=== PATIENT | female | born 1945 | race Caucasian/White ===

== ENCOUNTER 2023-04-01 05:35 | Emergency (ER) | payer MEDICARE, OTHER, SELFPAY ==
[2023-04-01 05:40] VITALS: BP 183/82; PULSE 94; RESP 18; TEMP 36.6; O2SAT 98; BMI 24.5
[2023-04-01 06:25] LABS: Appearance Urine Clear; Color Urine Yellow; Glucose Urine UA Negative (Negative); Leukocyte Esterase Urine Small (1+) (Negative); Nitrite Urine Negative (Negative); PH 6.5 (5.0-9.0); UMIC TRIGGER UACC YES; Urine Blood Negative (Negative); Urine Ketones Negative (Negative); Urine Protein Negative (Neg-Trace)
--- NOTE | 2023-04-01 06:28 | PC.NURSE ---
pt from home reporting ongoing anxiety for months. pt reports being seen at [facility] multiple times and being sent home with anxiety medications. pt reports anxiety medications have provided her with no relief. pt reports having sleepless nights, being awake for hours and wandering around. pt requesting to speak with our care team for further evaluation. pt denies si/hi. urine obtained and sent to lab.
[2023-04-01 06:32] LABS: Amphetamine Screen Urine Not Detected (Not Detect); Barbiturates, Urine POSITIVE (Not Detect); Benzodiazepines Screen Urine Not Detected (Not Detect); Cannabinoid Screen Urine POSITIVE (Not Detect); Cocaine Screen Urine Not Detected (Not Detect); Fentanyl, urine Not Detected (Not Detect); Opiate Screen Urine Not Detected (Not Detect); Phencyclidine Screen Urine Not Detected (Not Detect)
--- NOTE | 2023-04-01 06:32 | ED_ITS ---
HPI - Anxiety General Chief Complaint: Anxiety Stated Complaint: Anxiety attack Time Seen by Provider: 04/01/23 06:23 Source: patient and family Mode of arrival: ambulatory Limitations: no limitations History of Present Illness HPI narrative: Patient comes to the emergency room accompanied by her son. Patient states that she has had anxiety all her life. However, over last 2 months, her anxiety has gradually been getting worse. Patient states that yesterday she was seen at [facility], seems that she was set up with a therapist? However, this morning, patient states that she woke up very anxious, pacing, patient woke up and started walking around and screaming. Patient's son brought her to the emergency room. At this time, patient is more calm, states that she is usually very independent, does not like to depend on her son, would like to feel less anxious in function normally. Patient denies depression or suicidal/homicidal ideation Related Data Allergies Allergy/AdvReac Type Severity Reaction Status Date / Time ampicillin Allergy Rash Verified 04/01/23 05:45 morphine Allergy Rash Verified 04/01/23 05:45 Penicillins Allergy Rash Verified 04/01/23 05:45 Review of Systems 2 Review of Systems: Constitutional : No Weight loss, No Fever, No Chills, No Night Sweats, No Fatigue, No Malaise ENT/Mouth : No Hearing loss, No Ear Pain, No Nasal Congestion, No Sinus Pain, No Hoarseness, No sore throat, No Rhinorrhea, No Swallowing Difficulty Eyes: No Eye Pain, No Swelling, No Redness, No Foreign Body, No Discharge, No Vision Changes Cardiovascular : No Chest Pain, No SOB, No Dyspnea on Exertion, No Orthopnea, No Edema, No Palpitations Respiratory : No Cough, No Sputum, No Wheezing, No Smoke Exposure, No Dyspnea Gastrointestinal : No Nausea, No Vomiting, No Diarrhea, No Constipation, No abdominal Pain, No Hematochezia, No Melena Genitourinary : no irregular bleeding, No Dysuria, No Urinary Frequency, No Hematuria, No Urinary Incontinence, No Urgency, No Flank Pain, No Urinary Flow Changes, No Hesitancy Musculoskeletal : No joint pain, No Myalgias, No Joint Swelling Skin : No Skin Lesions, No rash Neuro : No Weakness, No Numbness, No Paresthesias, No Loss of Consciousness, No Dizziness, No Headache Psych : Complaining of anxiety, No Depression, No SI/HI/AH/VH, No Social Issues, Heme/Lymph: No Bruising, No Bleeding,No Lymphadenopathy Endocrine : No Polyuria, No Polydipsia, No Temperature Intolerance [facility] Past Medical History Medical History (Updated 04/01/23 @ 06:36 by Daniela Bojorquez MD) Migraines Diabetes Hypertension Anxiety Social History Social History Smoked in Last 30 Days: No Use of substances other than those prescribed or required for medical reasons: No Physical Exam 2 Vital Signs: Vital Signs: Last Vital Signs Temp 97.8 F 04/01/23 05:40 Pulse 94 04/01/23 05:40 Resp 18 04/01/23 05:40 BP 183/82 H 04/01/23 05:40 Pulse Ox 98 04/01/23 05:40 O2 Del Method Room Air 04/01/23 05:40 BMI result Body Mass Index 24.5 Const: Other: Appearance: Alert. Oriented X3. No acute distress. Eyes: Pupils equal, round and reactive to light. ENT: Pharynx normal. Neck: Normal inspection. Neck supple. No lymph nodes noted. No crepitus CVS: Normal heart rate and rhythm. Pulses normal. Normal S1 and S2 Respiratory: No respiratory distress. Breath sounds normal. No Wheezing. No rales Abdomen: Soft and nontender. No rigidity. No distention. Skin: Skin warm and dry. Normal skin color. Normal skin turgor. Extremities: No lower extremity edema. No Lacerations. No Rash Neuro: Oriented X 3. No motor deficit. No sensory deficit. Moving all extremities. No slurred speech. CN 2 through 12 grossly intact Psych: calm, cooperative, a bit anxious Course Course Course Narrative: -all of patient's labs pending -care team consult pending -patient was giving 1 dose of p.o. Ativan to help with anxiety while she waits for her results and the care team -sign-out given to Dr. Leavitt Medications Administered Discontinued Medications Generic Name Dose Route Start Last Admin Trade Name Freq PRN Reason Stop Dose Admin Lorazepam 1 mg 04/01/23 06:31 04/01/23 06:42 Lorazepam 1 Mg Tablet PO 04/01/23 06:32 1 mg ONCE ONE Administration Medical Decision Making Medical Decision Making [facility] Narrative: -my interpretation of labs: Normal white blood cell count. Mildly anemic. Patient is symptomatic. Chemistry within normal limits. Urinalysis positive for a small amount of leukocyte esterase, patient has no UTI symptoms. Unlikely to be causing chronic anxiety for months in this patient. -care team consult pending -sign-out given to Dr. Leavitt Lab Data 04/01/23 06:32 04/01/23 06:32 Labs: Lab Results 04/01/23 04/01/23 04/01/23 Range/Units 06:16 06:17 06:32 WBC 6.9 (4.8-10.8) X10*3/uL RBC 4.19 L (4.20-5.50) X10*6/uL Hgb 11.5 L (12.0-16.0) g/dl Hct 35.1 L (37.0-47.0) % MCV 83.8 (80.0-98.0) fL MCH 27.4 (27.0-33.0) pg MCHC 32.8 (31.0-35.0) g/dl RDW 14.5 (11.0-16.0) % Plt Count 232 (160-400) X10*3/uL MPV 9.2 L (9.4-12.3) fL Immature Gran % (Auto) 0.3 (0.0-0.4) % Neut % (Auto) 75.4 H (45-73) % Lymph % (Auto) 13.4 L (20-40) % [place] % (Auto) 9.9 (2-11) % Eos % (Auto) 0.6 (0-4) % Baso % (Auto) 0.4 (0-2) % Lymph # (Auto) 0.9 L (1.2-4.9) X10*3/uL [place] # (Auto) 0.7 (0.1-1.2) X10*3/uL Eos # (Auto) 0.0 (0.0-0.4) X10*3/uL Baso # (Auto) 0.0 (0.0-0.2) X10*3/uL Abs Immat Gran (auto) 0.02 (0.00-0.03) X10*3/uL Absolute Neuts (auto) 5.2 (2.0-8.3) x10*3/uL Absolute Nucleated RBC 0.000 (0.0-0.012) X10*3/uL Nucleated RBC % (auto) 0.0 (0.0-0.2) /100WBC Sodium 140 (135-145) mmol/L Potassium 4.3 (3.3-5.1) mmol/L Chloride 104 (96-108) mmol/L Carbon Dioxide 24 (22-29) mmol/L Anion Gap 16 (12-20) BUN 19 H (9-16) mg/dL Creatinine 1.12 (0.5-1.4) mg/dL Estim Creat Clear Calc 29.8 Estimated GFR 47 Random Glucose 141 H (60-115) mg/dL Calcium 9.6 (8.4-10.2) mg/dL Total Bilirubin 0.5 (0.0-1.0) mg/dL AST 15 (5-31) U/L ALT 16 (0-31) U/L Alkaline Phosphatase 69 (39-117) U/L Total Protein 7.4 (6.5-8.0) g/dL Albumin 4.5 (3.5-5.0) g/dL Urine Color Yellow Urine Appearance Clear Urine pH 6.5 (5.0-9.0) Ur Specific [place] 1.010 (1.005-1.025) Urine Protein Negative (Neg-Trace) mg/dL Urine Glucose (UA) Negative (Negative) mg/dL Urine Ketones Negative (Negative) mg/dL Urine Blood Negative (Negative) Urine Nitrite Negative (Negative) Ur Leukocyte Esterase Small (1+) H (Negative) Urine RBC 0-2 (0-2) /HPF Urine WBC 0-5 (0-5) /HPF Ur Squamous Epith Cells 3-5 (0-2) /HPF Urine Bacteria None Seen (None Seen) Hyaline Casts 0-2 (0-2) /LPF Urine Opiates Screen Not Detected (Not Detect) Urine Fentanyl Screen Not Detected (Not Detect) Ur Barbiturates Screen POSITIVE H (Not Detect) Ur Phencyclidine Scrn Not Detected (Not Detect) Ur Amphetamines Screen Not Detected (Not Detect) U Benzodiazepines Scrn Not Detected (Not Detect) Urine Cocaine Screen Not Detected (Not Detect) U Marijuana (THC) Screen POSITIVE H (Not Detect) Ethyl Alcohol < 10 mg/dL Discharge Plan Discharge Clinical Impression: Anxiety Patient Disposition: Still a Patient
[2023-04-01 06:37] LABS: Bacteria Urine None Seen (None Seen); Hyaline Casts Urine 0-2 /LPF (0-2); RBC Urine 0-2 /HPF (0-2); UACC Culture Trigger YES; WBC Urine 0-5 /HPF (0-5)
[2023-04-01 06:38] LABS: Basophils Percent Auto 0.4 % (0-2); Eosinophils Percent Auto 0.6 % (0-4); Hematocrit 35.1 % (37.0-47.0); Hemoglobin 11.5 g/dl (12.0-16.0); Imm Gran Abs Auto 0.02 X10*3/uL (0.00-0.03); Imm Gran Pct Auto 0.3 % (0.0-0.4); Lymphocytes Absolute Auto 0.9 X10*3/uL (1.2-4.9); Lymphocytes Percent Auto 13.4 % (20-40); MANUAL DIFF FLAG NO; Mean Corpuscular HGB Conc 32.8 g/dl (31.0-35.0); Mean Corpuscular Hemoglobin 27.4 pg (27.0-33.0); Mean Corpuscular Volume 83.8 fL (80.0-98.0); Mean Platelet Volume 9.2 fL (9.4-12.3); Monocytes Absolute Auto 0.7 X10*3/uL (0.1-1.2); Monocytes Percent Auto 9.9 % (2-11); Neutrophils Absolute Auto 5.2 x10*3/uL (2.0-8.3); Neutrophils Percent Auto 75.4 % (45-73); Platelet Count 232 X10*3/uL (160-400); Red Blood Count 4.19 X10*6/uL (4.20-5.50); Red Cell Distribution Width 14.5 % (11.0-16.0); White Blood Count 6.9 X10*3/uL (4.8-10.8)
[2023-04-01] MEDS: LORazepam 1 MG TABLET PO ×2 (06:42→15:11)
--- NOTE | 2023-04-01 06:45 | PC.NURSE ---
pt medicated per mar at this time.
[2023-04-01 06:54] LABS: Alanine Aminotransferase 16 U/L (0-31); Albumin Level 4.5 g/dL (3.5-5.0); Alkaline Phosphatase 69 U/L (39-117); Anion Gap 16 (12-20); Aspartate Amino Transferase 15 U/L (5-31); Bilirubin Total 0.5 mg/dL (0.0-1.0); Blood Urea Nitrogen 19 mg/dL (9-16); Calcium 9.6 mg/dL (8.4-10.2); Carbon Dioxide 24 mmol/L (22-29); Chloride 104 mmol/L (96-108); Creatinine Clr Calc Pharmacy 29.8; Estimated Glomerular Filt Rate 47; Ethanol < 10 mg/dL; Glucose Random 141 mg/dL (60-115); Potassium 4.3 mmol/L (3.3-5.1); Sodium 140 mmol/L (135-145); Total Protein 7.4 g/dL (6.5-8.0)
--- OUTSIDE RECORDS SUMMARY | 2023-04-01 07:21 | XMS_ITS | Continuity of Care Document ---
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 Role Phone Jose Kang MD Primary Care Physician Encounter [facility] Date(s): 02/20/23 - 02/20/[address] [address]- Discharge Disposition: A-D/C Home Attending Physician: Gerri Araiza MD Admitting Physician: Gerri Araiza MD Referring Physician: Not on Staff, Referring MD Allergies, Adverse Reactions, Alerts Substance Reaction Severity Status ampicillin rash Active morphine GI UPSET Active penicillins RASH Active Immunizations Given and Recorded Vaccine Date Status Refusal Reason tetanus/diphtheria/pertussis, acel(Tdap) 04/25/15 Given tetanus/diphtheria/pertussis, acel(Tdap) 07/17/07 Given influenza virus vaccine, inactivated 1 01/13/12 Gi efrain influenza virus vaccine, inactivated 02/25/11 Give n influenza virus vaccine, inactivated 2 03/23/10 Gi efrain Zostavax (oldterm) 3 05/24/10 Given Pneumococcal Poly (PPV23) (oldterm) 4 01/30/09 Giv en Influenza Virus Vaccine (oldterm) 01/25/08 Given Rabies Vaccine (oldterm) 08/07/07 Given Rabies Vaccine (oldterm) 07/24/07 Given Rabies Vaccine (oldterm) 5 07/20/07 Given Rabies Vaccine (oldterm) 07/17/07 Given Rabies Immune Globulin, Human 07/17/07 Given Diphth-Tetanus Toxoids Adsorbed(oldterm) 12/09/05 Given Pneumococcal Vaccine (oldterm) 12/09/02 Given 1Admin Note: Work 2Admin Note: Work 3Admin Note: Already had shingles 08 4Admin Note: vis sheet 08-07-08 given 5Result Comment: Lot# [id number] Exp. 2010 Medications albuterol CFC free 90 mcg/inh inhalation aerosol 2, puffs, Inhalation, Every 4 hours, PRN, use with spacer chamber, # 25 Gm, Refills 0, Tot. Refills0, Maintenance, 04/29/17 22:04:27, Aerosol, Print Requisition, Compound Start Date: 04/29/17 Stop Date: 05/06/17 Status: Ordered aspirin 81 mg oral enteric coated capsule 81, mg, 1, capsule, By Mouth, Daily, 0, 0, 12/09/05 11:19:06, Print [place] Number, [id number], Constant Indicator Start Date: 12/09/05 Status: Ordered atorvastatin 20 mg oral tablet 1 tablet = 20 mg, By Mouth, Daily, 0 Refills, Maintenance, 11/14/21 19:43:00 EDT, Partial fill uponpatient request if the prescription is for a schedule II opioid drug. Start Date: 11/14/21 Status: Ordered Breo Ellipta 100 mcg-25 mcg/inh inhalation powder INHALE 1 PUFF BY MOUTH ONCE DAILY Start Date: 11/15/21 Status: Ordered calcium and vitamin D combination 600 mg-125 u oral tablet 1, tablet, By Mouth, 2 times a day, 0, 0, 12/09/05 11:19:11, Print [place] Number, [id number], Constant Indicator Start Date: 12/09/05 Status: Ordered Freestyle Lite Monitor See Instructions, # 1 each, Refills 0, Tot. Refills 0, Maintenance, use as directed for Type 1 Diabetes Mellitus ID # [id number] Group # [id number] IN# [id number], 12/18/12 14:06:15, Compound Start Date: 12/18/12 Stop Date: 01/17/13 Status: Ordered Freestyle Lite Test Strips See Instructions, # 300 each, Refills 3, Tot. Refills 3, Maintenance, use to test blood sugars three times a day for DM, 11/29/12 11:25:39, Compound Start Date: 11/29/12 Stop Date: 03/29/13 Status: Ordered gabapentin 100 mg oral capsule 100 mg, 1, capsule, By Mouth, Daily at bedtime, Refills 0, Maintenance, 11/14/21 19:45:00 EDT, Partial fill upon patient request if the prescription is for a schedule II opioid drug. Start Date: 11/14/21 Status: Ordered glipizide 5 mg oral tablet, extended release 2 tablet = 10 mg, By Mouth, Daily, # 180 tablet, 3 Refills, Maintenance, 04/04/14 15:44:00 EST, ER Tablet, [facility] 1967 Start Date: 04/04/14 Stop Date: 03/30/15 Status: Ordered Prilosec 20 mg oral enteric coated capsule 1 capsule = 20 mg, By Mouth, Daily, # 90 capsule, 3 Refills, Maintenance, EC Capsule Start Date: 05/11/12 Stop Date: 05/06/13 Status: Ordered sertraline 100 mg oral tablet 1 tablet = 100 mg, By Mouth, Daily, # 90 tablet, 3 Refills, Maintenance, 1 tablet By Mouth Daily,x90 days Start Date: 03/06/13 Stop Date: 03/01/14 Status: Ordered Trulicity Pen 0.75 mg/0.5 mL subcutaneous solution INJECT 0.75 MG SUBCUTANEOUSLY ONCE A WEEK Start Date: 11/15/21 Status: Ordered Problem List Condition Confirmation Course Effective Dates Status Health Status Informant Anxiety and depression Confirmed Active Gastritis Confirmed Active Hypercholesterolemia Confirmed Active Hypertension Confirmed 08/03/12 Active NIDDM Confirmed Active Osteopenia Confirmed Active Results Radiology Reports * Exam Date Time Procedure Performing Provider Status 02/20/23 6:[address] Abd/Pelvis W/ IV + Oral Contrast Lesli Medrano; Elayne (Verified) Notes: (CT Abd/Pelvis W/ IV + Oral Contrast) Reason For Exam: Bowel obstruction suspected;Other: RESULT: CT Abd/Pelvis W/ IV + Oral Contrast CT Abd/Pelvis W/ IV + Oral Contrast Hx of Present Illness: Upper abd pain and bloating; Reason: Other:; Bowel obstruction suspected; Clinical Question(s): Obstruction; Order Comment: TECHNIQUE: Spiral CT through the abdomen and pelvis with IV contrast formatted in 3 planes. 75 cc of Omnipaque 300 was administered intravenously. This study was performed with oral contrast. Weight-based protocol using automatic tube modulation was used to optimize exposure parameters. CTDIvol Body: 12.90 mGy, DLP Body: 618 mGy*cm. COMPARISON: 11/14/2021. FINDINGS: Fuse Maker View Findings, Lines and Tubes: None. Visualized Chest: Unchanged linear scarring in the left lower lobe. Minimal atelectasis in right lower lobe. No pleural effusion. The heart is normal in size. Unchanged trace pericardial effusion measuring 5 mm in thickness adjacent to the left ventricle. Diaphragm: Normal. Liver: Normal. Gallbladder: No CT evidence of gallbladder pathology. Bile ducts: No biliary ductal dilation. Spleen: Normal. Pancreas: Normal. Adrenal glands: Normal. Kidneys and ureters: No hydronephrosis, stones, or suspicious masses. A subcentimeter hypodensity in the right kidney interpolar region is too small to characterize by CT. Bladder: Underdistended but appears deformed. Reproductive organs: Retroverted uterus contains coarse calcifications, likely a degenerated fibroid. Stomach, small bowel, and large bowel: Normal. Appendix: Not seen, but no evidence of appendicitis. Peritoneum and retroperitoneum: No ascites or pneumoperitoneum. No omental or mesenteric lesions. Lymph nodes: No enlarged lymph nodes. Blood vessels: Mild vascular calcifications but no aneurysm. 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 No poststenotic dilatation. No evidence of venous thrombosis. Abdominal and pelvic wall: Unremarkable. Bones: No acute abnormality. Multilevel mild to moderate degenerative disc disease, most significant in the lower thoracic spine and at L5-S1. IMPRESSION: Apparent bladder wall thickening could be due to under distention or cystitis. Otherwise, no acute abnormality in the abdomen or pelvis. Unchanged trace pericardial effusion. WSN: [id number] Ordering Physician: Edwige Skinner Dictated By: Clinton Upton MD Dictated Date/Time: 02/20/23 6:30 pm Reviewed By: Clinton Upton MD Signed By: Clinton Upton MD Signed Date/Time: 02/20/23 6:30 pm Transcribed By: KATERYNA Transcribed Date/Time: 02/20/23 6:24 pm Vital Signs Most recent to oldest [Reference Range]: 1 2 3 Height 145 cm (02/20/23 9:11 PM) 145 cm (02/20/23 6:55 PM) 145 cm (02/20/23 10:40 AM) Oxygen Saturation [94-100 %] 96 % (02/20/23 9:11 PM) 97 % (02/20/23 6:55 PM) 97 % (02/20/23 12:45 PM) Pulse Rate [55-90 bpm] 91 bpm *H* (02/20/23 9:11 PM) 81 bpm (02/20/23 6:55 PM) 90 bpm (02/20/23 12:45 PM) Blood Pressure [90-138/55-84 mm Hg] 153/86mm Hg *H* (02/20/23 9:11 PM) 167/87mm Hg *H* (02/20/23 6:55 PM) 169/79mm Hg *H* (02/20/23 12:45 PM) Respiratory Rate [16-30 br/min] 16 br/min (02/20/23 9:11 PM) 18 br/min (02/20/23 6:55 PM) 18 br/min (02/20/23 12:45 PM) Temperature [96.8-100.4 DegF] 98.8 DegF (02/20/23 9:11 PM) 98.5 DegF (02/20/23 6:55 PM) 98.8 DegF (02/20/23 12:45 PM) Mode of Delivery (Oxygen) Room air (02/20/23 9:11 PM) Room air (02/20/23 6:55 PM) Room air (02/20/23 12:45 PM) Blood pressure sites Arm, left (02/20/23 9:11 PM) Arm, right (02/20/23 6:55 PM) Arm, left (02/20/23 12:45 PM) Temperature Route Oral (02/20/23 9:11 PM) Oral (02/20/23 6:55 PM) Oral (02/20/23 12:45 PM) Dry Weight 54.5 kg (02/20/23 9:11 PM) 54.5 kg (02/20/23 6:55 PM) 54.5 kg (02/20/23 10:40 AM) Social History Social History Type Response Smoking Status Former smoker entered on: 09/23/14 Sex Note * Edwige Correa: PERFORM Event Display: Patient Education Leaflets Authored Date: [id number] Diabetic Gastroparesis ?? [id number] Diabetic Gastroparesis Gastroparesis,??or??delayed gastric emptying,??is when food moves through the stomach more slowly than normal. In someone with diabetes, it???s caused by damage to the vagus nerve because of chronic high blood sugar. (Other chronic diseases may also cause gastroparesis.) The vagus nerve helps control how food moves through the digestive system. When this nerve is damaged, the movement of food is slowed down or stopped. Food that stays in the stomach for too long can cause problems. Food can ferment in the stomach, causing bacteria to grow. Undigested food can also harden into masses called bezoars. These can cause nausea and vomiting. In some cases, they may block food from passing from the stomach to the small intestine. Gastroparesis can make it hard to manage blood sugar levels. That's because it is hard to predict when a meal will actually leave the stomach to be digested. It can also cause problems with vitamins and minerals being absorbed into the body as well as maintaining a healthy weight. Symptoms of diabetic gastroparesis are: ??? Nausea ??? Vomiting ??? Feeling full after eating a small amount of food ??? Stomach??pain or cramps ??? Heartburn ??? Stomach??bloating ??? Weight loss ??? Loss of appetite ??? High or low bloodsugar levels There are several different tests and studies that can??help diagnose gastroparesis. For many people, gastroparesis is a lifelong health problem. Managing it will likely include changes in how you eat. You may be prescribed medicine to help with blood sugar levels,??help your symptoms like nausea and vomiting, or act on muscles in the digestive system. Certain medicines??that are otherwise very effective for diabetes can make gastroparesis worse and shouldn't be taken.??In severecases, surgery to put in??a feeding tube may be needed. Or a special device may be implanted to encourage the stomach muscles to contract. Home care These changes may help ease??your symptoms: ??? Take prescribed medicines exactly as directed. ??? Eat a liquid or soft diet if advised. ??? Eat frequent small meals instead of less frequent large meals. ??? Stay away from??foods that are high in fat??(such as whole milk, cheese, and fried foods)??or fiber??(such as beans, and many fruits and vegetables). These can slow digestion. ??? Always control your blood sugar levels as well as possible as directed by your healthcare provider. ?? Follow-up care Follow up with your healthcare provider as advised. Regular visits may be needed to manage gastroparesis. ?? When to get medical advice Call your healthcare provider right away if any of these occur: ??? Severe pain in your belly (abdomen) ??? Inability to keep down food or liquids ??? Weight loss ??? Other symptoms as directed by your healthcare provider ?? Last Reviewed Date: 2021 ?? [id number] [employer]. All rights reserved. This information is not intended as a substitute for professional medical care. Always follow your healthcare professional's instructions. ?? Patient Care team information Care Team Personnel Name: Jose Kang MD Position: [facility] Outreach Member Role: PCP Address: Address: [address] [place] [id number]- Name: Kaley Martinez Position: [facility] Outreach Member Role: Lifetime Consulting Physician Name: Liberty Marrero RN Position: [facility] RN Member Role: Primary Care Nurse Name: Masood Dougherty Position: [facility] ED TA [facility] Member Role: Patient Care Provider Name: Gerri Araiza MD Position: [facility] ED Medicine MD Member Role: Admitting Physician Address: Address: [address] [place] [id number]- Name: Libia Tabor RN Position: [facility] ED RN W/OE and Tasks Member Role: Patient Care Provider Name: Edwige Correa Position: [facility] Associate Professional Member Role: ED Physician Jig Builder Address: Address: [address] [place] [id number]- Name: Jevon CISNEROS , Maxime Billy Position: [facility] Physician - Infectious Disease Med Service: Infectious Disease Address: Address: [address] [place] [id number]- Name: Gerri Carter Position: [facility] ED TA [facility] Member Role: Patient Care Provider Care Team Related Persons Name: SHIVA MIRAMONTES Name: TYLER WEST Address: home [address] [place] [id number]
--- OUTSIDE RECORDS SUMMARY | 2023-04-01 07:21 | XMS_ITS | Continuity of Care Document ---
Author Name Unknown Organization [facility] ter Address [address] [place] [address]- Care Team Providers Care Loan Servicing Officer Name Role Phone Jose Kang MD Primary Care Physician Encounter [facility] Date(s): 12/10/20 - 12/10/[address] [address]- Encounter Diagnosis Back pain(Final) - 12/10/20 Discharge Disposition: A-D/C Home Attending Physician: Angela Gong MD Admitting Physician: Angela Gong MD Referring Physician: Not on Staff, Referring [...] Note: Work 3Admin Note: Already had shingles 4Admin Note: vis sheet 4-16-09 given 5Result Comment: Lot# [id number] Exp. 2010 Medications albuterol CFC free 90 [...] 0, 0, 12/09/05 11:19:06, Print [place] Number, [id number], Constant Indicator Start Date: 12/09/05 Status: Ordered calcium and vitamin D combination 600 mg-125 u oral tablet 1, tablet, By Mouth, 2 times a day, 0, 0, 12/09/05 11:19:11, Print [place] Number, [id number], Constant Indicator Start Date: 12/09/05 Status: Ordered Colace sodium 100 mg oral capsule 100 mg, 1, capsule, By Mouth, 2 times a day, Refills 0, Maintenance, 10/07/15 14:57:33 Start Date: 10/07/15 Status: Ordered ferrous sulfate 325 mg oral tablet 1 tablet = 325 mg, By Mouth, 3 times a day, 0 Refills, Maintenance, 10/07/15 14:55:48 Start Date: 10/07/15 Status: Ordered Flonase 50 mcg/inh nasal spray 1 sprays, Nares, Both, 2 times a day, # 3 each, 3 Refills, Maintenance, [place] Start Date: 08/03/12 Stop Date: 12/01/12 Status: Ordered Freestyle Lite Monitor See Instructions, # 1 each, Refills 0, Tot. Refills 0, Maintenance, use as directed for Type 1 Diabetes Mellitus ID # [id number] Group # [id number] IN# [id number], 12/18/12 14:06:15, Compound Start Date: 12/18/12 Stop Date: 01/17/13 Status: Ordered Freestyle Lite Test Strips See Instructions, # 300 each, Refills 3, Tot. Refills 3, Maintenance, use to test blood sugars three times a day for DM, 11/29/12 11:25:39, Compound Start Date: 11/29/12 Stop Date: 03/29/13 Status: Ordered glipizide 5 mg oral tablet, extended release 1 tablet = 5 mg, By Mouth, Daily, # 90 tablet, 3 Refills, Maintenance, 04/04/14 15:44:00, ER Tablet, 1 tablet By Mouth Daily,x90 days Start Date: 04/04/14 Stop Date: 03/30/15 Status: Ordered lisinopril 30 mg oral tablet 1 tablet = 30 mg, By Mouth, Daily, # 90 tablet, 2 Refills, Maintenance, 03/18/14 16:40:14, Tablet, 1 tablet By Mouth Daily,x90 days Start Date: 03/18/14 Stop Date: 12/13/14 Status: Ordered metformin 1000 mg oral tablet 1 tablet = 1,000 mg, By Mouth, 2 times a day, # 180 tablet, 3 Refills, Maintenance, 06/02/14 10:58:34, 1 tablet By Mouth 2 times a day,x90 days Start Date: 06/02/14 Stop Date: 05/28/15 Status: Ordered Pravachol 20 mg oral tablet 1 tablet, By Mouth, Daily, # 30 tablet, 11 Refills, Maintenance, 01/15/15 14:41:19, 1 tablet By Mouth Daily Start Date: 01/15/15 Stop Date: 01/10/16 Status: Ordered Prilosec 20 mg oral enteric [...] Date: 03/06/13 Stop Date: 03/01/14 Status: Ordered Vitamin B12 500 mcg/mL injectable solution 0 Refills, Maintenance, 10/07/15 14:56:01 Start Date: 10/07/15 Status: Ordered Problem List Condition Effective Dates Status Health Status Inform ant Anxiety and depression(Confirmed) Active Gastritis(Confirmed) Active Hypercholesterolemia(Confirmed) Active Hypertension(Confirmed) 08/03/12 Active NIDDM(Confirmed) Active Osteopenia(Confirmed) Active Vital Signs Most recent to oldest [Reference Range]: 1 2 3 Oxygen Saturation [94-100 %] 99 % (12/10/20 3:34 PM) 99 % (12/10/20 12:59 PM) 97 % (12/10/20 10:04 AM) Pulse Rate [55-90 bpm] 67 bpm (12/10/20 3:34 PM) 76 bpm (12/10/20 12:59 PM) 86 bpm (12/10/20 10:04 AM) Blood Pressure [90-138/55-84 mm Hg] 133/72mm Hg (12/10/20 3:34 PM) 117/72mm Hg (12/10/20 12:59 PM) 124/79mm Hg (12/10/20 10:04 AM) Respiratory Rate [16-30 br/min] 17 br/min (12/10/20 3:34 PM) 17 br/min (12/10/20 12:59 PM) 18 br/min (12/10/20 10:04 AM) Temperature [96.8-100.4 DegF] 97.7 DegF (12/10/20 3:34 PM) 98.1 DegF (12/10/20 12:59 PM) 98.7 DegF (12/10/20 10:04 AM) Mode of Delivery (Oxygen) Room air (12/10/20 3:34 PM) Room air (12/10/20 12:59 PM) Room air (12/10/20 10:04 AM) Blood pressure sites Arm, right (12/10/20 3:34 PM) Arm, left (12/10/20 10:04 AM) Temperature Route Oral (12/10/20 3:34 PM) Oral (12/10/20 12:59 PM) Oral (12/10/20 10:04 AM) Social History Social History Type Response Smoking Status Former smoker entered on: 09/23/14 Sex
--- OUTSIDE RECORDS SUMMARY | 2023-04-01 07:21 | XMS_ITS | Continuity of Care Document ---
Author Name Unknown Organization [facility] ter Address [address] [place] [id number]- Care Team Providers Care Certified Nurses Aide Name Role Phone Jose Kang MD Primary Care Physician ( [phone] Encounter [facility] Date(s): 11/14/21 - 11/15/[address] [address]- Encounter Diagnosis Acute kidney injury(Final) - 11/14/21 Hyperkalemia(Final) - 11/14/21 Discharge Disposition: A-D/C Home Attending Physician: Giselle Goss MD Admitting Physician: Carlota Alonso MD Referring Physician: Not on Staff, Referring MD Allergies, Adverse Reactions, Alerts Substance Reaction Severity Status ampicillin rash Active penicillins RASH Active morphine GI UPSET Active Immunizations Given and Recorded Vaccine Date [...] had shingles 08 4Admin Note: vis sheet 4-16-09 given 5Result Comment: Lot# [id number] Exp. 2010 Medications albuterol CFC free 90 [...] 0, 0, 12/09/05 11:19:06, Print [place] Number, [id number], Constant Indicator Start Date: 12/09/05 Status: Ordered [...] 0, 0, 12/09/05 11:19:11, Print [place] Number, [id number], Constant Indicator Start Date: 12/09/05 Status: Ordered Freestyle Lite Monitor See Instructions, # 1 each, Refills 0, Tot. Refills 0, Maintenance, use as directed for Type 1 Diabetes Mellitus ID # [id number] Group # [id number] IN# [id number], 12/18/12 14:06:15, Compound Start Date: 12/18/12 Stop [...] Refills, Maintenance, 04/04/14 15:44:00 EST, ER Tablet, [facility] 1965 Start Date: 04/04/14 Stop Date: [...] Date: 11/15/21 Status: Ordered Problem List Condition Effective Dates Status Health Status Inform ant Anxiety and depression(Confirmed) Active Gastritis(Confirmed) Active Hypercholesterolemia(Confirmed) Active Hypertension(Confirmed) 08/03/12 Active NIDDM(Confirmed) Active Osteopenia(Confirmed) Active Vital Signs Most recent to oldest [Reference Range]: 1 2 3 Oxygen Saturation [94-100 %] 100 % (11/15/21 3:00 PM) 97 % (11/15/21 11:00 AM) 98 % (11/15/21 8:00 AM) Pulse Rate [55-90 bpm] 59 bpm (11/15/21 3:00 PM) 78 bpm (11/15/21 11:00 AM) 67 bpm (11/15/21 8:00 AM) Blood Pressure [90-138/55-84 mm Hg] 106/68mm Hg (11/15/21 3:00 PM) 110/74mm Hg (11/15/21 11:00 AM) 113/67mm Hg (11/15/21 8:00 AM) Respiratory Rate [16-30 br/min] 18 br/min (11/15/21 3:00 PM) 18 br/min (11/15/21 11:00 AM) 18 br/min (11/15/21 9:00 AM) Temperature [96.8-100.4 DegF] 97.8 DegF (11/15/21 3:00 PM) 98 DegF (11/15/21 11:00 AM) 97.6 DegF (11/15/21 8:00 AM) Liters per Minute 0 L/min (11/13/21 2:52 PM) Mode of Delivery (Oxygen) Room air (11/15/21 3:00 PM) Room air (11/15/21 11:00 AM) Room air (11/15/21 8:00 AM) Blood pressure sites Arm, right (11/15/21 3:00 PM) Arm, right (11/15/21 11:00 AM) Arm, right (11/15/21 8:00 AM) Temperature Route Oral (11/15/21 3:00 PM) Oral (11/15/21 11:00 AM) Oral (11/15/21 8:00 AM) Social History Social History Type Response Smoking Status Former smoker entered on: 09/23/14 Sex
--- OUTSIDE RECORDS SUMMARY | 2023-04-01 07:22 | XMS_ITS | Continuity of Care Document ---
Author Name Unknown Organization [facility] ter Address [address] [place] [id number]- Care Team Providers Care Casing Machine Operator Name Role Phone Jose Kang MD Primary Care Physician Encounter [facility] Date(s): 10/06/21 - 10/06/[address] [address] Discharge Disposition: A-D/C Home Attending Physician: Funmi Villalobos MD Admitting Physician: Funmi Villalobos MD Referring Physician: Tobias Mari MD Allergies, Adverse Reactions, Alerts Substance Reaction [...] vis sheet 4-16-09 given 5Result Comment: Lot# [id number] Exp. 2010 Medications albuterol CFC free 90 [...] 0, 0, 12/09/05 11:19:06, Print [place] Number, [id number], Constant Indicator Start Date: 12/09/05 Status: Ordered calcium and vitamin D combination 600 mg-125 u oral tablet 1, tablet, By Mouth, 2 times a day, 0, 0, 12/09/05 11:19:11, Print [place] Number, [id number], Constant Indicator Start Date: 12/09/05 Status: Ordered [...] day, # 3 each, 3 Refills, Maintenance, [place] Start Date: 08/03/12 Stop Date: 12/01/12 Status: Ordered Freestyle Lite Monitor See Instructions, # 1 each, Refills 0, Tot. Refills 0, Maintenance, use as directed for Type 1 Diabetes Mellitus ID # [id number] Group # [id number] IN# [id number], 12/18/12 14:06:15, Compound Start Date: 12/18/12 Stop [...] Hypertension(Confirmed) 08/03/12 Active NIDDM(Confirmed) Active Osteopenia(Confirmed) Active Social History Social History Type Response Smoking Status Former smoker entered on: 09/23/14 Sex
[2023-04-01 07:37] VITALS: BP 132/67; PULSE 80; RESP 16; TEMP 36.9; O2SAT 95
--- NOTE | 2023-04-01 07:42 | PC.NURSE ---
assumed care of pt at 0700. pt a&o x4, pleasant, calm, and cooperative. pt resting quietly on stretcher, sts her anxiety has decreased since arriving here and taking ativan. pt sts I don't want to swallow my tongue anymore . pt offers no complaints dank. rr even/unlabored. call joseph within pt reach. plan of care ongoing. awaiting care team consult.
[2023-04-01 14:27] VITALS: BP 154/94; PULSE 88; RESP 18; O2SAT 95
[2023-04-01 15:23] VITALS: BP 164/88; PULSE 90; RESP 16; TEMP 37; O2SAT 98
--- NOTE | 2023-04-01 15:27 | MHC.EDTECH ---
this pct assumed care of pt at 1500 ,vitals taken and blood sugar check ,Patient belongings list done .
--- NOTE | 2023-04-01 15:30 | PC.NURSE ---
pt c/o anxiousness, asking for something to help calm down. pt medicated with ativan per jun. pt resting quietly. pt told t/w she is a diabetic. poc taken 103. pt asking for something to eat but sts she cannot have solids because she has difficulty tolerating. asking for something soft/thick. diabetic diet placed.
--- NOTE | 2023-04-01 16:01 | PC.NURSE ---
pt med rec completed. pt currently sleeping on stretcher, in no apparent distress. rr even/unlabored. call joseph within pt reach.
[2023-04-01 17:05] LABS: Glucose, Whole Blood 103 mg/dL (60-115)
[2023-04-01 17:51] LABS: Glucose, Whole Blood 72 mg/dL (60-115)
--- NOTE | 2023-04-01 17:53 | PC.NURSE ---
poc noted to be trending lower. called kitchen to request expedited tray with ensure for pt since she cannot tolerate solids dank. in meantime pt provided with pudding. pt within eye of t/w. pt speaking in full complete sentences, color normal, appears well. wctm. plan of care ongoing.
--- NOTE | 2023-04-01 18:04 | MHC.CARE ---
Patient accepted to [facility] ([phone]) at [address] [place] for admission at 7:00 pm tonight, must have medications in original bottles.
[2023-04-01 19:37] VITALS: BP 136/74; PULSE 76; RESP 16; TEMP 36.1; O2SAT 97
--- NOTE | 2023-04-01 19:50 | MHC.EDTECH ---
Patient ate 50 % of meal drink 240 ml fluids ,vitals taken before Pt discharge .
== END 2023-04-01 19:53 | disposition other institution (70) ==
PROVIDERS: Emergency Provider Emergency Medicine; PCP Internal Medicine
DX: F41.9 Anxiety disorder, unspecified (principal); R82.90 Unspecified abnormal findings in urine; D64.9 Anemia, unspecified; I10 Essential (primary) hypertension; E11.9 Type 2 diabetes mellitus without complications; F12.90 Cannabis use, unspecified, uncomplicated; Z79.899 Other long term (current) drug therapy
CPT/HCPCS: 36415; 80053; 80307; 81001; 82947; 85025; 87086; 99284; S9485

== ENCOUNTER 2024-10-08 11:11 | Outpatient (REF) | payer OTHER, SELFPAY ==
--- OUTSIDE RECORDS SUMMARY | 2024-10-08 12:54 | XMS_ITS | Clinical Summary ---
Author Organization [facility] Address [address] [place] [address] Care Team Providers Care Landscaping Specialist Name Role Phone Unavailable Primary Care Provider Unavailabl e Source Comments PLEASE NOTE, if this patient is a minor, it may be UNLAWFUL to discuss sensitive information that is contained in these records (such as FAMILY PLANNING, MENTAL HEALTH or SUBSTANCE ABUSE) with the minor patient's parent or other person without the patient's specific authorization.[facility] Medications No known medications Active Problems No known active problems Encounters Date Type Department Care Team Description 09/03/2024 3:40 PM EDT Office Visit [address] [phone] Milan Lu DDS Abfraction (Primary Dx) 08/02/2024 10:00 AM EDT Office Visit [address] [phone] Marcin Carcamo Bruxism (teeth grinding) (Primary Dx); Abfraction; 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 from Last 3 Months Social History Tobacco Use Types Packs/Day Years Used Date Smoking Tobacco: Former Cigarettes Passive Smoke Exposure: Never Smokeless Tobacco: Never Tobacco Cessation:Counseling Given: Not Answered Social Connections Answer Date Recorded Connectedness 0 01/11/2024 Financial Resource Strain Answer Date R ecorded Financial Resource Strain 0 2022 Stress Answer Date Recorded Stress 0 12/09/2022 Physical Activity Answer Date Recorded Physical Activity 0 12/09/2022 Food Insecurity Answer Date Recorded Food 0 01/18/2024 Transportation Needs Answer Date Record ed Transportation 0 12/09/2022 Housing Stability Answer Date Recorded Housing 0 12/09/2022 Safety and Environment Answer Date Alexei rded Safety 0 12/09/2022 Utilities Answer Date Recorded Utilities 0 12/09/2022 Employment Answer Date Recorded Stress 0 01/11/2024 Comments Unknown Sex and Gender Information Value Date Recorded Sex Assigned at Not on file Legal Sex Female 11:30 AM PDT Gender Identity Not on file Sexual Orientation Not on file Last Filed Vital Signs Vital Sign Reading Time Taken Comments Blood Pressure 153/87 09/03/2024 3:47 PM EDT Pulse 91 09/03/2024 3:47 PM EDT Temperature - - Respiratory Rate - - Oxygen Saturation - - Inhaled Oxygen Concentration - - Weight - - Height - - Body Mass Index - - Plan of Treatment Upcoming Encounters Date Type Department Care Team (Late st Contact Info) Description 02/04/2025 10:20 AM EDT Office Visit [facility] [address] [place] [phone] Yash Garcias, [facility] [address] [place] [address] Health Maintenance Due Date Last Done Comments Hepatitis C Screening 1945 Medicare Annual Wellness Visit 12/24/1965 Imm-Zoster, Recombinant (2 of 3) 07/19/2010 05/24/19 11 Bone Density Screening 12/24/2012 Falls Prevention 12/24/2012 Dental BW 12/12/2023 12/09/2022 [id number] ( season) 2023 021 Alcohol and Drug Screen 04/24/2024 Depression Annual Screen 04/24/2024 Imm-Influenza (Season Ended) 12/23/202408/2022, 01/05/2022, 01/21/2021, Additional history exists Tobacco Screening 08/02/2025 08/02/2024 Dental Examination 08/04/2025 08/02/2024, 12/09/2022 Dental Perio Charting 08/04/2025 08/02/2024 Dental Prophy 08/04/2025 08/02/2024, 12/09/2022 Hypertension Screening (#1) 09/03/2025 Imm-DTaP/Tdap/Td (4 - Td or Tdap) 10/20/2027 10/19/2017, 04/25/2015, 07/17/2007 Dental FMX/Pano 12/12/2027 12/09/2022 Imm-Pneumococcal 65+ Completed 01/17/2019, 03/12/2015, 01/30/2009, Additional history exists Procedures Procedure Name Priority Date/Time Associated Diagnosis Comments 7 F(V) RESIN-BASED COMPOSITE ONE SURFACE ANTERIOR Routine 09/03/2024 3:40 PM EDT Abfraction 6 F(V) RESIN-BASED COMPOSITE ONE SURFACE ANTERIOR Routine 09/03/2024 3:40 PM EDT Abfraction 5 B(V) RESIN-BASED COMPOSITE - ONE SURFACE POSTERIOR Routine 09/03/2024 3:40 PM EDT Abfraction 9 F(V) RESIN-BASED COMPOSITE ONE SURFACE ANTERIOR Routine 09/03/2024 3:40 PM EDT Abfraction 8 F(V) RESIN-BASED COMPOSITE ONE SURFACE ANTERIOR Routine 09/03/2024 3:40 PM EDT Abfraction PERIODIC ORAL EVALUATION ESTABLISHED PATIENT Routine 08/02/2024 10:00 AM EDT Bruxism (teeth grinding) 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 DENTAL CASE MANAGEMENT - MOTIVATIONAL INTV Routine 08/02/2024 10:00 AM EDT Bruxism (teeth grinding) 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 PROPHYLAXIS - ADULT Routine 08/02/2024 1 0:00 AM EDT Bruxism (teeth grinding) 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 COMP PERIODONTAL EVALUATION - NEW/EST PATIENT Routine 08/02/2024 10:00 AM EDT Bruxism (teeth grinding) 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 CARIES RISK ASSESSMENT & DOC FINDING HIGH RISK Routine 08/02/2024 10:00 AM EDT Bruxism (teeth grinding) 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 NUTRITIONAL COUNSELING CONTROL OF DENTAL DISEASE Routine 08/02/2024 10:00 AM EDT Bruxism (teeth grinding) 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 ORAL HYGIENE INSTRUCTIONS Routine 08/02/2024 10:00 AM EDT Bruxism (teeth grinding) 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 - [facility]
== END 2024-10-08 11:12 | disposition home or self-care (01) ==
LOC: HO.LAB 11:11
PROVIDERS: PCP Internal Medicine; Visit Provider Psychiatry & Neurology Neurology
DX: Z13.89 Encounter for screening for other disorder (principal)

== ENCOUNTER 2024-10-10 10:01 | Outpatient (REF) | payer OTHER, SELFPAY ==
[2024-10-10 10:48] LABS: Estimated Average Glucose 163 mg/dL; Hemoglobin A1c % 7.3 % (<6.0)
--- OUTSIDE RECORDS SUMMARY | 2024-10-10 11:16 | XMS_ITS | Continuity of Care Document ---
Author Name Elpidio Medina Address [address] [place] [id number] Organization Unknown Address [address] [place] [address] Medications No known medications Problems No known problems
[2024-10-10 11:58] LABS: Iron 60 mcg/dL (30-160); Percent Iron Saturation 25 % (15-50); Total Iron Binding Capacity 238 mcg/dL (228-428); Unsaturated Iron Binding 178 ug/dL
== END 2024-10-10 10:02 | disposition home or self-care (01) ==
LOC: HO.LAB 10:01
PROVIDERS: PCP Internal Medicine; Visit Provider Psychiatry & Neurology Neurology
DX: G62.9 Polyneuropathy, unspecified (principal); Z13.1 Encounter for screening for diabetes mellitus
CPT/HCPCS: 36415; 83036; 83540

== ENCOUNTER 2024-10-20 18:39 | Inpatient (IN) | payer OTHER, SELFPAY ==
--- NOTE | ~2024-10-20 | CT_ITS ---
CLINICAL HISTORY: fall with injury --- Additional Notes or Special Instructions: and neck CT of the head without contrast. No comparison. Findings: There are [id number] nonspecific white matter changes. No acute hemorrhage or definite acute infarct is seen. There is no hydrocephalus or mass effect. Impression: No acute hemorrhage. This document has been electronically signed by: Richard Cespedes MD on 11/04/2024 17:42:15
--- NOTE | ~2024-10-20 | XR_ITS ---
EXAMINATION: XR ABDOMEN 1 VIEW (KUB) HISTORY: constipation COMPARISON: There are no prior studies available for comparison. FINDINGS: A single supine view of the abdomen is submitted. The bowel gas pattern is unremarkable, without evidence of mechanical obstruction. There is a large amount of stool throughout the colon. Calcifications in the left hemipelvis likely represent uterine fibroids. There are no abnormal soft tissue masses. There is degenerative disc disease of the spine. XR/XR KUB IMPRESSION: Large amount of stool throughout the colon. Electronically signed by: Sam Saini MD 11/06/2024 09:34 AM EDT
--- NOTE | ~2024-10-20 | XR_ITS ---
EXAMINATION: XR HIP 1 VIEW LEFT WITH PELVIS HISTORY: Fall with pain COMPARISON: There are no prior studies available for comparison. FINDINGS: Two AP views of the pelvis and two views of the left hip are submitted. Osseous mineralization is normal. There is no fracture or dislocation. The joint space is maintained. Calcifications in the left hemipelvis are likely related to a uterine fibroid. XR/XR hip LT w PEL1V IMPRESSION: Unremarkable examination of the left hip. Electronically signed by: Sam Saini MD 11/05/2024 11:13 AM EDT
--- NOTE | ~2024-10-20 | CT_ITS ---
CLINICAL HISTORY: Fall, head injury CT of the cervical spine without contrast. No comparison. Findings: No acute fractures are seen. There are prominent degenerative changes. There is minimal anterior subluxation of C7 on T1. There is prominent multilevel spinal and foraminal stenosis. There are changes of emphysema. Impression: No acute fractures. This document has been electronically signed by: Richard Cespedes MD on 11/04/2024 18:06:34
--- NOTE | ~2024-10-20 | XR_ITS ---
CLINICAL HISTORY: congestion, cough, dec O2 sat Exam: PA and lateral views of the chest. Comparison: CT of the abdomen November 02, 2024. Findings: Lungs are well inflated. Cardiac silhouette is within normal limits. Hazy areas of focal increased density are seen within the right perihilar region, likely within the right middle lobe. No infiltrates within the left lung. Question tiny bilateral pleural effusions versus pleural thickening. Impression: Hazy right middle lobe density most characteristic of focal pneumonitis. This document has been electronically signed by: Cosme Lara MD on 12/14/2024 10:15:25
--- NOTE | ~2024-10-20 | CT_ITS ---
EXAMINATION: CT HEAD WITHOUT IV CONTRAST HISTORY: post fall SANDOVAL/? intracranial bleed. TECHNIQUE: Unenhanced helical CT of the head was performed per standard departmental protocol. Coronal and sagittal reformats of the head were also evaluated. One or more of the following techniques was used for dose reduction: Automated exposure control, adjustment of the mA and/or kV according to patient size, use of iterative reconstruction technique. DLP: 635 mGy-cm COMPARISON: Comparison is made with the prior examination dated 11/04/2024. FINDINGS: BRAIN: There is mild prominence of the ventricular system and cortical sulci, consistent with atrophy. Periventricular and subcortical white matter hypodensities are noted which are nonspecific, but often seen in the setting of small vessel ischemic disease. There is no mass effect or midline shift. No intra- or extra-axial fluid collections are identified. SINUSES: The visualized paranasal sinuses are clear. The mastoid air cells and middle ear cavities are well pneumatized. ORBITS: The visualized orbits are unremarkable. BONES/SOFT TISSUES: There is left frontal soft tissue swelling.. The calvarium is intact. No suspicious lytic or sclerotic lesions. CT/CT head/brain wo IV con IMPRESSION: Left frontal soft tissue swelling. No acute intracranial abnormality. Electronically signed by: Sam Saini MD 11/08/2024 03:18 PM EDT
--- NOTE | ~2024-10-20 | CT_ITS ---
CLINICAL HISTORY: abdominal pain, N V CT ABDOMEN AND PELVIS WITHOUT CONTRAST COMPARISON: None provided. FINDINGS: Lack of IV contrast lowers the sensitivity of the exam. No evidence of a small-bowel obstruction. No free air. Jztcyvec-tj-gorqd amount of stool is noted within the colon. No pericolonic inflammation. Post appendectomy changes are present. Moderate amount of stool is noted in the rectum. Images of the lung bases demonstrate mild bibasilar atelectasis. Small pericardial effusion is noted. Distal esophagus is underdistended which limits assessment. Stomach is mildly distended with enteric contents and some gas. No focal liver lesion. Gallbladder is underdistended. No visible stone. There is mild prominence of the pancreatic duct without focal lesion. No CT evidence of acute pancreatitis. Duodenal diverticulum is noted. Spleen is unremarkable. Mild thickening of the adrenal glands is noted. Mild nonspecific perinephric stranding is noted bilaterally. No renal calculi for hydronephrosis. No calculi in the ureters and urinary bladder. Calcified phleboliths are noted in the pelvis. Urinary bladder is underdistended which limits assessment. Retroverted uterus is noted. Calcifications within the uterus measure approximately 1.1 cm in aggregate on sagittal image 54 and suggest a small fibroid or fibroids. Calcific plaque is noted in the abdominal aorta, without evidence of an aneurysm. No lymphadenopathy. No evidence of a bowel containing hernia. Bone windows demonstrate degenerative changes in the hips and visualized spine. IMPRESSION: 1. No evidence of a bowel obstruction or free air. No pericolonic inflammation. 2. Kniweduy-wb-tzygx amount of stool in the colon. Moderate amount of stool in the rectum. 3. Mild bibasilar atelectasis. Small pericardial effusion. 4. There is a small uterine fibroid or fibroids. 5. Additional findings are detailed above. This document has been electronically signed by: Baudilio Birch M.D. on 11/02/2024 22:23:50
[2024-10-20 19:12] VITALS: BP 146/60; PULSE 102; O2SAT 96
[2024-10-20 19:21] VITALS: BP 103/39; PULSE 93; RESP 20; TEMP 36.9; O2SAT 96; BMI 21.9
[2024-10-20 20:09] LABS: Appearance Urine Clear; Glucose Urine UA Negative (Negative); PH 7.0 (5.0-9.0); Specific Gravity - Urine 1.010 (1.005-1.025); UMIC TRIGGER UACC YES
[2024-10-20 20:14] LABS: UACC Culture Trigger YES
[2024-10-20 20:20] LABS: Cannabinoid Screen Urine Not Detected (Not Detect)
[2024-10-20 21:50] LABS: Hematocrit 31.3 % (37.0-47.0); Hemoglobin 10.8 g/dl (12.0-16.0); Imm Gran Abs Auto 0.02 X10*3/uL (0.00-0.03); Imm Gran Pct Auto 0.3 % (0.0-0.4); Lymphocytes Absolute Auto 2.3 X10*3/uL (1.2-4.9); MANUAL DIFF FLAG NO; Mean Corpuscular HGB Conc 34.5 g/dl (31.0-35.0); Mean Corpuscular Hemoglobin 29.6 pg (27.0-33.0); Mean Corpuscular Volume 85.8 fL (80.0-98.0); NRBC Abs Auto 0.000 X10*3/uL (0.0-0.012); NRBC Pct Auto 0.0 /100WBC (0.0-0.2); Platelet Count 213 X10*3/uL (160-400); Red Blood Count 3.65 X10*6/uL (4.20-5.50); White Blood Count 7.6 X10*3/uL (4.8-10.8)
[2024-10-20 22:03] LABS: Anion Gap 13 (12-20); Blood Urea Nitrogen 33 mg/dL (9-16); Calcium 9.3 mg/dL (8.4-10.2); Carbon Dioxide 23 mmol/L (22-29); Chloride 108 mmol/L (96-108); Creatinine Clr Calc Pharmacy 26.9; Estimated Glomerular Filt Rate 46; Potassium 4.2 mmol/L (3.3-5.1); Sodium 140 mmol/L (135-145)
--- NOTE | 2024-10-20 23:27 | ED.PSYCH ---
HPI - Psych General Chief Complaint: Psychiatric Symptoms Stated Complaint: DEPRESSIVE THOUGHT HX2YRS PLAN TO OVERDOSE Time Seen by Provider: 10/20/24 20:52 Source: patient and EMS Mode of arrival: EMS Limitations: no limitations History of Present Illness ED Provider: Dr. Daniela Bojorquez HPI Narrative: patient comes to the emergency room via ambulance from home. According to EMS, patient lives at home alone, her son was at home with her and patient made SI statements. Therefore, the patient called 911. On arrival to the emergency room, patient states that she was angry today, denies SI or HI. Patient states that she wants to go home to take care of her dog Related Data Home Medications ?Medication ?Instructions ?Recorded ?Confirmed atorvastatin 20 mg tablet 20 mg PO DAILY 04/01/23 10/21/24 ondansetron HCl 4 mg tablet 4 mg PO Q8H PRN nausea 04/01/23 10/21/24 pantoprazole 40 mg tablet,delayed 40 mg PO BID@0630,1630 04/01/23 10/21/24 release sitagliptin phosphate 100 mg 100 mg PO DAILY 04/01/23 10/21/24 tablet (Januvia) albuterol sulfate 90 mcg/actuation 2 puff inhalation Q4-6H PRN 10/21/24 10/21/24 aerosol inhaler Shortness Of Breath Or Wheezing amlodipine 2.5 mg tablet 2.5 mg PO DAILY 10/21/24 10/21/24 duloxetine 20 mg capsule,delayed 40 mg PO DAILY 10/21/24 10/21/24 release fluticasone furoate 100 1 ea inhalation DAILY 10/21/24 10/21/24 mcg-vilanterol 25 mcg/dose inhalation powder (Breo Ellipta) gabapentin 100 mg capsule 100 mg PO TID 10/21/24 10/21/24 gabapentin 600 mg tablet 600 mg PO BEDTIME 10/21/24 10/21/24 glipizide 2.5 mg tablet, extended 2.5 mg PO DAILY 10/21/24 10/21/24 release 24 hr lamotrigine 100 mg tablet 100 mg PO DAILY 10/21/24 10/21/24 lisinopril 20 mg tablet 20 mg PO DAILY 10/21/24 10/21/24 lorazepam 0.5 mg tablet 0.25 mg PO BID 10/21/24 10/21/24 mirtazapine 45 mg tablet 45 mg PO BEDTIME 10/21/24 10/21/24 olanzapine 2.5 mg tablet 2.5 mg PO BEDTIME 10/21/24 10/21/24 pramipexole 0.25 mg tablet 0.25 mg PO BID 10/21/24 10/21/24 propranolol 20 mg tablet 20 mg PO DAILY 10/21/24 10/21/24 Allergies Allergy/AdvReac Type Severity Reaction Status Date / Time ampicillin Allergy Rash Verified 10/20/24 19:28 morphine Allergy Rash Verified 10/20/24 19:28 Penicillins Allergy Rash Verified 10/20/24 19:28 Review of Systems Review of Systems: Constitutional : No Weight loss, No Fever, No Chills, No Night Sweats, No Fatigue, No Malaise ENT/Mouth : No Hearing loss, No Ear Pain, No Nasal Congestion, No Sinus Pain, No Hoarseness, No sore throat, No Rhinorrhea, No Swallowing Difficulty Eyes: No Eye Pain, No Swelling, No Redness, No Foreign Body, No Discharge, No Vision Changes Cardiovascular : No Chest Pain, No SOB, No Dyspnea on Exertion, No Orthopnea, No Edema, No Palpitations Respiratory : No Cough, No Sputum, No Wheezing, No Smoke Exposure, No Dyspnea Gastrointestinal : No Nausea, No Vomiting, No Diarrhea, No Constipation, No abdominal Pain, No Hematochezia, No Melena Genitourinary : no irregular bleeding, No Dysuria, No Urinary Frequency, No Hematuria, No Urinary Incontinence, No Urgency, No Flank Pain, No Urinary Flow Changes, No Hesitancy Musculoskeletal : No joint pain, No Myalgias, No Joint Swelling Skin : No Skin Lesions, No rash Neuro : No Weakness, No Numbness, No Paresthesias, No Loss of Consciousness, No Dizziness, No Headache Psych : No Anxiety/Panic, No Depression, No SI/HI/AH/VH, patient admits that earlier today she made SI statements because she was angry but did not mean it Heme/Lymph: No Bruising, No Bleeding,No Lymphadenopathy Endocrine : No Polyuria, No Polydipsia, No Temperature Intolerance PMFSH Past Medical History Medical History Migraines Diabetes Hypertension Anxiety Social History Social History Advance Directives: No Advance Directives Information Provided: No Physical Exam Vital Signs: Vital Signs: Last Vital Signs Temp 98 F 10/21/24 16:26 Pulse 99 10/21/24 16:26 Resp 20 10/21/24 16:26 BP 148/71 H 10/21/24 16:48 Pulse Ox 99 10/21/24 16:26 O2 Del Method Room Air 10/21/24 16:26 BMI result Body Mass Index 21.9 Const: Other: Appearance: Alert. Oriented X3. No acute distress. Eyes: Pupils equal, round and reactive to light. ENT: Pharynx normal. Neck: Normal inspection. Neck supple. No lymph nodes noted. No crepitus CVS: Normal heart rate and rhythm. Pulses normal. Normal S1 and S2 Respiratory: No respiratory distress. Breath sounds normal. No Wheezing. No rales Abdomen: Soft and nontender. No rigidity. No distention. Skin: Skin warm and dry. Normal skin color. Normal skin turgor. Extremities: No lower extremity edema. No Lacerations. No Rash Neuro: Oriented X 3. No motor deficit. No sensory deficit. Moving all extremities. No slurred speech. CN 2 through 12 grossly intact Psych: calm, cooperative, a bit anxious, keeps stating that she was driven home Course Course Course Narrative: My interpretation of labs: No significant abnormality in patient's hematology and chemistry, urinalysis is negative for UTI, patient has no symptoms of UTI. patient admits that she made SI statements but states that she did not mean them. Patient states it was secondary to being angry. Patient states that she is very dependent, makes her own decisions, admits that she has history of depression but she is not suicidal. Patient is very upset that her daughter wants her to be admitted to the hospital. patient would like to have a 2nd opinion from the care team or Psychiatry Reevaluation(s) Reevaluation #1: Time: 09:53 Date: 10/21/24 Provider: Ayanna Molina, DO Patient in physician observation for psychiatric evaluation.? No acute events reported overnight. No current complaints. VS stable.? Patient is in bed search status. Will continue to monitor. Reevaluation #2: Time: 16:57 Date: 10/21/24 Provider: Ayanna Molina DO Physician observation ended at 457pm. Patient to be admitted as inpatient to psychiatry. Medications Administered Generic Name Dose Route Start Last Admin Trade Name Freq PRN Reason Stop Dose Admin Acetaminophen 650 mg 10/21/24 16:31 10/21/24 16:47 Acetaminophen 325 Mg Tablet PO 650 mg Q6H PRN Administration Headache/Pain, Scale 1-10 Atorvastatin Calcium 20 mg 10/21/24 15:45 10/21/24 16:47 Atorvastatin Calcium 20 Mg Tablet PO 20 mg DAILY RICHARD Administration Lisinopril 20 mg 10/21/24 15:45 10/21/24 16:48 Lisinopril 20 Mg Tablet PO 20 mg DAILY RICHARD Administration Protocol Ondansetron HCl 4 mg 10/21/24 15:37 10/21/24 16:48 Ondansetron Odt 4 Mg Tab.Rapdis TRANSLINGU 4 mg Q8H PRN Administration Nausea Discontinued Medications Generic Name Dose Route Start Last Admin Trade Name Freq PRN Reason Stop Dose Admin Acetaminophen 650 mg 10/21/24 01:24 10/21/24 01:29 Acetaminophen 325 Mg Tablet PO 10/21/24 01:25 650 mg ONCE ONE Administration Amlodipine Besylate 5 mg 10/21/24 01:08 10/21/24 01:22 Amlodipine Besylate 5 Mg Tablet PO 10/21/24 01:09 5 mg ONCE ONE Administration Protocol Calcium Carbonate 750 mg 10/21/24 02:22 10/21/24 02:26 Calcium Carbonate 750 Mg Tab.Chew PO 10/21/24 02:23 750 mg ONCE ONE Administration Gabapentin 300 mg 10/21/24 03:44 10/21/24 03:49 Gabapentin 300 Mg Capsule PO 10/21/24 03:45 300 mg ONCE ONE Administration Hydroxyzine HCl 50 mg 10/20/24 23:34 10/21/24 00:20 Hydroxyzine Hcl 50 Mg Tablet PO 10/20/24 23:35 50 mg ONCE ONE Administration Lisinopril 20 mg 10/21/24 01:19 10/21/24 01:22 Lisinopril 20 Mg Tablet PO 10/21/24 01:20 20 mg ONCE ONE Administration Protocol Lorazepam 0.5 mg 10/21/24 03:45 10/21/24 03:49 Lorazepam 0.5 Mg Tablet PO 10/21/24 03:46 0.5 mg ONCE ONE Administration Medical Decision Making Medical Decision Making MDM Narrative: the care team evaluated the patient. Recommendation for now is inpatient bed search. However, patient is completely alert and oriented x3, coherent. Patient states that she does not agree with the care team evaluation. Patient states that she is not suicidal or homicidal. Patient lives by herself and makes her own medical decisions. Patient is requesting that she gets evaluated again in the morning and wants to be discharged. Patient states that she admits that she made SI comments but that is because she was very angry. Admits that this was the wrong thing to say. However, patient is adamant that she is not SI or HI. Patient states that she does not want her daughter making any decisions regarding a psychiatric hospitalization. I discussed with the patient that we will request a 2nd opinion in the morning. Patient agrees to stay until the morning to be re-evaluated. a 2nd care team evaluation has been placed. Differential Diagnosis Differential Diagnoses: The differential diagnosis associated with the presentation includes ( Anxiety, depression, suicidal ideation) Admission/Observation Consideration of admission/observation: Escalation of care including admission/observation considered ( patient is on a Section 12, care team waiting to talk to the patient's to ensure patient can be discharged safely home) Lab Data MDM Lab Attestation statement: I reviewed the patient's lab results. 10/20/24 21:45 10/20/24 21:45 Labs: Lab Results 10/20/24 10/20/24 Range/Units 19:59 21:45 WBC 7.6 (4.8-10.8) X10*3/uL RBC 3.65 L (4.20-5.50) X10*6/uL Hgb 10.8 L (12.0-16.0) g/dl Hct 31.3 L (37.0-47.0) % MCV 85.8 (80.0-98.0) fL MCH 29.6 (27.0-33.0) pg MCHC 34.5 (31.0-35.0) g/dl RDW 13.6 (11.0-16.0) % Plt Count 213 (160-400) X10*3/uL MPV 8.7 L (9.4-12.3) fL Immature Gran % (Auto) 0.3 (0.0-0.4) % Neut % (Auto) 58.4 (45-73) % Lymph % (Auto) 29.8 (20-40) % [place] % (Auto) 9.9 (2-11) % Eos % (Auto) 1.1 (0-4) % Baso % (Auto) 0.5 (0-2) % Lymph # (Auto) 2.3 (1.2-4.9) X10*3/uL [place] # (Auto) 0.8 (0.1-1.2) X10*3/uL Eos # (Auto) 0.1 (0.0-0.4) X10*3/uL Baso # (Auto) 0.0 (0.0-0.2) X10*3/uL Abs Immat Gran (auto) 0.02 (0.00-0.03) X10*3/uL Absolute Neuts (auto) 4.4 (2.0-8.3) x10*3/uL Absolute Nucleated RBC 0.000 (0.0-0.012) X10*3/uL Nucleated RBC % (auto) 0.0 (0.0-0.2) /100WBC Sodium 140 (135-145) mmol/L Potassium 4.2 (3.3-5.1) mmol/L Chloride 108 (96-108) mmol/L Carbon Dioxide 23 (22-29) mmol/L Anion Gap 13 (12-20) BUN 33 H (9-16) mg/dL Creatinine 1.15 (0.5-1.4) mg/dL Estim Creat Clear Calc 26.9 Estimated GFR 46 Random Glucose 96 (60-115) mg/dL Calcium 9.3 (8.4-10.2) mg/dL Urine Color Yellow Urine Appearance Clear Urine pH 7.0 (5.0-9.0) Ur Specific [place] 1.010 (1.005-1.025) Urine Protein Negative (Neg-Trace) mg/dL Urine Glucose (UA) Negative (Negative) mg/dL Urine Ketones Negative (Negative) mg/dL Urine Blood Negative (Negative) Urine Nitrite Negative (Negative) Ur Leukocyte Esterase Large (3+) H (Negative) Urine RBC 0-2 (0-2) /HPF Urine WBC 21-50 H (0-5) /HPF Ur Squamous Epith Cells 0-2 (0-2) /HPF Urine Bacteria Trace (None Seen) Hyaline Casts 0-2 (0-2) /LPF Urine Opiates Screen POSITIVE H (Not Detect) Ur Buprenorphine Scrn Not Detected (Not Detect) ng/mL Ur Oxycodone Screen Not Detected (Not Detect) ng/mL Urine Methadone Screen Not Detected (Not Detect) ng/mL Urine Fentanyl Screen Not Detected (Not Detect) Ur Barbiturates Screen Not Detected (Not Detect) Ur Phencyclidine Scrn Not Detected (Not Detect) Ur Amphetamines Screen Not Detected (Not Detect) U Benzodiazepines Scrn Not Detected (Not Detect) Urine Cocaine Screen Not Detected (Not Detect) U Marijuana (THC) Screen Not Detected (Not Detect) Discharge Plan Discharge Clinical Impression: Anxiety Patient Disposition: Admitted As Inpatient Interventions: [place]-Suicide Risk Severity Scale Last Done: 10/21/24 08:09
--- NOTE | 2024-10-21 | ECG_ITS ---
Test Reason : CHECK QTC Blood Pressure : */* mmHG Vent. Rate : 92 BPM Atrial Rate : 92 BPM P-R Int : 112 ms QRS Dur : 62 ms QT Int : 358 ms P-R-T Axes : 46 23 29 degrees QTcB Int : 442 ms Normal sinus rhythm Normal ECG No previous ECGs available Referred By: Ayanna Molina Electronically Signed By: RICARDO WOODWARD MD
[2024-10-21 01:03] VITALS: BP 180/81; PULSE 81; RESP 20; TEMP 36.8; O2SAT 99
--- NOTE | 2024-10-21 01:09 | PC.NURSE ---
verbal order from MD Bojorquez for pt's blood pressure medications, lisinopril and amlodipine
--- NOTE | 2024-10-21 08:11 | PC.NURSE ---
Resumed care of patient at 0700, she is currently pacing in the ED, asking multiple questions needing her phone, needing the hospital phone, asking when she gets to leave. Pt continues to deny SI/HI. Pt encouraged by staff to stay in bed and to not be walking all around the unit at this time. Sitter remains in place, awaiting re-eval of careteam at this time
--- NOTE | 2024-10-21 10:54 | PC.NURSE ---
EKG order placed for bed placement
[2024-10-21 16:26] VITALS: BP 148/71; PULSE 99; RESP 20; TEMP 36.6; O2SAT 99
--- NOTE | 2024-10-21 16:33 | PHA.MEDREC ---
Pharmacy Consult ? Medication Reconciliation RN has completed the medication reconciliation, [facility] reviewed. Contacted [facility] .
[2024-10-21 16:48] VITALS: BP 148/71
--- NOTE | 2024-10-21 17:37 | PC.NURSE ---
Pt has been pacing the ED all day, interrupting staff and approaching staff every 2-5 minutes making multiple requests, pt has been asked multiple times to stay by her bed, and that staff will be with her as soon as we can. Pt encouraged to stop approaching providers at the nursing station. Pt redirected multiple times. This RN has spent an extensive amount of time today to get pt medications figured out as staff had been given 4 different medication lists that were not the same, this RN was able to call the pharmacy to try and go over medications as she had no idea what she takes. This RN and pharmacy discussed medications as all the medications in our system were not the correct dosing or admin amounts. At this time the medications are ordered, pt is awaiting admit to S1. Warm pack and emotional support provided at this time. Pt has been given multiple options of food and drinks, she has declined most of her meal trays as she does not like the food. Pt given other options at those times.
--- NOTE | 2024-10-21 19:10 | PC.NURSE ---
report given at this time to Rn taking pt over on S1.
[2024-10-21 20:00] VITALS: BP 120/81; BP 160/87; PULSE 78; PULSE 85; RESP 16; RESP 18; TEMP 20.7; TEMP 36.3; O2SAT 96; O2SAT 99
[2024-10-22 02:53] VITALS: BMI 22.8
--- NOTE | 2024-10-22 04:01 | PC.ADMIT ---
10/21/24 arrived on unit at 2130. 78 year old female was admitted from the ED for SI with a plan to OD on medications. Her son called 911 and she was taken to [facility] ED. She was oriented to unit. Admission paper work incomplete signature d/t PT said she is to tiered and forgot her eyeglasses. She is pleasant, easily distracted, Has a history of depression and anxiety HTN type 2 diabetes is on Januvia. She denies SI, HI said she didn't mean it and would never hurt herself. She misses her dog She is a&o x4 flat affect said she just wants to go to bed I can finish this in the morning Pt was taken to her room and slept 7 hours
[2024-10-22 07:50] LABS: Hemoglobin A1C 174.3381 umol/L; Total Hemoglobin (HGBA1C) 3190.2422 umol/L
[2024-10-22 07:59] LABS: Alanine Aminotransferase 25 U/L (0-31); Albumin Level 4.9 g/dL (3.5-5.0); Alkaline Phosphatase 67 U/L (39-117); Anion Gap 16 (12-20); Aspartate Amino Transferase 21 U/L (5-31); Blood Urea Nitrogen 22 mg/dL (9-16); Calcium 9.6 mg/dL (8.4-10.2); Carbon Dioxide 23 mmol/L (22-29); Chloride 108 mmol/L (96-108); Cholesterol 148 mg/dL (<200); Creatinine Clr Calc Pharmacy 30.7; Estimated Glomerular Filt Rate 49; HDL Cholesterol 60 mg/dL (>40); Potassium 4.6 mmol/L (3.3-5.1); Sodium 142 mmol/L (135-145); Total Protein 7.4 g/dL (6.5-8.0); Triglycerides 102 mg/dL (<150)
[2024-10-22 08:00] VITALS: BP 144/76; PULSE 96; RESP 19; TEMP 36.5; O2SAT 96
[2024-10-22 08:13] LABS: Free T4 (Free Thyroxine) 1.15 ng/dL (0.71-1.85); Thyroid Stimulating Hormone 2.14 uIU/mL (0.32-4.0)
[2024-10-22 08:25] VITALS: BP 144/76
[2024-10-22] MEDS: Fluticasone/Vilanterol 100/25 BLST.W.DEV 1 PUFF INHALE (08:32)
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
[2024-10-22 16:50] VITALS: BP 157/83; PULSE 77
[2024-10-22 20:00] VITALS: BP 132/72; PULSE 74; RESP 17; TEMP 36.6; O2SAT 97
[2024-10-22 20:30] VITALS: BP 132/72; PULSE 74
[2024-10-23 08:26] VITALS: BP 135/63; PULSE 84; RESP 20; TEMP 36.2; O2SAT 96
[2024-10-23] MEDS: Fluticasone/Vilanterol 100/25 BLST.W.DEV 1 PUFF INHALE (08:27)
[2024-10-23] MEDS: Magnesium Hydrox/Alum Hydrox 30 ML ORAL.SUSP PO (11:04)
--- NOTE | 2024-10-23 14:00 | HO.PM.IMCN ---
History of Present Illness Data of Consult Service Date: 10/23/24 Primary Care Provider: Unknown Physician HPI Reason for consult: Abdominal pain 78-year-old female with a history of hypertension, hyperlipidemia, type 2 diabetes, history of gastritis and gastroparesis. Patient is admitted to the geripsych unit with anxiety and suicidal ideation with plans to overdose on medications. Patient is being seen for abdominal pain. Patient reports that her pain has been ongoing for several months. She is followed by Dr. Cohng [facility]. She has a history of hep C which has been successfully treated with Harvoni. Patient has had a gastric emptying study which was positive for gastroparesis, she had a colonoscopy in 12/2022 that showed polyps and diverticulosis with recommendations to repeat in 3 years. She had an abdominal CAT scan in January 2023 which did not show anything acute, she had endoscopy done in July 2024 with biopsies that were negative for H pylori, no intestinal metaplasia, esophageal biopsy was normal. The GE junction biopsy showed chronic inflammation and reactive changes. She has had endoscopies done with Botox injections both 09/2023 and 03/2024. Recent endoscopy 09/2024 with no H pylori gastritis identified, and changes suggestive of PPI affect. No other abnormalities. She denies any burning with urination, denies any denies any nausea or vomiting. Reports that she is eating, however her appetite is poor with this noted to be at her baseline in the GI notes. She has tried both Remeron and Megace for weight gain, however her weight was stable since February per GI notes. She is noted to be mildly anemic, with iron on her outpatient med list H&H noted on 10/20/2024 at 10.8/31.3. No leukocytosis. UA done on 10/20 with large leukocyte esterase, and WBCs, no nitrites and no bacteria, we will repeat this. Patient has had no recent imaging. Patient reports that nothing helps the pain, she tells me that she was just recently given Ativan to see if that will help her pain. Patient reports that she takes Maalox outpatient, but she reports that does not help her pain either. She denies any vaginal symptoms, denies any burning with urination. Denies any constipation or diarrhea. Denies any nausea or vomiting, no sick contacts. Her vitals are stable no tachycardia, no fever. Review of Systems Review of Systems: Denies any shortness of breath, chest pain, dizziness, lightheadedness, + abdominal pain. No nausea vomiting or diarrhea, denies loss of appetite PMFSH Medical History Migraines Diabetes Hypertension Anxiety Social History Household Members: None Housing: House Do you presently have visiting nurse or other home services: Yes Patient Tobacco Use Status: Never used Tobacco Currently Displaying Signs/Symptoms of Drug Intoxication Withdrawal: No Have you been hit, kicked, punched, or otherwise hurt by someone within the past year? If so, by whom?: No Do you feel safe in your current relationship?: No Current Relationship Is there a partner from a previous relationship who is making you feel unsafe now?: No Are you made to feel afraid or neglected: No Spiritual Healthcare Practices: meditation and breathing Advance Directives: No Advance Directives Information Provided: No Do you have thoughts of harming others: None Do you have a plan to hurt others: No Plan Recently lost weight without trying: No Eating poorly because of decreased appetite: No Nutrition Risks: No Nutritional Risk Patient : No : No Poor oral hygiene: No service: No Sexual orientation: Straight/Heterosexual Meds Allergies Allergy/AdvReac Type Severity Reaction Status Date / Time ampicillin Allergy Rash Verified 10/20/24 19:28 morphine Allergy Rash Verified 10/20/24 19:28 Penicillins Allergy Rash Verified 10/20/24 19:28 Active Medications: Current Medications Acetaminophen (Acetaminophen 325 Mg Tablet) 650 mg PO Q6H PRN PRN Reason: Headache/Pain, Scale 1-10 Last Admin: 10/21/24 16:47 Dose: 650 mg Al Hydroxide/Mg Hydroxide (Magnesium Hydrox/Alum Hydrox 30 Ml Oral.Susp) 30 ml PO Q6H PRN PRN Reason: Heartburn/Nausea Last Admin: 10/23/24 11:04 Dose: 30 ml Albuterol Sulfate (Albuterol Sulfate 90 Mcg 8 Gm Inhaler) 2 puff INHALE Q4H PRN PRN Reason: Shortness Of Breath Or Wheezin Amlodipine Besylate (Amlodipine Besylate 2.5 Mg Tablet) 2.5 mg PO DAILY RICHARD; Protocol Last Admin: 10/23/24 08:32 Dose: 2.5 mg Atorvastatin Calcium (Atorvastatin Calcium 20 Mg Tablet) 20 mg PO DAILY [facility] Last Admin: 10/23/24 08:29 Dose: 20 mg Duloxetine HCl (Duloxetine Hcl 20 Mg Capsule.Dr) 40 mg PO DAILY [facility] Last Admin: 10/23/24 08:30 Dose: 40 mg Fluticasone/Vilanterol (Fluticasone/Vilanterol 100/25 Blst.W.Dev) 1 puff INHALE RDAILY [facility] Last Admin: 10/23/24 08:27 Dose: 1 puff Gabapentin (Gabapentin 100 Mg Capsule) 200 mg PO TID [facility] Last Admin: 10/23/24 08:31 Dose: 200 mg Glipizide (Glipizide Xl 2.5 Mg Tab.Er.24) 2.5 mg PO DAILY [facility] Last Admin: 10/23/24 08:33 Dose: 2.5 mg Lisinopril (Lisinopril 20 Mg Tablet) 20 mg PO DAILY [facility]; Protocol Last Admin: 10/23/24 08:29 Dose: 20 mg Lorazepam (Lorazepam 0.5 Mg Tablet) 0.5 mg PO TID [facility] Magnesium Hydroxide (Milk Of Magnesia 30 Ml Oral.Susp) 30 ml PO DAILY PRN PRN Reason: Constipation Mirtazapine (Mirtazapine 30 Mg Tablet) 30 mg PO BEDTIME [facility] Last Admin: 10/22/24 20:30 Dose: 30 mg Omeprazole (Omeprazole 20 Mg Capsule.Dr) 20 mg PO BID@0630,1630 [facility] Last Admin: 10/23/24 05:56 Dose: 20 mg Ondansetron HCl (Ondansetron Odt 4 Mg Tab.Rapdis) 4 mg TRANSLINGU Q8H PRN PRN Reason: Nausea Last Admin: 10/23/24 10:02 Dose: 4 mg Pramipexole Dihydrochloride (Pramipexole Di-Hcl 0.25 Mg Tablet) 0.25 mg PO BID [facility] Last Admin: 10/23/24 08:29 Dose: 0.25 mg Propranolol HCl (Propranolol Hcl 10 Mg Tablet) 10 mg PO TID [facility]; Protocol Last Admin: 10/23/24 08:31 Dose: 10 mg Simethicone (Simethicone 80 Mg Tab.Chew) 80 mg PO QIDWMHS [facility] Last Admin: 10/23/24 11:44 Dose: 80 mg Sitagliptin Phosphate (Sitagliptin Phosphate 25 Mg Tablet) 25 mg PO DAILY [facility] Last Admin: 10/23/24 08:31 Dose: 25 mg Trazodone HCl (Trazodone Hcl 50 Mg Tablet) 50 mg PO BEDTIME MRX1 PRN PRN Reason: Insomnia Last Admin: 10/22/24 21:53 Dose: 50 mg Home Medications ?Medication ?Instructions ?Recorded ?Confirmed ?Last Taken ?Type atorvastatin 20 mg tablet 20 mg PO DAILY 04/01/23 10/21/24 03/31/23 21:00 History ondansetron HCl 4 mg tablet 4 mg PO Q8H PRN nausea 04/01/23 10/21/24 03/31/23 21:00 History pantoprazole 40 mg tablet,delayed 40 mg PO BID@0630,1630 04/01/23 10/21/24 03/31/23 21:00 History release sitagliptin phosphate 100 mg 100 mg PO DAILY 04/01/23 10/21/24 03/31/23 21:00 History tablet (Januvia) albuterol sulfate 90 mcg/actuation 2 puff inhalation Q4-6H PRN 10/21/24 10/21/24 Unknown History aerosol inhaler Shortness Of Breath Or Wheezing amlodipine 2.5 mg tablet 2.5 mg PO DAILY 10/21/24 10/21/24 Unknown History duloxetine 20 mg capsule,delayed 40 mg PO DAILY 10/21/24 10/21/24 Unknown History release fluticasone furoate 100 1 ea inhalation DAILY 10/21/24 10/21/24 Unknown History mcg-vilanterol 25 mcg/dose inhalation powder (Breo Ellipta) gabapentin 100 mg capsule 100 mg PO TID 10/21/24 10/21/24 Unknown History gabapentin 600 mg tablet 600 mg PO BEDTIME 10/21/24 10/21/24 Unknown History glipizide 2.5 mg tablet, extended 2.5 mg PO DAILY 10/21/24 10/21/24 Unknown History release 24 hr lamotrigine 100 mg tablet 100 mg PO DAILY 10/21/24 10/21/24 Unknown History lisinopril 20 mg tablet 20 mg PO DAILY 10/21/24 10/21/24 Unknown History lorazepam 0.5 mg tablet 0.25 mg PO BID 10/21/24 10/21/24 Unknown History mirtazapine 45 mg tablet 45 mg PO BEDTIME 10/21/24 10/21/24 Unknown History olanzapine 2.5 mg tablet 2.5 mg PO BEDTIME 10/21/24 10/21/24 Unknown History pramipexole 0.25 mg tablet 0.25 mg PO BID 10/21/24 10/21/24 Unknown History propranolol 20 mg tablet 20 mg PO DAILY 10/21/24 10/21/24 Unknown History Physical Exam Vital Signs and Narrative: Vital Signs: Last Vital Signs Temp 97.2 F 10/23/24 08:26 Pulse 84 10/23/24 08:26 Resp 20 10/23/24 08:26 BP 135/63 10/23/24 08:26 Pulse Ox 96 10/23/24 08:26 O2 Del Method Room Air 10/23/24 08:26 BMI result Body Mass Index 22.8 CONST: Alert and oriented, in NAD. Well nourished. Ambulating ad woody on unit in no apparent distress HEENT: Normocephalic, atraumatic, MMM, Eyes clear, Neck supple RESP: Lungs clear, RRR even and regular HEART:,RRR, S1, S2. No edema GI:Abdomen Soft NT, ND. + BS times four. No guarding, no rebound tenderness, no hepatosplenomegaly. :Deferred SKIN: Warm dry and intact, no visible lesions or rashes NEURO:CN II-XII Intact bilaterally, Sensation intact. Speech clear PSYCH: Normal affect Results Labs 10/20/24 21:45 10/22/24 07:23 Assessment and Plan (1) Gastroparesis: Status: Acute Plan Anxiety with suicidal ideation Plan per Psychiatry Chronic abdominal plain/gastroparesis, chronic mild gastritis, history of diverticulosis Patient is at [facility], she has had Botox injections in the past last in March 2024 Patient had a recent upper endoscopy negative for H pylori or any abnormalities We will check a follow up UA due to positive leukocyte esterase, we will check a CBC and a BMP. If any abnormalities are noted will consider imaging Continues on duloxetine, may help with chronic pain. Continues with omeprazole twice daily Avoid constipation. Avoid opiates and anticholinergics Restless leg syndrome Patient continues on gabapentin and Mirapex twice daily Hypertension/hyperlipidemia Continue atorvastatin, lisinopril, and amlodipine Follow up blood pressures. Adjust as needed Type 2 diabetes Continue with glipizide and Januvia Recent A1c 7.2, acceptable range for her age. We will add sliding scale insulin to improve glucose control, to help with symptoms of gastroparesis Thank you for allowing me to participate in the care of this patient. Will follow as needed. Please reconsult of any acute concerns or issues arise
[2024-10-23 15:14] VITALS: BP 138/69; PULSE 73; RESP 20; O2SAT 96
[2024-10-23 15:39] LABS: Hematocrit 34.7 % (37.0-47.0); Hemoglobin 11.8 g/dl (12.0-16.0); Imm Gran Abs Auto 0.02 X10*3/uL (0.00-0.03); Imm Gran Pct Auto 0.3 % (0.0-0.4); Lymphocytes Absolute Auto 1.5 X10*3/uL (1.2-4.9); MANUAL DIFF FLAG SCAN; Mean Corpuscular HGB Conc 34.0 g/dl (31.0-35.0); Mean Corpuscular Hemoglobin 29.3 pg (27.0-33.0); Mean Corpuscular Volume 86.1 fL (80.0-98.0); NRBC Abs Auto 0.000 X10*3/uL (0.0-0.012); NRBC Pct Auto 0.0 /100WBC (0.0-0.2); PLT CLUMP 1; Red Blood Count 4.03 X10*6/uL (4.20-5.50); SCAN SMEAR FLAG 1
[2024-10-23 15:40] LABS: Anion Gap 14 (12-20); Blood Urea Nitrogen 26 mg/dL (9-16); Calcium 9.3 mg/dL (8.4-10.2); Carbon Dioxide 24 mmol/L (22-29); Chloride 104 mmol/L (96-108); Creatinine Clr Calc Pharmacy 32.8; Estimated Glomerular Filt Rate 53; Potassium 4.5 mmol/L (3.3-5.1); Sodium 137 mmol/L (135-145)
[2024-10-23 15:40] LABS: White Blood Count 6.4 X10*3/uL (4.8-10.8)
[2024-10-23 15:51] LABS: Platelet Count 221 X10*3/uL (160-400)
[2024-10-23 16:35] LABS: Glucose, Whole Blood 132 mg/dL (60-115)
--- NOTE | 2024-10-23 16:35 | HO.PSYCHPN ---
Subjective Subjective Date of Service: 10/23/24 Reason For Visit: SI with plan to OD on medications, increased anxie Subjective Notes: Conditional Voluntary Healthcare Proxy: No Guardianship: No Medical Problems Affecting Mental Status: Yes (severe stomach pain ) Interim History: Medical record and nursing notes reviewed; case discussed during rounds with team, and met with patient for supportive therapy/psychoeducation, as well as medication management. Meet with patient in exam room, reported that she was not able to sleep well due to be traumatized by 1 of the peers who coming to her room during the night. Appetite is getting better. Reports she tried to eat to survive. Reports pain on stomach 10/31 feeling burning but denies N/V. Seen by hospitalist. Started on part of care which sliding-scale. No ADLs issues. Restless legs is moderate to severe, observed shifting legs, not able to sit still. However reports is better at nighttime. Reports restless legs is new to her since July. However her daughter who I called and spoke to around [phone] this afternoon states that it is is not true as she has been have it for years . Daughter reports that she has been given medication by different providers, which could be good for her mom. Her kidneys function slightly improved compared to yesterday. Thyroid level is within normal limit. Has a lot of medication change in yesterday from attending provider. Ativan appear to be on hold by mistake. Started the Ativan 0.5 t.i.d. this afternoon. Her daughter also reports she was on Zoloft in the past Ativan and Lamictal. Not sure how long she has been on or still taking it. It has been held on admission. At this current time I do not think is a good time to restart on Lamictal until she gets used to auto changes. Denies any safety concerns. Denies SI/SIB/HI/AVH. Reports moderate anxiety and depression . She made suicidal statement prior to come here due to get frustrated due to restless leg and pain but do not mean to Wanna kill herself. Daughter reported that she goes to [employer] Monday to Monday and go back home by to 15:00, she also have caregiver comes to the house 2-3 hours in the afternoon after she goes back from the [facility]. Update daughter with the labs work with kidneys abnormal function some medication changes. We will revisit it is worth a to restart her on Lamictal. She was taking 100 mg at home. Medication Compliance: Yes Side effects from medications: No Attending Groups: Yes Review of Systems Acute medical concerns: No No acute medical concerns. However reports moderate pain on the stomach. History of having Botox on her stomach per daughter reports. Medical Review of Systems: unchanged Review of Systems Review of Systems Denies any shortness of breath, chest pain, dizziness, lightheadedness, + abdominal pain. No nausea vomiting or diarrhea, denies loss of appetite Yes all other systems are reviewed and are negative Mental Status Exam Mental Status Exam Narrative: Patient is alert and oriented x4. behavior is pleasant and cooperative, friendly with mild to moderate anxiety and depression, patient is not in distress; dressed in hospital attire with adequate hygiene; mood is described as anxous and traumatized and affect congruent; eye contact appropriate; Speech is normal rate, volume and prosody and not pressured; no psychomotor agitation/retardation present; thought process is organized and goal directed but focus on stomach pain; Thought content is WNL, pertinent to relevant topics and without any delusional content, paranoid ideation or grandiosity; denies any SI/SIB/HI. Denies AH and there is no evidence of perceptual disturbance. Patient's insight and judgment fair. Diagnostics Vital Signs (24Hr): Vital Signs - 24 hr 10/22/24 16:50 10/22/24 20:00 10/22/24 20:30 Temperature 97.8 F Pulse Rate 77 74 74 Respiratory Rate 17 Blood Pressure 157/83 H 132/72 132/72 Pulse Oximetry 97 Oxygen Delivery Method Room Air 10/23/24 08:26 10/23/24 15:14 Temperature 97.2 F Pulse Rate 84 73 Respiratory Rate 20 20 Blood Pressure 135/63 138/69 Pulse Oximetry 96 96 Oxygen Delivery Method Room Air Room Air BMI result Body Mass Index 22.8 Labs 10/23/24 15:20 10/23/24 15:19 Labs: Laboratory Results - last 48 hr 10/22/24 10/23/24 10/23/24 07:23 15:19 15:20 WBC 6.4 RBC 4.03 L Hgb 11.8 L Hct 34.7 L MCV 86.1 MCH 29.3 MCHC 34.0 RDW 13.6 Plt Count 221 MPV 9.8 Immature Gran % (Auto) 0.3 Neut % (Auto) 64.6 Lymph % (Auto) 23.0 [place] % (Auto) 10.4 Eos % (Auto) 1.2 Baso % (Auto) 0.5 Lymph # (Auto) 1.5 [place] # (Auto) 0.7 Eos # (Auto) 0.1 Baso # (Auto) 0.0 Abs Immat Gran (auto) 0.02 Absolute Neuts (auto) 4.2 Absolute Nucleated RBC 0.000 Nucleated RBC % (auto) 0.0 Smear Tech's Comments VERIFIED Sodium 142 137 Potassium 4.6 4.5 Chloride 108 104 Carbon Dioxide 23 24 Anion Gap 16 14 BUN 22 H 26 H Creatinine 1.09 1.02 Estim Creat Clear Calc 30.7 32.8 Estimated GFR 49 53 Random Glucose 204 H 158 H Estimat Average Glucose 160 Hemoglobin A1c % 7.2 H Calcium 9.6 9.3 Total Bilirubin 0.5 AST 21 ALT 25 Alkaline Phosphatase 67 Total Protein 7.4 Albumin 4.9 Triglycerides 102 Cholesterol 148 LDL Cholesterol, Calc 68 HDL Cholesterol 60 TSH 2.14 Free T4 1.15 Medications Medications Current Medications Acetaminophen (Acetaminophen 325 Mg Tablet) 650 mg PO Q6H PRN PRN Reason: Headache/Pain, Scale 1-10 Last Admin: 10/21/24 16:47 Dose: 650 mg Al Hydroxide/Mg Hydroxide (Magnesium Hydrox/Alum Hydrox 30 Ml Oral.Susp) 30 ml PO Q6H PRN PRN Reason: Heartburn/Nausea Last Admin: 10/23/24 11:04 Dose: 30 ml Albuterol Sulfate (Albuterol Sulfate 90 Mcg 8 Gm Inhaler) 2 puff INHALE Q4H PRN PRN Reason: Shortness Of Breath Or Wheezin Amlodipine Besylate (Amlodipine Besylate 2.5 Mg Tablet) 2.5 mg PO DAILY [facility]; Protocol Last Admin: 10/23/24 08:32 Dose: 2.5 mg Atorvastatin Calcium (Atorvastatin Calcium 20 Mg Tablet) 20 mg PO DAILY [facility] Last Admin: 10/23/24 08:29 Dose: 20 mg Duloxetine HCl (Duloxetine Hcl 20 Mg Capsule.Dr) 40 mg PO DAILY [facility] Last Admin: 10/23/24 08:30 Dose: 40 mg Fluticasone/Vilanterol (Fluticasone/Vilanterol 100/25 Blst.W.Dev) 1 puff INHALE RDAILY [facility] Last Admin: 10/23/24 08:27 Dose: 1 puff Gabapentin (Gabapentin 100 Mg Capsule) 200 mg PO TID [facility] Last Admin: 10/23/24 15:16 Dose: 200 mg Glipizide (Glipizide Xl 2.5 Mg Tab.Er.24) 2.5 mg PO DAILY [facility] Last Admin: 10/23/24 08:33 Dose: 2.5 mg Insulin Human Lispro (Insulin Lispro 100 Unit/Ml 3 Ml Vial) 0 unit SUBCUT TIDAC [facility]; Protocol Last Admin: 10/23/24 16:33 Dose: Not Given Lisinopril (Lisinopril 20 Mg Tablet) 20 mg PO DAILY [facility]; Protocol Last Admin: 10/23/24 08:29 Dose: 20 mg Lorazepam (Lorazepam 0.5 Mg Tablet) 0.5 mg PO TID [facility] Magnesium Hydroxide (Milk Of Magnesia 30 Ml Oral.Susp) 30 ml PO DAILY PRN PRN Reason: Constipation Mirtazapine (Mirtazapine 30 Mg Tablet) 30 mg PO BEDTIME [facility] Last Admin: 10/22/24 20:30 Dose: 30 mg Omeprazole (Omeprazole 20 Mg Capsule.Dr) 20 mg PO BID@0630,1630 [facility] Last Admin: 10/23/24 16:23 Dose: 20 mg Ondansetron HCl (Ondansetron Odt 4 Mg Tab.Rapdis) 4 mg TRANSLINGU Q8H PRN PRN Reason: Nausea Last Admin: 10/23/24 10:02 Dose: 4 mg Pramipexole Dihydrochloride (Pramipexole Di-Hcl 0.25 Mg Tablet) 0.25 mg PO BID [facility] Last Admin: 10/23/24 08:29 Dose: 0.25 mg Propranolol HCl (Propranolol Hcl 10 Mg Tablet) 10 mg PO TID [facility]; Protocol Last Admin: 10/23/24 15:16 Dose: 10 mg Simethicone (Simethicone 80 Mg Tab.Chew) 80 mg PO QIDWMHS [facility] Last Admin: 10/23/24 11:44 Dose: 80 mg Sitagliptin Phosphate (Sitagliptin Phosphate 25 Mg Tablet) 25 mg PO DAILY [facility] Last Admin: 10/23/24 08:31 Dose: 25 mg Trazodone HCl (Trazodone Hcl 50 Mg Tablet) 50 mg PO BEDTIME MRX1 PRN PRN Reason: Insomnia Last Admin: 10/22/24 21:53 Dose: 50 mg Allergies Allergies Allergy/AdvReac Type Severity Reaction Status Date / Time ampicillin Allergy Rash Verified 10/20/24 19:28 morphine Allergy Rash Verified 10/20/24 19:28 Penicillins Allergy Rash Verified 10/20/24 19:28 Assessment & Plan Assessment & Plan (1) Gastroparesis: Status: Acute Code(s): K31.84 - Gastroparesis (2) Anxiety: Status: Acute Code(s): F41.9 - Anxiety disorder, unspecified (3) MDD (major depressive disorder), recurrent episode, moderate: Status: Acute Code(s): F33.1 - Major depressive disorder, recurrent, moderate Plan Anxiety,and depression with suicidal ideation 10/23/24: Continue with Cymbalta for pain and depression. Continue with Remeron-reports taking to help her with appetite and sleep. Continue with Ativan resume- continue with other medication that admitting provider on ready change yesterday, gabapentin in divided dose with some abnormal labs for kidney functions. BUN is improved. Estimate creatinine clearance is improving, GFR also improved, A1c 7.2. TSH is 2.14, and free T4 1.15 within normal limit. Continue with Mirapex 0.25 couple of times a day for restless leg. Per daughter history of Lamictal-which now is on held. History of Zoloft for a long time, history of Ativan. Multiple medication providers. History of Botox on her stomach for gastroparesis. Patient seen by Hospitalist on 10/23/24 with plan: Chronic abdominal painn/gastroparesis, chronic mild gastritis, history of diverticulosis Patient is at [facility], she has had Botox injections in the past last in March 2024 Patient had a recent upper endoscopy negative for H pylori or any abnormalities We will check a follow up UA due to positive leukocyte esterase, we will check a CBC and a BMP. If any abnormalities are noted will consider imaging Continues on duloxetine, may help with chronic pain. Continues with omeprazole twice daily Avoid constipation. Avoid opiates and anticholinergics Restless leg syndrome Patient continues on gabapentin and Mirapex twice daily Hypertension/hyperlipidemia Continue atorvastatin, lisinopril, and amlodipine Follow up blood pressures. Adjust as needed Type 2 diabetes Continue with glipizide and Januvia Recent A1c 7.2, acceptable range for her age. We will add sliding scale insulin to improve glucose control, to help with symptoms of gastroparesis Plan: Change from 5 to 15 minute checks for safety. She is on CV. Collateral done with the daughter on October 23. Treatment team will work on collateral and aftercare services. Patient attended to [facility] program Monday to Monday, and has caregiver 2-3 hours after 1500 to self with meals and other stuff. Daughter is very supportive. Name is Merna: [phone]. Patient is independent able to manage her own medications. Per medical provider, order UA, CBC, and CMP. Continue to monitor for kidney functions. Started point of care 4 times a day with sliding scale. Patient educated on: diagnosis, medication risk/benefits and therapeutic strategies Informed Consent: understands Reason for continued inpatient stay Substantial Risk for: harm to self (Making suicidal statements with plan to overdose on own meds prior to be admitted) and med/psych decompensation Time Spent With Patient Time: Total time managing care of this patient today ____ minutes.
[2024-10-23 20:00] VITALS: BP 145/69; PULSE 69; RESP 18; TEMP 36.2; O2SAT 98
[2024-10-24 06:57] LABS: Glucose, Whole Blood 204 mg/dL (60-115)
[2024-10-24 07:00] VITALS: BMI 23.4
[2024-10-24 08:32] VITALS: BP 111/54; PULSE 81; RESP 16; TEMP 37.7; O2SAT 95
[2024-10-24] MEDS: Fluticasone/Vilanterol 100/25 BLST.W.DEV 1 PUFF INHALE (08:35)
[2024-10-24] MEDS: Milk of Magnesia 30 ML ORAL.SUSP PO (08:36)
[2024-10-24 11:16] LABS: Glucose, Whole Blood 95 mg/dL (60-115)
[2024-10-24 12:41] LABS: Iron 65 mcg/dL (30-160); Percent Iron Saturation 30 % (15-50); Total Iron Binding Capacity 216 mcg/dL (228-428); Unsaturated Iron Binding 151 ug/dL
[2024-10-24 16:10] LABS: Glucose, Whole Blood 142 mg/dL (60-115)
[2024-10-24 16:26] VITALS: BP 143/73
--- NOTE | 2024-10-24 19:02 | HO.PSYCHPN ---
Subjective Subjective Date of Service: 10/24/24 Reason For Visit: SI with plan to OD on medications, increased anxie Subjective Notes: Conditional Voluntary Interim History: Pt slept through the night. She reports less involuntary movement of legs and less sense of restlessness. MOCA and ACL completed today. MOCA 02/20. ACL 4.4 Pt denies SI/HI. She reports feeling less depressed. She is on different medications for involuntary movements, will try d/c pramipexole. Review of Systems Review of Systems No SOB, no chest pain. no changes in vision. no constipation nor diarrhea. Yes all other systems are reviewed and are negative Mental Status Exam Mental Status Exam Narrative: Appearance: wearing hospital gown, fair hygiene, movement of lower extremities noted. Behavior: cooperative Psychomotor: constant movement of lower extremities Speech: clear, normal rate/rhythm/volume, spontaneous TP: linear TC: distressed by constant leg movement and sense of restlessness. Mood: depressed Affect: congruent SI: denies HI: none VH/AH: none Delusions: none Memory/cog: alert, oriented x 3. MOCA on 10/24/202402/20, ACL 4.4 Diagnostics Vital Signs (24Hr): Vital Signs - 24 hr 10/23/24 20:00 10/24/24 08:32 10/24/24 16:26 Temperature 97.1 F 99.9 F Pulse Rate 69 81 Respiratory Rate 18 16 Blood Pressure 145/69 H 111/54 L 143/73 H Pulse Oximetry 98 95 Oxygen Delivery Method Room Air Room Air BMI result Body Mass Index 23.4 Labs 10/23/24 15:20 10/23/24 15:19 Labs: Laboratory Results - last 48 hr 10/23/24 10/23/24 10/23/24 15:19 15:20 16:31 WBC 6.4 RBC 4.03 L Hgb 11.8 L Hct 34.7 L MCV 86.1 MCH 29.3 MCHC 34.0 RDW 13.6 Plt Count 221 MPV 9.8 Immature Gran % (Auto) 0.3 Neut % (Auto) 64.6 Lymph % (Auto) 23.0 [place] % (Auto) 10.4 Eos % (Auto) 1.2 Baso % (Auto) 0.5 Lymph # (Auto) 1.5 [place] # (Auto) 0.7 Eos # (Auto) 0.1 Baso # (Auto) 0.0 Abs Immat Gran (auto) 0.02 Absolute Neuts (auto) 4.2 Absolute Nucleated RBC 0.000 Nucleated RBC % (auto) 0.0 Smear Tech's Comments VERIFIED Sodium 137 Potassium 4.5 Chloride 104 Carbon Dioxide 24 Anion Gap 14 BUN 26 H Creatinine 1.02 Estim Creat Clear Calc 32.8 Estimated GFR 53 POC Glucose 132 H Random Glucose 158 H Calcium 9.3 Iron TIBC % Saturation Unsat Iron Binding 10/24/24 10/24/24 10/24/24 06:51 11:08 12:19 WBC RBC Hgb Hct MCV MCH MCHC RDW Plt Count MPV Immature Gran % (Auto) Neut % (Auto) Lymph % (Auto) [place] % (Auto) Eos % (Auto) Baso % (Auto) Lymph # (Auto) [place] # (Auto) Eos # (Auto) Baso # (Auto) Abs Immat Gran (auto) Absolute Neuts (auto) Absolute Nucleated RBC Nucleated RBC % (auto) Smear Tech's Comments Sodium Potassium Chloride Carbon Dioxide Anion Gap BUN Creatinine Estim Creat Clear Calc Estimated GFR POC Glucose 204 H 95 Random Glucose Calcium Iron 65 TIBC 216 L % Saturation 30 Unsat Iron Binding 151 10/24/24 16:06 WBC RBC Hgb Hct MCV MCH MCHC RDW Plt Count MPV Immature Gran % (Auto) Neut % (Auto) Lymph % (Auto) [place] % (Auto) Eos % (Auto) Baso % (Auto) Lymph # (Auto) [place] # (Auto) Eos # (Auto) Baso # (Auto) Abs Immat Gran (auto) Absolute Neuts (auto) Absolute Nucleated RBC Nucleated RBC % (auto) Smear Tech's Comments Sodium Potassium Chloride Carbon Dioxide Anion Gap BUN Creatinine Estim Creat Clear Calc Estimated GFR POC Glucose 142 H Random Glucose Calcium Iron TIBC % Saturation Unsat Iron Binding Medications Medications Current Medications Acetaminophen (Acetaminophen 325 Mg Tablet) 650 mg PO Q6H PRN PRN Reason: Headache/Pain, Scale 1-10 Last Admin: 10/21/24 16:47 Dose: 650 mg Al Hydroxide/Mg Hydroxide (Magnesium Hydrox/Alum Hydrox 30 Ml Oral.Susp) 30 ml PO Q6H PRN PRN Reason: Heartburn/Nausea Last Admin: 10/23/24 11:04 Dose: 30 ml Albuterol Sulfate (Albuterol Sulfate 90 Mcg 8 Gm Inhaler) 2 puff INHALE Q4H PRN PRN Reason: Shortness Of Breath Or Wheezin Amlodipine Besylate (Amlodipine Besylate 2.5 Mg Tablet) 2.5 mg PO DAILY [facility]; Protocol Last Admin: 10/24/24 08:39 Dose: 2.5 mg Atorvastatin Calcium (Atorvastatin Calcium 20 Mg Tablet) 20 mg PO DAILY [facility] Last Admin: 10/24/24 08:38 Dose: 20 mg Duloxetine HCl (Duloxetine Hcl 20 Mg Capsule.) 40 mg PO DAILY [facility] Last Admin: 10/24/24 08:37 Dose: 40 mg Fluticasone/Vilanterol (Fluticasone/Vilanterol 100/25 Blst.W.Dev) 1 puff INHALE RDAILY [facility] Last Admin: 10/24/24 08:35 Dose: 1 puff Gabapentin (Gabapentin 100 Mg Capsule) 200 mg PO TID [facility] Last Admin: 10/24/24 16:25 Dose: 200 mg Glipizide (Glipizide Xl 2.5 Mg Tab.Er.24) 2.5 mg PO DAILY [facility] Last Admin: 10/24/24 08:38 Dose: 2.5 mg Insulin Human Lispro (Insulin Lispro 100 Unit/Ml 3 Ml Vial) 0 unit SUBCUT TIDAC [facility]; Protocol Last Admin: 10/24/24 17:09 Dose: Not Given Lisinopril (Lisinopril 20 Mg Tablet) 20 mg PO DAILY [facility]; Protocol Last Admin: 10/24/24 08:39 Dose: 20 mg Lorazepam (Lorazepam 0.5 Mg Tablet) 0.5 mg PO TID [facility] Last Admin: 10/24/24 16:25 Dose: 0.5 mg Magnesium Hydroxide (Milk Of Magnesia 30 Ml Oral.Susp) 30 ml PO DAILY PRN PRN Reason: Constipation Last Admin: 10/24/24 08:36 Dose: 30 ml Mirtazapine (Mirtazapine 30 Mg Tablet) 30 mg PO BEDTIME [facility] Last Admin: 10/23/24 20:34 Dose: 30 mg Omeprazole (Omeprazole 20 Mg Capsule.Dr) 20 mg PO BID@0630,1630 [facility] Last Admin: 10/24/24 17:11 Dose: 20 mg Ondansetron HCl (Ondansetron Odt 4 Mg Tab.Rapdis) 4 mg TRANSLINGU Q8H PRN PRN Reason: Nausea Last Admin: 10/23/24 10:02 Dose: 4 mg Pramipexole Dihydrochloride (Pramipexole Di-Hcl 0.25 Mg Tablet) 0.25 mg PO BID [facility] Last Admin: 10/24/24 08:38 Dose: 0.25 mg Propranolol HCl (Propranolol Hcl 10 Mg Tablet) 10 mg PO TID [facility]; Protocol Last Admin: 10/24/24 16:26 Dose: 10 mg Simethicone (Simethicone 80 Mg Tab.Chew) 80 mg PO QIDWMHS [facility] Last Admin: 10/24/24 17:11 Dose: 80 mg Sitagliptin Phosphate (Sitagliptin Phosphate 25 Mg Tablet) 25 mg PO DAILY [facility] Last Admin: 10/24/24 08:38 Dose: 25 mg Trazodone HCl (Trazodone Hcl 50 Mg Tablet) 50 mg PO BEDTIME MRX1 PRN PRN Reason: Insomnia Last Admin: 10/23/24 20:35 Dose: 50 mg Allergies Allergies Allergy/AdvReac Type Severity Reaction Status Date / Time ampicillin Allergy Rash Verified 10/20/24 19:28 morphine Allergy Rash Verified 10/20/24 19:28 Penicillins Allergy Rash Verified 10/20/24 19:28 Assessment & Plan Assessment & Plan (1) MDD (major depressive disorder), recurrent episode, moderate: Status: Acute Code(s): F33.1 - Major depressive disorder, recurrent, moderate (2) RLS (restless legs syndrome): Status: Acute Code(s): G25.81 - Restless legs syndrome Plan Mrs. Barreto is a 78 year-old woman with hx of MDD who was assessed by N at request of her son who called 911 after pt had reported suicidal ideation with plan to OD. In the ED, pt adamantly denied suicidal ideation but reports feeling increasingly more depressed due to involuntary, ongoing movement of lower extremities. She attributes her depressed mood and increase anxious mood to RLS. She has also been treated as tardive akathisia, note that she was previously prescribed abilify. It is noted that she may have iron deficiency due to normocytic anemia which can exacerbate RLS. It is unclear which medications for hyperkinetic movements of the legs are actually helpful and furthermore it is not easily to differentiate whether it is tardive akathisia or RLS. She has been on psychotropic medications that are known to cause akathisia such as abilify. She reports subjective sense of restlessness. Involuntary movement seems to be throughout the day. We will have to do trial of medications that target akathisia such as propanolol and ativan versus medications such as pramipexol for RLS (note that in RLS there is an initial relief with dopamine agonist but can make it worse over time). In addition, will try iron deficiency as it is an underlying cause and exacerbating factor in RLS. PLAN / d/c pramipexol. olanzapine had also been discontinued. continue ativan, propanolol, cymbalta and remeron. MOCA 02/20, ACL 4.4 showing moderate cognitive impairment. IRON studies do not show iron deficiency but do show impairments in transferrin. normal protein level and no liver disease. may be related to omeprazole. Reason for continued inpatient stay Substantial Risk for: inability to function Time Spent With Patient Time: Total time managing care of this patient today ____ minutes.
[2024-10-24 20:00] VITALS: BP 132/60; PULSE 77; RESP 17; TEMP 36.3; O2SAT 96
[2024-10-24 20:14] VITALS: BP 132/60; PULSE 77
[2024-10-25 06:10] LABS: Glucose, Whole Blood 190 mg/dL (60-115)
[2024-10-25 08:00] VITALS: BP 135/78; PULSE 90; RESP 18; TEMP 36.8; O2SAT 100
--- NOTE | 2024-10-25 08:14 | HO.PSYCHPN ---
Subjective Subjective Date of Service: 10/25/24 Reason For Visit: SI with plan to OD on medications, increased anxie Interim History: met with patient. Discussed with nursing. Overall reported feeling tired. But then also stated she wanted to sleep more ie incongruent statements. Did deny feeling depressed or suicidal today. Has been pleasant with staff. Did notice BP concerns. Will adjust propranolol and Ativan frequency Medication Compliance: Yes Side effects from medications: No Attending Groups: No Review of Systems Acute medical concerns: No Mental Status Exam Mental Status Exam Narrative: Appearance: wearing hospital gown, fair hygiene, movement of lower extremities noted. Behavior: cooperative Psychomotor: constant movement of lower extremities Speech: clear, normal rate/rhythm/volume, spontaneous TP: linear TC: distressed by constant leg movement and sense of restlessness. Mood: tired Affect: congruent SI: denies HI: none VH/AH: none Delusions: none Memory/cog: alert, oriented x 1. MOCA on 10/24/202402/20, ACL 4.4 Diagnostics Vital Signs (24Hr): Vital Signs - 24 hr 10/24/24 08:32 10/24/24 16:26 10/24/24 20:00 Temperature 99.9 F 97.4 F Pulse Rate 81 77 Respiratory Rate 16 17 Blood Pressure 111/54 L 143/73 H 132/60 Pulse Oximetry 95 96 Oxygen Delivery Method Room Air Room Air 10/24/24 20:14 Temperature Pulse Rate 77 Respiratory Rate Blood Pressure 132/60 Pulse Oximetry Oxygen Delivery Method BMI result Body Mass Index 23.4 Labs 10/23/24 15:20 10/23/24 15:19 Labs: Laboratory Results - last 48 hr 10/23/24 10/23/24 10/23/24 15:19 15:20 16:31 WBC 6.4 RBC 4.03 L Hgb 11.8 L Hct 34.7 L MCV 86.1 MCH 29.3 MCHC 34.0 RDW 13.6 Plt Count 221 MPV 9.8 Immature Gran % (Auto) 0.3 Neut % (Auto) 64.6 Lymph % (Auto) 23.0 Parmer % (Auto) 10.4 Eos % (Auto) 1.2 Baso % (Auto) 0.5 Lymph # (Auto) 1.5 Parmer # (Auto) 0.7 Eos # (Auto) 0.1 Baso # (Auto) 0.0 Abs Immat Gran (auto) 0.02 Absolute Neuts (auto) 4.2 Absolute Nucleated RBC 0.000 Nucleated RBC % (auto) 0.0 Smear Tech's Comments VERIFIED Sodium 137 Potassium 4.5 Chloride 104 Carbon Dioxide 24 Anion Gap 14 BUN 26 H Creatinine 1.02 Estim Creat Clear Calc 32.8 Estimated GFR 53 POC Glucose 132 H Random Glucose 158 H Calcium 9.3 Iron TIBC % Saturation Unsat Iron Binding 10/24/24 10/24/24 10/24/24 06:51 11:08 12:19 WBC RBC Hgb Hct MCV MCH MCHC RDW Plt Count MPV Immature Gran % (Auto) Neut % (Auto) Lymph % (Auto) Parmer % (Auto) Eos % (Auto) Baso % (Auto) Lymph # (Auto) Parmer # (Auto) Eos # (Auto) Baso # (Auto) Abs Immat Gran (auto) Absolute Neuts (auto) Absolute Nucleated RBC Nucleated RBC % (auto) Smear Tech's Comments Sodium Potassium Chloride Carbon Dioxide Anion Gap BUN Creatinine Estim Creat Clear Calc Estimated GFR POC Glucose 204 H 95 Random Glucose Calcium Iron 65 TIBC 216 L % Saturation 30 Unsat Iron Binding 151 10/24/24 10/25/24 16:06 05:55 WBC RBC Hgb Hct MCV MCH MCHC RDW Plt Count MPV Immature Gran % (Auto) Neut % (Auto) Lymph % (Auto) Parmer % (Auto) Eos % (Auto) Baso % (Auto) Lymph # (Auto) Parmer # (Auto) Eos # (Auto) Baso # (Auto) Abs Immat Gran (auto) Absolute Neuts (auto) Absolute Nucleated RBC Nucleated RBC % (auto) Smear Tech's Comments Sodium Potassium Chloride Carbon Dioxide Anion Gap BUN Creatinine Estim Creat Clear Calc Estimated GFR POC Glucose 142 H 190 H Random Glucose Calcium Iron TIBC % Saturation Unsat Iron Binding Medications Medications Current Medications Acetaminophen (Acetaminophen 325 Mg Tablet) 650 mg PO Q6H PRN PRN Reason: Headache/Pain, Scale 1-10 Last Admin: 10/21/24 16:47 Dose: 650 mg Al Hydroxide/Mg Hydroxide (Magnesium Hydrox/Alum Hydrox 30 Ml Oral.Susp) 30 ml PO Q6H PRN PRN Reason: Heartburn/Nausea Last Admin: 10/23/24 11:04 Dose: 30 ml Albuterol Sulfate (Albuterol Sulfate 90 Mcg 8 Gm Inhaler) 2 puff INHALE Q4H PRN PRN Reason: Shortness Of Breath Or Wheezin Amlodipine Besylate (Amlodipine Besylate 2.5 Mg Tablet) 2.5 mg PO DAILY [facility], [facility]; Protocol Last Admin: 10/24/24 08:39 Dose: 2.5 mg Atorvastatin Calcium (Atorvastatin Calcium 20 Mg Tablet) 20 mg PO DAILY [facility] Last Admin: 10/24/24 08:38 Dose: 20 mg Duloxetine HCl (Duloxetine Hcl 20 Mg Capsule.) 40 mg PO DAILY [facility] Last Admin: 10/24/24 08:37 Dose: 40 mg Fluticasone/Vilanterol (Fluticasone/Vilanterol 100/25 Blst.W.Dev) 1 puff INHALE RDAILY [facility] Last Admin: 10/24/24 08:35 Dose: 1 puff Gabapentin (Gabapentin 100 Mg Capsule) 200 mg PO TID [facility] Last Admin: 10/24/24 20:14 Dose: 200 mg Glipizide (Glipizide Xl 2.5 Mg Tab.Er.24) 2.5 mg PO DAILY [facility] Last Admin: 10/24/24 08:38 Dose: 2.5 mg Insulin Human Lispro (Insulin Lispro 100 Unit/Ml 3 Ml Vial) 0 unit SUBCUT TIDAC [facility], [facility]1983; Protocol Last Admin: 10/25/24 07:39 Dose: 2 unit Lisinopril (Lisinopril 20 Mg Tablet) 20 mg PO DAILY [facility]; Protocol Last Admin: 10/24/24 08:39 Dose: 20 mg Lorazepam (Lorazepam 0.5 Mg Tablet) 0.5 mg PO TID [facility] Last Admin: 10/24/24 20:15 Dose: 0.5 mg Magnesium Hydroxide (Milk Of Magnesia 30 Ml Oral.Susp) 30 ml PO DAILY PRN PRN Reason: Constipation Last Admin: 10/24/24 08:36 Dose: 30 ml Mirtazapine (Mirtazapine 30 Mg Tablet) 30 mg PO BEDTIME [facility] Last Admin: 10/24/24 20:15 Dose: 30 mg Omeprazole (Omeprazole 20 Mg Capsule.) 20 mg PO BID@0630,1630 [facility] Last Admin: 10/25/24 05:53 Dose: 20 mg Ondansetron HCl (Ondansetron Odt 4 Mg Tab.Rapdis) 4 mg TRANSLINGU Q8H PRN PRN Reason: Nausea Last Admin: 10/23/24 10:02 Dose: 4 mg Pramipexole Dihydrochloride (Pramipexole Di-Hcl 0.25 Mg Tablet) 0.25 mg PO BID [facility] Last Admin: 10/24/24 20:15 Dose: 0.25 mg Propranolol HCl (Propranolol Hcl 10 Mg Tablet) 10 mg PO TID [facility]; Protocol Last Admin: 10/24/24 20:14 Dose: 10 mg Simethicone (Simethicone 80 Mg Tab.Chew) 80 mg PO QIDWMHS [facility] Last Admin: 10/24/24 20:15 Dose: 80 mg Sitagliptin Phosphate (Sitagliptin Phosphate 25 Mg Tablet) 25 mg PO DAILY [facility] Last Admin: 10/24/24 08:38 Dose: 25 mg Trazodone HCl (Trazodone Hcl 50 Mg Tablet) 50 mg PO BEDTIME MRX1 PRN PRN Reason: Insomnia Last Admin: 10/24/24 20:15 Dose: 50 mg Allergies Allergies Allergy/AdvReac Type Severity Reaction Status Date / Time ampicillin Allergy Rash Verified 10/20/24 19:28 morphine Allergy Rash Verified 10/20/24 19:28 Penicillins Allergy Rash Verified 10/20/24 19:28 Assessment & Plan Assessment & Plan (1) Gastroparesis: Status: Acute Code(s): K31.84 - Gastroparesis (2) Anxiety: Status: Acute Code(s): F41.9 - Anxiety disorder, unspecified (3) MDD (major depressive disorder), recurrent episode, moderate: Status: Acute Code(s): F33.1 - Major depressive disorder, recurrent, moderate Plan Anxiety,and depression with suicidal ideation 10/23/24: Continue with Cymbalta for pain and depression. Continue with Remeron-reports taking to help her with appetite and sleep. Continue with Ativan resume- continue with other medication that admitting provider on ready change yesterday, gabapentin in divided dose with some abnormal labs for kidney functions. BUN is improved. Estimate creatinine clearance is improving, GFR also improved, A1c 7.2. TSH is 2.14, and free T4 1.15 within normal limit. Continue with Mirapex 0.25 couple of times a day for restless leg. Per daughter history of Lamictal-which now is on held. History of Zoloft for a long time, history of Ativan. Multiple medication providers. History of Botox on her stomach for gastroparesis. Patient seen by Hospitalist on 10/23/24 with plan: Chronic abdominal painn/gastroparesis, chronic mild gastritis, history of diverticulosis Patient is at [facility], she has had Botox injections in the past last in March 2024 Patient had a recent upper endoscopy negative for H pylori or any abnormalities We will check a follow up UA due to positive leukocyte esterase, we will check a CBC and a BMP. If any abnormalities are noted will consider imaging Continues on duloxetine, may help with chronic pain. Continues with omeprazole twice daily Avoid constipation. Avoid opiates and anticholinergics Restless leg syndrome Patient continues on gabapentin and Mirapex twice daily Hypertension/hyperlipidemia Continue atorvastatin, lisinopril, and amlodipine Follow up blood pressures. Adjust as needed Type 2 diabetes Continue with glipizide and Januvia Recent A1c 7.2, acceptable range for her age. We will add sliding scale insulin to improve glucose control, to help with symptoms of gastroparesis Plan: Change from 5 to 15 minute checks for safety. She is on CV. Collateral done with the daughter on October 23. Treatment team will work on collateral and aftercare services. [facility], and has caregiver 2-3 hours after 1500 to self with meals and other stuff. Daughter is very supportive. Name is Merna: [phone]. Patient is independent able to manage her own medications. Per medical provider, order UA, CBC, and CMP. Continue to monitor for kidney functions. Started point of care 4 times a day with sliding scale. 10/25/2024: Change Ativan and propranolol to twice daily with hold parameters in place for sedation and blood pressure respectively Reason for continued inpatient stay Substantial Risk for: inability to function and rapid decompensation Time Spent With Patient Time: Total time managing care of this patient today ____ minutes.
[2024-10-25] MEDS: Fluticasone/Vilanterol 100/25 BLST.W.DEV 1 PUFF INHALE (08:39)
[2024-10-25 08:41] VITALS: BP 135/78
[2024-10-25 08:42] VITALS: BP 135/78; PULSE 90
[2024-10-25 11:24] LABS: Glucose, Whole Blood 177 mg/dL (60-115)
[2024-10-25 16:24] VITALS: BP 95/50; PULSE 91
--- NOTE | 2024-10-25 16:26 | PC.NURSE ---
3PM Propranolol held d/t decreased BP 95/50, p 91 on the left arm and 101/56, p92 on the right arm, also 3 PM Ativan held d/t sedation (dr Supa Turner aware).
[2024-10-25 16:37] LABS: Glucose, Whole Blood 170 mg/dL (60-115)
[2024-10-25 20:00] VITALS: BP 91/55; PULSE 97; RESP 16; TEMP 36.6; O2SAT 95
[2024-10-25 21:42] VITALS: BP 95/55; PULSE 97
[2024-10-26 07:09] LABS: Glucose, Whole Blood 185 mg/dL (60-115)
--- NOTE | 2024-10-26 07:26 | HO.PSYCHPN ---
Subjective Subjective Date of Service: 10/26/24 Reason For Visit: SI with plan to OD on medications, increased anxie Interim History: met with patient. Discussed with nursing. Overall reported feeling tired- lowered Ativan yesterday to twice daily round 3 times per day. Mood nor gabapentin from 200 mg 3 times per day to 100 mg 3 times per day. That being said has been in the milieu. Eating breakfast. Ambulating well. Otherwise not feeling depressed or suicidal today. Has been pleasant with staff. Medication Compliance: Yes Side effects from medications: Yes ( maybe sedation) Attending Groups: Yes Review of Systems Acute medical concerns: No Mental Status Exam Mental Status Exam Narrative: Appearance: wearing hospital gown, fair hygiene, movement of lower extremities noted. Behavior: cooperative Psychomotor: constant movement of lower extremities Speech: clear, normal rate/rhythm/volume, spontaneous TP: linear TC: distressed by constant leg movement and sense of restlessness. Mood: tired Affect: congruent SI: denies HI: none VH/AH: none Delusions: none Memory/cog: alert, oriented x 1. MOCA on 10/24/202402/20, ACL 4.4 Diagnostics Vital Signs (24Hr): Vital Signs - 24 hr 10/25/24 08:00 10/25/24 08:41 10/25/24 08:42 Temperature 98.2 F Pulse Rate 90 90 Respiratory Rate 18 Blood Pressure 135/78 135/78 135/78 Pulse Oximetry 100 Oxygen Delivery Method Room Air 10/25/24 08:42 10/25/24 16:24 10/25/24 20:00 Temperature 97.8 F Pulse Rate 91 97 Respiratory Rate 16 Blood Pressure 135/78 95/50 L 91/55 L Pulse Oximetry 95 Oxygen Delivery Method Room Air 10/25/24 21:42 Temperature Pulse Rate 97 Respiratory Rate Blood Pressure 95/55 L Pulse Oximetry Oxygen Delivery Method BMI result Body Mass Index 23.4 Labs 10/23/24 15:20 10/23/24 15:19 Labs: Laboratory Results - last 48 hr 10/24/24 10/24/24 10/24/24 11:08 12:19 16:06 POC Glucose 95 142 H Iron 65 TIBC 216 L % Saturation 30 Unsat Iron Binding 151 10/25/24 10/25/24 10/25/24 05:55 11:15 16:33 POC Glucose 190 H 177 H 170 H Iron TIBC % Saturation Unsat Iron Binding 10/26/24 07:05 POC Glucose 185 H Iron TIBC % Saturation Unsat Iron Binding Medications Medications Current Medications Acetaminophen (Acetaminophen 325 Mg Tablet) 650 mg PO Q6H PRN PRN Reason: Headache/Pain, Scale 1-10 Last Admin: 10/25/24 11:20 Dose: 650 mg Al Hydroxide/Mg Hydroxide (Magnesium Hydrox/Alum Hydrox 30 Ml Oral.Susp) 30 ml PO Q6H PRN PRN Reason: Heartburn/Nausea Last Admin: 10/23/24 11:04 Dose: 30 ml Albuterol Sulfate (Albuterol Sulfate 90 Mcg 8 Gm Inhaler) 2 puff INHALE Q4H PRN PRN Reason: Shortness Of Breath Or Wheezin Amlodipine Besylate (Amlodipine Besylate 2.5 Mg Tablet) 2.5 mg PO DAILY [facility]; Protocol Last Admin: 10/25/24 08:42 Dose: 2.5 mg Atorvastatin Calcium (Atorvastatin Calcium 20 Mg Tablet) 20 mg PO DAILY [facility] Last Admin: 10/25/24 08:42 Dose: 20 mg Duloxetine HCl (Duloxetine Hcl 20 Mg Capsule.Dr) 40 mg PO DAILY [facility] Last Admin: 10/25/24 08:41 Dose: 40 mg Fluticasone/Vilanterol (Fluticasone/Vilanterol 100/25 Blst.W.Dev) 1 puff INHALE RDAILY [facility] Last Admin: 10/25/24 08:39 Dose: 1 puff Gabapentin (Gabapentin 100 Mg Capsule) 200 mg PO TID [facility] Last Admin: 10/25/24 21:09 Dose: 200 mg Glipizide (Glipizide Xl 2.5 Mg Tab.Er.24) 2.5 mg PO DAILY [facility] Last Admin: 10/25/24 08:40 Dose: 2.5 mg Insulin Human Lispro (Insulin Lispro 100 Unit/Ml 3 Ml Vial) 0 unit SUBCUT TIDAC [facility]; Protocol Last Admin: 10/25/24 16:42 Dose: 2 unit Lisinopril (Lisinopril 20 Mg Tablet) 20 mg PO DAILY [facility]; Protocol Last Admin: 10/25/24 08:41 Dose: 20 mg Lorazepam (Lorazepam 0.5 Mg Tablet) 0.5 mg PO BID [facility] Last Admin: 10/25/24 21:09 Dose: 0.5 mg Magnesium Hydroxide (Milk Of Magnesia 30 Ml Oral.Susp) 30 ml PO DAILY PRN PRN Reason: Constipation Last Admin: 10/24/24 08:36 Dose: 30 ml Mirtazapine (Mirtazapine 30 Mg Tablet) 30 mg PO BEDTIME [facility] Last Admin: 10/25/24 21:10 Dose: 30 mg Omeprazole (Omeprazole 20 Mg Capsule.Dr) 20 mg PO BID@0630,1630 [facility] Last Admin: 10/26/24 06:07 Dose: 20 mg Ondansetron HCl (Ondansetron Odt 4 Mg Tab.Rapdis) 4 mg TRANSLINGU Q8H PRN PRN Reason: Nausea Last Admin: 10/23/24 10:02 Dose: 4 mg Propranolol HCl (Propranolol Hcl 10 Mg Tablet) 10 mg PO BID [facility]; Protocol Last Admin: 10/25/24 21:42 Dose: 10 mg Simethicone (Simethicone 80 Mg Tab.Chew) 80 mg PO QIDWMHS [facility] Last Admin: 10/25/24 21:09 Dose: 80 mg Sitagliptin Phosphate (Sitagliptin Phosphate 25 Mg Tablet) 25 mg PO DAILY [facility] Last Admin: 10/25/24 08:42 Dose: 25 mg Trazodone HCl (Trazodone Hcl 50 Mg Tablet) 50 mg PO BEDTIME MRX1 PRN PRN Reason: Insomnia Last Admin: 10/24/24 20:15 Dose: 50 mg Allergies Allergies Allergy/AdvReac Type Severity Reaction Status Date / Time ampicillin Allergy Rash Verified 10/20/24 19:28 morphine Allergy Rash Verified 10/20/24 19:28 Penicillins Allergy Rash Verified 10/20/24 19:28 Assessment & Plan Assessment & Plan (1) Gastroparesis: Status: Acute Code(s): K31.84 - Gastroparesis (2) Anxiety: Status: Acute Code(s): F41.9 - Anxiety disorder, unspecified (3) MDD (major depressive disorder), recurrent episode, moderate: Status: Acute Code(s): F33.1 - Major depressive disorder, recurrent, moderate Plan Anxiety,and depression with suicidal ideation 10/23/24: Continue with Cymbalta for pain and depression. Continue with Remeron-reports taking to help her with appetite and sleep. Continue with Ativan resume- continue with other medication that admitting provider on ready change yesterday, gabapentin in divided dose with some abnormal labs for kidney functions. BUN is improved. Estimate creatinine clearance is improving, GFR also improved, A1c 7.2. TSH is 2.14, and free T4 1.15 within normal limit. Continue with Mirapex 0.25 couple of times a day for restless leg. Per daughter history of Lamictal-which now is on held. History of Zoloft for a long time, history of Ativan. Multiple medication providers. History of Botox on her stomach for gastroparesis. Patient seen by Hospitalist on 10/23/24 with plan: Chronic abdominal painn/gastroparesis, chronic mild gastritis, history of diverticulosis Patient is at [facility], she has had Botox injections in the past last in March 2024 Patient had a recent upper endoscopy negative for H pylori or any abnormalities We will check a follow up UA due to positive leukocyte esterase, we will check a CBC and a BMP. If any abnormalities are noted will consider imaging Continues on duloxetine, may help with chronic pain. Continues with omeprazole twice daily Avoid constipation. Avoid opiates and anticholinergics Restless leg syndrome Patient continues on gabapentin and Mirapex twice daily Hypertension/hyperlipidemia Continue atorvastatin, lisinopril, and amlodipine Follow up blood pressures. Adjust as needed Type 2 diabetes Continue with glipizide and Januvia Recent A1c 7.2, acceptable range for her age. We will add sliding scale insulin to improve glucose control, to help with symptoms of gastroparesis Plan: Change from 5 to 15 minute checks for safety. She is on CV. Collateral done with the daughter on October 23. Treatment team will work on collateral and aftercare services. [facility], and has caregiver 2-3 hours after 1500 to self with meals and other stuff. Daughter is very supportive. Name is Merna: [phone]. Patient is independent able to manage her own medications. Per medical provider, order UA, CBC, and CMP. Continue to monitor for kidney functions. Started point of care 4 times a day with sliding scale. 10/25/2024: Change Ativan and propranolol to twice daily with hold parameters in place for sedation and blood pressure respectively 7 size 25: Lower gabapentin from 200 mg 3 times per day to 100 mg 3 times per day Reason for continued inpatient stay Substantial Risk for: rapid decompensation Time Spent With Patient Time: Total time managing care of this patient today ____ minutes.
[2024-10-26 07:50] VITALS: BP 129/67; PULSE 80; RESP 18; TEMP 36.1; O2SAT 97
[2024-10-26] MEDS: Fluticasone/Vilanterol 100/25 BLST.W.DEV 1 PUFF INHALE (08:29)
[2024-10-26 08:30] VITALS: BP 129/67; PULSE 80
[2024-10-26 08:31] VITALS: BP 129/67
[2024-10-26 11:01] LABS: Glucose, Whole Blood 189 mg/dL (60-115)
--- NOTE | 2024-10-26 11:13 | PC.NURSE ---
Bailee reported fatigue x two days and Dr. Turner notified.
[2024-10-26 16:23] LABS: Glucose, Whole Blood 170 mg/dL (60-115)
[2024-10-26 20:00] VITALS: PULSE 88; RESP 18; TEMP 36.4; O2SAT 97
[2024-10-26 20:13] VITALS: BP 121/67; PULSE 88
[2024-10-27 06:53] LABS: Glucose, Whole Blood 215 mg/dL (60-115)
[2024-10-27 08:00] VITALS: BP 111/79; PULSE 86; RESP 16; TEMP 36.4; O2SAT 94
[2024-10-27] MEDS: Fluticasone/Vilanterol 100/25 BLST.W.DEV 1 PUFF INHALE (08:36)
--- NOTE | 2024-10-27 11:00 | P.PNPSI_ITS ---
Subjective Subjective Date of Service: 10/27/24 Reason For Visit: SI with plan to OD on medications, increased anxie Interim History: met with patient. Discussed with nursing. Overall reported feeling less tired today- lowered Ativan and gabapentin. In milieu, attending groups. Abdo discomfort today- not constipated, some cramping and nausea (has gastroparesis). Ate breakfast. Ambulating well. Otherwise not feeling depressed or suicidal today. Has been pleasant with staff. Medication Compliance: Yes Side effects from medications: No Attending Groups: Yes Review of Systems Review of Systems abdo discomfort/cramping and nausea- reports similar to gastroparesis symptoms in past Mental Status Exam Mental Status Exam Narrative: Appearance: wearing hospital gown, fair hygiene, movement of lower extremities noted. Behavior: cooperative Psychomotor: constant movement of lower extremities Speech: clear, normal rate/rhythm/volume, spontaneous TP: linear TC: distressed by nausea Mood: ok Affect: congruent SI: denies HI: none VH/AH: none Delusions: none Memory/cog: alert, oriented x 1. MOCA on 10/24/202402/20, ACL 4.4 Diagnostics Vital Signs (24Hr): Vital Signs - 24 hr 10/26/24 20:00 10/26/24 20:13 10/27/24 08:00 Temperature 97.5 F 97.5 F Pulse Rate 88 88 86 Respiratory Rate 18 16 Blood Pressure 121/67 111/79 Pulse Oximetry 97 94 Oxygen Delivery Method Room Air Room Air BMI result Body Mass Index 23.4 Labs 10/23/24 15:20 10/23/24 15:19 Labs: Laboratory Results - last 48 hr 10/25/24 10/25/24 10/26/24 11:15 16:33 07:05 POC Glucose 177 H 170 H 185 H 10/26/24 10/26/24 10/27/24 10:57 16:19 06:45 POC Glucose 189 H 170 H 215 H Medications Medications Current Medications Acetaminophen (Acetaminophen 325 Mg Tablet) 650 mg PO Q6H PRN PRN Reason: Headache/Pain, Scale 1-10 Last Admin: 10/26/24 18:34 Dose: 650 mg Al Hydroxide/Mg Hydroxide (Magnesium Hydrox/Alum Hydrox 30 Ml Oral.Susp) 30 ml PO Q6H PRN PRN Reason: Heartburn/Nausea Last Admin: 10/23/24 11:04 Dose: 30 ml Albuterol Sulfate (Albuterol Sulfate 90 Mcg 8 Gm Inhaler) 2 puff INHALE Q4H PRN PRN Reason: Shortness Of Breath Or Wheezin Amlodipine Besylate (Amlodipine Besylate 2.5 Mg Tablet) 2.5 mg PO DAILY [facility]; Protocol Last Admin: 10/27/24 08:40 Dose: 2.5 mg Atorvastatin Calcium (Atorvastatin Calcium 20 Mg Tablet) 20 mg PO DAILY [facility] Last Admin: 10/27/24 08:38 Dose: 20 mg Duloxetine HCl (Duloxetine Hcl 20 Mg Capsule.) 40 mg PO DAILY [facility] Last Admin: 10/27/24 08:43 Dose: 40 mg Fluticasone/Vilanterol (Fluticasone/Vilanterol 100/25 Blst.W.Dev) 1 puff INHALE RDAILY [facility] Last Admin: 10/27/24 08:36 Dose: 1 puff Gabapentin (Gabapentin 100 Mg Capsule) 100 mg PO TID [facility] Last Admin: 10/27/24 08:40 Dose: 100 mg Glipizide (Glipizide Xl 2.5 Mg Tab.Er.24) 2.5 mg PO DAILY [facility] Last Admin: 10/27/24 08:37 Dose: 2.5 mg Insulin Human Lispro (Insulin Lispro 100 Unit/Ml 3 Ml Vial) 0 unit SUBCUT TIDAC [facility]; Protocol Last Admin: 10/27/24 07:44 Dose: 4 unit Lisinopril (Lisinopril 20 Mg Tablet) 20 mg PO DAILY [facility]; Protocol Last Admin: 10/27/24 08:38 Dose: 20 mg Lorazepam (Lorazepam 0.5 Mg Tablet) 0.5 mg PO BID [facility] Last Admin: 10/27/24 08:37 Dose: 0.5 mg Magnesium Hydroxide (Milk Of Magnesia 30 Ml Oral.Susp) 30 ml PO DAILY PRN PRN Reason: Constipation Last Admin: 10/24/24 08:36 Dose: 30 ml Mirtazapine (Mirtazapine 30 Mg Tablet) 30 mg PO BEDTIME [facility] Last Admin: 10/26/24 20:14 Dose: 30 mg Omeprazole (Omeprazole 20 Mg Capsule.) 20 mg PO BID@0630,1630 [facility] Last Admin: 10/27/24 06:46 Dose: 20 mg Ondansetron HCl (Ondansetron Odt 4 Mg Tab.Rapdis) 4 mg TRANSLINGU Q8H PRN PRN Reason: Nausea Last Admin: 10/27/24 08:39 Dose: 4 mg Propranolol HCl (Propranolol Hcl 10 Mg Tablet) 10 mg PO BID [facility]; Protocol Last Admin: 10/27/24 08:39 Dose: 10 mg Simethicone (Simethicone 80 Mg Tab.Chew) 80 mg PO QIDWMHS [facility] Last Admin: 10/27/24 08:37 Dose: 80 mg Sitagliptin Phosphate (Sitagliptin Phosphate 25 Mg Tablet) 25 mg PO DAILY [facility] Last Admin: 10/27/24 08:38 Dose: 25 mg Trazodone HCl (Trazodone Hcl 50 Mg Tablet) 50 mg PO BEDTIME MRX1 PRN PRN Reason: Insomnia Last Admin: 10/24/24 20:15 Dose: 50 mg Allergies Allergies Allergy/AdvReac Type Severity Reaction Status Date / Time ampicillin Allergy Rash Verified 10/20/24 19:28 morphine Allergy Rash Verified 10/20/24 19:28 Penicillins Allergy Rash Verified 10/20/24 19:28 Assessment & Plan Assessment & Plan (1) Gastroparesis: Status: Acute Code(s): K31.84 - Gastroparesis (2) Anxiety: Status: Acute Code(s): F41.9 - Anxiety disorder, unspecified (3) MDD (major depressive disorder), recurrent episode, moderate: Status: Acute Code(s): F33.1 - Major depressive disorder, recurrent, moderate Plan Anxiety,and depression with suicidal ideation 10/23/24: Continue with Cymbalta for pain and depression. Continue with Remeron-reports taking to help her with appetite and sleep. Continue with Ativan resume- continue with other medication that admitting provider on ready change yesterday, gabapentin in divided dose with some abnormal labs for kidney functions. BUN is improved. Estimate creatinine clearance is improving, GFR also improved, A1c 7.2. TSH is 2.14, and free T4 1.15 within normal limit. Continue with Mirapex 0.25 couple of times a day for restless leg. Per daughter history of Lamictal-which now is on held. History of Zoloft for a long time, history of Ativan. Multiple medication providers. History of Botox on her stomach for gastroparesis. Patient seen by Hospitalist on 10/23/24 with plan: Chronic abdominal painn/gastroparesis, chronic mild gastritis, history of diverticulosis Patient is at [facility], she has had Botox injections in the past last in March 2024 Patient had a recent upper endoscopy negative for H pylori or any abnormalities We will check a follow up UA due to positive leukocyte esterase, we will check a CBC and a BMP. If any abnormalities are noted will consider imaging Continues on duloxetine, may help with chronic pain. Continues with omeprazole twice daily Avoid constipation. Avoid opiates and anticholinergics Restless leg syndrome Patient continues on gabapentin and Mirapex twice daily Hypertension/hyperlipidemia Continue atorvastatin, lisinopril, and amlodipine Follow up blood pressures. Adjust as needed Type 2 diabetes Continue with glipizide and Januvia Recent A1c 7.2, acceptable range for her age. We will add sliding scale insulin to improve glucose control, to help with symptoms of gastroparesis Plan: Change from 5 to 15 minute checks for safety. She is on CV. Collateral done with the daughter on October 23. Treatment team will work on collateral and aftercare services. [facility], and has caregiver 2-3 hours after 1500 to self with meals and other stuff. Daughter is very supportive. Name is Merna: [phone]. Patient is independent able to manage her own medications. Per medical provider, order UA, CBC, and CMP. Continue to monitor for kidney functions. Started point of care 4 times a day with sliding scale. 10/25/2024: Change Ativan and propranolol to twice daily with hold parameters in place for sedation and blood pressure respectively 10/26: Lower gabapentin from 200 mg 3 times per day to 100 mg 3 times per day 7: bentyl and reglan for abdo discomfort and nausea. Reason for continued inpatient stay Substantial Risk for: inability to function and rapid decompensation Time Spent With Patient Time: Total time managing care of this patient today ____ minutes.
[2024-10-27] MEDS: Magnesium Hydrox/Alum Hydrox 30 ML ORAL.SUSP PO (11:21)
[2024-10-27 11:29] LABS: Glucose, Whole Blood 117 mg/dL (60-115)
[2024-10-27 16:28] LABS: Glucose, Whole Blood 156 mg/dL (60-115)
[2024-10-27 20:00] VITALS: BP 121/66; PULSE 80; RESP 16; TEMP 36.3; O2SAT 95
[2024-10-27 20:15] VITALS: BP 121/66; PULSE 80
[2024-10-28 06:53] LABS: Glucose, Whole Blood 195 mg/dL (60-115)
[2024-10-28 08:00] VITALS: BP 132/71; PULSE 86; RESP 14; TEMP 36.1; O2SAT 95
--- NOTE | 2024-10-28 08:50 | HO.PSYCHPN ---
Subjective Subjective Date of Service: 10/28/24 Reason For Visit: SI with plan to OD on medications, increased anxie Subjective Notes: Conditional Voluntary Interim History: Pt slept through the night. He presents again as more anxious, dysphoric, poor frustration tolerance. No SI/HI. No overt psychosis. seemed increase involuntary leg movements. She reports feeling depressed. She is worried about family meeting and whether she will go somewhere or not. Medication Compliance: Yes Review of Systems Review of Systems abdo discomfort/cramping and nausea- reports similar to gastroparesis symptoms in past Yes all other systems are reviewed and are negative Mental Status Exam Mental Status Exam Narrative: Appearance: wearing hospital gown, fair hygiene, movement of lower extremities noted. Behavior: cooperative Psychomotor: constant movement of lower extremities Speech: clear, normal rate/rhythm/volume, spontaneous TP: linear TC: distressed by nausea Mood: ok Affect: congruent SI: denies HI: none VH/AH: none Delusions: none Memory/cog: alert, oriented x 1. MOCA on 10/24/202402/20, ACL 4.4 Diagnostics Vital Signs (24Hr): Vital Signs - 24 hr 10/27/24 20:00 10/27/24 20:15 10/28/24 08:00 Temperature 97.3 F 97 F Pulse Rate 80 80 86 Respiratory Rate 16 14 Blood Pressure 121/66 121/66 132/71 Pulse Oximetry 95 95 Oxygen Delivery Method Room Air Room Air BMI result Body Mass Index 23.4 Labs 10/29/24 15:42 10/29/24 15:42 Labs: Laboratory Results - last 48 hr 10/26/24 10/26/24 10/27/24 10:57 16:19 06:45 POC Glucose 189 H 170 H 215 H 10/27/24 10/27/24 10/28/24 11:24 16:14 06:32 POC Glucose 117 H 156 H 195 H Medications Medications Current Medications Acetaminophen (Acetaminophen 325 Mg Tablet) 650 mg PO Q6H PRN PRN Reason: Headache/Pain, Scale 1-10 Last Admin: 10/26/24 18:34 Dose: 650 mg Al Hydroxide/Mg Hydroxide (Magnesium Hydrox/Alum Hydrox 30 Ml Oral.Susp) 30 ml PO Q6H PRN PRN Reason: Heartburn/Nausea Last Admin: 10/27/24 11:21 Dose: 30 ml Albuterol Sulfate (Albuterol Sulfate 90 Mcg 8 Gm Inhaler) 2 puff INHALE Q4H PRN PRN Reason: Shortness Of Breath Or Wheezin Amlodipine Besylate (Amlodipine Besylate 2.5 Mg Tablet) 2.5 mg PO DAILY [facility]; Protocol Last Admin: 10/28/24 08:16 Dose: 2.5 mg Atorvastatin Calcium (Atorvastatin Calcium 20 Mg Tablet) 20 mg PO DAILY [facility] Last Admin: 10/28/24 08:15 Dose: 20 mg Dicyclomine HCl (Dicyclomine Hcl 10 Mg Capsule) 10 mg PO Q4H PRN PRN Reason: abdominal cramping Last Admin: 10/27/24 16:12 Dose: 10 mg Duloxetine HCl (Duloxetine Hcl 20 Mg Capsule.Dr) 40 mg PO DAILY [facility] Last Admin: 10/28/24 08:14 Dose: 40 mg Fluticasone/Vilanterol (Fluticasone/Vilanterol 100/25 Blst.W.Dev) 1 puff INHALE RDAILY [facility] Last Admin: 10/27/24 08:36 Dose: 1 puff Gabapentin (Gabapentin 100 Mg Capsule) 100 mg PO TID [facility] Last Admin: 10/28/24 08:15 Dose: 100 mg Glipizide (Glipizide Xl 2.5 Mg Tab.Er.24) 2.5 mg PO DAILY [facility] Last Admin: 10/28/24 08:14 Dose: 2.5 mg Insulin Human Lispro (Insulin Lispro 100 Unit/Ml 3 Ml Vial) 0 unit SUBCUT TIDAC [facility]; Protocol Last Admin: 10/28/24 08:12 Dose: 1 unit Lisinopril (Lisinopril 20 Mg Tablet) 20 mg PO DAILY [facility]; Protocol Last Admin: 10/28/24 08:18 Dose: 20 mg Lorazepam (Lorazepam 0.5 Mg Tablet) 0.5 mg PO BID [facility] Last Admin: 10/28/24 08:16 Dose: 0.5 mg Magnesium Hydroxide (Milk Of Magnesia 30 Ml Oral.Susp) 30 ml PO DAILY PRN PRN Reason: Constipation Last Admin: 10/24/24 08:36 Dose: 30 ml Metoclopramide HCl (Metoclopramide Hcl 10 Mg Tablet) 10 mg PO Q6H PRN PRN Reason: Nausea Mirtazapine (Mirtazapine 30 Mg Tablet) 30 mg PO BEDTIME [facility] Last Admin: 10/27/24 20:16 Dose: 30 mg Omeprazole (Omeprazole 20 Mg Capsule.) 20 mg PO BID@0630,1630 [facility] Last Admin: 10/28/24 05:51 Dose: 20 mg Propranolol HCl (Propranolol Hcl 10 Mg Tablet) 10 mg PO BID [facility]; Protocol Last Admin: 10/28/24 08:16 Dose: 10 mg Simethicone (Simethicone 80 Mg Tab.Chew) 80 mg PO QIDWMHS [facility] Last Admin: 10/28/24 08:15 Dose: 80 mg Sitagliptin Phosphate (Sitagliptin Phosphate 25 Mg Tablet) 25 mg PO DAILY [facility] Last Admin: 10/28/24 08:15 Dose: 25 mg Trazodone HCl (Trazodone Hcl 50 Mg Tablet) 50 mg PO BEDTIME MRX1 PRN PRN Reason: Insomnia Last Admin: 10/27/24 20:16 Dose: 50 mg Allergies Allergies Allergy/AdvReac Type Severity Reaction Status Date / Time ampicillin Allergy Rash Verified 10/20/24 19:28 morphine Allergy Rash Verified 10/20/24 19:28 Penicillins Allergy Rash Verified 10/20/24 19:28 Assessment & Plan Assessment & Plan (1) Gastroparesis: Status: Acute Code(s): K31.84 - Gastroparesis (2) MDD (major depressive disorder), recurrent episode, moderate: Status: Acute Code(s): F33.1 - Major depressive disorder, recurrent, moderate Plan Chronic abdominal painn/gastroparesis, chronic mild gastritis, history of diverticulosis Patient is at [facility], she has had Botox injections in the past last in March 2024 Patient had a recent upper endoscopy negative for H pylori or any abnormalities We will check a follow up UA due to positive leukocyte esterase, we will check a CBC and a BMP. If any abnormalities are noted will consider imaging Continues on duloxetine, may help with chronic pain. Continues with omeprazole twice daily Avoid constipation. Avoid opiates and anticholinergics Restless leg syndrome Patient continues on gabapentin and Mirapex twice daily Hypertension/hyperlipidemia Continue atorvastatin, lisinopril, and amlodipine Follow up blood pressures. Adjust as needed Type 2 diabetes Continue with glipizide and Januvia Recent A1c 7.2, acceptable range for her age. We will add sliding scale insulin to improve glucose control, to help with symptoms of gastroparesis Plan: Change from 5 to 15 minute checks for safety. She is on CV. Collateral done with the daughter on October 23. Treatment team will work on collateral and aftercare services. [facility], and has caregiver 2-3 hours after 1500 to self with meals and other stuff. Daughter is very supportive. Name is Merna: [phone]. Patient is independent able to manage her own medications. Per medical provider, order UA, CBC, and CMP. Continue to monitor for kidney functions. Started point of care 4 times a day with sliding scale. 10/25/2024: Change Ativan and propranolol to twice daily with hold parameters in place for sedation and blood pressure respectively 10/26: Lower gabapentin from 200 mg 3 times per day to 100 mg 3 times per day 10/27: bentyl and reglan for abdo discomfort and nausea. 10/28 DC reglan due to exacerbation of RLS versus AKAthisia. increase cymbalta to 60mg po daily. noted ativan and gabapentin lowered due to sedation, monitor exacerbation of RLS/ Akathisia. Reason for continued inpatient stay Substantial Risk for: inability to function Time Spent With Patient Time: Total time managing care of this patient today ____ minutes.
[2024-10-28 10:54] LABS: Glucose, Whole Blood 288 mg/dL (60-115)
[2024-10-28] MEDS: Fluticasone/Vilanterol 100/25 BLST.W.DEV 1 PUFF INHALE (11:03)
[2024-10-28] MEDS: Magnesium Hydrox/Alum Hydrox 30 ML ORAL.SUSP PO (11:32)
[2024-10-28 16:01] LABS: Glucose, Whole Blood 132 mg/dL (60-115)
[2024-10-28 20:00] VITALS: BP 98/54; PULSE 83; RESP 16; TEMP 36.4; O2SAT 96
[2024-10-28 20:32] LABS: Glucose, Whole Blood 210 mg/dL (60-115)
[2024-10-29 07:16] LABS: Glucose, Whole Blood 188 mg/dL (60-115)
[2024-10-29 07:39] VITALS: BP 115/76; PULSE 94; RESP 18; TEMP 36.1; O2SAT 95
[2024-10-29] MEDS: Fluticasone/Vilanterol 100/25 BLST.W.DEV 1 PUFF INHALE (08:17)
[2024-10-29 11:21] LABS: Glucose, Whole Blood 265 mg/dL (60-115)
[2024-10-29] MEDS: Magnesium Hydrox/Alum Hydrox 30 ML ORAL.SUSP PO (14:05)
[2024-10-29 15:46] LABS: MANUAL DIFF FLAG NO
[2024-10-29 15:48] LABS: Hematocrit 29.9 % (37.0-47.0); Hemoglobin 10.4 g/dl (12.0-16.0); Imm Gran Abs Auto 0.05 X10*3/uL (0.00-0.03); Imm Gran Pct Auto 0.5 % (0.0-0.4); Lymphocytes Absolute Auto 1.6 X10*3/uL (1.2-4.9); Mean Corpuscular HGB Conc 34.8 g/dl (31.0-35.0); Mean Corpuscular Hemoglobin 29.8 pg (27.0-33.0); Mean Corpuscular Volume 85.7 fL (80.0-98.0); NRBC Abs Auto 0.000 X10*3/uL (0.0-0.012); NRBC Pct Auto 0.0 /100WBC (0.0-0.2); Platelet Count 271 X10*3/uL (160-400); Red Blood Count 3.49 X10*6/uL (4.20-5.50); White Blood Count 11.0 X10*3/uL (4.8-10.8)
[2024-10-29 16:01] LABS: Alanine Aminotransferase 21 U/L (0-31); Albumin Level 4.1 g/dL (3.5-5.0); Alkaline Phosphatase 67 U/L (39-117); Anion Gap 12 (12-20); Aspartate Amino Transferase 15 U/L (5-31); Blood Urea Nitrogen 39 mg/dL (9-16); Calcium 8.9 mg/dL (8.4-10.2); Carbon Dioxide 24 mmol/L (22-29); Chloride 102 mmol/L (96-108); Creatinine Clr Calc Pharmacy 27.3; Estimated Glomerular Filt Rate 42; Potassium 4.7 mmol/L (3.3-5.1); Sodium 133 mmol/L (135-145); Total Protein 6.4 g/dL (6.5-8.0)
[2024-10-29 16:28] LABS: Glucose, Whole Blood 156 mg/dL (60-115)
--- NOTE | 2024-10-29 16:38 | HO.PSYCHPN ---
Subjective Subjective Date of Service: 10/29/24 Reason For Visit: SI with plan to OD on medications, increased anxie Subjective Notes: Conditional Voluntary Interim History: Pt slept through the night. She presents as dysphoric, more anxious and somatically preoccupied. She reports not feeling well, feeling weak. No SI/HI. We had family meeting, son reports she is not able to return back home as he can't care for her any longer. Review of Systems Review of Systems abdo discomfort/cramping and nausea- reports similar to gastroparesis symptoms in past Yes all other systems are reviewed and are negative Mental Status Exam Mental Status Exam Narrative: Appearance: wearing hospital gown, fair hygiene, movement of lower extremities noted. Behavior: cooperative Psychomotor: constant movement of lower extremities Speech: clear, normal rate/rhythm/volume, spontaneous TP: linear TC: distressed by nausea Mood: ok Affect: congruent SI: denies HI: none VH/AH: none Delusions: none Memory/cog: alert, oriented x 1. MOCA on 10/24/202402/20, ACL 4.4 Diagnostics Vital Signs (24Hr): Vital Signs - 24 hr 10/28/24 20:00 10/28/24 20:00 10/29/24 07:39 Temperature 97.6 F 97 F Pulse Rate 83 83 94 Respiratory Rate 16 18 Blood Pressure 98/54 L 98/54 L 115/76 Pulse Oximetry 96 95 Oxygen Delivery Method Room Air Room Air BMI result Body Mass Index 23.4 Labs 10/29/24 15:42 10/29/24 15:42 Labs: Laboratory Results - last 48 hr 10/28/24 10/28/24 10/28/24 06:32 10:50 15:54 WBC RBC Hgb Hct MCV MCH MCHC RDW Plt Count MPV Immature Gran % (Auto) Neut % (Auto) Lymph % (Auto) [place] % (Auto) Eos % (Auto) Baso % (Auto) Lymph # (Auto) [place] # (Auto) Eos # (Auto) Baso # (Auto) Abs Immat Gran (auto) Absolute Neuts (auto) Absolute Nucleated RBC Nucleated RBC % (auto) Sodium Potassium Chloride Carbon Dioxide Anion Gap BUN Creatinine Estim Creat Clear Calc Estimated GFR POC Glucose 195 H 288 H 132 H Random Glucose Calcium Total Bilirubin AST ALT Alkaline Phosphatase Total Protein Albumin 10/28/24 10/29/2425 20:28 06:47 11:16 WBC RBC Hgb Hct MCV MCH MCHC RDW Plt Count MPV Immature Gran % (Auto) Neut % (Auto) Lymph % (Auto) [place] % (Auto) Eos % (Auto) Baso % (Auto) Lymph # (Auto) [place] # (Auto) Eos # (Auto) Baso # (Auto) Abs Immat Gran (auto) Absolute Neuts (auto) Absolute Nucleated RBC Nucleated RBC % (auto) Sodium Potassium Chloride Carbon Dioxide Anion Gap BUN Creatinine Estim Creat Clear Calc Estimated GFR POC Glucose 210 H 188 H 265 H Random Glucose Calcium Total Bilirubin AST ALT Alkaline Phosphatase Total Protein Albumin 10/29/24 10/29/24 15:42 16:24 WBC 11.0 H RBC 3.49 L Hgb 10.4 L Hct 29.9 L MCV 85.7 MCH 29.8 MCHC 34.8 RDW 13.7 Plt Count 271 MPV 8.8 L Immature Gran % (Auto) 0.5 H Neut % (Auto) 71.9 Lymph % (Auto) 14.5 L [place] % (Auto) 11.9 H Eos % (Auto) 0.7 Baso % (Auto) 0.5 Lymph # (Auto) 1.6 [place] # (Auto) 1.3 H Eos # (Auto) 0.1 Baso # (Auto) 0.1 Abs Immat Gran (auto) 0.05 H Absolute Neuts (auto) 7.9 Absolute Nucleated RBC 0.000 Nucleated RBC % (auto) 0.0 Sodium 133 L Potassium 4.7 Chloride 102 Carbon Dioxide 24 Anion Gap 12 BUN 39 H Creatinine 1.24 Estim Creat Clear Calc 27.3 Estimated GFR 42 POC Glucose 156 H Random Glucose 180 H Calcium 8.9 Total Bilirubin 0.4 AST 15 ALT 21 Alkaline Phosphatase 67 Total Protein 6.4 L Albumin 4.1 Medications Medications Current Medications Acetaminophen (Acetaminophen 325 Mg Tablet) 650 mg PO Q6H PRN PRN Reason: Headache/Pain, Scale 1-10 Last Admin: 10/26/24 18:34 Dose: 650 mg Al Hydroxide/Mg Hydroxide (Magnesium Hydrox/Alum Hydrox 30 Ml Oral.Susp) 30 ml PO Q6H PRN PRN Reason: Heartburn/Nausea Last Admin: 10/29/24 14:05 Dose: 30 ml Albuterol Sulfate (Albuterol Sulfate 90 Mcg 8 Gm Inhaler) 2 puff INHALE Q4H PRN PRN Reason: Shortness Of Breath Or Wheezin Amlodipine Besylate (Amlodipine Besylate 2.5 Mg Tablet) 2.5 mg PO DAILY [facility]; Protocol Last Admin: 10/29/24 08:10 Dose: 2.5 mg Atorvastatin Calcium (Atorvastatin Calcium 20 Mg Tablet) 20 mg PO DAILY [facility] Last Admin: 10/29/24 08:12 Dose: 20 mg Clonazepam (Clonazepam 0.5 Mg Tablet) 0.5 mg PO BID [facility] Dicyclomine HCl (Dicyclomine Hcl 10 Mg Capsule) 10 mg PO Q4H PRN PRN Reason: abdominal cramping Last Admin: 10/29/24 12:54 Dose: 10 mg Duloxetine HCl (Duloxetine Hcl 60 Mg Capsule.Dr) 60 mg PO DAILY [facility] Fluticasone/Vilanterol (Fluticasone/Vilanterol 100/25 Blst.W.Dev) 1 puff INHALE RDAILY [facility] Last Admin: 10/29/24 08:17 Dose: 1 puff Gabapentin (Gabapentin 100 Mg Capsule) 100 mg PO TID [facility] Last Admin: 10/29/24 14:05 Dose: 100 mg Glipizide (Glipizide Xl 2.5 Mg Tab.Er.24) 2.5 mg PO DAILY [facility] Last Admin: 10/29/24 08:10 Dose: 2.5 mg Insulin Human Lispro (Insulin Lispro 100 Unit/Ml 3 Ml Vial) 0 unit SUBCUT TIDAC [facility]; Protocol Last Admin: 10/29/24 11:28 Dose: 6 unit Lamotrigine (Lamotrigine 25 Mg Tablet) 50 mg PO BEDTIME [facility] Lisinopril (Lisinopril 20 Mg Tablet) 20 mg PO DAILY [facility]; Protocol Last Admin: 10/29/24 08:12 Dose: 20 mg Lorazepam (Lorazepam 0.5 Mg Tablet) 0.5 mg PO BID [facility] Stop: 10/29/24 23:59 Last Admin: 10/29/24 08:11 Dose: 0.5 mg Magnesium Hydroxide (Milk Of Magnesia 30 Ml Oral.Susp) 30 ml PO DAILY PRN PRN Reason: Constipation Last Admin: 10/24/24 08:36 Dose: 30 ml Metoclopramide HCl (Metoclopramide Hcl 10 Mg Tablet) 10 mg PO Q6H PRN PRN Reason: Nausea Last Admin: 10/29/24 14:43 Dose: 10 mg Mirtazapine (Mirtazapine 30 Mg Tablet) 30 mg PO BEDTIME [facility] Last Admin: 10/28/24 20:01 Dose: 30 mg Omeprazole (Omeprazole 20 Mg Capsule.Dr) 20 mg PO BID@0630,1630 [facility] Last Admin: 10/29/24 06:08 Dose: 20 mg Propranolol HCl (Propranolol Hcl 10 Mg Tablet) 10 mg PO BID [facility]; Protocol Last Admin: 10/29/24 08:10 Dose: 10 mg Simethicone (Simethicone 80 Mg Tab.Chew) 80 mg PO QIDWMHS [facility] Last Admin: 10/29/24 15:15 Dose: Not Given Sitagliptin Phosphate (Sitagliptin Phosphate 25 Mg Tablet) 25 mg PO DAILY [facility] Last Admin: 10/29/24 08:12 Dose: 25 mg Trazodone HCl (Trazodone Hcl 50 Mg Tablet) 50 mg PO BEDTIME MRX1 PRN PRN Reason: Insomnia Last Admin: 10/28/24 20:01 Dose: 50 mg Allergies Allergies Allergy/AdvReac Type Severity Reaction Status Date / Time ampicillin Allergy Rash Verified 10/20/24 19:28 morphine Allergy Rash Verified 10/20/24 19:28 Penicillins Allergy Rash Verified 10/20/24 19:28 Assessment & Plan Assessment & Plan (1) Gastroparesis: Status: Acute Code(s): K31.84 - Gastroparesis (2) Anxiety: Status: Acute Code(s): F41.9 - Anxiety disorder, unspecified (3) MDD (major depressive disorder), recurrent episode, moderate: Status: Acute Code(s): F33.1 - Major depressive disorder, recurrent, moderate (4) RLS (restless legs syndrome): Status: Acute Code(s): G25.81 - Restless legs syndrome Plan 10/25/2024: Change Ativan and propranolol to twice daily with hold parameters in place for sedation and blood pressure respectively 10/26: Lower gabapentin from 200 mg 3 times per day to 100 mg 3 times per day 10/27: bentyl and reglan for abdo discomfort and nausea. 10/28 d/c reglan as it may exacerbate Akathisia/RLS. increase cymbalta to 60mg po daily. continue remeron. 7/8 switch ativan to clonazepam, continue gabapentin at current dose, increase in restlessness and anxiety. restart lamictal 50mg po qhs- although therapeutic benefit of medication is unclear. avoid polypharmacy as pt may tend to ask for several interventions. Reason for continued inpatient stay Substantial Risk for: inability to function Time Spent With Patient Time: Total time managing care of this patient today ____ minutes.
[2024-10-29 20:20] VITALS: BP 111/58; PULSE 90; RESP 14; TEMP 36.6; O2SAT 99
[2024-10-30 06:50] LABS: Glucose, Whole Blood 195 mg/dL (60-115)
[2024-10-30 08:00] VITALS: BP 126/71; PULSE 96; RESP 16; TEMP 36.8; O2SAT 97
[2024-10-30] MEDS: Fluticasone/Vilanterol 100/25 BLST.W.DEV 1 PUFF INHALE (08:47)
[2024-10-30 11:17] LABS: Glucose, Whole Blood 194 mg/dL (60-115)
[2024-10-30 16:13] LABS: Glucose, Whole Blood 143 mg/dL (60-115)
--- NOTE | 2024-10-30 16:20 | HO.PSYCHPN ---
Subjective Subjective Date of Service: 10/30/24 Reason For Visit: SI with plan to OD on medications, increased anxie Subjective Notes: Conditional Voluntary Interim History: Pt slept through the night. She presents as dysphoric, more anxious and somatically preoccupied. She reports not feeling well, feeling weak. No SI/HI. We had family meeting, son reports she is not able to return back home as he can't care for her any longer. Review of Systems Review of Systems abdo discomfort/cramping and nausea- reports similar to gastroparesis symptoms in past Yes all other systems are reviewed and are negative Mental Status Exam Mental Status Exam Narrative: Appearance: wearing hospital gown, fair hygiene, movement of lower extremities noted. Behavior: cooperative Psychomotor: constant movement of lower extremities Speech: clear, normal rate/rhythm/volume, spontaneous TP: linear TC: distressed by nausea Mood: ok Affect: congruent SI: denies HI: none VH/AH: none Delusions: none Memory/cog: alert, oriented x 1. MOCA on 10/24/202402/20, ACL 4.4 Diagnostics Vital Signs (24Hr): Vital Signs - 24 hr 10/29/24 20:20 10/30/24 08:00 Temperature 97.9 F 98.2 F Pulse Rate 90 96 Respiratory Rate 14 16 Blood Pressure 111/58 L 126/71 Pulse Oximetry 99 97 Oxygen Delivery Method Room Air Room Air BMI result Body Mass Index 23.4 Labs 10/30/24 17:25 10/30/24 17:25 Labs: Laboratory Results - last 48 hr 10/28/24 10/29/24 10/29/24 20:28 06:47 11:16 WBC RBC Hgb Hct MCV MCH MCHC RDW Plt Count MPV Immature Gran % (Auto) Neut % (Auto) Lymph % (Auto) [place] % (Auto) Eos % (Auto) Baso % (Auto) Lymph # (Auto) [place] # (Auto) Eos # (Auto) Baso # (Auto) Abs Immat Gran (auto) Absolute Neuts (auto) Absolute Nucleated RBC Nucleated RBC % (auto) Sodium Potassium Chloride Carbon Dioxide Anion Gap BUN Creatinine Estim Creat Clear Calc Estimated GFR POC Glucose 210 H 188 H 265 H Random Glucose Calcium Total Bilirubin AST ALT Alkaline Phosphatase Total Protein Albumin 10/29/24 10/29/24 10/30/24 15:42 16:24 06:46 WBC 11.0 H RBC 3.49 L Hgb 10.4 L Hct 29.9 L MCV 85.7 MCH 29.8 MCHC 34.8 RDW 13.7 Plt Count 271 MPV 8.8 L Immature Gran % (Auto) 0.5 H Neut % (Auto) 71.9 Lymph % (Auto) 14.5 L [place] % (Auto) 11.9 H Eos % (Auto) 0.7 Baso % (Auto) 0.5 Lymph # (Auto) 1.6 [place] # (Auto) 1.3 H Eos # (Auto) 0.1 Baso # (Auto) 0.1 Abs Immat Gran (auto) 0.05 H Absolute Neuts (auto) 7.9 Absolute Nucleated RBC 0.000 Nucleated RBC % (auto) 0.0 Sodium 133 L Potassium 4.7 Chloride 102 Carbon Dioxide 24 Anion Gap 12 BUN 39 H Creatinine 1.24 Estim Creat Clear Calc 27.3 Estimated GFR 42 POC Glucose 156 H 195 H Random Glucose 180 H Calcium 8.9 Total Bilirubin 0.4 AST 15 ALT 21 Alkaline Phosphatase 67 Total Protein 6.4 L Albumin 4.1 10/30/24 10/30/24 11:13 16:09 WBC RBC Hgb Hct MCV MCH MCHC RDW Plt Count MPV Immature Gran % (Auto) Neut % (Auto) Lymph % (Auto) [place] % (Auto) Eos % (Auto) Baso % (Auto) Lymph # (Auto) [place] # (Auto) Eos # (Auto) Baso # (Auto) Abs Immat Gran (auto) Absolute Neuts (auto) Absolute Nucleated RBC Nucleated RBC % (auto) Sodium Potassium Chloride Carbon Dioxide Anion Gap BUN Creatinine Estim Creat Clear Calc Estimated GFR POC Glucose 194 H 143 H Random Glucose Calcium Total Bilirubin AST ALT Alkaline Phosphatase Total Protein Albumin Medications Medications Current Medications Acetaminophen (Acetaminophen 325 Mg Tablet) 650 mg PO Q6H PRN PRN Reason: Headache/Pain, Scale 1-10 Last Admin: 10/26/24 18:34 Dose: 650 mg Al Hydroxide/Mg Hydroxide (Magnesium Hydrox/Alum Hydrox 30 Ml Oral.Susp) 30 ml PO Q6H PRN PRN Reason: Heartburn/Nausea Last Admin: 10/29/24 14:05 Dose: 30 ml Albuterol Sulfate (Albuterol Sulfate 90 Mcg 8 Gm Inhaler) 2 puff INHALE Q4H PRN PRN Reason: Shortness Of Breath Or Wheezin Amlodipine Besylate (Amlodipine Besylate 2.5 Mg Tablet) 2.5 mg PO DAILY [facility]; Protocol Last Admin: 10/30/24 08:01 Dose: 2.5 mg Atorvastatin Calcium (Atorvastatin Calcium 20 Mg Tablet) 20 mg PO DAILY [facility] Last Admin: 10/30/24 08:02 Dose: 20 mg Clonazepam (Clonazepam 0.5 Mg Tablet) 0.5 mg PO BID [facility] Last Admin: 10/30/24 08:01 Dose: 0.5 mg Dicyclomine HCl (Dicyclomine Hcl 10 Mg Capsule) 10 mg PO Q4H PRN PRN Reason: abdominal cramping Last Admin: 10/29/24 12:54 Dose: 10 mg Duloxetine HCl (Duloxetine Hcl 60 Mg Capsule.Dr) 60 mg PO DAILY [facility] Last Admin: 10/30/24 08:02 Dose: 60 mg Fluticasone/Vilanterol (Fluticasone/Vilanterol 100/25 Blst.W.Dev) 1 puff INHALE RDAILY [facility] Last Admin: 10/30/24 08:47 Dose: 1 puff Gabapentin (Gabapentin 100 Mg Capsule) 100 mg PO TID [facility] Last Admin: 10/30/24 15:33 Dose: 100 mg Glipizide (Glipizide Xl 2.5 Mg Tab.Er.24) 2.5 mg PO DAILY [facility] Last Admin: 10/30/24 08:00 Dose: 2.5 mg Insulin Human Lispro (Insulin Lispro 100 Unit/Ml 3 Ml Vial) 0 unit SUBCUT TIDAC [facility]; Protocol Last Admin: 10/30/24 16:14 Dose: Not Given Lamotrigine (Lamotrigine 25 Mg Tablet) 50 mg PO BEDTIME [facility] Last Admin: 10/29/24 20:28 Dose: 50 mg Lisinopril (Lisinopril 20 Mg Tablet) 20 mg PO DAILY [facility]; Protocol Last Admin: 10/30/24 08:02 Dose: 20 mg Magnesium Hydroxide (Milk Of Magnesia 30 Ml Oral.Susp) 30 ml PO DAILY PRN PRN Reason: Constipation Last Admin: 10/24/24 08:36 Dose: 30 ml Mirtazapine (Mirtazapine 30 Mg Tablet) 30 mg PO BEDTIME [facility] Last Admin: 10/29/24 20:28 Dose: 30 mg Omeprazole (Omeprazole 20 Mg Capsule.Dr) 20 mg PO BID@0630,1630 [facility] Last Admin: 10/30/24 06:18 Dose: 20 mg Propranolol HCl (Propranolol Hcl 10 Mg Tablet) 10 mg PO BID [facility]; Protocol Last Admin: 10/30/24 09:23 Dose: 10 mg Simethicone (Simethicone 80 Mg Tab.Chew) 80 mg PO QIDWMHS [facility] Last Admin: 10/30/24 12:02 Dose: 80 mg Sitagliptin Phosphate (Sitagliptin Phosphate 25 Mg Tablet) 25 mg PO DAILY [facility] Last Admin: 10/30/24 08:01 Dose: 25 mg Trazodone HCl (Trazodone Hcl 50 Mg Tablet) 50 mg PO BEDTIME MRX1 PRN PRN Reason: Insomnia Last Admin: 10/29/24 20:28 Dose: 50 mg Allergies Allergies Allergy/AdvReac Type Severity Reaction Status Date / Time ampicillin Allergy Rash Verified 10/20/24 19:28 morphine Allergy Rash Verified 10/20/24 19:28 Penicillins Allergy Rash Verified 10/20/24 19:28 Assessment & Plan Assessment & Plan (1) MDD (major depressive disorder), recurrent episode, moderate: Status: Acute Code(s): F33.1 - Major depressive disorder, recurrent, moderate (2) Gastroparesis: Status: Acute Code(s): K31.84 - Gastroparesis (3) Anxiety: Status: Acute Code(s): F41.9 - Anxiety disorder, unspecified (4) RLS (restless legs syndrome): Status: Acute Code(s): G25.81 - Restless legs syndrome Plan 10/25/2024: Change Ativan and propranolol to twice daily with hold parameters in place for sedation and blood pressure respectively 10/26: Lower gabapentin from 200 mg 3 times per day to 100 mg 3 times per day 10/27: bentyl and reglan for abdo discomfort and nausea. 10/28 d/c reglan as it may exacerbate Akathisia/RLS. increase cymbalta to 60mg po daily. continue remeron. 10/29 switch ativan to clonazepam, continue gabapentin at current dose, increase in restlessness and anxiety. restart lamictal 50mg po qhs- although therapeutic benefit of medication is unclear. avoid polypharmacy as pt may tend to ask for several interventions. 10/30 continue tx. Reason for continued inpatient stay Substantial Risk for: inability to function Time Spent With Patient Time: Total time managing care of this patient today ____ minutes.
[2024-10-30 17:29] LABS: MANUAL DIFF FLAG NO
[2024-10-30 17:33] LABS: Hematocrit 31.4 % (37.0-47.0); Hemoglobin 10.7 g/dl (12.0-16.0); Imm Gran Abs Auto 0.06 X10*3/uL (0.00-0.03); Imm Gran Pct Auto 0.5 % (0.0-0.4); Lymphocytes Absolute Auto 1.5 X10*3/uL (1.2-4.9); Mean Corpuscular HGB Conc 34.1 g/dl (31.0-35.0); Mean Corpuscular Hemoglobin 29.5 pg (27.0-33.0); Mean Corpuscular Volume 86.5 fL (80.0-98.0); NRBC Abs Auto 0.000 X10*3/uL (0.0-0.012); NRBC Pct Auto 0.0 /100WBC (0.0-0.2); Platelet Count 288 X10*3/uL (160-400); Red Blood Count 3.63 X10*6/uL (4.20-5.50); White Blood Count 11.2 X10*3/uL (4.8-10.8)
[2024-10-30 17:55] LABS: Alanine Aminotransferase 23 U/L (0-31); Albumin Level 4.3 g/dL (3.5-5.0); Alkaline Phosphatase 64 U/L (39-117); Anion Gap 14 (12-20); Aspartate Amino Transferase 15 U/L (5-31); Blood Urea Nitrogen 34 mg/dL (9-16); Calcium 9.2 mg/dL (8.4-10.2); Carbon Dioxide 26 mmol/L (22-29); Chloride 101 mmol/L (96-108); Creatinine Clr Calc Pharmacy 28.9; Estimated Glomerular Filt Rate 45; Potassium 5.1 mmol/L (3.3-5.1); Sodium 136 mmol/L (135-145); Total Protein 6.8 g/dL (6.5-8.0)
[2024-10-30 19:59] LABS: Glucose, Whole Blood 244 mg/dL (60-115)
[2024-10-30 20:00] VITALS: BP 106/55; PULSE 80; RESP 16; TEMP 36.8; O2SAT 98
[2024-10-30 21:11] VITALS: BP 106/55; PULSE 85
[2024-10-31 06:38] LABS: Glucose, Whole Blood 173 mg/dL (60-115)
[2024-10-31 08:00] VITALS: BP 119/68; PULSE 86; RESP 14; TEMP 37; O2SAT 96
[2024-10-31 11:14] VITALS: BMI 22.9
[2024-10-31 11:30] LABS: Glucose, Whole Blood 178 mg/dL (60-115)
[2024-10-31 16:37] LABS: Glucose, Whole Blood 169 mg/dL (60-115)
[2024-10-31 20:00] VITALS: BP 114/67; PULSE 83; RESP 16; TEMP 36.4; O2SAT 98
[2024-10-31 20:44] VITALS: BP 114/67; PULSE 83
--- NOTE | 2024-10-31 20:58 | P.PNPSI_ITS ---
Subjective Subjective Date of Service: 10/31/24 Reason For Visit: SI with plan to OD on medications, increased anxie Subjective Notes: Conditional Voluntary Interim History: Pt slept through the night. She continues to present as dysphoric, more anxious and somatically preoccupied. She reports feeling depressed. She reports not feeling well, feeling weak. No SI/HI. We had family meeting, son reports she is not able to return back home as he can't care for her any longer. Review of Systems Review of Systems abdo discomfort/cramping and nausea- reports similar to gastroparesis symptoms in past Yes all other systems are reviewed and are negative Mental Status Exam Mental Status Exam Narrative: Appearance: wearing hospital gown, fair hygiene, movement of lower extremities noted. Behavior: cooperative Psychomotor: constant movement of lower extremities Speech: clear, normal rate/rhythm/volume, spontaneous TP: linear TC: distressed by nausea Mood: ok Affect: congruent SI: denies HI: none VH/AH: none Delusions: none Memory/cog: alert, oriented x 1. MOCA on 10/24/202402/20, ACL 4.4 Diagnostics Vital Signs (24Hr): Vital Signs - 24 hr 10/30/24 21:11 10/31/24 08:00 10/31/24 20:44 Temperature 98.6 F Pulse Rate 85 86 83 Respiratory Rate 14 Blood Pressure 106/55 L 119/68 114/67 Pulse Oximetry 96 BMI result Body Mass Index 22.9 Labs 10/30/24 17:25 10/30/24 17:25 Labs: Laboratory Results - last 48 hr 10/30/24 10/30/24 10/30/24 06:46 11:13 16:09 WBC RBC Hgb Hct MCV MCH MCHC RDW Plt Count MPV Immature Gran % (Auto) Neut % (Auto) Lymph % (Auto) [place] % (Auto) Eos % (Auto) Baso % (Auto) Lymph # (Auto) [place] # (Auto) Eos # (Auto) Baso # (Auto) Abs Immat Gran (auto) Absolute Neuts (auto) Absolute Nucleated RBC Nucleated RBC % (auto) Sodium Potassium Chloride Carbon Dioxide Anion Gap BUN Creatinine Estim Creat Clear Calc Estimated GFR POC Glucose 195 H 194 H 143 H Random Glucose Calcium Total Bilirubin AST ALT Alkaline Phosphatase Total Protein Albumin 10/30/24 10/30/24 10/31/24 17:25 19:55 06:33 WBC 11.2 H RBC 3.63 L Hgb 10.7 L Hct 31.4 L MCV 86.5 MCH 29.5 MCHC 34.1 RDW 13.5 Plt Count 288 MPV 8.9 L Immature Gran % (Auto) 0.5 H Neut % (Auto) 74.7 H Lymph % (Auto) 13.2 L [place] % (Auto) 10.5 Eos % (Auto) 0.7 Baso % (Auto) 0.4 Lymph # (Auto) 1.5 [place] # (Auto) 1.2 Eos # (Auto) 0.1 Baso # (Auto) 0.0 Abs Immat Gran (auto) 0.06 H Absolute Neuts (auto) 8.4 H Absolute Nucleated RBC 0.000 Nucleated RBC % (auto) 0.0 Sodium 136 Potassium 5.1 Chloride 101 Carbon Dioxide 26 Anion Gap 14 BUN 34 H Creatinine 1.17 Estim Creat Clear Calc 28.9 Estimated GFR 45 POC Glucose 244 H 173 H Random Glucose 225 H Calcium 9.2 Total Bilirubin 0.5 AST 15 ALT 23 Alkaline Phosphatase 64 Total Protein 6.8 Albumin 4.3 10/31/24 10/31/24 11:26 16:31 WBC RBC Hgb Hct MCV MCH MCHC RDW Plt Count MPV Immature Gran % (Auto) Neut % (Auto) Lymph % (Auto) [place] % (Auto) Eos % (Auto) Baso % (Auto) Lymph # (Auto) [place] # (Auto) Eos # (Auto) Baso # (Auto) Abs Immat Gran (auto) Absolute Neuts (auto) Absolute Nucleated RBC Nucleated RBC % (auto) Sodium Potassium Chloride Carbon Dioxide Anion Gap BUN Creatinine Estim Creat Clear Calc Estimated GFR POC Glucose 178 H 169 H Random Glucose Calcium Total Bilirubin AST ALT Alkaline Phosphatase Total Protein Albumin Medications Medications Current Medications Acetaminophen (Acetaminophen 325 Mg Tablet) 650 mg PO Q6H PRN PRN Reason: Headache/Pain, Scale 1-10 Last Admin: 10/26/24 18:34 Dose: 650 mg Al Hydroxide/Mg Hydroxide (Magnesium Hydrox/Alum Hydrox 30 Ml Oral.Susp) 30 ml PO Q6H PRN PRN Reason: Heartburn/Nausea Last Admin: 10/29/24 14:05 Dose: 30 ml Albuterol Sulfate (Albuterol Sulfate 90 Mcg 8 Gm Inhaler) 2 puff INHALE Q4H PRN PRN Reason: Shortness Of Breath Or Wheezin Amlodipine Besylate (Amlodipine Besylate 2.5 Mg Tablet) 2.5 mg PO DAILY [facility]; Protocol Last Admin: 10/31/24 08:44 Dose: 2.5 mg Atorvastatin Calcium (Atorvastatin Calcium 20 Mg Tablet) 20 mg PO DAILY [facility] Last Admin: 10/31/24 08:44 Dose: 20 mg Clonazepam (Clonazepam 0.5 Mg Tablet) 0.5 mg PO BID [facility] Last Admin: 10/31/24 20:44 Dose: 0.5 mg Dicyclomine HCl (Dicyclomine Hcl 10 Mg Capsule) 10 mg PO Q4H PRN PRN Reason: abdominal cramping Last Admin: 10/31/24 15:46 Dose: 10 mg Duloxetine HCl (Duloxetine Hcl 60 Mg Capsule.Dr) 60 mg PO DAILY [facility] Last Admin: 10/31/24 08:44 Dose: 60 mg Fluticasone/Vilanterol (Fluticasone/Vilanterol 100/25 Blst.W.Dev) 1 puff INHALE RDAILY [facility] Last Admin: 10/31/24 09:52 Dose: Not Given Gabapentin (Gabapentin 100 Mg Capsule) 100 mg PO TID [facility] Last Admin: 10/31/24 20:44 Dose: 100 mg Glipizide (Glipizide Xl 2.5 Mg Tab.Er.24) 2.5 mg PO DAILY [facility] Last Admin: 10/31/24 08:43 Dose: 2.5 mg Insulin Human Lispro (Insulin Lispro 100 Unit/Ml 3 Ml Vial) 0 unit SUBCUT TIDAC [facility]; Protocol Last Admin: 10/31/24 16:54 Dose: Not Given Lamotrigine (Lamotrigine 25 Mg Tablet) 50 mg PO BEDTIME [facility] Last Admin: 10/31/24 20:43 Dose: 50 mg Lisinopril (Lisinopril 20 Mg Tablet) 20 mg PO DAILY [facility]; Protocol On Hold: 10/30/24 16:25 Comment: renal function Last Admin: 10/30/24 08:02 Dose: 20 mg Magnesium Hydroxide (Milk Of Magnesia 30 Ml Oral.Susp) 30 ml PO DAILY PRN PRN Reason: Constipation Last Admin: 10/24/24 08:36 Dose: 30 ml Mirtazapine (Mirtazapine 30 Mg Tablet) 30 mg PO BEDTIME [facility] Last Admin: 10/31/24 20:44 Dose: 30 mg Omeprazole (Omeprazole 20 Mg Capsule.Dr) 20 mg PO BID@0630,1630 [facility] Last Admin: 10/31/24 15:46 Dose: 20 mg Ondansetron HCl (Ondansetron Odt 4 Mg Tab.Rapdis) 4 mg TRANSLINGU Q4H PRN PRN Reason: Nausea and Vomiting Last Admin: 10/31/24 15:22 Dose: 4 mg Propranolol HCl (Propranolol Hcl 10 Mg Tablet) 10 mg PO BID [facility]; Protocol Last Admin: 10/31/24 20:44 Dose: 10 mg Simethicone (Simethicone 80 Mg Tab.Chew) 80 mg PO QIDWMHS [facility] Last Admin: 10/31/24 20:44 Dose: 80 mg Sitagliptin Phosphate (Sitagliptin Phosphate 25 Mg Tablet) 25 mg PO DAILY [facility] Last Admin: 10/31/24 08:43 Dose: 25 mg Trazodone HCl (Trazodone Hcl 50 Mg Tablet) 50 mg PO BEDTIME MRX1 PRN PRN Reason: Insomnia Last Admin: 10/29/24 20:28 Dose: 50 mg Allergies Allergies Allergy/AdvReac Type Severity Reaction Status Date / Time ampicillin Allergy Rash Verified 10/20/24 19:28 morphine Allergy Rash Verified 10/20/24 19:28 Penicillins Allergy Rash Verified 10/20/24 19:28 Assessment & Plan Assessment & Plan (1) MDD (major depressive disorder), recurrent episode, moderate: Status: Acute Code(s): F33.1 - Major depressive disorder, recurrent, moderate (2) Gastroparesis: Status: Acute Code(s): K31.84 - Gastroparesis (3) Anxiety: Status: Acute Code(s): F41.9 - Anxiety disorder, unspecified (4) RLS (restless legs syndrome): Status: Acute Code(s): G25.81 - Restless legs syndrome Plan 10/25/2024: Change Ativan and propranolol to twice daily with hold parameters in place for sedation and blood pressure respectively 10/26: Lower gabapentin from 200 mg 3 times per day to 100 mg 3 times per day 10/27: bentyl and reglan for abdo discomfort and nausea. 10/28 d/c reglan as it may exacerbate Akathisia/RLS. increase cymbalta to 60mg po daily. continue remeron. 10/29 switch ativan to clonazepam, continue gabapentin at current dose, increase in restlessness and anxiety. restart lamictal 50mg po qhs- although therapeutic benefit of medication is unclear. avoid polypharmacy as pt may tend to ask for several interventions. 10/30 continue tx. 10/31 continue tx. Reason for continued inpatient stay Substantial Risk for: inability to function Time Spent With Patient Time: Total time managing care of this patient today ____ minutes.
[2024-11-01 06:55] LABS: Glucose, Whole Blood 199 mg/dL (60-115)
[2024-11-01 09:56] VITALS: BP 138/92; PULSE 97; RESP 16; TEMP 36.2; O2SAT 97
[2024-11-01] MEDS: Fluticasone/Vilanterol 100/25 BLST.W.DEV 1 PUFF INHALE (09:58)
--- NOTE | 2024-11-01 10:16 | PC.NURSE ---
This mortgage loan underwriter reported BP to medical provider. She requested a recheck. School Janitor to recheck BP.
[2024-11-01 11:15] LABS: Glucose, Whole Blood 257 mg/dL (60-115)
[2024-11-01 16:28] LABS: Glucose, Whole Blood 124 mg/dL (60-115)
--- NOTE | 2024-11-01 17:03 | P.PNPSI_ITS ---
Subjective Subjective Date of Service: 11/01/24 Reason For Visit: SI with plan to OD on medications, increased anxie Subjective Notes: Conditional Voluntary and 3 Day Interim History: Pt slept through the night. She reports she feels anxious, low frustration tolerance. She reports she wants something for anxiety but also something to wake her up. explained medications for anxiety have some degree of sedation. She reports she wants a medication that keep her up. She presents as dysphoric, may benefit from different mood stabilizer other than lamictal. hesitant to start antipsychotic making sure it does not exacerbate rls or akathisia. Review of Systems Review of Systems abdo discomfort/cramping and nausea- reports similar to gastroparesis symptoms in past Yes all other systems are reviewed and are negative Mental Status Exam Mental Status Exam Narrative: Appearance: wearing hospital gown, fair hygiene, movement of lower extremities noted. Behavior: cooperative Psychomotor: constant movement of lower extremities Speech: clear, normal rate/rhythm/volume, spontaneous TP: linear TC: distressed by nausea Mood: ok Affect: congruent SI: denies HI: none VH/AH: none Delusions: none Memory/cog: alert, oriented x 1. MOCA on 10/24/202402/20, ACL 4.4 Diagnostics Vital Signs (24Hr): Vital Signs - 24 hr 10/31/24 20:00 10/31/24 20:44 11/01/24 09:56 Temperature 97.5 F 97.2 F Pulse Rate 83 83 97 Respiratory Rate 16 16 Blood Pressure 114/67 114/67 138/92 H Pulse Oximetry 98 97 Oxygen Delivery Method Room Air Room Air BMI result Body Mass Index 22.9 Labs 10/30/24 17:25 10/30/24 17:25 Labs: Laboratory Results - last 48 hr 10/30/24 10/30/24 10/31/24 17:25 19:55 06:33 WBC 11.2 H RBC 3.63 L Hgb 10.7 L Hct 31.4 L MCV 86.5 MCH 29.5 MCHC 34.1 RDW 13.5 Plt Count 288 MPV 8.9 L Immature Gran % (Auto) 0.5 H Neut % (Auto) 74.7 H Lymph % (Auto) 13.2 L [place] % (Auto) 10.5 Eos % (Auto) 0.7 Baso % (Auto) 0.4 Lymph # (Auto) 1.5 [place] # (Auto) 1.2 Eos # (Auto) 0.1 Baso # (Auto) 0.0 Abs Immat Gran (auto) 0.06 H Absolute Neuts (auto) 8.4 H Absolute Nucleated RBC 0.000 Nucleated RBC % (auto) 0.0 Sodium 136 Potassium 5.1 Chloride 101 Carbon Dioxide 26 Anion Gap 14 BUN 34 H Creatinine 1.17 Estim Creat Clear Calc 28.9 Estimated GFR 45 POC Glucose 244 H 173 H Random Glucose 225 H Calcium 9.2 Total Bilirubin 0.5 AST 15 ALT 23 Alkaline Phosphatase 64 Total Protein 6.8 Albumin 4.3 10/31/24 10/31/24 11/01/24 11:26 16:31 06:33 WBC RBC Hgb Hct MCV MCH MCHC RDW Plt Count MPV Immature Gran % (Auto) Neut % (Auto) Lymph % (Auto) [place] % (Auto) Eos % (Auto) Baso % (Auto) Lymph # (Auto) [place] # (Auto) Eos # (Auto) Baso # (Auto) Abs Immat Gran (auto) Absolute Neuts (auto) Absolute Nucleated RBC Nucleated RBC % (auto) Sodium Potassium Chloride Carbon Dioxide Anion Gap BUN Creatinine Estim Creat Clear Calc Estimated GFR POC Glucose 178 H 169 H 199 H Random Glucose Calcium Total Bilirubin AST ALT Alkaline Phosphatase Total Protein Albumin 11/01/24 11/01/24 11:05 16:24 WBC RBC Hgb Hct MCV MCH MCHC RDW Plt Count MPV Immature Gran % (Auto) Neut % (Auto) Lymph % (Auto) [place] % (Auto) Eos % (Auto) Baso % (Auto) Lymph # (Auto) [place] # (Auto) Eos # (Auto) Baso # (Auto) Abs Immat Gran (auto) Absolute Neuts (auto) Absolute Nucleated RBC Nucleated RBC % (auto) Sodium Potassium Chloride Carbon Dioxide Anion Gap BUN Creatinine Estim Creat Clear Calc Estimated GFR POC Glucose 257 H 124 H Random Glucose Calcium Total Bilirubin AST ALT Alkaline Phosphatase Total Protein Albumin Medications Medications Current Medications Acetaminophen (Acetaminophen 325 Mg Tablet) 650 mg PO Q6H PRN PRN Reason: Headache/Pain, Scale 1-10 Last Admin: 10/26/24 18:34 Dose: 650 mg Al Hydroxide/Mg Hydroxide (Magnesium Hydrox/Alum Hydrox 30 Ml Oral.Susp) 30 ml PO Q6H PRN PRN Reason: Heartburn/Nausea Last Admin: 10/29/24 14:05 Dose: 30 ml Albuterol Sulfate (Albuterol Sulfate 90 Mcg 8 Gm Inhaler) 2 puff INHALE Q4H PRN PRN Reason: Shortness Of Breath Or Wheezin Amlodipine Besylate (Amlodipine Besylate 2.5 Mg Tablet) 2.5 mg PO DAILY [facility]; Protocol Last Admin: 11/01/24 09:58 Dose: 2.5 mg Atorvastatin Calcium (Atorvastatin Calcium 20 Mg Tablet) 20 mg PO DAILY [facility] Last Admin: 11/01/24 09:58 Dose: 20 mg Clonazepam (Clonazepam 0.5 Mg Tablet) 0.5 mg PO BID [facility] Last Admin: 11/01/24 09:59 Dose: 0.5 mg Dicyclomine HCl (Dicyclomine Hcl 10 Mg Capsule) 10 mg PO Q4H PRN PRN Reason: abdominal cramping Last Admin: 11/01/24 16:29 Dose: 10 mg Duloxetine HCl (Duloxetine Hcl 60 Mg Capsule.Dr) 60 mg PO DAILY [facility] Last Admin: 11/01/24 09:58 Dose: 60 mg Fluticasone/Vilanterol (Fluticasone/Vilanterol 100/25 Blst.W.Dev) 1 puff INHALE RDAILY [facility] Last Admin: 11/01/24 09:58 Dose: 1 puff Gabapentin (Gabapentin 100 Mg Capsule) 100 mg PO TID [facility] Last Admin: 11/01/24 15:50 Dose: 100 mg Glipizide (Glipizide Xl 2.5 Mg Tab.Er.24) 2.5 mg PO DAILY [facility] Last Admin: 11/01/24 09:58 Dose: 2.5 mg Insulin Human Lispro (Insulin Lispro 100 Unit/Ml 3 Ml Vial) 0 unit SUBCUT TIDAC [facility]; Protocol Last Admin: 11/01/24 11:41 Dose: 6 unit Lamotrigine (Lamotrigine 25 Mg Tablet) 50 mg PO BEDTIME [facility] Last Admin: 10/31/24 20:43 Dose: 50 mg Lisinopril (Lisinopril 20 Mg Tablet) 20 mg PO DAILY [facility]; Protocol On Hold: 10/30/24 16:25 Comment: renal function Last Admin: 10/30/24 08:02 Dose: 20 mg Magnesium Hydroxide (Milk Of Magnesia 30 Ml Oral.Susp) 30 ml PO DAILY PRN PRN Reason: Constipation Last Admin: 10/24/24 08:36 Dose: 30 ml Mirtazapine (Mirtazapine 30 Mg Tablet) 30 mg PO BEDTIME [facility] Last Admin: 10/31/24 20:44 Dose: 30 mg Omeprazole (Omeprazole 20 Mg Capsule.Dr) 20 mg PO BID@0630,1630 [facility] Last Admin: 11/01/24 16:29 Dose: 20 mg Ondansetron HCl (Ondansetron Odt 4 Mg Tab.Rapdis) 4 mg TRANSLINGU Q4H PRN PRN Reason: Nausea and Vomiting Last Admin: 10/31/24 15:22 Dose: 4 mg Propranolol HCl (Propranolol Hcl 10 Mg Tablet) 10 mg PO BID [facility]; Protocol Last Admin: 11/01/24 09:59 Dose: 10 mg Simethicone (Simethicone 80 Mg Tab.Chew) 80 mg PO QIDWMHS [facility] Last Admin: 11/01/24 16:29 Dose: 80 mg Sitagliptin Phosphate (Sitagliptin Phosphate 25 Mg Tablet) 25 mg PO DAILY [facility] Last Admin: 11/01/24 09:58 Dose: 25 mg Trazodone HCl (Trazodone Hcl 50 Mg Tablet) 50 mg PO BEDTIME MRX1 PRN PRN Reason: Insomnia Last Admin: 10/29/24 20:28 Dose: 50 mg Allergies Allergies Allergy/AdvReac Type Severity Reaction Status Date / Time ampicillin Allergy Rash Verified 10/20/24 19:28 morphine Allergy Rash Verified 10/20/24 19:28 Penicillins Allergy Rash Verified 10/20/24 19:28 Assessment & Plan Assessment & Plan (1) MDD (major depressive disorder), recurrent episode, moderate: Status: Acute Code(s): F33.1 - Major depressive disorder, recurrent, moderate (2) Gastroparesis: Status: Acute Code(s): K31.84 - Gastroparesis (3) Anxiety: Status: Acute Code(s): F41.9 - Anxiety disorder, unspecified (4) RLS (restless legs syndrome): Status: Acute Code(s): G25.81 - Restless legs syndrome Plan 10/25/2024: Change Ativan and propranolol to twice daily with hold parameters in place for sedation and blood pressure respectively 10/26: Lower gabapentin from 200 mg 3 times per day to 100 mg 3 times per day 10/27: bentyl and reglan for abdo discomfort and nausea. 10/28 d/c reglan as it may exacerbate Akathisia/RLS. increase cymbalta to 60mg po daily. continue remeron. 10/29 switch ativan to clonazepam, continue gabapentin at current dose, increase in restlessness and anxiety. restart lamictal 50mg po qhs- although therapeutic benefit of medication is unclear. avoid polypharmacy as pt may tend to ask for several interventions. 10/30 continue tx. 10/31 continue tx. 11/01 pt continues to present as dysphoric, low frustration tolerance. signed 3 day. d/c lamictal, will try carbamazepine for mood stabilization. CAUTION with antipsychotic as may exacerbate rls/ akathisia. Reason for continued inpatient stay Substantial Risk for: inability to function Time Spent With Patient Time: Total time managing care of this patient today ____ minutes.
--- NOTE | 2024-11-01 17:22 | MHC.CLN ---
NUTRITION VISITED WITH PATIENT ON UNIT TO DISCUSS GASTROPARESIS. PATIENT REPORTS GASTROPARESIS AND PAIN. SUGGESTED ADDING YOGURT WITH MEALS OR SNACKS FOR GUT HEALTH. EXPLAINED THAT YOGURT IS OK FOR LACTOSE INTOLERANCE. HAS TRIED ENSURE SUPPLEMENT BUT DID NOT TOLERATE. RD TO MONITOR WEEKLY.
[2024-11-01] MEDS: Magnesium Hydrox/Alum Hydrox 30 ML ORAL.SUSP PO (18:57)
[2024-11-01 19:49] LABS: Glucose, Whole Blood 209 mg/dL (60-115)
[2024-11-01 20:00] VITALS: BP 140/72; PULSE 88; RESP 18; TEMP 36.9; O2SAT 98
[2024-11-02 06:45] LABS: Glucose, Whole Blood 185 mg/dL (60-115)
[2024-11-02 08:00] VITALS: BP 124/71; PULSE 95; RESP 16; TEMP 36.8
[2024-11-02] MEDS: Fluticasone/Vilanterol 100/25 BLST.W.DEV 1 PUFF INHALE (08:42)
[2024-11-02] MEDS: Milk of Magnesia 30 ML ORAL.SUSP PO (10:42)
[2024-11-02 11:31] LABS: Glucose, Whole Blood 445 mg/dL (60-115)
[2024-11-02 11:31] LABS: Glucose, Whole Blood 469 mg/dL (60-115)
[2024-11-02 13:23] LABS: Glucose, Whole Blood 379 mg/dL (60-115)
[2024-11-02 16:38] LABS: Glucose, Whole Blood 206 mg/dL (60-115)
--- NOTE | 2024-11-02 17:10 | P.PNPSI_ITS ---
Subjective Subjective Date of Service: 11/02/24 Reason For Visit: SI with plan to OD on medications, increased anxie Subjective Notes: Conditional Voluntary Interim History: Medical record and nursing notes reviewed; case discussed during rounds with team/nursing staff, and met with patient for supportive therapy/psychoeducation, as well as medication management. Patient is in bed resting, reported that she could not sleep well due to stomach pain. Requests and hyperverbal on stomach painx, good like to see the hospitalist. Pain 10/31. She was medication compliant. Blood sugar elevated more than usual today. Reports to nursing that she has not having bowel movement for 4 days. Given PRNs with pending effects. Denied depression Medication Compliance: Yes Side effects from medications: No Attending Groups: Intermittent Review of Systems Acute medical concerns: Yes Severe stomach pain. Consult sent to hospitalist. Medical Review of Systems: unchanged Review of Systems Review of Systems abdo discomfort/cramping and nausea- reports similar to gastroparesis symptoms in past. Got worse today. Yes all other systems are reviewed and are negative Mental Status Exam Mental Status Exam Narrative: Appearance: wearing hospital gown, fair hygiene, movement of lower extremities noted. Behavior: cooperative Psychomotor: constant movement of lower extremities Speech: clear, normal rate/rhythm/volume, spontaneous TP: linear TC: distressed by nausea Mood: not depressed , but anxious Affect: congruent SI: denies HI: none VH/AH: none Delusions: none Memory/cog: alert, oriented x 1. MOCA on 10/24/2024 10/30, ACL 4.4 Diagnostics Vital Signs (24Hr): Vital Signs - 24 hr 11/01/24 20:00 11/02/24 08:00 Temperature 98.4 F 98.2 F Pulse Rate 88 95 Respiratory Rate 18 16 Blood Pressure 140/72 H 124/71 Pulse Oximetry 98 Oxygen Delivery Method Room Air BMI result Body Mass Index 22.9 Labs 11/02/24 20:14 11/02/24 20:14 Labs: Laboratory Results - last 48 hr 11/01/24 11/01/24 11/01/24 06:33 11:05 16:24 POC Glucose 199 H 257 H 124 H 11/01/24 11/02/24 11/02/24 19:41 06:34 11:26 POC Glucose 209 H 185 H 445 H* 11/02/24 11/02/2425 11:28 13:18 16:31 POC Glucose 469 H* 379 H* 206 H Medications Medications Current Medications Acetaminophen (Acetaminophen 325 Mg Tablet) 650 mg PO Q6H PRN PRN Reason: Headache/Pain, Scale 1-10 Last Admin: 10/26/24 18:34 Dose: 650 mg Al Hydroxide/Mg Hydroxide (Magnesium Hydrox/Alum Hydrox 30 Ml Oral.Susp) 30 ml PO Q6H PRN PRN Reason: Heartburn/Nausea Last Admin: 11/01/24 18:57 Dose: 30 ml Albuterol Sulfate (Albuterol Sulfate 90 Mcg 8 Gm Inhaler) 2 puff INHALE Q4H PRN PRN Reason: Shortness Of Breath Or Wheezin Amlodipine Besylate (Amlodipine Besylate 2.5 Mg Tablet) 2.5 mg PO DAILY [facility]; Protocol Last Admin: 11/02/24 08:43 Dose: 2.5 mg Atorvastatin Calcium (Atorvastatin Calcium 20 Mg Tablet) 20 mg PO DAILY [facility] Last Admin: 11/02/24 08:42 Dose: 20 mg Carbamazepine (Carbamazepine 200 Mg Tablet) 200 mg PO BID [facility] Last Admin: 11/02/24 08:43 Dose: 200 mg Clonazepam (Clonazepam 0.5 Mg Tablet) 0.5 mg PO BID [facility] Last Admin: 11/02/24 08:42 Dose: 0.5 mg Dicyclomine HCl (Dicyclomine Hcl 10 Mg Capsule) 10 mg PO Q4H PRN PRN Reason: abdominal cramping Last Admin: 11/01/24 16:29 Dose: 10 mg Docusate Sodium (Docusate Sodium 100 Mg Capsule) 100 mg PO BID [facility] Duloxetine HCl (Duloxetine Hcl 60 Mg Capsule.Dr) 60 mg PO DAILY [facility] Last Admin: 11/02/24 08:43 Dose: 60 mg Fluticasone/Vilanterol (Fluticasone/Vilanterol 100/25 Blst.W.Dev) 1 puff INHALE RDAILY [facility] Last Admin: 11/02/24 08:42 Dose: 1 puff Gabapentin (Gabapentin 100 Mg Capsule) 100 mg PO TID [facility] Last Admin: 11/02/24 15:18 Dose: 100 mg Glipizide (Glipizide Xl 2.5 Mg Tab.Er.24) 2.5 mg PO DAILY [facility] Last Admin: 11/02/24 08:42 Dose: 2.5 mg Insulin Human Lispro (Insulin Lispro 100 Unit/Ml 3 Ml Vial) 0 unit SUBCUT TIDAC [facility]; Protocol Last Admin: 11/02/24 11:42 Dose: 10 unit Lisinopril (Lisinopril 20 Mg Tablet) 20 mg PO DAILY [facility]; Protocol On Hold: 10/30/24 16:25 Comment: renal function Last Admin: 10/30/24 08:02 Dose: 20 mg Magnesium Hydroxide (Milk Of Magnesia 30 Ml Oral.Susp) 30 ml PO DAILY PRN PRN Reason: Constipation Last Admin: 11/02/24 10:42 Dose: 30 ml Mirtazapine (Mirtazapine 30 Mg Tablet) 30 mg PO BEDTIME [facility] Last Admin: 11/01/24 20:12 Dose: 30 mg Omeprazole (Omeprazole 20 Mg Capsule.Dr) 20 mg PO BID@0630,1630 [facility] Last Admin: 11/02/24 06:34 Dose: 20 mg Ondansetron HCl (Ondansetron Odt 4 Mg Tab.Rapdis) 4 mg TRANSLINGU Q4H PRN PRN Reason: Nausea and Vomiting Last Admin: 11/02/24 09:15 Dose: 4 mg Simethicone (Simethicone 80 Mg Tab.Chew) 80 mg PO QIDWMHS [facility] Last Admin: 11/02/24 13:22 Dose: Not Given Sitagliptin Phosphate (Sitagliptin Phosphate 25 Mg Tablet) 25 mg PO DAILY [facility] Last Admin: 11/02/24 08:42 Dose: 25 mg Trazodone HCl (Trazodone Hcl 50 Mg Tablet) 50 mg PO BEDTIME MRX1 PRN PRN Reason: Insomnia Last Admin: 11/01/24 20:12 Dose: 50 mg Allergies Allergies Allergy/AdvReac Type Severity Reaction Status Date / Time ampicillin Allergy Rash Verified 10/20/24 19:28 morphine Allergy Rash Verified 10/20/24 19:28 Penicillins Allergy Rash Verified 10/20/24 19:28 Assessment & Plan Assessment & Plan (1) MDD (major depressive disorder), recurrent episode, moderate: Status: Acute Code(s): F33.1 - Major depressive disorder, recurrent, moderate (2) Gastroparesis: Status: Acute Code(s): K31.84 - Gastroparesis (3) Anxiety: Status: Acute Code(s): F41.9 - Anxiety disorder, unspecified (4) RLS (restless legs syndrome): Status: Acute Code(s): G25.81 - Restless legs syndrome Plan 10/25/2024: Change Ativan and propranolol to twice daily with hold parameters in place for sedation and blood pressure respectively 10/26: Lower gabapentin from 200 mg 3 times per day to 100 mg 3 times per day 10/27: bentyl and reglan for abdo discomfort and nausea. 10/28 d/c reglan as it may exacerbate Akathisia/RLS. increase cymbalta to 60mg po daily. continue remeron. 10/29 switch ativan to clonazepam, continue gabapentin at current dose, increase in restlessness and anxiety. restart lamictal 50mg po qhs- although therapeutic benefit of medication is unclear. avoid polypharmacy as pt may tend to ask for several interventions. 10/30 continue tx. 10/31 continue tx. 11/01 pt continues to present as dysphoric, low frustration tolerance. signed 3 day. d/c lamictal, will try carbamazepine for mood stabilization. CAUTION with antipsychotic as may exacerbate rls/ akathisia. 11/01/24: Not sleeping well lats night d/t stomach pain. Hospitalist consult sent. Hyperfocus on stomach pain. No bowel movement for 4 days No SI/SIB/HI/AVH. Compliant with meds. No side effects. Patient educated on: medication risk/benefits Informed Consent: understands Reason for continued inpatient stay Substantial Risk for: med/psych decompensation Time Spent With Patient Time: Total time managing care of this patient today ____ minutes.
--- NOTE | 2024-11-02 19:43 | PM.EVENT ---
Event Note Date of Service: 11/02/24 Time Spent With Patient Time: Total time managing care of this patient today ____ minutes.
[2024-11-02 19:50] LABS: Glucose, Whole Blood 153 mg/dL (60-115)
[2024-11-02 20:00] VITALS: BP 127/72; PULSE 100; RESP 16; TEMP 35.9; O2SAT 96
[2024-11-02 20:19] LABS: Hematocrit 29.1 % (37.0-47.0); Hemoglobin 10.4 g/dl (12.0-16.0); Imm Gran Abs Auto 0.03 X10*3/uL (0.00-0.03); Imm Gran Pct Auto 0.4 % (0.0-0.4); Lymphocytes Absolute Auto 1.9 X10*3/uL (1.2-4.9); MANUAL DIFF FLAG NO; Mean Corpuscular HGB Conc 35.7 g/dl (31.0-35.0); Mean Corpuscular Hemoglobin 30.2 pg (27.0-33.0); Mean Corpuscular Volume 84.6 fL (80.0-98.0); NRBC Abs Auto 0.000 X10*3/uL (0.0-0.012); NRBC Pct Auto 0.0 /100WBC (0.0-0.2); Platelet Count 286 X10*3/uL (160-400); Red Blood Count 3.44 X10*6/uL (4.20-5.50); White Blood Count 6.8 X10*3/uL (4.8-10.8)
[2024-11-02 20:21] LABS: Venous Blood Gas Refer to POC result
[2024-11-02 20:22] LABS: VBG HCO3 26 mmol/L (22-26); VBG O2 % Saturation 76.0 %
[2024-11-02 20:37] LABS: Alanine Aminotransferase 25 U/L (0-31); Albumin Level 4.4 g/dL (3.5-5.0); Alkaline Phosphatase 79 U/L (39-117); Anion Gap 12 (12-20); Aspartate Amino Transferase 16 U/L (5-31); Blood Urea Nitrogen 33 mg/dL (9-16); Calcium 9.3 mg/dL (8.4-10.2); Carbon Dioxide 26 mmol/L (22-29); Chloride 100 mmol/L (96-108); Lipase 37 U/L (8-78); Magnesium 2.2 mg/dL (1.6-2.6); Potassium 4.7 mmol/L (3.3-5.1); Sodium 133 mmol/L (135-145); Total Protein 7.1 g/dL (6.5-8.0)
[2024-11-02 20:41] LABS: Appearance Urine Clear; Glucose Urine UA Negative (Negative); PH 6.5 (5.0-9.0); Specific Gravity - Urine 1.015 (1.005-1.025); UMIC TRIGGER UA YES
[2024-11-02 20:48] LABS: Creatinine Clr Calc Pharmacy 18.0; Estimated Glomerular Filt Rate 26
[2024-11-02 21:41] LABS: Glucose, Whole Blood 123 mg/dL (60-115)
--- NOTE | 2024-11-02 22:42 | P.EN_ITS ---
Event Note Date of Service: 11/02/24 Event Note: Psychiatry ordered hospitalist consultation for continued stomach pain. Patient is seen on evenings was found in the day room eating a sandwich. Patient was reporting abdominal pain especially in the upper mid gastric region. Patient states she has not had a bowel movement in 4 days. Abdomen upon palpation was soft, nontender with no guarding. Patient denied any nausea, vomiting or diarrhea. Patient states she has been trying to eat to keep up her energy. Upon review of patient's medications patient has been on Bentyl p.r.n. for cramping. Patient also denies any dysuria or burning with urination. Patient currently denies any chest pain, shortness of breath at rest or with exertion. Vital signs stable, temp 98.2 degrees, heart rate 95, respiratory rate 16, blood pressure 124/71. Patient is sent for CT scan of the abdomen without contrast due to renal function. Labs also completed and reassuring for no leukocytosis in the normal lactic acid. LFTs also stable and no evidence of renal failure. UA questionable for UTI. CT completed and there was no evidence of bowel obstruction or free air. And there was also no evidence of colitis or diverticulitis. Stool burden was present and was considered moderate to large throughout the colon and in the rectum. In addition patient noted to have mild bibasilar atelectasis with a small pericardial effusion. EKG done prior notes normal sinus rhythm with no diffuse ST changes. Patient also has evidence for small uterine fibroid or fibroids. Plan for this patient is to increase patient's bowel regimen to include a Dulcolax suppository tonight x1. In addition patient will continue senna and MiraLax and Metamucil have been added to patient's regimen until patient's starts moving her bowels regularly. It is recommended that the Bentyl be placed on hold as this may be contributing to patient's constipation. Patient encouraged to hydrate properly. A/P Constipation/ Moderate stool burden colon and rectum Hold bentyl for at least 24 hours Encourage hydration Dulcolax suppository x1 tonight Continue senna at HS MiraLax daily Metamucil daily Keep track of bowel movements, if patient goes longer than 3 days, administer another Dulcolax suppository which is now ordered p.r.n. CT negative for any acute findings including bowel obstruction, diverticulitis, colitis and lactic acid is within normal limits with no leukocytosis Patient will need to follow up with GI specialist in [place] upon discharge. This should be included in patient's discharge summary. Possible UTI UA noted for large leukocyte esterase and 11-20 WBCs. Negative for bacteria and nitrites. Negative for bacteria Culture requested Holding off on antibiotics until culture is resulted. No leukocytosis noted. Patient currently asymptomatic. Follow urine culture Small Pericardial Effusion via CT scan Patient will require outpatient echocardiogram which can be arranged through her PCP This should be documented on patient's discharge summary Bibasilar atelectasis Encourage patient to use incentive spirometer that is now ordered No evidence of hypoxia and no indication for chest x-ray at this time Fibroids Patient will need follow-up news content specialist specialist which can be arranged through her PCP This should be documented on patient's discharge summary There is no current indication to consult GI inpatient at this time. Patient does not require inpatient admission at this time as well. Hospitalist group will be signing off at this time. Please feel free to reconsult for any further medical concerns. Patient's care needs and plan of care reviewed with Dr. Godinez, attending for the hospitalist group. Time Spent With Patient Time: Total time managing care of this patient today ____ minutes.
[2024-11-03 06:51] LABS: Glucose, Whole Blood 164 mg/dL (60-115)
[2024-11-03 08:00] VITALS: BP 122/58; PULSE 89; RESP 14; TEMP 36.9; O2SAT 98
[2024-11-03] MEDS: Fluticasone/Vilanterol 100/25 BLST.W.DEV 1 PUFF INHALE (08:50)
[2024-11-03] MEDS: Psyllium seed 3.7 GM PACKET PO (10:28)
[2024-11-03 11:29] LABS: Glucose, Whole Blood 238 mg/dL (60-115)
--- NOTE | 2024-11-03 13:48 | HO.PSYCHPN ---
Subjective Subjective Date of Service: 11/03/24 Reason For Visit: SI with plan to OD on medications, increased anxie Subjective Notes: Conditional Voluntary Guardianship: No Medical Problems Affecting Mental Status: No Interim History: Medical record and nursing notes reviewed; case discussed during rounds with team/nursing staff, and met with patient for supportive therapy/psychoeducation, as well as medication management. Self reports that she could not sleep well last night. Feeling better today for her stomach. She seen by the hospitalist yesterday. He is aware of medication recommended for constipation, and breathing treatment. Blood sugar is in better control and medication compliant. No other safety concerns, resting in bed, Medication Compliance: Yes Side effects from medications: No Attending Groups: Intermittent Review of Systems Acute medical concerns: No Medical Review of Systems: unchanged Review of Systems Review of Systems abdo discomfort/cramping and nausea- reports similar to gastroparesis symptoms in past. Got worse today. Yes all other systems are reviewed and are negative Mental Status Exam Mental Status Exam Narrative: Appearance: wearing hospital gown, fair hygiene, movement of lower extremities noted. Behavior: cooperative Psychomotor: constant movement of lower extremities Speech: clear, normal rate/rhythm/volume, spontaneous TP: linear TC: distressed by nausea Mood: i am better ,anxious Affect: congruent SI: denies HI: none VH/AH: none Delusions: none Memory/cog: alert, oriented x 1. MOCA on 10/24/202402/20, ACL 4.4 Diagnostics Vital Signs (24Hr): Vital Signs - 24 hr 11/02/24 20:00 11/03/24 08:00 Temperature 96.6 F L 98.4 F Pulse Rate 100 89 Respiratory Rate 16 14 Blood Pressure 127/72 122/58 L Pulse Oximetry 96 98 Oxygen Delivery Method Room Air Room Air BMI result Body Mass Index 22.9 Labs 11/02/24 20:14 11/02/24 20:14 Labs: Laboratory Results - last 48 hr 11/01/24 11/01/24 11/02/24 16:24 19:41 06:34 WBC RBC Hgb Hct MCV MCH MCHC RDW Plt Count MPV Immature Gran % (Auto) Neut % (Auto) Lymph % (Auto) Crowley % (Auto) Eos % (Auto) Baso % (Auto) Lymph # (Auto) Crowley # (Auto) Eos # (Auto) Baso # (Auto) Abs Immat Gran (auto) Absolute Neuts (auto) Absolute Nucleated RBC Nucleated RBC % (auto) VBG pH VBG pCO2 VBG pO2 VBG HCO3 VBG O2 Saturation VBG Base Excess Sodium Potassium Chloride Carbon Dioxide Anion Gap BUN Creatinine Estim Creat Clear Calc Estimated GFR POC Glucose 124 H 209 H 185 H Random Glucose Lactic Acid Calcium Magnesium Total Bilirubin AST ALT Alkaline Phosphatase Total Protein Albumin Lipase Urine Color Urine Appearance Urine pH Ur Specific [place] Urine Protein Urine Glucose (UA) Urine Ketones Urine Blood Urine Nitrite Ur Leukocyte Esterase Urine RBC Urine WBC Ur Squamous Epith Cells Urine Bacteria Hyaline Casts 11/02/24 11/02/24 11/02/24 11:26 11:28 13:18 WBC RBC Hgb Hct MCV MCH MCHC RDW Plt Count MPV Immature Gran % (Auto) Neut % (Auto) Lymph % (Auto) Crowley % (Auto) Eos % (Auto) Baso % (Auto) Lymph # (Auto) Crowley # (Auto) Eos # (Auto) Baso # (Auto) Abs Immat Gran (auto) Absolute Neuts (auto) Absolute Nucleated RBC Nucleated RBC % (auto) VBG pH VBG pCO2 VBG pO2 VBG HCO3 VBG O2 Saturation VBG Base Excess Sodium Potassium Chloride Carbon Dioxide Anion Gap BUN Creatinine Estim Creat Clear Calc Estimated GFR POC Glucose 445 H* 469 H* 379 H* Random Glucose Lactic Acid Calcium Magnesium Total Bilirubin AST ALT Alkaline Phosphatase Total Protein Albumin Lipase Urine Color Urine Appearance Urine pH Ur Specific [place] Urine Protein Urine Glucose (UA) Urine Ketones Urine Blood Urine Nitrite Ur Leukocyte Esterase Urine RBC Urine WBC Ur Squamous Epith Cells Urine Bacteria Hyaline Casts 11/02/24 11/02/24 11/02/24 16:31 19:46 20:13 WBC RBC Hgb Hct MCV MCH MCHC RDW Plt Count MPV Immature Gran % (Auto) Neut % (Auto) Lymph % (Auto) Crowley % (Auto) Eos % (Auto) Baso % (Auto) Lymph # (Auto) Crowley # (Auto) Eos # (Auto) Baso # (Auto) Abs Immat Gran (auto) Absolute Neuts (auto) Absolute Nucleated RBC Nucleated RBC % (auto) VBG pH VBG pCO2 VBG pO2 VBG HCO3 VBG O2 Saturation VBG Base Excess Sodium Potassium Chloride Carbon Dioxide Anion Gap BUN Creatinine Estim Creat Clear Calc Estimated GFR POC Glucose 206 H 153 H Random Glucose Lactic Acid 1.2 Calcium Magnesium Total Bilirubin AST ALT Alkaline Phosphatase Total Protein Albumin Lipase Urine Color Urine Appearance Urine pH Ur Specific [place] Urine Protein Urine Glucose (UA) Urine Ketones Urine Blood Urine Nitrite Ur Leukocyte Esterase Urine RBC Urine WBC Ur Squamous Epith Cells Urine Bacteria Hyaline Casts 11/02/24 11/02/24 11/02/24 20:14 20:18 20:20 WBC 6.8 RBC 3.44 L Hgb 10.4 L Hct 29.1 L MCV 84.6 MCH 30.2 MCHC 35.7 H RDW 13.2 Plt Count 286 MPV 8.6 L Immature Gran % (Auto) 0.4 Neut % (Auto) 59.4 Lymph % (Auto) 27.6 Crowley % (Auto) 11.3 H Eos % (Auto) 1.0 Baso % (Auto) 0.3 Lymph # (Auto) 1.9 Crowley # (Auto) 0.8 Eos # (Auto) 0.1 Baso # (Auto) 0.0 Abs Immat Gran (auto) 0.03 Absolute Neuts (auto) 4.1 Absolute Nucleated RBC 0.000 Nucleated RBC % (auto) 0.0 VBG pH 7.44 H VBG pCO2 37 VBG pO2 48 VBG HCO3 26 VBG O2 Saturation 76.0 VBG Base Excess 2.3 Sodium 133 L Potassium 4.7 Chloride 100 Carbon Dioxide 26 Anion Gap 12 BUN 33 H Creatinine 1.86 H Estim Creat Clear Calc 18.0 Estimated GFR 26 POC Glucose Random Glucose 135 H Lactic Acid Calcium 9.3 Magnesium 2.2 Total Bilirubin 0.4 AST 16 ALT 25 Alkaline Phosphatase 79 Total Protein 7.1 Albumin 4.4 Lipase 37 Urine Color Yellow Urine Appearance Clear Urine pH 6.5 Ur Specific [place] 1.015 Urine Protein Negative Urine Glucose (UA) Negative Urine Ketones Negative Urine Blood Negative Urine Nitrite Negative Ur Leukocyte Esterase Large (3+) H Urine RBC 0-2 Urine WBC 11-20 H Ur Squamous Epith Cells 0-2 Urine Bacteria None Seen Hyaline Casts 0-2 11/02/24 11/03/24 11/03/24 21:38 06:38 11:23 WBC RBC Hgb Hct MCV MCH MCHC RDW Plt Count MPV Immature Gran % (Auto) Neut % (Auto) Lymph % (Auto) Crowley % (Auto) Eos % (Auto) Baso % (Auto) Lymph # (Auto) [place]ley # (Auto) Eos # (Auto) Baso # (Auto) Abs Immat Gran (auto) Absolute Neuts (auto) Absolute Nucleated RBC Nucleated RBC % (auto) VBG pH VBG pCO2 VBG pO2 VBG HCO3 VBG O2 Saturation VBG Base Excess Sodium Potassium Chloride Carbon Dioxide Anion Gap BUN Creatinine Estim Creat Clear Calc Estimated GFR POC Glucose 123 H 164 H 238 H Random Glucose Lactic Acid Calcium Magnesium Total Bilirubin AST ALT Alkaline Phosphatase Total Protein Albumin Lipase Urine Color Urine Appearance Urine pH Ur Specific [place] Urine Protein Urine Glucose (UA) Urine Ketones Urine Blood Urine Nitrite Ur Leukocyte Esterase Urine RBC Urine WBC Ur Squamous Epith Cells Urine Bacteria Hyaline Casts Medications Medications Current Medications Acetaminophen (Acetaminophen 325 Mg Tablet) 650 mg PO Q6H PRN PRN Reason: Headache/Pain, Scale 1-10 Last Admin: 10/26/24 18:34 Dose: 650 mg Al Hydroxide/Mg Hydroxide (Magnesium Hydrox/Alum Hydrox 30 Ml Oral.Susp) 30 ml PO Q6H PRN PRN Reason: Heartburn/Nausea Last Admin: 11/01/24 18:57 Dose: 30 ml Albuterol Sulfate (Albuterol Sulfate 90 Mcg 8 Gm Inhaler) 2 puff INHALE Q4H PRN PRN Reason: Shortness Of Breath Or Wheezin Amlodipine Besylate (Amlodipine Besylate 2.5 Mg Tablet) 2.5 mg PO DAILY [facility]; Protocol Last Admin: 11/03/24 08:50 Dose: 2.5 mg Atorvastatin Calcium (Atorvastatin Calcium 20 Mg Tablet) 20 mg PO DAILY [facility] Last Admin: 11/03/24 08:50 Dose: 20 mg Bisacodyl (Bisacodyl 10 Mg Supp.Rect) 10 mg SD BEDTIME PRN PRN Reason: Constipation Carbamazepine (Carbamazepine 200 Mg Tablet) 200 mg PO BID [facility] Last Admin: 11/03/24 08:50 Dose: 200 mg Clonazepam (Clonazepam 0.5 Mg Tablet) 0.5 mg PO BID [facility] Last Admin: 11/03/24 08:50 Dose: 0.5 mg Dicyclomine HCl (Dicyclomine Hcl 10 Mg Capsule) 10 mg PO Q4H PRN On Hold: 11/02/24 22:41 PRN Reason: abdominal cramping Last Admin: 11/02/24 21:17 Dose: 10 mg Docusate Sodium (Docusate Sodium 100 Mg Capsule) 100 mg PO BID [facility] Last Admin: 11/03/24 08:50 Dose: 100 mg Duloxetine HCl (Duloxetine Hcl 60 Mg Capsule.) 60 mg PO DAILY [facility] Last Admin: 11/03/24 08:50 Dose: 60 mg Fluticasone/Vilanterol (Fluticasone/Vilanterol 100/ Blst.W.Dev) 1 puff INHALE RDAILY [facility] Last Admin: 11/03/24 08:50 Dose: 1 puff Gabapentin (Gabapentin 100 Mg Capsule) 100 mg PO TID [facility] Last Admin: 11/03/24 08:50 Dose: 100 mg Glipizide (Glipizide Xl 2.5 Mg Tab.Er.24) 2.5 mg PO DAILY [facility] Last Admin: 11/03/24 08:50 Dose: 2.5 mg Insulin Human Lispro (Insulin Lispro 100 Unit/Ml 3 Ml Vial) 0 unit SUBCUT TIDAC [facility]; Protocol Last Admin: 11/03/24 11:32 Dose: 4 unit Lisinopril (Lisinopril 20 Mg Tablet) 20 mg PO DAILY [facility]; Protocol On Hold: 10/30/24 16:25 Comment: renal function Last Admin: 10/30/24 08:02 Dose: 20 mg Magnesium Hydroxide (Milk Of Magnesia 30 Ml Oral.Susp) 30 ml PO DAILY PRN PRN Reason: Constipation Last Admin: 11/02/24 10:42 Dose: 30 ml Mirtazapine (Mirtazapine 30 Mg Tablet) 30 mg PO BEDTIME [facility] Last Admin: 11/02/24 21:17 Dose: 30 mg Omeprazole (Omeprazole 20 Mg Capsule.) 20 mg PO BID@0630,1630 [facility] Last Admin: 11/03/24 06:34 Dose: 20 mg Ondansetron HCl (Ondansetron Odt 4 Mg Tab.Rapdis) 4 mg TRANSLINGU Q4H PRN PRN Reason: Nausea and Vomiting Last Admin: 11/02/24 21:18 Dose: 4 mg Polyethylene Glycol (Polyethylene Glycol 3350 17 Gm Powd.Pack) 17 gm PO DAILY [facility] Last Admin: 11/03/24 08:50 Dose: 17 gm Psyllium Hydrophilic Mucilloid (Psyllium Seed 3.7 Gm Packet) 3.7 gm PO DAILY [facility] Last Admin: 11/03/24 10:28 Dose: 3.7 gm Senna (Sennosides 8.6 Mg Tablet) 17.2 mg PO BEDTIME [facility] Last Admin: 11/02/24 23:00 Dose: 17.2 mg Simethicone (Simethicone 80 Mg Tab.Chew) 80 mg PO QIDWMHS [facility] Last Admin: 11/03/24 11:33 Dose: 80 mg Sitagliptin Phosphate (Sitagliptin Phosphate 25 Mg Tablet) 25 mg PO DAILY [facility] Last Admin: 11/03/24 08:50 Dose: 25 mg Trazodone HCl (Trazodone Hcl 50 Mg Tablet) 50 mg PO BEDTIME MRX1 PRN PRN Reason: Insomnia Last Admin: 11/02/24 21:17 Dose: 50 mg Allergies Allergies Allergy/AdvReac Type Severity Reaction Status Date / Time ampicillin Allergy Rash Verified 10/20/24 19:28 morphine Allergy Rash Verified 10/20/24 19:28 Penicillins Allergy Rash Verified 10/20/24 19:28 Assessment & Plan Assessment & Plan (1) MDD (major depressive disorder), recurrent episode, moderate: Status: Acute Code(s): F33.1 - Major depressive disorder, recurrent, moderate (2) Gastroparesis: Status: Acute Code(s): K31.84 - Gastroparesis (3) Anxiety: Status: Acute Code(s): F41.9 - Anxiety disorder, unspecified (4) RLS (restless legs syndrome): Status: Acute Code(s): G25.81 - Restless legs syndrome Plan 10/25/2024: Change Ativan and propranolol to twice daily with hold parameters in place for sedation and blood pressure respectively 10/26: Lower gabapentin from 200 mg 3 times per day to 100 mg 3 times per day 10/27: bentyl and reglan for abdo discomfort and nausea. 10/28 d/c reglan as it may exacerbate Akathisia/RLS. increase cymbalta to 60mg po daily. continue remeron. 10/29 switch ativan to clonazepam, continue gabapentin at current dose, increase in restlessness and anxiety. restart lamictal 50mg po qhs- although therapeutic benefit of medication is unclear. avoid polypharmacy as pt may tend to ask for several interventions. 10/30 continue tx. 10/31 continue tx. 11/01 pt continues to present as dysphoric, low frustration tolerance. signed 3 day. d/c lamictal, will try carbamazepine for mood stabilization. CAUTION with antipsychotic as may exacerbate rls/ akathisia. 11/02/24: Not sleeping well lats night d/t stomach pain. Hospitalist consult sent. Hyperfocus on stomach pain. No bowel movement for 4 days No SI/SIB/HI/AVH. Compliant with meds. No side effects. 11/03/24: Poor sleep, feeling better on stomach, seen by hospitalist and have abdominal scan yesterday, started treatment with laxative and breathing treatment. Less anxious, medication compliant. Patient to report if she has loose stool. Reports have small stools/BM today,. See hospitalist note for more details Patient educated on: medication risk/benefits and therapeutic strategies Informed Consent: understands and further education needed Reason for continued inpatient stay Substantial Risk for: med/psych decompensation Time Spent With Patient Time: Total time managing care of this patient today ____ minutes.
[2024-11-03 16:10] LABS: Glucose, Whole Blood 185 mg/dL (60-115)
[2024-11-03 20:00] VITALS: BP 148/68; PULSE 99; RESP 18; TEMP 36.3; O2SAT 99
[2024-11-03] MEDS: Milk of Magnesia 30 ML ORAL.SUSP PO (22:37)
[2024-11-04 06:52] LABS: Glucose, Whole Blood 148 mg/dL (60-115)
[2024-11-04 08:00] VITALS: BP 125/64; PULSE 85; RESP 16; TEMP 36.8; O2SAT 93
[2024-11-04] MEDS: Psyllium seed 3.7 GM PACKET PO (09:24)
[2024-11-04] MEDS: Fluticasone/Vilanterol 100/25 BLST.W.DEV 1 PUFF INHALE (09:24)
[2024-11-04 09:25] VITALS: BP 130/69
[2024-11-04 10:35] LABS: Alanine Aminotransferase 25 U/L (0-31); Albumin Level 4.2 g/dL (3.5-5.0); Alkaline Phosphatase 67 U/L (39-117); Anion Gap 16 (12-20); Aspartate Amino Transferase 25 U/L (5-31); Blood Urea Nitrogen 35 mg/dL (9-16); Calcium 9.1 mg/dL (8.4-10.2); Carbon Dioxide 22 mmol/L (22-29); Chloride 102 mmol/L (96-108); Creatinine Clr Calc Pharmacy 29.2; Estimated Glomerular Filt Rate 46; Potassium 5.5 mmol/L (3.3-5.1); Sodium 134 mmol/L (135-145); Total Protein 6.9 g/dL (6.5-8.0)
--- NOTE | 2024-11-04 10:45 | HO.PSYCHPN ---
Subjective Subjective Date of Service: 11/04/24 Reason For Visit: SI with plan to OD on medications, increased anxie Subjective Notes: Conditional Voluntary Interim History: Pt slept through the night. She reported feeling light headed, VS stable, ortho changes negative. She reports feeling less anxious but worried about where to go next. She would like to stay with son but he is unable to care for her. She denies SI/HI. Over the weekend, pt was seen by hospitalist due to abdominal pain, pt had constipation. Noted in labs increase in BUN 33, Cr 1.86. ordered repeat CMP on 11/04--> BUN 35, Cr down to 1.15. Pt appears less dysphoric. Diagnostics Vital Signs (24Hr): Vital Signs - 24 hr 11/03/24 20:00 11/04/24 08:00 11/04/24 09:25 Temperature 97.3 F 98.2 F Pulse Rate 99 85 Respiratory Rate 18 16 Blood Pressure 148/68 H 125/64 130/69 Pulse Oximetry 99 93 Oxygen Delivery Method Room Air Room Air BMI result Body Mass Index 22.9 Labs 11/02/24 20:14 11/04/24 09:52 Labs: Laboratory Results - last 48 hr 11/02/24 11/02/24 11/02/24 11:26 11:28 13:18 WBC RBC Hgb Hct MCV MCH MCHC RDW Plt Count MPV Immature Gran % (Auto) Neut % (Auto) Lymph % (Auto) [place] % (Auto) Eos % (Auto) Baso % (Auto) Lymph # (Auto) [place] # (Auto) Eos # (Auto) Baso # (Auto) Abs Immat Gran (auto) Absolute Neuts (auto) Absolute Nucleated RBC Nucleated RBC % (auto) VBG pH VBG pCO2 VBG pO2 VBG HCO3 VBG O2 Saturation VBG Base Excess Sodium Potassium Chloride Carbon Dioxide Anion Gap BUN Creatinine Estim Creat Clear Calc Estimated GFR POC Glucose 445 H* 469 H* 379 H* Random Glucose Lactic Acid Calcium Magnesium Total Bilirubin AST ALT Alkaline Phosphatase Total Protein Albumin Lipase Urine Color Urine Appearance Urine pH Ur Specific [place] Urine Protein Urine Glucose (UA) Urine Ketones Urine Blood Urine Nitrite Ur Leukocyte Esterase Urine RBC Urine WBC Ur Squamous Epith Cells Urine Bacteria Hyaline Casts 11/02/24 11/02/24 11/02/24 16:31 19:46 20:13 WBC RBC Hgb Hct MCV MCH MCHC RDW Plt Count MPV Immature Gran % (Auto) Neut % (Auto) Lymph % (Auto) [place] % (Auto) Eos % (Auto) Baso % (Auto) Lymph # (Auto) [place] # (Auto) Eos # (Auto) Baso # (Auto) Abs Immat Gran (auto) Absolute Neuts (auto) Absolute Nucleated RBC Nucleated RBC % (auto) VBG pH VBG pCO2 VBG pO2 VBG HCO3 VBG O2 Saturation VBG Base Excess Sodium Potassium Chloride Carbon Dioxide Anion Gap BUN Creatinine Estim Creat Clear Calc Estimated GFR POC Glucose 206 H 153 H Random Glucose Lactic Acid 1.2 Calcium Magnesium Total Bilirubin AST ALT Alkaline Phosphatase Total Protein Albumin Lipase Urine Color Urine Appearance Urine pH Ur Specific [place] Urine Protein Urine Glucose (UA) Urine Ketones Urine Blood Urine Nitrite Ur Leukocyte Esterase Urine RBC Urine WBC Ur Squamous Epith Cells Urine Bacteria Hyaline Casts 11/02/24 11/02/24 11/02/24 20:14 20:18 20:20 WBC 6.8 RBC 3.44 L Hgb 10.4 L Hct 29.1 L MCV 84.6 MCH 30.2 MCHC 35.7 H RDW 13.2 Plt Count 286 MPV 8.6 L Immature Gran % (Auto) 0.4 Neut % (Auto) 59.4 Lymph % (Auto) 27.6 [place] % (Auto) 11.3 H Eos % (Auto) 1.0 Baso % (Auto) 0.3 Lymph # (Auto) 1.9 [place] # (Auto) 0.8 Eos # (Auto) 0.1 Baso # (Auto) 0.0 Abs Immat Gran (auto) 0.03 Absolute Neuts (auto) 4.1 Absolute Nucleated RBC 0.000 Nucleated RBC % (auto) 0.0 VBG pH 7.44 H VBG pCO2 37 VBG pO2 48 VBG HCO3 26 VBG O2 Saturation 76.0 VBG Base Excess 2.3 Sodium 133 L Potassium 4.7 Chloride 100 Carbon Dioxide 26 Anion Gap 12 BUN 33 H Creatinine 1.86 H Estim Creat Clear Calc 18.0 Estimated GFR 26 POC Glucose Random Glucose 135 H Lactic Acid Calcium 9.3 Magnesium 2.2 Total Bilirubin 0.4 AST 16 ALT 25 Alkaline Phosphatase 79 Total Protein 7.1 Albumin 4.4 Lipase 37 Urine Color Yellow Urine Appearance Clear Urine pH 6.5 Ur Specific [place] 1.015 Urine Protein Negative Urine Glucose (UA) Negative Urine Ketones Negative Urine Blood Negative Urine Nitrite Negative Ur Leukocyte Esterase Large (3+) H Urine RBC 0-2 Urine WBC 11-20 H Ur Squamous Epith Cells 0-2 Urine Bacteria None Seen Hyaline Casts 0-2 11/02/24 11/03/24 11/03/24 21:38 06:38 11:23 WBC RBC Hgb Hct MCV MCH MCHC RDW Plt Count MPV Immature Gran % (Auto) Neut % (Auto) Lymph % (Auto) [place] % (Auto) Eos % (Auto) Baso % (Auto) Lymph # (Auto) [place] # (Auto) Eos # (Auto) Baso # (Auto) Abs Immat Gran (auto) Absolute Neuts (auto) Absolute Nucleated RBC Nucleated RBC % (auto) VBG pH VBG pCO2 VBG pO2 VBG HCO3 VBG O2 Saturation VBG Base Excess Sodium Potassium Chloride Carbon Dioxide Anion Gap BUN Creatinine Estim Creat Clear Calc Estimated GFR POC Glucose 123 H 164 H 238 H Random Glucose Lactic Acid Calcium Magnesium Total Bilirubin AST ALT Alkaline Phosphatase Total Protein Albumin Lipase Urine Color Urine Appearance Urine pH Ur Specific [place] Urine Protein Urine Glucose (UA) Urine Ketones Urine Blood Urine Nitrite Ur Leukocyte Esterase Urine RBC Urine WBC Ur Squamous Epith Cells Urine Bacteria Hyaline Casts 11/03/24 11/04/24 11/04/24 16:03 06:47 09:52 WBC RBC Hgb Hct MCV MCH MCHC RDW Plt Count MPV Immature Gran % (Auto) Neut % (Auto) Lymph % (Auto) [place] % (Auto) Eos % (Auto) Baso % (Auto) Lymph # (Auto) [place] # (Auto) Eos # (Auto) Baso # (Auto) Abs Immat Gran (auto) Absolute Neuts (auto) Absolute Nucleated RBC Nucleated RBC % (auto) VBG pH VBG pCO2 VBG pO2 VBG HCO3 VBG O2 Saturation VBG Base Excess Sodium 134 L Potassium 5.5 H Chloride 102 Carbon Dioxide 22 Anion Gap 16 BUN 35 H Creatinine 1.15 Estim Creat Clear Calc 29.2 Estimated GFR 46 POC Glucose 185 H 148 H Random Glucose 232 H Lactic Acid Calcium 9.1 Magnesium Total Bilirubin 0.3 AST 25 ALT 25 Alkaline Phosphatase 67 Total Protein 6.9 Albumin 4.2 Lipase Urine Color Urine Appearance Urine pH Ur Specific [place] Urine Protein Urine Glucose (UA) Urine Ketones Urine Blood Urine Nitrite Ur Leukocyte Esterase Urine RBC Urine WBC Ur Squamous Epith Cells Urine Bacteria Hyaline Casts Medications Medications Current Medications Acetaminophen (Acetaminophen 325 Mg Tablet) 650 mg PO Q6H PRN PRN Reason: Headache/Pain, Scale 1-10 Last Admin: 11/04/24 06:40 Dose: 650 mg Al Hydroxide/Mg Hydroxide (Magnesium Hydrox/Alum Hydrox 30 Ml Oral.Susp) 30 ml PO Q6H PRN PRN Reason: Heartburn/Nausea Last Admin: 11/01/24 18:57 Dose: 30 ml Albuterol Sulfate (Albuterol Sulfate 90 Mcg 8 Gm Inhaler) 2 puff INHALE Q4H PRN PRN Reason: Shortness Of Breath Or Wheezin Amlodipine Besylate (Amlodipine Besylate 2.5 Mg Tablet) 2.5 mg PO DAILY [facility]; Protocol Last Admin: 11/04/24 09:25 Dose: 2.5 mg Atorvastatin Calcium (Atorvastatin Calcium 20 Mg Tablet) 20 mg PO DAILY [facility] Last Admin: 11/04/24 09:24 Dose: 20 mg Bisacodyl (Bisacodyl 10 Mg Supp.Rect) 10 mg NV BEDTIME PRN PRN Reason: Constipation Last Admin: 11/03/24 18:05 Dose: 10 mg Carbamazepine (Carbamazepine 200 Mg Tablet) 200 mg PO BID [facility] Last Admin: 11/04/24 09:25 Dose: 200 mg Clonazepam (Clonazepam 0.5 Mg Tablet) 0.5 mg PO BID [facility] Last Admin: 11/04/24 09:24 Dose: 0.5 mg Dicyclomine HCl (Dicyclomine Hcl 10 Mg Capsule) 10 mg PO Q4H PRN On Hold: 11/02/24 22:41 PRN Reason: abdominal cramping Last Admin: 11/02/24 21:17 Dose: 10 mg Docusate Sodium (Docusate Sodium 100 Mg Capsule) 100 mg PO BID [facility] Last Admin: 11/04/24 09:25 Dose: 100 mg Duloxetine HCl (Duloxetine Hcl 60 Mg Capsule.Dr) 60 mg PO DAILY [facility] Last Admin: 11/04/24 09:24 Dose: 60 mg Fluticasone/Vilanterol (Fluticasone/Vilanterol 100/25 Blst.W.Dev) 1 puff INHALE RDAILY [facility] Last Admin: 11/04/24 09:24 Dose: 1 puff Gabapentin (Gabapentin 100 Mg Capsule) 100 mg PO TID [facility] Last Admin: 11/04/24 09:24 Dose: 100 mg Glipizide (Glipizide Xl 2.5 Mg Tab.Er.24) 2.5 mg PO DAILY [facility] Last Admin: 11/04/24 09:25 Dose: 2.5 mg Insulin Human Lispro (Insulin Lispro 100 Unit/Ml 3 Ml Vial) 0 unit SUBCUT TIDAC [facility]; Protocol Last Admin: 11/04/24 09:23 Dose: Not Given Lisinopril (Lisinopril 20 Mg Tablet) 20 mg PO DAILY [facility]; Protocol On Hold: 10/30/24 16:25 Comment: renal function Last Admin: 10/30/24 08:02 Dose: 20 mg Magnesium Hydroxide (Milk Of Magnesia 30 Ml Oral.Susp) 30 ml PO DAILY PRN PRN Reason: Constipation Last Admin: 11/03/24 22:37 Dose: 30 ml Mirtazapine (Mirtazapine 30 Mg Tablet) 30 mg PO BEDTIME [facility] Last Admin: 11/03/24 19:55 Dose: 30 mg Omeprazole (Omeprazole 20 Mg Capsule.Dr) 20 mg PO BID@0630,1630 [facility] Last Admin: 11/04/24 06:37 Dose: 20 mg Ondansetron HCl (Ondansetron Odt 4 Mg Tab.Rapdis) 4 mg TRANSLINGU Q4H PRN PRN Reason: Nausea and Vomiting Last Admin: 11/02/24 21:18 Dose: 4 mg Polyethylene Glycol (Polyethylene Glycol 3350 17 Gm Powd.Pack) 17 gm PO DAILY [facility] Last Admin: 11/04/24 09:24 Dose: 17 gm Psyllium Hydrophilic Mucilloid (Psyllium Seed 3.7 Gm Packet) 3.7 gm PO DAILY [facility] Last Admin: 11/04/24 09:24 Dose: 3.7 gm Senna (Sennosides 8.6 Mg Tablet) 17.2 mg PO BEDTIME [facility] Last Admin: 11/03/24 19:56 Dose: 17.2 mg Simethicone (Simethicone 80 Mg Tab.Chew) 80 mg PO QIDWMHS [facility] Last Admin: 11/04/24 09:24 Dose: 80 mg Sitagliptin Phosphate (Sitagliptin Phosphate 25 Mg Tablet) 25 mg PO DAILY [facility] Last Admin: 11/04/24 09:24 Dose: 25 mg Trazodone HCl (Trazodone Hcl 50 Mg Tablet) 50 mg PO BEDTIME MRX1 PRN PRN Reason: Insomnia Last Admin: 11/03/24 20:46 Dose: 50 mg Allergies Allergies Allergy/AdvReac Type Severity Reaction Status Date / Time ampicillin Allergy Rash Verified 10/20/24 19:28 morphine Allergy Rash Verified 10/20/24 19:28 Penicillins Allergy Rash Verified 10/20/24 19:28 Assessment & Plan Assessment & Plan (1) MDD (major depressive disorder), recurrent episode, moderate: Status: Acute Code(s): F33.1 - Major depressive disorder, recurrent, moderate (2) Gastroparesis: Status: Acute Code(s): K31.84 - Gastroparesis (3) Anxiety: Status: Acute Code(s): F41.9 - Anxiety disorder, unspecified (4) RLS (restless legs syndrome): Status: Acute Code(s): G25.81 - Restless legs syndrome Plan 10/25/2024: Change Ativan and propranolol to twice daily with hold parameters in place for sedation and blood pressure respectively 10/26: Lower gabapentin from 200 mg 3 times per day to 100 mg 3 times per day 10/27: bentyl and reglan for abdo discomfort and nausea. 10/28 d/c reglan as it may exacerbate Akathisia/RLS. increase cymbalta to 60mg po daily. continue remeron. 10/29 switch ativan to clonazepam, continue gabapentin at current dose, increase in restlessness and anxiety. restart lamictal 50mg po qhs- although therapeutic benefit of medication is unclear. avoid polypharmacy as pt may tend to ask for several interventions. 10/30 continue tx. 10/31 continue tx. 11/01 pt continues to present as dysphoric, low frustration tolerance. signed 3 day. d/c lamictal, will try carbamazepine for mood stabilization. CAUTION with antipsychotic as may exacerbate rls/ akathisia. 11/02/24: Not sleeping well lats night d/t stomach pain. Hospitalist consult sent. Hyperfocus on stomach pain. No bowel movement for 4 days No SI/SIB/HI/AVH. Compliant with meds. No side effects. 11/03/24: Poor sleep, feeling better on stomach, seen by hospitalist and have abdominal scan yesterday, started treatment with laxative and breathing treatment. Less anxious, medication compliant. Patient to report if she has loose stool. Reports have small stools/BM today,. See hospitalist note for more details 11/04 continue tx. Per hospitalist over the weekend recommend following: OP referrals to cardiology for echo (r/o pericardial effusion), referral to [facility] for fribroid, GI follow up at [facility]. Appears less dysphoric. continue current medication. Reason for continued inpatient stay Substantial Risk for: inability to function Time Spent With Patient Time: Total time managing care of this patient today ____ minutes.
[2024-11-04 11:24] LABS: Glucose, Whole Blood 178 mg/dL (60-115)
[2024-11-04 12:30] VITALS: BP 131/62; PULSE 88
[2024-11-04 12:33] VITALS: BP 156/72; PULSE 93
--- NOTE | 2024-11-04 13:14 | PC.NURSE ---
Pt c/o being dizzy . Orthostatics taken and BP increased upon rising. See VS for additional information.
[2024-11-04 16:33] LABS: Glucose, Whole Blood 139 mg/dL (60-115)
[2024-11-04] MEDS: Milk of Magnesia 30 ML ORAL.SUSP PO (16:49)
[2024-11-04 16:56] LABS: Glucose, Whole Blood 192 mg/dL (60-115)
--- NOTE | 2024-11-04 17:05 | PM.EVENT ---
Event Note Date of Service: 11/04/24 Event Note: At approximately 04:45 rapid response called to [facility] secondary to fall. Upon arrival patient was found in the dining room sitting on the floor, she had some blood on her face and a tech holding pressure with gauze to her left forehead. Patient was noted to have a gash. Apparently patient did fall and hit her head. During the interview patient was alert, awake, asking for help. She was able to stand and get on the stretcher. No loss of consciousness was noted. Patient apparently has been walking around with a blanket and had a mechanical fall on the blanket. Alert and oriented Lungs normal expansion Left forehead gash Ambulating to a stretcher Plan Head and neck CT due to fall with injury ED provider to place stitches or glue Avoid patient ambulating with blankets Follow up with patient in the a.m. Time Spent With Patient Time: Total time managing care of this patient today ____ minutes.
--- NOTE | 2024-11-04 17:08 | W.ED.CONS.HO ---
Consult Details Consult Details: Patient is a 78 year old assigned female at with a history of MDD, DM, anxiety, and RLS currently admitted to [facility] presenting to the emergency department today with a forehead laceration after a fall. Patient states that she fell and lacerated her forehead. Consulted for head laceration. Recommend CT of the head and c-spine of which the hospitalist team will follow up on results. Laceration repaired with dermabond, without incident, per procedure note. Patient should not get the effected area wet for at least 7 days to preserve the skin adhesive. Wound well approximated. Picture of wound below. Procedures Laceration Laceration 1: Site: face Size (cm): 1 Description: irregular Depth: simple, single layer Pre-repair: deep structures intact Skin layer closed with: other (dermabond) Size (cm): other (dermabond) Technique: other (dermabond)
--- NOTE | 2024-11-04 18:16 | P.EN_ITS ---
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
--- NOTE | 2024-11-04 19:00 | PC.NURSE ---
Addendum entered by Marianne Camacho RN 11/05/24 10:33: After rapid response was called, the first staff on the unit were Dr. Isaiah Odell and Sharon Dawkins NP. This proposal manager writer was greeted by Dr. Odell, by him saying: Why weren't you watching her? as he looked proposal manager writer up and down. After patient was on the stretcher, before she was taken off the floor in order to go to CT scan, this proposal manager writer asked Sharon Dawkins if it would be in the patient's best interest to transfer the patient to a medical unit for the night, in order to be able to be assessed more closely neurologically, through the night. At that point Sharon Dawkins stated: let's wait and see the results of the CT scan . This proposal manager writer stated ok . Pt was then brought back onto the unit by Geri Kathleen, clinical mixing supervisor after CT was completed. This proposal manager writer stated concern to Geri about pt not being transferred to medical unit, for closer observation over night. Geri then said out loud I think there is space up there right now, and I see what you are saying. This wrter then took the stretcher & patient, and placed her in front of the nurses station for closer observation. While this proposal manager writer was doing this and assessing the patient, Geri went into the back room and called Dr. Odell and Sharon Dawkins NP. She spoke to them for some amount of time, and then this proposal manager writer was called back to speak on the phone as well. When this proposal manager writer got on the phone, they were all on speaker phone on the other end. However, Sharon was the main person speaking. She started off by saying that she didn't understand why this proposal manager writer was continuing to ask about this issue when it had already been discussed . She had an extremely condescending and demeaning tone throughout the conversation. She stated that this proposal manager writer is asking nonsensical questions and the conversation was unnecessary . This proposal manager writer had stated concern about an acute issue not showing up right away on the initial CT scan and there being a problem in the middle of the night. After Sharon continued with her condescending and demeaning tone this proposal manager writer eventually asked her why she was speaking in that tone. I don't understand what is even going on here. I am advocating for my patient and shouldn't be spoken to in this manner. If you feel that I need some education about this instance, I am happy to listen the conversation then ended very shortly after that was said. This proposal manager writer also spoke to patient's son, He. She reported the fall and the CT results to him and answered any questions he had. Original Note: Pt had finished eating dinner and moved over to another chair. She was sitting and waiting for this proposal manager writer to finish her medication administration. Pt had blanket over her shoulders and stood up, the blanket dropped down. Pt stepped on the blanket and fell. She hit her head on the floor and the wound (which is on the left front forehead area), started bleeding. Pt sat herself up quickly, rapid response was called, and staff arrived quickly. Pt currently off unit receiving CT. CT's both negative, no acute findings.
[2024-11-04 19:03] VITALS: BP 150/94; PULSE 104; RESP 18; TEMP 36.8; O2SAT 97
[2024-11-04 19:53] VITALS: BP 114/78; PULSE 89; RESP 16; TEMP 36.6; O2SAT 99
[2024-11-04 21:30] LABS: Glucose, Whole Blood 199 mg/dL (60-115)
[2024-11-05 06:35] LABS: Glucose, Whole Blood 155 mg/dL (60-115)
[2024-11-05 08:00] VITALS: BP 157/65; PULSE 85; RESP 18; TEMP 36.6; O2SAT 99
[2024-11-05] MEDS: Fluticasone/Vilanterol 100/25 BLST.W.DEV 1 PUFF INHALE (08:33)
[2024-11-05] MEDS: Psyllium seed 3.7 GM PACKET PO (08:33)
--- NOTE | 2024-11-05 10:31 | HO.PM.IMPN ---
Subjective Subjective Date of Service: 11/05/24 Interval History: 78-year-old female with a history of hypertension, hyperlipidemia, type 2 diabetes, history of gastritis and gastroparesis. Patient is admitted to the geripsych unit with anxiety and suicidal ideation with plans to overdose on medications. At approximately 04:45 11/04/2024 a rapid response called to [facility] secondary to fall. Patient was found in the dining room sitting on the floor, she sustained a mechanical fall during which she sustained a 1 cm laceration to her head. She was evaluated in ED and Dermabond was applied to laceration. On exam the area is clean and dry, no bleeding noted. 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 On exam she is awake and alert, ambulating at baseline. Patient does report some pain in her left hip. Examined area no bruising noted. X-ray of left hip and pelvis negative for any fracture or dislocation. Her cranial nerves are intact, denies any dizziness, lightheadedness, double vision or any other concerning symptoms. Her blood pressure is stable. Review of Systems Denies any shortness of breath, chest pain, dizziness, lightheadedness, abdominal pain or discomfort, nausea vomiting or diarrhea Physical Exam Vital Signs: Vital Signs: Last Vital Signs Temp 97.9 F 11/05/24 08:00 Pulse 85 11/05/24 08:00 Resp 18 11/05/24 08:00 BP 157/65 H 11/05/24 08:00 Pulse Ox 99 11/05/24 08:00 O2 Del Method Room Air 11/05/24 08:00 BMI result Body Mass Index 22.9 CONST: Alert and oriented, in NAD. Well nourished HEENT: Normocephalic, atraumatic, MMM, Eyes clear, Neck supple RESP: Lungs clear, RRR even and regular HEART:,RRR, S1, S2. No murmur, no edema GI:Abdomen Soft NT, ND. + BS times four :Deferred SKIN: Warm dry and intact, no visible lesions or rashes. 1 cm well-approximated laceration to forehead with no active bleeding. NEURO:CN II-XII Intact bilaterally, Sensation intact. Speech clear PSYCH: Normal affect Objective Data Active Medications Acetaminophen (Acetaminophen 325 Mg Tablet) 650 mg PO Q6H PRN PRN Reason: Headache/Pain, Scale 1-10 Last Admin: 11/04/24 17:57 Dose: 650 mg Documented By: COLUMBA Al Hydroxide/Mg Hydroxide (Magnesium Hydrox/Alum Hydrox 30 Ml Oral.Susp) 30 ml PO Q6H PRN PRN Reason: Heartburn/Nausea Last Admin: 11/01/24 18:57 Dose: 30 ml Documented By: RUTH Albuterol Sulfate (Albuterol Sulfate 90 Mcg 8 Gm Inhaler) 2 puff INHALE Q4H PRN PRN Reason: Shortness Of Breath Or Wheezin Amlodipine Besylate (Amlodipine Besylate 2.5 Mg Tablet) 2.5 mg PO DAILY [facility], [facility]; Protocol Last Admin: 11/05/24 08:33 Dose: 2.5 mg Documented By: BEBETO Atorvastatin Calcium (Atorvastatin Calcium 20 Mg Tablet) 20 mg PO DAILY [facility], [facility] Last Admin: 11/05/24 08:33 Dose: 20 mg Documented By: BEBETO Bisacodyl (Bisacodyl 10 Mg Supp.Rect) 10 mg [place] BEDTIME PRN PRN Reason: Constipation Last Admin: 11/04/24 20:37 Dose: 10 mg Documented By: BRAULIO Carbamazepine (Carbamazepine 200 Mg Tablet) 200 mg PO BID [facility], [facility]1983 Last Admin: 11/05/24 08:33 Dose: 200 mg Documented By: BEBETO Clonazepam (Clonazepam 0.5 Mg Tablet) 0.5 mg PO BID [facility], [facility] Last Admin: 11/05/24 08:33 Dose: 0.5 mg Documented By: BEBETO Dicyclomine HCl (Dicyclomine Hcl 10 Mg Capsule) 10 mg PO Q4H PRN On Hold: 11/02/24 22:41 PRN Reason: abdominal cramping Last Admin: 11/02/24 21:17 Dose: 10 mg Documented By: EVERSOHeather Docusate Sodium (Docusate Sodium 100 Mg Capsule) 100 mg PO BID [facility] Last Admin: 11/05/24 08:34 Dose: 100 mg Documented By: BEBETO Duloxetine HCl (Duloxetine Hcl 60 Mg Capsule.Dr) 60 mg PO DAILY [facility] Last Admin: 11/05/24 08:33 Dose: 60 mg Documented By: BEBETO Fluticasone/Vilanterol (Fluticasone/Vilanterol 100/25 Blst.W.Dev) 1 puff INHALE RDAILY [facility] Last Admin: 11/05/24 08:33 Dose: 1 puff Documented By: BEBETO Gabapentin (Gabapentin 100 Mg Capsule) 100 mg PO TID [facility] Last Admin: 11/05/24 08:33 Dose: 100 mg Documented By: BEBETO Glipizide (Glipizide Xl 2.5 Mg Tab.Er.24) 2.5 mg PO DAILY [facility] Last Admin: 11/05/24 08:33 Dose: 2.5 mg Documented By: BEBETO Insulin Human Lispro (Insulin Lispro 100 Unit/Ml 3 Ml Vial) 0 unit SUBCUT TIDAC [facility], [facility]; Protocol Last Admin: 11/05/24 07:41 Dose: 2 unit Documented By: BEBETO Magnesium Hydroxide (Milk Of Magnesia 30 Ml Oral.Susp) 30 ml PO DAILY PRN PRN Reason: Constipation Last Admin: 11/04/24 16:49 Dose: 30 ml Documented By: RUTH Mirtazapine (Mirtazapine 30 Mg Tablet) 30 mg PO BEDTIME [facility] Last Admin: 11/04/24 19:55 Dose: 30 mg Documented By: BRAULIO Omeprazole (Omeprazole 20 Mg Capsule.Dr) 20 mg PO BID@0630,1630 [facility] Last Admin: 11/05/24 05:47 Dose: 20 mg Documented By: BRAULIO Ondansetron HCl (Ondansetron Odt 4 Mg Tab.Rapdis) 4 mg TRANSLINGU Q4H PRN PRN Reason: Nausea and Vomiting Last Admin: 11/04/24 11:33 Dose: 4 mg Documented By: RUTH Polyethylene Glycol (Polyethylene Glycol 3350 17 Gm Powd.Pack) 17 gm PO DAILY [facility] Last Admin: 11/05/24 08:33 Dose: 17 gm Documented By: BEBETO Psyllium Hydrophilic Mucilloid (Psyllium Seed 3.7 Gm Packet) 3.7 gm PO DAILY [facility] Last Admin: 11/05/24 08:33 Dose: 3.7 gm Documented By: BEBETO Senna (Sennosides 8.6 Mg Tablet) 17.2 mg PO BEDTIME [facility] Last Admin: 11/04/24 19:55 Dose: 17.2 mg Documented By: BRAULIO Simethicone (Simethicone 80 Mg Tab.Chew) 80 mg PO QIDWMHS [facility] Last Admin: 11/05/24 08:33 Dose: 80 mg Documented By: BEBETO Sitagliptin Phosphate (Sitagliptin Phosphate 25 Mg Tablet) 25 mg PO DAILY [facility] Last Admin: 11/05/24 08:33 Dose: 25 mg Documented By: BEBETO Trazodone HCl (Trazodone Hcl 50 Mg Tablet) 50 mg PO BEDTIME MRX1 PRN PRN Reason: Insomnia Last Admin: 11/03/24 20:46 Dose: 50 mg Documented By: AUMAG Labs 11/02/24 20:14 11/04/24 09:52 Labs: Laboratory Results - last 24 hr 11/04/24 11/04/24 11/04/24 09:52 11:20 16:30 Anion Gap 16 Estim Creat Clear Calc 29.2 Estimated GFR 46 POC Glucose 178 H 139 H Random Glucose 232 H Calcium 9.1 Total Bilirubin 0.3 AST 25 ALT 25 Alkaline Phosphatase 67 Total Protein 6.9 Albumin 4.2 11/04/24 11/04/24 11/05/24 16:53 21:12 06:28 Anion Gap Estim Creat Clear Calc Estimated GFR POC Glucose 192 H 199 H 155 H Random Glucose Calcium Total Bilirubin AST ALT Alkaline Phosphatase Total Protein Albumin Microbiology Microbiology Results: Microbiology 11/02/24 20:20 Urine Culture - Final Urine clean catch - Clean Catch Midstream Assessment and Plan (1) Forehead laceration: Status: Acute Plan Fall with head laceration Wound repaired in the ED with Dermabond CT head and neck negative for any fracture Left hip and pelvis negative for any fracture or dislocation. Tylenol as needed for pain Continue to monitor and assist neuros, update provider with any changes. Anxiety with suicidal ideation Plan per Psychiatry Chronic abdominal plain/gastroparesis, chronic mild gastritis, history of diverticulosis Patient is at [facility], she has had Botox injections in the past last in March 2024 Patient had a recent upper endoscopy negative for H pylori or any abnormalities Continues on duloxetine, may help with chronic pain. Continues with omeprazole twice daily Avoid constipation. Avoid opiates and anticholinergics Restless leg syndrome Patient continues on gabapentin and Mirapex twice daily Hypertension/hyperlipidemia Continue atorvastatin, lisinopril, and amlodipine Blood pressure stable Type 2 diabetes Continue with glipizide and Januvia Recent A1c 7.2, acceptable range for her age. We will add sliding scale insulin to improve glucose control, to help with symptoms of gastroparesis Thank you for allowing me to participate in the care of this patient. Will follow as needed. Please reconsult of any acute concerns or issues arise Quality Stroke Does the patient have a stroke diagnosis?: No VTE Prior VTE?: No VTE Risk Level:: Medical - low VTE Device Contraindication: Treatment Not Indicated VTE Drug Contraindication: Treatment Not Indicated
[2024-11-05 11:18] LABS: Glucose, Whole Blood 145 mg/dL (60-115)
--- NOTE | 2024-11-05 16:05 | HO.PSYCHPN ---
Subjective Subjective Date of Service: 11/05/24 Reason For Visit: SI with plan to OD on medications, increased anxie Subjective Notes: Conditional Voluntary Interim History: Pt felt last evening, was holding blanket and got entangled with it and felt. She hit her head, had head CT. She was on neuro checks. No change in mentation, no LOC. She reports feeling unsteady on her feet as well. No ortho BP. clonazepam has been discontinued. continue to monitor gait. She presents as less dysphoric but is also somatically preoccupied. She denied nausea, vomiting. Review of Systems Review of Systems Denies any shortness of breath, chest pain, dizziness, lightheadedness, +abdominal discomfort and cramps. , + nausea, no vomiting or diarrhea Yes all other systems are reviewed and are negative Mental Status Exam Mental Status Exam Narrative: Appearance: wearing hospital gown, fair hygiene, movement of lower extremities noted. Behavior: cooperative Psychomotor: constant movement of lower extremities Speech: clear, normal rate/rhythm/volume, spontaneous TP: linear TC: distressed by nausea Mood: i am better ,anxious Affect: congruent SI: denies HI: none VH/AH: none Delusions: none Memory/cog: alert, oriented x 1. MOCA on 10/24/2024 10, ACL 4.4 Diagnostics Vital Signs (24Hr): Vital Signs - 24 hr 11/04/24 19:03 11/04/24 19:53 11/05/24 08:00 Temperature 98.2 F 97.9 F 97.9 F Pulse Rate 104 H 89 85 Respiratory Rate 18 16 18 Blood Pressure 150/94 H 114/78 157/65 H Pulse Oximetry 97 99 99 Oxygen Delivery Method Room Air Room Air BMI result Body Mass Index 22.9 Labs 11/02/24 20:14 11/04/24 09:52 Labs: Laboratory Results - last 48 hr 11/03/24 11/04/24 11/04/24 16:03 06:47 09:52 Sodium 134 L Potassium 5.5 H Chloride 102 Carbon Dioxide 22 Anion Gap 16 BUN 35 H Creatinine 1.15 Estim Creat Clear Calc 29.2 Estimated GFR 46 POC Glucose 185 H 148 H Random Glucose 232 H Calcium 9.1 Total Bilirubin 0.3 AST 25 ALT 25 Alkaline Phosphatase 67 Total Protein 6.9 Albumin 4.2 11/04/24 11/04/2425 11:20 16:30 16:53 Sodium Potassium Chloride Carbon Dioxide Anion Gap BUN Creatinine Estim Creat Clear Calc Estimated GFR POC Glucose 178 H 139 H 192 H Random Glucose Calcium Total Bilirubin AST ALT Alkaline Phosphatase Total Protein Albumin 11/04/24 11/05/24 11/05/24 21:12 06:28 11:14 Sodium Potassium Chloride Carbon Dioxide Anion Gap BUN Creatinine Estim Creat Clear Calc Estimated GFR POC Glucose 199 H 155 H 145 H Random Glucose Calcium Total Bilirubin AST ALT Alkaline Phosphatase Total Protein Albumin Imaging Radiology Impressions: ITS Impressions Hip/Pelvis X-Ray 11/05/24 11:00 IMPRESSION: Unremarkable examination of the left hip. Electronically signed by: Sam Saini MD 11/05/2024 11:13 AM EDT RP Medications Medications Current Medications Acetaminophen (Acetaminophen 325 Mg Tablet) 650 mg PO Q6H PRN PRN Reason: Headache/Pain, Scale 1-10 Last Admin: 11/04/24 17:57 Dose: 650 mg Al Hydroxide/Mg Hydroxide (Magnesium Hydrox/Alum Hydrox 30 Ml Oral.Susp) 30 ml PO Q6H PRN PRN Reason: Heartburn/Nausea Last Admin: 11/01/24 18:57 Dose: 30 ml Albuterol Sulfate (Albuterol Sulfate 90 Mcg 8 Gm Inhaler) 2 puff INHALE Q4H PRN PRN Reason: Shortness Of Breath Or Wheezin Amlodipine Besylate (Amlodipine Besylate 2.5 Mg Tablet) 2.5 mg PO DAILY [facility]; Protocol Last Admin: 11/05/24 08:33 Dose: 2.5 mg Atorvastatin Calcium (Atorvastatin Calcium 20 Mg Tablet) 20 mg PO DAILY [facility] Last Admin: 11/05/24 08:33 Dose: 20 mg Bisacodyl (Bisacodyl 10 Mg Supp.Rect) 10 mg [place] BEDTIME PRN PRN Reason: Constipation Last Admin: 11/04/24 20:37 Dose: 10 mg Carbamazepine (Carbamazepine 200 Mg Tablet) 200 mg PO BID [facility] Last Admin: 11/05/24 08:33 Dose: 200 mg Dicyclomine HCl (Dicyclomine Hcl 10 Mg Capsule) 10 mg PO Q4H PRN On Hold: 11/02/24 22:41 PRN Reason: abdominal cramping Last Admin: 11/02/24 21:17 Dose: 10 mg Docusate Sodium (Docusate Sodium 100 Mg Capsule) 100 mg PO BID [facility] Last Admin: 11/05/24 08:34 Dose: 100 mg Duloxetine HCl (Duloxetine Hcl 60 Mg Capsule.Dr) 60 mg PO DAILY [facility] Last Admin: 11/05/24 08:33 Dose: 60 mg Fluticasone/Vilanterol (Fluticasone/Vilanterol 100/25 Blst.W.Dev) 1 puff INHALE RDAILY [facility] Last Admin: 11/05/24 08:33 Dose: 1 puff Gabapentin (Gabapentin 100 Mg Capsule) 100 mg PO TID [facility] Last Admin: 11/05/24 14:21 Dose: 100 mg Glipizide (Glipizide Xl 2.5 Mg Tab.Er.24) 2.5 mg PO DAILY [facility] Last Admin: 11/05/24 08:33 Dose: 2.5 mg Insulin Human Lispro (Insulin Lispro 100 Unit/Ml 3 Ml Vial) 0 unit SUBCUT TIDAC [facility]; Protocol Last Admin: 11/05/24 11:17 Dose: Not Given Magnesium Hydroxide (Milk Of Magnesia 30 Ml Oral.Susp) 30 ml PO DAILY PRN PRN Reason: Constipation Last Admin: 11/04/24 16:49 Dose: 30 ml Mirtazapine (Mirtazapine 30 Mg Tablet) 30 mg PO BEDTIME [facility] Last Admin: 11/04/24 19:55 Dose: 30 mg Omeprazole (Omeprazole 20 Mg Capsule.Dr) 20 mg PO BID@0630,1630 [facility] Last Admin: 11/05/24 16:00 Dose: 20 mg Ondansetron HCl (Ondansetron Odt 4 Mg Tab.Rapdis) 4 mg TRANSLINGU Q4H PRN PRN Reason: Nausea and Vomiting Last Admin: 11/05/24 11:27 Dose: 4 mg Polyethylene Glycol (Polyethylene Glycol 3350 17 Gm Powd.Pack) 17 gm PO DAILY [facility] Last Admin: 11/05/24 08:33 Dose: 17 gm Psyllium Hydrophilic Mucilloid (Psyllium Seed 3.7 Gm Packet) 3.7 gm PO DAILY [facility] Last Admin: 11/05/24 08:33 Dose: 3.7 gm Senna (Sennosides 8.6 Mg Tablet) 17.2 mg PO BEDTIME [facility] Last Admin: 11/04/24 19:55 Dose: 17.2 mg Simethicone (Simethicone 80 Mg Tab.Chew) 80 mg PO QIDWMHS [facility] Last Admin: 11/05/24 11:27 Dose: 80 mg Sitagliptin Phosphate (Sitagliptin Phosphate 25 Mg Tablet) 25 mg PO DAILY [facility] Last Admin: 11/05/24 08:33 Dose: 25 mg Trazodone HCl (Trazodone Hcl 50 Mg Tablet) 50 mg PO BEDTIME MRX1 PRN PRN Reason: Insomnia Last Admin: 11/03/24 20:46 Dose: 50 mg Allergies Allergies Allergy/AdvReac Type Severity Reaction Status Date / Time ampicillin Allergy Rash Verified 10/20/24 19:28 morphine Allergy Rash Verified 10/20/24 19:28 Penicillins Allergy Rash Verified 10/20/24 19:28 Assessment & Plan Assessment & Plan (1) MDD (major depressive disorder), recurrent episode, moderate: Status: Acute Code(s): F33.1 - Major depressive disorder, recurrent, moderate (2) Gastroparesis: Status: Acute Code(s): K31.84 - Gastroparesis (3) Anxiety: Status: Acute Code(s): F41.9 - Anxiety disorder, unspecified (4) RLS (restless legs syndrome): Status: Acute Code(s): G25.81 - Restless legs syndrome Plan 10/25/2024: Change Ativan and propranolol to twice daily with hold parameters in place for sedation and blood pressure respectively 10/26: Lower gabapentin from 200 mg 3 times per day to 100 mg 3 times per day 10/27: bentyl and reglan for abdo discomfort and nausea. 10/28 d/c reglan as it may exacerbate Akathisia/RLS. increase cymbalta to 60mg po daily. continue remeron. 10/29 switch ativan to clonazepam, continue gabapentin at current dose, increase in restlessness and anxiety. restart lamictal 50mg po qhs- although therapeutic benefit of medication is unclear. avoid polypharmacy as pt may tend to ask for several interventions. 10/30 continue tx. 10/31 continue tx. 11/01 pt continues to present as dysphoric, low frustration tolerance. signed 3 day. d/c lamictal, will try carbamazepine for mood stabilization. CAUTION with antipsychotic as may exacerbate rls/ akathisia. 11/02/24: Not sleeping well lats night d/t stomach pain. Hospitalist consult sent. Hyperfocus on stomach pain. No bowel movement for 4 days No SI/SIB/HI/AVH. Compliant with meds. No side effects. 11/03/24: Poor sleep, feeling better on stomach, seen by hospitalist and have abdominal scan yesterday, started treatment with laxative and breathing treatment. Less anxious, medication compliant. Patient to report if she has loose stool. Reports have small stools/BM today,. See hospitalist note for more details 11/04 continue tx. Per hospitalist over the weekend recommend following: OP referrals to cardiology for echo (r/o pericardial effusion), referral to [facility] for fibroid, GI follow up at [facility]. Appears less dysphoric. continue current medication. 11/05 continue tx. clonazepam dc/ed. Reason for continued inpatient stay Substantial Risk for: inability to function Time Spent With Patient Time: Total time managing care of this patient today ____ minutes.
[2024-11-05 16:14] LABS: Glucose, Whole Blood 145 mg/dL (60-115)
[2024-11-05 20:47] VITALS: BP 177/84; PULSE 85; RESP 16; TEMP 36; O2SAT 94
[2024-11-05 20:57] LABS: Glucose, Whole Blood 205 mg/dL (60-115)
[2024-11-06 06:34] LABS: Glucose, Whole Blood 186 mg/dL (60-115)
[2024-11-06 08:00] VITALS: BP 165/70; PULSE 90; RESP 16; TEMP 36.3; O2SAT 94
[2024-11-06] MEDS: Fluticasone/Vilanterol 100/25 BLST.W.DEV 1 PUFF INHALE (10:22)
--- NOTE | 2024-11-06 10:43 | HO.PM.IMCN ---
History of Present Illness Data of Consult Service Date: 11/06/24 Primary Care Provider: Unknown Physician HPI Reason for consult: Severe constipation 78-year-old female with a history of hypertension, hyperlipidemia, type 2 diabetes, history of gastritis and gastroparesis. Patient is admitted to the geripsych unit with anxiety and suicidal ideation with plans to overdose on medications. Patient is being seen for constpation and follow up fall. Reports nausea, no vomiting. Reports that she did not eat much this morning. Patient had CT scan that demonstrated large amount of stool in Colon on Monday. She received some bowel medications with no results per nursing. She has received Miralax and Colace this morning, suppository over the weekend with no results. Patients Bentyl is on hold. KUB this morning demonstrates a large amount of stool throughout the colon. Review of Systems Review of Systems: Denies any shortness of breath, chest pain, dizziness, lightheadedness, +abdominal discomfort and cramps. , + nausea, no vomiting or diarrhea PMF Medical History (Updated 11/06/24 @ 11:22 by Martina Muse DNP) Migraines Diabetes Hypertension Anxiety Social History Household Members: None Housing: House Do you presently have visiting nurse or other home services: Yes Patient Tobacco Use Status: Never used Tobacco Currently Displaying Signs/Symptoms of Drug Intoxication Withdrawal: No Have you been hit, kicked, punched, or otherwise hurt by someone within the past year? If so, by whom?: No Do you feel safe in your current relationship?: No Current Relationship Is there a partner from a previous relationship who is making you feel unsafe now?: No Are you made to feel afraid or neglected: No Spiritual Healthcare Practices: meditation and breathing Advance Directives: No Advance Directives Information Provided: No Do you have thoughts of harming others: None Do you have a plan to hurt others: No Plan Recently lost weight without trying: No Eating poorly because of decreased appetite: No Nutrition Risks: No Nutritional Risk Patient : No : No Poor oral hygiene: No service: No Sexual orientation: Straight/Heterosexual Meds Allergies Allergy/AdvReac Type Severity Reaction Status Date / Time ampicillin Allergy Rash Verified 10/20/24 19:28 morphine Allergy Rash Verified 10/20/24 19:28 Penicillins Allergy Rash Verified 10/20/24 19:28 Active Medications: Current Medications Acetaminophen (Acetaminophen 325 Mg Tablet) 650 mg PO Q6H PRN PRN Reason: Headache/Pain, Scale 1-10 Last Admin: 11/06/24 10:20 Dose: 650 mg Al Hydroxide/Mg Hydroxide (Magnesium Hydrox/Alum Hydrox 30 Ml Oral.Susp) 30 ml PO Q6H PRN PRN Reason: Heartburn/Nausea Last Admin: 11/01/24 18:57 Dose: 30 ml Albuterol Sulfate (Albuterol Sulfate 90 Mcg 8 Gm Inhaler) 2 puff INHALE Q4H PRN PRN Reason: Shortness Of Breath Or Wheezin Amlodipine Besylate (Amlodipine Besylate 2.5 Mg Tablet) 2.5 mg PO DAILY [facility]; Protocol Last Admin: 11/06/24 10:21 Dose: 2.5 mg Atorvastatin Calcium (Atorvastatin Calcium 20 Mg Tablet) 20 mg PO DAILY [facility] Last Admin: 11/06/24 10:20 Dose: 20 mg Bisacodyl (Bisacodyl 10 Mg Supp.Rect) 10 mg IA BEDTIME PRN PRN Reason: Constipation Last Admin: 11/04/24 20:37 Dose: 10 mg Carbamazepine (Carbamazepine 200 Mg Tablet) 200 mg PO BID [facility] Last Admin: 11/06/24 10:21 Dose: 200 mg Dicyclomine HCl (Dicyclomine Hcl 10 Mg Capsule) 10 mg PO Q4H PRN On Hold: 11/02/24 22:41 PRN Reason: abdominal cramping Last Admin: 11/02/24 21:17 Dose: 10 mg Docusate Sodium (Docusate Sodium 100 Mg Capsule) 100 mg PO BID [facility] Last Admin: 11/06/24 10:21 Dose: 100 mg Duloxetine HCl (Duloxetine Hcl 60 Mg Capsule.Dr) 60 mg PO DAILY [facility] Last Admin: 11/06/24 10:21 Dose: 60 mg Fluticasone/Vilanterol (Fluticasone/Vilanterol 100/25 Blst.W.Dev) 1 puff INHALE RDAILY [facility] Last Admin: 11/06/24 10:22 Dose: 1 puff Gabapentin (Gabapentin 100 Mg Capsule) 100 mg PO TID [facility] Last Admin: 11/06/24 10:21 Dose: 100 mg Glipizide (Glipizide Xl 2.5 Mg Tab.Er.24) 2.5 mg PO DAILY [facility] Last Admin: 11/06/24 10:21 Dose: 2.5 mg Insulin Human Lispro (Insulin Lispro 100 Unit/Ml 3 Ml Vial) 0 unit SUBCUT TIDAC [facility]; Protocol Last Admin: 11/06/24 07:59 Dose: 2 unit Lactulose (Lactulose 20 Gm/30 Ml Solution) 30 gm PO ONCE ONE Stop: 11/06/24 15:01 Magnesium Hydroxide (Milk Of Magnesia 30 Ml Oral.Susp) 30 ml PO DAILY PRN PRN Reason: Constipation Last Admin: 11/04/24 16:49 Dose: 30 ml Mirtazapine (Mirtazapine 30 Mg Tablet) 30 mg PO BEDTIME [facility] Last Admin: 11/05/24 19:40 Dose: 30 mg Omeprazole (Omeprazole 20 Mg Capsule.Dr) 20 mg PO BID@0630,1630 [facility] Last Admin: 11/06/24 05:50 Dose: 20 mg Ondansetron HCl (Ondansetron Odt 4 Mg Tab.Rapdis) 4 mg TRANSLINGU Q4H PRN PRN Reason: Nausea and Vomiting Last Admin: 11/06/24 07:59 Dose: 4 mg Polyethylene Glycol (Polyethylene Glycol 3350 17 Gm Powd.Pack) 17 gm PO DAILY [facility] Last Admin: 11/06/24 10:36 Dose: 17 gm Psyllium Hydrophilic Mucilloid (Psyllium Seed 3.7 Gm Packet) 3.7 gm PO DAILY [facility] Last Admin: 11/06/24 10:36 Dose: Not Given Senna (Sennosides 8.6 Mg Tablet) 17.2 mg PO BEDTIME [facility] Last Admin: 11/05/24 19:39 Dose: 17.2 mg Simethicone (Simethicone 80 Mg Tab.Chew) 80 mg PO QIDWMHS [facility] Last Admin: 11/06/24 09:09 Dose: 80 mg Sitagliptin Phosphate (Sitagliptin Phosphate 25 Mg Tablet) 25 mg PO DAILY [facility] Last Admin: 11/06/24 10:36 Dose: 25 mg Trazodone HCl (Trazodone Hcl 50 Mg Tablet) 50 mg PO BEDTIME MRX1 PRN PRN Reason: Insomnia Last Admin: 11/03/24 20:46 Dose: 50 mg Home Medications ?Medication ?Instructions ?Recorded ?Confirmed ?Last Taken ?Type atorvastatin 20 mg tablet 20 mg PO DAILY 04/01/23 10/21/24 03/31/23 21:00 History ondansetron HCl 4 mg tablet 4 mg PO Q8H PRN nausea 04/01/23 10/21/24 03/31/23 21:00 History pantoprazole 40 mg tablet,delayed 40 mg PO BID@0630,1630 04/01/23 10/21/24 03/31/23 21:00 History release sitagliptin phosphate 100 mg 100 mg PO DAILY 04/01/23 10/21/24 03/31/23 21:00 History tablet (Januvia) albuterol sulfate 90 mcg/actuation 2 puff inhalation Q4-6H PRN 10/21/24 10/21/24 Unknown History aerosol inhaler Shortness Of Breath Or Wheezing amlodipine 2.5 mg tablet 2.5 mg PO DAILY 10/21/24 10/21/24 Unknown History duloxetine 20 mg capsule,delayed 40 mg PO DAILY 10/21/24 10/21/24 Unknown History release fluticasone furoate 100 1 ea inhalation DAILY 10/21/24 10/21/24 Unknown History mcg-vilanterol 25 mcg/dose inhalation powder (Breo Ellipta) gabapentin 100 mg capsule 100 mg PO TID 10/21/24 10/21/24 Unknown History gabapentin 600 mg tablet 600 mg PO BEDTIME 10/21/24 10/21/24 Unknown History glipizide 2.5 mg tablet, extended 2.5 mg PO DAILY 10/21/24 10/21/24 Unknown History release 24 hr lamotrigine 100 mg tablet 100 mg PO DAILY 10/21/24 10/21/24 Unknown History lisinopril 20 mg tablet 20 mg PO DAILY 10/21/24 10/21/24 Unknown History lorazepam 0.5 mg tablet 0.25 mg PO BID 10/21/24 10/21/24 Unknown History mirtazapine 45 mg tablet 45 mg PO BEDTIME 10/21/24 10/21/24 Unknown History olanzapine 2.5 mg tablet 2.5 mg PO BEDTIME 10/21/24 10/21/24 Unknown History pramipexole 0.25 mg tablet 0.25 mg PO BID 10/21/24 10/21/24 Unknown History propranolol 20 mg tablet 20 mg PO DAILY 10/21/24 10/21/24 Unknown History Physical Exam Vital Signs and Narrative: Vital Signs: Last Vital Signs Temp 96.8 F 11/05/24 20:47 Pulse 85 11/05/24 20:47 Resp 16 11/05/24 20:47 BP 177/84 H 11/05/24 20:47 Pulse Ox 94 11/05/24 20:47 O2 Del Method Room Air 11/05/24 20:47 BMI result Body Mass Index 22.9 CONST: Alert and oriented, in NAD. Well nourished. Ambulating ad woody on unit in no apparent distress HEENT: Normocephalic, atraumatic, MMM, Eyes clear, Neck supple RESP: Lungs clear, RRR even and regular HEART:,RRR, S1, S2. No edema GI:Abdomen Soft NT, ND. + BS times four. No guarding, no rebound tenderness :Deferred SKIN: Warm dry and intact, Intact closed laceration without active bleeding, no evidence of infection. Left eye lid bruised. NEURO:CN II-XII Intact bilaterally, Sensation intact. Speech clear PSYCH: Normal affect Results Labs 11/02/24 20:14 11/04/24 09:52 Labs: Laboratory Results - last 24 hr 11/05/24 11/05/24 11/05/24 11:14 16:10 20:54 POC Glucose 145 H 145 H 205 H 11/06/24 06:29 POC Glucose 186 H Imaging Radiologist's Impressions: Impressions Hip/Pelvis X-Ray 11/05/24 11:00 IMPRESSION: Unremarkable examination of the left hip. Electronically signed by: Sam Saini MD 11/05/2024 11:13 AM EDT RP KUB X-Ray 11/06/24 09:20 IMPRESSION: Large amount of stool throughout the colon. Electronically signed by: Sam Saini MD 11/06/2024 09:34 AM EDT RP Assessment and Plan (1) Gastroparesis: Status: Acute (2) Constipation: Qualifiers: Constipation type: slow transit constipation Qualified Code(s): K59.01 - Slow transit constipation Status: Acute Plan Fall with head laceration Wound repaired in the ED with Dermabond CT head and neck negative for any fracture Left hip and pelvis negative for any fracture or dislocation. Tylenol as needed for pain Anxiety with suicidal ideation Plan per Psychiatry Chronic abdominal plain/gastroparesis, chronic mild gastritis, history of diverticulosis/Constipation Patient is at [facility], she has had Botox injections in the past last in March 2024 Patient had a recent upper endoscopy negative for H pylori or any abnormalities Continues on duloxetine, may help with chronic pain. Continues with omeprazole twice daily We will increase MiraLax to b.i.d, DC Metamucil. Provide 2 doses of lactulose today. If no relief please give dulcolax at bedtime Patient had a KUB which demonstrated large amount of stool. Avoid opiates and anticholinergics Restless leg syndrome Patient continues on gabapentin and Mirapex twice daily Hypertension/hyperlipidemia Continue atorvastatin, lisinopril, and amlodipine Blood pressure stable Type 2 diabetes Continue with glipizide and Januvia Recent A1c 7.2, acceptable range for her age. We will add sliding scale insulin to improve glucose control, to help with symptoms of gastroparesis Thank you for allowing me to participate in the care of this patient. Will follow as needed. Please reconsult of any acute concerns or issues arise
[2024-11-06 11:32] LABS: Glucose, Whole Blood 166 mg/dL (60-115)
--- NOTE | 2024-11-06 16:21 | P.PNPSI_ITS ---
Subjective Subjective Date of Service: 11/06/24 Reason For Visit: SI with plan to OD on medications, increased anxie Subjective Notes: Conditional Voluntary Interim History: Pt reports constipation- had lactulose with good effects. She reports feeling tired. She is sleeping through the night. She denies headache. No SI/HI. SBP 177- monitor HTN. She is on amlodipine. She is sleeping through the night. Review of Systems Review of Systems Denies any shortness of breath, chest pain, dizziness, lightheadedness, +abdominal discomfort and cramps. , + nausea, no vomiting or diarrhea Yes all other systems are reviewed and are negative Mental Status Exam Mental Status Exam Narrative: Appearance: wearing hospital gown, fair hygiene, movement of lower extremities noted. Behavior: cooperative Psychomotor: constant movement of lower extremities Speech: clear, normal rate/rhythm/volume, spontaneous TP: linear TC: distressed by nausea Mood: i am better ,anxious Affect: congruent SI: denies HI: none VH/AH: none Delusions: none Memory/cog: alert, oriented x 1. MOCA on 10/24/202402/20, ACL 4.4 Diagnostics Vital Signs (24Hr): Vital Signs - 24 hr 11/05/24 20:47 11/06/24 08:00 Temperature 96.8 F 97.3 F Pulse Rate 85 90 Respiratory Rate 16 16 Blood Pressure 177/84 H 165/70 H Pulse Oximetry 94 94 Oxygen Delivery Method Room Air Room Air BMI result Body Mass Index 22.9 Labs 11/02/24 20:14 11/04/24 09:52 Labs: Laboratory Results - last 48 hr 11/04/24 11/04/24 11/04/24 16:30 16:53 21:12 POC Glucose 139 H 192 H 199 H 11/05/24 11/05/24 11/05/24 06:28 11:14 16:10 POC Glucose 155 H 145 H 145 H 11/05/24 11/06/24 11/06/24 20:54 06:29 11:28 POC Glucose 205 H 186 H 166 H Imaging Radiology Impressions: ITS Impressions Hip/Pelvis X-Ray 11/05/24 11:00 IMPRESSION: Unremarkable examination of the left hip. Electronically signed by: Sam Saini MD 11/05/2024 11:13 AM EDT KUB X-Ray 11/06/24 09:20 IMPRESSION: Large amount of stool throughout the colon. Electronically signed by: Sam Saini MD 11/06/2024 09:34 AM EDT RP Medications Medications Current Medications Acetaminophen (Acetaminophen 325 Mg Tablet) 650 mg PO Q6H PRN PRN Reason: Headache/Pain, Scale 1-10 Last Admin: 11/06/24 10:20 Dose: 650 mg Al Hydroxide/Mg Hydroxide (Magnesium Hydrox/Alum Hydrox 30 Ml Oral.Susp) 30 ml PO Q6H PRN PRN Reason: Heartburn/Nausea Last Admin: 11/01/24 18:57 Dose: 30 ml Albuterol Sulfate (Albuterol Sulfate 90 Mcg 8 Gm Inhaler) 2 puff INHALE Q4H PRN PRN Reason: Shortness Of Breath Or Wheezin Amlodipine Besylate (Amlodipine Besylate 2.5 Mg Tablet) 2.5 mg PO DAILY [facility]; Protocol Last Admin: 11/06/24 10:21 Dose: 2.5 mg Atorvastatin Calcium (Atorvastatin Calcium 20 Mg Tablet) 20 mg PO DAILY [facility] Last Admin: 11/06/24 10:20 Dose: 20 mg Bisacodyl (Bisacodyl 10 Mg Supp.Rect) 10 mg MO BEDTIME PRN PRN Reason: Constipation Last Admin: 11/04/24 20:37 Dose: 10 mg Bisacodyl (Bisacodyl 10 Mg Supp.Rect) 10 mg MO BEDTIME PRN PRN Reason: Constipation Carbamazepine (Carbamazepine 200 Mg Tablet) 200 mg PO BID [facility] Last Admin: 11/06/24 10:21 Dose: 200 mg Dicyclomine HCl (Dicyclomine Hcl 10 Mg Capsule) 10 mg PO Q4H PRN On Hold: 11/02/24 22:41 PRN Reason: abdominal cramping Last Admin: 11/02/24 21:17 Dose: 10 mg Docusate Sodium (Docusate Sodium 100 Mg Capsule) 100 mg PO BID [facility] Last Admin: 11/06/24 10:21 Dose: 100 mg Duloxetine HCl (Duloxetine Hcl 60 Mg Capsule.Dr) 60 mg PO DAILY [facility] Last Admin: 11/06/24 10:21 Dose: 60 mg Fluticasone/Vilanterol (Fluticasone/Vilanterol 100/25 Blst.W.Dev) 1 puff INHALE RDAILY [facility] Last Admin: 11/06/24 10:22 Dose: 1 puff Gabapentin (Gabapentin 100 Mg Capsule) 100 mg PO TID [facility] Last Admin: 11/06/24 15:30 Dose: 100 mg Glipizide (Glipizide Xl 2.5 Mg Tab.Er.24) 2.5 mg PO DAILY [facility] Last Admin: 11/06/24 10:21 Dose: 2.5 mg Insulin Human Lispro (Insulin Lispro 100 Unit/Ml 3 Ml Vial) 0 unit SUBCUT TIDAC [facility]; Protocol Last Admin: 11/06/24 11:48 Dose: 2 unit Magnesium Hydroxide (Milk Of Magnesia 30 Ml Oral.Susp) 30 ml PO DAILY PRN PRN Reason: Constipation Last Admin: 11/04/24 16:49 Dose: 30 ml Mirtazapine (Mirtazapine 30 Mg Tablet) 30 mg PO BEDTIME [facility] Last Admin: 11/05/24 19:40 Dose: 30 mg Omeprazole (Omeprazole 20 Mg Capsule.Dr) 20 mg PO BID@0630,1630 [facility] Last Admin: 11/06/24 05:50 Dose: 20 mg Ondansetron HCl (Ondansetron Odt 4 Mg Tab.Rapdis) 4 mg TRANSLINGU Q4H PRN PRN Reason: Nausea and Vomiting Last Admin: 11/06/24 07:59 Dose: 4 mg Polyethylene Glycol (Polyethylene Glycol 3350 17 Gm Powd.Pack) 17 gm PO BID [facility] Senna (Sennosides 8.6 Mg Tablet) 17.2 mg PO BEDTIME [facility] Last Admin: 11/05/24 19:39 Dose: 17.2 mg Simethicone (Simethicone 80 Mg Tab.Chew) 80 mg PO QIDWMHS [facility] Last Admin: 11/06/24 13:06 Dose: 80 mg Sitagliptin Phosphate (Sitagliptin Phosphate 25 Mg Tablet) 25 mg PO DAILY [facility] Last Admin: 11/06/24 10:36 Dose: 25 mg Trazodone HCl (Trazodone Hcl 50 Mg Tablet) 50 mg PO BEDTIME MRX1 PRN PRN Reason: Insomnia Last Admin: 11/03/24 20:46 Dose: 50 mg Allergies Allergies Allergy/AdvReac Type Severity Reaction Status Date / Time ampicillin Allergy Rash Verified 10/20/24 19:28 morphine Allergy Rash Verified 10/20/24 19:28 Penicillins Allergy Rash Verified 10/20/24 19:28 Assessment & Plan Assessment & Plan (1) MDD (major depressive disorder), recurrent episode, moderate: Status: Acute Code(s): F33.1 - Major depressive disorder, recurrent, moderate (2) Gastroparesis: Status: Acute Code(s): K31.84 - Gastroparesis (3) Anxiety: Status: Acute Code(s): F41.9 - Anxiety disorder, unspecified (4) RLS (restless legs syndrome): Status: Acute Code(s): G25.81 - Restless legs syndrome Plan 10/25/2024: Change Ativan and propranolol to twice daily with hold parameters in place for sedation and blood pressure respectively 10/26: Lower gabapentin from 200 mg 3 times per day to 100 mg 3 times per day 10/27: bentyl and reglan for abdo discomfort and nausea. 10/28 d/c reglan as it may exacerbate Akathisia/RLS. increase cymbalta to 60mg po daily. continue remeron. 10/29 switch ativan to clonazepam, continue gabapentin at current dose, increase in restlessness and anxiety. restart lamictal 50mg po qhs- although therapeutic benefit of medication is unclear. avoid polypharmacy as pt may tend to ask for several interventions. 10/30 continue tx. 10/31 continue tx. 11/01 pt continues to present as dysphoric, low frustration tolerance. signed 3 day. d/c lamictal, will try carbamazepine for mood stabilization. CAUTION with antipsychotic as may exacerbate rls/ akathisia. 11/02/24: Not sleeping well lats night d/t stomach pain. Hospitalist consult sent. Hyperfocus on stomach pain. No bowel movement for 4 days No SI/SIB/HI/AVH. Compliant with meds. No side effects. 11/03/24: Poor sleep, feeling better on stomach, seen by hospitalist and have abdominal scan yesterday, started treatment with laxative and breathing treatment. Less anxious, medication compliant. Patient to report if she has loose stool. Reports have small stools/BM today,. See hospitalist note for more details 11/04 continue tx. Per hospitalist over the weekend recommend following: OP referrals to cardiology for echo (r/o pericardial effusion), referral to [facility] for fibroid, GI follow up at [facility]. Appears less dysphoric. continue current medication. 11/05 continue tx. clonazepam dc/ed. 11/06 continue tx. constipation resolved. SBP higher today- will continue to monitor. No headache, swelling left eye, bruised on left eye. Reason for continued inpatient stay Substantial Risk for: inability to function Time Spent With Patient Time: Total time managing care of this patient today ____ minutes.
[2024-11-06 16:22] LABS: Glucose, Whole Blood 168 mg/dL (60-115)
[2024-11-06 20:00] VITALS: BP 184/86; PULSE 94; RESP 16; TEMP 35.6; O2SAT 99
[2024-11-06 21:27] LABS: Glucose, Whole Blood 82 mg/dL (60-115)
--- NOTE | 2024-11-07 00:05 | PC.NURSE ---
POC at 2119 was 82, 120 ml of cranberry offered/accepted and cup of yogurt she ate, bowel meds held due increased BM, currently in bed/resting quietly, 1:1 for safety check, will continue to monitor
[2024-11-07 06:16] VITALS: BMI 23.0
[2024-11-07 06:25] LABS: Glucose, Whole Blood 125 mg/dL (60-115)
[2024-11-07 08:00] VITALS: PULSE 87; RESP 16; TEMP 36.8; O2SAT 98
[2024-11-07] MEDS: Fluticasone/Vilanterol 100/25 BLST.W.DEV 1 PUFF INHALE (08:47)
[2024-11-07 10:48] LABS: Glucose, Whole Blood 159 mg/dL (60-115)
--- NOTE | 2024-11-07 12:34 | PC.NURSE ---
This morning she was complaining of her abd bothering her she was medicated with Tylenol and Bentyl after she was complaining that her head felt like it was blotted. After eating lunch she stated she is feeling much better. The bruising on her face is slowly improving, The swelling has decreased.
--- NOTE | 2024-11-07 15:25 | P.PNPSI_ITS ---
Subjective Subjective Date of Service: 11/07/24 Reason For Visit: SI with plan to OD on medications, increased anxie Subjective Notes: Conditional Voluntary Interim History: Pt reports several BM, no constipation anymore. However, pt reports cramping and abdominal pain which has been on going. Face bruised, she denied headaches or changes in vision. She reports feeling anxious, in setting of not being able to return to her son's house. BP has been higher than usual, will monitor for now. Review of Systems Review of Systems Denies any shortness of breath, chest pain, dizziness, lightheadedness, +abdominal discomfort and cramps. , + nausea, no vomiting or diarrhea Yes all other systems are reviewed and are negative Mental Status Exam Mental Status Exam Narrative: Appearance: wearing hospital gown, fair hygiene, movement of lower extremities noted. Behavior: cooperative Psychomotor: constant movement of lower extremities Speech: clear, normal rate/rhythm/volume, spontaneous TP: linear TC: distressed by nausea Mood: i am better ,anxious Affect: congruent SI: denies HI: none VH/AH: none Delusions: none Memory/cog: alert, oriented x 1. MOCA on 10/24/202402/20, ACL 4.4 Diagnostics Vital Signs (24Hr): Vital Signs - 24 hr 11/06/24 20:00 11/07/24 08:00 Temperature 96.1 F L 98.2 F Pulse Rate 94 87 Respiratory Rate 16 16 Blood Pressure 184/86 H Pulse Oximetry 99 98 Oxygen Delivery Method Room Air BMI result Body Mass Index 23.0 Labs 11/02/24 20:14 11/04/24 09:52 Labs: Laboratory Results - last 48 hr 11/05/24 11/05/24 11/06/24 16:10 20:54 06:29 POC Glucose 145 H 205 H 186 H 11/06/24 11/06/24 11/06/24 11:28 16:19 21:20 POC Glucose 166 H 168 H 82 11/07/24 11/07/24 06:20 10:45 POC Glucose 125 H 159 H Imaging Radiology Impressions: ITS Impressions Hip/Pelvis X-Ray 11/05/24 11:00 IMPRESSION: Unremarkable examination of the left hip. Electronically signed by: Sam Saini MD 11/05/2024 11:13 AM EDT KUB X-Ray 11/06/24 09:20 IMPRESSION: Large amount of stool throughout the colon. Electronically signed by: Sam Saini MD 11/06/2024 09:34 AM EDT RP Medications Medications Current Medications Acetaminophen (Acetaminophen 325 Mg Tablet) 650 mg PO Q6H PRN PRN Reason: Headache/Pain, Scale 1-10 Last Admin: 11/07/24 09:09 Dose: 650 mg Al Hydroxide/Mg Hydroxide (Magnesium Hydrox/Alum Hydrox 30 Ml Oral.Susp) 30 ml PO Q6H PRN PRN Reason: Heartburn/Nausea Last Admin: 11/01/24 18:57 Dose: 30 ml Albuterol Sulfate (Albuterol Sulfate 90 Mcg 8 Gm Inhaler) 2 puff INHALE Q4H PRN PRN Reason: Shortness Of Breath Or Wheezin Amlodipine Besylate (Amlodipine Besylate 2.5 Mg Tablet) 2.5 mg PO DAILY [facility]; Protocol Last Admin: 11/07/24 08:47 Dose: 2.5 mg Atorvastatin Calcium (Atorvastatin Calcium 20 Mg Tablet) 20 mg PO DAILY [facility] Last Admin: 11/07/24 08:48 Dose: 20 mg Bisacodyl (Bisacodyl 10 Mg Supp.Rect) 10 mg ID BEDTIME PRN PRN Reason: Constipation Last Admin: 11/04/24 20:37 Dose: 10 mg Carbamazepine (Carbamazepine 200 Mg Tablet) 200 mg PO BID [facility] Last Admin: 11/07/24 08:48 Dose: 200 mg Dicyclomine HCl (Dicyclomine Hcl 10 Mg Capsule) 10 mg PO Q4H PRN PRN Reason: abdominal cramping Last Admin: 11/07/24 09:08 Dose: 10 mg Docusate Sodium (Docusate Sodium 100 Mg Capsule) 100 mg PO BID [facility] Last Admin: 11/07/24 10:59 Dose: Not Given Duloxetine HCl (Duloxetine Hcl 60 Mg Capsule.Dr) 60 mg PO DAILY [facility] Last Admin: 11/07/24 08:48 Dose: 60 mg Fluticasone/Vilanterol (Fluticasone/Vilanterol 100/25 Blst.W.Dev) 1 puff INHALE RDAILY [facility] Last Admin: 11/07/24 08:47 Dose: 1 puff Gabapentin (Gabapentin 100 Mg Capsule) 100 mg PO TID [facility] Last Admin: 11/07/24 15:20 Dose: 100 mg Glipizide (Glipizide Xl 2.5 Mg Tab.Er.24) 2.5 mg PO DAILY [facility] Last Admin: 11/07/24 08:47 Dose: 2.5 mg Insulin Human Lispro (Insulin Lispro 100 Unit/Ml 3 Ml Vial) 0 unit SUBCUT TIDAC [facility]; Protocol Last Admin: 11/07/24 12:10 Dose: 2 unit Magnesium Hydroxide (Milk Of Magnesia 30 Ml Oral.Susp) 30 ml PO DAILY PRN PRN Reason: Constipation Last Admin: 11/04/24 16:49 Dose: 30 ml Mirtazapine (Mirtazapine 30 Mg Tablet) 30 mg PO BEDTIME [facility] Last Admin: 11/06/24 19:30 Dose: 30 mg Omeprazole (Omeprazole 20 Mg Capsule.Dr) 20 mg PO BID@0630,1630 [facility] Last Admin: 11/07/24 05:38 Dose: 20 mg Ondansetron HCl (Ondansetron Odt 4 Mg Tab.Rapdis) 4 mg TRANSLINGU Q4H PRN PRN Reason: Nausea and Vomiting Last Admin: 11/06/24 07:59 Dose: 4 mg Polyethylene Glycol (Polyethylene Glycol 3350 17 Gm Powd.Pack) 17 gm PO BID [facility] Last Admin: 11/07/24 10:59 Dose: Not Given Senna (Sennosides 8.6 Mg Tablet) 17.2 mg PO BEDTIME [facility] On Hold: 11/06/24 16:27 Last Admin: 11/05/24 19:39 Dose: 17.2 mg Simethicone (Simethicone 80 Mg Tab.Chew) 80 mg PO QIDWMHS [facility] Last Admin: 11/07/24 12:10 Dose: 80 mg Sitagliptin Phosphate (Sitagliptin Phosphate 25 Mg Tablet) 25 mg PO DAILY [facility] Last Admin: 11/07/24 08:47 Dose: 25 mg Trazodone HCl (Trazodone Hcl 50 Mg Tablet) 50 mg PO BEDTIME MRX1 PRN PRN Reason: Insomnia Last Admin: 11/03/24 20:46 Dose: 50 mg Allergies Allergies Allergy/AdvReac Type Severity Reaction Status Date / Time ampicillin Allergy Rash Verified 10/20/24 19:28 morphine Allergy Rash Verified 10/20/24 19:28 Penicillins Allergy Rash Verified 10/20/24 19:28 Assessment & Plan Assessment & Plan (1) MDD (major depressive disorder), recurrent episode, moderate: Status: Acute Code(s): F33.1 - Major depressive disorder, recurrent, moderate (2) Gastroparesis: Status: Acute Code(s): K31.84 - Gastroparesis (3) Anxiety: Status: Acute Code(s): F41.9 - Anxiety disorder, unspecified (4) RLS (restless legs syndrome): Status: Acute Code(s): G25.81 - Restless legs syndrome Plan 10/25/2024: Change Ativan and propranolol to twice daily with hold parameters in place for sedation and blood pressure respectively 10/26: Lower gabapentin from 200 mg 3 times per day to 100 mg 3 times per day 10/27: bentyl and reglan for abdo discomfort and nausea. 10/28 d/c reglan as it may exacerbate Akathisia/RLS. increase cymbalta to 60mg po daily. continue remeron. 10/29 switch ativan to clonazepam, continue gabapentin at current dose, increase in restlessness and anxiety. restart lamictal 50mg po qhs- although therapeutic benefit of medication is unclear. avoid polypharmacy as pt may tend to ask for several interventions. 10/30 continue tx. 10/31 continue tx. 11/01 pt continues to present as dysphoric, low frustration tolerance. signed 3 day. d/c lamictal, will try carbamazepine for mood stabilization. CAUTION with antipsychotic as may exacerbate rls/ akathisia. 11/02/24: Not sleeping well lats night d/t stomach pain. Hospitalist consult sent. Hyperfocus on stomach pain. No bowel movement for 4 days No SI/SIB/HI/AVH. Compliant with meds. No side effects. 11/03/24: Poor sleep, feeling better on stomach, seen by hospitalist and have abdominal scan yesterday, started treatment with laxative and breathing treatment. Less anxious, medication compliant. Patient to report if she has loose stool. Reports have small stools/BM today,. See hospitalist note for more details 11/04 continue tx. Per hospitalist over the weekend recommend following: OP referrals to cardiology for echo (r/o pericardial effusion), referral to [facility] [employer] for fibroid, GI follow up at [facility]. Appears less dysphoric. continue current medication. 11/05 continue tx. clonazepam dc/ed. 11/06 continue tx. constipation resolved. SBP higher today- will continue to monitor. No headache, swelling left eye, bruised on left eye. 11/07 continue tx. no headache, no changes in vision or mentation. Reason for continued inpatient stay Substantial Risk for: inability to function Time Spent With Patient Time: Total time managing care of this patient today ____ minutes.
[2024-11-07 16:24] LABS: Glucose, Whole Blood 115 mg/dL (60-115)
--- NOTE | 2024-11-07 16:49 | PC.NURSE ---
At dinner standing eating and moaning, told to stop eating if it made her uncomfortable but she said If I don't eat I will get skinny .
[2024-11-07 20:00] VITALS: BP 161/92; PULSE 93; RESP 16; TEMP 36.6; O2SAT 99
[2024-11-07 20:27] LABS: Glucose, Whole Blood 142 mg/dL (60-115)
[2024-11-08 06:33] LABS: Glucose, Whole Blood 147 mg/dL (60-115)
[2024-11-08] MEDS: Fluticasone/Vilanterol 100/25 BLST.W.DEV 1 PUFF INHALE (08:20)
[2024-11-08 08:23] VITALS: BP 158/106; PULSE 94; RESP 16; TEMP 36.8; O2SAT 98
[2024-11-08] MEDS: Magnesium Hydrox/Alum Hydrox 30 ML ORAL.SUSP PO (10:26)
--- NOTE | 2024-11-08 10:49 | P.CONHOSP_ITS ---
History of Present Illness Data of Consult Service Date: 11/08/24 Primary Care Provider: Unknown Physician HPI Reason for consult: Elevated BP, increased anxiety 78-year-old female with a history of hypertension, hyperlipidemia, type 2 diabetes, history of gastritis and gastroparesis. Patient is admitted to the geripsych unit with anxiety and suicidal ideation with plans to overdose on medications. At approximately 04:45 11/04/2024 a rapid response called to [facility] secondary to fall. Patient was found in the dining room sitting on the floor, she sustained a mechanical fall during which she sustained a 1 cm laceration to her head. She was evaluated in ED and Dermabond was applied to laceration. On exam the area is clean and dry, no bleeding noted. 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 Today she is awake and alert, moderately anxious, visiting with her family playing cards, ambulating at baseline. Patient reports that her head feels like its full of air and increased headache. She has some swelling to her eyes, no visual changes. Occasional dizziness reported by nursing. Her blood pressure has been elevated. She was bladder scanned for 140cc post void. Patient is anxious, no PRNs due to risk for falling. Review of Systems 2 Review of Systems: Denies any shortness of breath, chest pain, no nausea vomiting or diarrhea reported. Occasional dizziness. Reports chronic abdominal pain. [facility] Medical History (Updated 11/08/24 @ 14:31 by Martina Muse DNP) Migraines Diabetes Hypertension Anxiety Social History Household Members: None Housing: House Do you presently have visiting nurse or other home services: Yes Patient Tobacco Use Status: Never used Tobacco Currently Displaying Signs/Symptoms of Drug Intoxication Withdrawal: No Have you been hit, kicked, punched, or otherwise hurt by someone within the past year? If so, by whom?: No Do you feel safe in your current relationship?: No Current Relationship Is there a partner from a previous relationship who is making you feel unsafe now?: No Are you made to feel afraid or neglected: No Spiritual Healthcare Practices: meditation and breathing Advance Directives: No Advance Directives Information Provided: No Do you have thoughts of harming others: None Do you have a plan to hurt others: No Plan Recently lost weight without trying: No Eating poorly because of decreased appetite: No Nutrition Risks: No Nutritional Risk Patient : No : No Poor oral hygiene: No service: No Sexual orientation: Straight/Heterosexual Meds Allergies Allergy/AdvReac Type Severity Reaction Status Date / Time ampicillin Allergy Rash Verified 10/20/24 19:28 morphine Allergy Rash Verified 10/20/24 19:28 Penicillins Allergy Rash Verified 10/20/24 19:28 Active Medications: Current Medications Acetaminophen (Acetaminophen 325 Mg Tablet) 650 mg PO Q6H PRN PRN Reason: Headache/Pain, Scale 1-10 Last Admin: 11/07/24 15:15 Dose: 650 mg Al Hydroxide/Mg Hydroxide (Magnesium Hydrox/Alum Hydrox 30 Ml Oral.Susp) 30 ml PO Q6H PRN PRN Reason: Heartburn/Nausea Last Admin: 11/08/24 10:26 Dose: 30 ml Albuterol Sulfate (Albuterol Sulfate 90 Mcg 8 Gm Inhaler) 2 puff INHALE Q4H PRN PRN Reason: Shortness Of Breath Or Wheezin Amlodipine Besylate (Amlodipine Besylate 2.5 Mg Tablet) 2.5 mg PO DAILY [facility]; Protocol Last Admin: 11/08/24 08:21 Dose: 2.5 mg Atorvastatin Calcium (Atorvastatin Calcium 20 Mg Tablet) 20 mg PO DAILY [facility] Last Admin: 11/08/24 08:21 Dose: 20 mg Bisacodyl (Bisacodyl 10 Mg Supp.Rect) 10 mg [place] BEDTIME PRN PRN Reason: Constipation Last Admin: 11/04/24 20:37 Dose: 10 mg Carbamazepine (Carbamazepine 200 Mg Tablet) 200 mg PO BID [facility] Last Admin: 11/08/24 08:21 Dose: 200 mg Dicyclomine HCl (Dicyclomine Hcl 10 Mg Capsule) 10 mg PO Q4H PRN PRN Reason: abdominal cramping Last Admin: 11/07/24 09:08 Dose: 10 mg Docusate Sodium (Docusate Sodium 100 Mg Capsule) 100 mg PO BID [facility] Last Admin: 11/08/24 07:31 Dose: Not Given Duloxetine HCl (Duloxetine Hcl 60 Mg Capsule.Dr) 60 mg PO DAILY [facility] Last Admin: 11/08/24 08:21 Dose: 60 mg Fluticasone/Vilanterol (Fluticasone/Vilanterol 100/25 Blst.W.Dev) 1 puff INHALE RDAILY [facility] Last Admin: 11/08/24 08:20 Dose: 1 puff Gabapentin (Gabapentin 100 Mg Capsule) 100 mg PO TID [facility] Last Admin: 11/08/24 08:21 Dose: 100 mg Glipizide (Glipizide Xl 2.5 Mg Tab.Er.24) 2.5 mg PO DAILY [facility] Last Admin: 11/08/24 08:21 Dose: 2.5 mg Insulin Human Lispro (Insulin Lispro 100 Unit/Ml 3 Ml Vial) 0 unit SUBCUT TIDAC [facility]; Protocol Last Admin: 11/08/24 07:30 Dose: Not Given Magnesium Hydroxide (Milk Of Magnesia 30 Ml Oral.Susp) 30 ml PO DAILY PRN PRN Reason: Constipation Last Admin: 11/04/24 16:49 Dose: 30 ml Mirtazapine (Mirtazapine 30 Mg Tablet) 30 mg PO BEDTIME [facility] Last Admin: 11/07/24 19:51 Dose: 30 mg Omeprazole (Omeprazole 20 Mg Capsule.Dr) 20 mg PO BID@0630,1630 [facility] Last Admin: 11/08/24 05:49 Dose: 20 mg Ondansetron HCl (Ondansetron Odt 4 Mg Tab.Rapdis) 4 mg TRANSLINGU Q4H PRN PRN Reason: Nausea and Vomiting Last Admin: 11/08/24 08:05 Dose: 4 mg Polyethylene Glycol (Polyethylene Glycol 3350 17 Gm Powd.Pack) 17 gm PO BID [facility] Last Admin: 11/08/24 07:31 Dose: Not Given Senna (Sennosides 8.6 Mg Tablet) 17.2 mg PO BEDTIME [facility] On Hold: 11/06/24 16:27 Last Admin: 11/05/24 19:39 Dose: 17.2 mg Simethicone (Simethicone 80 Mg Tab.Chew) 80 mg PO QIDWMHS [facility] Last Admin: 11/08/24 08:21 Dose: 80 mg Sitagliptin Phosphate (Sitagliptin Phosphate 25 Mg Tablet) 25 mg PO DAILY [facility] Last Admin: 11/08/24 08:21 Dose: 25 mg Trazodone HCl (Trazodone Hcl 50 Mg Tablet) 50 mg PO BEDTIME MRX1 PRN PRN Reason: Insomnia Last Admin: 11/07/24 21:05 Dose: 50 mg Home Medications ?Medication ?Instructions ?Recorded ?Confirmed ?Last Taken ?Type atorvastatin 20 mg tablet 20 mg PO DAILY 04/01/2309/2403/31/23 21:00 History ondansetron HCl 4 mg tablet 4 mg PO Q8H PRN nausea 01/1410/21/24 03/31/23 21:00 History pantoprazole 40 mg tablet,delayed 40 mg PO BID@0630,16 30 04/01/23 10/21/24 03/31/23 21:00 History release sitagliptin phosphate 100 mg 100 mg PO DAILY 04/01/23 10/21/24 03/31/23 21:00 History tablet (Januvia) albuterol sulfate 90 mcg/actuation 2 puff inhalation Q 4-6H PRN 10/21/24 10/21/24 Unknown History aerosol inhaler Shortness Of Breath Or Wheez ing amlodipine 2.5 mg tablet 2.5 mg PO DAILY 10/21/24 Unknown History duloxetine 20 mg capsule,delayed 40 mg PO DAILY 10/21/24 Unknown History release fluticasone furoate 100 1 ea inhalation DAILY 10/21/24 Unknown History mcg-vilanterol 25 mcg/dose inhalation powder (Breo Ellipta) gabapentin 100 mg capsule 100 mg PO TID 10/21/2410/21 Unknown History gabapentin 600 mg tablet 600 mg PO BEDTIME 10/21/24 0 10/21/24 Unknown History glipizide 2.5 mg tablet, extended 2.5 mg PO DAILY 09/2410/21/24 Unknown History release 24 hr lamotrigine 100 mg tablet 100 mg PO DAILY 10/21/24 Unknown History lisinopril 20 mg tablet 20 mg PO DAILY 10/21/2409/24 Unknown History lorazepam 0.5 mg tablet 0.25 mg PO BID 10/21/2409/24 Unknown History mirtazapine 45 mg tablet 45 mg PO BEDTIME 10/21/24 Unknown History olanzapine 2.5 mg tablet 2.5 mg PO BEDTIME 10/21/24 0 10/21/24 Unknown History pramipexole 0.25 mg tablet 0.25 mg PO BID 10/21/24 Unknown History propranolol 20 mg tablet 20 mg PO DAILY 10/21/2409/24 Unknown History Physical Exam 2 Vital Signs and Narrative: Vital Signs: Last Vital Signs Temp 98.2 F 11/08/24 08:23 Pulse 94 11/08/24 08:23 Resp 16 11/08/24 08:23 BP 158/106 H 11/08/24 08:23 Pulse Ox 98 11/08/24 08:23 O2 Del Method Room Air 11/08/24 08:23 BMI result Body Mass Index 23.0 CONST: Alert and oriented, in NAD. Anxious HEENT: Normocephalic, atraumatic, MMM, Eyes clear RESP: Lungs clear, RRR even and regular HEART:,RRR, S1, S2. No murmur, no edema GI:Abdomen Soft NT, ND. + BS times four :Deferred SKIN: Warm dry and intact, bruising to left eyelid, + swelling to bilateral eyes. Fading bruising NEURO:CN II-XII Intact bilaterally, Sensation intact. Speech clear. PERRLA PSYCH: Anxious affect. Results Labs 11/02/24 20:14 11/04/24 09:52 Labs: Laboratory Results - last 24 hr 11/07/24 11/07/24 11/07/24 10:45 16:17 20:21 POC Glucose 159 H 115 142 H 11/08/24 06:25 POC Glucose 147 H Assessment and Plan (1) Fall: Qualifiers: Encounter type: subsequent encounter Qualified Code(s): W19.XXXD - Unspecified fall, subsequent encounter Status: Acute Plan Fall with head laceration/Agitation Wound repaired in the ED with Dermabond CT head and neck negative for any fracture 11/04/2024 Patient with increased agitation, elevated BP from baseline and facial swelling Repeat Head CT 11/09/2023 demonstrated Left frontal soft tissue swelling. No acute intracranial abnormality. Tylenol as needed for pain Anxiety with suicidal ideation Plan per Psychiatry No PRN anxiety medications ordered due to risk for falling. Chronic abdominal plain/gastroparesis, chronic mild gastritis, history of diverticulosis/Constipation Patient is at [facility], she has had Botox injections in the past last in March 2024 Patient had a recent upper endoscopy negative for H pylori or any abnormalities Continues on duloxetine, may help with chronic pain. Continues with omeprazole twice daily Avoid opiates and anticholinergics Restless leg syndrome Patient continues on gabapentin and Mirapex twice daily Hypertension/hyperlipidemia Continue atorvastatin, restart lisinopril 2.5 mgs in am, and amlodipine 2.5 mgs at hs. Blood pressure stable Thank you for allowing me to participate in the care of this patient. Will follow as needed. Please reconsult of any acute concerns or issues arise
[2024-11-08 11:09] LABS: Glucose, Whole Blood 245 mg/dL (60-115)
--- NOTE | 2024-11-08 12:49 | PC.NURSE ---
post void bladder scan 140cc
[2024-11-08 13:05] VITALS: BP 153/80; PULSE 104
--- NOTE | 2024-11-08 14:18 | HO.PSYCHPN ---
Subjective Subjective Date of Service: 11/08/24 Reason For Visit: SI with plan to OD on medications, increased anxie Subjective Notes: Conditional Voluntary Healthcare Proxy: Yes Interim History: Pt reports headache, feeling as if head is full of fluids. hospitalist consulted, stat head CT ordered. post fall day #4. Pt also reports abdominal cramps, which has been ongoing concern. She reports feeling anxious and depressed mostly in context of not going back to son's house. she is waiting to see her daughter who came from [place]. Review of Systems Review of Systems Denies any shortness of breath, chest pain, no nausea vomiting or diarrhea reported. Occasional dizziness. Reports chronic abdominal pain. Yes all other systems are reviewed and are negative Mental Status Exam Mental Status Exam Narrative: Appearance: wearing hospital gown, fair hygiene, movement of lower extremities noted. Behavior: cooperative Psychomotor: constant movement of lower extremities Speech: clear, normal rate/rhythm/volume, spontaneous TP: linear TC: distressed by nausea Mood: i am better ,anxious Affect: congruent SI: denies HI: none VH/AH: none Delusions: none Memory/cog: alert, oriented x 1. MOCA on 10/24/202402/20, ACL 4.4 Diagnostics Vital Signs (24Hr): Vital Signs - 24 hr 11/07/24 20:00 11/08/24 08:23 11/08/24 13:05 Temperature 97.9 F 98.2 F Pulse Rate 93 94 104 H Respiratory Rate 16 16 Blood Pressure 161/92 H 158/106 H 153/80 H Pulse Oximetry 99 98 Oxygen Delivery Method Room Air Room Air BMI result Body Mass Index 23.0 Labs 11/02/24 20:14 11/04/24 09:52 Labs: Laboratory Results - last 48 hr 11/06/24 11/06/24 11/07/24 16:19 21:20 06:20 POC Glucose 168 H 82 125 H 11/07/24 11/07/24 11/07/24 10:45 16:17 20:21 POC Glucose 159 H 115 142 H 11/08/24 11/08/24 06:25 11:07 POC Glucose 147 H 245 H Imaging Radiology Impressions: ITS Impressions Hip/Pelvis X-Ray 11/05/24 11:00 IMPRESSION: Unremarkable examination of the left hip. Electronically signed by: Sam Saini MD 11/05/2024 11:13 AM EDT RP KUB X-Ray 11/06/24 09:20 IMPRESSION: Large amount of stool throughout the colon. Electronically signed by: Sam Saini MD 11/06/2024 09:34 AM EDT RP Medications Medications Current Medications Acetaminophen (Acetaminophen 325 Mg Tablet) 650 mg PO Q6H PRN PRN Reason: Headache/Pain, Scale 1-10 Last Admin: 11/07/24 15:15 Dose: 650 mg Al Hydroxide/Mg Hydroxide (Magnesium Hydrox/Alum Hydrox 30 Ml Oral.Susp) 30 ml PO Q6H PRN PRN Reason: Heartburn/Nausea Last Admin: 11/08/24 10:26 Dose: 30 ml Albuterol Sulfate (Albuterol Sulfate 90 Mcg 8 Gm Inhaler) 2 puff INHALE Q4H PRN PRN Reason: Shortness Of Breath Or Wheezin Amlodipine Besylate (Amlodipine Besylate 2.5 Mg Tablet) 2.5 mg PO DAILY [facility]; Protocol Last Admin: 11/08/24 08:21 Dose: 2.5 mg Atorvastatin Calcium (Atorvastatin Calcium 20 Mg Tablet) 20 mg PO DAILY [facility] Last Admin: 11/08/24 08:21 Dose: 20 mg Bisacodyl (Bisacodyl 10 Mg Supp.Rect) [address] BEDTIME PRN PRN Reason: Constipation Last Admin: 11/04/24 20:37 Dose: 10 mg Carbamazepine (Carbamazepine 200 Mg Tablet) 200 mg PO BID [facility] Last Admin: 11/08/24 08:21 Dose: 200 mg Dicyclomine HCl (Dicyclomine Hcl 10 Mg Capsule) 10 mg PO Q4H PRN PRN Reason: abdominal cramping Last Admin: 11/07/24 09:08 Dose: 10 mg Docusate Sodium (Docusate Sodium 100 Mg Capsule) 100 mg PO BID [facility] Last Admin: 11/08/24 07:31 Dose: Not Given Duloxetine HCl (Duloxetine Hcl 60 Mg Capsule.Dr) 60 mg PO DAILY [facility] Last Admin: 11/08/24 08:21 Dose: 60 mg Fluticasone/Vilanterol (Fluticasone/Vilanterol 100/25 Blst.W.Dev) 1 puff INHALE RDAILY [facility] Last Admin: 11/08/24 08:20 Dose: 1 puff Gabapentin (Gabapentin 100 Mg Capsule) 100 mg PO TID [facility] Last Admin: 11/08/24 08:21 Dose: 100 mg Glipizide (Glipizide Xl 2.5 Mg Tab.Er.24) 2.5 mg PO DAILY [facility] Last Admin: 11/08/24 08:21 Dose: 2.5 mg Insulin Human Lispro (Insulin Lispro 100 Unit/Ml 3 Ml Vial) 0 unit SUBCUT TIDAC [facility]; Protocol Last Admin: 11/08/24 11:10 Dose: 4 unit Magnesium Hydroxide (Milk Of Magnesia 30 Ml Oral.Susp) 30 ml PO DAILY PRN PRN Reason: Constipation Last Admin: 11/04/24 16:49 Dose: 30 ml Mirtazapine (Mirtazapine 30 Mg Tablet) 30 mg PO BEDTIME [facility] Last Admin: 11/07/24 19:51 Dose: 30 mg Omeprazole (Omeprazole 20 Mg Capsule.Dr) 20 mg PO BID@0630,1630 [facility] Last Admin: 11/08/24 05:49 Dose: 20 mg Ondansetron HCl (Ondansetron Odt 4 Mg Tab.Rapdis) 4 mg TRANSLINGU Q4H PRN PRN Reason: Nausea and Vomiting Last Admin: 11/08/24 08:05 Dose: 4 mg Polyethylene Glycol (Polyethylene Glycol 3350 17 Gm Powd.Pack) 17 gm PO BID [facility] Last Admin: 11/08/24 07:31 Dose: Not Given Senna (Sennosides 8.6 Mg Tablet) 17.2 mg PO BEDTIME [facility] On Hold: 11/06/24 16:27 Last Admin: 11/05/24 19:39 Dose: 17.2 mg Simethicone (Simethicone 80 Mg Tab.Chew) 80 mg PO QIDWMHS [facility] Last Admin: 11/08/24 11:10 Dose: 80 mg Sitagliptin Phosphate (Sitagliptin Phosphate 25 Mg Tablet) 25 mg PO DAILY [facility] Last Admin: 11/08/24 08:21 Dose: 25 mg Trazodone HCl (Trazodone Hcl 50 Mg Tablet) 50 mg PO BEDTIME MRX1 PRN PRN Reason: Insomnia Last Admin: 11/07/24 21:05 Dose: 50 mg Allergies Allergies Allergy/AdvReac Type Severity Reaction Status Date / Time ampicillin Allergy Rash Verified 10/20/24 19:28 morphine Allergy Rash Verified 10/20/24 19:28 Penicillins Allergy Rash Verified 10/20/24 19:28 Assessment & Plan Assessment & Plan (1) MDD (major depressive disorder), recurrent episode, moderate: Status: Acute Code(s): F33.1 - Major depressive disorder, recurrent, moderate (2) Gastroparesis: Status: Acute Code(s): K31.84 - Gastroparesis (3) Anxiety: Status: Acute Code(s): F41.9 - Anxiety disorder, unspecified (4) RLS (restless legs syndrome): Status: Acute Code(s): G25.81 - Restless legs syndrome Plan 10/25/2024: Change Ativan and propranolol to twice daily with hold parameters in place for sedation and blood pressure respectively 10/26: Lower gabapentin from 200 mg 3 times per day to 100 mg 3 times per day 10/27: bentyl and reglan for abdo discomfort and nausea. 10/28 d/c reglan as it may exacerbate Akathisia/RLS. increase cymbalta to 60mg po daily. continue remeron. 10/29 switch ativan to clonazepam, continue gabapentin at current dose, increase in restlessness and anxiety. restart lamictal 50mg po qhs- although therapeutic benefit of medication is unclear. avoid polypharmacy as pt may tend to ask for several interventions. 10/30 continue tx. 10/31 continue tx. 11/01 pt continues to present as dysphoric, low frustration tolerance. signed 3 day. d/c lamictal, will try carbamazepine for mood stabilization. CAUTION with antipsychotic as may exacerbate rls/ akathisia. 11/02/24: Not sleeping well lats night d/t stomach pain. Hospitalist consult sent. Hyperfocus on stomach pain. No bowel movement for 4 days No SI/SIB/HI/AVH. Compliant with meds. No side effects. 11/03/24: Poor sleep, feeling better on stomach, seen by hospitalist and have abdominal scan yesterday, started treatment with laxative and breathing treatment. Less anxious, medication compliant. Patient to report if she has loose stool. Reports have small stools/BM today,. See hospitalist note for more details 11/04 continue tx. Per hospitalist over the weekend recommend following: OP referrals to cardiology for echo (r/o pericardial effusion), referral to [facility] for fibroid, GI follow up at [facility]. Appears less dysphoric. continue current medication. 11/05 continue tx. clonazepam dc/ed. 11/06 continue tx. constipation resolved. SBP higher today- will continue to monitor. No headache, swelling left eye, bruised on left eye. 11/07 continue tx. no headache, no changes in vision or mentation. 11/08 continue tx. ordered hospitalist consult, stat HEAD CT due to headache r/o intracraneal bleed. Reason for continued inpatient stay Substantial Risk for: inability to function Time Spent With Patient Time: Total time managing care of this patient today ____ minutes.
[2024-11-08 16:57] LABS: Glucose, Whole Blood 115 mg/dL (60-115)
[2024-11-08 20:00] VITALS: BP 159/78; PULSE 90; RESP 16; TEMP 36.6; O2SAT 97
[2024-11-08 21:27] LABS: Glucose, Whole Blood 255 mg/dL (60-115)
[2024-11-09 03:07] VITALS: BP 159/78; PULSE 90; RESP 16; TEMP 36.6; O2SAT 97
[2024-11-09 06:48] LABS: Glucose, Whole Blood 137 mg/dL (60-115)
[2024-11-09 07:51] VITALS: BP 159/76; PULSE 104; RESP 20; TEMP 36.2; O2SAT 99
[2024-11-09 08:19] VITALS: BP 159/76
[2024-11-09] MEDS: Fluticasone/Vilanterol 100/25 BLST.W.DEV 1 PUFF INHALE (08:25)
[2024-11-09 11:06] LABS: Glucose, Whole Blood 302 mg/dL (60-115)
[2024-11-09 13:27] VITALS: BP 159/76
--- NOTE | 2024-11-09 14:20 | PC.NURSE ---
C/o stomach cramping, offered Bentyl and Bailee stated That makes me feel like a zombie. She declined to take Bentyl.
[2024-11-09 16:20] LABS: Glucose, Whole Blood 77 mg/dL (60-115)
--- NOTE | 2024-11-09 18:28 | P.PNPSI_ITS ---
Subjective Subjective Date of Service: 11/09/24 Reason For Visit: SI with plan to OD on medications, increased anxie Interim History: Patient seen in the Day area. She was cooperative, anxious stance. Fixated on a range of somatic symptoms, primary the idea of fluid in her head. [employer] did review the results of the head CT with her which she did seem to be aware of. It was negative for any acute intracranial process. Per discussion with staff, patient struggles with somatic preoccupation, to the point where she can become disruptive in group/social settings. Because of the risk of falls, will not trial any as needed medications over the weekend, will defer to the primary team. Medication Compliance: Yes Side effects from medications: No Attending Groups: Intermittent Review of Systems Acute medical concerns: Yes subjective concerns - somatic preoccupation Medical Review of Systems: unchanged Mental Status Exam Mental Status Exam Narrative: Appearance:casual attire, bruises on face Behavior: frantic stance Orientation: alert, generally oriented to person, place, time Memory: grossly intact to recent/remote events Attention: able to attend to the encounter discussion Psychomotor Function: no agitation or slowing; no abnormal gestures or movements Speech: normal rate, tone, volume Mood: anxious Affect: anxious Thought Process: perseverative Thought Content: fixation on somatic symptoms; denies SI/HI Hallucinations: denies AVH delusions: somatic preoccupation is non-reality based Insight: impairment Judgment: impairment Impulsivity: none noted Diagnostics Vital Signs (24Hr): Vital Signs - 24 hr 11/08/24 20:00 11/09/24 03:07 11/09/24 07:51 Temperature 97.8 F 97.8 F 97.1 F Pulse Rate 90 90 104 H Respiratory Rate 16 16 20 Blood Pressure 159/78 H 159/78 H 159/76 H Pulse Oximetry 97 97 99 Oxygen Delivery Method Room Air Room Air Room Air 11/09/24 08:19 11/09/24 08:19 11/09/24 13:27 Temperature Pulse Rate Respiratory Rate Blood Pressure 159/76 H 159/76 H 159/76 H Pulse Oximetry Oxygen Delivery Method BMI result Body Mass Index 23.0 Labs 11/02/24 20:14 11/04/24 09:52 Labs: Laboratory Results - last 48 hr 11/07/24 11/08/24 11/08/24 20:21 06:25 11:07 POC Glucose 142 H 147 H 245 H 11/08/24 11/08/24 11/09/24 16:51 21:23 06:39 POC Glucose 115 255 H 137 H 11/09/24 11/09/24 11:02 16:04 POC Glucose 302 H 77 Imaging Radiology Impressions: ITS Impressions Hip/Pelvis X-Ray 11/05/24 11:00 IMPRESSION: Unremarkable examination of the left hip. Electronically signed by: Sam Saini MD 11/05/2024 11:13 AM EDT RP KUB X-Ray 11/06/24 09:20 IMPRESSION: Large amount of stool throughout the colon. Electronically signed by: Sam Saini MD 11/06/2024 09:34 AM EDT RP Head CT 11/08/24 14:58 IMPRESSION: Left frontal soft tissue swelling. No acute intracranial abnormality. Electronically signed by: Sam Saini MD 11/08/2024 03:18 PM EDT RP Medications Medications Current Medications Acetaminophen (Acetaminophen 325 Mg Tablet) 650 mg PO Q6H PRN PRN Reason: Headache/Pain, Scale 1-10 Last Admin: 11/08/24 15:09 Dose: 650 mg Al Hydroxide/Mg Hydroxide (Magnesium Hydrox/Alum Hydrox 30 Ml Oral.Susp) 30 ml PO Q6H PRN PRN Reason: Heartburn/Nausea Last Admin: 11/08/24 10:26 Dose: 30 ml Albuterol Sulfate (Albuterol Sulfate 90 Mcg 8 Gm Inhaler) 2 puff INHALE Q4H PRN PRN Reason: Shortness Of Breath Or Wheezin Amlodipine Besylate (Amlodipine Besylate 2.5 Mg Tablet) 2.5 mg PO DAILY [facility]; Protocol Last Admin: 11/09/24 08:19 Dose: 2.5 mg Atorvastatin Calcium (Atorvastatin Calcium 20 Mg Tablet) 20 mg PO DAILY [facility] Last Admin: 11/09/24 08:19 Dose: 20 mg Bisacodyl (Bisacodyl 10 Mg Supp.Rect) 10 mg AL BEDTIME PRN PRN Reason: Constipation Last Admin: 11/04/24 20:37 Dose: 10 mg Carbamazepine (Carbamazepine 200 Mg Tablet) 200 mg PO BID [facility] Last Admin: 11/09/24 08:19 Dose: 200 mg Dicyclomine HCl (Dicyclomine Hcl 10 Mg Capsule) 10 mg PO Q4H PRN PRN Reason: abdominal cramping Last Admin: 11/07/24 09:08 Dose: 10 mg Docusate Sodium (Docusate Sodium 100 Mg Capsule) 100 mg PO BID [facility] Last Admin: 11/09/24 08:20 Dose: Not Given Duloxetine HCl (Duloxetine Hcl 60 Mg Capsule.Dr) 60 mg PO DAILY [facility] Last Admin: 11/09/24 08:19 Dose: 60 mg Fluticasone/Vilanterol (Fluticasone/Vilanterol 100/25 Blst.W.Dev) 1 puff INHALE RDAILY [facility] Last Admin: 11/09/24 08:25 Dose: 1 puff Gabapentin (Gabapentin 100 Mg Capsule) 100 mg PO TID [facility] Last Admin: 11/09/24 13:56 Dose: 100 mg Glipizide (Glipizide Xl 2.5 Mg Tab.Er.24) 2.5 mg PO DAILY [facility] Last Admin: 11/09/24 08:19 Dose: 2.5 mg Insulin Human Lispro (Insulin Lispro 100 Unit/Ml 3 Ml Vial) 0 unit SUBCUT TIDAC [facility]; Protocol Last Admin: 11/09/24 16:10 Dose: Not Given Lisinopril (Lisinopril 2.5 Mg Tablet) 2.5 mg PO DAILY [facility]; Protocol Last Admin: 11/09/24 08:19 Dose: 2.5 mg Magnesium Hydroxide (Milk Of Magnesia 30 Ml Oral.Susp) 30 ml PO DAILY PRN PRN Reason: Constipation Last Admin: 11/04/24 16:49 Dose: 30 ml Mirtazapine (Mirtazapine 30 Mg Tablet) 30 mg PO BEDTIME [facility] Last Admin: 11/08/24 20:51 Dose: 30 mg Omeprazole (Omeprazole 20 Mg Capsule.Dr) 20 mg PO BID@0630,1630 [facility] Last Admin: 11/09/24 16:03 Dose: 20 mg Ondansetron HCl (Ondansetron Odt 4 Mg Tab.Rapdis) 4 mg TRANSLINGU Q4H PRN PRN Reason: Nausea and Vomiting Last Admin: 11/08/24 08:05 Dose: 4 mg Polyethylene Glycol (Polyethylene Glycol 3350 17 Gm Powd.Pack) 17 gm PO BID [facility] Last Admin: 11/09/24 08:20 Dose: Not Given Senna (Sennosides 8.6 Mg Tablet) 17.2 mg PO BEDTIME [facility] On Hold: 11/06/24 16:27 Last Admin: 11/05/24 19:39 Dose: 17.2 mg Simethicone (Simethicone 80 Mg Tab.Chew) 80 mg PO QIDWMHS [facility] Last Admin: 11/09/24 16:03 Dose: 80 mg Sitagliptin Phosphate (Sitagliptin Phosphate 25 Mg Tablet) 25 mg PO DAILY [facility] Last Admin: 11/09/24 08:19 Dose: 25 mg Trazodone HCl (Trazodone Hcl 50 Mg Tablet) 50 mg PO BEDTIME MRX1 PRN PRN Reason: Insomnia Last Admin: 11/08/24 23:51 Dose: 50 mg Allergies Allergies Allergy/AdvReac Type Severity Reaction Status Date / Time ampicillin Allergy Rash Verified 10/20/24 19:28 morphine Allergy Rash Verified 10/20/24 19:28 Penicillins Allergy Rash Verified 10/20/24 19:28 Assessment & Plan Assessment & Plan (1) Fall: Qualifiers: Encounter type: subsequent encounter Qualified Code(s): W19.XXXD - Unspecified fall, subsequent encounter Status: Acute Code(s): W19.XXXA - Unspecified fall, initial encounter (2) Anxiety: Status: Acute Code(s): F41.9 - Anxiety disorder, unspecified (3) Gastroparesis: Status: Acute Code(s): K31.84 - Gastroparesis (4) MDD (major depressive disorder), recurrent episode, moderate: Status: Acute Code(s): F33.1 - Major depressive disorder, recurrent, moderate (5) RLS (restless legs syndrome): Status: Acute Code(s): G25.81 - Restless legs syndrome Plan Fall with head laceration/Agitation Wound repaired in the ED with Dermabond CT head and neck negative for any fracture 11/04/2024 Patient with increased agitation, elevated BP from baseline and facial swelling Repeat Head CT 11/09/2023 demonstrated Left frontal soft tissue swelling. No acute intracranial abnormality. Tylenol as needed for pain Anxiety with suicidal ideation No PRN anxiety medications ordered due to risk for falling. Chronic abdominal plain/gastroparesis, chronic mild gastritis, history of diverticulosis/Constipation Patient is at [facility], she has had Botox injections in the past last in March 2024 Patient had a recent upper endoscopy negative for H pylori or any abnormalities Continues on duloxetine, may help with chronic pain. Continues with omeprazole twice daily Avoid opiates and anticholinergics Restless leg syndrome Patient continues on gabapentin and Mirapex twice daily Hypertension/hyperlipidemia Continue atorvastatin, restart lisinopril 2.5 mgs in am, and amlodipine 2.5 mgs at hs. Blood pressure stable 11/09: no change - defer initiation of any PRN medications to the primary team due to falls risk Patient educated on: diagnosis Informed Consent: understands Reason for continued inpatient stay Substantial Risk for: inability to function Time Spent With Patient Time: Total time managing care of this patient today ____ minutes.
[2024-11-09 20:00] VITALS: BP 134/70; PULSE 86; RESP 18; TEMP 36.5; O2SAT 98
[2024-11-09 20:36] LABS: Glucose, Whole Blood 242 mg/dL (60-115)
[2024-11-10 06:56] LABS: Glucose, Whole Blood 187 mg/dL (60-115)
[2024-11-10 08:16] VITALS: BP 136/74; PULSE 101; RESP 20; TEMP 36.8; O2SAT 96
[2024-11-10] MEDS: Fluticasone/Vilanterol 100/25 BLST.W.DEV 1 PUFF INHALE (08:21)
[2024-11-10 11:35] LABS: Glucose, Whole Blood 230 mg/dL (60-115)
[2024-11-10] MEDS: Magnesium Hydrox/Alum Hydrox 30 ML ORAL.SUSP PO (13:41)
[2024-11-10 16:29] LABS: Glucose, Whole Blood 105 mg/dL (60-115)
--- NOTE | 2024-11-10 16:38 | HO.PSYCHPN ---
Subjective Subjective Date of Service: 11/10/24 Reason For Visit: SI with plan to OD on medications, increased anxie Interim History: Patient seen in the hallway. She continues to present with high anxiety, somatic preoccupation. Nursing staff reported that she seemed to drive some benefit from trazodone last night. She also got simethicone and Zofran. When group underwriter saw her, she stated that it was difficult to stop the pacing, and that she had the sensation of being unable to sit still. She reported abdominal pain/cramping, but refused Bentyl. ? Given the recent fall and high concern about side effects/adverse reactions to any sedating medications, will defer next steps to primary team. Medication Compliance: Yes Side effects from medications: No Attending Groups: No Review of Systems Acute medical concerns: No Medical Review of Systems: unchanged Mental Status Exam Mental Status Exam Narrative: Appearance:casual attire, bruises on face Behavior: frantic stance Orientation: alert, generally oriented to person, place, time Memory: grossly intact to recent/remote events Attention: able to attend to the encounter discussion Psychomotor Function: pacing Speech: normal rate, tone, volume Mood: anxious Affect: anxious Thought Process: perseverative Thought Content: fixation on somatic symptoms; denies SI/HI Hallucinations: denies AVH delusions: somatic preoccupation Insight: impairment Judgment: impairment Impulsivity: none noted Diagnostics Vital Signs (24Hr): Vital Signs - 24 hr 11/09/24 20:00 11/10/24 08:16 Temperature 97.7 F 98.2 F Pulse Rate 86 101 H Respiratory Rate 18 20 Blood Pressure 134/70 136/74 Pulse Oximetry 98 96 Oxygen Delivery Method Room Air Room Air BMI result Body Mass Index 23.0 Labs 11/02/24 20:14 11/04/24 09:52 Labs: Laboratory Results - last 48 hr 11/08/24 11/08/24 11/09/24 16:51 21:23 06:39 POC Glucose 115 255 H 137 H 11/09/24 11/09/24 11/09/24 11:02 16:04 20:29 POC Glucose 302 H 77 242 H 11/10/24 11/10/24 11/10/24 06:37 11:29 16:24 POC Glucose 187 H 230 H 105 Imaging Radiology Impressions: ITS Impressions Hip/Pelvis X-Ray 11/05/24 11:00 IMPRESSION: Unremarkable examination of the left hip. Electronically signed by: Sam Saini MD 11/05/2024 11:13 AM EDT RP KUB X-Ray 11/06/24 09:20 IMPRESSION: Large amount of stool throughout the colon. Electronically signed by: Sam Saini MD 11/06/2024 09:34 AM EDT RP Head CT 11/08/24 14:58 IMPRESSION: Left frontal soft tissue swelling. No acute intracranial abnormality. Electronically signed by: Sam Saini MD 11/08/2024 03:18 PM EDT RP Medications Medications Current Medications Acetaminophen (Acetaminophen 325 Mg Tablet) 650 mg PO Q6H PRN PRN Reason: Headache/Pain, Scale 1-10 Last Admin: 11/10/24 14:54 Dose: 650 mg Al Hydroxide/Mg Hydroxide (Magnesium Hydrox/Alum Hydrox 30 Ml Oral.Susp) 30 ml PO Q6H PRN PRN Reason: Heartburn/Nausea Last Admin: 11/10/24 13:41 Dose: 30 ml Albuterol Sulfate (Albuterol Sulfate 90 Mcg 8 Gm Inhaler) 2 puff INHALE Q4H PRN PRN Reason: Shortness Of Breath Or Wheezin Amlodipine Besylate (Amlodipine Besylate 2.5 Mg Tablet) 2.5 mg PO DAILY [facility]; Protocol Last Admin: 11/10/24 08:18 Dose: 2.5 mg Atorvastatin Calcium (Atorvastatin Calcium 20 Mg Tablet) 20 mg PO DAILY [facility] Last Admin: 11/10/24 08:02 Dose: 20 mg Bisacodyl (Bisacodyl 10 Mg Supp.Rect) 10 mg [place] BEDTIME PRN PRN Reason: Constipation Last Admin: 11/04/24 20:37 Dose: 10 mg Carbamazepine (Carbamazepine 200 Mg Tablet) 200 mg PO BID [facility] Last Admin: 11/10/24 08:01 Dose: 200 mg Dicyclomine HCl (Dicyclomine Hcl 10 Mg Capsule) 10 mg PO Q4H PRN PRN Reason: abdominal cramping Last Admin: 11/10/24 14:58 Dose: 10 mg Docusate Sodium (Docusate Sodium 100 Mg Capsule) 100 mg PO BID [facility] Last Admin: 11/10/24 08:02 Dose: Not Given Duloxetine HCl (Duloxetine Hcl 60 Mg Capsule.Dr) 60 mg PO DAILY [facility] Last Admin: 11/10/24 08:02 Dose: 60 mg Fluticasone/Vilanterol (Fluticasone/Vilanterol 100/25 Blst.W.Dev) 1 puff INHALE RDAILY [facility] Last Admin: 11/10/24 08:21 Dose: 1 puff Gabapentin (Gabapentin 100 Mg Capsule) 100 mg PO TID [facility] Last Admin: 11/10/24 14:48 Dose: 100 mg Glipizide (Glipizide Xl 2.5 Mg Tab.Er.24) 2.5 mg PO DAILY [facility] Last Admin: 11/10/24 08:03 Dose: 2.5 mg Insulin Human Lispro (Insulin Lispro 100 Unit/Ml 3 Ml Vial) 0 unit SUBCUT TIDAC [facility]; Protocol Last Admin: 11/10/24 16:35 Dose: Not Given Lisinopril (Lisinopril 2.5 Mg Tablet) 2.5 mg PO DAILY [facility]; Protocol Last Admin: 11/10/24 08:18 Dose: 2.5 mg Magnesium Hydroxide (Milk Of Magnesia 30 Ml Oral.Susp) 30 ml PO DAILY PRN PRN Reason: Constipation Last Admin: 11/04/24 16:49 Dose: 30 ml Mirtazapine (Mirtazapine 30 Mg Tablet) 30 mg PO BEDTIME [facility] Last Admin: 11/09/24 20:05 Dose: 30 mg Omeprazole (Omeprazole 20 Mg Capsule.Dr) 20 mg PO BID@0630,1630 [facility] Last Admin: 11/10/24 16:35 Dose: 20 mg Ondansetron HCl (Ondansetron Odt 4 Mg Tab.Rapdis) 4 mg TRANSLINGU Q4H PRN PRN Reason: Nausea and Vomiting Last Admin: 11/10/24 08:18 Dose: 4 mg Polyethylene Glycol (Polyethylene Glycol 3350 17 Gm Powd.Pack) 17 gm PO BID [facility] Last Admin: 11/10/24 08:03 Dose: Not Given Senna (Sennosides 8.6 Mg Tablet) 17.2 mg PO BEDTIME [facility] On Hold: 11/06/24 16:27 Last Admin: 11/05/24 19:39 Dose: 17.2 mg Simethicone (Simethicone 80 Mg Tab.Chew) 80 mg PO QIDWMHS [facility] Last Admin: 11/10/24 11:27 Dose: 80 mg Sitagliptin Phosphate (Sitagliptin Phosphate 25 Mg Tablet) 25 mg PO DAILY [facility] Last Admin: 11/10/24 08:03 Dose: 25 mg Trazodone HCl (Trazodone Hcl 50 Mg Tablet) 50 mg PO BEDTIME MRX1 PRN PRN Reason: Insomnia Last Admin: 11/09/24 20:13 Dose: 50 mg Allergies Allergies Allergy/AdvReac Type Severity Reaction Status Date / Time ampicillin Allergy Rash Verified 10/20/24 19:28 morphine Allergy Rash Verified 10/20/24 19:28 Penicillins Allergy Rash Verified 10/20/24 19:28 Assessment & Plan Assessment & Plan (1) Fall: Qualifiers: Encounter type: subsequent encounter Qualified Code(s): W19.XXXD - Unspecified fall, subsequent encounter Status: Acute Code(s): W19.XXXA - Unspecified fall, initial encounter (2) Anxiety: Status: Acute Code(s): F41.9 - Anxiety disorder, unspecified (3) Gastroparesis: Status: Acute Code(s): K31.84 - Gastroparesis (4) MDD (major depressive disorder), recurrent episode, moderate: Status: Acute Code(s): F33.1 - Major depressive disorder, recurrent, moderate (5) RLS (restless legs syndrome): Status: Acute Code(s): G25.81 - Restless legs syndrome Plan Fall with head laceration/Agitation Wound repaired in the ED with Dermabond CT head and neck negative for any fracture 11/04/2024 Patient with increased agitation, elevated BP from baseline and facial swelling Repeat Head CT 11/09/2023 demonstrated Left frontal soft tissue swelling. No acute intracranial abnormality. Tylenol as needed for pain Anxiety with suicidal ideation No PRN anxiety medications ordered due to risk for falling. Chronic abdominal plain/gastroparesis, chronic mild gastritis, history of diverticulosis/Constipation Patient is at [facility], she has had Botox injections in the past last in March 2024 Patient had a recent upper endoscopy negative for H pylori or any abnormalities Continues on duloxetine, may help with chronic pain. Continues with omeprazole twice daily Avoid opiates and anticholinergics Restless leg syndrome Patient continues on gabapentin and Mirapex twice daily Hypertension/hyperlipidemia Continue atorvastatin, restart lisinopril 2.5 mgs in am, and amlodipine 2.5 mgs at hs. Blood pressure stable 11/09: no change - defer initiation of any PRN medications to the primary team due to falls risk 11/10: pacing continues, patient refusing Bentyl Patient educated on: diagnosis and medication risk/benefits Informed Consent: understands Reason for continued inpatient stay Substantial Risk for: inability to function and rapid decompensation Time Spent With Patient Time: Total time managing care of this patient today __15__ minutes.
--- NOTE | 2024-11-10 17:49 | PC.NURSE ---
Pt reported she was unable to eat mac and cheese at supper due to lactose allergy. No lactose allergy noted in chart. Daughter in to visit at 1730 and states mother has been saying she is allergic to lactose. Pt reports she has adverse reactions to lactose which include flatulence and bloating, daughter confirms lactose issue is more of an adverse reaction than an allergy. 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 Dr Regalado informed that record would be updated to reflect this new information. Pt has been c/o bloating/abd discomfort while hospitalized.
[2024-11-10 20:00] VITALS: BP 150/63; PULSE 91; RESP 18; TEMP 36.3; O2SAT 96
[2024-11-10 20:09] LABS: Glucose, Whole Blood 126 mg/dL (60-115)
[2024-11-11 06:41] LABS: Glucose, Whole Blood 159 mg/dL (60-115)
[2024-11-11 08:00] VITALS: BP 137/70; PULSE 93; RESP 16; TEMP 36.8; O2SAT 100
--- NOTE | 2024-11-11 08:47 | P.PNPSI_ITS ---
Subjective Subjective Date of Service: 11/11/24 Reason For Visit: SI with plan to OD on medications, increased anxie Subjective Notes: Conditional Voluntary Interim History: Pt slept through the night. She reports very anxious due to RLS. will try pramipexole which is less sedating and may have boosting effect on depression. Will also add B6. She has on and off abdominal cramping, prescribed bentyl for this. No constipation. She is visible on the unit. No SI/HI. Review of Systems Review of Systems Denies any shortness of breath, chest pain, no nausea vomiting or diarrhea reported. Occasional dizziness. Reports chronic abdominal pain. Yes all other systems are reviewed and are negative Mental Status Exam Mental Status Exam Narrative: Appearance:casual attire, bruises on face Behavior: frantic stance Orientation: alert, generally oriented to person, place, time Memory: grossly intact to recent/remote events Attention: able to attend to the encounter discussion Psychomotor Function: pacing Speech: normal rate, tone, volume Mood: anxious Affect: anxious Thought Process: perseverative Thought Content: fixation on somatic symptoms; denies SI/HI Hallucinations: denies AVH delusions: somatic preoccupation Insight: impairment Judgment: impairment Impulsivity: none noted Diagnostics Vital Signs (24Hr): Vital Signs - 24 hr 11/10/24 20:00 Temperature 97.3 F Pulse Rate 91 Respiratory Rate 18 Blood Pressure 150/63 H Pulse Oximetry 96 Oxygen Delivery Method Room Air BMI result Body Mass Index 23.0 Labs 11/02/24 20:14 11/04/24 09:52 Labs: Laboratory Results - last 48 hr 11/09/24 11/09/24 11/09/24 11:02 16:04 20:29 POC Glucose 302 H 77 242 H 11/10/24 11/10/24 11/10/24 06:37 11:29 16:24 POC Glucose 187 H 230 H 105 11/10/24 11/11/24 20:05 06:32 POC Glucose 126 H 159 H Imaging Radiology Impressions: ITS Impressions Hip/Pelvis X-Ray 11/05/24 11:00 IMPRESSION: Unremarkable examination of the left hip. Electronically signed by: Sam Saini MD 11/05/2024 11:13 AM EDT KUB X-Ray 11/06/24 09:20 IMPRESSION: Large amount of stool throughout the colon. Electronically signed by: Sam Saini MD 11/06/2024 09:34 AM EDT RP Head CT 11/08/24 14:58 IMPRESSION: Left frontal soft tissue swelling. No acute intracranial abnormality. Electronically signed by: Sam Saini MD 11/08/2024 03:18 PM EDT RP Medications Medications Current Medications Acetaminophen (Acetaminophen 325 Mg Tablet) 650 mg PO Q6H PRN PRN Reason: Headache/Pain, Scale 1-10 Last Admin: 11/10/24 22:34 Dose: 650 mg Al Hydroxide/Mg Hydroxide (Magnesium Hydrox/Alum Hydrox 30 Ml Oral.Susp) 30 ml PO Q6H PRN PRN Reason: Heartburn/Nausea Last Admin: 11/10/24 13:41 Dose: 30 ml Albuterol Sulfate (Albuterol Sulfate 90 Mcg 8 Gm Inhaler) 2 puff INHALE Q4H PRN PRN Reason: Shortness Of Breath Or Wheezin Amlodipine Besylate (Amlodipine Besylate 2.5 Mg Tablet) 2.5 mg PO DAILY [facility]; Protocol Last Admin: 11/10/24 08:18 Dose: 2.5 mg Atorvastatin Calcium (Atorvastatin Calcium 20 Mg Tablet) 20 mg PO DAILY [facility] Last Admin: 11/10/24 08:02 Dose: 20 mg Bisacodyl (Bisacodyl 10 Mg Supp.Rect) 10 mg [place] BEDTIME PRN PRN Reason: Constipation Last Admin: 11/04/24 20:37 Dose: 10 mg Carbamazepine (Carbamazepine 200 Mg Tablet) 200 mg PO BID [facility] Last Admin: 11/10/24 20:19 Dose: 200 mg Dicyclomine HCl (Dicyclomine Hcl 10 Mg Capsule) 10 mg PO Q4H PRN PRN Reason: abdominal cramping Last Admin: 11/10/24 14:58 Dose: 10 mg Docusate Sodium (Docusate Sodium 100 Mg Capsule) 100 mg PO BID [facility] Last Admin: 11/10/24 20:20 Dose: 100 mg Duloxetine HCl (Duloxetine Hcl 60 Mg Capsule.Dr) 60 mg PO DAILY [facility] Last Admin: 11/10/24 08:02 Dose: 60 mg Fluticasone/Vilanterol (Fluticasone/Vilanterol 100/25 Blst.W.Dev) 1 puff INHALE RDAILY [facility] Last Admin: 11/10/24 08:21 Dose: 1 puff Gabapentin (Gabapentin 100 Mg Capsule) 100 mg PO TID [facility] Last Admin: 11/10/24 20:21 Dose: 100 mg Glipizide (Glipizide Xl 2.5 Mg Tab.Er.24) 2.5 mg PO DAILY [facility] Last Admin: 11/10/24 08:03 Dose: 2.5 mg Insulin Human Lispro (Insulin Lispro 100 Unit/Ml 3 Ml Vial) 0 unit SUBCUT TIDAC [facility]; Protocol Last Admin: 11/10/24 16:35 Dose: Not Given Lisinopril (Lisinopril 2.5 Mg Tablet) 2.5 mg PO DAILY [facility]; Protocol Last Admin: 11/10/24 08:18 Dose: 2.5 mg Magnesium Hydroxide (Milk Of Magnesia 30 Ml Oral.Susp) 30 ml PO DAILY PRN PRN Reason: Constipation Last Admin: 11/04/24 16:49 Dose: 30 ml Mirtazapine (Mirtazapine 30 Mg Tablet) 30 mg PO BEDTIME [facility] Last Admin: 11/10/24 20:21 Dose: 30 mg Omeprazole (Omeprazole 20 Mg Capsule.Dr) 20 mg PO BID@0630,1630 [facility] Last Admin: 11/11/24 05:32 Dose: 20 mg Ondansetron HCl (Ondansetron Odt 4 Mg Tab.Rapdis) 4 mg TRANSLINGU Q4H PRN PRN Reason: Nausea and Vomiting Last Admin: 11/10/24 08:18 Dose: 4 mg Polyethylene Glycol (Polyethylene Glycol 3350 17 Gm Powd.Pack) 17 gm PO BID [facility] Last Admin: 11/10/24 20:24 Dose: Not Given Senna (Sennosides 8.6 Mg Tablet) 17.2 mg PO BEDTIME [facility] On Hold: 11/06/24 16:27 Last Admin: 11/05/24 19:39 Dose: 17.2 mg Simethicone (Simethicone 80 Mg Tab.Chew) 80 mg PO QIDWMHS [facility] Last Admin: 11/10/24 20:18 Dose: 80 mg Sitagliptin Phosphate (Sitagliptin Phosphate 25 Mg Tablet) 25 mg PO DAILY [facility] Last Admin: 11/10/24 08:03 Dose: 25 mg Trazodone HCl (Trazodone Hcl 50 Mg Tablet) 50 mg PO BEDTIME MRX1 PRN PRN Reason: Insomnia Last Admin: 11/10/24 22:34 Dose: 50 mg Allergies Allergies Allergy/AdvReac Type Severity Reaction Status Date / Time ampicillin Allergy Rash Verified 10/20/24 19:28 morphine Allergy Rash Verified 10/20/24 19:28 Penicillins Allergy Rash Verified 10/20/24 19:28 pork derived (porcine) Allergy Vomiting Verified 11/10/24 17:49 lactose AdvReac Flatulence Verified 11/10/24 17:49 Assessment & Plan Assessment & Plan (1) MDD (major depressive disorder), recurrent episode, moderate: Status: Acute Code(s): F33.1 - Major depressive disorder, recurrent, moderate (2) Anxiety: Status: Acute Code(s): F41.9 - Anxiety disorder, unspecified (3) RLS (restless legs syndrome): Status: Acute Code(s): G25.81 - Restless legs syndrome Plan Fall with head laceration/Agitation Wound repaired in the ED with Dermabond CT head and neck negative for any fracture 11/04/2024 Patient with increased agitation, elevated BP from baseline and facial swelling Repeat Head CT 11/09/2023 demonstrated Left frontal soft tissue swelling. No acute intracranial abnormality. Tylenol as needed for pain Anxiety with suicidal ideation No PRN anxiety medications ordered due to risk for falling. Chronic abdominal plain/gastroparesis, chronic mild gastritis, history of diverticulosis/Constipation Patient is at [facility], she has had Botox injections in the past last in March 2024 Patient had a recent upper endoscopy negative for H pylori or any abnormalities Continues on duloxetine, may help with chronic pain. Continues with omeprazole twice daily Avoid opiates and anticholinergics Restless leg syndrome Patient continues on gabapentin and Mirapex twice daily Hypertension/hyperlipidemia Continue atorvastatin, restart lisinopril 2.5 mgs in am, and amlodipine 2.5 mgs at hs. Blood pressure stable 11/09: no change - defer initiation of any PRN medications to the primary team due to falls risk 11/10: pacing continues, patient refusing Bentyl 11/11 start pramipexole for RLS as it may also boost antidepressant effect. will also add b6 for rls. continue all other medications. Reason for continued inpatient stay Substantial Risk for: inability to function Time Spent With Patient Time: Total time managing care of this patient today ____ minutes.
[2024-11-11 11:24] LABS: Glucose, Whole Blood 140 mg/dL (60-115)
[2024-11-11] MEDS: Fluticasone/Vilanterol 100/25 BLST.W.DEV 1 PUFF INHALE (12:04)
[2024-11-11 16:22] LABS: Glucose, Whole Blood 130 mg/dL (60-115)
[2024-11-11 20:00] VITALS: BP 120/58; PULSE 88; RESP 18; TEMP 37; O2SAT 98
[2024-11-11 20:31] LABS: Glucose, Whole Blood 194 mg/dL (60-115)
[2024-11-12 06:41] LABS: Glucose, Whole Blood 171 mg/dL (60-115)
[2024-11-12 08:00] VITALS: BP 149/61; PULSE 86; RESP 16; O2SAT 97
[2024-11-12] MEDS: Fluticasone/Vilanterol 100/25 BLST.W.DEV 1 PUFF INHALE (08:06)
[2024-11-12 11:25] LABS: Glucose, Whole Blood 121 mg/dL (60-115)
[2024-11-12 16:24] LABS: Glucose, Whole Blood 170 mg/dL (60-115)
--- NOTE | 2024-11-12 18:13 | HO.PSYCHPN ---
Subjective Subjective Date of Service: 11/12/24 Reason For Visit: SI with plan to OD on medications, increased anxie Subjective Notes: Conditional Voluntary Interim History: Pt slept through the night. She appears less restless, but when asked does have number of complaints. She was resting without any acute physical discomfort prior to this chief underwriter greeting her but upon asking pt reports abdominal pain. This has been ongoing prior to coming to the hospital. Currently hospitalist recommending bentyl. Mental Status Exam Mental Status Exam Narrative: Appearance:casual attire, bruises on face Behavior: frantic stance Orientation: alert, generally oriented to person, place, time Memory: grossly intact to recent/remote events Attention: able to attend to the encounter discussion Psychomotor Function: pacing Speech: normal rate, tone, volume Mood: anxious Affect: anxious Thought Process: perseverative Thought Content: fixation on somatic symptoms; denies SI/HI Hallucinations: denies AVH delusions: somatic preoccupation Insight: impairment Judgment: impairment Impulsivity: none noted Diagnostics Vital Signs (24Hr): Vital Signs - 24 hr 11/11/24 20:00 11/12/24 08:00 Temperature 98.6 F Pulse Rate 88 86 Respiratory Rate 18 16 Blood Pressure 120/58 L 149/61 H Pulse Oximetry 98 97 Oxygen Delivery Method Room Air Room Air BMI result Body Mass Index 23.0 Labs 11/02/24 20:14 11/13/24 11:27 Labs: Laboratory Results - last 48 hr 11/10/24 11/11/24 11/11/24 20:05 06:32 11:17 POC Glucose 126 H 159 H 140 H 11/11/24 11/11/24 11/12/24 16:17 20:14 06:32 POC Glucose 130 H 194 H 171 H 11/12/24 11/12/24 11:19 16:20 POC Glucose 121 H 170 H Imaging Radiology Impressions: ITS Impressions Hip/Pelvis X-Ray 11/05/24 11:00 IMPRESSION: Unremarkable examination of the left hip. Electronically signed by: Sam Saini MD 11/05/2024 11:13 AM EDT RP KUB X-Ray 11/06/24 09:20 IMPRESSION: Large amount of stool throughout the colon. Electronically signed by: Sam Saini MD 11/06/2024 09:34 AM EDT RP Head CT 11/08/24 14:58 IMPRESSION: Left frontal soft tissue swelling. No acute intracranial abnormality. Electronically signed by: Sam Saini MD 11/08/2024 03:18 PM EDT RP Medications Medications Current Medications Acetaminophen (Acetaminophen 325 Mg Tablet) 650 mg PO Q6H PRN PRN Reason: Headache/Pain, Scale 1-10 Last Admin: 11/12/24 10:05 Dose: 650 mg Al Hydroxide/Mg Hydroxide (Magnesium Hydrox/Alum Hydrox 30 Ml Oral.Susp) 30 ml PO Q6H PRN PRN Reason: Heartburn/Nausea Last Admin: 11/10/24 13:41 Dose: 30 ml Albuterol Sulfate (Albuterol Sulfate 90 Mcg 8 Gm Inhaler) 2 puff INHALE Q4H PRN PRN Reason: Shortness Of Breath Or Wheezin Amlodipine Besylate (Amlodipine Besylate 2.5 Mg Tablet) 2.5 mg PO DAILY [facility]; Protocol Last Admin: 11/12/24 08:05 Dose: 2.5 mg Atorvastatin Calcium (Atorvastatin Calcium 20 Mg Tablet) 20 mg PO DAILY [facility] Last Admin: 11/12/24 08:04 Dose: 20 mg Bisacodyl (Bisacodyl 10 Mg Supp.Rect) 10 mg OR BEDTIME PRN PRN Reason: Constipation Last Admin: 11/04/24 20:37 Dose: 10 mg Carbamazepine (Carbamazepine 200 Mg Tablet) 200 mg PO BID [facility] Last Admin: 11/12/24 08:16 Dose: 200 mg Dicyclomine HCl (Dicyclomine Hcl 10 Mg Capsule) 10 mg PO Q4H PRN PRN Reason: abdominal cramping Last Admin: 11/12/24 16:36 Dose: 10 mg Docusate Sodium (Docusate Sodium 100 Mg Capsule) 100 mg PO BID [facility] Last Admin: 11/12/24 08:05 Dose: 100 mg Duloxetine HCl (Duloxetine Hcl 60 Mg Capsule.Dr) 60 mg PO DAILY [facility] Last Admin: 11/12/24 08:04 Dose: 60 mg Fluticasone/Vilanterol (Fluticasone/Vilanterol 100/25 Blst.W.Dev) 1 puff INHALE RDAILY [facility] Last Admin: 11/12/24 08:06 Dose: 1 puff Gabapentin (Gabapentin 100 Mg Capsule) 100 mg PO TID [facility] Last Admin: 11/12/24 15:07 Dose: 100 mg Glipizide (Glipizide Xl 2.5 Mg Tab.Er.24) 2.5 mg PO DAILY [facility] Last Admin: 11/12/24 08:05 Dose: 2.5 mg Insulin Human Lispro (Insulin Lispro 100 Unit/Ml 3 Ml Vial) 0 unit SUBCUT TIDAC [facility]; Protocol Last Admin: 11/12/24 16:35 Dose: 2 unit Lisinopril (Lisinopril 2.5 Mg Tablet) 2.5 mg PO DAILY [facility]; Protocol Last Admin: 11/12/24 08:04 Dose: 2.5 mg Magnesium Hydroxide (Milk Of Magnesia 30 Ml Oral.Susp) 30 ml PO DAILY PRN PRN Reason: Constipation Last Admin: 11/04/24 16:49 Dose: 30 ml Mirtazapine (Mirtazapine 30 Mg Tablet) 30 mg PO BEDTIME [facility] Last Admin: 11/11/24 20:16 Dose: 30 mg Omeprazole (Omeprazole 20 Mg Capsule.Dr) 20 mg PO BID@0630,1630 [facility] Last Admin: 11/12/24 16:36 Dose: 20 mg Ondansetron HCl (Ondansetron Odt 4 Mg Tab.Rapdis) 4 mg TRANSLINGU Q4H PRN PRN Reason: Nausea and Vomiting Last Admin: 11/11/24 14:36 Dose: 4 mg Polyethylene Glycol (Polyethylene Glycol 3350 17 Gm Powd.Pack) 17 gm PO BID [facility] Last Admin: 11/12/24 08:06 Dose: 17 gm Pramipexole Dihydrochloride (Pramipexole Di-Hcl 0.125 Mg Tablet) 0.125 mg PO DAILY [facility] Last Admin: 11/12/24 08:04 Dose: 0.125 mg Pyridoxine HCl (Pyridoxine Hcl (Vitamin B6) 50 Mg Tablet) 50 mg PO DAILY [facility] Last Admin: 11/12/24 08:04 Dose: 50 mg Senna (Sennosides 8.6 Mg Tablet) 17.2 mg PO BEDTIME [facility] On Hold: 11/06/24 16:27 Last Admin: 11/05/24 19:39 Dose: 17.2 mg Simethicone (Simethicone 80 Mg Tab.Chew) 80 mg PO QIDWMHS [facility] Last Admin: 11/12/24 12:35 Dose: 80 mg Sitagliptin Phosphate (Sitagliptin Phosphate 25 Mg Tablet) 25 mg PO DAILY [facility] Last Admin: 11/12/24 08:04 Dose: 25 mg Trazodone HCl (Trazodone Hcl 50 Mg Tablet) 50 mg PO BEDTIME MRX1 PRN PRN Reason: Insomnia Last Admin: 11/11/24 20:16 Dose: 50 mg Allergies Allergies Allergy/AdvReac Type Severity Reaction Status Date / Time ampicillin Allergy Rash Verified 10/20/24 19:28 morphine Allergy Rash Verified 10/20/24 19:28 Penicillins Allergy Rash Verified 10/20/24 19:28 pork derived (porcine) Allergy Vomiting Verified 11/10/24 17:49 lactose AdvReac Flatulence Verified 11/10/24 17:49 Assessment & Plan Assessment & Plan (1) MDD (major depressive disorder), recurrent episode, moderate: Status: Acute Code(s): F33.1 - Major depressive disorder, recurrent, moderate (2) Anxiety: Status: Acute Code(s): F41.9 - Anxiety disorder, unspecified (3) RLS (restless legs syndrome): Status: Acute Code(s): G25.81 - Restless legs syndrome Plan Fall with head laceration/Agitation Wound repaired in the ED with Dermabond CT head and neck negative for any fracture 11/04/2024 Patient with increased agitation, elevated BP from baseline and facial swelling Repeat Head CT 11/09/2023 demonstrated Left frontal soft tissue swelling. No acute intracranial abnormality. Tylenol as needed for pain Anxiety with suicidal ideation No PRN anxiety medications ordered due to risk for falling. Chronic abdominal plain/gastroparesis, chronic mild gastritis, history of diverticulosis/Constipation Patient is at [facility], she has had Botox injections in the past last in March 2024 Patient had a recent upper endoscopy negative for H pylori or any abnormalities Continues on duloxetine, may help with chronic pain. Continues with omeprazole twice daily Avoid opiates and anticholinergics Restless leg syndrome Patient continues on gabapentin and Mirapex twice daily Hypertension/hyperlipidemia Continue atorvastatin, restart lisinopril 2.5 mgs in am, and amlodipine 2.5 mgs at hs. Blood pressure stable 11/09: no change - defer initiation of any PRN medications to the primary team due to falls risk 11/10: pacing continues, patient refusing Bentyl 11/11 start pramipexole for RLS as it may also boost antidepressant effect. will also add b6 for rls. continue all other medications. 11/12 continue tx. Reason for continued inpatient stay Substantial Risk for: inability to function Time Spent With Patient Time: Total time managing care of this patient today ____ minutes.
[2024-11-12 20:00] VITALS: BP 137/68; PULSE 70; RESP 17; TEMP 36.1; O2SAT 96
[2024-11-13 06:47] LABS: Glucose, Whole Blood 173 mg/dL (60-115)
[2024-11-13 07:55] VITALS: BP 158/83; PULSE 98; RESP 18; TEMP 36.6; O2SAT 94
[2024-11-13] MEDS: Fluticasone/Vilanterol 100/25 BLST.W.DEV 1 PUFF INHALE (08:45)
[2024-11-13 09:51] LABS: Carbamazepine Tegretol 9.1 mcg/mL (5.0-12.0)
[2024-11-13 11:24] LABS: Glucose, Whole Blood 181 mg/dL (60-115)
[2024-11-13 12:01] LABS: Alanine Aminotransferase 21 U/L (0-31); Albumin Level 4.6 g/dL (3.5-5.0); Alkaline Phosphatase 68 U/L (39-117); Anion Gap 13 (12-20); Aspartate Amino Transferase 16 U/L (5-31); Blood Urea Nitrogen 21 mg/dL (9-16); Calcium 9.4 mg/dL (8.4-10.2); Carbon Dioxide 24 mmol/L (22-29); Chloride 95 mmol/L (96-108); Creatinine Clr Calc Pharmacy 39.5; Estimated Glomerular Filt Rate > 60; Potassium 4.8 mmol/L (3.3-5.1); Sodium 127 mmol/L (135-145); Total Protein 7.2 g/dL (6.5-8.0)
--- NOTE | 2024-11-13 14:39 | P.PNPSI_ITS ---
Subjective Subjective Date of Service: 11/13/24 Reason For Visit: SI with plan to OD on medications, increased anxie Subjective Notes: Conditional Voluntary Interim History: Pt slept through the night. Pt reports today actually felt better than any other days. She denies SI/HI. No psychosis or delusions. less RLS with pramipexole and b6. CMP completed, showed hyponatremia 128 (even after correction of elevated BS of 190), urine osmo>100, urine sodium >41. Medication Compliance: Yes Review of Systems Review of Systems Denies any shortness of breath, chest pain, no nausea vomiting or diarrhea reported. Occasional dizziness. Reports chronic abdominal pain. Yes all other systems are reviewed and are negative Mental Status Exam Mental Status Exam Narrative: Appearance:casual attire, bruises on face Behavior: frantic stance Orientation: alert, generally oriented to person, place, time Memory: grossly intact to recent/remote events Attention: able to attend to the encounter discussion Psychomotor Function: pacing Speech: normal rate, tone, volume Mood: anxious Affect: anxious Thought Process: perseverative Thought Content: fixation on somatic symptoms; denies SI/HI Hallucinations: denies AVH delusions: somatic preoccupation Insight: impairment Judgment: impairment Impulsivity: none noted Diagnostics Vital Signs (24Hr): Vital Signs - 24 hr 11/12/24 20:00 11/13/24 07:55 Temperature 97.0 F 97.9 F Pulse Rate 70 98 Respiratory Rate 17 18 Blood Pressure 137/68 158/83 H Pulse Oximetry 96 94 Oxygen Delivery Method Room Air Room Air BMI result Body Mass Index 23.0 Labs 11/02/24 20:14 11/14/24 07:19 Labs: Laboratory Results - last 48 hr 11/11/24 11/11/24 11/12/24 16:17 20:14 06:32 Hold Purple Top Sodium Potassium Chloride Carbon Dioxide Anion Gap BUN Creatinine Estim Creat Clear Calc Estimated GFR POC Glucose 130 H 194 H 171 H Random Glucose Calcium Total Bilirubin AST ALT Alkaline Phosphatase Total Protein Albumin Carbamazepine 11/12/24 11/12/24 11/13/24 11:19 16:20 06:41 Hold Purple Top Sodium Potassium Chloride Carbon Dioxide Anion Gap BUN Creatinine Estim Creat Clear Calc Estimated GFR POC Glucose 121 H 170 H 173 H Random Glucose Calcium Total Bilirubin AST ALT Alkaline Phosphatase Total Protein Albumin Carbamazepine 11/13/24 11/13/24 11/13/24 09:09 11:20 11:27 Hold Purple Top Sodium 127 L Potassium 4.8 Chloride 95 L Carbon Dioxide 24 Anion Gap 13 BUN 21 H Creatinine 0.85 Estim Creat Clear Calc 39.5 Estimated GFR > 60 POC Glucose 181 H Random Glucose 191 H Calcium 9.4 Total Bilirubin 0.5 AST 16 ALT 21 Alkaline Phosphatase 68 Total Protein 7.2 Albumin 4.6 Carbamazepine 9.1 11/13/24 11:30 Hold Purple Top SEE NOTE Sodium Potassium Chloride Carbon Dioxide Anion Gap BUN Creatinine Estim Creat Clear Calc Estimated GFR POC Glucose Random Glucose Calcium Total Bilirubin AST ALT Alkaline Phosphatase Total Protein Albumin Carbamazepine Imaging Radiology Impressions: ITS Impressions Hip/Pelvis X-Ray 11/05/24 11:00 IMPRESSION: Unremarkable examination of the left hip. Electronically signed by: Sam Saini MD 11/05/2024 11:13 AM EDT RP KUB X-Ray 11/06/24 09:20 IMPRESSION: Large amount of stool throughout the colon. Electronically signed by: Sam Saini MD 11/06/2024 09:34 AM EDT RP Head CT 11/08/24 14:58 IMPRESSION: Left frontal soft tissue swelling. No acute intracranial abnormality. Electronically signed by: Sam Saini MD 11/08/2024 03:18 PM EDT RP Medications Medications Current Medications Acetaminophen (Acetaminophen 325 Mg Tablet) 650 mg PO Q6H PRN PRN Reason: Headache/Pain, Scale 1-10 Last Admin: 11/12/24 10:05 Dose: 650 mg Al Hydroxide/Mg Hydroxide (Magnesium Hydrox/Alum Hydrox 30 Ml Oral.Susp) 30 ml PO Q6H PRN PRN Reason: Heartburn/Nausea Last Admin: 11/10/24 13:41 Dose: 30 ml Albuterol Sulfate (Albuterol Sulfate 90 Mcg 8 Gm Inhaler) 2 puff INHALE Q4H PRN PRN Reason: Shortness Of Breath Or Wheezin Amlodipine Besylate (Amlodipine Besylate 2.5 Mg Tablet) 2.5 mg PO DAILY [facility]; Protocol Last Admin: 11/13/24 08:36 Dose: 2.5 mg Atorvastatin Calcium (Atorvastatin Calcium 20 Mg Tablet) 20 mg PO DAILY [facility] Last Admin: 11/13/24 08:36 Dose: 20 mg Bisacodyl (Bisacodyl 10 Mg Supp.Rect) 10 mg HI BEDTIME PRN PRN Reason: Constipation Last Admin: 11/04/24 20:37 Dose: 10 mg Carbamazepine (Carbamazepine 200 Mg Tablet) 200 mg PO BID [facility] Last Admin: 11/13/24 08:37 Dose: 200 mg Dicyclomine HCl (Dicyclomine Hcl 10 Mg Capsule) 10 mg PO Q4H PRN PRN Reason: abdominal cramping Last Admin: 11/12/24 16:36 Dose: 10 mg Docusate Sodium (Docusate Sodium 100 Mg Capsule) 100 mg PO BID [facility] Last Admin: 11/13/24 08:37 Dose: 100 mg Duloxetine HCl (Duloxetine Hcl 60 Mg Capsule.Dr) 60 mg PO DAILY [facility] Last Admin: 11/13/24 08:37 Dose: 60 mg Fluticasone/Vilanterol (Fluticasone/Vilanterol 100/25 Blst.W.Dev) 1 puff INHALE RDAILY [facility] Last Admin: 11/13/24 08:45 Dose: 1 puff Gabapentin (Gabapentin 100 Mg Capsule) 100 mg PO TID [facility] Last Admin: 11/13/24 08:37 Dose: 100 mg Glipizide (Glipizide Xl 2.5 Mg Tab.Er.24) 2.5 mg PO DAILY [facility] Last Admin: 11/13/24 08:36 Dose: 2.5 mg Insulin Human Lispro (Insulin Lispro 100 Unit/Ml 3 Ml Vial) 0 unit SUBCUT TIDAC [facility]; Protocol Last Admin: 11/13/24 11:27 Dose: 2 unit Lisinopril (Lisinopril 2.5 Mg Tablet) 2.5 mg PO DAILY [facility]; Protocol Last Admin: 11/13/24 08:36 Dose: 2.5 mg Magnesium Hydroxide (Milk Of Magnesia 30 Ml Oral.Susp) 30 ml PO DAILY PRN PRN Reason: Constipation Last Admin: 11/04/24 16:49 Dose: 30 ml Mirtazapine (Mirtazapine 30 Mg Tablet) 30 mg PO BEDTIME [facility] Last Admin: 11/12/24 20:49 Dose: 30 mg Omeprazole (Omeprazole 20 Mg Capsule.Dr) 20 mg PO BID@0630,1630 [facility] Last Admin: 11/13/24 06:33 Dose: 20 mg Ondansetron HCl (Ondansetron Odt 4 Mg Tab.Rapdis) 4 mg TRANSLINGU Q4H PRN PRN Reason: Nausea and Vomiting Last Admin: 11/11/24 14:36 Dose: 4 mg Polyethylene Glycol (Polyethylene Glycol 3350 17 Gm Powd.Pack) 17 gm PO BID [facility] Last Admin: 11/13/24 08:44 Dose: 17 gm Pramipexole Dihydrochloride (Pramipexole Di-Hcl 0.125 Mg Tablet) 0.125 mg PO DAILY [facility] Last Admin: 11/13/24 08:36 Dose: 0.125 mg Pyridoxine HCl (Pyridoxine Hcl (Vitamin B6) 50 Mg Tablet) 50 mg PO DAILY [facility] Last Admin: 11/13/24 08:37 Dose: 50 mg Senna (Sennosides 8.6 Mg Tablet) 17.2 mg PO BEDTIME [facility] On Hold: 11/06/24 16:27 Last Admin: 11/05/24 19:39 Dose: 17.2 mg Simethicone (Simethicone 80 Mg Tab.Chew) 80 mg PO QIDWMHS [facility] Last Admin: 11/13/24 11:27 Dose: 80 mg Sitagliptin Phosphate (Sitagliptin Phosphate 25 Mg Tablet) 25 mg PO DAILY [facility] Last Admin: 11/13/24 08:36 Dose: 25 mg Trazodone HCl (Trazodone Hcl 50 Mg Tablet) 50 mg PO BEDTIME MRX1 PRN PRN Reason: Insomnia Last Admin: 11/12/24 21:04 Dose: 50 mg Allergies Allergies Allergy/AdvReac Type Severity Reaction Status Date / Time ampicillin Allergy Rash Verified 10/20/24 19:28 morphine Allergy Rash Verified 10/20/24 19:28 Penicillins Allergy Rash Verified 10/20/24 19:28 pork derived (porcine) Allergy Vomiting Verified 11/10/24 17:49 lactose AdvReac Flatulence Verified 11/10/24 17:49 Assessment & Plan Assessment & Plan (1) MDD (major depressive disorder), recurrent episode, moderate: Status: Acute Code(s): F33.1 - Major depressive disorder, recurrent, moderate (2) Anxiety: Status: Acute Code(s): F41.9 - Anxiety disorder, unspecified (3) RLS (restless legs syndrome): Status: Acute Code(s): G25.81 - Restless legs syndrome Plan Fall with head laceration/Agitation Wound repaired in the ED with Dermabond CT head and neck negative for any fracture 11/04/2024 Patient with increased agitation, elevated BP from baseline and facial swelling Repeat Head CT 11/09/2023 demonstrated Left frontal soft tissue swelling. No acute intracranial abnormality. Tylenol as needed for pain Anxiety with suicidal ideation No PRN anxiety medications ordered due to risk for falling. Chronic abdominal plain/gastroparesis, chronic mild gastritis, history of diverticulosis/Constipation Patient is at [facility], she has had Botox injections in the past last in March 2024 Patient had a recent upper endoscopy negative for H pylori or any abnormalities Continues on duloxetine, may help with chronic pain. Continues with omeprazole twice daily Avoid opiates and anticholinergics Restless leg syndrome Patient continues on gabapentin and Mirapex twice daily Hypertension/hyperlipidemia Continue atorvastatin, restart lisinopril 2.5 mgs in am, and amlodipine 2.5 mgs at hs. Blood pressure stable 11/09: no change - defer initiation of any PRN medications to the primary team due to falls risk 11/10: pacing continues, patient refusing Bentyl 11/11 start pramipexole for RLS as it may also boost antidepressant effect. will also add b6 for rls. continue all other medications. 11/12 continue tx. 11/13 CMP showed hyponatremia, hypotonic hyponatremia, urine osmo >100, urine sodium 41. will d/c carbamazepine which was recently started. fluid restriction for now. nephrology consult ordered. Reason for continued inpatient stay Substantial Risk for: inability to function Time Spent With Patient Time: Total time managing care of this patient today ____ minutes.
[2024-11-13 15:56] LABS: Osmolality, Serum 271 mosm/kg (281-305)
[2024-11-13 16:16] LABS: Glucose, Whole Blood 177 mg/dL (60-115)
[2024-11-13] MEDS: Magnesium Hydrox/Alum Hydrox 30 ML ORAL.SUSP PO (16:28)
[2024-11-13 20:00] VITALS: BP 141/73; PULSE 91; RESP 16; TEMP 36.4; O2SAT 92
[2024-11-13] MEDS: Sodium Chloride Tab 1 GM TABLET PO (20:31)
[2024-11-13 20:47] LABS: Glucose, Whole Blood 179 mg/dL (60-115)
[2024-11-14 06:35] LABS: Glucose, Whole Blood 170 mg/dL (60-115)
[2024-11-14 08:00] VITALS: BP 151/67; PULSE 88; RESP 14; TEMP 35.7; O2SAT 96
[2024-11-14] MEDS: Sodium Chloride Tab 1 GM TABLET PO ×2 (08:07→19:49)
[2024-11-14] MEDS: Fluticasone/Vilanterol 100/25 BLST.W.DEV 1 PUFF INHALE (08:08)
[2024-11-14 08:17] LABS: Anion Gap 13 (12-20); Blood Urea Nitrogen 26 mg/dL (9-16); Calcium 9.5 mg/dL (8.4-10.2); Carbon Dioxide 27 mmol/L (22-29); Chloride 97 mmol/L (96-108); Creatinine Clr Calc Pharmacy 36.1; Estimated Glomerular Filt Rate 59; Potassium 5.0 mmol/L (3.3-5.1); Sodium 132 mmol/L (135-145)
[2024-11-14 08:22] VITALS: BMI 23.1
--- NOTE | 2024-11-14 10:15 | PM.CNNEP ---
History of Present Illness Reason for Consult Consult date: 11/14/24 Chief Complaint Chief complaint: SI with plan to OD on medications, increased anxie History of Present Illness Narrative: 78 y/o female admitted to [facility] for anxiety and suicidal ideation since 10/20. Nephrology consulted for new-onset hyponatremia. serum sodium: 11/02 is 133 11/04 is 134 11/13 is 127 11/14 is 132 patietn is taking duloxetine, mirtazapine, trazodone and pramipexole. patient was also started on salt tablets yesterday evening, 1gm BID patient states she feels ok today. NO new complaints/concerns. Denies drinking excessive fluids- states yesterday was told to reduce her fluid intake and did so. No nausea, pain. no shortness of breath. no s/s of infection. Urine osm 451, urine sodium 41 Review of Systems Review of Systems Yes all other systems are reviewed and are negative PMF Past Medical History Medical History (Updated 11/14/24 @ 11:37 by Gerri Dave, DNP, [employer]) Migraines Diabetes Hypertension Anxiety Social History Social History Household Members: None Housing: House Do you presently have visiting nurse or other home services: Yes Patient Tobacco Use Status: Never used Tobacco Currently Displaying Signs/Symptoms of Drug Intoxication Withdrawal: No Have you been hit, kicked, punched, or otherwise hurt by someone within the past year? If so, by whom?: No Do you feel safe in your current relationship?: No Current Relationship Is there a partner from a previous relationship who is making you feel unsafe now?: No Are you made to feel afraid or neglected: No Spiritual Healthcare Practices: meditation and breathing Advance Directives: No Advance Directives Information Provided: No Do you have thoughts of harming others: None Do you have a plan to hurt others: No Plan Recently lost weight without trying: No Eating poorly because of decreased appetite: No Nutrition Risks: No Nutritional Risk Patient : No : No Poor oral hygiene: No service: No Sexual orientation: Straight/Heterosexual Meds Allergies Allergy/AdvReac Type Severity Reaction Status Date / Time ampicillin Allergy Rash Verified 10/20/24 19:28 morphine Allergy Rash Verified 10/20/24 19:28 Penicillins Allergy Rash Verified 10/20/24 19:28 pork derived (porcine) Allergy Vomiting Verified 11/10/24 17:49 lactose AdvReac Flatulence Verified 11/10/24 17:49 Active Medications: Current Medications Acetaminophen (Acetaminophen 325 Mg Tablet) 650 mg PO Q6H PRN PRN Reason: Headache/Pain, Scale 1-10 Last Admin: 11/12/24 10:05 Dose: 650 mg Al Hydroxide/Mg Hydroxide (Magnesium Hydrox/Alum Hydrox 30 Ml Oral.Susp) 30 ml PO Q6H PRN PRN Reason: Heartburn/Nausea Last Admin: 11/13/24 16:28 Dose: 30 ml Albuterol Sulfate (Albuterol Sulfate 90 Mcg 8 Gm Inhaler) 2 puff INHALE Q4H PRN PRN Reason: Shortness Of Breath Or Wheezin Amlodipine Besylate (Amlodipine Besylate 2.5 Mg Tablet) 2.5 mg PO DAILY [facility]; Protocol Last Admin: 11/14/24 08:08 Dose: 2.5 mg Atorvastatin Calcium (Atorvastatin Calcium 20 Mg Tablet) 20 mg PO DAILY [facility] Last Admin: 11/14/24 08:08 Dose: 20 mg Bisacodyl (Bisacodyl 10 Mg Supp.Rect) 10 mg RI BEDTIME PRN PRN Reason: Constipation Last Admin: 11/04/24 20:37 Dose: 10 mg Dicyclomine HCl (Dicyclomine Hcl 10 Mg Capsule) 10 mg PO Q4H PRN PRN Reason: abdominal cramping Last Admin: 11/12/24 16:36 Dose: 10 mg Docusate Sodium (Docusate Sodium 100 Mg Capsule) 100 mg PO BID [facility] Last Admin: 11/14/24 08:08 Dose: 100 mg Duloxetine HCl (Duloxetine Hcl 60 Mg Capsule.Dr) 60 mg PO DAILY [facility] Last Admin: 11/14/24 08:07 Dose: 60 mg Fluticasone/Vilanterol (Fluticasone/Vilanterol 100/25 Blst.W.Dev) 1 puff INHALE RDAILY [facility] Last Admin: 11/14/24 08:08 Dose: 1 puff Gabapentin (Gabapentin 100 Mg Capsule) 100 mg PO TID [facility] Last Admin: 11/14/24 08:08 Dose: 100 mg Glipizide (Glipizide Xl 2.5 Mg Tab.Er.24) 2.5 mg PO DAILY [facility] Last Admin: 11/14/24 08:08 Dose: 2.5 mg Insulin Human Lispro (Insulin Lispro 100 Unit/Ml 3 Ml Vial) 0 unit SUBCUT TIDAC [facility]; Protocol Last Admin: 11/14/24 07:33 Dose: 2 unit Lisinopril (Lisinopril 2.5 Mg Tablet) 2.5 mg PO DAILY [facility]; Protocol Last Admin: 11/14/24 08:07 Dose: 2.5 mg Magnesium Hydroxide (Milk Of Magnesia 30 Ml Oral.Susp) 30 ml PO DAILY PRN PRN Reason: Constipation Last Admin: 11/04/24 16:49 Dose: 30 ml Mirtazapine (Mirtazapine 30 Mg Tablet) 30 mg PO BEDTIME [facility] Last Admin: 11/13/24 20:31 Dose: 30 mg Omeprazole (Omeprazole 20 Mg Capsule.Dr) 20 mg PO BID@0630,1630 [facility] Last Admin: 11/14/24 06:23 Dose: 20 mg Ondansetron HCl (Ondansetron Odt 4 Mg Tab.Rapdis) 4 mg TRANSLINGU Q4H PRN PRN Reason: Nausea and Vomiting Last Admin: 11/14/24 08:43 Dose: 4 mg Polyethylene Glycol (Polyethylene Glycol 3350 17 Gm Powd.Pack) 17 gm PO BID [facility] Last Admin: 11/14/24 08:13 Dose: 17 gm Pramipexole Dihydrochloride (Pramipexole Di-Hcl 0.125 Mg Tablet) 0.125 mg PO DAILY [facility] Last Admin: 11/14/24 08:08 Dose: 0.125 mg Pyridoxine HCl (Pyridoxine Hcl (Vitamin B6) 50 Mg Tablet) 50 mg PO DAILY [facility] Last Admin: 11/14/24 08:07 Dose: 50 mg Senna (Sennosides 8.6 Mg Tablet) 17.2 mg PO BEDTIME [facility] On Hold: 11/06/24 16:27 Last Admin: 11/05/24 19:39 Dose: 17.2 mg Simethicone (Simethicone 80 Mg Tab.Chew) 80 mg PO QIDWMHS [facility] Last Admin: 11/14/24 08:07 Dose: 80 mg Sitagliptin Phosphate (Sitagliptin Phosphate 25 Mg Tablet) 25 mg PO DAILY [facility] Last Admin: 11/14/24 08:07 Dose: 25 mg Sodium Chloride (Sodium Chloride Tab 1 Gm Tablet) 1 gm PO BID [facility] Last Admin: 11/14/24 08:07 Dose: 1 gm Trazodone HCl (Trazodone Hcl 50 Mg Tablet) 50 mg PO BEDTIME MRX1 PRN PRN Reason: Insomnia Last Admin: 11/12/24 21:04 Dose: 50 mg Home Medications ?Medication ?Instructions ?Recorded ?Confirmed ?Last Taken ?Type atorvastatin 20 mg tablet 20 mg PO DAILY 04/01/23 10/21/24 03/31/23 21:00 History ondansetron HCl 4 mg tablet 4 mg PO Q8H PRN nausea 04/01/23 10/21/24 03/31/23 21:00 History pantoprazole 40 mg tablet,delayed 40 mg PO BID@0630,1630 04/01/23 10/21/24 03/31/23 21:00 History release sitagliptin phosphate 100 mg 100 mg PO DAILY 04/01/23 10/21/24 03/31/23 21:00 History tablet (Januvia) albuterol sulfate 90 mcg/actuation 2 puff inhalation Q4-6H PRN 10/21/24 10/21/24 Unknown History aerosol inhaler Shortness Of Breath Or Wheezing amlodipine 2.5 mg tablet 2.5 mg PO DAILY 10/21/24 10/21/24 Unknown History duloxetine 20 mg capsule,delayed 40 mg PO DAILY 10/21/24 10/21/24 Unknown History release fluticasone furoate 100 1 ea inhalation DAILY 10/21/24 10/21/24 Unknown History mcg-vilanterol 25 mcg/dose inhalation powder (Breo Ellipta) gabapentin 100 mg capsule 100 mg PO TID 10/21/24 10/21/24 Unknown History gabapentin 600 mg tablet 600 mg PO BEDTIME 10/21/24 10/21/24 Unknown History glipizide 2.5 mg tablet, extended 2.5 mg PO DAILY 10/21/24 10/21/24 Unknown History release 24 hr lamotrigine 100 mg tablet 100 mg PO DAILY 10/21/24 10/21/24 Unknown History lisinopril 20 mg tablet 20 mg PO DAILY 10/21/24 10/21/24 Unknown History lorazepam 0.5 mg tablet 0.25 mg PO BID 10/21/24 10/21/24 Unknown History mirtazapine 45 mg tablet 45 mg PO BEDTIME 10/21/24 10/21/24 Unknown History olanzapine 2.5 mg tablet 2.5 mg PO BEDTIME 10/21/24 10/21/24 Unknown History pramipexole 0.25 mg tablet 0.25 mg PO BID 10/21/24 10/21/24 Unknown History propranolol 20 mg tablet 20 mg PO DAILY 10/21/24 10/21/24 Unknown History Physical Exam Vital Signs: Last Vital Signs Temp 96.3 F L 11/14/24 08:00 Pulse 88 11/14/24 08:00 Resp 14 11/14/24 08:00 BP 151/67 H 11/14/24 08:00 Pulse Ox 96 11/14/24 08:00 O2 Del Method Room Air 11/14/24 08:00 BMI result Body Mass Index 23.1 Const General: no acute distress, alert and awake Resp Effort & Inspection: normal respiratory effort and able to speak in complete sentences Auscultation: clear to auscultation bilaterally Cardio Rate: regular rate Rhythm: regular rhythm Heart sounds: S1 normal heart sound present and S2 normal heart sound present GI Palpation (GI): Soft to palpation and nontender General: Yes no CVA tenderness Back/Spine/Pelvis Back: no CVA tenderness Skin Rashes: no rashes Extrem General: No edema Results Lab Results 11/02/24 20:14 11/14/24 07:19 Lab results: Chemistry 11/13/24 11/14/24 11:27 07:19 Sodium 127 L 132 L Potassium 4.8 5.0 Carbon Dioxide 24 27 BUN 21 H 26 H Creatinine 0.85 0.93 Calcium 9.4 9.5 Urine Studies 11/13/24 17:02 Urine Osmolality 485 Assessment and Plan (1) Hyponatremia: Status: Acute Plan Hyponatremia likely secodnary to SIADH from psychiatric medication and/or depression. recommend fluid restriction 1.5L/24 hours may discontinue salt tablets given improvement in serum sodium and presence of hypertension Discussed with Dr Rohan Cisneros Date of Service Date of Service: 11/14/24
[2024-11-14 11:38] LABS: Glucose, Whole Blood 132 mg/dL (60-115)
[2024-11-14 16:39] LABS: Glucose, Whole Blood 199 mg/dL (60-115)
--- NOTE | 2024-11-14 19:10 | HO.PSYCHPN ---
Subjective Subjective Date of Service: 11/14/24 Reason For Visit: SI with plan to OD on medications, increased anxie Subjective Notes: Conditional Voluntary Interim History: Pt slept through the night. Pt reports she feels depressed again today. She reports she is not sure why yesterday she felt better but today again not better. She denies SI/HI. CMP completed, showed hyponatremia 128 (even after correction of elevated BS of 190), urine osmo>100, urine sodium >41. Review of Systems Review of Systems Denies any shortness of breath, chest pain, no nausea vomiting or diarrhea reported. Occasional dizziness. Reports chronic abdominal pain. Yes all other systems are reviewed and are negative Mental Status Exam Mental Status Exam Narrative: Appearance:casual attire, bruises on face Behavior: frantic stance Orientation: alert, generally oriented to person, place, time Memory: grossly intact to recent/remote events Attention: able to attend to the encounter discussion Psychomotor Function: pacing Speech: normal rate, tone, volume Mood: anxious Affect: anxious Thought Process: perseverative Thought Content: fixation on somatic symptoms; denies SI/HI Hallucinations: denies AVH delusions: somatic preoccupation Insight: impairment Judgment: impairment Impulsivity: none noted Diagnostics Vital Signs (24Hr): Vital Signs - 24 hr 11/13/24 20:00 11/14/24 08:00 Temperature 97.5 F 96.3 F L Pulse Rate 91 88 Respiratory Rate 16 14 Blood Pressure 141/73 H 151/67 H Pulse Oximetry 92 96 Oxygen Delivery Method Room Air Room Air BMI result Body Mass Index 23.1 Labs 11/02/24 20:14 11/14/24 07:19 Labs: Laboratory Results - last 48 hr 11/13/24 11/13/24 11/13/24 06:41 09:09 11:20 Hold Purple Top Sodium Potassium Chloride Carbon Dioxide Anion Gap BUN Creatinine Estim Creat Clear Calc Estimated GFR POC Glucose 173 H 181 H Random Glucose Osmolality Calcium Total Bilirubin AST ALT Alkaline Phosphatase Total Protein Albumin Urine Osmolality Ur Random Sodium Carbamazepine 9.1 11/13/24 11/13/24 11/13/24 11:27 11:30 15:40 Hold Purple Top SEE NOTE Sodium 127 L Potassium 4.8 Chloride 95 L Carbon Dioxide 24 Anion Gap 13 BUN 21 H Creatinine 0.85 Estim Creat Clear Calc 39.5 Estimated GFR > 60 POC Glucose Random Glucose 191 H Osmolality 271 L Calcium 9.4 Total Bilirubin 0.5 AST 16 ALT 21 Alkaline Phosphatase 68 Total Protein 7.2 Albumin 4.6 Urine Osmolality Ur Random Sodium Carbamazepine 11/13/24 11/13/24 11/13/24 16:06 17:02 20:40 Hold Purple Top Sodium Potassium Chloride Carbon Dioxide Anion Gap BUN Creatinine Estim Creat Clear Calc Estimated GFR POC Glucose 177 H 179 H Random Glucose Osmolality Calcium Total Bilirubin AST ALT Alkaline Phosphatase Total Protein Albumin Urine Osmolality 485 Ur Random Sodium 41.0 Carbamazepine 11/14/24 11/14/24 11/14/24 06:25 07:19 11:34 Hold Purple Top Sodium 132 L Potassium 5.0 Chloride 97 Carbon Dioxide 27 Anion Gap 13 BUN 26 H Creatinine 0.93 Estim Creat Clear Calc 36.1 Estimated GFR 59 POC Glucose 170 H 132 H Random Glucose 193 H Osmolality Calcium 9.5 Total Bilirubin AST ALT Alkaline Phosphatase Total Protein Albumin Urine Osmolality Ur Random Sodium Carbamazepine 11/14/24 15:59 Hold Purple Top Sodium Potassium Chloride Carbon Dioxide Anion Gap BUN Creatinine Estim Creat Clear Calc Estimated GFR POC Glucose 199 H Random Glucose Osmolality Calcium Total Bilirubin AST ALT Alkaline Phosphatase Total Protein Albumin Urine Osmolality Ur Random Sodium Carbamazepine Imaging Radiology Impressions: ITS Impressions Hip/Pelvis X-Ray 11/05/24 11:00 IMPRESSION: Unremarkable examination of the left hip. Electronically signed by: Sam Saini MD 11/05/2024 11:13 AM EDT RP KUB X-Ray 11/06/24 09:20 IMPRESSION: Large amount of stool throughout the colon. Electronically signed by: Sam Saini MD 11/06/2024 09:34 AM EDT RP Head CT 11/08/24 14:58 IMPRESSION: Left frontal soft tissue swelling. No acute intracranial abnormality. Electronically signed by: Sam Saini MD 11/08/2024 03:18 PM EDT RP Medications Medications Current Medications Acetaminophen (Acetaminophen 325 Mg Tablet) 650 mg PO Q6H PRN PRN Reason: Headache/Pain, Scale 1-10 Last Admin: 11/12/24 10:05 Dose: 650 mg Al Hydroxide/Mg Hydroxide (Magnesium Hydrox/Alum Hydrox 30 Ml Oral.Susp) 30 ml PO Q6H PRN PRN Reason: Heartburn/Nausea Last Admin: 11/13/24 16:28 Dose: 30 ml Albuterol Sulfate (Albuterol Sulfate 90 Mcg 8 Gm Inhaler) 2 puff INHALE Q4H PRN PRN Reason: Shortness Of Breath Or Wheezin Amlodipine Besylate (Amlodipine Besylate 2.5 Mg Tablet) 2.5 mg PO DAILY [facility]; Protocol Last Admin: 11/14/24 08:08 Dose: 2.5 mg Atorvastatin Calcium (Atorvastatin Calcium 20 Mg Tablet) 20 mg PO DAILY [facility] Last Admin: 11/14/24 08:08 Dose: 20 mg Bisacodyl (Bisacodyl 10 Mg Supp.Rect) 10 mg UT BEDTIME PRN PRN Reason: Constipation Last Admin: 11/04/24 20:37 Dose: 10 mg Dicyclomine HCl (Dicyclomine Hcl 10 Mg Capsule) 10 mg PO Q4H PRN PRN Reason: abdominal cramping Last Admin: 11/14/24 16:41 Dose: 10 mg Docusate Sodium (Docusate Sodium 100 Mg Capsule) 100 mg PO BID [facility] Last Admin: 11/14/24 08:08 Dose: 100 mg Duloxetine HCl (Duloxetine Hcl 60 Mg Capsule.Dr) 60 mg PO DAILY [facility] Last Admin: 11/14/24 08:07 Dose: 60 mg Fluticasone/Vilanterol (Fluticasone/Vilanterol 100/25 Blst.W.Dev) 1 puff INHALE RDAILY [facility] Last Admin: 11/14/24 08:08 Dose: 1 puff Gabapentin (Gabapentin 100 Mg Capsule) 100 mg PO TID [facility] Last Admin: 11/14/24 15:55 Dose: 100 mg Glipizide (Glipizide Xl 2.5 Mg Tab.Er.24) 2.5 mg PO DAILY [facility] Last Admin: 11/14/24 08:08 Dose: 2.5 mg Insulin Human Lispro (Insulin Lispro 100 Unit/Ml 3 Ml Vial) 0 unit SUBCUT TIDAC [facility]; Protocol Last Admin: 11/14/24 16:41 Dose: 1 unit Lisinopril (Lisinopril 2.5 Mg Tablet) 2.5 mg PO DAILY [facility]; Protocol Last Admin: 11/14/24 08:07 Dose: 2.5 mg Magnesium Hydroxide (Milk Of Magnesia 30 Ml Oral.Susp) 30 ml PO DAILY PRN PRN Reason: Constipation Last Admin: 11/04/24 16:49 Dose: 30 ml Mirtazapine (Mirtazapine 30 Mg Tablet) 30 mg PO BEDTIME [facility] Last Admin: 11/13/24 20:31 Dose: 30 mg Omeprazole (Omeprazole 20 Mg Capsule.Dr) 20 mg PO BID@0630,1630 [facility] Last Admin: 11/14/24 16:41 Dose: 20 mg Ondansetron HCl (Ondansetron Odt 4 Mg Tab.Rapdis) 4 mg TRANSLINGU Q4H PRN PRN Reason: Nausea and Vomiting Last Admin: 11/14/24 08:43 Dose: 4 mg Polyethylene Glycol (Polyethylene Glycol 3350 17 Gm Powd.Pack) 17 gm PO BID [facility] Last Admin: 11/14/24 08:13 Dose: 17 gm Pramipexole Dihydrochloride (Pramipexole Di-Hcl 0.125 Mg Tablet) 0.125 mg PO DAILY [facility] Last Admin: 11/14/24 08:08 Dose: 0.125 mg Pyridoxine HCl (Pyridoxine Hcl (Vitamin B6) 50 Mg Tablet) 50 mg PO DAILY [facility] Last Admin: 11/14/24 08:07 Dose: 50 mg Senna (Sennosides 8.6 Mg Tablet) 17.2 mg PO BEDTIME [facility] On Hold: 11/06/24 16:27 Last Admin: 11/05/24 19:39 Dose: 17.2 mg Simethicone (Simethicone 80 Mg Tab.Chew) 80 mg PO QIDWMHS [facility] Last Admin: 11/14/24 16:41 Dose: 80 mg Sitagliptin Phosphate (Sitagliptin Phosphate 25 Mg Tablet) 25 mg PO DAILY [facility] Last Admin: 11/14/24 08:07 Dose: 25 mg Sodium Chloride (Sodium Chloride Tab 1 Gm Tablet) 1 gm PO BID [facility] Last Admin: 11/14/24 08:07 Dose: 1 gm Trazodone HCl (Trazodone Hcl 50 Mg Tablet) 50 mg PO BEDTIME MRX1 PRN PRN Reason: Insomnia Last Admin: 11/12/24 21:04 Dose: 50 mg Allergies Allergies Allergy/AdvReac Type Severity Reaction Status Date / Time ampicillin Allergy Rash Verified 10/20/24 19:28 morphine Allergy Rash Verified 10/20/24 19:28 Penicillins Allergy Rash Verified 06/29/25 19:28 pork derived (porcine) Allergy Vomiting Verified 11/10/24 17:49 lactose AdvReac Flatulence Verified 11/10/24 17:49 Assessment & Plan Assessment & Plan (1) MDD (major depressive disorder), recurrent episode, moderate: Status: Acute Code(s): F33.1 - Major depressive disorder, recurrent, moderate (2) 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 Barreto is a 78 year-old woman with hx of MDD who was assessed by N at request of her son who called 911 after pt had reported suicidal ideation with plan to OD. In the ED, pt adamantly denied suicidal ideation but reports feeling increasingly more depressed due to involuntary, ongoing movement of lower extremities. She attributes her depressed mood and increase anxious mood to RLS. She has also been treated as tardive akathisia, note that she was previously prescribed abilify. It is noted that she may have iron deficiency due to normocytic anemia which can exacerbate RLS. It is unclear which medications for hyperkinetic movements of the legs are actually helpful and furthermore it is not easily to differentiate whether it is tardive akathisia or RLS. She has been on psychotropic medications that are known to cause akathisia such as abilify. She reports subjective sense of restlessness. Involuntary movement seems to be throughout the day. We will have to do trial of medications that target akathisia such as propanolol and ativan versus medications such as pramipexol for RLS (note that in RLS there is an initial relief with dopamine agonist but can make it worse over time). In addition, will try iron deficiency as it is an underlying cause and exacerbating factor in RLS. PLAN 11/14 continue tx. will monitor before making substantial changes every day. Reason for continued inpatient stay Substantial Risk for: inability to function Time Spent With Patient Time: Total time managing care of this patient today ____ minutes.
[2024-11-14 19:47] VITALS: BP 137/71; PULSE 91; RESP 16; TEMP 36.1; O2SAT 98
[2024-11-14 20:42] LABS: Glucose, Whole Blood 98 mg/dL (60-115)
[2024-11-15 06:32] LABS: Glucose, Whole Blood 199 mg/dL (60-115)
[2024-11-15 07:55] VITALS: BP 139/75; PULSE 89; RESP 18; TEMP 2.5; TEMP 36.5; O2SAT 98
[2024-11-15] MEDS: Sodium Chloride Tab 1 GM TABLET PO ×2 (07:58→20:50)
[2024-11-15] MEDS: Fluticasone/Vilanterol 100/25 BLST.W.DEV 1 PUFF INHALE (08:03)
[2024-11-15] MEDS: Magnesium Hydrox/Alum Hydrox 30 ML ORAL.SUSP PO (09:34)
[2024-11-15 11:49] LABS: Glucose, Whole Blood 155 mg/dL (60-115)
--- NOTE | 2024-11-15 15:48 | P.PNPSI_ITS ---
Subjective Subjective Date of Service: 11/15/24 Reason For Visit: SI with plan to OD on medications, increased anxie Subjective Notes: Conditional Voluntary Interim History: Pt reports she was feeling high, anxious and depressed. She reports she is not feeling well again but unable to articulate. She reports having difficult sleeping last night. repeat Na improved 132, seen by neuprology- recommended fluids restriction and dc of salt tablets. Review of Systems Review of Systems Denies any shortness of breath, chest pain, no nausea vomiting or diarrhea reported. Occasional dizziness. Reports chronic abdominal pain. Yes all other systems are reviewed and are negative Mental Status Exam Mental Status Exam Narrative: Appearance:casual attire, bruises on face Behavior: frantic stance Orientation: alert, generally oriented to person, place, time Memory: grossly intact to recent/remote events Attention: able to attend to the encounter discussion Psychomotor Function: pacing Speech: normal rate, tone, volume Mood: anxious Affect: anxious Thought Process: perseverative Thought Content: fixation on somatic symptoms; denies SI/HI Hallucinations: denies AVH delusions: somatic preoccupation Insight: impairment Judgment: impairment Impulsivity: none noted Diagnostics Vital Signs (24Hr): Vital Signs - 24 hr 11/14/24 19:47 11/15/24 07:55 Temperature 97.0 F 36.5 F L Pulse Rate 91 89 Respiratory Rate 16 18 Blood Pressure 137/71 139/75 Pulse Oximetry 98 98 Oxygen Delivery Method Room Air Room Air BMI result Body Mass Index 23.1 Labs 11/02/24 20:14 11/14/24 07:19 Labs: Laboratory Results - last 48 hr 11/13/24 11/13/24 11/13/24 15:40 16:06 17:02 Sodium Potassium Chloride Carbon Dioxide Anion Gap BUN Creatinine Estim Creat Clear Calc Estimated GFR POC Glucose 177 H Random Glucose Osmolality 271 L Calcium Urine Osmolality 485 Ur Random Sodium 41.0 11/13/24 11/14/24 11/14/24 20:40 06:25 07:19 Sodium 132 L Potassium 5.0 Chloride 97 Carbon Dioxide 27 Anion Gap 13 BUN 26 H Creatinine 0.93 Estim Creat Clear Calc 36.1 Estimated GFR 59 POC Glucose 179 H 170 H Random Glucose 193 H Osmolality Calcium 9.5 Urine Osmolality Ur Random Sodium 11/14/24 11/14/24 11/14/24 11:34 15:59 20:36 Sodium Potassium Chloride Carbon Dioxide Anion Gap BUN Creatinine Estim Creat Clear Calc Estimated GFR POC Glucose 132 H 199 H 98 Random Glucose Osmolality Calcium Urine Osmolality Ur Random Sodium 11/15/24 11/15/24 06:24 11:35 Sodium Potassium Chloride Carbon Dioxide Anion Gap BUN Creatinine Estim Creat Clear Calc Estimated GFR POC Glucose 199 H 155 H Random Glucose Osmolality Calcium Urine Osmolality Ur Random Sodium Imaging Radiology Impressions: ITS Impressions Hip/Pelvis X-Ray 11/05/24 11:00 IMPRESSION: Unremarkable examination of the left hip. Electronically signed by: Sam Saini MD 11/05/2024 11:13 AM EDT RP KUB X-Ray 11/06/24 09:20 IMPRESSION: Large amount of stool throughout the colon. Electronically signed by: Sam Saini MD 11/06/2024 09:34 AM EDT RP Head CT 11/08/24 14:58 IMPRESSION: Left frontal soft tissue swelling. No acute intracranial abnormality. Electronically signed by: Sam Saini MD 11/08/2024 03:18 PM EDT RP Medications Medications Current Medications Acetaminophen (Acetaminophen 325 Mg Tablet) 650 mg PO Q6H PRN PRN Reason: Headache/Pain, Scale 1-10 Last Admin: 11/12/24 10:05 Dose: 650 mg Al Hydroxide/Mg Hydroxide (Magnesium Hydrox/Alum Hydrox 30 Ml Oral.Susp) 30 ml PO Q6H PRN PRN Reason: Heartburn/Nausea Last Admin: 11/15/24 09:34 Dose: 30 ml Albuterol Sulfate (Albuterol Sulfate 90 Mcg 8 Gm Inhaler) 2 puff INHALE Q4H PRN PRN Reason: Shortness Of Breath Or Wheezin Amlodipine Besylate (Amlodipine Besylate 2.5 Mg Tablet) 2.5 mg PO DAILY [facility]; Protocol Last Admin: 11/15/24 07:58 Dose: 2.5 mg Atorvastatin Calcium (Atorvastatin Calcium 20 Mg Tablet) 20 mg PO DAILY [facility] Last Admin: 11/15/24 07:58 Dose: 20 mg Bisacodyl (Bisacodyl 10 Mg Supp.Rect) 10 mg SC BEDTIME PRN PRN Reason: Constipation Last Admin: 11/04/24 20:37 Dose: 10 mg Dicyclomine HCl (Dicyclomine Hcl 10 Mg Capsule) 10 mg PO Q4H PRN PRN Reason: abdominal cramping Last Admin: 11/14/24 16:41 Dose: 10 mg Docusate Sodium (Docusate Sodium 100 Mg Capsule) 100 mg PO BID [facility] Last Admin: 11/15/24 07:58 Dose: 100 mg Duloxetine HCl (Duloxetine Hcl 60 Mg Capsule.Dr) 60 mg PO DAILY [facility] Last Admin: 11/15/24 07:58 Dose: 60 mg Fluticasone/Vilanterol (Fluticasone/Vilanterol 100/25 Blst.W.Dev) 1 puff INHALE RDAILY [facility] Last Admin: 11/15/24 08:03 Dose: 1 puff Gabapentin (Gabapentin 100 Mg Capsule) 100 mg PO TID [facility] Last Admin: 11/15/24 07:58 Dose: 100 mg Glipizide (Glipizide Xl 2.5 Mg Tab.Er.24) 2.5 mg PO DAILY [facility] Last Admin: 11/15/24 07:58 Dose: 2.5 mg Insulin Human Lispro (Insulin Lispro 100 Unit/Ml 3 Ml Vial) 0 unit SUBCUT TIDAC [facility]; Protocol Last Admin: 11/15/24 11:53 Dose: 1 unit Lisinopril (Lisinopril 2.5 Mg Tablet) 2.5 mg PO DAILY [facility]; Protocol Last Admin: 11/15/24 07:57 Dose: 2.5 mg Magnesium Hydroxide (Milk Of Magnesia 30 Ml Oral.Susp) 30 ml PO DAILY PRN PRN Reason: Constipation Last Admin: 11/04/24 16:49 Dose: 30 ml Mirtazapine (Mirtazapine 30 Mg Tablet) 30 mg PO BEDTIME [facility] Last Admin: 11/14/24 19:49 Dose: 30 mg Omeprazole (Omeprazole 20 Mg Capsule.Dr) 20 mg PO BID@0630,1630 [facility] Last Admin: 11/15/24 06:21 Dose: 20 mg Ondansetron HCl (Ondansetron Odt 4 Mg Tab.Rapdis) 4 mg TRANSLINGU Q4H PRN PRN Reason: Nausea and Vomiting Last Admin: 11/15/24 07:58 Dose: 4 mg Polyethylene Glycol (Polyethylene Glycol 3350 17 Gm Powd.Pack) 17 gm PO BID [facility] Last Admin: 11/15/24 12:00 Dose: Not Given Pramipexole Dihydrochloride (Pramipexole Di-Hcl 0.125 Mg Tablet) 0.125 mg PO DAILY [facility] Last Admin: 11/15/24 07:58 Dose: 0.125 mg Pyridoxine HCl (Pyridoxine Hcl (Vitamin B6) 50 Mg Tablet) 50 mg PO DAILY [facility] Last Admin: 11/15/24 07:58 Dose: 50 mg Senna (Sennosides 8.6 Mg Tablet) 17.2 mg PO BEDTIME [facility] On Hold: 11/06/24 16:27 Last Admin: 11/05/24 19:39 Dose: 17.2 mg Simethicone (Simethicone 80 Mg Tab.Chew) 80 mg PO QIDWMHS [facility] Last Admin: 11/15/24 11:55 Dose: 80 mg Sitagliptin Phosphate (Sitagliptin Phosphate 25 Mg Tablet) 25 mg PO DAILY [facility] Last Admin: 11/15/24 07:58 Dose: 25 mg Sodium Chloride (Sodium Chloride Tab 1 Gm Tablet) 1 gm PO BID [facility] Last Admin: 11/15/24 07:58 Dose: 1 gm Trazodone HCl (Trazodone Hcl 50 Mg Tablet) 50 mg PO BEDTIME MRX1 PRN PRN Reason: Insomnia Last Admin: 11/14/24 21:57 Dose: 50 mg Allergies Allergies Allergy/AdvReac Type Severity Reaction Status Date / Time ampicillin Allergy Rash Verified 10/20/24 19:28 morphine Allergy Rash Verified 10/20/24 19:28 Penicillins Allergy Rash Verified 10/20/24 19:28 pork derived (porcine) Allergy Vomiting Verified 11/10/24 17:49 lactose AdvReac Flatulence Verified 11/10/24 17:49 Assessment & Plan Assessment & Plan (1) MDD (major depressive disorder), recurrent episode, moderate: Status: Acute Code(s): F33.1 - Major depressive disorder, recurrent, moderate (2) 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 Barreto is a 78 year-old woman with hx of MDD who was assessed by N at request of her son who called 911 after pt had reported suicidal ideation with plan to OD. In the ED, pt adamantly denied suicidal ideation but reports feeling increasingly more depressed due to involuntary, ongoing movement of lower extremities. She attributes her depressed mood and increase anxious mood to RLS. She has also been treated as tardive akathisia, note that she was previously prescribed abilify. It is noted that she may have iron deficiency due to normocytic anemia which can exacerbate RLS. It is unclear which medications for hyperkinetic movements of the legs are actually helpful and furthermore it is not easily to differentiate whether it is tardive akathisia or RLS. She has been on psychotropic medications that are known to cause akathisia such as abilify. She reports subjective sense of restlessness. Involuntary movement seems to be throughout the day. We will have to do trial of medications that target akathisia such as propanolol and ativan versus medications such as pramipexol for RLS (note that in RLS there is an initial relief with dopamine agonist but can make it worse over time). In addition, will try iron deficiency as it is an underlying cause and exacerbating factor in RLS. PLAN 11/14 continue tx. will monitor before making substantial changes every day. 11/15 continue tx. pt somatically preoccupied. Reason for continued inpatient stay Substantial Risk for: inability to function Time Spent With Patient Time: Total time managing care of this patient today ____ minutes.
[2024-11-15 16:28] LABS: Glucose, Whole Blood 143 mg/dL (60-115)
[2024-11-15 20:00] VITALS: BP 116/64; PULSE 79; RESP 18; TEMP 36.1; O2SAT 98
[2024-11-15 20:57] LABS: Glucose, Whole Blood 138 mg/dL (60-115)
[2024-11-16 06:41] LABS: Glucose, Whole Blood 192 mg/dL (60-115)
[2024-11-16 08:00] VITALS: BP 121/67; PULSE 81; RESP 16; TEMP 36.8; O2SAT 99
[2024-11-16] MEDS: Sodium Chloride Tab 1 GM TABLET PO ×2 (08:09→20:16)
[2024-11-16 11:29] LABS: Glucose, Whole Blood 152 mg/dL (60-115)
[2024-11-16] MEDS: Fluticasone/Vilanterol 100/25 BLST.W.DEV 1 PUFF INHALE (11:49)
[2024-11-16 14:31] LABS: Anion Gap 15 (12-20); Blood Urea Nitrogen 21 mg/dL (9-16); Calcium 9.6 mg/dL (8.4-10.2); Carbon Dioxide 25 mmol/L (22-29); Chloride 99 mmol/L (96-108); Creatinine Clr Calc Pharmacy 38.7; Estimated Glomerular Filt Rate > 60; Potassium 4.7 mmol/L (3.3-5.1); Sodium 134 mmol/L (135-145)
[2024-11-16 14:40] LABS: Glucose, Whole Blood 69 mg/dL (60-115)
[2024-11-16 16:26] LABS: Glucose, Whole Blood 126 mg/dL (60-115)
--- NOTE | 2024-11-16 16:39 | P.PNPSI_ITS ---
Subjective Subjective Date of Service: 11/16/24 Reason For Visit: SI with plan to OD on medications, increased anxie Interim History: Patient reports feeling OK but says I feel like my head is in the clouds. I have tension in my head. Julia's Na is 134 today. Overall improved. Sleep is good. Visible on the unit. No behavioral outbursts. Adherent to medications and salt restriction. No SI. Review of Systems Review of Systems Denies any shortness of breath, chest pain, no nausea vomiting or diarrhea reported. Occasional dizziness. Reports chronic abdominal pain. Yes all other systems are reviewed and are negative Mental Status Exam Mental Status Exam Narrative: Appearance:casual attire, bruises on face Behavior: frantic stance Orientation: alert, generally oriented to person, place, time Memory: grossly intact to recent/remote events Attention: able to attend to the encounter discussion Psychomotor Function: pacing Speech: normal rate, tone, volume Mood: anxious Affect: anxious Thought Process: perseverative Thought Content: fixation on somatic symptoms; denies SI/HI Hallucinations: denies AVH delusions: somatic preoccupation Insight: impairment Judgment: impairment Impulsivity: none noted Diagnostics Vital Signs (24Hr): Vital Signs - 24 hr 11/15/24 20:00 11/16/24 08:00 Temperature 97 F 98.2 F Pulse Rate 79 81 Respiratory Rate 18 16 Blood Pressure 116/64 121/67 Pulse Oximetry 98 99 Oxygen Delivery Method Room Air Room Air BMI result Body Mass Index 23.1 Labs 11/02/24 20:14 11/16/24 13:55 Labs: Laboratory Results - last 48 hr 11/14/24 11/14/24 11/15/24 15:59 20:36 06:24 Sodium Potassium Chloride Carbon Dioxide Anion Gap BUN Creatinine Estim Creat Clear Calc Estimated GFR POC Glucose 199 H 98 199 H Random Glucose Calcium 11/15/24 11/15/24 11/15/24 11:35 16:20 20:49 Sodium Potassium Chloride Carbon Dioxide Anion Gap BUN Creatinine Estim Creat Clear Calc Estimated GFR POC Glucose 155 H 143 H 138 H Random Glucose Calcium 11/16/24 11/16/24 11/16/24 06:35 11:24 13:55 Sodium 134 L Potassium 4.7 Chloride 99 Carbon Dioxide 25 Anion Gap 15 BUN 21 H Creatinine 0.87 Estim Creat Clear Calc 38.7 Estimated GFR > 60 POC Glucose 192 H 152 H Random Glucose 58 L* Calcium 9.6 11/16/24 11/16/24 14:34 16:22 Sodium Potassium Chloride Carbon Dioxide Anion Gap BUN Creatinine Estim Creat Clear Calc Estimated GFR POC Glucose 69 126 H Random Glucose Calcium Imaging Radiology Impressions: ITS Impressions Hip/Pelvis X-Ray 11/05/24 11:00 IMPRESSION: Unremarkable examination of the left hip. Electronically signed by: Sam Saini MD 11/05/2024 11:13 AM EDT RP KUB X-Ray 11/06/24 09:20 IMPRESSION: Large amount of stool throughout the colon. Electronically signed by: Sam Saini MD 11/06/2024 09:34 AM EDT RP Head CT 11/08/24 14:58 IMPRESSION: Left frontal soft tissue swelling. No acute intracranial abnormality. Electronically signed by: Sam Saini MD 11/08/2024 03:18 PM EDT RP Medications Medications Current Medications Acetaminophen (Acetaminophen 325 Mg Tablet) 650 mg PO Q6H PRN PRN Reason: Headache/Pain, Scale 1-10 Last Admin: 11/15/24 16:13 Dose: 650 mg Al Hydroxide/Mg Hydroxide (Magnesium Hydrox/Alum Hydrox 30 Ml Oral.Susp) 30 ml PO Q6H PRN PRN Reason: Heartburn/Nausea Last Admin: 11/15/24 09:34 Dose: 30 ml Albuterol Sulfate (Albuterol Sulfate 90 Mcg 8 Gm Inhaler) 2 puff INHALE Q4H PRN PRN Reason: Shortness Of Breath Or Wheezin Amlodipine Besylate (Amlodipine Besylate 2.5 Mg Tablet) 2.5 mg PO DAILY [facility]; Protocol Last Admin: 11/16/24 08:08 Dose: 2.5 mg Atorvastatin Calcium (Atorvastatin Calcium 20 Mg Tablet) 20 mg PO DAILY [facility] Last Admin: 11/16/24 08:09 Dose: 20 mg Bisacodyl (Bisacodyl 10 Mg Supp.Rect) 10 mg [place] BEDTIME PRN PRN Reason: Constipation Last Admin: 11/04/24 20:37 Dose: 10 mg Dicyclomine HCl (Dicyclomine Hcl 10 Mg Capsule) 10 mg PO Q4H PRN PRN Reason: abdominal cramping Last Admin: 11/15/24 20:50 Dose: 10 mg Docusate Sodium (Docusate Sodium 100 Mg Capsule) 100 mg PO BID [facility] Last Admin: 11/16/24 08:10 Dose: 100 mg Duloxetine HCl (Duloxetine Hcl 60 Mg Capsule.Dr) 60 mg PO DAILY [facility] Last Admin: 11/16/24 08:09 Dose: 60 mg Fluticasone/Vilanterol (Fluticasone/Vilanterol 100/25 Blst.W.Dev) 1 puff INHALE RDAILY [facility] Last Admin: 11/16/24 11:49 Dose: 1 puff Gabapentin (Gabapentin 100 Mg Capsule) 100 mg PO TID [facility] Last Admin: 11/16/24 15:54 Dose: 100 mg Glipizide (Glipizide Xl 2.5 Mg Tab.Er.24) 2.5 mg PO DAILY [facility] Last Admin: 11/16/24 08:09 Dose: 2.5 mg Insulin Human Lispro (Insulin Lispro 100 Unit/Ml 3 Ml Vial) 0 unit SUBCUT TIDAC [facility]; Protocol Last Admin: 11/16/24 11:49 Dose: 2 unit Lisinopril (Lisinopril 2.5 Mg Tablet) 2.5 mg PO DAILY [facility]; Protocol Last Admin: 11/16/24 08:09 Dose: 2.5 mg Magnesium Hydroxide (Milk Of Magnesia 30 Ml Oral.Susp) 30 ml PO DAILY PRN PRN Reason: Constipation Last Admin: 11/04/24 16:49 Dose: 30 ml Mirtazapine (Mirtazapine 30 Mg Tablet) 30 mg PO BEDTIME [facility] Last Admin: 11/15/24 20:50 Dose: 30 mg Omeprazole (Omeprazole 20 Mg Capsule.Dr) 20 mg PO BID@0630,1630 [facility] Last Admin: 11/16/24 15:54 Dose: 20 mg Ondansetron HCl (Ondansetron Odt 4 Mg Tab.Rapdis) 4 mg TRANSLINGU Q4H PRN PRN Reason: Nausea and Vomiting Last Admin: 11/15/24 07:58 Dose: 4 mg Polyethylene Glycol (Polyethylene Glycol 3350 17 Gm Powd.Pack) 17 gm PO BID [facility] Last Admin: 11/16/24 08:09 Dose: 17 gm Pramipexole Dihydrochloride (Pramipexole Di-Hcl 0.125 Mg Tablet) 0.125 mg PO DAILY [facility] Last Admin: 11/16/24 08:09 Dose: 0.125 mg Pyridoxine HCl (Pyridoxine Hcl (Vitamin B6) 50 Mg Tablet) 50 mg PO DAILY [facility] Last Admin: 11/16/24 08:09 Dose: 50 mg Senna (Sennosides 8.6 Mg Tablet) 17.2 mg PO BEDTIME [facility] On Hold: 11/06/24 16:27 Last Admin: 11/05/24 19:39 Dose: 17.2 mg Simethicone (Simethicone 80 Mg Tab.Chew) 80 mg PO QIDWMHS [facility] Last Admin: 11/16/24 11:49 Dose: 80 mg Sitagliptin Phosphate (Sitagliptin Phosphate 25 Mg Tablet) 25 mg PO DAILY [facility] Last Admin: 11/16/24 08:09 Dose: 25 mg Sodium Chloride (Sodium Chloride Tab 1 Gm Tablet) 1 gm PO BID [facility] Last Admin: 11/16/24 08:09 Dose: 1 gm Trazodone HCl (Trazodone Hcl 50 Mg Tablet) 50 mg PO BEDTIME MRX1 PRN PRN Reason: Insomnia Last Admin: 11/15/24 20:50 Dose: 50 mg Allergies Allergies Allergy/AdvReac Type Severity Reaction Status Date / Time ampicillin Allergy Rash Verified 10/20/24 19:28 morphine Allergy Rash Verified 10/20/24 19:28 Penicillins Allergy Rash Verified 10/20/24 19:28 pork derived (porcine) Allergy Vomiting Verified 11/10/24 17:49 lactose AdvReac Flatulence Verified 11/10/24 17:49 Assessment & Plan Assessment & Plan (1) MDD (major depressive disorder), recurrent episode, moderate: Status: Acute Code(s): F33.1 - Major depressive disorder, recurrent, moderate (2) 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 Barreto is a 78 year-old woman with hx of MDD who was assessed by N at request of her son who called 911 after pt had reported suicidal ideation with plan to OD. In the ED, pt adamantly denied suicidal ideation but reports feeling increasingly more depressed due to involuntary, ongoing movement of lower extremities. She attributes her depressed mood and increase anxious mood to RLS. She has also been treated as tardive akathisia, note that she was previously prescribed abilify. It is noted that she may have iron deficiency due to normocytic anemia which can exacerbate RLS. It is unclear which medications for hyperkinetic movements of the legs are actually helpful and furthermore it is not easily to differentiate whether it is tardive akathisia or RLS. She has been on psychotropic medications that are known to cause akathisia such as abilify. She reports subjective sense of restlessness. Involuntary movement seems to be throughout the day. We will have to do trial of medications that target akathisia such as propanolol and ativan versus medications such as pramipexol for RLS (note that in RLS there is an initial relief with dopamine agonist but can make it worse over time). In addition, will try iron deficiency as it is an underlying cause and exacerbating factor in RLS. PLAN 11/14 continue tx. will monitor before making substantial changes every day. 11/15 continue tx. pt somatically preoccupied. 11/16: Continue current management and treatment plan. Reason for continued inpatient stay Substantial Risk for: inability to function, rapid decompensation and med/psych decompensation Time Spent With Patient Time: Total time managing care of this patient today ____ minutes.
[2024-11-16 19:57] VITALS: BP 125/66; PULSE 79; RESP 16; TEMP 36.1; O2SAT 99
[2024-11-16 20:11] LABS: Glucose, Whole Blood 141 mg/dL (60-115)
[2024-11-17 06:39] LABS: Glucose, Whole Blood 177 mg/dL (60-115)
[2024-11-17 08:00] VITALS: BP 141/79; PULSE 95; RESP 18; TEMP 2.5; TEMP 36.5; O2SAT 98
[2024-11-17 08:21] VITALS: BP 142/79
[2024-11-17] MEDS: Sodium Chloride Tab 1 GM TABLET PO ×2 (08:21→20:31)
[2024-11-17 08:22] VITALS: BP 142/79
[2024-11-17] MEDS: Fluticasone/Vilanterol 100/25 BLST.W.DEV 1 PUFF INHALE (08:24)
[2024-11-17] MEDS: Magnesium Hydrox/Alum Hydrox 30 ML ORAL.SUSP PO (09:41)
[2024-11-17 11:20] LABS: Glucose, Whole Blood 184 mg/dL (60-115)
--- NOTE | 2024-11-17 16:09 | P.PNPSI_ITS ---
Subjective Subjective Date of Service: 11/17/24 Reason For Visit: SI with plan to OD on medications, increased anxie Interim History: Patient reports feeling better. She says that Tylenol that this instructional writer advised yesterday helped. Feels her anxiety is better. Feels improved. Denies SI. Sleep is good. Visible on the unit. No behavioral outbursts. Adherent to medications and salt restriction. No SI. Review of Systems Review of Systems Denies any shortness of breath, chest pain, no nausea vomiting or diarrhea reported. Occasional dizziness. Reports chronic abdominal pain. Yes all other systems are reviewed and are negative Mental Status Exam Mental Status Exam Narrative: Appearance:casual attire, bruises on face Behavior: frantic stance Orientation: alert, generally oriented to person, place, time Memory: grossly intact to recent/remote events Attention: able to attend to the encounter discussion Psychomotor Function: pacing Speech: normal rate, tone, volume Mood: anxious Affect: anxious Thought Process: perseverative Thought Content: fixation on somatic symptoms; denies SI/HI Hallucinations: denies AVH delusions: somatic preoccupation Insight: impairment Judgment: impairment Impulsivity: none noted Diagnostics Vital Signs (24Hr): Vital Signs - 24 hr 11/16/24 19:57 11/17/24 08:00 11/17/24 08:21 Temperature 97 F 36.5 F L Pulse Rate 79 95 Respiratory Rate 16 18 Blood Pressure 125/66 141/79 H 142/79 H Pulse Oximetry 99 98 Oxygen Delivery Method Room Air Room Air 11/17/24 08:22 Temperature Pulse Rate Respiratory Rate Blood Pressure 142/79 H Pulse Oximetry Oxygen Delivery Method BMI result Body Mass Index 23.1 Labs 11/02/24 20:14 11/16/24 13:55 Labs: Laboratory Results - last 48 hr 11/15/24 11/15/24 11/16/24 16:20 20:49 06:35 Sodium Potassium Chloride Carbon Dioxide Anion Gap BUN Creatinine Estim Creat Clear Calc Estimated GFR POC Glucose 143 H 138 H 192 H Random Glucose Calcium 11/16/24 11/16/24 11/16/24 11:24 13:55 14:34 Sodium 134 L Potassium 4.7 Chloride 99 Carbon Dioxide 25 Anion Gap 15 BUN 21 H Creatinine 0.87 Estim Creat Clear Calc 38.7 Estimated GFR > 60 POC Glucose 152 H 69 Random Glucose 58 L* Calcium 9.6 11/16/24 11/16/24 11/17/24 16:22 20:02 06:32 Sodium Potassium Chloride Carbon Dioxide Anion Gap BUN Creatinine Estim Creat Clear Calc Estimated GFR POC Glucose 126 H 141 H 177 H Random Glucose Calcium 11/17/24 11:12 Sodium Potassium Chloride Carbon Dioxide Anion Gap BUN Creatinine Estim Creat Clear Calc Estimated GFR POC Glucose 184 H Random Glucose Calcium Imaging Radiology Impressions: ITS Impressions Hip/Pelvis X-Ray 11/05/24 11:00 IMPRESSION: Unremarkable examination of the left hip. Electronically signed by: Sam Saini MD 11/05/2024 11:13 AM EDT RP KUB X-Ray 11/06/24 09:20 IMPRESSION: Large amount of stool throughout the colon. Electronically signed by: Sam Saini MD 11/06/2024 09:34 AM EDT RP Head CT 11/08/24 14:58 IMPRESSION: Left frontal soft tissue swelling. No acute intracranial abnormality. Electronically signed by: Sam Saini MD 11/08/2024 03:18 PM EDT RP Medications Medications Current Medications Acetaminophen (Acetaminophen 325 Mg Tablet) 650 mg PO Q6H PRN PRN Reason: Headache/Pain, Scale 1-10 Last Admin: 11/17/24 15:22 Dose: 650 mg Al Hydroxide/Mg Hydroxide (Magnesium Hydrox/Alum Hydrox 30 Ml Oral.Susp) 30 ml PO Q6H PRN PRN Reason: Heartburn/Nausea Last Admin: 11/17/24 09:41 Dose: 30 ml Albuterol Sulfate (Albuterol Sulfate 90 Mcg 8 Gm Inhaler) 2 puff INHALE Q4H PRN PRN Reason: Shortness Of Breath Or Wheezin Amlodipine Besylate (Amlodipine Besylate 2.5 Mg Tablet) 2.5 mg PO DAILY [facility]; Protocol Last Admin: 11/17/24 08:21 Dose: 2.5 mg Atorvastatin Calcium (Atorvastatin Calcium 20 Mg Tablet) 20 mg PO DAILY [facility] Last Admin: 11/17/24 08:22 Dose: 20 mg Bisacodyl (Bisacodyl 10 Mg Supp.Rect) 10 mg NE BEDTIME PRN PRN Reason: Constipation Last Admin: 11/04/24 20:37 Dose: 10 mg Dicyclomine HCl (Dicyclomine Hcl 10 Mg Capsule) 10 mg PO Q4H PRN PRN Reason: abdominal cramping Last Admin: 11/16/24 20:16 Dose: 10 mg Docusate Sodium (Docusate Sodium 100 Mg Capsule) 100 mg PO BID [facility] Last Admin: 11/17/24 08:21 Dose: 100 mg Duloxetine HCl (Duloxetine Hcl 60 Mg Capsule.Dr) 60 mg PO DAILY [facility] Last Admin: 11/17/24 08:21 Dose: 60 mg Fluticasone/Vilanterol (Fluticasone/Vilanterol 100/25 Blst.W.Dev) 1 puff INHALE RDAILY [facility] Last Admin: 11/17/24 08:24 Dose: 1 puff Gabapentin (Gabapentin 100 Mg Capsule) 100 mg PO TID [facility] Last Admin: 11/17/24 15:23 Dose: 100 mg Glipizide (Glipizide Xl 2.5 Mg Tab.Er.24) 2.5 mg PO DAILY [facility] Last Admin: 11/17/24 08:22 Dose: 2.5 mg Insulin Human Lispro (Insulin Lispro 100 Unit/Ml 3 Ml Vial) 0 unit SUBCUT TIDAC [facility]; Protocol Last Admin: 11/17/24 11:48 Dose: 2 unit Lisinopril (Lisinopril 2.5 Mg Tablet) 2.5 mg PO DAILY [facility]; Protocol Last Admin: 11/17/24 08:22 Dose: 2.5 mg Magnesium Hydroxide (Milk Of Magnesia 30 Ml Oral.Susp) 30 ml PO DAILY PRN PRN Reason: Constipation Last Admin: 11/04/24 16:49 Dose: 30 ml Mirtazapine (Mirtazapine 30 Mg Tablet) 30 mg PO BEDTIME [facility] Last Admin: 11/16/24 20:16 Dose: 30 mg Omeprazole (Omeprazole 20 Mg Capsule.Dr) 20 mg PO BID@0630,1630 [facility] Last Admin: 11/17/24 05:55 Dose: 20 mg Ondansetron HCl (Ondansetron Odt 4 Mg Tab.Rapdis) 4 mg TRANSLINGU Q4H PRN PRN Reason: Nausea and Vomiting Last Admin: 11/17/24 08:22 Dose: 4 mg Polyethylene Glycol (Polyethylene Glycol 3350 17 Gm Powd.Pack) 17 gm PO BID [facility] Last Admin: 11/17/24 08:25 Dose: 17 gm Pramipexole Dihydrochloride (Pramipexole Di-Hcl 0.125 Mg Tablet) 0.125 mg PO DAILY [facility] Last Admin: 11/17/24 08:21 Dose: 0.125 mg Pyridoxine HCl (Pyridoxine Hcl (Vitamin B6) 50 Mg Tablet) 50 mg PO DAILY [facility] Last Admin: 11/17/24 08:22 Dose: 50 mg Senna (Sennosides 8.6 Mg Tablet) 17.2 mg PO BEDTIME [facility] On Hold: 11/06/24 16:27 Last Admin: 11/05/24 19:39 Dose: 17.2 mg Simethicone (Simethicone 80 Mg Tab.Chew) 80 mg PO QIDWMHS [facility] Last Admin: 11/17/24 11:53 Dose: 80 mg Sitagliptin Phosphate (Sitagliptin Phosphate 25 Mg Tablet) 25 mg PO DAILY [facility] Last Admin: 11/17/24 08:21 Dose: 25 mg Sodium Chloride (Sodium Chloride Tab 1 Gm Tablet) 1 gm PO BID [facility] Last Admin: 11/17/24 08:21 Dose: 1 gm Trazodone HCl (Trazodone Hcl 50 Mg Tablet) 50 mg PO BEDTIME MRX1 PRN PRN Reason: Insomnia Last Admin: 11/16/24 20:16 Dose: 50 mg Allergies Allergies Allergy/AdvReac Type Severity Reaction Status Date / Time ampicillin Allergy Rash Verified 10/20/24 19:28 morphine Allergy Rash Verified 10/20/24 19:28 Penicillins Allergy Rash Verified 10/20/24 19:28 pork derived (porcine) Allergy Vomiting Verified 11/10/24 17:49 lactose AdvReac Flatulence Verified 11/10/24 17:49 Assessment & Plan Assessment & Plan (1) MDD (major depressive disorder), recurrent episode, moderate: Status: Acute Code(s): F33.1 - Major depressive disorder, recurrent, moderate (2) 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 Barreto is a 78 year-old woman with hx of MDD who was assessed by N at request of her son who called 911 after pt had reported suicidal ideation with plan to OD. In the ED, pt adamantly denied suicidal ideation but reports feeling increasingly more depressed due to involuntary, ongoing movement of lower extremities. She attributes her depressed mood and increase anxious mood to RLS. She has also been treated as tardive akathisia, note that she was previously prescribed abilify. It is noted that she may have iron deficiency due to normocytic anemia which can exacerbate RLS. It is unclear which medications for hyperkinetic movements of the legs are actually helpful and furthermore it is not easily to differentiate whether it is tardive akathisia or RLS. She has been on psychotropic medications that are known to cause akathisia such as abilify. She reports subjective sense of restlessness. Involuntary movement seems to be throughout the day. We will have to do trial of medications that target akathisia such as propanolol and ativan versus medications such as pramipexol for RLS (note that in RLS there is an initial relief with dopamine agonist but can make it worse over time). In addition, will try iron deficiency as it is an underlying cause and exacerbating factor in RLS. PLAN 11/14 continue tx. will monitor before making substantial changes every day. 11/15 continue tx. pt somatically preoccupied. 11/16: Continue current management and treatment plan. 11/17: continue current management and treatment plan. Reason for continued inpatient stay Substantial Risk for: inability to function and rapid decompensation Time Spent With Patient Time: Total time managing care of this patient today ____ minutes.
[2024-11-17 16:25] LABS: Glucose, Whole Blood 149 mg/dL (60-115)
[2024-11-17 16:25] LABS: Glucose, Whole Blood 119 mg/dL (60-115)
[2024-11-17 20:00] VITALS: BP 137/66; PULSE 97; RESP 18; TEMP 36.4; O2SAT 95
[2024-11-18 06:52] LABS: Glucose, Whole Blood 192 mg/dL (60-115)
[2024-11-18] MEDS: Fluticasone/Vilanterol 100/25 BLST.W.DEV 1 PUFF INHALE (07:59)
[2024-11-18 08:00] VITALS: BP 148/73; PULSE 97; RESP 18; TEMP 36.6; O2SAT 97
[2024-11-18] MEDS: Sodium Chloride Tab 1 GM TABLET PO (08:00)
[2024-11-18 08:01] VITALS: BP 148/73
--- NOTE | 2024-11-18 08:33 | P.PNPSI_ITS ---
Subjective Subjective Date of Service: 11/18/24 Reason For Visit: SI with plan to OD on medications, increased anxie Subjective Notes: Conditional Voluntary Interim History: Pt slept through the night but reports she peer going to her room at night and this causes a lot of anxiety. She reports feeling restless, due to RLS. She also reports feeling depressed and saddened about being here on the unit. She denies SI/HI. We discussed starting buspar 10mg po TID. may increase pramipexole but concern of not worsening anxious mood. Review of Systems Review of Systems Denies any shortness of breath, chest pain, no nausea vomiting or diarrhea reported. Occasional dizziness. Reports chronic abdominal pain. Yes all other systems are reviewed and are negative Mental Status Exam Mental Status Exam Narrative: Appearance:casual attire, bruises on face Behavior: frantic stance Orientation: alert, generally oriented to person, place, time Memory: grossly intact to recent/remote events Attention: able to attend to the encounter discussion Psychomotor Function: pacing Speech: normal rate, tone, volume Mood: anxious Affect: anxious Thought Process: perseverative Thought Content: fixation on somatic symptoms; denies SI/HI Hallucinations: denies AVH delusions: somatic preoccupation Insight: impairment Judgment: impairment Impulsivity: none noted Diagnostics Vital Signs (24Hr): Vital Signs - 24 hr 11/17/24 20:00 11/18/24 08:00 11/18/24 08:01 Temperature 97.5 F Pulse Rate 97 Respiratory Rate 18 Blood Pressure 137/66 148/73 H 148/73 H Pulse Oximetry 95 Oxygen Delivery Method Room Air BMI result Body Mass Index 23.1 Labs 11/02/24 20:14 11/18/24 13:33 Labs: Laboratory Results - last 48 hr 11/16/24 11/16/24 11/16/24 11:24 13:55 14:34 Sodium 134 L Potassium 4.7 Chloride 99 Carbon Dioxide 25 Anion Gap 15 BUN 21 H Creatinine 0.87 Estim Creat Clear Calc 38.7 Estimated GFR > 60 POC Glucose 152 H 69 Random Glucose 58 L* Calcium 9.6 11/16/24 11/16/24 11/17/24 16:22 20:02 06:32 Sodium Potassium Chloride Carbon Dioxide Anion Gap BUN Creatinine Estim Creat Clear Calc Estimated GFR POC Glucose 126 H 141 H 177 H Random Glucose Calcium 07/11/17/24 11/17/24 11:12 14:40 16:18 Sodium Potassium Chloride Carbon Dioxide Anion Gap BUN Creatinine Estim Creat Clear Calc Estimated GFR POC Glucose 184 H 149 H 119 H Random Glucose Calcium 11/18/24 06:08 Sodium Potassium Chloride Carbon Dioxide Anion Gap BUN Creatinine Estim Creat Clear Calc Estimated GFR POC Glucose 192 H Random Glucose Calcium Imaging Radiology Impressions: ITS Impressions Hip/Pelvis X-Ray 11/05/24 11:00 IMPRESSION: Unremarkable examination of the left hip. Electronically signed by: Sam Saini MD 11/05/2024 11:13 AM EDT RP KUB X-Ray 11/06/24 09:20 IMPRESSION: Large amount of stool throughout the colon. Electronically signed by: Sam Saini MD 11/06/2024 09:34 AM EDT RP Head CT 11/08/24 14:58 IMPRESSION: Left frontal soft tissue swelling. No acute intracranial abnormality. Electronically signed by: Sam Saini MD 11/08/2024 03:18 PM EDT RP Medications Medications Current Medications Acetaminophen (Acetaminophen 325 Mg Tablet) 650 mg PO Q6H PRN PRN Reason: Headache/Pain, Scale 1-10 Last Admin: 11/17/24 15:22 Dose: 650 mg Al Hydroxide/Mg Hydroxide (Magnesium Hydrox/Alum Hydrox 30 Ml Oral.Susp) 30 ml PO Q6H PRN PRN Reason: Heartburn/Nausea Last Admin: 11/17/24 09:41 Dose: 30 ml Albuterol Sulfate (Albuterol Sulfate 90 Mcg 8 Gm Inhaler) 2 puff INHALE Q4H PRN PRN Reason: Shortness Of Breath Or Wheezin Amlodipine Besylate (Amlodipine Besylate 2.5 Mg Tablet) 2.5 mg PO DAILY [facility]; Protocol Last Admin: 11/18/24 08:01 Dose: 2.5 mg Atorvastatin Calcium (Atorvastatin Calcium 20 Mg Tablet) 20 mg PO DAILY [facility] Last Admin: 11/18/24 08:01 Dose: 20 mg Bisacodyl (Bisacodyl 10 Mg Supp.Rect) 10 mg LA BEDTIME PRN PRN Reason: Constipation Last Admin: 11/04/24 20:37 Dose: 10 mg Dicyclomine HCl (Dicyclomine Hcl 10 Mg Capsule) 10 mg PO Q4H PRN PRN Reason: abdominal cramping Last Admin: 11/17/24 16:36 Dose: 10 mg Docusate Sodium (Docusate Sodium 100 Mg Capsule) 100 mg PO BID [facility] Last Admin: 11/18/24 08:01 Dose: 100 mg Duloxetine HCl (Duloxetine Hcl 60 Mg Capsule.Dr) 60 mg PO DAILY [facility] Last Admin: 11/18/24 08:01 Dose: 60 mg Fluticasone/Vilanterol (Fluticasone/Vilanterol 100/25 Blst.W.Dev) 1 puff INHALE RDAILY [facility] Last Admin: 11/18/24 07:59 Dose: 1 puff Gabapentin (Gabapentin 100 Mg Capsule) 100 mg PO TID [facility] Last Admin: 11/18/24 08:01 Dose: 100 mg Glipizide (Glipizide Xl 2.5 Mg Tab.Er.24) 2.5 mg PO DAILY [facility] Last Admin: 11/18/24 08:01 Dose: 2.5 mg Insulin Human Lispro (Insulin Lispro 100 Unit/Ml 3 Ml Vial) 0 unit SUBCUT TIDAC [facility]; Protocol Last Admin: 11/18/24 08:03 Dose: 2 unit Lisinopril (Lisinopril 2.5 Mg Tablet) 2.5 mg PO DAILY [facility]; Protocol Last Admin: 11/18/24 08:00 Dose: 2.5 mg Magnesium Hydroxide (Milk Of Magnesia 30 Ml Oral.Susp) 30 ml PO DAILY PRN PRN Reason: Constipation Last Admin: 11/04/24 16:49 Dose: 30 ml Mirtazapine (Mirtazapine 30 Mg Tablet) 30 mg PO BEDTIME [facility] Last Admin: 11/17/24 20:30 Dose: 30 mg Omeprazole (Omeprazole 20 Mg Capsule.Dr) 20 mg PO BID@0630,1630 [facility] Last Admin: 11/18/24 06:12 Dose: 20 mg Ondansetron HCl (Ondansetron Odt 4 Mg Tab.Rapdis) 4 mg TRANSLINGU Q4H PRN PRN Reason: Nausea and Vomiting Last Admin: 11/18/24 08:13 Dose: 4 mg Polyethylene Glycol (Polyethylene Glycol 3350 17 Gm Powd.Pack) 17 gm PO BID [facility] Last Admin: 11/18/24 08:02 Dose: Not Given Pramipexole Dihydrochloride (Pramipexole Di-Hcl 0.125 Mg Tablet) 0.125 mg PO DAILY [facility] Last Admin: 11/18/24 08:00 Dose: 0.125 mg Pyridoxine HCl (Pyridoxine Hcl (Vitamin B6) 50 Mg Tablet) 50 mg PO DAILY [facility] Last Admin: 11/18/24 08:01 Dose: 50 mg Senna (Sennosides 8.6 Mg Tablet) 17.2 mg PO BEDTIME [facility] On Hold: 11/06/24 16:27 Last Admin: 11/05/24 19:39 Dose: 17.2 mg Simethicone (Simethicone 80 Mg Tab.Chew) 80 mg PO QIDWMHS [facility] Last Admin: 11/18/24 08:01 Dose: 80 mg Sitagliptin Phosphate (Sitagliptin Phosphate 25 Mg Tablet) 25 mg PO DAILY [facility] Last Admin: 11/18/24 08:00 Dose: 25 mg Sodium Chloride (Sodium Chloride Tab 1 Gm Tablet) 1 gm PO BID [facility] Last Admin: 11/18/24 08:00 Dose: 1 gm Trazodone HCl (Trazodone Hcl 50 Mg Tablet) 50 mg PO BEDTIME MRX1 PRN PRN Reason: Insomnia Last Admin: 11/17/24 20:31 Dose: 50 mg Allergies Allergies Allergy/AdvReac Type Severity Reaction Status Date / Time ampicillin Allergy Rash Verified 10/20/24 19:28 morphine Allergy Rash Verified 10/20/24 19:28 Penicillins Allergy Rash Verified 10/20/24 19:28 pork derived (porcine) Allergy Vomiting Verified 11/10/24 17:49 lactose AdvReac Flatulence Verified 11/10/24 17:49 Assessment & Plan Assessment & Plan (1) MDD (major depressive disorder), recurrent episode, moderate: Status: Acute Code(s): F33.1 - Major depressive disorder, recurrent, moderate (2) 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 Barreto is a 78 year-old woman with hx of MDD who was assessed by N at request of her son who called 911 after pt had reported suicidal ideation with plan to OD. In the ED, pt adamantly denied suicidal ideation but reports feeling increasingly more depressed due to involuntary, ongoing movement of lower extremities. She attributes her depressed mood and increase anxious mood to RLS. She has also been treated as tardive akathisia, note that she was previously prescribed abilify. It is noted that she may have iron deficiency due to normocytic anemia which can exacerbate RLS. It is unclear which medications for hyperkinetic movements of the legs are actually helpful and furthermore it is not easily to differentiate whether it is tardive akathisia or RLS. She has been on psychotropic medications that are known to cause akathisia such as abilify. She reports subjective sense of restlessness. Involuntary movement seems to be throughout the day. We will have to do trial of medications that target akathisia such as propanolol and ativan versus medications such as pramipexol for RLS (note that in RLS there is an initial relief with dopamine agonist but can make it worse over time). In addition, will try iron deficiency as it is an underlying cause and exacerbating factor in RLS. PLAN 11/14 continue tx. will monitor before making substantial changes every day. 11/15 continue tx. pt somatically preoccupied. 11/16: Continue current management and treatment plan. 11/17: continue current management and treatment plan. 11/18 start buspar 10mg po TID for SHEILA. continue all other meds. Reason for continued inpatient stay Substantial Risk for: inability to function Time Spent With Patient Time: Total time managing care of this patient today ____ minutes.
[2024-11-18] MEDS: Magnesium Hydrox/Alum Hydrox 30 ML ORAL.SUSP PO (10:28)
[2024-11-18 11:20] LABS: Glucose, Whole Blood 127 mg/dL (60-115)
[2024-11-18 13:58] LABS: Alanine Aminotransferase 26 U/L (0-31); Albumin Level 4.4 g/dL (3.5-5.0); Alkaline Phosphatase 67 U/L (39-117); Anion Gap 12 (12-20); Aspartate Amino Transferase 18 U/L (5-31); Blood Urea Nitrogen 27 mg/dL (9-16); Calcium 9.1 mg/dL (8.4-10.2); Carbon Dioxide 25 mmol/L (22-29); Chloride 105 mmol/L (96-108); Creatinine Clr Calc Pharmacy 32.6; Estimated Glomerular Filt Rate 52; Potassium 4.9 mmol/L (3.3-5.1); Sodium 137 mmol/L (135-145); Total Protein 7.1 g/dL (6.5-8.0)
[2024-11-18 16:25] LABS: Glucose, Whole Blood 110 mg/dL (60-115)
[2024-11-18 19:44] VITALS: BP 133/74; PULSE 84; RESP 16; TEMP 36.4; O2SAT 99
[2024-11-18 21:23] LABS: Glucose, Whole Blood 154 mg/dL (60-115)
[2024-11-19 06:43] LABS: Glucose, Whole Blood 178 mg/dL (60-115)
[2024-11-19 08:21] VITALS: BP 131/73; PULSE 88; RESP 18; TEMP 36.8; O2SAT 98
[2024-11-19] MEDS: Fluticasone/Vilanterol 100/25 BLST.W.DEV 1 PUFF INHALE (08:33)
[2024-11-19 11:27] LABS: Glucose, Whole Blood 157 mg/dL (60-115)
[2024-11-19 16:04] LABS: Glucose, Whole Blood 110 mg/dL (60-115)
--- NOTE | 2024-11-19 16:56 | P.PNPSI_ITS ---
Subjective Subjective Date of Service: 11/19/24 Reason For Visit: SI with plan to OD on medications, increased anxie Interim History: Pt slept through the night. She presents slightly calmer. She reports feeling anxious and depressed about where she is going next. She denies SI/HI. Feels we have not done many medication changes, however, reminded her that we have tried several medications- one at a time to avoid polypharmacy. She does have tendecy of low frustration tolerance and need for relief immediately. Review of Systems Review of Systems Denies any shortness of breath, chest pain, no nausea vomiting or diarrhea reported. Occasional dizziness. Reports chronic abdominal pain. Yes all other systems are reviewed and are negative Mental Status Exam Mental Status Exam Narrative: Appearance:casual attire, bruises on face Behavior: frantic stance Orientation: alert, generally oriented to person, place, time Memory: grossly intact to recent/remote events Attention: able to attend to the encounter discussion Psychomotor Function: pacing Speech: normal rate, tone, volume Mood: anxious Affect: anxious Thought Process: perseverative Thought Content: fixation on somatic symptoms; denies SI/HI Hallucinations: denies AVH delusions: somatic preoccupation Insight: impairment Judgment: impairment Impulsivity: none noted Diagnostics Vital Signs (24Hr): Vital Signs - 24 hr 11/18/24 19:44 11/19/24 08:21 Temperature 97.5 F 98.2 F Pulse Rate 84 88 Respiratory Rate 16 18 Blood Pressure 133/74 131/73 Pulse Oximetry 99 98 Oxygen Delivery Method Room Air Room Air BMI result Body Mass Index 23.1 Labs 11/02/24 20:14 11/20/24 11:02 Labs: Laboratory Results - last 48 hr 11/18/24 11/18/24 11/18/24 06:08 11:15 13:33 Sodium 137 Potassium 4.9 Chloride 105 Carbon Dioxide 25 Anion Gap 12 BUN 27 H Creatinine 1.03 Estim Creat Clear Calc 32.6 Estimated GFR 52 POC Glucose 192 H 127 H Random Glucose 81 Calcium 9.1 Total Bilirubin 0.3 AST 18 ALT 26 Alkaline Phosphatase 67 Total Protein 7.1 Albumin 4.4 11/18/24 11/18/24 11/19/24 16:18 21:19 06:30 Sodium Potassium Chloride Carbon Dioxide Anion Gap BUN Creatinine Estim Creat Clear Calc Estimated GFR POC Glucose 110 154 H 178 H Random Glucose Calcium Total Bilirubin AST ALT Alkaline Phosphatase Total Protein Albumin 11/19/24 11/19/24 11:23 15:59 Sodium Potassium Chloride Carbon Dioxide Anion Gap BUN Creatinine Estim Creat Clear Calc Estimated GFR POC Glucose 157 H 110 Random Glucose Calcium Total Bilirubin AST ALT Alkaline Phosphatase Total Protein Albumin Imaging Radiology Impressions: ITS Impressions Hip/Pelvis X-Ray 11/05/24 11:00 IMPRESSION: Unremarkable examination of the left hip. Electronically signed by: Sam Saini MD 11/05/2024 11:13 AM EDT RP KUB X-Ray 11/06/24 09:20 IMPRESSION: Large amount of stool throughout the colon. Electronically signed by: Sam Saini MD 11/06/2024 09:34 AM EDT RP Head CT 11/08/24 14:58 IMPRESSION: Left frontal soft tissue swelling. No acute intracranial abnormality. Electronically signed by: Sam Saini MD 11/08/2024 03:18 PM EDT RP Medications Medications Current Medications Acetaminophen (Acetaminophen 325 Mg Tablet) 650 mg PO Q6H PRN PRN Reason: Headache/Pain, Scale 1-10 Last Admin: 11/19/24 04:55 Dose: 650 mg Al Hydroxide/Mg Hydroxide (Magnesium Hydrox/Alum Hydrox 30 Ml Oral.Susp) 30 ml PO Q6H PRN PRN Reason: Heartburn/Nausea Last Admin: 11/18/24 10:28 Dose: 30 ml Albuterol Sulfate (Albuterol Sulfate 90 Mcg 8 Gm Inhaler) 2 puff INHALE Q4H PRN PRN Reason: Shortness Of Breath Or Wheezin Amlodipine Besylate (Amlodipine Besylate 2.5 Mg Tablet) 2.5 mg PO DAILY [facility]; Protocol Last Admin: 11/19/24 08:26 Dose: 2.5 mg Atorvastatin Calcium (Atorvastatin Calcium 20 Mg Tablet) 20 mg PO DAILY [facility] Last Admin: 11/19/24 08:25 Dose: 20 mg Bisacodyl (Bisacodyl 10 Mg Supp.Rect) 10 mg MD BEDTIME PRN PRN Reason: Constipation Last Admin: 11/04/24 20:37 Dose: 10 mg Buspirone HCl (Buspirone Hcl 10 Mg Tablet) 20 mg PO TID [facility] Last Admin: 11/19/24 14:42 Dose: 20 mg Dicyclomine HCl (Dicyclomine Hcl 10 Mg Capsule) 10 mg PO Q4H PRN PRN Reason: abdominal cramping Last Admin: 11/18/24 21:17 Dose: 10 mg Docusate Sodium (Docusate Sodium 100 Mg Capsule) 100 mg PO BID [facility] Last Admin: 11/19/24 08:25 Dose: 100 mg Duloxetine HCl (Duloxetine Hcl 60 Mg Capsule.Dr) 60 mg PO DAILY [facility] Last Admin: 11/19/24 08:25 Dose: 60 mg Fluticasone/Vilanterol (Fluticasone/Vilanterol 100/25 Blst.W.Dev) 1 puff INHALE RDAILY [facility] Last Admin: 11/19/24 08:33 Dose: 1 puff Gabapentin (Gabapentin 100 Mg Capsule) 100 mg PO TID [facility] Last Admin: 11/19/24 14:42 Dose: 100 mg Glipizide (Glipizide Xl 2.5 Mg Tab.Er.24) 2.5 mg PO DAILY [facility] Last Admin: 11/19/24 08:26 Dose: 2.5 mg Insulin Human Lispro (Insulin Lispro 100 Unit/Ml 3 Ml Vial) 0 unit SUBCUT TIDAC [facility]; Protocol Last Admin: 11/19/24 11:37 Dose: 2 unit Lisinopril (Lisinopril 2.5 Mg Tablet) 2.5 mg PO DAILY [facility]; Protocol Last Admin: 11/19/24 08:26 Dose: 2.5 mg Magnesium Hydroxide (Milk Of Magnesia 30 Ml Oral.Susp) 30 ml PO DAILY PRN PRN Reason: Constipation Last Admin: 11/04/24 16:49 Dose: 30 ml Mirtazapine (Mirtazapine 30 Mg Tablet) 30 mg PO BEDTIME [facility] Last Admin: 11/18/24 19:47 Dose: 30 mg Omeprazole (Omeprazole 20 Mg Capsule.Dr) 20 mg PO BID@0630,1630 [facility] Last Admin: 11/19/24 05:34 Dose: 20 mg Ondansetron HCl (Ondansetron Odt 4 Mg Tab.Rapdis) 4 mg TRANSLINGU Q4H PRN PRN Reason: Nausea and Vomiting Last Admin: 11/18/24 08:13 Dose: 4 mg Polyethylene Glycol (Polyethylene Glycol 3350 17 Gm Powd.Pack) 17 gm PO BID [facility] Last Admin: 11/19/24 08:26 Dose: Not Given Pramipexole Dihydrochloride (Pramipexole Di-Hcl 0.125 Mg Tablet) 0.125 mg PO DAILY [facility] Last Admin: 11/19/24 08:26 Dose: 0.125 mg Pyridoxine HCl (Pyridoxine Hcl (Vitamin B6) 50 Mg Tablet) 50 mg PO DAILY [facility] Last Admin: 11/19/24 08:25 Dose: 50 mg Senna (Sennosides 8.6 Mg Tablet) 17.2 mg PO BEDTIME [facility] On Hold: 11/06/24 16:27 Last Admin: 11/05/24 19:39 Dose: 17.2 mg Simethicone (Simethicone 80 Mg Tab.Chew) 80 mg PO QIDWMHS [facility] Last Admin: 11/19/24 11:38 Dose: 80 mg Sitagliptin Phosphate (Sitagliptin Phosphate 25 Mg Tablet) 25 mg PO DAILY [facility] Last Admin: 11/19/24 08:25 Dose: 25 mg Trazodone HCl (Trazodone Hcl 50 Mg Tablet) 50 mg PO BEDTIME MRX1 PRN PRN Reason: Insomnia Last Admin: 11/17/24 20:31 Dose: 50 mg Allergies Allergies Allergy/AdvReac Type Severity Reaction Status Date / Time ampicillin Allergy Rash Verified 10/20/24 19:28 morphine Allergy Rash Verified 10/20/24 19:28 Penicillins Allergy Rash Verified 10/20/24 19:28 pork derived (porcine) Allergy Vomiting Verified 11/10/24 17:49 lactose AdvReac Flatulence Verified 11/10/24 17:49 Assessment & Plan Assessment & Plan (1) MDD (major depressive disorder), recurrent episode, moderate: Status: Acute Code(s): F33.1 - Major depressive disorder, recurrent, moderate (2) 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 Barreto is a 78 year-old woman with hx of MDD who was assessed by N at request of her son who called 911 after pt had reported suicidal ideation with plan to OD. In the ED, pt adamantly denied suicidal ideation but reports feeling increasingly more depressed due to involuntary, ongoing movement of lower extremities. She attributes her depressed mood and increase anxious mood to RLS. She has also been treated as tardive akathisia, note that she was previously prescribed abilify. It is noted that she may have iron deficiency due to normocytic anemia which can exacerbate RLS. It is unclear which medications for hyperkinetic movements of the legs are actually helpful and furthermore it is not easily to differentiate whether it is tardive akathisia or RLS. She has been on psychotropic medications that are known to cause akathisia such as abilify. She reports subjective sense of restlessness. Involuntary movement seems to be throughout the day. We will have to do trial of medications that target akathisia such as propanolol and ativan versus medications such as pramipexol for RLS (note that in RLS there is an initial relief with dopamine agonist but can make it worse over time). In addition, will try iron deficiency as it is an underlying cause and exacerbating factor in RLS. PLAN 11/14 continue tx. will monitor before making substantial changes every day. 11/15 continue tx. pt somatically preoccupied. 11/16: Continue current management and treatment plan. 11/17: continue current management and treatment plan. 11/18 start buspar 10mg po TID for SHEILA. continue all other meds. 11/19 continue tx. may increase buspar to 20mg po TID. Reason for continued inpatient stay Substantial Risk for: inability to function Time Spent With Patient Time: Total time managing care of this patient today ____ minutes.
[2024-11-19 19:54] LABS: Glucose, Whole Blood 205 mg/dL (60-115)
[2024-11-19 20:00] VITALS: BP 148/69; PULSE 97; RESP 18; TEMP 36.7; O2SAT 98
[2024-11-20 06:41] LABS: Glucose, Whole Blood 165 mg/dL (60-115)
[2024-11-20 08:00] VITALS: BP 124/72; PULSE 89; RESP 16; TEMP 36.3; O2SAT 98
[2024-11-20] MEDS: Fluticasone/Vilanterol 100/25 BLST.W.DEV 1 PUFF INHALE (08:08)
[2024-11-20 11:23] LABS: Anion Gap 13 (12-20); Blood Urea Nitrogen 23 mg/dL (9-16); Calcium 9.5 mg/dL (8.4-10.2); Carbon Dioxide 27 mmol/L (22-29); Chloride 102 mmol/L (96-108); Creatinine Clr Calc Pharmacy 34.0; Estimated Glomerular Filt Rate 55; Potassium 4.7 mmol/L (3.3-5.1); Sodium 137 mmol/L (135-145)
[2024-11-20 11:40] LABS: Glucose, Whole Blood 106 mg/dL (60-115)
[2024-11-20 12:58] LABS: Hemoglobin A1C 152.2085 umol/L; Total Hemoglobin (HGBA1C) 2878.5822 umol/L
[2024-11-20 16:27] LABS: Glucose, Whole Blood 202 mg/dL (60-115)
--- NOTE | 2024-11-20 19:16 | HO.PSYCHPN ---
Subjective Subjective Date of Service: 11/20/24 Reason For Visit: SI with plan to OD on medications, increased anxie Subjective Notes: Conditional Voluntary Interim History: Pt slept through the night. She continues to present slightly calmer. She reports feeling anxious and depressed about where she is going next. She denies SI/HI. She reports some improvement in mood today. She has been visible on the unit, attended assigned groups. Medication Compliance: Yes Review of Systems Review of Systems Denies any shortness of breath, chest pain, no nausea vomiting or diarrhea reported. Occasional dizziness. Reports chronic abdominal pain. Yes all other systems are reviewed and are negative Mental Status Exam Mental Status Exam Narrative: Appearance:casual attire, bruises on face, good hygiene, in NAD Behavior: calmer Orientation: alert, generally oriented to person, place, time Memory: grossly intact to recent/remote events Attention: able to attend to the encounter discussion Psychomotor Function: pacing Speech: normal rate, tone, volume Mood: better Affect: congruent. Thought Process: perseverative Thought Content: fixation on somatic symptoms; denies SI/HI Hallucinations: denies AVH delusions: somatic preoccupation Insight: impairment Judgment: impairment Impulsivity: none noted Diagnostics Vital Signs (24Hr): Vital Signs - 24 hr 11/19/24 20:00 11/20/24 08:00 Temperature 98.1 F 97.3 F Pulse Rate 97 89 Respiratory Rate 18 16 Blood Pressure 148/69 H 124/72 Pulse Oximetry 98 98 Oxygen Delivery Method Room Air Room Air BMI result Body Mass Index 23.1 Labs 11/02/24 20:14 11/20/24 11:02 Labs: Laboratory Results - last 48 hr 11/18/24 11/19/24 11/19/24 21:19 06:30 11:23 Sodium Potassium Chloride Carbon Dioxide Anion Gap BUN Creatinine Estim Creat Clear Calc Estimated GFR POC Glucose 154 H 178 H 157 H Random Glucose Estimat Average Glucose Hemoglobin A1c % Calcium 11/19/24 11/19/24 11/20/24 15:59 19:50 06:36 Sodium Potassium Chloride Carbon Dioxide Anion Gap BUN Creatinine Estim Creat Clear Calc Estimated GFR POC Glucose 110 205 H 165 H Random Glucose Estimat Average Glucose Hemoglobin A1c % Calcium 11/20/24 11/20/24 11/20/24 11:02 11:33 16:23 Sodium 137 Potassium 4.7 Chloride 102 Carbon Dioxide 27 Anion Gap 13 BUN 23 H Creatinine 0.99 Estim Creat Clear Calc 34.0 Estimated GFR 55 POC Glucose 106 202 H Random Glucose 129 H Estimat Average Glucose 154 Hemoglobin A1c % 7.0 H Calcium 9.5 Imaging Radiology Impressions: ITS Impressions Hip/Pelvis X-Ray 11/05/24 11:00 IMPRESSION: Unremarkable examination of the left hip. Electronically signed by: Sam Saini MD 11/05/2024 11:13 AM EDT RP KUB X-Ray 11/06/24 09:20 IMPRESSION: Large amount of stool throughout the colon. Electronically signed by: Sam Saini MD 11/06/2024 09:34 AM EDT RP Head CT 11/08/24 14:58 IMPRESSION: Left frontal soft tissue swelling. No acute intracranial abnormality. Electronically signed by: Sam Saiin MD 11/08/2024 03:18 PM EDT RP Medications Medications Current Medications Acetaminophen (Acetaminophen 325 Mg Tablet) 650 mg PO Q6H PRN PRN Reason: Headache/Pain, Scale 1-10 Last Admin: 11/19/24 04:55 Dose: 650 mg Al Hydroxide/Mg Hydroxide (Magnesium Hydrox/Alum Hydrox 30 Ml Oral.Susp) 30 ml PO Q6H PRN PRN Reason: Heartburn/Nausea Last Admin: 11/18/24 10:28 Dose: 30 ml Albuterol Sulfate (Albuterol Sulfate 90 Mcg 8 Gm Inhaler) 2 puff INHALE Q4H PRN PRN Reason: Shortness Of Breath Or Wheezin Amlodipine Besylate (Amlodipine Besylate 2.5 Mg Tablet) 2.5 mg PO DAILY [facility]; Protocol Last Admin: 11/20/24 08:09 Dose: 2.5 mg Atorvastatin Calcium (Atorvastatin Calcium 20 Mg Tablet) 20 mg PO DAILY [facility] Last Admin: 11/20/24 08:09 Dose: 20 mg Bisacodyl (Bisacodyl 10 Mg Supp.Rect) 10 mg MD BEDTIME PRN PRN Reason: Constipation Last Admin: 11/04/24 20:37 Dose: 10 mg Buspirone HCl (Buspirone Hcl 10 Mg Tablet) 20 mg PO TID [facility] Last Admin: 11/20/24 15:50 Dose: 20 mg Dicyclomine HCl (Dicyclomine Hcl 10 Mg Capsule) 10 mg PO Q4H PRN PRN Reason: abdominal cramping Last Admin: 11/18/24 21:17 Dose: 10 mg Docusate Sodium (Docusate Sodium 100 Mg Capsule) 100 mg PO BID [facility] Last Admin: 11/20/24 08:09 Dose: 100 mg Duloxetine HCl (Duloxetine Hcl 60 Mg Capsule.) 60 mg PO DAILY [facility] Last Admin: 11/20/24 08:09 Dose: 60 mg Fluticasone/Vilanterol (Fluticasone/Vilanterol 100/25 Blst.W.Dev) 1 puff INHALE RDAILY [facility] Last Admin: 11/20/24 08:08 Dose: 1 puff Gabapentin (Gabapentin 100 Mg Capsule) 100 mg PO TID [facility] Last Admin: 11/20/24 15:50 Dose: 100 mg Glipizide (Glipizide Xl 2.5 Mg Tab.Er.24) 2.5 mg PO DAILY [facility] Last Admin: 11/20/24 08:09 Dose: 2.5 mg Lisinopril (Lisinopril 2.5 Mg Tablet) 2.5 mg PO DAILY [facility]; Protocol Last Admin: 11/20/24 08:08 Dose: 2.5 mg Magnesium Hydroxide (Milk Of Magnesia 30 Ml Oral.Susp) 30 ml PO DAILY PRN PRN Reason: Constipation Last Admin: 11/04/24 16:49 Dose: 30 ml Mirtazapine (Mirtazapine 30 Mg Tablet) 30 mg PO BEDTIME [facility] Last Admin: 11/19/24 20:27 Dose: 30 mg Omeprazole (Omeprazole 20 Mg Capsule.) 20 mg PO BID@0630,1630 [facility] Last Admin: 11/20/24 15:50 Dose: 20 mg Ondansetron HCl (Ondansetron Odt 4 Mg Tab.Rapdis) 4 mg TRANSLINGU Q4H PRN PRN Reason: Nausea and Vomiting Last Admin: 11/20/24 06:35 Dose: 4 mg Polyethylene Glycol (Polyethylene Glycol 3350 17 Gm Powd.Pack) 17 gm PO BID [facility] Last Admin: 11/20/24 12:36 Dose: 17 gm Pramipexole Dihydrochloride (Pramipexole Di-Hcl 0.125 Mg Tablet) 0.125 mg PO DAILY [facility] Last Admin: 11/20/24 08:09 Dose: 0.125 mg Pyridoxine HCl (Pyridoxine Hcl (Vitamin B6) 50 Mg Tablet) 50 mg PO DAILY [facility] Last Admin: 11/20/24 08:10 Dose: 50 mg Ropinirole HCl (Ropinirole Hcl 2 Mg Tablet) 2 mg PO DAILY@1700 [facility] Last Admin: 11/20/24 16:49 Dose: 2 mg Senna (Sennosides 8.6 Mg Tablet) 17.2 mg PO BEDTIME [facility] On Hold: 11/06/24 16:27 Last Admin: 11/05/24 19:39 Dose: 17.2 mg Simethicone (Simethicone 80 Mg Tab.Chew) 80 mg PO QIDWMHS [facility] Last Admin: 11/20/24 16:49 Dose: 80 mg Sitagliptin Phosphate (Sitagliptin Phosphate 25 Mg Tablet) 25 mg PO DAILY [facility] Last Admin: 11/20/24 08:10 Dose: 25 mg Trazodone HCl (Trazodone Hcl 50 Mg Tablet) 50 mg PO BEDTIME MRX1 PRN PRN Reason: Insomnia Last Admin: 11/19/24 20:27 Dose: 50 mg Allergies Allergies Allergy/AdvReac Type Severity Reaction Status Date / Time ampicillin Allergy Rash Verified 10/20/24 19:28 morphine Allergy Rash Verified 10/20/24 19:28 Penicillins Allergy Rash Verified 10/20/24 19:28 pork derived (porcine) Allergy Vomiting Verified 11/10/24 17:49 Assessment & Plan Assessment & Plan (1) MDD (major depressive disorder), recurrent episode, moderate: Status: Acute Code(s): F33.1 - Major depressive disorder, recurrent, moderate (2) 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 Barreto is a 78 year-old woman with hx of MDD who was assessed by N at request of her son who called 911 after pt had reported suicidal ideation with plan to OD. In the ED, pt adamantly denied suicidal ideation but reports feeling increasingly more depressed due to involuntary, ongoing movement of lower extremities. She attributes her depressed mood and increase anxious mood to RLS. She has also been treated as tardive akathisia, note that she was previously prescribed abilify. It is noted that she may have iron deficiency due to normocytic anemia which can exacerbate RLS. It is unclear which medications for hyperkinetic movements of the legs are actually helpful and furthermore it is not easily to differentiate whether it is tardive akathisia or RLS. She has been on psychotropic medications that are known to cause akathisia such as abilify. She reports subjective sense of restlessness. Involuntary movement seems to be throughout the day. We will have to do trial of medications that target akathisia such as propanolol and ativan versus medications such as pramipexol for RLS (note that in RLS there is an initial relief with dopamine agonist but can make it worse over time). In addition, will try iron deficiency as it is an underlying cause and exacerbating factor in RLS. PLAN 11/14 continue tx. will monitor before making substantial changes every day. 11/15 continue tx. pt somatically preoccupied. 11/16: Continue current management and treatment plan. 11/17: continue current management and treatment plan. 11/18 start buspar 10mg po TID for SHEILA. continue all other meds. 11/19 increase buspar 20mg po TID 11/20 appears calmer, less somatically preccupied. continue current medications. Reason for continued inpatient stay Substantial Risk for: inability to function Time Spent With Patient Time: Total time managing care of this patient today ____ minutes.
[2024-11-20 20:00] VITALS: BP 119/62; PULSE 88; RESP 16; TEMP 36.6; O2SAT 99
[2024-11-20 20:50] LABS: Glucose, Whole Blood 162 mg/dL (60-115)
[2024-11-21 06:37] LABS: Glucose, Whole Blood 189 mg/dL (60-115)
[2024-11-21 08:19] VITALS: BP 145/80; PULSE 87; RESP 16; TEMP 36.8; O2SAT 98
[2024-11-21] MEDS: Fluticasone/Vilanterol 100/25 BLST.W.DEV 1 PUFF INHALE (08:20)
[2024-11-21 08:46] VITALS: BMI 22.9
[2024-11-21 11:28] LABS: Glucose, Whole Blood 196 mg/dL (60-115)
--- NOTE | 2024-11-21 12:01 | HO.PSYCHPN ---
Subjective Subjective Date of Service: 11/21/24 Reason For Visit: SI with plan to OD on medications, increased anxie Subjective Notes: Conditional Voluntary Interim History: Pt reports she actually had very restful sleep last night. She was started on ropinirole, higher dose some hours prior to bedtime. She has still some rest leg movement but seems less today. She also presents as much less dysphoric and calmer. She reports some dizziness, not light headed, does report feeling at times maybe room spinning but not always. No unsteady gait. She is tolerating medications. She is also appears less somatically preoccupied. She has been able to participate in groups. She has been visible on the unit and social with select peers. Mental Status Exam Mental Status Exam Narrative: Appearance:casual attire, bruises on face, good hygiene, in NAD Behavior: calmer Orientation: alert, generally oriented to person, place, time Memory: grossly intact to recent/remote events Attention: able to attend to the encounter discussion Psychomotor Function: pacing Speech: normal rate, tone, volume Mood: better Affect: congruent, less dysphoric. Thought Process: perseverative Thought Content: less fixation on somatic concerns, denies SI/HI Hallucinations: denies AVH delusions: somatic preoccupation Insight: impairment Judgment: impairment Impulsivity: low frustration tolerance. Diagnostics Vital Signs (24Hr): Vital Signs - 24 hr 11/20/24 20:00 11/21/24 08:19 Temperature 97.8 F 98.2 F Pulse Rate 88 87 Respiratory Rate 16 16 Blood Pressure 119/62 145/80 H Pulse Oximetry 99 98 Oxygen Delivery Method Room Air Room Air BMI result Body Mass Index 22.9 Labs 11/02/24 20:14 11/20/24 11:02 Labs: Laboratory Results - last 48 hr 11/19/24 11/19/24 11/20/24 15:59 19:50 06:36 Sodium Potassium Chloride Carbon Dioxide Anion Gap BUN Creatinine Estim Creat Clear Calc Estimated GFR POC Glucose 110 205 H 165 H Random Glucose Estimat Average Glucose Hemoglobin A1c % Calcium 11/20/24 11/20/24 11/20/24 11:02 11:33 16:23 Sodium 137 Potassium 4.7 Chloride 102 Carbon Dioxide 27 Anion Gap 13 BUN 23 H Creatinine 0.99 Estim Creat Clear Calc 34.0 Estimated GFR 55 POC Glucose 106 202 H Random Glucose 129 H Estimat Average Glucose 154 Hemoglobin A1c % 7.0 H Calcium 9.5 11/20/24 11/21/24 11/21/24 20:46 06:31 11:24 Sodium Potassium Chloride Carbon Dioxide Anion Gap BUN Creatinine Estim Creat Clear Calc Estimated GFR POC Glucose 162 H 189 H 196 H Random Glucose Estimat Average Glucose Hemoglobin A1c % Calcium Imaging Radiology Impressions: ITS Impressions Hip/Pelvis X-Ray 11/05/24 11:00 IMPRESSION: Unremarkable examination of the left hip. Electronically signed by: Sam Saini MD 11/05/2024 11:13 AM EDT RP KUB X-Ray 11/06/24 09:20 IMPRESSION: Large amount of stool throughout the colon. Electronically signed by: Sam Saini MD 11/06/2024 09:34 AM EDT RP Head CT 11/08/24 14:58 IMPRESSION: Left frontal soft tissue swelling. No acute intracranial abnormality. Electronically signed by: Sam Saini MD 11/08/2024 03:18 PM EDT RP Medications Medications Current Medications Acetaminophen (Acetaminophen 325 Mg Tablet) 650 mg PO Q6H PRN PRN Reason: Headache/Pain, Scale 1-10 Last Admin: 11/20/24 20:14 Dose: 650 mg Al Hydroxide/Mg Hydroxide (Magnesium Hydrox/Alum Hydrox 30 Ml Oral.Susp) 30 ml PO Q6H PRN PRN Reason: Heartburn/Nausea Last Admin: 11/18/24 10:28 Dose: 30 ml Albuterol Sulfate (Albuterol Sulfate 90 Mcg 8 Gm Inhaler) 2 puff INHALE Q4H PRN PRN Reason: Shortness Of Breath Or Wheezin Amlodipine Besylate (Amlodipine Besylate 2.5 Mg Tablet) 2.5 mg PO DAILY [facility]; Protocol Last Admin: 11/21/24 08:22 Dose: 2.5 mg Atorvastatin Calcium (Atorvastatin Calcium 20 Mg Tablet) 20 mg PO DAILY [facility] Last Admin: 11/21/24 08:22 Dose: 20 mg Bisacodyl (Bisacodyl 10 Mg Supp.Rect) 10 mg AK BEDTIME PRN PRN Reason: Constipation Last Admin: 11/04/24 20:37 Dose: 10 mg Buspirone HCl (Buspirone Hcl 10 Mg Tablet) 20 mg PO TID [facility] Last Admin: 11/21/24 08:22 Dose: 20 mg Dicyclomine HCl (Dicyclomine Hcl 10 Mg Capsule) 10 mg PO Q4H PRN PRN Reason: abdominal cramping Last Admin: 11/18/24 21:17 Dose: 10 mg Docusate Sodium (Docusate Sodium 100 Mg Capsule) 100 mg PO BID [facility] Last Admin: 11/21/24 08:22 Dose: 100 mg Duloxetine HCl (Duloxetine Hcl 60 Mg Capsule.Dr) 60 mg PO DAILY [facility] Last Admin: 11/21/24 08:22 Dose: 60 mg Fluticasone/Vilanterol (Fluticasone/Vilanterol 100/25 Blst.W.Dev) 1 puff INHALE RDAILY [facility] Last Admin: 11/21/24 08:20 Dose: 1 puff Gabapentin (Gabapentin 100 Mg Capsule) 100 mg PO TID [facility] Last Admin: 11/21/24 08:23 Dose: 100 mg Glipizide (Glipizide Xl 2.5 Mg Tab.Er.24) 2.5 mg PO DAILY [facility] Last Admin: 11/21/24 08:22 Dose: 2.5 mg Lisinopril (Lisinopril 2.5 Mg Tablet) 2.5 mg PO DAILY [facility]; Protocol Last Admin: 11/21/24 08:23 Dose: 2.5 mg Magnesium Hydroxide (Milk Of Magnesia 30 Ml Oral.Susp) 30 ml PO DAILY PRN PRN Reason: Constipation Last Admin: 11/04/24 16:49 Dose: 30 ml Mirtazapine (Mirtazapine 30 Mg Tablet) 30 mg PO BEDTIME [facility] Last Admin: 11/20/24 20:14 Dose: 30 mg Omeprazole (Omeprazole 20 Mg Capsule.Dr) 20 mg PO BID@0630,1630 [facility] Last Admin: 11/21/24 06:10 Dose: 20 mg Ondansetron HCl (Ondansetron Odt 4 Mg Tab.Rapdis) 4 mg TRANSLINGU Q4H PRN PRN Reason: Nausea and Vomiting Last Admin: 11/20/24 06:35 Dose: 4 mg Polyethylene Glycol (Polyethylene Glycol 3350 17 Gm Powd.Pack) 17 gm PO BID [facility] Last Admin: 11/21/24 08:21 Dose: 17 gm Pramipexole Dihydrochloride (Pramipexole Di-Hcl 0.125 Mg Tablet) 0.125 mg PO DAILY [facility] Last Admin: 11/21/24 08:22 Dose: 0.125 mg Pyridoxine HCl (Pyridoxine Hcl (Vitamin B6) 50 Mg Tablet) 50 mg PO DAILY [facility] Last Admin: 11/21/24 08:22 Dose: 50 mg Ropinirole HCl (Ropinirole Hcl 2 Mg Tablet) 2 mg PO DAILY@1700 [facility] Last Admin: 11/20/24 16:49 Dose: 2 mg Senna (Sennosides 8.6 Mg Tablet) 17.2 mg PO BEDTIME [facility] On Hold: 11/06/24 16:27 Last Admin: 11/05/24 19:39 Dose: 17.2 mg Simethicone (Simethicone 80 Mg Tab.Chew) 80 mg PO QIDWMHS [facility] Last Admin: 11/21/24 11:42 Dose: 80 mg Sitagliptin Phosphate (Sitagliptin Phosphate 25 Mg Tablet) 25 mg PO DAILY [facility] Last Admin: 11/21/24 08:22 Dose: 25 mg Trazodone HCl (Trazodone Hcl 50 Mg Tablet) 50 mg PO BEDTIME MRX1 PRN PRN Reason: Insomnia Last Admin: 11/20/24 20:14 Dose: 50 mg Allergies Allergies Allergy/AdvReac Type Severity Reaction Status Date / Time ampicillin Allergy Rash Verified 10/20/24 19:28 morphine Allergy Rash Verified 10/20/24 19:28 Penicillins Allergy Rash Verified 10/20/24 19:28 pork derived (porcine) Allergy Vomiting Verified 11/10/24 17:49 Assessment & Plan Assessment & Plan (1) MDD (major depressive disorder), recurrent episode, moderate: Status: Acute Code(s): F33.1 - Major depressive disorder, recurrent, moderate (2) 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 Barreto is a 78 year-old woman with hx of MDD who was assessed by N at request of her son who called 911 after pt had reported suicidal ideation with plan to OD. In the ED, pt adamantly denied suicidal ideation but reports feeling increasingly more depressed due to involuntary, ongoing movement of lower extremities. She attributes her depressed mood and increase anxious mood to RLS. She has also been treated as tardive akathisia, note that she was previously prescribed abilify. It is noted that she may have iron deficiency due to normocytic anemia which can exacerbate RLS. It is unclear which medications for hyperkinetic movements of the legs are actually helpful and furthermore it is not easily to differentiate whether it is tardive akathisia or RLS. She has been on psychotropic medications that are known to cause akathisia such as abilify. She reports subjective sense of restlessness. Involuntary movement seems to be throughout the day. We will have to do trial of medications that target akathisia such as propanolol and ativan versus medications such as pramipexol for RLS (note that in RLS there is an initial relief with dopamine agonist but can make it worse over time). In addition, will try iron deficiency as it is an underlying cause and exacerbating factor in RLS. PLAN 11/14 continue tx. will monitor before making substantial changes every day. 11/15 continue tx. pt somatically preoccupied. 11/16: Continue current management and treatment plan. 11/17: continue current management and treatment plan. 11/18 start buspar 10mg po TID for SHEILA. continue all other meds. 11/19 increase buspar 20mg po TID 11/20 appears calmer, less somatically preccupied. continue current medications. 11/21 sodium stable. continues to present as less dysphoric, calmer. reports of dizziness (VS not hotn nor orthostatic), ?vertigo, will try low dose of meclizine otherwise will consult hospitalist for further management. Reason for continued inpatient stay Substantial Risk for: inability to function Time Spent With Patient Time: Total time managing care of this patient today ____ minutes.
[2024-11-21] MEDS: Magnesium Hydrox/Alum Hydrox 30 ML ORAL.SUSP PO (13:30)
[2024-11-21 16:32] LABS: Glucose, Whole Blood 110 mg/dL (60-115)
[2024-11-21 20:00] VITALS: BP 142/65; PULSE 90; RESP 16; TEMP 36.2; O2SAT 99
[2024-11-21 21:20] LABS: Glucose, Whole Blood 138 mg/dL (60-115)
[2024-11-22 07:00] LABS: Glucose, Whole Blood 195 mg/dL (60-115)
[2024-11-22 08:00] VITALS: BP 130/79; PULSE 89; RESP 16; TEMP 36.3; O2SAT 98
[2024-11-22] MEDS: Fluticasone/Vilanterol 100/25 BLST.W.DEV 1 PUFF INHALE (08:37)
[2024-11-22] MEDS: Magnesium Hydrox/Alum Hydrox 30 ML ORAL.SUSP PO (10:57)
[2024-11-22 11:22] LABS: Glucose, Whole Blood 224 mg/dL (60-115)
[2024-11-22 16:33] LABS: Glucose, Whole Blood 129 mg/dL (60-115)
--- NOTE | 2024-11-22 18:05 | P.PNPSI_ITS ---
Subjective Subjective Date of Service: 11/22/24 Reason For Visit: SI with plan to OD on medications, increased anxie Subjective Notes: Conditional Voluntary Interim History: Pt reports sleeping better. She presents as less dysphoric and less anxious. She continues to report feeling dizziness, no ortho VS. was given one time dose of meclizine for vertigo but she reports not effective. will consult hospitalist. Medication Compliance: Yes Review of Systems Review of Systems Denies any shortness of breath, chest pain, no nausea vomiting or diarrhea reported. Occasional dizziness. Reports chronic abdominal pain. Yes all other systems are reviewed and are negative Mental Status Exam Mental Status Exam Narrative: Appearance:casual attire, bruises on face, good hygiene, in NAD Behavior: calmer Orientation: alert, generally oriented to person, place, time Memory: grossly intact to recent/remote events Attention: able to attend to the encounter discussion Psychomotor Function: pacing Speech: normal rate, tone, volume Mood: better Affect: congruent, less dysphoric. Thought Process: perseverative Thought Content: less fixation on somatic concerns, denies SI/HI Hallucinations: denies AVH delusions: somatic preoccupation Insight: impairment Judgment: impairment Impulsivity: low frustration tolerance. Diagnostics Vital Signs (24Hr): Vital Signs - 24 hr 11/21/24 20:00 11/22/24 08:00 Temperature 97.2 F 97.3 F Pulse Rate 90 89 Respiratory Rate 16 16 Blood Pressure 142/65 H 130/79 Pulse Oximetry 99 98 Oxygen Delivery Method Room Air Room Air BMI result Body Mass Index 22.9 Labs 11/02/24 20:14 11/20/24 11:02 Labs: Laboratory Results - last 48 hr 11/20/24 11/21/24 11/21/24 20:46 06:31 11:24 POC Glucose 162 H 189 H 196 H 11/21/24 11/21/24 11/22/24 16:25 21:16 06:56 POC Glucose 110 138 H 195 H 11/22/24 11/22/24 11:14 16:28 POC Glucose 224 H 129 H Imaging Radiology Impressions: ITS Impressions Hip/Pelvis X-Ray 11/05/24 11:00 IMPRESSION: Unremarkable examination of the left hip. Electronically signed by: Sam Saini MD 11/05/2024 11:13 AM EDT KUB X-Ray 11/06/24 09:20 IMPRESSION: Large amount of stool throughout the colon. Electronically signed by: Sam Saini MD 11/06/2024 09:34 AM EDT RP Head CT 11/08/24 14:58 IMPRESSION: Left frontal soft tissue swelling. No acute intracranial abnormality. Electronically signed by: Sam Saini MD 11/08/2024 03:18 PM EDT RP Medications Medications Current Medications Acetaminophen (Acetaminophen 325 Mg Tablet) 650 mg PO Q6H PRN PRN Reason: Headache/Pain, Scale 1-10 Last Admin: 11/22/24 11:54 Dose: 650 mg Al Hydroxide/Mg Hydroxide (Magnesium Hydrox/Alum Hydrox 30 Ml Oral.Susp) 30 ml PO Q6H PRN PRN Reason: Heartburn/Nausea Last Admin: 11/22/24 10:57 Dose: 30 ml Albuterol Sulfate (Albuterol Sulfate 90 Mcg 8 Gm Inhaler) 2 puff INHALE Q4H PRN PRN Reason: Shortness Of Breath Or Wheezin Amlodipine Besylate (Amlodipine Besylate 2.5 Mg Tablet) 2.5 mg PO DAILY [facility]; Protocol Last Admin: 11/22/24 08:38 Dose: 2.5 mg Atorvastatin Calcium (Atorvastatin Calcium 20 Mg Tablet) 20 mg PO DAILY [facility] Last Admin: 11/22/24 08:38 Dose: 20 mg Bisacodyl (Bisacodyl 10 Mg Supp.Rect) 10 mg IN BEDTIME PRN PRN Reason: Constipation Last Admin: 11/04/24 20:37 Dose: 10 mg Buspirone HCl (Buspirone Hcl 10 Mg Tablet) 20 mg PO TID [facility] Last Admin: 11/22/24 15:10 Dose: 20 mg Dicyclomine HCl (Dicyclomine Hcl 10 Mg Capsule) 10 mg PO Q4H PRN PRN Reason: abdominal cramping Last Admin: 11/18/24 21:17 Dose: 10 mg Docusate Sodium (Docusate Sodium 100 Mg Capsule) 100 mg PO BID [facility] Last Admin: 11/22/24 08:38 Dose: 100 mg Duloxetine HCl (Duloxetine Hcl 60 Mg Capsule.Dr) 60 mg PO DAILY [facility] Last Admin: 11/22/24 08:38 Dose: 60 mg Fluticasone/Vilanterol (Fluticasone/Vilanterol 100/25 Blst.W.Dev) 1 puff INHALE RDAILY [facility] Last Admin: 11/22/24 08:37 Dose: 1 puff Gabapentin (Gabapentin 100 Mg Capsule) 100 mg PO TID [facility] Last Admin: 11/22/24 15:10 Dose: 100 mg Glipizide (Glipizide Xl 2.5 Mg Tab.Er.24) 2.5 mg PO DAILY [facility] Last Admin: 11/22/24 08:39 Dose: 2.5 mg Lisinopril (Lisinopril 2.5 Mg Tablet) 2.5 mg PO DAILY [facility]; Protocol Last Admin: 11/22/24 08:38 Dose: 2.5 mg Magnesium Hydroxide (Milk Of Magnesia 30 Ml Oral.Susp) 30 ml PO DAILY PRN PRN Reason: Constipation Last Admin: 11/04/24 16:49 Dose: 30 ml Mirtazapine (Mirtazapine 30 Mg Tablet) 30 mg PO BEDTIME [facility] Last Admin: 11/21/24 20:17 Dose: 30 mg Omeprazole (Omeprazole 20 Mg Capsule.Dr) 20 mg PO BID@0630,1630 [facility] Last Admin: 11/22/24 15:10 Dose: 20 mg Ondansetron HCl (Ondansetron Odt 4 Mg Tab.Rapdis) 4 mg TRANSLINGU Q4H PRN PRN Reason: Nausea and Vomiting Last Admin: 11/20/24 06:35 Dose: 4 mg Polyethylene Glycol (Polyethylene Glycol 3350 17 Gm Powd.Pack) 17 gm PO BID [facility] Last Admin: 11/22/24 08:41 Dose: Not Given Pramipexole Dihydrochloride (Pramipexole Di-Hcl 0.125 Mg Tablet) 0.125 mg PO DAILY [facility] Last Admin: 11/22/24 08:38 Dose: 0.125 mg Pyridoxine HCl (Pyridoxine Hcl (Vitamin B6) 50 Mg Tablet) 50 mg PO DAILY [facility] Last Admin: 11/22/24 08:38 Dose: 50 mg Ropinirole HCl (Ropinirole Hcl 2 Mg Tablet) 4 mg PO DAILY@1700 [facility] Last Admin: 11/22/24 17:48 Dose: 4 mg Senna (Sennosides 8.6 Mg Tablet) 17.2 mg PO BEDTIME [facility] On Hold: 11/06/24 16:27 Last Admin: 11/05/24 19:39 Dose: 17.2 mg Simethicone (Simethicone 80 Mg Tab.Chew) 80 mg PO QIDWMHS [facility] Last Admin: 11/22/24 17:48 Dose: 80 mg Sitagliptin Phosphate (Sitagliptin Phosphate 25 Mg Tablet) 25 mg PO DAILY [facility] Last Admin: 11/22/24 08:38 Dose: 25 mg Trazodone HCl (Trazodone Hcl 50 Mg Tablet) 50 mg PO BEDTIME MRX1 PRN PRN Reason: Insomnia Last Admin: 11/20/24 20:14 Dose: 50 mg Allergies Allergies Allergy/AdvReac Type Severity Reaction Status Date / Time ampicillin Allergy Rash Verified 10/20/24 19:28 morphine Allergy Rash Verified 10/20/24 19:28 Penicillins Allergy Rash Verified 10/20/24 19:28 pork derived (porcine) Allergy Vomiting Verified 11/10/24 17:49 Assessment & Plan Assessment & Plan (1) MDD (major depressive disorder), recurrent episode, moderate: Status: Acute Code(s): F33.1 - Major depressive disorder, recurrent, moderate (2) 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 Barreto is a 78 year-old woman with hx of MDD who was assessed by N at request of her son who called 911 after pt had reported suicidal ideation with plan to OD. In the ED, pt adamantly denied suicidal ideation but reports feeling increasingly more depressed due to involuntary, ongoing movement of lower extremities. She attributes her depressed mood and increase anxious mood to RLS. She has also been treated as tardive akathisia, note that she was previously prescribed abilify. It is noted that she may have iron deficiency due to normocytic anemia which can exacerbate RLS. It is unclear which medications for hyperkinetic movements of the legs are actually helpful and furthermore it is not easily to differentiate whether it is tardive akathisia or RLS. She has been on psychotropic medications that are known to cause akathisia such as abilify. She reports subjective sense of restlessness. Involuntary movement seems to be throughout the day. We will have to do trial of medications that target akathisia such as propanolol and ativan versus medications such as pramipexol for RLS (note that in RLS there is an initial relief with dopamine agonist but can make it worse over time). In addition, will try iron deficiency as it is an underlying cause and exacerbating factor in RLS. PLAN 11/14 continue tx. will monitor before making substantial changes every day. 11/15 continue tx. pt somatically preoccupied. 11/16: Continue current management and treatment plan. 11/17: continue current management and treatment plan. 11/18 start buspar 10mg po TID for SHEILA. continue all other meds. 11/19 increase buspar 20mg po TID 11/20 appears calmer, less somatically preccupied. continue current medications. 11/21 sodium stable. continues to present as less dysphoric, calmer. reports of dizziness (VS not hotn nor orthostatic), ?vertigo, will try low dose of meclizine otherwise will consult hospitalist for further management. 11/22 continue tx. order consult for dizziness, not orthostatic, unclear if vertigo. Reason for continued inpatient stay Substantial Risk for: inability to function Time Spent With Patient Time: Total time managing care of this patient today ____ minutes.
[2024-11-22 20:00] VITALS: BP 134/80; PULSE 80; RESP 18; TEMP 36.2; O2SAT 98
[2024-11-22 21:12] LABS: Glucose, Whole Blood 94 mg/dL (60-115)
[2024-11-23 06:22] LABS: Glucose, Whole Blood 191 mg/dL (60-115)
[2024-11-23] MEDS: Fluticasone/Vilanterol 100/25 BLST.W.DEV 1 PUFF INHALE (08:00)
[2024-11-23 08:04] VITALS: BP 133/85; PULSE 94; RESP 17; TEMP 36.3; O2SAT 100
--- NOTE | 2024-11-23 08:42 | P.PNPSI_ITS ---
Subjective Subjective Date of Service: 11/23/24 Reason For Visit: SI with plan to OD on medications, increased anxie Subjective Notes: Conditional Voluntary Medical Problems Affecting Mental Status: Yes (neurocog disorder,) Interim History: 78 yo stays perseveration around gi/despite change to no lactose diet- co slight abd pain, and less appetite- I make myself eat Nursing reports pt no longer needs bs qid or insulin qid but poc still being checked, and annoys patient- most abd issues they feel resolved with dairy free diet Patient identifies cycle of anxious then forgetful then more anxious -over and over Medication Compliance: Yes Side effects from medications: No Attending Groups: Intermittent Review of Systems Acute medical concerns: No no longer co vertigo today , now abd focus- Review of Systems: no change other than as stated above- Mental Status Exam Mental Status Exam Patient Appearance: Appropriate Patient Orientation: Person, Place and Situation Level of Consciousness: Awake Patient Behavior: Anxious Mood Description: Apprehensive Affect Description: Constricted Patient Cognition Impaired: Yes Ability to Follow Directions: Fair Speech Pattern: Clear Delusions: Not Present Thought Process: Intact and Distracted Thought Content: positive for [place] and positive for Perseveration (somatic) Depressive Symptoms: Increased Anxiety and Unexplained Stomach Pain Judgement: Fair Diagnostics Vital Signs (24Hr): Vital Signs - 24 hr 11/22/24 20:00 11/23/24 08:04 Temperature 97.2 F 97.3 F Pulse Rate 80 94 Respiratory Rate 18 17 Blood Pressure 134/80 133/85 Pulse Oximetry 98 100 Oxygen Delivery Method Room Air Room Air BMI result Body Mass Index 22.9 Labs 11/02/24 20:14 11/20/24 11:02 Labs: Laboratory Results - last 48 hr 11/21/24 11/21/24 11/21/24 11:24 16:25 21:16 POC Glucose 196 H 110 138 H 11/22/24 11/22/24 11/22/24 06:56 11:14 16:28 POC Glucose 195 H 224 H 129 H 11/22/24 11/23/24 21:06 06:14 POC Glucose 94 191 H Imaging Radiology Impressions: ITS Impressions Hip/Pelvis X-Ray 11/05/24 11:00 IMPRESSION: Unremarkable examination of the left hip. Electronically signed by: Sam Saini MD 11/05/2024 11:13 AM EDT RP KUB X-Ray 11/06/24 09:20 IMPRESSION: Large amount of stool throughout the colon. Electronically signed by: Sam Saini MD 11/06/2024 09:34 AM EDT RP Head CT 11/08/24 14:58 IMPRESSION: Left frontal soft tissue swelling. No acute intracranial abnormality. Electronically signed by: Sam Saini MD 11/08/2024 03:18 PM EDT RP Medications Medications Current Medications Acetaminophen (Acetaminophen 325 Mg Tablet) 650 mg PO Q6H PRN PRN Reason: Headache/Pain, Scale 1-10 Last Admin: 11/22/24 20:58 Dose: 650 mg Al Hydroxide/Mg Hydroxide (Magnesium Hydrox/Alum Hydrox 30 Ml Oral.Susp) 30 ml PO Q6H PRN PRN Reason: Heartburn/Nausea Last Admin: 11/22/24 10:57 Dose: 30 ml Albuterol Sulfate (Albuterol Sulfate 90 Mcg 8 Gm Inhaler) 2 puff INHALE Q4H PRN PRN Reason: Shortness Of Breath Or Wheezin Amlodipine Besylate (Amlodipine Besylate 2.5 Mg Tablet) 2.5 mg PO DAILY [facility]; Protocol Last Admin: 11/23/24 08:05 Dose: 2.5 mg Atorvastatin Calcium (Atorvastatin Calcium 20 Mg Tablet) 20 mg PO DAILY [facility] Last Admin: 11/23/24 08:02 Dose: 20 mg Bisacodyl (Bisacodyl 10 Mg Supp.Rect) 10 mg [place] BEDTIME PRN PRN Reason: Constipation Last Admin: 11/04/24 20:37 Dose: 10 mg Buspirone HCl (Buspirone Hcl 10 Mg Tablet) 20 mg PO TID [facility] Last Admin: 11/23/24 08:01 Dose: 20 mg Dicyclomine HCl (Dicyclomine Hcl 10 Mg Capsule) 10 mg PO Q4H PRN PRN Reason: abdominal cramping Last Admin: 11/18/24 21:17 Dose: 10 mg Docusate Sodium (Docusate Sodium 100 Mg Capsule) 100 mg PO BID [facility] Last Admin: 11/23/24 08:01 Dose: 100 mg Duloxetine HCl (Duloxetine Hcl 60 Mg Capsule.Dr) 60 mg PO DAILY [facility] Last Admin: 11/23/24 08:00 Dose: 60 mg Fluticasone/Vilanterol (Fluticasone/Vilanterol 100/25 Blst.W.Dev) 1 puff INHALE RDAILY [facility] Last Admin: 11/23/24 08:00 Dose: 1 puff Gabapentin (Gabapentin 100 Mg Capsule) 100 mg PO TID [facility] Last Admin: 11/23/24 08:02 Dose: 100 mg Glipizide (Glipizide Xl 2.5 Mg Tab.Er.24) 2.5 mg PO DAILY [facility] Last Admin: 11/23/24 08:02 Dose: 2.5 mg Lisinopril (Lisinopril 2.5 Mg Tablet) 2.5 mg PO DAILY [facility]; Protocol Last Admin: 11/23/24 08:05 Dose: 2.5 mg Magnesium Hydroxide (Milk Of Magnesia 30 Ml Oral.Susp) 30 ml PO DAILY PRN PRN Reason: Constipation Last Admin: 11/04/24 16:49 Dose: 30 ml Mirtazapine (Mirtazapine 30 Mg Tablet) 30 mg PO BEDTIME [facility] Last Admin: 11/22/24 20:59 Dose: 30 mg Omeprazole (Omeprazole 20 Mg Capsule.Dr) 20 mg PO BID@0630,1630 [facility] Last Admin: 11/23/24 06:12 Dose: 20 mg Ondansetron HCl (Ondansetron Odt 4 Mg Tab.Rapdis) 4 mg TRANSLINGU Q4H PRN PRN Reason: Nausea and Vomiting Last Admin: 11/20/24 06:35 Dose: 4 mg Polyethylene Glycol (Polyethylene Glycol 3350 17 Gm Powd.Pack) 17 gm PO BID [facility] Last Admin: 11/23/24 08:07 Dose: Not Given Pramipexole Dihydrochloride (Pramipexole Di-Hcl 0.125 Mg Tablet) 0.125 mg PO DAILY [facility] Last Admin: 11/23/24 08:02 Dose: 0.125 mg Pyridoxine HCl (Pyridoxine Hcl (Vitamin B6) 50 Mg Tablet) 50 mg PO DAILY [facility] Last Admin: 11/23/24 08:03 Dose: 50 mg Ropinirole HCl (Ropinirole Hcl 2 Mg Tablet) 4 mg PO DAILY@1700 [facility] Last Admin: 11/22/24 17:48 Dose: 4 mg Senna (Sennosides 8.6 Mg Tablet) 17.2 mg PO BEDTIME [facility] On Hold: 11/06/24 16:27 Last Admin: 11/05/24 19:39 Dose: 17.2 mg Simethicone (Simethicone 80 Mg Tab.Chew) 80 mg PO QIDWMHS [facility] Last Admin: 11/23/24 08:06 Dose: 80 mg Sitagliptin Phosphate (Sitagliptin Phosphate 25 Mg Tablet) 25 mg PO DAILY [facility] Last Admin: 11/23/24 08:01 Dose: 25 mg Trazodone HCl (Trazodone Hcl 50 Mg Tablet) 50 mg PO BEDTIME MRX1 PRN PRN Reason: Insomnia Last Admin: 11/22/24 20:59 Dose: 50 mg Allergies Allergies Allergy/AdvReac Type Severity Reaction Status Date / Time ampicillin Allergy Rash Verified 10/20/24 19:28 morphine Allergy Rash Verified 10/20/24 19:28 Penicillins Allergy Rash Verified 10/20/24 19:28 pork derived (porcine) Allergy Vomiting Verified 11/10/24 17:49 Assessment & Plan Assessment & Plan (1) MDD (major depressive disorder), recurrent episode, moderate: Status: Acute Code(s): F33.1 - Major depressive disorder, recurrent, moderate (2) 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 Barreto is a 78 year-old woman with hx of MDD who was assessed by N at request of her son who called 911 after pt had reported suicidal ideation with plan to OD. In the ED, pt adamantly denied suicidal ideation but reports feeling increasingly more depressed due to involuntary, ongoing movement of lower extremities. She attributes her depressed mood and increase anxious mood to RLS. She has also been treated as tardive akathisia, note that she was previously prescribed abilify. It is noted that she may have iron deficiency due to normocytic anemia which can exacerbate RLS. It is unclear which medications for hyperkinetic movements of the legs are actually helpful and furthermore it is not easily to differentiate whether it is tardive akathisia or RLS. She has been on psychotropic medications that are known to cause akathisia such as abilify. She reports subjective sense of restlessness. Involuntary movement seems to be throughout the day. We will have to do trial of medications that target akathisia such as propanolol and ativan versus medications such as pramipexol for RLS (note that in RLS there is an initial relief with dopamine agonist but can make it worse over time). In addition, will try iron deficiency as it is an underlying cause and exacerbating factor in RLS. PLAN 11/14 continue tx. will monitor before making substantial changes every day. 11/15 continue tx. pt somatically preoccupied. 11/16: Continue current management and treatment plan. 11/17: continue current management and treatment plan. 11/18 start buspar 10mg po TID for SHEILA. continue all other meds. 11/19 increase buspar 20mg po TID 11/20 appears calmer, less somatically preccupied. continue current medications. 11/21 sodium stable. continues to present as less dysphoric, calmer. reports of dizziness (VS not hotn nor orthostatic), ?vertigo, will try low dose of meclizine otherwise will consult hospitalist for further management. 8.2- pt more focused on gi issues- and anxiety/forgetfulness- continue to monitor somatic complaints- dc qid poc Patient educated on: diagnosis and medical condition Informed Consent: understands Reason for continued inpatient stay Substantial Risk for: inability to function and med/psych decompensation Time Spent With Patient Time: Total time managing care of this patient today ____ minutes.
[2024-11-23 11:28] LABS: Glucose, Whole Blood 188 mg/dL (60-115)
--- NOTE | 2024-11-23 19:18 | PM.EVENT ---
Event Note Date of Service: 11/23/24 Event Note: Pt is a 78-year-old female admitted to [facility] with hospitalist consult for dizziness with question of vertigo. Pt seen and examined on the unit where she is sitting in the common area. 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 Pt states she gets ?drowsy? and fogginess? in thinking soon after taking a new medication she was prescribed a few days ago. Pt denies lightheadedness or dizziness. No vertigo or room spinning symptoms. States her symptoms are more of a ?fog? that makes it difficult to think, especially when she is nervous. Pt denies any presyncopal symptoms or feeling like she is going to pass out. Symptoms are not positional. Overall, did appears that there may be something of a language barrier with this consultation. Pt does not appear to be experiencing presyncope, lightheadedness, dizziness, or vertigo-like symptoms. Appears iatrogenic and likely secondary to BuSpar which pt recently started taking. Would suggest holding medication for now and seeing if symptoms of fogginess and thinking resolved. Time Spent With Patient Time: Total time managing care of this patient today ____ minutes.
[2024-11-23 20:00] VITALS: BP 143/66; PULSE 79; RESP 16; TEMP 36.4; O2SAT 98
[2024-11-23] MEDS: Magnesium Hydrox/Alum Hydrox 30 ML ORAL.SUSP PO (20:22)
[2024-11-24 06:30] LABS: Glucose, Whole Blood 184 mg/dL (60-115)
[2024-11-24 08:00] VITALS: BP 169/87; PULSE 89; RESP 17; TEMP 36.4; O2SAT 98
[2024-11-24 08:36] VITALS: BP 169/87
[2024-11-24 08:37] VITALS: BP 169/87
[2024-11-24] MEDS: Fluticasone/Vilanterol 100/25 BLST.W.DEV 1 PUFF INHALE (08:38)
[2024-11-24] MEDS: Magnesium Hydrox/Alum Hydrox 30 ML ORAL.SUSP PO (13:47)
[2024-11-24] MEDS: clonazePAM ODT 0.125 MG TAB.RAPDIS 0.25 MG PO (16:59)
[2024-11-24 19:59] VITALS: BP 137/63; PULSE 89; RESP 18; TEMP 36.6; O2SAT 98
[2024-11-25 06:51] LABS: Glucose, Whole Blood 167 mg/dL (60-115)
[2024-11-25 08:53] VITALS: BP 123/62; PULSE 101; RESP 16; TEMP 36.9; O2SAT 97
[2024-11-25] MEDS: Fluticasone/Vilanterol 100/25 BLST.W.DEV 1 PUFF INHALE (08:56)
--- NOTE | 2024-11-25 08:57 | P.PNPSI_ITS ---
Subjective Subjective Date of Service: 11/25/24 Reason For Visit: SI with plan to OD on medications, increased anxie Subjective Notes: Conditional Voluntary Interim History: Pt reports she is afraid of peer who can become combative, pt reassure peer has one to one. Pt again has multiple somatic complaints, but tried to remind her that last week she had a better week than previous week and drastic changes will only lead to again her feeling very dysphoric. She reports feeling foggy, which is new report. She denies dizziness which is what she was reporting the most last week. Review of Systems Review of Systems Denies any shortness of breath, chest pain, no nausea vomiting or diarrhea reported. Occasional dizziness. Reports chronic abdominal pain. Yes all other systems are reviewed and are negative Mental Status Exam Mental Status Exam Narrative: Appearance:casual attire, bruises on face, good hygiene, in NAD Behavior: calmer Orientation: alert, generally oriented to person, place, time Memory: grossly intact to recent/remote events Attention: able to attend to the encounter discussion Psychomotor Function: pacing Speech: normal rate, tone, volume Mood: better Affect: congruent, less dysphoric. Thought Process: perseverative Thought Content: less fixation on somatic concerns, denies SI/HI Hallucinations: denies AVH delusions: somatic preoccupation Insight: impairment Judgment: impairment Impulsivity: low frustration tolerance. Diagnostics Vital Signs (24Hr): Vital Signs - 24 hr 11/24/24 19:59 11/25/24 08:53 Temperature 97.8 F 98.5 F Pulse Rate 89 101 H Respiratory Rate 18 16 Blood Pressure 137/63 123/62 Pulse Oximetry 98 97 Oxygen Delivery Method Room Air BMI result Body Mass Index 22.9 Labs 11/02/24 20:14 11/20/24 11:02 Labs: Laboratory Results - last 48 hr 11/23/24 11/24/24 11/25/24 11:22 06:16 06:42 POC Glucose 188 H 184 H 167 H Imaging Radiology Impressions: ITS Impressions Hip/Pelvis X-Ray 11/05/24 11:00 IMPRESSION: Unremarkable examination of the left hip. Electronically signed by: Sam Saini MD 11/05/2024 11:13 AM EDT RP KUB X-Ray 11/06/24 09:20 IMPRESSION: Large amount of stool throughout the colon. Electronically signed by: Sam Saini MD 11/06/2024 09:34 AM EDT RP Head CT 11/08/24 14:58 IMPRESSION: Left frontal soft tissue swelling. No acute intracranial abnormality. Electronically signed by: Sam Saini MD 11/08/2024 03:18 PM EDT RP Medications Medications Current Medications Acetaminophen (Acetaminophen 325 Mg Tablet) 650 mg PO Q6H PRN PRN Reason: Headache/Pain, Scale 1-10 Last Admin: 11/24/24 20:10 Dose: 650 mg Al Hydroxide/Mg Hydroxide (Magnesium Hydrox/Alum Hydrox 30 Ml Oral.Susp) 30 ml PO Q6H PRN PRN Reason: Heartburn/Nausea Last Admin: 11/24/24 13:47 Dose: 30 ml Albuterol Sulfate (Albuterol Sulfate 90 Mcg 8 Gm Inhaler) 2 puff INHALE Q4H PRN PRN Reason: Shortness Of Breath Or Wheezin Amlodipine Besylate (Amlodipine Besylate 2.5 Mg Tablet) 2.5 mg PO DAILY [facility]; Protocol Last Admin: 11/24/24 08:36 Dose: 2.5 mg Atorvastatin Calcium (Atorvastatin Calcium 20 Mg Tablet) 20 mg PO DAILY [facility] Last Admin: 11/24/24 08:37 Dose: 20 mg Bisacodyl (Bisacodyl 10 Mg Supp.Rect) [address] BEDTIME PRN PRN Reason: Constipation Last Admin: 11/04/24 20:37 Dose: 10 mg Buspirone HCl (Buspirone Hcl 10 Mg Tablet) 10 mg PO TID [facility] Last Admin: 11/24/24 20:11 Dose: 10 mg Clonazepam (Clonazepam Odt 0.125 Mg Tab.Rapdis) 0.25 mg PO BID PRN PRN Reason: anxiety/restlessness Last Admin: 11/24/24 16:59 Dose: 0.25 mg Dicyclomine HCl (Dicyclomine Hcl 10 Mg Capsule) 10 mg PO Q4H PRN PRN Reason: abdominal cramping Last Admin: 11/23/24 14:52 Dose: 10 mg Docusate Sodium (Docusate Sodium 100 Mg Capsule) 100 mg PO BID [facility] Last Admin: 11/24/24 20:10 Dose: Not Given Duloxetine HCl (Duloxetine Hcl 60 Mg Capsule.) 60 mg PO DAILY [facility] Last Admin: 11/24/24 08:38 Dose: 60 mg Fluticasone/Vilanterol (Fluticasone/Vilanterol 100/25 Blst.W.Dev) 1 puff INHALE RDAILY [facility] Last Admin: 11/24/24 08:38 Dose: 1 puff Gabapentin (Gabapentin 100 Mg Capsule) 100 mg PO TID [facility] Last Admin: 11/24/24 20:11 Dose: 100 mg Glipizide (Glipizide Xl 2.5 Mg Tab.Er.24) 2.5 mg PO DAILY [facility] Last Admin: 11/24/24 08:37 Dose: 2.5 mg Hydroxyzine HCl (Hydroxyzine Hcl 10 Mg Tablet) 10 mg PO Q6H PRN PRN Reason: anxiety/restlessness Last Admin: 11/24/24 15:56 Dose: 10 mg Lisinopril (Lisinopril 2.5 Mg Tablet) 2.5 mg PO DAILY [facility]; Protocol Last Admin: 11/24/24 08:37 Dose: 2.5 mg Magnesium Hydroxide (Milk Of Magnesia 30 Ml Oral.Susp) 30 ml PO DAILY PRN PRN Reason: Constipation Last Admin: 11/04/24 16:49 Dose: 30 ml Mirtazapine (Mirtazapine 30 Mg Tablet) 30 mg PO BEDTIME [facility] Last Admin: 11/24/24 20:11 Dose: 30 mg Omeprazole (Omeprazole 20 Mg Capsule.) 20 mg PO BID@0630,1630 [facility] Last Admin: 11/25/24 06:40 Dose: 20 mg Ondansetron HCl (Ondansetron Odt 4 Mg Tab.Rapdis) 4 mg TRANSLINGU Q4H PRN PRN Reason: Nausea and Vomiting Last Admin: 11/24/24 20:10 Dose: 4 mg Polyethylene Glycol (Polyethylene Glycol 3350 17 Gm Powd.Pack) 17 gm PO BID [facility] Last Admin: 11/24/24 20:10 Dose: Not Given Pramipexole Dihydrochloride (Pramipexole Di-Hcl 0.125 Mg Tablet) 0.125 mg PO DAILY [facility] Last Admin: 11/24/24 08:36 Dose: 0.125 mg Pyridoxine HCl (Pyridoxine Hcl (Vitamin B6) 50 Mg Tablet) 50 mg PO DAILY [facility] Last Admin: 11/24/24 08:37 Dose: 50 mg Ropinirole HCl (Ropinirole Hcl 2 Mg Tablet) 4 mg PO DAILY@1700 [facility] Last Admin: 11/24/24 17:57 Dose: 4 mg Senna (Sennosides 8.6 Mg Tablet) 17.2 mg PO BEDTIME [facility] On Hold: 11/06/24 16:27 Last Admin: 11/05/24 19:39 Dose: 17.2 mg Simethicone (Simethicone 80 Mg Tab.Chew) 80 mg PO QIDWMHS [facility] Last Admin: 11/24/24 20:11 Dose: 80 mg Sitagliptin Phosphate (Sitagliptin Phosphate 25 Mg Tablet) 25 mg PO DAILY [facility] Last Admin: 11/24/24 08:36 Dose: 25 mg Trazodone HCl (Trazodone Hcl 50 Mg Tablet) 50 mg PO BEDTIME MRX1 PRN PRN Reason: Insomnia Last Admin: 11/22/24 20:59 Dose: 50 mg Allergies Allergies Allergy/AdvReac Type Severity Reaction Status Date / Time ampicillin Allergy Rash Verified 10/20/24 19:28 morphine Allergy Rash Verified 10/20/24 19:28 Penicillins Allergy Rash Verified 10/20/24 19:28 pork derived (porcine) Allergy Vomiting Verified 11/10/24 17:49 Assessment & Plan Assessment & Plan (1) MDD (major depressive disorder), recurrent episode, moderate: Status: Acute Code(s): F33.1 - Major depressive disorder, recurrent, moderate (2) 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 Barreto is a 78 year-old woman with hx of MDD who was assessed by N at request of her son who called 911 after pt had reported suicidal ideation with plan to OD. In the ED, pt adamantly denied suicidal ideation but reports feeling increasingly more depressed due to involuntary, ongoing movement of lower extremities. She attributes her depressed mood and increase anxious mood to RLS. She has also been treated as tardive akathisia, note that she was previously prescribed abilify. It is noted that she may have iron deficiency due to normocytic anemia which can exacerbate RLS. It is unclear which medications for hyperkinetic movements of the legs are actually helpful and furthermore it is not easily to differentiate whether it is tardive akathisia or RLS. She has been on psychotropic medications that are known to cause akathisia such as abilify. She reports subjective sense of restlessness. Involuntary movement seems to be throughout the day. We will have to do trial of medications that target akathisia such as propanolol and ativan versus medications such as pramipexol for RLS (note that in RLS there is an initial relief with dopamine agonist but can make it worse over time). In addition, will try iron deficiency as it is an underlying cause and exacerbating factor in RLS. PLAN 11/14 continue tx. will monitor before making substantial changes every day. 11/15 continue tx. pt somatically preoccupied. 11/16: Continue current management and treatment plan. 11/17: continue current management and treatment plan. 11/18 start buspar 10mg po TID for SHEILA. continue all other meds. 11/19 increase buspar 20mg po TID 11/20 appears calmer, less somatically preccupied. continue current medications. 11/21 sodium stable. continues to present as less dysphoric, calmer. reports of dizziness (VS not hotn nor orthostatic), ?vertigo, will try low dose of meclizine otherwise will consult hospitalist for further management. 8.2- pt more focused on gi issues- and anxiety/forgetfulness- continue to monitor somatic complaints- dc qid poc 11/25 will lowered ropinirole as it may increasing anxiety, noted that buspar was lowered, do not think this medication was causing fogginess as pt appeared much calmer since we added buspar. She was started on low dose clonazepam. Reason for continued inpatient stay Substantial Risk for: inability to function Time Spent With Patient Time: Total time managing care of this patient today ____ minutes.
[2024-11-25] MEDS: Magnesium Hydrox/Alum Hydrox 30 ML ORAL.SUSP PO (14:04)
[2024-11-25] MEDS: clonazePAM ODT 0.125 MG TAB.RAPDIS 0.25 MG PO ×2 (16:03→21:03)
[2024-11-25 20:00] VITALS: BP 108/55; PULSE 58; RESP 18; TEMP 36.7; O2SAT 100
[2024-11-26 06:29] LABS: Glucose, Whole Blood 166 mg/dL (60-115)
[2024-11-26 08:00] VITALS: BP 120/72; PULSE 91; RESP 16; TEMP 36.4; O2SAT 97
[2024-11-26] MEDS: Fluticasone/Vilanterol 100/25 BLST.W.DEV 1 PUFF INHALE (08:24)
--- NOTE | 2024-11-26 17:07 | P.PNPSI_ITS ---
Subjective Subjective Date of Service: 11/26/24 Reason For Visit: SI with plan to OD on medications, increased anxie Subjective Notes: Conditional Voluntary Interim History: Pt slept through the night. Pt continues to complaint about number of things, including anxiety, also fogginess. These complaints more evident when meeting with her as otherwise patient does appear calmer when on the unit. No SI/HI. No VH/AH. Had a one time dose of xanax but later reported feeling overly sedated, but was not looking sedated. Medication Compliance: Yes Review of Systems Review of Systems Denies any shortness of breath, chest pain, no nausea vomiting or diarrhea reported. Occasional dizziness. Reports chronic abdominal pain. Yes all other systems are reviewed and are negative Mental Status Exam Mental Status Exam Narrative: Appearance:casual attire, bruises on face, good hygiene, in NAD Behavior: calmer Orientation: alert, generally oriented to person, place, time Memory: grossly intact to recent/remote events Attention: able to attend to the encounter discussion Psychomotor Function: pacing Speech: normal rate, tone, volume Mood: better Affect: congruent, less dysphoric. Thought Process: perseverative Thought Content: less fixation on somatic concerns, denies SI/HI Hallucinations: denies AVH delusions: somatic preoccupation Insight: impairment Judgment: impairment Impulsivity: low frustration tolerance. Diagnostics Vital Signs (24Hr): Vital Signs - 24 hr 11/25/24 20:00 11/26/24 08:00 Temperature 98.1 F 97.6 F Pulse Rate 58 91 Respiratory Rate 18 16 Blood Pressure 108/55 L 120/72 Pulse Oximetry 100 97 Oxygen Delivery Method Room Air BMI result Body Mass Index 22.9 Labs 11/02/24 20:14 11/20/24 11:02 Labs: Laboratory Results - last 48 hr 11/25/24 11/26/24 06:42 06:23 POC Glucose 167 H 166 H Imaging Radiology Impressions: ITS Impressions Hip/Pelvis X-Ray 11/05/24 11:00 IMPRESSION: Unremarkable examination of the left hip. Electronically signed by: Sam Saini MD 11/05/2024 11:13 AM EDT KUB X-Ray 11/06/24 09:20 IMPRESSION: Large amount of stool throughout the colon. Electronically signed by: Sam Saini MD 11/06/2024 09:34 AM EDT RP Head CT 11/08/24 14:58 IMPRESSION: Left frontal soft tissue swelling. No acute intracranial abnormality. Electronically signed by: Sam Saini MD 11/08/2024 03:18 PM EDT RP Medications Medications Current Medications Acetaminophen (Acetaminophen 325 Mg Tablet) 650 mg PO Q6H PRN PRN Reason: Headache/Pain, Scale 1-10 Last Admin: 11/25/24 20:33 Dose: 650 mg Al Hydroxide/Mg Hydroxide (Magnesium Hydrox/Alum Hydrox 30 Ml Oral.Susp) 30 ml PO Q6H PRN PRN Reason: Heartburn/Nausea Last Admin: 11/25/24 14:04 Dose: 30 ml Albuterol Sulfate (Albuterol Sulfate 90 Mcg 8 Gm Inhaler) 2 puff INHALE Q4H PRN PRN Reason: Shortness Of Breath Or Wheezin Amlodipine Besylate (Amlodipine Besylate 2.5 Mg Tablet) 2.5 mg PO DAILY [facility]; Protocol Last Admin: 11/26/24 08:22 Dose: 2.5 mg Atorvastatin Calcium (Atorvastatin Calcium 20 Mg Tablet) 20 mg PO DAILY [facility] Last Admin: 11/26/24 08:22 Dose: 20 mg Bisacodyl (Bisacodyl 10 Mg Supp.Rect) 10 mg [place] BEDTIME PRN PRN Reason: Constipation Last Admin: 11/04/24 20:37 Dose: 10 mg Buspirone HCl (Buspirone Hcl 10 Mg Tablet) 10 mg PO TID [facility] Last Admin: 11/26/24 15:16 Dose: 10 mg Clonazepam (Clonazepam Odt 0.125 Mg Tab.Rapdis) 0.25 mg PO BID PRN PRN Reason: anxiety/restlessness Last Admin: 11/25/24 21:03 Dose: 0.25 mg Dicyclomine HCl (Dicyclomine Hcl 10 Mg Capsule) 10 mg PO Q4H PRN PRN Reason: abdominal cramping Last Admin: 11/23/24 14:52 Dose: 10 mg Docusate Sodium (Docusate Sodium 100 Mg Capsule) 100 mg PO BID [facility] Last Admin: 11/26/24 08:23 Dose: 100 mg Duloxetine HCl (Duloxetine Hcl 60 Mg Capsule.Dr) 60 mg PO DAILY [facility] Last Admin: 11/26/24 08:23 Dose: 60 mg Fluticasone/Vilanterol (Fluticasone/Vilanterol 100/25 Blst.W.Dev) 1 puff INHALE RDAILY [facility] Last Admin: 11/26/24 08:24 Dose: 1 puff Gabapentin (Gabapentin 100 Mg Capsule) 100 mg PO TID [facility] Last Admin: 11/26/24 15:15 Dose: 100 mg Glipizide (Glipizide Xl 2.5 Mg Tab.Er.24) 2.5 mg PO DAILY [facility] Last Admin: 11/26/24 08:23 Dose: 2.5 mg Hydroxyzine HCl (Hydroxyzine Hcl 10 Mg Tablet) 10 mg PO Q6H PRN PRN Reason: anxiety/restlessness Last Admin: 11/25/24 20:33 Dose: 10 mg Lisinopril (Lisinopril 2.5 Mg Tablet) 2.5 mg PO DAILY [facility]; Protocol Last Admin: 11/26/24 08:23 Dose: 2.5 mg Magnesium Hydroxide (Milk Of Magnesia 30 Ml Oral.Susp) 30 ml PO DAILY PRN PRN Reason: Constipation Last Admin: 11/04/24 16:49 Dose: 30 ml Mirtazapine (Mirtazapine 30 Mg Tablet) 30 mg PO BEDTIME [facility] Last Admin: 11/25/24 20:34 Dose: 30 mg Omeprazole (Omeprazole 20 Mg Capsule.Dr) 20 mg PO BID@0630,1630 [facility] Last Admin: 11/26/24 15:16 Dose: 20 mg Ondansetron HCl (Ondansetron Odt 4 Mg Tab.Rapdis) 4 mg TRANSLINGU Q4H PRN PRN Reason: Nausea and Vomiting Last Admin: 11/24/24 20:10 Dose: 4 mg Polyethylene Glycol (Polyethylene Glycol 3350 17 Gm Powd.Pack) 17 gm PO BID [facility] Last Admin: 11/26/24 08:23 Dose: 17 gm Pramipexole Dihydrochloride (Pramipexole Di-Hcl 0.125 Mg Tablet) 0.125 mg PO DAILY [facility] Last Admin: 11/26/24 08:23 Dose: 0.125 mg Pyridoxine HCl (Pyridoxine Hcl (Vitamin B6) 50 Mg Tablet) 50 mg PO DAILY [facility] Last Admin: 11/26/24 08:23 Dose: 50 mg Ropinirole HCl (Ropinirole Hcl 2 Mg Tablet) 2 mg PO DAILY@1700 [facility] Senna (Sennosides 8.6 Mg Tablet) 17.2 mg PO BEDTIME [facility] On Hold: 11/06/24 16:27 Last Admin: 11/05/24 19:39 Dose: 17.2 mg Simethicone (Simethicone 80 Mg Tab.Chew) 80 mg PO QIDWMHS [facility] Last Admin: 11/26/24 12:04 Dose: 80 mg Sitagliptin Phosphate (Sitagliptin Phosphate 25 Mg Tablet) 25 mg PO DAILY [facility] Last Admin: 11/26/24 08:22 Dose: 25 mg Trazodone HCl (Trazodone Hcl 50 Mg Tablet) 50 mg PO BEDTIME MRX1 PRN PRN Reason: Insomnia Last Admin: 11/25/24 20:33 Dose: 50 mg Allergies Allergies Allergy/AdvReac Type Severity Reaction Status Date / Time ampicillin Allergy Rash Verified 10/20/24 19:28 morphine Allergy Rash Verified 10/20/24 19:28 Penicillins Allergy Rash Verified 10/20/24 19:28 pork derived (porcine) Allergy Vomiting Verified 11/10/24 17:49 Assessment & Plan Assessment & Plan (1) MDD (major depressive disorder), recurrent episode, moderate: Status: Acute Code(s): F33.1 - Major depressive disorder, recurrent, moderate (2) 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 Barreto is a 78 year-old woman with hx of MDD who was assessed by N at request of her son who called 911 after pt had reported suicidal ideation with plan to OD. In the ED, pt adamantly denied suicidal ideation but reports feeling increasingly more depressed due to involuntary, ongoing movement of lower extremities. She attributes her depressed mood and increase anxious mood to RLS. She has also been treated as tardive akathisia, note that she was previously prescribed abilify. It is noted that she may have iron deficiency due to normocytic anemia which can exacerbate RLS. It is unclear which medications for hyperkinetic movements of the legs are actually helpful and furthermore it is not easily to differentiate whether it is tardive akathisia or RLS. She has been on psychotropic medications that are known to cause akathisia such as abilify. She reports subjective sense of restlessness. Involuntary movement seems to be throughout the day. We will have to do trial of medications that target akathisia such as propanolol and ativan versus medications such as pramipexol for RLS (note that in RLS there is an initial relief with dopamine agonist but can make it worse over time). In addition, will try iron deficiency as it is an underlying cause and exacerbating factor in RLS. PLAN 11/14 continue tx. will monitor before making substantial changes every day. 11/15 continue tx. pt somatically preoccupied. 11/16: Continue current management and treatment plan. 11/17: continue current management and treatment plan. 11/18 start buspar 10mg po TID for SHEILA. continue all other meds. 11/19 increase buspar 20mg po TID 11/20 appears calmer, less somatically preccupied. continue current medications. 11/21 sodium stable. continues to present as less dysphoric, calmer. reports of dizziness (VS not hotn nor orthostatic), ?vertigo, will try low dose of meclizine otherwise will consult hospitalist for further management. 8.2- pt more focused on gi issues- and anxiety/forgetfulness- continue to monitor somatic complaints- dc qid poc 11/25 will lowered ropinirole as it may increasing anxiety, noted that buspar was lowered, do not think this medication was causing fogginess as pt appeared much calmer since we added buspar. She was started on low dose clonazepam. 11/26 continue tx. received one time dose xanax, but reported feeling overly sedated. Reason for continued inpatient stay Substantial Risk for: inability to function Time Spent With Patient Time: Total time managing care of this patient today ____ minutes.
[2024-11-26 20:00] VITALS: BP 123/57; PULSE 86; RESP 18; TEMP 36.4; O2SAT 99
[2024-11-26] MEDS: clonazePAM ODT 0.125 MG TAB.RAPDIS 0.25 MG PO (20:55)
[2024-11-27 06:35] LABS: Glucose, Whole Blood 167 mg/dL (60-115)
[2024-11-27 08:26] VITALS: BP 130/67; PULSE 99; RESP 16; TEMP 36.2; O2SAT 99
[2024-11-27] MEDS: clonazePAM ODT 0.125 MG TAB.RAPDIS 0.25 MG PO (16:18)
[2024-11-27 20:00] VITALS: BP 125/57; PULSE 89; RESP 17; TEMP 36.6; O2SAT 99
--- NOTE | 2024-11-27 21:31 | P.PNPSI_ITS ---
Subjective Subjective Date of Service: 11/27/24 Reason For Visit: SI with plan to OD on medications, increased anxie Subjective Notes: Conditional Voluntary Interim History: Pt slept through the night. Pt today complaints about blurry vision which she reports has been there for years. We had talked about some weeks ago that she has to follow up with ophthalmology. Visible and much calmer when not asked how she is doing. Review of Systems Review of Systems Denies any shortness of breath, chest pain, no nausea vomiting or diarrhea reported. Occasional dizziness. Reports chronic abdominal pain. Yes all other systems are reviewed and are negative Mental Status Exam Mental Status Exam Narrative: Appearance:casual attire, bruises on face, good hygiene, in NAD Behavior: calmer Orientation: alert, generally oriented to person, place, time Memory: grossly intact to recent/remote events Attention: able to attend to the encounter discussion Psychomotor Function: pacing Speech: normal rate, tone, volume Mood: better Affect: congruent, less dysphoric. Thought Process: perseverative Thought Content: less fixation on somatic concerns, denies SI/HI Hallucinations: denies AVH delusions: somatic preoccupation Insight: impairment Judgment: impairment Impulsivity: low frustration tolerance. Diagnostics Vital Signs (24Hr): Vital Signs - 24 hr 11/27/24 08:26 Temperature 97.2 F Pulse Rate 99 Respiratory Rate 16 Blood Pressure 130/67 Pulse Oximetry 99 Oxygen Delivery Method Room Air BMI result Body Mass Index 22.9 Labs 11/02/24 20:14 11/20/24 11:02 Labs: Laboratory Results - last 48 hr 11/26/24 11/27/24 06:23 06:32 POC Glucose 166 H 167 H Imaging Radiology Impressions: ITS Impressions Hip/Pelvis X-Ray 11/05/24 11:00 IMPRESSION: Unremarkable examination of the left hip. Electronically signed by: Sam Saini MD 11/05/2024 11:13 AM EDT RP KUB X-Ray 11/06/24 09:20 IMPRESSION: Large amount of stool throughout the colon. Electronically signed by: Sam Saini MD 11/06/2024 09:34 AM EDT RP Head CT 11/08/24 14:58 IMPRESSION: Left frontal soft tissue swelling. No acute intracranial abnormality. Electronically signed by: Sam Saini MD 11/08/2024 03:18 PM EDT RP Medications Medications Current Medications Acetaminophen (Acetaminophen 325 Mg Tablet) 650 mg PO Q6H PRN PRN Reason: Headache/Pain, Scale 1-10 Last Admin: 11/25/24 20:33 Dose: 650 mg Al Hydroxide/Mg Hydroxide (Magnesium Hydrox/Alum Hydrox 30 Ml Oral.Susp) 30 ml PO Q6H PRN PRN Reason: Heartburn/Nausea Last Admin: 11/25/24 14:04 Dose: 30 ml Albuterol Sulfate (Albuterol Sulfate 90 Mcg 8 Gm Inhaler) 2 puff INHALE Q4H PRN PRN Reason: Shortness Of Breath Or Wheezin Amlodipine Besylate (Amlodipine Besylate 2.5 Mg Tablet) 2.5 mg PO DAILY [facility]; Protocol Last Admin: 11/27/24 08:38 Dose: 2.5 mg Atorvastatin Calcium (Atorvastatin Calcium 20 Mg Tablet) 20 mg PO DAILY [facility] Last Admin: 11/27/24 08:38 Dose: 20 mg Bisacodyl (Bisacodyl 10 Mg Supp.Rect) 10 mg [place] BEDTIME PRN PRN Reason: Constipation Last Admin: 11/04/24 20:37 Dose: 10 mg Buspirone HCl (Buspirone Hcl 10 Mg Tablet) 10 mg PO TID [facility] Last Admin: 11/27/24 21:19 Dose: 10 mg Clonazepam (Clonazepam Odt 0.125 Mg Tab.Rapdis) 0.25 mg PO BID PRN PRN Reason: anxiety/restlessness Last Admin: 11/27/24 16:18 Dose: 0.25 mg Dicyclomine HCl (Dicyclomine Hcl 10 Mg Capsule) 10 mg PO Q4H PRN PRN Reason: abdominal cramping Last Admin: 11/23/24 14:52 Dose: 10 mg Docusate Sodium (Docusate Sodium 100 Mg Capsule) 100 mg PO BID [facility] Last Admin: 11/27/24 21:19 Dose: 100 mg Duloxetine HCl (Duloxetine Hcl 60 Mg Capsule.Dr) 60 mg PO DAILY [facility] Last Admin: 11/27/24 08:37 Dose: 60 mg Fluticasone/Vilanterol (Fluticasone/Vilanterol 100/25 Blst.W.Dev) 1 puff INHALE RDAILY [facility] Last Admin: 11/27/24 08:41 Dose: Not Given Gabapentin (Gabapentin 100 Mg Capsule) 100 mg PO TID [facility] Last Admin: 11/27/24 21:19 Dose: 100 mg Glipizide (Glipizide Xl 2.5 Mg Tab.Er.24) 2.5 mg PO DAILY [facility] Last Admin: 11/27/24 08:39 Dose: 2.5 mg Hydroxyzine HCl (Hydroxyzine Hcl 10 Mg Tablet) 10 mg PO Q6H PRN PRN Reason: anxiety/restlessness Last Admin: 11/27/24 16:50 Dose: 10 mg Lisinopril (Lisinopril 2.5 Mg Tablet) 2.5 mg PO DAILY [facility]; Protocol Last Admin: 11/27/24 08:37 Dose: 2.5 mg Magnesium Hydroxide (Milk Of Magnesia 30 Ml Oral.Susp) 30 ml PO DAILY PRN PRN Reason: Constipation Last Admin: 11/04/24 16:49 Dose: 30 ml Mirtazapine (Mirtazapine 30 Mg Tablet) 30 mg PO BEDTIME [facility] Last Admin: 11/27/24 21:19 Dose: 30 mg Omeprazole (Omeprazole 20 Mg Capsule.Dr) 20 mg PO BID@0630,1630 [facility] Last Admin: 11/27/24 16:20 Dose: 20 mg Ondansetron HCl (Ondansetron Odt 4 Mg Tab.Rapdis) 4 mg TRANSLINGU Q4H PRN PRN Reason: Nausea and Vomiting Last Admin: 11/24/24 20:10 Dose: 4 mg Polyethylene Glycol (Polyethylene Glycol 3350 17 Gm Powd.Pack) 17 gm PO BID [facility] Last Admin: 11/27/24 21:21 Dose: Not Given Pramipexole Dihydrochloride (Pramipexole Di-Hcl 0.125 Mg Tablet) 0.125 mg PO DAILY [facility] Last Admin: 11/27/24 08:37 Dose: 0.125 mg Pyridoxine HCl (Pyridoxine Hcl (Vitamin B6) 50 Mg Tablet) 50 mg PO DAILY [facility] Last Admin: 11/27/24 08:39 Dose: 50 mg Ropinirole HCl (Ropinirole Hcl 2 Mg Tablet) 2 mg PO DAILY@1700 [facility] Last Admin: 11/27/24 16:21 Dose: 2 mg Senna (Sennosides 8.6 Mg Tablet) 17.2 mg PO BEDTIME [facility] On Hold: 11/06/24 16:27 Last Admin: 11/05/24 19:39 Dose: 17.2 mg Simethicone (Simethicone 80 Mg Tab.Chew) 80 mg PO QIDWMHS [facility] Last Admin: 11/27/24 21:19 Dose: 80 mg Sitagliptin Phosphate (Sitagliptin Phosphate 25 Mg Tablet) 25 mg PO DAILY [facility] Last Admin: 11/27/24 08:39 Dose: 25 mg Trazodone HCl (Trazodone Hcl 50 Mg Tablet) 50 mg PO BEDTIME MRX1 PRN PRN Reason: Insomnia Last Admin: 11/26/24 20:55 Dose: 50 mg Allergies Allergies Allergy/AdvReac Type Severity Reaction Status Date / Time ampicillin Allergy Rash Verified 10/20/24 19:28 morphine Allergy Rash Verified 10/20/24 19:28 Penicillins Allergy Rash Verified 10/20/24 19:28 pork derived (porcine) Allergy Vomiting Verified 11/10/24 17:49 Assessment & Plan Assessment & Plan (1) MDD (major depressive disorder), recurrent episode, moderate: Status: Acute Code(s): F33.1 - Major depressive disorder, recurrent, moderate (2) 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 Barreto is a 78 year-old woman with hx of MDD who was assessed by N at request of her son who called 911 after pt had reported suicidal ideation with plan to OD. In the ED, pt adamantly denied suicidal ideation but reports feeling increasingly more depressed due to involuntary, ongoing movement of lower extremities. She attributes her depressed mood and increase anxious mood to RLS. She has also been treated as tardive akathisia, note that she was previously prescribed abilify. It is noted that she may have iron deficiency due to normocytic anemia which can exacerbate RLS. It is unclear which medications for hyperkinetic movements of the legs are actually helpful and furthermore it is not easily to differentiate whether it is tardive akathisia or RLS. She has been on psychotropic medications that are known to cause akathisia such as abilify. She reports subjective sense of restlessness. Involuntary movement seems to be throughout the day. We will have to do trial of medications that target akathisia such as propanolol and ativan versus medications such as pramipexol for RLS (note that in RLS there is an initial relief with dopamine agonist but can make it worse over time). In addition, will try iron deficiency as it is an underlying cause and exacerbating factor in RLS. PLAN 11/14 continue tx. will monitor before making substantial changes every day. 11/15 continue tx. pt somatically preoccupied. 11/16: Continue current management and treatment plan. 11/17: continue current management and treatment plan. 11/18 start buspar 10mg po TID for SHEILA. continue all other meds. 11/19 increase buspar 20mg po TID 11/20 appears calmer, less somatically preccupied. continue current medications. 11/21 sodium stable. continues to present as less dysphoric, calmer. reports of dizziness (VS not hotn nor orthostatic), ?vertigo, will try low dose of meclizine otherwise will consult hospitalist for further management. 8.2- pt more focused on gi issues- and anxiety/forgetfulness- continue to monitor somatic complaints- dc qid poc 11/25 will lowered ropinirole as it may increasing anxiety, noted that buspar was lowered, do not think this medication was causing fogginess as pt appeared much calmer since we added buspar. She was started on low dose clonazepam. 11/27 continue tx. Reason for continued inpatient stay Substantial Risk for: inability to function Time Spent With Patient Time: Total time managing care of this patient today ____ minutes.
[2024-11-28 06:18] LABS: Glucose, Whole Blood 159 mg/dL (60-115)
[2024-11-28 08:00] VITALS: BP 138/74; PULSE 70; TEMP 36.8; O2SAT 100
[2024-11-28 08:25] VITALS: BP 138/74
[2024-11-28] MEDS: Fluticasone/Vilanterol 100/25 BLST.W.DEV 1 PUFF INHALE (08:28)
[2024-11-28 15:26] VITALS: BMI 23.0
[2024-11-28] MEDS: Magnesium Hydrox/Alum Hydrox 30 ML ORAL.SUSP PO (15:56)
[2024-11-28] MEDS: clonazePAM ODT 0.125 MG TAB.RAPDIS 0.25 MG PO (19:53)
[2024-11-28 20:00] VITALS: BP 137/73; PULSE 98; RESP 17; TEMP 36.3; O2SAT 99
--- NOTE | 2024-11-28 20:53 | HO.PSYCHPN ---
Subjective Subjective Date of Service: 11/28/24 Reason For Visit: SI with plan to OD on medications, increased anxie Subjective Notes: Conditional Voluntary Interim History: Pt reports she does not feel well, reports feeling very sleepy and sedated but appears wide awake. Asks for medication changes but presentation is inconsistent with her complaints at times. She denied SI/HI. Meet with staff from [facility], awaiting placement. Medication Compliance: Yes Review of Systems Review of Systems Denies any shortness of breath, chest pain, no nausea vomiting or diarrhea reported. Occasional dizziness. Reports chronic abdominal pain. Yes all other systems are reviewed and are negative Mental Status Exam Mental Status Exam Narrative: Appearance:casual attire, bruises on face, good hygiene, in NAD Behavior: calmer Orientation: alert, generally oriented to person, place, time Memory: grossly intact to recent/remote events Attention: able to attend to the encounter discussion Psychomotor Function: pacing Speech: normal rate, tone, volume Mood: better Affect: congruent, less dysphoric. Thought Process: perseverative Thought Content: less fixation on somatic concerns, denies SI/HI Hallucinations: denies AVH delusions: somatic preoccupation Insight: impairment Judgment: impairment Impulsivity: low frustration tolerance. Diagnostics Vital Signs (24Hr): Vital Signs - 24 hr 11/28/24 08:00 11/28/24 08:25 Temperature 98.3 F Pulse Rate 70 Blood Pressure 138/74 138/74 Pulse Oximetry 100 Oxygen Delivery Method Room Air BMI result Body Mass Index 23.0 Labs 11/02/24 20:14 11/20/24 11:02 Labs: Laboratory Results - last 48 hr 11/27/24 11/28/24 06:32 06:13 POC Glucose 167 H 159 H Imaging Radiology Impressions: ITS Impressions Hip/Pelvis X-Ray 11/05/24 11:00 IMPRESSION: Unremarkable examination of the left hip. Electronically signed by: Sam Saini MD 11/05/2024 11:13 AM EDT RP KUB X-Ray 11/06/24 09:20 IMPRESSION: Large amount of stool throughout the colon. Electronically signed by: Sam Saini MD 11/06/2024 09:34 AM EDT RP Head CT 11/08/24 14:58 IMPRESSION: Left frontal soft tissue swelling. No acute intracranial abnormality. Electronically signed by: Sam Saini MD 11/08/2024 03:18 PM EDT RP Medications Medications Current Medications Acetaminophen (Acetaminophen 325 Mg Tablet) 650 mg PO Q6H PRN PRN Reason: Headache/Pain, Scale 1-10 Last Admin: 11/25/24 20:33 Dose: 650 mg Al Hydroxide/Mg Hydroxide (Magnesium Hydrox/Alum Hydrox 30 Ml Oral.Susp) 30 ml PO Q6H PRN PRN Reason: Heartburn/Nausea Last Admin: 11/28/24 15:56 Dose: 30 ml Albuterol Sulfate (Albuterol Sulfate 90 Mcg 8 Gm Inhaler) 2 puff INHALE Q4H PRN PRN Reason: Shortness Of Breath Or Wheezin Amlodipine Besylate (Amlodipine Besylate 2.5 Mg Tablet) 2.5 mg PO DAILY [facility]; Protocol Last Admin: 11/28/24 08:25 Dose: 2.5 mg Atorvastatin Calcium (Atorvastatin Calcium 20 Mg Tablet) 20 mg PO DAILY [facility] Last Admin: 11/28/24 08:25 Dose: 20 mg Bisacodyl (Bisacodyl 10 Mg Supp.Rect) 10 mg [place] BEDTIME PRN PRN Reason: Constipation Last Admin: 11/04/24 20:37 Dose: 10 mg Buspirone HCl (Buspirone Hcl 10 Mg Tablet) 10 mg PO TID [facility] Last Admin: 11/28/24 15:23 Dose: 10 mg Clonazepam (Clonazepam Odt 0.125 Mg Tab.Rapdis) 0.25 mg PO BID PRN PRN Reason: anxiety/restlessness Last Admin: 11/28/24 19:53 Dose: 0.25 mg Dicyclomine HCl (Dicyclomine Hcl 10 Mg Capsule) 10 mg PO Q4H PRN PRN Reason: abdominal cramping Last Admin: 11/23/24 14:52 Dose: 10 mg Docusate Sodium (Docusate Sodium 100 Mg Capsule) 100 mg PO BID [facility] Last Admin: 11/28/24 08:24 Dose: 100 mg Duloxetine HCl (Duloxetine Hcl 60 Mg Capsule.Dr) 60 mg PO DAILY [facility] Last Admin: 11/28/24 08:22 Dose: 60 mg Fluticasone/Vilanterol (Fluticasone/Vilanterol 100/25 Blst.W.Dev) 1 puff INHALE RDAILY [facility] Last Admin: 11/28/24 08:28 Dose: 1 puff Gabapentin (Gabapentin 100 Mg Capsule) 100 mg PO TID [facility] Last Admin: 11/28/24 15:23 Dose: 100 mg Glipizide (Glipizide Xl 2.5 Mg Tab.Er.24) 2.5 mg PO DAILY [facility] Last Admin: 11/28/24 08:23 Dose: 2.5 mg Hydroxyzine HCl (Hydroxyzine Hcl 10 Mg Tablet) 10 mg PO Q6H PRN PRN Reason: anxiety/restlessness Last Admin: 11/28/24 15:23 Dose: 10 mg Lisinopril (Lisinopril 2.5 Mg Tablet) 2.5 mg PO DAILY [facility]; Protocol Last Admin: 11/28/24 08:26 Dose: 2.5 mg Magnesium Hydroxide (Milk Of Magnesia 30 Ml Oral.Susp) 30 ml PO DAILY PRN PRN Reason: Constipation Last Admin: 11/04/24 16:49 Dose: 30 ml Mirtazapine (Mirtazapine 30 Mg Tablet) 30 mg PO BEDTIME [facility] Last Admin: 11/27/24 21:19 Dose: 30 mg Omeprazole (Omeprazole 20 Mg Capsule.Dr) 20 mg PO BID@0630,1630 [facility] Last Admin: 11/28/24 16:08 Dose: 20 mg Ondansetron HCl (Ondansetron Odt 4 Mg Tab.Rapdis) 4 mg TRANSLINGU Q4H PRN PRN Reason: Nausea and Vomiting Last Admin: 11/24/24 20:10 Dose: 4 mg Polyethylene Glycol (Polyethylene Glycol 3350 17 Gm Powd.Pack) 17 gm PO BID [facility] Last Admin: 11/28/24 08:28 Dose: 17 gm Pramipexole Dihydrochloride (Pramipexole Di-Hcl 0.125 Mg Tablet) 0.125 mg PO DAILY [facility] Last Admin: 11/28/24 08:24 Dose: 0.125 mg Pyridoxine HCl (Pyridoxine Hcl (Vitamin B6) 50 Mg Tablet) 50 mg PO DAILY [facility] Last Admin: 11/28/24 08:23 Dose: 50 mg Ropinirole HCl (Ropinirole Hcl 2 Mg Tablet) 2 mg PO DAILY@1700 [facility] Last Admin: 11/28/24 17:42 Dose: 2 mg Senna (Sennosides 8.6 Mg Tablet) 17.2 mg PO BEDTIME [facility] On Hold: 11/06/24 16:27 Last Admin: 11/05/24 19:39 Dose: 17.2 mg Simethicone (Simethicone 80 Mg Tab.Chew) 80 mg PO QIDWMHS [facility] Last Admin: 11/28/24 17:42 Dose: 80 mg Sitagliptin Phosphate (Sitagliptin Phosphate 25 Mg Tablet) 25 mg PO DAILY [facility] Last Admin: 11/28/24 08:23 Dose: 25 mg Trazodone HCl (Trazodone Hcl 50 Mg Tablet) 50 mg PO BEDTIME MRX1 PRN PRN Reason: Insomnia Last Admin: 11/26/24 20:55 Dose: 50 mg Allergies Allergies Allergy/AdvReac Type Severity Reaction Status Date / Time ampicillin Allergy Rash Verified 10/20/24 19:28 morphine Allergy Rash Verified 10/20/24 19:28 Penicillins Allergy Rash Verified 10/20/24 19:28 pork derived (porcine) Allergy Vomiting Verified 11/10/24 17:49 Assessment & Plan Assessment & Plan (1) MDD (major depressive disorder), recurrent episode, moderate: Status: Acute Code(s): F33.1 - Major depressive disorder, recurrent, moderate (2) 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 Barreto is a 78 year-old woman with hx of MDD who was assessed by N at request of her son who called 911 after pt had reported suicidal ideation with plan to OD. In the ED, pt adamantly denied suicidal ideation but reports feeling increasingly more depressed due to involuntary, ongoing movement of lower extremities. She attributes her depressed mood and increase anxious mood to RLS. She has also been treated as tardive akathisia, note that she was previously prescribed abilify. It is noted that she may have iron deficiency due to normocytic anemia which can exacerbate RLS. It is unclear which medications for hyperkinetic movements of the legs are actually helpful and furthermore it is not easily to differentiate whether it is tardive akathisia or RLS. She has been on psychotropic medications that are known to cause akathisia such as abilify. She reports subjective sense of restlessness. Involuntary movement seems to be throughout the day. We will have to do trial of medications that target akathisia such as propanolol and ativan versus medications such as pramipexol for RLS (note that in RLS there is an initial relief with dopamine agonist but can make it worse over time). In addition, will try iron deficiency as it is an underlying cause and exacerbating factor in RLS. PLAN 11/14 continue tx. will monitor before making substantial changes every day. 11/15 continue tx. pt somatically preoccupied. 11/16: Continue current management and treatment plan. 11/17: continue current management and treatment plan. 11/18 start buspar 10mg po TID for SHEILA. continue all other meds. 11/19 increase buspar 20mg po TID 11/20 appears calmer, less somatically preccupied. continue current medications. 11/21 sodium stable. continues to present as less dysphoric, calmer. reports of dizziness (VS not hotn nor orthostatic), ?vertigo, will try low dose of meclizine otherwise will consult hospitalist for further management. 8.2- pt more focused on gi issues- and anxiety/forgetfulness- continue to monitor somatic complaints- dc qid poc 11/25 will lowered ropinirole as it may increasing anxiety, noted that buspar was lowered, do not think this medication was causing fogginess as pt appeared much calmer since we added buspar. She was started on low dose clonazepam. 11/26 continue tx. received one time dose xanax, but reported feeling overly sedated (although did not appear sedated) 11/27 somatically preoccupied, no change in medications. Reason for continued inpatient stay Substantial Risk for: inability to function Time Spent With Patient Time: Total time managing care of this patient today ____ minutes.
[2024-11-29 06:28] LABS: Glucose, Whole Blood 156 mg/dL (60-115)
[2024-11-29 09:25] VITALS: BP 168/80; PULSE 97; RESP 14; TEMP 36.8; O2SAT 96
[2024-11-29] MEDS: Fluticasone/Vilanterol 100/25 BLST.W.DEV 1 PUFF INHALE (09:31)
--- NOTE | 2024-11-29 16:29 | HO.PSYCHPN ---
Subjective Subjective Date of Service: 11/29/24 Reason For Visit: SI with plan to OD on medications, increased anxie Subjective Notes: Conditional Voluntary Interim History: Pt slept through the night. She reports she wants a medication to awake her up. However, she presents as very awake and somewhat dysphoric and restless. She is much calmer when not asked how she is doing and observe in the milieu as much calmer. She is attending groups. No SI/HI. Review of Systems Review of Systems Denies any shortness of breath, chest pain, no nausea vomiting or diarrhea reported. Occasional dizziness. Reports chronic abdominal pain. Yes all other systems are reviewed and are negative Mental Status Exam Mental Status Exam Narrative: Appearance:casual attire, bruises on face, good hygiene, in NAD Behavior: calmer Orientation: alert, generally oriented to person, place, time Memory: grossly intact to recent/remote events Attention: able to attend to the encounter discussion Psychomotor Function: pacing Speech: normal rate, tone, volume Mood: better Affect: congruent, less dysphoric. Thought Process: perseverative Thought Content: less fixation on somatic concerns, denies SI/HI Hallucinations: denies AVH delusions: somatic preoccupation Insight: impairment Judgment: impairment Impulsivity: low frustration tolerance. Diagnostics Vital Signs (24Hr): Vital Signs - 24 hr 11/28/24 20:00 11/29/24 09:25 Temperature 97.3 F 98.3 F Pulse Rate 98 97 Respiratory Rate 17 14 Blood Pressure 137/73 168/80 H Pulse Oximetry 99 96 Oxygen Delivery Method Room Air Room Air BMI result Body Mass Index 23.0 Labs 11/02/24 20:14 11/20/24 11:02 Labs: Laboratory Results - last 48 hr 11/28/24 11/29/24 06:13 06:16 POC Glucose 159 H 156 H Imaging Radiology Impressions: ITS Impressions Hip/Pelvis X-Ray 11/05/24 11:00 IMPRESSION: Unremarkable examination of the left hip. Electronically signed by: Sam Saini MD 11/05/2024 11:13 AM EDT RP KUB X-Ray 11/06/24 09:20 IMPRESSION: Large amount of stool throughout the colon. Electronically signed by: Sam Saini MD 11/06/2024 09:34 AM EDT RP Head CT 11/08/24 14:58 IMPRESSION: Left frontal soft tissue swelling. No acute intracranial abnormality. Electronically signed by: Sam Saini MD 11/08/2024 03:18 PM EDT RP Medications Medications Current Medications Acetaminophen (Acetaminophen 325 Mg Tablet) 650 mg PO Q6H PRN PRN Reason: Headache/Pain, Scale 1-10 Last Admin: 11/25/24 20:33 Dose: 650 mg Al Hydroxide/Mg Hydroxide (Magnesium Hydrox/Alum Hydrox 30 Ml Oral.Susp) 30 ml PO Q6H PRN PRN Reason: Heartburn/Nausea Last Admin: 11/28/24 15:56 Dose: 30 ml Albuterol Sulfate (Albuterol Sulfate 90 Mcg 8 Gm Inhaler) 2 puff INHALE Q4H PRN PRN Reason: Shortness Of Breath Or Wheezin Amlodipine Besylate (Amlodipine Besylate 2.5 Mg Tablet) 2.5 mg PO DAILY [facility]; Protocol Last Admin: 11/29/24 09:28 Dose: 2.5 mg Atorvastatin Calcium (Atorvastatin Calcium 20 Mg Tablet) 20 mg PO DAILY [facility] Last Admin: 11/29/24 09:28 Dose: 20 mg Bisacodyl (Bisacodyl 10 Mg Supp.Rect) 10 mg [place] BEDTIME PRN PRN Reason: Constipation Last Admin: 11/04/24 20:37 Dose: 10 mg Buspirone HCl (Buspirone Hcl 10 Mg Tablet) 10 mg PO TID [facility] Last Admin: 11/29/24 14:31 Dose: 10 mg Clonazepam (Clonazepam Odt 0.125 Mg Tab.Rapdis) 0.25 mg PO BID PRN PRN Reason: anxiety/restlessness Last Admin: 11/28/24 19:53 Dose: 0.25 mg Dicyclomine HCl (Dicyclomine Hcl 10 Mg Capsule) 10 mg PO Q4H PRN PRN Reason: abdominal cramping Last Admin: 11/29/24 15:01 Dose: 10 mg Docusate Sodium (Docusate Sodium 100 Mg Capsule) 100 mg PO BID [facility] Last Admin: 11/29/24 09:26 Dose: 100 mg Duloxetine HCl (Duloxetine Hcl 60 Mg Capsule.Dr) 60 mg PO DAILY [facility] Last Admin: 11/29/24 09:27 Dose: 60 mg Fluticasone/Vilanterol (Fluticasone/Vilanterol 100/25 Blst.W.Dev) 1 puff INHALE RDAILY [facility] Last Admin: 11/29/24 09:31 Dose: 1 puff Gabapentin (Gabapentin 100 Mg Capsule) 100 mg PO TID [facility] Last Admin: 11/29/24 14:31 Dose: 100 mg Glipizide (Glipizide Xl 2.5 Mg Tab.Er.24) 2.5 mg PO DAILY [facility] Last Admin: 11/29/24 09:27 Dose: 2.5 mg Hydroxyzine HCl (Hydroxyzine Hcl 10 Mg Tablet) 10 mg PO Q6H PRN PRN Reason: anxiety/restlessness Last Admin: 11/28/24 15:23 Dose: 10 mg Lisinopril (Lisinopril 2.5 Mg Tablet) 2.5 mg PO DAILY [facility]; Protocol Last Admin: 11/29/24 09:27 Dose: 2.5 mg Magnesium Hydroxide (Milk Of Magnesia 30 Ml Oral.Susp) 30 ml PO DAILY PRN PRN Reason: Constipation Last Admin: 11/04/24 16:49 Dose: 30 ml Mirtazapine (Mirtazapine 30 Mg Tablet) 30 mg PO BEDTIME [facility] Last Admin: 11/28/24 21:55 Dose: 30 mg Omeprazole (Omeprazole 20 Mg Capsule.Dr) 20 mg PO BID@0630,1630 [facility] Last Admin: 11/29/24 06:17 Dose: 20 mg Ondansetron HCl (Ondansetron Odt 4 Mg Tab.Rapdis) 4 mg TRANSLINGU Q4H PRN PRN Reason: Nausea and Vomiting Last Admin: 11/29/24 09:15 Dose: 4 mg Polyethylene Glycol (Polyethylene Glycol 3350 17 Gm Powd.Pack) 17 gm PO BID [facility] Last Admin: 11/28/24 21:45 Dose: Not Given Pramipexole Dihydrochloride (Pramipexole Di-Hcl 0.125 Mg Tablet) 0.125 mg PO DAILY [facility] Last Admin: 11/29/24 09:30 Dose: 0.125 mg Pyridoxine HCl (Pyridoxine Hcl (Vitamin B6) 50 Mg Tablet) 50 mg PO DAILY [facility] Last Admin: 11/29/24 09:28 Dose: 50 mg Ropinirole HCl (Ropinirole Hcl 2 Mg Tablet) 2 mg PO DAILY@1700 [facility] Last Admin: 11/28/24 17:42 Dose: 2 mg Senna (Sennosides 8.6 Mg Tablet) 17.2 mg PO BEDTIME [facility] On Hold: 11/06/24 16:27 Last Admin: 11/05/24 19:39 Dose: 17.2 mg Simethicone (Simethicone 80 Mg Tab.Chew) 80 mg PO QIDWMHS [facility] Last Admin: 11/29/24 12:23 Dose: 80 mg Sitagliptin Phosphate (Sitagliptin Phosphate 25 Mg Tablet) 25 mg PO DAILY [facility] Last Admin: 11/29/24 09:27 Dose: 25 mg Trazodone HCl (Trazodone Hcl 50 Mg Tablet) 50 mg PO BEDTIME MRX1 PRN PRN Reason: Insomnia Last Admin: 11/28/24 21:56 Dose: 50 mg Allergies Allergies Allergy/AdvReac Type Severity Reaction Status Date / Time ampicillin Allergy Rash Verified 10/20/24 19:28 morphine Allergy Rash Verified 10/20/24 19:28 Penicillins Allergy Rash Verified 10/20/24 19:28 pork derived (porcine) Allergy Vomiting Verified 11/10/24 17:49 Assessment & Plan Assessment & Plan (1) MDD (major depressive disorder), recurrent episode, moderate: Status: Acute Code(s): F33.1 - Major depressive disorder, recurrent, moderate (2) 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 Barreto is a 78 year-old woman with hx of MDD who was assessed by N at request of her son who called 911 after pt had reported suicidal ideation with plan to OD. In the ED, pt adamantly denied suicidal ideation but reports feeling increasingly more depressed due to involuntary, ongoing movement of lower extremities. She attributes her depressed mood and increase anxious mood to RLS. She has also been treated as tardive akathisia, note that she was previously prescribed abilify. It is noted that she may have iron deficiency due to normocytic anemia which can exacerbate RLS. It is unclear which medications for hyperkinetic movements of the legs are actually helpful and furthermore it is not easily to differentiate whether it is tardive akathisia or RLS. She has been on psychotropic medications that are known to cause akathisia such as abilify. She reports subjective sense of restlessness. Involuntary movement seems to be throughout the day. We will have to do trial of medications that target akathisia such as propanolol and ativan versus medications such as pramipexol for RLS (note that in RLS there is an initial relief with dopamine agonist but can make it worse over time). In addition, will try iron deficiency as it is an underlying cause and exacerbating factor in RLS. PLAN 11/14 continue tx. will monitor before making substantial changes every day. 11/15 continue tx. pt somatically preoccupied. 11/16: Continue current management and treatment plan. 11/17: continue current management and treatment plan. 11/18 start buspar 10mg po TID for SHEILA. continue all other meds. 11/19 increase buspar 20mg po TID 11/20 appears calmer, less somatically preccupied. continue current medications. 11/21 sodium stable. continues to present as less dysphoric, calmer. reports of dizziness (VS not hotn nor orthostatic), ?vertigo, will try low dose of meclizine otherwise will consult hospitalist for further management. 8.2- pt more focused on gi issues- and anxiety/forgetfulness- continue to monitor somatic complaints- dc qid poc 11/25 will lowered ropinirole as it may increasing anxiety, noted that buspar was lowered, do not think this medication was causing fogginess as pt appeared much calmer since we added buspar. She was started on low dose clonazepam. 11/26 continue tx. received one time dose xanax, but reported feeling overly sedated (although did not appear sedated) 11/27 somatically preoccupied, no change in medications. 11/29 continue tx. Reason for continued inpatient stay Substantial Risk for: inability to function Time Spent With Patient Time: Total time managing care of this patient today ____ minutes.
[2024-11-29 20:00] VITALS: BP 131/66; PULSE 81; RESP 18; TEMP 36.2; O2SAT 100
[2024-11-29] MEDS: clonazePAM ODT 0.125 MG TAB.RAPDIS 0.25 MG PO (20:32)
[2024-11-30 06:24] LABS: Glucose, Whole Blood 136 mg/dL (60-115)
[2024-11-30 08:45] VITALS: BP 135/67; PULSE 95; RESP 16; TEMP 36.4; O2SAT 95
[2024-11-30] MEDS: Fluticasone/Vilanterol 100/25 BLST.W.DEV 1 PUFF INHALE (08:51)
--- NOTE | 2024-11-30 12:07 | P.PNPSI_ITS ---
Subjective Subjective Date of Service: 11/30/24 Reason For Visit: SI with plan to OD on medications, increased anxie Subjective Notes: Conditional Voluntary Interim History: Patient was seen and discussed in rounds today. Records and plans were reviewed. She has been calm but perseverative about another specific patient. Medication compliant. Anxious at times. Eating and sleeping adequately. No behavioral issues. No changes were made today Review of Systems Review of Systems Yes all other systems are reviewed and are negative Mental Status Exam Mental Status Exam Narrative: . She is alert, pleasant and cooperative. Speech is normal. Moderate eye contact. Affect is appropriate and contained. No acute signs of psychosis. Cognitively impaired. Judgment is impaired Diagnostics Vital Signs (24Hr): Vital Signs - 24 hr 11/29/24 20:00 11/30/24 08:45 Temperature 97.1 F 97.5 F Pulse Rate 81 95 Respiratory Rate 18 16 Blood Pressure 131/66 135/67 Pulse Oximetry 100 95 Oxygen Delivery Method Room Air Room Air BMI result Body Mass Index 23.0 Labs 11/02/24 20:14 11/20/24 11:02 Labs: Laboratory Results - last 48 hr 11/29/24 11/30/24 06:16 06:16 POC Glucose 156 H 136 H Imaging Radiology Impressions: ITS Impressions Hip/Pelvis X-Ray 11/05/24 11:00 IMPRESSION: Unremarkable examination of the left hip. Electronically signed by: Sam Saini MD 11/05/2024 11:13 AM EDT RP KUB X-Ray 11/06/24 09:20 IMPRESSION: Large amount of stool throughout the colon. Electronically signed by: Sam Saini MD 11/06/2024 09:34 AM EDT RP Head CT 11/08/24 14:58 IMPRESSION: Left frontal soft tissue swelling. No acute intracranial abnormality. Electronically signed by: Sam Saini MD 11/08/2024 03:18 PM EDT RP Medications Medications Current Medications Acetaminophen (Acetaminophen 325 Mg Tablet) 650 mg PO Q6H PRN PRN Reason: Headache/Pain, Scale 1-10 Last Admin: 11/29/24 20:32 Dose: 650 mg Al Hydroxide/Mg Hydroxide (Magnesium Hydrox/Alum Hydrox 30 Ml Oral.Susp) 30 ml PO Q6H PRN PRN Reason: Heartburn/Nausea Last Admin: 11/28/24 15:56 Dose: 30 ml Albuterol Sulfate (Albuterol Sulfate 90 Mcg 8 Gm Inhaler) 2 puff INHALE Q4H PRN PRN Reason: Shortness Of Breath Or Wheezin Amlodipine Besylate (Amlodipine Besylate 2.5 Mg Tablet) 2.5 mg PO DAILY [facility]; Protocol Last Admin: 11/30/24 08:49 Dose: 2.5 mg Atorvastatin Calcium (Atorvastatin Calcium 20 Mg Tablet) 20 mg PO DAILY [facility] Last Admin: 11/30/24 08:51 Dose: 20 mg Bisacodyl (Bisacodyl 10 Mg Supp.Rect) 10 mg DC BEDTIME PRN PRN Reason: Constipation Last Admin: 11/04/24 20:37 Dose: 10 mg Buspirone HCl (Buspirone Hcl 10 Mg Tablet) 10 mg PO TID [facility] Last Admin: 11/30/24 08:48 Dose: 10 mg Clonazepam (Clonazepam Odt 0.125 Mg Tab.Rapdis) 0.25 mg PO BID PRN PRN Reason: anxiety/restlessness Last Admin: 11/29/24 20:32 Dose: 0.25 mg Dicyclomine HCl (Dicyclomine Hcl 10 Mg Capsule) 10 mg PO Q4H PRN PRN Reason: abdominal cramping Last Admin: 11/29/24 15:01 Dose: 10 mg Docusate Sodium (Docusate Sodium 100 Mg Capsule) 100 mg PO BID [facility] Last Admin: 11/30/24 08:50 Dose: 100 mg Duloxetine HCl (Duloxetine Hcl 60 Mg Capsule.Dr) 60 mg PO DAILY [facility] Last Admin: 11/30/24 08:49 Dose: 60 mg Fluticasone/Vilanterol (Fluticasone/Vilanterol 100/25 Blst.W.Dev) 1 puff INHALE RDAILY [facility] Last Admin: 11/30/24 08:51 Dose: 1 puff Gabapentin (Gabapentin 100 Mg Capsule) 100 mg PO TID [facility] Last Admin: 11/30/24 08:50 Dose: 100 mg Glipizide (Glipizide Xl 2.5 Mg Tab.Er.24) 2.5 mg PO DAILY [facility] Last Admin: 11/30/24 08:50 Dose: 2.5 mg Hydroxyzine HCl (Hydroxyzine Hcl 10 Mg Tablet) 10 mg PO Q6H PRN PRN Reason: anxiety/restlessness Last Admin: 11/29/24 20:31 Dose: 10 mg Lisinopril (Lisinopril 2.5 Mg Tablet) 2.5 mg PO DAILY [facility]; Protocol Last Admin: 11/30/24 08:48 Dose: 2.5 mg Magnesium Hydroxide (Milk Of Magnesia 30 Ml Oral.Susp) 30 ml PO DAILY PRN PRN Reason: Constipation Last Admin: 11/04/24 16:49 Dose: 30 ml Mirtazapine (Mirtazapine 30 Mg Tablet) 30 mg PO BEDTIME [facility] Last Admin: 11/29/24 20:31 Dose: 30 mg Omeprazole (Omeprazole 20 Mg Capsule.Dr) 20 mg PO BID@0630,1630 [facility] Last Admin: 11/30/24 06:13 Dose: 20 mg Ondansetron HCl (Ondansetron Odt 4 Mg Tab.Rapdis) 4 mg TRANSLINGU Q4H PRN PRN Reason: Nausea and Vomiting Last Admin: 11/29/24 09:15 Dose: 4 mg Polyethylene Glycol (Polyethylene Glycol 3350 17 Gm Powd.Pack) 17 gm PO BID [facility] Last Admin: 11/30/24 08:52 Dose: Not Given Pramipexole Dihydrochloride (Pramipexole Di-Hcl 0.125 Mg Tablet) 0.125 mg PO DAILY [facility] Last Admin: 11/30/24 08:49 Dose: 0.125 mg Pyridoxine HCl (Pyridoxine Hcl (Vitamin B6) 50 Mg Tablet) 50 mg PO DAILY [facility] Last Admin: 11/30/24 08:51 Dose: 50 mg Ropinirole HCl (Ropinirole Hcl 2 Mg Tablet) 2 mg PO DAILY@1700 [facility] Last Admin: 11/29/24 16:42 Dose: 2 mg Senna (Sennosides 8.6 Mg Tablet) 17.2 mg PO BEDTIME [facility] On Hold: 11/06/24 16:27 Last Admin: 11/05/24 19:39 Dose: 17.2 mg Simethicone (Simethicone 80 Mg Tab.Chew) 80 mg PO QIDWMHS [facility] Last Admin: 11/30/24 08:49 Dose: 80 mg Sitagliptin Phosphate (Sitagliptin Phosphate 25 Mg Tablet) 25 mg PO DAILY [facility] Last Admin: 11/30/24 08:51 Dose: 25 mg Trazodone HCl (Trazodone Hcl 50 Mg Tablet) 50 mg PO BEDTIME MRX1 PRN PRN Reason: Insomnia Last Admin: 11/29/24 20:31 Dose: 50 mg Allergies Allergies Allergy/AdvReac Type Severity Reaction Status Date / Time ampicillin Allergy Rash Verified 10/20/24 19:28 morphine Allergy Rash Verified 10/20/24 19:28 Penicillins Allergy Rash Verified 10/20/24 19:28 pork derived (porcine) Allergy Vomiting Verified 11/10/24 17:49 Assessment & Plan Assessment & Plan (1) MDD (major depressive disorder), recurrent episode, moderate: Status: Acute Code(s): F33.1 - Major depressive disorder, recurrent, moderate (2) 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 Barreto is a 78 year-old woman with hx of MDD who was assessed by N at request of her son who called 911 after pt had reported suicidal ideation with plan to OD. In the ED, pt adamantly denied suicidal ideation but reports feeling increasingly more depressed due to involuntary, ongoing movement of lower extremities. She attributes her depressed mood and increase anxious mood to RLS. She has also been treated as tardive akathisia, note that she was previously prescribed abilify. It is noted that she may have iron deficiency due to normocytic anemia which can exacerbate RLS. It is unclear which medications for hyperkinetic movements of the legs are actually helpful and furthermore it is not easily to differentiate whether it is tardive akathisia or RLS. She has been on psychotropic medications that are known to cause akathisia such as abilify. She reports subjective sense of restlessness. Involuntary movement seems to be throughout the day. We will have to do trial of medications that target akathisia such as propanolol and ativan versus medications such as pramipexol for RLS (note that in RLS there is an initial relief with dopamine agonist but can make it worse over time). In addition, will try iron deficiency as it is an underlying cause and exacerbating factor in RLS. PLAN 7/24 continue tx. will monitor before making substantial changes every day. 11/15 continue tx. pt somatically preoccupied. 11/16: Continue current management and treatment plan. 11/17: continue current management and treatment plan. 11/18 start buspar 10mg po TID for SHEILA. continue all other meds. 11/19 increase buspar 20mg po TID 11/20 appears calmer, less somatically preccupied. continue current medications. 11/21 sodium stable. continues to present as less dysphoric, calmer. reports of dizziness (VS not hotn nor orthostatic), ?vertigo, will try low dose of meclizine otherwise will consult hospitalist for further management. 8.2- pt more focused on gi issues- and anxiety/forgetfulness- continue to monitor somatic complaints- dc qid poc 11/25 will lowered ropinirole as it may increasing anxiety, noted that buspar was lowered, do not think this medication was causing fogginess as pt appeared much calmer since we added buspar. She was started on low dose clonazepam. 11/26 continue tx. received one time dose xanax, but reported feeling overly sedated (although did not appear sedated) 11/27 somatically p8/9: Continue current regimen and plansreoccupied, no change in medications. 11/29 continue tx. 11/30: Continue current regimen and plans Reason for continued inpatient stay Substantial Risk for: inability to function Time Spent With Patient Time: Total time managing care of this patient today ____ minutes.
[2024-11-30] MEDS: clonazePAM ODT 0.125 MG TAB.RAPDIS 0.25 MG PO (16:36)
[2024-11-30 20:00] VITALS: BP 136/69; PULSE 88; RESP 18; TEMP 36.3; O2SAT 99
[2024-12-01 07:24] LABS: Glucose, Whole Blood 129 mg/dL (60-115)
[2024-12-01 08:00] VITALS: BP 127/62; PULSE 92; RESP 16; TEMP 36.1; O2SAT 98
[2024-12-01] MEDS: Fluticasone/Vilanterol 100/25 BLST.W.DEV 1 PUFF INHALE (08:58)
--- NOTE | 2024-12-01 10:52 | HO.PSYCHPN ---
Subjective Subjective Date of Service: 12/01/24 Reason For Visit: SI with plan to OD on medications, increased anxie Subjective Notes: Conditional Voluntary Interim History: Patient was seen and discussed in rounds today. Records and plans were reviewed. She continues to be very anxious and somatically preoccupied. Not happy about disposition options. No pain. Medication compliant. No side effects. Complained about her limitations with food choices given her upper GI complaints. No dangerous behaviors. No changes were made today Review of Systems Review of Systems Yes all other systems are reviewed and are negative Mental Status Exam Mental Status Exam Narrative: She is alert, pleasant and cooperative. Speech is normal. Moderate eye contact. Affect is appropriate and contained. Moderate anxiety present. No acute signs of psychosis. Cognitively impaired. Judgment is impaired Diagnostics Vital Signs (24Hr): Vital Signs - 24 hr 11/30/24 20:00 12/01/24 08:00 Temperature 97.3 F 97.0 F Pulse Rate 88 92 Respiratory Rate 18 16 Blood Pressure 136/69 127/62 Pulse Oximetry 99 98 Oxygen Delivery Method Room Air Room Air BMI result Body Mass Index 23.0 Labs 11/02/24 20:14 11/20/24 11:02 Labs: Laboratory Results - last 48 hr 11/30/24 12/01/24 06:16 06:37 POC Glucose 136 H 129 H Imaging Radiology Impressions: ITS Impressions Hip/Pelvis X-Ray 11/05/24 11:00 IMPRESSION: Unremarkable examination of the left hip. Electronically signed by: Sam Saini MD 11/05/2024 11:13 AM EDT RP KUB X-Ray 11/06/24 09:20 IMPRESSION: Large amount of stool throughout the colon. Electronically signed by: Sam Saini MD 11/06/2024 09:34 AM EDT RP Head CT 11/08/24 14:58 IMPRESSION: Left frontal soft tissue swelling. No acute intracranial abnormality. Electronically signed by: Sam Saini MD 11/08/2024 03:18 PM EDT RP Medications Medications Current Medications Acetaminophen (Acetaminophen 325 Mg Tablet) 650 mg PO Q6H PRN PRN Reason: Headache/Pain, Scale 1-10 Last Admin: 11/30/24 21:33 Dose: 650 mg Al Hydroxide/Mg Hydroxide (Magnesium Hydrox/Alum Hydrox 30 Ml Oral.Susp) 30 ml PO Q6H PRN PRN Reason: Heartburn/Nausea Last Admin: 11/28/24 15:56 Dose: 30 ml Albuterol Sulfate (Albuterol Sulfate 90 Mcg 8 Gm Inhaler) 2 puff INHALE Q4H PRN PRN Reason: Shortness Of Breath Or Wheezin Amlodipine Besylate (Amlodipine Besylate 2.5 Mg Tablet) 2.5 mg PO DAILY [facility]; Protocol Last Admin: 12/01/24 08:57 Dose: 2.5 mg Atorvastatin Calcium (Atorvastatin Calcium 20 Mg Tablet) 20 mg PO DAILY [facility] Last Admin: 12/01/24 08:57 Dose: 20 mg Bisacodyl (Bisacodyl 10 Mg Supp.Rect) 10 mg ME BEDTIME PRN PRN Reason: Constipation Last Admin: 11/04/24 20:37 Dose: 10 mg Buspirone HCl (Buspirone Hcl 10 Mg Tablet) 10 mg PO TID [facility] Last Admin: 12/01/24 08:55 Dose: 10 mg Calcium Carbonate (Calcium Carbonate 750 Mg Tab.Chew) 750 mg PO Q4H PRN PRN Reason: Heartburn Last Admin: 11/30/24 21:34 Dose: 750 mg Clonazepam (Clonazepam Odt 0.125 Mg Tab.Rapdis) 0.25 mg PO BID PRN PRN Reason: anxiety/restlessness Last Admin: 11/30/24 16:36 Dose: 0.25 mg Dicyclomine HCl (Dicyclomine Hcl 10 Mg Capsule) 10 mg PO Q4H PRN PRN Reason: abdominal cramping Last Admin: 11/30/24 21:33 Dose: 10 mg Docusate Sodium (Docusate Sodium 100 Mg Capsule) 100 mg PO BID [facility] Last Admin: 12/01/24 08:57 Dose: 100 mg Duloxetine HCl (Duloxetine Hcl 60 Mg Capsule.Dr) 60 mg PO DAILY [facility] Last Admin: 12/01/24 08:55 Dose: 60 mg Fluticasone/Vilanterol (Fluticasone/Vilanterol 100/25 Blst.W.Dev) 1 puff INHALE RDAILY [facility] Last Admin: 12/01/24 08:58 Dose: 1 puff Gabapentin (Gabapentin 100 Mg Capsule) 100 mg PO TID [facility] Last Admin: 12/01/24 08:56 Dose: 100 mg Glipizide (Glipizide Xl 2.5 Mg Tab.Er.24) 2.5 mg PO DAILY [facility] Last Admin: 12/01/24 08:56 Dose: 2.5 mg Hydroxyzine HCl (Hydroxyzine Hcl 10 Mg Tablet) 10 mg PO Q6H PRN PRN Reason: anxiety/restlessness Last Admin: 11/30/24 21:34 Dose: 10 mg Lisinopril (Lisinopril 2.5 Mg Tablet) 2.5 mg PO DAILY [facility]; Protocol Last Admin: 12/01/24 08:56 Dose: 2.5 mg Magnesium Hydroxide (Milk Of Magnesia 30 Ml Oral.Susp) 30 ml PO DAILY PRN PRN Reason: Constipation Last Admin: 11/04/24 16:49 Dose: 30 ml Mirtazapine (Mirtazapine 30 Mg Tablet) 30 mg PO BEDTIME [facility] Last Admin: 11/30/24 21:33 Dose: 30 mg Omeprazole (Omeprazole 20 Mg Capsule.Dr) 20 mg PO BID@0630,1630 [facility] Last Admin: 12/01/24 06:35 Dose: 20 mg Ondansetron HCl (Ondansetron Odt 4 Mg Tab.Rapdis) 4 mg TRANSLINGU Q4H PRN PRN Reason: Nausea and Vomiting Last Admin: 12/01/24 07:38 Dose: 4 mg Polyethylene Glycol (Polyethylene Glycol 3350 17 Gm Powd.Pack) 17 gm PO BID [facility] Last Admin: 12/01/24 08:58 Dose: Not Given Pramipexole Dihydrochloride (Pramipexole Di-Hcl 0.125 Mg Tablet) 0.125 mg PO DAILY [facility] Last Admin: 12/01/24 08:57 Dose: 0.125 mg Pyridoxine HCl (Pyridoxine Hcl (Vitamin B6) 50 Mg Tablet) 50 mg PO DAILY [facility] Last Admin: 12/01/24 08:56 Dose: 50 mg Ropinirole HCl (Ropinirole Hcl 2 Mg Tablet) 2 mg PO DAILY@1700 [facility] Last Admin: 11/30/24 16:30 Dose: 2 mg Senna (Sennosides 8.6 Mg Tablet) 17.2 mg PO BEDTIME [facility] On Hold: 11/06/24 16:27 Last Admin: 11/05/24 19:39 Dose: 17.2 mg Simethicone (Simethicone 80 Mg Tab.Chew) 80 mg PO QIDWMHS [facility] Last Admin: 12/01/24 08:56 Dose: 80 mg Sitagliptin Phosphate (Sitagliptin Phosphate 25 Mg Tablet) 25 mg PO DAILY [facility] Last Admin: 12/01/24 08:58 Dose: 25 mg Trazodone HCl (Trazodone Hcl 50 Mg Tablet) 50 mg PO BEDTIME MRX1 PRN PRN Reason: Insomnia Last Admin: 11/30/24 21:34 Dose: 50 mg Allergies Allergies Allergy/AdvReac Type Severity Reaction Status Date / Time ampicillin Allergy Rash Verified 10/20/24 19:28 morphine Allergy Rash Verified 10/20/24 19:28 Penicillins Allergy Rash Verified 10/20/24 19:28 pork derived (porcine) Allergy Vomiting Verified 11/10/24 17:49 Assessment & Plan Assessment & Plan (1) MDD (major depressive disorder), recurrent episode, moderate: Status: Acute Code(s): F33.1 - Major depressive disorder, recurrent, moderate (2) 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 Barreto is a 78 year-old woman with hx of MDD who was assessed by N at request of her son who called 911 after pt had reported suicidal ideation with plan to OD. In the ED, pt adamantly denied suicidal ideation but reports feeling increasingly more depressed due to involuntary, ongoing movement of lower extremities. She attributes her depressed mood and increase anxious mood to RLS. She has also been treated as tardive akathisia, note that she was previously prescribed abilify. It is noted that she may have iron deficiency due to normocytic anemia which can exacerbate RLS. It is unclear which medications for hyperkinetic movements of the legs are actually helpful and furthermore it is not easily to differentiate whether it is tardive akathisia or RLS. She has been on psychotropic medications that are known to cause akathisia such as abilify. She reports subjective sense of restlessness. Involuntary movement seems to be throughout the day. We will have to do trial of medications that target akathisia such as propanolol and ativan versus medications such as pramipexol for RLS (note that in RLS there is an initial relief with dopamine agonist but can make it worse over time). In addition, will try iron deficiency as it is an underlying cause and exacerbating factor in RLS. PLAN 11/14 continue tx. will monitor before making substantial changes every day. 11/15 continue tx. pt somatically preoccupied. 11/16: Continue current management and treatment plan. 11/17: continue current management and treatment plan. 11/18 start buspar 10mg po TID for SHEILA. continue all other meds. 11/19 increase buspar 20mg po TID 11/20 appears calmer, less somatically preccupied. continue current medications. 11/21 sodium stable. continues to present as less dysphoric, calmer. reports of dizziness (VS not hotn nor orthostatic), ?vertigo, will try low dose of meclizine otherwise will consult hospitalist for further management. 8.2- pt more focused on gi issues- and anxiety/forgetfulness- continue to monitor somatic complaints- dc qid poc 11/25 will lowered ropinirole as it may increasing anxiety, noted that buspar was lowered, do not think this medication was causing fogginess as pt appeared much calmer since we added buspar. She was started on low dose clonazepam. 11/26 continue tx. received one time dose xanax, but reported feeling overly sedated (although did not appear sedated) 11/27 somatically p8/9: Continue current regimen and plansreoccupied, no change in medications. 11/29 continue tx. 11/30: Continue current regimen and plans 12/01: Continue current plans and regimen Reason for continued inpatient stay Substantial Risk for: inability to function and med/psych decompensation Time Spent With Patient Time: Total time managing care of this patient today ____ minutes.
[2024-12-01] MEDS: Magnesium Hydrox/Alum Hydrox 30 ML ORAL.SUSP PO (13:21)
[2024-12-01] MEDS: clonazePAM ODT 0.125 MG TAB.RAPDIS 0.25 MG PO (16:41)
[2024-12-01 19:35] VITALS: BP 141/67; PULSE 85; RESP 16; TEMP 36.2; O2SAT 100
[2024-12-02 06:33] LABS: Glucose, Whole Blood 163 mg/dL (60-115)
[2024-12-02 08:26] VITALS: BP 136/63; PULSE 88; RESP 16; TEMP 36.3; O2SAT 100
[2024-12-02] MEDS: Fluticasone/Vilanterol 100/25 BLST.W.DEV 1 PUFF INHALE (08:29)
--- NOTE | 2024-12-02 08:51 | HO.PSYCHPN ---
Subjective Subjective Date of Service: 12/02/24 Reason For Visit: SI with plan to OD on medications, increased anxie Subjective Notes: Conditional Voluntary Interim History: Pt sleeping through the night. She reports she had a fairly good weekend. She reports she noticed that when anxious she has blurry vision. She asks this check writer salesperson to give her medication for anxiety... which it was explained to her she is already on medication for anxiety and depression. We discussed increasing buspar, which actually seemed to have help when first started. She denied SI/HI. Medication Compliance: Yes Diagnostics Vital Signs (24Hr): Vital Signs - 24 hr 12/01/24 19:35 12/02/24 08:26 Temperature 97.2 F 97.3 F Pulse Rate 85 88 Respiratory Rate 16 16 Blood Pressure 141/67 H 136/63 Pulse Oximetry 100 100 Oxygen Delivery Method Room Air Room Air BMI result Body Mass Index 23.0 Labs 11/02/24 20:14 11/20/24 11:02 Labs: Laboratory Results - last 48 hr 12/01/24 12/02/24 06:37 06:24 POC Glucose 129 H 163 H Imaging Radiology Impressions: ITS Impressions Hip/Pelvis X-Ray 11/05/24 11:00 IMPRESSION: Unremarkable examination of the left hip. Electronically signed by: Sam Saini MD 11/05/2024 11:13 AM EDT RP KUB X-Ray 11/06/24 09:20 IMPRESSION: Large amount of stool throughout the colon. Electronically signed by: Sam Saini MD 11/06/2024 09:34 AM EDT RP Head CT 11/08/24 14:58 IMPRESSION: Left frontal soft tissue swelling. No acute intracranial abnormality. Electronically signed by: Sma Saini MD 11/08/2024 03:18 PM EDT RP Medications Medications Current Medications Acetaminophen (Acetaminophen 325 Mg Tablet) 650 mg PO Q6H PRN PRN Reason: Headache/Pain, Scale 1-10 Last Admin: 12/01/24 14:45 Dose: 650 mg Al Hydroxide/Mg Hydroxide (Magnesium Hydrox/Alum Hydrox 30 Ml Oral.Susp) 30 ml PO Q6H PRN PRN Reason: Heartburn/Nausea Last Admin: 12/01/24 13:21 Dose: 30 ml Albuterol Sulfate (Albuterol Sulfate 90 Mcg 8 Gm Inhaler) 2 puff INHALE Q4H PRN PRN Reason: Shortness Of Breath Or Wheezin Amlodipine Besylate (Amlodipine Besylate 2.5 Mg Tablet) 2.5 mg PO DAILY [facility]; Protocol Last Admin: 12/02/24 08:31 Dose: 2.5 mg Atorvastatin Calcium (Atorvastatin Calcium 20 Mg Tablet) 20 mg PO DAILY [facility] Last Admin: 12/02/24 08:30 Dose: 20 mg Bisacodyl (Bisacodyl 10 Mg Supp.Rect) 10 mg ID BEDTIME PRN PRN Reason: Constipation Last Admin: 11/04/24 20:37 Dose: 10 mg Buspirone HCl (Buspirone Hcl 10 Mg Tablet) 10 mg PO TID [facility] Last Admin: 12/02/24 08:30 Dose: 10 mg Calcium Carbonate (Calcium Carbonate 750 Mg Tab.Chew) 750 mg PO Q4H PRN PRN Reason: Heartburn Last Admin: 11/30/24 21:34 Dose: 750 mg Clonazepam (Clonazepam Odt 0.125 Mg Tab.Rapdis) 0.25 mg PO BID PRN PRN Reason: anxiety/restlessness Last Admin: 12/01/24 16:41 Dose: 0.25 mg Dicyclomine HCl (Dicyclomine Hcl 10 Mg Capsule) 10 mg PO Q4H PRN PRN Reason: abdominal cramping Last Admin: 12/01/24 20:11 Dose: 10 mg Docusate Sodium (Docusate Sodium 100 Mg Capsule) 100 mg PO BID [facility] Last Admin: 12/02/24 08:30 Dose: 100 mg Duloxetine HCl (Duloxetine Hcl 60 Mg Capsule.Dr) 60 mg PO DAILY [facility] Last Admin: 12/02/24 08:31 Dose: 60 mg Fluticasone/Vilanterol (Fluticasone/Vilanterol 100/25 Blst.W.Dev) 1 puff INHALE RDAILY [facility] Last Admin: 12/02/24 08:29 Dose: 1 puff Gabapentin (Gabapentin 100 Mg Capsule) 100 mg PO TID [facility] Last Admin: 12/02/24 08:31 Dose: 100 mg Glipizide (Glipizide Xl 2.5 Mg Tab.Er.24) 2.5 mg PO DAILY [facility] Last Admin: 12/02/24 08:30 Dose: 2.5 mg Hydroxyzine HCl (Hydroxyzine Hcl 10 Mg Tablet) 10 mg PO Q6H PRN PRN Reason: anxiety/restlessness Last Admin: 12/01/24 10:52 Dose: 10 mg Lisinopril (Lisinopril 2.5 Mg Tablet) 2.5 mg PO DAILY [facility]; Protocol Last Admin: 12/02/24 08:32 Dose: 2.5 mg Magnesium Hydroxide (Milk Of Magnesia 30 Ml Oral.Susp) 30 ml PO DAILY PRN PRN Reason: Constipation Last Admin: 11/04/24 16:49 Dose: 30 ml Mirtazapine (Mirtazapine 30 Mg Tablet) 30 mg PO BEDTIME [facility] Last Admin: 12/01/24 20:00 Dose: 30 mg Omeprazole (Omeprazole 20 Mg Capsule.Dr) 20 mg PO BID@0630,1630 [facility] Last Admin: 12/02/24 06:21 Dose: 20 mg Ondansetron HCl (Ondansetron Odt 4 Mg Tab.Rapdis) 4 mg TRANSLINGU Q4H PRN PRN Reason: Nausea and Vomiting Last Admin: 12/01/24 07:38 Dose: 4 mg Polyethylene Glycol (Polyethylene Glycol 3350 17 Gm Powd.Pack) 17 gm PO BID [facility] Last Admin: 12/02/24 08:33 Dose: Not Given Pramipexole Dihydrochloride (Pramipexole Di-Hcl 0.125 Mg Tablet) 0.125 mg PO DAILY [facility] Last Admin: 12/02/24 08:31 Dose: 0.125 mg Pyridoxine HCl (Pyridoxine Hcl (Vitamin B6) 50 Mg Tablet) 50 mg PO DAILY [facility] Last Admin: 12/02/24 08:31 Dose: 50 mg Ropinirole HCl (Ropinirole Hcl 2 Mg Tablet) 2 mg PO DAILY@1700 [facility] Last Admin: 12/01/24 16:25 Dose: 2 mg Senna (Sennosides 8.6 Mg Tablet) 17.2 mg PO BEDTIME [facility] On Hold: 11/06/24 16:27 Last Admin: 11/05/24 19:39 Dose: 17.2 mg Simethicone (Simethicone 80 Mg Tab.Chew) 80 mg PO QIDWMHS [facility] Last Admin: 12/02/24 08:33 Dose: 80 mg Sitagliptin Phosphate (Sitagliptin Phosphate 25 Mg Tablet) 25 mg PO DAILY [facility] Last Admin: 12/02/24 08:32 Dose: 25 mg Trazodone HCl (Trazodone Hcl 50 Mg Tablet) 50 mg PO BEDTIME MRX1 PRN PRN Reason: Insomnia Last Admin: 11/30/24 21:34 Dose: 50 mg Allergies Allergies Allergy/AdvReac Type Severity Reaction Status Date / Time ampicillin Allergy Rash Verified 10/20/24 19:28 morphine Allergy Rash Verified 10/20/24 19:28 Penicillins Allergy Rash Verified 10/20/24 19:28 pork derived (porcine) Allergy Vomiting Verified 11/10/24 17:49 Assessment & Plan Assessment & Plan (1) MDD (major depressive disorder), recurrent episode, moderate: Status: Acute Code(s): F33.1 - Major depressive disorder, recurrent, moderate (2) 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 Barreto is a 78 year-old woman with hx of MDD who was assessed by N at request of her son who called 911 after pt had reported suicidal ideation with plan to OD. In the ED, pt adamantly denied suicidal ideation but reports feeling increasingly more depressed due to involuntary, ongoing movement of lower extremities. She attributes her depressed mood and increase anxious mood to RLS. She has also been treated as tardive akathisia, note that she was previously prescribed abilify. It is noted that she may have iron deficiency due to normocytic anemia which can exacerbate RLS. It is unclear which medications for hyperkinetic movements of the legs are actually helpful and furthermore it is not easily to differentiate whether it is tardive akathisia or RLS. She has been on psychotropic medications that are known to cause akathisia such as abilify. She reports subjective sense of restlessness. Involuntary movement seems to be throughout the day. We will have to do trial of medications that target akathisia such as propanolol and ativan versus medications such as pramipexol for RLS (note that in RLS there is an initial relief with dopamine agonist but can make it worse over time). In addition, will try iron deficiency as it is an underlying cause and exacerbating factor in RLS. PLAN 11/14 continue tx. will monitor before making substantial changes every day. 11/15 continue tx. pt somatically preoccupied. 11/16: Continue current management and treatment plan. 11/17: continue current management and treatment plan. 11/18 start buspar 10mg po TID for SHEILA. continue all other meds. 11/19 increase buspar 20mg po TID 11/20 appears calmer, less somatically preccupied. continue current medications. 11/21 sodium stable. continues to present as less dysphoric, calmer. reports of dizziness (VS not hotn nor orthostatic), ?vertigo, will try low dose of meclizine otherwise will consult hospitalist for further management. 8.2- pt more focused on gi issues- and anxiety/forgetfulness- continue to monitor somatic complaints- dc qid poc 11/25 will lowered ropinirole as it may increasing anxiety, noted that buspar was lowered, do not think this medication was causing fogginess as pt appeared much calmer since we added buspar. She was started on low dose clonazepam. 11/26 continue tx. received one time dose xanax, but reported feeling overly sedated (although did not appear sedated) 11/27 somatically p8/9: Continue current regimen and plansreoccupied, no change in medications. 11/29 continue tx. 11/30: Continue current regimen and plans 12/01: Continue current plans and regimen 12/02 increase buspar 20mg po TID. Reason for continued inpatient stay Substantial Risk for: inability to function Time Spent With Patient Time: Total time managing care of this patient today ____ minutes.
[2024-12-02] MEDS: clonazePAM ODT 0.125 MG TAB.RAPDIS 0.25 MG PO (12:40)
[2024-12-02 19:59] VITALS: BP 109/66; PULSE 93; RESP 16; TEMP 36.1; O2SAT 99
[2024-12-03 06:28] LABS: Glucose, Whole Blood 182 mg/dL (60-115)
[2024-12-03 08:00] VITALS: BP 127/73; PULSE 90; RESP 14; TEMP 2.5; TEMP 36.5; O2SAT 100
[2024-12-03] MEDS: Fluticasone/Vilanterol 100/25 BLST.W.DEV 1 PUFF INHALE (12:03)
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
[2024-12-03 16:35] LABS: Glucose, Whole Blood 120 mg/dL (60-115)
[2024-12-03] MEDS: clonazePAM ODT 0.125 MG TAB.RAPDIS 0.25 MG PO (16:41)
[2024-12-03 19:54] VITALS: BP 128/59; PULSE 93; RESP 16; TEMP 36.1; O2SAT 98
[2024-12-04 05:57] LABS: Glucose, Whole Blood 161 mg/dL (60-115)
[2024-12-04 08:15] VITALS: BP 143/70; PULSE 95; RESP 16; TEMP 36.1; O2SAT 96
[2024-12-04] MEDS: buPROPion HCl XL 150 MG TAB.ER.24H PO (08:50)
[2024-12-04] MEDS: Fluticasone/Vilanterol 100/25 BLST.W.DEV 1 PUFF INHALE (08:52)
--- NOTE | 2024-12-04 11:40 | HO.PSYCHPN ---
Subjective Subjective Date of Service: 12/04/24 Reason For Visit: SI with plan to OD on medications, increased anxie Interim History: slept well, no issues. no complaints re wellbutrin this morning, aware it may take a few days to kick in. per staff, increased depression. feels meds aren't working. feeling like she needs to sleep all the time. slept well overnight. planning to return to [facility] once improved. Mental Status Exam Mental Status Exam Narrative: She is alert, pleasant and cooperative. Speech is normal. Moderate eye contact. Affect is appropriate and contained. Moderate anxiety present. No acute signs of psychosis. Cognitively impaired. Judgment is impaired Diagnostics Vital Signs (24Hr): Vital Signs - 24 hr 12/03/24 19:54 12/04/24 08:15 Temperature 97.0 F 97 F Pulse Rate 93 95 Respiratory Rate 16 16 Blood Pressure 128/59 L 143/70 H Pulse Oximetry 98 96 Oxygen Delivery Method Room Air Room Air BMI result Body Mass Index 23.0 Labs 11/02/24 20:14 11/20/24 11:02 Labs: Laboratory Results - last 48 hr 12/03/24 12/03/24 12/04/24 06:17 16:25 05:52 POC Glucose 182 H 120 H 161 H Imaging Radiology Impressions: ITS Impressions Hip/Pelvis X-Ray 11/05/24 11:00 IMPRESSION: Unremarkable examination of the left hip. Electronically signed by: Sam Saini MD 11/05/2024 11:13 AM EDT KUB X-Ray 11/06/24 09:20 IMPRESSION: Large amount of stool throughout the colon. Electronically signed by: Sam Saini MD 11/06/2024 09:34 AM EDT RP Head CT 11/08/24 14:58 IMPRESSION: Left frontal soft tissue swelling. No acute intracranial abnormality. Electronically signed by: Sam Saini MD 11/08/2024 03:18 PM EDT Medications Medications Current Medications Acetaminophen (Acetaminophen 325 Mg Tablet) 650 mg PO Q6H PRN PRN Reason: Headache/Pain, Scale 1-10 Last Admin: 12/01/24 14:45 Dose: 650 mg Al Hydroxide/Mg Hydroxide (Magnesium Hydrox/Alum Hydrox 30 Ml Oral.Susp) 30 ml PO Q6H PRN PRN Reason: Heartburn/Nausea Last Admin: 12/01/24 13:21 Dose: 30 ml Albuterol Sulfate (Albuterol Sulfate 90 Mcg 8 Gm Inhaler) 2 puff INHALE Q4H PRN PRN Reason: Shortness Of Breath Or Wheezin Amlodipine Besylate (Amlodipine Besylate 2.5 Mg Tablet) 2.5 mg PO DAILY [facility]; Protocol Last Admin: 12/04/24 08:50 Dose: 2.5 mg Atorvastatin Calcium (Atorvastatin Calcium 20 Mg Tablet) 20 mg PO DAILY [facility] Last Admin: 12/04/24 08:51 Dose: 20 mg Bisacodyl (Bisacodyl 10 Mg Supp.Rect) 10 mg TX BEDTIME PRN PRN Reason: Constipation Last Admin: 11/04/24 20:37 Dose: 10 mg Bupropion HCl (Bupropion Hcl Xl 150 Mg Tab.Er.24h) 150 mg PO DAILY [facility] Last Admin: 12/04/24 08:50 Dose: 150 mg Buspirone HCl (Buspirone Hcl 10 Mg Tablet) 20 mg PO TID [facility] Last Admin: 12/04/24 08:44 Dose: 20 mg Calcium Carbonate (Calcium Carbonate 750 Mg Tab.Chew) 750 mg PO Q4H PRN PRN Reason: Heartburn Last Admin: 11/30/24 21:34 Dose: 750 mg Clonazepam (Clonazepam Odt 0.125 Mg Tab.Rapdis) 0.25 mg PO BID PRN PRN Reason: anxiety/restlessness Last Admin: 12/03/24 16:41 Dose: 0.25 mg Clonazepam (Clonazepam 0.5 Mg Tablet) 0.25 mg PO BEDTIME [facility] Last Admin: 12/03/24 20:27 Dose: 0.25 mg Dicyclomine HCl (Dicyclomine Hcl 10 Mg Capsule) 10 mg PO Q4H PRN PRN Reason: abdominal cramping Last Admin: 12/01/24 20:11 Dose: 10 mg Docusate Sodium (Docusate Sodium 100 Mg Capsule) 100 mg PO BID [facility] Last Admin: 12/04/24 08:50 Dose: 100 mg Duloxetine HCl (Duloxetine Hcl 60 Mg Capsule.Dr) 60 mg PO DAILY [facility] Last Admin: 12/04/24 08:43 Dose: 60 mg Fluticasone/Vilanterol (Fluticasone/Vilanterol 100/25 Blst.W.Dev) 1 puff INHALE RDAILY [facility] Last Admin: 12/04/24 08:52 Dose: 1 puff Gabapentin (Gabapentin 100 Mg Capsule) 100 mg PO TID [facility] Last Admin: 12/04/24 08:51 Dose: 100 mg Glipizide (Glipizide Xl 2.5 Mg Tab.Er.24) 2.5 mg PO DAILY [facility] Last Admin: 12/04/24 08:51 Dose: 2.5 mg Lisinopril (Lisinopril 2.5 Mg Tablet) 2.5 mg PO DAILY [facility]; Protocol Last Admin: 12/04/24 08:49 Dose: 2.5 mg Magnesium Hydroxide (Milk Of Magnesia 30 Ml Oral.Susp) 30 ml PO DAILY PRN PRN Reason: Constipation Last Admin: 11/04/24 16:49 Dose: 30 ml Mirtazapine (Mirtazapine 30 Mg Tablet) 30 mg PO BEDTIME [facility] Last Admin: 12/03/24 20:28 Dose: 30 mg Omeprazole (Omeprazole 20 Mg Capsule.Dr) 20 mg PO BID@0630,1630 [facility] Last Admin: 12/04/24 05:34 Dose: 20 mg Ondansetron HCl (Ondansetron Odt 4 Mg Tab.Rapdis) 4 mg TRANSLINGU Q4H PRN PRN Reason: Nausea and Vomiting Last Admin: 12/02/24 09:29 Dose: 4 mg Polyethylene Glycol (Polyethylene Glycol 3350 17 Gm Powd.Pack) 17 gm PO BID [facility] Last Admin: 12/04/24 08:52 Dose: Not Given Pramipexole Dihydrochloride (Pramipexole Di-Hcl 0.125 Mg Tablet) 0.125 mg PO DAILY [facility] Last Admin: 12/04/24 08:49 Dose: 0.125 mg Pyridoxine HCl (Pyridoxine Hcl (Vitamin B6) 50 Mg Tablet) 50 mg PO DAILY [facility] Last Admin: 12/04/24 08:51 Dose: 50 mg Ropinirole HCl (Ropinirole Hcl 2 Mg Tablet) 2 mg PO DAILY@1700 [facility] Last Admin: 12/03/24 16:41 Dose: 2 mg Senna (Sennosides 8.6 Mg Tablet) 17.2 mg PO BEDTIME [facility] On Hold: 11/06/24 16:27 Last Admin: 11/05/24 19:39 Dose: 17.2 mg Simethicone (Simethicone 80 Mg Tab.Chew) 80 mg PO QIDWMHS [facility] Last Admin: 12/04/24 08:49 Dose: 80 mg Sitagliptin Phosphate (Sitagliptin Phosphate 25 Mg Tablet) 25 mg PO DAILY [facility] Last Admin: 12/04/24 08:51 Dose: 25 mg Trazodone HCl (Trazodone Hcl 50 Mg Tablet) 50 mg PO BEDTIME MRX1 PRN PRN Reason: Insomnia Last Admin: 11/30/24 21:34 Dose: 50 mg Allergies Allergies Allergy/AdvReac Type Severity Reaction Status Date / Time ampicillin Allergy Rash Verified 10/20/24 19:28 morphine Allergy Rash Verified 10/20/24 19:28 Penicillins Allergy Rash Verified 10/20/24 19:28 pork derived (porcine) Allergy Vomiting Verified 11/10/24 17:49 Assessment & Plan Assessment & Plan (1) MDD (major depressive disorder), recurrent episode, moderate: Status: Acute Code(s): F33.1 - Major depressive disorder, recurrent, moderate (2) 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 Barreto is a 78 year-old woman with hx of MDD who was assessed by N at request of her son who called 911 after pt had reported suicidal ideation with plan to OD. In the ED, pt adamantly denied suicidal ideation but reports feeling increasingly more depressed due to involuntary, ongoing movement of lower extremities. She attributes her depressed mood and increase anxious mood to RLS. She has also been treated as tardive akathisia, note that she was previously prescribed abilify. It is noted that she may have iron deficiency due to normocytic anemia which can exacerbate RLS. It is unclear which medications for hyperkinetic movements of the legs are actually helpful and furthermore it is not easily to differentiate whether it is tardive akathisia or RLS. She has been on psychotropic medications that are known to cause akathisia such as abilify. She reports subjective sense of restlessness. Involuntary movement seems to be throughout the day. We will have to do trial of medications that target akathisia such as propanolol and ativan versus medications such as pramipexol for RLS (note that in RLS there is an initial relief with dopamine agonist but can make it worse over time). In addition, will try iron deficiency as it is an underlying cause and exacerbating factor in RLS. PLAN 11/14 continue tx. will monitor before making substantial changes every day. 11/15 continue tx. pt somatically preoccupied. 11/16: Continue current management and treatment plan. 11/17: continue current management and treatment plan. 11/18 start buspar 10mg po TID for SHEILA. continue all other meds. 11/19 increase buspar 20mg po TID 11/20 appears calmer, less somatically preoccupied. continue current medications. 11/21 sodium stable. continues to present as less dysphoric, calmer. reports of dizziness (VS not hotn nor orthostatic), ?vertigo, will try low dose of meclizine otherwise will consult hospitalist for further management. 8.2- pt more focused on gi issues- and anxiety/forgetfulness- continue to monitor somatic complaints- dc qid poc 11/25 will lowered ropinirole as it may increasing anxiety, noted that buspar was lowered, do not think this medication was causing fogginess as pt appeared much calmer since we added buspar. She was started on low dose clonazepam. 11/26 continue tx. received one time dose xanax, but reported feeling overly sedated (although did not appear sedated) 11/27 somatically p8/9: Continue current regimen and plansreoccupied, no change in medications. 11/29 continue tx. 11/30: Continue current regimen and plans 12/01: Continue current plans and regimen 12/02 increase buspar 20mg po TID. 12/03: reports depression not improving, c/o feeling low energy and motivation, saying she needs a turkey picker. start wellbutrin XL 150 daily tomorrow for depression. also c/o anxiety-provoking and nocturnally loud peer. schedule klonopin 0.25 QHS for insomnia. otherwise continue current mgmt. awaiting placement. 12/04: slept well last night, started wellbutrin this morning without incident. continue current mgmt. will be discharging to [facility]. Reason for continued inpatient stay Substantial Risk for: inability to function Time Spent With Patient Time: Total time managing care of this patient today __25__ minutes.
[2024-12-04] MEDS: Magnesium Hydrox/Alum Hydrox 30 ML ORAL.SUSP PO (14:04)
[2024-12-04] MEDS: clonazePAM ODT 0.125 MG TAB.RAPDIS 0.25 MG PO (15:25)
[2024-12-04 20:00] VITALS: BP 129/72; PULSE 91; RESP 18; TEMP 36.6; O2SAT 97
[2024-12-05 06:04] LABS: Glucose, Whole Blood 185 mg/dL (60-115)
[2024-12-05 07:00] VITALS: BMI 22.9
[2024-12-05 08:24] VITALS: BP 142/63; PULSE 92; RESP 18; TEMP 37; O2SAT 97
[2024-12-05] MEDS: Fluticasone/Vilanterol 100/25 BLST.W.DEV 1 PUFF INHALE (08:28)
[2024-12-05] MEDS: buPROPion HCl XL 150 MG TAB.ER.24H PO (08:28)
--- NOTE | 2024-12-05 12:07 | P.PNPSI_ITS ---
Subjective Subjective Date of Service: 12/05/24 Reason For Visit: SI with plan to OD on medications, increased anxie Interim History: napping in the morning, no complaints. later approaches c/o severe anxiety and sweating around 3-330 in the afternoon. discussed with nurse, plan made for pt to request klonopin PRN around 2-230. per staff, anxious. somatic. slept 8 hours. placement next week. Mental Status Exam Mental Status Exam Narrative: She is alert, pleasant and cooperative. Speech is normal. Moderate eye contact. Affect is appropriate and contained. Moderate anxiety present. No acute signs of psychosis. Cognitively impaired. Judgment is impaired Diagnostics Vital Signs (24Hr): Vital Signs - 24 hr 12/04/24 20:00 12/05/24 08:24 Temperature 97.8 F 98.6 F Pulse Rate 91 92 Respiratory Rate 18 18 Blood Pressure 129/72 142/63 H Pulse Oximetry 97 97 Oxygen Delivery Method Room Air Room Air BMI result Body Mass Index 23.0 Labs 11/02/24 20:14 11/20/24 11:02 Labs: Laboratory Results - last 48 hr 12/03/24 12/04/24 12/05/24 16:25 05:52 06:00 POC Glucose 120 H 161 H 185 H Imaging Radiology Impressions: ITS Impressions Hip/Pelvis X-Ray 11/05/24 11:00 IMPRESSION: Unremarkable examination of the left hip. Electronically signed by: Sam Saini MD 11/05/2024 11:13 AM EDT RP KUB X-Ray 11/06/24 09:20 IMPRESSION: Large amount of stool throughout the colon. Electronically signed by: Sam Saini MD 11/06/2024 09:34 AM EDT RP Head CT 11/08/24 14:58 IMPRESSION: Left frontal soft tissue swelling. No acute intracranial abnormality. Electronically signed by: Sam Saini MD 11/08/2024 03:18 PM EDT RP Medications Medications Current Medications Acetaminophen (Acetaminophen 325 Mg Tablet) 650 mg PO Q6H PRN PRN Reason: Headache/Pain, Scale 1-10 Last Admin: 12/01/24 14:45 Dose: 650 mg Al Hydroxide/Mg Hydroxide (Magnesium Hydrox/Alum Hydrox 30 Ml Oral.Susp) 30 ml PO Q6H PRN PRN Reason: Heartburn/Nausea Last Admin: 12/04/24 14:04 Dose: 30 ml Albuterol Sulfate (Albuterol Sulfate 90 Mcg 8 Gm Inhaler) 2 puff INHALE Q4H PRN PRN Reason: Shortness Of Breath Or Wheezin Amlodipine Besylate (Amlodipine Besylate 2.5 Mg Tablet) 2.5 mg PO DAILY [facility]; Protocol Last Admin: 12/05/24 08:29 Dose: 2.5 mg Atorvastatin Calcium (Atorvastatin Calcium 20 Mg Tablet) 20 mg PO DAILY [facility] Last Admin: 12/05/24 08:28 Dose: 20 mg Bisacodyl (Bisacodyl 10 Mg Supp.Rect) 10 mg OR BEDTIME PRN PRN Reason: Constipation Last Admin: 11/04/24 20:37 Dose: 10 mg Bupropion HCl (Bupropion Hcl Xl 150 Mg Tab.Er.24h) 150 mg PO DAILY [facility] Last Admin: 12/05/24 08:28 Dose: 150 mg Buspirone HCl (Buspirone Hcl 10 Mg Tablet) 20 mg PO TID [facility] Last Admin: 12/05/24 08:29 Dose: 20 mg Calcium Carbonate (Calcium Carbonate 750 Mg Tab.Chew) 750 mg PO Q4H PRN PRN Reason: Heartburn Last Admin: 11/30/24 21:34 Dose: 750 mg Clonazepam (Clonazepam Odt 0.125 Mg Tab.Rapdis) 0.25 mg PO BID PRN PRN Reason: anxiety/restlessness Last Admin: 12/04/24 15:25 Dose: 0.25 mg Clonazepam (Clonazepam 0.5 Mg Tablet) 0.25 mg PO BEDTIME [facility] Last Admin: 12/04/24 20:38 Dose: 0.25 mg Dicyclomine HCl (Dicyclomine Hcl 10 Mg Capsule) 10 mg PO Q4H PRN PRN Reason: abdominal cramping Last Admin: 12/01/24 20:11 Dose: 10 mg Docusate Sodium (Docusate Sodium 100 Mg Capsule) 100 mg PO BID [facility] Last Admin: 12/05/24 08:28 Dose: 100 mg Duloxetine HCl (Duloxetine Hcl 60 Mg Capsule.Dr) 60 mg PO DAILY [facility] Last Admin: 12/05/24 08:29 Dose: 60 mg Fluticasone/Vilanterol (Fluticasone/Vilanterol 100/25 Blst.W.Dev) 1 puff INHALE RDAILY [facility] Last Admin: 12/05/24 08:28 Dose: 1 puff Gabapentin (Gabapentin 100 Mg Capsule) 100 mg PO TID [facility] Last Admin: 12/05/24 08:29 Dose: 100 mg Glipizide (Glipizide Xl 2.5 Mg Tab.Er.24) 2.5 mg PO DAILY [facility] Last Admin: 12/05/24 08:29 Dose: 2.5 mg Lisinopril (Lisinopril 2.5 Mg Tablet) 2.5 mg PO DAILY [facility]; Protocol Last Admin: 12/05/24 08:29 Dose: 2.5 mg Magnesium Hydroxide (Milk Of Magnesia 30 Ml Oral.Susp) 30 ml PO DAILY PRN PRN Reason: Constipation Last Admin: 11/04/24 16:49 Dose: 30 ml Mirtazapine (Mirtazapine 30 Mg Tablet) 30 mg PO BEDTIME [facility] Last Admin: 12/04/24 20:38 Dose: 30 mg Omeprazole (Omeprazole 20 Mg Capsule.Dr) 20 mg PO BID@0630,1630 [facility] Last Admin: 12/05/24 05:39 Dose: 20 mg Ondansetron HCl (Ondansetron Odt 4 Mg Tab.Rapdis) 4 mg TRANSLINGU Q4H PRN PRN Reason: Nausea and Vomiting Last Admin: 12/02/24 09:29 Dose: 4 mg Polyethylene Glycol (Polyethylene Glycol 3350 17 Gm Powd.Pack) 17 gm PO BID [facility] Last Admin: 12/05/24 08:26 Dose: 17 gm Pramipexole Dihydrochloride (Pramipexole Di-Hcl 0.125 Mg Tablet) 0.125 mg PO DAILY [facility] Last Admin: 12/05/24 08:28 Dose: 0.125 mg Pyridoxine HCl (Pyridoxine Hcl (Vitamin B6) 50 Mg Tablet) 50 mg PO DAILY [facility] Last Admin: 12/05/24 08:28 Dose: 50 mg Ropinirole HCl (Ropinirole Hcl 2 Mg Tablet) 2 mg PO DAILY@1700 [facility] Last Admin: 12/04/24 16:18 Dose: 2 mg Senna (Sennosides 8.6 Mg Tablet) 17.2 mg PO BEDTIME [facility] On Hold: 11/06/24 16:27 Last Admin: 11/05/24 19:39 Dose: 17.2 mg Simethicone (Simethicone 80 Mg Tab.Chew) 80 mg PO QIDWMHS [facility] Last Admin: 12/05/24 08:28 Dose: 80 mg Sitagliptin Phosphate (Sitagliptin Phosphate 25 Mg Tablet) 25 mg PO DAILY [facility] Last Admin: 12/05/24 08:31 Dose: 25 mg Trazodone HCl (Trazodone Hcl 50 Mg Tablet) 50 mg PO BEDTIME MRX1 PRN PRN Reason: Insomnia Last Admin: 12/04/24 20:37 Dose: 50 mg Allergies Allergies Allergy/AdvReac Type Severity Reaction Status Date / Time ampicillin Allergy Rash Verified 10/20/24 19:28 morphine Allergy Rash Verified 10/20/24 19:28 Penicillins Allergy Rash Verified 10/20/24 19:28 pork derived (porcine) Allergy Vomiting Verified 11/10/24 17:49 Assessment & Plan Assessment & Plan (1) MDD (major depressive disorder), recurrent episode, moderate: Status: Acute Code(s): F33.1 - Major depressive disorder, recurrent, moderate (2) 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 Barreto is a 78 year-old woman with hx of MDD who was assessed by N at request of her son who called 911 after pt had reported suicidal ideation with plan to OD. In the ED, pt adamantly denied suicidal ideation but reports feeling increasingly more depressed due to involuntary, ongoing movement of lower extremities. She attributes her depressed mood and increase anxious mood to RLS. She has also been treated as tardive akathisia, note that she was previously prescribed abilify. It is noted that she may have iron deficiency due to normocytic anemia which can exacerbate RLS. It is unclear which medications for hyperkinetic movements of the legs are actually helpful and furthermore it is not easily to differentiate whether it is tardive akathisia or RLS. She has been on psychotropic medications that are known to cause akathisia such as abilify. She reports subjective sense of restlessness. Involuntary movement seems to be throughout the day. We will have to do trial of medications that target akathisia such as propanolol and ativan versus medications such as pramipexol for RLS (note that in RLS there is an initial relief with dopamine agonist but can make it worse over time). In addition, will try iron deficiency as it is an underlying cause and exacerbating factor in RLS. PLAN 11/14 continue tx. will monitor before making substantial changes every day. 11/15 continue tx. pt somatically preoccupied. 11/16: Continue current management and treatment plan. 11/17: continue current management and treatment plan. 11/18 start buspar 10mg po TID for SHEILA. continue all other meds. 11/19 increase buspar 20mg po TID 11/20 appears calmer, less somatically preoccupied. continue current medications. 11/21 sodium stable. continues to present as less dysphoric, calmer. reports of dizziness (VS not hotn nor orthostatic), ?vertigo, will try low dose of meclizine otherwise will consult hospitalist for further management. 8.2- pt more focused on gi issues- and anxiety/forgetfulness- continue to monitor somatic complaints- dc qid poc 11/25 will lowered ropinirole as it may increasing anxiety, noted that buspar was lowered, do not think this medication was causing fogginess as pt appeared much calmer since we added buspar. She was started on low dose clonazepam. 11/26 continue tx. received one time dose xanax, but reported feeling overly sedated (although did not appear sedated) 11/27 somatically p8/9: Continue current regimen and plansreoccupied, no change in medications. 11/29 continue tx. 11/30: Continue current regimen and plans 12/01: Continue current plans and regimen 12/02 increase buspar 20mg po TID. 12/03: reports depression not improving, c/o feeling low energy and motivation, saying she needs a burr picker. start wellbutrin XL 150 daily tomorrow for depression. also c/o anxiety-provoking and nocturnally loud peer. schedule klonopin 0.25 QHS for insomnia. otherwise continue current mgmt. awaiting placement. 12/04: slept well last night, started wellbutrin this morning without incident. continue current mgmt. will be discharging to [facility]. 12/05: slept well. c/o anxiety at 3-330 in the afternoon. pt to ask for klonopin PRN at 2-230. trend anxiety, T/C DC of wellbutrin if anxiety seems reliably increased since starting it. dispo next week likely. Reason for continued inpatient stay Substantial Risk for: inability to function Time Spent With Patient Time: Total time managing care of this patient today __25__ minutes.
[2024-12-05] MEDS: clonazePAM ODT 0.125 MG TAB.RAPDIS 0.25 MG PO (14:27)
[2024-12-05 20:00] VITALS: BP 105/60; PULSE 97; RESP 18; TEMP 36.3; O2SAT 98
[2024-12-06 06:01] LABS: Glucose, Whole Blood 206 mg/dL (60-115)
[2024-12-06 08:00] VITALS: BP 121/67; PULSE 88; RESP 14; TEMP 35.9; O2SAT 97
[2024-12-06] MEDS: buPROPion HCl XL 150 MG TAB.ER.24H PO (08:43)
[2024-12-06] MEDS: Fluticasone/Vilanterol 100/25 BLST.W.DEV 1 PUFF INHALE (08:45)
--- NOTE | 2024-12-06 11:39 | P.PNPSI_ITS ---
Subjective Subjective Date of Service: 12/06/24 Reason For Visit: SI with plan to OD on medications, increased anxie Interim History: tense, calm, cooperative. c/o her head feeling strange this morning, suggests it may be due to anxiety. some difficulty sleeping last night, reassured if related to wellbutrin will pass. no other complaints or requests. per staff, eating well. dep 01/31. c/o severe anxiety afternoons. got PRN klonopin yesterday with good effect. asking to schedule klonopin in afternoons. Mental Status Exam Mental Status Exam Narrative: She is alert, pleasant and cooperative. Speech is normal. Moderate eye contact. Affect is appropriate and contained. Moderate anxiety present. No acute signs of psychosis. Cognitively impaired. Judgment is impaired Diagnostics Vital Signs (24Hr): Vital Signs - 24 hr 12/05/24 20:00 12/06/24 08:00 Temperature 97.3 F 96.7 F L Pulse Rate 97 88 Respiratory Rate 18 14 Blood Pressure 105/60 121/67 Pulse Oximetry 98 97 Oxygen Delivery Method Room Air Room Air BMI result Body Mass Index 22.9 Labs 11/02/24 20:14 11/20/24 11:02 Labs: Laboratory Results - last 48 hr 12/05/24 12/06/24 06:00 05:54 POC Glucose 185 H 206 H Imaging Radiology Impressions: ITS Impressions Hip/Pelvis X-Ray 11/05/24 11:00 IMPRESSION: Unremarkable examination of the left hip. Electronically signed by: Sam Saini MD 11/05/2024 11:13 AM EDT RP KUB X-Ray 11/06/24 09:20 IMPRESSION: Large amount of stool throughout the colon. Electronically signed by: Sam Saini MD 11/06/2024 09:34 AM EDT RP Head CT 11/08/24 14:58 IMPRESSION: Left frontal soft tissue swelling. No acute intracranial abnormality. Electronically signed by: Sam Saini MD 11/08/2024 03:18 PM EDT RP Medications Medications Current Medications Acetaminophen (Acetaminophen 325 Mg Tablet) 650 mg PO Q6H PRN PRN Reason: Headache/Pain, Scale 1-10 Last Admin: 12/01/24 14:45 Dose: 650 mg Al Hydroxide/Mg Hydroxide (Magnesium Hydrox/Alum Hydrox 30 Ml Oral.Susp) 30 ml PO Q6H PRN PRN Reason: Heartburn/Nausea Last Admin: 12/04/24 14:04 Dose: 30 ml Albuterol Sulfate (Albuterol Sulfate 90 Mcg 8 Gm Inhaler) 2 puff INHALE Q4H PRN PRN Reason: Shortness Of Breath Or Wheezin Amlodipine Besylate (Amlodipine Besylate 2.5 Mg Tablet) 2.5 mg PO DAILY [facility]; Protocol Last Admin: 12/06/24 08:43 Dose: 2.5 mg Atorvastatin Calcium (Atorvastatin Calcium 20 Mg Tablet) 20 mg PO DAILY [facility] Last Admin: 12/06/24 09:24 Dose: 20 mg Bisacodyl (Bisacodyl 10 Mg Supp.Rect) 10 mg [place] BEDTIME PRN PRN Reason: Constipation Last Admin: 11/04/24 20:37 Dose: 10 mg Bupropion HCl (Bupropion Hcl Xl 150 Mg Tab.Er.24h) 150 mg PO DAILY [facility] Last Admin: 12/06/24 08:43 Dose: 150 mg Buspirone HCl (Buspirone Hcl 10 Mg Tablet) 20 mg PO TID [facility] Last Admin: 12/06/24 08:42 Dose: 20 mg Calcium Carbonate (Calcium Carbonate 750 Mg Tab.Chew) 750 mg PO Q4H PRN PRN Reason: Heartburn Last Admin: 11/30/24 21:34 Dose: 750 mg Clonazepam (Clonazepam 0.5 Mg Tablet) 0.25 mg PO BEDTIME [facility] Last Admin: 12/05/24 20:08 Dose: 0.25 mg Clonazepam (Clonazepam Odt 0.125 Mg Tab.Rapdis) 0.25 mg PO DAILY@1430 [facility] Dicyclomine HCl (Dicyclomine Hcl 10 Mg Capsule) 10 mg PO Q4H PRN PRN Reason: abdominal cramping Last Admin: 12/01/24 20:11 Dose: 10 mg Docusate Sodium (Docusate Sodium 100 Mg Capsule) 100 mg PO BID [facility] Last Admin: 12/06/24 08:41 Dose: 100 mg Duloxetine HCl (Duloxetine Hcl 60 Mg Capsule.Dr) 60 mg PO DAILY [facility] Last Admin: 12/06/24 08:42 Dose: 60 mg Fluticasone/Vilanterol (Fluticasone/Vilanterol 100/25 Blst.W.Dev) 1 puff INHALE RDAILY [facility] Last Admin: 12/06/24 08:45 Dose: 1 puff Gabapentin (Gabapentin 100 Mg Capsule) 100 mg PO TID [facility] Last Admin: 12/06/24 08:43 Dose: 100 mg Glipizide (Glipizide Xl 2.5 Mg Tab.Er.24) 2.5 mg PO DAILY [facility] Last Admin: 12/06/24 08:42 Dose: 2.5 mg Lisinopril (Lisinopril 2.5 Mg Tablet) 2.5 mg PO DAILY [facility]; Protocol Last Admin: 12/06/24 08:43 Dose: 2.5 mg Magnesium Hydroxide (Milk Of Magnesia 30 Ml Oral.Susp) 30 ml PO DAILY PRN PRN Reason: Constipation Last Admin: 11/04/24 16:49 Dose: 30 ml Mirtazapine (Mirtazapine 30 Mg Tablet) 30 mg PO BEDTIME [facility] Last Admin: 12/05/24 20:08 Dose: 30 mg Omeprazole (Omeprazole 20 Mg Capsule.Dr) 20 mg PO BID@0630,1630 [facility] Last Admin: 12/06/24 05:38 Dose: 20 mg Ondansetron HCl (Ondansetron Odt 4 Mg Tab.Rapdis) 4 mg TRANSLINGU Q4H PRN PRN Reason: Nausea and Vomiting Last Admin: 12/02/24 09:29 Dose: 4 mg Polyethylene Glycol (Polyethylene Glycol 3350 17 Gm Powd.Pack) 17 gm PO BID [facility] Last Admin: 12/06/24 08:42 Dose: 17 gm Pramipexole Dihydrochloride (Pramipexole Di-Hcl 0.125 Mg Tablet) 0.125 mg PO DAILY [facility] Last Admin: 12/06/24 08:42 Dose: 0.125 mg Pyridoxine HCl (Pyridoxine Hcl (Vitamin B6) 50 Mg Tablet) 50 mg PO DAILY [facility] Last Admin: 12/06/24 08:42 Dose: 50 mg Ropinirole HCl (Ropinirole Hcl 2 Mg Tablet) 2 mg PO DAILY@1700 [facility] Last Admin: 12/05/24 17:12 Dose: 2 mg Senna (Sennosides 8.6 Mg Tablet) 17.2 mg PO BEDTIME [facility] On Hold: 11/06/24 16:27 Last Admin: 11/05/24 19:39 Dose: 17.2 mg Simethicone (Simethicone 80 Mg Tab.Chew) 80 mg PO QIDWMHS [facility] Last Admin: 12/06/24 08:42 Dose: 80 mg Sitagliptin Phosphate (Sitagliptin Phosphate 25 Mg Tablet) 25 mg PO DAILY [facility] Last Admin: 12/06/24 08:43 Dose: 25 mg Trazodone HCl (Trazodone Hcl 50 Mg Tablet) 50 mg PO BEDTIME MRX1 PRN PRN Reason: Insomnia Last Admin: 12/04/24 20:37 Dose: 50 mg Allergies Allergies Allergy/AdvReac Type Severity Reaction Status Date / Time ampicillin Allergy Rash Verified 10/20/24 19:28 morphine Allergy Rash Verified 10/20/24 19:28 Penicillins Allergy Rash Verified 10/20/24 19:28 pork derived (porcine) Allergy Vomiting Verified 11/10/24 17:49 Assessment & Plan Assessment & Plan (1) MDD (major depressive disorder), recurrent episode, moderate: Status: Acute Code(s): F33.1 - Major depressive disorder, recurrent, moderate (2) 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 Barreto is a 78 year-old woman with hx of MDD who was assessed by N at request of her son who called 911 after pt had reported suicidal ideation with plan to OD. In the ED, pt adamantly denied suicidal ideation but reports feeling increasingly more depressed due to involuntary, ongoing movement of lower extremities. She attributes her depressed mood and increase anxious mood to RLS. She has also been treated as tardive akathisia, note that she was previously prescribed abilify. It is noted that she may have iron deficiency due to normocytic anemia which can exacerbate RLS. It is unclear which medications for hyperkinetic movements of the legs are actually helpful and furthermore it is not easily to differentiate whether it is tardive akathisia or RLS. She has been on psychotropic medications that are known to cause akathisia such as abilify. She reports subjective sense of restlessness. Involuntary movement seems to be throughout the day. We will have to do trial of medications that target akathisia such as propanolol and ativan versus medications such as pramipexol for RLS (note that in RLS there is an initial relief with dopamine agonist but can make it worse over time). In addition, will try iron deficiency as it is an underlying cause and exacerbating factor in RLS. PLAN 11/14 continue tx. will monitor before making substantial changes every day. 11/15 continue tx. pt somatically preoccupied. 11/16: Continue current management and treatment plan. 11/17: continue current management and treatment plan. 11/18 start buspar 10mg po TID for SHEILA. continue all other meds. 11/19 increase buspar 20mg po TID 11/20 appears calmer, less somatically preoccupied. continue current medications. 11/21 sodium stable. continues to present as less dysphoric, calmer. reports of dizziness (VS not hotn nor orthostatic), ?vertigo, will try low dose of meclizine otherwise will consult hospitalist for further management. 8.2- pt more focused on gi issues- and anxiety/forgetfulness- continue to monitor somatic complaints- dc qid poc 11/25 will lowered ropinirole as it may increasing anxiety, noted that buspar was lowered, do not think this medication was causing fogginess as pt appeared much calmer since we added buspar. She was started on low dose clonazepam. 11/26 continue tx. received one time dose xanax, but reported feeling overly sedated (although did not appear sedated) 11/27 somatically p8/9: Continue current regimen and plansreoccupied, no change in medications. 11/29 continue tx. 11/30: Continue current regimen and plans 12/01: Continue current plans and regimen 12/02 increase buspar 20mg po TID. 12/03: reports depression not improving, c/o feeling low energy and motivation, saying she needs a package pick up. start wellbutrin XL 150 daily tomorrow for depression. also c/o anxiety-provoking and nocturnally loud peer. schedule klonopin 0.25 QHS for insomnia. otherwise continue current mgmt. awaiting placement. 12/04: slept well last night, started wellbutrin this morning without incident. continue current mgmt. will be discharging to [facility]. 12/05: slept well. c/o anxiety at 3-330 in the afternoon. pt to ask for klonopin PRN at 2-230. trend anxiety, T/C DC of wellbutrin if anxiety seems reliably increased since starting it. dispo next week likely. 12/06: anxious. schedule klonopin 0.25 mg Qdaily at 1430 per pt request. otherwise continue current mgmt. Reason for continued inpatient stay Substantial Risk for: inability to function Time Spent With Patient Time: Total time managing care of this patient today ____ minutes.
[2024-12-06] MEDS: clonazePAM ODT 0.125 MG TAB.RAPDIS 0.25 MG PO (14:34)
[2024-12-06 20:00] VITALS: BP 127/68; PULSE 82; RESP 16; TEMP 36.2; O2SAT 98
[2024-12-07 06:34] LABS: Glucose, Whole Blood 194 mg/dL (60-115)
[2024-12-07 08:12] VITALS: BP 132/66; PULSE 89; RESP 16; TEMP 36.3; O2SAT 97
[2024-12-07] MEDS: buPROPion HCl XL 150 MG TAB.ER.24H PO (08:16)
[2024-12-07] MEDS: Fluticasone/Vilanterol 100/25 BLST.W.DEV 1 PUFF INHALE (08:23)
--- NOTE | 2024-12-07 09:59 | HO.PSYCHPN ---
Subjective Subjective Date of Service: 12/07/24 Reason For Visit: SI with plan to OD on medications, increased anxie Interim History: c/o insomnia, dizziness. discussed wellbutrin activation, need to give it a few more days. also c/o no change in mood or neurovegetative Sx of depression. same plan as for insomnia. per staff, no issues. Mental Status Exam Mental Status Exam Narrative: She is alert, pleasant and cooperative. Speech is normal. Moderate eye contact. Affect is appropriate and contained. Moderate anxiety and depression present. No acute signs of psychosis. Cognitively impaired. Judgment is impaired Diagnostics Vital Signs (24Hr): Vital Signs - 24 hr 12/06/24 20:00 12/07/24 08:12 Temperature 97.1 F 97.3 F Pulse Rate 82 89 Respiratory Rate 16 16 Blood Pressure 127/68 132/66 Pulse Oximetry 98 97 Oxygen Delivery Method Room Air Room Air BMI result Body Mass Index 22.9 Labs 11/02/24 20:14 11/20/24 11:02 Labs: Laboratory Results - last 48 hr 12/06/24 12/07/24 05:54 06:19 POC Glucose 206 H 194 H Imaging Radiology Impressions: ITS Impressions Hip/Pelvis X-Ray 11/05/24 11:00 IMPRESSION: Unremarkable examination of the left hip. Electronically signed by: Sam Saini MD 11/05/2024 11:13 AM EDT RP KUB X-Ray 11/06/24 09:20 IMPRESSION: Large amount of stool throughout the colon. Electronically signed by: Sam Saini MD 11/06/2024 09:34 AM EDT RP Head CT 11/08/24 14:58 IMPRESSION: Left frontal soft tissue swelling. No acute intracranial abnormality. Electronically signed by: Sam Saini MD 11/08/2024 03:18 PM EDT RP Medications Medications Current Medications Acetaminophen (Acetaminophen 325 Mg Tablet) 650 mg PO Q6H PRN PRN Reason: Headache/Pain, Scale 1-10 Last Admin: 12/01/24 14:45 Dose: 650 mg Al Hydroxide/Mg Hydroxide (Magnesium Hydrox/Alum Hydrox 30 Ml Oral.Susp) 30 ml PO Q6H PRN PRN Reason: Heartburn/Nausea Last Admin: 12/04/24 14:04 Dose: 30 ml Albuterol Sulfate (Albuterol Sulfate 90 Mcg 8 Gm Inhaler) 2 puff INHALE Q4H PRN PRN Reason: Shortness Of Breath Or Wheezin Amlodipine Besylate (Amlodipine Besylate 2.5 Mg Tablet) 2.5 mg PO DAILY [facility]; Protocol Last Admin: 12/07/24 08:17 Dose: 2.5 mg Atorvastatin Calcium (Atorvastatin Calcium 20 Mg Tablet) 20 mg PO DAILY [facility] Last Admin: 12/07/24 08:19 Dose: 20 mg Bisacodyl (Bisacodyl 10 Mg Supp.Rect) 10 mg [place] BEDTIME PRN PRN Reason: Constipation Last Admin: 11/04/24 20:37 Dose: 10 mg Bupropion HCl (Bupropion Hcl Xl 150 Mg Tab.Er.24h) 150 mg PO DAILY [facility] Last Admin: 12/07/24 08:16 Dose: 150 mg Buspirone HCl (Buspirone Hcl 10 Mg Tablet) 20 mg PO TID [facility] Last Admin: 12/07/24 08:15 Dose: 20 mg Calcium Carbonate (Calcium Carbonate 750 Mg Tab.Chew) 750 mg PO Q4H PRN PRN Reason: Heartburn Last Admin: 11/30/24 21:34 Dose: 750 mg Clonazepam (Clonazepam 0.5 Mg Tablet) 0.25 mg PO BEDTIME [facility] Last Admin: 12/06/24 20:02 Dose: 0.25 mg Clonazepam (Clonazepam Odt 0.125 Mg Tab.Rapdis) 0.25 mg PO DAILY@1430 [facility] Last Admin: 12/06/24 14:34 Dose: 0.25 mg Dicyclomine HCl (Dicyclomine Hcl 10 Mg Capsule) 10 mg PO Q4H PRN PRN Reason: abdominal cramping Last Admin: 12/01/24 20:11 Dose: 10 mg Docusate Sodium (Docusate Sodium 100 Mg Capsule) 100 mg PO BID [facility] Last Admin: 12/07/24 08:17 Dose: 100 mg Duloxetine HCl (Duloxetine Hcl 60 Mg Capsule.Dr) 60 mg PO DAILY [facility] Last Admin: 12/07/24 08:20 Dose: 60 mg Fluticasone/Vilanterol (Fluticasone/Vilanterol 100/25 Blst.W.Dev) 1 puff INHALE RDAILY [facility] Last Admin: 12/07/24 08:23 Dose: 1 puff Gabapentin (Gabapentin 100 Mg Capsule) 100 mg PO TID [facility] Last Admin: 12/07/24 08:16 Dose: 100 mg Glipizide (Glipizide Xl 2.5 Mg Tab.Er.24) 2.5 mg PO DAILY [facility] Last Admin: 12/07/24 08:17 Dose: 2.5 mg Lisinopril (Lisinopril 2.5 Mg Tablet) 2.5 mg PO DAILY [facility]; Protocol Last Admin: 12/07/24 08:16 Dose: 2.5 mg Magnesium Hydroxide (Milk Of Magnesia 30 Ml Oral.Susp) 30 ml PO DAILY PRN PRN Reason: Constipation Last Admin: 11/04/24 16:49 Dose: 30 ml Mirtazapine (Mirtazapine 30 Mg Tablet) 30 mg PO BEDTIME [facility] Last Admin: 12/06/24 23:27 Dose: 30 mg Omeprazole (Omeprazole 20 Mg Capsule.Dr) 20 mg PO BID@0630,1630 [facility] Last Admin: 12/07/24 06:14 Dose: 20 mg Ondansetron HCl (Ondansetron Odt 4 Mg Tab.Rapdis) 4 mg TRANSLINGU Q4H PRN PRN Reason: Nausea and Vomiting Last Admin: 12/02/24 09:29 Dose: 4 mg Polyethylene Glycol (Polyethylene Glycol 3350 17 Gm Powd.Pack) 17 gm PO BID [facility] Last Admin: 12/07/24 08:22 Dose: Not Given Pramipexole Dihydrochloride (Pramipexole Di-Hcl 0.125 Mg Tablet) 0.125 mg PO DAILY [facility] Last Admin: 12/07/24 08:16 Dose: 0.125 mg Pyridoxine HCl (Pyridoxine Hcl (Vitamin B6) 50 Mg Tablet) 50 mg PO DAILY [facility] Last Admin: 12/07/24 08:17 Dose: 50 mg Ropinirole HCl (Ropinirole Hcl 2 Mg Tablet) 2 mg PO DAILY@1700 [facility] Last Admin: 12/06/24 17:20 Dose: 2 mg Senna (Sennosides 8.6 Mg Tablet) 17.2 mg PO BEDTIME [facility] On Hold: 11/06/24 16:27 Last Admin: 11/05/24 19:39 Dose: 17.2 mg Simethicone (Simethicone 80 Mg Tab.Chew) 80 mg PO QIDWMHS [facility] Last Admin: 12/07/24 08:16 Dose: 80 mg Sitagliptin Phosphate (Sitagliptin Phosphate 25 Mg Tablet) 25 mg PO DAILY [facility] Last Admin: 12/07/24 08:18 Dose: 25 mg Trazodone HCl (Trazodone Hcl 50 Mg Tablet) 50 mg PO BEDTIME MRX1 PRN PRN Reason: Insomnia Last Admin: 12/04/24 20:37 Dose: 50 mg Allergies Allergies Allergy/AdvReac Type Severity Reaction Status Date / Time ampicillin Allergy Rash Verified 10/20/24 19:28 morphine Allergy Rash Verified 10/20/24 19:28 Penicillins Allergy Rash Verified 10/20/24 19:28 pork derived (porcine) Allergy Vomiting Verified 11/10/24 17:49 Assessment & Plan Assessment & Plan (1) MDD (major depressive disorder), recurrent episode, moderate: Status: Acute Code(s): F33.1 - Major depressive disorder, recurrent, moderate (2) 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 Barreto is a 78 year-old woman with hx of MDD who was assessed by N at request of her son who called 911 after pt had reported suicidal ideation with plan to OD. In the ED, pt adamantly denied suicidal ideation but reports feeling increasingly more depressed due to involuntary, ongoing movement of lower extremities. She attributes her depressed mood and increase anxious mood to RLS. She has also been treated as tardive akathisia, note that she was previously prescribed abilify. It is noted that she may have iron deficiency due to normocytic anemia which can exacerbate RLS. It is unclear which medications for hyperkinetic movements of the legs are actually helpful and furthermore it is not easily to differentiate whether it is tardive akathisia or RLS. She has been on psychotropic medications that are known to cause akathisia such as abilify. She reports subjective sense of restlessness. Involuntary movement seems to be throughout the day. We will have to do trial of medications that target akathisia such as propanolol and ativan versus medications such as pramipexol for RLS (note that in RLS there is an initial relief with dopamine agonist but can make it worse over time). In addition, will try iron deficiency as it is an underlying cause and exacerbating factor in RLS. PLAN 11/14 continue tx. will monitor before making substantial changes every day. 11/15 continue tx. pt somatically preoccupied. 11/16: Continue current management and treatment plan. 11/17: continue current management and treatment plan. 11/18 start buspar 10mg po TID for SHEILA. continue all other meds. 11/19 increase buspar 20mg po TID 11/20 appears calmer, less somatically preoccupied. continue current medications. 11/21 sodium stable. continues to present as less dysphoric, calmer. reports of dizziness (VS not hotn nor orthostatic), ?vertigo, will try low dose of meclizine otherwise will consult hospitalist for further management. 8.2- pt more focused on gi issues- and anxiety/forgetfulness- continue to monitor somatic complaints- dc qid poc 11/25 will lowered ropinirole as it may increasing anxiety, noted that buspar was lowered, do not think this medication was causing fogginess as pt appeared much calmer since we added buspar. She was started on low dose clonazepam. 11/26 continue tx. received one time dose xanax, but reported feeling overly sedated (although did not appear sedated) 11/27 somatically p8/9: Continue current regimen and plansreoccupied, no change in medications. 11/29 continue tx. 11/30: Continue current regimen and plans 12/01: Continue current plans and regimen 12/02 increase buspar 20mg po TID. 12/03: reports depression not improving, c/o feeling low energy and motivation, saying she needs a turkey picker. start wellbutrin XL 150 daily tomorrow for depression. also c/o anxiety-provoking and nocturnally loud peer. schedule klonopin 0.25 QHS for insomnia. otherwise continue current mgmt. awaiting placement. 12/04: slept well last night, started wellbutrin this morning without incident. continue current mgmt. will be discharging to [facility]. 12/05: slept well. c/o anxiety at 3-330 in the afternoon. pt to ask for klonopin PRN at 2-230. trend anxiety, T/C DC of wellbutrin if anxiety seems reliably increased since starting it. dispo next week likely. 12/06: anxious. schedule klonopin 0.25 mg Qdaily at 1430 per pt request. otherwise continue current mgmt. 12/07: anxious and depressed. c/o insomnia. will give wellbutrin a few more days to see if insomnia subsides and mood improves. per staf, stable and uneventful presentation. Reason for continued inpatient stay Substantial Risk for: inability to function Time Spent With Patient Time: Total time managing care of this patient today ____ minutes.
[2024-12-07] MEDS: clonazePAM ODT 0.125 MG TAB.RAPDIS 0.25 MG PO (14:42)
[2024-12-07] MEDS: Magnesium Hydrox/Alum Hydrox 30 ML ORAL.SUSP PO (15:51)
[2024-12-07 20:00] VITALS: BP 131/74; RESP 16; TEMP 36.5; O2SAT 98
[2024-12-08 06:55] LABS: Glucose, Whole Blood 163 mg/dL (60-115)
[2024-12-08 08:34] VITALS: BP 133/63; PULSE 87; RESP 14; TEMP 36.3; O2SAT 98
[2024-12-08] MEDS: Fluticasone/Vilanterol 100/25 BLST.W.DEV 1 PUFF INHALE (08:36)
[2024-12-08] MEDS: buPROPion HCl XL 150 MG TAB.ER.24H PO (08:36)
--- NOTE | 2024-12-08 13:27 | P.PNPSI_ITS ---
Subjective Subjective Date of Service: 12/08/24 Reason For Visit: SI with plan to OD on medications, increased anxie Interim History: in bed, calm, cooperative. c/o depression. agreeable to increase wellbutrin to 300 mg starting tomorrow. per staff, anxious, bored. somatically preoccupied. Mental Status Exam Mental Status Exam Narrative: She is alert, pleasant and cooperative. Speech is normal. Moderate eye contact. Affect is appropriate and contained. Moderate anxiety and depression present. No acute signs of psychosis. Cognitively impaired. Judgment is impaired Diagnostics Vital Signs (24Hr): Vital Signs - 24 hr 12/07/24 20:00 12/08/24 08:34 Temperature 97.7 F 97.3 F Pulse Rate 87 Respiratory Rate 16 14 Blood Pressure 131/74 133/63 Pulse Oximetry 98 98 Oxygen Delivery Method Room Air Room Air BMI result Body Mass Index 22.9 Labs 11/02/24 20:14 11/20/24 11:02 Labs: Laboratory Results - last 48 hr 12/07/24 12/08/24 06:19 06:31 POC Glucose 194 H 163 H Imaging Radiology Impressions: ITS Impressions Hip/Pelvis X-Ray 11/05/24 11:00 IMPRESSION: Unremarkable examination of the left hip. Electronically signed by: Sam Saini MD 11/05/2024 11:13 AM EDT RP KUB X-Ray 11/06/24 09:20 IMPRESSION: Large amount of stool throughout the colon. Electronically signed by: Sam Saini MD 11/06/2024 09:34 AM EDT RP Head CT 11/08/24 14:58 IMPRESSION: Left frontal soft tissue swelling. No acute intracranial abnormality. Electronically signed by: Sam Saini MD 11/08/2024 03:18 PM EDT RP Medications Medications Current Medications Acetaminophen (Acetaminophen 325 Mg Tablet) 650 mg PO Q6H PRN PRN Reason: Headache/Pain, Scale 1-10 Last Admin: 12/08/24 06:50 Dose: 650 mg Al Hydroxide/Mg Hydroxide (Magnesium Hydrox/Alum Hydrox 30 Ml Oral.Susp) 30 ml PO Q6H PRN PRN Reason: Heartburn/Nausea Last Admin: 12/07/24 15:51 Dose: 30 ml Albuterol Sulfate (Albuterol Sulfate 90 Mcg 8 Gm Inhaler) 2 puff INHALE Q4H PRN PRN Reason: Shortness Of Breath Or Wheezin Amlodipine Besylate (Amlodipine Besylate 2.5 Mg Tablet) 2.5 mg PO DAILY [facility]; Protocol Last Admin: 12/08/24 08:37 Dose: 2.5 mg Atorvastatin Calcium (Atorvastatin Calcium 20 Mg Tablet) 20 mg PO DAILY [facility] Last Admin: 12/08/24 08:38 Dose: 20 mg Bisacodyl (Bisacodyl 10 Mg Supp.Rect) 10 mg IA BEDTIME PRN PRN Reason: Constipation Last Admin: 11/04/24 20:37 Dose: 10 mg Bupropion HCl (Bupropion Hcl Xl 300 Mg Tab.Er.24h) 300 mg PO DAILY [facility] Buspirone HCl (Buspirone Hcl 10 Mg Tablet) 20 mg PO TID [facility] Last Admin: 12/08/24 08:38 Dose: 20 mg Calcium Carbonate (Calcium Carbonate 750 Mg Tab.Chew) 750 mg PO Q4H PRN PRN Reason: Heartburn Last Admin: 11/30/24 21:34 Dose: 750 mg Clonazepam (Clonazepam 0.5 Mg Tablet) 0.25 mg PO BEDTIME [facility] Last Admin: 12/07/24 19:59 Dose: 0.25 mg Clonazepam (Clonazepam Odt 0.125 Mg Tab.Rapdis) 0.25 mg PO DAILY@1430 [facility] Last Admin: 12/07/24 14:42 Dose: 0.25 mg Dicyclomine HCl (Dicyclomine Hcl 10 Mg Capsule) 10 mg PO Q4H PRN PRN Reason: abdominal cramping Last Admin: 12/01/24 20:11 Dose: 10 mg Docusate Sodium (Docusate Sodium 100 Mg Capsule) 100 mg PO BID [facility] Last Admin: 12/08/24 08:37 Dose: 100 mg Duloxetine HCl (Duloxetine Hcl 60 Mg Capsule.Dr) 60 mg PO DAILY [facility] Last Admin: 12/08/24 08:38 Dose: 60 mg Fluticasone/Vilanterol (Fluticasone/Vilanterol 100/25 Blst.W.Dev) 1 puff INHALE RDAILY [facility] Last Admin: 12/08/24 08:36 Dose: 1 puff Gabapentin (Gabapentin 100 Mg Capsule) 100 mg PO TID [facility] Last Admin: 12/08/24 08:38 Dose: 100 mg Glipizide (Glipizide Xl 2.5 Mg Tab.Er.24) 2.5 mg PO DAILY [facility] Last Admin: 12/08/24 08:37 Dose: 2.5 mg Lisinopril (Lisinopril 2.5 Mg Tablet) 2.5 mg PO DAILY [facility]; Protocol Last Admin: 12/08/24 08:37 Dose: 2.5 mg Magnesium Hydroxide (Milk Of Magnesia 30 Ml Oral.Susp) 30 ml PO DAILY PRN PRN Reason: Constipation Last Admin: 11/04/24 16:49 Dose: 30 ml Mirtazapine (Mirtazapine 30 Mg Tablet) 30 mg PO BEDTIME [facility] Last Admin: 12/07/24 19:58 Dose: 30 mg Omeprazole (Omeprazole 20 Mg Capsule.Dr) 20 mg PO BID@0630,1630 [facility] Last Admin: 12/08/24 06:33 Dose: 20 mg Ondansetron HCl (Ondansetron Odt 4 Mg Tab.Rapdis) 4 mg TRANSLINGU Q4H PRN PRN Reason: Nausea and Vomiting Last Admin: 12/08/24 08:19 Dose: 4 mg Polyethylene Glycol (Polyethylene Glycol 3350 17 Gm Powd.Pack) 17 gm PO BID [facility] Last Admin: 12/08/24 11:21 Dose: Not Given Pramipexole Dihydrochloride (Pramipexole Di-Hcl 0.125 Mg Tablet) 0.125 mg PO DAILY [facility] Last Admin: 12/08/24 08:37 Dose: 0.125 mg Pyridoxine HCl (Pyridoxine Hcl (Vitamin B6) 50 Mg Tablet) 50 mg PO DAILY [facility] Last Admin: 12/08/24 08:38 Dose: 50 mg Ropinirole HCl (Ropinirole Hcl 2 Mg Tablet) 2 mg PO DAILY@1700 [facility] Last Admin: 12/07/24 16:23 Dose: 2 mg Senna (Sennosides 8.6 Mg Tablet) 17.2 mg PO BEDTIME [facility] On Hold: 11/06/24 16:27 Last Admin: 11/05/24 19:39 Dose: 17.2 mg Simethicone (Simethicone 80 Mg Tab.Chew) 80 mg PO QIDWMHS [facility] Last Admin: 12/08/24 12:01 Dose: 80 mg Sitagliptin Phosphate (Sitagliptin Phosphate 25 Mg Tablet) 25 mg PO DAILY [facility] Last Admin: 12/08/24 08:38 Dose: 25 mg Trazodone HCl (Trazodone Hcl 50 Mg Tablet) 50 mg PO BEDTIME MRX1 PRN PRN Reason: Insomnia Last Admin: 12/04/24 20:37 Dose: 50 mg Allergies Allergies Allergy/AdvReac Type Severity Reaction Status Date / Time ampicillin Allergy Rash Verified 10/20/24 19:28 morphine Allergy Rash Verified 10/20/24 19:28 Penicillins Allergy Rash Verified 10/20/24 19:28 pork derived (porcine) Allergy Vomiting Verified 11/10/24 17:49 Assessment & Plan Assessment & Plan (1) MDD (major depressive disorder), recurrent episode, moderate: Status: Acute Code(s): F33.1 - Major depressive disorder, recurrent, moderate (2) 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 Barreto is a 78 year-old woman with hx of MDD who was assessed by N at request of her son who called 911 after pt had reported suicidal ideation with plan to OD. In the ED, pt adamantly denied suicidal ideation but reports feeling increasingly more depressed due to involuntary, ongoing movement of lower extremities. She attributes her depressed mood and increase anxious mood to RLS. She has also been treated as tardive akathisia, note that she was previously prescribed abilify. It is noted that she may have iron deficiency due to normocytic anemia which can exacerbate RLS. It is unclear which medications for hyperkinetic movements of the legs are actually helpful and furthermore it is not easily to differentiate whether it is tardive akathisia or RLS. She has been on psychotropic medications that are known to cause akathisia such as abilify. She reports subjective sense of restlessness. Involuntary movement seems to be throughout the day. We will have to do trial of medications that target akathisia such as propanolol and ativan versus medications such as pramipexol for RLS (note that in RLS there is an initial relief with dopamine agonist but can make it worse over time). In addition, will try iron deficiency as it is an underlying cause and exacerbating factor in RLS. PLAN 11/14 continue tx. will monitor before making substantial changes every day. 11/15 continue tx. pt somatically preoccupied. 11/16: Continue current management and treatment plan. 11/17: continue current management and treatment plan. 11/18 start buspar 10mg po TID for SHEILA. continue all other meds. 11/19 increase buspar 20mg po TID 11/20 appears calmer, less somatically preoccupied. continue current medications. 11/21 sodium stable. continues to present as less dysphoric, calmer. reports of dizziness (VS not hotn nor orthostatic), ?vertigo, will try low dose of meclizine otherwise will consult hospitalist for further management. 8.2- pt more focused on gi issues- and anxiety/forgetfulness- continue to monitor somatic complaints- dc qid poc 11/25 will lowered ropinirole as it may increasing anxiety, noted that buspar was lowered, do not think this medication was causing fogginess as pt appeared much calmer since we added buspar. She was started on low dose clonazepam. 11/26 continue tx. received one time dose xanax, but reported feeling overly sedated (although did not appear sedated) 11/27 somatically p8/: Continue current regimen and plansreoccupied, no change in medications. 11/29 continue tx. 11/30: Continue current regimen and plans 12/01: Continue current plans and regimen 12/02 increase buspar 20mg po TID. 12/03: reports depression not improving, c/o feeling low energy and motivation, saying she needs a brick picker. start wellbutrin XL 150 daily tomorrow for depression. also c/o anxiety-provoking and nocturnally loud peer. schedule klonopin 0.25 QHS for insomnia. otherwise continue current mgmt. awaiting placement. 12/04: slept well last night, started wellbutrin this morning without incident. continue current mgmt. will be discharging to [facility]. 12/05: slept well. c/o anxiety at 3-330 in the afternoon. pt to ask for klonopin PRN at 2-230. trend anxiety, T/C DC of wellbutrin if anxiety seems reliably increased since starting it. dispo next week likely. 12/06: anxious. schedule klonopin 0.25 mg Qdaily at 1430 per pt request. otherwise continue current mgmt. 12/07: anxious and depressed. c/o insomnia. will give wellbutrin a few more days to see if insomnia subsides and mood improves. per staf, stable and uneventful presentation. 12/08: depressed. agreeable to increase wellbutrin to 300 mg as of tomorrow. otherwise continue current mgmt. sleeping well. Reason for continued inpatient stay Substantial Risk for: inability to function Time Spent With Patient Time: Total time managing care of this patient today ____ minutes.
[2024-12-08] MEDS: clonazePAM ODT 0.125 MG TAB.RAPDIS 0.25 MG PO (14:48)
[2024-12-08 20:00] VITALS: BP 130/74; PULSE 92; RESP 18; TEMP 36.4; O2SAT 98
[2024-12-09 06:34] LABS: Glucose, Whole Blood 165 mg/dL (60-115)
[2024-12-09 08:00] VITALS: BP 101/70; PULSE 95; RESP 18; TEMP 36.8; O2SAT 97
[2024-12-09] MEDS: Fluticasone/Vilanterol 100/25 BLST.W.DEV 1 PUFF INHALE (09:03)
[2024-12-09] MEDS: buPROPion HCl XL 300 MG TAB.ER.24H PO (09:08)
--- NOTE | 2024-12-09 11:04 | HO.PSYCHPN ---
Subjective Subjective Date of Service: 12/09/24 Reason For Visit: SI with plan to OD on medications, increased anxie Interim History: c/o URI Sx, asking for something for cough and phlegm. c/o poor appetite. per staff, zofran PRN for nausea. eves flat and fatigued. somatically pre-occupied. slept 8 hours. Mental Status Exam Mental Status Exam Narrative: She is alert, pleasant and cooperative. Speech is normal. Moderate eye contact. Affect is appropriate and contained. Moderate anxiety and depression present. No acute signs of psychosis. Cognitively impaired. Judgment is impaired Diagnostics Vital Signs (24Hr): Vital Signs - 24 hr 12/08/24 20:00 12/09/24 08:00 Temperature 97.5 F 98.3 F Pulse Rate 92 95 Respiratory Rate 18 18 Blood Pressure 130/74 101/70 Pulse Oximetry 98 97 Oxygen Delivery Method Room Air Room Air BMI result Body Mass Index 22.9 Labs 11/02/24 20:14 11/20/24 11:02 Labs: Laboratory Results - last 48 hr 12/08/24 12/09/24 06:31 06:26 POC Glucose 163 H 165 H Imaging Radiology Impressions: ITS Impressions Hip/Pelvis X-Ray 11/05/24 11:00 IMPRESSION: Unremarkable examination of the left hip. Electronically signed by: Sam Saini MD 11/05/2024 11:13 AM EDT RP KUB X-Ray 11/06/24 09:20 IMPRESSION: Large amount of stool throughout the colon. Electronically signed by: Sam Saini MD 11/06/2024 09:34 AM EDT RP Head CT 11/08/24 14:58 IMPRESSION: Left frontal soft tissue swelling. No acute intracranial abnormality. Electronically signed by: Sam Saini MD 11/08/2024 03:18 PM EDT RP Medications Medications Current Medications Acetaminophen (Acetaminophen 325 Mg Tablet) 650 mg PO Q6H PRN PRN Reason: Headache/Pain, Scale 1-10 Last Admin: 12/08/24 20:02 Dose: 650 mg Al Hydroxide/Mg Hydroxide (Magnesium Hydrox/Alum Hydrox 30 Ml Oral.Susp) 30 ml PO Q6H PRN PRN Reason: Heartburn/Nausea Last Admin: 12/07/24 15:51 Dose: 30 ml Albuterol Sulfate (Albuterol Sulfate 90 Mcg 8 Gm Inhaler) 2 puff INHALE Q4H PRN PRN Reason: Shortness Of Breath Or Wheezin Amlodipine Besylate (Amlodipine Besylate 2.5 Mg Tablet) 2.5 mg PO DAILY [facility]; Protocol Last Admin: 12/09/24 09:09 Dose: 2.5 mg Atorvastatin Calcium (Atorvastatin Calcium 20 Mg Tablet) 20 mg PO DAILY [facility] Last Admin: 12/09/24 09:03 Dose: 20 mg Bisacodyl (Bisacodyl 10 Mg Supp.Rect) 10 mg SD BEDTIME PRN PRN Reason: Constipation Last Admin: 11/04/24 20:37 Dose: 10 mg Bupropion HCl (Bupropion Hcl Xl 300 Mg Tab.Er.24h) 300 mg PO DAILY [facility] Last Admin: 12/09/24 09:08 Dose: 300 mg Buspirone HCl (Buspirone Hcl 10 Mg Tablet) 20 mg PO TID [facility] Last Admin: 12/09/24 09:08 Dose: 20 mg Calcium Carbonate (Calcium Carbonate 750 Mg Tab.Chew) 750 mg PO Q4H PRN PRN Reason: Heartburn Last Admin: 11/30/24 21:34 Dose: 750 mg Clonazepam (Clonazepam 0.5 Mg Tablet) 0.25 mg PO BEDTIME [facility] Last Admin: 12/08/24 20:01 Dose: 0.25 mg Clonazepam (Clonazepam Odt 0.125 Mg Tab.Rapdis) 0.25 mg PO DAILY@1430 [facility] Last Admin: 12/08/24 14:48 Dose: 0.25 mg Clonazepam (Clonazepam 0.5 Mg Tablet) 0.25 mg PO DAILY PRN PRN Reason: breakthrough anxiety Last Admin: 12/08/24 17:58 Dose: 0.25 mg Dicyclomine HCl (Dicyclomine Hcl 10 Mg Capsule) 10 mg PO Q4H PRN PRN Reason: abdominal cramping Last Admin: 12/01/24 20:11 Dose: 10 mg Docusate Sodium (Docusate Sodium 100 Mg Capsule) 100 mg PO BID [facility] Last Admin: 12/09/24 09:03 Dose: 100 mg Duloxetine HCl (Duloxetine Hcl 60 Mg Capsule.Dr) 60 mg PO DAILY [facility] Last Admin: 12/09/24 09:18 Dose: 60 mg Fluticasone/Vilanterol (Fluticasone/Vilanterol 100/25 Blst.W.Dev) 1 puff INHALE RDAILY [facility] Last Admin: 12/09/24 09:03 Dose: 1 puff Gabapentin (Gabapentin 100 Mg Capsule) 100 mg PO TID [facility] Last Admin: 12/09/24 09:03 Dose: 100 mg Glipizide (Glipizide Xl 2.5 Mg Tab.Er.24) 2.5 mg PO DAILY [facility] Last Admin: 12/09/24 09:03 Dose: 2.5 mg Guaifenesin (Guaifenesin La 600 Mg Tab.Er.12h) 1,200 mg PO BID PRN PRN Reason: Cough Lisinopril (Lisinopril 2.5 Mg Tablet) 2.5 mg PO DAILY [facility]; Protocol Last Admin: 12/09/24 09:03 Dose: 2.5 mg Magnesium Hydroxide (Milk Of Magnesia 30 Ml Oral.Susp) 30 ml PO DAILY PRN PRN Reason: Constipation Last Admin: 11/04/24 16:49 Dose: 30 ml Mirtazapine (Mirtazapine 30 Mg Tablet) 30 mg PO BEDTIME [facility] Last Admin: 12/08/24 20:01 Dose: 30 mg Omeprazole (Omeprazole 20 Mg Capsule.Dr) 20 mg PO BID@0630,1630 [facility] Last Admin: 12/09/24 06:09 Dose: 20 mg Ondansetron HCl (Ondansetron Odt 4 Mg Tab.Rapdis) 4 mg TRANSLINGU Q4H PRN PRN Reason: Nausea and Vomiting Last Admin: 12/08/24 17:01 Dose: 4 mg Polyethylene Glycol (Polyethylene Glycol 3350 17 Gm Powd.Pack) 17 gm PO BID [facility] Last Admin: 12/09/24 09:02 Dose: 17 gm Pramipexole Dihydrochloride (Pramipexole Di-Hcl 0.125 Mg Tablet) 0.125 mg PO DAILY [facility] Last Admin: 12/09/24 09:03 Dose: 0.125 mg Pyridoxine HCl (Pyridoxine Hcl (Vitamin B6) 50 Mg Tablet) 50 mg PO DAILY [facility] Last Admin: 12/09/24 09:03 Dose: 50 mg Ropinirole HCl (Ropinirole Hcl 2 Mg Tablet) 2 mg PO DAILY@1700 [facility] Last Admin: 12/08/24 16:34 Dose: 2 mg Senna (Sennosides 8.6 Mg Tablet) 17.2 mg PO BEDTIME [facility] On Hold: 11/06/24 16:27 Last Admin: 11/05/24 19:39 Dose: 17.2 mg Simethicone (Simethicone 80 Mg Tab.Chew) 80 mg PO QIDWMHS [facility] Last Admin: 12/09/24 10:39 Dose: 80 mg Sitagliptin Phosphate (Sitagliptin Phosphate 25 Mg Tablet) 25 mg PO DAILY [facility] Last Admin: 12/09/24 09:03 Dose: 25 mg Trazodone HCl (Trazodone Hcl 50 Mg Tablet) 50 mg PO BEDTIME MRX1 PRN PRN Reason: Insomnia Last Admin: 12/04/24 20:37 Dose: 50 mg Allergies Allergies Allergy/AdvReac Type Severity Reaction Status Date / Time ampicillin Allergy Rash Verified 10/20/24 19:28 morphine Allergy Rash Verified 10/20/24 19:28 Penicillins Allergy Rash Verified 10/20/24 19:28 pork derived (porcine) Allergy Vomiting Verified 11/10/24 17:49 Assessment & Plan Assessment & Plan (1) MDD (major depressive disorder), recurrent episode, moderate: Status: Acute Code(s): F33.1 - Major depressive disorder, recurrent, moderate (2) 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 Barreto is a 78 year-old woman with hx of MDD who was assessed by N at request of her son who called 911 after pt had reported suicidal ideation with plan to OD. In the ED, pt adamantly denied suicidal ideation but reports feeling increasingly more depressed due to involuntary, ongoing movement of lower extremities. She attributes her depressed mood and increase anxious mood to RLS. She has also been treated as tardive akathisia, note that she was previously prescribed abilify. It is noted that she may have iron deficiency due to normocytic anemia which can exacerbate RLS. It is unclear which medications for hyperkinetic movements of the legs are actually helpful and furthermore it is not easily to differentiate whether it is tardive akathisia or RLS. She has been on psychotropic medications that are known to cause akathisia such as abilify. She reports subjective sense of restlessness. Involuntary movement seems to be throughout the day. We will have to do trial of medications that target akathisia such as propanolol and ativan versus medications such as pramipexol for RLS (note that in RLS there is an initial relief with dopamine agonist but can make it worse over time). In addition, will try iron deficiency as it is an underlying cause and exacerbating factor in RLS. PLAN 11/14 continue tx. will monitor before making substantial changes every day. 11/15 continue tx. pt somatically preoccupied. 11/16: Continue current management and treatment plan. 11/17: continue current management and treatment plan. 11/18 start buspar 10mg po TID for SHEILA. continue all other meds. 11/19 increase buspar 20mg po TID 11/20 appears calmer, less somatically preoccupied. continue current medications. 11/21 sodium stable. continues to present as less dysphoric, calmer. reports of dizziness (VS not hotn nor orthostatic), ?vertigo, will try low dose of meclizine otherwise will consult hospitalist for further management. 8.2- pt more focused on gi issues- and anxiety/forgetfulness- continue to monitor somatic complaints- dc qid poc 11/25 will lowered ropinirole as it may increasing anxiety, noted that buspar was lowered, do not think this medication was causing fogginess as pt appeared much calmer since we added buspar. She was started on low dose clonazepam. 11/26 continue tx. received one time dose xanax, but reported feeling overly sedated (although did not appear sedated) 11/27 somatically p8/: Continue current regimen and plansreoccupied, no change in medications. 11/29 continue tx. 11/30: Continue current regimen and plans 12/01: Continue current plans and regimen 12/02 increase buspar 20mg po TID. 12/03: reports depression not improving, c/o feeling low energy and motivation, saying she needs a orange picker. start wellbutrin XL 150 daily tomorrow for depression. also c/o anxiety-provoking and nocturnally loud peer. schedule klonopin 0.25 QHS for insomnia. otherwise continue current mgmt. awaiting placement. 12/04: slept well last night, started wellbutrin this morning without incident. continue current mgmt. will be discharging to [facility]. 12/05: slept well. c/o anxiety at 3-330 in the afternoon. pt to ask for klonopin PRN at 2-230. trend anxiety, T/C DC of wellbutrin if anxiety seems reliably increased since starting it. dispo next week likely. 12/06: anxious. schedule klonopin 0.25 mg Qdaily at 1430 per pt request. otherwise continue current mgmt. 12/07: anxious and depressed. c/o insomnia. will give wellbutrin a few more days to see if insomnia subsides and mood improves. per staf, stable and uneventful presentation. 12/08: depressed. agreeable to increase wellbutrin to 300 mg as of tomorrow. otherwise continue current mgmt. sleeping well. 12/09: started wellbutrin 300 today. c/o URI Sx, start guaifenesin. otherwise continue current mgmt. Reason for continued inpatient stay Substantial Risk for: inability to function Time Spent With Patient Time: Total time managing care of this patient today ____ minutes.
[2024-12-09] MEDS: clonazePAM ODT 0.125 MG TAB.RAPDIS 0.25 MG PO (14:34)
[2024-12-09 20:00] VITALS: BP 118/71; PULSE 87; RESP 18; TEMP 36.3; O2SAT 98
[2024-12-09] MEDS: guaiFENesin LA 600 MG TAB.ER.12H 1200 MG PO (20:38)
[2024-12-10 06:31] LABS: Glucose, Whole Blood 167 mg/dL (60-115)
[2024-12-10 08:00] VITALS: BP 114/64; PULSE 91; RESP 16; O2SAT 99
[2024-12-10] MEDS: guaiFENesin LA 600 MG TAB.ER.12H 1200 MG PO ×2 (08:56→21:28)
[2024-12-10] MEDS: buPROPion HCl XL 300 MG TAB.ER.24H PO (08:57)
[2024-12-10] MEDS: Fluticasone/Vilanterol 100/25 BLST.W.DEV 1 PUFF INHALE (08:58)
--- NOTE | 2024-12-10 10:50 | HO.PSYCHPN ---
Subjective Subjective Date of Service: 12/10/24 Reason For Visit: SI with plan to OD on medications, increased anxie Interim History: c/o coughing, sleeping poorly, not happy. per staff, coughing all NOC. taking mucinex. eating well. visible, anxious. eves calm, cooperative. slept 8 hours. D/C early next week. Mental Status Exam Mental Status Exam Narrative: She is alert, pleasant and cooperative. Speech is normal. Moderate eye contact. Affect is appropriate and contained. Moderate anxiety and depression present. No acute signs of psychosis. Cognitively impaired. Judgment is impaired Diagnostics Vital Signs (24Hr): Vital Signs - 24 hr 12/09/24 20:00 Temperature 97.3 F Pulse Rate 87 Respiratory Rate 18 Blood Pressure 118/71 Pulse Oximetry 98 Oxygen Delivery Method Room Air BMI result Body Mass Index 22.9 Labs 11/02/24 20:14 11/20/24 11:02 Labs: Laboratory Results - last 48 hr 12/09/24 12/10/24 06:26 06:09 POC Glucose 165 H 167 H Imaging Radiology Impressions: ITS Impressions Hip/Pelvis X-Ray 11/05/24 11:00 IMPRESSION: Unremarkable examination of the left hip. Electronically signed by: Sam Saini MD 11/05/2024 11:13 AM EDT RP KUB X-Ray 11/06/24 09:20 IMPRESSION: Large amount of stool throughout the colon. Electronically signed by: Sam Saini MD 11/06/2024 09:34 AM EDT RP Head CT 11/08/24 14:58 IMPRESSION: Left frontal soft tissue swelling. No acute intracranial abnormality. Electronically signed by: Sam Saini MD 11/08/2024 03:18 PM EDT RP Medications Medications Current Medications Acetaminophen (Acetaminophen 325 Mg Tablet) 650 mg PO Q6H PRN PRN Reason: Headache/Pain, Scale 1-10 Last Admin: 12/09/24 20:36 Dose: 650 mg Al Hydroxide/Mg Hydroxide (Magnesium Hydrox/Alum Hydrox 30 Ml Oral.Susp) 30 ml PO Q6H PRN PRN Reason: Heartburn/Nausea Last Admin: 12/07/24 15:51 Dose: 30 ml Albuterol Sulfate (Albuterol Sulfate 90 Mcg 8 Gm Inhaler) 2 puff INHALE Q4H PRN PRN Reason: Shortness Of Breath Or Wheezin Amlodipine Besylate (Amlodipine Besylate 2.5 Mg Tablet) 2.5 mg PO DAILY [facility]; Protocol Last Admin: 12/10/24 08:57 Dose: 2.5 mg Atorvastatin Calcium (Atorvastatin Calcium 20 Mg Tablet) 20 mg PO DAILY [facility] Last Admin: 12/10/24 08:57 Dose: 20 mg Bisacodyl (Bisacodyl 10 Mg Supp.Rect) 10 mg RI BEDTIME PRN PRN Reason: Constipation Last Admin: 11/04/24 20:37 Dose: 10 mg Bupropion HCl (Bupropion Hcl Xl 300 Mg Tab.Er.24h) 300 mg PO DAILY [facility] Last Admin: 12/10/24 08:57 Dose: 300 mg Buspirone HCl (Buspirone Hcl 10 Mg Tablet) 20 mg PO TID [facility] Last Admin: 12/10/24 08:57 Dose: 20 mg Calcium Carbonate (Calcium Carbonate 750 Mg Tab.Chew) 750 mg PO Q4H PRN PRN Reason: Heartburn Last Admin: 11/30/24 21:34 Dose: 750 mg Clonazepam (Clonazepam 0.5 Mg Tablet) 0.25 mg PO BEDTIME [facility] Last Admin: 12/09/24 20:37 Dose: 0.25 mg Clonazepam (Clonazepam Odt 0.125 Mg Tab.Rapdis) 0.25 mg PO DAILY@1430 [facility] Last Admin: 12/09/24 14:34 Dose: 0.25 mg Clonazepam (Clonazepam 0.5 Mg Tablet) 0.25 mg PO DAILY PRN PRN Reason: breakthrough anxiety Last Admin: 12/08/24 17:58 Dose: 0.25 mg Dicyclomine HCl (Dicyclomine Hcl 10 Mg Capsule) 10 mg PO Q4H PRN PRN Reason: abdominal cramping Last Admin: 12/01/24 20:11 Dose: 10 mg Docusate Sodium (Docusate Sodium 100 Mg Capsule) 100 mg PO BID [facility] Last Admin: 12/10/24 08:57 Dose: 100 mg Duloxetine HCl (Duloxetine Hcl 60 Mg Capsule.Dr) 60 mg PO DAILY [facility] Last Admin: 12/10/24 08:57 Dose: 60 mg Fluticasone/Vilanterol (Fluticasone/Vilanterol 100/25 Blst.W.Dev) 1 puff INHALE RDAILY [facility] Last Admin: 12/10/24 08:58 Dose: 1 puff Gabapentin (Gabapentin 100 Mg Capsule) 100 mg PO TID [facility] Last Admin: 12/10/24 08:57 Dose: 100 mg Glipizide (Glipizide Xl 2.5 Mg Tab.Er.24) 2.5 mg PO DAILY [facility] Last Admin: 12/10/24 08:56 Dose: 2.5 mg Guaifenesin (Guaifenesin La 600 Mg Tab.Er.12h) 1,200 mg PO BID PRN PRN Reason: Cough Last Admin: 12/10/24 08:56 Dose: 1,200 mg Lisinopril (Lisinopril 2.5 Mg Tablet) 2.5 mg PO DAILY [facility]; Protocol Last Admin: 12/10/24 08:57 Dose: 2.5 mg Magnesium Hydroxide (Milk Of Magnesia 30 Ml Oral.Susp) 30 ml PO DAILY PRN PRN Reason: Constipation Last Admin: 11/04/24 16:49 Dose: 30 ml Mirtazapine (Mirtazapine 30 Mg Tablet) 30 mg PO BEDTIME [facility] Last Admin: 12/09/24 20:36 Dose: 30 mg Omeprazole (Omeprazole 20 Mg Capsule.Dr) 20 mg PO BID@0630,1630 [facility] Last Admin: 12/10/24 05:35 Dose: 20 mg Ondansetron HCl (Ondansetron Odt 4 Mg Tab.Rapdis) 4 mg TRANSLINGU Q4H PRN PRN Reason: Nausea and Vomiting Last Admin: 12/08/24 17:01 Dose: 4 mg Polyethylene Glycol (Polyethylene Glycol 3350 17 Gm Powd.Pack) 17 gm PO BID [facility] Last Admin: 12/10/24 09:11 Dose: Not Given Pramipexole Dihydrochloride (Pramipexole Di-Hcl 0.125 Mg Tablet) 0.125 mg PO DAILY [facility] Last Admin: 12/10/24 08:57 Dose: 0.125 mg Pyridoxine HCl (Pyridoxine Hcl (Vitamin B6) 50 Mg Tablet) 50 mg PO DAILY [facility] Last Admin: 12/10/24 08:56 Dose: 50 mg Ropinirole HCl (Ropinirole Hcl 2 Mg Tablet) 2 mg PO DAILY@1700 [facility] Last Admin: 12/09/24 16:51 Dose: 2 mg Senna (Sennosides 8.6 Mg Tablet) 17.2 mg PO BEDTIME [facility] On Hold: 11/06/24 16:27 Last Admin: 11/05/24 19:39 Dose: 17.2 mg Simethicone (Simethicone 80 Mg Tab.Chew) 80 mg PO QIDWMHS [facility] Last Admin: 12/10/24 08:58 Dose: 80 mg Sitagliptin Phosphate (Sitagliptin Phosphate 25 Mg Tablet) 25 mg PO DAILY [facility] Last Admin: 12/10/24 08:56 Dose: 25 mg Trazodone HCl (Trazodone Hcl 50 Mg Tablet) 50 mg PO BEDTIME MRX1 PRN PRN Reason: Insomnia Last Admin: 12/09/24 20:37 Dose: 50 mg Allergies Allergies Allergy/AdvReac Type Severity Reaction Status Date / Time ampicillin Allergy Rash Verified 10/20/24 19:28 morphine Allergy Rash Verified 10/20/24 19:28 Penicillins Allergy Rash Verified 10/20/24 19:28 pork derived (porcine) Allergy Vomiting Verified 11/10/24 17:49 Assessment & Plan Assessment & Plan (1) MDD (major depressive disorder), recurrent episode, moderate: Status: Acute Code(s): F33.1 - Major depressive disorder, recurrent, moderate (2) 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 Barreto is a 78 year-old woman with hx of MDD who was assessed by N at request of her son who called 911 after pt had reported suicidal ideation with plan to OD. In the ED, pt adamantly denied suicidal ideation but reports feeling increasingly more depressed due to involuntary, ongoing movement of lower extremities. She attributes her depressed mood and increase anxious mood to RLS. She has also been treated as tardive akathisia, note that she was previously prescribed abilify. It is noted that she may have iron deficiency due to normocytic anemia which can exacerbate RLS. It is unclear which medications for hyperkinetic movements of the legs are actually helpful and furthermore it is not easily to differentiate whether it is tardive akathisia or RLS. She has been on psychotropic medications that are known to cause akathisia such as abilify. She reports subjective sense of restlessness. Involuntary movement seems to be throughout the day. We will have to do trial of medications that target akathisia such as propanolol and ativan versus medications such as pramipexol for RLS (note that in RLS there is an initial relief with dopamine agonist but can make it worse over time). In addition, will try iron deficiency as it is an underlying cause and exacerbating factor in RLS. PLAN 11/14 continue tx. will monitor before making substantial changes every day. 11/15 continue tx. pt somatically preoccupied. 11/16: Continue current management and treatment plan. 11/17: continue current management and treatment plan. 11/18 start buspar 10mg po TID for SHEILA. continue all other meds. 11/19 increase buspar 20mg po TID 11/20 appears calmer, less somatically preoccupied. continue current medications. 11/21 sodium stable. continues to present as less dysphoric, calmer. reports of dizziness (VS not hotn nor orthostatic), ?vertigo, will try low dose of meclizine otherwise will consult hospitalist for further management. 8.2- pt more focused on gi issues- and anxiety/forgetfulness- continue to monitor somatic complaints- dc qid poc 11/25 will lowered ropinirole as it may increasing anxiety, noted that buspar was lowered, do not think this medication was causing fogginess as pt appeared much calmer since we added buspar. She was started on low dose clonazepam. 11/26 continue tx. received one time dose xanax, but reported feeling overly sedated (although did not appear sedated) 11/27 somatically p8/9: Continue current regimen and plansreoccupied, no change in medications. 11/29 continue tx. 11/30: Continue current regimen and plans 12/01: Continue current plans and regimen 12/02 increase buspar 20mg po TID. 12/03: reports depression not improving, c/o feeling low energy and motivation, saying she needs a spanish moss picker. start wellbutrin XL 150 daily tomorrow for depression. also c/o anxiety-provoking and nocturnally loud peer. schedule klonopin 0.25 QHS for insomnia. otherwise continue current mgmt. awaiting placement. 12/04: slept well last night, started wellbutrin this morning without incident. continue current mgmt. will be discharging to [facility]. 12/05: slept well. c/o anxiety at 3-330 in the afternoon. pt to ask for klonopin PRN at 2-230. trend anxiety, T/C DC of wellbutrin if anxiety seems reliably increased since starting it. dispo next week likely. 12/06: anxious. schedule klonopin 0.25 mg Qdaily at 1430 per pt request. otherwise continue current mgmt. 12/07: anxious and depressed. c/o insomnia. will give wellbutrin a few more days to see if insomnia subsides and mood improves. per staf, stable and uneventful presentation. 12/08: depressed. agreeable to increase wellbutrin to 300 mg as of tomorrow. otherwise continue current mgmt. sleeping well. 12/09: started wellbutrin 300 today. c/o URI Sx, start guaifenesin. otherwise continue current mgmt. 12/10: coughin much eves/NOC per staff. pt c/o not happy, cough, and poor sleep. continue mucinex and mental health Tx plan otherwise. Reason for continued inpatient stay Substantial Risk for: inability to function Time Spent With Patient Time: Total time managing care of this patient today ____ minutes.
[2024-12-10] MEDS: clonazePAM ODT 0.125 MG TAB.RAPDIS 0.25 MG PO (14:48)
[2024-12-10 20:00] VITALS: BP 118/68; PULSE 86; RESP 18; TEMP 36.5; O2SAT 98
[2024-12-11 06:23] LABS: Glucose, Whole Blood 159 mg/dL (60-115)
[2024-12-11 08:00] VITALS: BP 134/73; PULSE 92; RESP 18; TEMP 36.6; O2SAT 98
[2024-12-11] MEDS: Fluticasone/Vilanterol 100/25 BLST.W.DEV 1 PUFF INHALE (08:13)
[2024-12-11] MEDS: buPROPion HCl XL 300 MG TAB.ER.24H PO (08:14)
--- NOTE | 2024-12-11 14:11 | HO.PSYCHPN ---
Subjective Subjective Date of Service: 12/11/24 Reason For Visit: SI with plan to OD on medications, increased anxie Subjective Notes: Conditional Voluntary Medical Problems Affecting Mental Status: No Interim History: Medical record and nursing notes reviewed; case discussed during rounds with team/nursing staff, and met with patient for supportive therapy/psychoeducation, as well as medication management. Patient appeared to slept for 8 hours, was medication compliant but refused the MiraLax. Denies side effects. She is observed watching TV in common area. Reported that she feel anxious and depressed. She is worry about when she is leaving as she is going to stay by herself. I am depressed . Self reports that she did not sleep well last night as roommate waking her up at night telling her that she saw dogs. She reports normal stomach pain. She would hope to see the GI doctor after discharge. She reported that she will be discharged on 12/17 but not sure the name of the facility or where it is located. Denies safety concerns, denies hallucinations. Medication Compliance: Yes (Refused MiraLax) Side effects from medications: No Attending Groups: Intermittent Review of Systems Acute medical concerns: No Medical Review of Systems: unchanged Review of Systems Review of Systems C/o stomach pain which is chronic issues. Yes all other systems are reviewed and are negative Mental Status Exam Mental Status Exam Narrative: She is alert, pleasant and cooperative. Speech is normal. Moderate eye contact. Affect is appropriate and contained. Mood is anxious and depressed - mild. No distress. Speech is WNL. No acute signs of psychosis. Cognitively impaired. Judgment is poor. Insight is pair. Diagnostics Vital Signs (24Hr): Vital Signs - 24 hr 12/10/24 20:00 12/11/24 08:00 Temperature 97.7 F 97.9 F Pulse Rate 86 92 Respiratory Rate 18 18 Blood Pressure 118/68 134/73 Pulse Oximetry 98 98 Oxygen Delivery Method Room Air Room Air BMI result Body Mass Index 22.9 Labs 11/02/24 20:14 11/20/24 11:02 Labs: Laboratory Results - last 48 hr 12/10/24 12/11/24 06:09 06:15 POC Glucose 167 H 159 H Imaging Radiology Impressions: ITS Impressions Hip/Pelvis X-Ray 11/05/24 11:00 IMPRESSION: Unremarkable examination of the left hip. Electronically signed by: Sam Saini MD 11/05/2024 11:13 AM EDT RP KUB X-Ray 11/06/24 09:20 IMPRESSION: Large amount of stool throughout the colon. Electronically signed by: Sam Saini MD 11/06/2024 09:34 AM EDT RP Head CT 11/08/24 14:58 IMPRESSION: Left frontal soft tissue swelling. No acute intracranial abnormality. Electronically signed by: Sam Saini MD 11/08/2024 03:18 PM EDT RP Medications Medications Current Medications Acetaminophen (Acetaminophen 325 Mg Tablet) 650 mg PO Q6H PRN PRN Reason: Headache/Pain, Scale 1-10 Last Admin: 12/10/24 21:28 Dose: 650 mg Al Hydroxide/Mg Hydroxide (Magnesium Hydrox/Alum Hydrox 30 Ml Oral.Susp) 30 ml PO Q6H PRN PRN Reason: Heartburn/Nausea Last Admin: 12/07/24 15:51 Dose: 30 ml Albuterol Sulfate (Albuterol Sulfate 90 Mcg 8 Gm Inhaler) 2 puff INHALE Q4H PRN PRN Reason: Shortness Of Breath Or Wheezin Amlodipine Besylate (Amlodipine Besylate 2.5 Mg Tablet) 2.5 mg PO DAILY [facility]; Protocol Last Admin: 12/11/24 08:14 Dose: 2.5 mg Atorvastatin Calcium (Atorvastatin Calcium 20 Mg Tablet) 20 mg PO DAILY [facility] Last Admin: 12/11/24 08:15 Dose: 20 mg Bisacodyl (Bisacodyl 10 Mg Supp.Rect) 10 mg MI BEDTIME PRN PRN Reason: Constipation Last Admin: 11/04/24 20:37 Dose: 10 mg Bupropion HCl (Bupropion Hcl Xl 300 Mg Tab.Er.24h) 300 mg PO DAILY [facility] Last Admin: 12/11/24 08:14 Dose: 300 mg Buspirone HCl (Buspirone Hcl 10 Mg Tablet) 20 mg PO TID [facility] Last Admin: 12/11/24 08:15 Dose: 20 mg Calcium Carbonate (Calcium Carbonate 750 Mg Tab.Chew) 750 mg PO Q4H PRN PRN Reason: Heartburn Last Admin: 11/30/24 21:34 Dose: 750 mg Clonazepam (Clonazepam 0.5 Mg Tablet) 0.25 mg PO BEDTIME [facility] Last Admin: 12/10/24 20:09 Dose: 0.25 mg Clonazepam (Clonazepam Odt 0.125 Mg Tab.Rapdis) 0.25 mg PO DAILY@1430 [facility] Last Admin: 12/10/24 14:48 Dose: 0.25 mg Clonazepam (Clonazepam 0.5 Mg Tablet) 0.25 mg PO DAILY PRN PRN Reason: breakthrough anxiety Last Admin: 12/08/24 17:58 Dose: 0.25 mg Dicyclomine HCl (Dicyclomine Hcl 10 Mg Capsule) 10 mg PO Q4H PRN PRN Reason: abdominal cramping Last Admin: 12/01/24 20:11 Dose: 10 mg Docusate Sodium (Docusate Sodium 100 Mg Capsule) 100 mg PO BID [facility] Last Admin: 12/11/24 08:15 Dose: 100 mg Duloxetine HCl (Duloxetine Hcl 60 Mg Capsule.Dr) 60 mg PO DAILY [facility] Last Admin: 12/11/24 08:14 Dose: 60 mg Fluticasone/Vilanterol (Fluticasone/Vilanterol 100/25 Blst.W.Dev) 1 puff INHALE RDAILY [facility] Last Admin: 12/11/24 08:13 Dose: 1 puff Gabapentin (Gabapentin 100 Mg Capsule) 100 mg PO TID [facility] Last Admin: 12/11/24 08:14 Dose: 100 mg Glipizide (Glipizide Xl 2.5 Mg Tab.Er.24) 2.5 mg PO DAILY [facility] Last Admin: 12/11/24 08:14 Dose: 2.5 mg Guaifenesin (Guaifenesin La 600 Mg Tab.Er.12h) 1,200 mg PO BID PRN PRN Reason: Cough Last Admin: 12/10/24 21:28 Dose: 1,200 mg Lisinopril (Lisinopril 2.5 Mg Tablet) 2.5 mg PO DAILY [facility]; Protocol Last Admin: 12/11/24 08:13 Dose: 2.5 mg Magnesium Hydroxide (Milk Of Magnesia 30 Ml Oral.Susp) 30 ml PO DAILY PRN PRN Reason: Constipation Last Admin: 11/04/24 16:49 Dose: 30 ml Mirtazapine (Mirtazapine 30 Mg Tablet) 30 mg PO BEDTIME [facility] Last Admin: 12/10/24 20:09 Dose: 30 mg Omeprazole (Omeprazole 20 Mg Capsule.Dr) 20 mg PO BID@0630,1630 [facility] Last Admin: 12/11/24 06:11 Dose: 20 mg Ondansetron HCl (Ondansetron Odt 4 Mg Tab.Rapdis) 4 mg TRANSLINGU Q4H PRN PRN Reason: Nausea and Vomiting Last Admin: 12/08/24 17:01 Dose: 4 mg Polyethylene Glycol (Polyethylene Glycol 3350 17 Gm Powd.Pack) 17 gm PO BID [facility] Last Admin: 12/11/24 08:20 Dose: Not Given Pramipexole Dihydrochloride (Pramipexole Di-Hcl 0.125 Mg Tablet) 0.125 mg PO DAILY [facility] Last Admin: 12/11/24 08:14 Dose: 0.125 mg Pyridoxine HCl (Pyridoxine Hcl (Vitamin B6) 50 Mg Tablet) 50 mg PO DAILY [facility] Last Admin: 12/11/24 08:14 Dose: 50 mg Ropinirole HCl (Ropinirole Hcl 2 Mg Tablet) 2 mg PO DAILY@1700 [facility] Last Admin: 12/10/24 16:56 Dose: 2 mg Senna (Sennosides 8.6 Mg Tablet) 17.2 mg PO BEDTIME [facility] On Hold: 11/06/24 16:27 Last Admin: 11/05/24 19:39 Dose: 17.2 mg Simethicone (Simethicone 80 Mg Tab.Chew) 80 mg PO QIDWMHS [facility] Last Admin: 12/11/24 11:50 Dose: 80 mg Sitagliptin Phosphate (Sitagliptin Phosphate 25 Mg Tablet) 25 mg PO DAILY [facility] Last Admin: 12/11/24 08:14 Dose: 25 mg Trazodone HCl (Trazodone Hcl 50 Mg Tablet) 50 mg PO BEDTIME MRX1 PRN PRN Reason: Insomnia Last Admin: 12/09/24 20:37 Dose: 50 mg Allergies Allergies Allergy/AdvReac Type Severity Reaction Status Date / Time ampicillin Allergy Rash Verified 10/20/24 19:28 morphine Allergy Rash Verified 10/20/24 19:28 Penicillins Allergy Rash Verified 10/20/24 19:28 pork derived (porcine) Allergy Vomiting Verified 11/10/24 17:49 Assessment & Plan Assessment & Plan (1) MDD (major depressive disorder), recurrent episode, moderate: Status: Acute Code(s): F33.1 - Major depressive disorder, recurrent, moderate (2) 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 Barreto is a 78 year-old woman with hx of MDD who was assessed by N at request of her son who called 911 after pt had reported suicidal ideation with plan to OD. In the ED, pt adamantly denied suicidal ideation but reports feeling increasingly more depressed due to involuntary, ongoing movement of lower extremities. She attributes her depressed mood and increase anxious mood to RLS. She has also been treated as tardive akathisia, note that she was previously prescribed abilify. It is noted that she may have iron deficiency due to normocytic anemia which can exacerbate RLS. It is unclear which medications for hyperkinetic movements of the legs are actually helpful and furthermore it is not easily to differentiate whether it is tardive akathisia or RLS. She has been on psychotropic medications that are known to cause akathisia such as abilify. She reports subjective sense of restlessness. Involuntary movement seems to be throughout the day. We will have to do trial of medications that target akathisia such as propanolol and ativan versus medications such as pramipexol for RLS (note that in RLS there is an initial relief with dopamine agonist but can make it worse over time). In addition, will try iron deficiency as it is an underlying cause and exacerbating factor in RLS. PLAN 11/14 continue tx. will monitor before making substantial changes every day. 11/15 continue tx. pt somatically preoccupied. 11/16: Continue current management and treatment plan. 11/17: continue current management and treatment plan. 11/18 start buspar 10mg po TID for SHEILA. continue all other meds. 11/19 increase buspar 20mg po TID 11/20 appears calmer, less somatically preoccupied. continue current medications. 11/21 sodium stable. continues to present as less dysphoric, calmer. reports of dizziness (VS not hotn nor orthostatic), ?vertigo, will try low dose of meclizine otherwise will consult hospitalist for further management. 8.2- pt more focused on gi issues- and anxiety/forgetfulness- continue to monitor somatic complaints- dc qid poc 11/25 will lowered ropinirole as it may increasing anxiety, noted that buspar was lowered, do not think this medication was causing fogginess as pt appeared much calmer since we added buspar. She was started on low dose clonazepam. 11/26 continue tx. received one time dose xanax, but reported feeling overly sedated (although did not appear sedated) 11/27 somatically p8/9: Continue current regimen and plansreoccupied, no change in medications. 11/29 continue tx. 11/30: Continue current regimen and plans 12/01: Continue current plans and regimen 12/02 increase buspar 20mg po TID. 12/03: reports depression not improving, c/o feeling low energy and motivation, saying she needs a product picker. start wellbutrin XL 150 daily tomorrow for depression. also c/o anxiety-provoking and nocturnally loud peer. schedule klonopin 0.25 QHS for insomnia. otherwise continue current mgmt. awaiting placement. 12/04: slept well last night, started wellbutrin this morning without incident. continue current mgmt. will be discharging to [facility]. 12/05: slept well. c/o anxiety at 3-330 in the afternoon. pt to ask for klonopin PRN at 2-230. trend anxiety, T/C DC of wellbutrin if anxiety seems reliably increased since starting it. dispo next week likely. 12/06: anxious. schedule klonopin 0.25 mg Qdaily at 1430 per pt request. otherwise continue current mgmt. 12/07: anxious and depressed. c/o insomnia. will give wellbutrin a few more days to see if insomnia subsides and mood improves. per staf, stable and uneventful presentation. 12/08: depressed. agreeable to increase wellbutrin to 300 mg as of tomorrow. otherwise continue current mgmt. sleeping well. 12/09: started wellbutrin 300 today. c/o URI Sx, start guaifenesin. otherwise continue current mgmt. 12/10: coughin much eves/NOC per staff. pt c/o not happy, cough, and poor sleep. continue mucinex and mental health Tx plan otherwise. 12/11/24: Patient appeared to slept for 8 hours, was medication compliant but refused the MiraLax. Denies side effects. She is observed watching TV in common area. Reported that she feel anxious and depressed. She is worry about when she is leaving as she is going to stay by herself. I am depressed . Self reports that she did not sleep well last night as roommate waking her up at night telling her that she saw dogs. She reports normal stomach pain. She would hope to see the GI doctor after discharge. She reported that she will be discharged on 12/17 but not sure the name of the facility or where it is located. Denies safety concerns, denies hallucinations. No coughing observed this morning. Patient educated on: diagnosis, medication risk/benefits and therapeutic strategies Informed Consent: further education needed Reason for continued inpatient stay Substantial Risk for: med/psych decompensation Time Spent With Patient Time: Total time managing care of this patient today ____ minutes.
[2024-12-11] MEDS: clonazePAM ODT 0.125 MG TAB.RAPDIS 0.25 MG PO (14:21)
[2024-12-11 20:00] VITALS: BP 139/60; PULSE 89; RESP 16; TEMP 36.4; O2SAT 98
--- NOTE | 2024-12-12 | ECG_ITS ---
Test Reason : ect clearence Blood Pressure : */* mmHG Vent. Rate : 99 BPM Atrial Rate : 99 BPM P-R Int : 116 ms QRS Dur : 66 ms QT Int : 314 ms P-R-T Axes : 59 33 56 degrees QTcB Int : 402 ms Normal sinus rhythm Normal ECG When compared with ECG of 21-Oct-2024 11:27, No significant change was found Referred By: Jared Porter Electronically Signed By: RICARDO WOODWARD MD
[2024-12-12 06:29] LABS: Glucose, Whole Blood 148 mg/dL (60-115)
[2024-12-12 07:54] LABS: TS Negative Control Passed; TS Panel A 1; TS Panel B 0; TS Positive Control Passed; TSpotTB Negative (Negative)
[2024-12-12 08:00] VITALS: BP 124/66; PULSE 93; RESP 18; TEMP 36.5; O2SAT 97
[2024-12-12] MEDS: Fluticasone/Vilanterol 100/25 BLST.W.DEV 1 PUFF INHALE (08:24)
[2024-12-12 08:25] VITALS: BP 124/66
[2024-12-12 08:26] VITALS: BP 124/66
[2024-12-12] MEDS: buPROPion HCl XL 300 MG TAB.ER.24H PO (08:26)
[2024-12-12 08:38] VITALS: BMI 22.9
--- NOTE | 2024-12-12 12:15 | P.PNPSI_ITS ---
Subjective Subjective Date of Service: 12/12/24 Reason For Visit: SI with plan to OD on medications, increased anxie Interim History: pt continues to appear intense, c/o severe depression, states she does not want to live like this. down, depressed, empty inside. ECT broached, pt educated re general anesthesia, Sz stimulus. pt asking to start KACEY. per staff, remains somatically focused. c/o GI Sx. eating well, taking meds. slept 8 hours. Mental Status Exam Mental Status Exam Narrative: She is alert, pleasant and cooperative. Speech is normal. Moderate eye contact. Affect is appropriate and contained. Moderate anxiety and depression present. mood down, depressed, empty inside. No acute signs of psychosis. Cognitively impaired. Judgment is impaired Diagnostics Vital Signs (24Hr): Vital Signs - 24 hr 12/11/24 20:00 12/12/24 08:00 12/12/24 08:25 Temperature 97.5 F 97.7 F Pulse Rate 89 93 Respiratory Rate 16 18 Blood Pressure 139/60 124/66 124/66 Pulse Oximetry 98 97 Oxygen Delivery Method Room Air Room Air 12/12/24 08:26 Temperature Pulse Rate Respiratory Rate Blood Pressure 124/66 Pulse Oximetry Oxygen Delivery Method BMI result Body Mass Index 22.9 Labs 11/02/24 20:14 11/20/24 11:02 Labs: Laboratory Results - last 48 hr 12/09/24 12/11/24 12/12/24 12:31 06:15 06:24 POC Glucose 159 H 148 H TB Test (T-Spot) Com Negative TB Test Nil Control Passed TB Test Panel A 1 TB Test Panel B 0 TB Test Positive Cntrl Passed Imaging Radiology Impressions: ITS Impressions Hip/Pelvis X-Ray 11/05/24 11:00 IMPRESSION: Unremarkable examination of the left hip. Electronically signed by: Sam Saini MD 11/05/2024 11:13 AM EDT RP KUB X-Ray 11/06/24 09:20 IMPRESSION: Large amount of stool throughout the colon. Electronically signed by: Sam Saini MD 11/06/2024 09:34 AM EDT RP Head CT 11/08/24 14:58 IMPRESSION: Left frontal soft tissue swelling. No acute intracranial abnormality. Electronically signed by: Sam Saini MD 11/08/2024 03:18 PM EDT RP Medications Medications Current Medications Acetaminophen (Acetaminophen 325 Mg Tablet) 650 mg PO Q6H PRN PRN Reason: Headache/Pain, Scale 1-10 Last Admin: 12/10/24 21:28 Dose: 650 mg Al Hydroxide/Mg Hydroxide (Magnesium Hydrox/Alum Hydrox 30 Ml Oral.Susp) 30 ml PO Q6H PRN PRN Reason: Heartburn/Nausea Last Admin: 12/07/24 15:51 Dose: 30 ml Albuterol Sulfate (Albuterol Sulfate 90 Mcg 8 Gm Inhaler) 2 puff INHALE Q4H PRN PRN Reason: Shortness Of Breath Or Wheezin Amlodipine Besylate (Amlodipine Besylate 2.5 Mg Tablet) 2.5 mg PO DAILY [facility]; Protocol Last Admin: 12/12/24 08:25 Dose: 2.5 mg Atorvastatin Calcium (Atorvastatin Calcium 20 Mg Tablet) 20 mg PO DAILY [facility] Last Admin: 12/12/24 08:26 Dose: 20 mg Bisacodyl (Bisacodyl 10 Mg Supp.Rect) 10 mg PA BEDTIME PRN PRN Reason: Constipation Last Admin: 11/04/24 20:37 Dose: 10 mg Bupropion HCl (Bupropion Hcl Xl 300 Mg Tab.Er.24h) 300 mg PO DAILY [facility] Last Admin: 12/12/24 08:26 Dose: 300 mg Buspirone HCl (Buspirone Hcl 10 Mg Tablet) 20 mg PO TID [facility] Last Admin: 12/12/24 08:24 Dose: 20 mg Calcium Carbonate (Calcium Carbonate 750 Mg Tab.Chew) 750 mg PO Q4H PRN PRN Reason: Heartburn Last Admin: 11/30/24 21:34 Dose: 750 mg Clonazepam (Clonazepam 0.5 Mg Tablet) 0.25 mg PO BEDTIME [facility] Last Admin: 12/11/24 20:55 Dose: 0.25 mg Clonazepam (Clonazepam Odt 0.125 Mg Tab.Rapdis) 0.25 mg PO DAILY@1430 [facility] Last Admin: 12/11/24 14:21 Dose: 0.25 mg Clonazepam (Clonazepam 0.5 Mg Tablet) 0.25 mg PO DAILY PRN PRN Reason: breakthrough anxiety Last Admin: 12/08/24 17:58 Dose: 0.25 mg Dicyclomine HCl (Dicyclomine Hcl 10 Mg Capsule) 10 mg PO Q4H PRN PRN Reason: abdominal cramping Last Admin: 12/11/24 15:45 Dose: 10 mg Docusate Sodium (Docusate Sodium 100 Mg Capsule) 100 mg PO BID [facility] Last Admin: 12/12/24 08:25 Dose: 100 mg Duloxetine HCl (Duloxetine Hcl 60 Mg Capsule.Dr) 60 mg PO DAILY [facility] Last Admin: 12/12/24 08:25 Dose: 60 mg Fluticasone/Vilanterol (Fluticasone/Vilanterol 100/25 Blst.W.Dev) 1 puff INHALE RDAILY [facility] Last Admin: 12/12/24 08:24 Dose: 1 puff Gabapentin (Gabapentin 100 Mg Capsule) 100 mg PO TID [facility] Last Admin: 12/12/24 08:25 Dose: 100 mg Glipizide (Glipizide Xl 2.5 Mg Tab.Er.24) 2.5 mg PO DAILY [facility] Last Admin: 12/12/24 08:26 Dose: 2.5 mg Guaifenesin (Guaifenesin La 600 Mg Tab.Er.12h) 1,200 mg PO BID PRN PRN Reason: Cough Last Admin: 12/10/24 21:28 Dose: 1,200 mg Lisinopril (Lisinopril 2.5 Mg Tablet) 2.5 mg PO DAILY [facility]; Protocol Last Admin: 12/12/24 08:26 Dose: 2.5 mg Magnesium Hydroxide (Milk Of Magnesia 30 Ml Oral.Susp) 30 ml PO DAILY PRN PRN Reason: Constipation Last Admin: 11/04/24 16:49 Dose: 30 ml Mirtazapine (Mirtazapine 30 Mg Tablet) 30 mg PO BEDTIME [facility] Last Admin: 12/11/24 20:56 Dose: 30 mg Omeprazole (Omeprazole 20 Mg Capsule.Dr) 20 mg PO BID@0630,1630 [facility] Last Admin: 12/12/24 06:21 Dose: 20 mg Ondansetron HCl (Ondansetron Odt 4 Mg Tab.Rapdis) 4 mg TRANSLINGU Q4H PRN PRN Reason: Nausea and Vomiting Last Admin: 12/08/24 17:01 Dose: 4 mg Polyethylene Glycol (Polyethylene Glycol 3350 17 Gm Powd.Pack) 17 gm PO BID [facility] Last Admin: 12/12/24 08:29 Dose: Not Given Pramipexole Dihydrochloride (Pramipexole Di-Hcl 0.125 Mg Tablet) 0.125 mg PO DAILY [facility] Last Admin: 12/12/24 08:25 Dose: 0.125 mg Pyridoxine HCl (Pyridoxine Hcl (Vitamin B6) 50 Mg Tablet) 50 mg PO DAILY [facility] Last Admin: 12/12/24 08:26 Dose: 50 mg Ropinirole HCl (Ropinirole Hcl 2 Mg Tablet) 2 mg PO DAILY@1700 [facility] Last Admin: 12/11/24 16:31 Dose: 2 mg Senna (Sennosides 8.6 Mg Tablet) 17.2 mg PO BEDTIME [facility] On Hold: 11/06/24 16:27 Last Admin: 11/05/24 19:39 Dose: 17.2 mg Simethicone (Simethicone 80 Mg Tab.Chew) 80 mg PO QIDWMHS [facility] Last Admin: 12/12/24 08:25 Dose: 80 mg Sitagliptin Phosphate (Sitagliptin Phosphate 25 Mg Tablet) 25 mg PO DAILY [facility] Last Admin: 12/12/24 08:26 Dose: 25 mg Trazodone HCl (Trazodone Hcl 50 Mg Tablet) 50 mg PO BEDTIME MRX1 PRN PRN Reason: Insomnia Last Admin: 12/11/24 20:56 Dose: 50 mg Allergies Allergies Allergy/AdvReac Type Severity Reaction Status Date / Time ampicillin Allergy Rash Verified 10/20/24 19:28 morphine Allergy Rash Verified 10/20/24 19:28 Penicillins Allergy Rash Verified 10/20/24 19:28 pork derived (porcine) Allergy Vomiting Verified 11/10/24 17:49 Assessment & Plan Assessment & Plan (1) MDD (major depressive disorder), recurrent episode, moderate: Status: Acute Code(s): F33.1 - Major depressive disorder, recurrent, moderate (2) 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 Barreto is a 78 year-old woman with hx of MDD who was assessed by N at request of her son who called 911 after pt had reported suicidal ideation with plan to OD. In the ED, pt adamantly denied suicidal ideation but reports feeling increasingly more depressed due to involuntary, ongoing movement of lower extremities. She attributes her depressed mood and increase anxious mood to RLS. She has also been treated as tardive akathisia, note that she was previously prescribed abilify. It is noted that she may have iron deficiency due to normocytic anemia which can exacerbate RLS. It is unclear which medications for hyperkinetic movements of the legs are actually helpful and furthermore it is not easily to differentiate whether it is tardive akathisia or RLS. She has been on psychotropic medications that are known to cause akathisia such as abilify. She reports subjective sense of restlessness. Involuntary movement seems to be throughout the day. We will have to do trial of medications that target akathisia such as propanolol and ativan versus medications such as pramipexol for RLS (note that in RLS there is an initial relief with dopamine agonist but can make it worse over time). In addition, will try iron deficiency as it is an underlying cause and exacerbating factor in RLS. PLAN 11/14 continue tx. will monitor before making substantial changes every day. 11/15 continue tx. pt somatically preoccupied. 11/16: Continue current management and treatment plan. 11/17: continue current management and treatment plan. 11/18 start buspar 10mg po TID for SHEILA. continue all other meds. 11/19 increase buspar 20mg po TID 11/20 appears calmer, less somatically preoccupied. continue current medications. 11/21 sodium stable. continues to present as less dysphoric, calmer. reports of dizziness (VS not hotn nor orthostatic), ?vertigo, will try low dose of meclizine otherwise will consult hospitalist for further management. 8.2- pt more focused on gi issues- and anxiety/forgetfulness- continue to monitor somatic complaints- dc qid poc 11/25 will lowered ropinirole as it may increasing anxiety, noted that buspar was lowered, do not think this medication was causing fogginess as pt appeared much calmer since we added buspar. She was started on low dose clonazepam. 11/26 continue tx. received one time dose xanax, but reported feeling overly sedated (although did not appear sedated) 11/27 somatically p8: Continue current regimen and plansreoccupied, no change in medications. 11/29 continue tx. 11/30: Continue current regimen and plans 12/01: Continue current plans and regimen 12/02 increase buspar 20mg po TID. 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 start wellbutrin XL 150 daily tomorrow for depression. also c/o anxiety-provoking and nocturnally loud peer. schedule klonopin 0.25 QHS for insomnia. otherwise continue current mgmt. awaiting placement. 12/04: slept well last night, started wellbutrin this morning without incident. continue current mgmt. will be discharging to [facility]. 12/05: slept well. c/o anxiety at 3-330 in the afternoon. pt to ask for klonopin PRN at 2-230. trend anxiety, T/C DC of wellbutrin if anxiety seems reliably increased since starting it. dispo next week likely. 12/06: anxious. schedule klonopin 0.25 mg Qdaily at 1430 per pt request. otherwise continue current mgmt. 12/07: anxious and depressed. c/o insomnia. will give wellbutrin a few more days to see if insomnia subsides and mood improves. per staf, stable and uneventful presentation. 12/08: depressed. agreeable to increase wellbutrin to 300 mg as of tomorrow. otherwise continue current mgmt. sleeping well. 12/09: started wellbutrin 300 today. c/o URI Sx, start guaifenesin. otherwise continue current mgmt. 12/10: coughin much eves/NOC per staff. pt c/o not happy, cough, and poor sleep. continue mucinex and mental health Tx plan otherwise. 12/11/24: Patient appeared to slept for 8 hours, was medication compliant but refused the MiraLax. Denies side effects. She is observed watching TV in common area. Reported that she feel anxious and depressed. She is worry about when she is leaving as she is going to stay by herself. I am depressed . Self reports that she did not sleep well last night as roommate waking her up at night telling her that she saw dogs. She reports normal stomach pain. She would hope to see the GI doctor after discharge. She reported that she will be discharged on 12/17 but not sure the name of the facility or where it is located. Denies safety concerns, denies hallucinations. No coughing observed this morning. 12/12: c/o unremitting depression, saying she does not want to live like this. interested in ECT, educated re the procedure. obtain risk strat and EKG, discuss in rounds tomorrow morning. otherwise continue current mgmt. Reason for continued inpatient stay Substantial Risk for: inability to function Time Spent With Patient Time: Total time managing care of this patient today __25__ minutes.
[2024-12-12] MEDS: clonazePAM ODT 0.125 MG TAB.RAPDIS 0.25 MG PO (14:35)
[2024-12-12] MEDS: Magnesium Hydrox/Alum Hydrox 30 ML ORAL.SUSP PO (15:20)
[2024-12-12] MEDS: guaiFENesin LA 600 MG TAB.ER.12H 1200 MG PO (18:30)
[2024-12-12 20:00] VITALS: BP 122/62; PULSE 91; RESP 16; TEMP 36.4; O2SAT 98
[2024-12-13 06:22] LABS: Glucose, Whole Blood 151 mg/dL (60-115)
[2024-12-13 07:59] VITALS: BP 169/80; PULSE 109; RESP 18; TEMP 36.9; O2SAT 92
[2024-12-13] MEDS: Fluticasone/Vilanterol 100/25 BLST.W.DEV 1 PUFF INHALE (08:00)
[2024-12-13] MEDS: buPROPion HCl XL 300 MG TAB.ER.24H PO (08:02)
--- NOTE | 2024-12-13 11:39 | P.EN_ITS ---
Event Note Date of Service: 12/13/24 Event Note: This is a 78 year old female with history of HLD, HTN, T2DM, gastroparesis patient is seen and examined for ECT risk evaluation. patient is awake, alert and eating lunch. She states that she continues to have depressive symptoms and medication does not appear to be helping. She is eager to try ECT and hopeful that it will be effective. She denies a history of underlying lung disease. She has history of appendectomy with no history of adverse events with ane sthesia, denies seizure history or history of heart disease. She denies any chest pain and has adequate functional capacity with the ability to walk up and down the hallways without shortness of breath or chest pain. EKG reviewed and normal sinus rhythm with no ischemic changes. Brain CT from 11/08 reviewed showing no space-occupying lesion. Blood pressure has been well controlled on low-dose Norvasc and lisinopril, although this morning there is one elevated blood pressure reading. Would recommend following blood pressure over the weekend and if remains elevated consistently in the 150s/160s, can consider increasing dose of lisinoril to 5mg daily. Check BMP, if normal there is no obvious contraindication to ECT and no further work up is required prior to planned procedure. Time Spent With Patient Time: Total time managing care of this patient today ____ minutes.
[2024-12-13 13:02] LABS: Anion Gap 16 (12-20); Blood Urea Nitrogen 32 mg/dL (9-16); Calcium 9.3 mg/dL (8.4-10.2); Carbon Dioxide 20 mmol/L (22-29); Chloride 103 mmol/L (96-108); Creatinine Clr Calc Pharmacy 24.1; Estimated Glomerular Filt Rate 37; Potassium 4.4 mmol/L (3.3-5.1); Sodium 135 mmol/L (135-145)
--- NOTE | 2024-12-13 13:49 | P.PNPSI_ITS ---
Subjective Subjective Date of Service: 12/13/24 Reason For Visit: SI with plan to OD on medications, increased anxie Interim History: anxious, tense, c/o depression. also c/o URI Sx. intent on ECT trial. per staff, c/o chills, shivering. afebrile. eating well. dep 10, anx 8. denies SI/HI. Mental Status Exam Mental Status Exam Narrative: She is alert, pleasant and cooperative. Speech is normal. Moderate eye contact. Affect is appropriate and contained. anxiety and depression present. No acute signs of psychosis. Cognitively impaired. Judgment is impaired Diagnostics Vital Signs (24Hr): Vital Signs - 24 hr 12/12/24 20:00 12/13/24 07:59 Temperature 97.6 F 98.4 F Pulse Rate 91 109 H Respiratory Rate 16 18 Blood Pressure 122/62 169/80 H Pulse Oximetry 98 92 Oxygen Delivery Method Room Air Room Air BMI result Body Mass Index 22.9 Labs 11/02/24 20:14 12/13/24 12:13 Labs: Laboratory Results - last 48 hr 12/09/24 12/12/24 12/13/24 12:31 06:24 06:14 Sodium Potassium Chloride Carbon Dioxide Anion Gap BUN Creatinine Estim Creat Clear Calc Estimated GFR POC Glucose 148 H 151 H Random Glucose Calcium TB Test (T-Spot) Com Negative TB Test Nil Control Passed TB Test Panel A 1 TB Test Panel B 0 TB Test Positive Cntrl Passed 12/13/24 12:13 Sodium 135 Potassium 4.4 Chloride 103 Carbon Dioxide 20 L Anion Gap 16 BUN 32 H Creatinine 1.39 Estim Creat Clear Calc 24.1 Estimated GFR 37 POC Glucose Random Glucose 351 H* Calcium 9.3 TB Test (T-Spot) Com TB Test Nil Control TB Test Panel A TB Test Panel B TB Test Positive Cntrl Imaging Radiology Impressions: ITS Impressions Hip/Pelvis X-Ray 11/05/24 11:00 IMPRESSION: Unremarkable examination of the left hip. Electronically signed by: Sam Saini MD 11/05/2024 11:13 AM EDT RP KUB X-Ray 11/06/24 09:20 IMPRESSION: Large amount of stool throughout the colon. Electronically signed by: Sam Saini MD 11/06/2024 09:34 AM EDT RP Head CT 11/08/24 14:58 IMPRESSION: Left frontal soft tissue swelling. No acute intracranial abnormality. Electronically signed by: Sam Saini MD 11/08/2024 03:18 PM EDT RP Medications Medications Current Medications Acetaminophen (Acetaminophen 325 Mg Tablet) 650 mg PO Q6H PRN PRN Reason: Headache/Pain, Scale 1-10 Last Admin: 12/13/24 09:23 Dose: 650 mg Al Hydroxide/Mg Hydroxide (Magnesium Hydrox/Alum Hydrox 30 Ml Oral.Susp) 30 ml PO Q6H PRN PRN Reason: Heartburn/Nausea Last Admin: 12/12/24 15:20 Dose: 30 ml Albuterol Sulfate (Albuterol Sulfate 90 Mcg 8 Gm Inhaler) 2 puff INHALE Q4H PRN PRN Reason: Shortness Of Breath Or Wheezin Amlodipine Besylate (Amlodipine Besylate 2.5 Mg Tablet) 2.5 mg PO DAILY [facility]; Protocol Last Admin: 12/13/24 08:02 Dose: 2.5 mg Atorvastatin Calcium (Atorvastatin Calcium 20 Mg Tablet) 20 mg PO DAILY [facility] Last Admin: 12/13/24 08:02 Dose: 20 mg Bisacodyl (Bisacodyl 10 Mg Supp.Rect) 10 mg [place] BEDTIME PRN PRN Reason: Constipation Last Admin: 11/04/24 20:37 Dose: 10 mg Bupropion HCl (Bupropion Hcl Xl 300 Mg Tab.Er.24h) 300 mg PO DAILY [facility] Last Admin: 12/13/24 08:02 Dose: 300 mg Buspirone HCl (Buspirone Hcl 10 Mg Tablet) 20 mg PO TID [facility] Last Admin: 12/13/24 08:02 Dose: 20 mg Calcium Carbonate (Calcium Carbonate 750 Mg Tab.Chew) 750 mg PO Q4H PRN PRN Reason: Heartburn Last Admin: 11/30/24 21:34 Dose: 750 mg Clonazepam (Clonazepam 0.5 Mg Tablet) 0.25 mg PO BEDTIME [facility] Last Admin: 12/12/24 20:23 Dose: 0.25 mg Clonazepam (Clonazepam Odt 0.125 Mg Tab.Rapdis) 0.25 mg PO DAILY@1430 [facility] Last Admin: 12/12/24 14:35 Dose: 0.25 mg Clonazepam (Clonazepam 0.5 Mg Tablet) 0.25 mg PO DAILY PRN PRN Reason: breakthrough anxiety Last Admin: 12/13/24 09:49 Dose: 0.25 mg Dicyclomine HCl (Dicyclomine Hcl 10 Mg Capsule) 10 mg PO Q4H PRN PRN Reason: abdominal cramping Last Admin: 12/13/24 09:13 Dose: 10 mg Docusate Sodium (Docusate Sodium 100 Mg Capsule) 100 mg PO BID [facility] Last Admin: 12/13/24 08:01 Dose: 100 mg Duloxetine HCl (Duloxetine Hcl 60 Mg Capsule.Dr) 60 mg PO DAILY [facility] Last Admin: 12/13/24 08:03 Dose: 60 mg Fluticasone/Vilanterol (Fluticasone/Vilanterol 100/25 Blst.W.Dev) 1 puff INHALE RDAILY [facility] Last Admin: 12/13/24 08:00 Dose: 1 puff Gabapentin (Gabapentin 100 Mg Capsule) 100 mg PO TID [facility] Last Admin: 12/13/24 08:01 Dose: 100 mg Glipizide (Glipizide Xl 2.5 Mg Tab.Er.24) 2.5 mg PO DAILY [facility] Last Admin: 12/13/24 08:01 Dose: 2.5 mg Guaifenesin (Guaifenesin La 600 Mg Tab.Er.12h) 1,200 mg PO BID PRN PRN Reason: Cough Last Admin: 12/12/24 18:30 Dose: 1,200 mg Lisinopril (Lisinopril 2.5 Mg Tablet) 2.5 mg PO DAILY [facility]; Protocol Last Admin: 12/13/24 08:03 Dose: 2.5 mg Magnesium Hydroxide (Milk Of Magnesia 30 Ml Oral.Susp) 30 ml PO DAILY PRN PRN Reason: Constipation Last Admin: 11/04/24 16:49 Dose: 30 ml Mirtazapine (Mirtazapine 30 Mg Tablet) 30 mg PO BEDTIME [facility] Last Admin: 12/12/24 20:22 Dose: 30 mg Omeprazole (Omeprazole 20 Mg Capsule.Dr) 20 mg PO BID@0630,1630 [facility] Last Admin: 12/13/24 06:11 Dose: 20 mg Ondansetron HCl (Ondansetron Odt 4 Mg Tab.Rapdis) 4 mg TRANSLINGU Q4H PRN PRN Reason: Nausea and Vomiting Last Admin: 12/13/24 07:53 Dose: 4 mg Polyethylene Glycol (Polyethylene Glycol 3350 17 Gm Powd.Pack) 17 gm PO BID [facility] Last Admin: 12/13/24 08:00 Dose: Not Given Pramipexole Dihydrochloride (Pramipexole Di-Hcl 0.125 Mg Tablet) 0.125 mg PO DAILY [facility] Last Admin: 12/13/24 08:00 Dose: 0.125 mg Pyridoxine HCl (Pyridoxine Hcl (Vitamin B6) 50 Mg Tablet) 50 mg PO DAILY [facility] Last Admin: 12/13/24 08:03 Dose: 50 mg Ropinirole HCl (Ropinirole Hcl 2 Mg Tablet) 2 mg PO DAILY@1700 [facility] Last Admin: 12/12/24 17:41 Dose: 2 mg Senna (Sennosides 8.6 Mg Tablet) 17.2 mg PO BEDTIME [facility] On Hold: 11/06/24 16:27 Last Admin: 11/05/24 19:39 Dose: 17.2 mg Simethicone (Simethicone 80 Mg Tab.Chew) 80 mg PO QIDWMHS [facility] Last Admin: 12/13/24 11:39 Dose: 80 mg Sitagliptin Phosphate (Sitagliptin Phosphate 25 Mg Tablet) 25 mg PO DAILY [facility] Last Admin: 12/13/24 08:03 Dose: 25 mg Trazodone HCl (Trazodone Hcl 50 Mg Tablet) 50 mg PO BEDTIME MRX1 PRN PRN Reason: Insomnia Last Admin: 12/11/24 20:56 Dose: 50 mg Allergies Allergies Allergy/AdvReac Type Severity Reaction Status Date / Time ampicillin Allergy Rash Verified 10/20/24 19:28 morphine Allergy Rash Verified 10/20/24 19:28 Penicillins Allergy Rash Verified 10/20/24 19:28 pork derived (porcine) Allergy Vomiting Verified 11/10/24 17:49 Assessment & Plan Assessment & Plan (1) MDD (major depressive disorder), recurrent episode, moderate: Status: Acute Code(s): F33.1 - Major depressive disorder, recurrent, moderate (2) 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 Barreto is a 78 year-old woman with hx of MDD who was assessed by N at request of her son who called 911 after pt had reported suicidal ideation with plan to OD. In the ED, pt adamantly denied suicidal ideation but reports feeling increasingly more depressed due to involuntary, ongoing movement of lower extremities. She attributes her depressed mood and increase anxious mood to RLS. She has also been treated as tardive akathisia, note that she was previously prescribed abilify. It is noted that she may have iron deficiency due to normocytic anemia which can exacerbate RLS. It is unclear which medications for hyperkinetic movements of the legs are actually helpful and furthermore it is not easily to differentiate whether it is tardive akathisia or RLS. She has been on psychotropic medications that are known to cause akathisia such as abilify. She reports subjective sense of restlessness. Involuntary movement seems to be throughout the day. We will have to do trial of medications that target akathisia such as propanolol and ativan versus medications such as pramipexol for RLS (note that in RLS there is an initial relief with dopamine agonist but can make it worse over time). In addition, will try iron deficiency as it is an underlying cause and exacerbating factor in RLS. PLAN 11/14 continue tx. will monitor before making substantial changes every day. 11/15 continue tx. pt somatically preoccupied. 11/16: Continue current management and treatment plan. 11/17: continue current management and treatment plan. 11/18 start buspar 10mg po TID for SHEILA. continue all other meds. 11/19 increase buspar 20mg po TID 11/20 appears calmer, less somatically preoccupied. continue current medications. 11/21 sodium stable. continues to present as less dysphoric, calmer. reports of dizziness (VS not hotn nor orthostatic), ?vertigo, will try low dose of meclizine otherwise will consult hospitalist for further management. 8.2- pt more focused on gi issues- and anxiety/forgetfulness- continue to monitor somatic complaints- dc qid poc 11/25 will lowered ropinirole as it may increasing anxiety, noted that buspar was lowered, do not think this medication was causing fogginess as pt appeared much calmer since we added buspar. She was started on low dose clonazepam. 11/26 continue tx. received one time dose xanax, but reported feeling overly sedated (although did not appear sedated) 11/27 somatically p8: Continue current regimen and plansreoccupied, no change in medications. 11/29 continue tx. 11/30: Continue current regimen and plans 12/01: Continue current plans and regimen 12/02 increase buspar 20mg po TID. 12/03: reports depression not improving, c/o feeling low energy and motivation, saying she needs a pickup driver. start wellbutrin XL 150 daily tomorrow for depression. also c/o anxiety-provoking and nocturnally loud peer. schedule klonopin 0.25 QHS for insomnia. otherwise continue current mgmt. awaiting placement. 12/04: slept well last night, started wellbutrin this morning without incident. continue current mgmt. will be discharging to [facility]. 12/05: slept well. c/o anxiety at 3-330 in the afternoon. pt to ask for klonopin PRN at 2-230. trend anxiety, T/C DC of wellbutrin if anxiety seems reliably increased since starting it. dispo next week likely. 12/06: anxious. schedule klonopin 0.25 mg Qdaily at 1430 per pt request. otherwise continue current mgmt. 12/07: anxious and depressed. c/o insomnia. will give wellbutrin a few more days to see if insomnia subsides and mood improves. per staf, stable and uneventful presentation. 12/08: depressed. agreeable to increase wellbutrin to 300 mg as of tomorrow. otherwise continue current mgmt. sleeping well. 12/09: started wellbutrin 300 today. c/o URI Sx, start guaifenesin. otherwise continue current mgmt. 12/10: coughin much eves/NOC per staff. pt c/o not happy, cough, and poor sleep. continue mucinex and mental health Tx plan otherwise. 12/11/24: Patient appeared to slept for 8 hours, was medication compliant but refused the MiraLax. Denies side effects. She is observed watching TV in common area. Reported that she feel anxious and depressed. She is worry about when she is leaving as she is going to stay by herself. I am depressed . Self reports that she did not sleep well last night as roommate waking her up at night telling her that she saw dogs. She reports normal stomach pain. She would hope to see the GI doctor after discharge. She reported that she will be discharged on 12/17 but not sure the name of the facility or where it is located. Denies safety concerns, denies hallucinations. No coughing observed this morning. 12/12: c/o unremitting depression, saying she does not want to live like this. interested in ECT, educated re the procedure. obtain risk strat and EKG, discuss in rounds tomorrow morning. otherwise continue current mgmt. 12/13: continues to push for ECT. seen by hospitalist, no relative contraindications to the procedure. case d/w patient's daughter chantelle as well, who avers that pt has been in this state for a long time, it's only getting worse, and medications have not been helpful. johanna supports this trial on the wishes of her mother and MD's recommendation. ECT ordered, will get pt on the schedule as soon as possible. Reason for continued inpatient stay Substantial Risk for: inability to function Time Spent With Patient Time: Total time managing care of this patient today __35__ minutes.
[2024-12-13] MEDS: clonazePAM ODT 0.125 MG TAB.RAPDIS 0.25 MG PO ×2 (13:56→20:09)
[2024-12-13 20:00] VITALS: BP 109/62; PULSE 88; RESP 16; TEMP 36.3; O2SAT 93
[2024-12-13] MEDS: guaiFENesin LA 600 MG TAB.ER.12H 1200 MG PO (20:08)
[2024-12-14 06:27] LABS: Glucose, Whole Blood 150 mg/dL (60-115)
[2024-12-14 08:00] VITALS: BP 117/63; PULSE 91; RESP 18; TEMP 36.4; O2SAT 93
[2024-12-14 08:03] VITALS: BP 117/63
[2024-12-14] MEDS: Albuterol Sulfate 90 MCG 8 GM INHALER 2 PUFF INHALE (08:03)
[2024-12-14] MEDS: Fluticasone/Vilanterol 100/25 BLST.W.DEV 1 PUFF INHALE (08:03)
[2024-12-14] MEDS: buPROPion HCl XL 300 MG TAB.ER.24H PO (08:04)
[2024-12-14] MEDS: guaiFENesin LA 600 MG TAB.ER.12H 1200 MG PO (09:27)
--- NOTE | 2024-12-14 10:34 | HO.PSYCHPN ---
Subjective Subjective Date of Service: 12/14/24 Reason For Visit: SI with plan to OD on medications, increased anxie Interim History: Met with pt. Reviewed with the team. Productive cough ongoing, O2 saturations decreased to 93-94% Team report Left base diminished, R rhonchi, CXR, COVID, RSV ordered. Seen by hospitalist-Antibiotic course initiated. Appearing to be pneumonia like illness. Team requests to change POC to hs ECT scheduled for next week Medication Compliance: Yes Side effects from medications: No Attending Groups: Intermittent Review of Systems as noted Review of Systems Review of Systems pneumonia like illness-cough, lowered oxygen saturations Mental Status Exam Mental Status Exam Patient Appearance: Appropriate Patient Orientation: Person, Place and Situation Level of Consciousness: Alert Patient Behavior: Talkative Mood Description: Anxious Affect Description: Anxious Patient Cognition Impaired: Yes Ability to Follow Directions: Fair Speech Pattern: Spontaneous Speech Memory Description: Remote Impaired Hallucinations: None Delusions: Not Present Thought Process: Distracted Thought Content: positive for Circumstantial Depressive Symptoms: Increased Fatigue and Loss of Energy Judgement: Poor Diagnostics Vital Signs (24Hr): Vital Signs - 24 hr 12/13/24 20:00 12/14/24 08:00 12/14/24 08:03 Temperature 97.4 F 97.5 F Pulse Rate 88 91 Respiratory Rate 16 18 Blood Pressure 109/62 117/63 117/63 Pulse Oximetry 93 93 Oxygen Delivery Method Room Air Room Air BMI result Body Mass Index 22.9 Labs 11/02/24 20:14 12/13/24 12:13 Labs: Laboratory Results - last 48 hr 12/13/24 12/13/24 12/14/24 06:14 12:13 06:21 Sodium 135 Potassium 4.4 Chloride 103 Carbon Dioxide 20 L Anion Gap 16 BUN 32 H Creatinine 1.39 Estim Creat Clear Calc 24.1 Estimated GFR 37 POC Glucose 151 H 150 H Random Glucose 351 H* Calcium 9.3 Imaging Radiology Impressions: ITS Impressions Hip/Pelvis X-Ray 11/05/24 11:00 IMPRESSION: Unremarkable examination of the left hip. Electronically signed by: Sam Saini MD 11/05/2024 11:13 AM EDT RP KUB X-Ray 11/06/24 09:20 IMPRESSION: Large amount of stool throughout the colon. Electronically signed by: Sam Saini MD 11/06/2024 09:34 AM EDT RP Head CT 11/08/24 14:58 IMPRESSION: Left frontal soft tissue swelling. No acute intracranial abnormality. Electronically signed by: Sam Saini MD 11/08/2024 03:18 PM EDT RP Medications Medications Current Medications Acetaminophen (Acetaminophen 325 Mg Tablet) 650 mg PO Q6H PRN PRN Reason: Headache/Pain, Scale 1-10 Last Admin: 12/13/24 20:08 Dose: 650 mg Al Hydroxide/Mg Hydroxide (Magnesium Hydrox/Alum Hydrox 30 Ml Oral.Susp) 30 ml PO Q6H PRN PRN Reason: Heartburn/Nausea Last Admin: 12/12/24 15:20 Dose: 30 ml Albuterol Sulfate (Albuterol Sulfate 90 Mcg 8 Gm Inhaler) 2 puff INHALE Q4H PRN PRN Reason: Shortness Of Breath Or Wheezin Last Admin: 12/14/24 08:03 Dose: 2 puff Amlodipine Besylate (Amlodipine Besylate 2.5 Mg Tablet) 2.5 mg PO DAILY [facility]; Protocol Last Admin: 12/14/24 08:04 Dose: 2.5 mg Atorvastatin Calcium (Atorvastatin Calcium 20 Mg Tablet) 20 mg PO DAILY [facility] Last Admin: 12/14/24 08:04 Dose: 20 mg Bisacodyl (Bisacodyl 10 Mg Supp.Rect) 10 mg [place] BEDTIME PRN PRN Reason: Constipation Last Admin: 11/04/24 20:37 Dose: 10 mg Bupropion HCl (Bupropion Hcl Xl 300 Mg Tab.Er.24h) 300 mg PO DAILY [facility] Last Admin: 12/14/24 08:04 Dose: 300 mg Buspirone HCl (Buspirone Hcl 10 Mg Tablet) 20 mg PO TID [facility] Last Admin: 12/14/24 08:04 Dose: 20 mg Calcium Carbonate (Calcium Carbonate 750 Mg Tab.Chew) 750 mg PO Q4H PRN PRN Reason: Heartburn Last Admin: 11/30/24 21:34 Dose: 750 mg Clonazepam (Clonazepam Odt 0.125 Mg Tab.Rapdis) 0.25 mg PO DAILY@1430 [facility] Last Admin: 12/13/24 13:56 Dose: 0.25 mg Clonazepam (Clonazepam Odt 0.125 Mg Tab.Rapdis) 0.25 mg PO BEDTIME [facility] Last Admin: 12/13/24 20:09 Dose: 0.25 mg Clonazepam (Clonazepam Odt 0.125 Mg Tab.Rapdis) 0.25 mg PO DAILY PRN PRN Reason: severe anxiety Dicyclomine HCl (Dicyclomine Hcl 10 Mg Capsule) 10 mg PO Q4H PRN PRN Reason: abdominal cramping Last Admin: 12/13/24 09:13 Dose: 10 mg Docusate Sodium (Docusate Sodium 100 Mg Capsule) 100 mg PO BID [facility] Last Admin: 12/14/24 08:04 Dose: 100 mg Duloxetine HCl (Duloxetine Hcl 60 Mg Capsule.Dr) 60 mg PO DAILY [facility] Last Admin: 12/14/24 08:03 Dose: 60 mg Fluticasone/Vilanterol (Fluticasone/Vilanterol 100/25 Blst.W.Dev) 1 puff INHALE RDAILY [facility] Last Admin: 12/14/24 08:03 Dose: 1 puff Gabapentin (Gabapentin 100 Mg Capsule) 100 mg PO TID [facility] Last Admin: 12/14/24 08:03 Dose: 100 mg Glipizide (Glipizide Xl 2.5 Mg Tab.Er.24) 2.5 mg PO DAILY [facility] Last Admin: 12/14/24 08:04 Dose: 2.5 mg Guaifenesin (Guaifenesin La 600 Mg Tab.Er.12h) 1,200 mg PO BID PRN PRN Reason: Cough Last Admin: 12/14/24 09:27 Dose: 1,200 mg Lisinopril (Lisinopril 2.5 Mg Tablet) 2.5 mg PO DAILY [facility]; Protocol Last Admin: 12/14/24 08:03 Dose: 2.5 mg Magnesium Hydroxide (Milk Of Magnesia 30 Ml Oral.Susp) 30 ml PO DAILY PRN PRN Reason: Constipation Last Admin: 11/04/24 16:49 Dose: 30 ml Mirtazapine (Mirtazapine 30 Mg Tablet) 30 mg PO BEDTIME [facility] Last Admin: 12/13/24 20:08 Dose: 30 mg Omeprazole (Omeprazole 20 Mg Capsule.Dr) 20 mg PO BID@0630,1630 [facility] Last Admin: 12/14/24 06:19 Dose: 20 mg Ondansetron HCl (Ondansetron Odt 4 Mg Tab.Rapdis) 4 mg TRANSLINGU Q4H PRN PRN Reason: Nausea and Vomiting Last Admin: 12/13/24 07:53 Dose: 4 mg Polyethylene Glycol (Polyethylene Glycol 3350 17 Gm Powd.Pack) 17 gm PO BID [facility] Last Admin: 12/14/24 08:03 Dose: 17 gm Pramipexole Dihydrochloride (Pramipexole Di-Hcl 0.125 Mg Tablet) 0.125 mg PO DAILY [facility] Last Admin: 12/14/24 08:05 Dose: 0.125 mg Pyridoxine HCl (Pyridoxine Hcl (Vitamin B6) 50 Mg Tablet) 50 mg PO DAILY [facility] Last Admin: 12/14/24 08:05 Dose: 50 mg Ropinirole HCl (Ropinirole Hcl 2 Mg Tablet) 2 mg PO DAILY@1700 [facility] Last Admin: 12/13/24 16:26 Dose: 2 mg Senna (Sennosides 8.6 Mg Tablet) 17.2 mg PO BEDTIME [facility] On Hold: 11/06/24 16:27 Last Admin: 11/05/24 19:39 Dose: 17.2 mg Simethicone (Simethicone 80 Mg Tab.Chew) 80 mg PO QIDWMHS [facility] Last Admin: 12/14/24 08:03 Dose: 80 mg Sitagliptin Phosphate (Sitagliptin Phosphate 25 Mg Tablet) 25 mg PO DAILY [facility] Last Admin: 12/14/24 08:04 Dose: 25 mg Trazodone HCl (Trazodone Hcl 50 Mg Tablet) 50 mg PO BEDTIME MRX1 PRN PRN Reason: Insomnia Last Admin: 12/11/24 20:56 Dose: 50 mg Allergies Allergies Allergy/AdvReac Type Severity Reaction Status Date / Time ampicillin Allergy Rash Verified 10/20/24 19:28 morphine Allergy Rash Verified 10/20/24 19:28 Penicillins Allergy Rash Verified 10/20/24 19:28 pork derived (porcine) Allergy Vomiting Verified 11/10/24 17:49 Assessment & Plan Assessment & Plan (1) MDD (major depressive disorder), recurrent episode, moderate: Status: Acute Code(s): F33.1 - Major depressive disorder, recurrent, moderate (2) 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 Barreto is a 78 year-old woman with hx of MDD who was assessed by N at request of her son who called 911 after pt had reported suicidal ideation with plan to OD. In the ED, pt adamantly denied suicidal ideation but reports feeling increasingly more depressed due to involuntary, ongoing movement of lower extremities. She attributes her depressed mood and increase anxious mood to RLS. She has also been treated as tardive akathisia, note that she was previously prescribed abilify. It is noted that she may have iron deficiency due to normocytic anemia which can exacerbate RLS. It is unclear which medications for hyperkinetic movements of the legs are actually helpful and furthermore it is not easily to differentiate whether it is tardive akathisia or RLS. She has been on psychotropic medications that are known to cause akathisia such as abilify. She reports subjective sense of restlessness. Involuntary movement seems to be throughout the day. We will have to do trial of medications that target akathisia such as propanolol and ativan versus medications such as pramipexol for RLS (note that in RLS there is an initial relief with dopamine agonist but can make it worse over time). In addition, will try iron deficiency as it is an underlying cause and exacerbating factor in RLS. PLAN 11/14 continue tx. will monitor before making substantial changes every day. 11/15 continue tx. pt somatically preoccupied. 11/16: Continue current management and treatment plan. 11/17: continue current management and treatment plan. 11/18 start buspar 10mg po TID for SHEILA. continue all other meds. 11/19 increase buspar 20mg po TID 11/20 appears calmer, less somatically preoccupied. continue current medications. 11/21 sodium stable. continues to present as less dysphoric, calmer. reports of dizziness (VS not hotn nor orthostatic), ?vertigo, will try low dose of meclizine otherwise will consult hospitalist for further management. 8.2- pt more focused on gi issues- and anxiety/forgetfulness- continue to monitor somatic complaints- dc qid poc 11/25 will lowered ropinirole as it may increasing anxiety, noted that buspar was lowered, do not think this medication was causing fogginess as pt appeared much calmer since we added buspar. She was started on low dose clonazepam. 11/26 continue tx. received one time dose xanax, but reported feeling overly sedated (although did not appear sedated) 11/27 somatically p8: Continue current regimen and plansreoccupied, no change in medications. 11/29 continue tx. 11/30: Continue current regimen and plans 12/01: Continue current plans and regimen 12/02 increase buspar 20mg po TID. 12/03: reports depression not improving, c/o feeling low energy and motivation, saying she needs a pickle processor. start wellbutrin XL 150 daily tomorrow for depression. also c/o anxiety-provoking and nocturnally loud peer. schedule klonopin 0.25 QHS for insomnia. otherwise continue current mgmt. awaiting placement. 12/04: slept well last night, started wellbutrin this morning without incident. continue current mgmt. will be discharging to [facility]. 12/05: slept well. c/o anxiety at 3-330 in the afternoon. pt to ask for klonopin PRN at 2-230. trend anxiety, T/C DC of wellbutrin if anxiety seems reliably increased since starting it. dispo next week likely. 12/06: anxious. schedule klonopin 0.25 mg Qdaily at 1430 per pt request. otherwise continue current mgmt. 12/07: anxious and depressed. c/o insomnia. will give wellbutrin a few more days to see if insomnia subsides and mood improves. per staf, stable and uneventful presentation. 12/08: depressed. agreeable to increase wellbutrin to 300 mg as of tomorrow. otherwise continue current mgmt. sleeping well. 12/09: started wellbutrin 300 today. c/o URI Sx, start guaifenesin. otherwise continue current mgmt. 12/10: coughin much eves/NOC per staff. pt c/o not happy, cough, and poor sleep. continue mucinex and mental health Tx plan otherwise. 12/11/24: Patient appeared to slept for 8 hours, was medication compliant but refused the MiraLax. Denies side effects. She is observed watching TV in common area. Reported that she feel anxious and depressed. She is worry about when she is leaving as she is going to stay by herself. I am depressed . Self reports that she did not sleep well last night as roommate waking her up at night telling her that she saw dogs. She reports normal stomach pain. She would hope to see the GI doctor after discharge. She reported that she will be discharged on 12/17 but not sure the name of the facility or where it is located. Denies safety concerns, denies hallucinations. No coughing observed this morning. 12/12: c/o unremitting depression, saying she does not want to live like this. interested in ECT, educated re the procedure. obtain risk strat and EKG, discuss in rounds tomorrow morning. otherwise continue current mgmt. 12/13: continues to push for ECT. seen by hospitalist, no relative contraindications to the procedure. case d/w patient's daughter chantelle as well, who avers that pt has been in this state for a long time, it's only getting worse, and medications have not been helpful. johanna supports this trial on the wishes of her mother and MD's recommendation. ECT ordered, will get pt on the schedule as soon as possible. 12/14: Cough-productive, O2 sats are lower , CXR positive. Seen by hospitalist. Antibiotics initiated, R/O pneumonia Reason for continued inpatient stay Substantial Risk for: med/psych decompensation Time Spent With Patient Time: Total time managing care of this patient today ____ minutes.
--- NOTE | 2024-12-14 13:38 | PM.EVENT ---
Event Note Date of Service: 12/14/24 Event Note: seen and examined this morning after CXR obtained shows focal area of pneumonitis. Says cough is better today (yesterday she told me she was not coughing) and she feels good. No sob, no HENRIQUEZ. No fever or chills. She denies coughing, choking or difficulty swallowing when eating. Afebrile, no hypoxia. But she did have episode of tachycardia yesterday and per staff she is coughing frequently more then she is letting on. As patient is symptomatic, will treat with a course of doxycycline for possible pneumonia Time Spent With Patient Time: Total time managing care of this patient today ____ minutes.
[2024-12-14] MEDS: clonazePAM ODT 0.125 MG TAB.RAPDIS 0.25 MG PO ×2 (14:33→20:46)
--- NOTE | 2024-12-14 18:05 | PC.NURSE ---
Pt spo2 this morning 93% on room air, denies SOB, no increased WOB noted. PRN inhaler given with good effect in addition to PRN mucinex. Pt had CXR and was eval'd by hospitalist, doxycycline started and first dose administered.
--- NOTE | 2024-12-14 18:14 | PC.NURSE ---
Pt had one episode of vomiting immediately after dinner, zofran adminstered with good effect. Pt with diarrhea at this time, incontinent. States this has never happened before . Pt cleaned up with staff and assisted to change.
[2024-12-14 20:00] VITALS: BP 126/60; PULSE 101; RESP 18; TEMP 36.7; O2SAT 93
[2024-12-15 06:27] LABS: Glucose, Whole Blood 158 mg/dL (60-115)
[2024-12-15 08:00] VITALS: BP 136/66; PULSE 96; RESP 16; TEMP 36.3; O2SAT 94
[2024-12-15] MEDS: buPROPion HCl XL 300 MG TAB.ER.24H PO (08:19)
[2024-12-15] MEDS: Fluticasone/Vilanterol 100/25 BLST.W.DEV 1 PUFF INHALE (08:19)
--- NOTE | 2024-12-15 13:22 | HO.PSYCHPN ---
Subjective Subjective Date of Service: 12/15/24 Reason For Visit: SI with plan to OD on medications, increased anxie Interim History: Pt seen discussed with team. Poor tolerance of doxycycline with vomiting last evening and reported diarrhea today. Consulted with Abeba Chiu of Hospitalist team who will change to agent to Ceftin Medication Compliance: Yes Side effects from medications: Yes Attending Groups: Intermittent Review of Systems as noted Review of Systems Review of Systems GI SE of antibiotic Mental Status Exam Mental Status Exam Patient Appearance: Fatigued Patient Orientation: Person and Situation Level of Consciousness: Alert Patient Behavior: Talkative and Fatigued Mood Description: Constricted and Depressed Affect Description: Constricted Patient Cognition Impaired: Yes Ability to Follow Directions: Fair Speech Pattern: Spontaneous Speech Memory Description: Remote Impaired Hallucinations: None Delusions: Not Present Thought Process: Rumination Thought Content: positive for Circumstantial Judgement: Fair Diagnostics Vital Signs (24Hr): Vital Signs - 24 hr 12/14/24 20:00 12/15/24 08:00 Temperature 98.1 F 97.3 F Pulse Rate 101 H 96 Respiratory Rate 18 16 Blood Pressure 126/60 136/66 Pulse Oximetry 93 94 Oxygen Delivery Method Room Air Room Air BMI result Body Mass Index 22.9 Labs 11/02/24 20:14 12/13/24 12:13 Labs: Laboratory Results - last 48 hr 12/14/24 12/15/24 06:21 06:11 POC Glucose 150 H 158 H Imaging Radiology Impressions: ITS Impressions Hip/Pelvis X-Ray 11/05/24 11:00 IMPRESSION: Unremarkable examination of the left hip. Electronically signed by: Sam Saini MD 11/05/2024 11:13 AM EDT RP KUB X-Ray 11/06/24 09:20 IMPRESSION: Large amount of stool throughout the colon. Electronically signed by: Sam Saini MD 11/06/2024 09:34 AM EDT RP Head CT 11/08/24 14:58 IMPRESSION: Left frontal soft tissue swelling. No acute intracranial abnormality. Electronically signed by: Sam Saini MD 11/08/2024 03:18 PM EDT RP Medications Medications Current Medications Acetaminophen (Acetaminophen 325 Mg Tablet) 650 mg PO Q6H PRN PRN Reason: Headache/Pain, Scale 1-10 Last Admin: 08/22/25 20:08 Dose: 650 mg Al Hydroxide/Mg Hydroxide (Magnesium Hydrox/Alum Hydrox 30 Ml Oral.Susp) 30 ml PO Q6H PRN PRN Reason: Heartburn/Nausea Last Admin: 12/12/24 15:20 Dose: 30 ml Albuterol Sulfate (Albuterol Sulfate 90 Mcg 8 Gm Inhaler) 2 puff INHALE Q4H PRN PRN Reason: Shortness Of Breath Or Wheezin Last Admin: 12/14/24 08:03 Dose: 2 puff Amlodipine Besylate (Amlodipine Besylate 2.5 Mg Tablet) 2.5 mg PO DAILY [facility]; Protocol Last Admin: 12/15/24 08:19 Dose: 2.5 mg Atorvastatin Calcium (Atorvastatin Calcium 20 Mg Tablet) 20 mg PO DAILY [facility] Last Admin: 12/15/24 08:20 Dose: 20 mg Bisacodyl (Bisacodyl 10 Mg Supp.Rect) 10 mg FL BEDTIME PRN PRN Reason: Constipation Last Admin: 11/04/24 20:37 Dose: 10 mg Bupropion HCl (Bupropion Hcl Xl 300 Mg Tab.Er.24h) 300 mg PO DAILY [facility] Last Admin: 12/15/24 08:19 Dose: 300 mg Buspirone HCl (Buspirone Hcl 10 Mg Tablet) 20 mg PO TID [facility] Last Admin: 12/15/24 08:20 Dose: 20 mg Calcium Carbonate (Calcium Carbonate 750 Mg Tab.Chew) 750 mg PO Q4H PRN PRN Reason: Heartburn Last Admin: 11/30/24 21:34 Dose: 750 mg Clonazepam (Clonazepam Odt 0.125 Mg Tab.Rapdis) 0.25 mg PO DAILY@1430 [facility] Last Admin: 12/14/24 14:33 Dose: 0.25 mg Clonazepam (Clonazepam Odt 0.125 Mg Tab.Rapdis) 0.25 mg PO BEDTIME [facility] Last Admin: 12/14/24 20:46 Dose: 0.25 mg Clonazepam (Clonazepam Odt 0.125 Mg Tab.Rapdis) 0.25 mg PO DAILY PRN PRN Reason: severe anxiety Dicyclomine HCl (Dicyclomine Hcl 10 Mg Capsule) 10 mg PO Q4H PRN PRN Reason: abdominal cramping Last Admin: 12/13/24 09:13 Dose: 10 mg Docusate Sodium (Docusate Sodium 100 Mg Capsule) 100 mg PO BID [facility] Last Admin: 12/15/24 08:21 Dose: Not Given Doxycycline Monohydrate (Doxycycline Monohydrate 100 Mg Capsule) 100 mg PO BID [facility] Stop: 12/19/24 13:49 Last Admin: 12/15/24 08:20 Dose: 100 mg Duloxetine HCl (Duloxetine Hcl 60 Mg Capsule.Dr) 60 mg PO DAILY [facility] Last Admin: 12/15/24 08:19 Dose: 60 mg Fluticasone/Vilanterol (Fluticasone/Vilanterol 100/25 Blst.W.Dev) 1 puff INHALE RDAILY [facility] Last Admin: 12/15/24 08:19 Dose: 1 puff Gabapentin (Gabapentin 100 Mg Capsule) 100 mg PO TID [facility] Last Admin: 12/15/24 08:20 Dose: 100 mg Glipizide (Glipizide Xl 2.5 Mg Tab.Er.24) 2.5 mg PO DAILY [facility] Last Admin: 12/15/24 08:20 Dose: 2.5 mg Guaifenesin (Guaifenesin La 600 Mg Tab.Er.12h) 1,200 mg PO BID PRN PRN Reason: Cough Last Admin: 12/14/24 09:27 Dose: 1,200 mg Lisinopril (Lisinopril 2.5 Mg Tablet) 2.5 mg PO DAILY [facility]; Protocol Last Admin: 12/15/24 08:19 Dose: 2.5 mg Magnesium Hydroxide (Milk Of Magnesia 30 Ml Oral.Susp) 30 ml PO DAILY PRN PRN Reason: Constipation Last Admin: 11/04/24 16:49 Dose: 30 ml Mirtazapine (Mirtazapine 30 Mg Tablet) 30 mg PO BEDTIME [facility] Last Admin: 12/14/24 20:47 Dose: 30 mg Omeprazole (Omeprazole 20 Mg Capsule.Dr) 20 mg PO BID@0630,1630 [facility] Last Admin: 12/15/24 06:08 Dose: 20 mg Ondansetron HCl (Ondansetron Odt 4 Mg Tab.Rapdis) 4 mg TRANSLINGU Q4H PRN PRN Reason: Nausea and Vomiting Last Admin: 12/14/24 17:17 Dose: 4 mg Polyethylene Glycol (Polyethylene Glycol 3350 17 Gm Powd.Pack) 17 gm PO BID [facility] Last Admin: 12/15/24 08:21 Dose: Not Given Pramipexole Dihydrochloride (Pramipexole Di-Hcl 0.125 Mg Tablet) 0.125 mg PO DAILY [facility] Last Admin: 12/15/24 08:20 Dose: 0.125 mg Pyridoxine HCl (Pyridoxine Hcl (Vitamin B6) 50 Mg Tablet) 50 mg PO DAILY [facility] Last Admin: 12/15/24 08:20 Dose: 50 mg Ropinirole HCl (Ropinirole Hcl 2 Mg Tablet) 2 mg PO DAILY@1700 [facility] Last Admin: 12/14/24 16:21 Dose: 2 mg Senna (Sennosides 8.6 Mg Tablet) 17.2 mg PO BEDTIME [facility] On Hold: 11/06/24 16:27 Last Admin: 11/05/24 19:39 Dose: 17.2 mg Simethicone (Simethicone 80 Mg Tab.Chew) 80 mg PO QIDWMHS [facility] Last Admin: 12/15/24 12:10 Dose: 80 mg Sitagliptin Phosphate (Sitagliptin Phosphate 25 Mg Tablet) 25 mg PO DAILY [facility] Last Admin: 12/15/24 08:20 Dose: 25 mg Trazodone HCl (Trazodone Hcl 50 Mg Tablet) 50 mg PO BEDTIME MRX1 PRN PRN Reason: Insomnia Last Admin: 12/11/24 20:56 Dose: 50 mg Allergies Allergies Allergy/AdvReac Type Severity Reaction Status Date / Time ampicillin Allergy Rash Verified 10/20/24 19:28 morphine Allergy Rash Verified 10/20/24 19:28 Penicillins Allergy Rash Verified 10/20/24 19:28 pork derived (porcine) Allergy Vomiting Verified 11/10/24 17:49 Assessment & Plan Assessment & Plan (1) MDD (major depressive disorder), recurrent episode, moderate: Status: Acute Code(s): F33.1 - Major depressive disorder, recurrent, moderate (2) 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 Barreto is a 78 year-old woman with hx of MDD who was assessed by N at request of her son who called 911 after pt had reported suicidal ideation with plan to OD. In the ED, pt adamantly denied suicidal ideation but reports feeling increasingly more depressed due to involuntary, ongoing movement of lower extremities. She attributes her depressed mood and increase anxious mood to RLS. She has also been treated as tardive akathisia, note that she was previously prescribed abilify. It is noted that she may have iron deficiency due to normocytic anemia which can exacerbate RLS. It is unclear which medications for hyperkinetic movements of the legs are actually helpful and furthermore it is not easily to differentiate whether it is tardive akathisia or RLS. She has been on psychotropic medications that are known to cause akathisia such as abilify. She reports subjective sense of restlessness. Involuntary movement seems to be throughout the day. We will have to do trial of medications that target akathisia such as propanolol and ativan versus medications such as pramipexol for RLS (note that in RLS there is an initial relief with dopamine agonist but can make it worse over time). In addition, will try iron deficiency as it is an underlying cause and exacerbating factor in RLS. PLAN 11/14 continue tx. will monitor before making substantial changes every day. 11/15 continue tx. pt somatically preoccupied. 11/16: Continue current management and treatment plan. 11/17: continue current management and treatment plan. 11/18 start buspar 10mg po TID for SHEILA. continue all other meds. 11/19 increase buspar 20mg po TID 11/20 appears calmer, less somatically preoccupied. continue current medications. 11/21 sodium stable. continues to present as less dysphoric, calmer. reports of dizziness (VS not hotn nor orthostatic), ?vertigo, will try low dose of meclizine otherwise will consult hospitalist for further management. 8.2- pt more focused on gi issues- and anxiety/forgetfulness- continue to monitor somatic complaints- dc qid poc 11/25 will lowered ropinirole as it may increasing anxiety, noted that buspar was lowered, do not think this medication was causing fogginess as pt appeared much calmer since we added buspar. She was started on low dose clonazepam. 11/26 continue tx. received one time dose xanax, but reported feeling overly sedated (although did not appear sedated) 11/27 somatically p8/: Continue current regimen and plansreoccupied, no change in medications. 11/29 continue tx. 11/30: Continue current regimen and plans 12/01: Continue current plans and regimen 12/02 increase buspar 20mg po TID. 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 start wellbutrin XL 150 daily tomorrow for depression. also c/o anxiety-provoking and nocturnally loud peer. schedule klonopin 0.25 QHS for insomnia. otherwise continue current mgmt. awaiting placement. 12/04: slept well last night, started wellbutrin this morning without incident. continue current mgmt. will be discharging to [facility]. 12/05: slept well. c/o anxiety at 3-330 in the afternoon. pt to ask for klonopin PRN at 2-230. trend anxiety, T/C DC of wellbutrin if anxiety seems reliably increased since starting it. dispo next week likely. 12/06: anxious. schedule klonopin 0.25 mg Qdaily at 1430 per pt request. otherwise continue current mgmt. 12/07: anxious and depressed. c/o insomnia. will give wellbutrin a few more days to see if insomnia subsides and mood improves. per staf, stable and uneventful presentation. 12/08: depressed. agreeable to increase wellbutrin to 300 mg as of tomorrow. otherwise continue current mgmt. sleeping well. 12/09: started wellbutrin 300 today. c/o URI Sx, start guaifenesin. otherwise continue current mgmt. 12/10: coughin much eves/NOC per staff. pt c/o not happy, cough, and poor sleep. continue mucinex and mental health Tx plan otherwise. 12/11/24: Patient appeared to slept for 8 hours, was medication compliant but refused the MiraLax. Denies side effects. She is observed watching TV in common area. Reported that she feel anxious and depressed. She is worry about when she is leaving as she is going to stay by herself. I am depressed . Self reports that she did not sleep well last night as roommate waking her up at night telling her that she saw dogs. She reports normal stomach pain. She would hope to see the GI doctor after discharge. She reported that she will be discharged on 12/17 but not sure the name of the facility or where it is located. Denies safety concerns, denies hallucinations. No coughing observed this morning. 12/12: c/o unremitting depression, saying she does not want to live like this. interested in ECT, educated re the procedure. obtain risk strat and EKG, discuss in rounds tomorrow morning. otherwise continue current mgmt. 12/13: continues to push for ECT. seen by hospitalist, no relative contraindications to the procedure. case d/w patient's daughter chantelle as well, who avers that pt has been in this state for a long time, it's only getting worse, and medications have not been helpful. johanna supports this trial on the wishes of her mother and MD's recommendation. ECT ordered, will get pt on the schedule as soon as possible. 12/14: Cough-productive, O2 sats are lower , CXR positive. Seen by hospitalist. Antibiotics initiated, R/O pneumonia 12/15: Pt unable to tolerate doxycycline. Hospitalist will change to Ceftin Reason for continued inpatient stay Substantial Risk for: med/psych decompensation Time Spent With Patient Time: Total time managing care of this patient today ____ minutes.
[2024-12-15] MEDS: clonazePAM ODT 0.125 MG TAB.RAPDIS 0.25 MG PO ×2 (15:05→21:12)
[2024-12-15 20:00] VITALS: BP 123/69; PULSE 93; RESP 16; TEMP 36.4; O2SAT 95
[2024-12-15] MEDS: guaiFENesin LA 600 MG TAB.ER.12H 1200 MG PO (21:10)
[2024-12-15 21:38] LABS: Glucose, Whole Blood 106 mg/dL (60-115)
[2024-12-16 06:36] VITALS: BP 124/61; PULSE 99; RESP 16; TEMP 36.5; O2SAT 93
[2024-12-16 06:43] VITALS: PULSE 93; RESP 18; TEMP 36.3; O2SAT 91
[2024-12-16 06:49] LABS: Glucose, Whole Blood 194 mg/dL (60-115)
[2024-12-16] MEDS: Albuterol Sulfate (0.083%) 2.5 MG/3 ML VIAL.NEB INHALE (07:11)
[2024-12-16 07:15] VITALS: PULSE 90; RESP 16; O2SAT 95
[2024-12-16 08:45] VITALS: BP 155/70; PULSE 74; RESP 16; TEMP 36.4; O2SAT 96
[2024-12-16] MEDS: buPROPion HCl XL 300 MG TAB.ER.24H PO (09:14)
[2024-12-16] MEDS: Fluticasone/Vilanterol 100/25 BLST.W.DEV 1 PUFF INHALE (09:15)
--- NOTE | 2024-12-16 10:21 | P.PNPSI_ITS ---
Subjective Subjective Date of Service: 12/16/24 Reason For Visit: SI with plan to OD on medications, increased anxie Interim History: appears brighter this morning, allows her mood is slightly improved. no ECT today due to having had januvia this morning, also pulmonary Sx requiring updraft Tx. per staff, eating. visible. +dep a lot. sent to ECT this morning. Mental Status Exam Mental Status Exam Narrative: She is alert, pleasant and cooperative. Speech is normal. Moderate eye contact. Affect is appropriate and contained. anxiety and depression present. No acute signs of psychosis. Cognitively impaired. Judgment is impaired Diagnostics Vital Signs (24Hr): Vital Signs - 24 hr 12/15/24 20:00 12/16/24 06:36 12/16/24 06:43 Temperature 97.5 F 97.7 F 97.3 F Pulse Rate 93 99 93 Respiratory Rate 16 16 18 Blood Pressure 123/69 124/61 Pulse Oximetry 95 93 91 L Oxygen Delivery Method Room Air Room Air Room Air 12/16/24 07:15 12/16/24 08:45 Temperature 97.6 F Pulse Rate 90 74 Respiratory Rate 16 16 Blood Pressure 155/70 H Pulse Oximetry 96 Oxygen Delivery Method Room Air BMI result Body Mass Index 22.9 Labs 11/02/24 20:14 12/13/24 12:13 Labs: Laboratory Results - last 48 hr 12/15/24 12/15/24 12/16/24 06:11 21:16 06:45 POC Glucose 158 H 106 194 H Imaging Radiology Impressions: ITS Impressions Hip/Pelvis X-Ray 11/05/24 11:00 IMPRESSION: Unremarkable examination of the left hip. Electronically signed by: Sam Saini MD 11/05/2024 11:13 AM EDT RP KUB X-Ray 11/06/24 09:20 IMPRESSION: Large amount of stool throughout the colon. Electronically signed by: Sam Saini MD 11/06/2024 09:34 AM EDT RP Head CT 11/08/24 14:58 IMPRESSION: Left frontal soft tissue swelling. No acute intracranial abnormality. Electronically signed by: Sam Saini MD 11/08/2024 03:18 PM EDT RP Medications Medications Current Medications Acetaminophen (Acetaminophen 325 Mg Tablet) 650 mg PO Q6H PRN PRN Reason: Headache/Pain, Scale 1-10 Last Admin: 12/13/24 20:08 Dose: 650 mg Al Hydroxide/Mg Hydroxide (Magnesium Hydrox/Alum Hydrox 30 Ml Oral.Susp) 30 ml PO Q6H PRN PRN Reason: Heartburn/Nausea Last Admin: 12/12/24 15:20 Dose: 30 ml Albuterol Sulfate (Albuterol Sulfate (0.083%) 2.5 Mg/3 Ml Vial.Neb) 2.5 mg INHALE ONCE PRN PRN Reason: Shortness of Breath/Wheezing Last Admin: 12/16/24 07:11 Dose: 2.5 mg Albuterol Sulfate (Albuterol Sulfate 90 Mcg 8 Gm Inhaler) 4 puff INHALE Q4H PRN PRN Reason: Shortness Of Breath Or Wheezin Amlodipine Besylate (Amlodipine Besylate 2.5 Mg Tablet) 2.5 mg PO DAILY [facility]; Protocol Last Admin: 12/16/24 09:15 Dose: 2.5 mg Atorvastatin Calcium (Atorvastatin Calcium 20 Mg Tablet) 20 mg PO DAILY [facility] Last Admin: 12/16/24 09:15 Dose: 20 mg Bisacodyl (Bisacodyl 10 Mg Supp.Rect) 10 mg WA BEDTIME PRN PRN Reason: Constipation Last Admin: 11/04/24 20:37 Dose: 10 mg Bupropion HCl (Bupropion Hcl Xl 300 Mg Tab.Er.24h) 300 mg PO DAILY [facility] Last Admin: 12/16/24 09:14 Dose: 300 mg Buspirone HCl (Buspirone Hcl 10 Mg Tablet) 20 mg PO TID [facility] Last Admin: 12/16/24 09:12 Dose: 20 mg Calcium Carbonate (Calcium Carbonate 750 Mg Tab.Chew) 750 mg PO Q4H PRN PRN Reason: Heartburn Last Admin: 11/30/24 21:34 Dose: 750 mg Cefuroxime Axetil (Cefuroxime Axetil 500 Mg Tablet) 500 mg PO DAILY [facility] Last Admin: 12/16/24 09:15 Dose: 500 mg Clonazepam (Clonazepam Odt 0.125 Mg Tab.Rapdis) 0.25 mg PO DAILY@1430 [facility] Last Admin: 12/15/24 15:05 Dose: 0.25 mg Clonazepam (Clonazepam Odt 0.125 Mg Tab.Rapdis) 0.25 mg PO BEDTIME [facility] Last Admin: 12/15/24 21:12 Dose: 0.25 mg Clonazepam (Clonazepam Odt 0.125 Mg Tab.Rapdis) 0.25 mg PO DAILY PRN PRN Reason: severe anxiety Dicyclomine HCl (Dicyclomine Hcl 10 Mg Capsule) 10 mg PO Q4H PRN PRN Reason: abdominal cramping Last Admin: 12/13/24 09:13 Dose: 10 mg Docusate Sodium (Docusate Sodium 100 Mg Capsule) 100 mg PO BID [facility] Last Admin: 12/16/24 09:11 Dose: 100 mg Duloxetine HCl (Duloxetine Hcl 60 Mg Capsule.Dr) 60 mg PO DAILY [facility] Last Admin: 12/16/24 09:12 Dose: 60 mg Fluticasone/Vilanterol (Fluticasone/Vilanterol 100/25 Blst.W.Dev) 1 puff INHALE RDAILY [facility] Last Admin: 12/16/24 09:15 Dose: 1 puff Gabapentin (Gabapentin 100 Mg Capsule) 100 mg PO TID [facility] Last Admin: 12/16/24 09:13 Dose: 100 mg Glipizide (Glipizide Xl 2.5 Mg Tab.Er.24) 2.5 mg PO DAILY [facility] Last Admin: 12/16/24 09:12 Dose: 2.5 mg Guaifenesin (Guaifenesin La 600 Mg Tab.Er.12h) 1,200 mg PO BID PRN PRN Reason: Cough Last Admin: 12/15/24 21:10 Dose: 1,200 mg Lisinopril (Lisinopril 2.5 Mg Tablet) 2.5 mg PO DAILY [facility]; Protocol Last Admin: 12/16/24 09:13 Dose: 2.5 mg Magnesium Hydroxide (Milk Of Magnesia 30 Ml Oral.Susp) 30 ml PO DAILY PRN PRN Reason: Constipation Last Admin: 11/04/24 16:49 Dose: 30 ml Mirtazapine (Mirtazapine 30 Mg Tablet) 30 mg PO BEDTIME [facility] Last Admin: 12/15/24 21:12 Dose: 30 mg Omeprazole (Omeprazole 20 Mg Capsule.Dr) 20 mg PO BID@0630,1630 [facility] Last Admin: 12/16/24 06:20 Dose: Not Given Ondansetron HCl (Ondansetron Odt 4 Mg Tab.Rapdis) 4 mg TRANSLINGU Q4H PRN PRN Reason: Nausea and Vomiting Last Admin: 12/14/24 17:17 Dose: 4 mg Polyethylene Glycol (Polyethylene Glycol 3350 17 Gm Powd.Pack) 17 gm PO BID [facility] Last Admin: 12/16/24 09:18 Dose: Not Given Pramipexole Dihydrochloride (Pramipexole Di-Hcl 0.125 Mg Tablet) 0.125 mg PO DAILY [facility] Last Admin: 12/16/24 09:13 Dose: 0.125 mg Pyridoxine HCl (Pyridoxine Hcl (Vitamin B6) 50 Mg Tablet) 50 mg PO DAILY [facility] Last Admin: 12/16/24 09:14 Dose: 50 mg Ropinirole HCl (Ropinirole Hcl 2 Mg Tablet) 2 mg PO DAILY@1700 [facility] Last Admin: 12/15/24 16:41 Dose: 2 mg Senna (Sennosides 8.6 Mg Tablet) 17.2 mg PO BEDTIME [facility] On Hold: 11/06/24 16:27 Last Admin: 11/05/24 19:39 Dose: 17.2 mg Simethicone (Simethicone 80 Mg Tab.Chew) 80 mg PO QIDWMHS [facility] Last Admin: 12/16/24 09:14 Dose: 80 mg Sitagliptin Phosphate (Sitagliptin Phosphate 25 Mg Tablet) 25 mg PO DAILY [facility] On Hold: 12/16/24 08:20 Last Admin: 12/15/24 08:20 Dose: 25 mg Trazodone HCl (Trazodone Hcl 50 Mg Tablet) 50 mg PO BEDTIME MRX1 PRN PRN Reason: Insomnia Last Admin: 12/11/24 20:56 Dose: 50 mg Allergies Allergies Allergy/AdvReac Type Severity Reaction Status Date / Time ampicillin Allergy Rash Verified 10/20/24 19:28 morphine Allergy Rash Verified 10/20/24 19:28 Penicillins Allergy Rash Verified 10/20/24 19:28 pork derived (porcine) Allergy Vomiting Verified 11/10/24 17:49 Assessment & Plan Assessment & Plan (1) MDD (major depressive disorder), recurrent episode, moderate: Status: Acute Code(s): F33.1 - Major depressive disorder, recurrent, moderate (2) 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 Barreto is a 78 year-old woman with hx of MDD who was assessed by N at request of her son who called 911 after pt had reported suicidal ideation with plan to OD. In the ED, pt adamantly denied suicidal ideation but reports feeling increasingly more depressed due to involuntary, ongoing movement of lower extremities. She attributes her depressed mood and increase anxious mood to RLS. She has also been treated as tardive akathisia, note that she was previously prescribed abilify. It is noted that she may have iron deficiency due to normocytic anemia which can exacerbate RLS. It is unclear which medications for hyperkinetic movements of the legs are actually helpful and furthermore it is not easily to differentiate whether it is tardive akathisia or RLS. She has been on psychotropic medications that are known to cause akathisia such as abilify. She reports subjective sense of restlessness. Involuntary movement seems to be throughout the day. We will have to do trial of medications that target akathisia such as propanolol and ativan versus medications such as pramipexol for RLS (note that in RLS there is an initial relief with dopamine agonist but can make it worse over time). In addition, will try iron deficiency as it is an underlying cause and exacerbating factor in RLS. PLAN 11/14 continue tx. will monitor before making substantial changes every day. 11/15 continue tx. pt somatically preoccupied. 11/16: Continue current management and treatment plan. 11/17: continue current management and treatment plan. 11/18 start buspar 10mg po TID for SHEILA. continue all other meds. 11/19 increase buspar 20mg po TID 11/20 appears calmer, less somatically preoccupied. continue current medications. 11/21 sodium stable. continues to present as less dysphoric, calmer. reports of dizziness (VS not hotn nor orthostatic), ?vertigo, will try low dose of meclizine otherwise will consult hospitalist for further management. 8.2- pt more focused on gi issues- and anxiety/forgetfulness- continue to monitor somatic complaints- dc qid poc 11/25 will lowered ropinirole as it may increasing anxiety, noted that buspar was lowered, do not think this medication was causing fogginess as pt appeared much calmer since we added buspar. She was started on low dose clonazepam. 11/26 continue tx. received one time dose xanax, but reported feeling overly sedated (although did not appear sedated) 11/27 somatically p8/: Continue current regimen and plansreoccupied, no change in medications. 11/29 continue tx. 11/30: Continue current regimen and plans 12/01: Continue current plans and regimen 12/02 increase buspar 20mg po TID. 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 start wellbutrin XL 150 daily tomorrow for depression. also c/o anxiety-provoking and nocturnally loud peer. schedule klonopin 0.25 QHS for insomnia. otherwise continue current mgmt. awaiting placement. 12/04: slept well last night, started wellbutrin this morning without incident. continue current mgmt. will be discharging to [facility]. 12/05: slept well. c/o anxiety at 3-330 in the afternoon. pt to ask for klonopin PRN at 2-230. trend anxiety, T/C DC of wellbutrin if anxiety seems reliably increased since starting it. dispo next week likely. 12/06: anxious. schedule klonopin 0.25 mg Qdaily at 1430 per pt request. otherwise continue current mgmt. 12/07: anxious and depressed. c/o insomnia. will give wellbutrin a few more days to see if insomnia subsides and mood improves. per staf, stable and uneventful presentation. 12/08: depressed. agreeable to increase wellbutrin to 300 mg as of tomorrow. otherwise continue current mgmt. sleeping well. 12/09: started wellbutrin 300 today. c/o URI Sx, start guaifenesin. otherwise continue current mgmt. 12/10: coughin much eves/NOC per staff. pt c/o not happy, cough, and poor sleep. continue mucinex and mental health Tx plan otherwise. 12/11/24: Patient appeared to slept for 8 hours, was medication compliant but refused the MiraLax. Denies side effects. She is observed watching TV in common area. Reported that she feel anxious and depressed. She is worry about when she is leaving as she is going to stay by herself. I am depressed . Self reports that she did not sleep well last night as roommate waking her up at night telling her that she saw dogs. She reports normal stomach pain. She would hope to see the GI doctor after discharge. She reported that she will be discharged on 12/17 but not sure the name of the facility or where it is located. Denies safety concerns, denies hallucinations. No coughing observed this morning. 12/12: c/o unremitting depression, saying she does not want to live like this. interested in ECT, educated re the procedure. obtain risk strat and EKG, discuss in rounds tomorrow morning. otherwise continue current mgmt. 12/13: continues to push for ECT. seen by hospitalist, no relative contraindications to the procedure. case d/w patient's daughter chantelle as well, who avers that pt has been in this state for a long time, it's only getting worse, and medications have not been helpful. johanna supports this trial on the wishes of her mother and MD's recommendation. ECT ordered, will get pt on the schedule as soon as possible. 12/14: Cough-productive, O2 sats are lower , CXR positive. Seen by hospitalist. Antibiotics initiated, R/O pneumonia 12/15: Pt unable to tolerate doxycycline. Hospitalist will change to Ceftin. 12/16: ECT held today due to januvia and respiratory virus. mood slightly improved. plan for weds ECT. Reason for continued inpatient stay Substantial Risk for: harm to self, inability to function and rapid decompensation Time Spent With Patient Time: Total time managing care of this patient today _25___ minutes.
[2024-12-16 11:20] VITALS: BP 130/67; PULSE 98; RESP 16; TEMP 36.8; O2SAT 97
[2024-12-16 12:52] LABS: IDNOW Serial# 08D9AD1C; Influenza B2 Negative (Negative)
[2024-12-16] MEDS: clonazePAM ODT 0.125 MG TAB.RAPDIS 0.25 MG PO ×2 (13:30→19:55)
[2024-12-16] MEDS: guaiFENesin LA 600 MG TAB.ER.12H 1200 MG PO (14:35)
--- NOTE | 2024-12-16 16:16 | PC.NURSE ---
Covid Now swab collected and sent to lab today. Patient tolerated the procedure well.
[2024-12-16 16:21] LABS: COVID-19 Test Negative (Negative); IDNOW Serial# 55D5AD1C
[2024-12-16 20:00] VITALS: BP 136/66; PULSE 95; RESP 18; TEMP 36.2; O2SAT 96
[2024-12-16 21:11] LABS: Glucose, Whole Blood 213 mg/dL (60-115)
[2024-12-17] MEDS: Magnesium Hydrox/Alum Hydrox 30 ML ORAL.SUSP PO (06:56)
[2024-12-17 07:55] VITALS: BP 122/77; PULSE 97; RESP 18; TEMP 36.6; O2SAT 97
[2024-12-17] MEDS: Fluticasone/Vilanterol 100/25 BLST.W.DEV 1 PUFF INHALE (08:41)
[2024-12-17] MEDS: buPROPion HCl XL 300 MG TAB.ER.24H PO (08:41)
--- NOTE | 2024-12-17 11:00 | P.PNPSI_ITS ---
Subjective Subjective Date of Service: 12/17/24 Reason For Visit: SI with plan to OD on medications, increased anxie Interim History: c/o worsened nausea, h/o gastroparesis. reports zofran and mylanta have not helped. open to other options. looking forward to ECT tomorrow. per staff, depression a little. COVID and flu NEG. eves no issues, no n/v. slept 8 hours. Mental Status Exam Mental Status Exam Narrative: She is alert, pleasant and cooperative. Speech is normal. Moderate eye contact. Affect is appropriate and contained. anxiety and depression present. No acute signs of psychosis. Cognitively impaired. Judgment is impaired Diagnostics Vital Signs (24Hr): Vital Signs - 24 hr 12/16/24 11:20 12/16/24 20:00 12/17/24 07:55 Temperature 98.2 F 97.2 F 97.9 F Pulse Rate 98 95 97 Respiratory Rate 16 18 18 Blood Pressure 130/67 136/66 122/77 Pulse Oximetry 97 96 97 Oxygen Delivery Method Room Air Room Air Room Air BMI result Body Mass Index 22.9 Labs 11/02/24 20:14 12/13/24 12:13 Labs: Laboratory Results - last 48 hr 12/15/24 12/16/24 12/16/24 21:16 06:45 12:26 POC Glucose 106 194 H COVID-19 ([facility]) COVID-19 Clin Com Influenza Type A (AMANDA) Negative Influenza Type B ([facility]ANDA) Negative Influenza A & B Note See Note 12/16/24 12/16/24 15:35 20:01 POC Glucose 213 H COVID-19 ([facility]) Negative COVID-19 Clin Com See Note Influenza Type A ([facility]ANDA) Influenza Type B ([facility]ANDA) Influenza A & B Note Imaging Radiology Impressions: ITS Impressions Hip/Pelvis X-Ray 11/05/24 11:00 IMPRESSION: Unremarkable examination of the left hip. Electronically signed by: Sam Saini MD 11/05/2024 11:13 AM EDT RP KUB X-Ray 11/06/24 09:20 IMPRESSION: Large amount of stool throughout the colon. Electronically signed by: Sam Saini MD 11/06/2024 09:34 AM EDT RP Head CT 11/08/24 14:58 IMPRESSION: Left frontal soft tissue swelling. No acute intracranial abnormality. Electronically signed by: Sam Saini MD 11/08/2024 03:18 PM EDT RP Medications Medications Current Medications Acetaminophen (Acetaminophen 325 Mg Tablet) 650 mg PO Q6H PRN PRN Reason: Headache/Pain, Scale 1-10 Last Admin: 12/13/24 20:08 Dose: 650 mg Al Hydroxide/Mg Hydroxide (Magnesium Hydrox/Alum Hydrox 30 Ml Oral.Susp) 30 ml PO Q6H PRN PRN Reason: Heartburn/Nausea Last Admin: 12/17/24 06:56 Dose: 30 ml Albuterol Sulfate (Albuterol Sulfate (0.083%) 2.5 Mg/3 Ml Vial.Neb) 2.5 mg INHALE ONCE PRN PRN Reason: Shortness of Breath/Wheezing Last Admin: 12/16/24 07:11 Dose: 2.5 mg Albuterol Sulfate (Albuterol Sulfate 90 Mcg 8 Gm Inhaler) 4 puff INHALE Q4H PRN PRN Reason: Shortness Of Breath Or Wheezin Amlodipine Besylate (Amlodipine Besylate 2.5 Mg Tablet) 2.5 mg PO DAILY [facility]; Protocol Last Admin: 12/17/24 08:41 Dose: 2.5 mg Atorvastatin Calcium (Atorvastatin Calcium 20 Mg Tablet) 20 mg PO DAILY [facility] Last Admin: 12/17/24 08:40 Dose: 20 mg Bisacodyl (Bisacodyl 10 Mg Supp.Rect) 10 mg [place] BEDTIME PRN PRN Reason: Constipation Last Admin: 11/04/24 20:37 Dose: 10 mg Bupropion HCl (Bupropion Hcl Xl 300 Mg Tab.Er.24h) 300 mg PO DAILY [facility] Last Admin: 12/17/24 08:41 Dose: 300 mg Buspirone HCl (Buspirone Hcl 10 Mg Tablet) 20 mg PO TID [facility] Last Admin: 12/17/24 08:41 Dose: 20 mg Calcium Carbonate (Calcium Carbonate 750 Mg Tab.Chew) 750 mg PO Q4H PRN PRN Reason: Heartburn Last Admin: 11/30/24 21:34 Dose: 750 mg Cefuroxime Axetil (Cefuroxime Axetil 500 Mg Tablet) 500 mg PO DAILY [facility] Last Admin: 12/17/24 08:40 Dose: 500 mg Clonazepam (Clonazepam Odt 0.125 Mg Tab.Rapdis) 0.25 mg PO DAILY@1430 [facility] Last Admin: 12/16/24 13:30 Dose: 0.25 mg Clonazepam (Clonazepam Odt 0.125 Mg Tab.Rapdis) 0.25 mg PO BEDTIME [facility] Last Admin: 12/16/24 19:55 Dose: 0.25 mg Clonazepam (Clonazepam Odt 0.125 Mg Tab.Rapdis) 0.25 mg PO DAILY PRN PRN Reason: severe anxiety Dicyclomine HCl (Dicyclomine Hcl 10 Mg Capsule) 10 mg PO Q4H PRN PRN Reason: abdominal cramping Last Admin: 12/16/24 18:27 Dose: 10 mg Docusate Sodium (Docusate Sodium 100 Mg Capsule) 100 mg PO BID [facility] Last Admin: 12/17/24 08:41 Dose: 100 mg Duloxetine HCl (Duloxetine Hcl 60 Mg Capsule.Dr) 60 mg PO DAILY [facility] Last Admin: 12/17/24 08:41 Dose: 60 mg Fluticasone/Vilanterol (Fluticasone/Vilanterol 100/25 Blst.W.Dev) 1 puff INHALE RDAILY [facility] Last Admin: 12/17/24 08:41 Dose: 1 puff Gabapentin (Gabapentin 100 Mg Capsule) 100 mg PO TID [facility] Last Admin: 12/17/24 08:41 Dose: 100 mg Glipizide (Glipizide Xl 2.5 Mg Tab.Er.24) 2.5 mg PO DAILY [facility] Last Admin: 12/17/24 08:40 Dose: 2.5 mg Guaifenesin (Guaifenesin La 600 Mg Tab.Er.12h) 1,200 mg PO BID PRN PRN Reason: Cough Last Admin: 12/16/24 14:35 Dose: 1,200 mg Lisinopril (Lisinopril 2.5 Mg Tablet) 2.5 mg PO DAILY [facility]; Protocol Last Admin: 12/17/24 08:40 Dose: 2.5 mg Magnesium Hydroxide (Milk Of Magnesia 30 Ml Oral.Susp) 30 ml PO DAILY PRN PRN Reason: Constipation Last Admin: 11/04/24 16:49 Dose: 30 ml Mirtazapine (Mirtazapine 30 Mg Tablet) 30 mg PO BEDTIME [facility] Last Admin: 12/16/24 19:56 Dose: 30 mg Omeprazole (Omeprazole 20 Mg Capsule.Dr) 20 mg PO BID@0630,1630 [facility] Last Admin: 12/17/24 06:18 Dose: 20 mg Ondansetron HCl (Ondansetron Odt 4 Mg Tab.Rapdis) 4 mg TRANSLINGU Q4H PRN PRN Reason: Nausea and Vomiting Last Admin: 12/17/24 06:18 Dose: 4 mg Polyethylene Glycol (Polyethylene Glycol 3350 17 Gm Powd.Pack) 17 gm PO BID [facility] Last Admin: 12/17/24 08:42 Dose: Not Given Pramipexole Dihydrochloride (Pramipexole Di-Hcl 0.125 Mg Tablet) 0.125 mg PO DAILY [facility] Last Admin: 12/17/24 08:40 Dose: 0.125 mg Pyridoxine HCl (Pyridoxine Hcl (Vitamin B6) 50 Mg Tablet) 50 mg PO DAILY [facility] Last Admin: 12/17/24 08:40 Dose: 50 mg Ropinirole HCl (Ropinirole Hcl 2 Mg Tablet) 2 mg PO DAILY@1700 [facility] Last Admin: 12/16/24 16:38 Dose: 2 mg Senna (Sennosides 8.6 Mg Tablet) 17.2 mg PO BEDTIME [facility] On Hold: 11/06/24 16:27 Last Admin: 11/05/24 19:39 Dose: 17.2 mg Simethicone (Simethicone 80 Mg Tab.Chew) 80 mg PO QIDWMHS [facility] Last Admin: 12/17/24 08:40 Dose: 80 mg Sitagliptin Phosphate (Sitagliptin Phosphate 25 Mg Tablet) 25 mg PO DAILY [facility] On Hold: 12/16/24 08:20 Last Admin: 12/15/24 08:20 Dose: 25 mg Trazodone HCl (Trazodone Hcl 50 Mg Tablet) 50 mg PO BEDTIME MRX1 PRN PRN Reason: Insomnia Last Admin: 12/11/24 20:56 Dose: 50 mg Allergies Allergies Allergy/AdvReac Type Severity Reaction Status Date / Time ampicillin Allergy Rash Verified 10/20/24 19:28 morphine Allergy Rash Verified 10/20/24 19:28 Penicillins Allergy Rash Verified 10/20/24 19:28 pork derived (porcine) Allergy Vomiting Verified 11/10/24 17:49 Assessment & Plan Assessment & Plan (1) MDD (major depressive disorder), recurrent episode, moderate: Status: Acute Code(s): F33.1 - Major depressive disorder, recurrent, moderate (2) 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 Barreto is a 78 year-old woman with hx of MDD who was assessed by N at request of her son who called 911 after pt had reported suicidal ideation with plan to OD. In the ED, pt adamantly denied suicidal ideation but reports feeling increasingly more depressed due to involuntary, ongoing movement of lower extremities. She attributes her depressed mood and increase anxious mood to RLS. She has also been treated as tardive akathisia, note that she was previously prescribed abilify. It is noted that she may have iron deficiency due to normocytic anemia which can exacerbate RLS. It is unclear which medications for hyperkinetic movements of the legs are actually helpful and furthermore it is not easily to differentiate whether it is tardive akathisia or RLS. She has been on psychotropic medications that are known to cause akathisia such as abilify. She reports subjective sense of restlessness. Involuntary movement seems to be throughout the day. We will have to do trial of medications that target akathisia such as propanolol and ativan versus medications such as pramipexol for RLS (note that in RLS there is an initial relief with dopamine agonist but can make it worse over time). In addition, will try iron deficiency as it is an underlying cause and exacerbating factor in RLS. PLAN 11/14 continue tx. will monitor before making substantial changes every day. 11/15 continue tx. pt somatically preoccupied. 11/16: Continue current management and treatment plan. 11/17: continue current management and treatment plan. 11/18 start buspar 10mg po TID for SHEILA. continue all other meds. 11/19 increase buspar 20mg po TID 11/20 appears calmer, less somatically preoccupied. continue current medications. 11/21 sodium stable. continues to present as less dysphoric, calmer. reports of dizziness (VS not hotn nor orthostatic), ?vertigo, will try low dose of meclizine otherwise will consult hospitalist for further management. 8.2- pt more focused on gi issues- and anxiety/forgetfulness- continue to monitor somatic complaints- dc qid poc 11/25 will lowered ropinirole as it may increasing anxiety, noted that buspar was lowered, do not think this medication was causing fogginess as pt appeared much calmer since we added buspar. She was started on low dose clonazepam. 11/26 continue tx. received one time dose xanax, but reported feeling overly sedated (although did not appear sedated) 11/27 somatically p8: Continue current regimen and plansreoccupied, no change in medications. 11/29 continue tx. 11/30: Continue current regimen and plans 12/01: Continue current plans and regimen 12/02 increase buspar 20mg po TID. 12/03: reports depression not improving, c/o feeling low energy and motivation, saying she needs a sisal picker. start wellbutrin XL 150 daily tomorrow for depression. also c/o anxiety-provoking and nocturnally loud peer. schedule klonopin 0.25 QHS for insomnia. otherwise continue current mgmt. awaiting placement. 12/04: slept well last night, started wellbutrin this morning without incident. continue current mgmt. will be discharging to [facility]. 12/05: slept well. c/o anxiety at 3-330 in the afternoon. pt to ask for klonopin PRN at 2-230. trend anxiety, T/C DC of wellbutrin if anxiety seems reliably increased since starting it. dispo next week likely. 12/06: anxious. schedule klonopin 0.25 mg Qdaily at 1430 per pt request. otherwise continue current mgmt. 12/07: anxious and depressed. c/o insomnia. will give wellbutrin a few more days to see if insomnia subsides and mood improves. per staf, stable and uneventful presentation. 12/08: depressed. agreeable to increase wellbutrin to 300 mg as of tomorrow. otherwise continue current mgmt. sleeping well. 12/09: started wellbutrin 300 today. c/o URI Sx, start guaifenesin. otherwise continue current mgmt. 12/10: coughin much eves/NOC per staff. pt c/o not happy, cough, and poor sleep. continue mucinex and mental health Tx plan otherwise. 12/11/24: Patient appeared to slept for 8 hours, was medication compliant but refused the MiraLax. Denies side effects. She is observed watching TV in common area. Reported that she feel anxious and depressed. She is worry about when she is leaving as she is going to stay by herself. I am depressed . Self reports that she did not sleep well last night as roommate waking her up at night telling her that she saw dogs. She reports normal stomach pain. She would hope to see the GI doctor after discharge. She reported that she will be discharged on 12/17 but not sure the name of the facility or where it is located. Denies safety concerns, denies hallucinations. No coughing observed this morning. 12/12: c/o unremitting depression, saying she does not want to live like this. interested in ECT, educated re the procedure. obtain risk strat and EKG, discuss in rounds tomorrow morning. otherwise continue current mgmt. 12/13: continues to push for ECT. seen by hospitalist, no relative contraindications to the procedure. case d/w patient's daughter chantelle as well, who avers that pt has been in this state for a long time, it's only getting worse, and medications have not been helpful. johanna supports this trial on the wishes of her mother and MD's recommendation. ECT ordered, will get pt on the schedule as soon as possible. 12/14: Cough-productive, O2 sats are lower , CXR positive. Seen by hospitalist. Antibiotics initiated, R/O pneumonia 12/15: Pt unable to tolerate doxycycline. Hospitalist will change to Ceftin. 12/16: ECT held today due to januvia and respiratory virus. mood slightly improved. plan for weds ECT. 12/17: COVID and flu NEG. c/o nausea, exacerbation of chronic condition, h/o gastroparesis. holding januvia. start reglan for gastroparesis. continue current mgmt otherwise. NPO past MN for ECT tomorrow. Reason for continued inpatient stay Substantial Risk for: inability to function and rapid decompensation Time Spent With Patient Time: Total time managing care of this patient today __25__ minutes.
[2024-12-17] MEDS: Metoclopramide HCl Oral Soln 10 MG/10 ML SOLUTION 5 MG PO ×3 (12:11→20:29)
[2024-12-17] MEDS: clonazePAM ODT 0.125 MG TAB.RAPDIS 0.25 MG PO (13:55)
[2024-12-17 19:29] LABS: Glucose, Whole Blood 265 mg/dL (60-115)
[2024-12-17 20:00] VITALS: BP 147/65; PULSE 92; RESP 16; TEMP 36.6; O2SAT 95
[2024-12-18] MEDS: Metoclopramide HCl Oral Soln 10 MG/10 ML SOLUTION 5 MG PO ×4 (08:42→20:02)
[2024-12-18] MEDS: Fluticasone/Vilanterol 100/25 BLST.W.DEV 1 PUFF INHALE (08:43)
[2024-12-18 09:21] VITALS: BP 135/78; PULSE 109; RESP 18; TEMP 35.7; O2SAT 94
[2024-12-18] MEDS: buPROPion HCl XL 300 MG TAB.ER.24H PO (09:24)
--- NOTE | 2024-12-18 10:41 | HO.PSYCHPN ---
Subjective Subjective Date of Service: 12/18/24 Reason For Visit: SI with plan to OD on medications, increased anxie Interim History: no ECT today due to no updated medical clearance. pt hoping for ECT monday. no other complaints or requests. per staff, awaiting med clearance for ECT. Mental Status Exam Mental Status Exam Narrative: She is alert, pleasant and cooperative. Speech is normal. Moderate eye contact. Affect is appropriate and contained. anxiety and depression present. No acute signs of psychosis. Cognitively impaired. Judgment is impaired Diagnostics Vital Signs (24Hr): Vital Signs - 24 hr 12/17/24 20:00 12/18/24 09:21 Temperature 97.8 F 96.3 F L Pulse Rate 92 109 H Respiratory Rate 16 18 Blood Pressure 147/65 H 135/78 Pulse Oximetry 95 94 Oxygen Delivery Method Room Air BMI result Body Mass Index 22.9 Labs 11/02/24 20:14 12/13/24 12:13 Labs: Laboratory Results - last 48 hr 12/16/24 12/16/24 12/16/24 12:26 15:35 20:01 POC Glucose 213 H COVID-19 ([facility]) Negative COVID-19 Clin Com See Note Influenza Type A (AMANDA) Negative Influenza Type B (AMANDA) Negative Influenza A & B Note See Note 12/17/24 19:13 POC Glucose 265 H COVID-19 ([facility]) COVID-19 Clin Com Influenza Type A (AMANDA) Influenza Type B (AMANDA) Influenza A & B Note Imaging Radiology Impressions: ITS Impressions Hip/Pelvis X-Ray 11/05/24 11:00 IMPRESSION: Unremarkable examination of the left hip. Electronically signed by: Sam Saini MD 11/05/2024 11:13 AM EDT RP KUB X-Ray 11/06/24 09:20 IMPRESSION: Large amount of stool throughout the colon. Electronically signed by: Sam Saini MD 11/06/2024 09:34 AM EDT RP Head CT 11/08/24 14:58 IMPRESSION: Left frontal soft tissue swelling. No acute intracranial abnormality. Electronically signed by: Sam Saini MD 11/08/2024 03:18 PM EDT RP Medications Medications Current Medications Acetaminophen (Acetaminophen 325 Mg Tablet) 650 mg PO Q6H PRN PRN Reason: Headache/Pain, Scale 1-10 Last Admin: 12/13/24 20:08 Dose: 650 mg Al Hydroxide/Mg Hydroxide (Magnesium Hydrox/Alum Hydrox 30 Ml Oral.Susp) 30 ml PO Q6H PRN PRN Reason: Heartburn/Nausea Last Admin: 12/17/24 06:56 Dose: 30 ml Albuterol Sulfate (Albuterol Sulfate (0.083%) 2.5 Mg/3 Ml Vial.Neb) 2.5 mg INHALE ONCE PRN PRN Reason: Shortness of Breath/Wheezing Last Admin: 12/16/24 07:11 Dose: 2.5 mg Albuterol Sulfate (Albuterol Sulfate 90 Mcg 8 Gm Inhaler) 4 puff INHALE Q4H PRN PRN Reason: Shortness Of Breath Or Wheezin Amlodipine Besylate (Amlodipine Besylate 2.5 Mg Tablet) 2.5 mg PO DAILY [facility]; Protocol Last Admin: 12/18/24 09:24 Dose: 2.5 mg Atorvastatin Calcium (Atorvastatin Calcium 20 Mg Tablet) 20 mg PO DAILY [facility] Last Admin: 12/18/24 09:23 Dose: 20 mg Bisacodyl (Bisacodyl 10 Mg Supp.Rect) 10 mg CO BEDTIME PRN PRN Reason: Constipation Last Admin: 11/04/24 20:37 Dose: 10 mg Bupropion HCl (Bupropion Hcl Xl 300 Mg Tab.Er.24h) 300 mg PO DAILY [facility] Last Admin: 12/18/24 09:24 Dose: 300 mg Buspirone HCl (Buspirone Hcl 10 Mg Tablet) 20 mg PO TID [facility] Last Admin: 12/18/24 09:23 Dose: 20 mg Calcium Carbonate (Calcium Carbonate 750 Mg Tab.Chew) 750 mg PO Q4H PRN PRN Reason: Heartburn Last Admin: 11/30/24 21:34 Dose: 750 mg Cefuroxime Axetil (Cefuroxime Axetil 500 Mg Tablet) 500 mg PO DAILY [facility] Last Admin: 12/18/24 09:24 Dose: 500 mg Clonazepam (Clonazepam Odt 0.125 Mg Tab.Rapdis) 0.25 mg PO DAILY@1430 [facility] Last Admin: 12/17/24 13:55 Dose: 0.25 mg Clonazepam (Clonazepam Odt 0.125 Mg Tab.Rapdis) 0.25 mg PO BEDTIME [facility] Last Admin: 12/17/24 20:32 Dose: Not Given Clonazepam (Clonazepam Odt 0.125 Mg Tab.Rapdis) 0.25 mg PO DAILY PRN PRN Reason: severe anxiety Dicyclomine HCl (Dicyclomine Hcl 10 Mg Capsule) 10 mg PO Q4H PRN PRN Reason: abdominal cramping Last Admin: 12/17/24 13:55 Dose: 10 mg Docusate Sodium (Docusate Sodium 100 Mg Capsule) 100 mg PO BID [facility] Last Admin: 12/18/24 09:24 Dose: 100 mg Duloxetine HCl (Duloxetine Hcl 60 Mg Capsule.) 60 mg PO DAILY [facility] Last Admin: 12/18/24 09:24 Dose: 60 mg Fluticasone/Vilanterol (Fluticasone/Vilanterol 100/25 Blst.W.Dev) 1 puff INHALE RDAILY [facility] Last Admin: 12/18/24 08:43 Dose: 1 puff Gabapentin (Gabapentin 100 Mg Capsule) 100 mg PO TID [facility] Last Admin: 12/18/24 09:24 Dose: 100 mg Glipizide (Glipizide Xl 2.5 Mg Tab.Er.24) 2.5 mg PO DAILY [facility] Last Admin: 12/18/24 09:23 Dose: 2.5 mg Guaifenesin (Guaifenesin La 600 Mg Tab.Er.12h) 1,200 mg PO BID PRN PRN Reason: Cough Last Admin: 12/16/24 14:35 Dose: 1,200 mg Lisinopril (Lisinopril 2.5 Mg Tablet) 2.5 mg PO DAILY [facility]; Protocol Last Admin: 12/18/24 09:30 Dose: 2.5 mg Magnesium Hydroxide (Milk Of Magnesia 30 Ml Oral.Susp) 30 ml PO DAILY PRN PRN Reason: Constipation Last Admin: 11/04/24 16:49 Dose: 30 ml Metoclopramide HCl (Metoclopramide Hcl Oral Soln 10 Mg/10 Ml Solution) 5 mg PO QIDACHS [facility] Last Admin: 12/18/24 08:42 Dose: 5 mg Mirtazapine (Mirtazapine 30 Mg Tablet) 30 mg PO BEDTIME [facility] Last Admin: 12/17/24 20:30 Dose: 30 mg Omeprazole (Omeprazole 20 Mg Capsule.Dr) 20 mg PO BID@0630,1630 [facility] Last Admin: 12/18/24 06:23 Dose: Not Given Ondansetron HCl (Ondansetron Odt 4 Mg Tab.Rapdis) 4 mg TRANSLINGU Q4H PRN PRN Reason: Nausea and Vomiting Last Admin: 12/17/24 11:23 Dose: 4 mg Polyethylene Glycol (Polyethylene Glycol 3350 17 Gm Powd.Pack) 17 gm PO BID [facility] Last Admin: 12/18/24 09:26 Dose: 17 gm Pramipexole Dihydrochloride (Pramipexole Di-Hcl 0.125 Mg Tablet) 0.125 mg PO DAILY [facility] Last Admin: 12/18/24 09:24 Dose: 0.125 mg Pyridoxine HCl (Pyridoxine Hcl (Vitamin B6) 50 Mg Tablet) 50 mg PO DAILY [facility] Last Admin: 12/18/24 09:24 Dose: 50 mg Ropinirole HCl (Ropinirole Hcl 2 Mg Tablet) 2 mg PO DAILY@1700 [facility] Last Admin: 12/17/24 16:43 Dose: 2 mg Senna (Sennosides 8.6 Mg Tablet) 17.2 mg PO BEDTIME [facility] On Hold: 11/06/24 16:27 Last Admin: 11/05/24 19:39 Dose: 17.2 mg Simethicone (Simethicone 80 Mg Tab.Chew) 80 mg PO QIDWMHS [facility] Last Admin: 12/18/24 09:24 Dose: 80 mg Sitagliptin Phosphate (Sitagliptin Phosphate 25 Mg Tablet) 25 mg PO DAILY [facility] On Hold: 12/16/24 08:20 Last Admin: 12/15/24 08:20 Dose: 25 mg Trazodone HCl (Trazodone Hcl 50 Mg Tablet) 50 mg PO BEDTIME MRX1 PRN PRN Reason: Insomnia Last Admin: 12/11/24 20:56 Dose: 50 mg Allergies Allergies Allergy/AdvReac Type Severity Reaction Status Date / Time ampicillin Allergy Rash Verified 10/20/24 19:28 morphine Allergy Rash Verified 10/20/24 19:28 Penicillins Allergy Rash Verified 10/20/24 19:28 pork derived (porcine) Allergy Vomiting Verified 11/10/24 17:49 Assessment & Plan Assessment & Plan (1) MDD (major depressive disorder), recurrent episode, moderate: Status: Acute Code(s): F33.1 - Major depressive disorder, recurrent, moderate (2) 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 Barreto is a 78 year-old woman with hx of MDD who was assessed by N at request of her son who called 911 after pt had reported suicidal ideation with plan to OD. In the ED, pt adamantly denied suicidal ideation but reports feeling increasingly more depressed due to involuntary, ongoing movement of lower extremities. She attributes her depressed mood and increase anxious mood to RLS. She has also been treated as tardive akathisia, note that she was previously prescribed abilify. It is noted that she may have iron deficiency due to normocytic anemia which can exacerbate RLS. It is unclear which medications for hyperkinetic movements of the legs are actually helpful and furthermore it is not easily to differentiate whether it is tardive akathisia or RLS. She has been on psychotropic medications that are known to cause akathisia such as abilify. She reports subjective sense of restlessness. Involuntary movement seems to be throughout the day. We will have to do trial of medications that target akathisia such as propanolol and ativan versus medications such as pramipexol for RLS (note that in RLS there is an initial relief with dopamine agonist but can make it worse over time). In addition, will try iron deficiency as it is an underlying cause and exacerbating factor in RLS. PLAN 11/14 continue tx. will monitor before making substantial changes every day. 11/15 continue tx. pt somatically preoccupied. 11/16: Continue current management and treatment plan. 11/17: continue current management and treatment plan. 11/18 start buspar 10mg po TID for SHEILA. continue all other meds. 11/19 increase buspar 20mg po TID 11/20 appears calmer, less somatically preoccupied. continue current medications. 11/21 sodium stable. continues to present as less dysphoric, calmer. reports of dizziness (VS not hotn nor orthostatic), ?vertigo, will try low dose of meclizine otherwise will consult hospitalist for further management. 8.2- pt more focused on gi issues- and anxiety/forgetfulness- continue to monitor somatic complaints- dc qid poc 11/25 will lowered ropinirole as it may increasing anxiety, noted that buspar was lowered, do not think this medication was causing fogginess as pt appeared much calmer since we added buspar. She was started on low dose clonazepam. 11/26 continue tx. received one time dose xanax, but reported feeling overly sedated (although did not appear sedated) 11/27 somatically p8/: Continue current regimen and plansreoccupied, no change in medications. 11/29 continue tx. 11/30: Continue current regimen and plans 12/01: Continue current plans and regimen 12/02 increase buspar 20mg po TID. 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 start wellbutrin XL 150 daily tomorrow for depression. also c/o anxiety-provoking and nocturnally loud peer. schedule klonopin 0.25 QHS for insomnia. otherwise continue current mgmt. awaiting placement. 12/04: slept well last night, started wellbutrin this morning without incident. continue current mgmt. will be discharging to [facility]. 12/05: slept well. c/o anxiety at 3-330 in the afternoon. pt to ask for klonopin PRN at 2-230. trend anxiety, T/C DC of wellbutrin if anxiety seems reliably increased since starting it. dispo next week likely. 12/06: anxious. schedule klonopin 0.25 mg Qdaily at 1430 per pt request. otherwise continue current mgmt. 12/07: anxious and depressed. c/o insomnia. will give wellbutrin a few more days to see if insomnia subsides and mood improves. per staf, stable and uneventful presentation. 12/08: depressed. agreeable to increase wellbutrin to 300 mg as of tomorrow. otherwise continue current mgmt. sleeping well. 12/09: started wellbutrin 300 today. c/o URI Sx, start guaifenesin. otherwise continue current mgmt. 12/10: coughin much eves/NOC per staff. pt c/o not happy, cough, and poor sleep. continue mucinex and mental health Tx plan otherwise. 12/11/24: Patient appeared to slept for 8 hours, was medication compliant but refused the MiraLax. Denies side effects. She is observed watching TV in common area. Reported that she feel anxious and depressed. She is worry about when she is leaving as she is going to stay by herself. I am depressed . Self reports that she did not sleep well last night as roommate waking her up at night telling her that she saw dogs. She reports normal stomach pain. She would hope to see the GI doctor after discharge. She reported that she will be discharged on 12/17 but not sure the name of the facility or where it is located. Denies safety concerns, denies hallucinations. No coughing observed this morning. 12/12: c/o unremitting depression, saying she does not want to live like this. interested in ECT, educated re the procedure. obtain risk strat and EKG, discuss in rounds tomorrow morning. otherwise continue current mgmt. 12/13: continues to push for ECT. seen by hospitalist, no relative contraindications to the procedure. case d/w patient's daughter chantelle as well, who avers that pt has been in this state for a long time, it's only getting worse, and medications have not been helpful. johanna supports this trial on the wishes of her mother and MD's recommendation. ECT ordered, will get pt on the schedule as soon as possible. 12/14: Cough-productive, O2 sats are lower , CXR positive. Seen by hospitalist. Antibiotics initiated, R/O pneumonia 12/15: Pt unable to tolerate doxycycline. Hospitalist will change to Ceftin. 12/16: ECT held today due to januvia and respiratory virus. mood slightly improved. plan for ECT. 12/17: COVID and flu NEG. c/o nausea, exacerbation of chronic condition, h/o gastroparesis. holding januvia. start reglan for gastroparesis. continue current mgmt otherwise. NPO past MN for ECT tomorrow. 12/18: awaiting med clearance for ECT. planning for ECT monday. otherwise continue current mgmt. glucose noted to be elevated since holding januvia the past several days. Reason for continued inpatient stay Substantial Risk for: inability to function Time Spent With Patient Time: Total time managing care of this patient today __25__ minutes.
--- NOTE | 2024-12-18 12:33 | PM.EVENT ---
Event Note Date of Service: 12/18/24 Event Note: Follow up for ECT clearance for pt with recent URI symptoms. CXR on 12/14 showing focal area of pneumonitis. Pt was placed on a course of cefuroxime 500 mg b.i.d. x7 days to empirically cover for possible pneumonia. Pt seen and evaluated today where she is still experiencing a mild cough, but no significant SOB or HENRIQUEZ. Denies any fever or chills. Pt has remained afebrile and has not been hypoxic. Patient is hemodynamically and clinically stable, and CXR's findings of pneumonitis are not a contraindication to proceed with ECT. Time Spent With Patient Time: Total time managing care of this patient today ____ minutes.
[2024-12-18] MEDS: clonazePAM ODT 0.125 MG TAB.RAPDIS 0.25 MG PO ×2 (14:08→20:04)
[2024-12-18 20:00] VITALS: BP 125/64; PULSE 92; RESP 16; TEMP 36.2; O2SAT 97
[2024-12-19] MEDS: Fluticasone/Vilanterol 100/25 BLST.W.DEV 1 PUFF INHALE (09:24)
[2024-12-19 09:25] VITALS: BP 131/63; PULSE 101; RESP 18; TEMP 36.2; O2SAT 96
[2024-12-19] MEDS: Metoclopramide HCl Oral Soln 10 MG/10 ML SOLUTION 5 MG PO ×4 (09:29→20:46)
[2024-12-19] MEDS: buPROPion HCl XL 300 MG TAB.ER.24H PO (09:30)
[2024-12-19 10:27] LABS: Glucose, Whole Blood 408 mg/dL (60-115)
[2024-12-19] MEDS: clonazePAM ODT 0.125 MG TAB.RAPDIS 0.25 MG PO ×3 (10:46→20:45)
--- NOTE | 2024-12-19 10:55 | P.PNPSI_ITS ---
Subjective Subjective Date of Service: 12/19/24 Reason For Visit: SI with plan to OD on medications, increased anxie Subjective Notes: Conditional Voluntary Interim History: Pt slept through the night. She reports feeling anxious but overall reports doing well. She had number of concerns throughout the day, some related to peer who pt finds triggering and others related to GI symptoms. using reglan for gastroparesis- monitor exacerbation of RLS/Akathisia. Review of Systems Review of Systems GI SE of antibiotic Yes all other systems are reviewed and are negative Mental Status Exam Mental Status Exam Narrative: She is alert, pleasant and cooperative. Speech is normal. Moderate eye contact. Affect is appropriate and contained. anxiety and depression present. No acute signs of psychosis. Cognitively impaired. Judgment is impaired Diagnostics Vital Signs (24Hr): Vital Signs - 24 hr 12/18/24 20:00 12/19/24 09:25 Temperature 97.1 F 97.2 F Pulse Rate 92 101 H Respiratory Rate 16 18 Blood Pressure 125/64 131/63 Pulse Oximetry 97 96 Oxygen Delivery Method Room Air BMI result Body Mass Index 22.9 Labs 11/02/24 20:14 12/20/24 08:43 Labs: Laboratory Results - last 48 hr 12/17/24 12/19/24 19:13 10:21 POC Glucose 265 H 408 H* Imaging Radiology Impressions: ITS Impressions Hip/Pelvis X-Ray 11/05/24 11:00 IMPRESSION: Unremarkable examination of the left hip. Electronically signed by: Sam Saini MD 11/05/2024 11:13 AM EDT RP KUB X-Ray 11/06/24 09:20 IMPRESSION: Large amount of stool throughout the colon. Electronically signed by: Sam Saini MD 11/06/2024 09:34 AM EDT RP Head CT 11/08/24 14:58 IMPRESSION: Left frontal soft tissue swelling. No acute intracranial abnormality. Electronically signed by: Sam Saini MD 11/08/2024 03:18 PM EDT RP Medications Medications Current Medications Acetaminophen (Acetaminophen 325 Mg Tablet) 650 mg PO Q6H PRN PRN Reason: Headache/Pain, Scale 1-10 Last Admin: 12/13/24 20:08 Dose: 650 mg Al Hydroxide/Mg Hydroxide (Magnesium Hydrox/Alum Hydrox 30 Ml Oral.Susp) 30 ml PO Q6H PRN PRN Reason: Heartburn/Nausea Last Admin: 12/17/24 06:56 Dose: 30 ml Albuterol Sulfate (Albuterol Sulfate (0.083%) 2.5 Mg/3 Ml Vial.Neb) 2.5 mg INHALE ONCE PRN PRN Reason: Shortness of Breath/Wheezing Last Admin: 12/16/24 07:11 Dose: 2.5 mg Albuterol Sulfate (Albuterol Sulfate 90 Mcg 8 Gm Inhaler) 4 puff INHALE Q4H PRN PRN Reason: Shortness Of Breath Or Wheezin Amlodipine Besylate (Amlodipine Besylate 2.5 Mg Tablet) 2.5 mg PO DAILY RICHARD; Protocol Last Admin: 12/19/24 09:30 Dose: 2.5 mg Atorvastatin Calcium (Atorvastatin Calcium 20 Mg Tablet) 20 mg PO DAILY RICHARD Last Admin: 12/19/24 09:30 Dose: 20 mg Bisacodyl (Bisacodyl 10 Mg Supp.Rect) 10 mg CO BEDTIME PRN PRN Reason: Constipation Last Admin: 11/04/24 20:37 Dose: 10 mg Bupropion HCl (Bupropion Hcl Xl 300 Mg Tab.Er.24h) 300 mg PO DAILY RICHARD Last Admin: 12/19/24 09:30 Dose: 300 mg Buspirone HCl (Buspirone Hcl 10 Mg Tablet) 20 mg PO TID RICHARD Last Admin: 12/19/24 09:29 Dose: 20 mg Calcium Carbonate (Calcium Carbonate 750 Mg Tab.Chew) 750 mg PO Q4H PRN PRN Reason: Heartburn Last Admin: 11/30/24 21:34 Dose: 750 mg Cefuroxime Axetil (Cefuroxime Axetil 500 Mg Tablet) 500 mg PO DAILY RICHARD Stop: 12/23/24 08:59 Last Admin: 12/19/24 09:30 Dose: 500 mg Clonazepam (Clonazepam Odt 0.125 Mg Tab.Rapdis) 0.25 mg PO BEDTIME RICHARD Last Admin: 12/18/24 20:04 Dose: 0.25 mg Clonazepam (Clonazepam Odt 0.125 Mg Tab.Rapdis) 0.25 mg PO DAILY PRN PRN Reason: severe anxiety Last Admin: 12/19/24 10:46 Dose: 0.25 mg Clonazepam (Clonazepam Odt 0.125 Mg Tab.Rapdis) 0.25 mg PO DAILY PRN PRN Reason: anxiety/restlessness Dicyclomine HCl (Dicyclomine Hcl 10 Mg Capsule) 10 mg PO Q4H PRN PRN Reason: abdominal cramping Last Admin: 12/17/24 13:55 Dose: 10 mg Docusate Sodium (Docusate Sodium 100 Mg Capsule) 100 mg PO BID [facility] Last Admin: 12/19/24 09:30 Dose: 100 mg Duloxetine HCl (Duloxetine Hcl 60 Mg Capsule.Dr) 60 mg PO DAILY [facility] Last Admin: 12/19/24 09:30 Dose: 60 mg Fluticasone/Vilanterol (Fluticasone/Vilanterol 100/25 Blst.W.Dev) 1 puff INHALE RDAILY [facility] Last Admin: 12/19/24 09:24 Dose: 1 puff Gabapentin (Gabapentin 100 Mg Capsule) 100 mg PO TID [facility] Last Admin: 12/19/24 09:30 Dose: 100 mg Glipizide (Glipizide Xl 2.5 Mg Tab.Er.24) 2.5 mg PO DAILY [facility] Last Admin: 12/19/24 09:29 Dose: 2.5 mg Guaifenesin (Guaifenesin La 600 Mg Tab.Er.12h) 1,200 mg PO BID PRN PRN Reason: Cough Last Admin: 12/16/24 14:35 Dose: 1,200 mg Insulin Human Lispro (Insulin Lispro 100 Unit/Ml 3 Ml Vial) 5 unit SUBCUT QIDACHS [facility]; Protocol Last Admin: 12/19/24 10:40 Dose: 5 unit Lisinopril (Lisinopril 2.5 Mg Tablet) 2.5 mg PO DAILY [facility]; Protocol Last Admin: 12/19/24 09:30 Dose: 2.5 mg Magnesium Hydroxide (Milk Of Magnesia 30 Ml Oral.Susp) 30 ml PO DAILY PRN PRN Reason: Constipation Last Admin: 11/04/24 16:49 Dose: 30 ml Metoclopramide HCl (Metoclopramide Hcl Oral Soln 10 Mg/10 Ml Solution) 5 mg PO QIDACHS [facility] Last Admin: 12/19/24 10:40 Dose: 5 mg Mirtazapine (Mirtazapine 30 Mg Tablet) 30 mg PO BEDTIME [facility] Last Admin: 12/18/24 20:04 Dose: 30 mg Omeprazole (Omeprazole 20 Mg Capsule.Dr) 20 mg PO BID@0630,1630 [facility] Last Admin: 12/19/24 05:41 Dose: 20 mg Ondansetron HCl (Ondansetron Odt 4 Mg Tab.Rapdis) 4 mg TRANSLINGU Q4H PRN PRN Reason: Nausea and Vomiting Last Admin: 12/17/24 11:23 Dose: 4 mg Polyethylene Glycol (Polyethylene Glycol 3350 17 Gm Powd.Pack) 17 gm PO BID [facility] Last Admin: 12/19/24 09:31 Dose: Not Given Pramipexole Dihydrochloride (Pramipexole Di-Hcl 0.125 Mg Tablet) 0.125 mg PO DAILY [facility] Last Admin: 12/19/24 09:30 Dose: 0.125 mg Pyridoxine HCl (Pyridoxine Hcl (Vitamin B6) 50 Mg Tablet) 50 mg PO DAILY [facility] Last Admin: 12/19/24 09:38 Dose: 50 mg Ropinirole HCl (Ropinirole Hcl 2 Mg Tablet) 2 mg PO DAILY@1700 [facility] Last Admin: 12/18/24 17:06 Dose: 2 mg Senna (Sennosides 8.6 Mg Tablet) 17.2 mg PO BEDTIME [facility] On Hold: 11/06/24 16:27 Last Admin: 11/05/24 19:39 Dose: 17.2 mg Simethicone (Simethicone 80 Mg Tab.Chew) 80 mg PO QIDWMHS [facility] Last Admin: 12/19/24 10:41 Dose: 80 mg Sitagliptin Phosphate (Sitagliptin Phosphate 25 Mg Tablet) 25 mg PO DAILY [facility] On Hold: 12/16/24 08:20 Last Admin: 12/15/24 08:20 Dose: 25 mg Trazodone HCl (Trazodone Hcl 50 Mg Tablet) 50 mg PO BEDTIME MRX1 PRN PRN Reason: Insomnia Last Admin: 12/11/24 20:56 Dose: 50 mg Allergies Allergies Allergy/AdvReac Type Severity Reaction Status Date / Time ampicillin Allergy Rash Verified 10/20/24 19:28 morphine Allergy Rash Verified 10/20/24 19:28 Penicillins Allergy Rash Verified 10/20/24 19:28 pork derived (porcine) Allergy Vomiting Verified 11/10/24 17:49 Assessment & Plan Assessment & Plan (1) MDD (major depressive disorder), recurrent episode, moderate: Status: Acute Code(s): F33.1 - Major depressive disorder, recurrent, moderate (2) 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 Barreto is a 78 year-old woman with hx of MDD who was assessed by N at request of her son who called 911 after pt had reported suicidal ideation with plan to OD. In the ED, pt adamantly denied suicidal ideation but reports feeling increasingly more depressed due to involuntary, ongoing movement of lower extremities. She attributes her depressed mood and increase anxious mood to RLS. She has also been treated as tardive akathisia, note that she was previously prescribed abilify. It is noted that she may have iron deficiency due to normocytic anemia which can exacerbate RLS. It is unclear which medications for hyperkinetic movements of the legs are actually helpful and furthermore it is not easily to differentiate whether it is tardive akathisia or RLS. She has been on psychotropic medications that are known to cause akathisia such as abilify. She reports subjective sense of restlessness. Involuntary movement seems to be throughout the day. We will have to do trial of medications that target akathisia such as propanolol and ativan versus medications such as pramipexol for RLS (note that in RLS there is an initial relief with dopamine agonist but can make it worse over time). In addition, will try iron deficiency as it is an underlying cause and exacerbating factor in RLS. PLAN 11/14 continue tx. will monitor before making substantial changes every day. 11/15 continue tx. pt somatically preoccupied. 11/16: Continue current management and treatment plan. 11/17: continue current management and treatment plan. 11/18 start buspar 10mg po TID for SHEILA. continue all other meds. 11/19 increase buspar 20mg po TID 11/20 appears calmer, less somatically preoccupied. continue current medications. 11/21 sodium stable. continues to present as less dysphoric, calmer. reports of dizziness (VS not hotn nor orthostatic), ?vertigo, will try low dose of meclizine otherwise will consult hospitalist for further management. 8.2- pt more focused on gi issues- and anxiety/forgetfulness- continue to monitor somatic complaints- dc qid poc 11/25 will lowered ropinirole as it may increasing anxiety, noted that buspar was lowered, do not think this medication was causing fogginess as pt appeared much calmer since we added buspar. She was started on low dose clonazepam. 11/26 continue tx. received one time dose xanax, but reported feeling overly sedated (although did not appear sedated) 11/27 somatically p8: Continue current regimen and plansreoccupied, no change in medications. 11/29 continue tx. 11/30: Continue current regimen and plans 12/01: Continue current plans and regimen 12/02 increase buspar 20mg po TID. 12/03: reports depression not improving, c/o feeling low energy and motivation, saying she needs a excelsior picker. start wellbutrin XL 150 daily tomorrow for depression. also c/o anxiety-provoking and nocturnally loud peer. schedule klonopin 0.25 QHS for insomnia. otherwise continue current mgmt. awaiting placement. 12/04: slept well last night, started wellbutrin this morning without incident. continue current mgmt. will be discharging to [facility]. 12/05: slept well. c/o anxiety at 3-330 in the afternoon. pt to ask for klonopin PRN at 2-230. trend anxiety, T/C DC of wellbutrin if anxiety seems reliably increased since starting it. dispo next week likely. 12/06: anxious. schedule klonopin 0.25 mg Qdaily at 1430 per pt request. otherwise continue current mgmt. 12/07: anxious and depressed. c/o insomnia. will give wellbutrin a few more days to see if insomnia subsides and mood improves. per staf, stable and uneventful presentation. 12/08: depressed. agreeable to increase wellbutrin to 300 mg as of tomorrow. otherwise continue current mgmt. sleeping well. 12/09: started wellbutrin 300 today. c/o URI Sx, start guaifenesin. otherwise continue current mgmt. 12/10: coughin much eves/NOC per staff. pt c/o not happy, cough, and poor sleep. continue mucinex and mental health Tx plan otherwise. 12/11/24: Patient appeared to slept for 8 hours, was medication compliant but refused the MiraLax. Denies side effects. She is observed watching TV in common area. Reported that she feel anxious and depressed. She is worry about when she is leaving as she is going to stay by herself. I am depressed . Self reports that she did not sleep well last night as roommate waking her up at night telling her that she saw dogs. She reports normal stomach pain. She would hope to see the GI doctor after discharge. She reported that she will be discharged on 12/17 but not sure the name of the facility or where it is located. Denies safety concerns, denies hallucinations. No coughing observed this morning. 12/12: c/o unremitting depression, saying she does not want to live like this. interested in ECT, educated re the procedure. obtain risk strat and EKG, discuss in rounds tomorrow morning. otherwise continue current mgmt. 12/13: continues to push for ECT. seen by hospitalist, no relative contraindications to the procedure. case d/w patient's daughter chantelle as well, who avers that pt has been in this state for a long time, it's only getting worse, and medications have not been helpful. johanna supports this trial on the wishes of her mother and MD's recommendation. ECT ordered, will get pt on the schedule as soon as possible. 12/14: Cough-productive, O2 sats are lower , CXR positive. Seen by hospitalist. Antibiotics initiated, R/O pneumonia 12/15: Pt unable to tolerate doxycycline. Hospitalist will change to Ceftin. 12/16: ECT held today due to januvia and respiratory virus. mood slightly improved. plan for weds ECT. 12/17: COVID and flu NEG. c/o nausea, exacerbation of chronic condition, h/o gastroparesis. holding januvia. start reglan for gastroparesis. continue current mgmt otherwise. NPO past MN for ECT tomorrow. 12/18: awaiting med clearance for ECT. planning for ECT monday. otherwise continue current mgmt. glucose noted to be elevated since holding januvia the past several days. 12/19 continue current medications. pt hopefull will have ECT tomorrow. NPO from midnight. Reason for continued inpatient stay Substantial Risk for: inability to function Time Spent With Patient Time: Total time managing care of this patient today ____ minutes.
[2024-12-19 11:02] VITALS: BMI 22.5
[2024-12-19 16:07] LABS: Glucose, Whole Blood 115 mg/dL (60-115)
[2024-12-19 20:00] VITALS: BP 151/79; PULSE 102; RESP 16; TEMP 36.1; O2SAT 94
[2024-12-19 21:01] LABS: Glucose, Whole Blood 101 mg/dL (60-115)
[2024-12-20] VITALS (11 sets, daily range): BP systolic 100–172; BP diastolic 58–81; PULSE 79–95; RESP 16–26; TEMP 36.1–36.8; O2SAT 95–100
--- NOTE | 2024-12-20 08:05 | MHC.SHP ---
Pre-Procedural Eval Section A - 24 Hr Update-Section A only Date of Service: 12/20/24 Changes since office visit: Yes Cold of Flu in the past 2 weeks, Yes New Medical Problems, Yes Changes in Medication and Yes Patient answered all questions The patient has been examined within 24 hours of the surgical procedure. The History & Physical has been completed within 30 days and I have reviewed it.: Yes Section B - Complete if H&P > 30 days Chief Complaint: SI with plan to OD on medications, increased anxie Allergies: Allergies Allergy/AdvReac Type Severity Reaction Status Date / Time ampicillin Allergy Rash Verified 10/20/24 19:28 morphine Allergy Rash Verified 10/20/24 19:28 Penicillins Allergy Rash Verified 10/20/24 19:28 pork derived (porcine) Allergy Vomiting Verified 11/10/24 17:49 Plan I have reviewed the history and physical and performed a pertinent physical examination on my patient. No changes have occurred unless specified. Time Spent With Patient Time: Total time managing care of this patient today ____ minutes.
--- NOTE | 2024-12-20 08:06 | HO.ECTPROC ---
ECT Procedure Note Diagnosis/Treatment Date of Service: 12/20/24 Diagnosis: Major Depressive Disorder Current Treatment Number: 1 Treatment: Series Interval Clinical Notes: Patient able to give informed consent to ECT procedure would by Dr. Porter who had entered ECT. Patient medically stable status post treatment for pneumonitis. Patient was treated with unilateral ECT 0.25 pulse with did not have a seizure was restimulated at 0.5 pulse with has seizure 13 seconds. Had been given etomidate 14 succinylcholine 80 with lower etomidate to 10 mg Time: Total time managing care of this patient today ____ minutes. ECT Settings Device: THYMATRON DGx Electrode Placement: Right Unilateral Program/Pulse Width: 0.50 Energy Percent: 100 Seizure Duration By EEG (in seconds): 13 Medications Administration General Anesthetic: Etomidate (14) Muscle Relaxant: Succinylcholine (100) Airway Management Airway Management: Bag Mask Ventilation Treatment Recommendations Electrode Placement: Right Unilateral Program/Pulse Width: 0.50 Energy Percent: 100 Notes: See above section was stimulated x2 hold clonazepam 0.25 mg night prior to ECT Pt Tolerated Procedure w/o Issue: Yes
--- NOTE | 2024-12-20 08:48 | P.CONAN_ITS ---
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 (Acute) Hyponatremia (Acute) Fall (Acute) Constipation (Acute) Forehead laceration (Acute) Diabetes (Acute) RLS (restless legs syndrome) (Acute) MDD (major depressive disorder), recurrent episode, moderate (Acute) Gastroparesis (Acute) Anxiety (Acute) Past Medical History Medical History Tension headache Peripheral neuropathy Akathisia Cerebral microvascular disease RLS (restless legs syndrome) Migraines Diabetes Hypertension Anxiety Functional capacity: independent ambulation Patient : No Family History Family history of problems with anesthesia: No Surgical History History of Problems with Anesthesia: No Social History Social History Household Members: None Housing: House Do you presently have visiting nurse or other home services: Yes Patient Tobacco Use Status: Never used Tobacco Currently Displaying Signs/Symptoms of Drug Intoxication Withdrawal: No Have you been hit, kicked, punched, or otherwise hurt by someone within the past year? If so, by whom?: No Do you feel safe in your current relationship?: No Current Relationship Is there a partner from a previous relationship who is making you feel unsafe now?: No Are you made to feel afraid or neglected: No Spiritual Healthcare Practices: meditation and breathing Advance Directives: No Advance Directives Information Provided: No Do you have thoughts of harming others: None Do you have a plan to hurt others: No Plan Recently lost weight without trying: No Eating poorly because of decreased appetite: No Nutrition Risks: No Nutritional Risk Patient : No : No Poor oral hygiene: No service: No Sexual orientation: Straight/Heterosexual Meds Allergies Allergy/AdvReac Type Severity Reaction Status Date / Time ampicillin Allergy Rash Verified 10/20/24 19:28 morphine Allergy Rash Verified 10/20/24 19:28 Penicillins Allergy Rash Verified 10/20/24 19:28 pork derived (porcine) Allergy Vomiting Verified 11/10/24 17:49 Active Medications: Current Medications Acetaminophen (Acetaminophen 325 Mg Tablet) 650 mg PO Q6H PRN PRN Reason: Headache/Pain, Scale 1-10 Last Admin: 12/13/24 20:08 Dose: 650 mg Al Hydroxide/Mg Hydroxide (Magnesium Hydrox/Alum Hydrox 30 Ml Oral.Susp) 30 ml PO Q6H PRN PRN Reason: Heartburn/Nausea Last Admin: 12/17/24 06:56 Dose: 30 ml Albuterol Sulfate (Albuterol Sulfate (0.083%) 2.5 Mg/3 Ml Vial.Neb) 2.5 mg INHALE ONCE PRN PRN Reason: Shortness of Breath/Wheezing Last Admin: 12/16/24 07:11 Dose: 2.5 mg Albuterol Sulfate (Albuterol Sulfate 90 Mcg 8 Gm Inhaler) 4 puff INHALE Q4H PRN PRN Reason: Shortness Of Breath Or Wheezin Amlodipine Besylate (Amlodipine Besylate 2.5 Mg Tablet) 2.5 mg PO DAILY [facility]; Protocol Last Admin: 12/19/24 09:30 Dose: 2.5 mg Atorvastatin Calcium (Atorvastatin Calcium 20 Mg Tablet) 20 mg PO DAILY [facility] Last Admin: 12/19/24 09:30 Dose: 20 mg Bisacodyl (Bisacodyl 10 Mg Supp.Rect) 10 mg SC BEDTIME PRN PRN Reason: Constipation Last Admin: 11/04/24 20:37 Dose: 10 mg Bupropion HCl (Bupropion Hcl Xl 300 Mg Tab.Er.24h) 300 mg PO DAILY [facility] Last Admin: 12/19/24 09:30 Dose: 300 mg Buspirone HCl (Buspirone Hcl 10 Mg Tablet) 20 mg PO TID [facility] Last Admin: 12/19/24 20:44 Dose: 20 mg Calcium Carbonate (Calcium Carbonate 750 Mg Tab.Chew) 750 mg PO Q4H PRN PRN Reason: Heartburn Last Admin: 11/30/24 21:34 Dose: 750 mg Cefuroxime Axetil (Cefuroxime Axetil 500 Mg Tablet) 500 mg PO DAILY [facility] Stop: 12/23/24 08:59 Last Admin: 12/19/24 09:30 Dose: 500 mg Clonazepam (Clonazepam Odt 0.125 Mg Tab.Rapdis) 0.25 mg PO BEDTIME RICHARD Last Admin: 12/19/24 20:45 Dose: 0.25 mg Clonazepam (Clonazepam Odt 0.125 Mg Tab.Rapdis) 0.25 mg PO DAILY PRN PRN Reason: severe anxiety Last Admin: 12/19/24 10:46 Dose: 0.25 mg Dicyclomine HCl (Dicyclomine Hcl 10 Mg Capsule) 10 mg PO Q4H PRN PRN Reason: abdominal cramping Last Admin: 12/17/24 13:55 Dose: 10 mg Docusate Sodium (Docusate Sodium 100 Mg Capsule) 100 mg PO BID [facility] Last Admin: 12/19/24 20:43 Dose: 100 mg Duloxetine HCl (Duloxetine Hcl 60 Mg Capsule.Dr) 60 mg PO DAILY [facility] Last Admin: 12/19/24 09:30 Dose: 60 mg Fluticasone/Vilanterol (Fluticasone/Vilanterol 100/25 Blst.W.Dev) 1 puff INHALE RDAILY [facility] Last Admin: 12/19/24 09:24 Dose: 1 puff Gabapentin (Gabapentin 100 Mg Capsule) 100 mg PO TID [facility] Last Admin: 12/19/24 20:44 Dose: 100 mg Glipizide (Glipizide Xl 2.5 Mg Tab.Er.24) 2.5 mg PO DAILY [facility] Last Admin: 12/19/24 09:29 Dose: 2.5 mg Guaifenesin (Guaifenesin La 600 Mg Tab.Er.12h) 1,200 mg PO BID PRN PRN Reason: Cough Last Admin: 12/16/24 14:35 Dose: 1,200 mg Insulin Human Lispro (Insulin Lispro 100 Unit/Ml 3 Ml Vial) 5 unit SUBCUT QIDACHS [facility]; Protocol Last Admin: 12/19/24 21:05 Dose: Not Given Lisinopril (Lisinopril 2.5 Mg Tablet) 2.5 mg PO DAILY [facility]; Protocol Last Admin: 12/19/24 09:30 Dose: 2.5 mg Magnesium Hydroxide (Milk Of Magnesia 30 Ml Oral.Susp) 30 ml PO DAILY PRN PRN Reason: Constipation Last Admin: 11/04/24 16:49 Dose: 30 ml Metoclopramide HCl (Metoclopramide Hcl Oral Soln 10 Mg/10 Ml Solution) 5 mg PO QIDACHS [facility] Last Admin: 12/20/24 05:50 Dose: Not Given Mirtazapine (Mirtazapine 30 Mg Tablet) 30 mg PO BEDTIME [facility] Last Admin: 12/19/24 20:44 Dose: 30 mg Omeprazole (Omeprazole 20 Mg Capsule.Dr) 20 mg PO BID@0630,1630 [facility] Last Admin: 12/20/24 05:50 Dose: Not Given Ondansetron HCl (Ondansetron Odt 4 Mg Tab.Rapdis) 4 mg TRANSLINGU Q4H PRN PRN Reason: Nausea and Vomiting Last Admin: 12/17/24 11:23 Dose: 4 mg Polyethylene Glycol (Polyethylene Glycol 3350 17 Gm Powd.Pack) 17 gm PO BID [facility] Last Admin: 12/19/24 20:48 Dose: Not Given Pramipexole Dihydrochloride (Pramipexole Di-Hcl 0.125 Mg Tablet) 0.125 mg PO DAILY [facility] Last Admin: 12/19/24 09:30 Dose: 0.125 mg Pyridoxine HCl (Pyridoxine Hcl (Vitamin B6) 50 Mg Tablet) 50 mg PO DAILY [facility] Last Admin: 12/19/24 09:38 Dose: 50 mg Ropinirole HCl (Ropinirole Hcl 2 Mg Tablet) 2 mg PO DAILY@1700 [facility] Last Admin: 12/19/24 16:12 Dose: 2 mg Senna (Sennosides 8.6 Mg Tablet) 17.2 mg PO BEDTIME [facility] On Hold: 11/06/24 16:27 Last Admin: 11/05/24 19:39 Dose: 17.2 mg Simethicone (Simethicone 80 Mg Tab.Chew) 80 mg PO QIDWMHS [facility] Last Admin: 12/19/24 20:48 Dose: 80 mg Sitagliptin Phosphate (Sitagliptin Phosphate 25 Mg Tablet) 25 mg PO DAILY [facility] On Hold: 12/16/24 08:20 Last Admin: 12/15/24 08:20 Dose: 25 mg Trazodone HCl (Trazodone Hcl 50 Mg Tablet) 50 mg PO BEDTIME MRX1 PRN PRN Reason: Insomnia Last Admin: 12/19/24 20:53 Dose: 50 mg Home Medications ?Medication ?Instructions ?Recorded ?Confirmed ?Last Taken ?Type atorvastatin 20 mg tablet 20 mg PO DAILY 04/01/23 0603/31/23 21:00 History ondansetron HCl 4 mg tablet 4 mg PO Q8H PRN nausea 01/1410/21/24 03/31/23 21:00 History pantoprazole 40 mg tablet,delayed 40 mg PO BID@0630,16 30 04/01/23 10/21/24 03/31/23 21:00 History release sitagliptin phosphate 100 mg 100 mg PO DAILY 04/01/23 10/21/24 03/31/23 21:00 History tablet (Januvia) albuterol sulfate 90 mcg/actuation 2 puff inhalation Q 4-6H PRN 10/21/24 10/21/24 Unknown History aerosol inhaler Shortness Of Breath Or Wheez ing amlodipine 2.5 mg tablet 2.5 mg PO DAILY 10/21/24 Unknown History duloxetine 20 mg capsule,delayed 40 mg PO DAILY 10/21/24 Unknown History release fluticasone furoate 100 1 ea inhalation DAILY 10/21/24 Unknown History mcg-vilanterol 25 mcg/dose inhalation powder (Breo Ellipta) gabapentin 100 mg capsule 100 mg PO TID 10/21/2410/21 Unknown History gabapentin 600 mg tablet 600 mg PO BEDTIME 10/21/24 0 10/21/24 Unknown History glipizide 2.5 mg tablet, extended 2.5 mg PO DAILY 09/2410/21/24 Unknown Hist ory release 24 hr lamotrigine 100 mg tablet 100 mg PO DAILY 10/21/24 Unknown History lisinopril 20 mg tablet 20 mg PO DAILY 10/21/2409/24 Unknown History lorazepam 0.5 mg tablet 0.25 mg PO BID 10/21/2409/24 Unknown History mirtazapine 45 mg tablet 45 mg PO BEDTIME 10/21/24 Unknown History olanzapine 2.5 mg tablet 2.5 mg PO BEDTIME 10/21/24 0 10/21/24 Unknown History pramipexole 0.25 mg tablet 0.25 mg PO BID 10/21/24 Unknown History propranolol 20 mg tablet 20 mg PO DAILY 10/21/2409/24 Unknown History Exam Height,Weight and Vital Signs: Height 4 ft 10 in Weight 48.807 kg Last Vital Signs Temp 98.2 F 12/20/24 08:26 Pulse 85 12/20/24 08:41 Resp 22 H 12/20/24 08:41 BP 114/70 12/20/24 08:41 Pulse Ox 99 12/20/24 08:41 O2 Del Method Room Air 12/20/24 08:41 O2 Flow Rate 3 12/20/24 08:36 Pertinent Lab Results Pertinent Lab Results: Laboratory Tests 10/20/24 10/20/24 10/22/24 19:59 21:45 07:23 WBC 7.6 RBC 3.65 L Hgb 10.8 L Hct 31.3 L MCV 85.8 MCH 29.6 MCHC 34.5 RDW 13.6 Plt Count 213 MPV 8.7 L Immature Gran % (Auto) 0.3 Neut % (Auto) 58.4 Lymph % (Auto) 29.8 [place] % (Auto) 9.9 Eos % (Auto) 1.1 Baso % (Auto) 0.5 Lymph # (Auto) 2.3 [place] # (Auto) 0.8 Eos # (Auto) 0.1 Baso # (Auto) 0.0 Abs Immat Gran (auto) 0.02 Absolute Neuts (auto) 4.4 Absolute Nucleated RBC 0.000 Nucleated RBC % (auto) 0.0 Smear Tech's Comments Hold Purple Top VBG pH VBG pCO2 VBG pO2 VBG HCO3 VBG O2 Saturation VBG Base Excess Sodium 140 142 Potassium 4.2 4.6 Chloride 108 108 Carbon Dioxide 23 23 Anion Gap 13 16 BUN 33 H 22 H Creatinine 1.15 1.09 Estim Creat Clear Calc 26.9 30.7 Estimated GFR 46 49 POC Glucose Random Glucose 96 204 H Estimat Average Glucose 160 Hemoglobin A1c % 7.2 H Osmolality Lactic Acid Calcium 9.3 9.6 Magnesium Iron TIBC % Saturation Unsat Iron Binding Total Bilirubin 0.5 AST 21 ALT 25 Alkaline Phosphatase 67 Total Protein 7.4 Albumin 4.9 Triglycerides 102 Cholesterol 148 LDL Cholesterol, Calc 68 HDL Cholesterol 60 Lipase TSH 2.14 Free T4 1.15 Urine Color Yellow Urine Appearance Clear Urine pH 7.0 Ur Specific [place] 1.010 Urine Protein Negative Urine Glucose (UA) Negative Urine Ketones Negative Urine Blood Negative Urine Nitrite Negative Ur Leukocyte Esterase Large (3+) H Urine RBC 0-2 Urine WBC 21-50 H Ur Squamous Epith Cells 0-2 Urine Bacteria Trace Hyaline Casts 0-2 Urine Osmolality Ur Random Sodium Urine Opiates Screen POSITIVE H Ur Buprenorphine Scrn Not Detected Ur Oxycodone Screen Not Detected Urine Methadone Screen Not Detected Urine Fentanyl Screen Not Detected Ur Barbiturates Screen Not Detected Carbamazepine Ur Phencyclidine Scrn Not Detected Ur Amphetamines Screen Not Detected U Benzodiazepines Scrn Not Detected Urine Cocaine Screen Not Detected U Marijuana (THC) Screen Not Detected COVID-19 ([facility]) COVID-19 Clin Com Influenza Type A (AMANDA) Influenza Type B (AMANDA) Influenza A & B Note TB Test (T-Spot) Com TB Test Nil Control TB Test Panel A TB Test Panel B TB Test Positive Cntrl 10/23/24 10/23/24 10/23/24 15:19 15:20 16:31 WBC 6.4 RBC 4.03 L Hgb 11.8 L Hct 34.7 L MCV 86.1 MCH 29.3 MCHC 34.0 RDW 13.6 Plt Count 221 MPV 9.8 Immature Gran % (Auto) 0.3 Neut % (Auto) 64.6 Lymph % (Auto) 23.0 [place] % (Auto) 10.4 Eos % (Auto) 1.2 Baso % (Auto) 0.5 Lymph # (Auto) 1.5 [place] # (Auto) 0.7 Eos # (Auto) 0.1 Baso # (Auto) 0.0 Abs Immat Gran (auto) 0.02 Absolute Neuts (auto) 4.2 Absolute Nucleated RBC 0.000 Nucleated RBC % (auto) 0.0 Smear Tech's Comments VERIFIED Hold Purple Top VBG pH VBG pCO2 VBG pO2 VBG HCO3 VBG O2 Saturation VBG Base Excess Sodium 137 Potassium 4.5 Chloride 104 Carbon Dioxide 24 Anion Gap 14 BUN 26 H Creatinine 1.02 Estim Creat Clear Calc 32.8 Estimated GFR 53 POC Glucose 132 H Random Glucose 158 H Estimat Average Glucose Hemoglobin A1c % Osmolality Lactic Acid Calcium 9.3 Magnesium Iron TIBC % Saturation Unsat Iron Binding Total Bilirubin AST ALT Alkaline Phosphatase Total Protein Albumin Triglycerides Cholesterol LDL Cholesterol, Calc HDL Cholesterol Lipase TSH Free T4 Urine Color Urine Appearance Urine pH Ur Specific [place] Urine Protein Urine Glucose (UA) Urine Ketones Urine Blood Urine Nitrite Ur Leukocyte Esterase Urine RBC Urine WBC Ur Squamous Epith Cells Urine Bacteria Hyaline Casts Urine Osmolality Ur Random Sodium Urine Opiates Screen Ur Buprenorphine Scrn Ur Oxycodone Screen Urine Methadone Screen Urine Fentanyl Screen Ur Barbiturates Screen Carbamazepine Ur Phencyclidine Scrn Ur Amphetamines Screen U Benzodiazepines Scrn Urine Cocaine Screen U Marijuana (THC) Screen COVID-19 ([facility]) COVID-19 Clin Com Influenza Type A (AMANDA) Influenza Type B (AMANDA) Influenza A & B Note TB Test (T-Spot) Com TB Test Nil Control TB Test Panel A TB Test Panel B TB Test Positive [facility] 10/24/24 10/24/24 10/24/24 06:51 11:08 12:19 WBC RBC Hgb Hct MCV MCH MCHC RDW Plt Count MPV Immature Gran % (Auto) Neut % (Auto) Lymph % (Auto) [place] % (Auto) Eos % (Auto) Baso % (Auto) Lymph # (Auto) [place] # (Auto) Eos # (Auto) Baso # (Auto) Abs Immat Gran (auto) Absolute Neuts (auto) Absolute Nucleated RBC Nucleated RBC % (auto) Smear Tech's Comments Hold Purple Top VBG pH VBG pCO2 VBG pO2 VBG HCO3 VBG O2 Saturation VBG Base Excess Sodium Potassium Chloride Carbon Dioxide Anion Gap BUN Creatinine Estim Creat Clear Calc Estimated GFR POC Glucose 204 H 95 Random Glucose Estimat Average Glucose Hemoglobin A1c % Osmolality Lactic Acid Calcium Magnesium Iron 65 TIBC 216 L % Saturation 30 Unsat Iron Binding 151 Total Bilirubin AST ALT Alkaline Phosphatase Total Protein Albumin Triglycerides Cholesterol LDL Cholesterol, Calc HDL Cholesterol Lipase TSH Free T4 Urine Color Urine Appearance Urine pH Ur Specific [place] Urine Protein Urine Glucose (UA) Urine Ketones Urine Blood Urine Nitrite Ur Leukocyte Esterase Urine RBC Urine WBC Ur Squamous Epith Cells Urine Bacteria Hyaline Casts Urine Osmolality Ur Random Sodium Urine Opiates Screen Ur Buprenorphine Scrn Ur Oxycodone Screen Urine Methadone Screen Urine Fentanyl Screen Ur Barbiturates Screen Carbamazepine Ur Phencyclidine Scrn Ur Amphetamines Screen U Benzodiazepines Scrn Urine Cocaine Screen U Marijuana (THC) Screen COVID-19 ([facility]) COVID-19 Clin Com Influenza Type A (AMANDA) Influenza Type B (AMANDA) Influenza A & B Note TB Test (T-Spot) Com TB Test Nil Control TB Test Panel A TB Test Panel B TB Test Positive [facility] 10/24/24 10/25/24 10/25/24 16:06 05:55 11:15 WBC RBC Hgb Hct MCV MCH MCHC RDW Plt Count MPV Immature Gran % (Auto) Neut % (Auto) Lymph % (Auto) [place] % (Auto) Eos % (Auto) Baso % (Auto) Lymph # (Auto) [place] # (Auto) Eos # (Auto) Baso # (Auto) Abs Immat Gran (auto) Absolute Neuts (auto) Absolute Nucleated RBC Nucleated RBC % (auto) Smear Tech's Comments Hold Purple Top VBG pH VBG pCO2 VBG pO2 VBG HCO3 VBG O2 Saturation VBG Base Excess Sodium Potassium Chloride Carbon Dioxide Anion Gap BUN Creatinine Estim Creat Clear Calc Estimated GFR POC Glucose 142 H 190 H 177 H Random Glucose Estimat Average Glucose Hemoglobin A1c % Osmolality Lactic Acid Calcium Magnesium Iron TIBC % Saturation Unsat Iron Binding Total Bilirubin AST ALT Alkaline Phosphatase Total Protein Albumin Triglycerides Cholesterol LDL Cholesterol, Calc HDL Cholesterol Lipase TSH Free T4 Urine Color Urine Appearance Urine pH Ur Specific [place] Urine Protein Urine Glucose (UA) Urine Ketones Urine Blood Urine Nitrite Ur Leukocyte Esterase Urine RBC Urine WBC Ur Squamous Epith Cells Urine Bacteria Hyaline Casts Urine Osmolality Ur Random Sodium Urine Opiates Screen Ur Buprenorphine Scrn Ur Oxycodone Screen Urine Methadone Screen Urine Fentanyl Screen Ur Barbiturates Screen Carbamazepine Ur Phencyclidine Scrn Ur Amphetamines Screen U Benzodiazepines Scrn Urine Cocaine Screen U Marijuana (THC) Screen COVID-19 ([facility]) COVID-19 Clin Com Influenza Type A (AMANDA) Influenza Type B (AMANDA) Influenza A & B Note TB Test (T-Spot) Com TB Test Nil Control TB Test Panel A TB Test Panel B TB Test Positive Cntrl 10/25/24 10/26/24 10/26/24 16:33 07:05 10:57 WBC RBC Hgb Hct MCV MCH MCHC RDW Plt Count MPV Immature Gran % (Auto) Neut % (Auto) Lymph % (Auto) [place] % (Auto) Eos % (Auto) Baso % (Auto) Lymph # (Auto) [place] # (Auto) Eos # (Auto) Baso # (Auto) Abs Immat Gran (auto) Absolute Neuts (auto) Absolute Nucleated RBC Nucleated RBC % (auto) Smear Tech's Comments Hold Purple Top VBG pH VBG pCO2 VBG pO2 VBG HCO3 VBG O2 Saturation VBG Base Excess Sodium Potassium Chloride Carbon Dioxide Anion Gap BUN Creatinine Estim Creat Clear Calc Estimated GFR POC Glucose 170 H 185 H 189 H Random Glucose Estimat Average Glucose Hemoglobin A1c % Osmolality Lactic Acid Calcium Magnesium Iron TIBC % Saturation Unsat Iron Binding Total Bilirubin AST ALT Alkaline Phosphatase Total Protein Albumin Triglycerides Cholesterol LDL Cholesterol, Calc HDL Cholesterol Lipase TSH Free T4 Urine Color Urine Appearance Urine pH Ur Specific [place] Urine Protein Urine Glucose (UA) Urine Ketones Urine Blood Urine Nitrite Ur Leukocyte Esterase Urine RBC Urine WBC Ur Squamous Epith Cells Urine Bacteria Hyaline Casts Urine Osmolality Ur Random Sodium Urine Opiates Screen Ur Buprenorphine Scrn Ur Oxycodone Screen Urine Methadone Screen Urine Fentanyl Screen Ur Barbiturates Screen Carbamazepine Ur Phencyclidine Scrn Ur Amphetamines Screen U Benzodiazepines Scrn Urine Cocaine Screen U Marijuana (THC) Screen COVID-19 ([facility]) COVID-19 Clin Com Influenza Type A (AMANDA) Influenza Type B (AMANDA) Influenza A & B Note TB Test (T-Spot) Com TB Test Nil Control TB Test Panel A TB Test Panel B TB Test Positive Cntrl 10/26/24 10/27/24 10/27/24 16:19 06:45 11:24 WBC RBC Hgb Hct MCV MCH MCHC RDW Plt Count MPV Immature Gran % (Auto) Neut % (Auto) Lymph % (Auto) [place] % (Auto) Eos % (Auto) Baso % (Auto) Lymph # (Auto) [place] # (Auto) Eos # (Auto) Baso # (Auto) Abs Immat Gran (auto) Absolute Neuts (auto) Absolute Nucleated RBC Nucleated RBC % (auto) Smear Tech's Comments Hold Purple Top VBG pH VBG pCO2 VBG pO2 VBG HCO3 VBG O2 Saturation VBG Base Excess Sodium Potassium Chloride Carbon Dioxide Anion Gap BUN Creatinine Estim Creat Clear Calc Estimated GFR POC Glucose 170 H 215 H 117 H Random Glucose Estimat Average Glucose Hemoglobin A1c % Osmolality Lactic Acid Calcium Magnesium Iron TIBC % Saturation Unsat Iron Binding Total Bilirubin AST ALT Alkaline Phosphatase Total Protein Albumin Triglycerides Cholesterol LDL Cholesterol, Calc HDL Cholesterol Lipase TSH Free T4 Urine Color Urine Appearance Urine pH Ur Specific [place] Urine Protein Urine Glucose (UA) Urine Ketones Urine Blood Urine Nitrite Ur Leukocyte Esterase Urine RBC Urine WBC Ur Squamous Epith Cells Urine Bacteria Hyaline Casts Urine Osmolality Ur Random Sodium Urine Opiates Screen Ur Buprenorphine Scrn Ur Oxycodone Screen Urine Methadone Screen Urine Fentanyl Screen Ur Barbiturates Screen Carbamazepine Ur Phencyclidine Scrn Ur Amphetamines Screen U Benzodiazepines Scrn Urine Cocaine Screen U Marijuana (THC) Screen COVID-19 ([facility]) COVID-19 Clin Com Influenza Type A (AMANDA) Influenza Type B (AMANDA) Influenza A & B Note TB Test (T-Spot) Com TB Test Nil Control TB Test Panel A TB Test Panel B TB Test Positive [facility] 10/27/24 10/28/24 10/28/24 16:14 06:32 10:50 WBC RBC Hgb Hct MCV MCH MCHC RDW Plt Count MPV Immature Gran % (Auto) Neut % (Auto) Lymph % (Auto) [place] % (Auto) Eos % (Auto) Baso % (Auto) Lymph # (Auto) [place] # (Auto) Eos # (Auto) Baso # (Auto) Abs Immat Gran (auto) Absolute Neuts (auto) Absolute Nucleated RBC Nucleated RBC % (auto) Smear Tech's Comments Hold Purple Top VBG pH VBG pCO2 VBG pO2 VBG HCO3 VBG O2 Saturation VBG Base Excess Sodium Potassium Chloride Carbon Dioxide Anion Gap BUN Creatinine Estim Creat Clear Calc Estimated GFR POC Glucose 156 H 195 H 288 H Random Glucose Estimat Average Glucose Hemoglobin A1c % Osmolality Lactic Acid Calcium Magnesium Iron TIBC % Saturation Unsat Iron Binding Total Bilirubin AST ALT Alkaline Phosphatase Total Protein Albumin Triglycerides Cholesterol LDL Cholesterol, Calc HDL Cholesterol Lipase TSH Free T4 Urine Color Urine Appearance Urine pH Ur Specific [place] Urine Protein Urine Glucose (UA) Urine Ketones Urine Blood Urine Nitrite Ur Leukocyte Esterase Urine RBC Urine WBC Ur Squamous Epith Cells Urine Bacteria Hyaline Casts Urine Osmolality Ur Random Sodium Urine Opiates Screen Ur Buprenorphine Scrn Ur Oxycodone Screen Urine Methadone Screen Urine Fentanyl Screen Ur Barbiturates Screen Carbamazepine Ur Phencyclidine Scrn Ur Amphetamines Screen U Benzodiazepines Scrn Urine Cocaine Screen U Marijuana (THC) Screen COVID-19 ([facility]) COVID-19 Clin Com Influenza Type A (AMANDA) Influenza Type B (AMANDA) Influenza A & B Note TB Test (T-Spot) Com TB Test Nil Control TB Test Panel A TB Test Panel B TB Test Positive [facility] 10/28/24 10/28/24 10/29/24 15:54 20:28 06:47 WBC RBC Hgb Hct MCV MCH MCHC RDW Plt Count MPV Immature Gran % (Auto) Neut % (Auto) Lymph % (Auto) [place] % (Auto) Eos % (Auto) Baso % (Auto) Lymph # (Auto) [place] # (Auto) Eos # (Auto) Baso # (Auto) Abs Immat Gran (auto) Absolute Neuts (auto) Absolute Nucleated RBC Nucleated RBC % (auto) Smear Tech's Comments Hold Purple Top VBG pH VBG pCO2 VBG pO2 VBG HCO3 VBG O2 Saturation VBG Base Excess Sodium Potassium Chloride Carbon Dioxide Anion Gap BUN Creatinine Estim Creat Clear Calc Estimated GFR POC Glucose 132 H 210 H 188 H Random Glucose Estimat Average Glucose Hemoglobin A1c % Osmolality Lactic Acid Calcium Magnesium Iron TIBC % Saturation Unsat Iron Binding Total Bilirubin AST ALT Alkaline Phosphatase Total Protein Albumin Triglycerides Cholesterol LDL Cholesterol, Calc HDL Cholesterol Lipase TSH Free T4 Urine Color Urine Appearance Urine pH Ur Specific [place] Urine Protein Urine Glucose (UA) Urine Ketones Urine Blood Urine Nitrite Ur Leukocyte Esterase Urine RBC Urine WBC Ur Squamous Epith Cells Urine Bacteria Hyaline Casts Urine Osmolality Ur Random Sodium Urine Opiates Screen Ur Buprenorphine Scrn Ur Oxycodone Screen Urine Methadone Screen Urine Fentanyl Screen Ur Barbiturates Screen Carbamazepine Ur Phencyclidine Scrn Ur Amphetamines Screen U Benzodiazepines Scrn Urine Cocaine Screen U Marijuana (THC) Screen COVID-19 ([facility]) COVID-19 Clin Com Influenza Type A (AMANDA) Influenza Type B (AMANDA) Influenza A & B Note TB Test (T-Spot) Com TB Test Nil Control TB Test Panel A TB Test Panel B TB Test [facility] 10/29/24 10/29/24 11:16 15:42 16:24 WBC 11.0 H RBC 3.49 L Hgb 10.4 L Hct 29.9 L MCV 85.7 MCH 29.8 MCHC 34.8 RDW 13.7 Plt Count 271 MPV 8.8 L Immature Gran % (Auto) 0.5 H Neut % (Auto) 71.9 Lymph % (Auto) 14.5 L [place] % (Auto) 11.9 H Eos % (Auto) 0.7 Baso % (Auto) 0.5 Lymph # (Auto) 1.6 [place] # (Auto) 1.3 H Eos # (Auto) 0.1 Baso # (Auto) 0.1 Abs Immat Gran (auto) 0.05 H Absolute Neuts (auto) 7.9 Absolute Nucleated RBC 0.000 Nucleated RBC % (auto) 0.0 Smear Tech's Comments Hold Purple Top VBG pH VBG pCO2 VBG pO2 VBG HCO3 VBG O2 Saturation VBG Base Excess Sodium 133 L Potassium 4.7 Chloride 102 Carbon Dioxide 24 Anion Gap 12 BUN 39 H Creatinine 1.24 Estim Creat Clear Calc 27.3 Estimated GFR 42 POC Glucose 265 H 156 H Random Glucose 180 H Estimat Average Glucose Hemoglobin A1c % Osmolality Lactic Acid Calcium 8.9 Magnesium Iron TIBC % Saturation Unsat Iron Binding Total Bilirubin 0.4 AST 15 ALT 21 Alkaline Phosphatase 67 Total Protein 6.4 L Albumin 4.1 Triglycerides Cholesterol LDL Cholesterol, Calc HDL Cholesterol Lipase TSH Free T4 Urine Color Urine Appearance Urine pH Ur Specific [place] Urine Protein Urine Glucose (UA) Urine Ketones Urine Blood Urine Nitrite Ur Leukocyte Esterase Urine RBC Urine WBC Ur Squamous Epith Cells Urine Bacteria Hyaline Casts Urine Osmolality Ur Random Sodium Urine Opiates Screen Ur Buprenorphine Scrn Ur Oxycodone Screen Urine Methadone Screen Urine Fentanyl Screen Ur Barbiturates Screen Carbamazepine Ur Phencyclidine Scrn Ur Amphetamines Screen U Benzodiazepines Scrn Urine Cocaine Screen U Marijuana (THC) Screen COVID-19 ([facility]ES[facility]) COVID-19 Clin Com Influenza Type A (AMANDA) Influenza Type B (AMANDA) Influenza A & B Note TB Test (T-Spot) Com TB Test Nil Control TB Test Panel A TB Test Panel B TB Test Positive [facility] 10/30/24 10/30/24 10/30/24 06:46 11:13 16:09 WBC RBC Hgb Hct MCV MCH MCHC RDW Plt Count MPV Immature Gran % (Auto) Neut % (Auto) Lymph % (Auto) [place] % (Auto) Eos % (Auto) Baso % (Auto) Lymph # (Auto) [place] # (Auto) Eos # (Auto) Baso # (Auto) Abs Immat Gran (auto) Absolute Neuts (auto) Absolute Nucleated RBC Nucleated RBC % (auto) Smear Tech's Comments Hold Purple Top VBG pH VBG pCO2 VBG pO2 VBG HCO3 VBG O2 Saturation VBG Base Excess Sodium Potassium Chloride Carbon Dioxide Anion Gap BUN Creatinine Estim Creat Clear Calc Estimated GFR POC Glucose 195 H 194 H 143 H Random Glucose Estimat Average Glucose Hemoglobin A1c % Osmolality Lactic Acid Calcium Magnesium Iron TIBC % Saturation Unsat Iron Binding Total Bilirubin AST ALT Alkaline Phosphatase Total Protein Albumin Triglycerides Cholesterol LDL Cholesterol, Calc HDL Cholesterol Lipase TSH Free T4 Urine Color Urine Appearance Urine pH Ur Specific [place] Urine Protein Urine Glucose (UA) Urine Ketones Urine Blood Urine Nitrite Ur Leukocyte Esterase Urine RBC Urine WBC Ur Squamous Epith Cells Urine Bacteria Hyaline Casts Urine Osmolality Ur Random Sodium Urine Opiates Screen Ur Buprenorphine Scrn Ur Oxycodone Screen Urine Methadone Screen Urine Fentanyl Screen Ur Barbiturates Screen Carbamazepine Ur Phencyclidine Scrn Ur Amphetamines Screen U Benzodiazepines Scrn Urine Cocaine Screen U Marijuana (THC) Screen COVID-19 ([facility]) COVID-19 Clin Com Influenza Type A (AMANDA) Influenza Type B (AMANDA) Influenza A & B Note TB Test (T-Spot) Com TB Test Nil Control TB Test Panel A TB Test Panel B TB Test Positive Cntrl 10/30/24 10/30/24 10/31/24 17:25 19:55 06:33 WBC 11.2 H RBC 3.63 L Hgb 10.7 L Hct 31.4 L MCV 86.5 MCH 29.5 MCHC 34.1 RDW 13.5 Plt Count 288 MPV 8.9 L Immature Gran % (Auto) 0.5 H Neut % (Auto) 74.7 H Lymph % (Auto) 13.2 L [place] % (Auto) 10.5 Eos % (Auto) 0.7 Baso % (Auto) 0.4 Lymph # (Auto) 1.5 [place] # (Auto) 1.2 Eos # (Auto) 0.1 Baso # (Auto) 0.0 Abs Immat Gran (auto) 0.06 H Absolute Neuts (auto) 8.4 H Absolute Nucleated RBC 0.000 Nucleated RBC % (auto) 0.0 Smear Tech's Comments Hold Purple Top VBG pH VBG pCO2 VBG pO2 VBG HCO3 VBG O2 Saturation VBG Base Excess Sodium 136 Potassium 5.1 Chloride 101 Carbon Dioxide 26 Anion Gap 14 BUN 34 H Creatinine 1.17 Estim Creat Clear Calc 28.9 Estimated GFR 45 POC Glucose 244 H 173 H Random Glucose 225 H Estimat Average Glucose Hemoglobin A1c % Osmolality Lactic Acid Calcium 9.2 Magnesium Iron TIBC % Saturation Unsat Iron Binding Total Bilirubin 0.5 AST 15 ALT 23 Alkaline Phosphatase 64 Total Protein 6.8 Albumin 4.3 Triglycerides Cholesterol LDL Cholesterol, Calc HDL Cholesterol Lipase TSH Free T4 Urine Color Urine Appearance Urine pH Ur Specific [place] Urine Protein Urine Glucose (UA) Urine Ketones Urine Blood Urine Nitrite Ur Leukocyte Esterase Urine RBC Urine WBC Ur Squamous Epith Cells Urine Bacteria Hyaline Casts Urine Osmolality Ur Random Sodium Urine Opiates Screen Ur Buprenorphine Scrn Ur Oxycodone Screen Urine Methadone Screen Urine Fentanyl Screen Ur Barbiturates Screen Carbamazepine Ur Phencyclidine Scrn Ur Amphetamines Screen U Benzodiazepines Scrn Urine Cocaine Screen U Marijuana (THC) Screen COVID-19 ([facility]ES[facility]) COVID-19 Clin Com Influenza Type A (AMANDA) Influenza Type B (AMANDA) Influenza A & B Note TB Test (T-Spot) Com TB Test Nil Control TB Test Panel A TB Test Panel B TB Test Positive [facility] 10/31/24 10/31/24 11/01/24 11:26 16:31 06:33 WBC RBC Hgb Hct MCV MCH MCHC RDW Plt Count MPV Immature Gran % (Auto) Neut % (Auto) Lymph % (Auto) [place] % (Auto) Eos % (Auto) Baso % (Auto) Lymph # (Auto) [place] # (Auto) Eos # (Auto) Baso # (Auto) Abs Immat Gran (auto) Absolute Neuts (auto) Absolute Nucleated RBC Nucleated RBC % (auto) Smear Tech's Comments Hold Purple Top VBG pH VBG pCO2 VBG pO2 VBG HCO3 VBG O2 Saturation VBG Base Excess Sodium Potassium Chloride Carbon Dioxide Anion Gap BUN Creatinine Estim Creat Clear Calc Estimated GFR POC Glucose 178 H 169 H 199 H Random Glucose Estimat Average Glucose Hemoglobin A1c % Osmolality Lactic Acid Calcium Magnesium Iron TIBC % Saturation Unsat Iron Binding Total Bilirubin AST ALT Alkaline Phosphatase Total Protein Albumin Triglycerides Cholesterol LDL Cholesterol, Calc HDL Cholesterol Lipase TSH Free T4 Urine Color Urine Appearance Urine pH Ur Specific [place] Urine Protein Urine Glucose (UA) Urine Ketones Urine Blood Urine Nitrite Ur Leukocyte Esterase Urine RBC Urine WBC Ur Squamous Epith Cells Urine Bacteria Hyaline Casts Urine Osmolality Ur Random Sodium Urine Opiates Screen Ur Buprenorphine Scrn Ur Oxycodone Screen Urine Methadone Screen Urine Fentanyl Screen Ur Barbiturates Screen Carbamazepine Ur Phencyclidine Scrn Ur Amphetamines Screen U Benzodiazepines Scrn Urine Cocaine Screen U Marijuana (THC) Screen COVID-19 ([facility]) COVID-19 Clin Com Influenza Type A (AMANDA) Influenza Type B (AMANDA) Influenza A & B Note TB Test (T-Spot) Com TB Test Nil Control TB Test Panel A TB Test Panel B TB Test Positive [facility] 11/01/24 11/01/24 11/01/24 11:05 16:24 19:41 WBC RBC Hgb Hct MCV MCH MCHC RDW Plt Count MPV Immature Gran % (Auto) Neut % (Auto) Lymph % (Auto) [place] % (Auto) Eos % (Auto) Baso % (Auto) Lymph # (Auto) [place] # (Auto) Eos # (Auto) Baso # (Auto) Abs Immat Gran (auto) Absolute Neuts (auto) Absolute Nucleated RBC Nucleated RBC % (auto) Smear Tech's Comments Hold Purple Top VBG pH VBG pCO2 VBG pO2 VBG HCO3 VBG O2 Saturation VBG Base Excess Sodium Potassium Chloride Carbon Dioxide Anion Gap BUN Creatinine Estim Creat Clear Calc Estimated GFR POC Glucose 257 H 124 H 209 H Random Glucose Estimat Average Glucose Hemoglobin A1c % Osmolality Lactic Acid Calcium Magnesium Iron TIBC % Saturation Unsat Iron Binding Total Bilirubin AST ALT Alkaline Phosphatase Total Protein Albumin Triglycerides Cholesterol LDL Cholesterol, Calc HDL Cholesterol Lipase TSH Free T4 Urine Color Urine Appearance Urine pH Ur Specific [place] Urine Protein Urine Glucose (UA) Urine Ketones Urine Blood Urine Nitrite Ur Leukocyte Esterase Urine RBC Urine WBC Ur Squamous Epith Cells Urine Bacteria Hyaline Casts Urine Osmolality Ur Random Sodium Urine Opiates Screen Ur Buprenorphine Scrn Ur Oxycodone Screen Urine Methadone Screen Urine Fentanyl Screen Ur Barbiturates Screen Carbamazepine Ur Phencyclidine Scrn Ur Amphetamines Screen U Benzodiazepines Scrn Urine Cocaine Screen U Marijuana (THC) Screen COVID-19 ([facility]) COVID-19 Clin Com Influenza Type A (AMANDA) Influenza Type B (AMANDA) Influenza A & B Note TB Test (T-Spot) Com TB Test Nil Control TB Test Panel A TB Test Panel B TB Test Positive [facility] 11/02/24 11/02/24 11/02/24 06:34 11:26 11:28 WBC RBC Hgb Hct MCV MCH MCHC RDW Plt Count MPV Immature Gran % (Auto) Neut % (Auto) Lymph % (Auto) [place] % (Auto) Eos % (Auto) Baso % (Auto) Lymph # (Auto) [place] # (Auto) Eos # (Auto) Baso # (Auto) Abs Immat Gran (auto) Absolute Neuts (auto) Absolute Nucleated RBC Nucleated RBC % (auto) Smear Tech's Comments Hold Purple Top VBG pH VBG pCO2 VBG pO2 VBG HCO3 VBG O2 Saturation VBG Base Excess Sodium Potassium Chloride Carbon Dioxide Anion Gap BUN Creatinine Estim Creat Clear Calc Estimated GFR POC Glucose 185 H 445 H* 469 H* Random Glucose Estimat Average Glucose Hemoglobin A1c % Osmolality Lactic Acid Calcium Magnesium Iron TIBC % Saturation Unsat Iron Binding Total Bilirubin AST ALT Alkaline Phosphatase Total Protein Albumin Triglycerides Cholesterol LDL Cholesterol, Calc HDL Cholesterol Lipase TSH Free T4 Urine Color Urine Appearance Urine pH Ur Specific [place] Urine Protein Urine Glucose (UA) Urine Ketones Urine Blood Urine Nitrite Ur Leukocyte Esterase Urine RBC Urine WBC Ur Squamous Epith Cells Urine Bacteria Hyaline Casts Urine Osmolality Ur Random Sodium Urine Opiates Screen Ur Buprenorphine Scrn Ur Oxycodone Screen Urine Methadone Screen Urine Fentanyl Screen Ur Barbiturates Screen Carbamazepine Ur Phencyclidine Scrn Ur Amphetamines Screen U Benzodiazepines Scrn Urine Cocaine Screen U Marijuana (THC) Screen COVID-19 ([facility]) COVID-19 Clin Com Influenza Type A (AMANDA) Influenza Type B (AMANDA) Influenza A & B Note TB Test (T-Spot) Com TB Test Nil Control TB Test Panel A TB Test Panel B TB Test Positive [facility] 11/02/24 11/02/24 11/02/24 13:18 16:31 19:46 WBC RBC Hgb Hct MCV MCH MCHC RDW Plt Count MPV Immature Gran % (Auto) Neut % (Auto) Lymph % (Auto) [place] % (Auto) Eos % (Auto) Baso % (Auto) Lymph # (Auto) [place] # (Auto) Eos # (Auto) Baso # (Auto) Abs Immat Gran (auto) Absolute Neuts (auto) Absolute Nucleated RBC Nucleated RBC % (auto) Smear Tech's Comments Hold Purple Top VBG pH VBG pCO2 VBG pO2 VBG HCO3 VBG O2 Saturation VBG Base Excess Sodium Potassium Chloride Carbon Dioxide Anion Gap BUN Creatinine Estim Creat Clear Calc Estimated GFR POC Glucose 379 H* 206 H 153 H Random Glucose Estimat Average Glucose Hemoglobin A1c % Osmolality Lactic Acid Calcium Magnesium Iron TIBC % Saturation Unsat Iron Binding Total Bilirubin AST ALT Alkaline Phosphatase Total Protein Albumin Triglycerides Cholesterol LDL Cholesterol, Calc HDL Cholesterol Lipase TSH Free T4 Urine Color Urine Appearance Urine pH Ur Specific [place] Urine Protein Urine Glucose (UA) Urine Ketones Urine Blood Urine Nitrite Ur Leukocyte Esterase Urine RBC Urine WBC Ur Squamous Epith Cells Urine Bacteria Hyaline Casts Urine Osmolality Ur Random Sodium Urine Opiates Screen Ur Buprenorphine Scrn Ur Oxycodone Screen Urine Methadone Screen Urine Fentanyl Screen Ur Barbiturates Screen Carbamazepine Ur Phencyclidine Scrn Ur Amphetamines Screen U Benzodiazepines Scrn Urine Cocaine Screen U Marijuana (THC) Screen COVID-19 ([facility]) COVID-19 Clin Com Influenza Type A (AMANDA) Influenza Type B (AMANDA) Influenza A & B Note TB Test (T-Spot) Com TB Test Nil Control TB Test Panel A TB Test Panel B TB Test Positive [facility] 07/04/1711/02/24 11/02/24 20:13 20:14 20:18 WBC 6.8 RBC 3.44 L Hgb 10.4 L Hct 29.1 L MCV 84.6 MCH 30.2 MCHC 35.7 H RDW 13.2 Plt Count 286 MPV 8.6 L Immature Gran % (Auto) 0.4 Neut % (Auto) 59.4 Lymph % (Auto) 27.6 [place] % (Auto) 11.3 H Eos % (Auto) 1.0 Baso % (Auto) 0.3 Lymph # (Auto) 1.9 [place] # (Auto) 0.8 Eos # (Auto) 0.1 Baso # (Auto) 0.0 Abs Immat Gran (auto) 0.03 Absolute Neuts (auto) 4.1 Absolute Nucleated RBC 0.000 Nucleated RBC % (auto) 0.0 Smear Tech's Comments Hold Purple Top VBG pH 7.44 H VBG pCO2 37 VBG pO2 48 VBG HCO3 26 VBG O2 Saturation 76.0 VBG Base Excess 2.3 Sodium 133 L Potassium 4.7 Chloride 100 Carbon Dioxide 26 Anion Gap 12 BUN 33 H Creatinine 1.86 H Estim Creat Clear Calc 18.0 Estimated GFR 26 POC Glucose Random Glucose 135 H Estimat Average Glucose Hemoglobin A1c % Osmolality Lactic Acid 1.2 Calcium 9.3 Magnesium 2.2 Iron TIBC % Saturation Unsat Iron Binding Total Bilirubin 0.4 AST 16 ALT 25 Alkaline Phosphatase 79 Total Protein 7.1 Albumin 4.4 Triglycerides Cholesterol LDL Cholesterol, Calc HDL Cholesterol Lipase 37 TSH Free T4 Urine Color Urine Appearance Urine pH Ur Specific [place] Urine Protein Urine Glucose (UA) Urine Ketones Urine Blood Urine Nitrite Ur Leukocyte Esterase Urine RBC Urine WBC Ur Squamous Epith Cells Urine Bacteria Hyaline Casts Urine Osmolality Ur Random Sodium Urine Opiates Screen Ur Buprenorphine Scrn Ur Oxycodone Screen Urine Methadone Screen Urine Fentanyl Screen Ur Barbiturates Screen Carbamazepine Ur Phencyclidine Scrn Ur Amphetamines Screen U Benzodiazepines Scrn Urine Cocaine Screen U Marijuana (THC) Screen COVID-19 ([facility]A) COVID-19 Clin Com Influenza Type A (AMANDA) Influenza Type B (AMANDA) Influenza A & B Note TB Test (T-Spot) Com TB Test Nil Control TB Test Panel A TB Test Panel B TB Test Positive Cntrl 11/02/24 11/02/24 11/03/24 20:20 21:38 06:38 WBC RBC Hgb Hct MCV MCH MCHC RDW Plt Count MPV Immature Gran % (Auto) Neut % (Auto) Lymph % (Auto) [place] % (Auto) Eos % (Auto) Baso % (Auto) Lymph # (Auto) [place] # (Auto) Eos # (Auto) Baso # (Auto) Abs Immat Gran (auto) Absolute Neuts (auto) Absolute Nucleated RBC Nucleated RBC % (auto) Smear Tech's Comments Hold Purple Top VBG pH VBG pCO2 VBG pO2 VBG HCO3 VBG O2 Saturation VBG Base Excess Sodium Potassium Chloride Carbon Dioxide Anion Gap BUN Creatinine Estim Creat Clear Calc Estimated GFR POC Glucose 123 H 164 H Random Glucose Estimat Average Glucose Hemoglobin A1c % Osmolality Lactic Acid Calcium Magnesium Iron TIBC % Saturation Unsat Iron Binding Total Bilirubin AST ALT Alkaline Phosphatase Total Protein Albumin Triglycerides Cholesterol LDL Cholesterol, Calc HDL Cholesterol Lipase TSH Free T4 Urine Color Yellow Urine Appearance Clear Urine pH 6.5 Ur Specific [place] 1.015 Urine Protein Negative Urine Glucose (UA) Negative Urine Ketones Negative Urine Blood Negative Urine Nitrite Negative Ur Leukocyte Esterase Large (3+) H Urine RBC 0-2 Urine WBC 11-20 H Ur Squamous Epith Cells 0-2 Urine Bacteria None Seen Hyaline Casts 0-2 Urine Osmolality Ur Random Sodium Urine Opiates Screen Ur Buprenorphine Scrn Ur Oxycodone Screen Urine Methadone Screen Urine Fentanyl Screen Ur Barbiturates Screen Carbamazepine Ur Phencyclidine Scrn Ur Amphetamines Screen U Benzodiazepines Scrn Urine Cocaine Screen U Marijuana (THC) Screen COVID-19 ([facility]) COVID-19 Clin Com Influenza Type A (AMANDA) Influenza Type B (AMANDA) Influenza A & B Note TB Test (T-Spot) Com TB Test Nil Control TB Test Panel A TB Test Panel B TB Test Positive Cntr 11/03/24 11/03/24 11/04/24 11:23 16:03 06:47 WBC RBC Hgb Hct MCV MCH MCHC RDW Plt Count MPV Immature Gran % (Auto) Neut % (Auto) Lymph % (Auto) [place] % (Auto) Eos % (Auto) Baso % (Auto) Lymph # (Auto) [place] # (Auto) Eos # (Auto) Baso # (Auto) Abs Immat Gran (auto) Absolute Neuts (auto) Absolute Nucleated RBC Nucleated RBC % (auto) Smear Tech's Comments Hold Purple Top VBG pH VBG pCO2 VBG pO2 VBG HCO3 VBG O2 Saturation VBG Base Excess Sodium Potassium Chloride Carbon Dioxide Anion Gap BUN Creatinine Estim Creat Clear Calc Estimated GFR POC Glucose 238 H 185 H 148 H Random Glucose Estimat Average Glucose Hemoglobin A1c % Osmolality Lactic Acid Calcium Magnesium Iron TIBC % Saturation Unsat Iron Binding Total Bilirubin AST ALT Alkaline Phosphatase Total Protein Albumin Triglycerides Cholesterol LDL Cholesterol, Calc HDL Cholesterol Lipase TSH Free T4 Urine Color Urine Appearance Urine pH Ur Specific [place] Urine Protein Urine Glucose (UA) Urine Ketones Urine Blood Urine Nitrite Ur Leukocyte Esterase Urine RBC Urine WBC Ur Squamous Epith Cells Urine Bacteria Hyaline Casts Urine Osmolality Ur Random Sodium Urine Opiates Screen Ur Buprenorphine Scrn Ur Oxycodone Screen Urine Methadone Screen Urine Fentanyl Screen Ur Barbiturates Screen Carbamazepine Ur Phencyclidine Scrn Ur Amphetamines Screen U Benzodiazepines Scrn Urine Cocaine Screen U Marijuana (THC) Screen COVID-19 ([facility]ES[facility]) COVID-19 Clin Com Influenza Type A (AMANDA) Influenza Type B (AMANDA) Influenza A & B Note TB Test (T-Spot) Com TB Test Nil Control TB Test Panel A TB Test Panel B TB Test Positive [facility] 11/04/24 11/04/24 11/04/24 09:52 11:20 16:30 WBC RBC Hgb Hct MCV MCH MCHC RDW Plt Count MPV Immature Gran % (Auto) Neut % (Auto) Lymph % (Auto) [place] % (Auto) Eos % (Auto) Baso % (Auto) Lymph # (Auto) [place] # (Auto) Eos # (Auto) Baso # (Auto) Abs Immat Gran (auto) Absolute Neuts (auto) Absolute Nucleated RBC Nucleated RBC % (auto) Smear Tech's Comments Hold Purple Top VBG pH VBG pCO2 VBG pO2 VBG HCO3 VBG O2 Saturation VBG Base Excess Sodium 134 L Potassium 5.5 H Chloride 102 Carbon Dioxide 22 Anion Gap 16 BUN 35 H Creatinine 1.15 Estim Creat Clear Calc 29.2 Estimated GFR 46 POC Glucose 178 H 139 H Random Glucose 232 H Estimat Average Glucose Hemoglobin A1c % Osmolality Lactic Acid Calcium 9.1 Magnesium Iron TIBC % Saturation Unsat Iron Binding Total Bilirubin 0.3 AST 25 ALT 25 Alkaline Phosphatase 67 Total Protein 6.9 Albumin 4.2 Triglycerides Cholesterol LDL Cholesterol, Calc HDL Cholesterol Lipase TSH Free T4 Urine Color Urine Appearance Urine pH Ur Specific [place] Urine Protein Urine Glucose (UA) Urine Ketones Urine Blood Urine Nitrite Ur Leukocyte Esterase Urine RBC Urine WBC Ur Squamous Epith Cells Urine Bacteria Hyaline Casts Urine Osmolality Ur Random Sodium Urine Opiates Screen Ur Buprenorphine Scrn Ur Oxycodone Screen Urine Methadone Screen Urine Fentanyl Screen Ur Barbiturates Screen Carbamazepine Ur Phencyclidine Scrn Ur Amphetamines Screen U Benzodiazepines Scrn Urine Cocaine Screen U Marijuana (THC) Screen COVID-19 ([facility]ES[facility]) COVID-19 Clin Com Influenza Type A (AMANDA) Influenza Type B (AMANDA) Influenza A & B Note TB Test (T-Spot) Com TB Test Nil Control TB Test Panel A TB Test Panel B TB Test Positive [facility] 11/04/24 11/04/24 11/05/24 16:53 21:12 06:28 WBC RBC Hgb Hct MCV MCH MCHC RDW Plt Count MPV Immature Gran % (Auto) Neut % (Auto) Lymph % (Auto) [place] % (Auto) Eos % (Auto) Baso % (Auto) Lymph # (Auto) [place] # (Auto) Eos # (Auto) Baso # (Auto) Abs Immat Gran (auto) Absolute Neuts (auto) Absolute Nucleated RBC Nucleated RBC % (auto) Smear Tech's Comments Hold Purple Top VBG pH VBG pCO2 VBG pO2 VBG HCO3 VBG O2 Saturation VBG Base Excess Sodium Potassium Chloride Carbon Dioxide Anion Gap BUN Creatinine Estim Creat Clear Calc Estimated GFR POC Glucose 192 H 199 H 155 H Random Glucose Estimat Average Glucose Hemoglobin A1c % Osmolality Lactic Acid Calcium Magnesium Iron TIBC % Saturation Unsat Iron Binding Total Bilirubin AST ALT Alkaline Phosphatase Total Protein Albumin Triglycerides Cholesterol LDL Cholesterol, Calc HDL Cholesterol Lipase TSH Free T4 Urine Color Urine Appearance Urine pH Ur Specific [place] Urine Protein Urine Glucose (UA) Urine Ketones Urine Blood Urine Nitrite Ur Leukocyte Esterase Urine RBC Urine WBC Ur Squamous Epith Cells Urine Bacteria Hyaline Casts Urine Osmolality Ur Random Sodium Urine Opiates Screen Ur Buprenorphine Scrn Ur Oxycodone Screen Urine Methadone Screen Urine Fentanyl Screen Ur Barbiturates Screen Carbamazepine Ur Phencyclidine Scrn Ur Amphetamines Screen U Benzodiazepines Scrn Urine Cocaine Screen U Marijuana (THC) Screen COVID-19 ([facility]ESA) COVID-19 Clin Com Influenza Type A (AMANDA) Influenza Type B (AMANDA) Influenza A & B Note TB Test (T-Spot) Com TB Test Nil Control TB Test Panel A TB Test Panel B TB Test Positive [facility] 11/05/24 11/05/24 11/05/24 11:14 16:10 20:54 WBC RBC Hgb Hct MCV MCH MCHC RDW Plt Count MPV Immature Gran % (Auto) Neut % (Auto) Lymph % (Auto) [place] % (Auto) Eos % (Auto) Baso % (Auto) Lymph # (Auto) [place] # (Auto) Eos # (Auto) Baso # (Auto) Abs Immat Gran (auto) Absolute Neuts (auto) Absolute Nucleated RBC Nucleated RBC % (auto) Smear Tech's Comments Hold Purple Top VBG pH VBG pCO2 VBG pO2 VBG HCO3 VBG O2 Saturation VBG Base Excess Sodium Potassium Chloride Carbon Dioxide Anion Gap BUN Creatinine Estim Creat Clear Calc Estimated GFR POC Glucose 145 H 145 H 205 H Random Glucose Estimat Average Glucose Hemoglobin A1c % Osmolality Lactic Acid Calcium Magnesium Iron TIBC % Saturation Unsat Iron Binding Total Bilirubin AST ALT Alkaline Phosphatase Total Protein Albumin Triglycerides Cholesterol LDL Cholesterol, Calc HDL Cholesterol Lipase TSH Free T4 Urine Color Urine Appearance Urine pH Ur Specific [place] Urine Protein Urine Glucose (UA) Urine Ketones Urine Blood Urine Nitrite Ur Leukocyte Esterase Urine RBC Urine WBC Ur Squamous Epith Cells Urine Bacteria Hyaline Casts Urine Osmolality Ur Random Sodium Urine Opiates Screen Ur Buprenorphine Scrn Ur Oxycodone Screen Urine Methadone Screen Urine Fentanyl Screen Ur Barbiturates Screen Carbamazepine Ur Phencyclidine Scrn Ur Amphetamines Screen U Benzodiazepines Scrn Urine Cocaine Screen U Marijuana (THC) Screen COVID-19 (TRESA) COVID-19 Clin Com Influenza Type A (AMANDA) Influenza Type B (AMANDA) Influenza A & B Note TB Test (T-Spot) Com TB Test Nil Control TB Test Panel A TB Test Panel B TB Test Positive Cnt 11/06/24 11/06/24 11/06/24 06:29 11:28 16:19 WBC RBC Hgb Hct MCV MCH MCHC RDW Plt Count MPV Immature Gran % (Auto) Neut % (Auto) Lymph % (Auto) [place] % (Auto) Eos % (Auto) Baso % (Auto) Lymph # (Auto) [place] # (Auto) Eos # (Auto) Baso # (Auto) Abs Immat Gran (auto) Absolute Neuts (auto) Absolute Nucleated RBC Nucleated RBC % (auto) Smear Tech's Comments Hold Purple Top VBG pH VBG pCO2 VBG pO2 VBG HCO3 VBG O2 Saturation VBG Base Excess Sodium Potassium Chloride Carbon Dioxide Anion Gap BUN Creatinine Estim Creat Clear Calc Estimated GFR POC Glucose 186 H 166 H 168 H Random Glucose Estimat Average Glucose Hemoglobin A1c % Osmolality Lactic Acid Calcium Magnesium Iron TIBC % Saturation Unsat Iron Binding Total Bilirubin AST ALT Alkaline Phosphatase Total Protein Albumin Triglycerides Cholesterol LDL Cholesterol, Calc HDL Cholesterol Lipase TSH Free T4 Urine Color Urine Appearance Urine pH Ur Specific [place] Urine Protein Urine Glucose (UA) Urine Ketones Urine Blood Urine Nitrite Ur Leukocyte Esterase Urine RBC Urine WBC Ur Squamous Epith Cells Urine Bacteria Hyaline Casts Urine Osmolality Ur Random Sodium Urine Opiates Screen Ur Buprenorphine Scrn Ur Oxycodone Screen Urine Methadone Screen Urine Fentanyl Screen Ur Barbiturates Screen Carbamazepine Ur Phencyclidine Scrn Ur Amphetamines Screen U Benzodiazepines Scrn Urine Cocaine Screen U Marijuana (THC) Screen COVID-19 (TRESA) COVID-19 Clin Com Influenza Type A (AMANDA) Influenza Type B (AMANDA) Influenza A & B Note TB Test (T-Spot) Com TB Test Nil Control TB Test Panel A TB Test Panel B TB Test Positive Cntrl 11/06/24 11/07/24 11/07/24 21:20 06:20 10:45 WBC RBC Hgb Hct MCV MCH MCHC RDW Plt Count MPV Immature Gran % (Auto) Neut % (Auto) Lymph % (Auto) [place] % (Auto) Eos % (Auto) Baso % (Auto) Lymph # (Auto) [place] # (Auto) Eos # (Auto) Baso # (Auto) Abs Immat Gran (auto) Absolute Neuts (auto) Absolute Nucleated RBC Nucleated RBC % (auto) Smear Tech's Comments Hold Purple Top VBG pH VBG pCO2 VBG pO2 VBG HCO3 VBG O2 Saturation VBG Base Excess Sodium Potassium Chloride Carbon Dioxide Anion Gap BUN Creatinine Estim Creat Clear Calc Estimated GFR POC Glucose 82 125 H 159 H Random Glucose Estimat Average Glucose Hemoglobin A1c % Osmolality Lactic Acid Calcium Magnesium Iron TIBC % Saturation Unsat Iron Binding Total Bilirubin AST ALT Alkaline Phosphatase Total Protein Albumin Triglycerides Cholesterol LDL Cholesterol, Calc HDL Cholesterol Lipase TSH Free T4 Urine Color Urine Appearance Urine pH Ur Specific [place] Urine Protein Urine Glucose (UA) Urine Ketones Urine Blood Urine Nitrite Ur Leukocyte Esterase Urine RBC Urine WBC Ur Squamous Epith Cells Urine Bacteria Hyaline Casts Urine Osmolality Ur Random Sodium Urine Opiates Screen Ur Buprenorphine Scrn Ur Oxycodone Screen Urine Methadone Screen Urine Fentanyl Screen Ur Barbiturates Screen Carbamazepine Ur Phencyclidine Scrn Ur Amphetamines Screen U Benzodiazepines Scrn Urine Cocaine Screen U Marijuana (THC) Screen COVID-19 (TRESA) COVID-19 Clin Com Influenza Type A (AMANDA) Influenza Type B (AMANDA) Influenza A & B Note TB Test (T-Spot) Com TB Test Nil Control TB Test Panel A TB Test Panel B TB Test Positive [facility] 11/07/24 11/07/24 11/08/24 16:17 20:21 06:25 WBC RBC Hgb Hct MCV MCH MCHC RDW Plt Count MPV Immature Gran % (Auto) Neut % (Auto) Lymph % (Auto) [place] % (Auto) Eos % (Auto) Baso % (Auto) Lymph # (Auto) [place] # (Auto) Eos # (Auto) Baso # (Auto) Abs Immat Gran (auto) Absolute Neuts (auto) Absolute Nucleated RBC Nucleated RBC % (auto) Smear Tech's Comments Hold Purple Top VBG pH VBG pCO2 VBG pO2 VBG HCO3 VBG O2 Saturation VBG Base Excess Sodium Potassium Chloride Carbon Dioxide Anion Gap BUN Creatinine Estim Creat Clear Calc Estimated GFR POC Glucose 115 142 H 147 H Random Glucose Estimat Average Glucose Hemoglobin A1c % Osmolality Lactic Acid Calcium Magnesium Iron TIBC % Saturation Unsat Iron Binding Total Bilirubin AST ALT Alkaline Phosphatase Total Protein Albumin Triglycerides Cholesterol LDL Cholesterol, Calc HDL Cholesterol Lipase TSH Free T4 Urine Color Urine Appearance Urine pH Ur Specific [place] Urine Protein Urine Glucose (UA) Urine Ketones Urine Blood Urine Nitrite Ur Leukocyte Esterase Urine RBC Urine WBC Ur Squamous Epith Cells Urine Bacteria Hyaline Casts Urine Osmolality Ur Random Sodium Urine Opiates Screen Ur Buprenorphine Scrn Ur Oxycodone Screen Urine Methadone Screen Urine Fentanyl Screen Ur Barbiturates Screen Carbamazepine Ur Phencyclidine Scrn Ur Amphetamines Screen U Benzodiazepines Scrn Urine Cocaine Screen U Marijuana (THC) Screen COVID-19 (TRESA) COVID-19 Clin Com Influenza Type A (AMANDA) Influenza Type B (AMANDA) Influenza A & B Note TB Test (T-Spot) Com TB Test Nil Control TB Test Panel A TB Test Panel B TB Test Positive [facility] 11/08/24 11/08/24 11/08/24 11:07 16:51 21:23 WBC RBC Hgb Hct MCV MCH MCHC RDW Plt Count MPV Immature Gran % (Auto) Neut % (Auto) Lymph % (Auto) [place] % (Auto) Eos % (Auto) Baso % (Auto) Lymph # (Auto) [place] # (Auto) Eos # (Auto) Baso # (Auto) Abs Immat Gran (auto) Absolute Neuts (auto) Absolute Nucleated RBC Nucleated RBC % (auto) Smear Tech's Comments Hold Purple Top VBG pH VBG pCO2 VBG pO2 VBG HCO3 VBG O2 Saturation VBG Base Excess Sodium Potassium Chloride Carbon Dioxide Anion Gap BUN Creatinine Estim Creat Clear Calc Estimated GFR POC Glucose 245 H 115 255 H Random Glucose Estimat Average Glucose Hemoglobin A1c % Osmolality Lactic Acid Calcium Magnesium Iron TIBC % Saturation Unsat Iron Binding Total Bilirubin AST ALT Alkaline Phosphatase Total Protein Albumin Triglycerides Cholesterol LDL Cholesterol, Calc HDL Cholesterol Lipase TSH Free T4 Urine Color Urine Appearance Urine pH Ur Specific [place] Urine Protein Urine Glucose (UA) Urine Ketones Urine Blood Urine Nitrite Ur Leukocyte Esterase Urine RBC Urine WBC Ur Squamous Epith Cells Urine Bacteria Hyaline Casts Urine Osmolality Ur Random Sodium Urine Opiates Screen Ur Buprenorphine Scrn Ur Oxycodone Screen Urine Methadone Screen Urine Fentanyl Screen Ur Barbiturates Screen Carbamazepine Ur Phencyclidine Scrn Ur Amphetamines Screen U Benzodiazepines Scrn Urine Cocaine Screen U Marijuana (THC) Screen COVID-19 (TRESA) COVID-19 Clin Com Influenza Type A (AMANDA) Influenza Type B (AMANDA) Influenza A & B Note TB Test (T-Spot) Com TB Test Nil Control TB Test Panel A TB Test Panel B TB Test Positive Cntrl 11/09/24 11/09/24 11/09/24 06:39 11:02 16:04 WBC RBC Hgb Hct MCV MCH MCHC RDW Plt Count MPV Immature Gran % (Auto) Neut % (Auto) Lymph % (Auto) [place] % (Auto) Eos % (Auto) Baso % (Auto) Lymph # (Auto) [place] # (Auto) Eos # (Auto) Baso # (Auto) Abs Immat Gran (auto) Absolute Neuts (auto) Absolute Nucleated RBC Nucleated RBC % (auto) Smear Tech's Comments Hold Purple Top VBG pH VBG pCO2 VBG pO2 VBG HCO3 VBG O2 Saturation VBG Base Excess Sodium Potassium Chloride Carbon Dioxide Anion Gap BUN Creatinine Estim Creat Clear Calc Estimated GFR POC Glucose 137 H 302 H 77 Random Glucose Estimat Average Glucose Hemoglobin A1c % Osmolality Lactic Acid Calcium Magnesium Iron TIBC % Saturation Unsat Iron Binding Total Bilirubin AST ALT Alkaline Phosphatase Total Protein Albumin Triglycerides Cholesterol LDL Cholesterol, Calc HDL Cholesterol Lipase TSH Free T4 Urine Color Urine Appearance Urine pH Ur Specific [place] Urine Protein Urine Glucose (UA) Urine Ketones Urine Blood Urine Nitrite Ur Leukocyte Esterase Urine RBC Urine WBC Ur Squamous Epith Cells Urine Bacteria Hyaline Casts Urine Osmolality Ur Random Sodium Urine Opiates Screen Ur Buprenorphine Scrn Ur Oxycodone Screen Urine Methadone Screen Urine Fentanyl Screen Ur Barbiturates Screen Carbamazepine Ur Phencyclidine Scrn Ur Amphetamines Screen U Benzodiazepines Scrn Urine Cocaine Screen U Marijuana (THC) Screen COVID-19 (TRESA) COVID-19 Clin Com Influenza Type A (AMANDA) Influenza Type B (AMANDA) Influenza A & B Note TB Test (T-Spot) Com TB Test Nil Control TB Test Panel A TB Test Panel B TB Test Positive Cntr 11/09/24 11/10/24 11/10/24 20:29 06:37 11:29 WBC RBC Hgb Hct MCV MCH MCHC RDW Plt Count MPV Immature Gran % (Auto) Neut % (Auto) Lymph % (Auto) [place] % (Auto) Eos % (Auto) Baso % (Auto) Lymph # (Auto) [place] # (Auto) Eos # (Auto) Baso # (Auto) Abs Immat Gran (auto) Absolute Neuts (auto) Absolute Nucleated RBC Nucleated RBC % (auto) Smear Tech's Comments Hold Purple Top VBG pH VBG pCO2 VBG pO2 VBG HCO3 VBG O2 Saturation VBG Base Excess Sodium Potassium Chloride Carbon Dioxide Anion Gap BUN Creatinine Estim Creat Clear Calc Estimated GFR POC Glucose 242 H 187 H 230 H Random Glucose Estimat Average Glucose Hemoglobin A1c % Osmolality Lactic Acid Calcium Magnesium Iron TIBC % Saturation Unsat Iron Binding Total Bilirubin AST ALT Alkaline Phosphatase Total Protein Albumin Triglycerides Cholesterol LDL Cholesterol, Calc HDL Cholesterol Lipase TSH Free T4 Urine Color Urine Appearance Urine pH Ur Specific [place] Urine Protein Urine Glucose (UA) Urine Ketones Urine Blood Urine Nitrite Ur Leukocyte Esterase Urine RBC Urine WBC Ur Squamous Epith Cells Urine Bacteria Hyaline Casts Urine Osmolality Ur Random Sodium Urine Opiates Screen Ur Buprenorphine Scrn Ur Oxycodone Screen Urine Methadone Screen Urine Fentanyl Screen Ur Barbiturates Screen Carbamazepine Ur Phencyclidine Scrn Ur Amphetamines Screen U Benzodiazepines Scrn Urine Cocaine Screen U Marijuana (THC) Screen COVID-19 (TRESA) COVID-19 Clin Com Influenza Type A (AMANDA) Influenza Type B (AMANDA) Influenza A & B Note TB Test (T-Spot) Com TB Test Nil Control TB Test Panel A TB Test Panel B TB Test Positive Cnt 11/10/24 11/10/24 11/11/24 16:24 20:05 06:32 WBC RBC Hgb Hct MCV MCH MCHC RDW Plt Count MPV Immature Gran % (Auto) Neut % (Auto) Lymph % (Auto) [place] % (Auto) Eos % (Auto) Baso % (Auto) Lymph # (Auto) [place] # (Auto) Eos # (Auto) Baso # (Auto) Abs Immat Gran (auto) Absolute Neuts (auto) Absolute Nucleated RBC Nucleated RBC % (auto) Smear Tech's Comments Hold Purple Top VBG pH VBG pCO2 VBG pO2 VBG HCO3 VBG O2 Saturation VBG Base Excess Sodium Potassium Chloride Carbon Dioxide Anion Gap BUN Creatinine Estim Creat Clear Calc Estimated GFR POC Glucose 105 126 H 159 H Random Glucose Estimat Average Glucose Hemoglobin A1c % Osmolality Lactic Acid Calcium Magnesium Iron TIBC % Saturation Unsat Iron Binding Total Bilirubin AST ALT Alkaline Phosphatase Total Protein Albumin Triglycerides Cholesterol LDL Cholesterol, Calc HDL Cholesterol Lipase TSH Free T4 Urine Color Urine Appearance Urine pH Ur Specific [place] Urine Protein Urine Glucose (UA) Urine Ketones Urine Blood Urine Nitrite Ur Leukocyte Esterase Urine RBC Urine WBC Ur Squamous Epith Cells Urine Bacteria Hyaline Casts Urine Osmolality Ur Random Sodium Urine Opiates Screen Ur Buprenorphine Scrn Ur Oxycodone Screen Urine Methadone Screen Urine Fentanyl Screen Ur Barbiturates Screen Carbamazepine Ur Phencyclidine Scrn Ur Amphetamines Screen U Benzodiazepines Scrn Urine Cocaine Screen U Marijuana (THC) Screen COVID-19 (TRESA) COVID-19 Clin Com Influenza Type A (AMANDA) Influenza Type B (AMANDA) Influenza A & B Note TB Test (T-Spot) Com TB Test Nil Control TB Test Panel A TB Test Panel B TB Test Positive [facility] 11/11/24 11/11/24 11/11/24 11:17 16:17 20:14 WBC RBC Hgb Hct MCV MCH MCHC RDW Plt Count MPV Immature Gran % (Auto) Neut % (Auto) Lymph % (Auto) [place] % (Auto) Eos % (Auto) Baso % (Auto) Lymph # (Auto) [place] # (Auto) Eos # (Auto) Baso # (Auto) Abs Immat Gran (auto) Absolute Neuts (auto) Absolute Nucleated RBC Nucleated RBC % (auto) Smear Tech's Comments Hold Purple Top VBG pH VBG pCO2 VBG pO2 VBG HCO3 VBG O2 Saturation VBG Base Excess Sodium Potassium Chloride Carbon Dioxide Anion Gap BUN Creatinine Estim Creat Clear Calc Estimated GFR POC Glucose 140 H 130 H 194 H Random Glucose Estimat Average Glucose Hemoglobin A1c % Osmolality Lactic Acid Calcium Magnesium Iron TIBC % Saturation Unsat Iron Binding Total Bilirubin AST ALT Alkaline Phosphatase Total Protein Albumin Triglycerides Cholesterol LDL Cholesterol, Calc HDL Cholesterol Lipase TSH Free T4 Urine Color Urine Appearance Urine pH Ur Specific [place] Urine Protein Urine Glucose (UA) Urine Ketones Urine Blood Urine Nitrite Ur Leukocyte Esterase Urine RBC Urine WBC Ur Squamous Epith Cells Urine Bacteria Hyaline Casts Urine Osmolality Ur Random Sodium Urine Opiates Screen Ur Buprenorphine Scrn Ur Oxycodone Screen Urine Methadone Screen Urine Fentanyl Screen Ur Barbiturates Screen Carbamazepine Ur Phencyclidine Scrn Ur Amphetamines Screen U Benzodiazepines Scrn Urine Cocaine Screen U Marijuana (THC) Screen COVID-19 (TRESA) COVID-19 Clin Com Influenza Type A (AMANDA) Influenza Type B (AMANDA) Influenza A & B Note TB Test (T-Spot) Com TB Test Nil Control TB Test Panel A TB Test Panel B TB Test Positive Cntr 11/12/24 11/12/24 11/12/24 06:32 11:19 16:20 WBC RBC Hgb Hct MCV MCH MCHC RDW Plt Count MPV Immature Gran % (Auto) Neut % (Auto) Lymph % (Auto) [place] % (Auto) Eos % (Auto) Baso % (Auto) Lymph # (Auto) [place] # (Auto) Eos # (Auto) Baso # (Auto) Abs Immat Gran (auto) Absolute Neuts (auto) Absolute Nucleated RBC Nucleated RBC % (auto) Smear Tech's Comments Hold Purple Top VBG pH VBG pCO2 VBG pO2 VBG HCO3 VBG O2 Saturation VBG Base Excess Sodium Potassium Chloride Carbon Dioxide Anion Gap BUN Creatinine Estim Creat Clear Calc Estimated GFR POC Glucose 171 H 121 H 170 H Random Glucose Estimat Average Glucose Hemoglobin A1c % Osmolality Lactic Acid Calcium Magnesium Iron TIBC % Saturation Unsat Iron Binding Total Bilirubin AST ALT Alkaline Phosphatase Total Protein Albumin Triglycerides Cholesterol LDL Cholesterol, Calc HDL Cholesterol Lipase TSH Free T4 Urine Color Urine Appearance Urine pH Ur Specific [place] Urine Protein Urine Glucose (UA) Urine Ketones Urine Blood Urine Nitrite Ur Leukocyte Esterase Urine RBC Urine WBC Ur Squamous Epith Cells Urine Bacteria Hyaline Casts Urine Osmolality Ur Random Sodium Urine Opiates Screen Ur Buprenorphine Scrn Ur Oxycodone Screen Urine Methadone Screen Urine Fentanyl Screen Ur Barbiturates Screen Carbamazepine Ur Phencyclidine Scrn Ur Amphetamines Screen U Benzodiazepines Scrn Urine Cocaine Screen U Marijuana (THC) Screen COVID-19 (TRESA) COVID-19 Clin Com Influenza Type A (AMANDA) Influenza Type B (AMANDA) Influenza A & B Note TB Test (T-Spot) Com TB Test Nil Control TB Test Panel A TB Test Panel B TB Test Positive [facility] 11/13/24 11/13/24 11/13/24 06:41 09:09 11:20 WBC RBC Hgb Hct MCV MCH MCHC RDW Plt Count MPV Immature Gran % (Auto) Neut % (Auto) Lymph % (Auto) [place] % (Auto) Eos % (Auto) Baso % (Auto) Lymph # (Auto) [place] # (Auto) Eos # (Auto) Baso # (Auto) Abs Immat Gran (auto) Absolute Neuts (auto) Absolute Nucleated RBC Nucleated RBC % (auto) Smear Tech's Comments Hold Purple Top VBG pH VBG pCO2 VBG pO2 VBG HCO3 VBG O2 Saturation VBG Base Excess Sodium Potassium Chloride Carbon Dioxide Anion Gap BUN Creatinine Estim Creat Clear Calc Estimated GFR POC Glucose 173 H 181 H Random Glucose Estimat Average Glucose Hemoglobin A1c % Osmolality Lactic Acid Calcium Magnesium Iron TIBC % Saturation Unsat Iron Binding Total Bilirubin AST ALT Alkaline Phosphatase Total Protein Albumin Triglycerides Cholesterol LDL Cholesterol, Calc HDL Cholesterol Lipase TSH Free T4 Urine Color Urine Appearance Urine pH Ur Specific [place] Urine Protein Urine Glucose (UA) Urine Ketones Urine Blood Urine Nitrite Ur Leukocyte Esterase Urine RBC Urine WBC Ur Squamous Epith Cells Urine Bacteria Hyaline Casts Urine Osmolality Ur Random Sodium Urine Opiates Screen Ur Buprenorphine Scrn Ur Oxycodone Screen Urine Methadone Screen Urine Fentanyl Screen Ur Barbiturates Screen Carbamazepine 9.1 Ur Phencyclidine Scrn Ur Amphetamines Screen U Benzodiazepines Scrn Urine Cocaine Screen U Marijuana (THC) Screen COVID-19 (TRESA) COVID-19 Clin Com Influenza Type A (AMANDA) Influenza Type B (AMANDA) Influenza A & B Note TB Test (T-Spot) Com TB Test Nil Control TB Test Panel A TB Test Panel B TB Test Positive [facility] 11/13/24 11/13/24 11/13/24 11:27 11:30 15:40 WBC RBC Hgb Hct MCV MCH MCHC RDW Plt Count MPV Immature Gran % (Auto) Neut % (Auto) Lymph % (Auto) [place] % (Auto) Eos % (Auto) Baso % (Auto) Lymph # (Auto) [place] # (Auto) Eos # (Auto) Baso # (Auto) Abs Immat Gran (auto) Absolute Neuts (auto) Absolute Nucleated RBC Nucleated RBC % (auto) Smear Tech's Comments Hold Purple Top SEE NOTE VBG pH VBG pCO2 VBG pO2 VBG HCO3 VBG O2 Saturation VBG Base Excess Sodium 127 L Potassium 4.8 Chloride 95 L Carbon Dioxide 24 Anion Gap 13 BUN 21 H Creatinine 0.85 Estim Creat Clear Calc 39.5 Estimated GFR > 60 POC Glucose Random Glucose 191 H Estimat Average Glucose Hemoglobin A1c % Osmolality 271 L Lactic Acid Calcium 9.4 Magnesium Iron TIBC % Saturation Unsat Iron Binding Total Bilirubin 0.5 AST 16 ALT 21 Alkaline Phosphatase 68 Total Protein 7.2 Albumin 4.6 Triglycerides Cholesterol LDL Cholesterol, Calc HDL Cholesterol Lipase TSH Free T4 Urine Color Urine Appearance Urine pH Ur Specific [place] Urine Protein Urine Glucose (UA) Urine Ketones Urine Blood Urine Nitrite Ur Leukocyte Esterase Urine RBC Urine WBC Ur Squamous Epith Cells Urine Bacteria Hyaline Casts Urine Osmolality Ur Random Sodium Urine Opiates Screen Ur Buprenorphine Scrn Ur Oxycodone Screen Urine Methadone Screen Urine Fentanyl Screen Ur Barbiturates Screen Carbamazepine Ur Phencyclidine Scrn Ur Amphetamines Screen U Benzodiazepines Scrn Urine Cocaine Screen U Marijuana (THC) Screen COVID-19 (TRESA) COVID-19 Clin Com Influenza Type A (AMANDA) Influenza Type B (AMANDA) Influenza A & B Note TB Test (T-Spot) Com TB Test Nil Control TB Test Panel A TB Test Panel B TB Test Positive Cntrl 11/13/24 11/13/24 11/13/24 16:06 17:02 20:40 WBC RBC Hgb Hct MCV MCH MCHC RDW Plt Count MPV Immature Gran % (Auto) Neut % (Auto) Lymph % (Auto) [place] % (Auto) Eos % (Auto) Baso % (Auto) Lymph # (Auto) [place] # (Auto) Eos # (Auto) Baso # (Auto) Abs Immat Gran (auto) Absolute Neuts (auto) Absolute Nucleated RBC Nucleated RBC % (auto) Smear Tech's Comments Hold Purple Top VBG pH VBG pCO2 VBG pO2 VBG HCO3 VBG O2 Saturation VBG Base Excess Sodium Potassium Chloride Carbon Dioxide Anion Gap BUN Creatinine Estim Creat Clear Calc Estimated GFR POC Glucose 177 H 179 H Random Glucose Estimat Average Glucose Hemoglobin A1c % Osmolality Lactic Acid Calcium Magnesium Iron TIBC % Saturation Unsat Iron Binding Total Bilirubin AST ALT Alkaline Phosphatase Total Protein Albumin Triglycerides Cholesterol LDL Cholesterol, Calc HDL Cholesterol Lipase TSH Free T4 Urine Color Urine Appearance Urine pH Ur Specific [place] Urine Protein Urine Glucose (UA) Urine Ketones Urine Blood Urine Nitrite Ur Leukocyte Esterase Urine RBC Urine WBC Ur Squamous Epith Cells Urine Bacteria Hyaline Casts Urine Osmolality 485 Ur Random Sodium 41.0 Urine Opiates Screen Ur Buprenorphine Scrn Ur Oxycodone Screen Urine Methadone Screen Urine Fentanyl Screen Ur Barbiturates Screen Carbamazepine Ur Phencyclidine Scrn Ur Amphetamines Screen U Benzodiazepines Scrn Urine Cocaine Screen U Marijuana (THC) Screen COVID-19 (TRESA) COVID-19 Clin Com Influenza Type A (AMANDA) Influenza Type B (AMANDA) Influenza A & B Note TB Test (T-Spot) Com TB Test Nil Control TB Test Panel A TB Test Panel B TB Test Positive Cntrl 11/14/24 11/14/24 11/14/24 06:25 07:19 11:34 WBC RBC Hgb Hct MCV MCH MCHC RDW Plt Count MPV Immature Gran % (Auto) Neut % (Auto) Lymph % (Auto) [place] % (Auto) Eos % (Auto) Baso % (Auto) Lymph # (Auto) [place] # (Auto) Eos # (Auto) Baso # (Auto) Abs Immat Gran (auto) Absolute Neuts (auto) Absolute Nucleated RBC Nucleated RBC % (auto) Smear Tech's Comments Hold Purple Top VBG pH VBG pCO2 VBG pO2 VBG HCO3 VBG O2 Saturation VBG Base Excess Sodium 132 L Potassium 5.0 Chloride 97 Carbon Dioxide 27 Anion Gap 13 BUN 26 H Creatinine 0.93 Estim Creat Clear Calc 36.1 Estimated GFR 59 POC Glucose 170 H 132 H Random Glucose 193 H Estimat Average Glucose Hemoglobin A1c % Osmolality Lactic Acid Calcium 9.5 Magnesium Iron TIBC % Saturation Unsat Iron Binding Total Bilirubin AST ALT Alkaline Phosphatase Total Protein Albumin Triglycerides Cholesterol LDL Cholesterol, Calc HDL Cholesterol Lipase TSH Free T4 Urine Color Urine Appearance Urine pH Ur Specific [place] Urine Protein Urine Glucose (UA) Urine Ketones Urine Blood Urine Nitrite Ur Leukocyte Esterase Urine RBC Urine WBC Ur Squamous Epith Cells Urine Bacteria Hyaline Casts Urine Osmolality Ur Random Sodium Urine Opiates Screen Ur Buprenorphine Scrn Ur Oxycodone Screen Urine Methadone Screen Urine Fentanyl Screen Ur Barbiturates Screen Carbamazepine Ur Phencyclidine Scrn Ur Amphetamines Screen U Benzodiazepines Scrn Urine Cocaine Screen U Marijuana (THC) Screen COVID-19 (TRESA) COVID-19 Clin Com Influenza Type A (AMANDA) Influenza Type B (AMANDA) Influenza A & B Note TB Test (T-Spot) Com TB Test Nil Control TB Test Panel A TB Test Panel B TB Test Positive Cntrl 11/14/24 11/14/24 11/15/24 15:59 20:36 06:24 WBC RBC Hgb Hct MCV MCH MCHC RDW Plt Count MPV Immature Gran % (Auto) Neut % (Auto) Lymph % (Auto) [place] % (Auto) Eos % (Auto) Baso % (Auto) Lymph # (Auto) [place] # (Auto) Eos # (Auto) Baso # (Auto) Abs Immat Gran (auto) Absolute Neuts (auto) Absolute Nucleated RBC Nucleated RBC % (auto) Smear Tech's Comments Hold Purple Top VBG pH VBG pCO2 VBG pO2 VBG HCO3 VBG O2 Saturation VBG Base Excess Sodium Potassium Chloride Carbon Dioxide Anion Gap BUN Creatinine Estim Creat Clear Calc Estimated GFR POC Glucose 199 H 98 199 H Random Glucose Estimat Average Glucose Hemoglobin A1c % Osmolality Lactic Acid Calcium Magnesium Iron TIBC % Saturation Unsat Iron Binding Total Bilirubin AST ALT Alkaline Phosphatase Total Protein Albumin Triglycerides Cholesterol LDL Cholesterol, Calc HDL Cholesterol Lipase TSH Free T4 Urine Color Urine Appearance Urine pH Ur Specific [place] Urine Protein Urine Glucose (UA) Urine Ketones Urine Blood Urine Nitrite Ur Leukocyte Esterase Urine RBC Urine WBC Ur Squamous Epith Cells Urine Bacteria Hyaline Casts Urine Osmolality Ur Random Sodium Urine Opiates Screen Ur Buprenorphine Scrn Ur Oxycodone Screen Urine Methadone Screen Urine Fentanyl Screen Ur Barbiturates Screen Carbamazepine Ur Phencyclidine Scrn Ur Amphetamines Screen U Benzodiazepines Scrn Urine Cocaine Screen U Marijuana (THC) Screen COVID-19 (TRESA) COVID-19 Clin Com Influenza Type A (AMANDA) Influenza Type B (AMANDA) Influenza A & B Note TB Test (T-Spot) Com TB Test Nil Control TB Test Panel A TB Test Panel B TB Test Positive Cntr 11/15/24 11/15/24 11/15/24 11:35 16:20 20:49 WBC RBC Hgb Hct MCV MCH MCHC RDW Plt Count MPV Immature Gran % (Auto) Neut % (Auto) Lymph % (Auto) [place] % (Auto) Eos % (Auto) Baso % (Auto) Lymph # (Auto) [place] # (Auto) Eos # (Auto) Baso # (Auto) Abs Immat Gran (auto) Absolute Neuts (auto) Absolute Nucleated RBC Nucleated RBC % (auto) Smear Tech's Comments Hold Purple Top VBG pH VBG pCO2 VBG pO2 VBG HCO3 VBG O2 Saturation VBG Base Excess Sodium Potassium Chloride Carbon Dioxide Anion Gap BUN Creatinine Estim Creat Clear Calc Estimated GFR POC Glucose 155 H 143 H 138 H Random Glucose Estimat Average Glucose Hemoglobin A1c % Osmolality Lactic Acid Calcium Magnesium Iron TIBC % Saturation Unsat Iron Binding Total Bilirubin AST ALT Alkaline Phosphatase Total Protein Albumin Triglycerides Cholesterol LDL Cholesterol, Calc HDL Cholesterol Lipase TSH Free T4 Urine Color Urine Appearance Urine pH Ur Specific [place] Urine Protein Urine Glucose (UA) Urine Ketones Urine Blood Urine Nitrite Ur Leukocyte Esterase Urine RBC Urine WBC Ur Squamous Epith Cells Urine Bacteria Hyaline Casts Urine Osmolality Ur Random Sodium Urine Opiates Screen Ur Buprenorphine Scrn Ur Oxycodone Screen Urine Methadone Screen Urine Fentanyl Screen Ur Barbiturates Screen Carbamazepine Ur Phencyclidine Scrn Ur Amphetamines Screen U Benzodiazepines Scrn Urine Cocaine Screen U Marijuana (THC) Screen COVID-19 (TRESA) COVID-19 Clin Com Influenza Type A (AMANDA) Influenza Type B (AMANDA) Influenza A & B Note TB Test (T-Spot) Com TB Test Nil Control TB Test Panel A TB Test Panel B TB Test Positive [facility] 11/16/24 11/16/24 11/16/24 06:35 11:24 13:55 WBC RBC Hgb Hct MCV MCH MCHC RDW Plt Count MPV Immature Gran % (Auto) Neut % (Auto) Lymph % (Auto) [place] % (Auto) Eos % (Auto) Baso % (Auto) Lymph # (Auto) [place] # (Auto) Eos # (Auto) Baso # (Auto) Abs Immat Gran (auto) Absolute Neuts (auto) Absolute Nucleated RBC Nucleated RBC % (auto) Smear Tech's Comments Hold Purple Top VBG pH VBG pCO2 VBG pO2 VBG HCO3 VBG O2 Saturation VBG Base Excess Sodium 134 L Potassium 4.7 Chloride 99 Carbon Dioxide 25 Anion Gap 15 BUN 21 H Creatinine 0.87 Estim Creat Clear Calc 38.7 Estimated GFR > 60 POC Glucose 192 H 152 H Random Glucose 58 L* Estimat Average Glucose Hemoglobin A1c % Osmolality Lactic Acid Calcium 9.6 Magnesium Iron TIBC % Saturation Unsat Iron Binding Total Bilirubin AST ALT Alkaline Phosphatase Total Protein Albumin Triglycerides Cholesterol LDL Cholesterol, Calc HDL Cholesterol Lipase TSH Free T4 Urine Color Urine Appearance Urine pH Ur Specific [place] Urine Protein Urine Glucose (UA) Urine Ketones Urine Blood Urine Nitrite Ur Leukocyte Esterase Urine RBC Urine WBC Ur Squamous Epith Cells Urine Bacteria Hyaline Casts Urine Osmolality Ur Random Sodium Urine Opiates Screen Ur Buprenorphine Scrn Ur Oxycodone Screen Urine Methadone Screen Urine Fentanyl Screen Ur Barbiturates Screen Carbamazepine Ur Phencyclidine Scrn Ur Amphetamines Screen U Benzodiazepines Scrn Urine Cocaine Screen U Marijuana (THC) Screen COVID-19 (TRESA) COVID-19 Clin Com Influenza Type A (AMANDA) Influenza Type B (AMANDA) Influenza A & B Note TB Test (T-Spot) Com TB Test Nil Control TB Test Panel A TB Test Panel B TB Test Positive Cntrl 11/16/24 11/16/24 11/16/24 14:34 16:22 20:02 WBC RBC Hgb Hct MCV MCH MCHC RDW Plt Count MPV Immature Gran % (Auto) Neut % (Auto) Lymph % (Auto) [place] % (Auto) Eos % (Auto) Baso % (Auto) Lymph # (Auto) [place] # (Auto) Eos # (Auto) Baso # (Auto) Abs Immat Gran (auto) Absolute Neuts (auto) Absolute Nucleated RBC Nucleated RBC % (auto) Smear Tech's Comments Hold Purple Top VBG pH VBG pCO2 VBG pO2 VBG HCO3 VBG O2 Saturation VBG Base Excess Sodium Potassium Chloride Carbon Dioxide Anion Gap BUN Creatinine Estim Creat Clear Calc Estimated GFR POC Glucose 69 126 H 141 H Random Glucose Estimat Average Glucose Hemoglobin A1c % Osmolality Lactic Acid Calcium Magnesium Iron TIBC % Saturation Unsat Iron Binding Total Bilirubin AST ALT Alkaline Phosphatase Total Protein Albumin Triglycerides Cholesterol LDL Cholesterol, Calc HDL Cholesterol Lipase TSH Free T4 Urine Color Urine Appearance Urine pH Ur Specific [place] Urine Protein Urine Glucose (UA) Urine Ketones Urine Blood Urine Nitrite Ur Leukocyte Esterase Urine RBC Urine WBC Ur Squamous Epith Cells Urine Bacteria Hyaline Casts Urine Osmolality Ur Random Sodium Urine Opiates Screen Ur Buprenorphine Scrn Ur Oxycodone Screen Urine Methadone Screen Urine Fentanyl Screen Ur Barbiturates Screen Carbamazepine Ur Phencyclidine Scrn Ur Amphetamines Screen U Benzodiazepines Scrn Urine Cocaine Screen U Marijuana (THC) Screen COVID-19 ([facility]) COVID-19 Clin Com Influenza Type A (AMANDA) Influenza Type B (AMANDA) Influenza A & B Note TB Test (T-Spot) Com TB Test Nil Control TB Test Panel A TB Test Panel B TB Test Positive [facility] 11/17/24 11/17/24 11/17/24 06:32 11:12 14:40 WBC RBC Hgb Hct MCV MCH MCHC RDW Plt Count MPV Immature Gran % (Auto) Neut % (Auto) Lymph % (Auto) [place] % (Auto) Eos % (Auto) Baso % (Auto) Lymph # (Auto) [place] # (Auto) Eos # (Auto) Baso # (Auto) Abs Immat Gran (auto) Absolute Neuts (auto) Absolute Nucleated RBC Nucleated RBC % (auto) Smear Tech's Comments Hold Purple Top VBG pH VBG pCO2 VBG pO2 VBG HCO3 VBG O2 Saturation VBG Base Excess Sodium Potassium Chloride Carbon Dioxide Anion Gap BUN Creatinine Estim Creat Clear Calc Estimated GFR POC Glucose 177 H 184 H 149 H Random Glucose Estimat Average Glucose Hemoglobin A1c % Osmolality Lactic Acid Calcium Magnesium Iron TIBC % Saturation Unsat Iron Binding Total Bilirubin AST ALT Alkaline Phosphatase Total Protein Albumin Triglycerides Cholesterol LDL Cholesterol, Calc HDL Cholesterol Lipase TSH Free T4 Urine Color Urine Appearance Urine pH Ur Specific [place] Urine Protein Urine Glucose (UA) Urine Ketones Urine Blood Urine Nitrite Ur Leukocyte Esterase Urine RBC Urine WBC Ur Squamous Epith Cells Urine Bacteria Hyaline Casts Urine Osmolality Ur Random Sodium Urine Opiates Screen Ur Buprenorphine Scrn Ur Oxycodone Screen Urine Methadone Screen Urine Fentanyl Screen Ur Barbiturates Screen Carbamazepine Ur Phencyclidine Scrn Ur Amphetamines Screen U Benzodiazepines Scrn Urine Cocaine Screen U Marijuana (THC) Screen COVID-19 ([facility]) COVID-19 Clin Com Influenza Type A (AMANDA) Influenza Type B (AMANDA) Influenza A & B Note TB Test (T-Spot) Com TB Test Nil Control TB Test Panel A TB Test Panel B TB Test Positive [facility] 11/17/24 11/18/24 11/18/24 16:18 06:08 11:15 WBC RBC Hgb Hct MCV MCH MCHC RDW Plt Count MPV Immature Gran % (Auto) Neut % (Auto) Lymph % (Auto) [place] % (Auto) Eos % (Auto) Baso % (Auto) Lymph # (Auto) [place] # (Auto) Eos # (Auto) Baso # (Auto) Abs Immat Gran (auto) Absolute Neuts (auto) Absolute Nucleated RBC Nucleated RBC % (auto) Smear Tech's Comments Hold Purple Top VBG pH VBG pCO2 VBG pO2 VBG HCO3 VBG O2 Saturation VBG Base Excess Sodium Potassium Chloride Carbon Dioxide Anion Gap BUN Creatinine Estim Creat Clear Calc Estimated GFR POC Glucose 119 H 192 H 127 H Random Glucose Estimat Average Glucose Hemoglobin A1c % Osmolality Lactic Acid Calcium Magnesium Iron TIBC % Saturation Unsat Iron Binding Total Bilirubin AST ALT Alkaline Phosphatase Total Protein Albumin Triglycerides Cholesterol LDL Cholesterol, Calc HDL Cholesterol Lipase TSH Free T4 Urine Color Urine Appearance Urine pH Ur Specific [place] Urine Protein Urine Glucose (UA) Urine Ketones Urine Blood Urine Nitrite Ur Leukocyte Esterase Urine RBC Urine WBC Ur Squamous Epith Cells Urine Bacteria Hyaline Casts Urine Osmolality Ur Random Sodium Urine Opiates Screen Ur Buprenorphine Scrn Ur Oxycodone Screen Urine Methadone Screen Urine Fentanyl Screen Ur Barbiturates Screen Carbamazepine Ur Phencyclidine Scrn Ur Amphetamines Screen U Benzodiazepines Scrn Urine Cocaine Screen U Marijuana (THC) Screen COVID-19 ([facility]) COVID-19 Clin Com Influenza Type A (AMANDA) Influenza Type B (AMANDA) Influenza A & B Note TB Test (T-Spot) Com TB Test Nil Control TB Test Panel A TB Test Panel B TB Test Positive Cntrl 11/18/24 11/18/24 11/18/24 13:33 16:18 21:19 WBC RBC Hgb Hct MCV MCH MCHC RDW Plt Count MPV Immature Gran % (Auto) Neut % (Auto) Lymph % (Auto) [place] % (Auto) Eos % (Auto) Baso % (Auto) Lymph # (Auto) [place] # (Auto) Eos # (Auto) Baso # (Auto) Abs Immat Gran (auto) Absolute Neuts (auto) Absolute Nucleated RBC Nucleated RBC % (auto) Smear Tech's Comments Hold Purple Top VBG pH VBG pCO2 VBG pO2 VBG HCO3 VBG O2 Saturation VBG Base Excess Sodium 137 Potassium 4.9 Chloride 105 Carbon Dioxide 25 Anion Gap 12 BUN 27 H Creatinine 1.03 Estim Creat Clear Calc 32.6 Estimated GFR 52 POC Glucose 110 154 H Random Glucose 81 Estimat Average Glucose Hemoglobin A1c % Osmolality Lactic Acid Calcium 9.1 Magnesium Iron TIBC % Saturation Unsat Iron Binding Total Bilirubin 0.3 AST 18 ALT 26 Alkaline Phosphatase 67 Total Protein 7.1 Albumin 4.4 Triglycerides Cholesterol LDL Cholesterol, Calc HDL Cholesterol Lipase TSH Free T4 Urine Color Urine Appearance Urine pH Ur Specific [place] Urine Protein Urine Glucose (UA) Urine Ketones Urine Blood Urine Nitrite Ur Leukocyte Esterase Urine RBC Urine WBC Ur Squamous Epith Cells Urine Bacteria Hyaline Casts Urine Osmolality Ur Random Sodium Urine Opiates Screen Ur Buprenorphine Scrn Ur Oxycodone Screen Urine Methadone Screen Urine Fentanyl Screen Ur Barbiturates Screen Carbamazepine Ur Phencyclidine Scrn Ur Amphetamines Screen U Benzodiazepines Scrn Urine Cocaine Screen U Marijuana (THC) Screen COVID-19 ([facility]) COVID-19 Clin Com Influenza Type A (AMANDA) Influenza Type B (AMANDA) Influenza A & B Note TB Test (T-Spot) Com TB Test Nil Control TB Test Panel A TB Test Panel B TB Test Positive Cntrl 11/19/24 11/19/24 11/19/24 06:30 11:23 15:59 WBC RBC Hgb Hct MCV MCH MCHC RDW Plt Count MPV Immature Gran % (Auto) Neut % (Auto) Lymph % (Auto) [place] % (Auto) Eos % (Auto) Baso % (Auto) Lymph # (Auto) [place] # (Auto) Eos # (Auto) Baso # (Auto) Abs Immat Gran (auto) Absolute Neuts (auto) Absolute Nucleated RBC Nucleated RBC % (auto) Smear Tech's Comments Hold Purple Top VBG pH VBG pCO2 VBG pO2 VBG HCO3 VBG O2 Saturation VBG Base Excess Sodium Potassium Chloride Carbon Dioxide Anion Gap BUN Creatinine Estim Creat Clear Calc Estimated GFR POC Glucose 178 H 157 H 110 Random Glucose Estimat Average Glucose Hemoglobin A1c % Osmolality Lactic Acid Calcium Magnesium Iron TIBC % Saturation Unsat Iron Binding Total Bilirubin AST ALT Alkaline Phosphatase Total Protein Albumin Triglycerides Cholesterol LDL Cholesterol, Calc HDL Cholesterol Lipase TSH Free T4 Urine Color Urine Appearance Urine pH Ur Specific [place] Urine Protein Urine Glucose (UA) Urine Ketones Urine Blood Urine Nitrite Ur Leukocyte Esterase Urine RBC Urine WBC Ur Squamous Epith Cells Urine Bacteria Hyaline Casts Urine Osmolality Ur Random Sodium Urine Opiates Screen Ur Buprenorphine Scrn Ur Oxycodone Screen Urine Methadone Screen Urine Fentanyl Screen Ur Barbiturates Screen Carbamazepine Ur Phencyclidine Scrn Ur Amphetamines Screen U Benzodiazepines Scrn Urine Cocaine Screen U Marijuana (THC) Screen COVID-19 ([facility]) COVID-19 Clin Com Influenza Type A (AMANDA) Influenza Type B (AMANDA) Influenza A & B Note TB Test (T-Spot) Com TB Test Nil Control TB Test Panel A TB Test Panel B TB Test Positive Cntrl 11/19/24 11/20/24 11/20/24 19:50 06:36 11:02 WBC RBC Hgb Hct MCV MCH MCHC RDW Plt Count MPV Immature Gran % (Auto) Neut % (Auto) Lymph % (Auto) [place] % (Auto) Eos % (Auto) Baso % (Auto) Lymph # (Auto) [place] # (Auto) Eos # (Auto) Baso # (Auto) Abs Immat Gran (auto) Absolute Neuts (auto) Absolute Nucleated RBC Nucleated RBC % (auto) Smear Tech's Comments Hold Purple Top VBG pH VBG pCO2 VBG pO2 VBG HCO3 VBG O2 Saturation VBG Base Excess Sodium 137 Potassium 4.7 Chloride 102 Carbon Dioxide 27 Anion Gap 13 BUN 23 H Creatinine 0.99 Estim Creat Clear Calc 34.0 Estimated GFR 55 POC Glucose 205 H 165 H Random Glucose 129 H Estimat Average Glucose 154 Hemoglobin A1c % 7.0 H Osmolality Lactic Acid Calcium 9.5 Magnesium Iron TIBC % Saturation Unsat Iron Binding Total Bilirubin AST ALT Alkaline Phosphatase Total Protein Albumin Triglycerides Cholesterol LDL Cholesterol, Calc HDL Cholesterol Lipase TSH Free T4 Urine Color Urine Appearance Urine pH Ur Specific [place] Urine Protein Urine Glucose (UA) Urine Ketones Urine Blood Urine Nitrite Ur Leukocyte Esterase Urine RBC Urine WBC Ur Squamous Epith Cells Urine Bacteria Hyaline Casts Urine Osmolality Ur Random Sodium Urine Opiates Screen Ur Buprenorphine Scrn Ur Oxycodone Screen Urine Methadone Screen Urine Fentanyl Screen Ur Barbiturates Screen Carbamazepine Ur Phencyclidine Scrn Ur Amphetamines Screen U Benzodiazepines Scrn Urine Cocaine Screen U Marijuana (THC) Screen COVID-19 ([facility]) COVID-19 Clin Com Influenza Type A (AMANDA) Influenza Type B (AMANDA) Influenza A & B Note TB Test (T-Spot) Com TB Test Nil Control TB Test Panel A TB Test Panel B TB Test Positive [facility] 11/20/24 11/20/24 11/20/24 11:33 16:23 20:46 WBC RBC Hgb Hct MCV MCH MCHC RDW Plt Count MPV Immature Gran % (Auto) Neut % (Auto) Lymph % (Auto) [place] % (Auto) Eos % (Auto) Baso % (Auto) Lymph # (Auto) [place] # (Auto) Eos # (Auto) Baso # (Auto) Abs Immat Gran (auto) Absolute Neuts (auto) Absolute Nucleated RBC Nucleated RBC % (auto) Smear Tech's Comments Hold Purple Top VBG pH VBG pCO2 VBG pO2 VBG HCO3 VBG O2 Saturation VBG Base Excess Sodium Potassium Chloride Carbon Dioxide Anion Gap BUN Creatinine Estim Creat Clear Calc Estimated GFR POC Glucose 106 202 H 162 H Random Glucose Estimat Average Glucose Hemoglobin A1c % Osmolality Lactic Acid Calcium Magnesium Iron TIBC % Saturation Unsat Iron Binding Total Bilirubin AST ALT Alkaline Phosphatase Total Protein Albumin Triglycerides Cholesterol LDL Cholesterol, Calc HDL Cholesterol Lipase TSH Free T4 Urine Color Urine Appearance Urine pH Ur Specific [place] Urine Protein Urine Glucose (UA) Urine Ketones Urine Blood Urine Nitrite Ur Leukocyte Esterase Urine RBC Urine WBC Ur Squamous Epith Cells Urine Bacteria Hyaline Casts Urine Osmolality Ur Random Sodium Urine Opiates Screen Ur Buprenorphine Scrn Ur Oxycodone Screen Urine Methadone Screen Urine Fentanyl Screen Ur Barbiturates Screen Carbamazepine Ur Phencyclidine Scrn Ur Amphetamines Screen U Benzodiazepines Scrn Urine Cocaine Screen U Marijuana (THC) Screen COVID-19 ([facility]) COVID-19 Clin Com Influenza Type A (AMANDA) Influenza Type B (AMANDA) Influenza A & B Note TB Test (T-Spot) Com TB Test Nil Control TB Test Panel A TB Test Panel B TB Test Positive Cntrl 11/21/24 11/21/24 11/21/24 06:31 11:24 16:25 WBC RBC Hgb Hct MCV MCH MCHC RDW Plt Count MPV Immature Gran % (Auto) Neut % (Auto) Lymph % (Auto) [place] % (Auto) Eos % (Auto) Baso % (Auto) Lymph # (Auto) [place] # (Auto) Eos # (Auto) Baso # (Auto) Abs Immat Gran (auto) Absolute Neuts (auto) Absolute Nucleated RBC Nucleated RBC % (auto) Smear Tech's Comments Hold Purple Top VBG pH VBG pCO2 VBG pO2 VBG HCO3 VBG O2 Saturation VBG Base Excess Sodium Potassium Chloride Carbon Dioxide Anion Gap BUN Creatinine Estim Creat Clear Calc Estimated GFR POC Glucose 189 H 196 H 110 Random Glucose Estimat Average Glucose Hemoglobin A1c % Osmolality Lactic Acid Calcium Magnesium Iron TIBC % Saturation Unsat Iron Binding Total Bilirubin AST ALT Alkaline Phosphatase Total Protein Albumin Triglycerides Cholesterol LDL Cholesterol, Calc HDL Cholesterol Lipase TSH Free T4 Urine Color Urine Appearance Urine pH Ur Specific [place] Urine Protein Urine Glucose (UA) Urine Ketones Urine Blood Urine Nitrite Ur Leukocyte Esterase Urine RBC Urine WBC Ur Squamous Epith Cells Urine Bacteria Hyaline Casts Urine Osmolality Ur Random Sodium Urine Opiates Screen Ur Buprenorphine Scrn Ur Oxycodone Screen Urine Methadone Screen Urine Fentanyl Screen Ur Barbiturates Screen Carbamazepine Ur Phencyclidine Scrn Ur Amphetamines Screen U Benzodiazepines Scrn Urine Cocaine Screen U Marijuana (THC) Screen COVID-19 ([facility]) COVID-19 Clin Com Influenza Type A (AMANDA) Influenza Type B (AMANDA) Influenza A & B Note TB Test (T-Spot) Com TB Test Nil Control TB Test Panel A TB Test Panel B TB Test Positive Cntr 11/21/24 11/22/24 11/22/24 21:16 06:56 11:14 WBC RBC Hgb Hct MCV MCH MCHC RDW Plt Count MPV Immature Gran % (Auto) Neut % (Auto) Lymph % (Auto) [place] % (Auto) Eos % (Auto) Baso % (Auto) Lymph # (Auto) [place] # (Auto) Eos # (Auto) Baso # (Auto) Abs Immat Gran (auto) Absolute Neuts (auto) Absolute Nucleated RBC Nucleated RBC % (auto) Smear Tech's Comments Hold Purple Top VBG pH VBG pCO2 VBG pO2 VBG HCO3 VBG O2 Saturation VBG Base Excess Sodium Potassium Chloride Carbon Dioxide Anion Gap BUN Creatinine Estim Creat Clear Calc Estimated GFR POC Glucose 138 H 195 H 224 H Random Glucose Estimat Average Glucose Hemoglobin A1c % Osmolality Lactic Acid Calcium Magnesium Iron TIBC % Saturation Unsat Iron Binding Total Bilirubin AST ALT Alkaline Phosphatase Total Protein Albumin Triglycerides Cholesterol LDL Cholesterol, Calc HDL Cholesterol Lipase TSH Free T4 Urine Color Urine Appearance Urine pH Ur Specific [place] Urine Protein Urine Glucose (UA) Urine Ketones Urine Blood Urine Nitrite Ur Leukocyte Esterase Urine RBC Urine WBC Ur Squamous Epith Cells Urine Bacteria Hyaline Casts Urine Osmolality Ur Random Sodium Urine Opiates Screen Ur Buprenorphine Scrn Ur Oxycodone Screen Urine Methadone Screen Urine Fentanyl Screen Ur Barbiturates Screen Carbamazepine Ur Phencyclidine Scrn Ur Amphetamines Screen U Benzodiazepines Scrn Urine Cocaine Screen U Marijuana (THC) Screen COVID-19 ([facility]) COVID-19 Clin Com Influenza Type A (AMANDA) Influenza Type B (AMANDA) Influenza A & B Note TB Test (T-Spot) Com TB Test Nil Control TB Test Panel A TB Test Panel B TB Test Positive Cntr 11/22/24 11/22/24 11/23/24 16:28 21:06 06:14 WBC RBC Hgb Hct MCV MCH MCHC RDW Plt Count MPV Immature Gran % (Auto) Neut % (Auto) Lymph % (Auto) [place] % (Auto) Eos % (Auto) Baso % (Auto) Lymph # (Auto) [place] # (Auto) Eos # (Auto) Baso # (Auto) Abs Immat Gran (auto) Absolute Neuts (auto) Absolute Nucleated RBC Nucleated RBC % (auto) Smear Tech's Comments Hold Purple Top VBG pH VBG pCO2 VBG pO2 VBG HCO3 VBG O2 Saturation VBG Base Excess Sodium Potassium Chloride Carbon Dioxide Anion Gap BUN Creatinine Estim Creat Clear Calc Estimated GFR POC Glucose 129 H 94 191 H Random Glucose Estimat Average Glucose Hemoglobin A1c % Osmolality Lactic Acid Calcium Magnesium Iron TIBC % Saturation Unsat Iron Binding Total Bilirubin AST ALT Alkaline Phosphatase Total Protein Albumin Triglycerides Cholesterol LDL Cholesterol, Calc HDL Cholesterol Lipase TSH Free T4 Urine Color Urine Appearance Urine pH Ur Specific [place] Urine Protein Urine Glucose (UA) Urine Ketones Urine Blood Urine Nitrite Ur Leukocyte Esterase Urine RBC Urine WBC Ur Squamous Epith Cells Urine Bacteria Hyaline Casts Urine Osmolality Ur Random Sodium Urine Opiates Screen Ur Buprenorphine Scrn Ur Oxycodone Screen Urine Methadone Screen Urine Fentanyl Screen Ur Barbiturates Screen Carbamazepine Ur Phencyclidine Scrn Ur Amphetamines Screen U Benzodiazepines Scrn Urine Cocaine Screen U Marijuana (THC) Screen COVID-19 ([facility]) COVID-19 Clin Com Influenza Type A (AMANDA) Influenza Type B (AMANDA) Influenza A & B Note TB Test (T-Spot) Com TB Test Nil Control TB Test Panel A TB Test Panel B TB Test Positive Cntrl 11/23/24 11/24/24 11/25/24 11:22 06:16 06:42 WBC RBC Hgb Hct MCV MCH MCHC RDW Plt Count MPV Immature Gran % (Auto) Neut % (Auto) Lymph % (Auto) [place] % (Auto) Eos % (Auto) Baso % (Auto) Lymph # (Auto) [place] # (Auto) Eos # (Auto) Baso # (Auto) Abs Immat Gran (auto) Absolute Neuts (auto) Absolute Nucleated RBC Nucleated RBC % (auto) Smear Tech's Comments Hold Purple Top VBG pH VBG pCO2 VBG pO2 VBG HCO3 VBG O2 Saturation VBG Base Excess Sodium Potassium Chloride Carbon Dioxide Anion Gap BUN Creatinine Estim Creat Clear Calc Estimated GFR POC Glucose 188 H 184 H 167 H Random Glucose Estimat Average Glucose Hemoglobin A1c % Osmolality Lactic Acid Calcium Magnesium Iron TIBC % Saturation Unsat Iron Binding Total Bilirubin AST ALT Alkaline Phosphatase Total Protein Albumin Triglycerides Cholesterol LDL Cholesterol, Calc HDL Cholesterol Lipase TSH Free T4 Urine Color Urine Appearance Urine pH Ur Specific [place] Urine Protein Urine Glucose (UA) Urine Ketones Urine Blood Urine Nitrite Ur Leukocyte Esterase Urine RBC Urine WBC Ur Squamous Epith Cells Urine Bacteria Hyaline Casts Urine Osmolality Ur Random Sodium Urine Opiates Screen Ur Buprenorphine Scrn Ur Oxycodone Screen Urine Methadone Screen Urine Fentanyl Screen Ur Barbiturates Screen Carbamazepine Ur Phencyclidine Scrn Ur Amphetamines Screen U Benzodiazepines Scrn Urine Cocaine Screen U Marijuana (THC) Screen COVID-19 ([facility]) COVID-19 Clin Com Influenza Type A (AMANDA) Influenza Type B (AMANDA) Influenza A & B Note TB Test (T-Spot) Com TB Test Nil Control TB Test Panel A TB Test Panel B TB Test Positive Cntrl 11/26/24 11/27/24 11/28/24 06:23 06:32 06:13 WBC RBC Hgb Hct MCV MCH MCHC RDW Plt Count MPV Immature Gran % (Auto) Neut % (Auto) Lymph % (Auto) [place] % (Auto) Eos % (Auto) Baso % (Auto) Lymph # (Auto) [place] # (Auto) Eos # (Auto) Baso # (Auto) Abs Immat Gran (auto) Absolute Neuts (auto) Absolute Nucleated RBC Nucleated RBC % (auto) Smear Tech's Comments Hold Purple Top VBG pH VBG pCO2 VBG pO2 VBG HCO3 VBG O2 Saturation VBG Base Excess Sodium Potassium Chloride Carbon Dioxide Anion Gap BUN Creatinine Estim Creat Clear Calc Estimated GFR POC Glucose 166 H 167 H 159 H Random Glucose Estimat Average Glucose Hemoglobin A1c % Osmolality Lactic Acid Calcium Magnesium Iron TIBC % Saturation Unsat Iron Binding Total Bilirubin AST ALT Alkaline Phosphatase Total Protein Albumin Triglycerides Cholesterol LDL Cholesterol, Calc HDL Cholesterol Lipase TSH Free T4 Urine Color Urine Appearance Urine pH Ur Specific [place] Urine Protein Urine Glucose (UA) Urine Ketones Urine Blood Urine Nitrite Ur Leukocyte Esterase Urine RBC Urine WBC Ur Squamous Epith Cells Urine Bacteria Hyaline Casts Urine Osmolality Ur Random Sodium Urine Opiates Screen Ur Buprenorphine Scrn Ur Oxycodone Screen Urine Methadone Screen Urine Fentanyl Screen Ur Barbiturates Screen Carbamazepine Ur Phencyclidine Scrn Ur Amphetamines Screen U Benzodiazepines Scrn Urine Cocaine Screen U Marijuana (THC) Screen COVID-19 ([facility]) COVID-19 Clin Com Influenza Type A (AMANDA) Influenza Type B (AMANDA) Influenza A & B Note TB Test (T-Spot) Com TB Test Nil Control TB Test Panel A TB Test Panel B TB Test Positive Cnt 11/29/24 11/30/24 12/01/24 06:16 06:16 06:37 WBC RBC Hgb Hct MCV MCH MCHC RDW Plt Count MPV Immature Gran % (Auto) Neut % (Auto) Lymph % (Auto) [place] % (Auto) Eos % (Auto) Baso % (Auto) Lymph # (Auto) [place] # (Auto) Eos # (Auto) Baso # (Auto) Abs Immat Gran (auto) Absolute Neuts (auto) Absolute Nucleated RBC Nucleated RBC % (auto) Smear Tech's Comments Hold Purple Top VBG pH VBG pCO2 VBG pO2 VBG HCO3 VBG O2 Saturation VBG Base Excess Sodium Potassium Chloride Carbon Dioxide Anion Gap BUN Creatinine Estim Creat Clear Calc Estimated GFR POC Glucose 156 H 136 H 129 H Random Glucose Estimat Average Glucose Hemoglobin A1c % Osmolality Lactic Acid Calcium Magnesium Iron TIBC % Saturation Unsat Iron Binding Total Bilirubin AST ALT Alkaline Phosphatase Total Protein Albumin Triglycerides Cholesterol LDL Cholesterol, Calc HDL Cholesterol Lipase TSH Free T4 Urine Color Urine Appearance Urine pH Ur Specific [place] Urine Protein Urine Glucose (UA) Urine Ketones Urine Blood Urine Nitrite Ur Leukocyte Esterase Urine RBC Urine WBC Ur Squamous Epith Cells Urine Bacteria Hyaline Casts Urine Osmolality Ur Random Sodium Urine Opiates Screen Ur Buprenorphine Scrn Ur Oxycodone Screen Urine Methadone Screen Urine Fentanyl Screen Ur Barbiturates Screen Carbamazepine Ur Phencyclidine Scrn Ur Amphetamines Screen U Benzodiazepines Scrn Urine Cocaine Screen U Marijuana (THC) Screen COVID-19 ([facility]ESA) COVID-19 Clin Com Influenza Type A (AMANDA) Influenza Type B (AMANDA) Influenza A & B Note TB Test (T-Spot) Com TB Test Nil Control TB Test Panel A TB Test Panel B TB Test Positive [facility] 12/02/24 12/03/24 12/03/24 06:24 06:17 16:25 WBC RBC Hgb Hct MCV MCH MCHC RDW Plt Count MPV Immature Gran % (Auto) Neut % (Auto) Lymph % (Auto) [place] % (Auto) Eos % (Auto) Baso % (Auto) Lymph # (Auto) [place] # (Auto) Eos # (Auto) Baso # (Auto) Abs Immat Gran (auto) Absolute Neuts (auto) Absolute Nucleated RBC Nucleated RBC % (auto) Smear Tech's Comments Hold Purple Top VBG pH VBG pCO2 VBG pO2 VBG HCO3 VBG O2 Saturation VBG Base Excess Sodium Potassium Chloride Carbon Dioxide Anion Gap BUN Creatinine Estim Creat Clear Calc Estimated GFR POC Glucose 163 H 182 H 120 H Random Glucose Estimat Average Glucose Hemoglobin A1c % Osmolality Lactic Acid Calcium Magnesium Iron TIBC % Saturation Unsat Iron Binding Total Bilirubin AST ALT Alkaline Phosphatase Total Protein Albumin Triglycerides Cholesterol LDL Cholesterol, Calc HDL Cholesterol Lipase TSH Free T4 Urine Color Urine Appearance Urine pH Ur Specific [place] Urine Protein Urine Glucose (UA) Urine Ketones Urine Blood Urine Nitrite Ur Leukocyte Esterase Urine RBC Urine WBC Ur Squamous Epith Cells Urine Bacteria Hyaline Casts Urine Osmolality Ur Random Sodium Urine Opiates Screen Ur Buprenorphine Scrn Ur Oxycodone Screen Urine Methadone Screen Urine Fentanyl Screen Ur Barbiturates Screen Carbamazepine Ur Phencyclidine Scrn Ur Amphetamines Screen U Benzodiazepines Scrn Urine Cocaine Screen U Marijuana (THC) Screen COVID-19 ([facility]ESA) COVID-19 Clin Com Influenza Type A (AMANDA) Influenza Type B (AMANDA) Influenza A & B Note TB Test (T-Spot) Com TB Test Nil Control TB Test Panel A TB Test Panel B TB Test Positive Cntrl 12/04/24 12/05/24 12/06/24 05:52 06:00 05:54 WBC RBC Hgb Hct MCV MCH MCHC RDW Plt Count MPV Immature Gran % (Auto) Neut % (Auto) Lymph % (Auto) [place] % (Auto) Eos % (Auto) Baso % (Auto) Lymph # (Auto) [place] # (Auto) Eos # (Auto) Baso # (Auto) Abs Immat Gran (auto) Absolute Neuts (auto) Absolute Nucleated RBC Nucleated RBC % (auto) Smear Tech's Comments Hold Purple Top VBG pH VBG pCO2 VBG pO2 VBG HCO3 VBG O2 Saturation VBG Base Excess Sodium Potassium Chloride Carbon Dioxide Anion Gap BUN Creatinine Estim Creat Clear Calc Estimated GFR POC Glucose 161 H 185 H 206 H Random Glucose Estimat Average Glucose Hemoglobin A1c % Osmolality Lactic Acid Calcium Magnesium Iron TIBC % Saturation Unsat Iron Binding Total Bilirubin AST ALT Alkaline Phosphatase Total Protein Albumin Triglycerides Cholesterol LDL Cholesterol, Calc HDL Cholesterol Lipase TSH Free T4 Urine Color Urine Appearance Urine pH Ur Specific [place] Urine Protein Urine Glucose (UA) Urine Ketones Urine Blood Urine Nitrite Ur Leukocyte Esterase Urine RBC Urine WBC Ur Squamous Epith Cells Urine Bacteria Hyaline Casts Urine Osmolality Ur Random Sodium Urine Opiates Screen Ur Buprenorphine Scrn Ur Oxycodone Screen Urine Methadone Screen Urine Fentanyl Screen Ur Barbiturates Screen Carbamazepine Ur Phencyclidine Scrn Ur Amphetamines Screen U Benzodiazepines Scrn Urine Cocaine Screen U Marijuana (THC) Screen COVID-19 (TRESA) COVID-19 Clin Com Influenza Type A (AMANDA) Influenza Type B (AMANDA) Influenza A & B Note TB Test (T-Spot) Com TB Test Nil Control TB Test Panel A TB Test Panel B TB Test Positive Cntr 12/07/24 12/08/24 12/09/24 06:19 06:31 06:26 WBC RBC Hgb Hct MCV MCH MCHC RDW Plt Count MPV Immature Gran % (Auto) Neut % (Auto) Lymph % (Auto) [place] % (Auto) Eos % (Auto) Baso % (Auto) Lymph # (Auto) [place] # (Auto) Eos # (Auto) Baso # (Auto) Abs Immat Gran (auto) Absolute Neuts (auto) Absolute Nucleated RBC Nucleated RBC % (auto) Smear Tech's Comments Hold Purple Top VBG pH VBG pCO2 VBG pO2 VBG HCO3 VBG O2 Saturation VBG Base Excess Sodium Potassium Chloride Carbon Dioxide Anion Gap BUN Creatinine Estim Creat Clear Calc Estimated GFR POC Glucose 194 H 163 H 165 H Random Glucose Estimat Average Glucose Hemoglobin A1c % Osmolality Lactic Acid Calcium Magnesium Iron TIBC % Saturation Unsat Iron Binding Total Bilirubin AST ALT Alkaline Phosphatase Total Protein Albumin Triglycerides Cholesterol LDL Cholesterol, Calc HDL Cholesterol Lipase TSH Free T4 Urine Color Urine Appearance Urine pH Ur Specific [place] Urine Protein Urine Glucose (UA) Urine Ketones Urine Blood Urine Nitrite Ur Leukocyte Esterase Urine RBC Urine WBC Ur Squamous Epith Cells Urine Bacteria Hyaline Casts Urine Osmolality Ur Random Sodium Urine Opiates Screen Ur Buprenorphine Scrn Ur Oxycodone Screen Urine Methadone Screen Urine Fentanyl Screen Ur Barbiturates Screen Carbamazepine Ur Phencyclidine Scrn Ur Amphetamines Screen U Benzodiazepines Scrn Urine Cocaine Screen U Marijuana (THC) Screen COVID-19 ([facility]) COVID-19 Clin Com Influenza Type A (AMANDA) Influenza Type B (AMANDA) Influenza A & B Note TB Test (T-Spot) Com TB Test Nil Control TB Test Panel A TB Test Panel B TB Test Positive Cnt 12/09/24 12/10/24 12/11/24 12:31 06:09 06:15 WBC RBC Hgb Hct MCV MCH MCHC RDW Plt Count MPV Immature Gran % (Auto) Neut % (Auto) Lymph % (Auto) [place] % (Auto) Eos % (Auto) Baso % (Auto) Lymph # (Auto) [place] # (Auto) Eos # (Auto) Baso # (Auto) Abs Immat Gran (auto) Absolute Neuts (auto) Absolute Nucleated RBC Nucleated RBC % (auto) Smear Tech's Comments Hold Purple Top VBG pH VBG pCO2 VBG pO2 VBG HCO3 VBG O2 Saturation VBG Base Excess Sodium Potassium Chloride Carbon Dioxide Anion Gap BUN Creatinine Estim Creat Clear Calc Estimated GFR POC Glucose 167 H 159 H Random Glucose Estimat Average Glucose Hemoglobin A1c % Osmolality Lactic Acid Calcium Magnesium Iron TIBC % Saturation Unsat Iron Binding Total Bilirubin AST ALT Alkaline Phosphatase Total Protein Albumin Triglycerides Cholesterol LDL Cholesterol, Calc HDL Cholesterol Lipase TSH Free T4 Urine Color Urine Appearance Urine pH Ur Specific [place] Urine Protein Urine Glucose (UA) Urine Ketones Urine Blood Urine Nitrite Ur Leukocyte Esterase Urine RBC Urine WBC Ur Squamous Epith Cells Urine Bacteria Hyaline Casts Urine Osmolality Ur Random Sodium Urine Opiates Screen Ur Buprenorphine Scrn Ur Oxycodone Screen Urine Methadone Screen Urine Fentanyl Screen Ur Barbiturates Screen Carbamazepine Ur Phencyclidine Scrn Ur Amphetamines Screen U Benzodiazepines Scrn Urine Cocaine Screen U Marijuana (THC) Screen COVID-19 ([facility]) COVID-19 Clin Com Influenza Type A (AMANDA) Influenza Type B (AMANDA) Influenza A & B Note TB Test (T-Spot) Com Negative TB Test Nil Control Passed TB Test Panel A 1 TB Test Panel B 0 TB Test Positive Cntrl Passed 12/12/24 12/13/24 12/13/24 06:24 06:14 12:13 WBC RBC Hgb Hct MCV MCH MCHC RDW Plt Count MPV Immature Gran % (Auto) Neut % (Auto) Lymph % (Auto) [place] % (Auto) Eos % (Auto) Baso % (Auto) Lymph # (Auto) [place] # (Auto) Eos # (Auto) Baso # (Auto) Abs Immat Gran (auto) Absolute Neuts (auto) Absolute Nucleated RBC Nucleated RBC % (auto) Smear Tech's Comments Hold Purple Top VBG pH VBG pCO2 VBG pO2 VBG HCO3 VBG O2 Saturation VBG Base Excess Sodium 135 Potassium 4.4 Chloride 103 Carbon Dioxide 20 L Anion Gap 16 BUN 32 H Creatinine 1.39 Estim Creat Clear Calc 24.1 Estimated GFR 37 POC Glucose 148 H 151 H Random Glucose 351 H* Estimat Average Glucose Hemoglobin A1c % Osmolality Lactic Acid Calcium 9.3 Magnesium Iron TIBC % Saturation Unsat Iron Binding Total Bilirubin AST ALT Alkaline Phosphatase Total Protein Albumin Triglycerides Cholesterol LDL Cholesterol, Calc HDL Cholesterol Lipase TSH Free T4 Urine Color Urine Appearance Urine pH Ur Specific [place] Urine Protein Urine Glucose (UA) Urine Ketones Urine Blood Urine Nitrite Ur Leukocyte Esterase Urine RBC Urine WBC Ur Squamous Epith Cells Urine Bacteria Hyaline Casts Urine Osmolality Ur Random Sodium Urine Opiates Screen Ur Buprenorphine Scrn Ur Oxycodone Screen Urine Methadone Screen Urine Fentanyl Screen Ur Barbiturates Screen Carbamazepine Ur Phencyclidine Scrn Ur Amphetamines Screen U Benzodiazepines Scrn Urine Cocaine Screen U Marijuana (THC) Screen COVID-19 ([facility]) COVID-19 Clin Com Influenza Type A (AMANDA) Influenza Type B (AMANDA) Influenza A & B Note TB Test (T-Spot) Com TB Test Nil Control TB Test Panel A TB Test Panel B TB Test Positive [facility] 12/14/24 12/15/24 12/15/24 06:21 06:11 21:16 WBC RBC Hgb Hct MCV MCH MCHC RDW Plt Count MPV Immature Gran % (Auto) Neut % (Auto) Lymph % (Auto) [place] % (Auto) Eos % (Auto) Baso % (Auto) Lymph # (Auto) [place] # (Auto) Eos # (Auto) Baso # (Auto) Abs Immat Gran (auto) Absolute Neuts (auto) Absolute Nucleated RBC Nucleated RBC % (auto) Smear Tech's Comments Hold Purple Top VBG pH VBG pCO2 VBG pO2 VBG HCO3 VBG O2 Saturation VBG Base Excess Sodium Potassium Chloride Carbon Dioxide Anion Gap BUN Creatinine Estim Creat Clear Calc Estimated GFR POC Glucose 150 H 158 H 106 Random Glucose Estimat Average Glucose Hemoglobin A1c % Osmolality Lactic Acid Calcium Magnesium Iron TIBC % Saturation Unsat Iron Binding Total Bilirubin AST ALT Alkaline Phosphatase Total Protein Albumin Triglycerides Cholesterol LDL Cholesterol, Calc HDL Cholesterol Lipase TSH Free T4 Urine Color Urine Appearance Urine pH Ur Specific [place] Urine Protein Urine Glucose (UA) Urine Ketones Urine Blood Urine Nitrite Ur Leukocyte Esterase Urine RBC Urine WBC Ur Squamous Epith Cells Urine Bacteria Hyaline Casts Urine Osmolality Ur Random Sodium Urine Opiates Screen Ur Buprenorphine Scrn Ur Oxycodone Screen Urine Methadone Screen Urine Fentanyl Screen Ur Barbiturates Screen Carbamazepine Ur Phencyclidine Scrn Ur Amphetamines Screen U Benzodiazepines Scrn Urine Cocaine Screen U Marijuana (THC) Screen COVID-19 ([facility]) COVID-19 Clin Com Influenza Type A (AMANDA) Influenza Type B (AMANDA) Influenza A & B Note TB Test (T-Spot) Com TB Test Nil Control TB Test Panel A TB Test Panel B TB Test Positive Cntr 12/16/24 12/16/24 12/16/24 06:45 12:26 15:35 WBC RBC Hgb Hct MCV MCH MCHC RDW Plt Count MPV Immature Gran % (Auto) Neut % (Auto) Lymph % (Auto) [place] % (Auto) Eos % (Auto) Baso % (Auto) Lymph # (Auto) [place] # (Auto) Eos # (Auto) Baso # (Auto) Abs Immat Gran (auto) Absolute Neuts (auto) Absolute Nucleated RBC Nucleated RBC % (auto) Smear Tech's Comments Hold Purple Top VBG pH VBG pCO2 VBG pO2 VBG HCO3 VBG O2 Saturation VBG Base Excess Sodium Potassium Chloride Carbon Dioxide Anion Gap BUN Creatinine Estim Creat Clear Calc Estimated GFR POC Glucose 194 H Random Glucose Estimat Average Glucose Hemoglobin A1c % Osmolality Lactic Acid Calcium Magnesium Iron TIBC % Saturation Unsat Iron Binding Total Bilirubin AST ALT Alkaline Phosphatase Total Protein Albumin Triglycerides Cholesterol LDL Cholesterol, Calc HDL Cholesterol Lipase TSH Free T4 Urine Color Urine Appearance Urine pH Ur Specific [place] Urine Protein Urine Glucose (UA) Urine Ketones Urine Blood Urine Nitrite Ur Leukocyte Esterase Urine RBC Urine WBC Ur Squamous Epith Cells Urine Bacteria Hyaline Casts Urine Osmolality Ur Random Sodium Urine Opiates Screen Ur Buprenorphine Scrn Ur Oxycodone Screen Urine Methadone Screen Urine Fentanyl Screen Ur Barbiturates Screen Carbamazepine Ur Phencyclidine Scrn Ur Amphetamines Screen U Benzodiazepines Scrn Urine Cocaine Screen U Marijuana (THC) Screen COVID-19 ([facility]) Negative COVID-19 Clin Com See Note Influenza Type A (AMANDA) Negative Influenza Type B (AMANDA) Negative Influenza A & B Note See Note TB Test (T-Spot) Com TB Test Nil Control TB Test Panel A TB Test Panel B TB Test Positive [facility] 12/16/24 12/17/24 12/19/24 20:01 19:13 10:21 WBC RBC Hgb Hct MCV MCH MCHC RDW Plt Count MPV Immature Gran % (Auto) Neut % (Auto) Lymph % (Auto) [place] % (Auto) Eos % (Auto) Baso % (Auto) Lymph # (Auto) [place] # (Auto) Eos # (Auto) Baso # (Auto) Abs Immat Gran (auto) Absolute Neuts (auto) Absolute Nucleated RBC Nucleated RBC % (auto) Smear Tech's Comments Hold Purple Top VBG pH VBG pCO2 VBG pO2 VBG HCO3 VBG O2 Saturation VBG Base Excess Sodium Potassium Chloride Carbon Dioxide Anion Gap BUN Creatinine Estim Creat Clear Calc Estimated GFR POC Glucose 213 H 265 H 408 H* Random Glucose Estimat Average Glucose Hemoglobin A1c % Osmolality Lactic Acid Calcium Magnesium Iron TIBC % Saturation Unsat Iron Binding Total Bilirubin AST ALT Alkaline Phosphatase Total Protein Albumin Triglycerides Cholesterol LDL Cholesterol, Calc HDL Cholesterol Lipase TSH Free T4 Urine Color Urine Appearance Urine pH Ur Specific [place] Urine Protein Urine Glucose (UA) Urine Ketones Urine Blood Urine Nitrite Ur Leukocyte Esterase Urine RBC Urine WBC Ur Squamous Epith Cells Urine Bacteria Hyaline Casts Urine Osmolality Ur Random Sodium Urine Opiates Screen Ur Buprenorphine Scrn Ur Oxycodone Screen Urine Methadone Screen Urine Fentanyl Screen Ur Barbiturates Screen Carbamazepine Ur Phencyclidine Scrn Ur Amphetamines Screen U Benzodiazepines Scrn Urine Cocaine Screen U Marijuana (THC) Screen COVID-19 ([facility]) COVID-19 Clin Com Influenza Type A (AMANDA) Influenza Type B (AMANDA) Influenza A & B Note TB Test (T-Spot) Com TB Test Nil Control TB Test Panel A TB Test Panel B TB Test Positive [facility] 12/19/24 12/19/24 16:02 20:57 WBC RBC Hgb Hct MCV MCH MCHC RDW Plt Count MPV Immature Gran % (Auto) Neut % (Auto) Lymph % (Auto) [place] % (Auto) Eos % (Auto) Baso % (Auto) Lymph # (Auto) [place] # (Auto) Eos # (Auto) Baso # (Auto) Abs Immat Gran (auto) Absolute Neuts (auto) Absolute Nucleated RBC Nucleated RBC % (auto) Smear Tech's Comments Hold Purple Top VBG pH VBG pCO2 VBG pO2 VBG HCO3 VBG O2 Saturation VBG Base Excess Sodium Potassium Chloride Carbon Dioxide Anion Gap BUN Creatinine Estim Creat Clear Calc Estimated GFR POC Glucose 115 101 Random Glucose Estimat Average Glucose Hemoglobin A1c % Osmolality Lactic Acid Calcium Magnesium Iron TIBC % Saturation Unsat Iron Binding Total Bilirubin AST ALT Alkaline Phosphatase Total Protein Albumin Triglycerides Cholesterol LDL Cholesterol, Calc HDL Cholesterol Lipase TSH Free T4 Urine Color Urine Appearance Urine pH Ur Specific [place] Urine Protein Urine Glucose (UA) Urine Ketones Urine Blood Urine Nitrite Ur Leukocyte Esterase Urine RBC Urine WBC Ur Squamous Epith Cells Urine Bacteria Hyaline Casts Urine Osmolality Ur Random Sodium Urine Opiates Screen Ur Buprenorphine Scrn Ur Oxycodone Screen Urine Methadone Screen Urine Fentanyl Screen Ur Barbiturates Screen Carbamazepine Ur Phencyclidine Scrn Ur Amphetamines Screen U Benzodiazepines Scrn Urine Cocaine Screen U Marijuana (THC) Screen COVID-19 ([facility]) COVID-19 Clin Com Influenza Type A (AMANDA) Influenza Type B (AMANDA) Influenza A & B Note TB Test (T-Spot) Com TB Test Nil Control TB Test Panel A TB Test Panel B TB Test Positive Cntrl Airway Heart: RRR Lungs: CTA Assessment and Plan Assessment Anesthesia Assessment: Anesthesia Plan Discussed Final Anesthetic Review Family History of Problems with Anesthesia: No History of Problems with Anesthesia: No NPO: Yes ASA Class: III Patient Risk: Low Procedure Risk: Low Anesthetic Plan Anesthetic Plan: GA Disposition: Standard PACU
[2024-12-20 09:17] LABS: Alanine Aminotransferase 70 U/L (0-31); Albumin Level 3.6 g/dL (3.5-5.0); Alkaline Phosphatase 60 U/L (39-117); Anion Gap 13 (12-20); Aspartate Amino Transferase 66 U/L (5-31); Blood Urea Nitrogen 27 mg/dL (9-16); Calcium 9.0 mg/dL (8.4-10.2); Carbon Dioxide 25 mmol/L (22-29); Chloride 107 mmol/L (96-108); Creatinine Clr Calc Pharmacy 28.6; Estimated Glomerular Filt Rate 49; Potassium 5.2 mmol/L (3.3-5.1); Sodium 140 mmol/L (135-145); Total Protein 6.6 g/dL (6.5-8.0)
[2024-12-20] MEDS: Fluticasone/Vilanterol 100/25 BLST.W.DEV 1 PUFF INHALE (09:43)
[2024-12-20] MEDS: buPROPion HCl XL 300 MG TAB.ER.24H PO (09:45)
--- NOTE | 2024-12-20 10:09 | HO.POSTANES ---
Post Anesthesia Evaluation Post Anesthesia Evaluation Date of Service: 12/20/24 Vital Signs: Vital Signs Temp Pulse Resp BP Pulse Ox O2 Del Method O2 Flow Rate 12/20/24 09:40 97.3 F 95 20 130/81 95 12/20/24 09:37 97.3 F 95 20 130/81 95 Room Air 12/20/24 09:08 98.0 F 85 18 114/66 99 Room Air 12/20/24 08:56 85 22 H 125/70 99 Room Air 12/20/24 08:41 85 22 H 114/70 99 Room Air 12/20/24 08:36 82 20 114/73 100 Nasal Cannula with ETCO2 3 12/20/24 08:31 79 26 H 123/71 100 Nasal Cannula with ETCO2 3 12/20/24 08:26 98.2 F 91 16 172/77 H 100 Nasal Cannula with ETCO2 3 12/20/24 06:39 97 F 86 18 123/61 96 Room Air 12/20/24 06:25 97.3 F 93 16 120/70 95 Anesthesia: General Mental Status: Awake Pain Control: Satisfactory Nausea/Vomiting: None Hydration: Adequate Anesthesia-Related Issues: No Anes. Related Issues
[2024-12-20 10:45] LABS: Glucose, Whole Blood 181 mg/dL (60-115)
[2024-12-20 10:45] LABS: Glucose, Whole Blood 223 mg/dL (60-115)
[2024-12-20] MEDS: Metoclopramide HCl Oral Soln 10 MG/10 ML SOLUTION 5 MG PO ×2 (11:12→16:20)
[2024-12-20 15:52] LABS: Glucose, Whole Blood 177 mg/dL (60-115)
[2024-12-20] MEDS: clonazePAM ODT 0.125 MG TAB.RAPDIS 0.25 MG PO ×2 (15:58→20:33)
--- NOTE | 2024-12-20 16:03 | HO.PSYCHPN ---
Subjective Subjective Date of Service: 12/20/24 Reason For Visit: SI with plan to OD on medications, increased anxie Subjective Notes: Conditional Voluntary Interim History: Pt slept through the night. Pt had ECT this morning. She denies any SANDOVAL. She reports increase movement of legs. She reports feeling anxious but hopeful that ECT will work. She denies SI/HI. She is visible on the unit. Review of Systems Review of Systems GI SE of antibiotic Yes all other systems are reviewed and are negative Mental Status Exam Mental Status Exam Narrative: She is alert, pleasant and cooperative. Speech is normal. Moderate eye contact. Affect is appropriate and contained. anxiety and depression present. No acute signs of psychosis. Cognitively impaired. Judgment is impaired Diagnostics Vital Signs (24Hr): Vital Signs - 24 hr 12/19/24 20:00 12/20/24 06:25 12/20/24 06:39 Temperature 97.0 F 97.3 F 97 F Pulse Rate 102 H 93 86 Respiratory Rate 16 16 18 Blood Pressure 151/79 H 120/70 123/61 Pulse Oximetry 94 95 96 Oxygen Delivery Method Room Air Room Air Oxygen Flow Rate 12/20/24 08:26 12/20/24 08:31 12/20/24 08:36 Temperature 98.2 F Pulse Rate 91 79 82 Respiratory Rate 16 26 H 20 Blood Pressure 172/77 H 123/71 114/73 Pulse Oximetry 100 100 100 Oxygen Delivery Method Nasal Cannula with ETCO2 Nasal Cannula with ETCO2 Nasal Cannula with ETCO2 Oxygen Flow Rate 3 3 3 12/20/24 08:41 12/20/24 08:56 12/20/24 09:08 Temperature 98.0 F Pulse Rate 85 85 85 Respiratory Rate 22 H 22 H 18 Blood Pressure 114/70 125/70 114/66 Pulse Oximetry 99 99 99 Oxygen Delivery Method Room Air Room Air Room Air Oxygen Flow Rate 12/20/24 09:37 12/20/24 09:40 Temperature 97.3 F 97.3 F Pulse Rate 95 95 Respiratory Rate 20 20 Blood Pressure 130/81 130/81 Pulse Oximetry 95 95 Oxygen Delivery Method Room Air Oxygen Flow Rate BMI result Body Mass Index 22.5 Labs 11/02/24 20:14 12/20/24 08:43 Labs: Laboratory Results - last 48 hr 12/19/24 12/19/24 12/19/24 10:21 16:02 20:57 Sodium Potassium Chloride Carbon Dioxide Anion Gap BUN Creatinine Estim Creat Clear Calc Estimated GFR POC Glucose 408 H* 115 101 Random Glucose Calcium Total Bilirubin AST ALT Alkaline Phosphatase Total Protein Albumin 12/20/24 12/20/24 12/20/24 06:20 08:43 10:41 Sodium 140 Potassium 5.2 H Chloride 107 Carbon Dioxide 25 Anion Gap 13 BUN 27 H Creatinine 1.08 Estim Creat Clear Calc 28.6 Estimated GFR 49 POC Glucose 181 H 223 H Random Glucose 266 H Calcium 9.0 Total Bilirubin 0.3 AST 66 H ALT 70 H Alkaline Phosphatase 60 Total Protein 6.6 Albumin 3.6 12/20/24 15:49 Sodium Potassium Chloride Carbon Dioxide Anion Gap BUN Creatinine Estim Creat Clear Calc Estimated GFR POC Glucose 177 H Random Glucose Calcium Total Bilirubin AST ALT Alkaline Phosphatase Total Protein Albumin Imaging Radiology Impressions: ITS Impressions Hip/Pelvis X-Ray 11/05/24 11:00 IMPRESSION: Unremarkable examination of the left hip. Electronically signed by: Sam Saini MD 11/05/2024 11:13 AM EDT RP KUB X-Ray 11/06/24 09:20 IMPRESSION: Large amount of stool throughout the colon. Electronically signed by: Sam Saini MD 11/06/2024 09:34 AM EDT RP Head CT 11/08/24 14:58 IMPRESSION: Left frontal soft tissue swelling. No acute intracranial abnormality. Electronically signed by: Sam Saini MD 11/08/2024 03:18 PM EDT RP Medications Medications Current Medications Acetaminophen (Acetaminophen 325 Mg Tablet) 650 mg PO Q6H PRN PRN Reason: Headache/Pain, Scale 1-10 Last Admin: 12/20/24 14:58 Dose: 650 mg Al Hydroxide/Mg Hydroxide (Magnesium Hydrox/Alum Hydrox 30 Ml Oral.Susp) 30 ml PO Q6H PRN PRN Reason: Heartburn/Nausea Last Admin: 12/17/24 06:56 Dose: 30 ml Albuterol Sulfate (Albuterol Sulfate (0.083%) 2.5 Mg/3 Ml Vial.Neb) 2.5 mg INHALE ONCE PRN PRN Reason: Shortness of Breath/Wheezing Last Admin: 12/16/24 07:11 Dose: 2.5 mg Albuterol Sulfate (Albuterol Sulfate 90 Mcg 8 Gm Inhaler) 4 puff INHALE Q4H PRN PRN Reason: Shortness Of Breath Or Wheezin Amlodipine Besylate (Amlodipine Besylate 2.5 Mg Tablet) 2.5 mg PO DAILY [facility]; Protocol Last Admin: 12/20/24 09:46 Dose: 2.5 mg Atorvastatin Calcium (Atorvastatin Calcium 20 Mg Tablet) 20 mg PO DAILY [facility] Last Admin: 12/20/24 09:44 Dose: 20 mg Bisacodyl (Bisacodyl 10 Mg Supp.Rect) 10 mg CA BEDTIME PRN PRN Reason: Constipation Last Admin: 11/04/24 20:37 Dose: 10 mg Bupropion HCl (Bupropion Hcl Xl 300 Mg Tab.Er.24h) 300 mg PO DAILY [facility] Last Admin: 12/20/24 09:45 Dose: 300 mg Buspirone HCl (Buspirone Hcl 10 Mg Tablet) 20 mg PO TID [facility] Last Admin: 12/20/24 14:55 Dose: 20 mg Calcium Carbonate (Calcium Carbonate 750 Mg Tab.Chew) 750 mg PO Q4H PRN PRN Reason: Heartburn Last Admin: 11/30/24 21:34 Dose: 750 mg Cefuroxime Axetil (Cefuroxime Axetil 500 Mg Tablet) 500 mg PO DAILY [facility] Stop: 12/23/24 08:59 Last Admin: 12/20/24 09:44 Dose: 500 mg Clonazepam (Clonazepam Odt 0.125 Mg Tab.Rapdis) 0.25 mg PO BEDTIME [facility] Last Admin: 12/19/24 20:45 Dose: 0.25 mg Clonazepam (Clonazepam Odt 0.125 Mg Tab.Rapdis) 0.25 mg PO DAILY PRN PRN Reason: severe anxiety Last Admin: 12/20/24 15:58 Dose: 0.25 mg Dicyclomine HCl (Dicyclomine Hcl 10 Mg Capsule) 10 mg PO Q4H PRN PRN Reason: abdominal cramping Last Admin: 12/17/24 13:55 Dose: 10 mg Docusate Sodium (Docusate Sodium 100 Mg Capsule) 100 mg PO BID [facility] Last Admin: 12/20/24 09:44 Dose: 100 mg Duloxetine HCl (Duloxetine Hcl 60 Mg Capsule.Dr) 60 mg PO DAILY [facility] Last Admin: 12/20/24 09:46 Dose: 60 mg Fluticasone/Vilanterol (Fluticasone/Vilanterol 100/25 Blst.W.Dev) 1 puff INHALE RDAILY [facility] Last Admin: 12/20/24 09:43 Dose: 1 puff Gabapentin (Gabapentin 100 Mg Capsule) 100 mg PO TID [facility] Last Admin: 12/20/24 14:56 Dose: 100 mg Glipizide (Glipizide Xl 2.5 Mg Tab.Er.24) 2.5 mg PO DAILY [facility] Last Admin: 12/20/24 09:44 Dose: 2.5 mg Guaifenesin (Guaifenesin La 600 Mg Tab.Er.12h) 1,200 mg PO BID PRN PRN Reason: Cough Last Admin: 12/16/24 14:35 Dose: 1,200 mg Insulin Human Lispro (Insulin Lispro 100 Unit/Ml 3 Ml Vial) 5 unit SUBCUT QIDACHS [facility]; Protocol Last Admin: 12/20/24 10:46 Dose: 5 unit Lisinopril (Lisinopril 2.5 Mg Tablet) 2.5 mg PO DAILY [facility]; Protocol Last Admin: 12/20/24 09:46 Dose: 2.5 mg Magnesium Hydroxide (Milk Of Magnesia 30 Ml Oral.Susp) 30 ml PO DAILY PRN PRN Reason: Constipation Last Admin: 11/04/24 16:49 Dose: 30 ml Metoclopramide HCl (Metoclopramide Hcl Oral Soln 10 Mg/10 Ml Solution) 5 mg PO TIDAC [facility] Mirtazapine (Mirtazapine 30 Mg Tablet) 30 mg PO BEDTIME [facility] Last Admin: 12/19/24 20:44 Dose: 30 mg Omeprazole (Omeprazole 20 Mg Capsule.Dr) 20 mg PO BID@0630,1630 [facility] Last Admin: 12/20/24 05:50 Dose: Not Given Ondansetron HCl (Ondansetron Odt 4 Mg Tab.Rapdis) 4 mg TRANSLINGU Q4H PRN PRN Reason: Nausea and Vomiting Last Admin: 12/17/24 11:23 Dose: 4 mg Polyethylene Glycol (Polyethylene Glycol 3350 17 Gm Powd.Pack) 17 gm PO BID [facility] Last Admin: 12/20/24 10:08 Dose: Not Given Pramipexole Dihydrochloride (Pramipexole Di-Hcl 0.125 Mg Tablet) 0.125 mg PO DAILY [facility] Last Admin: 12/20/24 09:45 Dose: 0.125 mg Pyridoxine HCl (Pyridoxine Hcl (Vitamin B6) 50 Mg Tablet) 50 mg PO DAILY [facility] Last Admin: 12/20/24 09:44 Dose: 50 mg Ropinirole HCl (Ropinirole Hcl 2 Mg Tablet) 2 mg PO DAILY@1700 [facility] Last Admin: 12/19/24 16:12 Dose: 2 mg Senna (Sennosides 8.6 Mg Tablet) 17.2 mg PO BEDTIME RICHARD On Hold: 11/06/24 16:27 Last Admin: 11/05/24 19:39 Dose: 17.2 mg Simethicone (Simethicone 80 Mg Tab.Chew) 80 mg PO QIDWMHS [facility] Last Admin: 12/20/24 11:12 Dose: 80 mg Sitagliptin Phosphate (Sitagliptin Phosphate 25 Mg Tablet) 25 mg PO DAILY [facility] On Hold: 12/16/24 08:20 Last Admin: 12/15/24 08:20 Dose: 25 mg Trazodone HCl (Trazodone Hcl 50 Mg Tablet) 50 mg PO BEDTIME MRX1 PRN PRN Reason: Insomnia Last Admin: 12/19/24 20:53 Dose: 50 mg Allergies Allergies Allergy/AdvReac Type Severity Reaction Status Date / Time ampicillin Allergy Rash Verified 10/20/24 19:28 morphine Allergy Rash Verified 10/20/24 19:28 Penicillins Allergy Rash Verified 10/20/24 19:28 pork derived (porcine) Allergy Vomiting Verified 11/10/24 17:49 Assessment & Plan Assessment & Plan (1) MDD (major depressive disorder), recurrent episode, moderate: Status: Acute Code(s): F33.1 - Major depressive disorder, recurrent, moderate (2) 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 Barreto is a 78 year-old woman with hx of MDD who was assessed by N at request of her son who called 911 after pt had reported suicidal ideation with plan to OD. In the ED, pt adamantly denied suicidal ideation but reports feeling increasingly more depressed due to involuntary, ongoing movement of lower extremities. She attributes her depressed mood and increase anxious mood to RLS. She has also been treated as tardive akathisia, note that she was previously prescribed abilify. It is noted that she may have iron deficiency due to normocytic anemia which can exacerbate RLS. It is unclear which medications for hyperkinetic movements of the legs are actually helpful and furthermore it is not easily to differentiate whether it is tardive akathisia or RLS. She has been on psychotropic medications that are known to cause akathisia such as abilify. She reports subjective sense of restlessness. Involuntary movement seems to be throughout the day. We will have to do trial of medications that target akathisia such as propanolol and ativan versus medications such as pramipexol for RLS (note that in RLS there is an initial relief with dopamine agonist but can make it worse over time). In addition, will try iron deficiency as it is an underlying cause and exacerbating factor in RLS. PLAN 11/14 continue tx. will monitor before making substantial changes every day. 11/15 continue tx. pt somatically preoccupied. 11/16: Continue current management and treatment plan. 11/17: continue current management and treatment plan. 11/18 start buspar 10mg po TID for SHEILA. continue all other meds. 11/19 increase buspar 20mg po TID 11/20 appears calmer, less somatically preoccupied. continue current medications. 11/21 sodium stable. continues to present as less dysphoric, calmer. reports of dizziness (VS not hotn nor orthostatic), ?vertigo, will try low dose of meclizine otherwise will consult hospitalist for further management. 8.2- pt more focused on gi issues- and anxiety/forgetfulness- continue to monitor somatic complaints- dc qid poc 11/25 will lowered ropinirole as it may increasing anxiety, noted that buspar was lowered, do not think this medication was causing fogginess as pt appeared much calmer since we added buspar. She was started on low dose clonazepam. 11/26 continue tx. received one time dose xanax, but reported feeling overly sedated (although did not appear sedated) 11/27 somatically p8/9: Continue current regimen and plansreoccupied, no change in medications. 11/29 continue tx. 11/30: Continue current regimen and plans 12/01: Continue current plans and regimen 12/02 increase buspar 20mg po TID. 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 start wellbutrin XL 150 daily tomorrow for depression. also c/o anxiety-provoking and nocturnally loud peer. schedule klonopin 0.25 QHS for insomnia. otherwise continue current mgmt. awaiting placement. 12/04: slept well last night, started wellbutrin this morning without incident. continue current mgmt. will be discharging to [facility]. 12/05: slept well. c/o anxiety at 3-330 in the afternoon. pt to ask for klonopin PRN at 2-230. trend anxiety, T/C DC of wellbutrin if anxiety seems reliably increased since starting it. dispo next week likely. 12/06: anxious. schedule klonopin 0.25 mg Qdaily at 1430 per pt request. otherwise continue current mgmt. 12/07: anxious and depressed. c/o insomnia. will give wellbutrin a few more days to see if insomnia subsides and mood improves. per staf, stable and uneventful presentation. 12/08: depressed. agreeable to increase wellbutrin to 300 mg as of tomorrow. otherwise continue current mgmt. sleeping well. 12/09: started wellbutrin 300 today. c/o URI Sx, start guaifenesin. otherwise continue current mgmt. 12/10: coughin much eves/NOC per staff. pt c/o not happy, cough, and poor sleep. continue mucinex and mental health Tx plan otherwise. 12/11/24: Patient appeared to slept for 8 hours, was medication compliant but refused the MiraLax. Denies side effects. She is observed watching TV in common area. Reported that she feel anxious and depressed. She is worry about when she is leaving as she is going to stay by herself. I am depressed . Self reports that she did not sleep well last night as roommate waking her up at night telling her that she saw dogs. She reports normal stomach pain. She would hope to see the GI doctor after discharge. She reported that she will be discharged on 12/17 but not sure the name of the facility or where it is located. Denies safety concerns, denies hallucinations. No coughing observed this morning. 12/12: c/o unremitting depression, saying she does not want to live like this. interested in ECT, educated re the procedure. obtain risk strat and EKG, discuss in rounds tomorrow morning. otherwise continue current mgmt. 12/13: continues to push for ECT. seen by hospitalist, no relative contraindications to the procedure. case d/w patient's daughter chantelle as well, who avers that pt has been in this state for a long time, it's only getting worse, and medications have not been helpful. johanna supports this trial on the wishes of her mother and MD's recommendation. ECT ordered, will get pt on the schedule as soon as possible. 12/14: Cough-productive, O2 sats are lower , CXR positive. Seen by hospitalist. Antibiotics initiated, R/O pneumonia 12/15: Pt unable to tolerate doxycycline. Hospitalist will change to Ceftin. 12/16: ECT held today due to januvia and respiratory virus. mood slightly improved. plan for weds ECT. 12/17: COVID and flu NEG. c/o nausea, exacerbation of chronic condition, h/o gastroparesis. holding januvia. start reglan for gastroparesis. continue current mgmt otherwise. NPO past MN for ECT tomorrow. 12/18: awaiting med clearance for ECT. planning for ECT monday. otherwise continue current mgmt. glucose noted to be elevated since holding januvia the past several days. 12/19 continue current medications. pt hopefull will have ECT tomorrow. NPO from midnight. 12/20 continue tx. Had ECT #1 no complications noted or reported. Reason for continued inpatient stay Substantial Risk for: inability to function Time Spent With Patient Time: Total time managing care of this patient today ____ minutes.
[2024-12-21 06:29] LABS: Glucose, Whole Blood 170 mg/dL (60-115)
[2024-12-21] MEDS: Metoclopramide HCl Oral Soln 10 MG/10 ML SOLUTION 5 MG PO ×3 (08:05→16:08)
[2024-12-21 08:38] VITALS: BP 114/64; PULSE 92; RESP 20; TEMP 36.6; O2SAT 95
[2024-12-21] MEDS: buPROPion HCl XL 300 MG TAB.ER.24H PO (08:40)
[2024-12-21] MEDS: Fluticasone/Vilanterol 100/25 BLST.W.DEV 1 PUFF INHALE (08:43)
--- NOTE | 2024-12-21 09:09 | HO.PSYCHPN ---
Subjective Subjective Date of Service: 12/21/24 Reason For Visit: SI with plan to OD on medications, increased anxie Interim History: Pt slept through the night. Tolerated first ECT treatment. Palmer a little out of it after but feeling didn't persist. She reports feeling less anxious and hopeful that ECT will work. She denies SI/HI. She is visible on the unit. Review of Systems Review of Systems GI SE of antibiotic Yes all other systems are reviewed and are negative Mental Status Exam Mental Status Exam Narrative: She is alert, pleasant and cooperative. Speech is normal. Moderate eye contact. Affect is appropriate and contained. anxiety and depression present. No acute signs of psychosis. Cognitively impaired. Judgment is impaired Patient Appearance: Fatigued Patient Orientation: Person and Situation Level of Consciousness: Alert Patient Behavior: Talkative and Fatigued Mood Description: Constricted and Depressed Affect Description: Constricted Patient Cognition Impaired: Yes Ability to Follow Directions: Fair Speech Pattern: Spontaneous Speech Memory Description: Remote Impaired Diagnostics Vital Signs (24Hr): Vital Signs - 24 hr 12/20/24 09:37 12/20/24 09:40 12/20/24 20:00 Temperature 97.3 F 97.3 F 97.7 F Pulse Rate 95 95 84 Respiratory Rate 20 20 18 Blood Pressure 130/81 130/81 100/58 L Pulse Oximetry 95 95 96 Oxygen Delivery Method Room Air Room Air 12/21/24 08:38 Temperature Pulse Rate 92 Respiratory Rate 20 Blood Pressure 114/64 Pulse Oximetry 95 Oxygen Delivery Method Room Air BMI result Body Mass Index 22.5 Labs 11/02/24 20:14 12/20/24 08:43 Labs: Laboratory Results - last 48 hr 12/19/24 12/19/24 12/19/24 10:21 16:02 20:57 Sodium Potassium Chloride Carbon Dioxide Anion Gap BUN Creatinine Estim Creat Clear Calc Estimated GFR POC Glucose 408 H* 115 101 Random Glucose Calcium Total Bilirubin AST ALT Alkaline Phosphatase Total Protein Albumin 12/20/24 12/20/24 12/20/24 06:20 08:43 10:41 Sodium 140 Potassium 5.2 H Chloride 107 Carbon Dioxide 25 Anion Gap 13 BUN 27 H Creatinine 1.08 Estim Creat Clear Calc 28.6 Estimated GFR 49 POC Glucose 181 H 223 H Random Glucose 266 H Calcium 9.0 Total Bilirubin 0.3 AST 66 H ALT 70 H Alkaline Phosphatase 60 Total Protein 6.6 Albumin 3.6 12/20/24 12/21/24 15:49 06:20 Sodium Potassium Chloride Carbon Dioxide Anion Gap BUN Creatinine Estim Creat Clear Calc Estimated GFR POC Glucose 177 H 170 H Random Glucose Calcium Total Bilirubin AST ALT Alkaline Phosphatase Total Protein Albumin Imaging Radiology Impressions: ITS Impressions Hip/Pelvis X-Ray 11/05/24 11:00 IMPRESSION: Unremarkable examination of the left hip. Electronically signed by: Sam Saini MD 11/05/2024 11:13 AM EDT RP KUB X-Ray 11/06/24 09:20 IMPRESSION: Large amount of stool throughout the colon. Electronically signed by: Sam Saini MD 11/06/2024 09:34 AM EDT RP Head CT 11/08/24 14:58 IMPRESSION: Left frontal soft tissue swelling. No acute intracranial abnormality. Electronically signed by: Sam Saini MD 11/08/2024 03:18 PM EDT RP Medications Medications Current Medications Acetaminophen (Acetaminophen 325 Mg Tablet) 650 mg PO Q6H PRN PRN Reason: Headache/Pain, Scale 1-10 Last Admin: 12/20/24 14:58 Dose: 650 mg Al Hydroxide/Mg Hydroxide (Magnesium Hydrox/Alum Hydrox 30 Ml Oral.Susp) 30 ml PO Q6H PRN PRN Reason: Heartburn/Nausea Last Admin: 12/17/24 06:56 Dose: 30 ml Albuterol Sulfate (Albuterol Sulfate (0.083%) 2.5 Mg/3 Ml Vial.Neb) 2.5 mg INHALE ONCE PRN PRN Reason: Shortness of Breath/Wheezing Last Admin: 12/16/24 07:11 Dose: 2.5 mg Albuterol Sulfate (Albuterol Sulfate 90 Mcg 8 Gm Inhaler) 4 puff INHALE Q4H PRN PRN Reason: Shortness Of Breath Or Wheezin Amlodipine Besylate (Amlodipine Besylate 2.5 Mg Tablet) 2.5 mg PO DAILY [facility]ICHARD; Protocol Last Admin: 12/21/24 08:41 Dose: 2.5 mg Atorvastatin Calcium (Atorvastatin Calcium 20 Mg Tablet) 20 mg PO DAILY [facility] Last Admin: 12/21/24 08:42 Dose: 20 mg Bisacodyl (Bisacodyl 10 Mg Supp.Rect) 10 mg AK BEDTIME PRN PRN Reason: Constipation Last Admin: 11/04/24 20:37 Dose: 10 mg Bupropion HCl (Bupropion Hcl Xl 300 Mg Tab.Er.24h) 300 mg PO DAILY [facility] Last Admin: 12/21/24 08:40 Dose: 300 mg Buspirone HCl (Buspirone Hcl 10 Mg Tablet) 20 mg PO TID [facility] Last Admin: 12/21/24 08:41 Dose: 20 mg Calcium Carbonate (Calcium Carbonate 750 Mg Tab.Chew) 750 mg PO Q4H PRN PRN Reason: Heartburn Last Admin: 11/30/24 21:34 Dose: 750 mg Cefuroxime Axetil (Cefuroxime Axetil 500 Mg Tablet) 500 mg PO DAILY [facility] Stop: 12/23/24 08:59 Last Admin: 12/21/24 08:41 Dose: 500 mg Clonazepam (Clonazepam Odt 0.125 Mg Tab.Rapdis) 0.25 mg PO BEDTIME [facility] Last Admin: 12/20/24 20:33 Dose: 0.25 mg Clonazepam (Clonazepam Odt 0.125 Mg Tab.Rapdis) 0.25 mg PO DAILY PRN PRN Reason: severe anxiety Last Admin: 12/20/24 15:58 Dose: 0.25 mg Dicyclomine HCl (Dicyclomine Hcl 10 Mg Capsule) 10 mg PO Q4H PRN PRN Reason: abdominal cramping Last Admin: 12/17/24 13:55 Dose: 10 mg Docusate Sodium (Docusate Sodium 100 Mg Capsule) 100 mg PO BID [facility] Last Admin: 12/21/24 08:41 Dose: 100 mg Duloxetine HCl (Duloxetine Hcl 60 Mg Capsule.Dr) 60 mg PO DAILY [facility] Last Admin: 12/21/24 08:40 Dose: 60 mg Fluticasone/Vilanterol (Fluticasone/Vilanterol 100/25 Blst.W.Dev) 1 puff INHALE RDAILY [facility] Last Admin: 12/21/24 08:43 Dose: 1 puff Gabapentin (Gabapentin 100 Mg Capsule) 100 mg PO TID [facility] Last Admin: 12/21/24 08:40 Dose: 100 mg Glipizide (Glipizide Xl 2.5 Mg Tab.Er.24) 2.5 mg PO DAILY [facility] Last Admin: 12/21/24 08:05 Dose: 2.5 mg Guaifenesin (Guaifenesin La 600 Mg Tab.Er.12h) 1,200 mg PO BID PRN PRN Reason: Cough Last Admin: 12/16/24 14:35 Dose: 1,200 mg Insulin Human Lispro (Insulin Lispro 100 Unit/Ml 3 Ml Vial) 5 unit SUBCUT QIDACHS [facility]; Protocol Last Admin: 12/21/24 08:04 Dose: 5 unit Lisinopril (Lisinopril 2.5 Mg Tablet) 2.5 mg PO DAILY [facility]; Protocol Last Admin: 12/21/24 08:40 Dose: 2.5 mg Magnesium Hydroxide (Milk Of Magnesia 30 Ml Oral.Susp) 30 ml PO DAILY PRN PRN Reason: Constipation Last Admin: 11/04/24 16:49 Dose: 30 ml Metoclopramide HCl (Metoclopramide Hcl Oral Soln 10 Mg/10 Ml Solution) 5 mg PO TIDAC [facility] Last Admin: 12/21/24 08:05 Dose: 5 mg Mirtazapine (Mirtazapine 30 Mg Tablet) 30 mg PO BEDTIME [facility] Last Admin: 12/20/24 20:33 Dose: 30 mg Omeprazole (Omeprazole 20 Mg Capsule.Dr) 20 mg PO BID@0630,1630 [facility] Last Admin: 12/21/24 06:18 Dose: 20 mg Ondansetron HCl (Ondansetron Odt 4 Mg Tab.Rapdis) 4 mg TRANSLINGU Q4H PRN PRN Reason: Nausea and Vomiting Last Admin: 12/17/24 11:23 Dose: 4 mg Polyethylene Glycol (Polyethylene Glycol 3350 17 Gm Powd.Pack) 17 gm PO BID [facility] Last Admin: 12/20/24 20:34 Dose: Not Given Pramipexole Dihydrochloride (Pramipexole Di-Hcl 0.125 Mg Tablet) 0.125 mg PO DAILY [facility] Last Admin: 12/21/24 08:40 Dose: 0.125 mg Pyridoxine HCl (Pyridoxine Hcl (Vitamin B6) 50 Mg Tablet) 50 mg PO DAILY [facility] Last Admin: 12/21/24 08:41 Dose: 50 mg Ropinirole HCl (Ropinirole Hcl 2 Mg Tablet) 2 mg PO DAILY@1700 [facility] Last Admin: 12/20/24 16:58 Dose: 2 mg Senna (Sennosides 8.6 Mg Tablet) 17.2 mg PO BEDTIME [facility] On Hold: 11/06/24 16:27 Last Admin: 11/05/24 19:39 Dose: 17.2 mg Simethicone (Simethicone 80 Mg Tab.Chew) 80 mg PO QIDWMHS [facility] Last Admin: 12/21/24 08:43 Dose: 80 mg Sitagliptin Phosphate (Sitagliptin Phosphate 25 Mg Tablet) 25 mg PO DAILY [facility] On Hold: 12/16/24 08:20 Last Admin: 12/15/24 08:20 Dose: 25 mg Trazodone HCl (Trazodone Hcl 50 Mg Tablet) 50 mg PO BEDTIME MRX1 PRN PRN Reason: Insomnia Last Admin: 12/19/24 20:53 Dose: 50 mg Allergies Allergies Allergy/AdvReac Type Severity Reaction Status Date / Time ampicillin Allergy Rash Verified 10/20/24 19:28 morphine Allergy Rash Verified 10/20/24 19:28 Penicillins Allergy Rash Verified 10/20/24 19:28 pork derived (porcine) Allergy Vomiting Verified 11/10/24 17:49 Assessment & Plan Assessment & Plan (1) MDD (major depressive disorder), recurrent episode, moderate: Status: Acute Code(s): F33.1 - Major depressive disorder, recurrent, moderate (2) 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 Barreto is a 78 year-old woman with hx of MDD who was assessed by N at request of her son who called 911 after pt had reported suicidal ideation with plan to OD. In the ED, pt adamantly denied suicidal ideation but reports feeling increasingly more depressed due to involuntary, ongoing movement of lower extremities. She attributes her depressed mood and increase anxious mood to RLS. She has also been treated as tardive akathisia, note that she was previously prescribed abilify. It is noted that she may have iron deficiency due to normocytic anemia which can exacerbate RLS. It is unclear which medications for hyperkinetic movements of the legs are actually helpful and furthermore it is not easily to differentiate whether it is tardive akathisia or RLS. She has been on psychotropic medications that are known to cause akathisia such as abilify. She reports subjective sense of restlessness. Involuntary movement seems to be throughout the day. We will have to do trial of medications that target akathisia such as propanolol and ativan versus medications such as pramipexol for RLS (note that in RLS there is an initial relief with dopamine agonist but can make it worse over time). In addition, will try iron deficiency as it is an underlying cause and exacerbating factor in RLS. PLAN 11/14 continue tx. will monitor before making substantial changes every day. 11/15 continue tx. pt somatically preoccupied. 11/16: Continue current management and treatment plan. 11/17: continue current management and treatment plan. 11/18 start buspar 10mg po TID for SHEILA. continue all other meds. 11/19 increase buspar 20mg po TID 11/20 appears calmer, less somatically preoccupied. continue current medications. 11/21 sodium stable. continues to present as less dysphoric, calmer. reports of dizziness (VS not hotn nor orthostatic), ?vertigo, will try low dose of meclizine otherwise will consult hospitalist for further management. 8.2- pt more focused on gi issues- and anxiety/forgetfulness- continue to monitor somatic complaints- dc qid poc 11/25 will lowered ropinirole as it may increasing anxiety, noted that buspar was lowered, do not think this medication was causing fogginess as pt appeared much calmer since we added buspar. She was started on low dose clonazepam. 11/26 continue tx. received one time dose xanax, but reported feeling overly sedated (although did not appear sedated) 11/27 somatically p8/9: Continue current regimen and plansreoccupied, no change in medications. 11/29 continue tx. 11/30: Continue current regimen and plans 12/01: Continue current plans and regimen 12/02 increase buspar 20mg po TID. 12/03: reports depression not improving, c/o feeling low energy and motivation, saying she needs a pickle sorter. start wellbutrin XL 150 daily tomorrow for depression. also c/o anxiety-provoking and nocturnally loud peer. schedule klonopin 0.25 QHS for insomnia. otherwise continue current mgmt. awaiting placement. 12/04: slept well last night, started wellbutrin this morning without incident. continue current mgmt. will be discharging to [facility]. 12/05: slept well. c/o anxiety at 3-330 in the afternoon. pt to ask for klonopin PRN at 2-230. trend anxiety, T/C DC of wellbutrin if anxiety seems reliably increased since starting it. dispo next week likely. 12/06: anxious. schedule klonopin 0.25 mg Qdaily at 1430 per pt request. otherwise continue current mgmt. 12/07: anxious and depressed. c/o insomnia. will give wellbutrin a few more days to see if insomnia subsides and mood improves. per staf, stable and uneventful presentation. 12/08: depressed. agreeable to increase wellbutrin to 300 mg as of tomorrow. otherwise continue current mgmt. sleeping well. 12/09: started wellbutrin 300 today. c/o URI Sx, start guaifenesin. otherwise continue current mgmt. 12/10: coughin much eves/NOC per staff. pt c/o not happy, cough, and poor sleep. continue mucinex and mental health Tx plan otherwise. 12/11/24: Patient appeared to slept for 8 hours, was medication compliant but refused the MiraLax. Denies side effects. She is observed watching TV in common area. Reported that she feel anxious and depressed. She is worry about when she is leaving as she is going to stay by herself. I am depressed . Self reports that she did not sleep well last night as roommate waking her up at night telling her that she saw dogs. She reports normal stomach pain. She would hope to see the GI doctor after discharge. She reported that she will be discharged on 12/17 but not sure the name of the facility or where it is located. Denies safety concerns, denies hallucinations. No coughing observed this morning. 12/12: c/o unremitting depression, saying she does not want to live like this. interested in ECT, educated re the procedure. obtain risk strat and EKG, discuss in rounds tomorrow morning. otherwise continue current mgmt. 12/13: continues to push for ECT. seen by hospitalist, no relative contraindications to the procedure. case d/w patient's daughter chantelle as well, who avers that pt has been in this state for a long time, it's only getting worse, and medications have not been helpful. johanna supports this trial on the wishes of her mother and MD's recommendation. ECT ordered, will get pt on the schedule as soon as possible. 12/14: Cough-productive, O2 sats are lower , CXR positive. Seen by hospitalist. Antibiotics initiated, R/O pneumonia 12/15: Pt unable to tolerate doxycycline. Hospitalist will change to Ceftin. 12/16: ECT held today due to januvia and respiratory virus. mood slightly improved. plan for ECT. 12/17: COVID and flu NEG. c/o nausea, exacerbation of chronic condition, h/o gastroparesis. holding januvia. start reglan for gastroparesis. continue current mgmt otherwise. NPO past MN for ECT tomorrow. 12/18: awaiting med clearance for ECT. planning for ECT monday. otherwise continue current mgmt. glucose noted to be elevated since holding januvia the past several days. 12/19 continue current medications. pt hopefull will have ECT tomorrow. NPO from midnight. 12/20 continue tx. Had ECT #1 no complications noted or reported. 12/21:Continue ECT. Reason for continued inpatient stay Substantial Risk for: inability to function, rapid decompensation and med/psych decompensation Time Spent With Patient Time: Total time managing care of this patient today ____ minutes.
[2024-12-21 11:57] LABS: Glucose, Whole Blood 201 mg/dL (60-115)
[2024-12-21] MEDS: clonazePAM ODT 0.125 MG TAB.RAPDIS 0.25 MG PO ×2 (16:06→20:06)
[2024-12-21 16:16] LABS: Glucose, Whole Blood 141 mg/dL (60-115)
[2024-12-21 20:00] VITALS: BP 121/76; PULSE 86; RESP 17; TEMP 36.4; O2SAT 97
[2024-12-21 21:02] LABS: Glucose, Whole Blood 270 mg/dL (60-115)
[2024-12-22 06:45] LABS: Glucose, Whole Blood 217 mg/dL (60-115)
[2024-12-22 08:18] VITALS: BP 160/83; PULSE 94; RESP 14; TEMP 36.2; O2SAT 99
[2024-12-22] MEDS: Metoclopramide HCl Oral Soln 10 MG/10 ML SOLUTION 5 MG PO ×3 (08:20→16:57)
[2024-12-22] MEDS: buPROPion HCl XL 300 MG TAB.ER.24H PO (08:25)
[2024-12-22] MEDS: Fluticasone/Vilanterol 100/25 BLST.W.DEV 1 PUFF INHALE (08:34)
--- NOTE | 2024-12-22 08:44 | HO.PSYCHPN ---
Subjective Subjective Date of Service: 12/22/24 Reason For Visit: SI with plan to OD on medications, increased anxie Interim History: Tolerated first ECT treatment. She was anxious earlier today. She was offered a Clonazepam but she said What if I feel anxious again I can't take anything. She is hopeful about ECT working. She denies SI/HI. She is visible on the unit. Appropriate. Can be somatically preoccupied. Review of Systems Review of Systems GI SE of antibiotic Yes all other systems are reviewed and are negative Mental Status Exam Mental Status Exam Narrative: She is alert, pleasant and cooperative. Speech is normal. Moderate eye contact. Affect is appropriate and contained. anxiety and depression present. No acute signs of psychosis. Cognitively impaired. Judgment is impaired Patient Appearance: Fatigued Patient Orientation: Person and Situation Level of Consciousness: Alert Patient Behavior: Talkative and Fatigued Mood Description: Constricted and Depressed Affect Description: Constricted Patient Cognition Impaired: Yes Ability to Follow Directions: Fair Speech Pattern: Spontaneous Speech Memory Description: Remote Impaired Diagnostics Vital Signs (24Hr): Vital Signs - 24 hr 12/21/24 20:00 12/22/24 08:18 Temperature 97.6 F 97.2 F Pulse Rate 86 94 Respiratory Rate 17 14 Blood Pressure 121/76 160/83 H Pulse Oximetry 97 99 Oxygen Delivery Method Room Air Room Air BMI result Body Mass Index 22.5 Labs 11/02/24 20:14 12/20/24 08:43 Labs: Laboratory Results - last 48 hr 12/20/24 12/20/24 12/20/24 06:20 08:43 10:41 Sodium 140 Potassium 5.2 H Chloride 107 Carbon Dioxide 25 Anion Gap 13 BUN 27 H Creatinine 1.08 Estim Creat Clear Calc 28.6 Estimated GFR 49 POC Glucose 181 H 223 H Random Glucose 266 H Calcium 9.0 Total Bilirubin 0.3 AST 66 H ALT 70 H Alkaline Phosphatase 60 Total Protein 6.6 Albumin 3.6 12/20/24 12/21/24 12/21/24 15:49 06:20 11:49 Sodium Potassium Chloride Carbon Dioxide Anion Gap BUN Creatinine Estim Creat Clear Calc Estimated GFR POC Glucose 177 H 170 H 201 H Random Glucose Calcium Total Bilirubin AST ALT Alkaline Phosphatase Total Protein Albumin 12/21/24 12/21/24 12/22/24 16:10 20:59 06:39 Sodium Potassium Chloride Carbon Dioxide Anion Gap BUN Creatinine Estim Creat Clear Calc Estimated GFR POC Glucose 141 H 270 H 217 H Random Glucose Calcium Total Bilirubin AST ALT Alkaline Phosphatase Total Protein Albumin Imaging Radiology Impressions: ITS Impressions Hip/Pelvis X-Ray 11/05/24 11:00 IMPRESSION: Unremarkable examination of the left hip. Electronically signed by: Sam Saini MD 11/05/2024 11:13 AM EDT RP KUB X-Ray 11/06/24 09:20 IMPRESSION: Large amount of stool throughout the colon. Electronically signed by: Sam Saini MD 11/06/2024 09:34 AM EDT RP Head CT 11/08/24 14:58 IMPRESSION: Left frontal soft tissue swelling. No acute intracranial abnormality. Electronically signed by: Sam Saini MD 11/08/2024 03:18 PM EDT RP Medications Medications Current Medications Acetaminophen (Acetaminophen 325 Mg Tablet) 650 mg PO Q6H PRN PRN Reason: Headache/Pain, Scale 1-10 Last Admin: 12/20/24 14:58 Dose: 650 mg Al Hydroxide/Mg Hydroxide (Magnesium Hydrox/Alum Hydrox 30 Ml Oral.Susp) 30 ml PO Q6H PRN PRN Reason: Heartburn/Nausea Last Admin: 12/17/24 06:56 Dose: 30 ml Albuterol Sulfate (Albuterol Sulfate (0.083%) 2.5 Mg/3 Ml Vial.Neb) 2.5 mg INHALE ONCE PRN PRN Reason: Shortness of Breath/Wheezing Last Admin: 12/16/24 07:11 Dose: 2.5 mg Albuterol Sulfate (Albuterol Sulfate 90 Mcg 8 Gm Inhaler) 4 puff INHALE Q4H PRN PRN Reason: Shortness Of Breath Or Wheezin Amlodipine Besylate (Amlodipine Besylate 2.5 Mg Tablet) 2.5 mg PO DAILY [facility]; Protocol Last Admin: 12/22/24 08:27 Dose: 2.5 mg Atorvastatin Calcium (Atorvastatin Calcium 20 Mg Tablet) 20 mg PO DAILY [facility] Last Admin: 12/22/24 08:26 Dose: 20 mg Bisacodyl (Bisacodyl 10 Mg Supp.Rect) 10 mg DC BEDTIME PRN PRN Reason: Constipation Last Admin: 11/04/24 20:37 Dose: 10 mg Bupropion HCl (Bupropion Hcl Xl 300 Mg Tab.Er.24h) 300 mg PO DAILY [facility] Last Admin: 12/22/24 08:25 Dose: 300 mg Buspirone HCl (Buspirone Hcl 10 Mg Tablet) 20 mg PO TID [facility] Last Admin: 12/22/24 08:24 Dose: 20 mg Calcium Carbonate (Calcium Carbonate 750 Mg Tab.Chew) 750 mg PO Q4H PRN PRN Reason: Heartburn Last Admin: 11/30/24 21:34 Dose: 750 mg Cefuroxime Axetil (Cefuroxime Axetil 500 Mg Tablet) 500 mg PO DAILY [facility] Stop: 12/23/24 08:59 Last Admin: 12/21/24 08:41 Dose: 500 mg Clonazepam (Clonazepam Odt 0.125 Mg Tab.Rapdis) 0.25 mg PO BEDTIME [facility] Last Admin: 12/21/24 20:06 Dose: 0.25 mg Clonazepam (Clonazepam Odt 0.125 Mg Tab.Rapdis) 0.25 mg PO DAILY PRN PRN Reason: severe anxiety Last Admin: 12/21/24 16:06 Dose: 0.25 mg Dicyclomine HCl (Dicyclomine Hcl 10 Mg Capsule) 10 mg PO Q4H PRN PRN Reason: abdominal cramping Last Admin: 12/17/24 13:55 Dose: 10 mg Docusate Sodium (Docusate Sodium 100 Mg Capsule) 100 mg PO BID [facility] Last Admin: 12/22/24 08:25 Dose: 100 mg Duloxetine HCl (Duloxetine Hcl 60 Mg Capsule.Dr) 60 mg PO DAILY [facility] Last Admin: 12/22/24 08:25 Dose: 60 mg Fluticasone/Vilanterol (Fluticasone/Vilanterol 100/25 Blst.W.Dev) 1 puff INHALE RDAILY [facility] Last Admin: 12/22/24 08:34 Dose: 1 puff Gabapentin (Gabapentin 100 Mg Capsule) 100 mg PO TID [facility] Last Admin: 12/22/24 08:26 Dose: 100 mg Glipizide (Glipizide Xl 2.5 Mg Tab.Er.24) 2.5 mg PO DAILY [facility] Last Admin: 12/22/24 08:25 Dose: 2.5 mg Guaifenesin (Guaifenesin La 600 Mg Tab.Er.12h) 1,200 mg PO BID PRN PRN Reason: Cough Last Admin: 12/16/24 14:35 Dose: 1,200 mg Insulin Human Lispro (Insulin Lispro 100 Unit/Ml 3 Ml Vial) 5 unit SUBCUT QIDACHS [facility]; Protocol Last Admin: 12/22/24 08:27 Dose: 5 unit Lisinopril (Lisinopril 2.5 Mg Tablet) 2.5 mg PO DAILY [facility]; Protocol Last Admin: 12/22/24 08:26 Dose: 2.5 mg Magnesium Hydroxide (Milk Of Magnesia 30 Ml Oral.Susp) 30 ml PO DAILY PRN PRN Reason: Constipation Last Admin: 11/04/24 16:49 Dose: 30 ml Metoclopramide HCl (Metoclopramide Hcl Oral Soln 10 Mg/10 Ml Solution) 5 mg PO TIDAC [facility] Last Admin: 12/22/24 08:20 Dose: 5 mg Mirtazapine (Mirtazapine 30 Mg Tablet) 30 mg PO BEDTIME [facility] Last Admin: 12/21/24 20:07 Dose: 30 mg Omeprazole (Omeprazole 20 Mg Capsule.Dr) 20 mg PO BID@0630,1630 [facility] Last Admin: 12/22/24 06:35 Dose: 20 mg Ondansetron HCl (Ondansetron Odt 4 Mg Tab.Rapdis) 4 mg TRANSLINGU Q4H PRN PRN Reason: Nausea and Vomiting Last Admin: 12/17/24 11:23 Dose: 4 mg Polyethylene Glycol (Polyethylene Glycol 3350 17 Gm Powd.Pack) 17 gm PO BID [facility] Last Admin: 12/22/24 08:28 Dose: Not Given Pramipexole Dihydrochloride (Pramipexole Di-Hcl 0.125 Mg Tablet) 0.125 mg PO DAILY [facility] Last Admin: 12/22/24 08:25 Dose: 0.125 mg Pyridoxine HCl (Pyridoxine Hcl (Vitamin B6) 50 Mg Tablet) 50 mg PO DAILY [facility] Last Admin: 12/22/24 08:26 Dose: 50 mg Ropinirole HCl (Ropinirole Hcl 2 Mg Tablet) 2 mg PO DAILY@1700 [facility] Last Admin: 12/21/24 17:52 Dose: 2 mg Senna (Sennosides 8.6 Mg Tablet) 17.2 mg PO BEDTIME [facility] On Hold: 11/06/24 16:27 Last Admin: 11/05/24 19:39 Dose: 17.2 mg Simethicone (Simethicone 80 Mg Tab.Chew) 80 mg PO QIDWMHS [facility] Last Admin: 12/22/24 08:27 Dose: 80 mg Sitagliptin Phosphate (Sitagliptin Phosphate 25 Mg Tablet) 25 mg PO DAILY [facility] On Hold: 12/16/24 08:20 Last Admin: 12/15/24 08:20 Dose: 25 mg Trazodone HCl (Trazodone Hcl 50 Mg Tablet) 50 mg PO BEDTIME MRX1 PRN PRN Reason: Insomnia Last Admin: 12/19/24 20:53 Dose: 50 mg Allergies Allergies Allergy/AdvReac Type Severity Reaction Status Date / Time ampicillin Allergy Rash Verified 10/20/24 19:28 morphine Allergy Rash Verified 10/20/24 19:28 Penicillins Allergy Rash Verified 10/20/24 19:28 pork derived (porcine) Allergy Vomiting Verified 11/10/24 17:49 Assessment & Plan Assessment & Plan (1) MDD (major depressive disorder), recurrent episode, moderate: Status: Acute Code(s): F33.1 - Major depressive disorder, recurrent, moderate (2) 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 Barreto is a 78 year-old woman with hx of MDD who was assessed by N at request of her son who called 911 after pt had reported suicidal ideation with plan to OD. In the ED, pt adamantly denied suicidal ideation but reports feeling increasingly more depressed due to involuntary, ongoing movement of lower extremities. She attributes her depressed mood and increase anxious mood to RLS. She has also been treated as tardive akathisia, note that she was previously prescribed abilify. It is noted that she may have iron deficiency due to normocytic anemia which can exacerbate RLS. It is unclear which medications for hyperkinetic movements of the legs are actually helpful and furthermore it is not easily to differentiate whether it is tardive akathisia or RLS. She has been on psychotropic medications that are known to cause akathisia such as abilify. She reports subjective sense of restlessness. Involuntary movement seems to be throughout the day. We will have to do trial of medications that target akathisia such as propanolol and ativan versus medications such as pramipexol for RLS (note that in RLS there is an initial relief with dopamine agonist but can make it worse over time). In addition, will try iron deficiency as it is an underlying cause and exacerbating factor in RLS. PLAN 11/14 continue tx. will monitor before making substantial changes every day. 11/15 continue tx. pt somatically preoccupied. 11/16: Continue current management and treatment plan. 11/17: continue current management and treatment plan. 11/18 start buspar 10mg po TID for SHEILA. continue all other meds. 11/19 increase buspar 20mg po TID 11/20 appears calmer, less somatically preoccupied. continue current medications. 11/21 sodium stable. continues to present as less dysphoric, calmer. reports of dizziness (VS not hotn nor orthostatic), ?vertigo, will try low dose of meclizine otherwise will consult hospitalist for further management. 8.2- pt more focused on gi issues- and anxiety/forgetfulness- continue to monitor somatic complaints- dc qid poc 11/25 will lowered ropinirole as it may increasing anxiety, noted that buspar was lowered, do not think this medication was causing fogginess as pt appeared much calmer since we added buspar. She was started on low dose clonazepam. 11/26 continue tx. received one time dose xanax, but reported feeling overly sedated (although did not appear sedated) 11/27 somatically p8/9: Continue current regimen and plansreoccupied, no change in medications. 11/29 continue tx. 11/30: Continue current regimen and plans 12/01: Continue current plans and regimen 12/02 increase buspar 20mg po TID. 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 start wellbutrin XL 150 daily tomorrow for depression. also c/o anxiety-provoking and nocturnally loud peer. schedule klonopin 0.25 QHS for insomnia. otherwise continue current mgmt. awaiting placement. 8/13: slept well last night, started wellbutrin this morning without incident. continue current mgmt. will be discharging to [facility]. 12/05: slept well. c/o anxiety at 3-330 in the afternoon. pt to ask for klonopin PRN at 2-230. trend anxiety, T/C DC of wellbutrin if anxiety seems reliably increased since starting it. dispo next week likely. 12/06: anxious. schedule klonopin 0.25 mg Qdaily at 1430 per pt request. otherwise continue current mgmt. 12/07: anxious and depressed. c/o insomnia. will give wellbutrin a few more days to see if insomnia subsides and mood improves. per staf, stable and uneventful presentation. 12/08: depressed. agreeable to increase wellbutrin to 300 mg as of tomorrow. otherwise continue current mgmt. sleeping well. 12/09: started wellbutrin 300 today. c/o URI Sx, start guaifenesin. otherwise continue current mgmt. 12/10: coughin much eves/NOC per staff. pt c/o not happy, cough, and poor sleep. continue mucinex and mental health Tx plan otherwise. 12/11/24: Patient appeared to slept for 8 hours, was medication compliant but refused the MiraLax. Denies side effects. She is observed watching TV in common area. Reported that she feel anxious and depressed. She is worry about when she is leaving as she is going to stay by herself. I am depressed . Self reports that she did not sleep well last night as roommate waking her up at night telling her that she saw dogs. She reports normal stomach pain. She would hope to see the GI doctor after discharge. She reported that she will be discharged on 12/17 but not sure the name of the facility or where it is located. Denies safety concerns, denies hallucinations. No coughing observed this morning. 12/12: c/o unremitting depression, saying she does not want to live like this. interested in ECT, educated re the procedure. obtain risk strat and EKG, discuss in rounds tomorrow morning. otherwise continue current mgmt. 12/13: continues to push for ECT. seen by hospitalist, no relative contraindications to the procedure. case d/w patient's daughter chantelle as well, who avers that pt has been in this state for a long time, it's only getting worse, and medications have not been helpful. johanna supports this trial on the wishes of her mother and MD's recommendation. ECT ordered, will get pt on the schedule as soon as possible. 12/14: Cough-productive, O2 sats are lower , CXR positive. Seen by hospitalist. Antibiotics initiated, R/O pneumonia 12/15: Pt unable to tolerate doxycycline. Hospitalist will change to Ceftin. 12/16: ECT held today due to januvia and respiratory virus. mood slightly improved. plan for ECT. 12/17: COVID and flu NEG. c/o nausea, exacerbation of chronic condition, h/o gastroparesis. holding januvia. start reglan for gastroparesis. continue current mgmt otherwise. NPO past MN for ECT tomorrow. 12/18: awaiting med clearance for ECT. planning for ECT monday. otherwise continue current mgmt. glucose noted to be elevated since holding januvia the past several days. 12/19 continue current medications. pt hopefull will have ECT tomorrow. NPO from midnight. 12/20 continue tx. Had ECT #1 no complications noted or reported. 12/21:Continue ECT. 12/22: Increase Klonopin PRN to BID. Otherwise continue current management and treatment plan. Reason for continued inpatient stay Substantial Risk for: inability to function and rapid decompensation Time Spent With Patient Time: Total time managing care of this patient today ____ minutes.
[2024-12-22 11:40] LABS: Glucose, Whole Blood 134 mg/dL (60-115)
[2024-12-22] MEDS: clonazePAM ODT 0.125 MG TAB.RAPDIS 0.25 MG PO ×2 (12:01→20:12)
[2024-12-22 16:36] LABS: Glucose, Whole Blood 200 mg/dL (60-115)
[2024-12-22 20:00] VITALS: BP 134/83; PULSE 90; RESP 16; TEMP 36.3; O2SAT 97
[2024-12-22 20:08] LABS: Glucose, Whole Blood 76 mg/dL (60-115)
[2024-12-23 06:34] LABS: Glucose, Whole Blood 237 mg/dL (60-115)
[2024-12-23 08:00] VITALS: BP 136/75; PULSE 92; RESP 15; TEMP 36.1; O2SAT 95
[2024-12-23 08:17] VITALS: BP 136/75
[2024-12-23] MEDS: buPROPion HCl XL 300 MG TAB.ER.24H PO (08:17)
[2024-12-23] MEDS: Fluticasone/Vilanterol 100/25 BLST.W.DEV 1 PUFF INHALE (08:17)
[2024-12-23 08:18] VITALS: BP 136/75
[2024-12-23] MEDS: Metoclopramide HCl Oral Soln 10 MG/10 ML SOLUTION 5 MG PO ×3 (08:19→16:49)
[2024-12-23 11:37] LABS: Glucose, Whole Blood 114 mg/dL (60-115)
[2024-12-23] MEDS: clonazePAM ODT 0.125 MG TAB.RAPDIS 0.25 MG PO ×3 (11:40→20:21)
--- NOTE | 2024-12-23 12:03 | HO.PSYCHPN ---
Subjective Subjective Date of Service: 12/23/24 Reason For Visit: SI with plan to OD on medications, increased anxie Interim History: Feeling restless today. I feel I can't sit still . Not sure why. Anxious. Says Paulo didn't help. Mood is stable. Eating and sleeping well. No SI/HI/AVH. She remains hopeful about ECT working. She is visible on the unit. Appropriate. Can be somatically preoccupied. Review of Systems Review of Systems GI SE of antibiotic Yes all other systems are reviewed and are negative Mental Status Exam Mental Status Exam Narrative: She is alert, pleasant and cooperative. Speech is normal. Moderate eye contact. Affect is appropriate and contained. anxiety and depression present. No acute signs of psychosis. Cognitively impaired. Judgment is impaired Patient Appearance: Fatigued Patient Orientation: Person and Situation Level of Consciousness: Alert Patient Behavior: Talkative and Fatigued Mood Description: Constricted and Depressed Affect Description: Constricted Patient Cognition Impaired: Yes Ability to Follow Directions: Fair Speech Pattern: Spontaneous Speech Memory Description: Remote Impaired Diagnostics Vital Signs (24Hr): Vital Signs - 24 hr 12/22/24 20:00 12/23/24 08:00 12/23/24 08:17 Temperature 97.4 F 97 F Pulse Rate 90 92 Respiratory Rate 16 15 Blood Pressure 134/83 136/75 136/75 Pulse Oximetry 97 95 Oxygen Delivery Method Room Air Room Air 12/23/24 08:18 Temperature Pulse Rate Respiratory Rate Blood Pressure 136/75 Pulse Oximetry Oxygen Delivery Method BMI result Body Mass Index 22.5 Labs 11/02/24 20:14 12/20/24 08:43 Labs: Laboratory Results - last 48 hr 12/21/24 12/21/24 12/22/24 16:10 20:59 06:39 POC Glucose 141 H 270 H 217 H 12/22/24 12/22/24 12/22/24 11:34 16:32 20:04 POC Glucose 134 H 200 H 76 12/23/24 12/23/24 06:23 11:32 POC Glucose 237 H 114 Imaging Radiology Impressions: ITS Impressions Hip/Pelvis X-Ray 11/05/24 11:00 IMPRESSION: Unremarkable examination of the left hip. Electronically signed by: Sam Saini MD 11/05/2024 11:13 AM EDT KUB X-Ray 11/06/24 09:20 IMPRESSION: Large amount of stool throughout the colon. Electronically signed by: Sam Saini MD 11/06/2024 09:34 AM EDT RP Head CT 11/08/24 14:58 IMPRESSION: Left frontal soft tissue swelling. No acute intracranial abnormality. Electronically signed by: Sam Saini MD 11/08/2024 03:18 PM EDT RP Medications Medications Current Medications Acetaminophen (Acetaminophen 325 Mg Tablet) 650 mg PO Q6H PRN PRN Reason: Headache/Pain, Scale 1-10 Last Admin: 12/23/24 10:58 Dose: 650 mg Al Hydroxide/Mg Hydroxide (Magnesium Hydrox/Alum Hydrox 30 Ml Oral.Susp) 30 ml PO Q6H PRN PRN Reason: Heartburn/Nausea Last Admin: 12/17/24 06:56 Dose: 30 ml Albuterol Sulfate (Albuterol Sulfate (0.083%) 2.5 Mg/3 Ml Vial.Neb) 2.5 mg INHALE ONCE PRN PRN Reason: Shortness of Breath/Wheezing Last Admin: 12/16/24 07:11 Dose: 2.5 mg Albuterol Sulfate (Albuterol Sulfate 90 Mcg 8 Gm Inhaler) 4 puff INHALE Q4H PRN PRN Reason: Shortness Of Breath Or Wheezin Amlodipine Besylate (Amlodipine Besylate 2.5 Mg Tablet) 2.5 mg PO DAILY [facility]; Protocol Last Admin: 12/23/24 08:18 Dose: 2.5 mg Atorvastatin Calcium (Atorvastatin Calcium 20 Mg Tablet) 20 mg PO DAILY [facility] Last Admin: 12/23/24 08:18 Dose: 20 mg Bisacodyl (Bisacodyl 10 Mg Supp.Rect) 10 mg PA BEDTIME PRN PRN Reason: Constipation Last Admin: 11/04/24 20:37 Dose: 10 mg Bupropion HCl (Bupropion Hcl Xl 300 Mg Tab.Er.24h) 300 mg PO DAILY [facility] Last Admin: 12/23/24 08:17 Dose: 300 mg Buspirone HCl (Buspirone Hcl 10 Mg Tablet) 20 mg PO TID [facility] Last Admin: 12/23/24 08:17 Dose: 20 mg Calcium Carbonate (Calcium Carbonate 750 Mg Tab.Chew) 750 mg PO Q4H PRN PRN Reason: Heartburn Last Admin: 11/30/24 21:34 Dose: 750 mg Clonazepam (Clonazepam Odt 0.125 Mg Tab.Rapdis) 0.25 mg PO BEDTIME [facility] Last Admin: 12/22/24 20:12 Dose: 0.25 mg Clonazepam (Clonazepam Odt 0.125 Mg Tab.Rapdis) 0.25 mg PO BID PRN PRN Reason: severe anxiety Last Admin: 12/23/24 11:40 Dose: 0.25 mg Dicyclomine HCl (Dicyclomine Hcl 10 Mg Capsule) 10 mg PO Q4H PRN PRN Reason: abdominal cramping Last Admin: 12/17/24 13:55 Dose: 10 mg Docusate Sodium (Docusate Sodium 100 Mg Capsule) 100 mg PO BID [facility] Last Admin: 12/23/24 08:17 Dose: 100 mg Duloxetine HCl (Duloxetine Hcl 60 Mg Capsule.Dr) 60 mg PO DAILY [facility] Last Admin: 12/23/24 08:18 Dose: 60 mg Fluticasone/Vilanterol (Fluticasone/Vilanterol 100/25 Blst.W.Dev) 1 puff INHALE RDAILY [facility] Last Admin: 12/23/24 08:17 Dose: 1 puff Gabapentin (Gabapentin 100 Mg Capsule) 100 mg PO TID [facility] Last Admin: 12/23/24 08:17 Dose: 100 mg Glipizide (Glipizide Xl 2.5 Mg Tab.Er.24) 2.5 mg PO DAILY [facility] Last Admin: 12/23/24 08:19 Dose: 2.5 mg Guaifenesin (Guaifenesin La 600 Mg Tab.Er.12h) 1,200 mg PO BID PRN PRN Reason: Cough Last Admin: 12/16/24 14:35 Dose: 1,200 mg Insulin Human Lispro (Insulin Lispro 100 Unit/Ml 3 Ml Vial) 5 unit SUBCUT QIDACHS [facility]; Protocol Last Admin: 12/23/24 11:40 Dose: 5 unit Lisinopril (Lisinopril 2.5 Mg Tablet) 2.5 mg PO DAILY [facility]; Protocol Last Admin: 12/23/24 08:17 Dose: 2.5 mg Magnesium Hydroxide (Milk Of Magnesia 30 Ml Oral.Susp) 30 ml PO DAILY PRN PRN Reason: Constipation Last Admin: 11/04/24 16:49 Dose: 30 ml Metoclopramide HCl (Metoclopramide Hcl Oral Soln 10 Mg/10 Ml Solution) 5 mg PO TIDAC [facility] Last Admin: 12/23/24 11:41 Dose: 5 mg Mirtazapine (Mirtazapine 30 Mg Tablet) 30 mg PO BEDTIME [facility] Last Admin: 12/22/24 20:11 Dose: 30 mg Omeprazole (Omeprazole 20 Mg Capsule.Dr) 20 mg PO BID@0630,1630 [facility] Last Admin: 12/23/24 06:21 Dose: 20 mg Ondansetron HCl (Ondansetron Odt 4 Mg Tab.Rapdis) 4 mg TRANSLINGU Q4H PRN PRN Reason: Nausea and Vomiting Last Admin: 12/17/24 11:23 Dose: 4 mg Polyethylene Glycol (Polyethylene Glycol 3350 17 Gm Powd.Pack) 17 gm PO BID [facility] Last Admin: 12/23/24 08:26 Dose: Not Given Pramipexole Dihydrochloride (Pramipexole Di-Hcl 0.125 Mg Tablet) 0.125 mg PO DAILY [facility] Last Admin: 12/23/24 08:18 Dose: 0.125 mg Pyridoxine HCl (Pyridoxine Hcl (Vitamin B6) 50 Mg Tablet) 50 mg PO DAILY [facility] Last Admin: 12/23/24 08:18 Dose: 50 mg Ropinirole HCl (Ropinirole Hcl 2 Mg Tablet) 2 mg PO DAILY@1700 [facility] Last Admin: 12/22/24 16:58 Dose: 2 mg Senna (Sennosides 8.6 Mg Tablet) 17.2 mg PO BEDTIME [facility] On Hold: 11/06/24 16:27 Last Admin: 11/05/24 19:39 Dose: 17.2 mg Simethicone (Simethicone 80 Mg Tab.Chew) 80 mg PO QIDWMHS [facility] Last Admin: 12/23/24 11:40 Dose: 80 mg Sitagliptin Phosphate (Sitagliptin Phosphate 25 Mg Tablet) 25 mg PO DAILY [facility] On Hold: 12/16/24 08:20 Last Admin: 12/15/24 08:20 Dose: 25 mg Trazodone HCl (Trazodone Hcl 50 Mg Tablet) 50 mg PO BEDTIME MRX1 PRN PRN Reason: Insomnia Last Admin: 12/22/24 21:20 Dose: 50 mg Allergies Allergies Allergy/AdvReac Type Severity Reaction Status Date / Time ampicillin Allergy Rash Verified 10/20/24 19:28 morphine Allergy Rash Verified 10/20/24 19:28 Penicillins Allergy Rash Verified 10/20/24 19:28 pork derived (porcine) Allergy Vomiting Verified 11/10/24 17:49 Assessment & Plan Assessment & Plan (1) MDD (major depressive disorder), recurrent episode, moderate: Status: Acute Code(s): F33.1 - Major depressive disorder, recurrent, moderate (2) 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 Barreto is a 78 year-old woman with hx of MDD who was assessed by N at request of her son who called 911 after pt had reported suicidal ideation with plan to OD. In the ED, pt adamantly denied suicidal ideation but reports feeling increasingly more depressed due to involuntary, ongoing movement of lower extremities. She attributes her depressed mood and increase anxious mood to RLS. She has also been treated as tardive akathisia, note that she was previously prescribed abilify. It is noted that she may have iron deficiency due to normocytic anemia which can exacerbate RLS. It is unclear which medications for hyperkinetic movements of the legs are actually helpful and furthermore it is not easily to differentiate whether it is tardive akathisia or RLS. She has been on psychotropic medications that are known to cause akathisia such as abilify. She reports subjective sense of restlessness. Involuntary movement seems to be throughout the day. We will have to do trial of medications that target akathisia such as propanolol and ativan versus medications such as pramipexol for RLS (note that in RLS there is an initial relief with dopamine agonist but can make it worse over time). In addition, will try iron deficiency as it is an underlying cause and exacerbating factor in RLS. PLAN 11/14 continue tx. will monitor before making substantial changes every day. 11/15 continue tx. pt somatically preoccupied. 11/16: Continue current management and treatment plan. 11/17: continue current management and treatment plan. 11/18 start buspar 10mg po TID for SHEILA. continue all other meds. 11/19 increase buspar 20mg po TID 11/20 appears calmer, less somatically preoccupied. continue current medications. 11/21 sodium stable. continues to present as less dysphoric, calmer. reports of dizziness (VS not hotn nor orthostatic), ?vertigo, will try low dose of meclizine otherwise will consult hospitalist for further management. 8.2- pt more focused on gi issues- and anxiety/forgetfulness- continue to monitor somatic complaints- dc qid poc 11/25 will lowered ropinirole as it may increasing anxiety, noted that buspar was lowered, do not think this medication was causing fogginess as pt appeared much calmer since we added buspar. She was started on low dose clonazepam. 11/26 continue tx. received one time dose xanax, but reported feeling overly sedated (although did not appear sedated) 11/27 somatically p8: Continue current regimen and plansreoccupied, no change in medications. 11/29 continue tx. 11/30: Continue current regimen and plans 12/01: Continue current plans and regimen 12/02 increase buspar 20mg po TID. 12/03: reports depression not improving, c/o feeling low energy and motivation, saying she needs a grape picker. start wellbutrin XL 150 daily tomorrow for depression. also c/o anxiety-provoking and nocturnally loud peer. schedule klonopin 0.25 QHS for insomnia. otherwise continue current mgmt. awaiting placement. 12/04: slept well last night, started wellbutrin this morning without incident. continue current mgmt. will be discharging to [facility]. 12/05: slept well. c/o anxiety at 3-330 in the afternoon. pt to ask for klonopin PRN at 2-230. trend anxiety, T/C DC of wellbutrin if anxiety seems reliably increased since starting it. dispo next week likely. 12/06: anxious. schedule klonopin 0.25 mg Qdaily at 1430 per pt request. otherwise continue current mgmt. 12/07: anxious and depressed. c/o insomnia. will give wellbutrin a few more days to see if insomnia subsides and mood improves. per staf, stable and uneventful presentation. 12/08: depressed. agreeable to increase wellbutrin to 300 mg as of tomorrow. otherwise continue current mgmt. sleeping well. 12/09: started wellbutrin 300 today. c/o URI Sx, start guaifenesin. otherwise continue current mgmt. 12/10: coughin much eves/NOC per staff. pt c/o not happy, cough, and poor sleep. continue mucinex and mental health Tx plan otherwise. 12/11/24: Patient appeared to slept for 8 hours, was medication compliant but refused the MiraLax. Denies side effects. She is observed watching TV in common area. Reported that she feel anxious and depressed. She is worry about when she is leaving as she is going to stay by herself. I am depressed . Self reports that she did not sleep well last night as roommate waking her up at night telling her that she saw dogs. She reports normal stomach pain. She would hope to see the GI doctor after discharge. She reported that she will be discharged on 12/17 but not sure the name of the facility or where it is located. Denies safety concerns, denies hallucinations. No coughing observed this morning. 12/12: c/o unremitting depression, saying she does not want to live like this. interested in ECT, educated re the procedure. obtain risk strat and EKG, discuss in rounds tomorrow morning. otherwise continue current mgmt. 12/13: continues to push for ECT. seen by hospitalist, no relative contraindications to the procedure. case d/w patient's daughter chantelle as well, who avers that pt has been in this state for a long time, it's only getting worse, and medications have not been helpful. johanna supports this trial on the wishes of her mother and MD's recommendation. ECT ordered, will get pt on the schedule as soon as possible. 12/14: Cough-productive, O2 sats are lower , CXR positive. Seen by hospitalist. Antibiotics initiated, R/O pneumonia 12/15: Pt unable to tolerate doxycycline. Hospitalist will change to Ceftin. 12/16: ECT held today due to januvia and respiratory virus. mood slightly improved. plan for weds ECT. 12/17: COVID and flu NEG. c/o nausea, exacerbation of chronic condition, h/o gastroparesis. holding januvia. start reglan for gastroparesis. continue current mgmt otherwise. NPO past MN for ECT tomorrow. 12/18: awaiting med clearance for ECT. planning for ECT monday. otherwise continue current mgmt. glucose noted to be elevated since holding januvia the past several days. 12/19 continue current medications. pt hopefull will have ECT tomorrow. NPO from midnight. 12/20 continue tx. Had ECT #1 no complications noted or reported. 12/21:Continue ECT. 12/22: Increase Klonopin PRN to BID. Otherwise continue current management and treatment plan. 12/23: continue current management and treatment plan. Reason for continued inpatient stay Substantial Risk for: inability to function and rapid decompensation Time Spent With Patient Time: Total time managing care of this patient today ____ minutes.
[2024-12-23 16:24] LABS: Glucose, Whole Blood 125 mg/dL (60-115)
[2024-12-23 19:39] LABS: Glucose, Whole Blood 134 mg/dL (60-115)
[2024-12-23 20:00] VITALS: BP 112/63; PULSE 80; RESP 16; TEMP 36.4; O2SAT 97
[2024-12-24 06:27] LABS: Glucose, Whole Blood 212 mg/dL (60-115)
[2024-12-24 08:00] VITALS: BP 134/67; PULSE 89; RESP 16; TEMP 36.4; O2SAT 97
[2024-12-24] MEDS: Fluticasone/Vilanterol 100/25 BLST.W.DEV 1 PUFF INHALE (08:17)
[2024-12-24 08:19] VITALS: BP 134/67
[2024-12-24] MEDS: buPROPion HCl XL 300 MG TAB.ER.24H PO (08:19)
[2024-12-24] MEDS: Metoclopramide HCl Oral Soln 10 MG/10 ML SOLUTION 5 MG PO ×3 (08:19→16:21)
[2024-12-24 08:20] VITALS: BP 134/67
--- NOTE | 2024-12-24 09:06 | HO.PSYCHPN ---
Subjective Subjective Date of Service: 12/24/24 Reason For Visit: SI with plan to OD on medications, increased anxie Subjective Notes: Conditional Voluntary Interim History: Pt slept through the night. She reports increase in RLS. She denies any GI symptoms. She reports feeling anxious and triggered with particular peer. She is looking forward to have ECT tomorrow. No SI/HI. Appears calmer, engage in groups this morning. Medication Compliance: Yes Review of Systems Review of Systems GI SE of antibiotic Yes all other systems are reviewed and are negative Mental Status Exam Mental Status Exam Narrative: She is alert, pleasant and cooperative. Speech is normal. Moderate eye contact. Affect is appropriate and contained. anxiety and depression present. No acute signs of psychosis. Cognitively impaired. Judgment is impaired Diagnostics Vital Signs (24Hr): Vital Signs - 24 hr 12/23/24 20:00 12/24/24 08:00 12/24/24 08:19 Temperature 97.5 F 97.5 F Pulse Rate 80 89 Respiratory Rate 16 16 Blood Pressure 112/63 134/67 134/67 Pulse Oximetry 97 97 Oxygen Delivery Method Room Air Room Air 12/24/24 08:20 Temperature Pulse Rate Respiratory Rate Blood Pressure 134/67 Pulse Oximetry Oxygen Delivery Method BMI result Body Mass Index 22.5 Labs 11/02/24 20:14 12/20/24 08:43 Labs: Laboratory Results - last 48 hr 12/22/24 12/22/24 12/22/24 11:34 16:32 20:04 POC Glucose 134 H 200 H 76 12/23/24 12/23/24 12/23/24 06:23 11:32 16:20 POC Glucose 237 H 114 125 H 12/23/24 12/24/24 19:35 06:14 POC Glucose 134 H 212 H Imaging Radiology Impressions: ITS Impressions Hip/Pelvis X-Ray 11/05/24 11:00 IMPRESSION: Unremarkable examination of the left hip. Electronically signed by: Sam Saini MD 11/05/2024 11:13 AM EDT RP KUB X-Ray 11/06/24 09:20 IMPRESSION: Large amount of stool throughout the colon. Electronically signed by: Sam Saini MD 11/06/2024 09:34 AM EDT RP Head CT 11/08/24 14:58 IMPRESSION: Left frontal soft tissue swelling. No acute intracranial abnormality. Electronically signed by: Sam Saini MD 11/08/2024 03:18 PM EDT RP Medications Medications Current Medications Acetaminophen (Acetaminophen 325 Mg Tablet) 650 mg PO Q6H PRN PRN Reason: Headache/Pain, Scale 1-10 Last Admin: 12/23/24 10:58 Dose: 650 mg Al Hydroxide/Mg Hydroxide (Magnesium Hydrox/Alum Hydrox 30 Ml Oral.Susp) 30 ml PO Q6H PRN PRN Reason: Heartburn/Nausea Last Admin: 12/17/24 06:56 Dose: 30 ml Albuterol Sulfate (Albuterol Sulfate (0.083%) 2.5 Mg/3 Ml Vial.Neb) 2.5 mg INHALE ONCE PRN PRN Reason: Shortness of Breath/Wheezing Last Admin: 12/16/24 07:11 Dose: 2.5 mg Albuterol Sulfate (Albuterol Sulfate 90 Mcg 8 Gm Inhaler) 4 puff INHALE Q4H PRN PRN Reason: Shortness Of Breath Or Wheezin Amlodipine Besylate (Amlodipine Besylate 2.5 Mg Tablet) 2.5 mg PO DAILY RICHARD; Protocol Last Admin: 12/24/24 08:19 Dose: 2.5 mg Atorvastatin Calcium (Atorvastatin Calcium 20 Mg Tablet) 20 mg PO DAILY [facility] Last Admin: 12/24/24 08:18 Dose: 20 mg Bisacodyl (Bisacodyl 10 Mg Supp.Rect) 10 mg LA BEDTIME PRN PRN Reason: Constipation Last Admin: 11/04/24 20:37 Dose: 10 mg Bupropion HCl (Bupropion Hcl Xl 300 Mg Tab.Er.24h) 300 mg PO DAILY RICHARD Last Admin: 12/24/24 08:19 Dose: 300 mg Buspirone HCl (Buspirone Hcl 10 Mg Tablet) 20 mg PO TID [facility] Last Admin: 12/24/24 08:20 Dose: 20 mg Calcium Carbonate (Calcium Carbonate 750 Mg Tab.Chew) 750 mg PO Q4H PRN PRN Reason: Heartburn Last Admin: 11/30/24 21:34 Dose: 750 mg Clonazepam (Clonazepam Odt 0.125 Mg Tab.Rapdis) 0.25 mg PO BEDTIME [facility]ARD Last Admin: 12/23/24 20:21 Dose: 0.25 mg Clonazepam (Clonazepam Odt 0.125 Mg Tab.Rapdis) 0.25 mg PO BID PRN PRN Reason: severe anxiety Last Admin: 12/23/24 17:47 Dose: 0.25 mg Dicyclomine HCl (Dicyclomine Hcl 10 Mg Capsule) 10 mg PO Q4H PRN PRN Reason: abdominal cramping Last Admin: 12/17/24 13:55 Dose: 10 mg Docusate Sodium (Docusate Sodium 100 Mg Capsule) 100 mg PO BID [facility] Last Admin: 12/24/24 08:18 Dose: 100 mg Duloxetine HCl (Duloxetine Hcl 60 Mg Capsule.Dr) 60 mg PO DAILY [facility] Last Admin: 12/24/24 08:20 Dose: 60 mg Fluticasone/Vilanterol (Fluticasone/Vilanterol 100/25 Blst.W.Dev) 1 puff INHALE RDAILY [facility] Last Admin: 12/24/24 08:17 Dose: 1 puff Gabapentin (Gabapentin 100 Mg Capsule) 100 mg PO TID [facility] Last Admin: 12/24/24 08:19 Dose: 100 mg Glipizide (Glipizide Xl 2.5 Mg Tab.Er.24) 2.5 mg PO DAILY [facility] Last Admin: 12/24/24 08:18 Dose: 2.5 mg Guaifenesin (Guaifenesin La 600 Mg Tab.Er.12h) 1,200 mg PO BID PRN PRN Reason: Cough Last Admin: 12/16/24 14:35 Dose: 1,200 mg Insulin Human Lispro (Insulin Lispro 100 Unit/Ml 3 Ml Vial) 5 unit SUBCUT QIDACHS [facility]; Protocol Last Admin: 12/24/24 08:17 Dose: 5 unit Lisinopril (Lisinopril 2.5 Mg Tablet) 2.5 mg PO DAILY [facility]; Protocol Last Admin: 12/24/24 08:20 Dose: 2.5 mg Magnesium Hydroxide (Milk Of Magnesia 30 Ml Oral.Susp) 30 ml PO DAILY PRN PRN Reason: Constipation Last Admin: 11/04/24 16:49 Dose: 30 ml Metoclopramide HCl (Metoclopramide Hcl Oral Soln 10 Mg/10 Ml Solution) 5 mg PO TIDAC [facility] Last Admin: 12/24/24 08:19 Dose: 5 mg Mirtazapine (Mirtazapine 30 Mg Tablet) 30 mg PO BEDTIME [facility] Last Admin: 12/23/24 20:21 Dose: 30 mg Omeprazole (Omeprazole 20 Mg Capsule.Dr) 20 mg PO BID@0630,1630 [facility] Last Admin: 12/24/24 06:11 Dose: 20 mg Ondansetron HCl (Ondansetron Odt 4 Mg Tab.Rapdis) 4 mg TRANSLINGU Q4H PRN PRN Reason: Nausea and Vomiting Last Admin: 12/17/24 11:23 Dose: 4 mg Polyethylene Glycol (Polyethylene Glycol 3350 17 Gm Powd.Pack) 17 gm PO BID [facility] Last Admin: 12/24/24 08:20 Dose: 17 gm Pramipexole Dihydrochloride (Pramipexole Di-Hcl 0.125 Mg Tablet) 0.125 mg PO DAILY [facility] Last Admin: 12/24/24 08:19 Dose: 0.125 mg Pyridoxine HCl (Pyridoxine Hcl (Vitamin B6) 50 Mg Tablet) 50 mg PO DAILY [facility] Last Admin: 12/24/24 08:18 Dose: 50 mg Ropinirole HCl (Ropinirole Hcl 2 Mg Tablet) 2 mg PO DAILY@1700 [facility] Last Admin: 12/23/24 16:49 Dose: 2 mg Senna (Sennosides 8.6 Mg Tablet) 17.2 mg PO BEDTIME [facility] On Hold: 11/06/24 16:27 Last Admin: 11/05/24 19:39 Dose: 17.2 mg Simethicone (Simethicone 80 Mg Tab.Chew) 80 mg PO QIDWMHS [facility] Last Admin: 12/24/24 08:19 Dose: 80 mg Sitagliptin Phosphate (Sitagliptin Phosphate 25 Mg Tablet) 25 mg PO DAILY [facility] On Hold: 12/16/24 08:20 Last Admin: 12/15/24 08:20 Dose: 25 mg Trazodone HCl (Trazodone Hcl 50 Mg Tablet) 50 mg PO BEDTIME MRX1 PRN PRN Reason: Insomnia Last Admin: 12/22/24 21:20 Dose: 50 mg Allergies Allergies Allergy/AdvReac Type Severity Reaction Status Date / Time ampicillin Allergy Rash Verified 10/20/24 19:28 morphine Allergy Rash Verified 10/20/24 19:28 Penicillins Allergy Rash Verified 10/20/24 19:28 pork derived (porcine) Allergy Vomiting Verified 11/10/24 17:49 Assessment & Plan Assessment & Plan (1) MDD (major depressive disorder), recurrent episode, moderate: Status: Acute Code(s): F33.1 - Major depressive disorder, recurrent, moderate (2) 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 Barreto is a 78 year-old woman with hx of MDD who was assessed by N at request of her son who called 911 after pt had reported suicidal ideation with plan to OD. In the ED, pt adamantly denied suicidal ideation but reports feeling increasingly more depressed due to involuntary, ongoing movement of lower extremities. She attributes her depressed mood and increase anxious mood to RLS. She has also been treated as tardive akathisia, note that she was previously prescribed abilify. It is noted that she may have iron deficiency due to normocytic anemia which can exacerbate RLS. It is unclear which medications for hyperkinetic movements of the legs are actually helpful and furthermore it is not easily to differentiate whether it is tardive akathisia or RLS. She has been on psychotropic medications that are known to cause akathisia such as abilify. She reports subjective sense of restlessness. Involuntary movement seems to be throughout the day. We will have to do trial of medications that target akathisia such as propanolol and ativan versus medications such as pramipexol for RLS (note that in RLS there is an initial relief with dopamine agonist but can make it worse over time). In addition, will try iron deficiency as it is an underlying cause and exacerbating factor in RLS. PLAN 11/14 continue tx. will monitor before making substantial changes every day. 11/15 continue tx. pt somatically preoccupied. 11/16: Continue current management and treatment plan. 11/17: continue current management and treatment plan. 11/18 start buspar 10mg po TID for SHEILA. continue all other meds. 11/19 increase buspar 20mg po TID 11/20 appears calmer, less somatically preoccupied. continue current medications. 11/21 sodium stable. continues to present as less dysphoric, calmer. reports of dizziness (VS not hotn nor orthostatic), ?vertigo, will try low dose of meclizine otherwise will consult hospitalist for further management. 8.2- pt more focused on gi issues- and anxiety/forgetfulness- continue to monitor somatic complaints- dc qid poc 11/25 will lowered ropinirole as it may increasing anxiety, noted that buspar was lowered, do not think this medication was causing fogginess as pt appeared much calmer since we added buspar. She was started on low dose clonazepam. 11/26 continue tx. received one time dose xanax, but reported feeling overly sedated (although did not appear sedated) 11/27 somatically : Continue current regimen and plansreoccupied, no change in medications. 11/29 continue tx. 11/30: Continue current regimen and plans 12/01: Continue current plans and regimen 12/02 increase buspar 20mg po TID. 12/03: reports depression not improving, c/o feeling low energy and motivation, saying she needs a picker tender. start wellbutrin XL 150 daily tomorrow for depression. also c/o anxiety-provoking and nocturnally loud peer. schedule klonopin 0.25 QHS for insomnia. otherwise continue current mgmt. awaiting placement. 12/04: slept well last night, started wellbutrin this morning without incident. continue current mgmt. will be discharging to [facility]. 12/05: slept well. c/o anxiety at 3-330 in the afternoon. pt to ask for klonopin PRN at 2-230. trend anxiety, T/C DC of wellbutrin if anxiety seems reliably increased since starting it. dispo next week likely. 12/06: anxious. schedule klonopin 0.25 mg Qdaily at 1430 per pt request. otherwise continue current mgmt. 12/07: anxious and depressed. c/o insomnia. will give wellbutrin a few more days to see if insomnia subsides and mood improves. per staf, stable and uneventful presentation. 12/08: depressed. agreeable to increase wellbutrin to 300 mg as of tomorrow. otherwise continue current mgmt. sleeping well. 12/09: started wellbutrin 300 today. c/o URI Sx, start guaifenesin. otherwise continue current mgmt. 12/10: coughin much eves/NOC per staff. pt c/o not happy, cough, and poor sleep. continue mucinex and mental health Tx plan otherwise. 12/11/24: Patient appeared to slept for 8 hours, was medication compliant but refused the MiraLax. Denies side effects. She is observed watching TV in common area. Reported that she feel anxious and depressed. She is worry about when she is leaving as she is going to stay by herself. I am depressed . Self reports that she did not sleep well last night as roommate waking her up at night telling her that she saw dogs. She reports normal stomach pain. She would hope to see the GI doctor after discharge. She reported that she will be discharged on 12/17 but not sure the name of the facility or where it is located. Denies safety concerns, denies hallucinations. No coughing observed this morning. 12/12: c/o unremitting depression, saying she does not want to live like this. interested in ECT, educated re the procedure. obtain risk strat and EKG, discuss in rounds tomorrow morning. otherwise continue current mgmt. 12/13: continues to push for ECT. seen by hospitalist, no relative contraindications to the procedure. case d/w patient's daughter chantelle as well, who avers that pt has been in this state for a long time, it's only getting worse, and medications have not been helpful. johanna supports this trial on the wishes of her mother and MD's recommendation. ECT ordered, will get pt on the schedule as soon as possible. 12/14: Cough-productive, O2 sats are lower , CXR positive. Seen by hospitalist. Antibiotics initiated, R/O pneumonia 12/15: Pt unable to tolerate doxycycline. Hospitalist will change to Ceftin. 12/16: ECT held today due to januvia and respiratory virus. mood slightly improved. plan for ECT. 12/17: COVID and flu NEG. c/o nausea, exacerbation of chronic condition, h/o gastroparesis. holding januvia. start reglan for gastroparesis. continue current mgmt otherwise. NPO past MN for ECT tomorrow. 12/18: awaiting med clearance for ECT. planning for ECT monday. otherwise continue current mgmt. glucose noted to be elevated since holding januvia the past several days. 12/19 continue current medications. pt hopefull will have ECT tomorrow. NPO from midnight. 12/20 continue tx. Had ECT #1 no complications noted or reported. 12/21:Continue ECT. 12/22: Increase Klonopin PRN to BID. Otherwise continue current management and treatment plan. 12/23: continue current management and treatment plan. 12/24 continue tx. ECT tomorrow, NPO after midnight. Reason for continued inpatient stay Substantial Risk for: inability to function Time Spent With Patient Time: Total time managing care of this patient today ____ minutes.
[2024-12-24 11:26] LABS: Glucose, Whole Blood 168 mg/dL (60-115)
[2024-12-24] MEDS: clonazePAM ODT 0.125 MG TAB.RAPDIS 0.25 MG PO ×2 (11:55→20:35)
[2024-12-24 16:15] LABS: Glucose, Whole Blood 97 mg/dL (60-115)
[2024-12-24 20:00] VITALS: BP 125/61; PULSE 88; RESP 20; TEMP 36.6; O2SAT 98
[2024-12-24 20:05] LABS: Glucose, Whole Blood 208 mg/dL (60-115)
[2024-12-25] VITALS (9 sets, daily range): BP systolic 116–160; BP diastolic 44–84; PULSE 86–103; RESP 16–26; TEMP 36.2–36.9; O2SAT 94–98
[2024-12-25 06:01] LABS: Glucose, Whole Blood 220 mg/dL (60-115)
--- NOTE | 2024-12-25 07:10 | MHC.SHP ---
Pre-Procedural Eval Section A - 24 Hr Update-Section A only Date of Service: 12/25/24 Changes since office visit: No Cold of Flu in the past 2 weeks, No New Medical Problems, No Changes in Medication and No Patient answered all questions The patient has been examined within 24 hours of the surgical procedure. The History & Physical has been completed within 30 days and I have reviewed it.: Yes Section B - Complete if H&P > 30 days Chief Complaint: SI with plan to OD on medications, increased anxie Details of Present Illness: mood better Allergies: Allergies Allergy/AdvReac Type Severity Reaction Status Date / Time ampicillin Allergy Rash Verified 10/20/24 19:28 morphine Allergy Rash Verified 10/20/24 19:28 Penicillins Allergy Rash Verified 10/20/24 19:28 pork derived (porcine) Allergy Vomiting Verified 11/10/24 17:49 Review of Systems Sugical H&P ROS: Negative: Cardiovascular, Respiratory, Gastrointestinal and Musculoskeletal Exam Surgical H&P Exam: Normal: Heart (RRR) and Normal: Lungs (CTA b/L) Plan Diagnosis/Plan: Unchanged I have reviewed the history and physical and performed a pertinent physical examination on my patient. No changes have occurred unless specified. Time Spent With Patient Time: Total time managing care of this patient today ____ minutes.
--- NOTE | 2024-12-25 07:21 | P.CONAN_ITS ---
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 (Acute) Hyponatremia (Acute) Fall (Acute) Constipation (Acute) Forehead laceration (Acute) Diabetes (Acute) RLS (restless legs syndrome) (Acute) MDD (major depressive disorder), recurrent episode, moderate (Acute) Gastroparesis (Acute) Anxiety (Acute) Past Medical History Medical History Tension headache Peripheral neuropathy Akathisia Cerebral microvascular disease RLS (restless legs syndrome) Migraines Diabetes Hypertension Anxiety Family History Family history of problems with anesthesia: No Surgical History History of Problems with Anesthesia: No Social History Social History Household Members: None Housing: House Do you presently have visiting nurse or other home services: Yes Patient Tobacco Use Status: Never used Tobacco Currently Displaying Signs/Symptoms of Drug Intoxication Withdrawal: No Have you been hit, kicked, punched, or otherwise hurt by someone within the past year? If so, by whom?: No Do you feel safe in your current relationship?: No Current Relationship Is there a partner from a previous relationship who is making you feel unsafe now?: No Are you made to feel afraid or neglected: No Spiritual Healthcare Practices: meditation and breathing Advance Directives: No Advance Directives Information Provided: No Do you have thoughts of harming others: None Do you have a plan to hurt others: No Plan Recently lost weight without trying: No Eating poorly because of decreased appetite: No Nutrition Risks: No Nutritional Risk Patient : No : No Poor oral hygiene: No service: No Sexual orientation: Straight/Heterosexual Meds Allergies Allergy/AdvReac Type Severity Reaction Status Date / Time ampicillin Allergy Rash Verified 10/20/24 19:28 morphine Allergy Rash Verified 10/20/24 19:28 Penicillins Allergy Rash Verified 10/20/24 19:28 pork derived (porcine) Allergy Vomiting Verified 11/10/24 17:49 Active Medications: Current Medications Acetaminophen (Acetaminophen 325 Mg Tablet) 650 mg PO Q6H PRN PRN Reason: Headache/Pain, Scale 1-10 Last Admin: 12/24/24 09:45 Dose: 650 mg Al Hydroxide/Mg Hydroxide (Magnesium Hydrox/Alum Hydrox 30 Ml Oral.Susp) 30 ml PO Q6H PRN PRN Reason: Heartburn/Nausea Last Admin: 12/17/24 06:56 Dose: 30 ml Albuterol Sulfate (Albuterol Sulfate (0.083%) 2.5 Mg/3 Ml Vial.Neb) 2.5 mg INHALE ONCE PRN PRN Reason: Shortness of Breath/Wheezing Last Admin: 12/16/24 07:11 Dose: 2.5 mg Albuterol Sulfate (Albuterol Sulfate 90 Mcg 8 Gm Inhaler) 4 puff INHALE Q4H PRN PRN Reason: Shortness Of Breath Or Wheezin Amlodipine Besylate (Amlodipine Besylate 2.5 Mg Tablet) 2.5 mg PO DAILY [facility]; Protocol Last Admin: 12/24/24 08:19 Dose: 2.5 mg Atorvastatin Calcium (Atorvastatin Calcium 20 Mg Tablet) 20 mg PO DAILY [facility] Last Admin: 12/24/24 08:18 Dose: 20 mg Bisacodyl (Bisacodyl 10 Mg Supp.Rect) 10 mg TN BEDTIME PRN PRN Reason: Constipation Last Admin: 11/04/24 20:37 Dose: 10 mg Bupropion HCl (Bupropion Hcl Xl 300 Mg Tab.Er.24h) 300 mg PO DAILY [facility] Last Admin: 12/24/24 08:19 Dose: 300 mg Buspirone HCl (Buspirone Hcl 10 Mg Tablet) 20 mg PO TID [facility] Last Admin: 12/24/24 20:36 Dose: 20 mg Calcium Carbonate (Calcium Carbonate 750 Mg Tab.Chew) 750 mg PO Q4H PRN PRN Reason: Heartburn Last Admin: 11/30/24 21:34 Dose: 750 mg Clonazepam (Clonazepam Odt 0.125 Mg Tab.Rapdis) 0.25 mg PO BEDTIME RICHARD Last Admin: 12/24/24 20:35 Dose: 0.25 mg Clonazepam (Clonazepam Odt 0.125 Mg Tab.Rapdis) 0.25 mg PO BID PRN PRN Reason: severe anxiety Last Admin: 12/24/24 11:55 Dose: 0.25 mg Dicyclomine HCl (Dicyclomine Hcl 10 Mg Capsule) 10 mg PO Q4H PRN PRN Reason: abdominal cramping Last Admin: 12/17/24 13:55 Dose: 10 mg Docusate Sodium (Docusate Sodium 100 Mg Capsule) 100 mg PO BID [facility] Last Admin: 12/24/24 20:35 Dose: 100 mg Duloxetine HCl (Duloxetine Hcl 60 Mg Capsule.Dr) 60 mg PO DAILY [facility] Last Admin: 12/24/24 08:20 Dose: 60 mg Fluticasone/Vilanterol (Fluticasone/Vilanterol 100/25 Blst.W.Dev) 1 puff INHALE RDAILY [facility] Last Admin: 12/24/24 08:17 Dose: 1 puff Gabapentin (Gabapentin 100 Mg Capsule) 100 mg PO TID [facility] Last Admin: 12/24/24 20:35 Dose: 100 mg Glipizide (Glipizide Xl 2.5 Mg Tab.Er.24) 2.5 mg PO DAILY [facility] Last Admin: 12/24/24 08:18 Dose: 2.5 mg Guaifenesin (Guaifenesin La 600 Mg Tab.Er.12h) 1,200 mg PO BID PRN PRN Reason: Cough Last Admin: 12/16/24 14:35 Dose: 1,200 mg Insulin Human Lispro (Insulin Lispro 100 Unit/Ml 3 Ml Vial) 5 unit SUBCUT QIDACHS [facility]; Protocol Last Admin: 12/24/24 20:40 Dose: 5 unit Lisinopril (Lisinopril 2.5 Mg Tablet) 2.5 mg PO DAILY [facility]; Protocol Last Admin: 12/24/24 08:20 Dose: 2.5 mg Magnesium Hydroxide (Milk Of Magnesia 30 Ml Oral.Susp) 30 ml PO DAILY PRN PRN Reason: Constipation Last Admin: 11/04/24 16:49 Dose: 30 ml Metoclopramide HCl (Metoclopramide Hcl Oral Soln 10 Mg/10 Ml Solution) 5 mg PO TIDAC [facility] Last Admin: 12/24/24 16:21 Dose: 5 mg Mirtazapine (Mirtazapine 30 Mg Tablet) 30 mg PO BEDTIME [facility] Last Admin: 12/24/24 20:35 Dose: 30 mg Omeprazole (Omeprazole 20 Mg Capsule.Dr) 20 mg PO BID@0630,1630 [facility] Last Admin: 12/25/24 05:38 Dose: Not Given Ondansetron HCl (Ondansetron Odt 4 Mg Tab.Rapdis) 4 mg TRANSLINGU Q4H PRN PRN Reason: Nausea and Vomiting Last Admin: 12/17/24 11:23 Dose: 4 mg Polyethylene Glycol (Polyethylene Glycol 3350 17 Gm Powd.Pack) 17 gm PO BID [facility] Last Admin: 12/24/24 20:36 Dose: Not Given Pramipexole Dihydrochloride (Pramipexole Di-Hcl 0.125 Mg Tablet) 0.125 mg PO DAILY [facility] Last Admin: 12/24/24 08:19 Dose: 0.125 mg Pyridoxine HCl (Pyridoxine Hcl (Vitamin B6) 50 Mg Tablet) 50 mg PO DAILY [facility] Last Admin: 12/24/24 08:18 Dose: 50 mg Ropinirole HCl (Ropinirole Hcl 2 Mg Tablet) 2 mg PO DAILY@1700 [facility] Last Admin: 12/24/24 16:58 Dose: 2 mg Senna (Sennosides 8.6 Mg Tablet) 17.2 mg PO BEDTIME [facility] On Hold: 11/06/24 16:27 Last Admin: 11/05/24 19:39 Dose: 17.2 mg Simethicone (Simethicone 80 Mg Tab.Chew) 80 mg PO QIDWMHS [facility] Last Admin: 12/24/24 20:36 Dose: 80 mg Sitagliptin Phosphate (Sitagliptin Phosphate 25 Mg Tablet) 25 mg PO DAILY [facility] On Hold: 12/16/24 08:20 Last Admin: 12/15/24 08:20 Dose: 25 mg Trazodone HCl (Trazodone Hcl 50 Mg Tablet) 50 mg PO BEDTIME MRX1 PRN PRN Reason: Insomnia Last Admin: 12/22/24 21:20 Dose: 50 mg Home Medications ?Medication ?Instructions ?Recorded ?Confirmed ?Last Taken ?Type atorvastatin 20 mg tablet 20 mg PO DAILY 04/01/23 06/3 03/31/23 21:00 History ondansetron HCl 4 mg tablet 4 mg PO Q8H PRN nausea 01/1410/21/24 03/31/23 21:00 History pantoprazole 40 mg tablet,delayed 40 mg PO BID@0630,16 30 04/01/23 10/21/24 03/31/23 21:00 History release sitagliptin phosphate 100 mg 100 mg PO DAILY 12/01/1410/21/24 03/31/23 21:00 History tablet (Januvia) albuterol sulfate 90 mcg/actuation 2 puff inhalation Q 4-6H PRN 10/21/24 10/21/24 Unknown History aerosol inhaler Shortness Of Breath Or Wheez ing amlodipine 2.5 mg tablet 2.5 mg PO DAILY 10/21/24 Unknown History duloxetine 20 mg capsule,delayed 40 mg PO DAILY 10/21/24 Unknown Histo ry release fluticasone furoate 100 1 ea inhalation DAILY 10/21/24 Unknown History mcg-vilanterol 25 mcg/dose inhalation powder (Breo Ellipta) gabapentin 100 mg capsule 100 mg PO TID 10/21/2410/21 Unknown History gabapentin 600 mg tablet 600 mg PO BEDTIME 10/21/24 0 10/21/24 Unknown History glipizide 2.5 mg tablet, extended 2.5 mg PO DAILY 09/2410/21/24 Unknown History release 24 hr lamotrigine 100 mg tablet 100 mg PO DAILY 10/21/24 Unknown History lisinopril 20 mg tablet 20 mg PO DAILY 10/21/2409/24 Unknown History lorazepam 0.5 mg tablet 0.25 mg PO BID 10/21/2409/24 Unknown History mirtazapine 45 mg tablet 45 mg PO BEDTIME 10/21/24 Unknown History olanzapine 2.5 mg tablet 2.5 mg PO BEDTIME 10/21/24 0 10/21/24 Unknown History pramipexole 0.25 mg tablet 0.25 mg PO BID 10/21/24 Unknown History propranolol 20 mg tablet 20 mg PO DAILY 10/21/2409/24 Unknown History Exam Height,Weight and Vital Signs: Height 4 ft 10 in Weight 48.807 kg Last Vital Signs Temp 97.8 F 12/25/24 07:02 Pulse 86 12/25/24 07:02 Resp 16 12/25/24 07:02 BP 123/68 12/25/24 07:02 Pulse Ox 94 12/25/24 07:02 O2 Del Method Room Air 12/25/24 07:02 O2 Flow Rate 3 12/20/24 08:36 Pertinent Lab Results Pertinent Lab Results: Laboratory Tests 10/20/24 10/20/24 10/22/24 19:59 21:45 07:23 WBC 7.6 RBC 3.65 L Hgb 10.8 L Hct 31.3 L MCV 85.8 MCH 29.6 MCHC 34.5 RDW 13.6 Plt Count 213 MPV 8.7 L Immature Gran % (Auto) 0.3 Neut % (Auto) 58.4 Lymph % (Auto) 29.8 Cameron % (Auto) 9.9 Eos % (Auto) 1.1 Baso % (Auto) 0.5 Lymph # (Auto) 2.3 Cameron # (Auto) 0.8 Eos # (Auto) 0.1 Baso # (Auto) 0.0 Abs Immat Gran (auto) 0.02 Absolute Neuts (auto) 4.4 Absolute Nucleated RBC 0.000 Nucleated RBC % (auto) 0.0 Smear Tech's Comments Hold Purple Top VBG pH VBG pCO2 VBG pO2 VBG HCO3 VBG O2 Saturation VBG Base Excess Sodium 140 142 Potassium 4.2 4.6 Chloride 108 108 Carbon Dioxide 23 23 Anion Gap 13 16 BUN 33 H 22 H Creatinine 1.15 1.09 Estim Creat Clear Calc 26.9 30.7 Estimated GFR 46 49 POC Glucose Random Glucose 96 204 H Estimat Average Glucose 160 Hemoglobin A1c % 7.2 H Osmolality Lactic Acid Calcium 9.3 9.6 Magnesium Iron TIBC % Saturation Unsat Iron Binding Total Bilirubin 0.5 AST 21 ALT 25 Alkaline Phosphatase 67 Total Protein 7.4 Albumin 4.9 Triglycerides 102 Cholesterol 148 LDL Cholesterol, Calc 68 HDL Cholesterol 60 Lipase TSH 2.14 Free T4 1.15 Urine Color Yellow Urine Appearance Clear Urine pH 7.0 Ur Specific Herrick 1.010 Urine Protein Negative Urine Glucose (UA) Negative Urine Ketones Negative Urine Blood Negative Urine Nitrite Negative Ur Leukocyte Esterase Large (3+) H Urine RBC 0-2 Urine WBC 21-50 H Ur Squamous Epith Cells 0-2 Urine Bacteria Trace Hyaline Casts 0-2 Urine Osmolality Ur Random Sodium Urine Opiates Screen POSITIVE H Ur Buprenorphine Scrn Not Detected Ur Oxycodone Screen Not Detected Urine Methadone Screen Not Detected Urine Fentanyl Screen Not Detected Ur Barbiturates Screen Not Detected Carbamazepine Ur Phencyclidine Scrn Not Detected Ur Amphetamines Screen Not Detected U Benzodiazepines Scrn Not Detected Urine Cocaine Screen Not Detected U Marijuana (THC) Screen Not Detected COVID-19 (TRESA) COVID-19 Clin Com Influenza Type A (AMANDA) Influenza Type B (AMANDA) Influenza A & B Note TB Test (T-Spot) Com TB Test Nil Control TB Test Panel A TB Test Panel B TB Test Positive Cntrl 10/23/24 10/23/24 10/23/24 15:19 15:20 16:31 WBC 6.4 RBC 4.03 L Hgb 11.8 L Hct 34.7 L MCV 86.1 MCH 29.3 MCHC 34.0 RDW 13.6 Plt Count 221 MPV 9.8 Immature Gran % (Auto) 0.3 Neut % (Auto) 64.6 Lymph % (Auto) 23.0 Cameron % (Auto) 10.4 Eos % (Auto) 1.2 Baso % (Auto) 0.5 Lymph # (Auto) 1.5 Cameron # (Auto) 0.7 Eos # (Auto) 0.1 Baso # (Auto) 0.0 Abs Immat Gran (auto) 0.02 Absolute Neuts (auto) 4.2 Absolute Nucleated RBC 0.000 Nucleated RBC % (auto) 0.0 Smear Tech's Comments VERIFIED Hold Purple Top VBG pH VBG pCO2 VBG pO2 VBG HCO3 VBG O2 Saturation VBG Base Excess Sodium 137 Potassium 4.5 Chloride 104 Carbon Dioxide 24 Anion Gap 14 BUN 26 H Creatinine 1.02 Estim Creat Clear Calc 32.8 Estimated GFR 53 POC Glucose 132 H Random Glucose 158 H Estimat Average Glucose Hemoglobin A1c % Osmolality Lactic Acid Calcium 9.3 Magnesium Iron TIBC % Saturation Unsat Iron Binding Total Bilirubin AST ALT Alkaline Phosphatase Total Protein Albumin Triglycerides Cholesterol LDL Cholesterol, Calc HDL Cholesterol Lipase TSH Free T4 Urine Color Urine Appearance Urine pH Ur Specific Herrick Urine Protein Urine Glucose (UA) Urine Ketones Urine Blood Urine Nitrite Ur Leukocyte Esterase Urine RBC Urine WBC Ur Squamous Epith Cells Urine Bacteria Hyaline Casts Urine Osmolality Ur Random Sodium Urine Opiates Screen Ur Buprenorphine Scrn Ur Oxycodone Screen Urine Methadone Screen Urine Fentanyl Screen Ur Barbiturates Screen Carbamazepine Ur Phencyclidine Scrn Ur Amphetamines Screen U Benzodiazepines Scrn Urine Cocaine Screen U Marijuana (THC) Screen COVID-19 (TRESA) COVID-19 Clin Com Influenza Type A (AMANDA) Influenza Type B (AMANDA) Influenza A & B Note TB Test (T-Spot) Com TB Test Nil Control TB Test Panel A TB Test Panel B TB Test Positive [facility] 10/24/24 10/24/24 10/24/24 06:51 11:08 12:19 WBC RBC Hgb Hct MCV MCH MCHC RDW Plt Count MPV Immature Gran % (Auto) Neut % (Auto) Lymph % (Auto) Cameron % (Auto) Eos % (Auto) Baso % (Auto) Lymph # (Auto) Cameron # (Auto) Eos # (Auto) Baso # (Auto) Abs Immat Gran (auto) Absolute Neuts (auto) Absolute Nucleated RBC Nucleated RBC % (auto) Smear Tech's Comments Hold Purple Top VBG pH VBG pCO2 VBG pO2 VBG HCO3 VBG O2 Saturation VBG Base Excess Sodium Potassium Chloride Carbon Dioxide Anion Gap BUN Creatinine Estim Creat Clear Calc Estimated GFR POC Glucose 204 H 95 Random Glucose Estimat Average Glucose Hemoglobin A1c % Osmolality Lactic Acid Calcium Magnesium Iron 65 TIBC 216 L % Saturation 30 Unsat Iron Binding 151 Total Bilirubin AST ALT Alkaline Phosphatase Total Protein Albumin Triglycerides Cholesterol LDL Cholesterol, Calc HDL Cholesterol Lipase TSH Free T4 Urine Color Urine Appearance Urine pH Ur Specific Herrick Urine Protein Urine Glucose (UA) Urine Ketones Urine Blood Urine Nitrite Ur Leukocyte Esterase Urine RBC Urine WBC Ur Squamous Epith Cells Urine Bacteria Hyaline Casts Urine Osmolality Ur Random Sodium Urine Opiates Screen Ur Buprenorphine Scrn Ur Oxycodone Screen Urine Methadone Screen Urine Fentanyl Screen Ur Barbiturates Screen Carbamazepine Ur Phencyclidine Scrn Ur Amphetamines Screen U Benzodiazepines Scrn Urine Cocaine Screen U Marijuana (THC) Screen COVID-19 ([facility]) COVID-19 Clin Com Influenza Type A (AMANDA) Influenza Type B (AMANDA) Influenza A & B Note TB Test (T-Spot) Com TB Test Nil Control TB Test Panel A TB Test Panel B TB Test Positive [facility] 10/24/24 10/25/24 10/25/24 16:06 05:55 11:15 WBC RBC Hgb Hct MCV MCH MCHC RDW Plt Count MPV Immature Gran % (Auto) Neut % (Auto) Lymph % (Auto) Cameron % (Auto) Eos % (Auto) Baso % (Auto) Lymph # (Auto) Cameron # (Auto) Eos # (Auto) Baso # (Auto) Abs Immat Gran (auto) Absolute Neuts (auto) Absolute Nucleated RBC Nucleated RBC % (auto) Smear Tech's Comments Hold Purple Top VBG pH VBG pCO2 VBG pO2 VBG HCO3 VBG O2 Saturation VBG Base Excess Sodium Potassium Chloride Carbon Dioxide Anion Gap BUN Creatinine Estim Creat Clear Calc Estimated GFR POC Glucose 142 H 190 H 177 H Random Glucose Estimat Average Glucose Hemoglobin A1c % Osmolality Lactic Acid Calcium Magnesium Iron TIBC % Saturation Unsat Iron Binding Total Bilirubin AST ALT Alkaline Phosphatase Total Protein Albumin Triglycerides Cholesterol LDL Cholesterol, Calc HDL Cholesterol Lipase TSH Free T4 Urine Color Urine Appearance Urine pH Ur Specific Herrick Urine Protein Urine Glucose (UA) Urine Ketones Urine Blood Urine Nitrite Ur Leukocyte Esterase Urine RBC Urine WBC Ur Squamous Epith Cells Urine Bacteria Hyaline Casts Urine Osmolality Ur Random Sodium Urine Opiates Screen Ur Buprenorphine Scrn Ur Oxycodone Screen Urine Methadone Screen Urine Fentanyl Screen Ur Barbiturates Screen Carbamazepine Ur Phencyclidine Scrn Ur Amphetamines Screen U Benzodiazepines Scrn Urine Cocaine Screen U Marijuana (THC) Screen COVID-19 ([facility]ES[facility]) COVID-19 Clin Com Influenza Type A (AMANDA) Influenza Type B (AMANDA) Influenza A & B Note TB Test (T-Spot) Com TB Test Nil Control TB Test Panel A TB Test Panel B TB Test Positive [facility] 10/25/24 10/26/24 10/26/24 16:33 07:05 10:57 WBC RBC Hgb Hct MCV MCH MCHC RDW Plt Count MPV Immature Gran % (Auto) Neut % (Auto) Lymph % (Auto) Cameron % (Auto) Eos % (Auto) Baso % (Auto) Lymph # (Auto) Cameron # (Auto) Eos # (Auto) Baso # (Auto) Abs Immat Gran (auto) Absolute Neuts (auto) Absolute Nucleated RBC Nucleated RBC % (auto) Smear Tech's Comments Hold Purple Top VBG pH VBG pCO2 VBG pO2 VBG HCO3 VBG O2 Saturation VBG Base Excess Sodium Potassium Chloride Carbon Dioxide Anion Gap BUN Creatinine Estim Creat Clear Calc Estimated GFR POC Glucose 170 H 185 H 189 H Random Glucose Estimat Average Glucose Hemoglobin A1c % Osmolality Lactic Acid Calcium Magnesium Iron TIBC % Saturation Unsat Iron Binding Total Bilirubin AST ALT Alkaline Phosphatase Total Protein Albumin Triglycerides Cholesterol LDL Cholesterol, Calc HDL Cholesterol Lipase TSH Free T4 Urine Color Urine Appearance Urine pH Ur Specific Herrick Urine Protein Urine Glucose (UA) Urine Ketones Urine Blood Urine Nitrite Ur Leukocyte Esterase Urine RBC Urine WBC Ur Squamous Epith Cells Urine Bacteria Hyaline Casts Urine Osmolality Ur Random Sodium Urine Opiates Screen Ur Buprenorphine Scrn Ur Oxycodone Screen Urine Methadone Screen Urine Fentanyl Screen Ur Barbiturates Screen Carbamazepine Ur Phencyclidine Scrn Ur Amphetamines Screen U Benzodiazepines Scrn Urine Cocaine Screen U Marijuana (THC) Screen COVID-19 (TRESA) COVID-19 Clin Com Influenza Type A (AMANDA) Influenza Type B (AMANDA) Influenza A & B Note TB Test (T-Spot) Com TB Test Nil Control TB Test Panel A TB Test Panel B TB Test Positive Cntr 10/26/24 10/27/24 10/27/24 16:19 06:45 11:24 WBC RBC Hgb Hct MCV MCH MCHC RDW Plt Count MPV Immature Gran % (Auto) Neut % (Auto) Lymph % (Auto) Cameron % (Auto) Eos % (Auto) Baso % (Auto) Lymph # (Auto) Cameron # (Auto) Eos # (Auto) Baso # (Auto) Abs Immat Gran (auto) Absolute Neuts (auto) Absolute Nucleated RBC Nucleated RBC % (auto) Smear Tech's Comments Hold Purple Top VBG pH VBG pCO2 VBG pO2 VBG HCO3 VBG O2 Saturation VBG Base Excess Sodium Potassium Chloride Carbon Dioxide Anion Gap BUN Creatinine Estim Creat Clear Calc Estimated GFR POC Glucose 170 H 215 H 117 H Random Glucose Estimat Average Glucose Hemoglobin A1c % Osmolality Lactic Acid Calcium Magnesium Iron TIBC % Saturation Unsat Iron Binding Total Bilirubin AST ALT Alkaline Phosphatase Total Protein Albumin Triglycerides Cholesterol LDL Cholesterol, Calc HDL Cholesterol Lipase TSH Free T4 Urine Color Urine Appearance Urine pH Ur Specific Herrick Urine Protein Urine Glucose (UA) Urine Ketones Urine Blood Urine Nitrite Ur Leukocyte Esterase Urine RBC Urine WBC Ur Squamous Epith Cells Urine Bacteria Hyaline Casts Urine Osmolality Ur Random Sodium Urine Opiates Screen Ur Buprenorphine Scrn Ur Oxycodone Screen Urine Methadone Screen Urine Fentanyl Screen Ur Barbiturates Screen Carbamazepine Ur Phencyclidine Scrn Ur Amphetamines Screen U Benzodiazepines Scrn Urine Cocaine Screen U Marijuana (THC) Screen COVID-19 (TRESA) COVID-19 Clin Com Influenza Type A (AMANDA) Influenza Type B (AMANDA) Influenza A & B Note TB Test (T-Spot) Com TB Test Nil Control TB Test Panel A TB Test Panel B TB Test Positive Cntr 10/27/24 10/28/24 10/28/24 16:14 06:32 10:50 WBC RBC Hgb Hct MCV MCH MCHC RDW Plt Count MPV Immature Gran % (Auto) Neut % (Auto) Lymph % (Auto) Cameron % (Auto) Eos % (Auto) Baso % (Auto) Lymph # (Auto) Cameron # (Auto) Eos # (Auto) Baso # (Auto) Abs Immat Gran (auto) Absolute Neuts (auto) Absolute Nucleated RBC Nucleated RBC % (auto) Smear Tech's Comments Hold Purple Top VBG pH VBG pCO2 VBG pO2 VBG HCO3 VBG O2 Saturation VBG Base Excess Sodium Potassium Chloride Carbon Dioxide Anion Gap BUN Creatinine Estim Creat Clear Calc Estimated GFR POC Glucose 156 H 195 H 288 H Random Glucose Estimat Average Glucose Hemoglobin A1c % Osmolality Lactic Acid Calcium Magnesium Iron TIBC % Saturation Unsat Iron Binding Total Bilirubin AST ALT Alkaline Phosphatase Total Protein Albumin Triglycerides Cholesterol LDL Cholesterol, Calc HDL Cholesterol Lipase TSH Free T4 Urine Color Urine Appearance Urine pH Ur Specific Herrick Urine Protein Urine Glucose (UA) Urine Ketones Urine Blood Urine Nitrite Ur Leukocyte Esterase Urine RBC Urine WBC Ur Squamous Epith Cells Urine Bacteria Hyaline Casts Urine Osmolality Ur Random Sodium Urine Opiates Screen Ur Buprenorphine Scrn Ur Oxycodone Screen Urine Methadone Screen Urine Fentanyl Screen Ur Barbiturates Screen Carbamazepine Ur Phencyclidine Scrn Ur Amphetamines Screen U Benzodiazepines Scrn Urine Cocaine Screen U Marijuana (THC) Screen COVID-19 (TRESA) COVID-19 Clin Com Influenza Type A (AMANDA) Influenza Type B (AMANDA) Influenza A & B Note TB Test (T-Spot) Com TB Test Nil Control TB Test Panel A TB Test Panel B TB Test Positive Cntrl 10/28/24 10/28/24 10/29/24 15:54 20:28 06:47 WBC RBC Hgb Hct MCV MCH MCHC RDW Plt Count MPV Immature Gran % (Auto) Neut % (Auto) Lymph % (Auto) Cameron % (Auto) Eos % (Auto) Baso % (Auto) Lymph # (Auto) Cameron # (Auto) Eos # (Auto) Baso # (Auto) Abs Immat Gran (auto) Absolute Neuts (auto) Absolute Nucleated RBC Nucleated RBC % (auto) Smear Tech's Comments Hold Purple Top VBG pH VBG pCO2 VBG pO2 VBG HCO3 VBG O2 Saturation VBG Base Excess Sodium Potassium Chloride Carbon Dioxide Anion Gap BUN Creatinine Estim Creat Clear Calc Estimated GFR POC Glucose 132 H 210 H 188 H Random Glucose Estimat Average Glucose Hemoglobin A1c % Osmolality Lactic Acid Calcium Magnesium Iron TIBC % Saturation Unsat Iron Binding Total Bilirubin AST ALT Alkaline Phosphatase Total Protein Albumin Triglycerides Cholesterol LDL Cholesterol, Calc HDL Cholesterol Lipase TSH Free T4 Urine Color Urine Appearance Urine pH Ur Specific Herrick Urine Protein Urine Glucose (UA) Urine Ketones Urine Blood Urine Nitrite Ur Leukocyte Esterase Urine RBC Urine WBC Ur Squamous Epith Cells Urine Bacteria Hyaline Casts Urine Osmolality Ur Random Sodium Urine Opiates Screen Ur Buprenorphine Scrn Ur Oxycodone Screen Urine Methadone Screen Urine Fentanyl Screen Ur Barbiturates Screen Carbamazepine Ur Phencyclidine Scrn Ur Amphetamines Screen U Benzodiazepines Scrn Urine Cocaine Screen U Marijuana (THC) Screen COVID-19 (TRESA) COVID-19 Clin Com Influenza Type A (AMANDA) Influenza Type B (AMANDA) Influenza A & B Note TB Test (T-Spot) Com TB Test Nil Control TB Test Panel A TB Test Panel B TB Test Positive Cntrl 10/29/24 10/29/24 10/29/24 11:16 15:42 16:24 WBC 11.0 H RBC 3.49 L Hgb 10.4 L Hct 29.9 L MCV 85.7 MCH 29.8 MCHC 34.8 RDW 13.7 Plt Count 271 MPV 8.8 L Immature Gran % (Auto) 0.5 H Neut % (Auto) 71.9 Lymph % (Auto) 14.5 L Cameron % (Auto) 11.9 H Eos % (Auto) 0.7 Baso % (Auto) 0.5 Lymph # (Auto) 1.6 Cameron # (Auto) 1.3 H Eos # (Auto) 0.1 Baso # (Auto) 0.1 Abs Immat Gran (auto) 0.05 H Absolute Neuts (auto) 7.9 Absolute Nucleated RBC 0.000 Nucleated RBC % (auto) 0.0 Smear Tech's Comments Hold Purple Top VBG pH VBG pCO2 VBG pO2 VBG HCO3 VBG O2 Saturation VBG Base Excess Sodium 133 L Potassium 4.7 Chloride 102 Carbon Dioxide 24 Anion Gap 12 BUN 39 H Creatinine 1.24 Estim Creat Clear Calc 27.3 Estimated GFR 42 POC Glucose 265 H 156 H Random Glucose 180 H Estimat Average Glucose Hemoglobin A1c % Osmolality Lactic Acid Calcium 8.9 Magnesium Iron TIBC % Saturation Unsat Iron Binding Total Bilirubin 0.4 AST 15 ALT 21 Alkaline Phosphatase 67 Total Protein 6.4 L Albumin 4.1 Triglycerides Cholesterol LDL Cholesterol, Calc HDL Cholesterol Lipase TSH Free T4 Urine Color Urine Appearance Urine pH Ur Specific Herrick Urine Protein Urine Glucose (UA) Urine Ketones Urine Blood Urine Nitrite Ur Leukocyte Esterase Urine RBC Urine WBC Ur Squamous Epith Cells Urine Bacteria Hyaline Casts Urine Osmolality Ur Random Sodium Urine Opiates Screen Ur Buprenorphine Scrn Ur Oxycodone Screen Urine Methadone Screen Urine Fentanyl Screen Ur Barbiturates Screen Carbamazepine Ur Phencyclidine Scrn Ur Amphetamines Screen U Benzodiazepines Scrn Urine Cocaine Screen U Marijuana (THC) Screen COVID-19 (TRESA) COVID-19 Clin Com Influenza Type A (AMANDA) Influenza Type B (AMANDA) Influenza A & B Note TB Test (T-Spot) Com TB Test Nil Control TB Test Panel A TB Test Panel B TB Test Positive Cntrl 10/30/24 10/30/24 10/30/24 06:46 11:13 16:09 WBC RBC Hgb Hct MCV MCH MCHC RDW Plt Count MPV Immature Gran % (Auto) Neut % (Auto) Lymph % (Auto) Cameron % (Auto) Eos % (Auto) Baso % (Auto) Lymph # (Auto) Cameron # (Auto) Eos # (Auto) Baso # (Auto) Abs Immat Gran (auto) Absolute Neuts (auto) Absolute Nucleated RBC Nucleated RBC % (auto) Smear Tech's Comments Hold Purple Top VBG pH VBG pCO2 VBG pO2 VBG HCO3 VBG O2 Saturation VBG Base Excess Sodium Potassium Chloride Carbon Dioxide Anion Gap BUN Creatinine Estim Creat Clear Calc Estimated GFR POC Glucose 195 H 194 H 143 H Random Glucose Estimat Average Glucose Hemoglobin A1c % Osmolality Lactic Acid Calcium Magnesium Iron TIBC % Saturation Unsat Iron Binding Total Bilirubin AST ALT Alkaline Phosphatase Total Protein Albumin Triglycerides Cholesterol LDL Cholesterol, Calc HDL Cholesterol Lipase TSH Free T4 Urine Color Urine Appearance Urine pH Ur Specific Herrick Urine Protein Urine Glucose (UA) Urine Ketones Urine Blood Urine Nitrite Ur Leukocyte Esterase Urine RBC Urine WBC Ur Squamous Epith Cells Urine Bacteria Hyaline Casts Urine Osmolality Ur Random Sodium Urine Opiates Screen Ur Buprenorphine Scrn Ur Oxycodone Screen Urine Methadone Screen Urine Fentanyl Screen Ur Barbiturates Screen Carbamazepine Ur Phencyclidine Scrn Ur Amphetamines Screen U Benzodiazepines Scrn Urine Cocaine Screen U Marijuana (THC) Screen COVID-19 (TRESA) COVID-19 Clin Com Influenza Type A (AMANDA) Influenza Type B (AMANDA) Influenza A & B Note TB Test (T-Spot) Com TB Test Nil Control TB Test Panel A TB Test Panel B TB Test Positive [facility] 10/30/24 10/30/24 10/31/24 17:25 19:55 06:33 WBC 11.2 H RBC 3.63 L Hgb 10.7 L Hct 31.4 L MCV 86.5 MCH 29.5 MCHC 34.1 RDW 13.5 Plt Count 288 MPV 8.9 L Immature Gran % (Auto) 0.5 H Neut % (Auto) 74.7 H Lymph % (Auto) 13.2 L Cameron % (Auto) 10.5 Eos % (Auto) 0.7 Baso % (Auto) 0.4 Lymph # (Auto) 1.5 Cameron # (Auto) 1.2 Eos # (Auto) 0.1 Baso # (Auto) 0.0 Abs Immat Gran (auto) 0.06 H Absolute Neuts (auto) 8.4 H Absolute Nucleated RBC 0.000 Nucleated RBC % (auto) 0.0 Smear Tech's Comments Hold Purple Top VBG pH VBG pCO2 VBG pO2 VBG HCO3 VBG O2 Saturation VBG Base Excess Sodium 136 Potassium 5.1 Chloride 101 Carbon Dioxide 26 Anion Gap 14 BUN 34 H Creatinine 1.17 Estim Creat Clear Calc 28.9 Estimated GFR 45 POC Glucose 244 H 173 H Random Glucose 225 H Estimat Average Glucose Hemoglobin A1c % Osmolality Lactic Acid Calcium 9.2 Magnesium Iron TIBC % Saturation Unsat Iron Binding Total Bilirubin 0.5 AST 15 ALT 23 Alkaline Phosphatase 64 Total Protein 6.8 Albumin 4.3 Triglycerides Cholesterol LDL Cholesterol, Calc HDL Cholesterol Lipase TSH Free T4 Urine Color Urine Appearance Urine pH Ur Specific Herrick Urine Protein Urine Glucose (UA) Urine Ketones Urine Blood Urine Nitrite Ur Leukocyte Esterase Urine RBC Urine WBC Ur Squamous Epith Cells Urine Bacteria Hyaline Casts Urine Osmolality Ur Random Sodium Urine Opiates Screen Ur Buprenorphine Scrn Ur Oxycodone Screen Urine Methadone Screen Urine Fentanyl Screen Ur Barbiturates Screen Carbamazepine Ur Phencyclidine Scrn Ur Amphetamines Screen U Benzodiazepines Scrn Urine Cocaine Screen U Marijuana (THC) Screen COVID-19 (TRESA) COVID-19 Clin Com Influenza Type A (AMANDA) Influenza Type B (AMANDA) Influenza A & B Note TB Test (T-Spot) Com TB Test Nil Control TB Test Panel A TB Test Panel B TB Test Positive [facility] 10/31/24 10/31/24 11/01/24 11:26 16:31 06:33 WBC RBC Hgb Hct MCV MCH MCHC RDW Plt Count MPV Immature Gran % (Auto) Neut % (Auto) Lymph % (Auto) Cameron % (Auto) Eos % (Auto) Baso % (Auto) Lymph # (Auto) Cameron # (Auto) Eos # (Auto) Baso # (Auto) Abs Immat Gran (auto) Absolute Neuts (auto) Absolute Nucleated RBC Nucleated RBC % (auto) Smear Tech's Comments Hold Purple Top VBG pH VBG pCO2 VBG pO2 VBG HCO3 VBG O2 Saturation VBG Base Excess Sodium Potassium Chloride Carbon Dioxide Anion Gap BUN Creatinine Estim Creat Clear Calc Estimated GFR POC Glucose 178 H 169 H 199 H Random Glucose Estimat Average Glucose Hemoglobin A1c % Osmolality Lactic Acid Calcium Magnesium Iron TIBC % Saturation Unsat Iron Binding Total Bilirubin AST ALT Alkaline Phosphatase Total Protein Albumin Triglycerides Cholesterol LDL Cholesterol, Calc HDL Cholesterol Lipase TSH Free T4 Urine Color Urine Appearance Urine pH Ur Specific Herrick Urine Protein Urine Glucose (UA) Urine Ketones Urine Blood Urine Nitrite Ur Leukocyte Esterase Urine RBC Urine WBC Ur Squamous Epith Cells Urine Bacteria Hyaline Casts Urine Osmolality Ur Random Sodium Urine Opiates Screen Ur Buprenorphine Scrn Ur Oxycodone Screen Urine Methadone Screen Urine Fentanyl Screen Ur Barbiturates Screen Carbamazepine Ur Phencyclidine Scrn Ur Amphetamines Screen U Benzodiazepines Scrn Urine Cocaine Screen U Marijuana (THC) Screen COVID-19 (TRESA) COVID-19 Clin Com Influenza Type A (AMANDA) Influenza Type B (AMANDA) Influenza A & B Note TB Test (T-Spot) Com TB Test Nil Control TB Test Panel A TB Test Panel B TB Test Positive Cntrl 11/01/24 11/01/24 11/01/24 11:05 16:24 19:41 WBC RBC Hgb Hct MCV MCH MCHC RDW Plt Count MPV Immature Gran % (Auto) Neut % (Auto) Lymph % (Auto) Cameron % (Auto) Eos % (Auto) Baso % (Auto) Lymph # (Auto) Cameron # (Auto) Eos # (Auto) Baso # (Auto) Abs Immat Gran (auto) Absolute Neuts (auto) Absolute Nucleated RBC Nucleated RBC % (auto) Smear Tech's Comments Hold Purple Top VBG pH VBG pCO2 VBG pO2 VBG HCO3 VBG O2 Saturation VBG Base Excess Sodium Potassium Chloride Carbon Dioxide Anion Gap BUN Creatinine Estim Creat Clear Calc Estimated GFR POC Glucose 257 H 124 H 209 H Random Glucose Estimat Average Glucose Hemoglobin A1c % Osmolality Lactic Acid Calcium Magnesium Iron TIBC % Saturation Unsat Iron Binding Total Bilirubin AST ALT Alkaline Phosphatase Total Protein Albumin Triglycerides Cholesterol LDL Cholesterol, Calc HDL Cholesterol Lipase TSH Free T4 Urine Color Urine Appearance Urine pH Ur Specific Herrick Urine Protein Urine Glucose (UA) Urine Ketones Urine Blood Urine Nitrite Ur Leukocyte Esterase Urine RBC Urine WBC Ur Squamous Epith Cells Urine Bacteria Hyaline Casts Urine Osmolality Ur Random Sodium Urine Opiates Screen Ur Buprenorphine Scrn Ur Oxycodone Screen Urine Methadone Screen Urine Fentanyl Screen Ur Barbiturates Screen Carbamazepine Ur Phencyclidine Scrn Ur Amphetamines Screen U Benzodiazepines Scrn Urine Cocaine Screen U Marijuana (THC) Screen COVID-19 (TRESA) COVID-19 Clin Com Influenza Type A (AMANDA) Influenza Type B (AMANDA) Influenza A & B Note TB Test (T-Spot) Com TB Test Nil Control TB Test Panel A TB Test Panel B TB Test Positive Cntrl 11/02/24 11/02/24 11/02/24 06:34 11:26 11:28 WBC RBC Hgb Hct MCV MCH MCHC RDW Plt Count MPV Immature Gran % (Auto) Neut % (Auto) Lymph % (Auto) Cameron % (Auto) Eos % (Auto) Baso % (Auto) Lymph # (Auto) Cameron # (Auto) Eos # (Auto) Baso # (Auto) Abs Immat Gran (auto) Absolute Neuts (auto) Absolute Nucleated RBC Nucleated RBC % (auto) Smear Tech's Comments Hold Purple Top VBG pH VBG pCO2 VBG pO2 VBG HCO3 VBG O2 Saturation VBG Base Excess Sodium Potassium Chloride Carbon Dioxide Anion Gap BUN Creatinine Estim Creat Clear Calc Estimated GFR POC Glucose 185 H 445 H* 469 H* Random Glucose Estimat Average Glucose Hemoglobin A1c % Osmolality Lactic Acid Calcium Magnesium Iron TIBC % Saturation Unsat Iron Binding Total Bilirubin AST ALT Alkaline Phosphatase Total Protein Albumin Triglycerides Cholesterol LDL Cholesterol, Calc HDL Cholesterol Lipase TSH Free T4 Urine Color Urine Appearance Urine pH Ur Specific Herrick Urine Protein Urine Glucose (UA) Urine Ketones Urine Blood Urine Nitrite Ur Leukocyte Esterase Urine RBC Urine WBC Ur Squamous Epith Cells Urine Bacteria Hyaline Casts Urine Osmolality Ur Random Sodium Urine Opiates Screen Ur Buprenorphine Scrn Ur Oxycodone Screen Urine Methadone Screen Urine Fentanyl Screen Ur Barbiturates Screen Carbamazepine Ur Phencyclidine Scrn Ur Amphetamines Screen U Benzodiazepines Scrn Urine Cocaine Screen U Marijuana (THC) Screen COVID-19 (TRESA) COVID-19 Clin Com Influenza Type A (AMANDA) Influenza Type B (AMANDA) Influenza A & B Note TB Test (T-Spot) Com TB Test Nil Control TB Test Panel A TB Test Panel B TB Test Positive [facility] 11/02/24 11/02/24 11/02/24 13:18 16:31 19:46 WBC RBC Hgb Hct MCV MCH MCHC RDW Plt Count MPV Immature Gran % (Auto) Neut % (Auto) Lymph % (Auto) Cameron % (Auto) Eos % (Auto) Baso % (Auto) Lymph # (Auto) Cameron # (Auto) Eos # (Auto) Baso # (Auto) Abs Immat Gran (auto) Absolute Neuts (auto) Absolute Nucleated RBC Nucleated RBC % (auto) Smear Tech's Comments Hold Purple Top VBG pH VBG pCO2 VBG pO2 VBG HCO3 VBG O2 Saturation VBG Base Excess Sodium Potassium Chloride Carbon Dioxide Anion Gap BUN Creatinine Estim Creat Clear Calc Estimated GFR POC Glucose 379 H* 206 H 153 H Random Glucose Estimat Average Glucose Hemoglobin A1c % Osmolality Lactic Acid Calcium Magnesium Iron TIBC % Saturation Unsat Iron Binding Total Bilirubin AST ALT Alkaline Phosphatase Total Protein Albumin Triglycerides Cholesterol LDL Cholesterol, Calc HDL Cholesterol Lipase TSH Free T4 Urine Color Urine Appearance Urine pH Ur Specific Herrick Urine Protein Urine Glucose (UA) Urine Ketones Urine Blood Urine Nitrite Ur Leukocyte Esterase Urine RBC Urine WBC Ur Squamous Epith Cells Urine Bacteria Hyaline Casts Urine Osmolality Ur Random Sodium Urine Opiates Screen Ur Buprenorphine Scrn Ur Oxycodone Screen Urine Methadone Screen Urine Fentanyl Screen Ur Barbiturates Screen Carbamazepine Ur Phencyclidine Scrn Ur Amphetamines Screen U Benzodiazepines Scrn Urine Cocaine Screen U Marijuana (THC) Screen COVID-19 (TRESA) COVID-19 Clin Com Influenza Type A (AMANDA) Influenza Type B (AMANDA) Influenza A & B Note TB Test (T-Spot) Com TB Test Nil Control TB Test Panel A TB Test Panel B TB Test Positive [facility] 11/02/24 11/02/24 11/02/24 20:13 20:14 20:18 WBC 6.8 RBC 3.44 L Hgb 10.4 L Hct 29.1 L MCV 84.6 MCH 30.2 MCHC 35.7 H RDW 13.2 Plt Count 286 MPV 8.6 L Immature Gran % (Auto) 0.4 Neut % (Auto) 59.4 Lymph % (Auto) 27.6 Cameron % (Auto) 11.3 H Eos % (Auto) 1.0 Baso % (Auto) 0.3 Lymph # (Auto) 1.9 Cameron # (Auto) 0.8 Eos # (Auto) 0.1 Baso # (Auto) 0.0 Abs Immat Gran (auto) 0.03 Absolute Neuts (auto) 4.1 Absolute Nucleated RBC 0.000 Nucleated RBC % (auto) 0.0 Smear Tech's Comments Hold Purple Top VBG pH 7.44 H VBG pCO2 37 VBG pO2 48 VBG HCO3 26 VBG O2 Saturation 76.0 VBG Base Excess 2.3 Sodium 133 L Potassium 4.7 Chloride 100 Carbon Dioxide 26 Anion Gap 12 BUN 33 H Creatinine 1.86 H Estim Creat Clear Calc 18.0 Estimated GFR 26 POC Glucose Random Glucose 135 H Estimat Average Glucose Hemoglobin A1c % Osmolality Lactic Acid 1.2 Calcium 9.3 Magnesium 2.2 Iron TIBC % Saturation Unsat Iron Binding Total Bilirubin 0.4 AST 16 ALT 25 Alkaline Phosphatase 79 Total Protein 7.1 Albumin 4.4 Triglycerides Cholesterol LDL Cholesterol, Calc HDL Cholesterol Lipase 37 TSH Free T4 Urine Color Urine Appearance Urine pH Ur Specific Herrick Urine Protein Urine Glucose (UA) Urine Ketones Urine Blood Urine Nitrite Ur Leukocyte Esterase Urine RBC Urine WBC Ur Squamous Epith Cells Urine Bacteria Hyaline Casts Urine Osmolality Ur Random Sodium Urine Opiates Screen Ur Buprenorphine Scrn Ur Oxycodone Screen Urine Methadone Screen Urine Fentanyl Screen Ur Barbiturates Screen Carbamazepine Ur Phencyclidine Scrn Ur Amphetamines Screen U Benzodiazepines Scrn Urine Cocaine Screen U Marijuana (THC) Screen COVID-19 (TRESA) COVID-19 Clin Com Influenza Type A (AMANDA) Influenza Type B (AMANDA) Influenza A & B Note TB Test (T-Spot) Com TB Test Nil Control TB Test Panel A TB Test Panel B TB Test Positive Cntrl 11/02/24 11/02/24 11/03/24 20:20 21:38 06:38 WBC RBC Hgb Hct MCV MCH MCHC RDW Plt Count MPV Immature Gran % (Auto) Neut % (Auto) Lymph % (Auto) Cameron % (Auto) Eos % (Auto) Baso % (Auto) Lymph # (Auto) Cameron # (Auto) Eos # (Auto) Baso # (Auto) Abs Immat Gran (auto) Absolute Neuts (auto) Absolute Nucleated RBC Nucleated RBC % (auto) Smear Tech's Comments Hold Purple Top VBG pH VBG pCO2 VBG pO2 VBG HCO3 VBG O2 Saturation VBG Base Excess Sodium Potassium Chloride Carbon Dioxide Anion Gap BUN Creatinine Estim Creat Clear Calc Estimated GFR POC Glucose 123 H 164 H Random Glucose Estimat Average Glucose Hemoglobin A1c % Osmolality Lactic Acid Calcium Magnesium Iron TIBC % Saturation Unsat Iron Binding Total Bilirubin AST ALT Alkaline Phosphatase Total Protein Albumin Triglycerides Cholesterol LDL Cholesterol, Calc HDL Cholesterol Lipase TSH Free T4 Urine Color Yellow Urine Appearance Clear Urine pH 6.5 Ur Specific Herrick 1.015 Urine Protein Negative Urine Glucose (UA) Negative Urine Ketones Negative Urine Blood Negative Urine Nitrite Negative Ur Leukocyte Esterase Large (3+) H Urine RBC 0-2 Urine WBC 11-20 H Ur Squamous Epith Cells 0-2 Urine Bacteria None Seen Hyaline Casts 0-2 Urine Osmolality Ur Random Sodium Urine Opiates Screen Ur Buprenorphine Scrn Ur Oxycodone Screen Urine Methadone Screen Urine Fentanyl Screen Ur Barbiturates Screen Carbamazepine Ur Phencyclidine Scrn Ur Amphetamines Screen U Benzodiazepines Scrn Urine Cocaine Screen U Marijuana (THC) Screen COVID-19 (TRESA) COVID-19 Clin Com Influenza Type A (AMANDA) Influenza Type B (AMANDA) Influenza A & B Note TB Test (T-Spot) Com TB Test Nil Control TB Test Panel A TB Test Panel B TB Test Positive Cntrl 11/03/24 11/03/24 11/04/24 11:23 16:03 06:47 WBC RBC Hgb Hct MCV MCH MCHC RDW Plt Count MPV Immature Gran % (Auto) Neut % (Auto) Lymph % (Auto) Cameron % (Auto) Eos % (Auto) Baso % (Auto) Lymph # (Auto) Cameron # (Auto) Eos # (Auto) Baso # (Auto) Abs Immat Gran (auto) Absolute Neuts (auto) Absolute Nucleated RBC Nucleated RBC % (auto) Smear Tech's Comments Hold Purple Top VBG pH VBG pCO2 VBG pO2 VBG HCO3 VBG O2 Saturation VBG Base Excess Sodium Potassium Chloride Carbon Dioxide Anion Gap BUN Creatinine Estim Creat Clear Calc Estimated GFR POC Glucose 238 H 185 H 148 H Random Glucose Estimat Average Glucose Hemoglobin A1c % Osmolality Lactic Acid Calcium Magnesium Iron TIBC % Saturation Unsat Iron Binding Total Bilirubin AST ALT Alkaline Phosphatase Total Protein Albumin Triglycerides Cholesterol LDL Cholesterol, Calc HDL Cholesterol Lipase TSH Free T4 Urine Color Urine Appearance Urine pH Ur Specific Herrick Urine Protein Urine Glucose (UA) Urine Ketones Urine Blood Urine Nitrite Ur Leukocyte Esterase Urine RBC Urine WBC Ur Squamous Epith Cells Urine Bacteria Hyaline Casts Urine Osmolality Ur Random Sodium Urine Opiates Screen Ur Buprenorphine Scrn Ur Oxycodone Screen Urine Methadone Screen Urine Fentanyl Screen Ur Barbiturates Screen Carbamazepine Ur Phencyclidine Scrn Ur Amphetamines Screen U Benzodiazepines Scrn Urine Cocaine Screen U Marijuana (THC) Screen COVID-19 (TRESA) COVID-19 Clin Com Influenza Type A (AMANDA) Influenza Type B (AMANDA) Influenza A & B Note TB Test (T-Spot) Com TB Test Nil Control TB Test Panel A TB Test Panel B TB Test Positive Cntrl 11/04/24 11/04/24 11/04/24 09:52 11:20 16:30 WBC RBC Hgb Hct MCV MCH MCHC RDW Plt Count MPV Immature Gran % (Auto) Neut % (Auto) Lymph % (Auto) Cameron % (Auto) Eos % (Auto) Baso % (Auto) Lymph # (Auto) Cameron # (Auto) Eos # (Auto) Baso # (Auto) Abs Immat Gran (auto) Absolute Neuts (auto) Absolute Nucleated RBC Nucleated RBC % (auto) Smear Tech's Comments Hold Purple Top VBG pH VBG pCO2 VBG pO2 VBG HCO3 VBG O2 Saturation VBG Base Excess Sodium 134 L Potassium 5.5 H Chloride 102 Carbon Dioxide 22 Anion Gap 16 BUN 35 H Creatinine 1.15 Estim Creat Clear Calc 29.2 Estimated GFR 46 POC Glucose 178 H 139 H Random Glucose 232 H Estimat Average Glucose Hemoglobin A1c % Osmolality Lactic Acid Calcium 9.1 Magnesium Iron TIBC % Saturation Unsat Iron Binding Total Bilirubin 0.3 AST 25 ALT 25 Alkaline Phosphatase 67 Total Protein 6.9 Albumin 4.2 Triglycerides Cholesterol LDL Cholesterol, Calc HDL Cholesterol Lipase TSH Free T4 Urine Color Urine Appearance Urine pH Ur Specific Herrick Urine Protein Urine Glucose (UA) Urine Ketones Urine Blood Urine Nitrite Ur Leukocyte Esterase Urine RBC Urine WBC Ur Squamous Epith Cells Urine Bacteria Hyaline Casts Urine Osmolality Ur Random Sodium Urine Opiates Screen Ur Buprenorphine Scrn Ur Oxycodone Screen Urine Methadone Screen Urine Fentanyl Screen Ur Barbiturates Screen Carbamazepine Ur Phencyclidine Scrn Ur Amphetamines Screen U Benzodiazepines Scrn Urine Cocaine Screen U Marijuana (THC) Screen COVID-19 (TRESA) COVID-19 Clin Com Influenza Type A (AMANDA) Influenza Type B (AMANDA) Influenza A & B Note TB Test (T-Spot) Com TB Test Nil Control TB Test Panel A TB Test Panel B TB Test Positive [facility] 11/04/24 11/04/24 11/05/24 16:53 21:12 06:28 WBC RBC Hgb Hct MCV MCH MCHC RDW Plt Count MPV Immature Gran % (Auto) Neut % (Auto) Lymph % (Auto) Cameron % (Auto) Eos % (Auto) Baso % (Auto) Lymph # (Auto) Cameron # (Auto) Eos # (Auto) Baso # (Auto) Abs Immat Gran (auto) Absolute Neuts (auto) Absolute Nucleated RBC Nucleated RBC % (auto) Smear Tech's Comments Hold Purple Top VBG pH VBG pCO2 VBG pO2 VBG HCO3 VBG O2 Saturation VBG Base Excess Sodium Potassium Chloride Carbon Dioxide Anion Gap BUN Creatinine Estim Creat Clear Calc Estimated GFR POC Glucose 192 H 199 H 155 H Random Glucose Estimat Average Glucose Hemoglobin A1c % Osmolality Lactic Acid Calcium Magnesium Iron TIBC % Saturation Unsat Iron Binding Total Bilirubin AST ALT Alkaline Phosphatase Total Protein Albumin Triglycerides Cholesterol LDL Cholesterol, Calc HDL Cholesterol Lipase TSH Free T4 Urine Color Urine Appearance Urine pH Ur Specific Herrick Urine Protein Urine Glucose (UA) Urine Ketones Urine Blood Urine Nitrite Ur Leukocyte Esterase Urine RBC Urine WBC Ur Squamous Epith Cells Urine Bacteria Hyaline Casts Urine Osmolality Ur Random Sodium Urine Opiates Screen Ur Buprenorphine Scrn Ur Oxycodone Screen Urine Methadone Screen Urine Fentanyl Screen Ur Barbiturates Screen Carbamazepine Ur Phencyclidine Scrn Ur Amphetamines Screen U Benzodiazepines Scrn Urine Cocaine Screen U Marijuana (THC) Screen COVID-19 (TRESA) COVID-19 Clin Com Influenza Type A (AMANDA) Influenza Type B (AMANDA) Influenza A & B Note TB Test (T-Spot) Com TB Test Nil Control TB Test Panel A TB Test Panel B TB Test Positive [facility] 11/05/24 11/05/24 11/05/24 11:14 16:10 20:54 WBC RBC Hgb Hct MCV MCH MCHC RDW Plt Count MPV Immature Gran % (Auto) Neut % (Auto) Lymph % (Auto) Cameron % (Auto) Eos % (Auto) Baso % (Auto) Lymph # (Auto) Cameron # (Auto) Eos # (Auto) Baso # (Auto) Abs Immat Gran (auto) Absolute Neuts (auto) Absolute Nucleated RBC Nucleated RBC % (auto) Smear Tech's Comments Hold Purple Top VBG pH VBG pCO2 VBG pO2 VBG HCO3 VBG O2 Saturation VBG Base Excess Sodium Potassium Chloride Carbon Dioxide Anion Gap BUN Creatinine Estim Creat Clear Calc Estimated GFR POC Glucose 145 H 145 H 205 H Random Glucose Estimat Average Glucose Hemoglobin A1c % Osmolality Lactic Acid Calcium Magnesium Iron TIBC % Saturation Unsat Iron Binding Total Bilirubin AST ALT Alkaline Phosphatase Total Protein Albumin Triglycerides Cholesterol LDL Cholesterol, Calc HDL Cholesterol Lipase TSH Free T4 Urine Color Urine Appearance Urine pH Ur Specific Herrick Urine Protein Urine Glucose (UA) Urine Ketones Urine Blood Urine Nitrite Ur Leukocyte Esterase Urine RBC Urine WBC Ur Squamous Epith Cells Urine Bacteria Hyaline Casts Urine Osmolality Ur Random Sodium Urine Opiates Screen Ur Buprenorphine Scrn Ur Oxycodone Screen Urine Methadone Screen Urine Fentanyl Screen Ur Barbiturates Screen Carbamazepine Ur Phencyclidine Scrn Ur Amphetamines Screen U Benzodiazepines Scrn Urine Cocaine Screen U Marijuana (THC) Screen COVID-19 (TRESA) COVID-19 Clin Com Influenza Type A (AMANDA) Influenza Type B (AMANDA) Influenza A & B Note TB Test (T-Spot) Com TB Test Nil Control TB Test Panel A TB Test Panel B TB Test Positive Cntrl 11/06/24 11/06/24 11/06/24 06:29 11:28 16:19 WBC RBC Hgb Hct MCV MCH MCHC RDW Plt Count MPV Immature Gran % (Auto) Neut % (Auto) Lymph % (Auto) Cameron % (Auto) Eos % (Auto) Baso % (Auto) Lymph # (Auto) Cameron # (Auto) Eos # (Auto) Baso # (Auto) Abs Immat Gran (auto) Absolute Neuts (auto) Absolute Nucleated RBC Nucleated RBC % (auto) Smear Tech's Comments Hold Purple Top VBG pH VBG pCO2 VBG pO2 VBG HCO3 VBG O2 Saturation VBG Base Excess Sodium Potassium Chloride Carbon Dioxide Anion Gap BUN Creatinine Estim Creat Clear Calc Estimated GFR POC Glucose 186 H 166 H 168 H Random Glucose Estimat Average Glucose Hemoglobin A1c % Osmolality Lactic Acid Calcium Magnesium Iron TIBC % Saturation Unsat Iron Binding Total Bilirubin AST ALT Alkaline Phosphatase Total Protein Albumin Triglycerides Cholesterol LDL Cholesterol, Calc HDL Cholesterol Lipase TSH Free T4 Urine Color Urine Appearance Urine pH Ur Specific Herrick Urine Protein Urine Glucose (UA) Urine Ketones Urine Blood Urine Nitrite Ur Leukocyte Esterase Urine RBC Urine WBC Ur Squamous Epith Cells Urine Bacteria Hyaline Casts Urine Osmolality Ur Random Sodium Urine Opiates Screen Ur Buprenorphine Scrn Ur Oxycodone Screen Urine Methadone Screen Urine Fentanyl Screen Ur Barbiturates Screen Carbamazepine Ur Phencyclidine Scrn Ur Amphetamines Screen U Benzodiazepines Scrn Urine Cocaine Screen U Marijuana (THC) Screen COVID-19 (TRESA) COVID-19 Clin Com Influenza Type A (AMANDA) Influenza Type B (AMANDA) Influenza A & B Note TB Test (T-Spot) Com TB Test Nil Control TB Test Panel A TB Test Panel B TB Test Positive [facility] 11/06/24 11/07/24 11/07/24 21:20 06:20 10:45 WBC RBC Hgb Hct MCV MCH MCHC RDW Plt Count MPV Immature Gran % (Auto) Neut % (Auto) Lymph % (Auto) Cameron % (Auto) Eos % (Auto) Baso % (Auto) Lymph # (Auto) Cameron # (Auto) Eos # (Auto) Baso # (Auto) Abs Immat Gran (auto) Absolute Neuts (auto) Absolute Nucleated RBC Nucleated RBC % (auto) Smear Tech's Comments Hold Purple Top VBG pH VBG pCO2 VBG pO2 VBG HCO3 VBG O2 Saturation VBG Base Excess Sodium Potassium Chloride Carbon Dioxide Anion Gap BUN Creatinine Estim Creat Clear Calc Estimated GFR POC Glucose 82 125 H 159 H Random Glucose Estimat Average Glucose Hemoglobin A1c % Osmolality Lactic Acid Calcium Magnesium Iron TIBC % Saturation Unsat Iron Binding Total Bilirubin AST ALT Alkaline Phosphatase Total Protein Albumin Triglycerides Cholesterol LDL Cholesterol, Calc HDL Cholesterol Lipase TSH Free T4 Urine Color Urine Appearance Urine pH Ur Specific Herrick Urine Protein Urine Glucose (UA) Urine Ketones Urine Blood Urine Nitrite Ur Leukocyte Esterase Urine RBC Urine WBC Ur Squamous Epith Cells Urine Bacteria Hyaline Casts Urine Osmolality Ur Random Sodium Urine Opiates Screen Ur Buprenorphine Scrn Ur Oxycodone Screen Urine Methadone Screen Urine Fentanyl Screen Ur Barbiturates Screen Carbamazepine Ur Phencyclidine Scrn Ur Amphetamines Screen U Benzodiazepines Scrn Urine Cocaine Screen U Marijuana (THC) Screen COVID-19 (TRESA) COVID-19 Clin Com Influenza Type A (AMANDA) Influenza Type B (AMANDA) Influenza A & B Note TB Test (T-Spot) Com TB Test Nil Control TB Test Panel A TB Test Panel B TB Test Positive [facility] 07/11/07/24 11/08/24 16:17 20:21 06:25 WBC RBC Hgb Hct MCV MCH MCHC RDW Plt Count MPV Immature Gran % (Auto) Neut % (Auto) Lymph % (Auto) Cameron % (Auto) Eos % (Auto) Baso % (Auto) Lymph # (Auto) Cameron # (Auto) Eos # (Auto) Baso # (Auto) Abs Immat Gran (auto) Absolute Neuts (auto) Absolute Nucleated RBC Nucleated RBC % (auto) Smear Tech's Comments Hold Purple Top VBG pH VBG pCO2 VBG pO2 VBG HCO3 VBG O2 Saturation VBG Base Excess Sodium Potassium Chloride Carbon Dioxide Anion Gap BUN Creatinine Estim Creat Clear Calc Estimated GFR POC Glucose 115 142 H 147 H Random Glucose Estimat Average Glucose Hemoglobin A1c % Osmolality Lactic Acid Calcium Magnesium Iron TIBC % Saturation Unsat Iron Binding Total Bilirubin AST ALT Alkaline Phosphatase Total Protein Albumin Triglycerides Cholesterol LDL Cholesterol, Calc HDL Cholesterol Lipase TSH Free T4 Urine Color Urine Appearance Urine pH Ur Specific Herrick Urine Protein Urine Glucose (UA) Urine Ketones Urine Blood Urine Nitrite Ur Leukocyte Esterase Urine RBC Urine WBC Ur Squamous Epith Cells Urine Bacteria Hyaline Casts Urine Osmolality Ur Random Sodium Urine Opiates Screen Ur Buprenorphine Scrn Ur Oxycodone Screen Urine Methadone Screen Urine Fentanyl Screen Ur Barbiturates Screen Carbamazepine Ur Phencyclidine Scrn Ur Amphetamines Screen U Benzodiazepines Scrn Urine Cocaine Screen U Marijuana (THC) Screen COVID-19 ([facility]ES[facility]) COVID-19 Clin Com Influenza Type A (AMANDA) Influenza Type B (AMANDA) Influenza A & B Note TB Test (T-Spot) Com TB Test Nil Control TB Test Panel A TB Test Panel B TB Test Positive [facility] 11/08/24 11/08/24 11/08/24 11:07 16:51 21:23 WBC RBC Hgb Hct MCV MCH MCHC RDW Plt Count MPV Immature Gran % (Auto) Neut % (Auto) Lymph % (Auto) Cameron % (Auto) Eos % (Auto) Baso % (Auto) Lymph # (Auto) Cameron # (Auto) Eos # (Auto) Baso # (Auto) Abs Immat Gran (auto) Absolute Neuts (auto) Absolute Nucleated RBC Nucleated RBC % (auto) Smear Tech's Comments Hold Purple Top VBG pH VBG pCO2 VBG pO2 VBG HCO3 VBG O2 Saturation VBG Base Excess Sodium Potassium Chloride Carbon Dioxide Anion Gap BUN Creatinine Estim Creat Clear Calc Estimated GFR POC Glucose 245 H 115 255 H Random Glucose Estimat Average Glucose Hemoglobin A1c % Osmolality Lactic Acid Calcium Magnesium Iron TIBC % Saturation Unsat Iron Binding Total Bilirubin AST ALT Alkaline Phosphatase Total Protein Albumin Triglycerides Cholesterol LDL Cholesterol, Calc HDL Cholesterol Lipase TSH Free T4 Urine Color Urine Appearance Urine pH Ur Specific Herrick Urine Protein Urine Glucose (UA) Urine Ketones Urine Blood Urine Nitrite Ur Leukocyte Esterase Urine RBC Urine WBC Ur Squamous Epith Cells Urine Bacteria Hyaline Casts Urine Osmolality Ur Random Sodium Urine Opiates Screen Ur Buprenorphine Scrn Ur Oxycodone Screen Urine Methadone Screen Urine Fentanyl Screen Ur Barbiturates Screen Carbamazepine Ur Phencyclidine Scrn Ur Amphetamines Screen U Benzodiazepines Scrn Urine Cocaine Screen U Marijuana (THC) Screen COVID-19 ([facility]) COVID-19 Clin Com Influenza Type A (AMANDA) Influenza Type B (AMANDA) Influenza A & B Note TB Test (T-Spot) Com TB Test Nil Control TB Test Panel A TB Test Panel B TB Test Positive Cntr 11/09/24 11/09/24 11/09/24 06:39 11:02 16:04 WBC RBC Hgb Hct MCV MCH MCHC RDW Plt Count MPV Immature Gran % (Auto) Neut % (Auto) Lymph % (Auto) Cameron % (Auto) Eos % (Auto) Baso % (Auto) Lymph # (Auto) Cameron # (Auto) Eos # (Auto) Baso # (Auto) Abs Immat Gran (auto) Absolute Neuts (auto) Absolute Nucleated RBC Nucleated RBC % (auto) Smear Tech's Comments Hold Purple Top VBG pH VBG pCO2 VBG pO2 VBG HCO3 VBG O2 Saturation VBG Base Excess Sodium Potassium Chloride Carbon Dioxide Anion Gap BUN Creatinine Estim Creat Clear Calc Estimated GFR POC Glucose 137 H 302 H 77 Random Glucose Estimat Average Glucose Hemoglobin A1c % Osmolality Lactic Acid Calcium Magnesium Iron TIBC % Saturation Unsat Iron Binding Total Bilirubin AST ALT Alkaline Phosphatase Total Protein Albumin Triglycerides Cholesterol LDL Cholesterol, Calc HDL Cholesterol Lipase TSH Free T4 Urine Color Urine Appearance Urine pH Ur Specific Herrick Urine Protein Urine Glucose (UA) Urine Ketones Urine Blood Urine Nitrite Ur Leukocyte Esterase Urine RBC Urine WBC Ur Squamous Epith Cells Urine Bacteria Hyaline Casts Urine Osmolality Ur Random Sodium Urine Opiates Screen Ur Buprenorphine Scrn Ur Oxycodone Screen Urine Methadone Screen Urine Fentanyl Screen Ur Barbiturates Screen Carbamazepine Ur Phencyclidine Scrn Ur Amphetamines Screen U Benzodiazepines Scrn Urine Cocaine Screen U Marijuana (THC) Screen COVID-19 ([facility]) COVID-19 Clin Com Influenza Type A (AMANDA) Influenza Type B (AMANDA) Influenza A & B Note TB Test (T-Spot) Com TB Test Nil Control TB Test Panel A TB Test Panel B TB Test Positive [facility] 11/09/24 11/10/24 11/10/24 20:29 06:37 11:29 WBC RBC Hgb Hct MCV MCH MCHC RDW Plt Count MPV Immature Gran % (Auto) Neut % (Auto) Lymph % (Auto) Cameron % (Auto) Eos % (Auto) Baso % (Auto) Lymph # (Auto) Cameron # (Auto) Eos # (Auto) Baso # (Auto) Abs Immat Gran (auto) Absolute Neuts (auto) Absolute Nucleated RBC Nucleated RBC % (auto) Smear Tech's Comments Hold Purple Top VBG pH VBG pCO2 VBG pO2 VBG HCO3 VBG O2 Saturation VBG Base Excess Sodium Potassium Chloride Carbon Dioxide Anion Gap BUN Creatinine Estim Creat Clear Calc Estimated GFR POC Glucose 242 H 187 H 230 H Random Glucose Estimat Average Glucose Hemoglobin A1c % Osmolality Lactic Acid Calcium Magnesium Iron TIBC % Saturation Unsat Iron Binding Total Bilirubin AST ALT Alkaline Phosphatase Total Protein Albumin Triglycerides Cholesterol LDL Cholesterol, Calc HDL Cholesterol Lipase TSH Free T4 Urine Color Urine Appearance Urine pH Ur Specific Herrick Urine Protein Urine Glucose (UA) Urine Ketones Urine Blood Urine Nitrite Ur Leukocyte Esterase Urine RBC Urine WBC Ur Squamous Epith Cells Urine Bacteria Hyaline Casts Urine Osmolality Ur Random Sodium Urine Opiates Screen Ur Buprenorphine Scrn Ur Oxycodone Screen Urine Methadone Screen Urine Fentanyl Screen Ur Barbiturates Screen Carbamazepine Ur Phencyclidine Scrn Ur Amphetamines Screen U Benzodiazepines Scrn Urine Cocaine Screen U Marijuana (THC) Screen COVID-19 ([facility]) COVID-19 Clin Com Influenza Type A (AMANDA) Influenza Type B (AMANDA) Influenza A & B Note TB Test (T-Spot) Com TB Test Nil Control TB Test Panel A TB Test Panel B TB Test Positive [facility] 11/10/24 11/10/24 11/11/24 16:24 20:05 06:32 WBC RBC Hgb Hct MCV MCH MCHC RDW Plt Count MPV Immature Gran % (Auto) Neut % (Auto) Lymph % (Auto) Cameron % (Auto) Eos % (Auto) Baso % (Auto) Lymph # (Auto) Cameron # (Auto) Eos # (Auto) Baso # (Auto) Abs Immat Gran (auto) Absolute Neuts (auto) Absolute Nucleated RBC Nucleated RBC % (auto) Smear Tech's Comments Hold Purple Top VBG pH VBG pCO2 VBG pO2 VBG HCO3 VBG O2 Saturation VBG Base Excess Sodium Potassium Chloride Carbon Dioxide Anion Gap BUN Creatinine Estim Creat Clear Calc Estimated GFR POC Glucose 105 126 H 159 H Random Glucose Estimat Average Glucose Hemoglobin A1c % Osmolality Lactic Acid Calcium Magnesium Iron TIBC % Saturation Unsat Iron Binding Total Bilirubin AST ALT Alkaline Phosphatase Total Protein Albumin Triglycerides Cholesterol LDL Cholesterol, Calc HDL Cholesterol Lipase TSH Free T4 Urine Color Urine Appearance Urine pH Ur Specific Herrick Urine Protein Urine Glucose (UA) Urine Ketones Urine Blood Urine Nitrite Ur Leukocyte Esterase Urine RBC Urine WBC Ur Squamous Epith Cells Urine Bacteria Hyaline Casts Urine Osmolality Ur Random Sodium Urine Opiates Screen Ur Buprenorphine Scrn Ur Oxycodone Screen Urine Methadone Screen Urine Fentanyl Screen Ur Barbiturates Screen Carbamazepine Ur Phencyclidine Scrn Ur Amphetamines Screen U Benzodiazepines Scrn Urine Cocaine Screen U Marijuana (THC) Screen COVID-19 ([facility]) COVID-19 Clin Com Influenza Type A (AMANDA) Influenza Type B (AMANDA) Influenza A & B Note TB Test (T-Spot) Com TB Test Nil Control TB Test Panel A TB Test Panel B TB Test Positive Cntrl 11/11/24 11/11/24 11/11/24 11:17 16:17 20:14 WBC RBC Hgb Hct MCV MCH MCHC RDW Plt Count MPV Immature Gran % (Auto) Neut % (Auto) Lymph % (Auto) Cameron % (Auto) Eos % (Auto) Baso % (Auto) Lymph # (Auto) Cameron # (Auto) Eos # (Auto) Baso # (Auto) Abs Immat Gran (auto) Absolute Neuts (auto) Absolute Nucleated RBC Nucleated RBC % (auto) Smear Tech's Comments Hold Purple Top VBG pH VBG pCO2 VBG pO2 VBG HCO3 VBG O2 Saturation VBG Base Excess Sodium Potassium Chloride Carbon Dioxide Anion Gap BUN Creatinine Estim Creat Clear Calc Estimated GFR POC Glucose 140 H 130 H 194 H Random Glucose Estimat Average Glucose Hemoglobin A1c % Osmolality Lactic Acid Calcium Magnesium Iron TIBC % Saturation Unsat Iron Binding Total Bilirubin AST ALT Alkaline Phosphatase Total Protein Albumin Triglycerides Cholesterol LDL Cholesterol, Calc HDL Cholesterol Lipase TSH Free T4 Urine Color Urine Appearance Urine pH Ur Specific Herrick Urine Protein Urine Glucose (UA) Urine Ketones Urine Blood Urine Nitrite Ur Leukocyte Esterase Urine RBC Urine WBC Ur Squamous Epith Cells Urine Bacteria Hyaline Casts Urine Osmolality Ur Random Sodium Urine Opiates Screen Ur Buprenorphine Scrn Ur Oxycodone Screen Urine Methadone Screen Urine Fentanyl Screen Ur Barbiturates Screen Carbamazepine Ur Phencyclidine Scrn Ur Amphetamines Screen U Benzodiazepines Scrn Urine Cocaine Screen U Marijuana (THC) Screen COVID-19 ([facility]) COVID-19 Clin Com Influenza Type A (AMANDA) Influenza Type B (AMANDA) Influenza A & B Note TB Test (T-Spot) Com TB Test Nil Control TB Test Panel A TB Test Panel B TB Test Positive Cntrl 11/12/24 11/12/24 11/12/24 06:32 11:19 16:20 WBC RBC Hgb Hct MCV MCH MCHC RDW Plt Count MPV Immature Gran % (Auto) Neut % (Auto) Lymph % (Auto) Cameron % (Auto) Eos % (Auto) Baso % (Auto) Lymph # (Auto) Cameron # (Auto) Eos # (Auto) Baso # (Auto) Abs Immat Gran (auto) Absolute Neuts (auto) Absolute Nucleated RBC Nucleated RBC % (auto) Smear Tech's Comments Hold Purple Top VBG pH VBG pCO2 VBG pO2 VBG HCO3 VBG O2 Saturation VBG Base Excess Sodium Potassium Chloride Carbon Dioxide Anion Gap BUN Creatinine Estim Creat Clear Calc Estimated GFR POC Glucose 171 H 121 H 170 H Random Glucose Estimat Average Glucose Hemoglobin A1c % Osmolality Lactic Acid Calcium Magnesium Iron TIBC % Saturation Unsat Iron Binding Total Bilirubin AST ALT Alkaline Phosphatase Total Protein Albumin Triglycerides Cholesterol LDL Cholesterol, Calc HDL Cholesterol Lipase TSH Free T4 Urine Color Urine Appearance Urine pH Ur Specific Herrick Urine Protein Urine Glucose (UA) Urine Ketones Urine Blood Urine Nitrite Ur Leukocyte Esterase Urine RBC Urine WBC Ur Squamous Epith Cells Urine Bacteria Hyaline Casts Urine Osmolality Ur Random Sodium Urine Opiates Screen Ur Buprenorphine Scrn Ur Oxycodone Screen Urine Methadone Screen Urine Fentanyl Screen Ur Barbiturates Screen Carbamazepine Ur Phencyclidine Scrn Ur Amphetamines Screen U Benzodiazepines Scrn Urine Cocaine Screen U Marijuana (THC) Screen COVID-19 ([facility]ESA) COVID-19 Clin Com Influenza Type A (AMANDA) Influenza Type B (AMANDA) Influenza A & B Note TB Test (T-Spot) Com TB Test Nil Control TB Test Panel A TB Test Panel B TB Test Positive [facility] 11/13/24 11/13/24 11/13/24 06:41 09:09 11:20 WBC RBC Hgb Hct MCV MCH MCHC RDW Plt Count MPV Immature Gran % (Auto) Neut % (Auto) Lymph % (Auto) Cameron % (Auto) Eos % (Auto) Baso % (Auto) Lymph # (Auto) Cameron # (Auto) Eos # (Auto) Baso # (Auto) Abs Immat Gran (auto) Absolute Neuts (auto) Absolute Nucleated RBC Nucleated RBC % (auto) Smear Tech's Comments Hold Purple Top VBG pH VBG pCO2 VBG pO2 VBG HCO3 VBG O2 Saturation VBG Base Excess Sodium Potassium Chloride Carbon Dioxide Anion Gap BUN Creatinine Estim Creat Clear Calc Estimated GFR POC Glucose 173 H 181 H Random Glucose Estimat Average Glucose Hemoglobin A1c % Osmolality Lactic Acid Calcium Magnesium Iron TIBC % Saturation Unsat Iron Binding Total Bilirubin AST ALT Alkaline Phosphatase Total Protein Albumin Triglycerides Cholesterol LDL Cholesterol, Calc HDL Cholesterol Lipase TSH Free T4 Urine Color Urine Appearance Urine pH Ur Specific Herrick Urine Protein Urine Glucose (UA) Urine Ketones Urine Blood Urine Nitrite Ur Leukocyte Esterase Urine RBC Urine WBC Ur Squamous Epith Cells Urine Bacteria Hyaline Casts Urine Osmolality Ur Random Sodium Urine Opiates Screen Ur Buprenorphine Scrn Ur Oxycodone Screen Urine Methadone Screen Urine Fentanyl Screen Ur Barbiturates Screen Carbamazepine 9.1 Ur Phencyclidine Scrn Ur Amphetamines Screen U Benzodiazepines Scrn Urine Cocaine Screen U Marijuana (THC) Screen COVID-19 ([facility]A) COVID-19 Clin Com Influenza Type A (AMANDA) Influenza Type B (AMANDA) Influenza A & B Note TB Test (T-Spot) Com TB Test Nil Control TB Test Panel A TB Test Panel B TB Test Positive [facility] 11/13/24 11/13/24 11/13/24 11:27 11:30 15:40 WBC RBC Hgb Hct MCV MCH MCHC RDW Plt Count MPV Immature Gran % (Auto) Neut % (Auto) Lymph % (Auto) Cameron % (Auto) Eos % (Auto) Baso % (Auto) Lymph # (Auto) Cameron # (Auto) Eos # (Auto) Baso # (Auto) Abs Immat Gran (auto) Absolute Neuts (auto) Absolute Nucleated RBC Nucleated RBC % (auto) Smear Tech's Comments Hold Purple Top SEE NOTE VBG pH VBG pCO2 VBG pO2 VBG HCO3 VBG O2 Saturation VBG Base Excess Sodium 127 L Potassium 4.8 Chloride 95 L Carbon Dioxide 24 Anion Gap 13 BUN 21 H Creatinine 0.85 Estim Creat Clear Calc 39.5 Estimated GFR > 60 POC Glucose Random Glucose 191 H Estimat Average Glucose Hemoglobin A1c % Osmolality 271 L Lactic Acid Calcium 9.4 Magnesium Iron TIBC % Saturation Unsat Iron Binding Total Bilirubin 0.5 AST 16 ALT 21 Alkaline Phosphatase 68 Total Protein 7.2 Albumin 4.6 Triglycerides Cholesterol LDL Cholesterol, Calc HDL Cholesterol Lipase TSH Free T4 Urine Color Urine Appearance Urine pH Ur Specific Herrick Urine Protein Urine Glucose (UA) Urine Ketones Urine Blood Urine Nitrite Ur Leukocyte Esterase Urine RBC Urine WBC Ur Squamous Epith Cells Urine Bacteria Hyaline Casts Urine Osmolality Ur Random Sodium Urine Opiates Screen Ur Buprenorphine Scrn Ur Oxycodone Screen Urine Methadone Screen Urine Fentanyl Screen Ur Barbiturates Screen Carbamazepine Ur Phencyclidine Scrn Ur Amphetamines Screen U Benzodiazepines Scrn Urine Cocaine Screen U Marijuana (THC) Screen COVID-19 ([facility]) COVID-19 Clin Com Influenza Type A (AMANDA) Influenza Type B (AMANDA) Influenza A & B Note TB Test (T-Spot) Com TB Test Nil Control TB Test Panel A TB Test Panel B TB Test Positive Cntrl 11/13/24 11/13/24 11/13/24 16:06 17:02 20:40 WBC RBC Hgb Hct MCV MCH MCHC RDW Plt Count MPV Immature Gran % (Auto) Neut % (Auto) Lymph % (Auto) Cameron % (Auto) Eos % (Auto) Baso % (Auto) Lymph # (Auto) Cameron # (Auto) Eos # (Auto) Baso # (Auto) Abs Immat Gran (auto) Absolute Neuts (auto) Absolute Nucleated RBC Nucleated RBC % (auto) Smear Tech's Comments Hold Purple Top VBG pH VBG pCO2 VBG pO2 VBG HCO3 VBG O2 Saturation VBG Base Excess Sodium Potassium Chloride Carbon Dioxide Anion Gap BUN Creatinine Estim Creat Clear Calc Estimated GFR POC Glucose 177 H 179 H Random Glucose Estimat Average Glucose Hemoglobin A1c % Osmolality Lactic Acid Calcium Magnesium Iron TIBC % Saturation Unsat Iron Binding Total Bilirubin AST ALT Alkaline Phosphatase Total Protein Albumin Triglycerides Cholesterol LDL Cholesterol, Calc HDL Cholesterol Lipase TSH Free T4 Urine Color Urine Appearance Urine pH Ur Specific Herrick Urine Protein Urine Glucose (UA) Urine Ketones Urine Blood Urine Nitrite Ur Leukocyte Esterase Urine RBC Urine WBC Ur Squamous Epith Cells Urine Bacteria Hyaline Casts Urine Osmolality 485 Ur Random Sodium 41.0 Urine Opiates Screen Ur Buprenorphine Scrn Ur Oxycodone Screen Urine Methadone Screen Urine Fentanyl Screen Ur Barbiturates Screen Carbamazepine Ur Phencyclidine Scrn Ur Amphetamines Screen U Benzodiazepines Scrn Urine Cocaine Screen U Marijuana (THC) Screen COVID-19 ([facility]ES[facility]) COVID-19 Clin Com Influenza Type A (AMANDA) Influenza Type B (AMANDA) Influenza A & B Note TB Test (T-Spot) Com TB Test Nil Control TB Test Panel A TB Test Panel B TB Test Positive Cntrl 11/14/24 11/14/24 11/14/24 06:25 07:19 11:34 WBC RBC Hgb Hct MCV MCH MCHC RDW Plt Count MPV Immature Gran % (Auto) Neut % (Auto) Lymph % (Auto) Cameron % (Auto) Eos % (Auto) Baso % (Auto) Lymph # (Auto) Cameron # (Auto) Eos # (Auto) Baso # (Auto) Abs Immat Gran (auto) Absolute Neuts (auto) Absolute Nucleated RBC Nucleated RBC % (auto) Smear Tech's Comments Hold Purple Top VBG pH VBG pCO2 VBG pO2 VBG HCO3 VBG O2 Saturation VBG Base Excess Sodium 132 L Potassium 5.0 Chloride 97 Carbon Dioxide 27 Anion Gap 13 BUN 26 H Creatinine 0.93 Estim Creat Clear Calc 36.1 Estimated GFR 59 POC Glucose 170 H 132 H Random Glucose 193 H Estimat Average Glucose Hemoglobin A1c % Osmolality Lactic Acid Calcium 9.5 Magnesium Iron TIBC % Saturation Unsat Iron Binding Total Bilirubin AST ALT Alkaline Phosphatase Total Protein Albumin Triglycerides Cholesterol LDL Cholesterol, Calc HDL Cholesterol Lipase TSH Free T4 Urine Color Urine Appearance Urine pH Ur Specific Herrick Urine Protein Urine Glucose (UA) Urine Ketones Urine Blood Urine Nitrite Ur Leukocyte Esterase Urine RBC Urine WBC Ur Squamous Epith Cells Urine Bacteria Hyaline Casts Urine Osmolality Ur Random Sodium Urine Opiates Screen Ur Buprenorphine Scrn Ur Oxycodone Screen Urine Methadone Screen Urine Fentanyl Screen Ur Barbiturates Screen Carbamazepine Ur Phencyclidine Scrn Ur Amphetamines Screen U Benzodiazepines Scrn Urine Cocaine Screen U Marijuana (THC) Screen COVID-19 ([facility]ES[facility]) COVID-19 Clin Com Influenza Type A (AMANDA) Influenza Type B (AMANDA) Influenza A & B Note TB Test (T-Spot) Com TB Test Nil Control TB Test Panel A TB Test Panel B TB Test Positive Cntrl 11/14/24 11/14/24 11/15/24 15:59 20:36 06:24 WBC RBC Hgb Hct MCV MCH MCHC RDW Plt Count MPV Immature Gran % (Auto) Neut % (Auto) Lymph % (Auto) Cameron % (Auto) Eos % (Auto) Baso % (Auto) Lymph # (Auto) Cameron # (Auto) Eos # (Auto) Baso # (Auto) Abs Immat Gran (auto) Absolute Neuts (auto) Absolute Nucleated RBC Nucleated RBC % (auto) Smear Tech's Comments Hold Purple Top VBG pH VBG pCO2 VBG pO2 VBG HCO3 VBG O2 Saturation VBG Base Excess Sodium Potassium Chloride Carbon Dioxide Anion Gap BUN Creatinine Estim Creat Clear Calc Estimated GFR POC Glucose 199 H 98 199 H Random Glucose Estimat Average Glucose Hemoglobin A1c % Osmolality Lactic Acid Calcium Magnesium Iron TIBC % Saturation Unsat Iron Binding Total Bilirubin AST ALT Alkaline Phosphatase Total Protein Albumin Triglycerides Cholesterol LDL Cholesterol, Calc HDL Cholesterol Lipase TSH Free T4 Urine Color Urine Appearance Urine pH Ur Specific Herrick Urine Protein Urine Glucose (UA) Urine Ketones Urine Blood Urine Nitrite Ur Leukocyte Esterase Urine RBC Urine WBC Ur Squamous Epith Cells Urine Bacteria Hyaline Casts Urine Osmolality Ur Random Sodium Urine Opiates Screen Ur Buprenorphine Scrn Ur Oxycodone Screen Urine Methadone Screen Urine Fentanyl Screen Ur Barbiturates Screen Carbamazepine Ur Phencyclidine Scrn Ur Amphetamines Screen U Benzodiazepines Scrn Urine Cocaine Screen U Marijuana (THC) Screen COVID-19 ([facility]ESA) COVID-19 Clin Com Influenza Type A (AMANDA) Influenza Type B (AMANDA) Influenza A & B Note TB Test (T-Spot) Com TB Test Nil Control TB Test Panel A TB Test Panel B TB Test Positive [facility] 11/15/24 11/15/24 11/15/24 11:35 16:20 20:49 WBC RBC Hgb Hct MCV MCH MCHC RDW Plt Count MPV Immature Gran % (Auto) Neut % (Auto) Lymph % (Auto) Cameron % (Auto) Eos % (Auto) Baso % (Auto) Lymph # (Auto) Cameron # (Auto) Eos # (Auto) Baso # (Auto) Abs Immat Gran (auto) Absolute Neuts (auto) Absolute Nucleated RBC Nucleated RBC % (auto) Smear Tech's Comments Hold Purple Top VBG pH VBG pCO2 VBG pO2 VBG HCO3 VBG O2 Saturation VBG Base Excess Sodium Potassium Chloride Carbon Dioxide Anion Gap BUN Creatinine Estim Creat Clear Calc Estimated GFR POC Glucose 155 H 143 H 138 H Random Glucose Estimat Average Glucose Hemoglobin A1c % Osmolality Lactic Acid Calcium Magnesium Iron TIBC % Saturation Unsat Iron Binding Total Bilirubin AST ALT Alkaline Phosphatase Total Protein Albumin Triglycerides Cholesterol LDL Cholesterol, Calc HDL Cholesterol Lipase TSH Free T4 Urine Color Urine Appearance Urine pH Ur Specific Herrick Urine Protein Urine Glucose (UA) Urine Ketones Urine Blood Urine Nitrite Ur Leukocyte Esterase Urine RBC Urine WBC Ur Squamous Epith Cells Urine Bacteria Hyaline Casts Urine Osmolality Ur Random Sodium Urine Opiates Screen Ur Buprenorphine Scrn Ur Oxycodone Screen Urine Methadone Screen Urine Fentanyl Screen Ur Barbiturates Screen Carbamazepine Ur Phencyclidine Scrn Ur Amphetamines Screen U Benzodiazepines Scrn Urine Cocaine Screen U Marijuana (THC) Screen COVID-19 ([facility]ESA) COVID-19 Clin Com Influenza Type A (AMANDA) Influenza Type B (AMANDA) Influenza A & B Note TB Test (T-Spot) Com TB Test Nil Control TB Test Panel A TB Test Panel B TB Test Positive [facility] 11/16/24 11/16/24 11/16/24 06:35 11:24 13:55 WBC RBC Hgb Hct MCV MCH MCHC RDW Plt Count MPV Immature Gran % (Auto) Neut % (Auto) Lymph % (Auto) Cameron % (Auto) Eos % (Auto) Baso % (Auto) Lymph # (Auto) Cameron # (Auto) Eos # (Auto) Baso # (Auto) Abs Immat Gran (auto) Absolute Neuts (auto) Absolute Nucleated RBC Nucleated RBC % (auto) Smear Tech's Comments Hold Purple Top VBG pH VBG pCO2 VBG pO2 VBG HCO3 VBG O2 Saturation VBG Base Excess Sodium 134 L Potassium 4.7 Chloride 99 Carbon Dioxide 25 Anion Gap 15 BUN 21 H Creatinine 0.87 Estim Creat Clear Calc 38.7 Estimated GFR > 60 POC Glucose 192 H 152 H Random Glucose 58 L* Estimat Average Glucose Hemoglobin A1c % Osmolality Lactic Acid Calcium 9.6 Magnesium Iron TIBC % Saturation Unsat Iron Binding Total Bilirubin AST ALT Alkaline Phosphatase Total Protein Albumin Triglycerides Cholesterol LDL Cholesterol, Calc HDL Cholesterol Lipase TSH Free T4 Urine Color Urine Appearance Urine pH Ur Specific Herrick Urine Protein Urine Glucose (UA) Urine Ketones Urine Blood Urine Nitrite Ur Leukocyte Esterase Urine RBC Urine WBC Ur Squamous Epith Cells Urine Bacteria Hyaline Casts Urine Osmolality Ur Random Sodium Urine Opiates Screen Ur Buprenorphine Scrn Ur Oxycodone Screen Urine Methadone Screen Urine Fentanyl Screen Ur Barbiturates Screen Carbamazepine Ur Phencyclidine Scrn Ur Amphetamines Screen U Benzodiazepines Scrn Urine Cocaine Screen U Marijuana (THC) Screen COVID-19 ([facility]ESA) COVID-19 Clin Com Influenza Type A (AMANDA) Influenza Type B (AMANDA) Influenza A & B Note TB Test (T-Spot) Com TB Test Nil Control TB Test Panel A TB Test Panel B TB Test Positive Cntr 11/16/24 11/16/24 11/16/24 14:34 16:22 20:02 WBC RBC Hgb Hct MCV MCH MCHC RDW Plt Count MPV Immature Gran % (Auto) Neut % (Auto) Lymph % (Auto) Cameron % (Auto) Eos % (Auto) Baso % (Auto) Lymph # (Auto) Cameron # (Auto) Eos # (Auto) Baso # (Auto) Abs Immat Gran (auto) Absolute Neuts (auto) Absolute Nucleated RBC Nucleated RBC % (auto) Smear Tech's Comments Hold Purple Top VBG pH VBG pCO2 VBG pO2 VBG HCO3 VBG O2 Saturation VBG Base Excess Sodium Potassium Chloride Carbon Dioxide Anion Gap BUN Creatinine Estim Creat Clear Calc Estimated GFR POC Glucose 69 126 H 141 H Random Glucose Estimat Average Glucose Hemoglobin A1c % Osmolality Lactic Acid Calcium Magnesium Iron TIBC % Saturation Unsat Iron Binding Total Bilirubin AST ALT Alkaline Phosphatase Total Protein Albumin Triglycerides Cholesterol LDL Cholesterol, Calc HDL Cholesterol Lipase TSH Free T4 Urine Color Urine Appearance Urine pH Ur Specific Herrick Urine Protein Urine Glucose (UA) Urine Ketones Urine Blood Urine Nitrite Ur Leukocyte Esterase Urine RBC Urine WBC Ur Squamous Epith Cells Urine Bacteria Hyaline Casts Urine Osmolality Ur Random Sodium Urine Opiates Screen Ur Buprenorphine Scrn Ur Oxycodone Screen Urine Methadone Screen Urine Fentanyl Screen Ur Barbiturates Screen Carbamazepine Ur Phencyclidine Scrn Ur Amphetamines Screen U Benzodiazepines Scrn Urine Cocaine Screen U Marijuana (THC) Screen COVID-19 (TRESA) COVID-19 Clin Com Influenza Type A (AMANDA) Influenza Type B (AMANDA) Influenza A & B Note TB Test (T-Spot) Com TB Test Nil Control TB Test Panel A TB Test Panel B TB Test Positive Cntr 11/17/24 11/17/24 11/17/24 06:32 11:12 14:40 WBC RBC Hgb Hct MCV MCH MCHC RDW Plt Count MPV Immature Gran % (Auto) Neut % (Auto) Lymph % (Auto) Cameron % (Auto) Eos % (Auto) Baso % (Auto) Lymph # (Auto) Cameron # (Auto) Eos # (Auto) Baso # (Auto) Abs Immat Gran (auto) Absolute Neuts (auto) Absolute Nucleated RBC Nucleated RBC % (auto) Smear Tech's Comments Hold Purple Top VBG pH VBG pCO2 VBG pO2 VBG HCO3 VBG O2 Saturation VBG Base Excess Sodium Potassium Chloride Carbon Dioxide Anion Gap BUN Creatinine Estim Creat Clear Calc Estimated GFR POC Glucose 177 H 184 H 149 H Random Glucose Estimat Average Glucose Hemoglobin A1c % Osmolality Lactic Acid Calcium Magnesium Iron TIBC % Saturation Unsat Iron Binding Total Bilirubin AST ALT Alkaline Phosphatase Total Protein Albumin Triglycerides Cholesterol LDL Cholesterol, Calc HDL Cholesterol Lipase TSH Free T4 Urine Color Urine Appearance Urine pH Ur Specific Herrick Urine Protein Urine Glucose (UA) Urine Ketones Urine Blood Urine Nitrite Ur Leukocyte Esterase Urine RBC Urine WBC Ur Squamous Epith Cells Urine Bacteria Hyaline Casts Urine Osmolality Ur Random Sodium Urine Opiates Screen Ur Buprenorphine Scrn Ur Oxycodone Screen Urine Methadone Screen Urine Fentanyl Screen Ur Barbiturates Screen Carbamazepine Ur Phencyclidine Scrn Ur Amphetamines Screen U Benzodiazepines Scrn Urine Cocaine Screen U Marijuana (THC) Screen COVID-19 ([facility]) COVID-19 Clin Com Influenza Type A (AMANDA) Influenza Type B (AMANDA) Influenza A & B Note TB Test (T-Spot) Com TB Test Nil Control TB Test Panel A TB Test Panel B TB Test Positive Cntrl 11/17/24 11/18/24 11/18/24 16:18 06:08 11:15 WBC RBC Hgb Hct MCV MCH MCHC RDW Plt Count MPV Immature Gran % (Auto) Neut % (Auto) Lymph % (Auto) Cameron % (Auto) Eos % (Auto) Baso % (Auto) Lymph # (Auto) Cameron # (Auto) Eos # (Auto) Baso # (Auto) Abs Immat Gran (auto) Absolute Neuts (auto) Absolute Nucleated RBC Nucleated RBC % (auto) Smear Tech's Comments Hold Purple Top VBG pH VBG pCO2 VBG pO2 VBG HCO3 VBG O2 Saturation VBG Base Excess Sodium Potassium Chloride Carbon Dioxide Anion Gap BUN Creatinine Estim Creat Clear Calc Estimated GFR POC Glucose 119 H 192 H 127 H Random Glucose Estimat Average Glucose Hemoglobin A1c % Osmolality Lactic Acid Calcium Magnesium Iron TIBC % Saturation Unsat Iron Binding Total Bilirubin AST ALT Alkaline Phosphatase Total Protein Albumin Triglycerides Cholesterol LDL Cholesterol, Calc HDL Cholesterol Lipase TSH Free T4 Urine Color Urine Appearance Urine pH Ur Specific Herrick Urine Protein Urine Glucose (UA) Urine Ketones Urine Blood Urine Nitrite Ur Leukocyte Esterase Urine RBC Urine WBC Ur Squamous Epith Cells Urine Bacteria Hyaline Casts Urine Osmolality Ur Random Sodium Urine Opiates Screen Ur Buprenorphine Scrn Ur Oxycodone Screen Urine Methadone Screen Urine Fentanyl Screen Ur Barbiturates Screen Carbamazepine Ur Phencyclidine Scrn Ur Amphetamines Screen U Benzodiazepines Scrn Urine Cocaine Screen U Marijuana (THC) Screen COVID-19 ([facility]) COVID-19 Clin Com Influenza Type A (AMANDA) Influenza Type B (AMANDA) Influenza A & B Note TB Test (T-Spot) Com TB Test Nil Control TB Test Panel A TB Test Panel B TB Test Positive Cntrl 11/18/24 11/18/24 11/18/24 13:33 16:18 21:19 WBC RBC Hgb Hct MCV MCH MCHC RDW Plt Count MPV Immature Gran % (Auto) Neut % (Auto) Lymph % (Auto) Cameron % (Auto) Eos % (Auto) Baso % (Auto) Lymph # (Auto) Cameron # (Auto) Eos # (Auto) Baso # (Auto) Abs Immat Gran (auto) Absolute Neuts (auto) Absolute Nucleated RBC Nucleated RBC % (auto) Smear Tech's Comments Hold Purple Top VBG pH VBG pCO2 VBG pO2 VBG HCO3 VBG O2 Saturation VBG Base Excess Sodium 137 Potassium 4.9 Chloride 105 Carbon Dioxide 25 Anion Gap 12 BUN 27 H Creatinine 1.03 Estim Creat Clear Calc 32.6 Estimated GFR 52 POC Glucose 110 154 H Random Glucose 81 Estimat Average Glucose Hemoglobin A1c % Osmolality Lactic Acid Calcium 9.1 Magnesium Iron TIBC % Saturation Unsat Iron Binding Total Bilirubin 0.3 AST 18 ALT 26 Alkaline Phosphatase 67 Total Protein 7.1 Albumin 4.4 Triglycerides Cholesterol LDL Cholesterol, Calc HDL Cholesterol Lipase TSH Free T4 Urine Color Urine Appearance Urine pH Ur Specific Herrick Urine Protein Urine Glucose (UA) Urine Ketones Urine Blood Urine Nitrite Ur Leukocyte Esterase Urine RBC Urine WBC Ur Squamous Epith Cells Urine Bacteria Hyaline Casts Urine Osmolality Ur Random Sodium Urine Opiates Screen Ur Buprenorphine Scrn Ur Oxycodone Screen Urine Methadone Screen Urine Fentanyl Screen Ur Barbiturates Screen Carbamazepine Ur Phencyclidine Scrn Ur Amphetamines Screen U Benzodiazepines Scrn Urine Cocaine Screen U Marijuana (THC) Screen COVID-19 ([facility]) COVID-19 Clin Com Influenza Type A (AMANDA) Influenza Type B (AMANDA) Influenza A & B Note TB Test (T-Spot) Com TB Test Nil Control TB Test Panel A TB Test Panel B TB Test Positive Cntrl 11/19/24 11/19/24 11/19/24 06:30 11:23 15:59 WBC RBC Hgb Hct MCV MCH MCHC RDW Plt Count MPV Immature Gran % (Auto) Neut % (Auto) Lymph % (Auto) Cameron % (Auto) Eos % (Auto) Baso % (Auto) Lymph # (Auto) Cameron # (Auto) Eos # (Auto) Baso # (Auto) Abs Immat Gran (auto) Absolute Neuts (auto) Absolute Nucleated RBC Nucleated RBC % (auto) Smear Tech's Comments Hold Purple Top VBG pH VBG pCO2 VBG pO2 VBG HCO3 VBG O2 Saturation VBG Base Excess Sodium Potassium Chloride Carbon Dioxide Anion Gap BUN Creatinine Estim Creat Clear Calc Estimated GFR POC Glucose 178 H 157 H 110 Random Glucose Estimat Average Glucose Hemoglobin A1c % Osmolality Lactic Acid Calcium Magnesium Iron TIBC % Saturation Unsat Iron Binding Total Bilirubin AST ALT Alkaline Phosphatase Total Protein Albumin Triglycerides Cholesterol LDL Cholesterol, Calc HDL Cholesterol Lipase TSH Free T4 Urine Color Urine Appearance Urine pH Ur Specific Herrick Urine Protein Urine Glucose (UA) Urine Ketones Urine Blood Urine Nitrite Ur Leukocyte Esterase Urine RBC Urine WBC Ur Squamous Epith Cells Urine Bacteria Hyaline Casts Urine Osmolality Ur Random Sodium Urine Opiates Screen Ur Buprenorphine Scrn Ur Oxycodone Screen Urine Methadone Screen Urine Fentanyl Screen Ur Barbiturates Screen Carbamazepine Ur Phencyclidine Scrn Ur Amphetamines Screen U Benzodiazepines Scrn Urine Cocaine Screen U Marijuana (THC) Screen COVID-19 ([facility]) COVID-19 Clin Com Influenza Type A (AMANDA) Influenza Type B (AMANDA) Influenza A & B Note TB Test (T-Spot) Com TB Test Nil Control TB Test Panel A TB Test Panel B TB Test Positive Cntr 11/19/24 11/20/24 11/20/24 19:50 06:36 11:02 WBC RBC Hgb Hct MCV MCH MCHC RDW Plt Count MPV Immature Gran % (Auto) Neut % (Auto) Lymph % (Auto) Cameron % (Auto) Eos % (Auto) Baso % (Auto) Lymph # (Auto) Cameron # (Auto) Eos # (Auto) Baso # (Auto) Abs Immat Gran (auto) Absolute Neuts (auto) Absolute Nucleated RBC Nucleated RBC % (auto) Smear Tech's Comments Hold Purple Top VBG pH VBG pCO2 VBG pO2 VBG HCO3 VBG O2 Saturation VBG Base Excess Sodium 137 Potassium 4.7 Chloride 102 Carbon Dioxide 27 Anion Gap 13 BUN 23 H Creatinine 0.99 Estim Creat Clear Calc 34.0 Estimated GFR 55 POC Glucose 205 H 165 H Random Glucose 129 H Estimat Average Glucose 154 Hemoglobin A1c % 7.0 H Osmolality Lactic Acid Calcium 9.5 Magnesium Iron TIBC % Saturation Unsat Iron Binding Total Bilirubin AST ALT Alkaline Phosphatase Total Protein Albumin Triglycerides Cholesterol LDL Cholesterol, Calc HDL Cholesterol Lipase TSH Free T4 Urine Color Urine Appearance Urine pH Ur Specific Herrick Urine Protein Urine Glucose (UA) Urine Ketones Urine Blood Urine Nitrite Ur Leukocyte Esterase Urine RBC Urine WBC Ur Squamous Epith Cells Urine Bacteria Hyaline Casts Urine Osmolality Ur Random Sodium Urine Opiates Screen Ur Buprenorphine Scrn Ur Oxycodone Screen Urine Methadone Screen Urine Fentanyl Screen Ur Barbiturates Screen Carbamazepine Ur Phencyclidine Scrn Ur Amphetamines Screen U Benzodiazepines Scrn Urine Cocaine Screen U Marijuana (THC) Screen COVID-19 ([facility]) COVID-19 Clin Com Influenza Type A (AMANDA) Influenza Type B (AMANDA) Influenza A & B Note TB Test (T-Spot) Com TB Test Nil Control TB Test Panel A TB Test Panel B TB Test Positive Cntrl 11/20/24 11/20/24 11/20/24 11:33 16:23 20:46 WBC RBC Hgb Hct MCV MCH MCHC RDW Plt Count MPV Immature Gran % (Auto) Neut % (Auto) Lymph % (Auto) Cameron % (Auto) Eos % (Auto) Baso % (Auto) Lymph # (Auto) Cameron # (Auto) Eos # (Auto) Baso # (Auto) Abs Immat Gran (auto) Absolute Neuts (auto) Absolute Nucleated RBC Nucleated RBC % (auto) Smear Tech's Comments Hold Purple Top VBG pH VBG pCO2 VBG pO2 VBG HCO3 VBG O2 Saturation VBG Base Excess Sodium Potassium Chloride Carbon Dioxide Anion Gap BUN Creatinine Estim Creat Clear Calc Estimated GFR POC Glucose 106 202 H 162 H Random Glucose Estimat Average Glucose Hemoglobin A1c % Osmolality Lactic Acid Calcium Magnesium Iron TIBC % Saturation Unsat Iron Binding Total Bilirubin AST ALT Alkaline Phosphatase Total Protein Albumin Triglycerides Cholesterol LDL Cholesterol, Calc HDL Cholesterol Lipase TSH Free T4 Urine Color Urine Appearance Urine pH Ur Specific Herrick Urine Protein Urine Glucose (UA) Urine Ketones Urine Blood Urine Nitrite Ur Leukocyte Esterase Urine RBC Urine WBC Ur Squamous Epith Cells Urine Bacteria Hyaline Casts Urine Osmolality Ur Random Sodium Urine Opiates Screen Ur Buprenorphine Scrn Ur Oxycodone Screen Urine Methadone Screen Urine Fentanyl Screen Ur Barbiturates Screen Carbamazepine Ur Phencyclidine Scrn Ur Amphetamines Screen U Benzodiazepines Scrn Urine Cocaine Screen U Marijuana (THC) Screen COVID-19 ([facility]ESA) COVID-19 Clin Com Influenza Type A (AMANDA) Influenza Type B (AMANDA) Influenza A & B Note TB Test (T-Spot) Com TB Test Nil Control TB Test Panel A TB Test Panel B TB Test Positive Cntrl 11/21/24 11/21/24 11/21/24 06:31 11:24 16:25 WBC RBC Hgb Hct MCV MCH MCHC RDW Plt Count MPV Immature Gran % (Auto) Neut % (Auto) Lymph % (Auto) Cameron % (Auto) Eos % (Auto) Baso % (Auto) Lymph # (Auto) Cameron # (Auto) Eos # (Auto) Baso # (Auto) Abs Immat Gran (auto) Absolute Neuts (auto) Absolute Nucleated RBC Nucleated RBC % (auto) Smear Tech's Comments Hold Purple Top VBG pH VBG pCO2 VBG pO2 VBG HCO3 VBG O2 Saturation VBG Base Excess Sodium Potassium Chloride Carbon Dioxide Anion Gap BUN Creatinine Estim Creat Clear Calc Estimated GFR POC Glucose 189 H 196 H 110 Random Glucose Estimat Average Glucose Hemoglobin A1c % Osmolality Lactic Acid Calcium Magnesium Iron TIBC % Saturation Unsat Iron Binding Total Bilirubin AST ALT Alkaline Phosphatase Total Protein Albumin Triglycerides Cholesterol LDL Cholesterol, Calc HDL Cholesterol Lipase TSH Free T4 Urine Color Urine Appearance Urine pH Ur Specific Herrick Urine Protein Urine Glucose (UA) Urine Ketones Urine Blood Urine Nitrite Ur Leukocyte Esterase Urine RBC Urine WBC Ur Squamous Epith Cells Urine Bacteria Hyaline Casts Urine Osmolality Ur Random Sodium Urine Opiates Screen Ur Buprenorphine Scrn Ur Oxycodone Screen Urine Methadone Screen Urine Fentanyl Screen Ur Barbiturates Screen Carbamazepine Ur Phencyclidine Scrn Ur Amphetamines Screen U Benzodiazepines Scrn Urine Cocaine Screen U Marijuana (THC) Screen COVID-19 (TRESA) COVID-19 Clin Com Influenza Type A (AMANDA) Influenza Type B (AMANDA) Influenza A & B Note TB Test (T-Spot) Com TB Test Nil Control TB Test Panel A TB Test Panel B TB Test Positive [facility] 11/21/24 11/22/24 11/22/24 21:16 06:56 11:14 WBC RBC Hgb Hct MCV MCH MCHC RDW Plt Count MPV Immature Gran % (Auto) Neut % (Auto) Lymph % (Auto) Cameron % (Auto) Eos % (Auto) Baso % (Auto) Lymph # (Auto) Cameron # (Auto) Eos # (Auto) Baso # (Auto) Abs Immat Gran (auto) Absolute Neuts (auto) Absolute Nucleated RBC Nucleated RBC % (auto) Smear Tech's Comments Hold Purple Top VBG pH VBG pCO2 VBG pO2 VBG HCO3 VBG O2 Saturation VBG Base Excess Sodium Potassium Chloride Carbon Dioxide Anion Gap BUN Creatinine Estim Creat Clear Calc Estimated GFR POC Glucose 138 H 195 H 224 H Random Glucose Estimat Average Glucose Hemoglobin A1c % Osmolality Lactic Acid Calcium Magnesium Iron TIBC % Saturation Unsat Iron Binding Total Bilirubin AST ALT Alkaline Phosphatase Total Protein Albumin Triglycerides Cholesterol LDL Cholesterol, Calc HDL Cholesterol Lipase TSH Free T4 Urine Color Urine Appearance Urine pH Ur Specific Herrick Urine Protein Urine Glucose (UA) Urine Ketones Urine Blood Urine Nitrite Ur Leukocyte Esterase Urine RBC Urine WBC Ur Squamous Epith Cells Urine Bacteria Hyaline Casts Urine Osmolality Ur Random Sodium Urine Opiates Screen Ur Buprenorphine Scrn Ur Oxycodone Screen Urine Methadone Screen Urine Fentanyl Screen Ur Barbiturates Screen Carbamazepine Ur Phencyclidine Scrn Ur Amphetamines Screen U Benzodiazepines Scrn Urine Cocaine Screen U Marijuana (THC) Screen COVID-19 (TRESA) COVID-19 Clin Com Influenza Type A (AMANDA) Influenza Type B (AMANDA) Influenza A & B Note TB Test (T-Spot) Com TB Test Nil Control TB Test Panel A TB Test Panel B TB Test Positive [facility] 11/22/24 11/22/24 11/23/24 16:28 21:06 06:14 WBC RBC Hgb Hct MCV MCH MCHC RDW Plt Count MPV Immature Gran % (Auto) Neut % (Auto) Lymph % (Auto) Cameron % (Auto) Eos % (Auto) Baso % (Auto) Lymph # (Auto) Cameron # (Auto) Eos # (Auto) Baso # (Auto) Abs Immat Gran (auto) Absolute Neuts (auto) Absolute Nucleated RBC Nucleated RBC % (auto) Smear Tech's Comments Hold Purple Top VBG pH VBG pCO2 VBG pO2 VBG HCO3 VBG O2 Saturation VBG Base Excess Sodium Potassium Chloride Carbon Dioxide Anion Gap BUN Creatinine Estim Creat Clear Calc Estimated GFR POC Glucose 129 H 94 191 H Random Glucose Estimat Average Glucose Hemoglobin A1c % Osmolality Lactic Acid Calcium Magnesium Iron TIBC % Saturation Unsat Iron Binding Total Bilirubin AST ALT Alkaline Phosphatase Total Protein Albumin Triglycerides Cholesterol LDL Cholesterol, Calc HDL Cholesterol Lipase TSH Free T4 Urine Color Urine Appearance Urine pH Ur Specific Herrick Urine Protein Urine Glucose (UA) Urine Ketones Urine Blood Urine Nitrite Ur Leukocyte Esterase Urine RBC Urine WBC Ur Squamous Epith Cells Urine Bacteria Hyaline Casts Urine Osmolality Ur Random Sodium Urine Opiates Screen Ur Buprenorphine Scrn Ur Oxycodone Screen Urine Methadone Screen Urine Fentanyl Screen Ur Barbiturates Screen Carbamazepine Ur Phencyclidine Scrn Ur Amphetamines Screen U Benzodiazepines Scrn Urine Cocaine Screen U Marijuana (THC) Screen COVID-19 (TRESA) COVID-19 Clin Com Influenza Type A (AMANDA) Influenza Type B (AMANDA) Influenza A & B Note TB Test (T-Spot) Com TB Test Nil Control TB Test Panel A TB Test Panel B TB Test Positive Cntrl 11/23/24 11/24/24 11/25/24 11:22 06:16 06:42 WBC RBC Hgb Hct MCV MCH MCHC RDW Plt Count MPV Immature Gran % (Auto) Neut % (Auto) Lymph % (Auto) Cameron % (Auto) Eos % (Auto) Baso % (Auto) Lymph # (Auto) Cameron # (Auto) Eos # (Auto) Baso # (Auto) Abs Immat Gran (auto) Absolute Neuts (auto) Absolute Nucleated RBC Nucleated RBC % (auto) Smear Tech's Comments Hold Purple Top VBG pH VBG pCO2 VBG pO2 VBG HCO3 VBG O2 Saturation VBG Base Excess Sodium Potassium Chloride Carbon Dioxide Anion Gap BUN Creatinine Estim Creat Clear Calc Estimated GFR POC Glucose 188 H 184 H 167 H Random Glucose Estimat Average Glucose Hemoglobin A1c % Osmolality Lactic Acid Calcium Magnesium Iron TIBC % Saturation Unsat Iron Binding Total Bilirubin AST ALT Alkaline Phosphatase Total Protein Albumin Triglycerides Cholesterol LDL Cholesterol, Calc HDL Cholesterol Lipase TSH Free T4 Urine Color Urine Appearance Urine pH Ur Specific Herrick Urine Protein Urine Glucose (UA) Urine Ketones Urine Blood Urine Nitrite Ur Leukocyte Esterase Urine RBC Urine WBC Ur Squamous Epith Cells Urine Bacteria Hyaline Casts Urine Osmolality Ur Random Sodium Urine Opiates Screen Ur Buprenorphine Scrn Ur Oxycodone Screen Urine Methadone Screen Urine Fentanyl Screen Ur Barbiturates Screen Carbamazepine Ur Phencyclidine Scrn Ur Amphetamines Screen U Benzodiazepines Scrn Urine Cocaine Screen U Marijuana (THC) Screen COVID-19 (TRESA) COVID-19 Clin Com Influenza Type A (AMANDA) Influenza Type B (AMANDA) Influenza A & B Note TB Test (T-Spot) Com TB Test Nil Control TB Test Panel A TB Test Panel B TB Test Positive Cntrl 11/26/24 11/27/24 11/28/24 06:23 06:32 06:13 WBC RBC Hgb Hct MCV MCH MCHC RDW Plt Count MPV Immature Gran % (Auto) Neut % (Auto) Lymph % (Auto) Cameron % (Auto) Eos % (Auto) Baso % (Auto) Lymph # (Auto) Cameron # (Auto) Eos # (Auto) Baso # (Auto) Abs Immat Gran (auto) Absolute Neuts (auto) Absolute Nucleated RBC Nucleated RBC % (auto) Smear Tech's Comments Hold Purple Top VBG pH VBG pCO2 VBG pO2 VBG HCO3 VBG O2 Saturation VBG Base Excess Sodium Potassium Chloride Carbon Dioxide Anion Gap BUN Creatinine Estim Creat Clear Calc Estimated GFR POC Glucose 166 H 167 H 159 H Random Glucose Estimat Average Glucose Hemoglobin A1c % Osmolality Lactic Acid Calcium Magnesium Iron TIBC % Saturation Unsat Iron Binding Total Bilirubin AST ALT Alkaline Phosphatase Total Protein Albumin Triglycerides Cholesterol LDL Cholesterol, Calc HDL Cholesterol Lipase TSH Free T4 Urine Color Urine Appearance Urine pH Ur Specific Herrick Urine Protein Urine Glucose (UA) Urine Ketones Urine Blood Urine Nitrite Ur Leukocyte Esterase Urine RBC Urine WBC Ur Squamous Epith Cells Urine Bacteria Hyaline Casts Urine Osmolality Ur Random Sodium Urine Opiates Screen Ur Buprenorphine Scrn Ur Oxycodone Screen Urine Methadone Screen Urine Fentanyl Screen Ur Barbiturates Screen Carbamazepine Ur Phencyclidine Scrn Ur Amphetamines Screen U Benzodiazepines Scrn Urine Cocaine Screen U Marijuana (THC) Screen COVID-19 (TRESA) COVID-19 Clin Com Influenza Type A (AMANDA) Influenza Type B (AMANDA) Influenza A & B Note TB Test (T-Spot) Com TB Test Nil Control TB Test Panel A TB Test Panel B TB Test Positive Cntr 11/29/24 11/30/24 12/01/24 06:16 06:16 06:37 WBC RBC Hgb Hct MCV MCH MCHC RDW Plt Count MPV Immature Gran % (Auto) Neut % (Auto) Lymph % (Auto) Cameron % (Auto) Eos % (Auto) Baso % (Auto) Lymph # (Auto) Cameron # (Auto) Eos # (Auto) Baso # (Auto) Abs Immat Gran (auto) Absolute Neuts (auto) Absolute Nucleated RBC Nucleated RBC % (auto) Smear Tech's Comments Hold Purple Top VBG pH VBG pCO2 VBG pO2 VBG HCO3 VBG O2 Saturation VBG Base Excess Sodium Potassium Chloride Carbon Dioxide Anion Gap BUN Creatinine Estim Creat Clear Calc Estimated GFR POC Glucose 156 H 136 H 129 H Random Glucose Estimat Average Glucose Hemoglobin A1c % Osmolality Lactic Acid Calcium Magnesium Iron TIBC % Saturation Unsat Iron Binding Total Bilirubin AST ALT Alkaline Phosphatase Total Protein Albumin Triglycerides Cholesterol LDL Cholesterol, Calc HDL Cholesterol Lipase TSH Free T4 Urine Color Urine Appearance Urine pH Ur Specific Herrick Urine Protein Urine Glucose (UA) Urine Ketones Urine Blood Urine Nitrite Ur Leukocyte Esterase Urine RBC Urine WBC Ur Squamous Epith Cells Urine Bacteria Hyaline Casts Urine Osmolality Ur Random Sodium Urine Opiates Screen Ur Buprenorphine Scrn Ur Oxycodone Screen Urine Methadone Screen Urine Fentanyl Screen Ur Barbiturates Screen Carbamazepine Ur Phencyclidine Scrn Ur Amphetamines Screen U Benzodiazepines Scrn Urine Cocaine Screen U Marijuana (THC) Screen COVID-19 (TRESA) COVID-19 Clin Com Influenza Type A (AMANDA) Influenza Type B (AMANDA) Influenza A & B Note TB Test (T-Spot) Com TB Test Nil Control TB Test Panel A TB Test Panel B TB Test Positive Cnt 12/02/24 12/03/24 12/03/24 06:24 06:17 16:25 WBC RBC Hgb Hct MCV MCH MCHC RDW Plt Count MPV Immature Gran % (Auto) Neut % (Auto) Lymph % (Auto) Cameron % (Auto) Eos % (Auto) Baso % (Auto) Lymph # (Auto) Cameron # (Auto) Eos # (Auto) Baso # (Auto) Abs Immat Gran (auto) Absolute Neuts (auto) Absolute Nucleated RBC Nucleated RBC % (auto) Smear Tech's Comments Hold Purple Top VBG pH VBG pCO2 VBG pO2 VBG HCO3 VBG O2 Saturation VBG Base Excess Sodium Potassium Chloride Carbon Dioxide Anion Gap BUN Creatinine Estim Creat Clear Calc Estimated GFR POC Glucose 163 H 182 H 120 H Random Glucose Estimat Average Glucose Hemoglobin A1c % Osmolality Lactic Acid Calcium Magnesium Iron TIBC % Saturation Unsat Iron Binding Total Bilirubin AST ALT Alkaline Phosphatase Total Protein Albumin Triglycerides Cholesterol LDL Cholesterol, Calc HDL Cholesterol Lipase TSH Free T4 Urine Color Urine Appearance Urine pH Ur Specific Herrick Urine Protein Urine Glucose (UA) Urine Ketones Urine Blood Urine Nitrite Ur Leukocyte Esterase Urine RBC Urine WBC Ur Squamous Epith Cells Urine Bacteria Hyaline Casts Urine Osmolality Ur Random Sodium Urine Opiates Screen Ur Buprenorphine Scrn Ur Oxycodone Screen Urine Methadone Screen Urine Fentanyl Screen Ur Barbiturates Screen Carbamazepine Ur Phencyclidine Scrn Ur Amphetamines Screen U Benzodiazepines Scrn Urine Cocaine Screen U Marijuana (THC) Screen COVID-19 (TRESA) COVID-19 Clin Com Influenza Type A (AMANDA) Influenza Type B (AMANDA) Influenza A & B Note TB Test (T-Spot) Com TB Test Nil Control TB Test Panel A TB Test Panel B TB Test Positive Cntrl 12/04/24 12/05/24 12/06/24 05:52 06:00 05:54 WBC RBC Hgb Hct MCV MCH MCHC RDW Plt Count MPV Immature Gran % (Auto) Neut % (Auto) Lymph % (Auto) Cameron % (Auto) Eos % (Auto) Baso % (Auto) Lymph # (Auto) Cameron # (Auto) Eos # (Auto) Baso # (Auto) Abs Immat Gran (auto) Absolute Neuts (auto) Absolute Nucleated RBC Nucleated RBC % (auto) Smear Tech's Comments Hold Purple Top VBG pH VBG pCO2 VBG pO2 VBG HCO3 VBG O2 Saturation VBG Base Excess Sodium Potassium Chloride Carbon Dioxide Anion Gap BUN Creatinine Estim Creat Clear Calc Estimated GFR POC Glucose 161 H 185 H 206 H Random Glucose Estimat Average Glucose Hemoglobin A1c % Osmolality Lactic Acid Calcium Magnesium Iron TIBC % Saturation Unsat Iron Binding Total Bilirubin AST ALT Alkaline Phosphatase Total Protein Albumin Triglycerides Cholesterol LDL Cholesterol, Calc HDL Cholesterol Lipase TSH Free T4 Urine Color Urine Appearance Urine pH Ur Specific Herrick Urine Protein Urine Glucose (UA) Urine Ketones Urine Blood Urine Nitrite Ur Leukocyte Esterase Urine RBC Urine WBC Ur Squamous Epith Cells Urine Bacteria Hyaline Casts Urine Osmolality Ur Random Sodium Urine Opiates Screen Ur Buprenorphine Scrn Ur Oxycodone Screen Urine Methadone Screen Urine Fentanyl Screen Ur Barbiturates Screen Carbamazepine Ur Phencyclidine Scrn Ur Amphetamines Screen U Benzodiazepines Scrn Urine Cocaine Screen U Marijuana (THC) Screen COVID-19 (TRESA) COVID-19 Clin Com Influenza Type A (AMANDA) Influenza Type B (AMANDA) Influenza A & B Note TB Test (T-Spot) Com TB Test Nil Control TB Test Panel A TB Test Panel B TB Test Positive Cntr 12/07/24 12/08/24 12/09/24 06:19 06:31 06:26 WBC RBC Hgb Hct MCV MCH MCHC RDW Plt Count MPV Immature Gran % (Auto) Neut % (Auto) Lymph % (Auto) Cameron % (Auto) Eos % (Auto) Baso % (Auto) Lymph # (Auto) Cameron # (Auto) Eos # (Auto) Baso # (Auto) Abs Immat Gran (auto) Absolute Neuts (auto) Absolute Nucleated RBC Nucleated RBC % (auto) Smear Tech's Comments Hold Purple Top VBG pH VBG pCO2 VBG pO2 VBG HCO3 VBG O2 Saturation VBG Base Excess Sodium Potassium Chloride Carbon Dioxide Anion Gap BUN Creatinine Estim Creat Clear Calc Estimated GFR POC Glucose 194 H 163 H 165 H Random Glucose Estimat Average Glucose Hemoglobin A1c % Osmolality Lactic Acid Calcium Magnesium Iron TIBC % Saturation Unsat Iron Binding Total Bilirubin AST ALT Alkaline Phosphatase Total Protein Albumin Triglycerides Cholesterol LDL Cholesterol, Calc HDL Cholesterol Lipase TSH Free T4 Urine Color Urine Appearance Urine pH Ur Specific Herrick Urine Protein Urine Glucose (UA) Urine Ketones Urine Blood Urine Nitrite Ur Leukocyte Esterase Urine RBC Urine WBC Ur Squamous Epith Cells Urine Bacteria Hyaline Casts Urine Osmolality Ur Random Sodium Urine Opiates Screen Ur Buprenorphine Scrn Ur Oxycodone Screen Urine Methadone Screen Urine Fentanyl Screen Ur Barbiturates Screen Carbamazepine Ur Phencyclidine Scrn Ur Amphetamines Screen U Benzodiazepines Scrn Urine Cocaine Screen U Marijuana (THC) Screen COVID-19 (TRESA) COVID-19 Clin Com Influenza Type A (AMANDA) Influenza Type B (AMANDA) Influenza A & B Note TB Test (T-Spot) Com TB Test Nil Control TB Test Panel A TB Test Panel B TB Test Positive [facility] 12/09/24 12/10/24 12/11/24 12:31 06:09 06:15 WBC RBC Hgb Hct MCV MCH MCHC RDW Plt Count MPV Immature Gran % (Auto) Neut % (Auto) Lymph % (Auto) Cameron % (Auto) Eos % (Auto) Baso % (Auto) Lymph # (Auto) Cameron # (Auto) Eos # (Auto) Baso # (Auto) Abs Immat Gran (auto) Absolute Neuts (auto) Absolute Nucleated RBC Nucleated RBC % (auto) Smear Tech's Comments Hold Purple Top VBG pH VBG pCO2 VBG pO2 VBG HCO3 VBG O2 Saturation VBG Base Excess Sodium Potassium Chloride Carbon Dioxide Anion Gap BUN Creatinine Estim Creat Clear Calc Estimated GFR POC Glucose 167 H 159 H Random Glucose Estimat Average Glucose Hemoglobin A1c % Osmolality Lactic Acid Calcium Magnesium Iron TIBC % Saturation Unsat Iron Binding Total Bilirubin AST ALT Alkaline Phosphatase Total Protein Albumin Triglycerides Cholesterol LDL Cholesterol, Calc HDL Cholesterol Lipase TSH Free T4 Urine Color Urine Appearance Urine pH Ur Specific Herrick Urine Protein Urine Glucose (UA) Urine Ketones Urine Blood Urine Nitrite Ur Leukocyte Esterase Urine RBC Urine WBC Ur Squamous Epith Cells Urine Bacteria Hyaline Casts Urine Osmolality Ur Random Sodium Urine Opiates Screen Ur Buprenorphine Scrn Ur Oxycodone Screen Urine Methadone Screen Urine Fentanyl Screen Ur Barbiturates Screen Carbamazepine Ur Phencyclidine Scrn Ur Amphetamines Screen U Benzodiazepines Scrn Urine Cocaine Screen U Marijuana (THC) Screen COVID-19 ([facility]ESA) COVID-19 Clin Com Influenza Type A (AMANDA) Influenza Type B (AMANDA) Influenza A & B Note TB Test (T-Spot) Com Negative TB Test Nil Control Passed TB Test Panel A 1 TB Test Panel B 0 TB Test Positive Cntrl Passed 12/12/24 12/13/24 12/13/24 06:24 06:14 12:13 WBC RBC Hgb Hct MCV MCH MCHC RDW Plt Count MPV Immature Gran % (Auto) Neut % (Auto) Lymph % (Auto) Cameron % (Auto) Eos % (Auto) Baso % (Auto) Lymph # (Auto) Cameron # (Auto) Eos # (Auto) Baso # (Auto) Abs Immat Gran (auto) Absolute Neuts (auto) Absolute Nucleated RBC Nucleated RBC % (auto) Smear Tech's Comments Hold Purple Top VBG pH VBG pCO2 VBG pO2 VBG HCO3 VBG O2 Saturation VBG Base Excess Sodium 135 Potassium 4.4 Chloride 103 Carbon Dioxide 20 L Anion Gap 16 BUN 32 H Creatinine 1.39 Estim Creat Clear Calc 24.1 Estimated GFR 37 POC Glucose 148 H 151 H Random Glucose 351 H* Estimat Average Glucose Hemoglobin A1c % Osmolality Lactic Acid Calcium 9.3 Magnesium Iron TIBC % Saturation Unsat Iron Binding Total Bilirubin AST ALT Alkaline Phosphatase Total Protein Albumin Triglycerides Cholesterol LDL Cholesterol, Calc HDL Cholesterol Lipase TSH Free T4 Urine Color Urine Appearance Urine pH Ur Specific Herrick Urine Protein Urine Glucose (UA) Urine Ketones Urine Blood Urine Nitrite Ur Leukocyte Esterase Urine RBC Urine WBC Ur Squamous Epith Cells Urine Bacteria Hyaline Casts Urine Osmolality Ur Random Sodium Urine Opiates Screen Ur Buprenorphine Scrn Ur Oxycodone Screen Urine Methadone Screen Urine Fentanyl Screen Ur Barbiturates Screen Carbamazepine Ur Phencyclidine Scrn Ur Amphetamines Screen U Benzodiazepines Scrn Urine Cocaine Screen U Marijuana (THC) Screen COVID-19 ([facility]ES[facility]) COVID-19 Clin Com Influenza Type A (AMANDA) Influenza Type B (AMANDA) Influenza A & B Note TB Test (T-Spot) Com TB Test Nil Control TB Test Panel A TB Test Panel B TB Test Positive Cntrl 12/14/24 12/15/24 12/15/24 06:21 06:11 21:16 WBC RBC Hgb Hct MCV MCH MCHC RDW Plt Count MPV Immature Gran % (Auto) Neut % (Auto) Lymph % (Auto) Cameron % (Auto) Eos % (Auto) Baso % (Auto) Lymph # (Auto) Cameron # (Auto) Eos # (Auto) Baso # (Auto) Abs Immat Gran (auto) Absolute Neuts (auto) Absolute Nucleated RBC Nucleated RBC % (auto) Smear Tech's Comments Hold Purple Top VBG pH VBG pCO2 VBG pO2 VBG HCO3 VBG O2 Saturation VBG Base Excess Sodium Potassium Chloride Carbon Dioxide Anion Gap BUN Creatinine Estim Creat Clear Calc Estimated GFR POC Glucose 150 H 158 H 106 Random Glucose Estimat Average Glucose Hemoglobin A1c % Osmolality Lactic Acid Calcium Magnesium Iron TIBC % Saturation Unsat Iron Binding Total Bilirubin AST ALT Alkaline Phosphatase Total Protein Albumin Triglycerides Cholesterol LDL Cholesterol, Calc HDL Cholesterol Lipase TSH Free T4 Urine Color Urine Appearance Urine pH Ur Specific Herrick Urine Protein Urine Glucose (UA) Urine Ketones Urine Blood Urine Nitrite Ur Leukocyte Esterase Urine RBC Urine WBC Ur Squamous Epith Cells Urine Bacteria Hyaline Casts Urine Osmolality Ur Random Sodium Urine Opiates Screen Ur Buprenorphine Scrn Ur Oxycodone Screen Urine Methadone Screen Urine Fentanyl Screen Ur Barbiturates Screen Carbamazepine Ur Phencyclidine Scrn Ur Amphetamines Screen U Benzodiazepines Scrn Urine Cocaine Screen U Marijuana (THC) Screen COVID-19 (TRESA) COVID-19 Clin Com Influenza Type A (AMANDA) Influenza Type B (AMANDA) Influenza A & B Note TB Test (T-Spot) Com TB Test Nil Control TB Test Panel A TB Test Panel B TB Test Positive [facility] 12/16/24 12/16/24 12/16/24 06:45 12:26 15:35 WBC RBC Hgb Hct MCV MCH MCHC RDW Plt Count MPV Immature Gran % (Auto) Neut % (Auto) Lymph % (Auto) Cameron % (Auto) Eos % (Auto) Baso % (Auto) Lymph # (Auto) Cameron # (Auto) Eos # (Auto) Baso # (Auto) Abs Immat Gran (auto) Absolute Neuts (auto) Absolute Nucleated RBC Nucleated RBC % (auto) Smear Tech's Comments Hold Purple Top VBG pH VBG pCO2 VBG pO2 VBG HCO3 VBG O2 Saturation VBG Base Excess Sodium Potassium Chloride Carbon Dioxide Anion Gap BUN Creatinine Estim Creat Clear Calc Estimated GFR POC Glucose 194 H Random Glucose Estimat Average Glucose Hemoglobin A1c % Osmolality Lactic Acid Calcium Magnesium Iron TIBC % Saturation Unsat Iron Binding Total Bilirubin AST ALT Alkaline Phosphatase Total Protein Albumin Triglycerides Cholesterol LDL Cholesterol, Calc HDL Cholesterol Lipase TSH Free T4 Urine Color Urine Appearance Urine pH Ur Specific Herrick Urine Protein Urine Glucose (UA) Urine Ketones Urine Blood Urine Nitrite Ur Leukocyte Esterase Urine RBC Urine WBC Ur Squamous Epith Cells Urine Bacteria Hyaline Casts Urine Osmolality Ur Random Sodium Urine Opiates Screen Ur Buprenorphine Scrn Ur Oxycodone Screen Urine Methadone Screen Urine Fentanyl Screen Ur Barbiturates Screen Carbamazepine Ur Phencyclidine Scrn Ur Amphetamines Screen U Benzodiazepines Scrn Urine Cocaine Screen U Marijuana (THC) Screen COVID-19 (TRESA) Negative COVID-19 Clin Com See Note Influenza Type A (AMANDA) Negative Influenza Type B (AMANDA) Negative Influenza A & B Note See Note TB Test (T-Spot) Com TB Test Nil Control TB Test Panel A TB Test Panel B TB Test Positive [facility] 12/16/24 12/17/24 12/19/24 20:01 19:13 10:21 WBC RBC Hgb Hct MCV MCH MCHC RDW Plt Count MPV Immature Gran % (Auto) Neut % (Auto) Lymph % (Auto) Cameron % (Auto) Eos % (Auto) Baso % (Auto) Lymph # (Auto) Cameron # (Auto) Eos # (Auto) Baso # (Auto) Abs Immat Gran (auto) Absolute Neuts (auto) Absolute Nucleated RBC Nucleated RBC % (auto) Smear Tech's Comments Hold Purple Top VBG pH VBG pCO2 VBG pO2 VBG HCO3 VBG O2 Saturation VBG Base Excess Sodium Potassium Chloride Carbon Dioxide Anion Gap BUN Creatinine Estim Creat Clear Calc Estimated GFR POC Glucose 213 H 265 H 408 H* Random Glucose Estimat Average Glucose Hemoglobin A1c % Osmolality Lactic Acid Calcium Magnesium Iron TIBC % Saturation Unsat Iron Binding Total Bilirubin AST ALT Alkaline Phosphatase Total Protein Albumin Triglycerides Cholesterol LDL Cholesterol, Calc HDL Cholesterol Lipase TSH Free T4 Urine Color Urine Appearance Urine pH Ur Specific Herrick Urine Protein Urine Glucose (UA) Urine Ketones Urine Blood Urine Nitrite Ur Leukocyte Esterase Urine RBC Urine WBC Ur Squamous Epith Cells Urine Bacteria Hyaline Casts Urine Osmolality Ur Random Sodium Urine Opiates Screen Ur Buprenorphine Scrn Ur Oxycodone Screen Urine Methadone Screen Urine Fentanyl Screen Ur Barbiturates Screen Carbamazepine Ur Phencyclidine Scrn Ur Amphetamines Screen U Benzodiazepines Scrn Urine Cocaine Screen U Marijuana (THC) Screen COVID-19 ([facility]ESA) COVID-19 Clin Com Influenza Type A (AMANDA) Influenza Type B (AMANDA) Influenza A & B Note TB Test (T-Spot) Com TB Test Nil Control TB Test Panel A TB Test Panel B TB Test Positive [facility] 12/19/24 12/19/24 12/20/24 16:02 20:57 06:20 WBC RBC Hgb Hct MCV MCH MCHC RDW Plt Count MPV Immature Gran % (Auto) Neut % (Auto) Lymph % (Auto) Cameron % (Auto) Eos % (Auto) Baso % (Auto) Lymph # (Auto) Cameron # (Auto) Eos # (Auto) Baso # (Auto) Abs Immat Gran (auto) Absolute Neuts (auto) Absolute Nucleated RBC Nucleated RBC % (auto) Smear Tech's Comments Hold Purple Top VBG pH VBG pCO2 VBG pO2 VBG HCO3 VBG O2 Saturation VBG Base Excess Sodium Potassium Chloride Carbon Dioxide Anion Gap BUN Creatinine Estim Creat Clear Calc Estimated GFR POC Glucose 115 101 181 H Random Glucose Estimat Average Glucose Hemoglobin A1c % Osmolality Lactic Acid Calcium Magnesium Iron TIBC % Saturation Unsat Iron Binding Total Bilirubin AST ALT Alkaline Phosphatase Total Protein Albumin Triglycerides Cholesterol LDL Cholesterol, Calc HDL Cholesterol Lipase TSH Free T4 Urine Color Urine Appearance Urine pH Ur Specific Herrick Urine Protein Urine Glucose (UA) Urine Ketones Urine Blood Urine Nitrite Ur Leukocyte Esterase Urine RBC Urine WBC Ur Squamous Epith Cells Urine Bacteria Hyaline Casts Urine Osmolality Ur Random Sodium Urine Opiates Screen Ur Buprenorphine Scrn Ur Oxycodone Screen Urine Methadone Screen Urine Fentanyl Screen Ur Barbiturates Screen Carbamazepine Ur Phencyclidine Scrn Ur Amphetamines Screen U Benzodiazepines Scrn Urine Cocaine Screen U Marijuana (THC) Screen COVID-19 (TRESA) COVID-19 Clin Com Influenza Type A (AMANDA) Influenza Type B (AMANDA) Influenza A & B Note TB Test (T-Spot) Com TB Test Nil Control TB Test Panel A TB Test Panel B TB Test Positive Cntrl 12/20/24 12/20/24 12/20/24 08:43 10:41 15:49 WBC RBC Hgb Hct MCV MCH MCHC RDW Plt Count MPV Immature Gran % (Auto) Neut % (Auto) Lymph % (Auto) Cameron % (Auto) Eos % (Auto) Baso % (Auto) Lymph # (Auto) Cameron # (Auto) Eos # (Auto) Baso # (Auto) Abs Immat Gran (auto) Absolute Neuts (auto) Absolute Nucleated RBC Nucleated RBC % (auto) Smear Tech's Comments Hold Purple Top VBG pH VBG pCO2 VBG pO2 VBG HCO3 VBG O2 Saturation VBG Base Excess Sodium 140 Potassium 5.2 H Chloride 107 Carbon Dioxide 25 Anion Gap 13 BUN 27 H Creatinine 1.08 Estim Creat Clear Calc 28.6 Estimated GFR 49 POC Glucose 223 H 177 H Random Glucose 266 H Estimat Average Glucose Hemoglobin A1c % Osmolality Lactic Acid Calcium 9.0 Magnesium Iron TIBC % Saturation Unsat Iron Binding Total Bilirubin 0.3 AST 66 H ALT 70 H Alkaline Phosphatase 60 Total Protein 6.6 Albumin 3.6 Triglycerides Cholesterol LDL Cholesterol, Calc HDL Cholesterol Lipase TSH Free T4 Urine Color Urine Appearance Urine pH Ur Specific Herrick Urine Protein Urine Glucose (UA) Urine Ketones Urine Blood Urine Nitrite Ur Leukocyte Esterase Urine RBC Urine WBC Ur Squamous Epith Cells Urine Bacteria Hyaline Casts Urine Osmolality Ur Random Sodium Urine Opiates Screen Ur Buprenorphine Scrn Ur Oxycodone Screen Urine Methadone Screen Urine Fentanyl Screen Ur Barbiturates Screen Carbamazepine Ur Phencyclidine Scrn Ur Amphetamines Screen U Benzodiazepines Scrn Urine Cocaine Screen U Marijuana (THC) Screen COVID-19 (TRESA) COVID-19 Clin Com Influenza Type A (AMANDA) Influenza Type B (AMANDA) Influenza A & B Note TB Test (T-Spot) Com TB Test Nil Control TB Test Panel A TB Test Panel B TB Test Positive Cntrl 0812/21/24 12/21/24 06:20 11:49 16:10 WBC RBC Hgb Hct MCV MCH MCHC RDW Plt Count MPV Immature Gran % (Auto) Neut % (Auto) Lymph % (Auto) Cameron % (Auto) Eos % (Auto) Baso % (Auto) Lymph # (Auto) Cameron # (Auto) Eos # (Auto) Baso # (Auto) Abs Immat Gran (auto) Absolute Neuts (auto) Absolute Nucleated RBC Nucleated RBC % (auto) Smear Tech's Comments Hold Purple Top VBG pH VBG pCO2 VBG pO2 VBG HCO3 VBG O2 Saturation VBG Base Excess Sodium Potassium Chloride Carbon Dioxide Anion Gap BUN Creatinine Estim Creat Clear Calc Estimated GFR POC Glucose 170 H 201 H 141 H Random Glucose Estimat Average Glucose Hemoglobin A1c % Osmolality Lactic Acid Calcium Magnesium Iron TIBC % Saturation Unsat Iron Binding Total Bilirubin AST ALT Alkaline Phosphatase Total Protein Albumin Triglycerides Cholesterol LDL Cholesterol, Calc HDL Cholesterol Lipase TSH Free T4 Urine Color Urine Appearance Urine pH Ur Specific Herrick Urine Protein Urine Glucose (UA) Urine Ketones Urine Blood Urine Nitrite Ur Leukocyte Esterase Urine RBC Urine WBC Ur Squamous Epith Cells Urine Bacteria Hyaline Casts Urine Osmolality Ur Random Sodium Urine Opiates Screen Ur Buprenorphine Scrn Ur Oxycodone Screen Urine Methadone Screen Urine Fentanyl Screen Ur Barbiturates Screen Carbamazepine Ur Phencyclidine Scrn Ur Amphetamines Screen U Benzodiazepines Scrn Urine Cocaine Screen U Marijuana (THC) Screen COVID-19 (RTESA) COVID-19 Clin Com Influenza Type A (AMANDA) Influenza Type B (AMANDA) Influenza A & B Note TB Test (T-Spot) Com TB Test Nil Control TB Test Panel A TB Test Panel B TB Test Positive [facility] 12/21/24 12/22/24 12/22/24 20:59 06:39 11:34 WBC RBC Hgb Hct MCV MCH MCHC RDW Plt Count MPV Immature Gran % (Auto) Neut % (Auto) Lymph % (Auto) Cameron % (Auto) Eos % (Auto) Baso % (Auto) Lymph # (Auto) Cameron # (Auto) Eos # (Auto) Baso # (Auto) Abs Immat Gran (auto) Absolute Neuts (auto) Absolute Nucleated RBC Nucleated RBC % (auto) Smear Tech's Comments Hold Purple Top VBG pH VBG pCO2 VBG pO2 VBG HCO3 VBG O2 Saturation VBG Base Excess Sodium Potassium Chloride Carbon Dioxide Anion Gap BUN Creatinine Estim Creat Clear Calc Estimated GFR POC Glucose 270 H 217 H 134 H Random Glucose Estimat Average Glucose Hemoglobin A1c % Osmolality Lactic Acid Calcium Magnesium Iron TIBC % Saturation Unsat Iron Binding Total Bilirubin AST ALT Alkaline Phosphatase Total Protein Albumin Triglycerides Cholesterol LDL Cholesterol, Calc HDL Cholesterol Lipase TSH Free T4 Urine Color Urine Appearance Urine pH Ur Specific Herrick Urine Protein Urine Glucose (UA) Urine Ketones Urine Blood Urine Nitrite Ur Leukocyte Esterase Urine RBC Urine WBC Ur Squamous Epith Cells Urine Bacteria Hyaline Casts Urine Osmolality Ur Random Sodium Urine Opiates Screen Ur Buprenorphine Scrn Ur Oxycodone Screen Urine Methadone Screen Urine Fentanyl Screen Ur Barbiturates Screen Carbamazepine Ur Phencyclidine Scrn Ur Amphetamines Screen U Benzodiazepines Scrn Urine Cocaine Screen U Marijuana (THC) Screen COVID-19 (TRESA) COVID-19 Clin Com Influenza Type A (AMANDA) Influenza Type B (AMANDA) Influenza A & B Note TB Test (T-Spot) Com TB Test Nil Control TB Test Panel A TB Test Panel B TB Test Positive Cntrl 12/22/24 12/22/24 12/23/24 16:32 20:04 06:23 WBC RBC Hgb Hct MCV MCH MCHC RDW Plt Count MPV Immature Gran % (Auto) Neut % (Auto) Lymph % (Auto) Cameron % (Auto) Eos % (Auto) Baso % (Auto) Lymph # (Auto) Cameron # (Auto) Eos # (Auto) Baso # (Auto) Abs Immat Gran (auto) Absolute Neuts (auto) Absolute Nucleated RBC Nucleated RBC % (auto) Smear Tech's Comments Hold Purple Top VBG pH VBG pCO2 VBG pO2 VBG HCO3 VBG O2 Saturation VBG Base Excess Sodium Potassium Chloride Carbon Dioxide Anion Gap BUN Creatinine Estim Creat Clear Calc Estimated GFR POC Glucose 200 H 76 237 H Random Glucose Estimat Average Glucose Hemoglobin A1c % Osmolality Lactic Acid Calcium Magnesium Iron TIBC % Saturation Unsat Iron Binding Total Bilirubin AST ALT Alkaline Phosphatase Total Protein Albumin Triglycerides Cholesterol LDL Cholesterol, Calc HDL Cholesterol Lipase TSH Free T4 Urine Color Urine Appearance Urine pH Ur Specific Herrick Urine Protein Urine Glucose (UA) Urine Ketones Urine Blood Urine Nitrite Ur Leukocyte Esterase Urine RBC Urine WBC Ur Squamous Epith Cells Urine Bacteria Hyaline Casts Urine Osmolality Ur Random Sodium Urine Opiates Screen Ur Buprenorphine Scrn Ur Oxycodone Screen Urine Methadone Screen Urine Fentanyl Screen Ur Barbiturates Screen Carbamazepine Ur Phencyclidine Scrn Ur Amphetamines Screen U Benzodiazepines Scrn Urine Cocaine Screen U Marijuana (THC) Screen COVID-19 (TRESA) COVID-19 Clin Com Influenza Type A (AMANDA) Influenza Type B (AMANDA) Influenza A & B Note TB Test (T-Spot) Com TB Test Nil Control TB Test Panel A TB Test Panel B TB Test Positive [facility] 12/23/24 12/23/24 12/23/24 11:32 16:20 19:35 WBC RBC Hgb Hct MCV MCH MCHC RDW Plt Count MPV Immature Gran % (Auto) Neut % (Auto) Lymph % (Auto) Cameron % (Auto) Eos % (Auto) Baso % (Auto) Lymph # (Auto) Cameron # (Auto) Eos # (Auto) Baso # (Auto) Abs Immat Gran (auto) Absolute Neuts (auto) Absolute Nucleated RBC Nucleated RBC % (auto) Smear Tech's Comments Hold Purple Top VBG pH VBG pCO2 VBG pO2 VBG HCO3 VBG O2 Saturation VBG Base Excess Sodium Potassium Chloride Carbon Dioxide Anion Gap BUN Creatinine Estim Creat Clear Calc Estimated GFR POC Glucose 114 125 H 134 H Random Glucose Estimat Average Glucose Hemoglobin A1c % Osmolality Lactic Acid Calcium Magnesium Iron TIBC % Saturation Unsat Iron Binding Total Bilirubin AST ALT Alkaline Phosphatase Total Protein Albumin Triglycerides Cholesterol LDL Cholesterol, Calc HDL Cholesterol Lipase TSH Free T4 Urine Color Urine Appearance Urine pH Ur Specific Herrick Urine Protein Urine Glucose (UA) Urine Ketones Urine Blood Urine Nitrite Ur Leukocyte Esterase Urine RBC Urine WBC Ur Squamous Epith Cells Urine Bacteria Hyaline Casts Urine Osmolality Ur Random Sodium Urine Opiates Screen Ur Buprenorphine Scrn Ur Oxycodone Screen Urine Methadone Screen Urine Fentanyl Screen Ur Barbiturates Screen Carbamazepine Ur Phencyclidine Scrn Ur Amphetamines Screen U Benzodiazepines Scrn Urine Cocaine Screen U Marijuana (THC) Screen COVID-19 (TRESA) COVID-19 Clin Com Influenza Type A (AMANDA) Influenza Type B (AMANDA) Influenza A & B Note TB Test (T-Spot) Com TB Test Nil Control TB Test Panel A TB Test Panel B TB Test Positive [facility] 12/24/24 12/24/24 12/24/24 06:14 11:21 16:11 WBC RBC Hgb Hct MCV MCH MCHC RDW Plt Count MPV Immature Gran % (Auto) Neut % (Auto) Lymph % (Auto) Cameron % (Auto) Eos % (Auto) Baso % (Auto) Lymph # (Auto) Cameron # (Auto) Eos # (Auto) Baso # (Auto) Abs Immat Gran (auto) Absolute Neuts (auto) Absolute Nucleated RBC Nucleated RBC % (auto) Smear Tech's Comments Hold Purple Top VBG pH VBG pCO2 VBG pO2 VBG HCO3 VBG O2 Saturation VBG Base Excess Sodium Potassium Chloride Carbon Dioxide Anion Gap BUN Creatinine Estim Creat Clear Calc Estimated GFR POC Glucose 212 H 168 H 97 Random Glucose Estimat Average Glucose Hemoglobin A1c % Osmolality Lactic Acid Calcium Magnesium Iron TIBC % Saturation Unsat Iron Binding Total Bilirubin AST ALT Alkaline Phosphatase Total Protein Albumin Triglycerides Cholesterol LDL Cholesterol, Calc HDL Cholesterol Lipase TSH Free T4 Urine Color Urine Appearance Urine pH Ur Specific Herrick Urine Protein Urine Glucose (UA) Urine Ketones Urine Blood Urine Nitrite Ur Leukocyte Esterase Urine RBC Urine WBC Ur Squamous Epith Cells Urine Bacteria Hyaline Casts Urine Osmolality Ur Random Sodium Urine Opiates Screen Ur Buprenorphine Scrn Ur Oxycodone Screen Urine Methadone Screen Urine Fentanyl Screen Ur Barbiturates Screen Carbamazepine Ur Phencyclidine Scrn Ur Amphetamines Screen U Benzodiazepines Scrn Urine Cocaine Screen U Marijuana (THC) Screen COVID-19 (TRESA) COVID-19 Clin Com Influenza Type A (AMANDA) Influenza Type B (AMANDA) Influenza A & B Note TB Test (T-Spot) Com TB Test Nil Control TB Test Panel A TB Test Panel B TB Test Positive [facility] 12/24/24 12/25/24 20:01 05:45 WBC RBC Hgb Hct MCV MCH MCHC RDW Plt Count MPV Immature Gran % (Auto) Neut % (Auto) Lymph % (Auto) Cameron % (Auto) Eos % (Auto) Baso % (Auto) Lymph # (Auto) Cameron # (Auto) Eos # (Auto) Baso # (Auto) Abs Immat Gran (auto) Absolute Neuts (auto) Absolute Nucleated RBC Nucleated RBC % (auto) Smear Tech's Comments Hold Purple Top VBG pH VBG pCO2 VBG pO2 VBG HCO3 VBG O2 Saturation VBG Base Excess Sodium Potassium Chloride Carbon Dioxide Anion Gap BUN Creatinine Estim Creat Clear Calc Estimated GFR POC Glucose 208 H 220 H Random Glucose Estimat Average Glucose Hemoglobin A1c % Osmolality Lactic Acid Calcium Magnesium Iron TIBC % Saturation Unsat Iron Binding Total Bilirubin AST ALT Alkaline Phosphatase Total Protein Albumin Triglycerides Cholesterol LDL Cholesterol, Calc HDL Cholesterol Lipase TSH Free T4 Urine Color Urine Appearance Urine pH Ur Specific Herrick Urine Protein Urine Glucose (UA) Urine Ketones Urine Blood Urine Nitrite Ur Leukocyte Esterase Urine RBC Urine WBC Ur Squamous Epith Cells Urine Bacteria Hyaline Casts Urine Osmolality Ur Random Sodium Urine Opiates Screen Ur Buprenorphine Scrn Ur Oxycodone Screen Urine Methadone Screen Urine Fentanyl Screen Ur Barbiturates Screen Carbamazepine Ur Phencyclidine Scrn Ur Amphetamines Screen U Benzodiazepines Scrn Urine Cocaine Screen U Marijuana (THC) Screen COVID-19 ([facility]ESA) COVID-19 Clin Com Influenza Type A (AMANDA) Influenza Type B (AMANDA) Influenza A & B Note TB Test (T-Spot) Com TB Test Nil Control TB Test Panel A TB Test Panel B TB Test Positive Cntrl Airway Mallampati Class: II TM Dist: <=3cm Neck ROM: Full Loose/Missing/Broken Teeth: Yes and Upper Heart: ok Lungs: ok Assessment and Plan Assessment Anesthesia Assessment: Anesthesia Plan Discussed Final Anesthetic Review Family History of Problems with Anesthesia: No History of Problems with Anesthesia: No NPO: Yes ASA Class: III Final Preanesthetic Review: No Changes in Pt Med Stat, Meds/Allgs Chart Reviewed, Consent Obtained/Reviewed and Anes Risks/Benef Reviewed Patient Risk: Intermediate Procedure Risk: Intermediate Anesthetic Plan Anesthetic Plan: GA and Agree w/ Assess. and Plan Disposition: Standard PACU
--- NOTE | 2024-12-25 08:15 | HO.ECTPROC ---
ECT Procedure Note Diagnosis/Treatment Date of Service: 12/25/24 Diagnosis: Major Depressive Disorder Previous ECT Date: 12/20/24 Current Treatment Number: 2 Treatment: Series Interval Clinical Notes: mood is better Time: Total time managing care of this patient today ____ minutes. ECT Settings Device: THYMATRON DGx Electrode Placement: Right Unilateral Program/Pulse Width: 0.50 Energy Percent: 100 Seizure Duration By EEG (in seconds): 7 By Motor Observation (in seconds): 4 Medications Administration General Anesthetic: Etomidate (14) Muscle Relaxant: Succinylcholine (80) Ancillary Medications Anti-emetics: Other (Flumazenil 0.1mg pre) Airway Management Airway Management: Bag Mask Ventilation Treatment Recommendations No Changes Recommended: No change (consider going to Succ 60mg (instead of 80mg per anesthesiologist) ) Electrode Placement: Right Unilateral Program/Pulse Width: 0.50 Energy Percent: 100 Notes: Patient reports better mood Another very short seizure of about 7 seconds (received Flumazenil 0.1mg pre-ECT since got Clonazepam last night) However, recommend to continue with same parameters since her mood is better of note, Anesthesiologist recommends going to Succ 60mg (instead of 80mg)
--- NOTE | 2024-12-25 09:15 | HO.PSYCHPN ---
Subjective Subjective Date of Service: 12/25/24 Reason For Visit: SI with plan to OD on medications, increased anxie Subjective Notes: Conditional Voluntary Interim History: Pt slept through the night. Pt reports she is doing overall well. She had ECT this AM. No headache, no physical concerns or complaints. BP stable afterwards. She has been visible on the unit, social with select peers and overall appears much calmer. Plan to continue ECT. Medication Compliance: Yes Side effects from medications: No Review of Systems Review of Systems GI SE of antibiotic Yes all other systems are reviewed and are negative Mental Status Exam Mental Status Exam Narrative: She is alert, pleasant and cooperative. Speech is normal. Moderate eye contact. Affect is appropriate and congruent. Mood: better. No acute signs of psychosis. Cognitively impaired. Judgment is impaired Diagnostics Vital Signs (24Hr): Vital Signs - 24 hr 12/24/24 20:00 12/25/24 05:48 12/25/24 07:02 Temperature 97.8 F 98.5 F 97.8 F Pulse Rate 88 88 86 Respiratory Rate 20 20 16 Blood Pressure 125/61 116/61 123/68 Pulse Oximetry 98 97 94 Oxygen Delivery Method Room Air Room Air Room Air BMI result Body Mass Index 22.5 Labs 11/02/24 20:14 12/20/24 08:43 Labs: Laboratory Results - last 48 hr 12/23/24 12/23/24 12/23/24 11:32 16:20 19:35 POC Glucose 114 125 H 134 H 12/24/24 12/24/24 12/24/24 06:14 11:21 16:11 POC Glucose 212 H 168 H 97 12/24/24 12/25/24 20:01 05:45 POC Glucose 208 H 220 H Imaging Radiology Impressions: ITS Impressions Hip/Pelvis X-Ray 11/05/24 11:00 IMPRESSION: Unremarkable examination of the left hip. Electronically signed by: Sam Saini MD 11/05/2024 11:13 AM EDT RP KUB X-Ray 11/06/24 09:20 IMPRESSION: Large amount of stool throughout the colon. Electronically signed by: Sam Saini MD 11/06/2024 09:34 AM EDT RP Head CT 11/08/24 14:58 IMPRESSION: Left frontal soft tissue swelling. No acute intracranial abnormality. Electronically signed by: Sam Saini MD 11/08/2024 03:18 PM EDT RP Medications Medications Current Medications Acetaminophen (Acetaminophen 325 Mg Tablet) 650 mg PO Q6H PRN PRN Reason: Headache/Pain, Scale 1-10 Last Admin: 12/24/24 09:45 Dose: 650 mg Al Hydroxide/Mg Hydroxide (Magnesium Hydrox/Alum Hydrox 30 Ml Oral.Susp) 30 ml PO Q6H PRN PRN Reason: Heartburn/Nausea Last Admin: 12/17/24 06:56 Dose: 30 ml Albuterol Sulfate (Albuterol Sulfate (0.083%) 2.5 Mg/3 Ml Vial.Neb) 2.5 mg INHALE ONCE PRN PRN Reason: Shortness of Breath/Wheezing Last Admin: 12/16/24 07:11 Dose: 2.5 mg Albuterol Sulfate (Albuterol Sulfate 90 Mcg 8 Gm Inhaler) 4 puff INHALE Q4H PRN PRN Reason: Shortness Of Breath Or Wheezin Amlodipine Besylate (Amlodipine Besylate 2.5 Mg Tablet) 2.5 mg PO DAILY [facility]; Protocol Last Admin: 12/24/24 08:19 Dose: 2.5 mg Atorvastatin Calcium (Atorvastatin Calcium 20 Mg Tablet) 20 mg PO DAILY [facility] Last Admin: 12/24/24 08:18 Dose: 20 mg Bisacodyl (Bisacodyl 10 Mg Supp.Rect) 10 mg CO BEDTIME PRN PRN Reason: Constipation Last Admin: 11/04/24 20:37 Dose: 10 mg Bupropion HCl (Bupropion Hcl Xl 300 Mg Tab.Er.24h) 300 mg PO DAILY [facility]ARD Last Admin: 12/24/24 08:19 Dose: 300 mg Buspirone HCl (Buspirone Hcl 10 Mg Tablet) 20 mg PO TID [facility]ICHARD Last Admin: 12/24/24 20:36 Dose: 20 mg Calcium Carbonate (Calcium Carbonate 750 Mg Tab.Chew) 750 mg PO Q4H PRN PRN Reason: Heartburn Last Admin: 11/30/24 21:34 Dose: 750 mg Clonazepam (Clonazepam Odt 0.125 Mg Tab.Rapdis) 0.25 mg PO BEDTIME RICHARD Last Admin: 12/24/24 20:35 Dose: 0.25 mg Clonazepam (Clonazepam Odt 0.125 Mg Tab.Rapdis) 0.25 mg PO BID PRN PRN Reason: severe anxiety Last Admin: 12/24/24 11:55 Dose: 0.25 mg Dicyclomine HCl (Dicyclomine Hcl 10 Mg Capsule) 10 mg PO Q4H PRN PRN Reason: abdominal cramping Last Admin: 12/17/24 13:55 Dose: 10 mg Docusate Sodium (Docusate Sodium 100 Mg Capsule) 100 mg PO BID [facility] Last Admin: 12/24/24 20:35 Dose: 100 mg Duloxetine HCl (Duloxetine Hcl 60 Mg Capsule.Dr) 60 mg PO DAILY [facility] Last Admin: 12/24/24 08:20 Dose: 60 mg Fluticasone/Vilanterol (Fluticasone/Vilanterol 100/25 Blst.W.Dev) 1 puff INHALE RDAILY [facility] Last Admin: 12/24/24 08:17 Dose: 1 puff Gabapentin (Gabapentin 100 Mg Capsule) 100 mg PO TID [facility] Last Admin: 12/24/24 20:35 Dose: 100 mg Glipizide (Glipizide Xl 2.5 Mg Tab.Er.24) 2.5 mg PO DAILY [facility] Last Admin: 12/24/24 08:18 Dose: 2.5 mg Guaifenesin (Guaifenesin La 600 Mg Tab.Er.12h) 1,200 mg PO BID PRN PRN Reason: Cough Last Admin: 12/16/24 14:35 Dose: 1,200 mg Insulin Human Lispro (Insulin Lispro 100 Unit/Ml 3 Ml Vial) 5 unit SUBCUT QIDACHS [facility]; Protocol Last Admin: 12/24/24 20:40 Dose: 5 unit Lisinopril (Lisinopril 2.5 Mg Tablet) 2.5 mg PO DAILY [facility]; Protocol Last Admin: 12/24/24 08:20 Dose: 2.5 mg Magnesium Hydroxide (Milk Of Magnesia 30 Ml Oral.Susp) 30 ml PO DAILY PRN PRN Reason: Constipation Last Admin: 11/04/24 16:49 Dose: 30 ml Metoclopramide HCl (Metoclopramide Hcl Oral Soln 10 Mg/10 Ml Solution) 5 mg PO TIDAC [facility] Last Admin: 12/24/24 16:21 Dose: 5 mg Mirtazapine (Mirtazapine 30 Mg Tablet) 30 mg PO BEDTIME [facility] Last Admin: 12/24/24 20:35 Dose: 30 mg Naloxone HCl (Naloxone Hcl 0.4 Mg/Ml Vial) 0.04 mg IVPUSH Q5M PRN PRN Reason: Excessive sedation or RR < 8 Omeprazole (Omeprazole 20 Mg Capsule.Dr) 20 mg PO BID@0630,1630 [facility] Last Admin: 12/25/24 05:38 Dose: Not Given Ondansetron HCl (Ondansetron Odt 4 Mg Tab.Rapdis) 4 mg TRANSLINGU Q4H PRN PRN Reason: Nausea and Vomiting Last Admin: 12/17/24 11:23 Dose: 4 mg Polyethylene Glycol (Polyethylene Glycol 3350 17 Gm Powd.Pack) 17 gm PO BID [facility] Last Admin: 12/24/24 20:36 Dose: Not Given Pramipexole Dihydrochloride (Pramipexole Di-Hcl 0.125 Mg Tablet) 0.125 mg PO DAILY [facility] Last Admin: 12/24/24 08:19 Dose: 0.125 mg Pyridoxine HCl (Pyridoxine Hcl (Vitamin B6) 50 Mg Tablet) 50 mg PO DAILY [facility] Last Admin: 12/24/24 08:18 Dose: 50 mg Ropinirole HCl (Ropinirole Hcl 2 Mg Tablet) 2 mg PO DAILY@1700 [facility] Last Admin: 12/24/24 16:58 Dose: 2 mg Simethicone (Simethicone 80 Mg Tab.Chew) 80 mg PO QIDWMHS [facility] Last Admin: 12/24/24 20:36 Dose: 80 mg Trazodone HCl (Trazodone Hcl 50 Mg Tablet) 50 mg PO BEDTIME MRX1 PRN PRN Reason: Insomnia Last Admin: 12/22/24 21:20 Dose: 50 mg Allergies Allergies Allergy/AdvReac Type Severity Reaction Status Date / Time ampicillin Allergy Rash Verified 10/20/24 19:28 morphine Allergy Rash Verified 10/20/24 19:28 Penicillins Allergy Rash Verified 10/20/24 19:28 pork derived (porcine) Allergy Vomiting Verified 11/10/24 17:49 Assessment & Plan Assessment & Plan (1) MDD (major depressive disorder), recurrent episode, moderate: Status: Acute Code(s): F33.1 - Major depressive disorder, recurrent, moderate (2) 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 Barreto is a 78 year-old woman with hx of MDD who was assessed by N at request of her son who called 911 after pt had reported suicidal ideation with plan to OD. In the ED, pt adamantly denied suicidal ideation but reports feeling increasingly more depressed due to involuntary, ongoing movement of lower extremities. She attributes her depressed mood and increase anxious mood to RLS. She has also been treated as tardive akathisia, note that she was previously prescribed abilify. It is noted that she may have iron deficiency due to normocytic anemia which can exacerbate RLS. It is unclear which medications for hyperkinetic movements of the legs are actually helpful and furthermore it is not easily to differentiate whether it is tardive akathisia or RLS. She has been on psychotropic medications that are known to cause akathisia such as abilify. She reports subjective sense of restlessness. Involuntary movement seems to be throughout the day. We will have to do trial of medications that target akathisia such as propanolol and ativan versus medications such as pramipexol for RLS (note that in RLS there is an initial relief with dopamine agonist but can make it worse over time). In addition, will try iron deficiency as it is an underlying cause and exacerbating factor in RLS. PLAN 11/14 continue tx. will monitor before making substantial changes every day. 11/15 continue tx. pt somatically preoccupied. 11/16: Continue current management and treatment plan. 11/17: continue current management and treatment plan. 11/18 start buspar 10mg po TID for SHEILA. continue all other meds. 11/19 increase buspar 20mg po TID 11/20 appears calmer, less somatically preoccupied. continue current medications. 11/21 sodium stable. continues to present as less dysphoric, calmer. reports of dizziness (VS not hotn nor orthostatic), ?vertigo, will try low dose of meclizine otherwise will consult hospitalist for further management. 8.2- pt more focused on gi issues- and anxiety/forgetfulness- continue to monitor somatic complaints- dc qid poc 11/25 will lowered ropinirole as it may increasing anxiety, noted that buspar was lowered, do not think this medication was causing fogginess as pt appeared much calmer since we added buspar. She was started on low dose clonazepam. 11/26 continue tx. received one time dose xanax, but reported feeling overly sedated (although did not appear sedated) 11/27 somatically p8: Continue current regimen and plansreoccupied, no change in medications. 11/29 continue tx. 11/30: Continue current regimen and plans 12/01: Continue current plans and regimen 12/02 increase buspar 20mg po TID. 12/03: reports depression not improving, c/o feeling low energy and motivation, saying she needs a mushroom picker. start wellbutrin XL 150 daily tomorrow for depression. also c/o anxiety-provoking and nocturnally loud peer. schedule klonopin 0.25 QHS for insomnia. otherwise continue current mgmt. awaiting placement. 12/04: slept well last night, started wellbutrin this morning without incident. continue current mgmt. will be discharging to [facility]. 12/05: slept well. c/o anxiety at 3-330 in the afternoon. pt to ask for klonopin PRN at 2-230. trend anxiety, T/C DC of wellbutrin if anxiety seems reliably increased since starting it. dispo next week likely. 12/06: anxious. schedule klonopin 0.25 mg Qdaily at 1430 per pt request. otherwise continue current mgmt. 12/07: anxious and depressed. c/o insomnia. will give wellbutrin a few more days to see if insomnia subsides and mood improves. per staf, stable and uneventful presentation. 12/08: depressed. agreeable to increase wellbutrin to 300 mg as of tomorrow. otherwise continue current mgmt. sleeping well. 12/09: started wellbutrin 300 today. c/o URI Sx, start guaifenesin. otherwise continue current mgmt. 12/10: coughin much eves/NOC per staff. pt c/o not happy, cough, and poor sleep. continue mucinex and mental health Tx plan otherwise. 12/11/24: Patient appeared to slept for 8 hours, was medication compliant but refused the MiraLax. Denies side effects. She is observed watching TV in common area. Reported that she feel anxious and depressed. She is worry about when she is leaving as she is going to stay by herself. I am depressed . Self reports that she did not sleep well last night as roommate waking her up at night telling her that she saw dogs. She reports normal stomach pain. She would hope to see the GI doctor after discharge. She reported that she will be discharged on 12/17 but not sure the name of the facility or where it is located. Denies safety concerns, denies hallucinations. No coughing observed this morning. 12/12: c/o unremitting depression, saying she does not want to live like this. interested in ECT, educated re the procedure. obtain risk strat and EKG, discuss in rounds tomorrow morning. otherwise continue current mgmt. 12/13: continues to push for ECT. seen by hospitalist, no relative contraindications to the procedure. case d/w patient's daughter chantelle as well, who avers that pt has been in this state for a long time, it's only getting worse, and medications have not been helpful. johanna supports this trial on the wishes of her mother and MD's recommendation. ECT ordered, will get pt on the schedule as soon as possible. 12/14: Cough-productive, O2 sats are lower , CXR positive. Seen by hospitalist. Antibiotics initiated, R/O pneumonia 12/15: Pt unable to tolerate doxycycline. Hospitalist will change to Ceftin. 12/16: ECT held today due to januvia and respiratory virus. mood slightly improved. plan for weds ECT. 12/17: COVID and flu NEG. c/o nausea, exacerbation of chronic condition, h/o gastroparesis. holding januvia. start reglan for gastroparesis. continue current mgmt otherwise. NPO past MN for ECT tomorrow. 12/18: awaiting med clearance for ECT. planning for ECT monday. otherwise continue current mgmt. glucose noted to be elevated since holding januvia the past several days. 12/19 continue current medications. pt hopefull will have ECT tomorrow. NPO from midnight. 12/20 continue tx. Had ECT #1 no complications noted or reported. 12/21:Continue ECT. 12/22: Increase Klonopin PRN to BID. Otherwise continue current management and treatment plan. 12/23: continue current management and treatment plan. 12/24 continue tx. ECT tomorrow, NPO after midnight. 12/25 continue tx. Reason for continued inpatient stay Substantial Risk for: inability to function Time Spent With Patient Time: Total time managing care of this patient today ____ minutes.
[2024-12-25 10:20] LABS: Glucose, Whole Blood 224 mg/dL (60-115)
[2024-12-25] MEDS: Fluticasone/Vilanterol 100/25 BLST.W.DEV 1 PUFF INHALE (11:08)
[2024-12-25] MEDS: Metoclopramide HCl Oral Soln 10 MG/10 ML SOLUTION 5 MG PO ×2 (11:08→17:04)
[2024-12-25] MEDS: buPROPion HCl XL 300 MG TAB.ER.24H PO (11:09)
[2024-12-25 16:12] LABS: Glucose, Whole Blood 86 mg/dL (60-115)
[2024-12-25 20:21] LABS: Glucose, Whole Blood 281 mg/dL (60-115)
[2024-12-25] MEDS: clonazePAM ODT 0.125 MG TAB.RAPDIS 0.25 MG PO (20:27)
[2024-12-26 06:49] LABS: Glucose, Whole Blood 210 mg/dL (60-115)
[2024-12-26 07:00] VITALS: BMI 23.3
[2024-12-26 08:04] VITALS: BP 152/76; PULSE 90; RESP 18; TEMP 36.1; O2SAT 98
[2024-12-26] MEDS: buPROPion HCl XL 300 MG TAB.ER.24H PO (08:07)
[2024-12-26] MEDS: Metoclopramide HCl Oral Soln 10 MG/10 ML SOLUTION 5 MG PO ×3 (08:08→15:54)
[2024-12-26] MEDS: Fluticasone/Vilanterol 100/25 BLST.W.DEV 1 PUFF INHALE (08:13)
[2024-12-26 11:16] LABS: Glucose, Whole Blood 284 mg/dL (60-115)
--- NOTE | 2024-12-26 14:29 | HO.PSYCHPN ---
Subjective Subjective Date of Service: 12/26/24 Reason For Visit: SI with plan to OD on medications, increased anxie Interim History: seated in milieu, active, social. smiling, pleasant. states she is doing better, looking forward to continuing ECT tomorrow. 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 no other complaints or requests. per staff, hold klSnapplipin tonight. no other notable events or behaviors. Mental Status Exam Mental Status Exam Narrative: She is alert, pleasant and cooperative. Speech is normal. Moderate eye contact. Affect is appropriate and contained. anxiety and depression present but improved. No acute signs of psychosis. Cognitively impaired. Judgment is impaired Diagnostics Vital Signs (24Hr): Vital Signs - 24 hr 12/25/24 20:00 12/26/24 08:04 Temperature 97.3 F 96.9 F Pulse Rate 96 90 Respiratory Rate 18 Blood Pressure 134/67 152/76 H Pulse Oximetry 98 98 Oxygen Delivery Method Room Air Room Air BMI result Body Mass Index 23.3 Labs 11/02/24 20:14 12/20/24 08:43 Labs: Laboratory Results - last 48 hr 12/24/24 12/24/24 12/25/24 16:11 20:01 05:45 POC Glucose 97 208 H 220 H 12/25/24 12/25/24 12/25/24 10:16 16:09 20:08 POC Glucose 224 H 86 281 H 12/26/24 12/26/24 06:42 11:10 POC Glucose 210 H 284 H Imaging Radiology Impressions: ITS Impressions Hip/Pelvis X-Ray 11/05/24 11:00 IMPRESSION: Unremarkable examination of the left hip. Electronically signed by: Sam Saini MD 11/05/2024 11:13 AM EDT RP KUB X-Ray 11/06/24 09:20 IMPRESSION: Large amount of stool throughout the colon. Electronically signed by: Sam Saini MD 11/06/2024 09:34 AM EDT RP Head CT 11/08/24 14:58 IMPRESSION: Left frontal soft tissue swelling. No acute intracranial abnormality. Electronically signed by: Sam Saini MD 11/08/2024 03:18 PM EDT RP Medications Medications Current Medications Acetaminophen (Acetaminophen 325 Mg Tablet) 650 mg PO Q6H PRN PRN Reason: Headache/Pain, Scale 1-10 Last Admin: 12/26/24 08:08 Dose: 650 mg Al Hydroxide/Mg Hydroxide (Magnesium Hydrox/Alum Hydrox 30 Ml Oral.Susp) 30 ml PO Q6H PRN PRN Reason: Heartburn/Nausea Last Admin: 12/17/24 06:56 Dose: 30 ml Albuterol Sulfate (Albuterol Sulfate (0.083%) 2.5 Mg/3 Ml Vial.Neb) 2.5 mg INHALE ONCE PRN PRN Reason: Shortness of Breath/Wheezing Last Admin: 12/16/24 07:11 Dose: 2.5 mg Albuterol Sulfate (Albuterol Sulfate 90 Mcg 8 Gm Inhaler) 4 puff INHALE Q4H PRN PRN Reason: Shortness Of Breath Or Wheezin Amlodipine Besylate (Amlodipine Besylate 2.5 Mg Tablet) 2.5 mg PO DAILY [facility]; Protocol Last Admin: 12/26/24 08:07 Dose: 2.5 mg Atorvastatin Calcium (Atorvastatin Calcium 20 Mg Tablet) 20 mg PO DAILY [facility] Last Admin: 12/26/24 08:07 Dose: 20 mg Bisacodyl (Bisacodyl 10 Mg Supp.Rect) 10 mg [place] BEDTIME PRN PRN Reason: Constipation Last Admin: 11/04/24 20:37 Dose: 10 mg Bupropion HCl (Bupropion Hcl Xl 300 Mg Tab.Er.24h) 300 mg PO DAILY [facility] Last Admin: 12/26/24 08:07 Dose: 300 mg Buspirone HCl (Buspirone Hcl 10 Mg Tablet) 20 mg PO TID [facility] Last Admin: 12/26/24 14:00 Dose: 20 mg Calcium Carbonate (Calcium Carbonate 750 Mg Tab.Chew) 750 mg PO Q4H PRN PRN Reason: Heartburn Last Admin: 11/30/24 21:34 Dose: 750 mg Clonazepam (Clonazepam Odt 0.125 Mg Tab.Rapdis) 0.25 mg PO BID PRN PRN Reason: severe anxiety Last Admin: 12/24/24 11:55 Dose: 0.25 mg Dicyclomine HCl (Dicyclomine Hcl 10 Mg Capsule) 10 mg PO Q4H PRN PRN Reason: abdominal cramping Last Admin: 12/17/24 13:55 Dose: 10 mg Docusate Sodium (Docusate Sodium 100 Mg Capsule) 100 mg PO BID [facility] Last Admin: 12/26/24 08:08 Dose: 100 mg Duloxetine HCl (Duloxetine Hcl 60 Mg Capsule.) 60 mg PO DAILY [facility] Last Admin: 12/26/24 08:08 Dose: 60 mg Fluticasone/Vilanterol (Fluticasone/Vilanterol 100/25 Blst.W.Dev) 1 puff INHALE RDAILY [facility] Last Admin: 12/26/24 08:13 Dose: 1 puff Gabapentin (Gabapentin 100 Mg Capsule) 100 mg PO TID [facility] Last Admin: 12/26/24 14:00 Dose: 100 mg Glipizide (Glipizide Xl 2.5 Mg Tab.Er.24) 2.5 mg PO DAILY [facility] Last Admin: 12/26/24 08:07 Dose: 2.5 mg Guaifenesin (Guaifenesin La 600 Mg Tab.Er.12h) 1,200 mg PO BID PRN PRN Reason: Cough Last Admin: 12/16/24 14:35 Dose: 1,200 mg Insulin Human Lispro (Insulin Lispro 100 Unit/Ml 3 Ml Vial) 5 unit SUBCUT QIDACHS [facility]; Protocol Last Admin: 12/26/24 11:27 Dose: 5 unit Lisinopril (Lisinopril 2.5 Mg Tablet) 2.5 mg PO DAILY [facility]; Protocol Last Admin: 12/26/24 08:07 Dose: 2.5 mg Magnesium Hydroxide (Milk Of Magnesia 30 Ml Oral.Susp) 30 ml PO DAILY PRN PRN Reason: Constipation Last Admin: 11/04/24 16:49 Dose: 30 ml Metoclopramide HCl (Metoclopramide Hcl Oral Soln 10 Mg/10 Ml Solution) 5 mg PO TIDAC [facility] Last Admin: 12/26/24 11:27 Dose: 5 mg Mirtazapine (Mirtazapine 30 Mg Tablet) 30 mg PO BEDTIME [facility] Last Admin: 12/25/24 20:27 Dose: 30 mg Naloxone HCl (Naloxone Hcl 0.4 Mg/Ml Vial) 0.04 mg IVPUSH Q5M PRN PRN Reason: Excessive sedation or RR < 8 Omeprazole (Omeprazole 20 Mg Capsule.) 20 mg PO BID@0630,1630 [facility] Last Admin: 12/26/24 06:35 Dose: 20 mg Ondansetron HCl (Ondansetron Odt 4 Mg Tab.Rapdis) 4 mg TRANSLINGU Q4H PRN PRN Reason: Nausea and Vomiting Last Admin: 12/17/24 11:23 Dose: 4 mg Polyethylene Glycol (Polyethylene Glycol 3350 17 Gm Powd.Pack) 17 gm PO BID [facility] Last Admin: 12/26/24 08:12 Dose: Not Given Pramipexole Dihydrochloride (Pramipexole Di-Hcl 0.125 Mg Tablet) 0.125 mg PO DAILY [facility] Last Admin: 12/26/24 08:07 Dose: 0.125 mg Pyridoxine HCl (Pyridoxine Hcl (Vitamin B6) 50 Mg Tablet) 50 mg PO DAILY [facility] Last Admin: 12/26/24 08:08 Dose: 50 mg Ropinirole HCl (Ropinirole Hcl 2 Mg Tablet) 2 mg PO DAILY@1700 [facility] Last Admin: 12/25/24 17:04 Dose: 2 mg Simethicone (Simethicone 80 Mg Tab.Chew) 80 mg PO QIDWMHS [facility] Last Admin: 12/26/24 11:27 Dose: 80 mg Trazodone HCl (Trazodone Hcl 50 Mg Tablet) 50 mg PO BEDTIME MRX1 PRN PRN Reason: Insomnia Last Admin: 12/22/24 21:20 Dose: 50 mg Allergies Allergies Allergy/AdvReac Type Severity Reaction Status Date / Time ampicillin Allergy Rash Verified 10/20/24 19:28 morphine Allergy Rash Verified 10/20/24 19:28 Penicillins Allergy Rash Verified 10/20/24 19:28 pork derived (porcine) Allergy Vomiting Verified 11/10/24 17:49 Assessment & Plan Assessment & Plan (1) MDD (major depressive disorder), recurrent episode, moderate: Status: Acute Code(s): F33.1 - Major depressive disorder, recurrent, moderate (2) 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 Barreto is a 78 year-old woman with hx of MDD who was assessed by N at request of her son who called 911 after pt had reported suicidal ideation with plan to OD. In the ED, pt adamantly denied suicidal ideation but reports feeling increasingly more depressed due to involuntary, ongoing movement of lower extremities. She attributes her depressed mood and increase anxious mood to RLS. She has also been treated as tardive akathisia, note that she was previously prescribed abilify. It is noted that she may have iron deficiency due to normocytic anemia which can exacerbate RLS. It is unclear which medications for hyperkinetic movements of the legs are actually helpful and furthermore it is not easily to differentiate whether it is tardive akathisia or RLS. She has been on psychotropic medications that are known to cause akathisia such as abilify. She reports subjective sense of restlessness. Involuntary movement seems to be throughout the day. We will have to do trial of medications that target akathisia such as propanolol and ativan versus medications such as pramipexol for RLS (note that in RLS there is an initial relief with dopamine agonist but can make it worse over time). In addition, will try iron deficiency as it is an underlying cause and exacerbating factor in RLS. PLAN 11/14 continue tx. will monitor before making substantial changes every day. 11/15 continue tx. pt somatically preoccupied. 11/16: Continue current management and treatment plan. 11/17: continue current management and treatment plan. 11/18 start buspar 10mg po TID for SHEILA. continue all other meds. 11/19 increase buspar 20mg po TID 11/20 appears calmer, less somatically preoccupied. continue current medications. 11/21 sodium stable. continues to present as less dysphoric, calmer. reports of dizziness (VS not hotn nor orthostatic), ?vertigo, will try low dose of meclizine otherwise will consult hospitalist for further management. 8.2- pt more focused on gi issues- and anxiety/forgetfulness- continue to monitor somatic complaints- dc qid poc 11/25 will lowered ropinirole as it may increasing anxiety, noted that buspar was lowered, do not think this medication was causing fogginess as pt appeared much calmer since we added buspar. She was started on low dose clonazepam. 11/26 continue tx. received one time dose xanax, but reported feeling overly sedated (although did not appear sedated) 11/27 somatically p8/: Continue current regimen and plansreoccupied, no change in medications. 11/29 continue tx. 11/30: Continue current regimen and plans 12/01: Continue current plans and regimen 12/02 increase buspar 20mg po TID. 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 start wellbutrin XL 150 daily tomorrow for depression. also c/o anxiety-provoking and nocturnally loud peer. schedule klonopin 0.25 QHS for insomnia. otherwise continue current mgmt. awaiting placement. 12/04: slept well last night, started wellbutrin this morning without incident. continue current mgmt. will be discharging to [facility]. 12/05: slept well. c/o anxiety at 3-330 in the afternoon. pt to ask for klonopin PRN at 2-230. trend anxiety, T/C DC of wellbutrin if anxiety seems reliably increased since starting it. dispo next week likely. 12/06: anxious. schedule klonopin 0.25 mg Qdaily at 1430 per pt request. otherwise continue current mgmt. 12/07: anxious and depressed. c/o insomnia. will give wellbutrin a few more days to see if insomnia subsides and mood improves. per staf, stable and uneventful presentation. 12/08: depressed. agreeable to increase wellbutrin to 300 mg as of tomorrow. otherwise continue current mgmt. sleeping well. 12/09: started wellbutrin 300 today. c/o URI Sx, start guaifenesin. otherwise continue current mgmt. 12/10: coughin much eves/NOC per staff. pt c/o not happy, cough, and poor sleep. continue mucinex and mental health Tx plan otherwise. 12/11/24: Patient appeared to slept for 8 hours, was medication compliant but refused the MiraLax. Denies side effects. She is observed watching TV in common area. Reported that she feel anxious and depressed. She is worry about when she is leaving as she is going to stay by herself. I am depressed . Self reports that she did not sleep well last night as roommate waking her up at night telling her that she saw dogs. She reports normal stomach pain. She would hope to see the GI doctor after discharge. She reported that she will be discharged on 12/17 but not sure the name of the facility or where it is located. Denies safety concerns, denies hallucinations. No coughing observed this morning. 12/12: c/o unremitting depression, saying she does not want to live like this. interested in ECT, educated re the procedure. obtain risk strat and EKG, discuss in rounds tomorrow morning. otherwise continue current mgmt. 12/13: continues to push for ECT. seen by hospitalist, no relative contraindications to the procedure. case d/w patient's daughter chantelle as well, who avers that pt has been in this state for a long time, it's only getting worse, and medications have not been helpful. johanna supports this trial on the wishes of her mother and MD's recommendation. ECT ordered, will get pt on the schedule as soon as possible. 12/14: Cough-productive, O2 sats are lower , CXR positive. Seen by hospitalist. Antibiotics initiated, R/O pneumonia 12/15: Pt unable to tolerate doxycycline. Hospitalist will change to Ceftin. 12/16: ECT held today due to januvia and respiratory virus. mood slightly improved. plan for weds ECT. 12/17: COVID and flu NEG. c/o nausea, exacerbation of chronic condition, h/o gastroparesis. holding januvia. start reglan for gastroparesis. continue current mgmt otherwise. NPO past MN for ECT tomorrow. 12/18: awaiting med clearance for ECT. planning for ECT monday. otherwise continue current mgmt. glucose noted to be elevated since holding januvia the past several days. 12/19 continue current medications. pt hopefull will have ECT tomorrow. NPO from midnight. 12/20 continue tx. Had ECT #1 no complications noted or reported. 12/21:Continue ECT. 12/22: Increase Klonopin PRN to BID. Otherwise continue current management and treatment plan. 12/23: continue current management and treatment plan. 12/24 continue tx. ECT tomorrow, NPO after midnight. 12/26: had ECT#2 yesterday. feeling improved, slightly. continue current mgmt. ECT #3 tomorrow. Reason for continued inpatient stay Substantial Risk for: inability to function Time Spent With Patient Time: Total time managing care of this patient today ____ minutes.
[2024-12-26 14:52] LABS: Glucose, Whole Blood 130 mg/dL (60-115)
--- NOTE | 2024-12-26 15:35 | PC.NURSE ---
Addendum entered by Smiley Hidalgo RN 12/26/24 15:41: Dr. Porter updated. Original Note: Complained of increased anxiety before supper. The patient's Klonopin is on hold due to ECT, Shilpi Krueger NP updated.
[2024-12-26] MEDS: clonazePAM ODT 0.125 MG TAB.RAPDIS 0.25 MG PO (15:55)
[2024-12-26 16:17] LABS: Glucose, Whole Blood 146 mg/dL (60-115)
--- NOTE | 2024-12-26 18:46 | PC.NURSE ---
Patient given one time dose of Klonopin 0.25mg PO at 1555 with good effect for high anxiety.
[2024-12-26 20:00] VITALS: BP 118/56; PULSE 90; RESP 16; TEMP 2.4; TEMP 36.3; O2SAT 96
[2024-12-26 20:05] LABS: Glucose, Whole Blood 200 mg/dL (60-115)
[2024-12-27] VITALS (10 sets, daily range): BP systolic 129–184; BP diastolic 63–92; PULSE 91–109; RESP 14–24; TEMP 36.4–36.9; O2SAT 95–98
[2024-12-27 06:23] LABS: Glucose, Whole Blood 229 mg/dL (60-115)
--- NOTE | 2024-12-27 06:55 | MHC.SHP ---
Pre-Procedural Eval Section A - 24 Hr Update-Section A only Date of Service: 12/27/24 The patient is an INPATIENT: Yes Changes since office visit: Yes Patient answered all questions; No Cold of Flu in the past 2 weeks, No New Medical Problems and No Changes in Medication The patient has been examined within 24 hours of the surgical procedure. The History & Physical has been completed within 30 days and I have reviewed it.: Yes Section B - Complete if H&P > 30 days Chief Complaint: SI with plan to OD on medications, increased anxie Allergies: Allergies Allergy/AdvReac Type Severity Reaction Status Date / Time ampicillin Allergy Rash Verified 10/20/24 19:28 morphine Allergy Rash Verified 10/20/24 19:28 Penicillins Allergy Rash Verified 10/20/24 19:28 pork derived (porcine) Allergy Vomiting Verified 11/10/24 17:49 Plan Diagnosis/Plan: Unchanged I have reviewed the history and physical and performed a pertinent physical examination on my patient. No changes have occurred unless specified. Time Spent With Patient Time: Total time managing care of this patient today __30__ minutes.
--- NOTE | 2024-12-27 06:56 | P.CONAN_ITS ---
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 (Acute) Hyponatremia (Acute) Fall (Acute) Constipation (Acute) Forehead laceration (Acute) Diabetes (Acute) RLS (restless legs syndrome) (Acute) MDD (major depressive disorder), recurrent episode, moderate (Acute) Gastroparesis (Acute) Anxiety (Acute) Past Medical History Medical History Tension headache Peripheral neuropathy Akathisia Cerebral microvascular disease RLS (restless legs syndrome) Migraines Diabetes Hypertension Anxiety Functional capacity: independent ambulation Family History Family history of problems with anesthesia: No Surgical History History of Problems with Anesthesia: No Social History Social History Household Members: None Housing: House Do you presently have visiting nurse or other home services: Yes Patient Tobacco Use Status: Never used Tobacco Currently Displaying Signs/Symptoms of Drug Intoxication Withdrawal: No Have you been hit, kicked, punched, or otherwise hurt by someone within the past year? If so, by whom?: No Do you feel safe in your current relationship?: No Current Relationship Is there a partner from a previous relationship who is making you feel unsafe now?: No Are you made to feel afraid or neglected: No Spiritual Healthcare Practices: meditation and breathing Advance Directives: No Advance Directives Information Provided: No Do you have thoughts of harming others: None Do you have a plan to hurt others: No Plan Recently lost weight without trying: No Eating poorly because of decreased appetite: No Nutrition Risks: No Nutritional Risk Patient : No : No Poor oral hygiene: No service: No Sexual orientation: Straight/Heterosexual Meds Allergies Allergy/AdvReac Type Severity Reaction Status Date / Time ampicillin Allergy Rash Verified 10/20/24 19:28 morphine Allergy Rash Verified 10/20/24 19:28 Penicillins Allergy Rash Verified 10/20/24 19:28 pork derived (porcine) Allergy Vomiting Verified 11/10/24 17:49 Active Medications: Current Medications Acetaminophen (Acetaminophen 325 Mg Tablet) 650 mg PO Q6H PRN PRN Reason: Headache/Pain, Scale 1-10 Last Admin: 12/26/24 08:08 Dose: 650 mg Al Hydroxide/Mg Hydroxide (Magnesium Hydrox/Alum Hydrox 30 Ml Oral.Susp) 30 ml PO Q6H PRN PRN Reason: Heartburn/Nausea Last Admin: 12/17/24 06:56 Dose: 30 ml Albuterol Sulfate (Albuterol Sulfate (0.083%) 2.5 Mg/3 Ml Vial.Neb) 2.5 mg INHALE ONCE PRN PRN Reason: Shortness of Breath/Wheezing Last Admin: 12/16/24 07:11 Dose: 2.5 mg Albuterol Sulfate (Albuterol Sulfate 90 Mcg 8 Gm Inhaler) 4 puff INHALE Q4H PRN PRN Reason: Shortness Of Breath Or Wheezin Amlodipine Besylate (Amlodipine Besylate 2.5 Mg Tablet) 2.5 mg PO DAILY [facility]; Protocol Last Admin: 12/26/24 08:07 Dose: 2.5 mg Atorvastatin Calcium (Atorvastatin Calcium 20 Mg Tablet) 20 mg PO DAILY [facility] Last Admin: 12/26/24 08:07 Dose: 20 mg Bisacodyl (Bisacodyl 10 Mg Supp.Rect) 10 mg PA BEDTIME PRN PRN Reason: Constipation Last Admin: 11/04/24 20:37 Dose: 10 mg Bupropion HCl (Bupropion Hcl Xl 300 Mg Tab.Er.24h) 300 mg PO DAILY [facility] Last Admin: 12/26/24 08:07 Dose: 300 mg Buspirone HCl (Buspirone Hcl 10 Mg Tablet) 20 mg PO TID [facility] Last Admin: 12/26/24 20:38 Dose: 20 mg Calcium Carbonate (Calcium Carbonate 750 Mg Tab.Chew) 750 mg PO Q4H PRN PRN Reason: Heartburn Last Admin: 11/30/24 21:34 Dose: 750 mg Clonazepam (Clonazepam Odt 0.125 Mg Tab.Rapdis) 0.25 mg PO BID PRN On Hold: 12/26/24 14:29 PRN Reason: severe anxiety Last Admin: 12/24/24 11:55 Dose: 0.25 mg Dicyclomine HCl (Dicyclomine Hcl 10 Mg Capsule) 10 mg PO Q4H PRN PRN Reason: abdominal cramping Last Admin: 12/17/24 13:55 Dose: 10 mg Docusate Sodium (Docusate Sodium 100 Mg Capsule) 100 mg PO BID [facility] Last Admin: 12/26/24 20:39 Dose: 100 mg Duloxetine HCl (Duloxetine Hcl 60 Mg Capsule.) 60 mg PO DAILY [facility] Last Admin: 12/26/24 08:08 Dose: 60 mg Fluticasone/Vilanterol (Fluticasone/Vilanterol 100/25 Blst.W.Dev) 1 puff INHALE RDAILY [facility] Last Admin: 12/26/24 08:13 Dose: 1 puff Gabapentin (Gabapentin 100 Mg Capsule) 100 mg PO TID [facility] Last Admin: 12/26/24 20:38 Dose: 100 mg Glipizide (Glipizide Xl 2.5 Mg Tab.Er.24) 2.5 mg PO DAILY [facility] Last Admin: 12/26/24 08:07 Dose: 2.5 mg Guaifenesin (Guaifenesin La 600 Mg Tab.Er.12h) 1,200 mg PO BID PRN PRN Reason: Cough Last Admin: 12/16/24 14:35 Dose: 1,200 mg Insulin Human Lispro (Insulin Lispro 100 Unit/Ml 3 Ml Vial) 5 unit SUBCUT QIDACHS [facility]; Protocol Last Admin: 12/26/24 20:38 Dose: 5 unit Lisinopril (Lisinopril 2.5 Mg Tablet) 2.5 mg PO DAILY [facility]; Protocol Last Admin: 12/26/24 08:07 Dose: 2.5 mg Magnesium Hydroxide (Milk Of Magnesia 30 Ml Oral.Susp) 30 ml PO DAILY PRN PRN Reason: Constipation Last Admin: 11/04/24 16:49 Dose: 30 ml Metoclopramide HCl (Metoclopramide Hcl Oral Soln 10 Mg/10 Ml Solution) 5 mg PO TIDAC [facility] Last Admin: 12/26/24 15:54 Dose: 5 mg Mirtazapine (Mirtazapine 30 Mg Tablet) 30 mg PO BEDTIME [facility] Last Admin: 12/26/24 20:40 Dose: 30 mg Naloxone HCl (Naloxone Hcl 0.4 Mg/Ml Vial) 0.04 mg IVPUSH Q5M PRN PRN Reason: Excessive sedation or RR < 8 Omeprazole (Omeprazole 20 Mg Capsule.) 20 mg PO BID@0630,1630 [facility] Last Admin: 12/26/24 15:56 Dose: 20 mg Ondansetron HCl (Ondansetron Odt 4 Mg Tab.Rapdis) 4 mg TRANSLINGU Q4H PRN PRN Reason: Nausea and Vomiting Last Admin: 12/17/24 11:23 Dose: 4 mg Polyethylene Glycol (Polyethylene Glycol 3350 17 Gm Powd.Pack) 17 gm PO BID [facility] Last Admin: 12/26/24 20:31 Dose: Not Given Pramipexole Dihydrochloride (Pramipexole Di-Hcl 0.125 Mg Tablet) 0.125 mg PO DAILY [facility] Last Admin: 12/26/24 08:07 Dose: 0.125 mg Pyridoxine HCl (Pyridoxine Hcl (Vitamin B6) 50 Mg Tablet) 50 mg PO DAILY [facility] Last Admin: 12/26/24 08:08 Dose: 50 mg Ropinirole HCl (Ropinirole Hcl 2 Mg Tablet) 2 mg PO DAILY@1700 [facility] Last Admin: 12/26/24 16:21 Dose: 2 mg Simethicone (Simethicone 80 Mg Tab.Chew) 80 mg PO QIDWMHS [facility] Last Admin: 12/26/24 20:38 Dose: 80 mg Trazodone HCl (Trazodone Hcl 50 Mg Tablet) 50 mg PO BEDTIME MRX1 PRN PRN Reason: Insomnia Last Admin: 12/22/24 21:20 Dose: 50 mg Home Medications ?Medication ?Instructions ?Recorded ?Confirmed ?Last Taken ?Type atorvastatin 20 mg tablet 20 mg PO DAILY 04/01/2309/2403/31/23 21:00 History ondansetron HCl 4 mg tablet 4 mg PO Q8H PRN nausea 01/1410/21/24 03/31/23 21:00 History pantoprazole 40 mg tablet,delayed 40 mg PO BID@0630,16 30 04/01/23 10/21/24 03/31/23 21:00 History release sitagliptin phosphate 100 mg 100 mg PO DAILY 04/01/23 10/21/24 03/31/23 21:00 History tablet (Januvia) albuterol sulfate 90 mcg/actuation 2 puff inhalation Q 4-6H PRN 10/21/24 10/21/24 Unknown History aerosol inhaler Shortness Of Breath Or Wheez ing amlodipine 2.5 mg tablet 2.5 mg PO DAILY 10/21/24 Unknown History duloxetine 20 mg capsule,delayed 40 mg PO DAILY 10/21/24 Unknown History release fluticasone furoate 100 1 ea inhalation DAILY 10/21/24 Unknown History mcg-vilanterol 25 mcg/dose inhalation powder (Breo Ellipta) gabapentin 100 mg capsule 100 mg PO TID 10/21/2410/21 Unknown History gabapentin 600 mg tablet 600 mg PO BEDTIME 10/21/24 0 10/21/24 Unknown History glipizide 2.5 mg tablet, extended 2.5 mg PO DAILY 09/2410/21/24 Unknown History release 24 hr lamotrigine 100 mg tablet 100 mg PO DAILY 10/21/24 Unknown History lisinopril 20 mg tablet 20 mg PO DAILY 10/21/2409/24 Unknown History lorazepam 0.5 mg tablet 0.25 mg PO BID 10/21/2409/24 Unknown History mirtazapine 45 mg tablet 45 mg PO BEDTIME 10/21/24 Unknown History olanzapine 2.5 mg tablet 2.5 mg PO BEDTIME 10/21/24 0 10/21/24 Unknown History pramipexole 0.25 mg tablet 0.25 mg PO BID 10/21/24 Unknown History propranolol 20 mg tablet 20 mg PO DAILY 10/21/2409/24 Unknown History Exam Height,Weight and Vital Signs: Height 4 ft 10 in Weight 50.519 kg Last Vital Signs Temp 98.4 F 12/27/24 06:35 Pulse 92 12/27/24 06:35 Resp 20 12/27/24 06:35 BP 146/75 H 12/27/24 06:35 Pulse Ox 97 12/27/24 06:35 O2 Del Method Room Air 12/27/24 06:35 O2 Flow Rate 3 12/25/24 09:09 Pertinent Lab Results Pertinent Lab Results: Laboratory Tests 10/20/24 10/20/24 10/22/24 19:59 21:45 07:23 WBC 7.6 RBC 3.65 L Hgb 10.8 L Hct 31.3 L MCV 85.8 MCH 29.6 MCHC 34.5 RDW 13.6 Plt Count 213 MPV 8.7 L Immature Gran % (Auto) 0.3 Neut % (Auto) 58.4 Lymph % (Auto) 29.8 [place] % (Auto) 9.9 Eos % (Auto) 1.1 Baso % (Auto) 0.5 Lymph # (Auto) 2.3 [place] # (Auto) 0.8 Eos # (Auto) 0.1 Baso # (Auto) 0.0 Abs Immat Gran (auto) 0.02 Absolute Neuts (auto) 4.4 Absolute Nucleated RBC 0.000 Nucleated RBC % (auto) 0.0 Smear Tech's Comments Hold Purple Top VBG pH VBG pCO2 VBG pO2 VBG HCO3 VBG O2 Saturation VBG Base Excess Sodium 140 142 Potassium 4.2 4.6 Chloride 108 108 Carbon Dioxide 23 23 Anion Gap 13 16 BUN 33 H 22 H Creatinine 1.15 1.09 Estim Creat Clear Calc 26.9 30.7 Estimated GFR 46 49 POC Glucose Random Glucose 96 204 H Estimat Average Glucose 160 Hemoglobin A1c % 7.2 H Osmolality Lactic Acid Calcium 9.3 9.6 Magnesium Iron TIBC % Saturation Unsat Iron Binding Total Bilirubin 0.5 AST 21 ALT 25 Alkaline Phosphatase 67 Total Protein 7.4 Albumin 4.9 Triglycerides 102 Cholesterol 148 LDL Cholesterol, Calc 68 HDL Cholesterol 60 Lipase TSH 2.14 Free T4 1.15 Urine Color Yellow Urine Appearance Clear Urine pH 7.0 Ur Specific Bernard 1.010 Urine Protein Negative Urine Glucose (UA) Negative Urine Ketones Negative Urine Blood Negative Urine Nitrite Negative Ur Leukocyte Esterase Large (3+) H Urine RBC 0-2 Urine WBC 21-50 H Ur Squamous Epith Cells 0-2 Urine Bacteria Trace Hyaline Casts 0-2 Urine Osmolality Ur Random Sodium Urine Opiates Screen POSITIVE H Ur Buprenorphine Scrn Not Detected Ur Oxycodone Screen Not Detected Urine Methadone Screen Not Detected Urine Fentanyl Screen Not Detected Ur Barbiturates Screen Not Detected Carbamazepine Ur Phencyclidine Scrn Not Detected Ur Amphetamines Screen Not Detected U Benzodiazepines Scrn Not Detected Urine Cocaine Screen Not Detected U Marijuana (THC) Screen Not Detected COVID-19 (TRESA) COVID-19 Clin Com Influenza Type A (AMANDA) Influenza Type B (AMANDA) Influenza A & B Note TB Test (T-Spot) Com TB Test Nil Control TB Test Panel A TB Test Panel B TB Test Positive Cntrl 07/02/25 07/02/25 07/02/25 15:19 15:20 16:31 WBC 6.4 RBC 4.03 L Hgb 11.8 L Hct 34.7 L MCV 86.1 MCH 29.3 MCHC 34.0 RDW 13.6 Plt Count 221 MPV 9.8 Immature Gran % (Auto) 0.3 Neut % (Auto) 64.6 Lymph % (Auto) 23.0 [place] % (Auto) 10.4 Eos % (Auto) 1.2 Baso % (Auto) 0.5 Lymph # (Auto) 1.5 [place] # (Auto) 0.7 Eos # (Auto) 0.1 Baso # (Auto) 0.0 Abs Immat Gran (auto) 0.02 Absolute Neuts (auto) 4.2 Absolute Nucleated RBC 0.000 Nucleated RBC % (auto) 0.0 Smear Tech's Comments VERIFIED Hold Purple Top VBG pH VBG pCO2 VBG pO2 VBG HCO3 VBG O2 Saturation VBG Base Excess Sodium 137 Potassium 4.5 Chloride 104 Carbon Dioxide 24 Anion Gap 14 BUN 26 H Creatinine 1.02 Estim Creat Clear Calc 32.8 Estimated GFR 53 POC Glucose 132 H Random Glucose 158 H Estimat Average Glucose Hemoglobin A1c % Osmolality Lactic Acid Calcium 9.3 Magnesium Iron TIBC % Saturation Unsat Iron Binding Total Bilirubin AST ALT Alkaline Phosphatase Total Protein Albumin Triglycerides Cholesterol LDL Cholesterol, Calc HDL Cholesterol Lipase TSH Free T4 Urine Color Urine Appearance Urine pH Ur Specific Bernard Urine Protein Urine Glucose (UA) Urine Ketones Urine Blood Urine Nitrite Ur Leukocyte Esterase Urine RBC Urine WBC Ur Squamous Epith Cells Urine Bacteria Hyaline Casts Urine Osmolality Ur Random Sodium Urine Opiates Screen Ur Buprenorphine Scrn Ur Oxycodone Screen Urine Methadone Screen Urine Fentanyl Screen Ur Barbiturates Screen Carbamazepine Ur Phencyclidine Scrn Ur Amphetamines Screen U Benzodiazepines Scrn Urine Cocaine Screen U Marijuana (THC) Screen COVID-19 (TRESA) COVID-19 Clin Com Influenza Type A (AMANDA) Influenza Type B (AMANDA) Influenza A & B Note TB Test (T-Spot) Com TB Test Nil Control TB Test Panel A TB Test Panel B TB Test Positive Cntrl 10/24/24 10/24/24 10/24/24 06:51 11:08 12:19 WBC RBC Hgb Hct MCV MCH MCHC RDW Plt Count MPV Immature Gran % (Auto) Neut % (Auto) Lymph % (Auto) [place] % (Auto) Eos % (Auto) Baso % (Auto) Lymph # (Auto) [place] # (Auto) Eos # (Auto) Baso # (Auto) Abs Immat Gran (auto) Absolute Neuts (auto) Absolute Nucleated RBC Nucleated RBC % (auto) Smear Tech's Comments Hold Purple Top VBG pH VBG pCO2 VBG pO2 VBG HCO3 VBG O2 Saturation VBG Base Excess Sodium Potassium Chloride Carbon Dioxide Anion Gap BUN Creatinine Estim Creat Clear Calc Estimated GFR POC Glucose 204 H 95 Random Glucose Estimat Average Glucose Hemoglobin A1c % Osmolality Lactic Acid Calcium Magnesium Iron 65 TIBC 216 L % Saturation 30 Unsat Iron Binding 151 Total Bilirubin AST ALT Alkaline Phosphatase Total Protein Albumin Triglycerides Cholesterol LDL Cholesterol, Calc HDL Cholesterol Lipase TSH Free T4 Urine Color Urine Appearance Urine pH Ur Specific Bernard Urine Protein Urine Glucose (UA) Urine Ketones Urine Blood Urine Nitrite Ur Leukocyte Esterase Urine RBC Urine WBC Ur Squamous Epith Cells Urine Bacteria Hyaline Casts Urine Osmolality Ur Random Sodium Urine Opiates Screen Ur Buprenorphine Scrn Ur Oxycodone Screen Urine Methadone Screen Urine Fentanyl Screen Ur Barbiturates Screen Carbamazepine Ur Phencyclidine Scrn Ur Amphetamines Screen U Benzodiazepines Scrn Urine Cocaine Screen U Marijuana (THC) Screen COVID-19 (TRESA) COVID-19 Clin Com Influenza Type A (AMANDA) Influenza Type B (AMANDA) Influenza A & B Note TB Test (T-Spot) Com TB Test Nil Control TB Test Panel A TB Test Panel B TB Test Positive [facility] 10/24/24 10/25/24 10/25/24 16:06 05:55 11:15 WBC RBC Hgb Hct MCV MCH MCHC RDW Plt Count MPV Immature Gran % (Auto) Neut % (Auto) Lymph % (Auto) [place] % (Auto) Eos % (Auto) Baso % (Auto) Lymph # (Auto) [place] # (Auto) Eos # (Auto) Baso # (Auto) Abs Immat Gran (auto) Absolute Neuts (auto) Absolute Nucleated RBC Nucleated RBC % (auto) Smear Tech's Comments Hold Purple Top VBG pH VBG pCO2 VBG pO2 VBG HCO3 VBG O2 Saturation VBG Base Excess Sodium Potassium Chloride Carbon Dioxide Anion Gap BUN Creatinine Estim Creat Clear Calc Estimated GFR POC Glucose 142 H 190 H 177 H Random Glucose Estimat Average Glucose Hemoglobin A1c % Osmolality Lactic Acid Calcium Magnesium Iron TIBC % Saturation Unsat Iron Binding Total Bilirubin AST ALT Alkaline Phosphatase Total Protein Albumin Triglycerides Cholesterol LDL Cholesterol, Calc HDL Cholesterol Lipase TSH Free T4 Urine Color Urine Appearance Urine pH Ur Specific Bernard Urine Protein Urine Glucose (UA) Urine Ketones Urine Blood Urine Nitrite Ur Leukocyte Esterase Urine RBC Urine WBC Ur Squamous Epith Cells Urine Bacteria Hyaline Casts Urine Osmolality Ur Random Sodium Urine Opiates Screen Ur Buprenorphine Scrn Ur Oxycodone Screen Urine Methadone Screen Urine Fentanyl Screen Ur Barbiturates Screen Carbamazepine Ur Phencyclidine Scrn Ur Amphetamines Screen U Benzodiazepines Scrn Urine Cocaine Screen U Marijuana (THC) Screen COVID-19 ([facility]ESA) COVID-19 Clin Com Influenza Type A (AMANDA) Influenza Type B (AMANDA) Influenza A & B Note TB Test (T-Spot) Com TB Test Nil Control TB Test Panel A TB Test Panel B TB Test Positive Cntrl 10/25/24 10/26/24 10/26/24 16:33 07:05 10:57 WBC RBC Hgb Hct MCV MCH MCHC RDW Plt Count MPV Immature Gran % (Auto) Neut % (Auto) Lymph % (Auto) [place] % (Auto) Eos % (Auto) Baso % (Auto) Lymph # (Auto) [place] # (Auto) Eos # (Auto) Baso # (Auto) Abs Immat Gran (auto) Absolute Neuts (auto) Absolute Nucleated RBC Nucleated RBC % (auto) Smear Tech's Comments Hold Purple Top VBG pH VBG pCO2 VBG pO2 VBG HCO3 VBG O2 Saturation VBG Base Excess Sodium Potassium Chloride Carbon Dioxide Anion Gap BUN Creatinine Estim Creat Clear Calc Estimated GFR POC Glucose 170 H 185 H 189 H Random Glucose Estimat Average Glucose Hemoglobin A1c % Osmolality Lactic Acid Calcium Magnesium Iron TIBC % Saturation Unsat Iron Binding Total Bilirubin AST ALT Alkaline Phosphatase Total Protein Albumin Triglycerides Cholesterol LDL Cholesterol, Calc HDL Cholesterol Lipase TSH Free T4 Urine Color Urine Appearance Urine pH Ur Specific [place] Urine Protein Urine Glucose (UA) Urine Ketones Urine Blood Urine Nitrite Ur Leukocyte Esterase Urine RBC Urine WBC Ur Squamous Epith Cells Urine Bacteria Hyaline Casts Urine Osmolality Ur Random Sodium Urine Opiates Screen Ur Buprenorphine Scrn Ur Oxycodone Screen Urine Methadone Screen Urine Fentanyl Screen Ur Barbiturates Screen Carbamazepine Ur Phencyclidine Scrn Ur Amphetamines Screen U Benzodiazepines Scrn Urine Cocaine Screen U Marijuana (THC) Screen COVID-19 ([facility]ESA) COVID-19 Clin Com Influenza Type A (AMANDA) Influenza Type B (AMANDA) Influenza A & B Note TB Test (T-Spot) Com TB Test Nil Control TB Test Panel A TB Test Panel B TB Test Positive [facility] 10/26/24 10/27/24 10/27/24 16:19 06:45 11:24 WBC RBC Hgb Hct MCV MCH MCHC RDW Plt Count MPV Immature Gran % (Auto) Neut % (Auto) Lymph % (Auto) [place] % (Auto) Eos % (Auto) Baso % (Auto) Lymph # (Auto) [place] # (Auto) Eos # (Auto) Baso # (Auto) Abs Immat Gran (auto) Absolute Neuts (auto) Absolute Nucleated RBC Nucleated RBC % (auto) Smear Tech's Comments Hold Purple Top VBG pH VBG pCO2 VBG pO2 VBG HCO3 VBG O2 Saturation VBG Base Excess Sodium Potassium Chloride Carbon Dioxide Anion Gap BUN Creatinine Estim Creat Clear Calc Estimated GFR POC Glucose 170 H 215 H 117 H Random Glucose Estimat Average Glucose Hemoglobin A1c % Osmolality Lactic Acid Calcium Magnesium Iron TIBC % Saturation Unsat Iron Binding Total Bilirubin AST ALT Alkaline Phosphatase Total Protein Albumin Triglycerides Cholesterol LDL Cholesterol, Calc HDL Cholesterol Lipase TSH Free T4 Urine Color Urine Appearance Urine pH Ur Specific [place] Urine Protein Urine Glucose (UA) Urine Ketones Urine Blood Urine Nitrite Ur Leukocyte Esterase Urine RBC Urine WBC Ur Squamous Epith Cells Urine Bacteria Hyaline Casts Urine Osmolality Ur Random Sodium Urine Opiates Screen Ur Buprenorphine Scrn Ur Oxycodone Screen Urine Methadone Screen Urine Fentanyl Screen Ur Barbiturates Screen Carbamazepine Ur Phencyclidine Scrn Ur Amphetamines Screen U Benzodiazepines Scrn Urine Cocaine Screen U Marijuana (THC) Screen COVID-19 ([facility]) COVID-19 Clin Com Influenza Type A (AMANDA) Influenza Type B (AMANDA) Influenza A & B Note TB Test (T-Spot) Com TB Test Nil Control TB Test Panel A TB Test Panel B TB Test Positive [facility] 10/27/24 10/28/24 10/28/24 16:14 06:32 10:50 WBC RBC Hgb Hct MCV MCH MCHC RDW Plt Count MPV Immature Gran % (Auto) Neut % (Auto) Lymph % (Auto) [place] % (Auto) Eos % (Auto) Baso % (Auto) Lymph # (Auto) [place] # (Auto) Eos # (Auto) Baso # (Auto) Abs Immat Gran (auto) Absolute Neuts (auto) Absolute Nucleated RBC Nucleated RBC % (auto) Smear Tech's Comments Hold Purple Top VBG pH VBG pCO2 VBG pO2 VBG HCO3 VBG O2 Saturation VBG Base Excess Sodium Potassium Chloride Carbon Dioxide Anion Gap BUN Creatinine Estim Creat Clear Calc Estimated GFR POC Glucose 156 H 195 H 288 H Random Glucose Estimat Average Glucose Hemoglobin A1c % Osmolality Lactic Acid Calcium Magnesium Iron TIBC % Saturation Unsat Iron Binding Total Bilirubin AST ALT Alkaline Phosphatase Total Protein Albumin Triglycerides Cholesterol LDL Cholesterol, Calc HDL Cholesterol Lipase TSH Free T4 Urine Color Urine Appearance Urine pH Ur Specific Bernard Urine Protein Urine Glucose (UA) Urine Ketones Urine Blood Urine Nitrite Ur Leukocyte Esterase Urine RBC Urine WBC Ur Squamous Epith Cells Urine Bacteria Hyaline Casts Urine Osmolality Ur Random Sodium Urine Opiates Screen Ur Buprenorphine Scrn Ur Oxycodone Screen Urine Methadone Screen Urine Fentanyl Screen Ur Barbiturates Screen Carbamazepine Ur Phencyclidine Scrn Ur Amphetamines Screen U Benzodiazepines Scrn Urine Cocaine Screen U Marijuana (THC) Screen COVID-19 (TRESA) COVID-19 Clin Com Influenza Type A (AMANDA) Influenza Type B (AMANDA) Influenza A & B Note TB Test (T-Spot) Com TB Test Nil Control TB Test Panel A TB Test Panel B TB Test Positive [facility] 10/28/24 10/28/24 10/29/24 15:54 20:28 06:47 WBC RBC Hgb Hct MCV MCH MCHC RDW Plt Count MPV Immature Gran % (Auto) Neut % (Auto) Lymph % (Auto) [place] % (Auto) Eos % (Auto) Baso % (Auto) Lymph # (Auto) [place] # (Auto) Eos # (Auto) Baso # (Auto) Abs Immat Gran (auto) Absolute Neuts (auto) Absolute Nucleated RBC Nucleated RBC % (auto) Smear Tech's Comments Hold Purple Top VBG pH VBG pCO2 VBG pO2 VBG HCO3 VBG O2 Saturation VBG Base Excess Sodium Potassium Chloride Carbon Dioxide Anion Gap BUN Creatinine Estim Creat Clear Calc Estimated GFR POC Glucose 132 H 210 H 188 H Random Glucose Estimat Average Glucose Hemoglobin A1c % Osmolality Lactic Acid Calcium Magnesium Iron TIBC % Saturation Unsat Iron Binding Total Bilirubin AST ALT Alkaline Phosphatase Total Protein Albumin Triglycerides Cholesterol LDL Cholesterol, Calc HDL Cholesterol Lipase TSH Free T4 Urine Color Urine Appearance Urine pH Ur Specific Bernard Urine Protein Urine Glucose (UA) Urine Ketones Urine Blood Urine Nitrite Ur Leukocyte Esterase Urine RBC Urine WBC Ur Squamous Epith Cells Urine Bacteria Hyaline Casts Urine Osmolality Ur Random Sodium Urine Opiates Screen Ur Buprenorphine Scrn Ur Oxycodone Screen Urine Methadone Screen Urine Fentanyl Screen Ur Barbiturates Screen Carbamazepine Ur Phencyclidine Scrn Ur Amphetamines Screen U Benzodiazepines Scrn Urine Cocaine Screen U Marijuana (THC) Screen COVID-19 (TRESA) COVID-19 Clin Com Influenza Type A (AMANDA) Influenza Type B (AMANDA) Influenza A & B Note TB Test (T-Spot) Com TB Test Nil Control TB Test Panel A TB Test Panel B TB Test Positive Cntrl 10/29/24 10/29/24 10/29/24 11:16 15:42 16:24 WBC 11.0 H RBC 3.49 L Hgb 10.4 L Hct 29.9 L MCV 85.7 MCH 29.8 MCHC 34.8 RDW 13.7 Plt Count 271 MPV 8.8 L Immature Gran % (Auto) 0.5 H Neut % (Auto) 71.9 Lymph % (Auto) 14.5 L [place] % (Auto) 11.9 H Eos % (Auto) 0.7 Baso % (Auto) 0.5 Lymph # (Auto) 1.6 [place] # (Auto) 1.3 H Eos # (Auto) 0.1 Baso # (Auto) 0.1 Abs Immat Gran (auto) 0.05 H Absolute Neuts (auto) 7.9 Absolute Nucleated RBC 0.000 Nucleated RBC % (auto) 0.0 Smear Tech's Comments Hold Purple Top VBG pH VBG pCO2 VBG pO2 VBG HCO3 VBG O2 Saturation VBG Base Excess Sodium 133 L Potassium 4.7 Chloride 102 Carbon Dioxide 24 Anion Gap 12 BUN 39 H Creatinine 1.24 Estim Creat Clear Calc 27.3 Estimated GFR 42 POC Glucose 265 H 156 H Random Glucose 180 H Estimat Average Glucose Hemoglobin A1c % Osmolality Lactic Acid Calcium 8.9 Magnesium Iron TIBC % Saturation Unsat Iron Binding Total Bilirubin 0.4 AST 15 ALT 21 Alkaline Phosphatase 67 Total Protein 6.4 L Albumin 4.1 Triglycerides Cholesterol LDL Cholesterol, Calc HDL Cholesterol Lipase TSH Free T4 Urine Color Urine Appearance Urine pH Ur Specific Bernard Urine Protein Urine Glucose (UA) Urine Ketones Urine Blood Urine Nitrite Ur Leukocyte Esterase Urine RBC Urine WBC Ur Squamous Epith Cells Urine Bacteria Hyaline Casts Urine Osmolality Ur Random Sodium Urine Opiates Screen Ur Buprenorphine Scrn Ur Oxycodone Screen Urine Methadone Screen Urine Fentanyl Screen Ur Barbiturates Screen Carbamazepine Ur Phencyclidine Scrn Ur Amphetamines Screen U Benzodiazepines Scrn Urine Cocaine Screen U Marijuana (THC) Screen COVID-19 (TRESA) COVID-19 Clin Com Influenza Type A (AMANDA) Influenza Type B (AMANDA) Influenza A & B Note TB Test (T-Spot) Com TB Test Nil Control TB Test Panel A TB Test Panel B [facility] Test [facility] [facility] 10/30/24 10/30/24 10/30/24 06:46 11:13 16:09 WBC RBC Hgb Hct MCV MCH MCHC RDW Plt Count MPV Immature Gran % (Auto) Neut % (Auto) Lymph % (Auto) [place] % (Auto) Eos % (Auto) Baso % (Auto) Lymph # (Auto) [place] # (Auto) Eos # (Auto) Baso # (Auto) Abs Immat Gran (auto) Absolute Neuts (auto) Absolute Nucleated RBC Nucleated RBC % (auto) Smear Tech's Comments Hold Purple Top VBG pH VBG pCO2 VBG pO2 VBG HCO3 VBG O2 Saturation VBG Base Excess Sodium Potassium Chloride Carbon Dioxide Anion Gap BUN Creatinine Estim Creat Clear Calc Estimated GFR POC Glucose 195 H 194 H 143 H Random Glucose Estimat Average Glucose Hemoglobin A1c % Osmolality Lactic Acid Calcium Magnesium Iron TIBC % Saturation Unsat Iron Binding Total Bilirubin AST ALT Alkaline Phosphatase Total Protein Albumin Triglycerides Cholesterol LDL Cholesterol, Calc HDL Cholesterol Lipase TSH Free T4 Urine Color Urine Appearance Urine pH Ur Specific Bernard Urine Protein Urine Glucose (UA) Urine Ketones Urine Blood Urine Nitrite Ur Leukocyte Esterase Urine RBC Urine WBC Ur Squamous Epith Cells Urine Bacteria Hyaline Casts Urine Osmolality Ur Random Sodium Urine Opiates Screen Ur Buprenorphine Scrn Ur Oxycodone Screen Urine Methadone Screen Urine Fentanyl Screen Ur Barbiturates Screen Carbamazepine Ur Phencyclidine Scrn Ur Amphetamines Screen U Benzodiazepines Scrn Urine Cocaine Screen U Marijuana (THC) Screen COVID-19 ([facility]) COVID-19 Clin Com Influenza Type A (AMANDA) Influenza Type B (AMANDA) Influenza A & B Note TB Test (T-Spot) Com TB Test Nil Control TB Test Panel A TB Test Panel B TB Test Positive [facility] 10/30/24 10/30/24 10/31/24 17:25 19:55 06:33 WBC 11.2 H RBC 3.63 L Hgb 10.7 L Hct 31.4 L MCV 86.5 MCH 29.5 MCHC 34.1 RDW 13.5 Plt Count 288 MPV 8.9 L Immature Gran % (Auto) 0.5 H Neut % (Auto) 74.7 H Lymph % (Auto) 13.2 L [place] % (Auto) 10.5 Eos % (Auto) 0.7 Baso % (Auto) 0.4 Lymph # (Auto) 1.5 [place] # (Auto) 1.2 Eos # (Auto) 0.1 Baso # (Auto) 0.0 Abs Immat Gran (auto) 0.06 H Absolute Neuts (auto) 8.4 H Absolute Nucleated RBC 0.000 Nucleated RBC % (auto) 0.0 Smear Tech's Comments Hold Purple Top VBG pH VBG pCO2 VBG pO2 VBG HCO3 VBG O2 Saturation VBG Base Excess Sodium 136 Potassium 5.1 Chloride 101 Carbon Dioxide 26 Anion Gap 14 BUN 34 H Creatinine 1.17 Estim Creat Clear Calc 28.9 Estimated GFR 45 POC Glucose 244 H 173 H Random Glucose 225 H Estimat Average Glucose Hemoglobin A1c % Osmolality Lactic Acid Calcium 9.2 Magnesium Iron TIBC % Saturation Unsat Iron Binding Total Bilirubin 0.5 AST 15 ALT 23 Alkaline Phosphatase 64 Total Protein 6.8 Albumin 4.3 Triglycerides Cholesterol LDL Cholesterol, Calc HDL Cholesterol Lipase TSH Free T4 Urine Color Urine Appearance Urine pH Ur Specific Bernard Urine Protein Urine Glucose (UA) Urine Ketones Urine Blood Urine Nitrite Ur Leukocyte Esterase Urine RBC Urine WBC Ur Squamous Epith Cells Urine Bacteria Hyaline Casts Urine Osmolality Ur Random Sodium Urine Opiates Screen Ur Buprenorphine Scrn Ur Oxycodone Screen Urine Methadone Screen Urine Fentanyl Screen Ur Barbiturates Screen Carbamazepine Ur Phencyclidine Scrn Ur Amphetamines Screen U Benzodiazepines Scrn Urine Cocaine Screen U Marijuana (THC) Screen COVID-19 ([facility]) COVID-19 Clin Com Influenza Type A (AMANDA) Influenza Type B (AMANDA) Influenza A & B Note TB Test (T-Spot) Com TB Test Nil Control TB Test Panel A TB Test Panel B TB Test Positive Cntrl 10/31/24 10/31/24 11/01/24 11:26 16:31 06:33 WBC RBC Hgb Hct MCV MCH MCHC RDW Plt Count MPV Immature Gran % (Auto) Neut % (Auto) Lymph % (Auto) [place] % (Auto) Eos % (Auto) Baso % (Auto) Lymph # (Auto) [place] # (Auto) Eos # (Auto) Baso # (Auto) Abs Immat Gran (auto) Absolute Neuts (auto) Absolute Nucleated RBC Nucleated RBC % (auto) Smear Tech's Comments Hold Purple Top VBG pH VBG pCO2 VBG pO2 VBG HCO3 VBG O2 Saturation VBG Base Excess Sodium Potassium Chloride Carbon Dioxide Anion Gap BUN Creatinine Estim Creat Clear Calc Estimated GFR POC Glucose 178 H 169 H 199 H Random Glucose Estimat Average Glucose Hemoglobin A1c % Osmolality Lactic Acid Calcium Magnesium Iron TIBC % Saturation Unsat Iron Binding Total Bilirubin AST ALT Alkaline Phosphatase Total Protein Albumin Triglycerides Cholesterol LDL Cholesterol, Calc HDL Cholesterol Lipase TSH Free T4 Urine Color Urine Appearance Urine pH Ur Specific Bernard Urine Protein Urine Glucose (UA) Urine Ketones Urine Blood Urine Nitrite Ur Leukocyte Esterase Urine RBC Urine WBC Ur Squamous Epith Cells Urine Bacteria Hyaline Casts Urine Osmolality Ur Random Sodium Urine Opiates Screen Ur Buprenorphine Scrn Ur Oxycodone Screen Urine Methadone Screen Urine Fentanyl Screen Ur Barbiturates Screen Carbamazepine Ur Phencyclidine Scrn Ur Amphetamines Screen U Benzodiazepines Scrn Urine Cocaine Screen U Marijuana (THC) Screen COVID-19 ([facility]) COVID-19 Clin Com Influenza Type A (AMANDA) Influenza Type B (AMANDA) Influenza A & B Note TB Test (T-Spot) Com TB Test Nil Control TB Test Panel A TB Test Panel B TB Test Positive Cntrl 11/01/24 11/01/24 11/01/24 11:05 16:24 19:41 WBC RBC Hgb Hct MCV MCH MCHC RDW Plt Count MPV Immature Gran % (Auto) Neut % (Auto) Lymph % (Auto) [place] % (Auto) Eos % (Auto) Baso % (Auto) Lymph # (Auto) [place] # (Auto) Eos # (Auto) Baso # (Auto) Abs Immat Gran (auto) Absolute Neuts (auto) Absolute Nucleated RBC Nucleated RBC % (auto) Smear Tech's Comments Hold Purple Top VBG pH VBG pCO2 VBG pO2 VBG HCO3 VBG O2 Saturation VBG Base Excess Sodium Potassium Chloride Carbon Dioxide Anion Gap BUN Creatinine Estim Creat Clear Calc Estimated GFR POC Glucose 257 H 124 H 209 H Random Glucose Estimat Average Glucose Hemoglobin A1c % Osmolality Lactic Acid Calcium Magnesium Iron TIBC % Saturation Unsat Iron Binding Total Bilirubin AST ALT Alkaline Phosphatase Total Protein Albumin Triglycerides Cholesterol LDL Cholesterol, Calc HDL Cholesterol Lipase TSH Free T4 Urine Color Urine Appearance Urine pH Ur Specific Bernard Urine Protein Urine Glucose (UA) Urine Ketones Urine Blood Urine Nitrite Ur Leukocyte Esterase Urine RBC Urine WBC Ur Squamous Epith Cells Urine Bacteria Hyaline Casts Urine Osmolality Ur Random Sodium Urine Opiates Screen Ur Buprenorphine Scrn Ur Oxycodone Screen Urine Methadone Screen Urine Fentanyl Screen Ur Barbiturates Screen Carbamazepine Ur Phencyclidine Scrn Ur Amphetamines Screen U Benzodiazepines Scrn Urine Cocaine Screen U Marijuana (THC) Screen COVID-19 ([facility]) COVID-19 Clin Com Influenza Type A (AMANDA) Influenza Type B (AMANDA) Influenza A & B Note TB Test (T-Spot) Com TB Test Nil Control TB Test Panel A TB Test Panel B TB Test Positive [facility] 11/02/24 11/02/24 11/02/24 06:34 11:26 11:28 WBC RBC Hgb Hct MCV MCH MCHC RDW Plt Count MPV Immature Gran % (Auto) Neut % (Auto) Lymph % (Auto) [place] % (Auto) Eos % (Auto) Baso % (Auto) Lymph # (Auto) [place] # (Auto) Eos # (Auto) Baso # (Auto) Abs Immat Gran (auto) Absolute Neuts (auto) Absolute Nucleated RBC Nucleated RBC % (auto) Smear Tech's Comments Hold Purple Top VBG pH VBG pCO2 VBG pO2 VBG HCO3 VBG O2 Saturation VBG Base Excess Sodium Potassium Chloride Carbon Dioxide Anion Gap BUN Creatinine Estim Creat Clear Calc Estimated GFR POC Glucose 185 H 445 H* 469 H* Random Glucose Estimat Average Glucose Hemoglobin A1c % Osmolality Lactic Acid Calcium Magnesium Iron TIBC % Saturation Unsat Iron Binding Total Bilirubin AST ALT Alkaline Phosphatase Total Protein Albumin Triglycerides Cholesterol LDL Cholesterol, Calc HDL Cholesterol Lipase TSH Free T4 Urine Color Urine Appearance Urine pH Ur Specific Bernard Urine Protein Urine Glucose (UA) Urine Ketones Urine Blood Urine Nitrite Ur Leukocyte Esterase Urine RBC Urine WBC Ur Squamous Epith Cells Urine Bacteria Hyaline Casts Urine Osmolality Ur Random Sodium Urine Opiates Screen Ur Buprenorphine Scrn Ur Oxycodone Screen Urine Methadone Screen Urine Fentanyl Screen Ur Barbiturates Screen Carbamazepine Ur Phencyclidine Scrn Ur Amphetamines Screen U Benzodiazepines Scrn Urine Cocaine Screen U Marijuana (THC) Screen COVID-19 ([facility]) COVID-19 Clin Com Influenza Type A (AMANDA) Influenza Type B (AMANDA) Influenza A & B Note TB Test (T-Spot) Com TB Test Nil Control TB Test Panel A TB Test Panel B TB Test Positive [facility] 07/12/25 07/12/25 07/12/25 13:18 16:31 19:46 WBC RBC Hgb Hct MCV MCH MCHC RDW Plt Count MPV Immature Gran % (Auto) Neut % (Auto) Lymph % (Auto) [place] % (Auto) Eos % (Auto) Baso % (Auto) Lymph # (Auto) [place] # (Auto) Eos # (Auto) Baso # (Auto) Abs Immat Gran (auto) Absolute Neuts (auto) Absolute Nucleated RBC Nucleated RBC % (auto) Smear Tech's Comments Hold Purple Top VBG pH VBG pCO2 VBG pO2 VBG HCO3 VBG O2 Saturation VBG Base Excess Sodium Potassium Chloride Carbon Dioxide Anion Gap BUN Creatinine Estim Creat Clear Calc Estimated GFR POC Glucose 379 H* 206 H 153 H Random Glucose Estimat Average Glucose Hemoglobin A1c % Osmolality Lactic Acid Calcium Magnesium Iron TIBC % Saturation Unsat Iron Binding Total Bilirubin AST ALT Alkaline Phosphatase Total Protein Albumin Triglycerides Cholesterol LDL Cholesterol, Calc HDL Cholesterol Lipase TSH Free T4 Urine Color Urine Appearance Urine pH Ur Specific Bernard Urine Protein Urine Glucose (UA) Urine Ketones Urine Blood Urine Nitrite Ur Leukocyte Esterase Urine RBC Urine WBC Ur Squamous Epith Cells Urine Bacteria Hyaline Casts Urine Osmolality Ur Random Sodium Urine Opiates Screen Ur Buprenorphine Scrn Ur Oxycodone Screen Urine Methadone Screen Urine Fentanyl Screen Ur Barbiturates Screen Carbamazepine Ur Phencyclidine Scrn Ur Amphetamines Screen U Benzodiazepines Scrn Urine Cocaine Screen U Marijuana (THC) Screen COVID-19 ([facility]) COVID-19 Clin Com Influenza Type A (AMANDA) Influenza Type B (AMANDA) Influenza A & B Note TB Test (T-Spot) Com TB Test Nil Control TB Test Panel A TB Test Panel B [facility] 11/02/24 11/02/24 11/02/24 20:13 20:14 20:18 WBC 6.8 RBC 3.44 L Hgb 10.4 L Hct 29.1 L MCV 84.6 MCH 30.2 MCHC 35.7 H RDW 13.2 Plt Count 286 MPV 8.6 L Immature Gran % (Auto) 0.4 Neut % (Auto) 59.4 Lymph % (Auto) 27.6 [place] % (Auto) 11.3 H Eos % (Auto) 1.0 Baso % (Auto) 0.3 Lymph # (Auto) 1.9 [place] # (Auto) 0.8 Eos # (Auto) 0.1 Baso # (Auto) 0.0 Abs Immat Gran (auto) 0.03 Absolute Neuts (auto) 4.1 Absolute Nucleated RBC 0.000 Nucleated RBC % (auto) 0.0 Smear Tech's Comments Hold Purple Top VBG pH 7.44 H VBG pCO2 37 VBG pO2 48 VBG HCO3 26 VBG O2 Saturation 76.0 VBG Base Excess 2.3 Sodium 133 L Potassium 4.7 Chloride 100 Carbon Dioxide 26 Anion Gap 12 BUN 33 H Creatinine 1.86 H Estim Creat Clear Calc 18.0 Estimated GFR 26 POC Glucose Random Glucose 135 H Estimat Average Glucose Hemoglobin A1c % Osmolality Lactic Acid 1.2 Calcium 9.3 Magnesium 2.2 Iron TIBC % Saturation Unsat Iron Binding Total Bilirubin 0.4 AST 16 ALT 25 Alkaline Phosphatase 79 Total Protein 7.1 Albumin 4.4 Triglycerides Cholesterol LDL Cholesterol, Calc HDL Cholesterol Lipase 37 TSH Free T4 Urine Color Urine Appearance Urine pH Ur Specific Bernard Urine Protein Urine Glucose (UA) Urine Ketones Urine Blood Urine Nitrite Ur Leukocyte Esterase Urine RBC Urine WBC Ur Squamous Epith Cells Urine Bacteria Hyaline Casts Urine Osmolality Ur Random Sodium Urine Opiates Screen Ur Buprenorphine Scrn Ur Oxycodone Screen Urine Methadone Screen Urine Fentanyl Screen Ur Barbiturates Screen Carbamazepine Ur Phencyclidine Scrn Ur Amphetamines Screen U Benzodiazepines Scrn Urine Cocaine Screen U Marijuana (THC) Screen COVID-19 ([facility]) COVID-19 Clin Com Influenza Type A (AMANDA) Influenza Type B (AMANDA) Influenza A & B Note TB Test (T-Spot) Com TB Test Nil Control TB Test Panel A TB Test Panel B TB Test Positive Cntr 11/02/24 11/02/24 11/03/24 20:20 21:38 06:38 WBC RBC Hgb Hct MCV MCH MCHC RDW Plt Count MPV Immature Gran % (Auto) Neut % (Auto) Lymph % (Auto) [place] % (Auto) Eos % (Auto) Baso % (Auto) Lymph # (Auto) [place] # (Auto) Eos # (Auto) Baso # (Auto) Abs Immat Gran (auto) Absolute Neuts (auto) Absolute Nucleated RBC Nucleated RBC % (auto) Smear Tech's Comments Hold Purple Top VBG pH VBG pCO2 VBG pO2 VBG HCO3 VBG O2 Saturation VBG Base Excess Sodium Potassium Chloride Carbon Dioxide Anion Gap BUN Creatinine Estim Creat Clear Calc Estimated GFR POC Glucose 123 H 164 H Random Glucose Estimat Average Glucose Hemoglobin A1c % Osmolality Lactic Acid Calcium Magnesium Iron TIBC % Saturation Unsat Iron Binding Total Bilirubin AST ALT Alkaline Phosphatase Total Protein Albumin Triglycerides Cholesterol LDL Cholesterol, Calc HDL Cholesterol Lipase TSH Free T4 Urine Color Yellow Urine Appearance Clear Urine pH 6.5 Ur Specific Bernard 1.015 Urine Protein Negative Urine Glucose (UA) Negative Urine Ketones Negative Urine Blood Negative Urine Nitrite Negative Ur Leukocyte Esterase Large (3+) H Urine RBC 0-2 Urine WBC 11-20 H Ur Squamous Epith Cells 0-2 Urine Bacteria None Seen Hyaline Casts 0-2 Urine Osmolality Ur Random Sodium Urine Opiates Screen Ur Buprenorphine Scrn Ur Oxycodone Screen Urine Methadone Screen Urine Fentanyl Screen Ur Barbiturates Screen Carbamazepine Ur Phencyclidine Scrn Ur Amphetamines Screen U Benzodiazepines Scrn Urine Cocaine Screen U Marijuana (THC) Screen COVID-19 ([facility]) COVID-19 Clin Com Influenza Type A (AMANDA) Influenza Type B (AMANDA) Influenza A & B Note TB Test (T-Spot) Com TB Test Nil Control TB Test Panel A TB Test Panel B TB Test Positive [facility] 11/03/24 11/03/24 11/04/24 11:23 16:03 06:47 WBC RBC Hgb Hct MCV MCH MCHC RDW Plt Count MPV Immature Gran % (Auto) Neut % (Auto) Lymph % (Auto) [place] % (Auto) Eos % (Auto) Baso % (Auto) Lymph # (Auto) [place] # (Auto) Eos # (Auto) Baso # (Auto) Abs Immat Gran (auto) Absolute Neuts (auto) Absolute Nucleated RBC Nucleated RBC % (auto) Smear Tech's Comments Hold Purple Top VBG pH VBG pCO2 VBG pO2 VBG HCO3 VBG O2 Saturation VBG Base Excess Sodium Potassium Chloride Carbon Dioxide Anion Gap BUN Creatinine Estim Creat Clear Calc Estimated GFR POC Glucose 238 H 185 H 148 H Random Glucose Estimat Average Glucose Hemoglobin A1c % Osmolality Lactic Acid Calcium Magnesium Iron TIBC % Saturation Unsat Iron Binding Total Bilirubin AST ALT Alkaline Phosphatase Total Protein Albumin Triglycerides Cholesterol LDL Cholesterol, Calc HDL Cholesterol Lipase TSH Free T4 Urine Color Urine Appearance Urine pH Ur Specific Bernard Urine Protein Urine Glucose (UA) Urine Ketones Urine Blood Urine Nitrite Ur Leukocyte Esterase Urine RBC Urine WBC Ur Squamous Epith Cells Urine Bacteria Hyaline Casts Urine Osmolality Ur Random Sodium Urine Opiates Screen Ur Buprenorphine Scrn Ur Oxycodone Screen Urine Methadone Screen Urine Fentanyl Screen Ur Barbiturates Screen Carbamazepine Ur Phencyclidine Scrn Ur Amphetamines Screen U Benzodiazepines Scrn Urine Cocaine Screen U Marijuana (THC) Screen COVID-19 ([facility]) COVID-19 Clin Com Influenza Type A (AMANDA) Influenza Type B (AMANDA) Influenza A & B Note TB Test (T-Spot) Com TB Test Nil Control TB Test Panel A TB Test Panel B TB Test Positive [facility] 11/04/24 11/04/24 11/04/24 09:52 11:20 16:30 WBC RBC Hgb Hct MCV MCH MCHC RDW Plt Count MPV Immature Gran % (Auto) Neut % (Auto) Lymph % (Auto) [place] % (Auto) Eos % (Auto) Baso % (Auto) Lymph # (Auto) [place] # (Auto) Eos # (Auto) Baso # (Auto) Abs Immat Gran (auto) Absolute Neuts (auto) Absolute Nucleated RBC Nucleated RBC % (auto) Smear Tech's Comments Hold Purple Top VBG pH VBG pCO2 VBG pO2 VBG HCO3 VBG O2 Saturation VBG Base Excess Sodium 134 L Potassium 5.5 H Chloride 102 Carbon Dioxide 22 Anion Gap 16 BUN 35 H Creatinine 1.15 Estim Creat Clear Calc 29.2 Estimated GFR 46 POC Glucose 178 H 139 H Random Glucose 232 H Estimat Average Glucose Hemoglobin A1c % Osmolality Lactic Acid Calcium 9.1 Magnesium Iron TIBC % Saturation Unsat Iron Binding Total Bilirubin 0.3 AST 25 ALT 25 Alkaline Phosphatase 67 Total Protein 6.9 Albumin 4.2 Triglycerides Cholesterol LDL Cholesterol, Calc HDL Cholesterol Lipase TSH Free T4 Urine Color Urine Appearance Urine pH Ur Specific Bernard Urine Protein Urine Glucose (UA) Urine Ketones Urine Blood Urine Nitrite Ur Leukocyte Esterase Urine RBC Urine WBC Ur Squamous Epith Cells Urine Bacteria Hyaline Casts Urine Osmolality Ur Random Sodium Urine Opiates Screen Ur Buprenorphine Scrn Ur Oxycodone Screen Urine Methadone Screen Urine Fentanyl Screen Ur Barbiturates Screen Carbamazepine Ur Phencyclidine Scrn Ur Amphetamines Screen U Benzodiazepines Scrn Urine Cocaine Screen U Marijuana (THC) Screen COVID-19 ([facility]) COVID-19 Clin Com Influenza Type A (AMANDA) Influenza Type B (AMANDA) Influenza A & B Note TB Test (T-Spot) Com TB Test Nil Control TB Test Panel A TB Test Panel B TB Test Positive [facility] 11/04/24 11/04/24 11/05/24 16:53 21:12 06:28 WBC RBC Hgb Hct MCV MCH MCHC RDW Plt Count MPV Immature Gran % (Auto) Neut % (Auto) Lymph % (Auto) [place] % (Auto) Eos % (Auto) Baso % (Auto) Lymph # (Auto) [place] # (Auto) Eos # (Auto) Baso # (Auto) Abs Immat Gran (auto) Absolute Neuts (auto) Absolute Nucleated RBC Nucleated RBC % (auto) Smear Tech's Comments Hold Purple Top VBG pH VBG pCO2 VBG pO2 VBG HCO3 VBG O2 Saturation VBG Base Excess Sodium Potassium Chloride Carbon Dioxide Anion Gap BUN Creatinine Estim Creat Clear Calc Estimated GFR POC Glucose 192 H 199 H 155 H Random Glucose Estimat Average Glucose Hemoglobin A1c % Osmolality Lactic Acid Calcium Magnesium Iron TIBC % Saturation Unsat Iron Binding Total Bilirubin AST ALT Alkaline Phosphatase Total Protein Albumin Triglycerides Cholesterol LDL Cholesterol, Calc HDL Cholesterol Lipase TSH Free T4 Urine Color Urine Appearance Urine pH Ur Specific Bernard Urine Protein Urine Glucose (UA) Urine Ketones Urine Blood Urine Nitrite Ur Leukocyte Esterase Urine RBC Urine WBC Ur Squamous Epith Cells Urine Bacteria Hyaline Casts Urine Osmolality Ur Random Sodium Urine Opiates Screen Ur Buprenorphine Scrn Ur Oxycodone Screen Urine Methadone Screen Urine Fentanyl Screen Ur Barbiturates Screen Carbamazepine Ur Phencyclidine Scrn Ur Amphetamines Screen U Benzodiazepines Scrn Urine Cocaine Screen U Marijuana (THC) Screen COVID-19 ([facility]) COVID-19 Clin Com Influenza Type A (AMANDA) Influenza Type B (AMANDA) Influenza A & B Note TB Test (T-Spot) Com TB Test Nil Control TB Test Panel A TB Test Panel B TB Test Positive Cntr 11/05/24 11/05/24 11/05/24 11:14 16:10 20:54 WBC RBC Hgb Hct MCV MCH MCHC RDW Plt Count MPV Immature Gran % (Auto) Neut % (Auto) Lymph % (Auto) [place] % (Auto) Eos % (Auto) Baso % (Auto) Lymph # (Auto) [place] # (Auto) Eos # (Auto) Baso # (Auto) Abs Immat Gran (auto) Absolute Neuts (auto) Absolute Nucleated RBC Nucleated RBC % (auto) Smear Tech's Comments Hold Purple Top VBG pH VBG pCO2 VBG pO2 VBG HCO3 VBG O2 Saturation VBG Base Excess Sodium Potassium Chloride Carbon Dioxide Anion Gap BUN Creatinine Estim Creat Clear Calc Estimated GFR POC Glucose 145 H 145 H 205 H Random Glucose Estimat Average Glucose Hemoglobin A1c % Osmolality Lactic Acid Calcium Magnesium Iron TIBC % Saturation Unsat Iron Binding Total Bilirubin AST ALT Alkaline Phosphatase Total Protein Albumin Triglycerides Cholesterol LDL Cholesterol, Calc HDL Cholesterol Lipase TSH Free T4 Urine Color Urine Appearance Urine pH Ur Specific Bernard Urine Protein Urine Glucose (UA) Urine Ketones Urine Blood Urine Nitrite Ur Leukocyte Esterase Urine RBC Urine WBC Ur Squamous Epith Cells Urine Bacteria Hyaline Casts Urine Osmolality Ur Random Sodium Urine Opiates Screen Ur Buprenorphine Scrn Ur Oxycodone Screen Urine Methadone Screen Urine Fentanyl Screen Ur Barbiturates Screen Carbamazepine Ur Phencyclidine Scrn Ur Amphetamines Screen U Benzodiazepines Scrn Urine Cocaine Screen U Marijuana (THC) Screen COVID-19 ([facility]) COVID-19 Clin Com Influenza Type A (AMANDA) Influenza Type B (AMANDA) Influenza A & B Note TB Test (T-Spot) Com TB Test Nil Control TB Test Panel A TB Test Panel B TB Test Positive Cntrl 11/06/24 11/06/24 11/06/24 06:29 11:28 16:19 WBC RBC Hgb Hct MCV MCH MCHC RDW Plt Count MPV Immature Gran % (Auto) Neut % (Auto) Lymph % (Auto) [place] % (Auto) Eos % (Auto) Baso % (Auto) Lymph # (Auto) [place] # (Auto) Eos # (Auto) Baso # (Auto) Abs Immat Gran (auto) Absolute Neuts (auto) Absolute Nucleated RBC Nucleated RBC % (auto) Smear Tech's Comments Hold Purple Top VBG pH VBG pCO2 VBG pO2 VBG HCO3 VBG O2 Saturation VBG Base Excess Sodium Potassium Chloride Carbon Dioxide Anion Gap BUN Creatinine Estim Creat Clear Calc Estimated GFR POC Glucose 186 H 166 H 168 H Random Glucose Estimat Average Glucose Hemoglobin A1c % Osmolality Lactic Acid Calcium Magnesium Iron TIBC % Saturation Unsat Iron Binding Total Bilirubin AST ALT Alkaline Phosphatase Total Protein Albumin Triglycerides Cholesterol LDL Cholesterol, Calc HDL Cholesterol Lipase TSH Free T4 Urine Color Urine Appearance Urine pH Ur Specific Bernard Urine Protein Urine Glucose (UA) Urine Ketones Urine Blood Urine Nitrite Ur Leukocyte Esterase Urine RBC Urine WBC Ur Squamous Epith Cells Urine Bacteria Hyaline Casts Urine Osmolality Ur Random Sodium Urine Opiates Screen Ur Buprenorphine Scrn Ur Oxycodone Screen Urine Methadone Screen Urine Fentanyl Screen Ur Barbiturates Screen Carbamazepine Ur Phencyclidine Scrn Ur Amphetamines Screen U Benzodiazepines Scrn Urine Cocaine Screen U Marijuana (THC) Screen COVID-19 ([facility]ES[facility]) COVID-19 Clin Com Influenza Type A (AMANDA) Influenza Type B (AMANDA) Influenza A & B Note TB Test (T-Spot) Com TB Test Nil Control TB Test Panel A TB Test Panel B TB Test Positive Cntr 11/06/24 11/07/24 11/07/24 21:20 06:20 10:45 WBC RBC Hgb Hct MCV MCH MCHC RDW Plt Count MPV Immature Gran % (Auto) Neut % (Auto) Lymph % (Auto) [place] % (Auto) Eos % (Auto) Baso % (Auto) Lymph # (Auto) [place] # (Auto) Eos # (Auto) Baso # (Auto) Abs Immat Gran (auto) Absolute Neuts (auto) Absolute Nucleated RBC Nucleated RBC % (auto) Smear Tech's Comments Hold Purple Top VBG pH VBG pCO2 VBG pO2 VBG HCO3 VBG O2 Saturation VBG Base Excess Sodium Potassium Chloride Carbon Dioxide Anion Gap BUN Creatinine Estim Creat Clear Calc Estimated GFR POC Glucose 82 125 H 159 H Random Glucose Estimat Average Glucose Hemoglobin A1c % Osmolality Lactic Acid Calcium Magnesium Iron TIBC % Saturation Unsat Iron Binding Total Bilirubin AST ALT Alkaline Phosphatase Total Protein Albumin Triglycerides Cholesterol LDL Cholesterol, Calc HDL Cholesterol Lipase TSH Free T4 Urine Color Urine Appearance Urine pH Ur Specific Bernard Urine Protein Urine Glucose (UA) Urine Ketones Urine Blood Urine Nitrite Ur Leukocyte Esterase Urine RBC Urine WBC Ur Squamous Epith Cells Urine Bacteria Hyaline Casts Urine Osmolality Ur Random Sodium Urine Opiates Screen Ur Buprenorphine Scrn Ur Oxycodone Screen Urine Methadone Screen Urine Fentanyl Screen Ur Barbiturates Screen Carbamazepine Ur Phencyclidine Scrn Ur Amphetamines Screen U Benzodiazepines Scrn Urine Cocaine Screen U Marijuana (THC) Screen COVID-19 ([facility]ESA) COVID-19 Clin Com Influenza Type A (AMANDA) Influenza Type B (AMANDA) Influenza A & B Note TB Test (T-Spot) Com TB Test Nil Control TB Test Panel A TB Test Panel B TB Test Positive [facility] 11/07/24 11/07/24 11/08/24 16:17 20:21 06:25 WBC RBC Hgb Hct MCV MCH MCHC RDW Plt Count MPV Immature Gran % (Auto) Neut % (Auto) Lymph % (Auto) [place] % (Auto) Eos % (Auto) Baso % (Auto) Lymph # (Auto) [place] # (Auto) Eos # (Auto) Baso # (Auto) Abs Immat Gran (auto) Absolute Neuts (auto) Absolute Nucleated RBC Nucleated RBC % (auto) Smear Tech's Comments Hold Purple Top VBG pH VBG pCO2 VBG pO2 VBG HCO3 VBG O2 Saturation VBG Base Excess Sodium Potassium Chloride Carbon Dioxide Anion Gap BUN Creatinine Estim Creat Clear Calc Estimated GFR POC Glucose 115 142 H 147 H Random Glucose Estimat Average Glucose Hemoglobin A1c % Osmolality Lactic Acid Calcium Magnesium Iron TIBC % Saturation Unsat Iron Binding Total Bilirubin AST ALT Alkaline Phosphatase Total Protein Albumin Triglycerides Cholesterol LDL Cholesterol, Calc HDL Cholesterol Lipase TSH Free T4 Urine Color Urine Appearance Urine pH Ur Specific Bernard Urine Protein Urine Glucose (UA) Urine Ketones Urine Blood Urine Nitrite Ur Leukocyte Esterase Urine RBC Urine WBC Ur Squamous Epith Cells Urine Bacteria Hyaline Casts Urine Osmolality Ur Random Sodium Urine Opiates Screen Ur Buprenorphine Scrn Ur Oxycodone Screen Urine Methadone Screen Urine Fentanyl Screen Ur Barbiturates Screen Carbamazepine Ur Phencyclidine Scrn Ur Amphetamines Screen U Benzodiazepines Scrn Urine Cocaine Screen U Marijuana (THC) Screen COVID-19 ([facility]ES[facility]) COVID-19 Clin Com Influenza Type A (AMANDA) Influenza Type B (AMANDA) Influenza A & B Note TB Test (T-Spot) Com TB Test Nil Control TB Test Panel A TB Test Panel B TB Test Positive Cntrl 11/08/24 11/08/24 11/08/24 11:07 16:51 21:23 WBC RBC Hgb Hct MCV MCH MCHC RDW Plt Count MPV Immature Gran % (Auto) Neut % (Auto) Lymph % (Auto) [place] % (Auto) Eos % (Auto) Baso % (Auto) Lymph # (Auto) [place] # (Auto) Eos # (Auto) Baso # (Auto) Abs Immat Gran (auto) Absolute Neuts (auto) Absolute Nucleated RBC Nucleated RBC % (auto) Smear Tech's Comments Hold Purple Top VBG pH VBG pCO2 VBG pO2 VBG HCO3 VBG O2 Saturation VBG Base Excess Sodium Potassium Chloride Carbon Dioxide Anion Gap BUN Creatinine Estim Creat Clear Calc Estimated GFR POC Glucose 245 H 115 255 H Random Glucose Estimat Average Glucose Hemoglobin A1c % Osmolality Lactic Acid Calcium Magnesium Iron TIBC % Saturation Unsat Iron Binding Total Bilirubin AST ALT Alkaline Phosphatase Total Protein Albumin Triglycerides Cholesterol LDL Cholesterol, Calc HDL Cholesterol Lipase TSH Free T4 Urine Color Urine Appearance Urine pH Ur Specific Bernard Urine Protein Urine Glucose (UA) Urine Ketones Urine Blood Urine Nitrite Ur Leukocyte Esterase Urine RBC Urine WBC Ur Squamous Epith Cells Urine Bacteria Hyaline Casts Urine Osmolality Ur Random Sodium Urine Opiates Screen Ur Buprenorphine Scrn Ur Oxycodone Screen Urine Methadone Screen Urine Fentanyl Screen Ur Barbiturates Screen Carbamazepine Ur Phencyclidine Scrn Ur Amphetamines Screen U Benzodiazepines Scrn Urine Cocaine Screen U Marijuana (THC) Screen COVID-19 ([facility]ESA) COVID-19 Clin Com Influenza Type A (AMANDA) Influenza Type B (AMANDA) Influenza A & B Note TB Test (T-Spot) Com TB Test Nil Control TB Test Panel A TB Test Panel B TB Test Positive [facility] 11/09/24 11/09/24 11/09/24 06:39 11:02 16:04 WBC RBC Hgb Hct MCV MCH MCHC RDW Plt Count MPV Immature Gran % (Auto) Neut % (Auto) Lymph % (Auto) [place] % (Auto) Eos % (Auto) Baso % (Auto) Lymph # (Auto) [place] # (Auto) Eos # (Auto) Baso # (Auto) Abs Immat Gran (auto) Absolute Neuts (auto) Absolute Nucleated RBC Nucleated RBC % (auto) Smear Tech's Comments Hold Purple Top VBG pH VBG pCO2 VBG pO2 VBG HCO3 VBG O2 Saturation VBG Base Excess Sodium Potassium Chloride Carbon Dioxide Anion Gap BUN Creatinine Estim Creat Clear Calc Estimated GFR POC Glucose 137 H 302 H 77 Random Glucose Estimat Average Glucose Hemoglobin A1c % Osmolality Lactic Acid Calcium Magnesium Iron TIBC % Saturation Unsat Iron Binding Total Bilirubin AST ALT Alkaline Phosphatase Total Protein Albumin Triglycerides Cholesterol LDL Cholesterol, Calc HDL Cholesterol Lipase TSH Free T4 Urine Color Urine Appearance Urine pH Ur Specific Bernard Urine Protein Urine Glucose (UA) Urine Ketones Urine Blood Urine Nitrite Ur Leukocyte Esterase Urine RBC Urine WBC Ur Squamous Epith Cells Urine Bacteria Hyaline Casts Urine Osmolality Ur Random Sodium Urine Opiates Screen Ur Buprenorphine Scrn Ur Oxycodone Screen Urine Methadone Screen Urine Fentanyl Screen Ur Barbiturates Screen Carbamazepine Ur Phencyclidine Scrn Ur Amphetamines Screen U Benzodiazepines Scrn Urine Cocaine Screen U Marijuana (THC) Screen COVID-19 ([facility]ES[facility]) COVID-19 Clin Com Influenza Type A (AMANDA) Influenza Type B (AMANDA) Influenza A & B Note TB Test (T-Spot) Com TB Test Nil Control TB Test Panel A TB Test Panel B TB Test Positive [facility] 11/09/24 11/10/24 11/10/24 20:29 06:37 11:29 WBC RBC Hgb Hct MCV MCH MCHC RDW Plt Count MPV Immature Gran % (Auto) Neut % (Auto) Lymph % (Auto) [place] % (Auto) Eos % (Auto) Baso % (Auto) Lymph # (Auto) [place] # (Auto) Eos # (Auto) Baso # (Auto) Abs Immat Gran (auto) Absolute Neuts (auto) Absolute Nucleated RBC Nucleated RBC % (auto) Smear Tech's Comments Hold Purple Top VBG pH VBG pCO2 VBG pO2 VBG HCO3 VBG O2 Saturation VBG Base Excess Sodium Potassium Chloride Carbon Dioxide Anion Gap BUN Creatinine Estim Creat Clear Calc Estimated GFR POC Glucose 242 H 187 H 230 H Random Glucose Estimat Average Glucose Hemoglobin A1c % Osmolality Lactic Acid Calcium Magnesium Iron TIBC % Saturation Unsat Iron Binding Total Bilirubin AST ALT Alkaline Phosphatase Total Protein Albumin Triglycerides Cholesterol LDL Cholesterol, Calc HDL Cholesterol Lipase TSH Free T4 Urine Color Urine Appearance Urine pH Ur Specific Bernard Urine Protein Urine Glucose (UA) Urine Ketones Urine Blood Urine Nitrite Ur Leukocyte Esterase Urine RBC Urine WBC Ur Squamous Epith Cells Urine Bacteria Hyaline Casts Urine Osmolality Ur Random Sodium Urine Opiates Screen Ur Buprenorphine Scrn Ur Oxycodone Screen Urine Methadone Screen Urine Fentanyl Screen Ur Barbiturates Screen Carbamazepine Ur Phencyclidine Scrn Ur Amphetamines Screen U Benzodiazepines Scrn Urine Cocaine Screen U Marijuana (THC) Screen COVID-19 ([facility]ESA) COVID-19 Clin Com Influenza Type A (AMANDA) Influenza Type B (AMANDA) Influenza A & B Note TB Test (T-Spot) Com TB Test Nil Control TB Test Panel A TB Test Panel B TB Test Positive Cnt 11/10/24 11/10/24 11/11/24 16:24 20:05 06:32 WBC RBC Hgb Hct MCV MCH MCHC RDW Plt Count MPV Immature Gran % (Auto) Neut % (Auto) Lymph % (Auto) [place] % (Auto) Eos % (Auto) Baso % (Auto) Lymph # (Auto) [place] # (Auto) Eos # (Auto) Baso # (Auto) Abs Immat Gran (auto) Absolute Neuts (auto) Absolute Nucleated RBC Nucleated RBC % (auto) Smear Tech's Comments Hold Purple Top VBG pH VBG pCO2 VBG pO2 VBG HCO3 VBG O2 Saturation VBG Base Excess Sodium Potassium Chloride Carbon Dioxide Anion Gap BUN Creatinine Estim Creat Clear Calc Estimated GFR POC Glucose 105 126 H 159 H Random Glucose Estimat Average Glucose Hemoglobin A1c % Osmolality Lactic Acid Calcium Magnesium Iron TIBC % Saturation Unsat Iron Binding Total Bilirubin AST ALT Alkaline Phosphatase Total Protein Albumin Triglycerides Cholesterol LDL Cholesterol, Calc HDL Cholesterol Lipase TSH Free T4 Urine Color Urine Appearance Urine pH Ur Specific Bernard Urine Protein Urine Glucose (UA) Urine Ketones Urine Blood Urine Nitrite Ur Leukocyte Esterase Urine RBC Urine WBC Ur Squamous Epith Cells Urine Bacteria Hyaline Casts Urine Osmolality Ur Random Sodium Urine Opiates Screen Ur Buprenorphine Scrn Ur Oxycodone Screen Urine Methadone Screen Urine Fentanyl Screen Ur Barbiturates Screen Carbamazepine Ur Phencyclidine Scrn Ur Amphetamines Screen U Benzodiazepines Scrn Urine Cocaine Screen U Marijuana (THC) Screen COVID-19 ([facility]ESA) COVID-19 Clin Com Influenza Type A (AMANDA) Influenza Type B (AMANDA) Influenza A & B Note TB Test (T-Spot) Com TB Test Nil Control TB Test Panel A TB Test Panel B TB Test Positive Cntrl 11/11/24 11/11/24 11/11/24 11:17 16:17 20:14 WBC RBC Hgb Hct MCV MCH MCHC RDW Plt Count MPV Immature Gran % (Auto) Neut % (Auto) Lymph % (Auto) [place] % (Auto) Eos % (Auto) Baso % (Auto) Lymph # (Auto) [place] # (Auto) Eos # (Auto) Baso # (Auto) Abs Immat Gran (auto) Absolute Neuts (auto) Absolute Nucleated RBC Nucleated RBC % (auto) Smear Tech's Comments Hold Purple Top VBG pH VBG pCO2 VBG pO2 VBG HCO3 VBG O2 Saturation VBG Base Excess Sodium Potassium Chloride Carbon Dioxide Anion Gap BUN Creatinine Estim Creat Clear Calc Estimated GFR POC Glucose 140 H 130 H 194 H Random Glucose Estimat Average Glucose Hemoglobin A1c % Osmolality Lactic Acid Calcium Magnesium Iron TIBC % Saturation Unsat Iron Binding Total Bilirubin AST ALT Alkaline Phosphatase Total Protein Albumin Triglycerides Cholesterol LDL Cholesterol, Calc HDL Cholesterol Lipase TSH Free T4 Urine Color Urine Appearance Urine pH Ur Specific Bernard Urine Protein Urine Glucose (UA) Urine Ketones Urine Blood Urine Nitrite Ur Leukocyte Esterase Urine RBC Urine WBC Ur Squamous Epith Cells Urine Bacteria Hyaline Casts Urine Osmolality Ur Random Sodium Urine Opiates Screen Ur Buprenorphine Scrn Ur Oxycodone Screen Urine Methadone Screen Urine Fentanyl Screen Ur Barbiturates Screen Carbamazepine Ur Phencyclidine Scrn Ur Amphetamines Screen U Benzodiazepines Scrn Urine Cocaine Screen U Marijuana (THC) Screen COVID-19 ([facility]ESA) COVID-19 Clin Com Influenza Type A (AMANDA) Influenza Type B (AMANDA) Influenza A & B Note TB Test (T-Spot) Com TB Test Nil Control TB Test Panel A TB Test Panel B TB Test Positive [facility] 11/12/24 11/12/24 11/12/24 06:32 11:19 16:20 WBC RBC Hgb Hct MCV MCH MCHC RDW Plt Count MPV Immature Gran % (Auto) Neut % (Auto) Lymph % (Auto) [place] % (Auto) Eos % (Auto) Baso % (Auto) Lymph # (Auto) [place] # (Auto) Eos # (Auto) Baso # (Auto) Abs Immat Gran (auto) Absolute Neuts (auto) Absolute Nucleated RBC Nucleated RBC % (auto) Smear Tech's Comments Hold Purple Top VBG pH VBG pCO2 VBG pO2 VBG HCO3 VBG O2 Saturation VBG Base Excess Sodium Potassium Chloride Carbon Dioxide Anion Gap BUN Creatinine Estim Creat Clear Calc Estimated GFR POC Glucose 171 H 121 H 170 H Random Glucose Estimat Average Glucose Hemoglobin A1c % Osmolality Lactic Acid Calcium Magnesium Iron TIBC % Saturation Unsat Iron Binding Total Bilirubin AST ALT Alkaline Phosphatase Total Protein Albumin Triglycerides Cholesterol LDL Cholesterol, Calc HDL Cholesterol Lipase TSH Free T4 Urine Color Urine Appearance Urine pH Ur Specific Bernard Urine Protein Urine Glucose (UA) Urine Ketones Urine Blood Urine Nitrite Ur Leukocyte Esterase Urine RBC Urine WBC Ur Squamous Epith Cells Urine Bacteria Hyaline Casts Urine Osmolality Ur Random Sodium Urine Opiates Screen Ur Buprenorphine Scrn Ur Oxycodone Screen Urine Methadone Screen Urine Fentanyl Screen Ur Barbiturates Screen Carbamazepine Ur Phencyclidine Scrn Ur Amphetamines Screen U Benzodiazepines Scrn Urine Cocaine Screen U Marijuana (THC) Screen COVID-19 ([facility]ESA) COVID-19 Clin Com Influenza Type A (AMANDA) Influenza Type B (AMANDA) Influenza A & B Note TB Test (T-Spot) Com TB Test Nil Control TB Test Panel A TB Test Panel B TB Test Positive [facility] 11/13/24 11/13/24 11/13/24 06:41 09:09 11:20 WBC RBC Hgb Hct MCV MCH MCHC RDW Plt Count MPV Immature Gran % (Auto) Neut % (Auto) Lymph % (Auto) [place] % (Auto) Eos % (Auto) Baso % (Auto) Lymph # (Auto) [place] # (Auto) Eos # (Auto) Baso # (Auto) Abs Immat Gran (auto) Absolute Neuts (auto) Absolute Nucleated RBC Nucleated RBC % (auto) Smear Tech's Comments Hold Purple Top VBG pH VBG pCO2 VBG pO2 VBG HCO3 VBG O2 Saturation VBG Base Excess Sodium Potassium Chloride Carbon Dioxide Anion Gap BUN Creatinine Estim Creat Clear Calc Estimated GFR POC Glucose 173 H 181 H Random Glucose Estimat Average Glucose Hemoglobin A1c % Osmolality Lactic Acid Calcium Magnesium Iron TIBC % Saturation Unsat Iron Binding Total Bilirubin AST ALT Alkaline Phosphatase Total Protein Albumin Triglycerides Cholesterol LDL Cholesterol, Calc HDL Cholesterol Lipase TSH Free T4 Urine Color Urine Appearance Urine pH Ur Specific Bernard Urine Protein Urine Glucose (UA) Urine Ketones Urine Blood Urine Nitrite Ur Leukocyte Esterase Urine RBC Urine WBC Ur Squamous Epith Cells Urine Bacteria Hyaline Casts Urine Osmolality Ur Random Sodium Urine Opiates Screen Ur Buprenorphine Scrn Ur Oxycodone Screen Urine Methadone Screen Urine Fentanyl Screen Ur Barbiturates Screen Carbamazepine 9.1 Ur Phencyclidine Scrn Ur Amphetamines Screen U Benzodiazepines Scrn Urine Cocaine Screen U Marijuana (THC) Screen COVID-19 ([facility]ESA) COVID-19 Clin Com Influenza Type A (AMANDA) Influenza Type B (AMANDA) Influenza A & B Note TB Test (T-Spot) Com TB Test Nil Control TB Test Panel A TB Test Panel B TB Test Positive Cntrl 11/13/24 11/13/24 11/13/24 11:27 11:30 15:40 WBC RBC Hgb Hct MCV MCH MCHC RDW Plt Count MPV Immature Gran % (Auto) Neut % (Auto) Lymph % (Auto) [place] % (Auto) Eos % (Auto) Baso % (Auto) Lymph # (Auto) [place] # (Auto) Eos # (Auto) Baso # (Auto) Abs Immat Gran (auto) Absolute Neuts (auto) Absolute Nucleated RBC Nucleated RBC % (auto) Smear Tech's Comments Hold Purple Top SEE NOTE VBG pH VBG pCO2 VBG pO2 VBG HCO3 VBG O2 Saturation VBG Base Excess Sodium 127 L Potassium 4.8 Chloride 95 L Carbon Dioxide 24 Anion Gap 13 BUN 21 H Creatinine 0.85 Estim Creat Clear Calc 39.5 Estimated GFR > 60 POC Glucose Random Glucose 191 H Estimat Average Glucose Hemoglobin A1c % Osmolality 271 L Lactic Acid Calcium 9.4 Magnesium Iron TIBC % Saturation Unsat Iron Binding Total Bilirubin 0.5 AST 16 ALT 21 Alkaline Phosphatase 68 Total Protein 7.2 Albumin 4.6 Triglycerides Cholesterol LDL Cholesterol, Calc HDL Cholesterol Lipase TSH Free T4 Urine Color Urine Appearance Urine pH Ur Specific Bernard Urine Protein Urine Glucose (UA) Urine Ketones Urine Blood Urine Nitrite Ur Leukocyte Esterase Urine RBC Urine WBC Ur Squamous Epith Cells Urine Bacteria Hyaline Casts Urine Osmolality Ur Random Sodium Urine Opiates Screen Ur Buprenorphine Scrn Ur Oxycodone Screen Urine Methadone Screen Urine Fentanyl Screen Ur Barbiturates Screen Carbamazepine Ur Phencyclidine Scrn Ur Amphetamines Screen U Benzodiazepines Scrn Urine Cocaine Screen U Marijuana (THC) Screen COVID-19 ([facility]ESA) COVID-19 Clin Com Influenza Type A (AMANDA) Influenza Type B (AMANDA) Influenza A & B Note TB Test (T-Spot) Com TB Test Nil Control TB Test Panel A TB Test Panel B TB Test Positive Cntrl 11/13/24 11/13/24 11/13/24 16:06 17:02 20:40 WBC RBC Hgb Hct MCV MCH MCHC RDW Plt Count MPV Immature Gran % (Auto) Neut % (Auto) Lymph % (Auto) [place] % (Auto) Eos % (Auto) Baso % (Auto) Lymph # (Auto) [place] # (Auto) Eos # (Auto) Baso # (Auto) Abs Immat Gran (auto) Absolute Neuts (auto) Absolute Nucleated RBC Nucleated RBC % (auto) Smear Tech's Comments Hold Purple Top VBG pH VBG pCO2 VBG pO2 VBG HCO3 VBG O2 Saturation VBG Base Excess Sodium Potassium Chloride Carbon Dioxide Anion Gap BUN Creatinine Estim Creat Clear Calc Estimated GFR POC Glucose 177 H 179 H Random Glucose Estimat Average Glucose Hemoglobin A1c % Osmolality Lactic Acid Calcium Magnesium Iron TIBC % Saturation Unsat Iron Binding Total Bilirubin AST ALT Alkaline Phosphatase Total Protein Albumin Triglycerides Cholesterol LDL Cholesterol, Calc HDL Cholesterol Lipase TSH Free T4 Urine Color Urine Appearance Urine pH Ur Specific Bernard Urine Protein Urine Glucose (UA) Urine Ketones Urine Blood Urine Nitrite Ur Leukocyte Esterase Urine RBC Urine WBC Ur Squamous Epith Cells Urine Bacteria Hyaline Casts Urine Osmolality 485 Ur Random Sodium 41.0 Urine Opiates Screen Ur Buprenorphine Scrn Ur Oxycodone Screen Urine Methadone Screen Urine Fentanyl Screen Ur Barbiturates Screen Carbamazepine Ur Phencyclidine Scrn Ur Amphetamines Screen U Benzodiazepines Scrn Urine Cocaine Screen U Marijuana (THC) Screen COVID-19 ([facility]A) COVID-19 Clin Com Influenza Type A (AMANDA) Influenza Type B (AMANDA) Influenza A & B Note TB Test (T-Spot) Com TB Test Nil Control TB Test Panel A TB Test Panel B TB Test Positive [facility] 11/14/24 11/14/24 11/14/24 06:25 07:19 11:34 WBC RBC Hgb Hct MCV MCH MCHC RDW Plt Count MPV Immature Gran % (Auto) Neut % (Auto) Lymph % (Auto) [place] % (Auto) Eos % (Auto) Baso % (Auto) Lymph # (Auto) [place] # (Auto) Eos # (Auto) Baso # (Auto) Abs Immat Gran (auto) Absolute Neuts (auto) Absolute Nucleated RBC Nucleated RBC % (auto) Smear Tech's Comments Hold Purple Top VBG pH VBG pCO2 VBG pO2 VBG HCO3 VBG O2 Saturation VBG Base Excess Sodium 132 L Potassium 5.0 Chloride 97 Carbon Dioxide 27 Anion Gap 13 BUN 26 H Creatinine 0.93 Estim Creat Clear Calc 36.1 Estimated GFR 59 POC Glucose 170 H 132 H Random Glucose 193 H Estimat Average Glucose Hemoglobin A1c % Osmolality Lactic Acid Calcium 9.5 Magnesium Iron TIBC % Saturation Unsat Iron Binding Total Bilirubin AST ALT Alkaline Phosphatase Total Protein Albumin Triglycerides Cholesterol LDL Cholesterol, Calc HDL Cholesterol Lipase TSH Free T4 Urine Color Urine Appearance Urine pH Ur Specific Bernard Urine Protein Urine Glucose (UA) Urine Ketones Urine Blood Urine Nitrite Ur Leukocyte Esterase Urine RBC Urine WBC Ur Squamous Epith Cells Urine Bacteria Hyaline Casts Urine Osmolality Ur Random Sodium Urine Opiates Screen Ur Buprenorphine Scrn Ur Oxycodone Screen Urine Methadone Screen Urine Fentanyl Screen Ur Barbiturates Screen Carbamazepine Ur Phencyclidine Scrn Ur Amphetamines Screen U Benzodiazepines Scrn Urine Cocaine Screen U Marijuana (THC) Screen COVID-19 ([facility]ESA) COVID-19 Clin Com Influenza Type A (AMANDA) Influenza Type B (AMANDA) Influenza A & B Note TB Test (T-Spot) Com TB Test Nil Control TB Test Panel A TB Test Panel B TB Test Positive [facility] 11/14/24 11/14/24 11/15/24 15:59 20:36 06:24 WBC RBC Hgb Hct MCV MCH MCHC RDW Plt Count MPV Immature Gran % (Auto) Neut % (Auto) Lymph % (Auto) [place] % (Auto) Eos % (Auto) Baso % (Auto) Lymph # (Auto) [place] # (Auto) Eos # (Auto) Baso # (Auto) Abs Immat Gran (auto) Absolute Neuts (auto) Absolute Nucleated RBC Nucleated RBC % (auto) Smear Tech's Comments Hold Purple Top VBG pH VBG pCO2 VBG pO2 VBG HCO3 VBG O2 Saturation VBG Base Excess Sodium Potassium Chloride Carbon Dioxide Anion Gap BUN Creatinine Estim Creat Clear Calc Estimated GFR POC Glucose 199 H 98 199 H Random Glucose Estimat Average Glucose Hemoglobin A1c % Osmolality Lactic Acid Calcium Magnesium Iron TIBC % Saturation Unsat Iron Binding Total Bilirubin AST ALT Alkaline Phosphatase Total Protein Albumin Triglycerides Cholesterol LDL Cholesterol, Calc HDL Cholesterol Lipase TSH Free T4 Urine Color Urine Appearance Urine pH Ur Specific Bernard Urine Protein Urine Glucose (UA) Urine Ketones Urine Blood Urine Nitrite Ur Leukocyte Esterase Urine RBC Urine WBC Ur Squamous Epith Cells Urine Bacteria Hyaline Casts Urine Osmolality Ur Random Sodium Urine Opiates Screen Ur Buprenorphine Scrn Ur Oxycodone Screen Urine Methadone Screen Urine Fentanyl Screen Ur Barbiturates Screen Carbamazepine Ur Phencyclidine Scrn Ur Amphetamines Screen U Benzodiazepines Scrn Urine Cocaine Screen U Marijuana (THC) Screen COVID-19 ([facility]ESA) COVID-19 Clin Com Influenza Type A (AMNADA) Influenza Type B (AMANDA) Influenza A & B Note TB Test (T-Spot) Com TB Test Nil Control TB Test Panel A TB Test Panel B TB Test Positive Cntrl 11/15/24 11/15/24 11/15/24 11:35 16:20 20:49 WBC RBC Hgb Hct MCV MCH MCHC RDW Plt Count MPV Immature Gran % (Auto) Neut % (Auto) Lymph % (Auto) [place] % (Auto) Eos % (Auto) Baso % (Auto) Lymph # (Auto) [place] # (Auto) Eos # (Auto) Baso # (Auto) Abs Immat Gran (auto) Absolute Neuts (auto) Absolute Nucleated RBC Nucleated RBC % (auto) Smear Tech's Comments Hold Purple Top VBG pH VBG pCO2 VBG pO2 VBG HCO3 VBG O2 Saturation VBG Base Excess Sodium Potassium Chloride Carbon Dioxide Anion Gap BUN Creatinine Estim Creat Clear Calc Estimated GFR POC Glucose 155 H 143 H 138 H Random Glucose Estimat Average Glucose Hemoglobin A1c % Osmolality Lactic Acid Calcium Magnesium Iron TIBC % Saturation Unsat Iron Binding Total Bilirubin AST ALT Alkaline Phosphatase Total Protein Albumin Triglycerides Cholesterol LDL Cholesterol, Calc HDL Cholesterol Lipase TSH Free T4 Urine Color Urine Appearance Urine pH Ur Specific Bernard Urine Protein Urine Glucose (UA) Urine Ketones Urine Blood Urine Nitrite Ur Leukocyte Esterase Urine RBC Urine WBC Ur Squamous Epith Cells Urine Bacteria Hyaline Casts Urine Osmolality Ur Random Sodium Urine Opiates Screen Ur Buprenorphine Scrn Ur Oxycodone Screen Urine Methadone Screen Urine Fentanyl Screen Ur Barbiturates Screen Carbamazepine Ur Phencyclidine Scrn Ur Amphetamines Screen U Benzodiazepines Scrn Urine Cocaine Screen U Marijuana (THC) Screen COVID-19 (TRESA) COVID-19 Clin Com Influenza Type A (AMANDA) Influenza Type B (AMANDA) Influenza A & B Note TB Test (T-Spot) Com TB Test Nil Control TB Test Panel A TB Test Panel B TB Test Positive Cntrl 11/16/24 11/16/24 11/16/24 06:35 11:24 13:55 WBC RBC Hgb Hct MCV MCH MCHC RDW Plt Count MPV Immature Gran % (Auto) Neut % (Auto) Lymph % (Auto) [place] % (Auto) Eos % (Auto) Baso % (Auto) Lymph # (Auto) [place] # (Auto) Eos # (Auto) Baso # (Auto) Abs Immat Gran (auto) Absolute Neuts (auto) Absolute Nucleated RBC Nucleated RBC % (auto) Smear Tech's Comments Hold Purple Top VBG pH VBG pCO2 VBG pO2 VBG HCO3 VBG O2 Saturation VBG Base Excess Sodium 134 L Potassium 4.7 Chloride 99 Carbon Dioxide 25 Anion Gap 15 BUN 21 H Creatinine 0.87 Estim Creat Clear Calc 38.7 Estimated GFR > 60 POC Glucose 192 H 152 H Random Glucose 58 L* Estimat Average Glucose Hemoglobin A1c % Osmolality Lactic Acid Calcium 9.6 Magnesium Iron TIBC % Saturation Unsat Iron Binding Total Bilirubin AST ALT Alkaline Phosphatase Total Protein Albumin Triglycerides Cholesterol LDL Cholesterol, Calc HDL Cholesterol Lipase TSH Free T4 Urine Color Urine Appearance Urine pH Ur Specific Bernard Urine Protein Urine Glucose (UA) Urine Ketones Urine Blood Urine Nitrite Ur Leukocyte Esterase Urine RBC Urine WBC Ur Squamous Epith Cells Urine Bacteria Hyaline Casts Urine Osmolality Ur Random Sodium Urine Opiates Screen Ur Buprenorphine Scrn Ur Oxycodone Screen Urine Methadone Screen Urine Fentanyl Screen Ur Barbiturates Screen Carbamazepine Ur Phencyclidine Scrn Ur Amphetamines Screen U Benzodiazepines Scrn Urine Cocaine Screen U Marijuana (THC) Screen COVID-19 (TRESA) COVID-19 Clin Com Influenza Type A (AMANDA) Influenza Type B (AMANDA) Influenza A & B Note TB Test (T-Spot) Com TB Test Nil Control TB Test Panel A TB Test Panel B TB Test Positive Cnt 11/16/24 11/16/24 11/16/24 14:34 16:22 20:02 WBC RBC Hgb Hct MCV MCH MCHC RDW Plt Count MPV Immature Gran % (Auto) Neut % (Auto) Lymph % (Auto) [place] % (Auto) Eos % (Auto) Baso % (Auto) Lymph # (Auto) [place] # (Auto) Eos # (Auto) Baso # (Auto) Abs Immat Gran (auto) Absolute Neuts (auto) Absolute Nucleated RBC Nucleated RBC % (auto) Smear Tech's Comments Hold Purple Top VBG pH VBG pCO2 VBG pO2 VBG HCO3 VBG O2 Saturation VBG Base Excess Sodium Potassium Chloride Carbon Dioxide Anion Gap BUN Creatinine Estim Creat Clear Calc Estimated GFR POC Glucose 69 126 H 141 H Random Glucose Estimat Average Glucose Hemoglobin A1c % Osmolality Lactic Acid Calcium Magnesium Iron TIBC % Saturation Unsat Iron Binding Total Bilirubin AST ALT Alkaline Phosphatase Total Protein Albumin Triglycerides Cholesterol LDL Cholesterol, Calc HDL Cholesterol Lipase TSH Free T4 Urine Color Urine Appearance Urine pH Ur Specific Bernard Urine Protein Urine Glucose (UA) Urine Ketones Urine Blood Urine Nitrite Ur Leukocyte Esterase Urine RBC Urine WBC Ur Squamous Epith Cells Urine Bacteria Hyaline Casts Urine Osmolality Ur Random Sodium Urine Opiates Screen Ur Buprenorphine Scrn Ur Oxycodone Screen Urine Methadone Screen Urine Fentanyl Screen Ur Barbiturates Screen Carbamazepine Ur Phencyclidine Scrn Ur Amphetamines Screen U Benzodiazepines Scrn Urine Cocaine Screen U Marijuana (THC) Screen COVID-19 (TRESA) COVID-19 Clin Com Influenza Type A (AMANDA) Influenza Type B (AMANDA) Influenza A & B Note TB Test (T-Spot) Com TB Test Nil Control TB Test Panel A TB Test Panel B TB Test Positive [facility] 11/17/24 11/17/24 11/17/24 06:32 11:12 14:40 WBC RBC Hgb Hct MCV MCH MCHC RDW Plt Count MPV Immature Gran % (Auto) Neut % (Auto) Lymph % (Auto) [place] % (Auto) Eos % (Auto) Baso % (Auto) Lymph # (Auto) [place] # (Auto) Eos # (Auto) Baso # (Auto) Abs Immat Gran (auto) Absolute Neuts (auto) Absolute Nucleated RBC Nucleated RBC % (auto) Smear Tech's Comments Hold Purple Top VBG pH VBG pCO2 VBG pO2 VBG HCO3 VBG O2 Saturation VBG Base Excess Sodium Potassium Chloride Carbon Dioxide Anion Gap BUN Creatinine Estim Creat Clear Calc Estimated GFR POC Glucose 177 H 184 H 149 H Random Glucose Estimat Average Glucose Hemoglobin A1c % Osmolality Lactic Acid Calcium Magnesium Iron TIBC % Saturation Unsat Iron Binding Total Bilirubin AST ALT Alkaline Phosphatase Total Protein Albumin Triglycerides Cholesterol LDL Cholesterol, Calc HDL Cholesterol Lipase TSH Free T4 Urine Color Urine Appearance Urine pH Ur Specific Bernard Urine Protein Urine Glucose (UA) Urine Ketones Urine Blood Urine Nitrite Ur Leukocyte Esterase Urine RBC Urine WBC Ur Squamous Epith Cells Urine Bacteria Hyaline Casts Urine Osmolality Ur Random Sodium Urine Opiates Screen Ur Buprenorphine Scrn Ur Oxycodone Screen Urine Methadone Screen Urine Fentanyl Screen Ur Barbiturates Screen Carbamazepine Ur Phencyclidine Scrn Ur Amphetamines Screen U Benzodiazepines Scrn Urine Cocaine Screen U Marijuana (THC) Screen COVID-19 ([facility]ESA) COVID-19 Clin Com Influenza Type A (AMANDA) Influenza Type B (AMANDA) Influenza A & B Note TB Test (T-Spot) Com TB Test Nil Control TB Test Panel A TB Test Panel B TB Test Positive [facility] 11/17/24 11/18/24 11/18/24 16:18 06:08 11:15 WBC RBC Hgb Hct MCV MCH MCHC RDW Plt Count MPV Immature Gran % (Auto) Neut % (Auto) Lymph % (Auto) [place] % (Auto) Eos % (Auto) Baso % (Auto) Lymph # (Auto) [place] # (Auto) Eos # (Auto) Baso # (Auto) Abs Immat Gran (auto) Absolute Neuts (auto) Absolute Nucleated RBC Nucleated RBC % (auto) Smear Tech's Comments Hold Purple Top VBG pH VBG pCO2 VBG pO2 VBG HCO3 VBG O2 Saturation VBG Base Excess Sodium Potassium Chloride Carbon Dioxide Anion Gap BUN Creatinine Estim Creat Clear Calc Estimated GFR POC Glucose 119 H 192 H 127 H Random Glucose Estimat Average Glucose Hemoglobin A1c % Osmolality Lactic Acid Calcium Magnesium Iron TIBC % Saturation Unsat Iron Binding Total Bilirubin AST ALT Alkaline Phosphatase Total Protein Albumin Triglycerides Cholesterol LDL Cholesterol, Calc HDL Cholesterol Lipase TSH Free T4 Urine Color Urine Appearance Urine pH Ur Specific Bernard Urine Protein Urine Glucose (UA) Urine Ketones Urine Blood Urine Nitrite Ur Leukocyte Esterase Urine RBC Urine WBC Ur Squamous Epith Cells Urine Bacteria Hyaline Casts Urine Osmolality Ur Random Sodium Urine Opiates Screen Ur Buprenorphine Scrn Ur Oxycodone Screen Urine Methadone Screen Urine Fentanyl Screen Ur Barbiturates Screen Carbamazepine Ur Phencyclidine Scrn Ur Amphetamines Screen U Benzodiazepines Scrn Urine Cocaine Screen U Marijuana (THC) Screen COVID-19 ([facility]ES[facility]) COVID-19 Clin Com Influenza Type A (AMANDA) Influenza Type B (AMANDA) Influenza A & B Note TB Test (T-Spot) Com TB Test Nil Control TB Test Panel A TB Test Panel B TB Test Positive Cntr 11/18/24 11/18/24 11/18/24 13:33 16:18 21:19 WBC RBC Hgb Hct MCV MCH MCHC RDW Plt Count MPV Immature Gran % (Auto) Neut % (Auto) Lymph % (Auto) [place] % (Auto) Eos % (Auto) Baso % (Auto) Lymph # (Auto) [place] # (Auto) Eos # (Auto) Baso # (Auto) Abs Immat Gran (auto) Absolute Neuts (auto) Absolute Nucleated RBC Nucleated RBC % (auto) Smear Tech's Comments Hold Purple Top VBG pH VBG pCO2 VBG pO2 VBG HCO3 VBG O2 Saturation VBG Base Excess Sodium 137 Potassium 4.9 Chloride 105 Carbon Dioxide 25 Anion Gap 12 BUN 27 H Creatinine 1.03 Estim Creat Clear Calc 32.6 Estimated GFR 52 POC Glucose 110 154 H Random Glucose 81 Estimat Average Glucose Hemoglobin A1c % Osmolality Lactic Acid Calcium 9.1 Magnesium Iron TIBC % Saturation Unsat Iron Binding Total Bilirubin 0.3 AST 18 ALT 26 Alkaline Phosphatase 67 Total Protein 7.1 Albumin 4.4 Triglycerides Cholesterol LDL Cholesterol, Calc HDL Cholesterol Lipase TSH Free T4 Urine Color Urine Appearance Urine pH Ur Specific Bernard Urine Protein Urine Glucose (UA) Urine Ketones Urine Blood Urine Nitrite Ur Leukocyte Esterase Urine RBC Urine WBC Ur Squamous Epith Cells Urine Bacteria Hyaline Casts Urine Osmolality Ur Random Sodium Urine Opiates Screen Ur Buprenorphine Scrn Ur Oxycodone Screen Urine Methadone Screen Urine Fentanyl Screen Ur Barbiturates Screen Carbamazepine Ur Phencyclidine Scrn Ur Amphetamines Screen U Benzodiazepines Scrn Urine Cocaine Screen U Marijuana (THC) Screen COVID-19 ([facility]) COVID-19 Clin Com Influenza Type A (AMANDA) Influenza Type B (AMANDA) Influenza A & B Note TB Test (T-Spot) Com TB Test Nil Control TB Test Panel A TB Test Panel B TB Test Positive Cnt 07/11/19/24 11/19/24 06:30 11:23 15:59 WBC RBC Hgb Hct MCV MCH MCHC RDW Plt Count MPV Immature Gran % (Auto) Neut % (Auto) Lymph % (Auto) [place] % (Auto) Eos % (Auto) Baso % (Auto) Lymph # (Auto) [place] # (Auto) Eos # (Auto) Baso # (Auto) Abs Immat Gran (auto) Absolute Neuts (auto) Absolute Nucleated RBC Nucleated RBC % (auto) Smear Tech's Comments Hold Purple Top VBG pH VBG pCO2 VBG pO2 VBG HCO3 VBG O2 Saturation VBG Base Excess Sodium Potassium Chloride Carbon Dioxide Anion Gap BUN Creatinine Estim Creat Clear Calc Estimated GFR POC Glucose 178 H 157 H 110 Random Glucose Estimat Average Glucose Hemoglobin A1c % Osmolality Lactic Acid Calcium Magnesium Iron TIBC % Saturation Unsat Iron Binding Total Bilirubin AST ALT Alkaline Phosphatase Total Protein Albumin Triglycerides Cholesterol LDL Cholesterol, Calc HDL Cholesterol Lipase TSH Free T4 Urine Color Urine Appearance Urine pH Ur Specific Bernard Urine Protein Urine Glucose (UA) Urine Ketones Urine Blood Urine Nitrite Ur Leukocyte Esterase Urine RBC Urine WBC Ur Squamous Epith Cells Urine Bacteria Hyaline Casts Urine Osmolality Ur Random Sodium Urine Opiates Screen Ur Buprenorphine Scrn Ur Oxycodone Screen Urine Methadone Screen Urine Fentanyl Screen Ur Barbiturates Screen Carbamazepine Ur Phencyclidine Scrn Ur Amphetamines Screen U Benzodiazepines Scrn Urine Cocaine Screen U Marijuana (THC) Screen COVID-19 ([facility]ESA) COVID-19 Clin Com Influenza Type A (AMANDA) Influenza Type B (AMANDA) Influenza A & B Note TB Test (T-Spot) Com TB Test Nil Control TB Test Panel A TB Test Panel B TB Test Positive [facility] 11/19/24 11/20/24 11/20/24 19:50 06:36 11:02 WBC RBC Hgb Hct MCV MCH MCHC RDW Plt Count MPV Immature Gran % (Auto) Neut % (Auto) Lymph % (Auto) [place] % (Auto) Eos % (Auto) Baso % (Auto) Lymph # (Auto) [place] # (Auto) Eos # (Auto) Baso # (Auto) Abs Immat Gran (auto) Absolute Neuts (auto) Absolute Nucleated RBC Nucleated RBC % (auto) Smear Tech's Comments Hold Purple Top VBG pH VBG pCO2 VBG pO2 VBG HCO3 VBG O2 Saturation VBG Base Excess Sodium 137 Potassium 4.7 Chloride 102 Carbon Dioxide 27 Anion Gap 13 BUN 23 H Creatinine 0.99 Estim Creat Clear Calc 34.0 Estimated GFR 55 POC Glucose 205 H 165 H Random Glucose 129 H Estimat Average Glucose 154 Hemoglobin A1c % 7.0 H Osmolality Lactic Acid Calcium 9.5 Magnesium Iron TIBC % Saturation Unsat Iron Binding Total Bilirubin AST ALT Alkaline Phosphatase Total Protein Albumin Triglycerides Cholesterol LDL Cholesterol, Calc HDL Cholesterol Lipase TSH Free T4 Urine Color Urine Appearance Urine pH Ur Specific Bernard Urine Protein Urine Glucose (UA) Urine Ketones Urine Blood Urine Nitrite Ur Leukocyte Esterase Urine RBC Urine WBC Ur Squamous Epith Cells Urine Bacteria Hyaline Casts Urine Osmolality Ur Random Sodium Urine Opiates Screen Ur Buprenorphine Scrn Ur Oxycodone Screen Urine Methadone Screen Urine Fentanyl Screen Ur Barbiturates Screen Carbamazepine Ur Phencyclidine Scrn Ur Amphetamines Screen U Benzodiazepines Scrn Urine Cocaine Screen U Marijuana (THC) Screen COVID-19 ([facility]ESA) COVID-19 Clin Com Influenza Type A (AMANDA) Influenza Type B (AMANDA) Influenza A & B Note TB Test (T-Spot) Com TB Test Nil Control TB Test Panel A TB Test Panel B TB Test Positive Cntr 11/20/24 11/20/24 11/20/24 11:33 16:23 20:46 WBC RBC Hgb Hct MCV MCH MCHC RDW Plt Count MPV Immature Gran % (Auto) Neut % (Auto) Lymph % (Auto) [place] % (Auto) Eos % (Auto) Baso % (Auto) Lymph # (Auto) [place] # (Auto) Eos # (Auto) Baso # (Auto) Abs Immat Gran (auto) Absolute Neuts (auto) Absolute Nucleated RBC Nucleated RBC % (auto) Smear Tech's Comments Hold Purple Top VBG pH VBG pCO2 VBG pO2 VBG HCO3 VBG O2 Saturation VBG Base Excess Sodium Potassium Chloride Carbon Dioxide Anion Gap BUN Creatinine Estim Creat Clear Calc Estimated GFR POC Glucose 106 202 H 162 H Random Glucose Estimat Average Glucose Hemoglobin A1c % Osmolality Lactic Acid Calcium Magnesium Iron TIBC % Saturation Unsat Iron Binding Total Bilirubin AST ALT Alkaline Phosphatase Total Protein Albumin Triglycerides Cholesterol LDL Cholesterol, Calc HDL Cholesterol Lipase TSH Free T4 Urine Color Urine Appearance Urine pH Ur Specific Bernard Urine Protein Urine Glucose (UA) Urine Ketones Urine Blood Urine Nitrite Ur Leukocyte Esterase Urine RBC Urine WBC Ur Squamous Epith Cells Urine Bacteria Hyaline Casts Urine Osmolality Ur Random Sodium Urine Opiates Screen Ur Buprenorphine Scrn Ur Oxycodone Screen Urine Methadone Screen Urine Fentanyl Screen Ur Barbiturates Screen Carbamazepine Ur Phencyclidine Scrn Ur Amphetamines Screen U Benzodiazepines Scrn Urine Cocaine Screen U Marijuana (THC) Screen COVID-19 ([facility]ES[facility]) COVID-19 Clin Com Influenza Type A (AMANDA) Influenza Type B (AMANDA) Influenza A & B Note TB Test (T-Spot) Com TB Test Nil Control TB Test Panel A TB Test Panel B TB Test Positive Cntrl 11/21/24 11/21/24 11/21/24 06:31 11:24 16:25 WBC RBC Hgb Hct MCV MCH MCHC RDW Plt Count MPV Immature Gran % (Auto) Neut % (Auto) Lymph % (Auto) [place] % (Auto) Eos % (Auto) Baso % (Auto) Lymph # (Auto) [place] # (Auto) Eos # (Auto) Baso # (Auto) Abs Immat Gran (auto) Absolute Neuts (auto) Absolute Nucleated RBC Nucleated RBC % (auto) Smear Tech's Comments Hold Purple Top VBG pH VBG pCO2 VBG pO2 VBG HCO3 VBG O2 Saturation VBG Base Excess Sodium Potassium Chloride Carbon Dioxide Anion Gap BUN Creatinine Estim Creat Clear Calc Estimated GFR POC Glucose 189 H 196 H 110 Random Glucose Estimat Average Glucose Hemoglobin A1c % Osmolality Lactic Acid Calcium Magnesium Iron TIBC % Saturation Unsat Iron Binding Total Bilirubin AST ALT Alkaline Phosphatase Total Protein Albumin Triglycerides Cholesterol LDL Cholesterol, Calc HDL Cholesterol Lipase TSH Free T4 Urine Color Urine Appearance Urine pH Ur Specific Bernard Urine Protein Urine Glucose (UA) Urine Ketones Urine Blood Urine Nitrite Ur Leukocyte Esterase Urine RBC Urine WBC Ur Squamous Epith Cells Urine Bacteria Hyaline Casts Urine Osmolality Ur Random Sodium Urine Opiates Screen Ur Buprenorphine Scrn Ur Oxycodone Screen Urine Methadone Screen Urine Fentanyl Screen Ur Barbiturates Screen Carbamazepine Ur Phencyclidine Scrn Ur Amphetamines Screen U Benzodiazepines Scrn Urine Cocaine Screen U Marijuana (THC) Screen COVID-19 (TRESA) COVID-19 Clin Com Influenza Type A (AMANDA) Influenza Type B (AMANDA) Influenza A & B Note TB Test (T-Spot) Com TB Test Nil Control TB Test Panel A TB Test Panel B TB Test Positive Cntr 11/21/24 11/22/24 11/22/24 21:16 06:56 11:14 WBC RBC Hgb Hct MCV MCH MCHC RDW Plt Count MPV Immature Gran % (Auto) Neut % (Auto) Lymph % (Auto) [place] % (Auto) Eos % (Auto) Baso % (Auto) Lymph # (Auto) [place] # (Auto) Eos # (Auto) Baso # (Auto) Abs Immat Gran (auto) Absolute Neuts (auto) Absolute Nucleated RBC Nucleated RBC % (auto) Smear Tech's Comments Hold Purple Top VBG pH VBG pCO2 VBG pO2 VBG HCO3 VBG O2 Saturation VBG Base Excess Sodium Potassium Chloride Carbon Dioxide Anion Gap BUN Creatinine Estim Creat Clear Calc Estimated GFR POC Glucose 138 H 195 H 224 H Random Glucose Estimat Average Glucose Hemoglobin A1c % Osmolality Lactic Acid Calcium Magnesium Iron TIBC % Saturation Unsat Iron Binding Total Bilirubin AST ALT Alkaline Phosphatase Total Protein Albumin Triglycerides Cholesterol LDL Cholesterol, Calc HDL Cholesterol Lipase TSH Free T4 Urine Color Urine Appearance Urine pH Ur Specific Bernard Urine Protein Urine Glucose (UA) Urine Ketones Urine Blood Urine Nitrite Ur Leukocyte Esterase Urine RBC Urine WBC Ur Squamous Epith Cells Urine Bacteria Hyaline Casts Urine Osmolality Ur Random Sodium Urine Opiates Screen Ur Buprenorphine Scrn Ur Oxycodone Screen Urine Methadone Screen Urine Fentanyl Screen Ur Barbiturates Screen Carbamazepine Ur Phencyclidine Scrn Ur Amphetamines Screen U Benzodiazepines Scrn Urine Cocaine Screen U Marijuana (THC) Screen COVID-19 ([facility]ESA) COVID-19 Clin Com Influenza Type A (AMANDA) Influenza Type B (AMANDA) Influenza A & B Note TB Test (T-Spot) Com TB Test Nil Control TB Test Panel A TB Test Panel B TB Test Positive Cntrl 11/22/24 11/22/24 11/23/24 16:28 21:06 06:14 WBC RBC Hgb Hct MCV MCH MCHC RDW Plt Count MPV Immature Gran % (Auto) Neut % (Auto) Lymph % (Auto) [place] % (Auto) Eos % (Auto) Baso % (Auto) Lymph # (Auto) [place] # (Auto) Eos # (Auto) Baso # (Auto) Abs Immat Gran (auto) Absolute Neuts (auto) Absolute Nucleated RBC Nucleated RBC % (auto) Smear Tech's Comments Hold Purple Top VBG pH VBG pCO2 VBG pO2 VBG HCO3 VBG O2 Saturation VBG Base Excess Sodium Potassium Chloride Carbon Dioxide Anion Gap BUN Creatinine Estim Creat Clear Calc Estimated GFR POC Glucose 129 H 94 191 H Random Glucose Estimat Average Glucose Hemoglobin A1c % Osmolality Lactic Acid Calcium Magnesium Iron TIBC % Saturation Unsat Iron Binding Total Bilirubin AST ALT Alkaline Phosphatase Total Protein Albumin Triglycerides Cholesterol LDL Cholesterol, Calc HDL Cholesterol Lipase TSH Free T4 Urine Color Urine Appearance Urine pH Ur Specific Bernard Urine Protein Urine Glucose (UA) Urine Ketones Urine Blood Urine Nitrite Ur Leukocyte Esterase Urine RBC Urine WBC Ur Squamous Epith Cells Urine Bacteria Hyaline Casts Urine Osmolality Ur Random Sodium Urine Opiates Screen Ur Buprenorphine Scrn Ur Oxycodone Screen Urine Methadone Screen Urine Fentanyl Screen Ur Barbiturates Screen Carbamazepine Ur Phencyclidine Scrn Ur Amphetamines Screen U Benzodiazepines Scrn Urine Cocaine Screen U Marijuana (THC) Screen COVID-19 ([facility]ESA) COVID-19 Clin Com Influenza Type A (AMANDA) Influenza Type B (AMANDA) Influenza A & B Note TB Test (T-Spot) Com TB Test Nil Control TB Test Panel A TB Test Panel B TB Test Positive Cntrl 11/23/24 11/24/24 11/25/24 11:22 06:16 06:42 WBC RBC Hgb Hct MCV MCH MCHC RDW Plt Count MPV Immature Gran % (Auto) Neut % (Auto) Lymph % (Auto) [place] % (Auto) Eos % (Auto) Baso % (Auto) Lymph # (Auto) [place] # (Auto) Eos # (Auto) Baso # (Auto) Abs Immat Gran (auto) Absolute Neuts (auto) Absolute Nucleated RBC Nucleated RBC % (auto) Smear Tech's Comments Hold Purple Top VBG pH VBG pCO2 VBG pO2 VBG HCO3 VBG O2 Saturation VBG Base Excess Sodium Potassium Chloride Carbon Dioxide Anion Gap BUN Creatinine Estim Creat Clear Calc Estimated GFR POC Glucose 188 H 184 H 167 H Random Glucose Estimat Average Glucose Hemoglobin A1c % Osmolality Lactic Acid Calcium Magnesium Iron TIBC % Saturation Unsat Iron Binding Total Bilirubin AST ALT Alkaline Phosphatase Total Protein Albumin Triglycerides Cholesterol LDL Cholesterol, Calc HDL Cholesterol Lipase TSH Free T4 Urine Color Urine Appearance Urine pH Ur Specific Bernard Urine Protein Urine Glucose (UA) Urine Ketones Urine Blood Urine Nitrite Ur Leukocyte Esterase Urine RBC Urine WBC Ur Squamous Epith Cells Urine Bacteria Hyaline Casts Urine Osmolality Ur Random Sodium Urine Opiates Screen Ur Buprenorphine Scrn Ur Oxycodone Screen Urine Methadone Screen Urine Fentanyl Screen Ur Barbiturates Screen Carbamazepine Ur Phencyclidine Scrn Ur Amphetamines Screen U Benzodiazepines Scrn Urine Cocaine Screen U Marijuana (THC) Screen COVID-19 ([facility]ESA) COVID-19 Clin Com Influenza Type A (AMANDA) Influenza Type B (AMANDA) Influenza A & B Note TB Test (T-Spot) Com TB Test Nil Control TB Test Panel A TB Test Panel B TB Test Positive [facility] 11/26/24 11/27/24 11/28/24 06:23 06:32 06:13 WBC RBC Hgb Hct MCV MCH MCHC RDW Plt Count MPV Immature Gran % (Auto) Neut % (Auto) Lymph % (Auto) [place] % (Auto) Eos % (Auto) Baso % (Auto) Lymph # (Auto) [place] # (Auto) Eos # (Auto) Baso # (Auto) Abs Immat Gran (auto) Absolute Neuts (auto) Absolute Nucleated RBC Nucleated RBC % (auto) Smear Tech's Comments Hold Purple Top VBG pH VBG pCO2 VBG pO2 VBG HCO3 VBG O2 Saturation VBG Base Excess Sodium Potassium Chloride Carbon Dioxide Anion Gap BUN Creatinine Estim Creat Clear Calc Estimated GFR POC Glucose 166 H 167 H 159 H Random Glucose Estimat Average Glucose Hemoglobin A1c % Osmolality Lactic Acid Calcium Magnesium Iron TIBC % Saturation Unsat Iron Binding Total Bilirubin AST ALT Alkaline Phosphatase Total Protein Albumin Triglycerides Cholesterol LDL Cholesterol, Calc HDL Cholesterol Lipase TSH Free T4 Urine Color Urine Appearance Urine pH Ur Specific Bernard Urine Protein Urine Glucose (UA) Urine Ketones Urine Blood Urine Nitrite Ur Leukocyte Esterase Urine RBC Urine WBC Ur Squamous Epith Cells Urine Bacteria Hyaline Casts Urine Osmolality Ur Random Sodium Urine Opiates Screen Ur Buprenorphine Scrn Ur Oxycodone Screen Urine Methadone Screen Urine Fentanyl Screen Ur Barbiturates Screen Carbamazepine Ur Phencyclidine Scrn Ur Amphetamines Screen U Benzodiazepines Scrn Urine Cocaine Screen U Marijuana (THC) Screen COVID-19 ([facility]ESA) COVID-19 Clin Com Influenza Type A (AMANDA) Influenza Type B (AMANDA) Influenza A & B Note TB Test (T-Spot) Com TB Test Nil Control TB Test Panel A TB Test Panel B TB Test Positive [facility] 11/29/24 11/30/24 12/01/24 06:16 06:16 06:37 WBC RBC Hgb Hct MCV MCH MCHC RDW Plt Count MPV Immature Gran % (Auto) Neut % (Auto) Lymph % (Auto) [place] % (Auto) Eos % (Auto) Baso % (Auto) Lymph # (Auto) [place] # (Auto) Eos # (Auto) Baso # (Auto) Abs Immat Gran (auto) Absolute Neuts (auto) Absolute Nucleated RBC Nucleated RBC % (auto) Smear Tech's Comments Hold Purple Top VBG pH VBG pCO2 VBG pO2 VBG HCO3 VBG O2 Saturation VBG Base Excess Sodium Potassium Chloride Carbon Dioxide Anion Gap BUN Creatinine Estim Creat Clear Calc Estimated GFR POC Glucose 156 H 136 H 129 H Random Glucose Estimat Average Glucose Hemoglobin A1c % Osmolality Lactic Acid Calcium Magnesium Iron TIBC % Saturation Unsat Iron Binding Total Bilirubin AST ALT Alkaline Phosphatase Total Protein Albumin Triglycerides Cholesterol LDL Cholesterol, Calc HDL Cholesterol Lipase TSH Free T4 Urine Color Urine Appearance Urine pH Ur Specific Bernard Urine Protein Urine Glucose (UA) Urine Ketones Urine Blood Urine Nitrite Ur Leukocyte Esterase Urine RBC Urine WBC Ur Squamous Epith Cells Urine Bacteria Hyaline Casts Urine Osmolality Ur Random Sodium Urine Opiates Screen Ur Buprenorphine Scrn Ur Oxycodone Screen Urine Methadone Screen Urine Fentanyl Screen Ur Barbiturates Screen Carbamazepine Ur Phencyclidine Scrn Ur Amphetamines Screen U Benzodiazepines Scrn Urine Cocaine Screen U Marijuana (THC) Screen COVID-19 (TRESA) COVID-19 Clin Com Influenza Type A (AMANDA) Influenza Type B (AMANDA) Influenza A & B Note TB Test (T-Spot) Com TB Test Nil Control TB Test Panel A TB Test Panel B TB Test Positive Cntrl 12/02/24 12/03/24 12/03/24 06:24 06:17 16:25 WBC RBC Hgb Hct MCV MCH MCHC RDW Plt Count MPV Immature Gran % (Auto) Neut % (Auto) Lymph % (Auto) [place] % (Auto) Eos % (Auto) Baso % (Auto) Lymph # (Auto) [place] # (Auto) Eos # (Auto) Baso # (Auto) Abs Immat Gran (auto) Absolute Neuts (auto) Absolute Nucleated RBC Nucleated RBC % (auto) Smear Tech's Comments Hold Purple Top VBG pH VBG pCO2 VBG pO2 VBG HCO3 VBG O2 Saturation VBG Base Excess Sodium Potassium Chloride Carbon Dioxide Anion Gap BUN Creatinine Estim Creat Clear Calc Estimated GFR POC Glucose 163 H 182 H 120 H Random Glucose Estimat Average Glucose Hemoglobin A1c % Osmolality Lactic Acid Calcium Magnesium Iron TIBC % Saturation Unsat Iron Binding Total Bilirubin AST ALT Alkaline Phosphatase Total Protein Albumin Triglycerides Cholesterol LDL Cholesterol, Calc HDL Cholesterol Lipase TSH Free T4 Urine Color Urine Appearance Urine pH Ur Specific Bernard Urine Protein Urine Glucose (UA) Urine Ketones Urine Blood Urine Nitrite Ur Leukocyte Esterase Urine RBC Urine WBC Ur Squamous Epith Cells Urine Bacteria Hyaline Casts Urine Osmolality Ur Random Sodium Urine Opiates Screen Ur Buprenorphine Scrn Ur Oxycodone Screen Urine Methadone Screen Urine Fentanyl Screen Ur Barbiturates Screen Carbamazepine Ur Phencyclidine Scrn Ur Amphetamines Screen U Benzodiazepines Scrn Urine Cocaine Screen U Marijuana (THC) Screen COVID-19 (TRESA) COVID-19 Clin Com Influenza Type A (AMANDA) Influenza Type B (AMANDA) Influenza A & B Note TB Test (T-Spot) Com TB Test Nil Control TB Test Panel A TB Test Panel B TB Test Positive Cntrl 12/04/24 12/05/24 12/06/24 05:52 06:00 05:54 WBC RBC Hgb Hct MCV MCH MCHC RDW Plt Count MPV Immature Gran % (Auto) Neut % (Auto) Lymph % (Auto) [place] % (Auto) Eos % (Auto) Baso % (Auto) Lymph # (Auto) [place] # (Auto) Eos # (Auto) Baso # (Auto) Abs Immat Gran (auto) Absolute Neuts (auto) Absolute Nucleated RBC Nucleated RBC % (auto) Smear Tech's Comments Hold Purple Top VBG pH VBG pCO2 VBG pO2 VBG HCO3 VBG O2 Saturation VBG Base Excess Sodium Potassium Chloride Carbon Dioxide Anion Gap BUN Creatinine Estim Creat Clear Calc Estimated GFR POC Glucose 161 H 185 H 206 H Random Glucose Estimat Average Glucose Hemoglobin A1c % Osmolality Lactic Acid Calcium Magnesium Iron TIBC % Saturation Unsat Iron Binding Total Bilirubin AST ALT Alkaline Phosphatase Total Protein Albumin Triglycerides Cholesterol LDL Cholesterol, Calc HDL Cholesterol Lipase TSH Free T4 Urine Color Urine Appearance Urine pH Ur Specific Bernard Urine Protein Urine Glucose (UA) Urine Ketones Urine Blood Urine Nitrite Ur Leukocyte Esterase Urine RBC Urine WBC Ur Squamous Epith Cells Urine Bacteria Hyaline Casts Urine Osmolality Ur Random Sodium Urine Opiates Screen Ur Buprenorphine Scrn Ur Oxycodone Screen Urine Methadone Screen Urine Fentanyl Screen Ur Barbiturates Screen Carbamazepine Ur Phencyclidine Scrn Ur Amphetamines Screen U Benzodiazepines Scrn Urine Cocaine Screen U Marijuana (THC) Screen COVID-19 (TRESA) COVID-19 Clin Com Influenza Type A (AMANDA) Influenza Type B (AMANDA) Influenza A & B Note TB Test (T-Spot) Com TB Test Nil Control TB Test Panel A TB Test Panel B TB Test Positive Cntr 12/07/24 12/08/24 12/09/24 06:19 06:31 06:26 WBC RBC Hgb Hct MCV MCH MCHC RDW Plt Count MPV Immature Gran % (Auto) Neut % (Auto) Lymph % (Auto) [place] % (Auto) Eos % (Auto) Baso % (Auto) Lymph # (Auto) [place] # (Auto) Eos # (Auto) Baso # (Auto) Abs Immat Gran (auto) Absolute Neuts (auto) Absolute Nucleated RBC Nucleated RBC % (auto) Smear Tech's Comments Hold Purple Top VBG pH VBG pCO2 VBG pO2 VBG HCO3 VBG O2 Saturation VBG Base Excess Sodium Potassium Chloride Carbon Dioxide Anion Gap BUN Creatinine Estim Creat Clear Calc Estimated GFR POC Glucose 194 H 163 H 165 H Random Glucose Estimat Average Glucose Hemoglobin A1c % Osmolality Lactic Acid Calcium Magnesium Iron TIBC % Saturation Unsat Iron Binding Total Bilirubin AST ALT Alkaline Phosphatase Total Protein Albumin Triglycerides Cholesterol LDL Cholesterol, Calc HDL Cholesterol Lipase TSH Free T4 Urine Color Urine Appearance Urine pH Ur Specific Bernard Urine Protein Urine Glucose (UA) Urine Ketones Urine Blood Urine Nitrite Ur Leukocyte Esterase Urine RBC Urine WBC Ur Squamous Epith Cells Urine Bacteria Hyaline Casts Urine Osmolality Ur Random Sodium Urine Opiates Screen Ur Buprenorphine Scrn Ur Oxycodone Screen Urine Methadone Screen Urine Fentanyl Screen Ur Barbiturates Screen Carbamazepine Ur Phencyclidine Scrn Ur Amphetamines Screen U Benzodiazepines Scrn Urine Cocaine Screen U Marijuana (THC) Screen COVID-19 (TRESA) COVID-19 Clin Com Influenza Type A (AMANDA) Influenza Type B (AMANDA) Influenza A & B Note TB Test (T-Spot) Com TB Test Nil Control TB Test Panel A TB Test Panel B TB Test Positive Cntr 12/09/24 12/10/24 12/11/24 12:31 06:09 06:15 WBC RBC Hgb Hct MCV MCH MCHC RDW Plt Count MPV Immature Gran % (Auto) Neut % (Auto) Lymph % (Auto) [place] % (Auto) Eos % (Auto) Baso % (Auto) Lymph # (Auto) [place] # (Auto) Eos # (Auto) Baso # (Auto) Abs Immat Gran (auto) Absolute Neuts (auto) Absolute Nucleated RBC Nucleated RBC % (auto) Smear Tech's Comments Hold Purple Top VBG pH VBG pCO2 VBG pO2 VBG HCO3 VBG O2 Saturation VBG Base Excess Sodium Potassium Chloride Carbon Dioxide Anion Gap BUN Creatinine Estim Creat Clear Calc Estimated GFR POC Glucose 167 H 159 H Random Glucose Estimat Average Glucose Hemoglobin A1c % Osmolality Lactic Acid Calcium Magnesium Iron TIBC % Saturation Unsat Iron Binding Total Bilirubin AST ALT Alkaline Phosphatase Total Protein Albumin Triglycerides Cholesterol LDL Cholesterol, Calc HDL Cholesterol Lipase TSH Free T4 Urine Color Urine Appearance Urine pH Ur Specific Bernard Urine Protein Urine Glucose (UA) Urine Ketones Urine Blood Urine Nitrite Ur Leukocyte Esterase Urine RBC Urine WBC Ur Squamous Epith Cells Urine Bacteria Hyaline Casts Urine Osmolality Ur Random Sodium Urine Opiates Screen Ur Buprenorphine Scrn Ur Oxycodone Screen Urine Methadone Screen Urine Fentanyl Screen Ur Barbiturates Screen Carbamazepine Ur Phencyclidine Scrn Ur Amphetamines Screen U Benzodiazepines Scrn Urine Cocaine Screen U Marijuana (THC) Screen COVID-19 ([facility]) COVID-19 Clin Com Influenza Type A (AMANDA) Influenza Type B (AMANDA) Influenza A & B Note TB Test (T-Spot) Com Negative TB Test Nil Control Passed TB Test Panel A 1 TB Test Panel B 0 TB Test Positive Cntrl Passed 12/12/24 12/13/24 12/13/24 06:24 06:14 12:13 WBC RBC Hgb Hct MCV MCH MCHC RDW Plt Count MPV Immature Gran % (Auto) Neut % (Auto) Lymph % (Auto) [place] % (Auto) Eos % (Auto) Baso % (Auto) Lymph # (Auto) [place] # (Auto) Eos # (Auto) Baso # (Auto) Abs Immat Gran (auto) Absolute Neuts (auto) Absolute Nucleated RBC Nucleated RBC % (auto) Smear Tech's Comments Hold Purple Top VBG pH VBG pCO2 VBG pO2 VBG HCO3 VBG O2 Saturation VBG Base Excess Sodium 135 Potassium 4.4 Chloride 103 Carbon Dioxide 20 L Anion Gap 16 BUN 32 H Creatinine 1.39 Estim Creat Clear Calc 24.1 Estimated GFR 37 POC Glucose 148 H 151 H Random Glucose 351 H* Estimat Average Glucose Hemoglobin A1c % Osmolality Lactic Acid Calcium 9.3 Magnesium Iron TIBC % Saturation Unsat Iron Binding Total Bilirubin AST ALT Alkaline Phosphatase Total Protein Albumin Triglycerides Cholesterol LDL Cholesterol, Calc HDL Cholesterol Lipase TSH Free T4 Urine Color Urine Appearance Urine pH Ur Specific Bernard Urine Protein Urine Glucose (UA) Urine Ketones Urine Blood Urine Nitrite Ur Leukocyte Esterase Urine RBC Urine WBC Ur Squamous Epith Cells Urine Bacteria Hyaline Casts Urine Osmolality Ur Random Sodium Urine Opiates Screen Ur Buprenorphine Scrn Ur Oxycodone Screen Urine Methadone Screen Urine Fentanyl Screen Ur Barbiturates Screen Carbamazepine Ur Phencyclidine Scrn Ur Amphetamines Screen U Benzodiazepines Scrn Urine Cocaine Screen U Marijuana (THC) Screen COVID-19 ([facility]) COVID-19 Clin Com Influenza Type A (AMANDA) Influenza Type B (AMANDA) Influenza A & B Note TB Test (T-Spot) Com TB Test Nil Control TB Test Panel A TB Test Panel B TB Test Positive Cntrl 12/14/24 12/15/24 12/15/24 06:21 06:11 21:16 WBC RBC Hgb Hct MCV MCH MCHC RDW Plt Count MPV Immature Gran % (Auto) Neut % (Auto) Lymph % (Auto) [place] % (Auto) Eos % (Auto) Baso % (Auto) Lymph # (Auto) [place] # (Auto) Eos # (Auto) Baso # (Auto) Abs Immat Gran (auto) Absolute Neuts (auto) Absolute Nucleated RBC Nucleated RBC % (auto) Smear Tech's Comments Hold Purple Top VBG pH VBG pCO2 VBG pO2 VBG HCO3 VBG O2 Saturation VBG Base Excess Sodium Potassium Chloride Carbon Dioxide Anion Gap BUN Creatinine Estim Creat Clear Calc Estimated GFR POC Glucose 150 H 158 H 106 Random Glucose Estimat Average Glucose Hemoglobin A1c % Osmolality Lactic Acid Calcium Magnesium Iron TIBC % Saturation Unsat Iron Binding Total Bilirubin AST ALT Alkaline Phosphatase Total Protein Albumin Triglycerides Cholesterol LDL Cholesterol, Calc HDL Cholesterol Lipase TSH Free T4 Urine Color Urine Appearance Urine pH Ur Specific Bernard Urine Protein Urine Glucose (UA) Urine Ketones Urine Blood Urine Nitrite Ur Leukocyte Esterase Urine RBC Urine WBC Ur Squamous Epith Cells Urine Bacteria Hyaline Casts Urine Osmolality Ur Random Sodium Urine Opiates Screen Ur Buprenorphine Scrn Ur Oxycodone Screen Urine Methadone Screen Urine Fentanyl Screen Ur Barbiturates Screen Carbamazepine Ur Phencyclidine Scrn Ur Amphetamines Screen U Benzodiazepines Scrn Urine Cocaine Screen U Marijuana (THC) Screen COVID-19 ([facility]) COVID-19 Clin Com Influenza Type A (AMANDA) Influenza Type B (AMANDA) Influenza A & B Note TB Test (T-Spot) Com TB Test Nil Control TB Test Panel A TB Test Panel B TB Test Positive Cntr 12/16/24 12/16/24 12/16/24 06:45 12:26 15:35 WBC RBC Hgb Hct MCV MCH MCHC RDW Plt Count MPV Immature Gran % (Auto) Neut % (Auto) Lymph % (Auto) [place] % (Auto) Eos % (Auto) Baso % (Auto) Lymph # (Auto) [place] # (Auto) Eos # (Auto) Baso # (Auto) Abs Immat Gran (auto) Absolute Neuts (auto) Absolute Nucleated RBC Nucleated RBC % (auto) Smear Tech's Comments Hold Purple Top VBG pH VBG pCO2 VBG pO2 VBG HCO3 VBG O2 Saturation VBG Base Excess Sodium Potassium Chloride Carbon Dioxide Anion Gap BUN Creatinine Estim Creat Clear Calc Estimated GFR POC Glucose 194 H Random Glucose Estimat Average Glucose Hemoglobin A1c % Osmolality Lactic Acid Calcium Magnesium Iron TIBC % Saturation Unsat Iron Binding Total Bilirubin AST ALT Alkaline Phosphatase Total Protein Albumin Triglycerides Cholesterol LDL Cholesterol, Calc HDL Cholesterol Lipase TSH Free T4 Urine Color Urine Appearance Urine pH Ur Specific Bernard Urine Protein Urine Glucose (UA) Urine Ketones Urine Blood Urine Nitrite Ur Leukocyte Esterase Urine RBC Urine WBC Ur Squamous Epith Cells Urine Bacteria Hyaline Casts Urine Osmolality Ur Random Sodium Urine Opiates Screen Ur Buprenorphine Scrn Ur Oxycodone Screen Urine Methadone Screen Urine Fentanyl Screen Ur Barbiturates Screen Carbamazepine Ur Phencyclidine Scrn Ur Amphetamines Screen U Benzodiazepines Scrn Urine Cocaine Screen U Marijuana (THC) Screen COVID-19 ([facility]) Negative COVID-19 Clin Com See Note Influenza Type A (AMANDA) Negative Influenza Type B (AMANDA) Negative Influenza A & B Note See Note TB Test (T-Spot) Com TB Test Nil Control TB Test Panel A TB Test Panel B TB Test Positive Cntrl 12/16/24 12/17/24 12/19/24 20:01 19:13 10:21 WBC RBC Hgb Hct MCV MCH MCHC RDW Plt Count MPV Immature Gran % (Auto) Neut % (Auto) Lymph % (Auto) [place] % (Auto) Eos % (Auto) Baso % (Auto) Lymph # (Auto) [place] # (Auto) Eos # (Auto) Baso # (Auto) Abs Immat Gran (auto) Absolute Neuts (auto) Absolute Nucleated RBC Nucleated RBC % (auto) Smear Tech's Comments Hold Purple Top VBG pH VBG pCO2 VBG pO2 VBG HCO3 VBG O2 Saturation VBG Base Excess Sodium Potassium Chloride Carbon Dioxide Anion Gap BUN Creatinine Estim Creat Clear Calc Estimated GFR POC Glucose 213 H 265 H 408 H* Random Glucose Estimat Average Glucose Hemoglobin A1c % Osmolality Lactic Acid Calcium Magnesium Iron TIBC % Saturation Unsat Iron Binding Total Bilirubin AST ALT Alkaline Phosphatase Total Protein Albumin Triglycerides Cholesterol LDL Cholesterol, Calc HDL Cholesterol Lipase TSH Free T4 Urine Color Urine Appearance Urine pH Ur Specific Bernard Urine Protein Urine Glucose (UA) Urine Ketones Urine Blood Urine Nitrite Ur Leukocyte Esterase Urine RBC Urine WBC Ur Squamous Epith Cells Urine Bacteria Hyaline Casts Urine Osmolality Ur Random Sodium Urine Opiates Screen Ur Buprenorphine Scrn Ur Oxycodone Screen Urine Methadone Screen Urine Fentanyl Screen Ur Barbiturates Screen Carbamazepine Ur Phencyclidine Scrn Ur Amphetamines Screen U Benzodiazepines Scrn Urine Cocaine Screen U Marijuana (THC) Screen COVID-19 ([facility]) COVID-19 Clin Com Influenza Type A (AMANDA) Influenza Type B (AMANDA) Influenza A & B Note TB Test (T-Spot) Com TB Test Nil Control TB Test Panel A TB Test Panel B TB Test Positive Cntrl 12/19/24 12/19/24 12/20/24 16:02 20:57 06:20 WBC RBC Hgb Hct MCV MCH MCHC RDW Plt Count MPV Immature Gran % (Auto) Neut % (Auto) Lymph % (Auto) [place] % (Auto) Eos % (Auto) Baso % (Auto) Lymph # (Auto) [place] # (Auto) Eos # (Auto) Baso # (Auto) Abs Immat Gran (auto) Absolute Neuts (auto) Absolute Nucleated RBC Nucleated RBC % (auto) Smear Tech's Comments Hold Purple Top VBG pH VBG pCO2 VBG pO2 VBG HCO3 VBG O2 Saturation VBG Base Excess Sodium Potassium Chloride Carbon Dioxide Anion Gap BUN Creatinine Estim Creat Clear Calc Estimated GFR POC Glucose 115 101 181 H Random Glucose Estimat Average Glucose Hemoglobin A1c % Osmolality Lactic Acid Calcium Magnesium Iron TIBC % Saturation Unsat Iron Binding Total Bilirubin AST ALT Alkaline Phosphatase Total Protein Albumin Triglycerides Cholesterol LDL Cholesterol, Calc HDL Cholesterol Lipase TSH Free T4 Urine Color Urine Appearance Urine pH Ur Specific Bernard Urine Protein Urine Glucose (UA) Urine Ketones Urine Blood Urine Nitrite Ur Leukocyte Esterase Urine RBC Urine WBC Ur Squamous Epith Cells Urine Bacteria Hyaline Casts Urine Osmolality Ur Random Sodium Urine Opiates Screen Ur Buprenorphine Scrn Ur Oxycodone Screen Urine Methadone Screen Urine Fentanyl Screen Ur Barbiturates Screen Carbamazepine Ur Phencyclidine Scrn Ur Amphetamines Screen U Benzodiazepines Scrn Urine Cocaine Screen U Marijuana (THC) Screen COVID-19 ([facility]) COVID-19 Clin Com Influenza Type A (AMANDA) Influenza Type B (AMANDA) Influenza A & B Note TB Test (T-Spot) Com TB Test Nil Control TB Test Panel A TB Test Panel B TB Test Positive [facility] 12/20/24 12/20/24 12/20/24 08:43 10:41 15:49 WBC RBC Hgb Hct MCV MCH MCHC RDW Plt Count MPV Immature Gran % (Auto) Neut % (Auto) Lymph % (Auto) [place] % (Auto) Eos % (Auto) Baso % (Auto) Lymph # (Auto) [place] # (Auto) Eos # (Auto) Baso # (Auto) Abs Immat Gran (auto) Absolute Neuts (auto) Absolute Nucleated RBC Nucleated RBC % (auto) Smear Tech's Comments Hold Purple Top VBG pH VBG pCO2 VBG pO2 VBG HCO3 VBG O2 Saturation VBG Base Excess Sodium 140 Potassium 5.2 H Chloride 107 Carbon Dioxide 25 Anion Gap 13 BUN 27 H Creatinine 1.08 Estim Creat Clear Calc 28.6 Estimated GFR 49 POC Glucose 223 H 177 H Random Glucose 266 H Estimat Average Glucose Hemoglobin A1c % Osmolality Lactic Acid Calcium 9.0 Magnesium Iron TIBC % Saturation Unsat Iron Binding Total Bilirubin 0.3 AST 66 H ALT 70 H Alkaline Phosphatase 60 Total Protein 6.6 Albumin 3.6 Triglycerides Cholesterol LDL Cholesterol, Calc HDL Cholesterol Lipase TSH Free T4 Urine Color Urine Appearance Urine pH Ur Specific Bernard Urine Protein Urine Glucose (UA) Urine Ketones Urine Blood Urine Nitrite Ur Leukocyte Esterase Urine RBC Urine WBC Ur Squamous Epith Cells Urine Bacteria Hyaline Casts Urine Osmolality Ur Random Sodium Urine Opiates Screen Ur Buprenorphine Scrn Ur Oxycodone Screen Urine Methadone Screen Urine Fentanyl Screen Ur Barbiturates Screen Carbamazepine Ur Phencyclidine Scrn Ur Amphetamines Screen U Benzodiazepines Scrn Urine Cocaine Screen U Marijuana (THC) Screen COVID-19 ([facility]) COVID-19 Clin Com Influenza Type A (AMANDA) Influenza Type B (AMANDA) Influenza A & B Note TB Test (T-Spot) Com TB Test Nil Control TB Test Panel A TB Test Panel B TB Test Positive [facility] 12/21/24 12/21/24 12/21/24 06:20 11:49 16:10 WBC RBC Hgb Hct MCV MCH MCHC RDW Plt Count MPV Immature Gran % (Auto) Neut % (Auto) Lymph % (Auto) [place] % (Auto) Eos % (Auto) Baso % (Auto) Lymph # (Auto) [place] # (Auto) Eos # (Auto) Baso # (Auto) Abs Immat Gran (auto) Absolute Neuts (auto) Absolute Nucleated RBC Nucleated RBC % (auto) Smear Tech's Comments Hold Purple Top VBG pH VBG pCO2 VBG pO2 VBG HCO3 VBG O2 Saturation VBG Base Excess Sodium Potassium Chloride Carbon Dioxide Anion Gap BUN Creatinine Estim Creat Clear Calc Estimated GFR POC Glucose 170 H 201 H 141 H Random Glucose Estimat Average Glucose Hemoglobin A1c % Osmolality Lactic Acid Calcium Magnesium Iron TIBC % Saturation Unsat Iron Binding Total Bilirubin AST ALT Alkaline Phosphatase Total Protein Albumin Triglycerides Cholesterol LDL Cholesterol, Calc HDL Cholesterol Lipase TSH Free T4 Urine Color Urine Appearance Urine pH Ur Specific Bernard Urine Protein Urine Glucose (UA) Urine Ketones Urine Blood Urine Nitrite Ur Leukocyte Esterase Urine RBC Urine WBC Ur Squamous Epith Cells Urine Bacteria Hyaline Casts Urine Osmolality Ur Random Sodium Urine Opiates Screen Ur Buprenorphine Scrn Ur Oxycodone Screen Urine Methadone Screen Urine Fentanyl Screen Ur Barbiturates Screen Carbamazepine Ur Phencyclidine Scrn Ur Amphetamines Screen U Benzodiazepines Scrn Urine Cocaine Screen U Marijuana (THC) Screen COVID-19 ([facility]ES[facility]) COVID-19 Clin Com Influenza Type A (AMANDA) Influenza Type B (AMANDA) Influenza A & B Note TB Test (T-Spot) Com TB Test Nil Control TB Test Panel A TB Test Panel B TB Test Positive Cntr 12/21/24 12/22/24 12/22/24 20:59 06:39 11:34 WBC RBC Hgb Hct MCV MCH MCHC RDW Plt Count MPV Immature Gran % (Auto) Neut % (Auto) Lymph % (Auto) [place] % (Auto) Eos % (Auto) Baso % (Auto) Lymph # (Auto) [place] # (Auto) Eos # (Auto) Baso # (Auto) Abs Immat Gran (auto) Absolute Neuts (auto) Absolute Nucleated RBC Nucleated RBC % (auto) Smear Tech's Comments Hold Purple Top VBG pH VBG pCO2 VBG pO2 VBG HCO3 VBG O2 Saturation VBG Base Excess Sodium Potassium Chloride Carbon Dioxide Anion Gap BUN Creatinine Estim Creat Clear Calc Estimated GFR POC Glucose 270 H 217 H 134 H Random Glucose Estimat Average Glucose Hemoglobin A1c % Osmolality Lactic Acid Calcium Magnesium Iron TIBC % Saturation Unsat Iron Binding Total Bilirubin AST ALT Alkaline Phosphatase Total Protein Albumin Triglycerides Cholesterol LDL Cholesterol, Calc HDL Cholesterol Lipase TSH Free T4 Urine Color Urine Appearance Urine pH Ur Specific Bernard Urine Protein Urine Glucose (UA) Urine Ketones Urine Blood Urine Nitrite Ur Leukocyte Esterase Urine RBC Urine WBC Ur Squamous Epith Cells Urine Bacteria Hyaline Casts Urine Osmolality Ur Random Sodium Urine Opiates Screen Ur Buprenorphine Scrn Ur Oxycodone Screen Urine Methadone Screen Urine Fentanyl Screen Ur Barbiturates Screen Carbamazepine Ur Phencyclidine Scrn Ur Amphetamines Screen U Benzodiazepines Scrn Urine Cocaine Screen U Marijuana (THC) Screen COVID-19 ([facility]) COVID-19 Clin Com Influenza Type A (AMANDA) Influenza Type B (AMANDA) Influenza A & B Note TB Test (T-Spot) Com TB Test Nil Control TB Test Panel A TB Test Panel B TB Test Positive Cnt 12/22/24 12/22/24 12/23/24 16:32 20:04 06:23 WBC RBC Hgb Hct MCV MCH MCHC RDW Plt Count MPV Immature Gran % (Auto) Neut % (Auto) Lymph % (Auto) [place] % (Auto) Eos % (Auto) Baso % (Auto) Lymph # (Auto) [place] # (Auto) Eos # (Auto) Baso # (Auto) Abs Immat Gran (auto) Absolute Neuts (auto) Absolute Nucleated RBC Nucleated RBC % (auto) Smear Tech's Comments Hold Purple Top VBG pH VBG pCO2 VBG pO2 VBG HCO3 VBG O2 Saturation VBG Base Excess Sodium Potassium Chloride Carbon Dioxide Anion Gap BUN Creatinine Estim Creat Clear Calc Estimated GFR POC Glucose 200 H 76 237 H Random Glucose Estimat Average Glucose Hemoglobin A1c % Osmolality Lactic Acid Calcium Magnesium Iron TIBC % Saturation Unsat Iron Binding Total Bilirubin AST ALT Alkaline Phosphatase Total Protein Albumin Triglycerides Cholesterol LDL Cholesterol, Calc HDL Cholesterol Lipase TSH Free T4 Urine Color Urine Appearance Urine pH Ur Specific Bernard Urine Protein Urine Glucose (UA) Urine Ketones Urine Blood Urine Nitrite Ur Leukocyte Esterase Urine RBC Urine WBC Ur Squamous Epith Cells Urine Bacteria Hyaline Casts Urine Osmolality Ur Random Sodium Urine Opiates Screen Ur Buprenorphine Scrn Ur Oxycodone Screen Urine Methadone Screen Urine Fentanyl Screen Ur Barbiturates Screen Carbamazepine Ur Phencyclidine Scrn Ur Amphetamines Screen U Benzodiazepines Scrn Urine Cocaine Screen U Marijuana (THC) Screen COVID-19 ([facility]ESA) COVID-19 Clin Com Influenza Type A (AMANDA) Influenza Type B (AMANDA) Influenza A & B Note TB Test (T-Spot) Com TB Test Nil Control TB Test Panel A TB Test Panel B TB Test Positive Cnt 12/23/24 12/23/2425 11:32 16:20 19:35 WBC RBC Hgb Hct MCV MCH MCHC RDW Plt Count MPV Immature Gran % (Auto) Neut % (Auto) Lymph % (Auto) [place] % (Auto) Eos % (Auto) Baso % (Auto) Lymph # (Auto) [place] # (Auto) Eos # (Auto) Baso # (Auto) Abs Immat Gran (auto) Absolute Neuts (auto) Absolute Nucleated RBC Nucleated RBC % (auto) Smear Tech's Comments Hold Purple Top VBG pH VBG pCO2 VBG pO2 VBG HCO3 VBG O2 Saturation VBG Base Excess Sodium Potassium Chloride Carbon Dioxide Anion Gap BUN Creatinine Estim Creat Clear Calc Estimated GFR POC Glucose 114 125 H 134 H Random Glucose Estimat Average Glucose Hemoglobin A1c % Osmolality Lactic Acid Calcium Magnesium Iron TIBC % Saturation Unsat Iron Binding Total Bilirubin AST ALT Alkaline Phosphatase Total Protein Albumin Triglycerides Cholesterol LDL Cholesterol, Calc HDL Cholesterol Lipase TSH Free T4 Urine Color Urine Appearance Urine pH Ur Specific Bernard Urine Protein Urine Glucose (UA) Urine Ketones Urine Blood Urine Nitrite Ur Leukocyte Esterase Urine RBC Urine WBC Ur Squamous Epith Cells Urine Bacteria Hyaline Casts Urine Osmolality Ur Random Sodium Urine Opiates Screen Ur Buprenorphine Scrn Ur Oxycodone Screen Urine Methadone Screen Urine Fentanyl Screen Ur Barbiturates Screen Carbamazepine Ur Phencyclidine Scrn Ur Amphetamines Screen U Benzodiazepines Scrn Urine Cocaine Screen U Marijuana (THC) Screen COVID-19 (TRESA) COVID-19 Clin Com Influenza Type A (AMANDA) Influenza Type B (AMANDA) Influenza A & B Note TB Test (T-Spot) Com TB Test Nil Control TB Test Panel A TB Test Panel B TB Test Positive Cnt 12/24/24 12/24/24 12/24/24 06:14 11:21 16:11 WBC RBC Hgb Hct MCV MCH MCHC RDW Plt Count MPV Immature Gran % (Auto) Neut % (Auto) Lymph % (Auto) [place] % (Auto) Eos % (Auto) Baso % (Auto) Lymph # (Auto) [place] # (Auto) Eos # (Auto) Baso # (Auto) Abs Immat Gran (auto) Absolute Neuts (auto) Absolute Nucleated RBC Nucleated RBC % (auto) Smear Tech's Comments Hold Purple Top VBG pH VBG pCO2 VBG pO2 VBG HCO3 VBG O2 Saturation VBG Base Excess Sodium Potassium Chloride Carbon Dioxide Anion Gap BUN Creatinine Estim Creat Clear Calc Estimated GFR POC Glucose 212 H 168 H 97 Random Glucose Estimat Average Glucose Hemoglobin A1c % Osmolality Lactic Acid Calcium Magnesium Iron TIBC % Saturation Unsat Iron Binding Total Bilirubin AST ALT Alkaline Phosphatase Total Protein Albumin Triglycerides Cholesterol LDL Cholesterol, Calc HDL Cholesterol Lipase TSH Free T4 Urine Color Urine Appearance Urine pH Ur Specific Bernard Urine Protein Urine Glucose (UA) Urine Ketones Urine Blood Urine Nitrite Ur Leukocyte Esterase Urine RBC Urine WBC Ur Squamous Epith Cells Urine Bacteria Hyaline Casts Urine Osmolality Ur Random Sodium Urine Opiates Screen Ur Buprenorphine Scrn Ur Oxycodone Screen Urine Methadone Screen Urine Fentanyl Screen Ur Barbiturates Screen Carbamazepine Ur Phencyclidine Scrn Ur Amphetamines Screen U Benzodiazepines Scrn Urine Cocaine Screen U Marijuana (THC) Screen COVID-19 (TRESA) COVID-19 Clin Com Influenza Type A (AMANDA) Influenza Type B (AMANDA) Influenza A & B Note TB Test (T-Spot) Com TB Test Nil Control TB Test Panel A TB Test Panel B TB Test Positive Cntrl 12/24/24 12/25/24 12/25/24 20:01 05:45 10:16 WBC RBC Hgb Hct MCV MCH MCHC RDW Plt Count MPV Immature Gran % (Auto) Neut % (Auto) Lymph % (Auto) [place] % (Auto) Eos % (Auto) Baso % (Auto) Lymph # (Auto) [place] # (Auto) Eos # (Auto) Baso # (Auto) Abs Immat Gran (auto) Absolute Neuts (auto) Absolute Nucleated RBC Nucleated RBC % (auto) Smear Tech's Comments Hold Purple Top VBG pH VBG pCO2 VBG pO2 VBG HCO3 VBG O2 Saturation VBG Base Excess Sodium Potassium Chloride Carbon Dioxide Anion Gap BUN Creatinine Estim Creat Clear Calc Estimated GFR POC Glucose 208 H 220 H 224 H Random Glucose Estimat Average Glucose Hemoglobin A1c % Osmolality Lactic Acid Calcium Magnesium Iron TIBC % Saturation Unsat Iron Binding Total Bilirubin AST ALT Alkaline Phosphatase Total Protein Albumin Triglycerides Cholesterol LDL Cholesterol, Calc HDL Cholesterol Lipase TSH Free T4 Urine Color Urine Appearance Urine pH Ur Specific Bernard Urine Protein Urine Glucose (UA) Urine Ketones Urine Blood Urine Nitrite Ur Leukocyte Esterase Urine RBC Urine WBC Ur Squamous Epith Cells Urine Bacteria Hyaline Casts Urine Osmolality Ur Random Sodium Urine Opiates Screen Ur Buprenorphine Scrn Ur Oxycodone Screen Urine Methadone Screen Urine Fentanyl Screen Ur Barbiturates Screen Carbamazepine Ur Phencyclidine Scrn Ur Amphetamines Screen U Benzodiazepines Scrn Urine Cocaine Screen U Marijuana (THC) Screen COVID-19 (TRESA) COVID-19 Clin Com Influenza Type A (AMANDA) Influenza Type B (AMANDA) Influenza A & B Note TB Test (T-Spot) Com TB Test Nil Control TB Test Panel A TB Test Panel B TB Test Positive [facility] 12/25/24 12/25/24 12/26/24 16:09 20:08 06:42 WBC RBC Hgb Hct MCV MCH MCHC RDW Plt Count MPV Immature Gran % (Auto) Neut % (Auto) Lymph % (Auto) [place] % (Auto) Eos % (Auto) Baso % (Auto) Lymph # (Auto) [place] # (Auto) Eos # (Auto) Baso # (Auto) Abs Immat Gran (auto) Absolute Neuts (auto) Absolute Nucleated RBC Nucleated RBC % (auto) Smear Tech's Comments Hold Purple Top VBG pH VBG pCO2 VBG pO2 VBG HCO3 VBG O2 Saturation VBG Base Excess Sodium Potassium Chloride Carbon Dioxide Anion Gap BUN Creatinine Estim Creat Clear Calc Estimated GFR POC Glucose 86 281 H 210 H Random Glucose Estimat Average Glucose Hemoglobin A1c % Osmolality Lactic Acid Calcium Magnesium Iron TIBC % Saturation Unsat Iron Binding Total Bilirubin AST ALT Alkaline Phosphatase Total Protein Albumin Triglycerides Cholesterol LDL Cholesterol, Calc HDL Cholesterol Lipase TSH Free T4 Urine Color Urine Appearance Urine pH Ur Specific Bernard Urine Protein Urine Glucose (UA) Urine Ketones Urine Blood Urine Nitrite Ur Leukocyte Esterase Urine RBC Urine WBC Ur Squamous Epith Cells Urine Bacteria Hyaline Casts Urine Osmolality Ur Random Sodium Urine Opiates Screen Ur Buprenorphine Scrn Ur Oxycodone Screen Urine Methadone Screen Urine Fentanyl Screen Ur Barbiturates Screen Carbamazepine Ur Phencyclidine Scrn Ur Amphetamines Screen U Benzodiazepines Scrn Urine Cocaine Screen U Marijuana (THC) Screen COVID-19 (TRESA) COVID-19 Clin Com Influenza Type A (AMANDA) Influenza Type B (AMANDA) Influenza A & B Note TB Test (T-Spot) Com TB Test Nil Control TB Test Panel A TB Test Panel B TB Test Positive [facility] 12/26/24 12/26/24 12/26/24 11:10 14:48 16:13 WBC RBC Hgb Hct MCV MCH MCHC RDW Plt Count MPV Immature Gran % (Auto) Neut % (Auto) Lymph % (Auto) [place] % (Auto) Eos % (Auto) Baso % (Auto) Lymph # (Auto) [place] # (Auto) Eos # (Auto) Baso # (Auto) Abs Immat Gran (auto) Absolute Neuts (auto) Absolute Nucleated RBC Nucleated RBC % (auto) Smear Tech's Comments Hold Purple Top VBG pH VBG pCO2 VBG pO2 VBG HCO3 VBG O2 Saturation VBG Base Excess Sodium Potassium Chloride Carbon Dioxide Anion Gap BUN Creatinine Estim Creat Clear Calc Estimated GFR POC Glucose 284 H 130 H 146 H Random Glucose Estimat Average Glucose Hemoglobin A1c % Osmolality Lactic Acid Calcium Magnesium Iron TIBC % Saturation Unsat Iron Binding Total Bilirubin AST ALT Alkaline Phosphatase Total Protein Albumin Triglycerides Cholesterol LDL Cholesterol, Calc HDL Cholesterol Lipase TSH Free T4 Urine Color Urine Appearance Urine pH Ur Specific Bernard Urine Protein Urine Glucose (UA) Urine Ketones Urine Blood Urine Nitrite Ur Leukocyte Esterase Urine RBC Urine WBC Ur Squamous Epith Cells Urine Bacteria Hyaline Casts Urine Osmolality Ur Random Sodium Urine Opiates Screen Ur Buprenorphine Scrn Ur Oxycodone Screen Urine Methadone Screen Urine Fentanyl Screen Ur Barbiturates Screen Carbamazepine Ur Phencyclidine Scrn Ur Amphetamines Screen U Benzodiazepines Scrn Urine Cocaine Screen U Marijuana (THC) Screen COVID-19 (TRESA) COVID-19 Clin Com Influenza Type A (AMANDA) Influenza Type B (AMANDA) Influenza A & B Note TB Test (T-Spot) Com TB Test Nil Control TB Test Panel A TB Test Panel B TB Test Positive [facility] 12/26/24 12/27/24 20:01 06:05 WBC RBC Hgb Hct MCV MCH MCHC RDW Plt Count MPV Immature Gran % (Auto) Neut % (Auto) Lymph % (Auto) [place] % (Auto) Eos % (Auto) Baso % (Auto) Lymph # (Auto) [place] # (Auto) Eos # (Auto) Baso # (Auto) Abs Immat Gran (auto) Absolute Neuts (auto) Absolute Nucleated RBC Nucleated RBC % (auto) Smear Tech's Comments Hold Purple Top VBG pH VBG pCO2 VBG pO2 VBG HCO3 VBG O2 Saturation VBG Base Excess Sodium Potassium Chloride Carbon Dioxide Anion Gap BUN Creatinine Estim Creat Clear Calc Estimated GFR POC Glucose 200 H 229 H Random Glucose Estimat Average Glucose Hemoglobin A1c % Osmolality Lactic Acid Calcium Magnesium Iron TIBC % Saturation Unsat Iron Binding Total Bilirubin AST ALT Alkaline Phosphatase Total Protein Albumin Triglycerides Cholesterol LDL Cholesterol, Calc HDL Cholesterol Lipase TSH Free T4 Urine Color Urine Appearance Urine pH Ur Specific [place] Urine Protein Urine Glucose (UA) Urine Ketones Urine Blood Urine Nitrite Ur Leukocyte Esterase Urine RBC Urine WBC Ur Squamous Epith Cells Urine Bacteria Hyaline Casts Urine Osmolality Ur Random Sodium Urine Opiates Screen Ur Buprenorphine Scrn Ur Oxycodone Screen Urine Methadone Screen Urine Fentanyl Screen Ur Barbiturates Screen Carbamazepine Ur Phencyclidine Scrn Ur Amphetamines Screen U Benzodiazepines Scrn Urine Cocaine Screen U Marijuana (THC) Screen COVID-19 (TRESA) COVID-19 Clin Com Influenza Type A (AMANDA) Influenza Type B (AMANDA) Influenza A & B Note TB Test (T-Spot) Com TB Test Nil Control TB Test Panel A TB Test Panel B TB Test Positive Cntrl Airway Mallampati Class: II TM Dist: <=3cm Neck ROM: Full Loose/Missing/Broken Teeth: Yes and Upper Heart: ok Lungs: ok Assessment and Plan Assessment Anesthesia Assessment: Anesthesia Plan Discussed and Chart Reviewed Final Anesthetic Review Family History of Problems with Anesthesia: No History of Problems with Anesthesia: No NPO: Yes ASA Class: III Final Preanesthetic Review: No Changes in Pt Med Stat, Meds/Allgs Chart Reviewed, Consent Obtained/Reviewed and Anes Risks/Benef Reviewed Patient Risk: Intermediate Procedure Risk: Intermediate Anesthetic Plan Anesthetic Plan: GA and Agree w/ Assess. and Plan Disposition: Standard PACU
--- NOTE | 2024-12-27 07:52 | HO.ECTPROC ---
ECT Procedure Note Diagnosis/Treatment Date of Service: 12/27/24 Diagnosis: Major Depressive Disorder Previous ECT Date: 12/25/24 Current Treatment Number: 3 Treatment: Series Interval Clinical Notes: mood remains improved Time: Total time managing care of this patient today __35__ minutes. ECT Settings Device: THYMATRON DGx Electrode Placement: Rt temporal/ Lt frontal Program/Pulse Width: 0.50 Energy Percent: 100 Seizure Duration By EEG (in seconds): 12 Medications Administration General Anesthetic: Etomidate (12) Muscle Relaxant: Succinylcholine (60) Ancillary Medications Anti-emetics: Zofran - Pre ECT Miscillaneous Medications: Flumazenil (0.1) Airway Management Airway Management: Bag Mask Ventilation Treatment Recommendations Electrode Placement: Rt temporal/ Lt frontal Program/Pulse Width: 0.50 Energy Percent: 100 Notes: short seizure again. will decrease klonopin dosing to 0.125 mg per dose and DC gabapentin. increase flumazenil to 0.2 mg pior to next ECT Pt Tolerated Procedure w/o Issue: Yes
[2024-12-27] MEDS: Metoclopramide HCl Oral Soln 10 MG/10 ML SOLUTION 5 MG PO ×3 (09:06→16:27)
[2024-12-27] MEDS: buPROPion HCl XL 300 MG TAB.ER.24H PO (10:54)
[2024-12-27] MEDS: Fluticasone/Vilanterol 100/25 BLST.W.DEV 1 PUFF INHALE (10:55)
--- NOTE | 2024-12-27 11:04 | HO.PSYCHPN ---
Subjective Subjective Date of Service: 12/27/24 Reason For Visit: SI with plan to OD on medications, increased anxie Interim History: reports mood improved. ECT completed. informed of plan to DC gabapentin and decrease klonopin dosing. no questions or complaints. Mental Status Exam Mental Status Exam Narrative: She is alert, pleasant and cooperative. Speech is normal. Moderate eye contact. Affect is appropriate and contained. anxiety and depression present but improved. No acute signs of psychosis. Cognitively impaired. Judgment is impaired Diagnostics Vital Signs (24Hr): Vital Signs - 24 hr 12/26/24 20:00 12/27/24 05:17 12/27/24 05:18 Temperature 36.3 F L 98.1 F 98.1 F Pulse Rate 90 91 91 Respiratory Rate 16 16 16 Blood Pressure 118/56 L 145/66 H 145/66 H Pulse Oximetry 96 98 98 Oxygen Delivery Method Room Air Room Air 12/27/24 06:35 12/27/24 08:03 12/27/24 08:05 Temperature 98.4 F 98.3 F Pulse Rate 92 109 H 103 H Respiratory Rate 20 24 H 18 Blood Pressure 146/75 H 184/92 H 151/84 H Pulse Oximetry 97 96 95 Oxygen Delivery Method Room Air Room Air Room Air 12/27/24 08:10 12/27/24 08:15 12/27/24 08:30 Temperature Pulse Rate 104 H 103 H 103 H Respiratory Rate 18 18 18 Blood Pressure 160/87 H 160/87 H 150/75 H Pulse Oximetry 95 95 95 Oxygen Delivery Method Room Air Room Air Room Air 12/27/24 09:03 Temperature 98.1 F Pulse Rate 95 Respiratory Rate 14 Blood Pressure 147/72 H Pulse Oximetry 96 Oxygen Delivery Method Room Air BMI result Body Mass Index 23.3 Labs 11/02/24 20:14 12/20/24 08:43 Labs: Laboratory Results - last 48 hr 12/25/24 12/25/24 12/26/24 16:09 20:08 06:42 POC Glucose 86 281 H 210 H 12/26/24 12/26/24 12/26/24 11:10 14:48 16:13 POC Glucose 284 H 130 H 146 H 12/26/24 12/27/24 20:01 06:05 POC Glucose 200 H 229 H Imaging Radiology Impressions: ITS Impressions Hip/Pelvis X-Ray 11/05/24 11:00 IMPRESSION: Unremarkable examination of the left hip. Electronically signed by: Sam Saini MD 11/05/2024 11:13 AM EDT RP KUB X-Ray 11/06/24 09:20 IMPRESSION: Large amount of stool throughout the colon. Electronically signed by: Sam Saini MD 11/06/2024 09:34 AM EDT RP Head CT 11/08/24 14:58 IMPRESSION: Left frontal soft tissue swelling. No acute intracranial abnormality. Electronically signed by: Sam Saini MD 11/08/2024 03:18 PM EDT RP Medications Medications Current Medications Acetaminophen (Acetaminophen 325 Mg Tablet) 650 mg PO Q6H PRN PRN Reason: Headache/Pain, Scale 1-10 Last Admin: 12/26/24 08:08 Dose: 650 mg Al Hydroxide/Mg Hydroxide (Magnesium Hydrox/Alum Hydrox 30 Ml Oral.Susp) 30 ml PO Q6H PRN PRN Reason: Heartburn/Nausea Last Admin: 12/17/24 06:56 Dose: 30 ml Albuterol Sulfate (Albuterol Sulfate (0.083%) 2.5 Mg/3 Ml Vial.Neb) 2.5 mg INHALE ONCE PRN PRN Reason: Shortness of Breath/Wheezing Last Admin: 12/16/24 07:11 Dose: 2.5 mg Albuterol Sulfate (Albuterol Sulfate 90 Mcg 8 Gm Inhaler) 4 puff INHALE Q4H PRN PRN Reason: Shortness Of Breath Or Wheezin Amlodipine Besylate (Amlodipine Besylate 2.5 Mg Tablet) 2.5 mg PO DAILY RICHARD; Protocol Last Admin: 12/27/24 10:54 Dose: 2.5 mg Atorvastatin Calcium (Atorvastatin Calcium 20 Mg Tablet) 20 mg PO DAILY RICHARD Last Admin: 12/27/24 10:55 Dose: 20 mg Bisacodyl (Bisacodyl 10 Mg Supp.Rect) 10 mg DE BEDTIME PRN PRN Reason: Constipation Last Admin: 11/04/24 20:37 Dose: 10 mg Bupropion HCl (Bupropion Hcl Xl 300 Mg Tab.Er.24h) 300 mg PO DAILY RICHARD Last Admin: 12/27/24 10:54 Dose: 300 mg Buspirone HCl (Buspirone Hcl 10 Mg Tablet) 20 mg PO TID [facility] Last Admin: 12/27/24 10:53 Dose: 20 mg Calcium Carbonate (Calcium Carbonate 750 Mg Tab.Chew) 750 mg PO Q4H PRN PRN Reason: Heartburn Last Admin: 11/30/24 21:34 Dose: 750 mg Clonazepam (Clonazepam Odt 0.125 Mg Tab.Rapdis) 0.125 mg PO BID PRN PRN Reason: severe anxiety Dicyclomine HCl (Dicyclomine Hcl 10 Mg Capsule) 10 mg PO Q4H PRN PRN Reason: abdominal cramping Last Admin: 12/17/24 13:55 Dose: 10 mg Docusate Sodium (Docusate Sodium 100 Mg Capsule) 100 mg PO BID [facility] Last Admin: 12/27/24 10:53 Dose: 100 mg Duloxetine HCl (Duloxetine Hcl 60 Mg Capsule.Dr) 60 mg PO DAILY [facility] Last Admin: 12/27/24 10:55 Dose: 60 mg Fluticasone/Vilanterol (Fluticasone/Vilanterol 100/25 Blst.W.Dev) 1 puff INHALE RDAILY [facility] Last Admin: 12/27/24 10:55 Dose: 1 puff Glipizide (Glipizide Xl 2.5 Mg Tab.Er.24) 2.5 mg PO DAILY [facility] Last Admin: 12/27/24 10:53 Dose: 2.5 mg Guaifenesin (Guaifenesin La 600 Mg Tab.Er.12h) 1,200 mg PO BID PRN PRN Reason: Cough Last Admin: 12/16/24 14:35 Dose: 1,200 mg Insulin Human Lispro (Insulin Lispro 100 Unit/Ml 3 Ml Vial) 5 unit SUBCUT QIDACHS [facility]; Protocol Last Admin: 12/27/24 10:55 Dose: 5 unit Lisinopril (Lisinopril 2.5 Mg Tablet) 2.5 mg PO DAILY [facility]; Protocol Last Admin: 12/27/24 10:54 Dose: 2.5 mg Magnesium Hydroxide (Milk Of Magnesia 30 Ml Oral.Susp) 30 ml PO DAILY PRN PRN Reason: Constipation Last Admin: 11/04/24 16:49 Dose: 30 ml Metoclopramide HCl (Metoclopramide Hcl Oral Soln 10 Mg/10 Ml Solution) 5 mg PO TIDAC [facility] Last Admin: 12/27/24 09:06 Dose: 5 mg Mirtazapine (Mirtazapine 30 Mg Tablet) 30 mg PO BEDTIME [facility] Last Admin: 12/26/24 20:40 Dose: 30 mg Omeprazole (Omeprazole 20 Mg Capsule.Dr) 20 mg PO BID@0630,1630 [facility] Last Admin: 12/27/24 09:06 Dose: 20 mg Ondansetron HCl (Ondansetron Odt 4 Mg Tab.Rapdis) 4 mg TRANSLINGU Q4H PRN PRN Reason: Nausea and Vomiting Last Admin: 12/17/24 11:23 Dose: 4 mg Polyethylene Glycol (Polyethylene Glycol 3350 17 Gm Powd.Pack) 17 gm PO BID [facility] Last Admin: 12/27/24 10:51 Dose: 17 gm Pramipexole Dihydrochloride (Pramipexole Di-Hcl 0.125 Mg Tablet) 0.125 mg PO DAILY [facility] Last Admin: 12/27/24 10:54 Dose: 0.125 mg Pyridoxine HCl (Pyridoxine Hcl (Vitamin B6) 50 Mg Tablet) 50 mg PO DAILY [facility] Last Admin: 12/27/24 10:55 Dose: 50 mg Ropinirole HCl (Ropinirole Hcl 2 Mg Tablet) 2 mg PO DAILY@1700 [facility] Last Admin: 12/26/24 16:21 Dose: 2 mg Simethicone (Simethicone 80 Mg Tab.Chew) 80 mg PO QIDWMHS [facility] Last Admin: 12/27/24 10:54 Dose: 80 mg Trazodone HCl (Trazodone Hcl 50 Mg Tablet) 50 mg PO BEDTIME MRX1 PRN PRN Reason: Insomnia Last Admin: 12/22/24 21:20 Dose: 50 mg Allergies Allergies Allergy/AdvReac Type Severity Reaction Status Date / Time ampicillin Allergy Rash Verified 10/20/24 19:28 morphine Allergy Rash Verified 10/20/24 19:28 Penicillins Allergy Rash Verified 10/20/24 19:28 pork derived (porcine) Allergy Vomiting Verified 11/10/24 17:49 Assessment & Plan Assessment & Plan (1) MDD (major depressive disorder), recurrent episode, moderate: Status: Acute Code(s): F33.1 - Major depressive disorder, recurrent, moderate (2) 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 Barreto is a 78 year-old woman with hx of MDD who was assessed by N at request of her son who called 911 after pt had reported suicidal ideation with plan to OD. In the ED, pt adamantly denied suicidal ideation but reports feeling increasingly more depressed due to involuntary, ongoing movement of lower extremities. She attributes her depressed mood and increase anxious mood to RLS. She has also been treated as tardive akathisia, note that she was previously prescribed abilify. It is noted that she may have iron deficiency due to normocytic anemia which can exacerbate RLS. It is unclear which medications for hyperkinetic movements of the legs are actually helpful and furthermore it is not easily to differentiate whether it is tardive akathisia or RLS. She has been on psychotropic medications that are known to cause akathisia such as abilify. She reports subjective sense of restlessness. Involuntary movement seems to be throughout the day. We will have to do trial of medications that target akathisia such as propanolol and ativan versus medications such as pramipexol for RLS (note that in RLS there is an initial relief with dopamine agonist but can make it worse over time). In addition, will try iron deficiency as it is an underlying cause and exacerbating factor in RLS. PLAN 11/14 continue tx. will monitor before making substantial changes every day. 11/15 continue tx. pt somatically preoccupied. 11/16: Continue current management and treatment plan. 11/17: continue current management and treatment plan. 11/18 start buspar 10mg po TID for SHEILA. continue all other meds. 11/19 increase buspar 20mg po TID 11/20 appears calmer, less somatically preoccupied. continue current medications. 11/21 sodium stable. continues to present as less dysphoric, calmer. reports of dizziness (VS not hotn nor orthostatic), ?vertigo, will try low dose of meclizine otherwise will consult hospitalist for further management. 8.2- pt more focused on gi issues- and anxiety/forgetfulness- continue to monitor somatic complaints- dc qid poc 11/25 will lowered ropinirole as it may increasing anxiety, noted that buspar was lowered, do not think this medication was causing fogginess as pt appeared much calmer since we added buspar. She was started on low dose clonazepam. 11/26 continue tx. received one time dose xanax, but reported feeling overly sedated (although did not appear sedated) 11/27 somatically p8/: Continue current regimen and plansreoccupied, no change in medications. 11/29 continue tx. 11/30: Continue current regimen and plans 12/01: Continue current plans and regimen 12/02 increase buspar 20mg po TID. 12/03: reports depression not improving, c/o feeling low energy and motivation, saying she needs a scrap picker. start wellbutrin XL 150 daily tomorrow for depression. also c/o anxiety-provoking and nocturnally loud peer. schedule klonopin 0.25 QHS for insomnia. otherwise continue current mgmt. awaiting placement. 12/04: slept well last night, started wellbutrin this morning without incident. continue current mgmt. will be discharging to [facility]. 12/05: slept well. c/o anxiety at 3-330 in the afternoon. pt to ask for klonopin PRN at 2-230. trend anxiety, T/C DC of wellbutrin if anxiety seems reliably increased since starting it. dispo next week likely. 12/06: anxious. schedule klonopin 0.25 mg Qdaily at 1430 per pt request. otherwise continue current mgmt. 12/07: anxious and depressed. c/o insomnia. will give wellbutrin a few more days to see if insomnia subsides and mood improves. per staf, stable and uneventful presentation. 12/08: depressed. agreeable to increase wellbutrin to 300 mg as of tomorrow. otherwise continue current mgmt. sleeping well. 12/09: started wellbutrin 300 today. c/o URI Sx, start guaifenesin. otherwise continue current mgmt. 12/10: coughin much eves/NOC per staff. pt c/o not happy, cough, and poor sleep. continue mucinex and mental health Tx plan otherwise. 12/11/24: Patient appeared to slept for 8 hours, was medication compliant but refused the MiraLax. Denies side effects. She is observed watching TV in common area. Reported that she feel anxious and depressed. She is worry about when she is leaving as she is going to stay by herself. I am depressed . Self reports that she did not sleep well last night as roommate waking her up at night telling her that she saw dogs. She reports normal stomach pain. She would hope to see the GI doctor after discharge. She reported that she will be discharged on 12/17 but not sure the name of the facility or where it is located. Denies safety concerns, denies hallucinations. No coughing observed this morning. 12/12: c/o unremitting depression, saying she does not want to live like this. interested in ECT, educated re the procedure. obtain risk strat and EKG, discuss in rounds tomorrow morning. otherwise continue current mgmt. 12/13: continues to push for ECT. seen by hospitalist, no relative contraindications to the procedure. case d/w patient's daughter chantelle as well, who avers that pt has been in this state for a long time, it's only getting worse, and medications have not been helpful. johanna supports this trial on the wishes of her mother and MD's recommendation. ECT ordered, will get pt on the schedule as soon as possible. 12/14: Cough-productive, O2 sats are lower , CXR positive. Seen by hospitalist. Antibiotics initiated, R/O pneumonia 12/15: Pt unable to tolerate doxycycline. Hospitalist will change to Ceftin. 12/16: ECT held today due to januvia and respiratory virus. mood slightly improved. plan for ECT. 12/17: COVID and flu NEG. c/o nausea, exacerbation of chronic condition, h/o gastroparesis. holding januvia. start reglan for gastroparesis. continue current mgmt otherwise. NPO past MN for ECT tomorrow. 12/18: awaiting med clearance for ECT. planning for ECT monday. otherwise continue current mgmt. glucose noted to be elevated since holding januvia the past several days. 12/19 continue current medications. pt hopefull will have ECT tomorrow. NPO from midnight. 12/20 continue tx. Had ECT #1 no complications noted or reported. 12/21:Continue ECT. 12/22: Increase Klonopin PRN to BID. Otherwise continue current management and treatment plan. 12/23: continue current management and treatment plan. 12/24 continue tx. ECT tomorrow, NPO after midnight. 12/25 continue tx. 12/26: ECT #3 completed today. pleasant, feeling improved. Sz duration longer than prior but remains suboptimal. will DC gabapentin and decrease PRN klonopin to 0.125 mg per dose. next ECT monday. continue current mgmt otherwise. Reason for continued inpatient stay Substantial Risk for: inability to function and rapid decompensation Time Spent With Patient Time: Total time managing care of this patient today _35___ minutes.
[2024-12-27 11:30] LABS: Glucose, Whole Blood 393 mg/dL (60-115)
[2024-12-27] MEDS: clonazePAM ODT 0.125 MG TAB.RAPDIS PO (11:45)
[2024-12-27 15:55] LABS: Glucose, Whole Blood 54 mg/dL (60-115)
[2024-12-27 15:55] LABS: Glucose, Whole Blood 109 mg/dL (60-115)
--- NOTE | 2024-12-27 15:57 | PM.EVENT ---
Event Note Date of Service: 12/27/24 Event Note: Patient noted to have a blood sugar of 54, she was given snacks and juice and blood sugar was 109. Patient currently receiving 5 units of insulin q.i.d., will change to regular sliding scale Time Spent With Patient Time: Total time managing care of this patient today ____ minutes.
[2024-12-27 16:42] LABS: Glucose, Whole Blood 199 mg/dL (60-115)
[2024-12-27 20:12] LABS: Glucose, Whole Blood 281 mg/dL (60-115)
[2024-12-28 07:17] LABS: Glucose, Whole Blood 263 mg/dL (60-115)
[2024-12-28 08:00] VITALS: BP 154/70; PULSE 92; RESP 16; TEMP 36.1; O2SAT 95
[2024-12-28 08:20] VITALS: BP 152/74
[2024-12-28] MEDS: buPROPion HCl XL 300 MG TAB.ER.24H PO (08:20)
[2024-12-28] MEDS: Fluticasone/Vilanterol 100/25 BLST.W.DEV 1 PUFF INHALE (08:21)
[2024-12-28] MEDS: Metoclopramide HCl Oral Soln 10 MG/10 ML SOLUTION 5 MG PO ×3 (08:21→16:16)
[2024-12-28 11:04] LABS: Glucose, Whole Blood 195 mg/dL (60-115)
[2024-12-28] MEDS: clonazePAM ODT 0.125 MG TAB.RAPDIS PO (11:08)
--- NOTE | 2024-12-28 11:13 | P.PNPSI_ITS ---
Subjective Subjective Date of Service: 12/28/24 Reason For Visit: SI with plan to OD on medications, increased anxie Interim History: Met with patient; discussed with team; reviewed chart Reviewed vitals and patient mildly hypertensive Patient says she is all right and no complaints other than restless leg/akathisia which she says is bothering her. Shop Supervisor agreed to order extra ropinrile 1mg daily prn Mental Status Exam Mental Status Exam Narrative: Pt is alert and oriented; behavior is cooperative, friendly and calm; patient is not in distress; dressed in casual attire with adequate hygiene and grooming; mood is described as all right and affect congruent; eye contact appropriate; Speech is normal rate, volume and prosody and not pressured; akathisia present; thought process is goal directed; Thought content is on tx; otherwise pertinent to relevant topics and without any delusional content, paranoid ideations or grandiosity; denies any SI/HI. Denies AVH and there is no evidence of perceptual disturbance. Patients insight and judgment possibly baseline? Diagnostics Vital Signs (24Hr): Vital Signs - 24 hr 12/27/24 20:00 12/28/24 08:20 12/28/24 08:20 Temperature 97.6 F Pulse Rate 96 Respiratory Rate 18 Blood Pressure 129/63 152/74 H 152/74 H Pulse Oximetry 97 Oxygen Delivery Method Room Air BMI result Body Mass Index 23.3 Labs 11/02/24 20:14 12/20/24 08:43 Labs: Laboratory Results - last 48 hr 12/26/24 12/26/24 12/26/24 11:10 14:48 16:13 POC Glucose 284 H 130 H 146 H 12/26/24 12/27/24 12/27/24 20:01 06:05 11:24 POC Glucose 200 H 229 H 393 H* 12/27/24 12/27/24 12/27/24 15:38 15:51 16:38 POC Glucose 54 L* 109 199 H 12/27/24 12/28/24 12/28/24 20:04 07:13 11:00 POC Glucose 281 H 263 H 195 H Imaging Radiology Impressions: ITS Impressions Hip/Pelvis X-Ray 11/05/24 11:00 IMPRESSION: Unremarkable examination of the left hip. Electronically signed by: Sam Saini MD 11/05/2024 11:13 AM EDT RP KUB X-Ray 11/06/24 09:20 IMPRESSION: Large amount of stool throughout the colon. Electronically signed by: Sam Saini MD 11/06/2024 09:34 AM EDT RP Head CT 11/08/24 14:58 IMPRESSION: Left frontal soft tissue swelling. No acute intracranial abnormality. Electronically signed by: Sam Saini MD 11/08/2024 03:18 PM EDT RP Medications Medications Current Medications Acetaminophen (Acetaminophen 325 Mg Tablet) 650 mg PO Q6H PRN PRN Reason: Headache/Pain, Scale 1-10 Last Admin: 12/28/24 08:19 Dose: 650 mg Al Hydroxide/Mg Hydroxide (Magnesium Hydrox/Alum Hydrox 30 Ml Oral.Susp) 30 ml PO Q6H PRN PRN Reason: Heartburn/Nausea Last Admin: 12/17/24 06:56 Dose: 30 ml Albuterol Sulfate (Albuterol Sulfate (0.083%) 2.5 Mg/3 Ml Vial.Neb) 2.5 mg INHALE ONCE PRN PRN Reason: Shortness of Breath/Wheezing Last Admin: 12/16/24 07:11 Dose: 2.5 mg Albuterol Sulfate (Albuterol Sulfate 90 Mcg 8 Gm Inhaler) 4 puff INHALE Q4H PRN PRN Reason: Shortness Of Breath Or Wheezin Amlodipine Besylate (Amlodipine Besylate 2.5 Mg Tablet) 2.5 mg PO DAILY [facility]; Protocol Last Admin: 12/28/24 08:20 Dose: 2.5 mg Atorvastatin Calcium (Atorvastatin Calcium 20 Mg Tablet) 20 mg PO DAILY [facility] Last Admin: 12/28/24 08:20 Dose: 20 mg Bisacodyl (Bisacodyl 10 Mg Supp.Rect) 10 mg SD BEDTIME PRN PRN Reason: Constipation Last Admin: 11/04/24 20:37 Dose: 10 mg Bupropion HCl (Bupropion Hcl Xl 300 Mg Tab.Er.24h) 300 mg PO DAILY [facility] Last Admin: 12/28/24 08:20 Dose: 300 mg Buspirone HCl (Buspirone Hcl 10 Mg Tablet) 20 mg PO TID [facility] Last Admin: 12/28/24 08:20 Dose: 20 mg Calcium Carbonate (Calcium Carbonate 750 Mg Tab.Chew) 750 mg PO Q4H PRN PRN Reason: Heartburn Last Admin: 11/30/24 21:34 Dose: 750 mg Clonazepam (Clonazepam Odt 0.125 Mg Tab.Rapdis) 0.125 mg PO BID PRN PRN Reason: severe anxiety Last Admin: 12/28/24 11:08 Dose: 0.125 mg Dicyclomine HCl (Dicyclomine Hcl 10 Mg Capsule) 10 mg PO Q4H PRN PRN Reason: abdominal cramping Last Admin: 12/17/24 13:55 Dose: 10 mg Docusate Sodium (Docusate Sodium 100 Mg Capsule) 100 mg PO BID [facility] Last Admin: 12/28/24 08:20 Dose: 100 mg Duloxetine HCl (Duloxetine Hcl 60 Mg Capsule.Dr) 60 mg PO DAILY [facility] Last Admin: 12/28/24 08:20 Dose: 60 mg Fluticasone/Vilanterol (Fluticasone/Vilanterol 100/25 Blst.W.Dev) 1 puff INHALE RDAILY [facility] Last Admin: 12/28/24 08:21 Dose: 1 puff Glipizide (Glipizide Xl 2.5 Mg Tab.Er.24) 2.5 mg PO DAILY [facility] Last Admin: 12/28/24 08:20 Dose: 2.5 mg Guaifenesin (Guaifenesin La 600 Mg Tab.Er.12h) 1,200 mg PO BID PRN PRN Reason: Cough Last Admin: 12/16/24 14:35 Dose: 1,200 mg Insulin Human Lispro (Insulin Lispro 100 Unit/Ml 3 Ml Vial) 0 unit SUBCUT TIDAC [facility]; Protocol Last Admin: 12/28/24 11:10 Dose: 2 unit Lisinopril (Lisinopril 2.5 Mg Tablet) 2.5 mg PO DAILY [facility]; Protocol Last Admin: 12/28/24 08:20 Dose: 2.5 mg Magnesium Hydroxide (Milk Of Magnesia 30 Ml Oral.Susp) 30 ml PO DAILY PRN PRN Reason: Constipation Last Admin: 11/04/24 16:49 Dose: 30 ml Metoclopramide HCl (Metoclopramide Hcl Oral Soln 10 Mg/10 Ml Solution) 5 mg PO TIDAC [facility] Last Admin: 12/28/24 11:09 Dose: 5 mg Mirtazapine (Mirtazapine 30 Mg Tablet) 30 mg PO BEDTIME [facility] Last Admin: 12/27/24 20:07 Dose: 30 mg Omeprazole (Omeprazole 20 Mg Capsule.Dr) 20 mg PO BID@0630,1630 [facility] Last Admin: 12/28/24 05:38 Dose: 20 mg Ondansetron HCl (Ondansetron Odt 4 Mg Tab.Rapdis) 4 mg TRANSLINGU Q4H PRN PRN Reason: Nausea and Vomiting Last Admin: 12/17/24 11:23 Dose: 4 mg Polyethylene Glycol (Polyethylene Glycol 3350 17 Gm Powd.Pack) 17 gm PO BID [facility] Last Admin: 12/27/24 20:08 Dose: Not Given Pramipexole Dihydrochloride (Pramipexole Di-Hcl 0.125 Mg Tablet) 0.125 mg PO DAILY [facility] Last Admin: 12/28/24 08:20 Dose: 0.125 mg Pyridoxine HCl (Pyridoxine Hcl (Vitamin B6) 50 Mg Tablet) 50 mg PO DAILY [facility] Last Admin: 12/28/24 08:20 Dose: 50 mg Ropinirole HCl (Ropinirole Hcl 2 Mg Tablet) 2 mg PO DAILY@1700 [facility] Last Admin: 12/27/24 16:28 Dose: 2 mg Simethicone (Simethicone 80 Mg Tab.Chew) 80 mg PO QIDWMHS [facility] Last Admin: 12/28/24 11:10 Dose: 80 mg Trazodone HCl (Trazodone Hcl 50 Mg Tablet) 50 mg PO BEDTIME MRX1 PRN PRN Reason: Insomnia Last Admin: 12/27/24 20:07 Dose: 50 mg Allergies Allergies Allergy/AdvReac Type Severity Reaction Status Date / Time ampicillin Allergy Rash Verified 10/20/24 19:28 morphine Allergy Rash Verified 10/20/24 19:28 Penicillins Allergy Rash Verified 10/20/24 19:28 pork derived (porcine) Allergy Vomiting Verified 11/10/24 17:49 Assessment & Plan Assessment & Plan (1) MDD (major depressive disorder), recurrent episode, moderate: Status: Acute Code(s): F33.1 - Major depressive disorder, recurrent, moderate (2) 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 Barreto is a 78 year-old woman with hx of MDD who was assessed by N at request of her son who called 911 after pt had reported suicidal ideation with plan to OD. In the ED, pt adamantly denied suicidal ideation but reports feeling increasingly more depressed due to involuntary, ongoing movement of lower extremities. She attributes her depressed mood and increase anxious mood to RLS. She has also been treated as tardive akathisia, note that she was previously prescribed abilify. It is noted that she may have iron deficiency due to normocytic anemia which can exacerbate RLS. It is unclear which medications for hyperkinetic movements of the legs are actually helpful and furthermore it is not easily to differentiate whether it is tardive akathisia or RLS. She has been on psychotropic medications that are known to cause akathisia such as abilify. She reports subjective sense of restlessness. Involuntary movement seems to be throughout the day. We will have to do trial of medications that target akathisia such as propanolol and ativan versus medications such as pramipexol for RLS (note that in RLS there is an initial relief with dopamine agonist but can make it worse over time). In addition, will try iron deficiency as it is an underlying cause and exacerbating factor in RLS. PLAN 11/14 continue tx. will monitor before making substantial changes every day. 11/15 continue tx. pt somatically preoccupied. 11/16: Continue current management and treatment plan. 11/17: continue current management and treatment plan. 11/18 start buspar 10mg po TID for SHEILA. continue all other meds. 11/19 increase buspar 20mg po TID 11/20 appears calmer, less somatically preoccupied. continue current medications. 11/21 sodium stable. continues to present as less dysphoric, calmer. reports of dizziness (VS not hotn nor orthostatic), ?vertigo, will try low dose of meclizine otherwise will consult hospitalist for further management. 8.2- pt more focused on gi issues- and anxiety/forgetfulness- continue to monitor somatic complaints- dc qid poc 11/25 will lowered ropinirole as it may increasing anxiety, noted that buspar was lowered, do not think this medication was causing fogginess as pt appeared much calmer since we added buspar. She was started on low dose clonazepam. 11/26 continue tx. received one time dose xanax, but reported feeling overly sedated (although did not appear sedated) 11/27 somatically p8/: Continue current regimen and plansreoccupied, no change in medications. 11/29 continue tx. 11/30: Continue current regimen and plans 12/01: Continue current plans and regimen 12/02 increase buspar 20mg po TID. 12/03: reports depression not improving, c/o feeling low energy and motivation, saying she needs a pick up driver. start wellbutrin XL 150 daily tomorrow for depression. also c/o anxiety-provoking and nocturnally loud peer. schedule klonopin 0.25 QHS for insomnia. otherwise continue current mgmt. awaiting placement. 12/04: slept well last night, started wellbutrin this morning without incident. continue current mgmt. will be discharging to [facility]. 12/05: slept well. c/o anxiety at 3-330 in the afternoon. pt to ask for klonopin PRN at 2-230. trend anxiety, T/C DC of wellbutrin if anxiety seems reliably increased since starting it. dispo next week likely. 12/06: anxious. schedule klonopin 0.25 mg Qdaily at 1430 per pt request. otherwise continue current mgmt. 12/07: anxious and depressed. c/o insomnia. will give wellbutrin a few more days to see if insomnia subsides and mood improves. per staf, stable and uneventful presentation. 12/08: depressed. agreeable to increase wellbutrin to 300 mg as of tomorrow. otherwise continue current mgmt. sleeping well. 12/09: started wellbutrin 300 today. c/o URI Sx, start guaifenesin. otherwise continue current mgmt. 12/10: coughin much eves/NOC per staff. pt c/o not happy, cough, and poor sleep. continue mucinex and mental health Tx plan otherwise. 12/11/24: Patient appeared to slept for 8 hours, was medication compliant but refused the MiraLax. Denies side effects. She is observed watching TV in common area. Reported that she feel anxious and depressed. She is worry about when she is leaving as she is going to stay by herself. I am depressed . Self reports that she did not sleep well last night as roommate waking her up at night telling her that she saw dogs. She reports normal stomach pain. She would hope to see the GI doctor after discharge. She reported that she will be discharged on 12/17 but not sure the name of the facility or where it is located. Denies safety concerns, denies hallucinations. No coughing observed this morning. 12/12: c/o unremitting depression, saying she does not want to live like this. interested in ECT, educated re the procedure. obtain risk strat and EKG, discuss in rounds tomorrow morning. otherwise continue current mgmt. 12/13: continues to push for ECT. seen by hospitalist, no relative contraindications to the procedure. case d/w patient's daughter chantelle as well, who avers that pt has been in this state for a long time, it's only getting worse, and medications have not been helpful. johanna supports this trial on the wishes of her mother and MD's recommendation. ECT ordered, will get pt on the schedule as soon as possible. 12/14: Cough-productive, O2 sats are lower , CXR positive. Seen by hospitalist. Antibiotics initiated, R/O pneumonia 12/15: Pt unable to tolerate doxycycline. Hospitalist will change to Ceftin. 12/16: ECT held today due to januvia and respiratory virus. mood slightly improved. plan for weds ECT. 12/17: COVID and flu NEG. c/o nausea, exacerbation of chronic condition, h/o gastroparesis. holding januvia. start reglan for gastroparesis. continue current mgmt otherwise. NPO past MN for ECT tomorrow. 12/18: awaiting med clearance for ECT. planning for ECT monday. otherwise continue current mgmt. glucose noted to be elevated since holding januvia the past several days. 12/19 continue current medications. pt hopefull will have ECT tomorrow. NPO from midnight. 12/20 continue tx. Had ECT #1 no complications noted or reported. 12/21:Continue ECT. 12/22: Increase Klonopin PRN to BID. Otherwise continue current management and treatment plan. 12/23: continue current management and treatment plan. 12/24 continue tx. ECT tomorrow, NPO after midnight. 12/25 continue tx. 12/26: ECT #3 completed today. pleasant, feeling improved. Sz duration longer than prior but remains suboptimal. will DC gabapentin and decrease PRN klonopin to 0.125 mg per dose. next ECT monday. continue current mgmt otherwise. 12/28 Patient says she is all right and no complaints other than restless leg/akathisia which she says is bothering her. Discussed ECT and patient says she wants to continue getting ECT which she thinks is helpful and is why she wants to remain inpatient. Shop Supervisor agreed to: -order extra ropinrile 1mg daily prn Patient educated on: diagnosis, medication risk/benefits and ECT Informed Consent: understands Reason for continued inpatient stay Substantial Risk for: rapid decompensation Time Spent With Patient Time: Total time managing care of this patient today ____ minutes.
[2024-12-28 16:17] LABS: Glucose, Whole Blood 111 mg/dL (60-115)
[2024-12-28 20:00] VITALS: BP 142/76; PULSE 86; RESP 18; TEMP 36.1; O2SAT 99
[2024-12-28 20:32] LABS: Glucose, Whole Blood 134 mg/dL (60-115)
[2024-12-29 06:57] LABS: Glucose, Whole Blood 257 mg/dL (60-115)
[2024-12-29 08:00] VITALS: BP 162/86; PULSE 93; RESP 16; TEMP 36.6; O2SAT 96
[2024-12-29] MEDS: Fluticasone/Vilanterol 100/25 BLST.W.DEV 1 PUFF INHALE (08:06)
[2024-12-29] MEDS: Metoclopramide HCl Oral Soln 10 MG/10 ML SOLUTION 5 MG PO (08:06)
[2024-12-29] MEDS: buPROPion HCl XL 300 MG TAB.ER.24H PO (08:06)
[2024-12-29 11:00] VITALS: BP 138/82; PULSE 95
[2024-12-29 11:05] VITALS: BP 148/88; PULSE 95
[2024-12-29 11:24] LABS: Glucose, Whole Blood 149 mg/dL (60-115)
[2024-12-29 13:15] VITALS: BP 138/82; PULSE 72
[2024-12-29] MEDS: Metoclopramide HCl Oral Soln 10 MG/10 ML SOLUTION 3 MG PO (16:12)
[2024-12-29 16:27] LABS: Glucose, Whole Blood 211 mg/dL (60-115)
--- NOTE | 2024-12-29 17:13 | HO.PSYCHPN ---
Subjective Subjective Date of Service: 12/29/24 Reason For Visit: SI with plan to OD on medications, increased anxie Interim History: Met with patient; discussed with team Patient says she is so-so and Continues to have akathisia; patient benefitted somewhat from propranolol, which is preferable to increasing ropinirole (BP these mildly hypertensive; regular heart rate). Review of chart and patient was started on metoclopramide for diabetic gastroparesis. Discussed with patient who agrees to lowering metoclopramide; will increase propranolol and DC p.r.n. ropinirole Mental Status Exam Mental Status Exam Narrative: Pt is alert and oriented; behavior is cooperative, friendly and calm; patient is not in distress; dressed in casual attire with adequate hygiene and grooming; mood is described as so-so and affect congruent; eye contact appropriate; Speech is normal rate, volume and prosody and not pressured; akathisia present; thought process is goal directed; Thought content is on tx; otherwise pertinent to relevant topics and without any delusional content, paranoid ideations or grandiosity; denies any SI/HI. Denies AVH and there is no evidence of perceptual disturbance. Patients insight and judgment possibly baseline? Diagnostics Vital Signs (24Hr): Vital Signs - 24 hr 12/28/24 20:00 12/29/24 08:00 12/29/24 11:00 Temperature 97 F 97.9 F Pulse Rate 86 93 95 Respiratory Rate 18 16 Blood Pressure 142/76 H 162/86 H 138/82 Pulse Oximetry 99 96 Oxygen Delivery Method Room Air Room Air 12/29/24 11:05 12/29/24 13:15 Temperature Pulse Rate 95 72 Respiratory Rate Blood Pressure 148/88 H 138/82 Pulse Oximetry Oxygen Delivery Method BMI result Body Mass Index 23.3 Labs 11/02/24 20:14 12/20/24 08:43 Labs: Laboratory Results - last 48 hr 12/27/24 12/28/24 12/28/24 20:04 07:13 11:00 POC Glucose 281 H 263 H 195 H 12/28/24 12/28/24 12/29/24 16:12 20:21 06:47 POC Glucose 111 134 H 257 H 12/29/24 12/29/24 11:20 16:23 POC Glucose 149 H 211 H Imaging Radiology Impressions: ITS Impressions Hip/Pelvis X-Ray 11/05/24 11:00 IMPRESSION: Unremarkable examination of the left hip. Electronically signed by: Sam Saini MD 11/05/2024 11:13 AM EDT RP KUB X-Ray 11/06/24 09:20 IMPRESSION: Large amount of stool throughout the colon. Electronically signed by: Sam Saini MD 11/06/2024 09:34 AM EDT RP Head CT 11/08/24 14:58 IMPRESSION: Left frontal soft tissue swelling. No acute intracranial abnormality. Electronically signed by: Sam Saini MD 11/08/2024 03:18 PM EDT RP Medications Medications Current Medications Acetaminophen (Acetaminophen 325 Mg Tablet) 650 mg PO Q6H PRN PRN Reason: Headache/Pain, Scale 1-10 Last Admin: 12/29/24 17:08 Dose: 650 mg Al Hydroxide/Mg Hydroxide (Magnesium Hydrox/Alum Hydrox 30 Ml Oral.Susp) 30 ml PO Q6H PRN PRN Reason: Heartburn/Nausea Last Admin: 12/17/24 06:56 Dose: 30 ml Albuterol Sulfate (Albuterol Sulfate (0.083%) 2.5 Mg/3 Ml Vial.Neb) 2.5 mg INHALE ONCE PRN PRN Reason: Shortness of Breath/Wheezing Last Admin: 12/16/24 07:11 Dose: 2.5 mg Albuterol Sulfate (Albuterol Sulfate 90 Mcg 8 Gm Inhaler) 4 puff INHALE Q4H PRN PRN Reason: Shortness Of Breath Or Wheezin Amlodipine Besylate (Amlodipine Besylate 2.5 Mg Tablet) 2.5 mg PO DAILY [facility]; Protocol Last Admin: 12/29/24 08:06 Dose: 2.5 mg Atorvastatin Calcium (Atorvastatin Calcium 20 Mg Tablet) 20 mg PO DAILY [facility]ARD Last Admin: 12/29/24 08:07 Dose: 20 mg Bisacodyl (Bisacodyl 10 Mg Supp.Rect) 10 mg TX BEDTIME PRN PRN Reason: Constipation Last Admin: 11/04/24 20:37 Dose: 10 mg Bupropion HCl (Bupropion Hcl Xl 300 Mg Tab.Er.24h) 300 mg PO DAILY RICHARD Last Admin: 12/29/24 08:06 Dose: 300 mg Buspirone HCl (Buspirone Hcl 10 Mg Tablet) 20 mg PO TID [facility] Last Admin: 12/29/24 16:13 Dose: 20 mg Calcium Carbonate (Calcium Carbonate 750 Mg Tab.Chew) 750 mg PO Q4H PRN PRN Reason: Heartburn Last Admin: 11/30/24 21:34 Dose: 750 mg Clonazepam (Clonazepam Odt 0.125 Mg Tab.Rapdis) 0.125 mg PO BID PRN PRN Reason: severe anxiety Last Admin: 12/28/24 11:08 Dose: 0.125 mg Dicyclomine HCl (Dicyclomine Hcl 10 Mg Capsule) 10 mg PO Q4H PRN PRN Reason: abdominal cramping Last Admin: 12/17/24 13:55 Dose: 10 mg Docusate Sodium (Docusate Sodium 100 Mg Capsule) 100 mg PO BID [facility] Last Admin: 12/29/24 08:07 Dose: 100 mg Duloxetine HCl (Duloxetine Hcl 60 Mg Capsule.Dr) 60 mg PO DAILY [facility] Last Admin: 12/29/24 08:06 Dose: 60 mg Fluticasone/Vilanterol (Fluticasone/Vilanterol 100/25 Blst.W.Dev) 1 puff INHALE RDAILY [facility] Last Admin: 12/29/24 08:06 Dose: 1 puff Glipizide (Glipizide Xl 2.5 Mg Tab.Er.24) 2.5 mg PO DAILY [facility] Last Admin: 12/29/24 08:07 Dose: 2.5 mg Guaifenesin (Guaifenesin La 600 Mg Tab.Er.12h) 1,200 mg PO BID PRN PRN Reason: Cough Last Admin: 12/16/24 14:35 Dose: 1,200 mg Insulin Human Lispro (Insulin Lispro 100 Unit/Ml 3 Ml Vial) 0 unit SUBCUT TIDAC [facility]; Protocol Last Admin: 12/29/24 16:37 Dose: 4 unit Lisinopril (Lisinopril 2.5 Mg Tablet) 2.5 mg PO DAILY [facility]; Protocol Last Admin: 12/29/24 08:07 Dose: 2.5 mg Magnesium Hydroxide (Milk Of Magnesia 30 Ml Oral.Susp) 30 ml PO DAILY PRN PRN Reason: Constipation Last Admin: 11/04/24 16:49 Dose: 30 ml Metoclopramide HCl (Metoclopramide Hcl Oral Soln 10 Mg/10 Ml Solution) 3 mg PO TIDAC [facility] Last Admin: 12/29/24 16:12 Dose: 3 mg Mirtazapine (Mirtazapine 30 Mg Tablet) 30 mg PO BEDTIME [facility] Last Admin: 12/28/24 20:22 Dose: 30 mg Omeprazole (Omeprazole 20 Mg Capsule.Dr) 20 mg PO BID@0630,1630 [facility] Last Admin: 12/29/24 16:13 Dose: 20 mg Ondansetron HCl (Ondansetron Odt 4 Mg Tab.Rapdis) 4 mg TRANSLINGU Q4H PRN PRN Reason: Nausea and Vomiting Last Admin: 12/17/24 11:23 Dose: 4 mg Polyethylene Glycol (Polyethylene Glycol 3350 17 Gm Powd.Pack) 17 gm PO BID [facility] Last Admin: 12/29/24 08:08 Dose: Not Given Pramipexole Dihydrochloride (Pramipexole Di-Hcl 0.125 Mg Tablet) 0.125 mg PO DAILY [facility] Last Admin: 12/29/24 08:07 Dose: 0.125 mg Propranolol HCl (Propranolol Hcl 10 Mg Tablet) 10 mg PO TID PRN; Protocol PRN Reason: akathesia Pyridoxine HCl (Pyridoxine Hcl (Vitamin B6) 50 Mg Tablet) 50 mg PO DAILY [facility] Last Admin: 12/29/24 08:07 Dose: 50 mg Ropinirole HCl (Ropinirole Hcl 2 Mg Tablet) 2 mg PO DAILY@1700 [facility] Last Admin: 12/29/24 16:12 Dose: 2 mg Simethicone (Simethicone 80 Mg Tab.Chew) 80 mg PO QIDWMHS [facility] Last Admin: 12/29/24 16:12 Dose: 80 mg Trazodone HCl (Trazodone Hcl 50 Mg Tablet) 50 mg PO BEDTIME MRX1 PRN PRN Reason: Insomnia Last Admin: 12/28/24 20:22 Dose: 50 mg Allergies Allergies Allergy/AdvReac Type Severity Reaction Status Date / Time ampicillin Allergy Rash Verified 10/20/24 19:28 morphine Allergy Rash Verified 10/20/24 19:28 Penicillins Allergy Rash Verified 10/20/24 19:28 pork derived (porcine) Allergy Vomiting Verified 11/10/24 17:49 Assessment & Plan Assessment & Plan (1) MDD (major depressive disorder), recurrent episode, moderate: Status: Acute Code(s): F33.1 - Major depressive disorder, recurrent, moderate (2) 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 Barreto is a 78 year-old woman with hx of MDD who was assessed by N at request of her son who called 911 after pt had reported suicidal ideation with plan to OD. In the ED, pt adamantly denied suicidal ideation but reports feeling increasingly more depressed due to involuntary, ongoing movement of lower extremities. She attributes her depressed mood and increase anxious mood to RLS. She has also been treated as tardive akathisia, note that she was previously prescribed abilify. It is noted that she may have iron deficiency due to normocytic anemia which can exacerbate RLS. It is unclear which medications for hyperkinetic movements of the legs are actually helpful and furthermore it is not easily to differentiate whether it is tardive akathisia or RLS. She has been on psychotropic medications that are known to cause akathisia such as abilify. She reports subjective sense of restlessness. Involuntary movement seems to be throughout the day. We will have to do trial of medications that target akathisia such as propanolol and ativan versus medications such as pramipexol for RLS (note that in RLS there is an initial relief with dopamine agonist but can make it worse over time). In addition, will try iron deficiency as it is an underlying cause and exacerbating factor in RLS. PLAN 11/14 continue tx. will monitor before making substantial changes every day. 11/15 continue tx. pt somatically preoccupied. 11/16: Continue current management and treatment plan. 11/17: continue current management and treatment plan. 11/18 start buspar 10mg po TID for SHEILA. continue all other meds. 11/19 increase buspar 20mg po TID 11/20 appears calmer, less somatically preoccupied. continue current medications. 11/21 sodium stable. continues to present as less dysphoric, calmer. reports of dizziness (VS not hotn nor orthostatic), ?vertigo, will try low dose of meclizine otherwise will consult hospitalist for further management. 8.2- pt more focused on gi issues- and anxiety/forgetfulness- continue to monitor somatic complaints- dc qid poc 11/25 will lowered ropinirole as it may increasing anxiety, noted that buspar was lowered, do not think this medication was causing fogginess as pt appeared much calmer since we added buspar. She was started on low dose clonazepam. 11/26 continue tx. received one time dose xanax, but reported feeling overly sedated (although did not appear sedated) 11/27 somatically p8/: Continue current regimen and plansreoccupied, no change in medications. 11/29 continue tx. 11/30: Continue current regimen and plans 12/01: Continue current plans and regimen 12/02 increase buspar 20mg po TID. 12/03: reports depression not improving, c/o feeling low energy and motivation, saying she needs a miner pick. start wellbutrin XL 150 daily tomorrow for depression. also c/o anxiety-provoking and nocturnally loud peer. schedule klonopin 0.25 QHS for insomnia. otherwise continue current mgmt. awaiting placement. 12/04: slept well last night, started wellbutrin this morning without incident. continue current mgmt. will be discharging to [facility]. 12/05: slept well. c/o anxiety at 3-330 in the afternoon. pt to ask for klonopin PRN at 2-230. trend anxiety, T/C DC of wellbutrin if anxiety seems reliably increased since starting it. dispo next week likely. 12/06: anxious. schedule klonopin 0.25 mg Qdaily at 1430 per pt request. otherwise continue current mgmt. 12/07: anxious and depressed. c/o insomnia. will give wellbutrin a few more days to see if insomnia subsides and mood improves. per staf, stable and uneventful presentation. 12/08: depressed. agreeable to increase wellbutrin to 300 mg as of tomorrow. otherwise continue current mgmt. sleeping well. 12/09: started wellbutrin 300 today. c/o URI Sx, start guaifenesin. otherwise continue current mgmt. 12/10: coughin much eves/NOC per staff. pt c/o not happy, cough, and poor sleep. continue mucinex and mental health Tx plan otherwise. 12/11/24: Patient appeared to slept for 8 hours, was medication compliant but refused the MiraLax. Denies side effects. She is observed watching TV in common area. Reported that she feel anxious and depressed. She is worry about when she is leaving as she is going to stay by herself. I am depressed . Self reports that she did not sleep well last night as roommate waking her up at night telling her that she saw dogs. She reports normal stomach pain. She would hope to see the GI doctor after discharge. She reported that she will be discharged on 12/17 but not sure the name of the facility or where it is located. Denies safety concerns, denies hallucinations. No coughing observed this morning. 12/12: c/o unremitting depression, saying she does not want to live like this. interested in ECT, educated re the procedure. obtain risk strat and EKG, discuss in rounds tomorrow morning. otherwise continue current mgmt. 12/13: continues to push for ECT. seen by hospitalist, no relative contraindications to the procedure. case d/w patient's daughter chantelle as well, who avers that pt has been in this state for a long time, it's only getting worse, and medications have not been helpful. johanna supports this trial on the wishes of her mother and MD's recommendation. ECT ordered, will get pt on the schedule as soon as possible. 12/14: Cough-productive, O2 sats are lower , CXR positive. Seen by hospitalist. Antibiotics initiated, R/O pneumonia 12/15: Pt unable to tolerate doxycycline. Hospitalist will change to Ceftin. 12/16: ECT held today due to januvia and respiratory virus. mood slightly improved. plan for ECT. 12/17: COVID and flu NEG. c/o nausea, exacerbation of chronic condition, h/o gastroparesis. holding januvia. start reglan for gastroparesis. continue current mgmt otherwise. NPO past MN for ECT tomorrow. 12/18: awaiting med clearance for ECT. planning for ECT monday. otherwise continue current mgmt. glucose noted to be elevated since holding januvia the past several days. 12/19 continue current medications. pt hopefull will have ECT tomorrow. NPO from midnight. 12/20 continue tx. Had ECT #1 no complications noted or reported. 12/21:Continue ECT. 12/22: Increase Klonopin PRN to BID. Otherwise continue current management and treatment plan. 12/23: continue current management and treatment plan. 12/24 continue tx. ECT tomorrow, NPO after midnight. 12/25 continue tx. 12/26: ECT #3 completed today. pleasant, feeling improved. Sz duration longer than prior but remains suboptimal. will DC gabapentin and decrease PRN klonopin to 0.125 mg per dose. next ECT monday. continue current mgmt otherwise. 12/28 Patient says she is all right and no complaints other than restless leg/akathisia which she says is bothering her. Discussed ECT and patient says she wants to continue getting ECT which she thinks is helpful and is why she wants to remain inpatient. Resourcing Consultant agreed to: -order extra ropinrile 1mg daily prn 12/29Patient says she is so-so and Continues to have akathisia; patient benefitted somewhat from propranolol, which is preferable to increasing ropinirole (BP these mildly hypertensive; regular heart rate). Review of chart and patient was started on metoclopramide for diabetic gastroparesis. Discussed with patient who agrees to lowering metoclopramide; will increase propranolol and DC p.r.n. ropinirole -lower metoclopramide to 3 mg t.i.d. a.c.; (no N/V or constipation) -increase to propranolol 10 mg t.i.d. p.r.n. for restless leg -DC extra p.r.n. ropinirole Patient educated on: diagnosis and medication risk/benefits Informed Consent: understands Reason for continued inpatient stay Substantial Risk for: rapid decompensation Time Spent With Patient Time: Total time managing care of this patient today ____ minutes.
[2024-12-29 20:00] VITALS: BP 148/70; PULSE 72; RESP 17; TEMP 36.4; O2SAT 96
[2024-12-30] VITALS (8 sets, daily range): BP systolic 112–156; BP diastolic 64–91; PULSE 67–93; RESP 16–24; TEMP 36.4–37.1; O2SAT 93–97
[2024-12-30 06:21] LABS: Glucose, Whole Blood 180 mg/dL (60-115)
--- NOTE | 2024-12-30 06:43 | HO.ANESPROP2 ---
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 (Acute) Hyponatremia (Acute) Fall (Acute) Constipation (Acute) Forehead laceration (Acute) Diabetes (Acute) RLS (restless legs syndrome) (Acute) MDD (major depressive disorder), recurrent episode, moderate (Acute) Gastroparesis (Acute) Anxiety (Acute) Past Medical History Medical History Tension headache Peripheral neuropathy Akathisia Cerebral microvascular disease RLS (restless legs syndrome) Migraines Diabetes Hypertension Anxiety Functional capacity: independent ambulation Family History Family history of problems with anesthesia: No Surgical History History of Problems with Anesthesia: No Social History Social History Household Members: None Housing: House Do you presently have visiting nurse or other home services: Yes Patient Tobacco Use Status: Never used Tobacco Currently Displaying Signs/Symptoms of Drug Intoxication Withdrawal: No Have you been hit, kicked, punched, or otherwise hurt by someone within the past year? If so, by whom?: No Do you feel safe in your current relationship?: No Current Relationship Is there a partner from a previous relationship who is making you feel unsafe now?: No Are you made to feel afraid or neglected: No Spiritual Healthcare Practices: meditation and breathing Advance Directives: No Advance Directives Information Provided: No Do you have thoughts of harming others: None Do you have a plan to hurt others: No Plan Recently lost weight without trying: No Eating poorly because of decreased appetite: No Nutrition Risks: No Nutritional Risk Patient : No : No Poor oral hygiene: No service: No Sexual orientation: Straight/Heterosexual Meds Allergies Allergy/AdvReac Type Severity Reaction Status Date / Time ampicillin Allergy Rash Verified 10/20/24 19:28 morphine Allergy Rash Verified 10/20/24 19:28 Penicillins Allergy Rash Verified 10/20/24 19:28 pork derived (porcine) Allergy Vomiting Verified 11/10/24 17:49 Active Medications: Current Medications Acetaminophen (Acetaminophen 325 Mg Tablet) 650 mg PO Q6H PRN PRN Reason: Headache/Pain, Scale 1-10 Last Admin: 12/29/24 17:08 Dose: 650 mg Al Hydroxide/Mg Hydroxide (Magnesium Hydrox/Alum Hydrox 30 Ml Oral.Susp) 30 ml PO Q6H PRN PRN Reason: Heartburn/Nausea Last Admin: 12/17/24 06:56 Dose: 30 ml Albuterol Sulfate (Albuterol Sulfate (0.083%) 2.5 Mg/3 Ml Vial.Neb) 2.5 mg INHALE ONCE PRN PRN Reason: Shortness of Breath/Wheezing Last Admin: 12/16/24 07:11 Dose: 2.5 mg Albuterol Sulfate (Albuterol Sulfate 90 Mcg 8 Gm Inhaler) 4 puff INHALE Q4H PRN PRN Reason: Shortness Of Breath Or Wheezin Amlodipine Besylate (Amlodipine Besylate 2.5 Mg Tablet) 2.5 mg PO DAILY [facility]; Protocol Last Admin: 12/29/24 08:06 Dose: 2.5 mg Atorvastatin Calcium (Atorvastatin Calcium 20 Mg Tablet) 20 mg PO DAILY [facility] Last Admin: 12/29/24 08:07 Dose: 20 mg Bisacodyl (Bisacodyl 10 Mg Supp.Rect) 10 mg MO BEDTIME PRN PRN Reason: Constipation Last Admin: 11/04/24 20:37 Dose: 10 mg Bupropion HCl (Bupropion Hcl Xl 300 Mg Tab.Er.24h) 300 mg PO DAILY [facility] Last Admin: 12/29/24 08:06 Dose: 300 mg Buspirone HCl (Buspirone Hcl 10 Mg Tablet) 20 mg PO TID [facility] Last Admin: 12/29/24 20:42 Dose: 20 mg Calcium Carbonate (Calcium Carbonate 750 Mg Tab.Chew) 750 mg PO Q4H PRN PRN Reason: Heartburn Last Admin: 11/30/24 21:34 Dose: 750 mg Clonazepam (Clonazepam Odt 0.125 Mg Tab.Rapdis) 0.125 mg PO BID PRN PRN Reason: severe anxiety Last Admin: 12/28/24 11:08 Dose: 0.125 mg Dicyclomine HCl (Dicyclomine Hcl 10 Mg Capsule) 10 mg PO Q4H PRN PRN Reason: abdominal cramping Last Admin: 12/17/24 13:55 Dose: 10 mg Docusate Sodium (Docusate Sodium 100 Mg Capsule) 100 mg PO BID [facility] Last Admin: 12/29/24 20:42 Dose: 100 mg Duloxetine HCl (Duloxetine Hcl 60 Mg Capsule.Dr) 60 mg PO DAILY [facility] Last Admin: 12/29/24 08:06 Dose: 60 mg Fluticasone/Vilanterol (Fluticasone/Vilanterol 100/25 Blst.W.Dev) 1 puff INHALE RDAILY [facility] Last Admin: 12/29/24 08:06 Dose: 1 puff Glipizide (Glipizide Xl 2.5 Mg Tab.Er.24) 2.5 mg PO DAILY [facility] Last Admin: 12/29/24 08:07 Dose: 2.5 mg Guaifenesin (Guaifenesin La 600 Mg Tab.Er.12h) 1,200 mg PO BID PRN PRN Reason: Cough Last Admin: 12/16/24 14:35 Dose: 1,200 mg Insulin Human Lispro (Insulin Lispro 100 Unit/Ml 3 Ml Vial) 0 unit SUBCUT TIDAC [facility]; Protocol Last Admin: 12/29/24 16:37 Dose: 4 unit Lisinopril (Lisinopril 2.5 Mg Tablet) 2.5 mg PO DAILY [facility]; Protocol Last Admin: 12/29/24 08:07 Dose: 2.5 mg Magnesium Hydroxide (Milk Of Magnesia 30 Ml Oral.Susp) 30 ml PO DAILY PRN PRN Reason: Constipation Last Admin: 11/04/24 16:49 Dose: 30 ml Metoclopramide HCl (Metoclopramide Hcl Oral Soln 10 Mg/10 Ml Solution) 3 mg PO TIDAC [facility] Last Admin: 12/29/24 16:12 Dose: 3 mg Mirtazapine (Mirtazapine 30 Mg Tablet) 30 mg PO BEDTIME [facility] Last Admin: 12/29/24 20:42 Dose: 30 mg Omeprazole (Omeprazole 20 Mg Capsule.Dr) 20 mg PO BID@0630,1630 [facility] Last Admin: 12/29/24 16:13 Dose: 20 mg Ondansetron HCl (Ondansetron Odt 4 Mg Tab.Rapdis) 4 mg TRANSLINGU Q4H PRN PRN Reason: Nausea and Vomiting Last Admin: 12/17/24 11:23 Dose: 4 mg Polyethylene Glycol (Polyethylene Glycol 3350 17 Gm Powd.Pack) 17 gm PO BID [facility] Last Admin: 12/29/24 20:44 Dose: Not Given Pramipexole Dihydrochloride (Pramipexole Di-Hcl 0.125 Mg Tablet) 0.125 mg PO DAILY [facility] Last Admin: 12/29/24 08:07 Dose: 0.125 mg Propranolol HCl (Propranolol Hcl 10 Mg Tablet) 10 mg PO TID PRN; Protocol PRN Reason: akathesia Pyridoxine HCl (Pyridoxine Hcl (Vitamin B6) 50 Mg Tablet) 50 mg PO DAILY [facility] Last Admin: 12/29/24 08:07 Dose: 50 mg Ropinirole HCl (Ropinirole Hcl 2 Mg Tablet) 2 mg PO DAILY@1700 [facility] Last Admin: 12/29/24 16:12 Dose: 2 mg Simethicone (Simethicone 80 Mg Tab.Chew) 80 mg PO QIDWMHS [facility] Last Admin: 12/29/24 20:42 Dose: 80 mg Trazodone HCl (Trazodone Hcl 50 Mg Tablet) 50 mg PO BEDTIME MRX1 PRN PRN Reason: Insomnia Last Admin: 12/28/24 20:22 Dose: 50 mg Home Medications ?Medication ?Instructions ?Recorded ?Confirmed ?Last Taken ?Type atorvastatin 20 mg tablet 20 mg PO DAILY 04/01/23 10/21/24 03/31/23 21:00 History ondansetron HCl 4 mg tablet 4 mg PO Q8H PRN nausea 04/01/23 10/21/24 03/31/23 21:00 History pantoprazole 40 mg tablet,delayed 40 mg PO BID@0630,1630 04/01/23 10/21/24 03/31/23 21:00 History release sitagliptin phosphate 100 mg 100 mg PO DAILY 04/01/23 10/21/24 03/31/23 21:00 History tablet (Januvia) albuterol sulfate 90 mcg/actuation 2 puff inhalation Q4-6H PRN 10/21/24 10/21/24 Unknown History aerosol inhaler Shortness Of Breath Or Wheezing amlodipine 2.5 mg tablet 2.5 mg PO DAILY 10/21/24 10/21/24 Unknown History duloxetine 20 mg capsule,delayed 40 mg PO DAILY 10/21/24 10/21/24 Unknown History release fluticasone furoate 100 1 ea inhalation DAILY 10/21/24 10/21/24 Unknown History mcg-vilanterol 25 mcg/dose inhalation powder (Breo Ellipta) gabapentin 100 mg capsule 100 mg PO TID 10/21/24 10/21/24 Unknown History gabapentin 600 mg tablet 600 mg PO BEDTIME 10/21/24 10/21/24 Unknown History glipizide 2.5 mg tablet, extended 2.5 mg PO DAILY 10/21/24 10/21/24 Unknown History release 24 hr lamotrigine 100 mg tablet 100 mg PO DAILY 10/21/24 10/21/24 Unknown History lisinopril 20 mg tablet 20 mg PO DAILY 10/21/24 10/21/24 Unknown History lorazepam 0.5 mg tablet 0.25 mg PO BID 10/21/24 10/21/24 Unknown History mirtazapine 45 mg tablet 45 mg PO BEDTIME 10/21/24 10/21/24 Unknown History olanzapine 2.5 mg tablet 2.5 mg PO BEDTIME 10/21/24 10/21/24 Unknown History pramipexole 0.25 mg tablet 0.25 mg PO BID 10/21/24 10/21/24 Unknown History propranolol 20 mg tablet 20 mg PO DAILY 10/21/24 10/21/24 Unknown History Exam Height,Weight and Vital Signs: Height 4 ft 10 in Weight 111 lb 6 oz Last Vital Signs Temp 97.6 F 12/30/24 06:28 Pulse 88 12/30/24 06:28 Resp 16 12/30/24 06:28 BP 144/81 H 12/30/24 06:28 Pulse Ox 95 12/30/24 06:28 O2 Del Method Room Air 12/30/24 06:28 O2 Flow Rate 3 12/25/24 09:09 Pertinent Lab Results Pertinent Lab Results: Laboratory Tests 10/20/24 10/20/24 10/22/24 19:59 21:45 07:23 WBC 7.6 RBC 3.65 L Hgb 10.8 L Hct 31.3 L MCV 85.8 MCH 29.6 MCHC 34.5 RDW 13.6 Plt Count 213 MPV 8.7 L Immature Gran % (Auto) 0.3 Neut % (Auto) 58.4 Lymph % (Auto) 29.8 [place] % (Auto) 9.9 Eos % (Auto) 1.1 Baso % (Auto) 0.5 Lymph # (Auto) 2.3 [place] # (Auto) 0.8 Eos # (Auto) 0.1 Baso # (Auto) 0.0 Abs Immat Gran (auto) 0.02 Absolute Neuts (auto) 4.4 Absolute Nucleated RBC 0.000 Nucleated RBC % (auto) 0.0 Smear Tech's Comments Hold Purple Top VBG pH VBG pCO2 VBG pO2 VBG HCO3 VBG O2 Saturation VBG Base Excess Sodium 140 142 Potassium 4.2 4.6 Chloride 108 108 Carbon Dioxide 23 23 Anion Gap 13 16 BUN 33 H 22 H Creatinine 1.15 1.09 Estim Creat Clear Calc 26.9 30.7 Estimated GFR 46 49 POC Glucose Random Glucose 96 204 H Estimat Average Glucose 160 Hemoglobin A1c % 7.2 H Osmolality Lactic Acid Calcium 9.3 9.6 Magnesium Iron TIBC % Saturation Unsat Iron Binding Total Bilirubin 0.5 AST 21 ALT 25 Alkaline Phosphatase 67 Total Protein 7.4 Albumin 4.9 Triglycerides 102 Cholesterol 148 LDL Cholesterol, Calc 68 HDL Cholesterol 60 Lipase TSH 2.14 Free T4 1.15 Urine Color Yellow Urine Appearance Clear Urine pH 7.0 Ur Specific [place] 1.010 Urine Protein Negative Urine Glucose (UA) Negative Urine Ketones Negative Urine Blood Negative Urine Nitrite Negative Ur Leukocyte Esterase Large (3+) H Urine RBC 0-2 Urine WBC 21-50 H Ur Squamous Epith Cells 0-2 Urine Bacteria Trace Hyaline Casts 0-2 Urine Osmolality Ur Random Sodium Urine Opiates Screen POSITIVE H Ur Buprenorphine Scrn Not Detected Ur Oxycodone Screen Not Detected Urine Methadone Screen Not Detected Urine Fentanyl Screen Not Detected Ur Barbiturates Screen Not Detected Carbamazepine Ur Phencyclidine Scrn Not Detected Ur Amphetamines Screen Not Detected U Benzodiazepines Scrn Not Detected Urine Cocaine Screen Not Detected U Marijuana (THC) Screen Not Detected COVID-19 ([facility]) COVID-19 Clin Com Influenza Type A (AMANDA) Influenza Type B (AMANDA) Influenza A & B Note TB Test (T-Spot) Com TB Test Nil Control TB Test Panel A TB Test Panel B TB Test Positive Cntrl 10/23/24 10/23/24 10/23/24 15:19 15:20 16:31 WBC 6.4 RBC 4.03 L Hgb 11.8 L Hct 34.7 L MCV 86.1 MCH 29.3 MCHC 34.0 RDW 13.6 Plt Count 221 MPV 9.8 Immature Gran % (Auto) 0.3 Neut % (Auto) 64.6 Lymph % (Auto) 23.0 [place] % (Auto) 10.4 Eos % (Auto) 1.2 Baso % (Auto) 0.5 Lymph # (Auto) 1.5 [place] # (Auto) 0.7 Eos # (Auto) 0.1 Baso # (Auto) 0.0 Abs Immat Gran (auto) 0.02 Absolute Neuts (auto) 4.2 Absolute Nucleated RBC 0.000 Nucleated RBC % (auto) 0.0 Smear Tech's Comments VERIFIED Hold Purple Top VBG pH VBG pCO2 VBG pO2 VBG HCO3 VBG O2 Saturation VBG Base Excess Sodium 137 Potassium 4.5 Chloride 104 Carbon Dioxide 24 Anion Gap 14 BUN 26 H Creatinine 1.02 Estim Creat Clear Calc 32.8 Estimated GFR 53 POC Glucose 132 H Random Glucose 158 H Estimat Average Glucose Hemoglobin A1c % Osmolality Lactic Acid Calcium 9.3 Magnesium Iron TIBC % Saturation Unsat Iron Binding Total Bilirubin AST ALT Alkaline Phosphatase Total Protein Albumin Triglycerides Cholesterol LDL Cholesterol, Calc HDL Cholesterol Lipase TSH Free T4 Urine Color Urine Appearance Urine pH Ur Specific [place] Urine Protein Urine Glucose (UA) Urine Ketones Urine Blood Urine Nitrite Ur Leukocyte Esterase Urine RBC Urine WBC Ur Squamous Epith Cells Urine Bacteria Hyaline Casts Urine Osmolality Ur Random Sodium Urine Opiates Screen Ur Buprenorphine Scrn Ur Oxycodone Screen Urine Methadone Screen Urine Fentanyl Screen Ur Barbiturates Screen Carbamazepine Ur Phencyclidine Scrn Ur Amphetamines Screen U Benzodiazepines Scrn Urine Cocaine Screen U Marijuana (THC) Screen COVID-19 ([facility]) COVID-19 Clin Com Influenza Type A (AMANDA) Influenza Type B (AMANDA) Influenza A & B Note TB Test (T-Spot) Com TB Test Nil Control TB Test Panel A TB Test Panel B TB Test Positive Cntrl 10/24/24 10/24/24 10/24/24 06:51 11:08 12:19 WBC RBC Hgb Hct MCV MCH MCHC RDW Plt Count MPV Immature Gran % (Auto) Neut % (Auto) Lymph % (Auto) [place] % (Auto) Eos % (Auto) Baso % (Auto) Lymph # (Auto) [place] # (Auto) Eos # (Auto) Baso # (Auto) Abs Immat Gran (auto) Absolute Neuts (auto) Absolute Nucleated RBC Nucleated RBC % (auto) Smear Tech's Comments Hold Purple Top VBG pH VBG pCO2 VBG pO2 VBG HCO3 VBG O2 Saturation VBG Base Excess Sodium Potassium Chloride Carbon Dioxide Anion Gap BUN Creatinine Estim Creat Clear Calc Estimated GFR POC Glucose 204 H 95 Random Glucose Estimat Average Glucose Hemoglobin A1c % Osmolality Lactic Acid Calcium Magnesium Iron 65 TIBC 216 L % Saturation 30 Unsat Iron Binding 151 Total Bilirubin AST ALT Alkaline Phosphatase Total Protein Albumin Triglycerides Cholesterol LDL Cholesterol, Calc HDL Cholesterol Lipase TSH Free T4 Urine Color Urine Appearance Urine pH Ur Specific [place] Urine Protein Urine Glucose (UA) Urine Ketones Urine Blood Urine Nitrite Ur Leukocyte Esterase Urine RBC Urine WBC Ur Squamous Epith Cells Urine Bacteria Hyaline Casts Urine Osmolality Ur Random Sodium Urine Opiates Screen Ur Buprenorphine Scrn Ur Oxycodone Screen Urine Methadone Screen Urine Fentanyl Screen Ur Barbiturates Screen Carbamazepine Ur Phencyclidine Scrn Ur Amphetamines Screen U Benzodiazepines Scrn Urine Cocaine Screen U Marijuana (THC) Screen COVID-19 ([facility]) COVID-19 Clin Com Influenza Type A (AMANDA) Influenza Type B (AMANDA) Influenza A & B Note TB Test (T-Spot) Com TB Test Nil Control TB Test Panel A TB Test Panel B TB Test Positive Cntrl 10/24/24 10/25/24 10/25/24 16:06 05:55 11:15 WBC RBC Hgb Hct MCV MCH MCHC RDW Plt Count MPV Immature Gran % (Auto) Neut % (Auto) Lymph % (Auto) [place] % (Auto) Eos % (Auto) Baso % (Auto) Lymph # (Auto) [place] # (Auto) Eos # (Auto) Baso # (Auto) Abs Immat Gran (auto) Absolute Neuts (auto) Absolute Nucleated RBC Nucleated RBC % (auto) Smear Tech's Comments Hold Purple Top VBG pH VBG pCO2 VBG pO2 VBG HCO3 VBG O2 Saturation VBG Base Excess Sodium Potassium Chloride Carbon Dioxide Anion Gap BUN Creatinine Estim Creat Clear Calc Estimated GFR POC Glucose 142 H 190 H 177 H Random Glucose Estimat Average Glucose Hemoglobin A1c % Osmolality Lactic Acid Calcium Magnesium Iron TIBC % Saturation Unsat Iron Binding Total Bilirubin AST ALT Alkaline Phosphatase Total Protein Albumin Triglycerides Cholesterol LDL Cholesterol, Calc HDL Cholesterol Lipase TSH Free T4 Urine Color Urine Appearance Urine pH Ur Specific [place] Urine Protein Urine Glucose (UA) Urine Ketones Urine Blood Urine Nitrite Ur Leukocyte Esterase Urine RBC Urine WBC Ur Squamous Epith Cells Urine Bacteria Hyaline Casts Urine Osmolality Ur Random Sodium Urine Opiates Screen Ur Buprenorphine Scrn Ur Oxycodone Screen Urine Methadone Screen Urine Fentanyl Screen Ur Barbiturates Screen Carbamazepine Ur Phencyclidine Scrn Ur Amphetamines Screen U Benzodiazepines Scrn Urine Cocaine Screen U Marijuana (THC) Screen COVID-19 ([facility]) COVID-19 Clin Com Influenza Type A (AMANDA) Influenza Type B (AMANDA) Influenza A & B Note TB Test (T-Spot) Com TB Test Nil Control TB Test Panel A TB Test Panel B TB Test Positive [facility] 10/25/24 10/26/24 10/26/24 16:33 07:05 10:57 WBC RBC Hgb Hct MCV MCH MCHC RDW Plt Count MPV Immature Gran % (Auto) Neut % (Auto) Lymph % (Auto) [place] % (Auto) Eos % (Auto) Baso % (Auto) Lymph # (Auto) [place] # (Auto) Eos # (Auto) Baso # (Auto) Abs Immat Gran (auto) Absolute Neuts (auto) Absolute Nucleated RBC Nucleated RBC % (auto) Smear Tech's Comments Hold Purple Top VBG pH VBG pCO2 VBG pO2 VBG HCO3 VBG O2 Saturation VBG Base Excess Sodium Potassium Chloride Carbon Dioxide Anion Gap BUN Creatinine Estim Creat Clear Calc Estimated GFR POC Glucose 170 H 185 H 189 H Random Glucose Estimat Average Glucose Hemoglobin A1c % Osmolality Lactic Acid Calcium Magnesium Iron TIBC % Saturation Unsat Iron Binding Total Bilirubin AST ALT Alkaline Phosphatase Total Protein Albumin Triglycerides Cholesterol LDL Cholesterol, Calc HDL Cholesterol Lipase TSH Free T4 Urine Color Urine Appearance Urine pH Ur Specific [place] Urine Protein Urine Glucose (UA) Urine Ketones Urine Blood Urine Nitrite Ur Leukocyte Esterase Urine RBC Urine WBC Ur Squamous Epith Cells Urine Bacteria Hyaline Casts Urine Osmolality Ur Random Sodium Urine Opiates Screen Ur Buprenorphine Scrn Ur Oxycodone Screen Urine Methadone Screen Urine Fentanyl Screen Ur Barbiturates Screen Carbamazepine Ur Phencyclidine Scrn Ur Amphetamines Screen U Benzodiazepines Scrn Urine Cocaine Screen U Marijuana (THC) Screen COVID-19 ([facility]) COVID-19 Clin Com Influenza Type A (AMANDA) Influenza Type B (AMANDA) Influenza A & B Note TB Test (T-Spot) Com TB Test Nil Control TB Test Panel A TB Test Panel B TB Test Positive [facility] 10/26/24 10/27/24 10/27/24 16:19 06:45 11:24 WBC RBC Hgb Hct MCV MCH MCHC RDW Plt Count MPV Immature Gran % (Auto) Neut % (Auto) Lymph % (Auto) [place] % (Auto) Eos % (Auto) Baso % (Auto) Lymph # (Auto) [place] # (Auto) Eos # (Auto) Baso # (Auto) Abs Immat Gran (auto) Absolute Neuts (auto) Absolute Nucleated RBC Nucleated RBC % (auto) Smear Tech's Comments Hold Purple Top VBG pH VBG pCO2 VBG pO2 VBG HCO3 VBG O2 Saturation VBG Base Excess Sodium Potassium Chloride Carbon Dioxide Anion Gap BUN Creatinine Estim Creat Clear Calc Estimated GFR POC Glucose 170 H 215 H 117 H Random Glucose Estimat Average Glucose Hemoglobin A1c % Osmolality Lactic Acid Calcium Magnesium Iron TIBC % Saturation Unsat Iron Binding Total Bilirubin AST ALT Alkaline Phosphatase Total Protein Albumin Triglycerides Cholesterol LDL Cholesterol, Calc HDL Cholesterol Lipase TSH Free T4 Urine Color Urine Appearance Urine pH Ur Specific [place] Urine Protein Urine Glucose (UA) Urine Ketones Urine Blood Urine Nitrite Ur Leukocyte Esterase Urine RBC Urine WBC Ur Squamous Epith Cells Urine Bacteria Hyaline Casts Urine Osmolality Ur Random Sodium Urine Opiates Screen Ur Buprenorphine Scrn Ur Oxycodone Screen Urine Methadone Screen Urine Fentanyl Screen Ur Barbiturates Screen Carbamazepine Ur Phencyclidine Scrn Ur Amphetamines Screen U Benzodiazepines Scrn Urine Cocaine Screen U Marijuana (THC) Screen COVID-19 ([facility]) COVID-19 Clin Com Influenza Type A (AMANDA) Influenza Type B (AMANDA) Influenza A & B Note TB Test (T-Spot) Com TB Test Nil Control TB Test Panel A TB Test Panel B TB Test Positive Cnt 10/27/24 10/28/24 10/28/24 16:14 06:32 10:50 WBC RBC Hgb Hct MCV MCH MCHC RDW Plt Count MPV Immature Gran % (Auto) Neut % (Auto) Lymph % (Auto) [place] % (Auto) Eos % (Auto) Baso % (Auto) Lymph # (Auto) [place] # (Auto) Eos # (Auto) Baso # (Auto) Abs Immat Gran (auto) Absolute Neuts (auto) Absolute Nucleated RBC Nucleated RBC % (auto) Smear Tech's Comments Hold Purple Top VBG pH VBG pCO2 VBG pO2 VBG HCO3 VBG O2 Saturation VBG Base Excess Sodium Potassium Chloride Carbon Dioxide Anion Gap BUN Creatinine Estim Creat Clear Calc Estimated GFR POC Glucose 156 H 195 H 288 H Random Glucose Estimat Average Glucose Hemoglobin A1c % Osmolality Lactic Acid Calcium Magnesium Iron TIBC % Saturation Unsat Iron Binding Total Bilirubin AST ALT Alkaline Phosphatase Total Protein Albumin Triglycerides Cholesterol LDL Cholesterol, Calc HDL Cholesterol Lipase TSH Free T4 Urine Color Urine Appearance Urine pH Ur Specific [place] Urine Protein Urine Glucose (UA) Urine Ketones Urine Blood Urine Nitrite Ur Leukocyte Esterase Urine RBC Urine WBC Ur Squamous Epith Cells Urine Bacteria Hyaline Casts Urine Osmolality Ur Random Sodium Urine Opiates Screen Ur Buprenorphine Scrn Ur Oxycodone Screen Urine Methadone Screen Urine Fentanyl Screen Ur Barbiturates Screen Carbamazepine Ur Phencyclidine Scrn Ur Amphetamines Screen U Benzodiazepines Scrn Urine Cocaine Screen U Marijuana (THC) Screen COVID-19 ([facility]) COVID-19 Clin Com Influenza Type A (AMANDA) Influenza Type B (AMANDA) Influenza A & B Note TB Test (T-Spot) Com TB Test Nil Control TB Test Panel A TB Test Panel B TB Test Positive Cntrl 10/28/24 10/28/24 10/29/24 15:54 20:28 06:47 WBC RBC Hgb Hct MCV MCH MCHC RDW Plt Count MPV Immature Gran % (Auto) Neut % (Auto) Lymph % (Auto) [place] % (Auto) Eos % (Auto) Baso % (Auto) Lymph # (Auto) [place] # (Auto) Eos # (Auto) Baso # (Auto) Abs Immat Gran (auto) Absolute Neuts (auto) Absolute Nucleated RBC Nucleated RBC % (auto) Smear Tech's Comments Hold Purple Top VBG pH VBG pCO2 VBG pO2 VBG HCO3 VBG O2 Saturation VBG Base Excess Sodium Potassium Chloride Carbon Dioxide Anion Gap BUN Creatinine Estim Creat Clear Calc Estimated GFR POC Glucose 132 H 210 H 188 H Random Glucose Estimat Average Glucose Hemoglobin A1c % Osmolality Lactic Acid Calcium Magnesium Iron TIBC % Saturation Unsat Iron Binding Total Bilirubin AST ALT Alkaline Phosphatase Total Protein Albumin Triglycerides Cholesterol LDL Cholesterol, Calc HDL Cholesterol Lipase TSH Free T4 Urine Color Urine Appearance Urine pH Ur Specific [place] Urine Protein Urine Glucose (UA) Urine Ketones Urine Blood Urine Nitrite Ur Leukocyte Esterase Urine RBC Urine WBC Ur Squamous Epith Cells Urine Bacteria Hyaline Casts Urine Osmolality Ur Random Sodium Urine Opiates Screen Ur Buprenorphine Scrn Ur Oxycodone Screen Urine Methadone Screen Urine Fentanyl Screen Ur Barbiturates Screen Carbamazepine Ur Phencyclidine Scrn Ur Amphetamines Screen U Benzodiazepines Scrn Urine Cocaine Screen U Marijuana (THC) Screen COVID-19 ([facility]) COVID-19 Clin Com Influenza Type A (AMANDA) Influenza Type B (AMANDA) Influenza A & B Note TB Test (T-Spot) Com TB Test Nil Control TB Test Panel A TB Test Panel B TB Test Positive Cntrl 10/29/24 10/29/24 10/29/24 11:16 15:42 16:24 WBC 11.0 H RBC 3.49 L Hgb 10.4 L Hct 29.9 L MCV 85.7 MCH 29.8 MCHC 34.8 RDW 13.7 Plt Count 271 MPV 8.8 L Immature Gran % (Auto) 0.5 H Neut % (Auto) 71.9 Lymph % (Auto) 14.5 L [place] % (Auto) 11.9 H Eos % (Auto) 0.7 Baso % (Auto) 0.5 Lymph # (Auto) 1.6 [place] # (Auto) 1.3 H Eos # (Auto) 0.1 Baso # (Auto) 0.1 Abs Immat Gran (auto) 0.05 H Absolute Neuts (auto) 7.9 Absolute Nucleated RBC 0.000 Nucleated RBC % (auto) 0.0 Smear Tech's Comments Hold Purple Top VBG pH VBG pCO2 VBG pO2 VBG HCO3 VBG O2 Saturation VBG Base Excess Sodium 133 L Potassium 4.7 Chloride 102 Carbon Dioxide 24 Anion Gap 12 BUN 39 H Creatinine 1.24 Estim Creat Clear Calc 27.3 Estimated GFR 42 POC Glucose 265 H 156 H Random Glucose 180 H Estimat Average Glucose Hemoglobin A1c % Osmolality Lactic Acid Calcium 8.9 Magnesium Iron TIBC % Saturation Unsat Iron Binding Total Bilirubin 0.4 AST 15 ALT 21 Alkaline Phosphatase 67 Total Protein 6.4 L Albumin 4.1 Triglycerides Cholesterol LDL Cholesterol, Calc HDL Cholesterol Lipase TSH Free T4 Urine Color Urine Appearance Urine pH Ur Specific [place] Urine Protein Urine Glucose (UA) Urine Ketones Urine Blood Urine Nitrite Ur Leukocyte Esterase Urine RBC Urine WBC Ur Squamous Epith Cells Urine Bacteria Hyaline Casts Urine Osmolality Ur Random Sodium Urine Opiates Screen Ur Buprenorphine Scrn Ur Oxycodone Screen Urine Methadone Screen Urine Fentanyl Screen Ur Barbiturates Screen Carbamazepine Ur Phencyclidine Scrn Ur Amphetamines Screen U Benzodiazepines Scrn Urine Cocaine Screen U Marijuana (THC) Screen COVID-19 ([facility]) COVID-19 Clin Com Influenza Type A (AMANDA) Influenza Type B (AMANDA) Influenza A & B Note TB Test (T-Spot) Com TB Test Nil Control TB Test Panel A TB Test Panel B TB Test Positive [facility] 10/30/24 10/30/24 10/30/24 06:46 11:13 16:09 WBC RBC Hgb Hct MCV MCH MCHC RDW Plt Count MPV Immature Gran % (Auto) Neut % (Auto) Lymph % (Auto) [place] % (Auto) Eos % (Auto) Baso % (Auto) Lymph # (Auto) [place] # (Auto) Eos # (Auto) Baso # (Auto) Abs Immat Gran (auto) Absolute Neuts (auto) Absolute Nucleated RBC Nucleated RBC % (auto) Smear Tech's Comments Hold Purple Top VBG pH VBG pCO2 VBG pO2 VBG HCO3 VBG O2 Saturation VBG Base Excess Sodium Potassium Chloride Carbon Dioxide Anion Gap BUN Creatinine Estim Creat Clear Calc Estimated GFR POC Glucose 195 H 194 H 143 H Random Glucose Estimat Average Glucose Hemoglobin A1c % Osmolality Lactic Acid Calcium Magnesium Iron TIBC % Saturation Unsat Iron Binding Total Bilirubin AST ALT Alkaline Phosphatase Total Protein Albumin Triglycerides Cholesterol LDL Cholesterol, Calc HDL Cholesterol Lipase TSH Free T4 Urine Color Urine Appearance Urine pH Ur Specific [place] Urine Protein Urine Glucose (UA) Urine Ketones Urine Blood Urine Nitrite Ur Leukocyte Esterase Urine RBC Urine WBC Ur Squamous Epith Cells Urine Bacteria Hyaline Casts Urine Osmolality Ur Random Sodium Urine Opiates Screen Ur Buprenorphine Scrn Ur Oxycodone Screen Urine Methadone Screen Urine Fentanyl Screen Ur Barbiturates Screen Carbamazepine Ur Phencyclidine Scrn Ur Amphetamines Screen U Benzodiazepines Scrn Urine Cocaine Screen U Marijuana (THC) Screen COVID-19 ([facility]ESA) COVID-19 Clin Com Influenza Type A (AMANDA) Influenza Type B (AMANDA) Influenza A & B Note TB Test (T-Spot) Com TB Test Nil Control TB Test Panel A TB Test Panel B TB Test Positive [facility] 10/30/24 10/30/24 10/31/24 17:25 19:55 06:33 WBC 11.2 H RBC 3.63 L Hgb 10.7 L Hct 31.4 L MCV 86.5 MCH 29.5 MCHC 34.1 RDW 13.5 Plt Count 288 MPV 8.9 L Immature Gran % (Auto) 0.5 H Neut % (Auto) 74.7 H Lymph % (Auto) 13.2 L [place] % (Auto) 10.5 Eos % (Auto) 0.7 Baso % (Auto) 0.4 Lymph # (Auto) 1.5 [place] # (Auto) 1.2 Eos # (Auto) 0.1 Baso # (Auto) 0.0 Abs Immat Gran (auto) 0.06 H Absolute Neuts (auto) 8.4 H Absolute Nucleated RBC 0.000 Nucleated RBC % (auto) 0.0 Smear Tech's Comments Hold Purple Top VBG pH VBG pCO2 VBG pO2 VBG HCO3 VBG O2 Saturation VBG Base Excess Sodium 136 Potassium 5.1 Chloride 101 Carbon Dioxide 26 Anion Gap 14 BUN 34 H Creatinine 1.17 Estim Creat Clear Calc 28.9 Estimated GFR 45 POC Glucose 244 H 173 H Random Glucose 225 H Estimat Average Glucose Hemoglobin A1c % Osmolality Lactic Acid Calcium 9.2 Magnesium Iron TIBC % Saturation Unsat Iron Binding Total Bilirubin 0.5 AST 15 ALT 23 Alkaline Phosphatase 64 Total Protein 6.8 Albumin 4.3 Triglycerides Cholesterol LDL Cholesterol, Calc HDL Cholesterol Lipase TSH Free T4 Urine Color Urine Appearance Urine pH Ur Specific [place] Urine Protein Urine Glucose (UA) Urine Ketones Urine Blood Urine Nitrite Ur Leukocyte Esterase Urine RBC Urine WBC Ur Squamous Epith Cells Urine Bacteria Hyaline Casts Urine Osmolality Ur Random Sodium Urine Opiates Screen Ur Buprenorphine Scrn Ur Oxycodone Screen Urine Methadone Screen Urine Fentanyl Screen Ur Barbiturates Screen Carbamazepine Ur Phencyclidine Scrn Ur Amphetamines Screen U Benzodiazepines Scrn Urine Cocaine Screen U Marijuana (THC) Screen COVID-19 (TRESA) COVID-19 Clin Com Influenza Type A (AMANDA) Influenza Type B (AMANDA) Influenza A & B Note TB Test (T-Spot) Com TB Test Nil Control TB Test Panel A TB Test Panel B TB Test Positive [facility] 10/31/24 10/31/24 11/01/24 11:26 16:31 06:33 WBC RBC Hgb Hct MCV MCH MCHC RDW Plt Count MPV Immature Gran % (Auto) Neut % (Auto) Lymph % (Auto) [place] % (Auto) Eos % (Auto) Baso % (Auto) Lymph # (Auto) [place] # (Auto) Eos # (Auto) Baso # (Auto) Abs Immat Gran (auto) Absolute Neuts (auto) Absolute Nucleated RBC Nucleated RBC % (auto) Smear Tech's Comments Hold Purple Top VBG pH VBG pCO2 VBG pO2 VBG HCO3 VBG O2 Saturation VBG Base Excess Sodium Potassium Chloride Carbon Dioxide Anion Gap BUN Creatinine Estim Creat Clear Calc Estimated GFR POC Glucose 178 H 169 H 199 H Random Glucose Estimat Average Glucose Hemoglobin A1c % Osmolality Lactic Acid Calcium Magnesium Iron TIBC % Saturation Unsat Iron Binding Total Bilirubin AST ALT Alkaline Phosphatase Total Protein Albumin Triglycerides Cholesterol LDL Cholesterol, Calc HDL Cholesterol Lipase TSH Free T4 Urine Color Urine Appearance Urine pH Ur Specific [place] Urine Protein Urine Glucose (UA) Urine Ketones Urine Blood Urine Nitrite Ur Leukocyte Esterase Urine RBC Urine WBC Ur Squamous Epith Cells Urine Bacteria Hyaline Casts Urine Osmolality Ur Random Sodium Urine Opiates Screen Ur Buprenorphine Scrn Ur Oxycodone Screen Urine Methadone Screen Urine Fentanyl Screen Ur Barbiturates Screen Carbamazepine Ur Phencyclidine Scrn Ur Amphetamines Screen U Benzodiazepines Scrn Urine Cocaine Screen U Marijuana (THC) Screen COVID-19 ([facility]) COVID-19 Clin Com Influenza Type A (AMANDA) Influenza Type B (AMANDA) Influenza A & B Note TB Test (T-Spot) Com TB Test Nil Control TB Test Panel A TB Test Panel B TB Test Positive [facility] 11/01/24 11/01/24 11/01/24 11:05 16:24 19:41 WBC RBC Hgb Hct MCV MCH MCHC RDW Plt Count MPV Immature Gran % (Auto) Neut % (Auto) Lymph % (Auto) [place] % (Auto) Eos % (Auto) Baso % (Auto) Lymph # (Auto) [place] # (Auto) Eos # (Auto) Baso # (Auto) Abs Immat Gran (auto) Absolute Neuts (auto) Absolute Nucleated RBC Nucleated RBC % (auto) Smear Tech's Comments Hold Purple Top VBG pH VBG pCO2 VBG pO2 VBG HCO3 VBG O2 Saturation VBG Base Excess Sodium Potassium Chloride Carbon Dioxide Anion Gap BUN Creatinine Estim Creat Clear Calc Estimated GFR POC Glucose 257 H 124 H 209 H Random Glucose Estimat Average Glucose Hemoglobin A1c % Osmolality Lactic Acid Calcium Magnesium Iron TIBC % Saturation Unsat Iron Binding Total Bilirubin AST ALT Alkaline Phosphatase Total Protein Albumin Triglycerides Cholesterol LDL Cholesterol, Calc HDL Cholesterol Lipase TSH Free T4 Urine Color Urine Appearance Urine pH Ur Specific [place] Urine Protein Urine Glucose (UA) Urine Ketones Urine Blood Urine Nitrite Ur Leukocyte Esterase Urine RBC Urine WBC Ur Squamous Epith Cells Urine Bacteria Hyaline Casts Urine Osmolality Ur Random Sodium Urine Opiates Screen Ur Buprenorphine Scrn Ur Oxycodone Screen Urine Methadone Screen Urine Fentanyl Screen Ur Barbiturates Screen Carbamazepine Ur Phencyclidine Scrn Ur Amphetamines Screen U Benzodiazepines Scrn Urine Cocaine Screen U Marijuana (THC) Screen COVID-19 ([facility]ESA) COVID-19 Clin Com Influenza Type A (AMANDA) Influenza Type B (AMANDA) Influenza A & B Note TB Test (T-Spot) Com TB Test Nil Control TB Test Panel A TB Test Panel B TB Test Positive [facility] 11/02/24 11/02/24 11/02/24 06:34 11:26 11:28 WBC RBC Hgb Hct MCV MCH MCHC RDW Plt Count MPV Immature Gran % (Auto) Neut % (Auto) Lymph % (Auto) [place] % (Auto) Eos % (Auto) Baso % (Auto) Lymph # (Auto) [place] # (Auto) Eos # (Auto) Baso # (Auto) Abs Immat Gran (auto) Absolute Neuts (auto) Absolute Nucleated RBC Nucleated RBC % (auto) Smear Tech's Comments Hold Purple Top VBG pH VBG pCO2 VBG pO2 VBG HCO3 VBG O2 Saturation VBG Base Excess Sodium Potassium Chloride Carbon Dioxide Anion Gap BUN Creatinine Estim Creat Clear Calc Estimated GFR POC Glucose 185 H 445 H* 469 H* Random Glucose Estimat Average Glucose Hemoglobin A1c % Osmolality Lactic Acid Calcium Magnesium Iron TIBC % Saturation Unsat Iron Binding Total Bilirubin AST ALT Alkaline Phosphatase Total Protein Albumin Triglycerides Cholesterol LDL Cholesterol, Calc HDL Cholesterol Lipase TSH Free T4 Urine Color Urine Appearance Urine pH Ur Specific [place] Urine Protein Urine Glucose (UA) Urine Ketones Urine Blood Urine Nitrite Ur Leukocyte Esterase Urine RBC Urine WBC Ur Squamous Epith Cells Urine Bacteria Hyaline Casts Urine Osmolality Ur Random Sodium Urine Opiates Screen Ur Buprenorphine Scrn Ur Oxycodone Screen Urine Methadone Screen Urine Fentanyl Screen Ur Barbiturates Screen Carbamazepine Ur Phencyclidine Scrn Ur Amphetamines Screen U Benzodiazepines Scrn Urine Cocaine Screen U Marijuana (THC) Screen COVID-19 ([facility]ESA) COVID-19 Clin Com Influenza Type A (AMANDA) Influenza Type B (AMANDA) Influenza A & B Note TB Test (T-Spot) Com TB Test Nil Control TB Test Panel A TB Test Panel B TB Test Positive [facility] 11/02/24 11/02/24 11/02/24 13:18 16:31 19:46 WBC RBC Hgb Hct MCV MCH MCHC RDW Plt Count MPV Immature Gran % (Auto) Neut % (Auto) Lymph % (Auto) [place] % (Auto) Eos % (Auto) Baso % (Auto) Lymph # (Auto) [place] # (Auto) Eos # (Auto) Baso # (Auto) Abs Immat Gran (auto) Absolute Neuts (auto) Absolute Nucleated RBC Nucleated RBC % (auto) Smear Tech's Comments Hold Purple Top VBG pH VBG pCO2 VBG pO2 VBG HCO3 VBG O2 Saturation VBG Base Excess Sodium Potassium Chloride Carbon Dioxide Anion Gap BUN Creatinine Estim Creat Clear Calc Estimated GFR POC Glucose 379 H* 206 H 153 H Random Glucose Estimat Average Glucose Hemoglobin A1c % Osmolality Lactic Acid Calcium Magnesium Iron TIBC % Saturation Unsat Iron Binding Total Bilirubin AST ALT Alkaline Phosphatase Total Protein Albumin Triglycerides Cholesterol LDL Cholesterol, Calc HDL Cholesterol Lipase TSH Free T4 Urine Color Urine Appearance Urine pH Ur Specific [place] Urine Protein Urine Glucose (UA) Urine Ketones Urine Blood Urine Nitrite Ur Leukocyte Esterase Urine RBC Urine WBC Ur Squamous Epith Cells Urine Bacteria Hyaline Casts Urine Osmolality Ur Random Sodium Urine Opiates Screen Ur Buprenorphine Scrn Ur Oxycodone Screen Urine Methadone Screen Urine Fentanyl Screen Ur Barbiturates Screen Carbamazepine Ur Phencyclidine Scrn Ur Amphetamines Screen U Benzodiazepines Scrn Urine Cocaine Screen U Marijuana (THC) Screen COVID-19 (TRESA) COVID-19 Clin Com Influenza Type A (AMANDA) Influenza Type B (AMANDA) Influenza A & B Note TB Test (T-Spot) Com TB Test Nil Control TB Test Panel A TB Test Panel B TB Test Positive Cn[facility] 11/02/24 11/02/24 11/02/24 20:13 20:14 20:18 WBC 6.8 RBC 3.44 L Hgb 10.4 L Hct 29.1 L MCV 84.6 MCH 30.2 MCHC 35.7 H RDW 13.2 Plt Count 286 MPV 8.6 L Immature Gran % (Auto) 0.4 Neut % (Auto) 59.4 Lymph % (Auto) 27.6 [place] % (Auto) 11.3 H Eos % (Auto) 1.0 Baso % (Auto) 0.3 Lymph # (Auto) 1.9 [place] # (Auto) 0.8 Eos # (Auto) 0.1 Baso # (Auto) 0.0 Abs Immat Gran (auto) 0.03 Absolute Neuts (auto) 4.1 Absolute Nucleated RBC 0.000 Nucleated RBC % (auto) 0.0 Smear Tech's Comments Hold Purple Top VBG pH 7.44 H VBG pCO2 37 VBG pO2 48 VBG HCO3 26 VBG O2 Saturation 76.0 VBG Base Excess 2.3 Sodium 133 L Potassium 4.7 Chloride 100 Carbon Dioxide 26 Anion Gap 12 BUN 33 H Creatinine 1.86 H Estim Creat Clear Calc 18.0 Estimated GFR 26 POC Glucose Random Glucose 135 H Estimat Average Glucose Hemoglobin A1c % Osmolality Lactic Acid 1.2 Calcium 9.3 Magnesium 2.2 Iron TIBC % Saturation Unsat Iron Binding Total Bilirubin 0.4 AST 16 ALT 25 Alkaline Phosphatase 79 Total Protein 7.1 Albumin 4.4 Triglycerides Cholesterol LDL Cholesterol, Calc HDL Cholesterol Lipase 37 TSH Free T4 Urine Color Urine Appearance Urine pH Ur Specific [place] Urine Protein Urine Glucose (UA) Urine Ketones Urine Blood Urine Nitrite Ur Leukocyte Esterase Urine RBC Urine WBC Ur Squamous Epith Cells Urine Bacteria Hyaline Casts Urine Osmolality Ur Random Sodium Urine Opiates Screen Ur Buprenorphine Scrn Ur Oxycodone Screen Urine Methadone Screen Urine Fentanyl Screen Ur Barbiturates Screen Carbamazepine Ur Phencyclidine Scrn Ur Amphetamines Screen U Benzodiazepines Scrn Urine Cocaine Screen U Marijuana (THC) Screen COVID-19 ([facility]ESA) COVID-19 Clin Com Influenza Type A (AMANDA) Influenza Type B (AMANDA) Influenza A & B Note TB Test (T-Spot) Com TB Test Nil Control TB Test Panel A TB Test Panel B TB Test Positive [facility] 11/02/24 11/02/24 11/03/24 20:20 21:38 06:38 WBC RBC Hgb Hct MCV MCH MCHC RDW Plt Count MPV Immature Gran % (Auto) Neut % (Auto) Lymph % (Auto) [place] % (Auto) Eos % (Auto) Baso % (Auto) Lymph # (Auto) [place] # (Auto) Eos # (Auto) Baso # (Auto) Abs Immat Gran (auto) Absolute Neuts (auto) Absolute Nucleated RBC Nucleated RBC % (auto) Smear Tech's Comments Hold Purple Top VBG pH VBG pCO2 VBG pO2 VBG HCO3 VBG O2 Saturation VBG Base Excess Sodium Potassium Chloride Carbon Dioxide Anion Gap BUN Creatinine Estim Creat Clear Calc Estimated GFR POC Glucose 123 H 164 H Random Glucose Estimat Average Glucose Hemoglobin A1c % Osmolality Lactic Acid Calcium Magnesium Iron TIBC % Saturation Unsat Iron Binding Total Bilirubin AST ALT Alkaline Phosphatase Total Protein Albumin Triglycerides Cholesterol LDL Cholesterol, Calc HDL Cholesterol Lipase TSH Free T4 Urine Color Yellow Urine Appearance Clear Urine pH 6.5 Ur Specific [place] 1.015 Urine Protein Negative Urine Glucose (UA) Negative Urine Ketones Negative Urine Blood Negative Urine Nitrite Negative Ur Leukocyte Esterase Large (3+) H Urine RBC 0-2 Urine WBC 11-20 H Ur Squamous Epith Cells 0-2 Urine Bacteria None Seen Hyaline Casts 0-2 Urine Osmolality Ur Random Sodium Urine Opiates Screen Ur Buprenorphine Scrn Ur Oxycodone Screen Urine Methadone Screen Urine Fentanyl Screen Ur Barbiturates Screen Carbamazepine Ur Phencyclidine Scrn Ur Amphetamines Screen U Benzodiazepines Scrn Urine Cocaine Screen U Marijuana (THC) Screen COVID-19 ([facility]ESA) COVID-19 Clin Com Influenza Type A (AMANDA) Influenza Type B (AMANDA) Influenza A & B Note TB Test (T-Spot) Com TB Test Nil Control TB Test Panel A TB Test Panel B TB Test Positive Cntrl 11/03/24 11/03/24 11/04/24 11:23 16:03 06:47 WBC RBC Hgb Hct MCV MCH MCHC RDW Plt Count MPV Immature Gran % (Auto) Neut % (Auto) Lymph % (Auto) [place] % (Auto) Eos % (Auto) Baso % (Auto) Lymph # (Auto) [place] # (Auto) Eos # (Auto) Baso # (Auto) Abs Immat Gran (auto) Absolute Neuts (auto) Absolute Nucleated RBC Nucleated RBC % (auto) Smear Tech's Comments Hold Purple Top VBG pH VBG pCO2 VBG pO2 VBG HCO3 VBG O2 Saturation VBG Base Excess Sodium Potassium Chloride Carbon Dioxide Anion Gap BUN Creatinine Estim Creat Clear Calc Estimated GFR POC Glucose 238 H 185 H 148 H Random Glucose Estimat Average Glucose Hemoglobin A1c % Osmolality Lactic Acid Calcium Magnesium Iron TIBC % Saturation Unsat Iron Binding Total Bilirubin AST ALT Alkaline Phosphatase Total Protein Albumin Triglycerides Cholesterol LDL Cholesterol, Calc HDL Cholesterol Lipase TSH Free T4 Urine Color Urine Appearance Urine pH Ur Specific [place] Urine Protein Urine Glucose (UA) Urine Ketones Urine Blood Urine Nitrite Ur Leukocyte Esterase Urine RBC Urine WBC Ur Squamous Epith Cells Urine Bacteria Hyaline Casts Urine Osmolality Ur Random Sodium Urine Opiates Screen Ur Buprenorphine Scrn Ur Oxycodone Screen Urine Methadone Screen Urine Fentanyl Screen Ur Barbiturates Screen Carbamazepine Ur Phencyclidine Scrn Ur Amphetamines Screen U Benzodiazepines Scrn Urine Cocaine Screen U Marijuana (THC) Screen COVID-19 ([facility]) COVID-19 Clin Com Influenza Type A (AMANDA) Influenza Type B (AMANDA) Influenza A & B Note TB Test (T-Spot) Com TB Test Nil Control TB Test Panel A TB Test Panel B TB Test Positive [facility] 11/04/24 11/04/24 11/04/24 09:52 11:20 16:30 WBC RBC Hgb Hct MCV MCH MCHC RDW Plt Count MPV Immature Gran % (Auto) Neut % (Auto) Lymph % (Auto) [place] % (Auto) Eos % (Auto) Baso % (Auto) Lymph # (Auto) [place] # (Auto) Eos # (Auto) Baso # (Auto) Abs Immat Gran (auto) Absolute Neuts (auto) Absolute Nucleated RBC Nucleated RBC % (auto) Smear Tech's Comments Hold Purple Top VBG pH VBG pCO2 VBG pO2 VBG HCO3 VBG O2 Saturation VBG Base Excess Sodium 134 L Potassium 5.5 H Chloride 102 Carbon Dioxide 22 Anion Gap 16 BUN 35 H Creatinine 1.15 Estim Creat Clear Calc 29.2 Estimated GFR 46 POC Glucose 178 H 139 H Random Glucose 232 H Estimat Average Glucose Hemoglobin A1c % Osmolality Lactic Acid Calcium 9.1 Magnesium Iron TIBC % Saturation Unsat Iron Binding Total Bilirubin 0.3 AST 25 ALT 25 Alkaline Phosphatase 67 Total Protein 6.9 Albumin 4.2 Triglycerides Cholesterol LDL Cholesterol, Calc HDL Cholesterol Lipase TSH Free T4 Urine Color Urine Appearance Urine pH Ur Specific [place] Urine Protein Urine Glucose (UA) Urine Ketones Urine Blood Urine Nitrite Ur Leukocyte Esterase Urine RBC Urine WBC Ur Squamous Epith Cells Urine Bacteria Hyaline Casts Urine Osmolality Ur Random Sodium Urine Opiates Screen Ur Buprenorphine Scrn Ur Oxycodone Screen Urine Methadone Screen Urine Fentanyl Screen Ur Barbiturates Screen Carbamazepine Ur Phencyclidine Scrn Ur Amphetamines Screen U Benzodiazepines Scrn Urine Cocaine Screen U Marijuana (THC) Screen COVID-19 ([facility]ESA) COVID-19 Clin Com Influenza Type A (AMANDA) Influenza Type B (AMANDA) Influenza A & B Note TB Test (T-Spot) Com TB Test Nil Control TB Test Panel A TB Test Panel B TB Test Positive [facility] 11/04/24 11/04/24 11/05/24 16:53 21:12 06:28 WBC RBC Hgb Hct MCV MCH MCHC RDW Plt Count MPV Immature Gran % (Auto) Neut % (Auto) Lymph % (Auto) [place] % (Auto) Eos % (Auto) Baso % (Auto) Lymph # (Auto) [place] # (Auto) Eos # (Auto) Baso # (Auto) Abs Immat Gran (auto) Absolute Neuts (auto) Absolute Nucleated RBC Nucleated RBC % (auto) Smear Tech's Comments Hold Purple Top VBG pH VBG pCO2 VBG pO2 VBG HCO3 VBG O2 Saturation VBG Base Excess Sodium Potassium Chloride Carbon Dioxide Anion Gap BUN Creatinine Estim Creat Clear Calc Estimated GFR POC Glucose 192 H 199 H 155 H Random Glucose Estimat Average Glucose Hemoglobin A1c % Osmolality Lactic Acid Calcium Magnesium Iron TIBC % Saturation Unsat Iron Binding Total Bilirubin AST ALT Alkaline Phosphatase Total Protein Albumin Triglycerides Cholesterol LDL Cholesterol, Calc HDL Cholesterol Lipase TSH Free T4 Urine Color Urine Appearance Urine pH Ur Specific [place] Urine Protein Urine Glucose (UA) Urine Ketones Urine Blood Urine Nitrite Ur Leukocyte Esterase Urine RBC Urine WBC Ur Squamous Epith Cells Urine Bacteria Hyaline Casts Urine Osmolality Ur Random Sodium Urine Opiates Screen Ur Buprenorphine Scrn Ur Oxycodone Screen Urine Methadone Screen Urine Fentanyl Screen Ur Barbiturates Screen Carbamazepine Ur Phencyclidine Scrn Ur Amphetamines Screen U Benzodiazepines Scrn Urine Cocaine Screen U Marijuana (THC) Screen COVID-19 ([facility]ES[facility]) COVID-19 Clin Com Influenza Type A (AMANDA) Influenza Type B (AMANDA) Influenza A & B Note TB Test (T-Spot) Com TB Test Nil Control TB Test Panel A TB Test Panel B TB Test Positive [facility] 11/05/24 11/05/24 11/05/24 11:14 16:10 20:54 WBC RBC Hgb Hct MCV MCH MCHC RDW Plt Count MPV Immature Gran % (Auto) Neut % (Auto) Lymph % (Auto) [place] % (Auto) Eos % (Auto) Baso % (Auto) Lymph # (Auto) [place] # (Auto) Eos # (Auto) Baso # (Auto) Abs Immat Gran (auto) Absolute Neuts (auto) Absolute Nucleated RBC Nucleated RBC % (auto) Smear Tech's Comments Hold Purple Top VBG pH VBG pCO2 VBG pO2 VBG HCO3 VBG O2 Saturation VBG Base Excess Sodium Potassium Chloride Carbon Dioxide Anion Gap BUN Creatinine Estim Creat Clear Calc Estimated GFR POC Glucose 145 H 145 H 205 H Random Glucose Estimat Average Glucose Hemoglobin A1c % Osmolality Lactic Acid Calcium Magnesium Iron TIBC % Saturation Unsat Iron Binding Total Bilirubin AST ALT Alkaline Phosphatase Total Protein Albumin Triglycerides Cholesterol LDL Cholesterol, Calc HDL Cholesterol Lipase TSH Free T4 Urine Color Urine Appearance Urine pH Ur Specific [place] Urine Protein Urine Glucose (UA) Urine Ketones Urine Blood Urine Nitrite Ur Leukocyte Esterase Urine RBC Urine WBC Ur Squamous Epith Cells Urine Bacteria Hyaline Casts Urine Osmolality Ur Random Sodium Urine Opiates Screen Ur Buprenorphine Scrn Ur Oxycodone Screen Urine Methadone Screen Urine Fentanyl Screen Ur Barbiturates Screen Carbamazepine Ur Phencyclidine Scrn Ur Amphetamines Screen U Benzodiazepines Scrn Urine Cocaine Screen U Marijuana (THC) Screen COVID-19 ([facility]) COVID-19 Clin Com Influenza Type A (AMANDA) Influenza Type B (AMANDA) Influenza A & B Note TB Test (T-Spot) Com TB Test Nil Control TB Test Panel A TB Test Panel B TB Test Positive Cntrl 11/06/24 11/06/24 11/06/24 06:29 11:28 16:19 WBC RBC Hgb Hct MCV MCH MCHC RDW Plt Count MPV Immature Gran % (Auto) Neut % (Auto) Lymph % (Auto) [place] % (Auto) Eos % (Auto) Baso % (Auto) Lymph # (Auto) [place] # (Auto) Eos # (Auto) Baso # (Auto) Abs Immat Gran (auto) Absolute Neuts (auto) Absolute Nucleated RBC Nucleated RBC % (auto) Smear Tech's Comments Hold Purple Top VBG pH VBG pCO2 VBG pO2 VBG HCO3 VBG O2 Saturation VBG Base Excess Sodium Potassium Chloride Carbon Dioxide Anion Gap BUN Creatinine Estim Creat Clear Calc Estimated GFR POC Glucose 186 H 166 H 168 H Random Glucose Estimat Average Glucose Hemoglobin A1c % Osmolality Lactic Acid Calcium Magnesium Iron TIBC % Saturation Unsat Iron Binding Total Bilirubin AST ALT Alkaline Phosphatase Total Protein Albumin Triglycerides Cholesterol LDL Cholesterol, Calc HDL Cholesterol Lipase TSH Free T4 Urine Color Urine Appearance Urine pH Ur Specific [place] Urine Protein Urine Glucose (UA) Urine Ketones Urine Blood Urine Nitrite Ur Leukocyte Esterase Urine RBC Urine WBC Ur Squamous Epith Cells Urine Bacteria Hyaline Casts Urine Osmolality Ur Random Sodium Urine Opiates Screen Ur Buprenorphine Scrn Ur Oxycodone Screen Urine Methadone Screen Urine Fentanyl Screen Ur Barbiturates Screen Carbamazepine Ur Phencyclidine Scrn Ur Amphetamines Screen U Benzodiazepines Scrn Urine Cocaine Screen U Marijuana (THC) Screen COVID-19 ([facility]ESA) COVID-19 Clin Com Influenza Type A (AMANDA) Influenza Type B (AMANDA) Influenza A & B Note TB Test (T-Spot) Com TB Test Nil Control TB Test Panel A TB Test Panel B TB Test Positive [facility] 11/06/24 11/07/24 11/07/24 21:20 06:20 10:45 WBC RBC Hgb Hct MCV MCH MCHC RDW Plt Count MPV Immature Gran % (Auto) Neut % (Auto) Lymph % (Auto) [place] % (Auto) Eos % (Auto) Baso % (Auto) Lymph # (Auto) [place] # (Auto) Eos # (Auto) Baso # (Auto) Abs Immat Gran (auto) Absolute Neuts (auto) Absolute Nucleated RBC Nucleated RBC % (auto) Smear Tech's Comments Hold Purple Top VBG pH VBG pCO2 VBG pO2 VBG HCO3 VBG O2 Saturation VBG Base Excess Sodium Potassium Chloride Carbon Dioxide Anion Gap BUN Creatinine Estim Creat Clear Calc Estimated GFR POC Glucose 82 125 H 159 H Random Glucose Estimat Average Glucose Hemoglobin A1c % Osmolality Lactic Acid Calcium Magnesium Iron TIBC % Saturation Unsat Iron Binding Total Bilirubin AST ALT Alkaline Phosphatase Total Protein Albumin Triglycerides Cholesterol LDL Cholesterol, Calc HDL Cholesterol Lipase TSH Free T4 Urine Color Urine Appearance Urine pH Ur Specific [place] Urine Protein Urine Glucose (UA) Urine Ketones Urine Blood Urine Nitrite Ur Leukocyte Esterase Urine RBC Urine WBC Ur Squamous Epith Cells Urine Bacteria Hyaline Casts Urine Osmolality Ur Random Sodium Urine Opiates Screen Ur Buprenorphine Scrn Ur Oxycodone Screen Urine Methadone Screen Urine Fentanyl Screen Ur Barbiturates Screen Carbamazepine Ur Phencyclidine Scrn Ur Amphetamines Screen U Benzodiazepines Scrn Urine Cocaine Screen U Marijuana (THC) Screen COVID-19 ([facility]ES[facility]) COVID-19 Clin Com Influenza Type A (AMANDA) Influenza Type B (AMANDA) Influenza A & B Note TB Test (T-Spot) Com TB Test Nil Control TB Test Panel A TB Test Panel B TB Test Positive [facility] 11/07/24 11/07/24 11/08/24 16:17 20:21 06:25 WBC RBC Hgb Hct MCV MCH MCHC RDW Plt Count MPV Immature Gran % (Auto) Neut % (Auto) Lymph % (Auto) [place] % (Auto) Eos % (Auto) Baso % (Auto) Lymph # (Auto) [place] # (Auto) Eos # (Auto) Baso # (Auto) Abs Immat Gran (auto) Absolute Neuts (auto) Absolute Nucleated RBC Nucleated RBC % (auto) Smear Tech's Comments Hold Purple Top VBG pH VBG pCO2 VBG pO2 VBG HCO3 VBG O2 Saturation VBG Base Excess Sodium Potassium Chloride Carbon Dioxide Anion Gap BUN Creatinine Estim Creat Clear Calc Estimated GFR POC Glucose 115 142 H 147 H Random Glucose Estimat Average Glucose Hemoglobin A1c % Osmolality Lactic Acid Calcium Magnesium Iron TIBC % Saturation Unsat Iron Binding Total Bilirubin AST ALT Alkaline Phosphatase Total Protein Albumin Triglycerides Cholesterol LDL Cholesterol, Calc HDL Cholesterol Lipase TSH Free T4 Urine Color Urine Appearance Urine pH Ur Specific [place] Urine Protein Urine Glucose (UA) Urine Ketones Urine Blood Urine Nitrite Ur Leukocyte Esterase Urine RBC Urine WBC Ur Squamous Epith Cells Urine Bacteria Hyaline Casts Urine Osmolality Ur Random Sodium Urine Opiates Screen Ur Buprenorphine Scrn Ur Oxycodone Screen Urine Methadone Screen Urine Fentanyl Screen Ur Barbiturates Screen Carbamazepine Ur Phencyclidine Scrn Ur Amphetamines Screen U Benzodiazepines Scrn Urine Cocaine Screen U Marijuana (THC) Screen COVID-19 ([facility]ESA) COVID-19 Clin Com Influenza Type A (AMANDA) Influenza Type B (AMANDA) Influenza A & B Note TB Test (T-Spot) Com TB Test Nil Control TB Test Panel A TB Test Panel B TB Test Positive [facility] 11/08/24 11/08/24 11/08/24 11:07 16:51 21:23 WBC RBC Hgb Hct MCV MCH MCHC RDW Plt Count MPV Immature Gran % (Auto) Neut % (Auto) Lymph % (Auto) [place] % (Auto) Eos % (Auto) Baso % (Auto) Lymph # (Auto) [place] # (Auto) Eos # (Auto) Baso # (Auto) Abs Immat Gran (auto) Absolute Neuts (auto) Absolute Nucleated RBC Nucleated RBC % (auto) Smear Tech's Comments Hold Purple Top VBG pH VBG pCO2 VBG pO2 VBG HCO3 VBG O2 Saturation VBG Base Excess Sodium Potassium Chloride Carbon Dioxide Anion Gap BUN Creatinine Estim Creat Clear Calc Estimated GFR POC Glucose 245 H 115 255 H Random Glucose Estimat Average Glucose Hemoglobin A1c % Osmolality Lactic Acid Calcium Magnesium Iron TIBC % Saturation Unsat Iron Binding Total Bilirubin AST ALT Alkaline Phosphatase Total Protein Albumin Triglycerides Cholesterol LDL Cholesterol, Calc HDL Cholesterol Lipase TSH Free T4 Urine Color Urine Appearance Urine pH Ur Specific [place] Urine Protein Urine Glucose (UA) Urine Ketones Urine Blood Urine Nitrite Ur Leukocyte Esterase Urine RBC Urine WBC Ur Squamous Epith Cells Urine Bacteria Hyaline Casts Urine Osmolality Ur Random Sodium Urine Opiates Screen Ur Buprenorphine Scrn Ur Oxycodone Screen Urine Methadone Screen Urine Fentanyl Screen Ur Barbiturates Screen Carbamazepine Ur Phencyclidine Scrn Ur Amphetamines Screen U Benzodiazepines Scrn Urine Cocaine Screen U Marijuana (THC) Screen COVID-19 (TRESA) COVID-19 Clin Com Influenza Type A (AMANDA) Influenza Type B (AMANDA) Influenza A & B Note TB Test (T-Spot) Com TB Test Nil Control TB Test Panel A TB Test Panel B TB Test Positive Cntr 11/09/24 11/09/24 11/09/24 06:39 11:02 16:04 WBC RBC Hgb Hct MCV MCH MCHC RDW Plt Count MPV Immature Gran % (Auto) Neut % (Auto) Lymph % (Auto) [place] % (Auto) Eos % (Auto) Baso % (Auto) Lymph # (Auto) [place] # (Auto) Eos # (Auto) Baso # (Auto) Abs Immat Gran (auto) Absolute Neuts (auto) Absolute Nucleated RBC Nucleated RBC % (auto) Smear Tech's Comments Hold Purple Top VBG pH VBG pCO2 VBG pO2 VBG HCO3 VBG O2 Saturation VBG Base Excess Sodium Potassium Chloride Carbon Dioxide Anion Gap BUN Creatinine Estim Creat Clear Calc Estimated GFR POC Glucose 137 H 302 H 77 Random Glucose Estimat Average Glucose Hemoglobin A1c % Osmolality Lactic Acid Calcium Magnesium Iron TIBC % Saturation Unsat Iron Binding Total Bilirubin AST ALT Alkaline Phosphatase Total Protein Albumin Triglycerides Cholesterol LDL Cholesterol, Calc HDL Cholesterol Lipase TSH Free T4 Urine Color Urine Appearance Urine pH Ur Specific [place] Urine Protein Urine Glucose (UA) Urine Ketones Urine Blood Urine Nitrite Ur Leukocyte Esterase Urine RBC Urine WBC Ur Squamous Epith Cells Urine Bacteria Hyaline Casts Urine Osmolality Ur Random Sodium Urine Opiates Screen Ur Buprenorphine Scrn Ur Oxycodone Screen Urine Methadone Screen Urine Fentanyl Screen Ur Barbiturates Screen Carbamazepine Ur Phencyclidine Scrn Ur Amphetamines Screen U Benzodiazepines Scrn Urine Cocaine Screen U Marijuana (THC) Screen COVID-19 ([facility]ESA) COVID-19 Clin Com Influenza Type A (AMANDA) Influenza Type B (AMANDA) Influenza A & B Note TB Test (T-Spot) Com TB Test Nil Control TB Test Panel A TB Test Panel B TB Test Positive Cntr 11/09/24 11/10/24 11/10/24 20:29 06:37 11:29 WBC RBC Hgb Hct MCV MCH MCHC RDW Plt Count MPV Immature Gran % (Auto) Neut % (Auto) Lymph % (Auto) [place] % (Auto) Eos % (Auto) Baso % (Auto) Lymph # (Auto) [place] # (Auto) Eos # (Auto) Baso # (Auto) Abs Immat Gran (auto) Absolute Neuts (auto) Absolute Nucleated RBC Nucleated RBC % (auto) Smear Tech's Comments Hold Purple Top VBG pH VBG pCO2 VBG pO2 VBG HCO3 VBG O2 Saturation VBG Base Excess Sodium Potassium Chloride Carbon Dioxide Anion Gap BUN Creatinine Estim Creat Clear Calc Estimated GFR POC Glucose 242 H 187 H 230 H Random Glucose Estimat Average Glucose Hemoglobin A1c % Osmolality Lactic Acid Calcium Magnesium Iron TIBC % Saturation Unsat Iron Binding Total Bilirubin AST ALT Alkaline Phosphatase Total Protein Albumin Triglycerides Cholesterol LDL Cholesterol, Calc HDL Cholesterol Lipase TSH Free T4 Urine Color Urine Appearance Urine pH Ur Specific [place] Urine Protein Urine Glucose (UA) Urine Ketones Urine Blood Urine Nitrite Ur Leukocyte Esterase Urine RBC Urine WBC Ur Squamous Epith Cells Urine Bacteria Hyaline Casts Urine Osmolality Ur Random Sodium Urine Opiates Screen Ur Buprenorphine Scrn Ur Oxycodone Screen Urine Methadone Screen Urine Fentanyl Screen Ur Barbiturates Screen Carbamazepine Ur Phencyclidine Scrn Ur Amphetamines Screen U Benzodiazepines Scrn Urine Cocaine Screen U Marijuana (THC) Screen COVID-19 ([facility]ESA) COVID-19 Clin Com Influenza Type A (AMANDA) Influenza Type B (AMANDA) Influenza A & B Note TB Test (T-Spot) Com TB Test Nil Control TB Test Panel A TB Test Panel B TB Test Positive Cntr 11/10/24 11/10/24 11/11/24 16:24 20:05 06:32 WBC RBC Hgb Hct MCV MCH MCHC RDW Plt Count MPV Immature Gran % (Auto) Neut % (Auto) Lymph % (Auto) [place] % (Auto) Eos % (Auto) Baso % (Auto) Lymph # (Auto) [place] # (Auto) Eos # (Auto) Baso # (Auto) Abs Immat Gran (auto) Absolute Neuts (auto) Absolute Nucleated RBC Nucleated RBC % (auto) Smear Tech's Comments Hold Purple Top VBG pH VBG pCO2 VBG pO2 VBG HCO3 VBG O2 Saturation VBG Base Excess Sodium Potassium Chloride Carbon Dioxide Anion Gap BUN Creatinine Estim Creat Clear Calc Estimated GFR POC Glucose 105 126 H 159 H Random Glucose Estimat Average Glucose Hemoglobin A1c % Osmolality Lactic Acid Calcium Magnesium Iron TIBC % Saturation Unsat Iron Binding Total Bilirubin AST ALT Alkaline Phosphatase Total Protein Albumin Triglycerides Cholesterol LDL Cholesterol, Calc HDL Cholesterol Lipase TSH Free T4 Urine Color Urine Appearance Urine pH Ur Specific [place] Urine Protein Urine Glucose (UA) Urine Ketones Urine Blood Urine Nitrite Ur Leukocyte Esterase Urine RBC Urine WBC Ur Squamous Epith Cells Urine Bacteria Hyaline Casts Urine Osmolality Ur Random Sodium Urine Opiates Screen Ur Buprenorphine Scrn Ur Oxycodone Screen Urine Methadone Screen Urine Fentanyl Screen Ur Barbiturates Screen Carbamazepine Ur Phencyclidine Scrn Ur Amphetamines Screen U Benzodiazepines Scrn Urine Cocaine Screen U Marijuana (THC) Screen COVID-19 ([facility]ES[facility]) COVID-19 Clin Com Influenza Type A (AMANDA) Influenza Type B (AMANDA) Influenza A & B Note TB Test (T-Spot) Com TB Test Nil Control TB Test Panel A TB Test Panel B TB Test Positive Cntrl 11/11/24 11/11/24 11/11/24 11:17 16:17 20:14 WBC RBC Hgb Hct MCV MCH MCHC RDW Plt Count MPV Immature Gran % (Auto) Neut % (Auto) Lymph % (Auto) [place] % (Auto) Eos % (Auto) Baso % (Auto) Lymph # (Auto) [place] # (Auto) Eos # (Auto) Baso # (Auto) Abs Immat Gran (auto) Absolute Neuts (auto) Absolute Nucleated RBC Nucleated RBC % (auto) Smear Tech's Comments Hold Purple Top VBG pH VBG pCO2 VBG pO2 VBG HCO3 VBG O2 Saturation VBG Base Excess Sodium Potassium Chloride Carbon Dioxide Anion Gap BUN Creatinine Estim Creat Clear Calc Estimated GFR POC Glucose 140 H 130 H 194 H Random Glucose Estimat Average Glucose Hemoglobin A1c % Osmolality Lactic Acid Calcium Magnesium Iron TIBC % Saturation Unsat Iron Binding Total Bilirubin AST ALT Alkaline Phosphatase Total Protein Albumin Triglycerides Cholesterol LDL Cholesterol, Calc HDL Cholesterol Lipase TSH Free T4 Urine Color Urine Appearance Urine pH Ur Specific [place] Urine Protein Urine Glucose (UA) Urine Ketones Urine Blood Urine Nitrite Ur Leukocyte Esterase Urine RBC Urine WBC Ur Squamous Epith Cells Urine Bacteria Hyaline Casts Urine Osmolality Ur Random Sodium Urine Opiates Screen Ur Buprenorphine Scrn Ur Oxycodone Screen Urine Methadone Screen Urine Fentanyl Screen Ur Barbiturates Screen Carbamazepine Ur Phencyclidine Scrn Ur Amphetamines Screen U Benzodiazepines Scrn Urine Cocaine Screen U Marijuana (THC) Screen COVID-19 ([facility]ESA) COVID-19 Clin Com Influenza Type A (AMANDA) Influenza Type B (AMANDA) Influenza A & B Note TB Test (T-Spot) Com TB Test Nil Control TB Test Panel A TB Test Panel B TB Test Positive Cntr 11/12/24 11/12/24 11/12/24 06:32 11:19 16:20 WBC RBC Hgb Hct MCV MCH MCHC RDW Plt Count MPV Immature Gran % (Auto) Neut % (Auto) Lymph % (Auto) [place] % (Auto) Eos % (Auto) Baso % (Auto) Lymph # (Auto) [place] # (Auto) Eos # (Auto) Baso # (Auto) Abs Immat Gran (auto) Absolute Neuts (auto) Absolute Nucleated RBC Nucleated RBC % (auto) Smear Tech's Comments Hold Purple Top VBG pH VBG pCO2 VBG pO2 VBG HCO3 VBG O2 Saturation VBG Base Excess Sodium Potassium Chloride Carbon Dioxide Anion Gap BUN Creatinine Estim Creat Clear Calc Estimated GFR POC Glucose 171 H 121 H 170 H Random Glucose Estimat Average Glucose Hemoglobin A1c % Osmolality Lactic Acid Calcium Magnesium Iron TIBC % Saturation Unsat Iron Binding Total Bilirubin AST ALT Alkaline Phosphatase Total Protein Albumin Triglycerides Cholesterol LDL Cholesterol, Calc HDL Cholesterol Lipase TSH Free T4 Urine Color Urine Appearance Urine pH Ur Specific [place] Urine Protein Urine Glucose (UA) Urine Ketones Urine Blood Urine Nitrite Ur Leukocyte Esterase Urine RBC Urine WBC Ur Squamous Epith Cells Urine Bacteria Hyaline Casts Urine Osmolality Ur Random Sodium Urine Opiates Screen Ur Buprenorphine Scrn Ur Oxycodone Screen Urine Methadone Screen Urine Fentanyl Screen Ur Barbiturates Screen Carbamazepine Ur Phencyclidine Scrn Ur Amphetamines Screen U Benzodiazepines Scrn Urine Cocaine Screen U Marijuana (THC) Screen COVID-19 ([facility]) COVID-19 Clin Com Influenza Type A (AMANDA) Influenza Type B (AMANDA) Influenza A & B Note TB Test (T-Spot) Com TB Test Nil Control TB Test Panel A TB Test Panel B TB Test Positive [facility] 11/13/24 11/13/24 11/13/24 06:41 09:09 11:20 WBC RBC Hgb Hct MCV MCH MCHC RDW Plt Count MPV Immature Gran % (Auto) Neut % (Auto) Lymph % (Auto) [place] % (Auto) Eos % (Auto) Baso % (Auto) Lymph # (Auto) [place] # (Auto) Eos # (Auto) Baso # (Auto) Abs Immat Gran (auto) Absolute Neuts (auto) Absolute Nucleated RBC Nucleated RBC % (auto) Smear Tech's Comments Hold Purple Top VBG pH VBG pCO2 VBG pO2 VBG HCO3 VBG O2 Saturation VBG Base Excess Sodium Potassium Chloride Carbon Dioxide Anion Gap BUN Creatinine Estim Creat Clear Calc Estimated GFR POC Glucose 173 H 181 H Random Glucose Estimat Average Glucose Hemoglobin A1c % Osmolality Lactic Acid Calcium Magnesium Iron TIBC % Saturation Unsat Iron Binding Total Bilirubin AST ALT Alkaline Phosphatase Total Protein Albumin Triglycerides Cholesterol LDL Cholesterol, Calc HDL Cholesterol Lipase TSH Free T4 Urine Color Urine Appearance Urine pH Ur Specific [place] Urine Protein Urine Glucose (UA) Urine Ketones Urine Blood Urine Nitrite Ur Leukocyte Esterase Urine RBC Urine WBC Ur Squamous Epith Cells Urine Bacteria Hyaline Casts Urine Osmolality Ur Random Sodium Urine Opiates Screen Ur Buprenorphine Scrn Ur Oxycodone Screen Urine Methadone Screen Urine Fentanyl Screen Ur Barbiturates Screen Carbamazepine 9.1 Ur Phencyclidine Scrn Ur Amphetamines Screen U Benzodiazepines Scrn Urine Cocaine Screen U Marijuana (THC) Screen COVID-19 ([facility]A) COVID-19 Clin Com Influenza Type A (AMANDA) Influenza Type B (AMANDA) Influenza A & B Note TB Test (T-Spot) Com TB Test Nil Control TB Test Panel A TB Test Panel B TB Test Positive Cntrl 11/13/24 11/13/24 11/13/24 11:27 11:30 15:40 WBC RBC Hgb Hct MCV MCH MCHC RDW Plt Count MPV Immature Gran % (Auto) Neut % (Auto) Lymph % (Auto) [place] % (Auto) Eos % (Auto) Baso % (Auto) Lymph # (Auto) [place] # (Auto) Eos # (Auto) Baso # (Auto) Abs Immat Gran (auto) Absolute Neuts (auto) Absolute Nucleated RBC Nucleated RBC % (auto) Smear Tech's Comments Hold Purple Top SEE NOTE VBG pH VBG pCO2 VBG pO2 VBG HCO3 VBG O2 Saturation VBG Base Excess Sodium 127 L Potassium 4.8 Chloride 95 L Carbon Dioxide 24 Anion Gap 13 BUN 21 H Creatinine 0.85 Estim Creat Clear Calc 39.5 Estimated GFR > 60 POC Glucose Random Glucose 191 H Estimat Average Glucose Hemoglobin A1c % Osmolality 271 L Lactic Acid Calcium 9.4 Magnesium Iron TIBC % Saturation Unsat Iron Binding Total Bilirubin 0.5 AST 16 ALT 21 Alkaline Phosphatase 68 Total Protein 7.2 Albumin 4.6 Triglycerides Cholesterol LDL Cholesterol, Calc HDL Cholesterol Lipase TSH Free T4 Urine Color Urine Appearance Urine pH Ur Specific [place] Urine Protein Urine Glucose (UA) Urine Ketones Urine Blood Urine Nitrite Ur Leukocyte Esterase Urine RBC Urine WBC Ur Squamous Epith Cells Urine Bacteria Hyaline Casts Urine Osmolality Ur Random Sodium Urine Opiates Screen Ur Buprenorphine Scrn Ur Oxycodone Screen Urine Methadone Screen Urine Fentanyl Screen Ur Barbiturates Screen Carbamazepine Ur Phencyclidine Scrn Ur Amphetamines Screen U Benzodiazepines Scrn Urine Cocaine Screen U Marijuana (THC) Screen COVID-19 ([facility]) COVID-19 Clin Com Influenza Type A (AMANDA) Influenza Type B (AMANDA) Influenza A & B Note TB Test (T-Spot) Com TB Test Nil Control TB Test Panel A TB Test Panel B TB Test Positive Cntrl 11/13/24 11/13/24 11/13/24 16:06 17:02 20:40 WBC RBC Hgb Hct MCV MCH MCHC RDW Plt Count MPV Immature Gran % (Auto) Neut % (Auto) Lymph % (Auto) [place] % (Auto) Eos % (Auto) Baso % (Auto) Lymph # (Auto) [place] # (Auto) Eos # (Auto) Baso # (Auto) Abs Immat Gran (auto) Absolute Neuts (auto) Absolute Nucleated RBC Nucleated RBC % (auto) Smear Tech's Comments Hold Purple Top VBG pH VBG pCO2 VBG pO2 VBG HCO3 VBG O2 Saturation VBG Base Excess Sodium Potassium Chloride Carbon Dioxide Anion Gap BUN Creatinine Estim Creat Clear Calc Estimated GFR POC Glucose 177 H 179 H Random Glucose Estimat Average Glucose Hemoglobin A1c % Osmolality Lactic Acid Calcium Magnesium Iron TIBC % Saturation Unsat Iron Binding Total Bilirubin AST ALT Alkaline Phosphatase Total Protein Albumin Triglycerides Cholesterol LDL Cholesterol, Calc HDL Cholesterol Lipase TSH Free T4 Urine Color Urine Appearance Urine pH Ur Specific [place] Urine Protein Urine Glucose (UA) Urine Ketones Urine Blood Urine Nitrite Ur Leukocyte Esterase Urine RBC Urine WBC Ur Squamous Epith Cells Urine Bacteria Hyaline Casts Urine Osmolality 485 Ur Random Sodium 41.0 Urine Opiates Screen Ur Buprenorphine Scrn Ur Oxycodone Screen Urine Methadone Screen Urine Fentanyl Screen Ur Barbiturates Screen Carbamazepine Ur Phencyclidine Scrn Ur Amphetamines Screen U Benzodiazepines Scrn Urine Cocaine Screen U Marijuana (THC) Screen COVID-19 ([facility]) COVID-19 Clin Com Influenza Type A (MAANDA) Influenza Type B (AMANDA) Influenza A & B Note TB Test (T-Spot) Com TB Test Nil Control TB Test Panel A TB Test Panel B TB Test Positive Cntrl 11/14/24 11/14/24 11/14/24 06:25 07:19 11:34 WBC RBC Hgb Hct MCV MCH MCHC RDW Plt Count MPV Immature Gran % (Auto) Neut % (Auto) Lymph % (Auto) [place] % (Auto) Eos % (Auto) Baso % (Auto) Lymph # (Auto) [place] # (Auto) Eos # (Auto) Baso # (Auto) Abs Immat Gran (auto) Absolute Neuts (auto) Absolute Nucleated RBC Nucleated RBC % (auto) Smear Tech's Comments Hold Purple Top VBG pH VBG pCO2 VBG pO2 VBG HCO3 VBG O2 Saturation VBG Base Excess Sodium 132 L Potassium 5.0 Chloride 97 Carbon Dioxide 27 Anion Gap 13 BUN 26 H Creatinine 0.93 Estim Creat Clear Calc 36.1 Estimated GFR 59 POC Glucose 170 H 132 H Random Glucose 193 H Estimat Average Glucose Hemoglobin A1c % Osmolality Lactic Acid Calcium 9.5 Magnesium Iron TIBC % Saturation Unsat Iron Binding Total Bilirubin AST ALT Alkaline Phosphatase Total Protein Albumin Triglycerides Cholesterol LDL Cholesterol, Calc HDL Cholesterol Lipase TSH Free T4 Urine Color Urine Appearance Urine pH Ur Specific [place] Urine Protein Urine Glucose (UA) Urine Ketones Urine Blood Urine Nitrite Ur Leukocyte Esterase Urine RBC Urine WBC Ur Squamous Epith Cells Urine Bacteria Hyaline Casts Urine Osmolality Ur Random Sodium Urine Opiates Screen Ur Buprenorphine Scrn Ur Oxycodone Screen Urine Methadone Screen Urine Fentanyl Screen Ur Barbiturates Screen Carbamazepine Ur Phencyclidine Scrn Ur Amphetamines Screen U Benzodiazepines Scrn Urine Cocaine Screen U Marijuana (THC) Screen COVID-19 ([facility]ES[facility]) COVID-19 Clin Com Influenza Type A (AMANDA) Influenza Type B (AMANDA) Influenza A & B Note TB Test (T-Spot) Com TB Test Nil Control TB Test Panel A TB Test Panel B TB Test Positive [facility] 11/14/24 11/14/24 11/15/24 15:59 20:36 06:24 WBC RBC Hgb Hct MCV MCH MCHC RDW Plt Count MPV Immature Gran % (Auto) Neut % (Auto) Lymph % (Auto) [place] % (Auto) Eos % (Auto) Baso % (Auto) Lymph # (Auto) [place] # (Auto) Eos # (Auto) Baso # (Auto) Abs Immat Gran (auto) Absolute Neuts (auto) Absolute Nucleated RBC Nucleated RBC % (auto) Smear Tech's Comments Hold Purple Top VBG pH VBG pCO2 VBG pO2 VBG HCO3 VBG O2 Saturation VBG Base Excess Sodium Potassium Chloride Carbon Dioxide Anion Gap BUN Creatinine Estim Creat Clear Calc Estimated GFR POC Glucose 199 H 98 199 H Random Glucose Estimat Average Glucose Hemoglobin A1c % Osmolality Lactic Acid Calcium Magnesium Iron TIBC % Saturation Unsat Iron Binding Total Bilirubin AST ALT Alkaline Phosphatase Total Protein Albumin Triglycerides Cholesterol LDL Cholesterol, Calc HDL Cholesterol Lipase TSH Free T4 Urine Color Urine Appearance Urine pH Ur Specific [place] Urine Protein Urine Glucose (UA) Urine Ketones Urine Blood Urine Nitrite Ur Leukocyte Esterase Urine RBC Urine WBC Ur Squamous Epith Cells Urine Bacteria Hyaline Casts Urine Osmolality Ur Random Sodium Urine Opiates Screen Ur Buprenorphine Scrn Ur Oxycodone Screen Urine Methadone Screen Urine Fentanyl Screen Ur Barbiturates Screen Carbamazepine Ur Phencyclidine Scrn Ur Amphetamines Screen U Benzodiazepines Scrn Urine Cocaine Screen U Marijuana (THC) Screen COVID-19 ([facility]ES[facility]) COVID-19 Clin Com Influenza Type A (AMANDA) Influenza Type B (AMANDA) Influenza A & B Note TB Test (T-Spot) Com TB Test Nil Control TB Test Panel A TB Test Panel B TB Test Positive Cntrl 11/15/24 11/15/24 11/15/24 11:35 16:20 20:49 WBC RBC Hgb Hct MCV MCH MCHC RDW Plt Count MPV Immature Gran % (Auto) Neut % (Auto) Lymph % (Auto) [place] % (Auto) Eos % (Auto) Baso % (Auto) Lymph # (Auto) [place] # (Auto) Eos # (Auto) Baso # (Auto) Abs Immat Gran (auto) Absolute Neuts (auto) Absolute Nucleated RBC Nucleated RBC % (auto) Smear Tech's Comments Hold Purple Top VBG pH VBG pCO2 VBG pO2 VBG HCO3 VBG O2 Saturation VBG Base Excess Sodium Potassium Chloride Carbon Dioxide Anion Gap BUN Creatinine Estim Creat Clear Calc Estimated GFR POC Glucose 155 H 143 H 138 H Random Glucose Estimat Average Glucose Hemoglobin A1c % Osmolality Lactic Acid Calcium Magnesium Iron TIBC % Saturation Unsat Iron Binding Total Bilirubin AST ALT Alkaline Phosphatase Total Protein Albumin Triglycerides Cholesterol LDL Cholesterol, Calc HDL Cholesterol Lipase TSH Free T4 Urine Color Urine Appearance Urine pH Ur Specific [place] Urine Protein Urine Glucose (UA) Urine Ketones Urine Blood Urine Nitrite Ur Leukocyte Esterase Urine RBC Urine WBC Ur Squamous Epith Cells Urine Bacteria Hyaline Casts Urine Osmolality Ur Random Sodium Urine Opiates Screen Ur Buprenorphine Scrn Ur Oxycodone Screen Urine Methadone Screen Urine Fentanyl Screen Ur Barbiturates Screen Carbamazepine Ur Phencyclidine Scrn Ur Amphetamines Screen U Benzodiazepines Scrn Urine Cocaine Screen U Marijuana (THC) Screen COVID-19 ([facility]ES[facility]) COVID-19 Clin Com Influenza Type A (AMANDA) Influenza Type B (AMANDA) Influenza A & B Note TB Test (T-Spot) Com TB Test Nil Control TB Test Panel A TB Test Panel B TB Test Positive [facility] 11/16/24 11/16/24 11/16/24 06:35 11:24 13:55 WBC RBC Hgb Hct MCV MCH MCHC RDW Plt Count MPV Immature Gran % (Auto) Neut % (Auto) Lymph % (Auto) [place] % (Auto) Eos % (Auto) Baso % (Auto) Lymph # (Auto) [place] # (Auto) Eos # (Auto) Baso # (Auto) Abs Immat Gran (auto) Absolute Neuts (auto) Absolute Nucleated RBC Nucleated RBC % (auto) Smear Tech's Comments Hold Purple Top VBG pH VBG pCO2 VBG pO2 VBG HCO3 VBG O2 Saturation VBG Base Excess Sodium 134 L Potassium 4.7 Chloride 99 Carbon Dioxide 25 Anion Gap 15 BUN 21 H Creatinine 0.87 Estim Creat Clear Calc 38.7 Estimated GFR > 60 POC Glucose 192 H 152 H Random Glucose 58 L* Estimat Average Glucose Hemoglobin A1c % Osmolality Lactic Acid Calcium 9.6 Magnesium Iron TIBC % Saturation Unsat Iron Binding Total Bilirubin AST ALT Alkaline Phosphatase Total Protein Albumin Triglycerides Cholesterol LDL Cholesterol, Calc HDL Cholesterol Lipase TSH Free T4 Urine Color Urine Appearance Urine pH Ur Specific [place] Urine Protein Urine Glucose (UA) Urine Ketones Urine Blood Urine Nitrite Ur Leukocyte Esterase Urine RBC Urine WBC Ur Squamous Epith Cells Urine Bacteria Hyaline Casts Urine Osmolality Ur Random Sodium Urine Opiates Screen Ur Buprenorphine Scrn Ur Oxycodone Screen Urine Methadone Screen Urine Fentanyl Screen Ur Barbiturates Screen Carbamazepine Ur Phencyclidine Scrn Ur Amphetamines Screen U Benzodiazepines Scrn Urine Cocaine Screen U Marijuana (THC) Screen COVID-19 (TRESA) COVID-19 Clin Com Influenza Type A (AMANDA) Influenza Type B (AMANDA) Influenza A & B Note TB Test (T-Spot) Com TB Test Nil Control TB Test Panel A TB Test Panel B TB Test Positive [facility] 11/16/24 11/16/24 11/16/24 14:34 16:22 20:02 WBC RBC Hgb Hct MCV MCH MCHC RDW Plt Count MPV Immature Gran % (Auto) Neut % (Auto) Lymph % (Auto) [place] % (Auto) Eos % (Auto) Baso % (Auto) Lymph # (Auto) [place] # (Auto) Eos # (Auto) Baso # (Auto) Abs Immat Gran (auto) Absolute Neuts (auto) Absolute Nucleated RBC Nucleated RBC % (auto) Smear Tech's Comments Hold Purple Top VBG pH VBG pCO2 VBG pO2 VBG HCO3 VBG O2 Saturation VBG Base Excess Sodium Potassium Chloride Carbon Dioxide Anion Gap BUN Creatinine Estim Creat Clear Calc Estimated GFR POC Glucose 69 126 H 141 H Random Glucose Estimat Average Glucose Hemoglobin A1c % Osmolality Lactic Acid Calcium Magnesium Iron TIBC % Saturation Unsat Iron Binding Total Bilirubin AST ALT Alkaline Phosphatase Total Protein Albumin Triglycerides Cholesterol LDL Cholesterol, Calc HDL Cholesterol Lipase TSH Free T4 Urine Color Urine Appearance Urine pH Ur Specific [place] Urine Protein Urine Glucose (UA) Urine Ketones Urine Blood Urine Nitrite Ur Leukocyte Esterase Urine RBC Urine WBC Ur Squamous Epith Cells Urine Bacteria Hyaline Casts Urine Osmolality Ur Random Sodium Urine Opiates Screen Ur Buprenorphine Scrn Ur Oxycodone Screen Urine Methadone Screen Urine Fentanyl Screen Ur Barbiturates Screen Carbamazepine Ur Phencyclidine Scrn Ur Amphetamines Screen U Benzodiazepines Scrn Urine Cocaine Screen U Marijuana (THC) Screen COVID-19 ([facility]ESA) COVID-19 Clin Com Influenza Type A (AMANDA) Influenza Type B (AMANDA) Influenza A & B Note TB Test (T-Spot) Com TB Test Nil Control TB Test Panel A TB Test Panel B TB Test Positive Cnt 11/17/24 11/17/24 11/17/24 06:32 11:12 14:40 WBC RBC Hgb Hct MCV MCH MCHC RDW Plt Count MPV Immature Gran % (Auto) Neut % (Auto) Lymph % (Auto) [place] % (Auto) Eos % (Auto) Baso % (Auto) Lymph # (Auto) [place] # (Auto) Eos # (Auto) Baso # (Auto) Abs Immat Gran (auto) Absolute Neuts (auto) Absolute Nucleated RBC Nucleated RBC % (auto) Smear Tech's Comments Hold Purple Top VBG pH VBG pCO2 VBG pO2 VBG HCO3 VBG O2 Saturation VBG Base Excess Sodium Potassium Chloride Carbon Dioxide Anion Gap BUN Creatinine Estim Creat Clear Calc Estimated GFR POC Glucose 177 H 184 H 149 H Random Glucose Estimat Average Glucose Hemoglobin A1c % Osmolality Lactic Acid Calcium Magnesium Iron TIBC % Saturation Unsat Iron Binding Total Bilirubin AST ALT Alkaline Phosphatase Total Protein Albumin Triglycerides Cholesterol LDL Cholesterol, Calc HDL Cholesterol Lipase TSH Free T4 Urine Color Urine Appearance Urine pH Ur Specific [place] Urine Protein Urine Glucose (UA) Urine Ketones Urine Blood Urine Nitrite Ur Leukocyte Esterase Urine RBC Urine WBC Ur Squamous Epith Cells Urine Bacteria Hyaline Casts Urine Osmolality Ur Random Sodium Urine Opiates Screen Ur Buprenorphine Scrn Ur Oxycodone Screen Urine Methadone Screen Urine Fentanyl Screen Ur Barbiturates Screen Carbamazepine Ur Phencyclidine Scrn Ur Amphetamines Screen U Benzodiazepines Scrn Urine Cocaine Screen U Marijuana (THC) Screen COVID-19 ([facility]) COVID-19 Clin Com Influenza Type A (AMANDA) Influenza Type B (AMANDA) Influenza A & B Note TB Test (T-Spot) Com TB Test Nil Control TB Test Panel A TB Test Panel B TB Test Positive Cntrl 11/17/24 11/18/24 11/18/24 16:18 06:08 11:15 WBC RBC Hgb Hct MCV MCH MCHC RDW Plt Count MPV Immature Gran % (Auto) Neut % (Auto) Lymph % (Auto) [place] % (Auto) Eos % (Auto) Baso % (Auto) Lymph # (Auto) [place] # (Auto) Eos # (Auto) Baso # (Auto) Abs Immat Gran (auto) Absolute Neuts (auto) Absolute Nucleated RBC Nucleated RBC % (auto) Smear Tech's Comments Hold Purple Top VBG pH VBG pCO2 VBG pO2 VBG HCO3 VBG O2 Saturation VBG Base Excess Sodium Potassium Chloride Carbon Dioxide Anion Gap BUN Creatinine Estim Creat Clear Calc Estimated GFR POC Glucose 119 H 192 H 127 H Random Glucose Estimat Average Glucose Hemoglobin A1c % Osmolality Lactic Acid Calcium Magnesium Iron TIBC % Saturation Unsat Iron Binding Total Bilirubin AST ALT Alkaline Phosphatase Total Protein Albumin Triglycerides Cholesterol LDL Cholesterol, Calc HDL Cholesterol Lipase TSH Free T4 Urine Color Urine Appearance Urine pH Ur Specific [place] Urine Protein Urine Glucose (UA) Urine Ketones Urine Blood Urine Nitrite Ur Leukocyte Esterase Urine RBC Urine WBC Ur Squamous Epith Cells Urine Bacteria Hyaline Casts Urine Osmolality Ur Random Sodium Urine Opiates Screen Ur Buprenorphine Scrn Ur Oxycodone Screen Urine Methadone Screen Urine Fentanyl Screen Ur Barbiturates Screen Carbamazepine Ur Phencyclidine Scrn Ur Amphetamines Screen U Benzodiazepines Scrn Urine Cocaine Screen U Marijuana (THC) Screen COVID-19 ([facility]) COVID-19 Clin Com Influenza Type A (AMANDA) Influenza Type B (AMANDA) Influenza A & B Note TB Test (T-Spot) Com TB Test Nil Control TB Test Panel A TB Test Panel B TB Test Positive Cntrl 11/18/24 11/18/24 11/18/24 13:33 16:18 21:19 WBC RBC Hgb Hct MCV MCH MCHC RDW Plt Count MPV Immature Gran % (Auto) Neut % (Auto) Lymph % (Auto) [place] % (Auto) Eos % (Auto) Baso % (Auto) Lymph # (Auto) [place] # (Auto) Eos # (Auto) Baso # (Auto) Abs Immat Gran (auto) Absolute Neuts (auto) Absolute Nucleated RBC Nucleated RBC % (auto) Smear Tech's Comments Hold Purple Top VBG pH VBG pCO2 VBG pO2 VBG HCO3 VBG O2 Saturation VBG Base Excess Sodium 137 Potassium 4.9 Chloride 105 Carbon Dioxide 25 Anion Gap 12 BUN 27 H Creatinine 1.03 Estim Creat Clear Calc 32.6 Estimated GFR 52 POC Glucose 110 154 H Random Glucose 81 Estimat Average Glucose Hemoglobin A1c % Osmolality Lactic Acid Calcium 9.1 Magnesium Iron TIBC % Saturation Unsat Iron Binding Total Bilirubin 0.3 AST 18 ALT 26 Alkaline Phosphatase 67 Total Protein 7.1 Albumin 4.4 Triglycerides Cholesterol LDL Cholesterol, Calc HDL Cholesterol Lipase TSH Free T4 Urine Color Urine Appearance Urine pH Ur Specific [place] Urine Protein Urine Glucose (UA) Urine Ketones Urine Blood Urine Nitrite Ur Leukocyte Esterase Urine RBC Urine WBC Ur Squamous Epith Cells Urine Bacteria Hyaline Casts Urine Osmolality Ur Random Sodium Urine Opiates Screen Ur Buprenorphine Scrn Ur Oxycodone Screen Urine Methadone Screen Urine Fentanyl Screen Ur Barbiturates Screen Carbamazepine Ur Phencyclidine Scrn Ur Amphetamines Screen U Benzodiazepines Scrn Urine Cocaine Screen U Marijuana (THC) Screen COVID-19 ([facility]) COVID-19 Clin Com Influenza Type A (AMANDA) Influenza Type B (AMANDA) Influenza A & B Note TB Test (T-Spot) Com TB Test Nil Control TB Test Panel A TB Test Panel B TB Test Positive Cntr 11/19/24 11/19/24 11/19/24 06:30 11:23 15:59 WBC RBC Hgb Hct MCV MCH MCHC RDW Plt Count MPV Immature Gran % (Auto) Neut % (Auto) Lymph % (Auto) [place] % (Auto) Eos % (Auto) Baso % (Auto) Lymph # (Auto) [place] # (Auto) Eos # (Auto) Baso # (Auto) Abs Immat Gran (auto) Absolute Neuts (auto) Absolute Nucleated RBC Nucleated RBC % (auto) Smear Tech's Comments Hold Purple Top VBG pH VBG pCO2 VBG pO2 VBG HCO3 VBG O2 Saturation VBG Base Excess Sodium Potassium Chloride Carbon Dioxide Anion Gap BUN Creatinine Estim Creat Clear Calc Estimated GFR POC Glucose 178 H 157 H 110 Random Glucose Estimat Average Glucose Hemoglobin A1c % Osmolality Lactic Acid Calcium Magnesium Iron TIBC % Saturation Unsat Iron Binding Total Bilirubin AST ALT Alkaline Phosphatase Total Protein Albumin Triglycerides Cholesterol LDL Cholesterol, Calc HDL Cholesterol Lipase TSH Free T4 Urine Color Urine Appearance Urine pH Ur Specific [place] Urine Protein Urine Glucose (UA) Urine Ketones Urine Blood Urine Nitrite Ur Leukocyte Esterase Urine RBC Urine WBC Ur Squamous Epith Cells Urine Bacteria Hyaline Casts Urine Osmolality Ur Random Sodium Urine Opiates Screen Ur Buprenorphine Scrn Ur Oxycodone Screen Urine Methadone Screen Urine Fentanyl Screen Ur Barbiturates Screen Carbamazepine Ur Phencyclidine Scrn Ur Amphetamines Screen U Benzodiazepines Scrn Urine Cocaine Screen U Marijuana (THC) Screen COVID-19 ([facility]) COVID-19 Clin Com Influenza Type A (AMANDA) Influenza Type B (AMANDA) Influenza A & B Note TB Test (T-Spot) Com TB Test Nil Control TB Test Panel A TB Test Panel B TB Test Positive Cntrl 11/19/24 11/20/24 11/20/24 19:50 06:36 11:02 WBC RBC Hgb Hct MCV MCH MCHC RDW Plt Count MPV Immature Gran % (Auto) Neut % (Auto) Lymph % (Auto) [place] % (Auto) Eos % (Auto) Baso % (Auto) Lymph # (Auto) [place] # (Auto) Eos # (Auto) Baso # (Auto) Abs Immat Gran (auto) Absolute Neuts (auto) Absolute Nucleated RBC Nucleated RBC % (auto) Smear Tech's Comments Hold Purple Top VBG pH VBG pCO2 VBG pO2 VBG HCO3 VBG O2 Saturation VBG Base Excess Sodium 137 Potassium 4.7 Chloride 102 Carbon Dioxide 27 Anion Gap 13 BUN 23 H Creatinine 0.99 Estim Creat Clear Calc 34.0 Estimated GFR 55 POC Glucose 205 H 165 H Random Glucose 129 H Estimat Average Glucose 154 Hemoglobin A1c % 7.0 H Osmolality Lactic Acid Calcium 9.5 Magnesium Iron TIBC % Saturation Unsat Iron Binding Total Bilirubin AST ALT Alkaline Phosphatase Total Protein Albumin Triglycerides Cholesterol LDL Cholesterol, Calc HDL Cholesterol Lipase TSH Free T4 Urine Color Urine Appearance Urine pH Ur Specific [place] Urine Protein Urine Glucose (UA) Urine Ketones Urine Blood Urine Nitrite Ur Leukocyte Esterase Urine RBC Urine WBC Ur Squamous Epith Cells Urine Bacteria Hyaline Casts Urine Osmolality Ur Random Sodium Urine Opiates Screen Ur Buprenorphine Scrn Ur Oxycodone Screen Urine Methadone Screen Urine Fentanyl Screen Ur Barbiturates Screen Carbamazepine Ur Phencyclidine Scrn Ur Amphetamines Screen U Benzodiazepines Scrn Urine Cocaine Screen U Marijuana (THC) Screen COVID-19 ([facility]) COVID-19 Clin Com Influenza Type A (AMANDA) Influenza Type B (AMANDA) Influenza A & B Note TB Test (T-Spot) Com TB Test Nil Control TB Test Panel A TB Test Panel B TB Test Positive Cntrl 11/20/24 11/20/24 11/20/24 11:33 16:23 20:46 WBC RBC Hgb Hct MCV MCH MCHC RDW Plt Count MPV Immature Gran % (Auto) Neut % (Auto) Lymph % (Auto) [place] % (Auto) Eos % (Auto) Baso % (Auto) Lymph # (Auto) [place] # (Auto) Eos # (Auto) Baso # (Auto) Abs Immat Gran (auto) Absolute Neuts (auto) Absolute Nucleated RBC Nucleated RBC % (auto) Smear Tech's Comments Hold Purple Top VBG pH VBG pCO2 VBG pO2 VBG HCO3 VBG O2 Saturation VBG Base Excess Sodium Potassium Chloride Carbon Dioxide Anion Gap BUN Creatinine Estim Creat Clear Calc Estimated GFR POC Glucose 106 202 H 162 H Random Glucose Estimat Average Glucose Hemoglobin A1c % Osmolality Lactic Acid Calcium Magnesium Iron TIBC % Saturation Unsat Iron Binding Total Bilirubin AST ALT Alkaline Phosphatase Total Protein Albumin Triglycerides Cholesterol LDL Cholesterol, Calc HDL Cholesterol Lipase TSH Free T4 Urine Color Urine Appearance Urine pH Ur Specific [place] Urine Protein Urine Glucose (UA) Urine Ketones Urine Blood Urine Nitrite Ur Leukocyte Esterase Urine RBC Urine WBC Ur Squamous Epith Cells Urine Bacteria Hyaline Casts Urine Osmolality Ur Random Sodium Urine Opiates Screen Ur Buprenorphine Scrn Ur Oxycodone Screen Urine Methadone Screen Urine Fentanyl Screen Ur Barbiturates Screen Carbamazepine Ur Phencyclidine Scrn Ur Amphetamines Screen U Benzodiazepines Scrn Urine Cocaine Screen U Marijuana (THC) Screen COVID-19 ([facility]ESA) COVID-19 Clin Com Influenza Type A (AMANDA) Influenza Type B (AMANDA) Influenza A & B Note TB Test (T-Spot) Com TB Test Nil Control TB Test Panel A TB Test Panel B TB Test Positive [facility] 11/21/24 11/21/24 11/21/24 06:31 11:24 16:25 WBC RBC Hgb Hct MCV MCH MCHC RDW Plt Count MPV Immature Gran % (Auto) Neut % (Auto) Lymph % (Auto) [place] % (Auto) Eos % (Auto) Baso % (Auto) Lymph # (Auto) [place] # (Auto) Eos # (Auto) Baso # (Auto) Abs Immat Gran (auto) Absolute Neuts (auto) Absolute Nucleated RBC Nucleated RBC % (auto) Smear Tech's Comments Hold Purple Top VBG pH VBG pCO2 VBG pO2 VBG HCO3 VBG O2 Saturation VBG Base Excess Sodium Potassium Chloride Carbon Dioxide Anion Gap BUN Creatinine Estim Creat Clear Calc Estimated GFR POC Glucose 189 H 196 H 110 Random Glucose Estimat Average Glucose Hemoglobin A1c % Osmolality Lactic Acid Calcium Magnesium Iron TIBC % Saturation Unsat Iron Binding Total Bilirubin AST ALT Alkaline Phosphatase Total Protein Albumin Triglycerides Cholesterol LDL Cholesterol, Calc HDL Cholesterol Lipase TSH Free T4 Urine Color Urine Appearance Urine pH Ur Specific [place] Urine Protein Urine Glucose (UA) Urine Ketones Urine Blood Urine Nitrite Ur Leukocyte Esterase Urine RBC Urine WBC Ur Squamous Epith Cells Urine Bacteria Hyaline Casts Urine Osmolality Ur Random Sodium Urine Opiates Screen Ur Buprenorphine Scrn Ur Oxycodone Screen Urine Methadone Screen Urine Fentanyl Screen Ur Barbiturates Screen Carbamazepine Ur Phencyclidine Scrn Ur Amphetamines Screen U Benzodiazepines Scrn Urine Cocaine Screen U Marijuana (THC) Screen COVID-19 ([facility]ESA) COVID-19 Clin Com Influenza Type A (AMANDA) Influenza Type B (AMANDA) Influenza A & B Note TB Test (T-Spot) Com TB Test Nil Control TB Test Panel A TB Test Panel B TB Test Positive [facility] 11/21/24 11/22/24 11/22/24 21:16 06:56 11:14 WBC RBC Hgb Hct MCV MCH MCHC RDW Plt Count MPV Immature Gran % (Auto) Neut % (Auto) Lymph % (Auto) [place] % (Auto) Eos % (Auto) Baso % (Auto) Lymph # (Auto) [place] # (Auto) Eos # (Auto) Baso # (Auto) Abs Immat Gran (auto) Absolute Neuts (auto) Absolute Nucleated RBC Nucleated RBC % (auto) Smear Tech's Comments Hold Purple Top VBG pH VBG pCO2 VBG pO2 VBG HCO3 VBG O2 Saturation VBG Base Excess Sodium Potassium Chloride Carbon Dioxide Anion Gap BUN Creatinine Estim Creat Clear Calc Estimated GFR POC Glucose 138 H 195 H 224 H Random Glucose Estimat Average Glucose Hemoglobin A1c % Osmolality Lactic Acid Calcium Magnesium Iron TIBC % Saturation Unsat Iron Binding Total Bilirubin AST ALT Alkaline Phosphatase Total Protein Albumin Triglycerides Cholesterol LDL Cholesterol, Calc HDL Cholesterol Lipase TSH Free T4 Urine Color Urine Appearance Urine pH Ur Specific [place] Urine Protein Urine Glucose (UA) Urine Ketones Urine Blood Urine Nitrite Ur Leukocyte Esterase Urine RBC Urine WBC Ur Squamous Epith Cells Urine Bacteria Hyaline Casts Urine Osmolality Ur Random Sodium Urine Opiates Screen Ur Buprenorphine Scrn Ur Oxycodone Screen Urine Methadone Screen Urine Fentanyl Screen Ur Barbiturates Screen Carbamazepine Ur Phencyclidine Scrn Ur Amphetamines Screen U Benzodiazepines Scrn Urine Cocaine Screen U Marijuana (THC) Screen COVID-19 ([facility]ESA) COVID-19 Clin Com Influenza Type A (AMANDA) Influenza Type B (AMANDA) Influenza A & B Note TB Test (T-Spot) Com TB Test Nil Control TB Test Panel A TB Test Panel B TB Test Positive Cntrl 11/22/24 11/22/24 11/23/24 16:28 21:06 06:14 WBC RBC Hgb Hct MCV MCH MCHC RDW Plt Count MPV Immature Gran % (Auto) Neut % (Auto) Lymph % (Auto) [place] % (Auto) Eos % (Auto) Baso % (Auto) Lymph # (Auto) [place] # (Auto) Eos # (Auto) Baso # (Auto) Abs Immat Gran (auto) Absolute Neuts (auto) Absolute Nucleated RBC Nucleated RBC % (auto) Smear Tech's Comments Hold Purple Top VBG pH VBG pCO2 VBG pO2 VBG HCO3 VBG O2 Saturation VBG Base Excess Sodium Potassium Chloride Carbon Dioxide Anion Gap BUN Creatinine Estim Creat Clear Calc Estimated GFR POC Glucose 129 H 94 191 H Random Glucose Estimat Average Glucose Hemoglobin A1c % Osmolality Lactic Acid Calcium Magnesium Iron TIBC % Saturation Unsat Iron Binding Total Bilirubin AST ALT Alkaline Phosphatase Total Protein Albumin Triglycerides Cholesterol LDL Cholesterol, Calc HDL Cholesterol Lipase TSH Free T4 Urine Color Urine Appearance Urine pH Ur Specific [place] Urine Protein Urine Glucose (UA) Urine Ketones Urine Blood Urine Nitrite Ur Leukocyte Esterase Urine RBC Urine WBC Ur Squamous Epith Cells Urine Bacteria Hyaline Casts Urine Osmolality Ur Random Sodium Urine Opiates Screen Ur Buprenorphine Scrn Ur Oxycodone Screen Urine Methadone Screen Urine Fentanyl Screen Ur Barbiturates Screen Carbamazepine Ur Phencyclidine Scrn Ur Amphetamines Screen U Benzodiazepines Scrn Urine Cocaine Screen U Marijuana (THC) Screen COVID-19 (TRESA) COVID-19 Clin Com Influenza Type A (AMANDA) Influenza Type B (AMANDA) Influenza A & B Note TB Test (T-Spot) Com TB Test Nil Control TB Test Panel A TB Test Panel B TB Test Positive Cntr 11/23/24 11/24/24 11/25/24 11:22 06:16 06:42 WBC RBC Hgb Hct MCV MCH MCHC RDW Plt Count MPV Immature Gran % (Auto) Neut % (Auto) Lymph % (Auto) [place] % (Auto) Eos % (Auto) Baso % (Auto) Lymph # (Auto) [place] # (Auto) Eos # (Auto) Baso # (Auto) Abs Immat Gran (auto) Absolute Neuts (auto) Absolute Nucleated RBC Nucleated RBC % (auto) Smear Tech's Comments Hold Purple Top VBG pH VBG pCO2 VBG pO2 VBG HCO3 VBG O2 Saturation VBG Base Excess Sodium Potassium Chloride Carbon Dioxide Anion Gap BUN Creatinine Estim Creat Clear Calc Estimated GFR POC Glucose 188 H 184 H 167 H Random Glucose Estimat Average Glucose Hemoglobin A1c % Osmolality Lactic Acid Calcium Magnesium Iron TIBC % Saturation Unsat Iron Binding Total Bilirubin AST ALT Alkaline Phosphatase Total Protein Albumin Triglycerides Cholesterol LDL Cholesterol, Calc HDL Cholesterol Lipase TSH Free T4 Urine Color Urine Appearance Urine pH Ur Specific [place] Urine Protein Urine Glucose (UA) Urine Ketones Urine Blood Urine Nitrite Ur Leukocyte Esterase Urine RBC Urine WBC Ur Squamous Epith Cells Urine Bacteria Hyaline Casts Urine Osmolality Ur Random Sodium Urine Opiates Screen Ur Buprenorphine Scrn Ur Oxycodone Screen Urine Methadone Screen Urine Fentanyl Screen Ur Barbiturates Screen Carbamazepine Ur Phencyclidine Scrn Ur Amphetamines Screen U Benzodiazepines Scrn Urine Cocaine Screen U Marijuana (THC) Screen COVID-19 (TRESA) COVID-19 Clin Com Influenza Type A (AMANDA) Influenza Type B (AMANDA) Influenza A & B Note TB Test (T-Spot) Com TB Test Nil Control TB Test Panel A TB Test Panel B TB Test Positive Cnt 11/26/24 11/27/24 11/28/24 06:23 06:32 06:13 WBC RBC Hgb Hct MCV MCH MCHC RDW Plt Count MPV Immature Gran % (Auto) Neut % (Auto) Lymph % (Auto) [place] % (Auto) Eos % (Auto) Baso % (Auto) Lymph # (Auto) [place] # (Auto) Eos # (Auto) Baso # (Auto) Abs Immat Gran (auto) Absolute Neuts (auto) Absolute Nucleated RBC Nucleated RBC % (auto) Smear Tech's Comments Hold Purple Top VBG pH VBG pCO2 VBG pO2 VBG HCO3 VBG O2 Saturation VBG Base Excess Sodium Potassium Chloride Carbon Dioxide Anion Gap BUN Creatinine Estim Creat Clear Calc Estimated GFR POC Glucose 166 H 167 H 159 H Random Glucose Estimat Average Glucose Hemoglobin A1c % Osmolality Lactic Acid Calcium Magnesium Iron TIBC % Saturation Unsat Iron Binding Total Bilirubin AST ALT Alkaline Phosphatase Total Protein Albumin Triglycerides Cholesterol LDL Cholesterol, Calc HDL Cholesterol Lipase TSH Free T4 Urine Color Urine Appearance Urine pH Ur Specific [place] Urine Protein Urine Glucose (UA) Urine Ketones Urine Blood Urine Nitrite Ur Leukocyte Esterase Urine RBC Urine WBC Ur Squamous Epith Cells Urine Bacteria Hyaline Casts Urine Osmolality Ur Random Sodium Urine Opiates Screen Ur Buprenorphine Scrn Ur Oxycodone Screen Urine Methadone Screen Urine Fentanyl Screen Ur Barbiturates Screen Carbamazepine Ur Phencyclidine Scrn Ur Amphetamines Screen U Benzodiazepines Scrn Urine Cocaine Screen U Marijuana (THC) Screen COVID-19 (TRESA) COVID-19 Clin Com Influenza Type A (AMANDA) Influenza Type B (AMANDA) Influenza A & B Note TB Test (T-Spot) Com TB Test Nil Control TB Test Panel A TB Test Panel B TB Test Positive [facility] 11/29/24 11/30/24 12/01/24 06:16 06:16 06:37 WBC RBC Hgb Hct MCV MCH MCHC RDW Plt Count MPV Immature Gran % (Auto) Neut % (Auto) Lymph % (Auto) [place] % (Auto) Eos % (Auto) Baso % (Auto) Lymph # (Auto) [place] # (Auto) Eos # (Auto) Baso # (Auto) Abs Immat Gran (auto) Absolute Neuts (auto) Absolute Nucleated RBC Nucleated RBC % (auto) Smear Tech's Comments Hold Purple Top VBG pH VBG pCO2 VBG pO2 VBG HCO3 VBG O2 Saturation VBG Base Excess Sodium Potassium Chloride Carbon Dioxide Anion Gap BUN Creatinine Estim Creat Clear Calc Estimated GFR POC Glucose 156 H 136 H 129 H Random Glucose Estimat Average Glucose Hemoglobin A1c % Osmolality Lactic Acid Calcium Magnesium Iron TIBC % Saturation Unsat Iron Binding Total Bilirubin AST ALT Alkaline Phosphatase Total Protein Albumin Triglycerides Cholesterol LDL Cholesterol, Calc HDL Cholesterol Lipase TSH Free T4 Urine Color Urine Appearance Urine pH Ur Specific [place] Urine Protein Urine Glucose (UA) Urine Ketones Urine Blood Urine Nitrite Ur Leukocyte Esterase Urine RBC Urine WBC Ur Squamous Epith Cells Urine Bacteria Hyaline Casts Urine Osmolality Ur Random Sodium Urine Opiates Screen Ur Buprenorphine Scrn Ur Oxycodone Screen Urine Methadone Screen Urine Fentanyl Screen Ur Barbiturates Screen Carbamazepine Ur Phencyclidine Scrn Ur Amphetamines Screen U Benzodiazepines Scrn Urine Cocaine Screen U Marijuana (THC) Screen COVID-19 (TRESA) COVID-19 Clin Com Influenza Type A (AMANDA) Influenza Type B (AMANDA) Influenza A & B Note TB Test (T-Spot) Com TB Test Nil Control TB Test Panel A TB Test Panel B TB Test Positive Cntrl 12/02/24 12/03/24 12/03/24 06:24 06:17 16:25 WBC RBC Hgb Hct MCV MCH MCHC RDW Plt Count MPV Immature Gran % (Auto) Neut % (Auto) Lymph % (Auto) [place] % (Auto) Eos % (Auto) Baso % (Auto) Lymph # (Auto) [place] # (Auto) Eos # (Auto) Baso # (Auto) Abs Immat Gran (auto) Absolute Neuts (auto) Absolute Nucleated RBC Nucleated RBC % (auto) Smear Tech's Comments Hold Purple Top VBG pH VBG pCO2 VBG pO2 VBG HCO3 VBG O2 Saturation VBG Base Excess Sodium Potassium Chloride Carbon Dioxide Anion Gap BUN Creatinine Estim Creat Clear Calc Estimated GFR POC Glucose 163 H 182 H 120 H Random Glucose Estimat Average Glucose Hemoglobin A1c % Osmolality Lactic Acid Calcium Magnesium Iron TIBC % Saturation Unsat Iron Binding Total Bilirubin AST ALT Alkaline Phosphatase Total Protein Albumin Triglycerides Cholesterol LDL Cholesterol, Calc HDL Cholesterol Lipase TSH Free T4 Urine Color Urine Appearance Urine pH Ur Specific [place] Urine Protein Urine Glucose (UA) Urine Ketones Urine Blood Urine Nitrite Ur Leukocyte Esterase Urine RBC Urine WBC Ur Squamous Epith Cells Urine Bacteria Hyaline Casts Urine Osmolality Ur Random Sodium Urine Opiates Screen Ur Buprenorphine Scrn Ur Oxycodone Screen Urine Methadone Screen Urine Fentanyl Screen Ur Barbiturates Screen Carbamazepine Ur Phencyclidine Scrn Ur Amphetamines Screen U Benzodiazepines Scrn Urine Cocaine Screen U Marijuana (THC) Screen COVID-19 (TRESA) COVID-19 Clin Com Influenza Type A (AMANDA) Influenza Type B (AMANDA) Influenza A & B Note TB Test (T-Spot) Com TB Test Nil Control TB Test Panel A TB Test Panel B TB Test Positive Cntrl 12/04/24 12/05/24 12/06/24 05:52 06:00 05:54 WBC RBC Hgb Hct MCV MCH MCHC RDW Plt Count MPV Immature Gran % (Auto) Neut % (Auto) Lymph % (Auto) [place] % (Auto) Eos % (Auto) Baso % (Auto) Lymph # (Auto) [place] # (Auto) Eos # (Auto) Baso # (Auto) Abs Immat Gran (auto) Absolute Neuts (auto) Absolute Nucleated RBC Nucleated RBC % (auto) Smear Tech's Comments Hold Purple Top VBG pH VBG pCO2 VBG pO2 VBG HCO3 VBG O2 Saturation VBG Base Excess Sodium Potassium Chloride Carbon Dioxide Anion Gap BUN Creatinine Estim Creat Clear Calc Estimated GFR POC Glucose 161 H 185 H 206 H Random Glucose Estimat Average Glucose Hemoglobin A1c % Osmolality Lactic Acid Calcium Magnesium Iron TIBC % Saturation Unsat Iron Binding Total Bilirubin AST ALT Alkaline Phosphatase Total Protein Albumin Triglycerides Cholesterol LDL Cholesterol, Calc HDL Cholesterol Lipase TSH Free T4 Urine Color Urine Appearance Urine pH Ur Specific [place] Urine Protein Urine Glucose (UA) Urine Ketones Urine Blood Urine Nitrite Ur Leukocyte Esterase Urine RBC Urine WBC Ur Squamous Epith Cells Urine Bacteria Hyaline Casts Urine Osmolality Ur Random Sodium Urine Opiates Screen Ur Buprenorphine Scrn Ur Oxycodone Screen Urine Methadone Screen Urine Fentanyl Screen Ur Barbiturates Screen Carbamazepine Ur Phencyclidine Scrn Ur Amphetamines Screen U Benzodiazepines Scrn Urine Cocaine Screen U Marijuana (THC) Screen COVID-19 (TRESA) COVID-19 Clin Com Influenza Type A (AMANDA) Influenza Type B (AMANDA) Influenza A & B Note TB Test (T-Spot) Com TB Test Nil Control TB Test Panel A TB Test Panel B TB Test Positive Cntr 12/07/24 12/08/24 12/09/24 06:19 06:31 06:26 WBC RBC Hgb Hct MCV MCH MCHC RDW Plt Count MPV Immature Gran % (Auto) Neut % (Auto) Lymph % (Auto) [place] % (Auto) Eos % (Auto) Baso % (Auto) Lymph # (Auto) [place] # (Auto) Eos # (Auto) Baso # (Auto) Abs Immat Gran (auto) Absolute Neuts (auto) Absolute Nucleated RBC Nucleated RBC % (auto) Smear Tech's Comments Hold Purple Top VBG pH VBG pCO2 VBG pO2 VBG HCO3 VBG O2 Saturation VBG Base Excess Sodium Potassium Chloride Carbon Dioxide Anion Gap BUN Creatinine Estim Creat Clear Calc Estimated GFR POC Glucose 194 H 163 H 165 H Random Glucose Estimat Average Glucose Hemoglobin A1c % Osmolality Lactic Acid Calcium Magnesium Iron TIBC % Saturation Unsat Iron Binding Total Bilirubin AST ALT Alkaline Phosphatase Total Protein Albumin Triglycerides Cholesterol LDL Cholesterol, Calc HDL Cholesterol Lipase TSH Free T4 Urine Color Urine Appearance Urine pH Ur Specific [place] Urine Protein Urine Glucose (UA) Urine Ketones Urine Blood Urine Nitrite Ur Leukocyte Esterase Urine RBC Urine WBC Ur Squamous Epith Cells Urine Bacteria Hyaline Casts Urine Osmolality Ur Random Sodium Urine Opiates Screen Ur Buprenorphine Scrn Ur Oxycodone Screen Urine Methadone Screen Urine Fentanyl Screen Ur Barbiturates Screen Carbamazepine Ur Phencyclidine Scrn Ur Amphetamines Screen U Benzodiazepines Scrn Urine Cocaine Screen U Marijuana (THC) Screen COVID-19 (TRESA) COVID-19 Clin Com Influenza Type A (AMANDA) Influenza Type B (AMANDA) Influenza A & B Note TB Test (T-Spot) Com TB Test Nil Control TB Test Panel A TB Test Panel B TB Test Positive Cntrl 12/09/24 12/10/24 12/11/24 12:31 06:09 06:15 WBC RBC Hgb Hct MCV MCH MCHC RDW Plt Count MPV Immature Gran % (Auto) Neut % (Auto) Lymph % (Auto) [place] % (Auto) Eos % (Auto) Baso % (Auto) Lymph # (Auto) [place] # (Auto) Eos # (Auto) Baso # (Auto) Abs Immat Gran (auto) Absolute Neuts (auto) Absolute Nucleated RBC Nucleated RBC % (auto) Smear Tech's Comments Hold Purple Top VBG pH VBG pCO2 VBG pO2 VBG HCO3 VBG O2 Saturation VBG Base Excess Sodium Potassium Chloride Carbon Dioxide Anion Gap BUN Creatinine Estim Creat Clear Calc Estimated GFR POC Glucose 167 H 159 H Random Glucose Estimat Average Glucose Hemoglobin A1c % Osmolality Lactic Acid Calcium Magnesium Iron TIBC % Saturation Unsat Iron Binding Total Bilirubin AST ALT Alkaline Phosphatase Total Protein Albumin Triglycerides Cholesterol LDL Cholesterol, Calc HDL Cholesterol Lipase TSH Free T4 Urine Color Urine Appearance Urine pH Ur Specific [place] Urine Protein Urine Glucose (UA) Urine Ketones Urine Blood Urine Nitrite Ur Leukocyte Esterase Urine RBC Urine WBC Ur Squamous Epith Cells Urine Bacteria Hyaline Casts Urine Osmolality Ur Random Sodium Urine Opiates Screen Ur Buprenorphine Scrn Ur Oxycodone Screen Urine Methadone Screen Urine Fentanyl Screen Ur Barbiturates Screen Carbamazepine Ur Phencyclidine Scrn Ur Amphetamines Screen U Benzodiazepines Scrn Urine Cocaine Screen U Marijuana (THC) Screen COVID-19 ([facility]ESA) COVID-19 Clin Com Influenza Type A (AMANDA) Influenza Type B (AMANDA) Influenza A & B Note TB Test (T-Spot) Com Negative TB Test Nil Control Passed TB Test Panel A 1 TB Test Panel B 0 TB Test Positive Cntrl Passed 12/12/24 12/13/24 12/13/24 06:24 06:14 12:13 WBC RBC Hgb Hct MCV MCH MCHC RDW Plt Count MPV Immature Gran % (Auto) Neut % (Auto) Lymph % (Auto) [place] % (Auto) Eos % (Auto) Baso % (Auto) Lymph # (Auto) [place] # (Auto) Eos # (Auto) Baso # (Auto) Abs Immat Gran (auto) Absolute Neuts (auto) Absolute Nucleated RBC Nucleated RBC % (auto) Smear Tech's Comments Hold Purple Top VBG pH VBG pCO2 VBG pO2 VBG HCO3 VBG O2 Saturation VBG Base Excess Sodium 135 Potassium 4.4 Chloride 103 Carbon Dioxide 20 L Anion Gap 16 BUN 32 H Creatinine 1.39 Estim Creat Clear Calc 24.1 Estimated GFR 37 POC Glucose 148 H 151 H Random Glucose 351 H* Estimat Average Glucose Hemoglobin A1c % Osmolality Lactic Acid Calcium 9.3 Magnesium Iron TIBC % Saturation Unsat Iron Binding Total Bilirubin AST ALT Alkaline Phosphatase Total Protein Albumin Triglycerides Cholesterol LDL Cholesterol, Calc HDL Cholesterol Lipase TSH Free T4 Urine Color Urine Appearance Urine pH Ur Specific [place] Urine Protein Urine Glucose (UA) Urine Ketones Urine Blood Urine Nitrite Ur Leukocyte Esterase Urine RBC Urine WBC Ur Squamous Epith Cells Urine Bacteria Hyaline Casts Urine Osmolality Ur Random Sodium Urine Opiates Screen Ur Buprenorphine Scrn Ur Oxycodone Screen Urine Methadone Screen Urine Fentanyl Screen Ur Barbiturates Screen Carbamazepine Ur Phencyclidine Scrn Ur Amphetamines Screen U Benzodiazepines Scrn Urine Cocaine Screen U Marijuana (THC) Screen COVID-19 (TRESA) COVID-19 Clin Com Influenza Type A (AMANDA) Influenza Type B (AMANDA) Influenza A & B Note TB Test (T-Spot) Com TB Test Nil Control TB Test Panel A TB Test Panel B TB Test Positive [facility] 12/14/24 12/15/24 12/15/24 06:21 06:11 21:16 WBC RBC Hgb Hct MCV MCH MCHC RDW Plt Count MPV Immature Gran % (Auto) Neut % (Auto) Lymph % (Auto) [place] % (Auto) Eos % (Auto) Baso % (Auto) Lymph # (Auto) [place] # (Auto) Eos # (Auto) Baso # (Auto) Abs Immat Gran (auto) Absolute Neuts (auto) Absolute Nucleated RBC Nucleated RBC % (auto) Smear Tech's Comments Hold Purple Top VBG pH VBG pCO2 VBG pO2 VBG HCO3 VBG O2 Saturation VBG Base Excess Sodium Potassium Chloride Carbon Dioxide Anion Gap BUN Creatinine Estim Creat Clear Calc Estimated GFR POC Glucose 150 H 158 H 106 Random Glucose Estimat Average Glucose Hemoglobin A1c % Osmolality Lactic Acid Calcium Magnesium Iron TIBC % Saturation Unsat Iron Binding Total Bilirubin AST ALT Alkaline Phosphatase Total Protein Albumin Triglycerides Cholesterol LDL Cholesterol, Calc HDL Cholesterol Lipase TSH Free T4 Urine Color Urine Appearance Urine pH Ur Specific [place] Urine Protein Urine Glucose (UA) Urine Ketones Urine Blood Urine Nitrite Ur Leukocyte Esterase Urine RBC Urine WBC Ur Squamous Epith Cells Urine Bacteria Hyaline Casts Urine Osmolality Ur Random Sodium Urine Opiates Screen Ur Buprenorphine Scrn Ur Oxycodone Screen Urine Methadone Screen Urine Fentanyl Screen Ur Barbiturates Screen Carbamazepine Ur Phencyclidine Scrn Ur Amphetamines Screen U Benzodiazepines Scrn Urine Cocaine Screen U Marijuana (THC) Screen COVID-19 (TRESA) COVID-19 Clin Com Influenza Type A (AMANDA) Influenza Type B (AMANDA) Influenza A & B Note TB Test (T-Spot) Com TB Test Nil Control TB Test Panel A TB Test Panel B TB Test Positive [facility] 12/16/24 12/16/24 12/16/24 06:45 12:26 15:35 WBC RBC Hgb Hct MCV MCH MCHC RDW Plt Count MPV Immature Gran % (Auto) Neut % (Auto) Lymph % (Auto) [place] % (Auto) Eos % (Auto) Baso % (Auto) Lymph # (Auto) [place] # (Auto) Eos # (Auto) Baso # (Auto) Abs Immat Gran (auto) Absolute Neuts (auto) Absolute Nucleated RBC Nucleated RBC % (auto) Smear Tech's Comments Hold Purple Top VBG pH VBG pCO2 VBG pO2 VBG HCO3 VBG O2 Saturation VBG Base Excess Sodium Potassium Chloride Carbon Dioxide Anion Gap BUN Creatinine Estim Creat Clear Calc Estimated GFR POC Glucose 194 H Random Glucose Estimat Average Glucose Hemoglobin A1c % Osmolality Lactic Acid Calcium Magnesium Iron TIBC % Saturation Unsat Iron Binding Total Bilirubin AST ALT Alkaline Phosphatase Total Protein Albumin Triglycerides Cholesterol LDL Cholesterol, Calc HDL Cholesterol Lipase TSH Free T4 Urine Color Urine Appearance Urine pH Ur Specific [place] Urine Protein Urine Glucose (UA) Urine Ketones Urine Blood Urine Nitrite Ur Leukocyte Esterase Urine RBC Urine WBC Ur Squamous Epith Cells Urine Bacteria Hyaline Casts Urine Osmolality Ur Random Sodium Urine Opiates Screen Ur Buprenorphine Scrn Ur Oxycodone Screen Urine Methadone Screen Urine Fentanyl Screen Ur Barbiturates Screen Carbamazepine Ur Phencyclidine Scrn Ur Amphetamines Screen U Benzodiazepines Scrn Urine Cocaine Screen U Marijuana (THC) Screen COVID-19 (TRESA) Negative COVID-19 Clin Com See Note Influenza Type A (AMANDA) Negative Influenza Type B (AMANDA) Negative Influenza A & B Note See Note TB Test (T-Spot) Com TB Test Nil Control TB Test Panel A TB Test Panel B TB Test Positive Cntrl 12/16/24 12/17/24 12/19/24 20:01 19:13 10:21 WBC RBC Hgb Hct MCV MCH MCHC RDW Plt Count MPV Immature Gran % (Auto) Neut % (Auto) Lymph % (Auto) [place] % (Auto) Eos % (Auto) Baso % (Auto) Lymph # (Auto) [place] # (Auto) Eos # (Auto) Baso # (Auto) Abs Immat Gran (auto) Absolute Neuts (auto) Absolute Nucleated RBC Nucleated RBC % (auto) Smear Tech's Comments Hold Purple Top VBG pH VBG pCO2 VBG pO2 VBG HCO3 VBG O2 Saturation VBG Base Excess Sodium Potassium Chloride Carbon Dioxide Anion Gap BUN Creatinine Estim Creat Clear Calc Estimated GFR POC Glucose 213 H 265 H 408 H* Random Glucose Estimat Average Glucose Hemoglobin A1c % Osmolality Lactic Acid Calcium Magnesium Iron TIBC % Saturation Unsat Iron Binding Total Bilirubin AST ALT Alkaline Phosphatase Total Protein Albumin Triglycerides Cholesterol LDL Cholesterol, Calc HDL Cholesterol Lipase TSH Free T4 Urine Color Urine Appearance Urine pH Ur Specific [place] Urine Protein Urine Glucose (UA) Urine Ketones Urine Blood Urine Nitrite Ur Leukocyte Esterase Urine RBC Urine WBC Ur Squamous Epith Cells Urine Bacteria Hyaline Casts Urine Osmolality Ur Random Sodium Urine Opiates Screen Ur Buprenorphine Scrn Ur Oxycodone Screen Urine Methadone Screen Urine Fentanyl Screen Ur Barbiturates Screen Carbamazepine Ur Phencyclidine Scrn Ur Amphetamines Screen U Benzodiazepines Scrn Urine Cocaine Screen U Marijuana (THC) Screen COVID-19 (TRESA) COVID-19 Clin Com Influenza Type A (AMANDA) Influenza Type B (AMANDA) Influenza A & B Note TB Test (T-Spot) Com TB Test Nil Control TB Test Panel A TB Test Panel B TB Test Positive Cntrl 12/19/24 12/19/24 12/20/24 16:02 20:57 06:20 WBC RBC Hgb Hct MCV MCH MCHC RDW Plt Count MPV Immature Gran % (Auto) Neut % (Auto) Lymph % (Auto) [place] % (Auto) Eos % (Auto) Baso % (Auto) Lymph # (Auto) [place] # (Auto) Eos # (Auto) Baso # (Auto) Abs Immat Gran (auto) Absolute Neuts (auto) Absolute Nucleated RBC Nucleated RBC % (auto) Smear Tech's Comments Hold Purple Top VBG pH VBG pCO2 VBG pO2 VBG HCO3 VBG O2 Saturation VBG Base Excess Sodium Potassium Chloride Carbon Dioxide Anion Gap BUN Creatinine Estim Creat Clear Calc Estimated GFR POC Glucose 115 101 181 H Random Glucose Estimat Average Glucose Hemoglobin A1c % Osmolality Lactic Acid Calcium Magnesium Iron TIBC % Saturation Unsat Iron Binding Total Bilirubin AST ALT Alkaline Phosphatase Total Protein Albumin Triglycerides Cholesterol LDL Cholesterol, Calc HDL Cholesterol Lipase TSH Free T4 Urine Color Urine Appearance Urine pH Ur Specific [place] Urine Protein Urine Glucose (UA) Urine Ketones Urine Blood Urine Nitrite Ur Leukocyte Esterase Urine RBC Urine WBC Ur Squamous Epith Cells Urine Bacteria Hyaline Casts Urine Osmolality Ur Random Sodium Urine Opiates Screen Ur Buprenorphine Scrn Ur Oxycodone Screen Urine Methadone Screen Urine Fentanyl Screen Ur Barbiturates Screen Carbamazepine Ur Phencyclidine Scrn Ur Amphetamines Screen U Benzodiazepines Scrn Urine Cocaine Screen U Marijuana (THC) Screen COVID-19 (TRESA) COVID-19 Clin Com Influenza Type A (AMANDA) Influenza Type B (AMANDA) Influenza A & B Note TB Test (T-Spot) Com TB Test Nil Control TB Test Panel A TB Test Panel B TB Test Positive Cntr 12/20/24 12/20/24 12/20/24 08:43 10:41 15:49 WBC RBC Hgb Hct MCV MCH MCHC RDW Plt Count MPV Immature Gran % (Auto) Neut % (Auto) Lymph % (Auto) [place] % (Auto) Eos % (Auto) Baso % (Auto) Lymph # (Auto) [place] # (Auto) Eos # (Auto) Baso # (Auto) Abs Immat Gran (auto) Absolute Neuts (auto) Absolute Nucleated RBC Nucleated RBC % (auto) Smear Tech's Comments Hold Purple Top VBG pH VBG pCO2 VBG pO2 VBG HCO3 VBG O2 Saturation VBG Base Excess Sodium 140 Potassium 5.2 H Chloride 107 Carbon Dioxide 25 Anion Gap 13 BUN 27 H Creatinine 1.08 Estim Creat Clear Calc 28.6 Estimated GFR 49 POC Glucose 223 H 177 H Random Glucose 266 H Estimat Average Glucose Hemoglobin A1c % Osmolality Lactic Acid Calcium 9.0 Magnesium Iron TIBC % Saturation Unsat Iron Binding Total Bilirubin 0.3 AST 66 H ALT 70 H Alkaline Phosphatase 60 Total Protein 6.6 Albumin 3.6 Triglycerides Cholesterol LDL Cholesterol, Calc HDL Cholesterol Lipase TSH Free T4 Urine Color Urine Appearance Urine pH Ur Specific [place] Urine Protein Urine Glucose (UA) Urine Ketones Urine Blood Urine Nitrite Ur Leukocyte Esterase Urine RBC Urine WBC Ur Squamous Epith Cells Urine Bacteria Hyaline Casts Urine Osmolality Ur Random Sodium Urine Opiates Screen Ur Buprenorphine Scrn Ur Oxycodone Screen Urine Methadone Screen Urine Fentanyl Screen Ur Barbiturates Screen Carbamazepine Ur Phencyclidine Scrn Ur Amphetamines Screen U Benzodiazepines Scrn Urine Cocaine Screen U Marijuana (THC) Screen COVID-19 (TRESA) COVID-19 Clin Com Influenza Type A (AMANDA) Influenza Type B (AMANDA) Influenza A & B Note TB Test (T-Spot) Com TB Test Nil Control TB Test Panel A TB Test Panel B TB Test Positive Cntrl 12/21/24 12/21/24 12/21/24 06:20 11:49 16:10 WBC RBC Hgb Hct MCV MCH MCHC RDW Plt Count MPV Immature Gran % (Auto) Neut % (Auto) Lymph % (Auto) [place] % (Auto) Eos % (Auto) Baso % (Auto) Lymph # (Auto) [place] # (Auto) Eos # (Auto) Baso # (Auto) Abs Immat Gran (auto) Absolute Neuts (auto) Absolute Nucleated RBC Nucleated RBC % (auto) Smear Tech's Comments Hold Purple Top VBG pH VBG pCO2 VBG pO2 VBG HCO3 VBG O2 Saturation VBG Base Excess Sodium Potassium Chloride Carbon Dioxide Anion Gap BUN Creatinine Estim Creat Clear Calc Estimated GFR POC Glucose 170 H 201 H 141 H Random Glucose Estimat Average Glucose Hemoglobin A1c % Osmolality Lactic Acid Calcium Magnesium Iron TIBC % Saturation Unsat Iron Binding Total Bilirubin AST ALT Alkaline Phosphatase Total Protein Albumin Triglycerides Cholesterol LDL Cholesterol, Calc HDL Cholesterol Lipase TSH Free T4 Urine Color Urine Appearance Urine pH Ur Specific [place] Urine Protein Urine Glucose (UA) Urine Ketones Urine Blood Urine Nitrite Ur Leukocyte Esterase Urine RBC Urine WBC Ur Squamous Epith Cells Urine Bacteria Hyaline Casts Urine Osmolality Ur Random Sodium Urine Opiates Screen Ur Buprenorphine Scrn Ur Oxycodone Screen Urine Methadone Screen Urine Fentanyl Screen Ur Barbiturates Screen Carbamazepine Ur Phencyclidine Scrn Ur Amphetamines Screen U Benzodiazepines Scrn Urine Cocaine Screen U Marijuana (THC) Screen COVID-19 (TRESA) COVID-19 Clin Com Influenza Type A (AMANDA) Influenza Type B (AMANDA) Influenza A & B Note TB Test (T-Spot) Com TB Test Nil Control TB Test Panel A TB Test Panel B TB Test Positive [facility] 12/21/24 12/22/24 12/22/24 20:59 06:39 11:34 WBC RBC Hgb Hct MCV MCH MCHC RDW Plt Count MPV Immature Gran % (Auto) Neut % (Auto) Lymph % (Auto) [place] % (Auto) Eos % (Auto) Baso % (Auto) Lymph # (Auto) [place] # (Auto) Eos # (Auto) Baso # (Auto) Abs Immat Gran (auto) Absolute Neuts (auto) Absolute Nucleated RBC Nucleated RBC % (auto) Smear Tech's Comments Hold Purple Top VBG pH VBG pCO2 VBG pO2 VBG HCO3 VBG O2 Saturation VBG Base Excess Sodium Potassium Chloride Carbon Dioxide Anion Gap BUN Creatinine Estim Creat Clear Calc Estimated GFR POC Glucose 270 H 217 H 134 H Random Glucose Estimat Average Glucose Hemoglobin A1c % Osmolality Lactic Acid Calcium Magnesium Iron TIBC % Saturation Unsat Iron Binding Total Bilirubin AST ALT Alkaline Phosphatase Total Protein Albumin Triglycerides Cholesterol LDL Cholesterol, Calc HDL Cholesterol Lipase TSH Free T4 Urine Color Urine Appearance Urine pH Ur Specific [place] Urine Protein Urine Glucose (UA) Urine Ketones Urine Blood Urine Nitrite Ur Leukocyte Esterase Urine RBC Urine WBC Ur Squamous Epith Cells Urine Bacteria Hyaline Casts Urine Osmolality Ur Random Sodium Urine Opiates Screen Ur Buprenorphine Scrn Ur Oxycodone Screen Urine Methadone Screen Urine Fentanyl Screen Ur Barbiturates Screen Carbamazepine Ur Phencyclidine Scrn Ur Amphetamines Screen U Benzodiazepines Scrn Urine Cocaine Screen U Marijuana (THC) Screen COVID-19 (TRESA) COVID-19 Clin Com Influenza Type A (AMANDA) Influenza Type B (AMANDA) Influenza A & B Note TB Test (T-Spot) Com TB Test Nil Control TB Test Panel A TB Test Panel B TB Test Positive Cntrl 12/22/24 12/22/24 12/23/24 16:32 20:04 06:23 WBC RBC Hgb Hct MCV MCH MCHC RDW Plt Count MPV Immature Gran % (Auto) Neut % (Auto) Lymph % (Auto) [place] % (Auto) Eos % (Auto) Baso % (Auto) Lymph # (Auto) [place] # (Auto) Eos # (Auto) Baso # (Auto) Abs Immat Gran (auto) Absolute Neuts (auto) Absolute Nucleated RBC Nucleated RBC % (auto) Smear Tech's Comments Hold Purple Top VBG pH VBG pCO2 VBG pO2 VBG HCO3 VBG O2 Saturation VBG Base Excess Sodium Potassium Chloride Carbon Dioxide Anion Gap BUN Creatinine Estim Creat Clear Calc Estimated GFR POC Glucose 200 H 76 237 H Random Glucose Estimat Average Glucose Hemoglobin A1c % Osmolality Lactic Acid Calcium Magnesium Iron TIBC % Saturation Unsat Iron Binding Total Bilirubin AST ALT Alkaline Phosphatase Total Protein Albumin Triglycerides Cholesterol LDL Cholesterol, Calc HDL Cholesterol Lipase TSH Free T4 Urine Color Urine Appearance Urine pH Ur Specific [place] Urine Protein Urine Glucose (UA) Urine Ketones Urine Blood Urine Nitrite Ur Leukocyte Esterase Urine RBC Urine WBC Ur Squamous Epith Cells Urine Bacteria Hyaline Casts Urine Osmolality Ur Random Sodium Urine Opiates Screen Ur Buprenorphine Scrn Ur Oxycodone Screen Urine Methadone Screen Urine Fentanyl Screen Ur Barbiturates Screen Carbamazepine Ur Phencyclidine Scrn Ur Amphetamines Screen U Benzodiazepines Scrn Urine Cocaine Screen U Marijuana (THC) Screen COVID-19 (TRESA) COVID-19 Clin Com Influenza Type A (AMANDA) Influenza Type B (AMANDA) Influenza A & B Note TB Test (T-Spot) Com TB Test Nil Control TB Test Panel A TB Test Panel B TB Test Positive Cntr 12/23/24 12/23/24 12/23/24 11:32 16:20 19:35 WBC RBC Hgb Hct MCV MCH MCHC RDW Plt Count MPV Immature Gran % (Auto) Neut % (Auto) Lymph % (Auto) [place] % (Auto) Eos % (Auto) Baso % (Auto) Lymph # (Auto) [place] # (Auto) Eos # (Auto) Baso # (Auto) Abs Immat Gran (auto) Absolute Neuts (auto) Absolute Nucleated RBC Nucleated RBC % (auto) Smear Tech's Comments Hold Purple Top VBG pH VBG pCO2 VBG pO2 VBG HCO3 VBG O2 Saturation VBG Base Excess Sodium Potassium Chloride Carbon Dioxide Anion Gap BUN Creatinine Estim Creat Clear Calc Estimated GFR POC Glucose 114 125 H 134 H Random Glucose Estimat Average Glucose Hemoglobin A1c % Osmolality Lactic Acid Calcium Magnesium Iron TIBC % Saturation Unsat Iron Binding Total Bilirubin AST ALT Alkaline Phosphatase Total Protein Albumin Triglycerides Cholesterol LDL Cholesterol, Calc HDL Cholesterol Lipase TSH Free T4 Urine Color Urine Appearance Urine pH Ur Specific [place] Urine Protein Urine Glucose (UA) Urine Ketones Urine Blood Urine Nitrite Ur Leukocyte Esterase Urine RBC Urine WBC Ur Squamous Epith Cells Urine Bacteria Hyaline Casts Urine Osmolality Ur Random Sodium Urine Opiates Screen Ur Buprenorphine Scrn Ur Oxycodone Screen Urine Methadone Screen Urine Fentanyl Screen Ur Barbiturates Screen Carbamazepine Ur Phencyclidine Scrn Ur Amphetamines Screen U Benzodiazepines Scrn Urine Cocaine Screen U Marijuana (THC) Screen COVID-19 (TRESA) COVID-19 Clin Com Influenza Type A (AMANDA) Influenza Type B (AMANDA) Influenza A & B Note TB Test (T-Spot) Com TB Test Nil Control TB Test Panel A TB Test Panel B TB Test Positive Cntrl 12/24/24 12/24/24 12/24/24 06:14 11:21 16:11 WBC RBC Hgb Hct MCV MCH MCHC RDW Plt Count MPV Immature Gran % (Auto) Neut % (Auto) Lymph % (Auto) [place] % (Auto) Eos % (Auto) Baso % (Auto) Lymph # (Auto) [place] # (Auto) Eos # (Auto) Baso # (Auto) Abs Immat Gran (auto) Absolute Neuts (auto) Absolute Nucleated RBC Nucleated RBC % (auto) Smear Tech's Comments Hold Purple Top VBG pH VBG pCO2 VBG pO2 VBG HCO3 VBG O2 Saturation VBG Base Excess Sodium Potassium Chloride Carbon Dioxide Anion Gap BUN Creatinine Estim Creat Clear Calc Estimated GFR POC Glucose 212 H 168 H 97 Random Glucose Estimat Average Glucose Hemoglobin A1c % Osmolality Lactic Acid Calcium Magnesium Iron TIBC % Saturation Unsat Iron Binding Total Bilirubin AST ALT Alkaline Phosphatase Total Protein Albumin Triglycerides Cholesterol LDL Cholesterol, Calc HDL Cholesterol Lipase TSH Free T4 Urine Color Urine Appearance Urine pH Ur Specific [place] Urine Protein Urine Glucose (UA) Urine Ketones Urine Blood Urine Nitrite Ur Leukocyte Esterase Urine RBC Urine WBC Ur Squamous Epith Cells Urine Bacteria Hyaline Casts Urine Osmolality Ur Random Sodium Urine Opiates Screen Ur Buprenorphine Scrn Ur Oxycodone Screen Urine Methadone Screen Urine Fentanyl Screen Ur Barbiturates Screen Carbamazepine Ur Phencyclidine Scrn Ur Amphetamines Screen U Benzodiazepines Scrn Urine Cocaine Screen U Marijuana (THC) Screen COVID-19 (TRESA) COVID-19 Clin Com Influenza Type A (AMANDA) Influenza Type B (AMANDA) Influenza A & B Note TB Test (T-Spot) Com TB Test Nil Control TB Test Panel A TB Test Panel B TB Test Positive Cntrl 12/24/24 12/25/24 12/25/24 20:01 05:45 10:16 WBC RBC Hgb Hct MCV MCH MCHC RDW Plt Count MPV Immature Gran % (Auto) Neut % (Auto) Lymph % (Auto) [place] % (Auto) Eos % (Auto) Baso % (Auto) Lymph # (Auto) [place] # (Auto) Eos # (Auto) Baso # (Auto) Abs Immat Gran (auto) Absolute Neuts (auto) Absolute Nucleated RBC Nucleated RBC % (auto) Smear Tech's Comments Hold Purple Top VBG pH VBG pCO2 VBG pO2 VBG HCO3 VBG O2 Saturation VBG Base Excess Sodium Potassium Chloride Carbon Dioxide Anion Gap BUN Creatinine Estim Creat Clear Calc Estimated GFR POC Glucose 208 H 220 H 224 H Random Glucose Estimat Average Glucose Hemoglobin A1c % Osmolality Lactic Acid Calcium Magnesium Iron TIBC % Saturation Unsat Iron Binding Total Bilirubin AST ALT Alkaline Phosphatase Total Protein Albumin Triglycerides Cholesterol LDL Cholesterol, Calc HDL Cholesterol Lipase TSH Free T4 Urine Color Urine Appearance Urine pH Ur Specific [place] Urine Protein Urine Glucose (UA) Urine Ketones Urine Blood Urine Nitrite Ur Leukocyte Esterase Urine RBC Urine WBC Ur Squamous Epith Cells Urine Bacteria Hyaline Casts Urine Osmolality Ur Random Sodium Urine Opiates Screen Ur Buprenorphine Scrn Ur Oxycodone Screen Urine Methadone Screen Urine Fentanyl Screen Ur Barbiturates Screen Carbamazepine Ur Phencyclidine Scrn Ur Amphetamines Screen U Benzodiazepines Scrn Urine Cocaine Screen U Marijuana (THC) Screen COVID-19 (TRESA) COVID-19 Clin Com Influenza Type A (AMANDA) Influenza Type B (AMANDA) Influenza A & B Note TB Test (T-Spot) Com TB Test Nil Control TB Test Panel A TB Test Panel B TB Test Positive [facility] 12/25/24 12/25/24 12/26/24 16:09 20:08 06:42 WBC RBC Hgb Hct MCV MCH MCHC RDW Plt Count MPV Immature Gran % (Auto) Neut % (Auto) Lymph % (Auto) [place] % (Auto) Eos % (Auto) Baso % (Auto) Lymph # (Auto) [place] # (Auto) Eos # (Auto) Baso # (Auto) Abs Immat Gran (auto) Absolute Neuts (auto) Absolute Nucleated RBC Nucleated RBC % (auto) Smear Tech's Comments Hold Purple Top VBG pH VBG pCO2 VBG pO2 VBG HCO3 VBG O2 Saturation VBG Base Excess Sodium Potassium Chloride Carbon Dioxide Anion Gap BUN Creatinine Estim Creat Clear Calc Estimated GFR POC Glucose 86 281 H 210 H Random Glucose Estimat Average Glucose Hemoglobin A1c % Osmolality Lactic Acid Calcium Magnesium Iron TIBC % Saturation Unsat Iron Binding Total Bilirubin AST ALT Alkaline Phosphatase Total Protein Albumin Triglycerides Cholesterol LDL Cholesterol, Calc HDL Cholesterol Lipase TSH Free T4 Urine Color Urine Appearance Urine pH Ur Specific [place] Urine Protein Urine Glucose (UA) Urine Ketones Urine Blood Urine Nitrite Ur Leukocyte Esterase Urine RBC Urine WBC Ur Squamous Epith Cells Urine Bacteria Hyaline Casts Urine Osmolality Ur Random Sodium Urine Opiates Screen Ur Buprenorphine Scrn Ur Oxycodone Screen Urine Methadone Screen Urine Fentanyl Screen Ur Barbiturates Screen Carbamazepine Ur Phencyclidine Scrn Ur Amphetamines Screen U Benzodiazepines Scrn Urine Cocaine Screen U Marijuana (THC) Screen COVID-19 (TRESA) COVID-19 Clin Com Influenza Type A (AMANDA) Influenza Type B (AMANDA) Influenza A & B Note TB Test (T-Spot) Com TB Test Nil Control TB Test Panel A TB Test Panel B TB Test Positive [facility] 12/26/24 12/26/24 12/26/24 11:10 14:48 16:13 WBC RBC Hgb Hct MCV MCH MCHC RDW Plt Count MPV Immature Gran % (Auto) Neut % (Auto) Lymph % (Auto) [place] % (Auto) Eos % (Auto) Baso % (Auto) Lymph # (Auto) [place] # (Auto) Eos # (Auto) Baso # (Auto) Abs Immat Gran (auto) Absolute Neuts (auto) Absolute Nucleated RBC Nucleated RBC % (auto) Smear Tech's Comments Hold Purple Top VBG pH VBG pCO2 VBG pO2 VBG HCO3 VBG O2 Saturation VBG Base Excess Sodium Potassium Chloride Carbon Dioxide Anion Gap BUN Creatinine Estim Creat Clear Calc Estimated GFR POC Glucose 284 H 130 H 146 H Random Glucose Estimat Average Glucose Hemoglobin A1c % Osmolality Lactic Acid Calcium Magnesium Iron TIBC % Saturation Unsat Iron Binding Total Bilirubin AST ALT Alkaline Phosphatase Total Protein Albumin Triglycerides Cholesterol LDL Cholesterol, Calc HDL Cholesterol Lipase TSH Free T4 Urine Color Urine Appearance Urine pH Ur Specific [place] Urine Protein Urine Glucose (UA) Urine Ketones Urine Blood Urine Nitrite Ur Leukocyte Esterase Urine RBC Urine WBC Ur Squamous Epith Cells Urine Bacteria Hyaline Casts Urine Osmolality Ur Random Sodium Urine Opiates Screen Ur Buprenorphine Scrn Ur Oxycodone Screen Urine Methadone Screen Urine Fentanyl Screen Ur Barbiturates Screen Carbamazepine Ur Phencyclidine Scrn Ur Amphetamines Screen U Benzodiazepines Scrn Urine Cocaine Screen U Marijuana (THC) Screen COVID-19 (TRESA) COVID-19 Clin Com Influenza Type A (AMANDA) Influenza Type B (AMANDA) Influenza A & B Note TB Test (T-Spot) Com TB Test Nil Control TB Test Panel A TB Test Panel B TB Test Positive Cntr 12/26/24 12/27/24 12/27/24 20:01 06:05 11:24 WBC RBC Hgb Hct MCV MCH MCHC RDW Plt Count MPV Immature Gran % (Auto) Neut % (Auto) Lymph % (Auto) [place] % (Auto) Eos % (Auto) Baso % (Auto) Lymph # (Auto) [place] # (Auto) Eos # (Auto) Baso # (Auto) Abs Immat Gran (auto) Absolute Neuts (auto) Absolute Nucleated RBC Nucleated RBC % (auto) Smear Tech's Comments Hold Purple Top VBG pH VBG pCO2 VBG pO2 VBG HCO3 VBG O2 Saturation VBG Base Excess Sodium Potassium Chloride Carbon Dioxide Anion Gap BUN Creatinine Estim Creat Clear Calc Estimated GFR POC Glucose 200 H 229 H 393 H* Random Glucose Estimat Average Glucose Hemoglobin A1c % Osmolality Lactic Acid Calcium Magnesium Iron TIBC % Saturation Unsat Iron Binding Total Bilirubin AST ALT Alkaline Phosphatase Total Protein Albumin Triglycerides Cholesterol LDL Cholesterol, Calc HDL Cholesterol Lipase TSH Free T4 Urine Color Urine Appearance Urine pH Ur Specific [place] Urine Protein Urine Glucose (UA) Urine Ketones Urine Blood Urine Nitrite Ur Leukocyte Esterase Urine RBC Urine WBC Ur Squamous Epith Cells Urine Bacteria Hyaline Casts Urine Osmolality Ur Random Sodium Urine Opiates Screen Ur Buprenorphine Scrn Ur Oxycodone Screen Urine Methadone Screen Urine Fentanyl Screen Ur Barbiturates Screen Carbamazepine Ur Phencyclidine Scrn Ur Amphetamines Screen U Benzodiazepines Scrn Urine Cocaine Screen U Marijuana (THC) Screen COVID-19 (TRESA) COVID-19 Clin Com Influenza Type A (AMANDA) Influenza Type B (AMANDA) Influenza A & B Note TB Test (T-Spot) Com TB Test Nil Control TB Test Panel A TB Test Panel B TB Test Positive [facility] 12/27/24 12/27/24 12/27/24 15:38 15:51 16:38 WBC RBC Hgb Hct MCV MCH MCHC RDW Plt Count MPV Immature Gran % (Auto) Neut % (Auto) Lymph % (Auto) [place] % (Auto) Eos % (Auto) Baso % (Auto) Lymph # (Auto) [place] # (Auto) Eos # (Auto) Baso # (Auto) Abs Immat Gran (auto) Absolute Neuts (auto) Absolute Nucleated RBC Nucleated RBC % (auto) Smear Tech's Comments Hold Purple Top VBG pH VBG pCO2 VBG pO2 VBG HCO3 VBG O2 Saturation VBG Base Excess Sodium Potassium Chloride Carbon Dioxide Anion Gap BUN Creatinine Estim Creat Clear Calc Estimated GFR POC Glucose 54 L* 109 199 H Random Glucose Estimat Average Glucose Hemoglobin A1c % Osmolality Lactic Acid Calcium Magnesium Iron TIBC % Saturation Unsat Iron Binding Total Bilirubin AST ALT Alkaline Phosphatase Total Protein Albumin Triglycerides Cholesterol LDL Cholesterol, Calc HDL Cholesterol Lipase TSH Free T4 Urine Color Urine Appearance Urine pH Ur Specific [place] Urine Protein Urine Glucose (UA) Urine Ketones Urine Blood Urine Nitrite Ur Leukocyte Esterase Urine RBC Urine WBC Ur Squamous Epith Cells Urine Bacteria Hyaline Casts Urine Osmolality Ur Random Sodium Urine Opiates Screen Ur Buprenorphine Scrn Ur Oxycodone Screen Urine Methadone Screen Urine Fentanyl Screen Ur Barbiturates Screen Carbamazepine Ur Phencyclidine Scrn Ur Amphetamines Screen U Benzodiazepines Scrn Urine Cocaine Screen U Marijuana (THC) Screen COVID-19 (TRESA) COVID-19 Clin Com Influenza Type A (AMANDA) Influenza Type B (AMANDA) Influenza A & B Note TB Test (T-Spot) Com TB Test Nil Control TB Test Panel A TB Test Panel B TB Test Positive [facility] 12/27/24 12/28/24 12/28/24 20:04 07:13 11:00 WBC RBC Hgb Hct MCV MCH MCHC RDW Plt Count MPV Immature Gran % (Auto) Neut % (Auto) Lymph % (Auto) [place] % (Auto) Eos % (Auto) Baso % (Auto) Lymph # (Auto) [place] # (Auto) Eos # (Auto) Baso # (Auto) Abs Immat Gran (auto) Absolute Neuts (auto) Absolute Nucleated RBC Nucleated RBC % (auto) Smear Tech's Comments Hold Purple Top VBG pH VBG pCO2 VBG pO2 VBG HCO3 VBG O2 Saturation VBG Base Excess Sodium Potassium Chloride Carbon Dioxide Anion Gap BUN Creatinine Estim Creat Clear Calc Estimated GFR POC Glucose 281 H 263 H 195 H Random Glucose Estimat Average Glucose Hemoglobin A1c % Osmolality Lactic Acid Calcium Magnesium Iron TIBC % Saturation Unsat Iron Binding Total Bilirubin AST ALT Alkaline Phosphatase Total Protein Albumin Triglycerides Cholesterol LDL Cholesterol, Calc HDL Cholesterol Lipase TSH Free T4 Urine Color Urine Appearance Urine pH Ur Specific [place] Urine Protein Urine Glucose (UA) Urine Ketones Urine Blood Urine Nitrite Ur Leukocyte Esterase Urine RBC Urine WBC Ur Squamous Epith Cells Urine Bacteria Hyaline Casts Urine Osmolality Ur Random Sodium Urine Opiates Screen Ur Buprenorphine Scrn Ur Oxycodone Screen Urine Methadone Screen Urine Fentanyl Screen Ur Barbiturates Screen Carbamazepine Ur Phencyclidine Scrn Ur Amphetamines Screen U Benzodiazepines Scrn Urine Cocaine Screen U Marijuana (THC) Screen COVID-19 (TRESA) COVID-19 Clin Com Influenza Type A (AMANDA) Influenza Type B (AMANDA) Influenza A & B Note TB Test (T-Spot) Com TB Test Nil Control TB Test Panel A TB Test Panel B TB Test Positive Cntr 12/28/24 12/28/24 12/29/24 16:12 20:21 06:47 WBC RBC Hgb Hct MCV MCH MCHC RDW Plt Count MPV Immature Gran % (Auto) Neut % (Auto) Lymph % (Auto) [place] % (Auto) Eos % (Auto) Baso % (Auto) Lymph # (Auto) [place] # (Auto) Eos # (Auto) Baso # (Auto) Abs Immat Gran (auto) Absolute Neuts (auto) Absolute Nucleated RBC Nucleated RBC % (auto) Smear Tech's Comments Hold Purple Top VBG pH VBG pCO2 VBG pO2 VBG HCO3 VBG O2 Saturation VBG Base Excess Sodium Potassium Chloride Carbon Dioxide Anion Gap BUN Creatinine Estim Creat Clear Calc Estimated GFR POC Glucose 111 134 H 257 H Random Glucose Estimat Average Glucose Hemoglobin A1c % Osmolality Lactic Acid Calcium Magnesium Iron TIBC % Saturation Unsat Iron Binding Total Bilirubin AST ALT Alkaline Phosphatase Total Protein Albumin Triglycerides Cholesterol LDL Cholesterol, Calc HDL Cholesterol Lipase TSH Free T4 Urine Color Urine Appearance Urine pH Ur Specific [place] Urine Protein Urine Glucose (UA) Urine Ketones Urine Blood Urine Nitrite Ur Leukocyte Esterase Urine RBC Urine WBC Ur Squamous Epith Cells Urine Bacteria Hyaline Casts Urine Osmolality Ur Random Sodium Urine Opiates Screen Ur Buprenorphine Scrn Ur Oxycodone Screen Urine Methadone Screen Urine Fentanyl Screen Ur Barbiturates Screen Carbamazepine Ur Phencyclidine Scrn Ur Amphetamines Screen U Benzodiazepines Scrn Urine Cocaine Screen U Marijuana (THC) Screen COVID-19 (TRESA) COVID-19 Clin Com Influenza Type A (AMANDA) Influenza Type B (AMANDA) Influenza A & B Note TB Test (T-Spot) Com TB Test Nil Control TB Test Panel A TB Test Panel B TB Test Positive Cntrl 12/29/24 12/29/24 12/30/24 11:20 16:23 06:14 WBC RBC Hgb Hct MCV MCH MCHC RDW Plt Count MPV Immature Gran % (Auto) Neut % (Auto) Lymph % (Auto) [place] % (Auto) Eos % (Auto) Baso % (Auto) Lymph # (Auto) [place] # (Auto) Eos # (Auto) Baso # (Auto) Abs Immat Gran (auto) Absolute Neuts (auto) Absolute Nucleated RBC Nucleated RBC % (auto) Smear Tech's Comments Hold Purple Top VBG pH VBG pCO2 VBG pO2 VBG HCO3 VBG O2 Saturation VBG Base Excess Sodium Potassium Chloride Carbon Dioxide Anion Gap BUN Creatinine Estim Creat Clear Calc Estimated GFR POC Glucose 149 H 211 H 180 H Random Glucose Estimat Average Glucose Hemoglobin A1c % Osmolality Lactic Acid Calcium Magnesium Iron TIBC % Saturation Unsat Iron Binding Total Bilirubin AST ALT Alkaline Phosphatase Total Protein Albumin Triglycerides Cholesterol LDL Cholesterol, Calc HDL Cholesterol Lipase TSH Free T4 Urine Color Urine Appearance Urine pH Ur Specific [place] Urine Protein Urine Glucose (UA) Urine Ketones Urine Blood Urine Nitrite Ur Leukocyte Esterase Urine RBC Urine WBC Ur Squamous Epith Cells Urine Bacteria Hyaline Casts Urine Osmolality Ur Random Sodium Urine Opiates Screen Ur Buprenorphine Scrn Ur Oxycodone Screen Urine Methadone Screen Urine Fentanyl Screen Ur Barbiturates Screen Carbamazepine Ur Phencyclidine Scrn Ur Amphetamines Screen U Benzodiazepines Scrn Urine Cocaine Screen U Marijuana (THC) Screen COVID-19 (TRESA) COVID-19 Clin Com Influenza Type A (AMANDA) Influenza Type B (AMANDA) Influenza A & B Note TB Test (T-Spot) Com TB Test Nil Control TB Test Panel A TB Test Panel B TB Test Positive Cntrl Airway Mallampati Class: II TM Dist: <=3cm Neck ROM: Full Loose/Missing/Broken Teeth: Yes and Upper Heart: ok Lungs: ok Assessment and Plan Assessment Anesthesia Assessment: Anesthesia Plan Discussed and Chart Reviewed Final Anesthetic Review Family History of Problems with Anesthesia: No History of Problems with Anesthesia: No NPO: Yes ASA Class: III Final Preanesthetic Review: No Changes in Pt Med Stat, Meds/Allgs Chart Reviewed, Consent Obtained/Reviewed and Anes Risks/Benef Reviewed Patient Risk: Intermediate Procedure Risk: Intermediate Anesthetic Plan Anesthetic Plan: GA and Agree w/ Assess. and Plan Disposition: Standard PACU
--- NOTE | 2024-12-30 07:35 | MHC.SHP ---
Pre-Procedural Eval Section A - 24 Hr Update-Section A only Date of Service: 12/30/24 The patient is an INPATIENT: Yes Changes since office visit: Yes Patient answered all questions; No Cold of Flu in the past 2 weeks, No New Medical Problems and No Changes in Medication The patient has been examined within 24 hours of the surgical procedure. The History & Physical has been completed within 30 days and I have reviewed it.: Yes Section B - Complete if H&P > 30 days Chief Complaint: SI with plan to OD on medications, increased anxie Allergies: Allergies Allergy/AdvReac Type Severity Reaction Status Date / Time ampicillin Allergy Rash Verified 10/20/24 19:28 morphine Allergy Rash Verified 10/20/24 19:28 Penicillins Allergy Rash Verified 10/20/24 19:28 pork derived (porcine) Allergy Vomiting Verified 11/10/24 17:49 Plan Diagnosis/Plan: Unchanged I have reviewed the history and physical and performed a pertinent physical examination on my patient. No changes have occurred unless specified. Time Spent With Patient Time: Total time managing care of this patient today ____ minutes.
--- NOTE | 2024-12-30 07:47 | P.PNPSI_ITS ---
Subjective Subjective Reason For Visit: SI with plan to OD on medications, increased anxie Diagnostics Vital Signs (24Hr): Vital Signs - 24 hr 12/29/24 08:00 12/29/24 11:00 12/29/24 11:05 Temperature 97.9 F Pulse Rate 93 95 95 Respiratory Rate 16 Blood Pressure 162/86 H 138/82 148/88 H Pulse Oximetry 96 Oxygen Delivery Method Room Air 12/29/24 13:15 12/29/24 20:00 12/30/24 06:28 Temperature 97.6 F 97.6 F Pulse Rate 72 72 88 Respiratory Rate 17 16 Blood Pressure 138/82 148/70 H 144/81 H Pulse Oximetry 96 95 Oxygen Delivery Method Room Air Room Air BMI result Body Mass Index 23.3 Labs 11/02/24 20:14 12/20/24 08:43 Labs: Laboratory Results - last 48 hr 12/28/24 12/28/24 12/28/24 11:00 16:12 20:21 POC Glucose 195 H 111 134 H 12/29/24 12/29/24 12/29/24 06:47 11:20 16:23 POC Glucose 257 H 149 H 211 H 12/30/24 06:14 POC Glucose 180 H Imaging Radiology Impressions: ITS Impressions Hip/Pelvis X-Ray 11/05/24 11:00 IMPRESSION: Unremarkable examination of the left hip. Electronically signed by: Sam Saini MD 11/05/2024 11:13 AM EDT RP KUB X-Ray 11/06/24 09:20 IMPRESSION: Large amount of stool throughout the colon. Electronically signed by: Sam Saini MD 11/06/2024 09:34 AM EDT RP Head CT 11/08/24 14:58 IMPRESSION: Left frontal soft tissue swelling. No acute intracranial abnormality. Electronically signed by: Sam Saini MD 11/08/2024 03:18 PM EDT RP Medications Medications Current Medications Acetaminophen (Acetaminophen 325 Mg Tablet) 650 mg PO Q6H PRN PRN Reason: Headache/Pain, Scale 1-10 Last Admin: 12/29/24 17:08 Dose: 650 mg Al Hydroxide/Mg Hydroxide (Magnesium Hydrox/Alum Hydrox 30 Ml Oral.Susp) 30 ml PO Q6H PRN PRN Reason: Heartburn/Nausea Last Admin: 12/17/24 06:56 Dose: 30 ml Albuterol Sulfate (Albuterol Sulfate (0.083%) 2.5 Mg/3 Ml Vial.Neb) 2.5 mg INHALE ONCE PRN PRN Reason: Shortness of Breath/Wheezing Last Admin: 12/16/24 07:11 Dose: 2.5 mg Albuterol Sulfate (Albuterol Sulfate 90 Mcg 8 Gm Inhaler) 4 puff INHALE Q4H PRN PRN Reason: Shortness Of Breath Or Wheezin Amlodipine Besylate (Amlodipine Besylate 2.5 Mg Tablet) 2.5 mg PO DAILY [facility]; Protocol Last Admin: 12/29/24 08:06 Dose: 2.5 mg Atorvastatin Calcium (Atorvastatin Calcium 20 Mg Tablet) 20 mg PO DAILY [facility] Last Admin: 12/29/24 08:07 Dose: 20 mg Bisacodyl (Bisacodyl 10 Mg Supp.Rect) 10 mg CO BEDTIME PRN PRN Reason: Constipation Last Admin: 11/04/24 20:37 Dose: 10 mg Bupropion HCl (Bupropion Hcl Xl 300 Mg Tab.Er.24h) 300 mg PO DAILY [facility] Last Admin: 12/29/24 08:06 Dose: 300 mg Buspirone HCl (Buspirone Hcl 10 Mg Tablet) 20 mg PO TID [facility] Last Admin: 12/29/24 20:42 Dose: 20 mg Calcium Carbonate (Calcium Carbonate 750 Mg Tab.Chew) 750 mg PO Q4H PRN PRN Reason: Heartburn Last Admin: 11/30/24 21:34 Dose: 750 mg Clonazepam (Clonazepam Odt 0.125 Mg Tab.Rapdis) 0.125 mg PO BID PRN PRN Reason: severe anxiety Last Admin: 12/28/24 11:08 Dose: 0.125 mg Dicyclomine HCl (Dicyclomine Hcl 10 Mg Capsule) 10 mg PO Q4H PRN PRN Reason: abdominal cramping Last Admin: 12/17/24 13:55 Dose: 10 mg Docusate Sodium (Docusate Sodium 100 Mg Capsule) 100 mg PO BID [facility] Last Admin: 12/29/24 20:42 Dose: 100 mg Duloxetine HCl (Duloxetine Hcl 60 Mg Capsule.Dr) 60 mg PO DAILY [facility] Last Admin: 12/29/24 08:06 Dose: 60 mg Fluticasone/Vilanterol (Fluticasone/Vilanterol 100/25 Blst.W.Dev) 1 puff INHALE RDAILY [facility] Last Admin: 12/29/24 08:06 Dose: 1 puff Glipizide (Glipizide Xl 2.5 Mg Tab.Er.24) 2.5 mg PO DAILY [facility] Last Admin: 12/29/24 08:07 Dose: 2.5 mg Guaifenesin (Guaifenesin La 600 Mg Tab.Er.12h) 1,200 mg PO BID PRN PRN Reason: Cough Last Admin: 12/16/24 14:35 Dose: 1,200 mg Insulin Human Lispro (Insulin Lispro 100 Unit/Ml 3 Ml Vial) 0 unit SUBCUT TIDAC [facility]; Protocol Last Admin: 12/29/24 16:37 Dose: 4 unit Lisinopril (Lisinopril 2.5 Mg Tablet) 2.5 mg PO DAILY [facility]; Protocol Last Admin: 12/29/24 08:07 Dose: 2.5 mg Magnesium Hydroxide (Milk Of Magnesia 30 Ml Oral.Susp) 30 ml PO DAILY PRN PRN Reason: Constipation Last Admin: 11/04/24 16:49 Dose: 30 ml Metoclopramide HCl (Metoclopramide Hcl Oral Soln 10 Mg/10 Ml Solution) 3 mg PO TIDAC [facility] Last Admin: 12/29/24 16:12 Dose: 3 mg Mirtazapine (Mirtazapine 30 Mg Tablet) 30 mg PO BEDTIME [facility] Last Admin: 12/29/24 20:42 Dose: 30 mg Omeprazole (Omeprazole 20 Mg Capsule.Dr) 20 mg PO BID@0630,1630 [facility] Last Admin: 12/29/24 16:13 Dose: 20 mg Ondansetron HCl (Ondansetron Odt 4 Mg Tab.Rapdis) 4 mg TRANSLINGU Q4H PRN PRN Reason: Nausea and Vomiting Last Admin: 12/17/24 11:23 Dose: 4 mg Polyethylene Glycol (Polyethylene Glycol 3350 17 Gm Powd.Pack) 17 gm PO BID [facility] Last Admin: 12/29/24 20:44 Dose: Not Given Pramipexole Dihydrochloride (Pramipexole Di-Hcl 0.125 Mg Tablet) 0.125 mg PO DAILY [facility] Last Admin: 12/29/24 08:07 Dose: 0.125 mg Propranolol HCl (Propranolol Hcl 10 Mg Tablet) 10 mg PO TID PRN; Protocol PRN Reason: akathesia Pyridoxine HCl (Pyridoxine Hcl (Vitamin B6) 50 Mg Tablet) 50 mg PO DAILY [facility] Last Admin: 12/29/24 08:07 Dose: 50 mg Ropinirole HCl (Ropinirole Hcl 2 Mg Tablet) 2 mg PO DAILY@1700 [facility] Last Admin: 12/29/24 16:12 Dose: 2 mg Simethicone (Simethicone 80 Mg Tab.Chew) 80 mg PO QIDWMHS [facility] Last Admin: 12/29/24 20:42 Dose: 80 mg Trazodone HCl (Trazodone Hcl 50 Mg Tablet) 50 mg PO BEDTIME MRX1 PRN PRN Reason: Insomnia Last Admin: 12/28/24 20:22 Dose: 50 mg Allergies Allergies Allergy/AdvReac Type Severity Reaction Status Date / Time ampicillin Allergy Rash Verified 10/20/24 19:28 morphine Allergy Rash Verified 10/20/24 19:28 Penicillins Allergy Rash Verified 10/20/24 19:28 pork derived (porcine) Allergy Vomiting Verified 11/10/24 17:49 Assessment & Plan Assessment & Plan (1) MDD (major depressive disorder), recurrent episode, moderate: Status: Acute Code(s): F33.1 - Major depressive disorder, recurrent, moderate (2) 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 Barreto is a 78 year-old woman with hx of MDD who was assessed by N at request of her son who called 911 after pt had reported suicidal ideation with plan to OD. In the ED, pt adamantly denied suicidal ideation but reports feeling increasingly more depressed due to involuntary, ongoing movement of lower extremities. She attributes her depressed mood and increase anxious mood to RLS. She has also been treated as tardive akathisia, note that she was previously prescribed abilify. It is noted that she may have iron deficiency due to normocytic anemia which can exacerbate RLS. It is unclear which medications for hyperkinetic movements of the legs are actually helpful and furthermore it is not easily to differentiate whether it is tardive akathisia or RLS. She has been on psychotropic medications that are known to cause akathisia such as abilify. She reports subjective sense of restlessness. Involuntary movement seems to be throughout the day. We will have to do trial of medications that target akathisia such as propanolol and ativan versus medications such as pramipexol for RLS (note that in RLS there is an initial relief with dopamine agonist but can make it worse over time). In addition, will try iron deficiency as it is an underlying cause and exacerbating factor in RLS. PLAN 11/14 continue tx. will monitor before making substantial changes every day. 11/15 continue tx. pt somatically preoccupied. 11/16: Continue current management and treatment plan. 11/17: continue current management and treatment plan. 11/18 start buspar 10mg po TID for SHEILA. continue all other meds. 11/19 increase buspar 20mg po TID 11/20 appears calmer, less somatically preoccupied. continue current medications. 11/21 sodium stable. continues to present as less dysphoric, calmer. reports of dizziness (VS not hotn nor orthostatic), ?vertigo, will try low dose of meclizine otherwise will consult hospitalist for further management. 8.2- pt more focused on gi issues- and anxiety/forgetfulness- continue to monitor somatic complaints- dc qid poc 11/25 will lowered ropinirole as it may increasing anxiety, noted that buspar was lowered, do not think this medication was causing fogginess as pt appeared much calmer since we added buspar. She was started on low dose clonazepam. 11/26 continue tx. received one time dose xanax, but reported feeling overly sedated (although did not appear sedated) 11/27 somatically p8/9: Continue current regimen and plansreoccupied, no change in medications. 11/29 continue tx. 11/30: Continue current regimen and plans 12/01: Continue current plans and regimen 12/02 increase buspar 20mg po TID. 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 start wellbutrin XL 150 daily tomorrow for depression. also c/o anxiety-provoking and nocturnally loud peer. schedule klonopin 0.25 QHS for insomnia. otherwise continue current mgmt. awaiting placement. 12/04: slept well last night, started wellbutrin this morning without incident. continue current mgmt. will be discharging to [facility]. 12/05: slept well. c/o anxiety at 3-330 in the afternoon. pt to ask for klonopin PRN at 2-230. trend anxiety, T/C DC of wellbutrin if anxiety seems reliably increased since starting it. dispo next week likely. 12/06: anxious. schedule klonopin 0.25 mg Qdaily at 1430 per pt request. otherwise continue current mgmt. 12/07: anxious and depressed. c/o insomnia. will give wellbutrin a few more days to see if insomnia subsides and mood improves. per staf, stable and uneventful presentation. 12/08: depressed. agreeable to increase wellbutrin to 300 mg as of tomorrow. otherwise continue current mgmt. sleeping well. 12/09: started wellbutrin 300 today. c/o URI Sx, start guaifenesin. otherwise continue current mgmt. 12/10: coughin much eves/NOC per staff. pt c/o not happy, cough, and poor sleep. continue mucinex and mental health Tx plan otherwise. 12/11/24: Patient appeared to slept for 8 hours, was medication compliant but refused the MiraLax. Denies side effects. She is observed watching TV in common area. Reported that she feel anxious and depressed. She is worry about when she is leaving as she is going to stay by herself. I am depressed . Self reports that she did not sleep well last night as roommate waking her up at night telling her that she saw dogs. She reports normal stomach pain. She would hope to see the GI doctor after discharge. She reported that she will be discharged on 12/17 but not sure the name of the facility or where it is located. Denies safety concerns, denies hallucinations. No coughing observed this morning. 12/12: c/o unremitting depression, saying she does not want to live like this. interested in ECT, educated re the procedure. obtain risk strat and EKG, discuss in rounds tomorrow morning. otherwise continue current mgmt. 12/13: continues to push for ECT. seen by hospitalist, no relative contraindications to the procedure. case d/w patient's daughter chantelle as well, who avers that pt has been in this state for a long time, it's only getting worse, and medications have not been helpful. johanna supports this trial on the wishes of her mother and MD's recommendation. ECT ordered, will get pt on the schedule as soon as possible. 12/14: Cough-productive, O2 sats are lower , CXR positive. Seen by hospitalist. Antibiotics initiated, R/O pneumonia 12/15: Pt unable to tolerate doxycycline. Hospitalist will change to Ceftin. 12/16: ECT held today due to januvia and respiratory virus. mood slightly improved. plan for ECT. 12/17: COVID and flu NEG. c/o nausea, exacerbation of chronic condition, h/o gastroparesis. holding januvia. start reglan for gastroparesis. continue current mgmt otherwise. NPO past MN for ECT tomorrow. 12/18: awaiting med clearance for ECT. planning for ECT monday. otherwise continue current mgmt. glucose noted to be elevated since holding januvia the past several days. 12/19 continue current medications. pt hopefull will have ECT tomorrow. NPO from midnight. 12/20 continue tx. Had ECT #1 no complications noted or reported. 12/21:Continue ECT. 12/22: Increase Klonopin PRN to BID. Otherwise continue current management and treatment plan. 12/23: continue current management and treatment plan. 12/24 continue tx. ECT tomorrow, NPO after midnight. 12/25 continue tx. 12/26: ECT #3 completed today. pleasant, feeling improved. Sz duration longer than prior but remains suboptimal. will DC gabapentin and decrease PRN klonopin to 0.125 mg per dose. next ECT monday. continue current mgmt otherwise. Time Spent With Patient Time: Total time managing care of this patient today ____ minutes.
--- NOTE | 2024-12-30 07:51 | HO.ECTPROC ---
ECT Procedure Note Diagnosis/Treatment Date of Service: 12/31/24 Diagnosis: Major Depressive Disorder Current Treatment Number: 4 Treatment: Series Interval Clinical Notes: pt seems significantly better tolerated tx well Time: Total time managing care of this patient today ____ minutes. ECT Settings Device: THYMATRON DGx Electrode Placement: Bitemporal Program/Pulse Width: 0.50 Energy Percent: 100 Seizure Duration By EEG (in seconds): 19 Medications Administration General Anesthetic: Etomidate (12) Muscle Relaxant: Succinylcholine (60) Ancillary Medications Anti-emetics: Zofran - Pre ECT Miscillaneous Medications: Flumazenil Airway Management Airway Management: Bag Mask Ventilation Treatment Recommendations Notes: dec succ to 50 mg Pt Tolerated Procedure w/o Issue: Yes
[2024-12-30 08:48] LABS: Glucose, Whole Blood 267 mg/dL (60-115)
[2024-12-30] MEDS: Fluticasone/Vilanterol 100/25 BLST.W.DEV 1 PUFF INHALE (09:59)
[2024-12-30] MEDS: buPROPion HCl XL 300 MG TAB.ER.24H PO (10:04)
[2024-12-30 11:28] LABS: Glucose, Whole Blood 288 mg/dL (60-115)
[2024-12-30] MEDS: clonazePAM ODT 0.125 MG TAB.RAPDIS PO ×2 (11:55→21:15)
[2024-12-30 14:21] LABS: Glucose, Whole Blood 47 mg/dL (60-115)
[2024-12-30 14:44] LABS: Glucose, Whole Blood 100 mg/dL (60-115)
--- NOTE | 2024-12-30 15:10 | PC.NURSE ---
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 BG was taken and it was 47. Pt was given an apple juice, and had stated that she had just had a banana . notified. Upon recheck 15 minutes later, BG was 100. MD notified again. Pt denies symptoms.
--- NOTE | 2024-12-30 15:49 | HO.PSYCHPN ---
Subjective Subjective Date of Service: 12/30/24 Reason For Visit: SI with plan to OD on medications, increased anxie Interim History: c/o restless legs, shows MD, moving them side to side under the table. never observed prior. mood appears anxious, unchanged. ECT this morning was completed. Mental Status Exam Mental Status Exam Narrative: She is alert, pleasant and cooperative. Speech is normal. Moderate eye contact. Affect is appropriate and contained. anxiety and depression present but improved. No acute signs of psychosis. Cognitively impaired. Judgment is impaired Diagnostics Vital Signs (24Hr): Vital Signs - 24 hr 12/29/24 20:00 12/30/24 06:28 12/30/24 08:00 Temperature 97.6 F 97.6 F 98.8 F Pulse Rate 72 88 81 Respiratory Rate 17 16 24 H Blood Pressure 148/70 H 144/81 H 155/82 H Pulse Oximetry 96 95 93 Oxygen Delivery Method Room Air Room Air Room Air 12/30/24 08:00 12/30/24 08:05 12/30/24 08:10 Temperature 97.9 F 98.8 F Pulse Rate 93 80 80 Respiratory Rate 16 24 H 24 H Blood Pressure 112/64 156/91 H 142/82 H Pulse Oximetry 93 93 93 Oxygen Delivery Method Room Air Room Air Room Air 12/30/24 08:47 12/30/24 10:00 12/30/24 10:01 Temperature 98.2 F Pulse Rate 67 Respiratory Rate 16 Blood Pressure 148/80 H 147/80 H 148/80 H Pulse Oximetry 97 Oxygen Delivery Method BMI result Body Mass Index 23.3 Labs 11/02/24 20:14 12/20/24 08:43 Labs: Laboratory Results - last 48 hr 12/28/24 12/28/24 12/29/24 16:12 20:21 06:47 POC Glucose 111 134 H 257 H 12/29/24 12/29/24 12/30/24 11:20 16:23 06:14 POC Glucose 149 H 211 H 180 H 12/30/24 12/30/24 12/30/24 08:43 11:25 14:17 POC Glucose 267 H 288 H 47 L* 12/30/24 14:38 POC Glucose 100 Imaging Radiology Impressions: ITS Impressions Hip/Pelvis X-Ray 11/05/24 11:00 IMPRESSION: Unremarkable examination of the left hip. Electronically signed by: Sam Saini MD 11/05/2024 11:13 AM EDT RP KUB X-Ray 11/06/24 09:20 IMPRESSION: Large amount of stool throughout the colon. Electronically signed by: Sam Saini MD 11/06/2024 09:34 AM EDT RP Head CT 11/08/24 14:58 IMPRESSION: Left frontal soft tissue swelling. No acute intracranial abnormality. Electronically signed by: Sam Saini MD 11/08/2024 03:18 PM EDT RP Medications Medications Current Medications Acetaminophen (Acetaminophen 325 Mg Tablet) 650 mg PO Q6H PRN PRN Reason: Headache/Pain, Scale 1-10 Last Admin: 12/30/24 12:38 Dose: 650 mg Al Hydroxide/Mg Hydroxide (Magnesium Hydrox/Alum Hydrox 30 Ml Oral.Susp) 30 ml PO Q6H PRN PRN Reason: Heartburn/Nausea Last Admin: 12/17/24 06:56 Dose: 30 ml Albuterol Sulfate (Albuterol Sulfate (0.083%) 2.5 Mg/3 Ml Vial.Neb) 2.5 mg INHALE ONCE PRN PRN Reason: Shortness of Breath/Wheezing Last Admin: 12/16/24 07:11 Dose: 2.5 mg Albuterol Sulfate (Albuterol Sulfate 90 Mcg 8 Gm Inhaler) 4 puff INHALE Q4H PRN PRN Reason: Shortness Of Breath Or Wheezin Amlodipine Besylate (Amlodipine Besylate 2.5 Mg Tablet) 2.5 mg PO DAILY [facility]; Protocol Last Admin: 12/30/24 10:00 Dose: 2.5 mg Atorvastatin Calcium (Atorvastatin Calcium 20 Mg Tablet) 20 mg PO DAILY [facility] Last Admin: 12/30/24 11:53 Dose: 20 mg Bisacodyl (Bisacodyl 10 Mg Supp.Rect) 10 mg AK BEDTIME PRN PRN Reason: Constipation Last Admin: 11/04/24 20:37 Dose: 10 mg Bupropion HCl (Bupropion Hcl Xl 300 Mg Tab.Er.24h) 300 mg PO DAILY [facility] Last Admin: 12/30/24 10:04 Dose: 300 mg Buspirone HCl (Buspirone Hcl 10 Mg Tablet) 20 mg PO TID [facility] Last Admin: 12/30/24 15:39 Dose: 20 mg Calcium Carbonate (Calcium Carbonate 750 Mg Tab.Chew) 750 mg PO Q4H PRN PRN Reason: Heartburn Last Admin: 11/30/24 21:34 Dose: 750 mg Clonazepam (Clonazepam Odt 0.125 Mg Tab.Rapdis) 0.125 mg PO BID PRN PRN Reason: severe anxiety Last Admin: 12/30/24 11:55 Dose: 0.125 mg Dicyclomine HCl (Dicyclomine Hcl 10 Mg Capsule) 10 mg PO Q4H PRN PRN Reason: abdominal cramping Last Admin: 12/17/24 13:55 Dose: 10 mg Docusate Sodium (Docusate Sodium 100 Mg Capsule) 100 mg PO BID [facility] Last Admin: 12/30/24 10:00 Dose: 100 mg Duloxetine HCl (Duloxetine Hcl 60 Mg Capsule.Dr) 60 mg PO DAILY [facility] Last Admin: 12/30/24 10:00 Dose: 60 mg Fluticasone/Vilanterol (Fluticasone/Vilanterol 100/25 Blst.W.Dev) 1 puff INHALE RDAILY [facility] Last Admin: 12/30/24 09:59 Dose: 1 puff Glipizide (Glipizide Xl 2.5 Mg Tab.Er.24) 2.5 mg PO DAILY [facility] Last Admin: 12/30/24 10:00 Dose: 2.5 mg Guaifenesin (Guaifenesin La 600 Mg Tab.Er.12h) 1,200 mg PO BID PRN PRN Reason: Cough Last Admin: 12/16/24 14:35 Dose: 1,200 mg Insulin Human Lispro (Insulin Lispro 100 Unit/Ml 3 Ml Vial) 0 unit SUBCUT TIDAC [facility]; Protocol Last Admin: 12/30/24 11:54 Dose: 6 unit Lisinopril (Lisinopril 2.5 Mg Tablet) 2.5 mg PO DAILY [facility]; Protocol Last Admin: 12/30/24 10:01 Dose: 2.5 mg Magnesium Hydroxide (Milk Of Magnesia 30 Ml Oral.Susp) 30 ml PO DAILY PRN PRN Reason: Constipation Last Admin: 11/04/24 16:49 Dose: 30 ml Mirtazapine (Mirtazapine 30 Mg Tablet) 30 mg PO BEDTIME [facility] Last Admin: 12/29/24 20:42 Dose: 30 mg Omeprazole (Omeprazole 20 Mg Capsule.Dr) 20 mg PO BID@0630,1630 [facility] Last Admin: 12/30/24 10:00 Dose: 20 mg Ondansetron HCl (Ondansetron Odt 4 Mg Tab.Rapdis) 4 mg TRANSLINGU Q4H PRN PRN Reason: Nausea and Vomiting Last Admin: 12/17/24 11:23 Dose: 4 mg Polyethylene Glycol (Polyethylene Glycol 3350 17 Gm Powd.Pack) 17 gm PO BID [facility] Last Admin: 12/30/24 10:01 Dose: Not Given Pramipexole Dihydrochloride (Pramipexole Di-Hcl 0.125 Mg Tablet) 0.125 mg PO DAILY [facility] Last Admin: 12/30/24 10:00 Dose: 0.125 mg Pyridoxine HCl (Pyridoxine Hcl (Vitamin B6) 50 Mg Tablet) 50 mg PO DAILY [facility] Last Admin: 12/30/24 10:00 Dose: 50 mg Ropinirole HCl (Ropinirole Hcl 2 Mg Tablet) 2 mg PO DAILY@1700 [facility] Last Admin: 12/29/24 16:12 Dose: 2 mg Simethicone (Simethicone 80 Mg Tab.Chew) 80 mg PO QIDWMHS [facility] Last Admin: 12/30/24 11:55 Dose: 80 mg Trazodone HCl (Trazodone Hcl 50 Mg Tablet) 50 mg PO BEDTIME MRX1 PRN PRN Reason: Insomnia Last Admin: 12/28/24 20:22 Dose: 50 mg Allergies Allergies Allergy/AdvReac Type Severity Reaction Status Date / Time ampicillin Allergy Rash Verified 10/20/24 19:28 morphine Allergy Rash Verified 10/20/24 19:28 Penicillins Allergy Rash Verified 10/20/24 19:28 pork derived (porcine) Allergy Vomiting Verified 11/10/24 17:49 Assessment & Plan Assessment & Plan (1) MDD (major depressive disorder), recurrent episode, moderate: Status: Acute Code(s): F33.1 - Major depressive disorder, recurrent, moderate (2) 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 Barreto is a 78 year-old woman with hx of MDD who was assessed by N at request of her son who called 911 after pt had reported suicidal ideation with plan to OD. In the ED, pt adamantly denied suicidal ideation but reports feeling increasingly more depressed due to involuntary, ongoing movement of lower extremities. She attributes her depressed mood and increase anxious mood to RLS. She has also been treated as tardive akathisia, note that she was previously prescribed abilify. It is noted that she may have iron deficiency due to normocytic anemia which can exacerbate RLS. It is unclear which medications for hyperkinetic movements of the legs are actually helpful and furthermore it is not easily to differentiate whether it is tardive akathisia or RLS. She has been on psychotropic medications that are known to cause akathisia such as abilify. She reports subjective sense of restlessness. Involuntary movement seems to be throughout the day. We will have to do trial of medications that target akathisia such as propanolol and ativan versus medications such as pramipexol for RLS (note that in RLS there is an initial relief with dopamine agonist but can make it worse over time). In addition, will try iron deficiency as it is an underlying cause and exacerbating factor in RLS. PLAN 11/14 continue tx. will monitor before making substantial changes every day. 11/15 continue tx. pt somatically preoccupied. 11/16: Continue current management and treatment plan. 11/17: continue current management and treatment plan. 11/18 start buspar 10mg po TID for SHEILA. continue all other meds. 11/19 increase buspar 20mg po TID 11/20 appears calmer, less somatically preoccupied. continue current medications. 11/21 sodium stable. continues to present as less dysphoric, calmer. reports of dizziness (VS not hotn nor orthostatic), ?vertigo, will try low dose of meclizine otherwise will consult hospitalist for further management. 8.2- pt more focused on gi issues- and anxiety/forgetfulness- continue to monitor somatic complaints- dc qid poc 11/25 will lowered ropinirole as it may increasing anxiety, noted that buspar was lowered, do not think this medication was causing fogginess as pt appeared much calmer since we added buspar. She was started on low dose clonazepam. 11/26 continue tx. received one time dose xanax, but reported feeling overly sedated (although did not appear sedated) 11/27 somatically p8: Continue current regimen and plansreoccupied, no change in medications. 11/29 continue tx. 11/30: Continue current regimen and plans 12/01: Continue current plans and regimen 12/02 increase buspar 20mg po TID. 12/03: reports depression not improving, c/o feeling low energy and motivation, saying she needs a last picker. start wellbutrin XL 150 daily tomorrow for depression. also c/o anxiety-provoking and nocturnally loud peer. schedule klonopin 0.25 QHS for insomnia. otherwise continue current mgmt. awaiting placement. 12/04: slept well last night, started wellbutrin this morning without incident. continue current mgmt. will be discharging to [facility]. 12/05: slept well. c/o anxiety at 3-330 in the afternoon. pt to ask for klonopin PRN at 2-230. trend anxiety, T/C DC of wellbutrin if anxiety seems reliably increased since starting it. dispo next week likely. 12/06: anxious. schedule klonopin 0.25 mg Qdaily at 1430 per pt request. otherwise continue current mgmt. 12/07: anxious and depressed. c/o insomnia. will give wellbutrin a few more days to see if insomnia subsides and mood improves. per staf, stable and uneventful presentation. 12/08: depressed. agreeable to increase wellbutrin to 300 mg as of tomorrow. otherwise continue current mgmt. sleeping well. 12/09: started wellbutrin 300 today. c/o URI Sx, start guaifenesin. otherwise continue current mgmt. 12/10: coughin much eves/NOC per staff. pt c/o not happy, cough, and poor sleep. continue mucinex and mental health Tx plan otherwise. 12/11/24: Patient appeared to slept for 8 hours, was medication compliant but refused the MiraLax. Denies side effects. She is observed watching TV in common area. Reported that she feel anxious and depressed. She is worry about when she is leaving as she is going to stay by herself. I am depressed . Self reports that she did not sleep well last night as roommate waking her up at night telling her that she saw dogs. She reports normal stomach pain. She would hope to see the GI doctor after discharge. She reported that she will be discharged on 12/17 but not sure the name of the facility or where it is located. Denies safety concerns, denies hallucinations. No coughing observed this morning. 12/12: c/o unremitting depression, saying she does not want to live like this. interested in ECT, educated re the procedure. obtain risk strat and EKG, discuss in rounds tomorrow morning. otherwise continue current mgmt. 12/13: continues to push for ECT. seen by hospitalist, no relative contraindications to the procedure. case d/w patient's daughter chantelle as well, who avers that pt has been in this state for a long time, it's only getting worse, and medications have not been helpful. johanna supports this trial on the wishes of her mother and MD's recommendation. ECT ordered, will get pt on the schedule as soon as possible. 12/14: Cough-productive, O2 sats are lower , CXR positive. Seen by hospitalist. Antibiotics initiated, R/O pneumonia 12/15: Pt unable to tolerate doxycycline. Hospitalist will change to Ceftin. 12/16: ECT held today due to januvia and respiratory virus. mood slightly improved. plan for ECT. 12/17: COVID and flu NEG. c/o nausea, exacerbation of chronic condition, h/o gastroparesis. holding januvia. start reglan for gastroparesis. continue current mgmt otherwise. NPO past MN for ECT tomorrow. 12/18: awaiting med clearance for ECT. planning for ECT monday. otherwise continue current mgmt. glucose noted to be elevated since holding januvia the past several days. 12/19 continue current medications. pt hopefull will have ECT tomorrow. NPO from midnight. 12/20 continue tx. Had ECT #1 no complications noted or reported. 12/21:Continue ECT. 12/22: Increase Klonopin PRN to BID. Otherwise continue current management and treatment plan. 12/23: continue current management and treatment plan. 12/24 continue tx. ECT tomorrow, NPO after midnight. 12/25 continue tx. 12/26: ECT #3 completed today. pleasant, feeling improved. Sz duration longer than prior but remains suboptimal. will DC gabapentin and decrease PRN klonopin to 0.125 mg per dose. next ECT monday. continue current mgmt otherwise. 12/28 Patient says she is all right and no complaints other than restless leg/akathisia which she says is bothering her. Discussed ECT and patient says she wants to continue getting ECT which she thinks is helpful and is why she wants to remain inpatient. Export Manager agreed to: -order extra ropinrile 1mg daily prn 12/29Patient says she is so-so and Continues to have akathisia; patient benefitted somewhat from propranolol, which is preferable to increasing ropinirole (BP these mildly hypertensive; regular heart rate). Review of chart and patient was started on metoclopramide for diabetic gastroparesis. Discussed with patient who agrees to lowering metoclopramide; will increase propranolol and DC p.r.n. ropinirole -lower metoclopramide to 3 mg t.i.d. a.c.; (no N/V or constipation) -increase to propranolol 10 mg t.i.d. p.r.n. for restless leg -DC extra p.r.n. ropinirole 12/30: c/o restless legs. notes reviewed on the subject, plan noted. had ECT today, believes she is only having one more. anxiety Sx appear worse than prior, difficult to assess mood under the circumstances. continue current mgmt for now. Reason for continued inpatient stay Substantial Risk for: inability to function and rapid decompensation Time Spent With Patient Time: Total time managing care of this patient today _25___ minutes.
[2024-12-30 16:32] LABS: Glucose, Whole Blood 140 mg/dL (60-115)
[2024-12-30 19:31] LABS: Glucose, Whole Blood 179 mg/dL (60-115)
[2024-12-31 06:28] LABS: Glucose, Whole Blood 236 mg/dL (60-115)
[2024-12-31 08:18] VITALS: BP 162/74; PULSE 90; RESP 18; TEMP 35.9; O2SAT 98
[2024-12-31] MEDS: Fluticasone/Vilanterol 100/25 BLST.W.DEV 1 PUFF INHALE (08:20)
[2024-12-31] MEDS: buPROPion HCl XL 300 MG TAB.ER.24H PO (08:22)
[2024-12-31 11:30] LABS: Glucose, Whole Blood 245 mg/dL (60-115)
--- NOTE | 2024-12-31 14:53 | HO.PSYCHPN ---
Subjective Subjective Date of Service: 12/31/24 Reason For Visit: SI with plan to OD on medications, increased anxie Interim History: reglan has been DCed, but pt continues to c/o RLS. ropinirole Rx noted. pt reports her mood is improved, however, looking forward to next ECT Tx tomorrow. Mental Status Exam Mental Status Exam Narrative: She is alert, pleasant and cooperative. Speech is normal. good eye contact. Affect is appropriate and contained. anxiety and depression much improved. No acute signs of psychosis. Cognitively impaired. Judgment is impaired Diagnostics Vital Signs (24Hr): Vital Signs - 24 hr 12/30/24 20:00 12/31/24 08:18 Temperature 97.9 F 96.7 F L Pulse Rate 78 90 Respiratory Rate 18 18 Blood Pressure 122/75 162/74 H Pulse Oximetry 95 98 Oxygen Delivery Method Room Air Room Air BMI result Body Mass Index 23.3 Labs 11/02/24 20:14 12/20/24 08:43 Labs: Laboratory Results - last 48 hr 12/29/24 12/30/24 12/30/24 16:23 06:14 08:43 POC Glucose 211 H 180 H 267 H 12/30/24 12/30/24 12/30/24 11:25 14:17 14:38 POC Glucose 288 H 47 L* 100 12/30/24 12/30/24 12/31/24 16:28 19:26 06:21 POC Glucose 140 H 179 H 236 H 12/31/24 11:26 POC Glucose 245 H Imaging Radiology Impressions: ITS Impressions Hip/Pelvis X-Ray 11/05/24 11:00 IMPRESSION: Unremarkable examination of the left hip. Electronically signed by: Sam Saini MD 11/05/2024 11:13 AM EDT RP KUB X-Ray 11/06/24 09:20 IMPRESSION: Large amount of stool throughout the colon. Electronically signed by: Sam Saini MD 11/06/2024 09:34 AM EDT RP Head CT 11/08/24 14:58 IMPRESSION: Left frontal soft tissue swelling. No acute intracranial abnormality. Electronically signed by: Sam Saini MD 11/08/2024 03:18 PM EDT RP Medications Medications Current Medications Acetaminophen (Acetaminophen 325 Mg Tablet) 650 mg PO Q6H PRN PRN Reason: Headache/Pain, Scale 1-10 Last Admin: 12/30/24 12:38 Dose: 650 mg Al Hydroxide/Mg Hydroxide (Magnesium Hydrox/Alum Hydrox 30 Ml Oral.Susp) 30 ml PO Q6H PRN PRN Reason: Heartburn/Nausea Last Admin: 12/17/24 06:56 Dose: 30 ml Albuterol Sulfate (Albuterol Sulfate (0.083%) 2.5 Mg/3 Ml Vial.Neb) 2.5 mg INHALE ONCE PRN PRN Reason: Shortness of Breath/Wheezing Last Admin: 12/16/24 07:11 Dose: 2.5 mg Albuterol Sulfate (Albuterol Sulfate 90 Mcg 8 Gm Inhaler) 4 puff INHALE Q4H PRN PRN Reason: Shortness Of Breath Or Wheezin Amlodipine Besylate (Amlodipine Besylate 2.5 Mg Tablet) 2.5 mg PO DAILY [facility]; Protocol Last Admin: 12/31/24 08:22 Dose: 2.5 mg Atorvastatin Calcium (Atorvastatin Calcium 20 Mg Tablet) 20 mg PO DAILY [facility] Last Admin: 12/31/24 08:23 Dose: 20 mg Bisacodyl (Bisacodyl 10 Mg Supp.Rect) 10 mg IA BEDTIME PRN PRN Reason: Constipation Last Admin: 11/04/24 20:37 Dose: 10 mg Bupropion HCl (Bupropion Hcl Xl 300 Mg Tab.Er.24h) 300 mg PO DAILY [facility] Last Admin: 12/31/24 08:22 Dose: 300 mg Buspirone HCl (Buspirone Hcl 10 Mg Tablet) 20 mg PO TID [facility] Last Admin: 12/31/24 14:19 Dose: 20 mg Calcium Carbonate (Calcium Carbonate 750 Mg Tab.Chew) 750 mg PO Q4H PRN PRN Reason: Heartburn Last Admin: 11/30/24 21:34 Dose: 750 mg Clonazepam (Clonazepam Odt 0.125 Mg Tab.Rapdis) 0.125 mg PO BID PRN PRN Reason: severe anxiety Last Admin: 12/30/24 21:15 Dose: 0.125 mg Dicyclomine HCl (Dicyclomine Hcl 10 Mg Capsule) 10 mg PO Q4H PRN PRN Reason: abdominal cramping Last Admin: 12/17/24 13:55 Dose: 10 mg Docusate Sodium (Docusate Sodium 100 Mg Capsule) 100 mg PO BID [facility] Last Admin: 12/31/24 08:23 Dose: 100 mg Duloxetine HCl (Duloxetine Hcl 60 Mg Capsule.Dr) 60 mg PO DAILY [facility] Last Admin: 12/31/24 08:23 Dose: 60 mg Fluticasone/Vilanterol (Fluticasone/Vilanterol 100/25 Blst.W.Dev) 1 puff INHALE RDAILY [facility] Last Admin: 12/31/24 08:20 Dose: 1 puff Glipizide (Glipizide Xl 2.5 Mg Tab.Er.24) 2.5 mg PO DAILY [facility] Last Admin: 12/31/24 08:22 Dose: 2.5 mg Guaifenesin (Guaifenesin La 600 Mg Tab.Er.12h) 1,200 mg PO BID PRN PRN Reason: Cough Last Admin: 12/16/24 14:35 Dose: 1,200 mg Insulin Human Lispro (Insulin Lispro 100 Unit/Ml 3 Ml Vial) 0 unit SUBCUT TIDAC [facility]; Protocol Last Admin: 12/31/24 11:36 Dose: 4 unit Lisinopril (Lisinopril 2.5 Mg Tablet) 2.5 mg PO DAILY [facility]; Protocol Last Admin: 12/31/24 08:23 Dose: 2.5 mg Magnesium Hydroxide (Milk Of Magnesia 30 Ml Oral.Susp) 30 ml PO DAILY PRN PRN Reason: Constipation Last Admin: 11/04/24 16:49 Dose: 30 ml Mirtazapine (Mirtazapine 30 Mg Tablet) 30 mg PO BEDTIME [facility] Last Admin: 12/30/24 21:14 Dose: 30 mg Omeprazole (Omeprazole 20 Mg Capsule.Dr) 20 mg PO BID@0630,1630 [facility] Last Admin: 12/31/24 06:20 Dose: 20 mg Ondansetron HCl (Ondansetron Odt 4 Mg Tab.Rapdis) 4 mg TRANSLINGU Q4H PRN PRN Reason: Nausea and Vomiting Last Admin: 12/31/24 11:35 Dose: 4 mg Polyethylene Glycol (Polyethylene Glycol 3350 17 Gm Powd.Pack) 17 gm PO BID [facility] Last Admin: 12/31/24 08:24 Dose: Not Given Pramipexole Dihydrochloride (Pramipexole Di-Hcl 0.125 Mg Tablet) 0.125 mg PO DAILY [facility] Last Admin: 12/31/24 08:21 Dose: 0.125 mg Pyridoxine HCl (Pyridoxine Hcl (Vitamin B6) 50 Mg Tablet) 50 mg PO DAILY [facility] Last Admin: 12/31/24 08:22 Dose: 50 mg Ropinirole HCl (Ropinirole Hcl 2 Mg Tablet) 2 mg PO DAILY@1700 [facility] Last Admin: 12/30/24 17:11 Dose: 2 mg Simethicone (Simethicone 80 Mg Tab.Chew) 80 mg PO QIDWMHS [facility] Last Admin: 12/31/24 11:36 Dose: 80 mg Trazodone HCl (Trazodone Hcl 50 Mg Tablet) 50 mg PO BEDTIME MRX1 PRN PRN Reason: Insomnia Last Admin: 12/28/24 20:22 Dose: 50 mg Allergies Allergies Allergy/AdvReac Type Severity Reaction Status Date / Time ampicillin Allergy Rash Verified 10/20/24 19:28 morphine Allergy Rash Verified 10/20/24 19:28 Penicillins Allergy Rash Verified 10/20/24 19:28 pork derived (porcine) Allergy Vomiting Verified 11/10/24 17:49 Assessment & Plan Assessment & Plan (1) MDD (major depressive disorder), recurrent episode, moderate: Status: Acute Code(s): F33.1 - Major depressive disorder, recurrent, moderate (2) 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 Barreto is a 78 year-old woman with hx of MDD who was assessed by N at request of her son who called 911 after pt had reported suicidal ideation with plan to OD. In the ED, pt adamantly denied suicidal ideation but reports feeling increasingly more depressed due to involuntary, ongoing movement of lower extremities. She attributes her depressed mood and increase anxious mood to RLS. She has also been treated as tardive akathisia, note that she was previously prescribed abilify. It is noted that she may have iron deficiency due to normocytic anemia which can exacerbate RLS. It is unclear which medications for hyperkinetic movements of the legs are actually helpful and furthermore it is not easily to differentiate whether it is tardive akathisia or RLS. She has been on psychotropic medications that are known to cause akathisia such as abilify. She reports subjective sense of restlessness. Involuntary movement seems to be throughout the day. We will have to do trial of medications that target akathisia such as propanolol and ativan versus medications such as pramipexol for RLS (note that in RLS there is an initial relief with dopamine agonist but can make it worse over time). In addition, will try iron deficiency as it is an underlying cause and exacerbating factor in RLS. PLAN 11/14 continue tx. will monitor before making substantial changes every day. 11/15 continue tx. pt somatically preoccupied. 11/16: Continue current management and treatment plan. 11/17: continue current management and treatment plan. 11/18 start buspar 10mg po TID for SHEILA. continue all other meds. 11/19 increase buspar 20mg po TID 11/20 appears calmer, less somatically preoccupied. continue current medications. 11/21 sodium stable. continues to present as less dysphoric, calmer. reports of dizziness (VS not hotn nor orthostatic), ?vertigo, will try low dose of meclizine otherwise will consult hospitalist for further management. 8.2- pt more focused on gi issues- and anxiety/forgetfulness- continue to monitor somatic complaints- dc qid poc 11/25 will lowered ropinirole as it may increasing anxiety, noted that buspar was lowered, do not think this medication was causing fogginess as pt appeared much calmer since we added buspar. She was started on low dose clonazepam. 11/26 continue tx. received one time dose xanax, but reported feeling overly sedated (although did not appear sedated) 11/27 somatically p8/9: Continue current regimen and plansreoccupied, no change in medications. 11/29 continue tx. 11/30: Continue current regimen and plans 12/01: Continue current plans and regimen 12/02 increase buspar 20mg po TID. 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 start wellbutrin XL 150 daily tomorrow for depression. also c/o anxiety-provoking and nocturnally loud peer. schedule klonopin 0.25 QHS for insomnia. otherwise continue current mgmt. awaiting placement. 12/04: slept well last night, started wellbutrin this morning without incident. continue current mgmt. will be discharging to [facility]. 12/05: slept well. c/o anxiety at 3-330 in the afternoon. pt to ask for klonopin PRN at 2-230. trend anxiety, T/C DC of wellbutrin if anxiety seems reliably increased since starting it. dispo next week likely. 12/06: anxious. schedule klonopin 0.25 mg Qdaily at 1430 per pt request. otherwise continue current mgmt. 12/07: anxious and depressed. c/o insomnia. will give wellbutrin a few more days to see if insomnia subsides and mood improves. per staf, stable and uneventful presentation. 12/08: depressed. agreeable to increase wellbutrin to 300 mg as of tomorrow. otherwise continue current mgmt. sleeping well. 12/09: started wellbutrin 300 today. c/o URI Sx, start guaifenesin. otherwise continue current mgmt. 12/10: coughin much eves/NOC per staff. pt c/o not happy, cough, and poor sleep. continue mucinex and mental health Tx plan otherwise. 12/11/24: Patient appeared to slept for 8 hours, was medication compliant but refused the MiraLax. Denies side effects. She is observed watching TV in common area. Reported that she feel anxious and depressed. She is worry about when she is leaving as she is going to stay by herself. I am depressed . Self reports that she did not sleep well last night as roommate waking her up at night telling her that she saw dogs. She reports normal stomach pain. She would hope to see the GI doctor after discharge. She reported that she will be discharged on 12/17 but not sure the name of the facility or where it is located. Denies safety concerns, denies hallucinations. No coughing observed this morning. 12/12: c/o unremitting depression, saying she does not want to live like this. interested in ECT, educated re the procedure. obtain risk strat and EKG, discuss in rounds tomorrow morning. otherwise continue current mgmt. 8/22: continues to push for ECT. seen by hospitalist, no relative contraindications to the procedure. case d/w patient's daughter chantelle as well, who avers that pt has been in this state for a long time, it's only getting worse, and medications have not been helpful. johanna supports this trial on the wishes of her mother and MD's recommendation. ECT ordered, will get pt on the schedule as soon as possible. 12/14: Cough-productive, O2 sats are lower , CXR positive. Seen by hospitalist. Antibiotics initiated, R/O pneumonia 12/15: Pt unable to tolerate doxycycline. Hospitalist will change to Ceftin. 12/16: ECT held today due to januvia and respiratory virus. mood slightly improved. plan for ECT. 12/17: COVID and flu NEG. c/o nausea, exacerbation of chronic condition, h/o gastroparesis. holding januvia. start reglan for gastroparesis. continue current mgmt otherwise. NPO past MN for ECT tomorrow. 12/18: awaiting med clearance for ECT. planning for ECT monday. otherwise continue current mgmt. glucose noted to be elevated since holding januvia the past several days. 12/19 continue current medications. pt hopefull will have ECT tomorrow. NPO from midnight. 12/20 continue tx. Had ECT #1 no complications noted or reported. 12/21:Continue ECT. 12/22: Increase Klonopin PRN to BID. Otherwise continue current management and treatment plan. 12/23: continue current management and treatment plan. 12/24 continue tx. ECT tomorrow, NPO after midnight. 12/25 continue tx. 12/26: ECT #3 completed today. pleasant, feeling improved. Sz duration longer than prior but remains suboptimal. will DC gabapentin and decrease PRN klonopin to 0.125 mg per dose. next ECT monday. continue current mgmt otherwise. 12/28 Patient says she is all right and no complaints other than restless leg/akathisia which she says is bothering her. Discussed ECT and patient says she wants to continue getting ECT which she thinks is helpful and is why she wants to remain inpatient. Senior Financial Consultant agreed to: -order extra ropinrile 1mg daily prn 12/29Patient says she is so-so and Continues to have akathisia; patient benefitted somewhat from propranolol, which is preferable to increasing ropinirole (BP these mildly hypertensive; regular heart rate). Review of chart and patient was started on metoclopramide for diabetic gastroparesis. Discussed with patient who agrees to lowering metoclopramide; will increase propranolol and DC p.r.n. ropinirole -lower metoclopramide to 3 mg t.i.d. a.c.; (no N/V or constipation) -increase to propranolol 10 mg t.i.d. p.r.n. for restless leg -DC extra p.r.n. ropinirole 12/30: c/o restless legs. notes reviewed on the subject, plan noted. had ECT today, believes she is only having one more. anxiety Sx appear worse than prior, difficult to assess mood under the circumstances. continue current mgmt for now. 12/31: reglan DCed but still c/o RLS. requip Rx noted. ECT tomorrow. i don't feel down. NPO past MN, otherwise continue current mgmt. Reason for continued inpatient stay Substantial Risk for: inability to function and rapid decompensation Time Spent With Patient Time: Total time managing care of this patient today __25__ minutes.
[2024-12-31 16:11] LABS: Glucose, Whole Blood 166 mg/dL (60-115)
[2024-12-31] MEDS: Magnesium Hydrox/Alum Hydrox 30 ML ORAL.SUSP PO (18:46)
[2024-12-31 20:00] VITALS: BP 139/76; PULSE 80; RESP 18; TEMP 36.4; O2SAT 99
[2024-12-31 20:50] LABS: Glucose, Whole Blood 130 mg/dL (60-115)
[2025-01-01] VITALS (12 sets, daily range): BP systolic 137–182; BP diastolic 64–96; PULSE 72–90; RESP 16–18; TEMP 36.3–37.6; O2SAT 95–99
[2025-01-01 06:15] LABS: Glucose, Whole Blood 186 mg/dL (60-115)
[2025-01-01] MEDS: buPROPion HCl XL 300 MG TAB.ER.24H PO (09:09)
[2025-01-01] MEDS: Fluticasone/Vilanterol 100/25 BLST.W.DEV 1 PUFF INHALE (09:10)
[2025-01-01] MEDS: clonazePAM ODT 0.125 MG TAB.RAPDIS PO (10:00)
[2025-01-01 10:40] LABS: Glucose, Whole Blood 263 mg/dL (60-115)
--- NOTE | 2025-01-01 11:05 | P.PNPSI_ITS ---
Subjective Subjective Date of Service: 01/01/25 Reason For Visit: SI with plan to OD on medications, increased anxie Interim History: calm, pleasant. appears more relaxed. awaiting ECT for the afternoon. c/o RLS Sx. reviewed recent gabapentin script and the possibility it was meant to address RLS. plan to restart denisse once ECT course is completed. per staff, FSBS 236, 245, 166, 130 in past 24H. anxious, somatic. slept 8 hours. Mental Status Exam Mental Status Exam Narrative: She is alert, pleasant and cooperative. Speech is normal. good eye contact. Affect is appropriate and contained. anxiety and depression much improved. No acute signs of psychosis. Cognitively impaired. Judgment is impaired Diagnostics Vital Signs (24Hr): Vital Signs - 24 hr 12/31/24 20:00 01/01/25 08:00 01/01/25 09:08 Temperature 97.5 F 98.3 F Pulse Rate 80 90 Respiratory Rate 18 18 Blood Pressure 139/76 138/75 138/75 Pulse Oximetry 99 97 Oxygen Delivery Method Room Air Room Air 01/01/25 09:09 Temperature Pulse Rate Respiratory Rate Blood Pressure 138/75 Pulse Oximetry Oxygen Delivery Method BMI result Body Mass Index 23.3 Labs 11/02/24 20:14 12/20/24 08:43 Labs: Laboratory Results - last 48 hr 12/30/24 12/30/24 12/30/24 11:25 14:17 14:38 POC Glucose 288 H 47 L* 100 12/30/24 12/30/24 12/31/24 16:28 19:26 06:21 POC Glucose 140 H 179 H 236 H 12/31/24 12/31/24 12/31/24 11:26 16:07 20:36 POC Glucose 245 H 166 H 130 H 01/01/25 01/01/25 06:10 10:35 POC Glucose 186 H 263 H Imaging Radiology Impressions: ITS Impressions Hip/Pelvis X-Ray 11/05/24 11:00 IMPRESSION: Unremarkable examination of the left hip. Electronically signed by: Sam Saini MD 11/05/2024 11:13 AM EDT RP KUB X-Ray 11/06/24 09:20 IMPRESSION: Large amount of stool throughout the colon. Electronically signed by: Sam Saini MD 11/06/2024 09:34 AM EDT RP Head CT 11/08/24 14:58 IMPRESSION: Left frontal soft tissue swelling. No acute intracranial abnormality. Electronically signed by: Sam Saini MD 11/08/2024 03:18 PM EDT RP Medications Medications Current Medications Acetaminophen (Acetaminophen 325 Mg Tablet) 650 mg PO Q6H PRN PRN Reason: Headache/Pain, Scale 1-10 Last Admin: 12/31/24 20:40 Dose: 650 mg Al Hydroxide/Mg Hydroxide (Magnesium Hydrox/Alum Hydrox 30 Ml Oral.Susp) 30 ml PO Q6H PRN PRN Reason: Heartburn/Nausea Last Admin: 12/31/24 18:46 Dose: 30 ml Albuterol Sulfate (Albuterol Sulfate (0.083%) 2.5 Mg/3 Ml Vial.Neb) 2.5 mg INHALE ONCE PRN PRN Reason: Shortness of Breath/Wheezing Last Admin: 12/16/24 07:11 Dose: 2.5 mg Albuterol Sulfate (Albuterol Sulfate 90 Mcg 8 Gm Inhaler) 4 puff INHALE Q4H PRN PRN Reason: Shortness Of Breath Or Wheezin Amlodipine Besylate (Amlodipine Besylate 2.5 Mg Tablet) 2.5 mg PO DAILY RICHARD; Protocol Last Admin: 01/01/25 09:09 Dose: 2.5 mg Atorvastatin Calcium (Atorvastatin Calcium 20 Mg Tablet) 20 mg PO DAILY RICHARD Last Admin: 01/01/25 09:10 Dose: 20 mg Bisacodyl (Bisacodyl 10 Mg Supp.Rect) 10 mg TX BEDTIME PRN PRN Reason: Constipation Last Admin: 11/04/24 20:37 Dose: 10 mg Bupropion HCl (Bupropion Hcl Xl 300 Mg Tab.Er.24h) 300 mg PO DAILY IRCHARD Last Admin: 01/01/25 09:09 Dose: 300 mg Buspirone HCl (Buspirone Hcl 10 Mg Tablet) 20 mg PO TID RICHARD Last Admin: 01/01/25 09:10 Dose: 20 mg Calcium Carbonate (Calcium Carbonate 750 Mg Tab.Chew) 750 mg PO Q4H PRN PRN Reason: Heartburn Last Admin: 11/30/24 21:34 Dose: 750 mg Clonazepam (Clonazepam Odt 0.125 Mg Tab.Rapdis) 0.125 mg PO BID PRN PRN Reason: severe anxiety Last Admin: 01/01/25 10:00 Dose: 0.125 mg Dicyclomine HCl (Dicyclomine Hcl 10 Mg Capsule) 10 mg PO Q4H PRN PRN Reason: abdominal cramping Last Admin: 12/17/24 13:55 Dose: 10 mg Docusate Sodium (Docusate Sodium 100 Mg Capsule) 100 mg PO BID [facility] Last Admin: 01/01/25 09:29 Dose: 100 mg Duloxetine HCl (Duloxetine Hcl 60 Mg Capsule.Dr) 60 mg PO DAILY [facility] Last Admin: 01/01/25 09:09 Dose: 60 mg Fluticasone/Vilanterol (Fluticasone/Vilanterol 100/ Blst.W.Dev) 1 puff INHALE RDAILY [facility] Last Admin: 01/01/25 09:10 Dose: 1 puff Glipizide (Glipizide Xl 2.5 Mg Tab.Er.24) 2.5 mg PO DAILY [facility] Last Admin: 01/01/25 09:09 Dose: 2.5 mg Guaifenesin (Guaifenesin La 600 Mg Tab.Er.12h) 1,200 mg PO BID PRN PRN Reason: Cough Last Admin: 12/16/24 14:35 Dose: 1,200 mg Insulin Human Lispro (Insulin Lispro 100 Unit/Ml 3 Ml Vial) 0 unit SUBCUT TIDAC [facility]; Protocol Last Admin: 01/01/25 09:29 Dose: Not Given Lisinopril (Lisinopril 2.5 Mg Tablet) 2.5 mg PO DAILY [facility]; Protocol Last Admin: 01/01/25 09:08 Dose: 2.5 mg Magnesium Hydroxide (Milk Of Magnesia 30 Ml Oral.Susp) 30 ml PO DAILY PRN PRN Reason: Constipation Last Admin: 11/04/24 16:49 Dose: 30 ml Mirtazapine (Mirtazapine 30 Mg Tablet) 30 mg PO BEDTIME [facility] Last Admin: 12/31/24 20:41 Dose: 30 mg Omeprazole (Omeprazole 20 Mg Capsule.Dr) 20 mg PO BID@0630,1630 [facility] Last Admin: 01/01/25 10:40 Dose: Not Given Ondansetron HCl (Ondansetron Odt 4 Mg Tab.Rapdis) 4 mg TRANSLINGU Q4H PRN PRN Reason: Nausea and Vomiting Last Admin: 12/31/24 11:35 Dose: 4 mg Polyethylene Glycol (Polyethylene Glycol 3350 17 Gm Powd.Pack) 17 gm PO BID [facility] Last Admin: 01/01/25 10:20 Dose: Not Given Pramipexole Dihydrochloride (Pramipexole Di-Hcl 0.125 Mg Tablet) 0.125 mg PO DAILY [facility] Last Admin: 01/01/25 09:09 Dose: 0.125 mg Pyridoxine HCl (Pyridoxine Hcl (Vitamin B6) 50 Mg Tablet) 50 mg PO DAILY [facility] Last Admin: 01/01/25 09:09 Dose: 50 mg Ropinirole HCl (Ropinirole Hcl 2 Mg Tablet) 2 mg PO DAILY@1700 [facility] Last Admin: 12/31/24 16:16 Dose: 2 mg Simethicone (Simethicone 80 Mg Tab.Chew) 80 mg PO QIDWMHS [facility] Last Admin: 01/01/25 09:10 Dose: 80 mg Trazodone HCl (Trazodone Hcl 50 Mg Tablet) 50 mg PO BEDTIME MRX1 PRN PRN Reason: Insomnia Last Admin: 12/31/24 20:40 Dose: 50 mg Allergies Allergies Allergy/AdvReac Type Severity Reaction Status Date / Time ampicillin Allergy Rash Verified 10/20/24 19:28 morphine Allergy Rash Verified 10/20/24 19:28 Penicillins Allergy Rash Verified 10/20/24 19:28 pork derived (porcine) Allergy Vomiting Verified 11/10/24 17:49 Assessment & Plan Assessment & Plan (1) MDD (major depressive disorder), recurrent episode, moderate: Status: Acute Code(s): F33.1 - Major depressive disorder, recurrent, moderate (2) 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 Barreto is a 78 year-old woman with hx of MDD who was assessed by N at request of her son who called 911 after pt had reported suicidal ideation with plan to OD. In the ED, pt adamantly denied suicidal ideation but reports feeling increasingly more depressed due to involuntary, ongoing movement of lower extremities. She attributes her depressed mood and increase anxious mood to RLS. She has also been treated as tardive akathisia, note that she was previously prescribed abilify. It is noted that she may have iron deficiency due to normocytic anemia which can exacerbate RLS. It is unclear which medications for hyperkinetic movements of the legs are actually helpful and furthermore it is not easily to differentiate whether it is tardive akathisia or RLS. She has been on psychotropic medications that are known to cause akathisia such as abilify. She reports subjective sense of restlessness. Involuntary movement seems to be throughout the day. We will have to do trial of medications that target akathisia such as propanolol and ativan versus medications such as pramipexol for RLS (note that in RLS there is an initial relief with dopamine agonist but can make it worse over time). In addition, will try iron deficiency as it is an underlying cause and exacerbating factor in RLS. PLAN 11/14 continue tx. will monitor before making substantial changes every day. 11/15 continue tx. pt somatically preoccupied. 11/16: Continue current management and treatment plan. 11/17: continue current management and treatment plan. 11/18 start buspar 10mg po TID for SHEILA. continue all other meds. 11/19 increase buspar 20mg po TID 11/20 appears calmer, less somatically preoccupied. continue current medications. 11/21 sodium stable. continues to present as less dysphoric, calmer. reports of dizziness (VS not hotn nor orthostatic), ?vertigo, will try low dose of meclizine otherwise will consult hospitalist for further management. 8.2- pt more focused on gi issues- and anxiety/forgetfulness- continue to monitor somatic complaints- dc qid poc 11/25 will lowered ropinirole as it may increasing anxiety, noted that buspar was lowered, do not think this medication was causing fogginess as pt appeared much calmer since we added buspar. She was started on low dose clonazepam. 11/26 continue tx. received one time dose xanax, but reported feeling overly sedated (although did not appear sedated) 11/27 somatically p8/9: Continue current regimen and plansreoccupied, no change in medications. 11/29 continue tx. 11/30: Continue current regimen and plans 12/01: Continue current plans and regimen 12/02 increase buspar 20mg po TID. 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 start wellbutrin XL 150 daily tomorrow for depression. also c/o anxiety-provoking and nocturnally loud peer. schedule klonopin 0.25 QHS for insomnia. otherwise continue current mgmt. awaiting placement. 12/04: slept well last night, started wellbutrin this morning without incident. continue current mgmt. will be discharging to [facility]. 12/05: slept well. c/o anxiety at 3-330 in the afternoon. pt to ask for klonopin PRN at 2-230. trend anxiety, T/C DC of wellbutrin if anxiety seems reliably increased since starting it. dispo next week likely. 12/06: anxious. schedule klonopin 0.25 mg Qdaily at 1430 per pt request. otherwise continue current mgmt. 12/07: anxious and depressed. c/o insomnia. will give wellbutrin a few more days to see if insomnia subsides and mood improves. per staf, stable and uneventful presentation. 12/08: depressed. agreeable to increase wellbutrin to 300 mg as of tomorrow. otherwise continue current mgmt. sleeping well. 12/09: started wellbutrin 300 today. c/o URI Sx, start guaifenesin. otherwise continue current mgmt. 12/10: coughin much eves/NOC per staff. pt c/o not happy, cough, and poor sleep. continue mucinex and mental health Tx plan otherwise. 12/11/24: Patient appeared to slept for 8 hours, was medication compliant but refused the MiraLax. Denies side effects. She is observed watching TV in common area. Reported that she feel anxious and depressed. She is worry about when she is leaving as she is going to stay by herself. I am depressed . Self reports that she did not sleep well last night as roommate waking her up at night telling her that she saw dogs. She reports normal stomach pain. She would hope to see the GI doctor after discharge. She reported that she will be discharged on 12/17 but not sure the name of the facility or where it is located. Denies safety concerns, denies hallucinations. No coughing observed this morning. 12/12: c/o unremitting depression, saying she does not want to live like this. interested in ECT, educated re the procedure. obtain risk strat and EKG, discuss in rounds tomorrow morning. otherwise continue current mgmt. 12/13: continues to push for ECT. seen by hospitalist, no relative contraindications to the procedure. case d/w patient's daughter chantelle as well, who avers that pt has been in this state for a long time, it's only getting worse, and medications have not been helpful. johanna supports this trial on the wishes of her mother and MD's recommendation. ECT ordered, will get pt on the schedule as soon as possible. 12/14: Cough-productive, O2 sats are lower , CXR positive. Seen by hospitalist. Antibiotics initiated, R/O pneumonia 12/15: Pt unable to tolerate doxycycline. Hospitalist will change to Ceftin. 12/16: ECT held today due to januvia and respiratory virus. mood slightly improved. plan for weds ECT. 12/17: COVID and flu NEG. c/o nausea, exacerbation of chronic condition, h/o gastroparesis. holding januvia. start reglan for gastroparesis. continue current mgmt otherwise. NPO past MN for ECT tomorrow. 12/18: awaiting med clearance for ECT. planning for ECT monday. otherwise continue current mgmt. glucose noted to be elevated since holding januvia the past several days. 12/19 continue current medications. pt hopefull will have ECT tomorrow. NPO from midnight. 12/20 continue tx. Had ECT #1 no complications noted or reported. 12/21:Continue ECT. 12/22: Increase Klonopin PRN to BID. Otherwise continue current management and treatment plan. 12/23: continue current management and treatment plan. 12/24 continue tx. ECT tomorrow, NPO after midnight. 12/25 continue tx. 12/26: ECT #3 completed today. pleasant, feeling improved. Sz duration longer than prior but remains suboptimal. will DC gabapentin and decrease PRN klonopin to 0.125 mg per dose. next ECT monday. continue current mgmt otherwise. 9/6 Patient says she is all right and no complaints other than restless leg/akathisia which she says is bothering her. Discussed ECT and patient says she wants to continue getting ECT which she thinks is helpful and is why she wants to remain inpatient. Mink Slicer agreed to: -order extra ropinrile 1mg daily prn 12/29Patient says she is so-so and Continues to have akathisia; patient benefitted somewhat from propranolol, which is preferable to increasing ropinirole (BP these mildly hypertensive; regular heart rate). Review of chart and patient was started on metoclopramide for diabetic gastroparesis. Discussed with patient who agrees to lowering metoclopramide; will increase propranolol and DC p.r.n. ropinirole -lower metoclopramide to 3 mg t.i.d. a.c.; (no N/V or constipation) -increase to propranolol 10 mg t.i.d. p.r.n. for restless leg -DC extra p.r.n. ropinirole 12/30: c/o restless legs. notes reviewed on the subject, plan noted. had ECT today, believes she is only having one more. anxiety Sx appear worse than prior, difficult to assess mood under the circumstances. continue current mgmt for now. 12/31: reglan DCed but still c/o RLS. requip Rx noted. ECT tomorrow. i don't feel down. NPO past MN, otherwise continue current mgmt. 01/01: stable, depression/anxiety lessened. awaiting ECT today. c/o RLS, plan to restart gabapentin after ECT course is finished. continue current mgmt otherwise. Reason for continued inpatient stay Substantial Risk for: inability to function and rapid decompensation Time Spent With Patient Time: Total time managing care of this patient today __25__ minutes.
--- NOTE | 2025-01-01 13:12 | P.CONAN_ITS ---
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 (Acute) Hyponatremia (Acute) Fall (Acute) Constipation (Acute) Forehead laceration (Acute) Diabetes (Acute) RLS (restless legs syndrome) (Acute) MDD (major depressive disorder), recurrent episode, moderate (Acute) Gastroparesis (Acute) Anxiety (Acute) Past Medical History Medical History Tension headache Peripheral neuropathy Akathisia Cerebral microvascular disease RLS (restless legs syndrome) Migraines Diabetes Hypertension Anxiety Functional capacity: independent ambulation Family History Family history of problems with anesthesia: No Surgical History History of Problems with Anesthesia: No Social History Social History Household Members: None Housing: House Do you presently have visiting nurse or other home services: Yes Patient Tobacco Use Status: Never used Tobacco Currently Displaying Signs/Symptoms of Drug Intoxication Withdrawal: No Have you been hit, kicked, punched, or otherwise hurt by someone within the past year? If so, by whom?: No Do you feel safe in your current relationship?: No Current Relationship Is there a partner from a previous relationship who is making you feel unsafe now?: No Are you made to feel afraid or neglected: No Spiritual Healthcare Practices: meditation and breathing Advance Directives: No Advance Directives Information Provided: No Do you have thoughts of harming others: None Do you have a plan to hurt others: No Plan Recently lost weight without trying: No Eating poorly because of decreased appetite: No Nutrition Risks: No Nutritional Risk Patient : No : No Poor oral hygiene: No service: No Sexual orientation: Straight/Heterosexual Meds Allergies Allergy/AdvReac Type Severity Reaction Status Date / Time ampicillin Allergy Rash Verified 10/20/24 19:28 morphine Allergy Rash Verified 10/20/24 19:28 Penicillins Allergy Rash Verified 10/20/24 19:28 pork derived (porcine) Allergy Vomiting Verified 11/10/24 17:49 Active Medications: Current Medications Acetaminophen (Acetaminophen 325 Mg Tablet) 650 mg PO Q6H PRN PRN Reason: Headache/Pain, Scale 1-10 Last Admin: 12/31/24 20:40 Dose: 650 mg Al Hydroxide/Mg Hydroxide (Magnesium Hydrox/Alum Hydrox 30 Ml Oral.Susp) 30 ml PO Q6H PRN PRN Reason: Heartburn/Nausea Last Admin: 12/31/24 18:46 Dose: 30 ml Albuterol Sulfate (Albuterol Sulfate (0.083%) 2.5 Mg/3 Ml Vial.Neb) 2.5 mg INHALE ONCE PRN PRN Reason: Shortness of Breath/Wheezing Last Admin: 12/16/24 07:11 Dose: 2.5 mg Albuterol Sulfate (Albuterol Sulfate 90 Mcg 8 Gm Inhaler) 4 puff INHALE Q4H PRN PRN Reason: Shortness Of Breath Or Wheezin Amlodipine Besylate (Amlodipine Besylate 2.5 Mg Tablet) 2.5 mg PO DAILY [facility]; Protocol Last Admin: 01/01/25 09:09 Dose: 2.5 mg Atorvastatin Calcium (Atorvastatin Calcium 20 Mg Tablet) 20 mg PO DAILY [facility] Last Admin: 01/01/25 09:10 Dose: 20 mg Bisacodyl (Bisacodyl 10 Mg Supp.Rect) [address] BEDTIME PRN PRN Reason: Constipation Last Admin: 11/04/24 20:37 Dose: 10 mg Bupropion HCl (Bupropion Hcl Xl 300 Mg Tab.Er.24h) 300 mg PO DAILY [facility] Last Admin: 01/01/25 09:09 Dose: 300 mg Buspirone HCl (Buspirone Hcl 10 Mg Tablet) 20 mg PO TID [facility] Last Admin: 01/01/25 09:10 Dose: 20 mg Calcium Carbonate (Calcium Carbonate 750 Mg Tab.Chew) 750 mg PO Q4H PRN PRN Reason: Heartburn Last Admin: 11/30/24 21:34 Dose: 750 mg Clonazepam (Clonazepam Odt 0.125 Mg Tab.Rapdis) 0.125 mg PO BID PRN PRN Reason: severe anxiety Last Admin: 01/01/25 10:00 Dose: 0.125 mg Dicyclomine HCl (Dicyclomine Hcl 10 Mg Capsule) 10 mg PO Q4H PRN PRN Reason: abdominal cramping Last Admin: 12/17/24 13:55 Dose: 10 mg Docusate Sodium (Docusate Sodium 100 Mg Capsule) 100 mg PO BID [facility] Last Admin: 01/01/25 09:29 Dose: 100 mg Duloxetine HCl (Duloxetine Hcl 60 Mg Capsule.Dr) 60 mg PO DAILY [facility] Last Admin: 01/01/25 09:09 Dose: 60 mg Fluticasone/Vilanterol (Fluticasone/Vilanterol 100/25 Blst.W.Dev) 1 puff INHALE RDAILY [facility] Last Admin: 01/01/25 09:10 Dose: 1 puff Glipizide (Glipizide Xl 2.5 Mg Tab.Er.24) 2.5 mg PO DAILY [facility] Last Admin: 01/01/25 09:09 Dose: 2.5 mg Guaifenesin (Guaifenesin La 600 Mg Tab.Er.12h) 1,200 mg PO BID PRN PRN Reason: Cough Last Admin: 12/16/24 14:35 Dose: 1,200 mg Lactated Ringer's (Lr) 1,000 mls @ 50 mls/hr IVCONT .Q20H [facility] Insulin Human Lispro (Insulin Lispro 100 Unit/Ml 3 Ml Vial) 0 unit SUBCUT TIDAC [facility]; Protocol Last Admin: 01/01/25 12:05 Dose: Not Given Lisinopril (Lisinopril 2.5 Mg Tablet) 2.5 mg PO DAILY [facility]; Protocol Last Admin: 01/01/25 09:08 Dose: 2.5 mg Magnesium Hydroxide (Milk Of Magnesia 30 Ml Oral.Susp) 30 ml PO DAILY PRN PRN Reason: Constipation Last Admin: 11/04/24 16:49 Dose: 30 ml Mirtazapine (Mirtazapine 30 Mg Tablet) 30 mg PO BEDTIME [facility] Last Admin: 12/31/24 20:41 Dose: 30 mg Omeprazole (Omeprazole 20 Mg Capsule.) 20 mg PO BID@0630,1630 [facility] Last Admin: 01/01/25 10:40 Dose: Not Given Ondansetron HCl (Ondansetron Odt 4 Mg Tab.Rapdis) 4 mg TRANSLINGU Q4H PRN PRN Reason: Nausea and Vomiting Last Admin: 12/31/24 11:35 Dose: 4 mg Polyethylene Glycol (Polyethylene Glycol 3350 17 Gm Powd.Pack) 17 gm PO BID [facility] Last Admin: 01/01/25 10:20 Dose: Not Given Pramipexole Dihydrochloride (Pramipexole Di-Hcl 0.125 Mg Tablet) 0.125 mg PO DAILY [facility] Last Admin: 01/01/25 09:09 Dose: 0.125 mg Pyridoxine HCl (Pyridoxine Hcl (Vitamin B6) 50 Mg Tablet) 50 mg PO DAILY [facility] Last Admin: 01/01/25 09:09 Dose: 50 mg Ropinirole HCl (Ropinirole Hcl 2 Mg Tablet) 2 mg PO DAILY@1700 [facility] Last Admin: 12/31/24 16:16 Dose: 2 mg Simethicone (Simethicone 80 Mg Tab.Chew) 80 mg PO QIDWMHS [facility] Last Admin: 01/01/25 09:10 Dose: 80 mg Trazodone HCl (Trazodone Hcl 50 Mg Tablet) 50 mg PO BEDTIME MRX1 PRN PRN Reason: Insomnia Last Admin: 12/31/24 20:40 Dose: 50 mg Home Medications ?Medication ?Instructions ?Recorded ?Confirmed ?Last Taken ?Type atorvastatin 20 mg tablet 20 mg PO DAILY 04/01/2309/2403/31/23 21:00 History ondansetron HCl 4 mg tablet 4 mg PO Q8H PRN nausea 01/1410/21/24 03/31/23 21:00 History pantoprazole 40 mg tablet,delayed 40 mg PO BID@0630,16 30 04/01/23 10/21/24 03/31/23 21:00 History release sitagliptin phosphate 100 mg 100 mg PO DAILY 04/01/23 10/21/24 03/31/23 21:00 History tablet (Januvia) albuterol sulfate 90 mcg/actuation 2 puff inhalation Q 4-6H PRN 10/21/24 10/21/24 Unknown History aerosol inhaler Shortness Of Breath Or Wheez ing amlodipine 2.5 mg tablet 2.5 mg PO DAILY 10/21/24 Unknown History duloxetine 20 mg capsule,delayed 40 mg PO DAILY 10/21/24 Unknown History release fluticasone furoate 100 1 ea inhalation DAILY 10/21/24 Unknown History mcg-vilanterol 25 mcg/dose inhalation powder (Breo Ellipta) gabapentin 100 mg capsule 100 mg PO TID 10/21/2410/21 Unknown History gabapentin 600 mg tablet 600 mg PO BEDTIME 10/21/24 0 10/21/24 Unknown History glipizide 2.5 mg tablet, extended 2.5 mg PO DAILY 09/2410/21/24 Unknown History release 24 hr lamotrigine 100 mg tablet 100 mg PO DAILY 10/21/24 Unknown History lisinopril 20 mg tablet 20 mg PO DAILY 10/21/2409/24 Unknown History lorazepam 0.5 mg tablet 0.25 mg PO BID 10/21/2409/24 Unknown History mirtazapine 45 mg tablet 45 mg PO BEDTIME 10/21/24 Unknown History olanzapine 2.5 mg tablet 2.5 mg PO BEDTIME 10/21/24 0 10/21/24 Unknown History pramipexole 0.25 mg tablet 0.25 mg PO BID 10/21/24 Unknown History propranolol 20 mg tablet 20 mg PO DAILY 10/21/2409/24 Unknown History Exam Height,Weight and Vital Signs: Height 4 ft 10 in Weight 50.519 kg Last Vital Signs Temp 98.1 F 01/01/25 12:52 Pulse 85 01/01/25 12:52 Resp 16 01/01/25 12:52 BP 144/72 H 01/01/25 12:52 Pulse Ox 96 01/01/25 12:52 O2 Del Method Room Air 01/01/25 12:52 O2 Flow Rate 3 12/25/24 09:09 Pertinent Lab Results Pertinent Lab Results: Laboratory Tests 10/20/24 10/20/24 10/22/24 19:59 21:45 07:23 WBC 7.6 RBC 3.65 L Hgb 10.8 L Hct 31.3 L MCV 85.8 MCH 29.6 MCHC 34.5 RDW 13.6 Plt Count 213 MPV 8.7 L Immature Gran % (Auto) 0.3 Neut % (Auto) 58.4 Lymph % (Auto) 29.8 [place] % (Auto) 9.9 Eos % (Auto) 1.1 Baso % (Auto) 0.5 Lymph # (Auto) 2.3 [place] # (Auto) 0.8 Eos # (Auto) 0.1 Baso # (Auto) 0.0 Abs Immat Gran (auto) 0.02 Absolute Neuts (auto) 4.4 Absolute Nucleated RBC 0.000 Nucleated RBC % (auto) 0.0 Smear Tech's Comments Hold Purple Top VBG pH VBG pCO2 VBG pO2 VBG HCO3 VBG O2 Saturation VBG Base Excess Sodium 140 142 Potassium 4.2 4.6 Chloride 108 108 Carbon Dioxide 23 23 Anion Gap 13 16 BUN 33 H 22 H Creatinine 1.15 1.09 Estim Creat Clear Calc 26.9 30.7 Estimated GFR 46 49 POC Glucose Random Glucose 96 204 H Estimat Average Glucose 160 Hemoglobin A1c % 7.2 H Osmolality Lactic Acid Calcium 9.3 9.6 Magnesium Iron TIBC % Saturation Unsat Iron Binding Total Bilirubin 0.5 AST 21 ALT 25 Alkaline Phosphatase 67 Total Protein 7.4 Albumin 4.9 Triglycerides 102 Cholesterol 148 LDL Cholesterol, Calc 68 HDL Cholesterol 60 Lipase TSH 2.14 Free T4 1.15 Urine Color Yellow Urine Appearance Clear Urine pH 7.0 Ur Specific [place] 1.010 Urine Protein Negative Urine Glucose (UA) Negative Urine Ketones Negative Urine Blood Negative Urine Nitrite Negative Ur Leukocyte Esterase Large (3+) H Urine RBC 0-2 Urine WBC 21-50 H Ur Squamous Epith Cells 0-2 Urine Bacteria Trace Hyaline Casts 0-2 Urine Osmolality Ur Random Sodium Urine Opiates Screen POSITIVE H Ur Buprenorphine Scrn Not Detected Ur Oxycodone Screen Not Detected Urine Methadone Screen Not Detected Urine Fentanyl Screen Not Detected Ur Barbiturates Screen Not Detected Carbamazepine Ur Phencyclidine Scrn Not Detected Ur Amphetamines Screen Not Detected U Benzodiazepines Scrn Not Detected Urine Cocaine Screen Not Detected U Marijuana (THC) Screen Not Detected COVID-19 ([facility]) COVID-19 Clin Com Influenza Type A (AMANDA) Influenza Type B (AMANDA) Influenza A & B Note TB Test (T-Spot) Com TB Test Nil Control TB Test Panel A TB Test Panel B TB Test Positive [facility] 10/23/24 10/23/24 10/23/24 15:19 15:20 16:31 WBC 6.4 RBC 4.03 L Hgb 11.8 L Hct 34.7 L MCV 86.1 MCH 29.3 MCHC 34.0 RDW 13.6 Plt Count 221 MPV 9.8 Immature Gran % (Auto) 0.3 Neut % (Auto) 64.6 Lymph % (Auto) 23.0 [place] % (Auto) 10.4 Eos % (Auto) 1.2 Baso % (Auto) 0.5 Lymph # (Auto) 1.5 [place] # (Auto) 0.7 Eos # (Auto) 0.1 Baso # (Auto) 0.0 Abs Immat Gran (auto) 0.02 Absolute Neuts (auto) 4.2 Absolute Nucleated RBC 0.000 Nucleated RBC % (auto) 0.0 Smear Tech's Comments VERIFIED Hold Purple Top VBG pH VBG pCO2 VBG pO2 VBG HCO3 VBG O2 Saturation VBG Base Excess Sodium 137 Potassium 4.5 Chloride 104 Carbon Dioxide 24 Anion Gap 14 BUN 26 H Creatinine 1.02 Estim Creat Clear Calc 32.8 Estimated GFR 53 POC Glucose 132 H Random Glucose 158 H Estimat Average Glucose Hemoglobin A1c % Osmolality Lactic Acid Calcium 9.3 Magnesium Iron TIBC % Saturation Unsat Iron Binding Total Bilirubin AST ALT Alkaline Phosphatase Total Protein Albumin Triglycerides Cholesterol LDL Cholesterol, Calc HDL Cholesterol Lipase TSH Free T4 Urine Color Urine Appearance Urine pH Ur Specific [place] Urine Protein Urine Glucose (UA) Urine Ketones Urine Blood Urine Nitrite Ur Leukocyte Esterase Urine RBC Urine WBC Ur Squamous Epith Cells Urine Bacteria Hyaline Casts Urine Osmolality Ur Random Sodium Urine Opiates Screen Ur Buprenorphine Scrn Ur Oxycodone Screen Urine Methadone Screen Urine Fentanyl Screen Ur Barbiturates Screen Carbamazepine Ur Phencyclidine Scrn Ur Amphetamines Screen U Benzodiazepines Scrn Urine Cocaine Screen U Marijuana (THC) Screen COVID-19 ([facility]) COVID-19 Clin Com Influenza Type A (AMANDA) Influenza Type B (AMANDA) Influenza A & B Note TB Test (T-Spot) Com TB Test Nil Control TB Test Panel A TB Test Panel B TB Test Positive Cntrl 10/24/24 10/24/24 10/24/24 06:51 11:08 12:19 WBC RBC Hgb Hct MCV MCH MCHC RDW Plt Count MPV Immature Gran % (Auto) Neut % (Auto) Lymph % (Auto) [place] % (Auto) Eos % (Auto) Baso % (Auto) Lymph # (Auto) [place] # (Auto) Eos # (Auto) Baso # (Auto) Abs Immat Gran (auto) Absolute Neuts (auto) Absolute Nucleated RBC Nucleated RBC % (auto) Smear Tech's Comments Hold Purple Top VBG pH VBG pCO2 VBG pO2 VBG HCO3 VBG O2 Saturation VBG Base Excess Sodium Potassium Chloride Carbon Dioxide Anion Gap BUN Creatinine Estim Creat Clear Calc Estimated GFR POC Glucose 204 H 95 Random Glucose Estimat Average Glucose Hemoglobin A1c % Osmolality Lactic Acid Calcium Magnesium Iron 65 TIBC 216 L % Saturation 30 Unsat Iron Binding 151 Total Bilirubin AST ALT Alkaline Phosphatase Total Protein Albumin Triglycerides Cholesterol LDL Cholesterol, Calc HDL Cholesterol Lipase TSH Free T4 Urine Color Urine Appearance Urine pH Ur Specific [place] Urine Protein Urine Glucose (UA) Urine Ketones Urine Blood Urine Nitrite Ur Leukocyte Esterase Urine RBC Urine WBC Ur Squamous Epith Cells Urine Bacteria Hyaline Casts Urine Osmolality Ur Random Sodium Urine Opiates Screen Ur Buprenorphine Scrn Ur Oxycodone Screen Urine Methadone Screen Urine Fentanyl Screen Ur Barbiturates Screen Carbamazepine Ur Phencyclidine Scrn Ur Amphetamines Screen U Benzodiazepines Scrn Urine Cocaine Screen U Marijuana (THC) Screen COVID-19 ([facility]) COVID-19 Clin Com Influenza Type A (AMANDA) Influenza Type B (AMANDA) Influenza A & B Note TB Test (T-Spot) Com TB Test Nil Control TB Test Panel A TB Test Panel B TB Test Positive Cntrl 10/24/24 10/25/24 10/25/24 16:06 05:55 11:15 WBC RBC Hgb Hct MCV MCH MCHC RDW Plt Count MPV Immature Gran % (Auto) Neut % (Auto) Lymph % (Auto) [place] % (Auto) Eos % (Auto) Baso % (Auto) Lymph # (Auto) [place] # (Auto) Eos # (Auto) Baso # (Auto) Abs Immat Gran (auto) Absolute Neuts (auto) Absolute Nucleated RBC Nucleated RBC % (auto) Smear Tech's Comments Hold Purple Top VBG pH VBG pCO2 VBG pO2 VBG HCO3 VBG O2 Saturation VBG Base Excess Sodium Potassium Chloride Carbon Dioxide Anion Gap BUN Creatinine Estim Creat Clear Calc Estimated GFR POC Glucose 142 H 190 H 177 H Random Glucose Estimat Average Glucose Hemoglobin A1c % Osmolality Lactic Acid Calcium Magnesium Iron TIBC % Saturation Unsat Iron Binding Total Bilirubin AST ALT Alkaline Phosphatase Total Protein Albumin Triglycerides Cholesterol LDL Cholesterol, Calc HDL Cholesterol Lipase TSH Free T4 Urine Color Urine Appearance Urine pH Ur Specific [place] Urine Protein Urine Glucose (UA) Urine Ketones Urine Blood Urine Nitrite Ur Leukocyte Esterase Urine RBC Urine WBC Ur Squamous Epith Cells Urine Bacteria Hyaline Casts Urine Osmolality Ur Random Sodium Urine Opiates Screen Ur Buprenorphine Scrn Ur Oxycodone Screen Urine Methadone Screen Urine Fentanyl Screen Ur Barbiturates Screen Carbamazepine Ur Phencyclidine Scrn Ur Amphetamines Screen U Benzodiazepines Scrn Urine Cocaine Screen U Marijuana (THC) Screen COVID-19 ([facility]) COVID-19 Clin Com Influenza Type A (AMANDA) Influenza Type B (AMANDA) Influenza A & B Note TB Test (T-Spot) Com TB Test Nil Control TB Test Panel A TB Test Panel B TB Test Positive [facility] 10/25/24 10/26/24 10/26/24 16:33 07:05 10:57 WBC RBC Hgb Hct MCV MCH MCHC RDW Plt Count MPV Immature Gran % (Auto) Neut % (Auto) Lymph % (Auto) [place] % (Auto) Eos % (Auto) Baso % (Auto) Lymph # (Auto) [place] # (Auto) Eos # (Auto) Baso # (Auto) Abs Immat Gran (auto) Absolute Neuts (auto) Absolute Nucleated RBC Nucleated RBC % (auto) Smear Tech's Comments Hold Purple Top VBG pH VBG pCO2 VBG pO2 VBG HCO3 VBG O2 Saturation VBG Base Excess Sodium Potassium Chloride Carbon Dioxide Anion Gap BUN Creatinine Estim Creat Clear Calc Estimated GFR POC Glucose 170 H 185 H 189 H Random Glucose Estimat Average Glucose Hemoglobin A1c % Osmolality Lactic Acid Calcium Magnesium Iron TIBC % Saturation Unsat Iron Binding Total Bilirubin AST ALT Alkaline Phosphatase Total Protein Albumin Triglycerides Cholesterol LDL Cholesterol, Calc HDL Cholesterol Lipase TSH Free T4 Urine Color Urine Appearance Urine pH Ur Specific [place] Urine Protein Urine Glucose (UA) Urine Ketones Urine Blood Urine Nitrite Ur Leukocyte Esterase Urine RBC Urine WBC Ur Squamous Epith Cells Urine Bacteria Hyaline Casts Urine Osmolality Ur Random Sodium Urine Opiates Screen Ur Buprenorphine Scrn Ur Oxycodone Screen Urine Methadone Screen Urine Fentanyl Screen Ur Barbiturates Screen Carbamazepine Ur Phencyclidine Scrn Ur Amphetamines Screen U Benzodiazepines Scrn Urine Cocaine Screen U Marijuana (THC) Screen COVID-19 ([facility]) COVID-19 Clin Com Influenza Type A (AMANDA) Influenza Type B (AMANDA) Influenza A & B Note TB Test (T-Spot) Com TB Test Nil Control TB Test Panel A TB Test Panel B TB Test Positive [facility] 10/26/24 10/27/24 10/27/24 16:19 06:45 11:24 WBC RBC Hgb Hct MCV MCH MCHC RDW Plt Count MPV Immature Gran % (Auto) Neut % (Auto) Lymph % (Auto) [place] % (Auto) Eos % (Auto) Baso % (Auto) Lymph # (Auto) [place] # (Auto) Eos # (Auto) Baso # (Auto) Abs Immat Gran (auto) Absolute Neuts (auto) Absolute Nucleated RBC Nucleated RBC % (auto) Smear Tech's Comments Hold Purple Top VBG pH VBG pCO2 VBG pO2 VBG HCO3 VBG O2 Saturation VBG Base Excess Sodium Potassium Chloride Carbon Dioxide Anion Gap BUN Creatinine Estim Creat Clear Calc Estimated GFR POC Glucose 170 H 215 H 117 H Random Glucose Estimat Average Glucose Hemoglobin A1c % Osmolality Lactic Acid Calcium Magnesium Iron TIBC % Saturation Unsat Iron Binding Total Bilirubin AST ALT Alkaline Phosphatase Total Protein Albumin Triglycerides Cholesterol LDL Cholesterol, Calc HDL Cholesterol Lipase TSH Free T4 Urine Color Urine Appearance Urine pH Ur Specific [place] Urine Protein Urine Glucose (UA) Urine Ketones Urine Blood Urine Nitrite Ur Leukocyte Esterase Urine RBC Urine WBC Ur Squamous Epith Cells Urine Bacteria Hyaline Casts Urine Osmolality Ur Random Sodium Urine Opiates Screen Ur Buprenorphine Scrn Ur Oxycodone Screen Urine Methadone Screen Urine Fentanyl Screen Ur Barbiturates Screen Carbamazepine Ur Phencyclidine Scrn Ur Amphetamines Screen U Benzodiazepines Scrn Urine Cocaine Screen U Marijuana (THC) Screen COVID-19 ([facility]) COVID-19 Clin Com Influenza Type A (AMANDA) Influenza Type B (AMANDA) Influenza A & B Note TB Test (T-Spot) Com TB Test Nil Control TB Test Panel A TB Test Panel B TB Test Positive Cntrl 10/27/24 10/28/24 10/28/24 16:14 06:32 10:50 WBC RBC Hgb Hct MCV MCH MCHC RDW Plt Count MPV Immature Gran % (Auto) Neut % (Auto) Lymph % (Auto) [place] % (Auto) Eos % (Auto) Baso % (Auto) Lymph # (Auto) [place] # (Auto) Eos # (Auto) Baso # (Auto) Abs Immat Gran (auto) Absolute Neuts (auto) Absolute Nucleated RBC Nucleated RBC % (auto) Smear Tech's Comments Hold Purple Top VBG pH VBG pCO2 VBG pO2 VBG HCO3 VBG O2 Saturation VBG Base Excess Sodium Potassium Chloride Carbon Dioxide Anion Gap BUN Creatinine Estim Creat Clear Calc Estimated GFR POC Glucose 156 H 195 H 288 H Random Glucose Estimat Average Glucose Hemoglobin A1c % Osmolality Lactic Acid Calcium Magnesium Iron TIBC % Saturation Unsat Iron Binding Total Bilirubin AST ALT Alkaline Phosphatase Total Protein Albumin Triglycerides Cholesterol LDL Cholesterol, Calc HDL Cholesterol Lipase TSH Free T4 Urine Color Urine Appearance Urine pH Ur Specific [place] Urine Protein Urine Glucose (UA) Urine Ketones Urine Blood Urine Nitrite Ur Leukocyte Esterase Urine RBC Urine WBC Ur Squamous Epith Cells Urine Bacteria Hyaline Casts Urine Osmolality Ur Random Sodium Urine Opiates Screen Ur Buprenorphine Scrn Ur Oxycodone Screen Urine Methadone Screen Urine Fentanyl Screen Ur Barbiturates Screen Carbamazepine Ur Phencyclidine Scrn Ur Amphetamines Screen U Benzodiazepines Scrn Urine Cocaine Screen U Marijuana (THC) Screen COVID-19 ([facility]) COVID-19 Clin Com Influenza Type A (AMANDA) Influenza Type B (AMANDA) Influenza A & B Note TB Test (T-Spot) Com TB Test Nil Control TB Test Panel A TB Test Panel B TB Test Positive [facility] 10/28/24 10/28/24 10/29/24 15:54 20:28 06:47 WBC RBC Hgb Hct MCV MCH MCHC RDW Plt Count MPV Immature Gran % (Auto) Neut % (Auto) Lymph % (Auto) [place] % (Auto) Eos % (Auto) Baso % (Auto) Lymph # (Auto) [place] # (Auto) Eos # (Auto) Baso # (Auto) Abs Immat Gran (auto) Absolute Neuts (auto) Absolute Nucleated RBC Nucleated RBC % (auto) Smear Tech's Comments Hold Purple Top VBG pH VBG pCO2 VBG pO2 VBG HCO3 VBG O2 Saturation VBG Base Excess Sodium Potassium Chloride Carbon Dioxide Anion Gap BUN Creatinine Estim Creat Clear Calc Estimated GFR POC Glucose 132 H 210 H 188 H Random Glucose Estimat Average Glucose Hemoglobin A1c % Osmolality Lactic Acid Calcium Magnesium Iron TIBC % Saturation Unsat Iron Binding Total Bilirubin AST ALT Alkaline Phosphatase Total Protein Albumin Triglycerides Cholesterol LDL Cholesterol, Calc HDL Cholesterol Lipase TSH Free T4 Urine Color Urine Appearance Urine pH Ur Specific [place] Urine Protein Urine Glucose (UA) Urine Ketones Urine Blood Urine Nitrite Ur Leukocyte Esterase Urine RBC Urine WBC Ur Squamous Epith Cells Urine Bacteria Hyaline Casts Urine Osmolality Ur Random Sodium Urine Opiates Screen Ur Buprenorphine Scrn Ur Oxycodone Screen Urine Methadone Screen Urine Fentanyl Screen Ur Barbiturates Screen Carbamazepine Ur Phencyclidine Scrn Ur Amphetamines Screen U Benzodiazepines Scrn Urine Cocaine Screen U Marijuana (THC) Screen COVID-19 ([facility]) COVID-19 Clin Com Influenza Type A (AMANDA) Influenza Type B (AMANDA) Influenza A & B Note TB Test (T-Spot) Com TB Test Nil Control TB Test Panel A TB Test Panel B TB Test Positive [facility] 10/29/24 10/29/2425 11:16 15:42 16:24 WBC 11.0 H RBC 3.49 L Hgb 10.4 L Hct 29.9 L MCV 85.7 MCH 29.8 MCHC 34.8 RDW 13.7 Plt Count 271 MPV 8.8 L Immature Gran % (Auto) 0.5 H Neut % (Auto) 71.9 Lymph % (Auto) 14.5 L [place] % (Auto) 11.9 H Eos % (Auto) 0.7 Baso % (Auto) 0.5 Lymph # (Auto) 1.6 [place] # (Auto) 1.3 H Eos # (Auto) 0.1 Baso # (Auto) 0.1 Abs Immat Gran (auto) 0.05 H Absolute Neuts (auto) 7.9 Absolute Nucleated RBC 0.000 Nucleated RBC % (auto) 0.0 Smear Tech's Comments Hold Purple Top VBG pH VBG pCO2 VBG pO2 VBG HCO3 VBG O2 Saturation VBG Base Excess Sodium 133 L Potassium 4.7 Chloride 102 Carbon Dioxide 24 Anion Gap 12 BUN 39 H Creatinine 1.24 Estim Creat Clear Calc 27.3 Estimated GFR 42 POC Glucose 265 H 156 H Random Glucose 180 H Estimat Average Glucose Hemoglobin A1c % Osmolality Lactic Acid Calcium 8.9 Magnesium Iron TIBC % Saturation Unsat Iron Binding Total Bilirubin 0.4 AST 15 ALT 21 Alkaline Phosphatase 67 Total Protein 6.4 L Albumin 4.1 Triglycerides Cholesterol LDL Cholesterol, Calc HDL Cholesterol Lipase TSH Free T4 Urine Color Urine Appearance Urine pH Ur Specific [place] Urine Protein Urine Glucose (UA) Urine Ketones Urine Blood Urine Nitrite Ur Leukocyte Esterase Urine RBC Urine WBC Ur Squamous Epith Cells Urine Bacteria Hyaline Casts Urine Osmolality Ur Random Sodium Urine Opiates Screen Ur Buprenorphine Scrn Ur Oxycodone Screen Urine Methadone Screen Urine Fentanyl Screen Ur Barbiturates Screen Carbamazepine Ur Phencyclidine Scrn Ur Amphetamines Screen U Benzodiazepines Scrn Urine Cocaine Screen U Marijuana (THC) Screen COVID-19 ([facility]) COVID-19 Clin Com Influenza Type A (AMANDA) Influenza Type B (AMANDA) Influenza A & B Note TB Test (T-Spot) Com TB Test Nil Control TB Test Panel A TB Test Panel B TB Test Positive Cntrl 10/30/24 10/30/24 10/30/24 06:46 11:13 16:09 WBC RBC Hgb Hct MCV MCH MCHC RDW Plt Count MPV Immature Gran % (Auto) Neut % (Auto) Lymph % (Auto) [place] % (Auto) Eos % (Auto) Baso % (Auto) Lymph # (Auto) [place] # (Auto) Eos # (Auto) Baso # (Auto) Abs Immat Gran (auto) Absolute Neuts (auto) Absolute Nucleated RBC Nucleated RBC % (auto) Smear Tech's Comments Hold Purple Top VBG pH VBG pCO2 VBG pO2 VBG HCO3 VBG O2 Saturation VBG Base Excess Sodium Potassium Chloride Carbon Dioxide Anion Gap BUN Creatinine Estim Creat Clear Calc Estimated GFR POC Glucose 195 H 194 H 143 H Random Glucose Estimat Average Glucose Hemoglobin A1c % Osmolality Lactic Acid Calcium Magnesium Iron TIBC % Saturation Unsat Iron Binding Total Bilirubin AST ALT Alkaline Phosphatase Total Protein Albumin Triglycerides Cholesterol LDL Cholesterol, Calc HDL Cholesterol Lipase TSH Free T4 Urine Color Urine Appearance Urine pH Ur Specific [place] Urine Protein Urine Glucose (UA) Urine Ketones Urine Blood Urine Nitrite Ur Leukocyte Esterase Urine RBC Urine WBC Ur Squamous Epith Cells Urine Bacteria Hyaline Casts Urine Osmolality Ur Random Sodium Urine Opiates Screen Ur Buprenorphine Scrn Ur Oxycodone Screen Urine Methadone Screen Urine Fentanyl Screen Ur Barbiturates Screen Carbamazepine Ur Phencyclidine Scrn Ur Amphetamines Screen U Benzodiazepines Scrn Urine Cocaine Screen U Marijuana (THC) Screen COVID-19 ([facility]ESA) COVID-19 Clin Com Influenza Type A (AMANDA) Influenza Type B (AMANDA) Influenza A & B Note TB Test (T-Spot) Com TB Test Nil Control TB Test Panel A TB Test Panel B TB Test Positive Cntrl 10/30/24 10/30/24 10/31/24 17:25 19:55 06:33 WBC 11.2 H RBC 3.63 L Hgb 10.7 L Hct 31.4 L MCV 86.5 MCH 29.5 MCHC 34.1 RDW 13.5 Plt Count 288 MPV 8.9 L Immature Gran % (Auto) 0.5 H Neut % (Auto) 74.7 H Lymph % (Auto) 13.2 L [place] % (Auto) 10.5 Eos % (Auto) 0.7 Baso % (Auto) 0.4 Lymph # (Auto) 1.5 [place] # (Auto) 1.2 Eos # (Auto) 0.1 Baso # (Auto) 0.0 Abs Immat Gran (auto) 0.06 H Absolute Neuts (auto) 8.4 H Absolute Nucleated RBC 0.000 Nucleated RBC % (auto) 0.0 Smear Tech's Comments Hold Purple Top VBG pH VBG pCO2 VBG pO2 VBG HCO3 VBG O2 Saturation VBG Base Excess Sodium 136 Potassium 5.1 Chloride 101 Carbon Dioxide 26 Anion Gap 14 BUN 34 H Creatinine 1.17 Estim Creat Clear Calc 28.9 Estimated GFR 45 POC Glucose 244 H 173 H Random Glucose 225 H Estimat Average Glucose Hemoglobin A1c % Osmolality Lactic Acid Calcium 9.2 Magnesium Iron TIBC % Saturation Unsat Iron Binding Total Bilirubin 0.5 AST 15 ALT 23 Alkaline Phosphatase 64 Total Protein 6.8 Albumin 4.3 Triglycerides Cholesterol LDL Cholesterol, Calc HDL Cholesterol Lipase TSH Free T4 Urine Color Urine Appearance Urine pH Ur Specific [place] Urine Protein Urine Glucose (UA) Urine Ketones Urine Blood Urine Nitrite Ur Leukocyte Esterase Urine RBC Urine WBC Ur Squamous Epith Cells Urine Bacteria Hyaline Casts Urine Osmolality Ur Random Sodium Urine Opiates Screen Ur Buprenorphine Scrn Ur Oxycodone Screen Urine Methadone Screen Urine Fentanyl Screen Ur Barbiturates Screen Carbamazepine Ur Phencyclidine Scrn Ur Amphetamines Screen U Benzodiazepines Scrn Urine Cocaine Screen U Marijuana (THC) Screen COVID-19 ([facility]ESA) COVID-19 Clin Com Influenza Type A (AMANDA) Influenza Type B (AMANDA) Influenza A & B Note TB Test (T-Spot) Com TB Test Nil Control TB Test Panel A TB Test Panel B TB Test Positive Cntr 10/31/24 10/31/24 11/01/24 11:26 16:31 06:33 WBC RBC Hgb Hct MCV MCH MCHC RDW Plt Count MPV Immature Gran % (Auto) Neut % (Auto) Lymph % (Auto) [place] % (Auto) Eos % (Auto) Baso % (Auto) Lymph # (Auto) [place] # (Auto) Eos # (Auto) Baso # (Auto) Abs Immat Gran (auto) Absolute Neuts (auto) Absolute Nucleated RBC Nucleated RBC % (auto) Smear Tech's Comments Hold Purple Top VBG pH VBG pCO2 VBG pO2 VBG HCO3 VBG O2 Saturation VBG Base Excess Sodium Potassium Chloride Carbon Dioxide Anion Gap BUN Creatinine Estim Creat Clear Calc Estimated GFR POC Glucose 178 H 169 H 199 H Random Glucose Estimat Average Glucose Hemoglobin A1c % Osmolality Lactic Acid Calcium Magnesium Iron TIBC % Saturation Unsat Iron Binding Total Bilirubin AST ALT Alkaline Phosphatase Total Protein Albumin Triglycerides Cholesterol LDL Cholesterol, Calc HDL Cholesterol Lipase TSH Free T4 Urine Color Urine Appearance Urine pH Ur Specific [place] Urine Protein Urine Glucose (UA) Urine Ketones Urine Blood Urine Nitrite Ur Leukocyte Esterase Urine RBC Urine WBC Ur Squamous Epith Cells Urine Bacteria Hyaline Casts Urine Osmolality Ur Random Sodium Urine Opiates Screen Ur Buprenorphine Scrn Ur Oxycodone Screen Urine Methadone Screen Urine Fentanyl Screen Ur Barbiturates Screen Carbamazepine Ur Phencyclidine Scrn Ur Amphetamines Screen U Benzodiazepines Scrn Urine Cocaine Screen U Marijuana (THC) Screen COVID-19 ([facility]ES[facility]) COVID-19 Clin Com Influenza Type A (AMANDA) Influenza Type B (AMANDA) Influenza A & B Note TB Test (T-Spot) Com TB Test Nil Control TB Test Panel A TB Test Panel B TB Test Positive Cntrl 11/01/24 11/01/24 11/01/24 11:05 16:24 19:41 WBC RBC Hgb Hct MCV MCH MCHC RDW Plt Count MPV Immature Gran % (Auto) Neut % (Auto) Lymph % (Auto) [place] % (Auto) Eos % (Auto) Baso % (Auto) Lymph # (Auto) [place] # (Auto) Eos # (Auto) Baso # (Auto) Abs Immat Gran (auto) Absolute Neuts (auto) Absolute Nucleated RBC Nucleated RBC % (auto) Smear Tech's Comments Hold Purple Top VBG pH VBG pCO2 VBG pO2 VBG HCO3 VBG O2 Saturation VBG Base Excess Sodium Potassium Chloride Carbon Dioxide Anion Gap BUN Creatinine Estim Creat Clear Calc Estimated GFR POC Glucose 257 H 124 H 209 H Random Glucose Estimat Average Glucose Hemoglobin A1c % Osmolality Lactic Acid Calcium Magnesium Iron TIBC % Saturation Unsat Iron Binding Total Bilirubin AST ALT Alkaline Phosphatase Total Protein Albumin Triglycerides Cholesterol LDL Cholesterol, Calc HDL Cholesterol Lipase TSH Free T4 Urine Color Urine Appearance Urine pH Ur Specific [place] Urine Protein Urine Glucose (UA) Urine Ketones Urine Blood Urine Nitrite Ur Leukocyte Esterase Urine RBC Urine WBC Ur Squamous Epith Cells Urine Bacteria Hyaline Casts Urine Osmolality Ur Random Sodium Urine Opiates Screen Ur Buprenorphine Scrn Ur Oxycodone Screen Urine Methadone Screen Urine Fentanyl Screen Ur Barbiturates Screen Carbamazepine Ur Phencyclidine Scrn Ur Amphetamines Screen U Benzodiazepines Scrn Urine Cocaine Screen U Marijuana (THC) Screen COVID-19 (TRESA) COVID-19 Clin Com Influenza Type A (AMANDA) Influenza Type B (AMANDA) Influenza A & B Note TB Test (T-Spot) Com TB Test Nil Control TB Test Panel A TB Test Panel B TB Test Positive [facility] 11/02/24 11/02/24 11/02/24 06:34 11:26 11:28 WBC RBC Hgb Hct MCV MCH MCHC RDW Plt Count MPV Immature Gran % (Auto) Neut % (Auto) Lymph % (Auto) [place] % (Auto) Eos % (Auto) Baso % (Auto) Lymph # (Auto) [place] # (Auto) Eos # (Auto) Baso # (Auto) Abs Immat Gran (auto) Absolute Neuts (auto) Absolute Nucleated RBC Nucleated RBC % (auto) Smear Tech's Comments Hold Purple Top VBG pH VBG pCO2 VBG pO2 VBG HCO3 VBG O2 Saturation VBG Base Excess Sodium Potassium Chloride Carbon Dioxide Anion Gap BUN Creatinine Estim Creat Clear Calc Estimated GFR POC Glucose 185 H 445 H* 469 H* Random Glucose Estimat Average Glucose Hemoglobin A1c % Osmolality Lactic Acid Calcium Magnesium Iron TIBC % Saturation Unsat Iron Binding Total Bilirubin AST ALT Alkaline Phosphatase Total Protein Albumin Triglycerides Cholesterol LDL Cholesterol, Calc HDL Cholesterol Lipase TSH Free T4 Urine Color Urine Appearance Urine pH Ur Specific [place] Urine Protein Urine Glucose (UA) Urine Ketones Urine Blood Urine Nitrite Ur Leukocyte Esterase Urine RBC Urine WBC Ur Squamous Epith Cells Urine Bacteria Hyaline Casts Urine Osmolality Ur Random Sodium Urine Opiates Screen Ur Buprenorphine Scrn Ur Oxycodone Screen Urine Methadone Screen Urine Fentanyl Screen Ur Barbiturates Screen Carbamazepine Ur Phencyclidine Scrn Ur Amphetamines Screen U Benzodiazepines Scrn Urine Cocaine Screen U Marijuana (THC) Screen COVID-19 (TRESA) COVID-19 Clin Com Influenza Type A (AMANDA) Influenza Type B (AMANDA) Influenza A & B Note TB Test (T-Spot) Com TB Test Nil Control TB Test Panel A TB Test Panel B TB Test Positive [facility] 11/02/24 11/02/24 11/02/24 13:18 16:31 19:46 WBC RBC Hgb Hct MCV MCH MCHC RDW Plt Count MPV Immature Gran % (Auto) Neut % (Auto) Lymph % (Auto) [place] % (Auto) Eos % (Auto) Baso % (Auto) Lymph # (Auto) [place] # (Auto) Eos # (Auto) Baso # (Auto) Abs Immat Gran (auto) Absolute Neuts (auto) Absolute Nucleated RBC Nucleated RBC % (auto) Smear Tech's Comments Hold Purple Top VBG pH VBG pCO2 VBG pO2 VBG HCO3 VBG O2 Saturation VBG Base Excess Sodium Potassium Chloride Carbon Dioxide Anion Gap BUN Creatinine Estim Creat Clear Calc Estimated GFR POC Glucose 379 H* 206 H 153 H Random Glucose Estimat Average Glucose Hemoglobin A1c % Osmolality Lactic Acid Calcium Magnesium Iron TIBC % Saturation Unsat Iron Binding Total Bilirubin AST ALT Alkaline Phosphatase Total Protein Albumin Triglycerides Cholesterol LDL Cholesterol, Calc HDL Cholesterol Lipase TSH Free T4 Urine Color Urine Appearance Urine pH Ur Specific [place] Urine Protein Urine Glucose (UA) Urine Ketones Urine Blood Urine Nitrite Ur Leukocyte Esterase Urine RBC Urine WBC Ur Squamous Epith Cells Urine Bacteria Hyaline Casts Urine Osmolality Ur Random Sodium Urine Opiates Screen Ur Buprenorphine Scrn Ur Oxycodone Screen Urine Methadone Screen Urine Fentanyl Screen Ur Barbiturates Screen Carbamazepine Ur Phencyclidine Scrn Ur Amphetamines Screen U Benzodiazepines Scrn Urine Cocaine Screen U Marijuana (THC) Screen COVID-19 (TRESA) COVID-19 Clin Com Influenza Type A (AMANDA) Influenza Type B (AMANDA) Influenza A & B Note TB Test (T-Spot) Com TB Test Nil Control TB Test Panel A TB Test Panel B TB Test Positive Cntrl 11/02/24 11/02/24 11/02/24 20:13 20:14 20:18 WBC 6.8 RBC 3.44 L Hgb 10.4 L Hct 29.1 L MCV 84.6 MCH 30.2 MCHC 35.7 H RDW 13.2 Plt Count 286 MPV 8.6 L Immature Gran % (Auto) 0.4 Neut % (Auto) 59.4 Lymph % (Auto) 27.6 [place] % (Auto) 11.3 H Eos % (Auto) 1.0 Baso % (Auto) 0.3 Lymph # (Auto) 1.9 [place] # (Auto) 0.8 Eos # (Auto) 0.1 Baso # (Auto) 0.0 Abs Immat Gran (auto) 0.03 Absolute Neuts (auto) 4.1 Absolute Nucleated RBC 0.000 Nucleated RBC % (auto) 0.0 Smear Tech's Comments Hold Purple Top VBG pH 7.44 H VBG pCO2 37 VBG pO2 48 VBG HCO3 26 VBG O2 Saturation 76.0 VBG Base Excess 2.3 Sodium 133 L Potassium 4.7 Chloride 100 Carbon Dioxide 26 Anion Gap 12 BUN 33 H Creatinine 1.86 H Estim Creat Clear Calc 18.0 Estimated GFR 26 POC Glucose Random Glucose 135 H Estimat Average Glucose Hemoglobin A1c % Osmolality Lactic Acid 1.2 Calcium 9.3 Magnesium 2.2 Iron TIBC % Saturation Unsat Iron Binding Total Bilirubin 0.4 AST 16 ALT 25 Alkaline Phosphatase 79 Total Protein 7.1 Albumin 4.4 Triglycerides Cholesterol LDL Cholesterol, Calc HDL Cholesterol Lipase 37 TSH Free T4 Urine Color Urine Appearance Urine pH Ur Specific [place] Urine Protein Urine Glucose (UA) Urine Ketones Urine Blood Urine Nitrite Ur Leukocyte Esterase Urine RBC Urine WBC Ur Squamous Epith Cells Urine Bacteria Hyaline Casts Urine Osmolality Ur Random Sodium Urine Opiates Screen Ur Buprenorphine Scrn Ur Oxycodone Screen Urine Methadone Screen Urine Fentanyl Screen Ur Barbiturates Screen Carbamazepine Ur Phencyclidine Scrn Ur Amphetamines Screen U Benzodiazepines Scrn Urine Cocaine Screen U Marijuana (THC) Screen COVID-19 (TRESA) COVID-19 Clin Com Influenza Type A (AMANDA) Influenza Type B (AMANDA) Influenza A & B Note TB Test (T-Spot) Com TB Test Nil Control TB Test Panel A TB Test Panel B TB Test Positive Cntr 11/02/24 11/02/24 11/03/24 20:20 21:38 06:38 WBC RBC Hgb Hct MCV MCH MCHC RDW Plt Count MPV Immature Gran % (Auto) Neut % (Auto) Lymph % (Auto) [place] % (Auto) Eos % (Auto) Baso % (Auto) Lymph # (Auto) [place] # (Auto) Eos # (Auto) Baso # (Auto) Abs Immat Gran (auto) Absolute Neuts (auto) Absolute Nucleated RBC Nucleated RBC % (auto) Smear Tech's Comments Hold Purple Top VBG pH VBG pCO2 VBG pO2 VBG HCO3 VBG O2 Saturation VBG Base Excess Sodium Potassium Chloride Carbon Dioxide Anion Gap BUN Creatinine Estim Creat Clear Calc Estimated GFR POC Glucose 123 H 164 H Random Glucose Estimat Average Glucose Hemoglobin A1c % Osmolality Lactic Acid Calcium Magnesium Iron TIBC % Saturation Unsat Iron Binding Total Bilirubin AST ALT Alkaline Phosphatase Total Protein Albumin Triglycerides Cholesterol LDL Cholesterol, Calc HDL Cholesterol Lipase TSH Free T4 Urine Color Yellow Urine Appearance Clear Urine pH 6.5 Ur Specific [place] 1.015 Urine Protein Negative Urine Glucose (UA) Negative Urine Ketones Negative Urine Blood Negative Urine Nitrite Negative Ur Leukocyte Esterase Large (3+) H Urine RBC 0-2 Urine WBC 11-20 H Ur Squamous Epith Cells 0-2 Urine Bacteria None Seen Hyaline Casts 0-2 Urine Osmolality Ur Random Sodium Urine Opiates Screen Ur Buprenorphine Scrn Ur Oxycodone Screen Urine Methadone Screen Urine Fentanyl Screen Ur Barbiturates Screen Carbamazepine Ur Phencyclidine Scrn Ur Amphetamines Screen U Benzodiazepines Scrn Urine Cocaine Screen U Marijuana (THC) Screen COVID-19 ([facility]ESA) COVID-19 Clin Com Influenza Type A (AMANDA) Influenza Type B (AMANDA) Influenza A & B Note TB Test (T-Spot) Com TB Test Nil Control TB Test Panel A TB Test Panel B TB Test Positive [facility] 11/03/24 11/03/24 11/04/24 11:23 16:03 06:47 WBC RBC Hgb Hct MCV MCH MCHC RDW Plt Count MPV Immature Gran % (Auto) Neut % (Auto) Lymph % (Auto) [place] % (Auto) Eos % (Auto) Baso % (Auto) Lymph # (Auto) [place] # (Auto) Eos # (Auto) Baso # (Auto) Abs Immat Gran (auto) Absolute Neuts (auto) Absolute Nucleated RBC Nucleated RBC % (auto) Smear Tech's Comments Hold Purple Top VBG pH VBG pCO2 VBG pO2 VBG HCO3 VBG O2 Saturation VBG Base Excess Sodium Potassium Chloride Carbon Dioxide Anion Gap BUN Creatinine Estim Creat Clear Calc Estimated GFR POC Glucose 238 H 185 H 148 H Random Glucose Estimat Average Glucose Hemoglobin A1c % Osmolality Lactic Acid Calcium Magnesium Iron TIBC % Saturation Unsat Iron Binding Total Bilirubin AST ALT Alkaline Phosphatase Total Protein Albumin Triglycerides Cholesterol LDL Cholesterol, Calc HDL Cholesterol Lipase TSH Free T4 Urine Color Urine Appearance Urine pH Ur Specific [place] Urine Protein Urine Glucose (UA) Urine Ketones Urine Blood Urine Nitrite Ur Leukocyte Esterase Urine RBC Urine WBC Ur Squamous Epith Cells Urine Bacteria Hyaline Casts Urine Osmolality Ur Random Sodium Urine Opiates Screen Ur Buprenorphine Scrn Ur Oxycodone Screen Urine Methadone Screen Urine Fentanyl Screen Ur Barbiturates Screen Carbamazepine Ur Phencyclidine Scrn Ur Amphetamines Screen U Benzodiazepines Scrn Urine Cocaine Screen U Marijuana (THC) Screen COVID-19 ([facility]ESA) COVID-19 Clin Com Influenza Type A (AMANDA) Influenza Type B (AMANDA) Influenza A & B Note TB Test (T-Spot) Com TB Test Nil Control TB Test Panel A TB Test Panel B TB Test Positive [facility] 11/04/24 11/04/24 11/04/24 09:52 11:20 16:30 WBC RBC Hgb Hct MCV MCH MCHC RDW Plt Count MPV Immature Gran % (Auto) Neut % (Auto) Lymph % (Auto) [place] % (Auto) Eos % (Auto) Baso % (Auto) Lymph # (Auto) [place] # (Auto) Eos # (Auto) Baso # (Auto) Abs Immat Gran (auto) Absolute Neuts (auto) Absolute Nucleated RBC Nucleated RBC % (auto) Smear Tech's Comments Hold Purple Top VBG pH VBG pCO2 VBG pO2 VBG HCO3 VBG O2 Saturation VBG Base Excess Sodium 134 L Potassium 5.5 H Chloride 102 Carbon Dioxide 22 Anion Gap 16 BUN 35 H Creatinine 1.15 Estim Creat Clear Calc 29.2 Estimated GFR 46 POC Glucose 178 H 139 H Random Glucose 232 H Estimat Average Glucose Hemoglobin A1c % Osmolality Lactic Acid Calcium 9.1 Magnesium Iron TIBC % Saturation Unsat Iron Binding Total Bilirubin 0.3 AST 25 ALT 25 Alkaline Phosphatase 67 Total Protein 6.9 Albumin 4.2 Triglycerides Cholesterol LDL Cholesterol, Calc HDL Cholesterol Lipase TSH Free T4 Urine Color Urine Appearance Urine pH Ur Specific [place] Urine Protein Urine Glucose (UA) Urine Ketones Urine Blood Urine Nitrite Ur Leukocyte Esterase Urine RBC Urine WBC Ur Squamous Epith Cells Urine Bacteria Hyaline Casts Urine Osmolality Ur Random Sodium Urine Opiates Screen Ur Buprenorphine Scrn Ur Oxycodone Screen Urine Methadone Screen Urine Fentanyl Screen Ur Barbiturates Screen Carbamazepine Ur Phencyclidine Scrn Ur Amphetamines Screen U Benzodiazepines Scrn Urine Cocaine Screen U Marijuana (THC) Screen COVID-19 ([facility]ESA) COVID-19 Clin Com Influenza Type A (AMANDA) Influenza Type B (AMANDA) Influenza A & B Note TB Test (T-Spot) Com TB Test Nil Control TB Test Panel A TB Test Panel B [facility] 11/04[facility]24 11/04/24 11/05/24 16:53 21:12 06:28 WBC RBC Hgb Hct MCV MCH MCHC RDW Plt Count MPV Immature Gran % (Auto) Neut % (Auto) Lymph % (Auto) [place] % (Auto) Eos % (Auto) Baso % (Auto) Lymph # (Auto) [place] # (Auto) Eos # (Auto) Baso # (Auto) Abs Immat Gran (auto) Absolute Neuts (auto) Absolute Nucleated RBC Nucleated RBC % (auto) Smear Tech's Comments Hold Purple Top VBG pH VBG pCO2 VBG pO2 VBG HCO3 VBG O2 Saturation VBG Base Excess Sodium Potassium Chloride Carbon Dioxide Anion Gap BUN Creatinine Estim Creat Clear Calc Estimated GFR POC Glucose 192 H 199 H 155 H Random Glucose Estimat Average Glucose Hemoglobin A1c % Osmolality Lactic Acid Calcium Magnesium Iron TIBC % Saturation Unsat Iron Binding Total Bilirubin AST ALT Alkaline Phosphatase Total Protein Albumin Triglycerides Cholesterol LDL Cholesterol, Calc HDL Cholesterol Lipase TSH Free T4 Urine Color Urine Appearance Urine pH Ur Specific [place] Urine Protein Urine Glucose (UA) Urine Ketones Urine Blood Urine Nitrite Ur Leukocyte Esterase Urine RBC Urine WBC Ur Squamous Epith Cells Urine Bacteria Hyaline Casts Urine Osmolality Ur Random Sodium Urine Opiates Screen Ur Buprenorphine Scrn Ur Oxycodone Screen Urine Methadone Screen Urine Fentanyl Screen Ur Barbiturates Screen Carbamazepine Ur Phencyclidine Scrn Ur Amphetamines Screen U Benzodiazepines Scrn Urine Cocaine Screen U Marijuana (THC) Screen COVID-19 (TRESA) COVID-19 Clin Com Influenza Type A (AMANDA) Influenza Type B (AMANDA) Influenza A & B Note TB Test (T-Spot) Com TB Test Nil Control TB Test Panel A TB Test Panel B TB Test Positive [facility] 11/05/24 11/05/24 11/05/24 11:14 16:10 20:54 WBC RBC Hgb Hct MCV MCH MCHC RDW Plt Count MPV Immature Gran % (Auto) Neut % (Auto) Lymph % (Auto) [place] % (Auto) Eos % (Auto) Baso % (Auto) Lymph # (Auto) [place] # (Auto) Eos # (Auto) Baso # (Auto) Abs Immat Gran (auto) Absolute Neuts (auto) Absolute Nucleated RBC Nucleated RBC % (auto) Smear Tech's Comments Hold Purple Top VBG pH VBG pCO2 VBG pO2 VBG HCO3 VBG O2 Saturation VBG Base Excess Sodium Potassium Chloride Carbon Dioxide Anion Gap BUN Creatinine Estim Creat Clear Calc Estimated GFR POC Glucose 145 H 145 H 205 H Random Glucose Estimat Average Glucose Hemoglobin A1c % Osmolality Lactic Acid Calcium Magnesium Iron TIBC % Saturation Unsat Iron Binding Total Bilirubin AST ALT Alkaline Phosphatase Total Protein Albumin Triglycerides Cholesterol LDL Cholesterol, Calc HDL Cholesterol Lipase TSH Free T4 Urine Color Urine Appearance Urine pH Ur Specific [place] Urine Protein Urine Glucose (UA) Urine Ketones Urine Blood Urine Nitrite Ur Leukocyte Esterase Urine RBC Urine WBC Ur Squamous Epith Cells Urine Bacteria Hyaline Casts Urine Osmolality Ur Random Sodium Urine Opiates Screen Ur Buprenorphine Scrn Ur Oxycodone Screen Urine Methadone Screen Urine Fentanyl Screen Ur Barbiturates Screen Carbamazepine Ur Phencyclidine Scrn Ur Amphetamines Screen U Benzodiazepines Scrn Urine Cocaine Screen U Marijuana (THC) Screen COVID-19 (TRESA) COVID-19 Clin Com Influenza Type A (AMANAD) Influenza Type B (AMANDA) Influenza A & B Note TB Test (T-Spot) Com TB Test Nil Control TB Test Panel A TB Test Panel B TB Test Positive Cntr 11/06/24 11/06/24 11/06/24 06:29 11:28 16:19 WBC RBC Hgb Hct MCV MCH MCHC RDW Plt Count MPV Immature Gran % (Auto) Neut % (Auto) Lymph % (Auto) [place] % (Auto) Eos % (Auto) Baso % (Auto) Lymph # (Auto) [place] # (Auto) Eos # (Auto) Baso # (Auto) Abs Immat Gran (auto) Absolute Neuts (auto) Absolute Nucleated RBC Nucleated RBC % (auto) Smear Tech's Comments Hold Purple Top VBG pH VBG pCO2 VBG pO2 VBG HCO3 VBG O2 Saturation VBG Base Excess Sodium Potassium Chloride Carbon Dioxide Anion Gap BUN Creatinine Estim Creat Clear Calc Estimated GFR POC Glucose 186 H 166 H 168 H Random Glucose Estimat Average Glucose Hemoglobin A1c % Osmolality Lactic Acid Calcium Magnesium Iron TIBC % Saturation Unsat Iron Binding Total Bilirubin AST ALT Alkaline Phosphatase Total Protein Albumin Triglycerides Cholesterol LDL Cholesterol, Calc HDL Cholesterol Lipase TSH Free T4 Urine Color Urine Appearance Urine pH Ur Specific [place] Urine Protein Urine Glucose (UA) Urine Ketones Urine Blood Urine Nitrite Ur Leukocyte Esterase Urine RBC Urine WBC Ur Squamous Epith Cells Urine Bacteria Hyaline Casts Urine Osmolality Ur Random Sodium Urine Opiates Screen Ur Buprenorphine Scrn Ur Oxycodone Screen Urine Methadone Screen Urine Fentanyl Screen Ur Barbiturates Screen Carbamazepine Ur Phencyclidine Scrn Ur Amphetamines Screen U Benzodiazepines Scrn Urine Cocaine Screen U Marijuana (THC) Screen COVID-19 (TRESA) COVID-19 Clin Com Influenza Type A (AMANDA) Influenza Type B (AMANDA) Influenza A & B Note TB Test (T-Spot) Com TB Test Nil Control TB Test Panel A TB Test Panel B TB Test Positive Cntr 11/06/24 11/07/24 11/07/24 21:20 06:20 10:45 WBC RBC Hgb Hct MCV MCH MCHC RDW Plt Count MPV Immature Gran % (Auto) Neut % (Auto) Lymph % (Auto) [place] % (Auto) Eos % (Auto) Baso % (Auto) Lymph # (Auto) [place] # (Auto) Eos # (Auto) Baso # (Auto) Abs Immat Gran (auto) Absolute Neuts (auto) Absolute Nucleated RBC Nucleated RBC % (auto) Smear Tech's Comments Hold Purple Top VBG pH VBG pCO2 VBG pO2 VBG HCO3 VBG O2 Saturation VBG Base Excess Sodium Potassium Chloride Carbon Dioxide Anion Gap BUN Creatinine Estim Creat Clear Calc Estimated GFR POC Glucose 82 125 H 159 H Random Glucose Estimat Average Glucose Hemoglobin A1c % Osmolality Lactic Acid Calcium Magnesium Iron TIBC % Saturation Unsat Iron Binding Total Bilirubin AST ALT Alkaline Phosphatase Total Protein Albumin Triglycerides Cholesterol LDL Cholesterol, Calc HDL Cholesterol Lipase TSH Free T4 Urine Color Urine Appearance Urine pH Ur Specific [place] Urine Protein Urine Glucose (UA) Urine Ketones Urine Blood Urine Nitrite Ur Leukocyte Esterase Urine RBC Urine WBC Ur Squamous Epith Cells Urine Bacteria Hyaline Casts Urine Osmolality Ur Random Sodium Urine Opiates Screen Ur Buprenorphine Scrn Ur Oxycodone Screen Urine Methadone Screen Urine Fentanyl Screen Ur Barbiturates Screen Carbamazepine Ur Phencyclidine Scrn Ur Amphetamines Screen U Benzodiazepines Scrn Urine Cocaine Screen U Marijuana (THC) Screen COVID-19 (TRESA) COVID-19 Clin Com Influenza Type A (AMANDA) Influenza Type B (AMANDA) Influenza A & B Note TB Test (T-Spot) Com TB Test Nil Control TB Test Panel A TB Test Panel B TB Test Positive Cntrl 11/07/24 11/07/24 11/08/24 16:17 20:21 06:25 WBC RBC Hgb Hct MCV MCH MCHC RDW Plt Count MPV Immature Gran % (Auto) Neut % (Auto) Lymph % (Auto) [place] % (Auto) Eos % (Auto) Baso % (Auto) Lymph # (Auto) [place] # (Auto) Eos # (Auto) Baso # (Auto) Abs Immat Gran (auto) Absolute Neuts (auto) Absolute Nucleated RBC Nucleated RBC % (auto) Smear Tech's Comments Hold Purple Top VBG pH VBG pCO2 VBG pO2 VBG HCO3 VBG O2 Saturation VBG Base Excess Sodium Potassium Chloride Carbon Dioxide Anion Gap BUN Creatinine Estim Creat Clear Calc Estimated GFR POC Glucose 115 142 H 147 H Random Glucose Estimat Average Glucose Hemoglobin A1c % Osmolality Lactic Acid Calcium Magnesium Iron TIBC % Saturation Unsat Iron Binding Total Bilirubin AST ALT Alkaline Phosphatase Total Protein Albumin Triglycerides Cholesterol LDL Cholesterol, Calc HDL Cholesterol Lipase TSH Free T4 Urine Color Urine Appearance Urine pH Ur Specific [place] Urine Protein Urine Glucose (UA) Urine Ketones Urine Blood Urine Nitrite Ur Leukocyte Esterase Urine RBC Urine WBC Ur Squamous Epith Cells Urine Bacteria Hyaline Casts Urine Osmolality Ur Random Sodium Urine Opiates Screen Ur Buprenorphine Scrn Ur Oxycodone Screen Urine Methadone Screen Urine Fentanyl Screen Ur Barbiturates Screen Carbamazepine Ur Phencyclidine Scrn Ur Amphetamines Screen U Benzodiazepines Scrn Urine Cocaine Screen U Marijuana (THC) Screen COVID-19 ([facility]) COVID-19 Clin Com Influenza Type A (AMANDA) Influenza Type B (AMANDA) Influenza A & B Note TB Test (T-Spot) Com TB Test Nil Control TB Test Panel A TB Test Panel B TB Test Positive Cntrl 11/08/24 11/08/24 11/08/24 11:07 16:51 21:23 WBC RBC Hgb Hct MCV MCH MCHC RDW Plt Count MPV Immature Gran % (Auto) Neut % (Auto) Lymph % (Auto) [place] % (Auto) Eos % (Auto) Baso % (Auto) Lymph # (Auto) [place] # (Auto) Eos # (Auto) Baso # (Auto) Abs Immat Gran (auto) Absolute Neuts (auto) Absolute Nucleated RBC Nucleated RBC % (auto) Smear Tech's Comments Hold Purple Top VBG pH VBG pCO2 VBG pO2 VBG HCO3 VBG O2 Saturation VBG Base Excess Sodium Potassium Chloride Carbon Dioxide Anion Gap BUN Creatinine Estim Creat Clear Calc Estimated GFR POC Glucose 245 H 115 255 H Random Glucose Estimat Average Glucose Hemoglobin A1c % Osmolality Lactic Acid Calcium Magnesium Iron TIBC % Saturation Unsat Iron Binding Total Bilirubin AST ALT Alkaline Phosphatase Total Protein Albumin Triglycerides Cholesterol LDL Cholesterol, Calc HDL Cholesterol Lipase TSH Free T4 Urine Color Urine Appearance Urine pH Ur Specific [place] Urine Protein Urine Glucose (UA) Urine Ketones Urine Blood Urine Nitrite Ur Leukocyte Esterase Urine RBC Urine WBC Ur Squamous Epith Cells Urine Bacteria Hyaline Casts Urine Osmolality Ur Random Sodium Urine Opiates Screen Ur Buprenorphine Scrn Ur Oxycodone Screen Urine Methadone Screen Urine Fentanyl Screen Ur Barbiturates Screen Carbamazepine Ur Phencyclidine Scrn Ur Amphetamines Screen U Benzodiazepines Scrn Urine Cocaine Screen U Marijuana (THC) Screen COVID-19 ([facility]) COVID-19 Clin Com Influenza Type A (AMANDA) Influenza Type B (AMANDA) Influenza A & B Note TB Test (T-Spot) Com TB Test Nil Control TB Test Panel A TB Test Panel B TB Test Positive [facility] 11/09/24 11/09/24 11/09/24 06:39 11:02 16:04 WBC RBC Hgb Hct MCV MCH MCHC RDW Plt Count MPV Immature Gran % (Auto) Neut % (Auto) Lymph % (Auto) [place] % (Auto) Eos % (Auto) Baso % (Auto) Lymph # (Auto) [place] # (Auto) Eos # (Auto) Baso # (Auto) Abs Immat Gran (auto) Absolute Neuts (auto) Absolute Nucleated RBC Nucleated RBC % (auto) Smear Tech's Comments Hold Purple Top VBG pH VBG pCO2 VBG pO2 VBG HCO3 VBG O2 Saturation VBG Base Excess Sodium Potassium Chloride Carbon Dioxide Anion Gap BUN Creatinine Estim Creat Clear Calc Estimated GFR POC Glucose 137 H 302 H 77 Random Glucose Estimat Average Glucose Hemoglobin A1c % Osmolality Lactic Acid Calcium Magnesium Iron TIBC % Saturation Unsat Iron Binding Total Bilirubin AST ALT Alkaline Phosphatase Total Protein Albumin Triglycerides Cholesterol LDL Cholesterol, Calc HDL Cholesterol Lipase TSH Free T4 Urine Color Urine Appearance Urine pH Ur Specific [place] Urine Protein Urine Glucose (UA) Urine Ketones Urine Blood Urine Nitrite Ur Leukocyte Esterase Urine RBC Urine WBC Ur Squamous Epith Cells Urine Bacteria Hyaline Casts Urine Osmolality Ur Random Sodium Urine Opiates Screen Ur Buprenorphine Scrn Ur Oxycodone Screen Urine Methadone Screen Urine Fentanyl Screen Ur Barbiturates Screen Carbamazepine Ur Phencyclidine Scrn Ur Amphetamines Screen U Benzodiazepines Scrn Urine Cocaine Screen U Marijuana (THC) Screen COVID-19 ([facility]) COVID-19 Clin Com Influenza Type A (AMANDA) Influenza Type B (AMANDA) Influenza A & B Note TB Test (T-Spot) Com TB Test Nil Control TB Test Panel A TB Test Panel B TB Test Positive [facility] 11/09/24 11/10/24 11/10/24 20:29 06:37 11:29 WBC RBC Hgb Hct MCV MCH MCHC RDW Plt Count MPV Immature Gran % (Auto) Neut % (Auto) Lymph % (Auto) [place] % (Auto) Eos % (Auto) Baso % (Auto) Lymph # (Auto) [place] # (Auto) Eos # (Auto) Baso # (Auto) Abs Immat Gran (auto) Absolute Neuts (auto) Absolute Nucleated RBC Nucleated RBC % (auto) Smear Tech's Comments Hold Purple Top VBG pH VBG pCO2 VBG pO2 VBG HCO3 VBG O2 Saturation VBG Base Excess Sodium Potassium Chloride Carbon Dioxide Anion Gap BUN Creatinine Estim Creat Clear Calc Estimated GFR POC Glucose 242 H 187 H 230 H Random Glucose Estimat Average Glucose Hemoglobin A1c % Osmolality Lactic Acid Calcium Magnesium Iron TIBC % Saturation Unsat Iron Binding Total Bilirubin AST ALT Alkaline Phosphatase Total Protein Albumin Triglycerides Cholesterol LDL Cholesterol, Calc HDL Cholesterol Lipase TSH Free T4 Urine Color Urine Appearance Urine pH Ur Specific [place] Urine Protein Urine Glucose (UA) Urine Ketones Urine Blood Urine Nitrite Ur Leukocyte Esterase Urine RBC Urine WBC Ur Squamous Epith Cells Urine Bacteria Hyaline Casts Urine Osmolality Ur Random Sodium Urine Opiates Screen Ur Buprenorphine Scrn Ur Oxycodone Screen Urine Methadone Screen Urine Fentanyl Screen Ur Barbiturates Screen Carbamazepine Ur Phencyclidine Scrn Ur Amphetamines Screen U Benzodiazepines Scrn Urine Cocaine Screen U Marijuana (THC) Screen COVID-19 ([facility]) COVID-19 Clin Com Influenza Type A (AMANDA) Influenza Type B (AMANDA) Influenza A & B Note TB Test (T-Spot) Com TB Test Nil Control TB Test Panel A TB Test Panel B TB Test Positive Cntrl 11/10/24 11/10/24 11/11/24 16:24 20:05 06:32 WBC RBC Hgb Hct MCV MCH MCHC RDW Plt Count MPV Immature Gran % (Auto) Neut % (Auto) Lymph % (Auto) [place] % (Auto) Eos % (Auto) Baso % (Auto) Lymph # (Auto) [place] # (Auto) Eos # (Auto) Baso # (Auto) Abs Immat Gran (auto) Absolute Neuts (auto) Absolute Nucleated RBC Nucleated RBC % (auto) Smear Tech's Comments Hold Purple Top VBG pH VBG pCO2 VBG pO2 VBG HCO3 VBG O2 Saturation VBG Base Excess Sodium Potassium Chloride Carbon Dioxide Anion Gap BUN Creatinine Estim Creat Clear Calc Estimated GFR POC Glucose 105 126 H 159 H Random Glucose Estimat Average Glucose Hemoglobin A1c % Osmolality Lactic Acid Calcium Magnesium Iron TIBC % Saturation Unsat Iron Binding Total Bilirubin AST ALT Alkaline Phosphatase Total Protein Albumin Triglycerides Cholesterol LDL Cholesterol, Calc HDL Cholesterol Lipase TSH Free T4 Urine Color Urine Appearance Urine pH Ur Specific [place] Urine Protein Urine Glucose (UA) Urine Ketones Urine Blood Urine Nitrite Ur Leukocyte Esterase Urine RBC Urine WBC Ur Squamous Epith Cells Urine Bacteria Hyaline Casts Urine Osmolality Ur Random Sodium Urine Opiates Screen Ur Buprenorphine Scrn Ur Oxycodone Screen Urine Methadone Screen Urine Fentanyl Screen Ur Barbiturates Screen Carbamazepine Ur Phencyclidine Scrn Ur Amphetamines Screen U Benzodiazepines Scrn Urine Cocaine Screen U Marijuana (THC) Screen COVID-19 ([facility]) COVID-19 Clin Com Influenza Type A (AMANDA) Influenza Type B (AMANDA) Influenza A & B Note TB Test (T-Spot) Com TB Test Nil Control TB Test Panel A TB Test Panel B TB Test Positive [facility] 11/11/24 11/11/24 11/11/24 11:17 16:17 20:14 WBC RBC Hgb Hct MCV MCH MCHC RDW Plt Count MPV Immature Gran % (Auto) Neut % (Auto) Lymph % (Auto) [place] % (Auto) Eos % (Auto) Baso % (Auto) Lymph # (Auto) [place] # (Auto) Eos # (Auto) Baso # (Auto) Abs Immat Gran (auto) Absolute Neuts (auto) Absolute Nucleated RBC Nucleated RBC % (auto) Smear Tech's Comments Hold Purple Top VBG pH VBG pCO2 VBG pO2 VBG HCO3 VBG O2 Saturation VBG Base Excess Sodium Potassium Chloride Carbon Dioxide Anion Gap BUN Creatinine Estim Creat Clear Calc Estimated GFR POC Glucose 140 H 130 H 194 H Random Glucose Estimat Average Glucose Hemoglobin A1c % Osmolality Lactic Acid Calcium Magnesium Iron TIBC % Saturation Unsat Iron Binding Total Bilirubin AST ALT Alkaline Phosphatase Total Protein Albumin Triglycerides Cholesterol LDL Cholesterol, Calc HDL Cholesterol Lipase TSH Free T4 Urine Color Urine Appearance Urine pH Ur Specific [place] Urine Protein Urine Glucose (UA) Urine Ketones Urine Blood Urine Nitrite Ur Leukocyte Esterase Urine RBC Urine WBC Ur Squamous Epith Cells Urine Bacteria Hyaline Casts Urine Osmolality Ur Random Sodium Urine Opiates Screen Ur Buprenorphine Scrn Ur Oxycodone Screen Urine Methadone Screen Urine Fentanyl Screen Ur Barbiturates Screen Carbamazepine Ur Phencyclidine Scrn Ur Amphetamines Screen U Benzodiazepines Scrn Urine Cocaine Screen U Marijuana (THC) Screen COVID-19 ([facility]) COVID-19 Clin Com Influenza Type A (AMANDA) Influenza Type B (AMANDA) Influenza A & B Note TB Test (T-Spot) Com TB Test Nil Control TB Test Panel A TB Test Panel B TB Test Positive [facility] 11/12/24 11/12/24 11/12/24 06:32 11:19 16:20 WBC RBC Hgb Hct MCV MCH MCHC RDW Plt Count MPV Immature Gran % (Auto) Neut % (Auto) Lymph % (Auto) [place] % (Auto) Eos % (Auto) Baso % (Auto) Lymph # (Auto) [place] # (Auto) Eos # (Auto) Baso # (Auto) Abs Immat Gran (auto) Absolute Neuts (auto) Absolute Nucleated RBC Nucleated RBC % (auto) Smear Tech's Comments Hold Purple Top VBG pH VBG pCO2 VBG pO2 VBG HCO3 VBG O2 Saturation VBG Base Excess Sodium Potassium Chloride Carbon Dioxide Anion Gap BUN Creatinine Estim Creat Clear Calc Estimated GFR POC Glucose 171 H 121 H 170 H Random Glucose Estimat Average Glucose Hemoglobin A1c % Osmolality Lactic Acid Calcium Magnesium Iron TIBC % Saturation Unsat Iron Binding Total Bilirubin AST ALT Alkaline Phosphatase Total Protein Albumin Triglycerides Cholesterol LDL Cholesterol, Calc HDL Cholesterol Lipase TSH Free T4 Urine Color Urine Appearance Urine pH Ur Specific [place] Urine Protein Urine Glucose (UA) Urine Ketones Urine Blood Urine Nitrite Ur Leukocyte Esterase Urine RBC Urine WBC Ur Squamous Epith Cells Urine Bacteria Hyaline Casts Urine Osmolality Ur Random Sodium Urine Opiates Screen Ur Buprenorphine Scrn Ur Oxycodone Screen Urine Methadone Screen Urine Fentanyl Screen Ur Barbiturates Screen Carbamazepine Ur Phencyclidine Scrn Ur Amphetamines Screen U Benzodiazepines Scrn Urine Cocaine Screen U Marijuana (THC) Screen COVID-19 ([facility]) COVID-19 Clin Com Influenza Type A (AMANDA) Influenza Type B (AMANDA) Influenza A & B Note TB Test (T-Spot) Com TB Test Nil Control TB Test Panel A TB Test Panel B TB Test Positive Cntrl 11/13/24 11/13/24 11/13/24 06:41 09:09 11:20 WBC RBC Hgb Hct MCV MCH MCHC RDW Plt Count MPV Immature Gran % (Auto) Neut % (Auto) Lymph % (Auto) [place] % (Auto) Eos % (Auto) Baso % (Auto) Lymph # (Auto) [place] # (Auto) Eos # (Auto) Baso # (Auto) Abs Immat Gran (auto) Absolute Neuts (auto) Absolute Nucleated RBC Nucleated RBC % (auto) Smear Tech's Comments Hold Purple Top VBG pH VBG pCO2 VBG pO2 VBG HCO3 VBG O2 Saturation VBG Base Excess Sodium Potassium Chloride Carbon Dioxide Anion Gap BUN Creatinine Estim Creat Clear Calc Estimated GFR POC Glucose 173 H 181 H Random Glucose Estimat Average Glucose Hemoglobin A1c % Osmolality Lactic Acid Calcium Magnesium Iron TIBC % Saturation Unsat Iron Binding Total Bilirubin AST ALT Alkaline Phosphatase Total Protein Albumin Triglycerides Cholesterol LDL Cholesterol, Calc HDL Cholesterol Lipase TSH Free T4 Urine Color Urine Appearance Urine pH Ur Specific [place] Urine Protein Urine Glucose (UA) Urine Ketones Urine Blood Urine Nitrite Ur Leukocyte Esterase Urine RBC Urine WBC Ur Squamous Epith Cells Urine Bacteria Hyaline Casts Urine Osmolality Ur Random Sodium Urine Opiates Screen Ur Buprenorphine Scrn Ur Oxycodone Screen Urine Methadone Screen Urine Fentanyl Screen Ur Barbiturates Screen Carbamazepine 9.1 Ur Phencyclidine Scrn Ur Amphetamines Screen U Benzodiazepines Scrn Urine Cocaine Screen U Marijuana (THC) Screen COVID-19 ([facility]) COVID-19 Clin Com Influenza Type A (AMANDA) Influenza Type B (AMANDA) Influenza A & B Note TB Test (T-Spot) Com TB Test Nil Control TB Test Panel A TB Test Panel B TB Test Positive Cntrl 11/13/24 11/13/24 11/13/24 11:27 11:30 15:40 WBC RBC Hgb Hct MCV MCH MCHC RDW Plt Count MPV Immature Gran % (Auto) Neut % (Auto) Lymph % (Auto) [place] % (Auto) Eos % (Auto) Baso % (Auto) Lymph # (Auto) [place] # (Auto) Eos # (Auto) Baso # (Auto) Abs Immat Gran (auto) Absolute Neuts (auto) Absolute Nucleated RBC Nucleated RBC % (auto) Smear Tech's Comments Hold Purple Top SEE NOTE VBG pH VBG pCO2 VBG pO2 VBG HCO3 VBG O2 Saturation VBG Base Excess Sodium 127 L Potassium 4.8 Chloride 95 L Carbon Dioxide 24 Anion Gap 13 BUN 21 H Creatinine 0.85 Estim Creat Clear Calc 39.5 Estimated GFR > 60 POC Glucose Random Glucose 191 H Estimat Average Glucose Hemoglobin A1c % Osmolality 271 L Lactic Acid Calcium 9.4 Magnesium Iron TIBC % Saturation Unsat Iron Binding Total Bilirubin 0.5 AST 16 ALT 21 Alkaline Phosphatase 68 Total Protein 7.2 Albumin 4.6 Triglycerides Cholesterol LDL Cholesterol, Calc HDL Cholesterol Lipase TSH Free T4 Urine Color Urine Appearance Urine pH Ur Specific [place] Urine Protein Urine Glucose (UA) Urine Ketones Urine Blood Urine Nitrite Ur Leukocyte Esterase Urine RBC Urine WBC Ur Squamous Epith Cells Urine Bacteria Hyaline Casts Urine Osmolality Ur Random Sodium Urine Opiates Screen Ur Buprenorphine Scrn Ur Oxycodone Screen Urine Methadone Screen Urine Fentanyl Screen Ur Barbiturates Screen Carbamazepine Ur Phencyclidine Scrn Ur Amphetamines Screen U Benzodiazepines Scrn Urine Cocaine Screen U Marijuana (THC) Screen COVID-19 ([facility]) COVID-19 Clin Com Influenza Type A (AMANDA) Influenza Type B (AMANDA) Influenza A & B Note TB Test (T-Spot) Com TB Test Nil Control TB Test Panel A TB Test Panel B TB Test Positive Cntr 11/13/24 11/13/24 11/13/24 16:06 17:02 20:40 WBC RBC Hgb Hct MCV MCH MCHC RDW Plt Count MPV Immature Gran % (Auto) Neut % (Auto) Lymph % (Auto) [place] % (Auto) Eos % (Auto) Baso % (Auto) Lymph # (Auto) [place] # (Auto) Eos # (Auto) Baso # (Auto) Abs Immat Gran (auto) Absolute Neuts (auto) Absolute Nucleated RBC Nucleated RBC % (auto) Smear Tech's Comments Hold Purple Top VBG pH VBG pCO2 VBG pO2 VBG HCO3 VBG O2 Saturation VBG Base Excess Sodium Potassium Chloride Carbon Dioxide Anion Gap BUN Creatinine Estim Creat Clear Calc Estimated GFR POC Glucose 177 H 179 H Random Glucose Estimat Average Glucose Hemoglobin A1c % Osmolality Lactic Acid Calcium Magnesium Iron TIBC % Saturation Unsat Iron Binding Total Bilirubin AST ALT Alkaline Phosphatase Total Protein Albumin Triglycerides Cholesterol LDL Cholesterol, Calc HDL Cholesterol Lipase TSH Free T4 Urine Color Urine Appearance Urine pH Ur Specific [place] Urine Protein Urine Glucose (UA) Urine Ketones Urine Blood Urine Nitrite Ur Leukocyte Esterase Urine RBC Urine WBC Ur Squamous Epith Cells Urine Bacteria Hyaline Casts Urine Osmolality 485 Ur Random Sodium 41.0 Urine Opiates Screen Ur Buprenorphine Scrn Ur Oxycodone Screen Urine Methadone Screen Urine Fentanyl Screen Ur Barbiturates Screen Carbamazepine Ur Phencyclidine Scrn Ur Amphetamines Screen U Benzodiazepines Scrn Urine Cocaine Screen U Marijuana (THC) Screen COVID-19 ([facility]) COVID-19 Clin Com Influenza Type A (AMANDA) Influenza Type B (AMANDA) Influenza A & B Note TB Test (T-Spot) Com TB Test Nil Control TB Test Panel A TB Test Panel B TB Test Positive Cntr 11/14/24 11/14/24 11/14/24 06:25 07:19 11:34 WBC RBC Hgb Hct MCV MCH MCHC RDW Plt Count MPV Immature Gran % (Auto) Neut % (Auto) Lymph % (Auto) [place] % (Auto) Eos % (Auto) Baso % (Auto) Lymph # (Auto) [place] # (Auto) Eos # (Auto) Baso # (Auto) Abs Immat Gran (auto) Absolute Neuts (auto) Absolute Nucleated RBC Nucleated RBC % (auto) Smear Tech's Comments Hold Purple Top VBG pH VBG pCO2 VBG pO2 VBG HCO3 VBG O2 Saturation VBG Base Excess Sodium 132 L Potassium 5.0 Chloride 97 Carbon Dioxide 27 Anion Gap 13 BUN 26 H Creatinine 0.93 Estim Creat Clear Calc 36.1 Estimated GFR 59 POC Glucose 170 H 132 H Random Glucose 193 H Estimat Average Glucose Hemoglobin A1c % Osmolality Lactic Acid Calcium 9.5 Magnesium Iron TIBC % Saturation Unsat Iron Binding Total Bilirubin AST ALT Alkaline Phosphatase Total Protein Albumin Triglycerides Cholesterol LDL Cholesterol, Calc HDL Cholesterol Lipase TSH Free T4 Urine Color Urine Appearance Urine pH Ur Specific [place] Urine Protein Urine Glucose (UA) Urine Ketones Urine Blood Urine Nitrite Ur Leukocyte Esterase Urine RBC Urine WBC Ur Squamous Epith Cells Urine Bacteria Hyaline Casts Urine Osmolality Ur Random Sodium Urine Opiates Screen Ur Buprenorphine Scrn Ur Oxycodone Screen Urine Methadone Screen Urine Fentanyl Screen Ur Barbiturates Screen Carbamazepine Ur Phencyclidine Scrn Ur Amphetamines Screen U Benzodiazepines Scrn Urine Cocaine Screen U Marijuana (THC) Screen COVID-19 ([facility]) COVID-19 Clin Com Influenza Type A (AMANDA) Influenza Type B (AMANDA) Influenza A & B Note TB Test (T-Spot) Com TB Test Nil Control TB Test Panel A TB Test Panel B TB Test Positive Cntrl 11/14/24 11/14/24 11/15/24 15:59 20:36 06:24 WBC RBC Hgb Hct MCV MCH MCHC RDW Plt Count MPV Immature Gran % (Auto) Neut % (Auto) Lymph % (Auto) [place] % (Auto) Eos % (Auto) Baso % (Auto) Lymph # (Auto) [place] # (Auto) Eos # (Auto) Baso # (Auto) Abs Immat Gran (auto) Absolute Neuts (auto) Absolute Nucleated RBC Nucleated RBC % (auto) Smear Tech's Comments Hold Purple Top VBG pH VBG pCO2 VBG pO2 VBG HCO3 VBG O2 Saturation VBG Base Excess Sodium Potassium Chloride Carbon Dioxide Anion Gap BUN Creatinine Estim Creat Clear Calc Estimated GFR POC Glucose 199 H 98 199 H Random Glucose Estimat Average Glucose Hemoglobin A1c % Osmolality Lactic Acid Calcium Magnesium Iron TIBC % Saturation Unsat Iron Binding Total Bilirubin AST ALT Alkaline Phosphatase Total Protein Albumin Triglycerides Cholesterol LDL Cholesterol, Calc HDL Cholesterol Lipase TSH Free T4 Urine Color Urine Appearance Urine pH Ur Specific [place] Urine Protein Urine Glucose (UA) Urine Ketones Urine Blood Urine Nitrite Ur Leukocyte Esterase Urine RBC Urine WBC Ur Squamous Epith Cells Urine Bacteria Hyaline Casts Urine Osmolality Ur Random Sodium Urine Opiates Screen Ur Buprenorphine Scrn Ur Oxycodone Screen Urine Methadone Screen Urine Fentanyl Screen Ur Barbiturates Screen Carbamazepine Ur Phencyclidine Scrn Ur Amphetamines Screen U Benzodiazepines Scrn Urine Cocaine Screen U Marijuana (THC) Screen COVID-19 ([facility]) COVID-19 Clin Com Influenza Type A (AMANDA) Influenza Type B (AMANDA) Influenza A & B Note TB Test (T-Spot) Com TB Test Nil Control TB Test Panel A TB Test Panel B TB Test Positive Cntrl 11/15/24 11/15/24 11/15/24 11:35 16:20 20:49 WBC RBC Hgb Hct MCV MCH MCHC RDW Plt Count MPV Immature Gran % (Auto) Neut % (Auto) Lymph % (Auto) [place] % (Auto) Eos % (Auto) Baso % (Auto) Lymph # (Auto) [place] # (Auto) Eos # (Auto) Baso # (Auto) Abs Immat Gran (auto) Absolute Neuts (auto) Absolute Nucleated RBC Nucleated RBC % (auto) Smear Tech's Comments Hold Purple Top VBG pH VBG pCO2 VBG pO2 VBG HCO3 VBG O2 Saturation VBG Base Excess Sodium Potassium Chloride Carbon Dioxide Anion Gap BUN Creatinine Estim Creat Clear Calc Estimated GFR POC Glucose 155 H 143 H 138 H Random Glucose Estimat Average Glucose Hemoglobin A1c % Osmolality Lactic Acid Calcium Magnesium Iron TIBC % Saturation Unsat Iron Binding Total Bilirubin AST ALT Alkaline Phosphatase Total Protein Albumin Triglycerides Cholesterol LDL Cholesterol, Calc HDL Cholesterol Lipase TSH Free T4 Urine Color Urine Appearance Urine pH Ur Specific [place] Urine Protein Urine Glucose (UA) Urine Ketones Urine Blood Urine Nitrite Ur Leukocyte Esterase Urine RBC Urine WBC Ur Squamous Epith Cells Urine Bacteria Hyaline Casts Urine Osmolality Ur Random Sodium Urine Opiates Screen Ur Buprenorphine Scrn Ur Oxycodone Screen Urine Methadone Screen Urine Fentanyl Screen Ur Barbiturates Screen Carbamazepine Ur Phencyclidine Scrn Ur Amphetamines Screen U Benzodiazepines Scrn Urine Cocaine Screen U Marijuana (THC) Screen COVID-19 ([facility]ESA) COVID-19 Clin Com Influenza Type A (AMANDA) Influenza Type B (AMANDA) Influenza A & B Note TB Test (T-Spot) Com TB Test Nil Control TB Test Panel A TB Test Panel B TB Test Positive [facility] 11/16/24 11/16/24 11/16/24 06:35 11:24 13:55 WBC RBC Hgb Hct MCV MCH MCHC RDW Plt Count MPV Immature Gran % (Auto) Neut % (Auto) Lymph % (Auto) [place] % (Auto) Eos % (Auto) Baso % (Auto) Lymph # (Auto) [place] # (Auto) Eos # (Auto) Baso # (Auto) Abs Immat Gran (auto) Absolute Neuts (auto) Absolute Nucleated RBC Nucleated RBC % (auto) Smear Tech's Comments Hold Purple Top VBG pH VBG pCO2 VBG pO2 VBG HCO3 VBG O2 Saturation VBG Base Excess Sodium 134 L Potassium 4.7 Chloride 99 Carbon Dioxide 25 Anion Gap 15 BUN 21 H Creatinine 0.87 Estim Creat Clear Calc 38.7 Estimated GFR > 60 POC Glucose 192 H 152 H Random Glucose 58 L* Estimat Average Glucose Hemoglobin A1c % Osmolality Lactic Acid Calcium 9.6 Magnesium Iron TIBC % Saturation Unsat Iron Binding Total Bilirubin AST ALT Alkaline Phosphatase Total Protein Albumin Triglycerides Cholesterol LDL Cholesterol, Calc HDL Cholesterol Lipase TSH Free T4 Urine Color Urine Appearance Urine pH Ur Specific [place] Urine Protein Urine Glucose (UA) Urine Ketones Urine Blood Urine Nitrite Ur Leukocyte Esterase Urine RBC Urine WBC Ur Squamous Epith Cells Urine Bacteria Hyaline Casts Urine Osmolality Ur Random Sodium Urine Opiates Screen Ur Buprenorphine Scrn Ur Oxycodone Screen Urine Methadone Screen Urine Fentanyl Screen Ur Barbiturates Screen Carbamazepine Ur Phencyclidine Scrn Ur Amphetamines Screen U Benzodiazepines Scrn Urine Cocaine Screen U Marijuana (THC) Screen COVID-19 ([facility]ESA) COVID-19 Clin Com Influenza Type A (AMANDA) Influenza Type B (AMANDA) Influenza A & B Note TB Test (T-Spot) Com TB Test Nil Control TB Test Panel A TB Test Panel B TB Test Positive [facility] 11/16/24 11/16/24 11/16/24 14:34 16:22 20:02 WBC RBC Hgb Hct MCV MCH MCHC RDW Plt Count MPV Immature Gran % (Auto) Neut % (Auto) Lymph % (Auto) [place] % (Auto) Eos % (Auto) Baso % (Auto) Lymph # (Auto) [place] # (Auto) Eos # (Auto) Baso # (Auto) Abs Immat Gran (auto) Absolute Neuts (auto) Absolute Nucleated RBC Nucleated RBC % (auto) Smear Tech's Comments Hold Purple Top VBG pH VBG pCO2 VBG pO2 VBG HCO3 VBG O2 Saturation VBG Base Excess Sodium Potassium Chloride Carbon Dioxide Anion Gap BUN Creatinine Estim Creat Clear Calc Estimated GFR POC Glucose 69 126 H 141 H Random Glucose Estimat Average Glucose Hemoglobin A1c % Osmolality Lactic Acid Calcium Magnesium Iron TIBC % Saturation Unsat Iron Binding Total Bilirubin AST ALT Alkaline Phosphatase Total Protein Albumin Triglycerides Cholesterol LDL Cholesterol, Calc HDL Cholesterol Lipase TSH Free T4 Urine Color Urine Appearance Urine pH Ur Specific [place] Urine Protein Urine Glucose (UA) Urine Ketones Urine Blood Urine Nitrite Ur Leukocyte Esterase Urine RBC Urine WBC Ur Squamous Epith Cells Urine Bacteria Hyaline Casts Urine Osmolality Ur Random Sodium Urine Opiates Screen Ur Buprenorphine Scrn Ur Oxycodone Screen Urine Methadone Screen Urine Fentanyl Screen Ur Barbiturates Screen Carbamazepine Ur Phencyclidine Scrn Ur Amphetamines Screen U Benzodiazepines Scrn Urine Cocaine Screen U Marijuana (THC) Screen COVID-19 ([facility]ESA) COVID-19 Clin Com Influenza Type A (AMANDA) Influenza Type B (AMANDA) Influenza A & B Note TB Test (T-Spot) Com TB Test Nil Control TB Test Panel A TB Test Panel B TB Test Positive Cntrl 11/17/24 11/17/24 11/17/24 06:32 11:12 14:40 WBC RBC Hgb Hct MCV MCH MCHC RDW Plt Count MPV Immature Gran % (Auto) Neut % (Auto) Lymph % (Auto) [place] % (Auto) Eos % (Auto) Baso % (Auto) Lymph # (Auto) [place] # (Auto) Eos # (Auto) Baso # (Auto) Abs Immat Gran (auto) Absolute Neuts (auto) Absolute Nucleated RBC Nucleated RBC % (auto) Smear Tech's Comments Hold Purple Top VBG pH VBG pCO2 VBG pO2 VBG HCO3 VBG O2 Saturation VBG Base Excess Sodium Potassium Chloride Carbon Dioxide Anion Gap BUN Creatinine Estim Creat Clear Calc Estimated GFR POC Glucose 177 H 184 H 149 H Random Glucose Estimat Average Glucose Hemoglobin A1c % Osmolality Lactic Acid Calcium Magnesium Iron TIBC % Saturation Unsat Iron Binding Total Bilirubin AST ALT Alkaline Phosphatase Total Protein Albumin Triglycerides Cholesterol LDL Cholesterol, Calc HDL Cholesterol Lipase TSH Free T4 Urine Color Urine Appearance Urine pH Ur Specific [place] Urine Protein Urine Glucose (UA) Urine Ketones Urine Blood Urine Nitrite Ur Leukocyte Esterase Urine RBC Urine WBC Ur Squamous Epith Cells Urine Bacteria Hyaline Casts Urine Osmolality Ur Random Sodium Urine Opiates Screen Ur Buprenorphine Scrn Ur Oxycodone Screen Urine Methadone Screen Urine Fentanyl Screen Ur Barbiturates Screen Carbamazepine Ur Phencyclidine Scrn Ur Amphetamines Screen U Benzodiazepines Scrn Urine Cocaine Screen U Marijuana (THC) Screen COVID-19 ([facility]ESA) COVID-19 Clin Com Influenza Type A (AMANDA) Influenza Type B (AMANDA) Influenza A & B Note TB Test (T-Spot) Com TB Test Nil Control TB Test Panel A TB Test Panel B TB Test Positive Cntrl 11/17/24 11/18/24 11/18/24 16:18 06:08 11:15 WBC RBC Hgb Hct MCV MCH MCHC RDW Plt Count MPV Immature Gran % (Auto) Neut % (Auto) Lymph % (Auto) [place] % (Auto) Eos % (Auto) Baso % (Auto) Lymph # (Auto) [place] # (Auto) Eos # (Auto) Baso # (Auto) Abs Immat Gran (auto) Absolute Neuts (auto) Absolute Nucleated RBC Nucleated RBC % (auto) Smear Tech's Comments Hold Purple Top VBG pH VBG pCO2 VBG pO2 VBG HCO3 VBG O2 Saturation VBG Base Excess Sodium Potassium Chloride Carbon Dioxide Anion Gap BUN Creatinine Estim Creat Clear Calc Estimated GFR POC Glucose 119 H 192 H 127 H Random Glucose Estimat Average Glucose Hemoglobin A1c % Osmolality Lactic Acid Calcium Magnesium Iron TIBC % Saturation Unsat Iron Binding Total Bilirubin AST ALT Alkaline Phosphatase Total Protein Albumin Triglycerides Cholesterol LDL Cholesterol, Calc HDL Cholesterol Lipase TSH Free T4 Urine Color Urine Appearance Urine pH Ur Specific [place] Urine Protein Urine Glucose (UA) Urine Ketones Urine Blood Urine Nitrite Ur Leukocyte Esterase Urine RBC Urine WBC Ur Squamous Epith Cells Urine Bacteria Hyaline Casts Urine Osmolality Ur Random Sodium Urine Opiates Screen Ur Buprenorphine Scrn Ur Oxycodone Screen Urine Methadone Screen Urine Fentanyl Screen Ur Barbiturates Screen Carbamazepine Ur Phencyclidine Scrn Ur Amphetamines Screen U Benzodiazepines Scrn Urine Cocaine Screen U Marijuana (THC) Screen COVID-19 ([facility]) COVID-19 Clin Com Influenza Type A (AMANDA) Influenza Type B (AMANDA) Influenza A & B Note TB Test (T-Spot) Com TB Test Nil Control TB Test Panel A TB Test Panel B TB Test Positive Cntr 11/18/24 11/18/24 11/18/24 13:33 16:18 21:19 WBC RBC Hgb Hct MCV MCH MCHC RDW Plt Count MPV Immature Gran % (Auto) Neut % (Auto) Lymph % (Auto) [place] % (Auto) Eos % (Auto) Baso % (Auto) Lymph # (Auto) [place] # (Auto) Eos # (Auto) Baso # (Auto) Abs Immat Gran (auto) Absolute Neuts (auto) Absolute Nucleated RBC Nucleated RBC % (auto) Smear Tech's Comments Hold Purple Top VBG pH VBG pCO2 VBG pO2 VBG HCO3 VBG O2 Saturation VBG Base Excess Sodium 137 Potassium 4.9 Chloride 105 Carbon Dioxide 25 Anion Gap 12 BUN 27 H Creatinine 1.03 Estim Creat Clear Calc 32.6 Estimated GFR 52 POC Glucose 110 154 H Random Glucose 81 Estimat Average Glucose Hemoglobin A1c % Osmolality Lactic Acid Calcium 9.1 Magnesium Iron TIBC % Saturation Unsat Iron Binding Total Bilirubin 0.3 AST 18 ALT 26 Alkaline Phosphatase 67 Total Protein 7.1 Albumin 4.4 Triglycerides Cholesterol LDL Cholesterol, Calc HDL Cholesterol Lipase TSH Free T4 Urine Color Urine Appearance Urine pH Ur Specific [place] Urine Protein Urine Glucose (UA) Urine Ketones Urine Blood Urine Nitrite Ur Leukocyte Esterase Urine RBC Urine WBC Ur Squamous Epith Cells Urine Bacteria Hyaline Casts Urine Osmolality Ur Random Sodium Urine Opiates Screen Ur Buprenorphine Scrn Ur Oxycodone Screen Urine Methadone Screen Urine Fentanyl Screen Ur Barbiturates Screen Carbamazepine Ur Phencyclidine Scrn Ur Amphetamines Screen U Benzodiazepines Scrn Urine Cocaine Screen U Marijuana (THC) Screen COVID-19 ([facility]ES[facility]) COVID-19 Clin Com Influenza Type A (AMANDA) Influenza Type B (AMANDA) Influenza A & B Note TB Test (T-Spot) Com TB Test Nil Control TB Test Panel A TB Test Panel B TB Test Positive [facility] 11/19/24 11/19/24 11/19/24 06:30 11:23 15:59 WBC RBC Hgb Hct MCV MCH MCHC RDW Plt Count MPV Immature Gran % (Auto) Neut % (Auto) Lymph % (Auto) [place] % (Auto) Eos % (Auto) Baso % (Auto) Lymph # (Auto) [place] # (Auto) Eos # (Auto) Baso # (Auto) Abs Immat Gran (auto) Absolute Neuts (auto) Absolute Nucleated RBC Nucleated RBC % (auto) Smear Tech's Comments Hold Purple Top VBG pH VBG pCO2 VBG pO2 VBG HCO3 VBG O2 Saturation VBG Base Excess Sodium Potassium Chloride Carbon Dioxide Anion Gap BUN Creatinine Estim Creat Clear Calc Estimated GFR POC Glucose 178 H 157 H 110 Random Glucose Estimat Average Glucose Hemoglobin A1c % Osmolality Lactic Acid Calcium Magnesium Iron TIBC % Saturation Unsat Iron Binding Total Bilirubin AST ALT Alkaline Phosphatase Total Protein Albumin Triglycerides Cholesterol LDL Cholesterol, Calc HDL Cholesterol Lipase TSH Free T4 Urine Color Urine Appearance Urine pH Ur Specific [place] Urine Protein Urine Glucose (UA) Urine Ketones Urine Blood Urine Nitrite Ur Leukocyte Esterase Urine RBC Urine WBC Ur Squamous Epith Cells Urine Bacteria Hyaline Casts Urine Osmolality Ur Random Sodium Urine Opiates Screen Ur Buprenorphine Scrn Ur Oxycodone Screen Urine Methadone Screen Urine Fentanyl Screen Ur Barbiturates Screen Carbamazepine Ur Phencyclidine Scrn Ur Amphetamines Screen U Benzodiazepines Scrn Urine Cocaine Screen U Marijuana (THC) Screen COVID-19 (TRESA) COVID-19 Clin Com Influenza Type A (AMANDA) Influenza Type B (AMANDA) Influenza A & B Note TB Test (T-Spot) Com TB Test Nil Control TB Test Panel A TB Test Panel B TB Test Positive Cntrl 11/19/24 11/20/24 11/20/24 19:50 06:36 11:02 WBC RBC Hgb Hct MCV MCH MCHC RDW Plt Count MPV Immature Gran % (Auto) Neut % (Auto) Lymph % (Auto) [place] % (Auto) Eos % (Auto) Baso % (Auto) Lymph # (Auto) [place] # (Auto) Eos # (Auto) Baso # (Auto) Abs Immat Gran (auto) Absolute Neuts (auto) Absolute Nucleated RBC Nucleated RBC % (auto) Smear Tech's Comments Hold Purple Top VBG pH VBG pCO2 VBG pO2 VBG HCO3 VBG O2 Saturation VBG Base Excess Sodium 137 Potassium 4.7 Chloride 102 Carbon Dioxide 27 Anion Gap 13 BUN 23 H Creatinine 0.99 Estim Creat Clear Calc 34.0 Estimated GFR 55 POC Glucose 205 H 165 H Random Glucose 129 H Estimat Average Glucose 154 Hemoglobin A1c % 7.0 H Osmolality Lactic Acid Calcium 9.5 Magnesium Iron TIBC % Saturation Unsat Iron Binding Total Bilirubin AST ALT Alkaline Phosphatase Total Protein Albumin Triglycerides Cholesterol LDL Cholesterol, Calc HDL Cholesterol Lipase TSH Free T4 Urine Color Urine Appearance Urine pH Ur Specific [place] Urine Protein Urine Glucose (UA) Urine Ketones Urine Blood Urine Nitrite Ur Leukocyte Esterase Urine RBC Urine WBC Ur Squamous Epith Cells Urine Bacteria Hyaline Casts Urine Osmolality Ur Random Sodium Urine Opiates Screen Ur Buprenorphine Scrn Ur Oxycodone Screen Urine Methadone Screen Urine Fentanyl Screen Ur Barbiturates Screen Carbamazepine Ur Phencyclidine Scrn Ur Amphetamines Screen U Benzodiazepines Scrn Urine Cocaine Screen U Marijuana (THC) Screen COVID-19 ([facility]ESA) COVID-19 Clin Com Influenza Type A (AMANDA) Influenza Type B (AMANDA) Influenza A & B Note TB Test (T-Spot) Com TB Test Nil Control TB Test Panel A TB Test Panel B TB Test Positive Cntr 11/20/24 11/20/24 11/20/24 11:33 16:23 20:46 WBC RBC Hgb Hct MCV MCH MCHC RDW Plt Count MPV Immature Gran % (Auto) Neut % (Auto) Lymph % (Auto) [place] % (Auto) Eos % (Auto) Baso % (Auto) Lymph # (Auto) [place] # (Auto) Eos # (Auto) Baso # (Auto) Abs Immat Gran (auto) Absolute Neuts (auto) Absolute Nucleated RBC Nucleated RBC % (auto) Smear Tech's Comments Hold Purple Top VBG pH VBG pCO2 VBG pO2 VBG HCO3 VBG O2 Saturation VBG Base Excess Sodium Potassium Chloride Carbon Dioxide Anion Gap BUN Creatinine Estim Creat Clear Calc Estimated GFR POC Glucose 106 202 H 162 H Random Glucose Estimat Average Glucose Hemoglobin A1c % Osmolality Lactic Acid Calcium Magnesium Iron TIBC % Saturation Unsat Iron Binding Total Bilirubin AST ALT Alkaline Phosphatase Total Protein Albumin Triglycerides Cholesterol LDL Cholesterol, Calc HDL Cholesterol Lipase TSH Free T4 Urine Color Urine Appearance Urine pH Ur Specific [place] Urine Protein Urine Glucose (UA) Urine Ketones Urine Blood Urine Nitrite Ur Leukocyte Esterase Urine RBC Urine WBC Ur Squamous Epith Cells Urine Bacteria Hyaline Casts Urine Osmolality Ur Random Sodium Urine Opiates Screen Ur Buprenorphine Scrn Ur Oxycodone Screen Urine Methadone Screen Urine Fentanyl Screen Ur Barbiturates Screen Carbamazepine Ur Phencyclidine Scrn Ur Amphetamines Screen U Benzodiazepines Scrn Urine Cocaine Screen U Marijuana (THC) Screen COVID-19 ([facility]ESA) COVID-19 Clin Com Influenza Type A (AMANDA) Influenza Type B (AMANDA) Influenza A & B Note TB Test (T-Spot) Com TB Test Nil Control TB Test Panel A TB Test Panel B TB Test Positive Cnt 11/21/24 11/21/2411/21/25 06:31 11:24 16:25 WBC RBC Hgb Hct MCV MCH MCHC RDW Plt Count MPV Immature Gran % (Auto) Neut % (Auto) Lymph % (Auto) [place] % (Auto) Eos % (Auto) Baso % (Auto) Lymph # (Auto) [place] # (Auto) Eos # (Auto) Baso # (Auto) Abs Immat Gran (auto) Absolute Neuts (auto) Absolute Nucleated RBC Nucleated RBC % (auto) Smear Tech's Comments Hold Purple Top VBG pH VBG pCO2 VBG pO2 VBG HCO3 VBG O2 Saturation VBG Base Excess Sodium Potassium Chloride Carbon Dioxide Anion Gap BUN Creatinine Estim Creat Clear Calc Estimated GFR POC Glucose 189 H 196 H 110 Random Glucose Estimat Average Glucose Hemoglobin A1c % Osmolality Lactic Acid Calcium Magnesium Iron TIBC % Saturation Unsat Iron Binding Total Bilirubin AST ALT Alkaline Phosphatase Total Protein Albumin Triglycerides Cholesterol LDL Cholesterol, Calc HDL Cholesterol Lipase TSH Free T4 Urine Color Urine Appearance Urine pH Ur Specific [place] Urine Protein Urine Glucose (UA) Urine Ketones Urine Blood Urine Nitrite Ur Leukocyte Esterase Urine RBC Urine WBC Ur Squamous Epith Cells Urine Bacteria Hyaline Casts Urine Osmolality Ur Random Sodium Urine Opiates Screen Ur Buprenorphine Scrn Ur Oxycodone Screen Urine Methadone Screen Urine Fentanyl Screen Ur Barbiturates Screen Carbamazepine Ur Phencyclidine Scrn Ur Amphetamines Screen U Benzodiazepines Scrn Urine Cocaine Screen U Marijuana (THC) Screen COVID-19 (TRESA) COVID-19 Clin Com Influenza Type A (AMANDA) Influenza Type B (AMANDA) Influenza A & B Note TB Test (T-Spot) Com TB Test Nil Control TB Test Panel A TB Test Panel B TB Test Positive [facility] 11/21/24 11/22/24 11/22/24 21:16 06:56 11:14 WBC RBC Hgb Hct MCV MCH MCHC RDW Plt Count MPV Immature Gran % (Auto) Neut % (Auto) Lymph % (Auto) [place] % (Auto) Eos % (Auto) Baso % (Auto) Lymph # (Auto) [place] # (Auto) Eos # (Auto) Baso # (Auto) Abs Immat Gran (auto) Absolute Neuts (auto) Absolute Nucleated RBC Nucleated RBC % (auto) Smear Tech's Comments Hold Purple Top VBG pH VBG pCO2 VBG pO2 VBG HCO3 VBG O2 Saturation VBG Base Excess Sodium Potassium Chloride Carbon Dioxide Anion Gap BUN Creatinine Estim Creat Clear Calc Estimated GFR POC Glucose 138 H 195 H 224 H Random Glucose Estimat Average Glucose Hemoglobin A1c % Osmolality Lactic Acid Calcium Magnesium Iron TIBC % Saturation Unsat Iron Binding Total Bilirubin AST ALT Alkaline Phosphatase Total Protein Albumin Triglycerides Cholesterol LDL Cholesterol, Calc HDL Cholesterol Lipase TSH Free T4 Urine Color Urine Appearance Urine pH Ur Specific [place] Urine Protein Urine Glucose (UA) Urine Ketones Urine Blood Urine Nitrite Ur Leukocyte Esterase Urine RBC Urine WBC Ur Squamous Epith Cells Urine Bacteria Hyaline Casts Urine Osmolality Ur Random Sodium Urine Opiates Screen Ur Buprenorphine Scrn Ur Oxycodone Screen Urine Methadone Screen Urine Fentanyl Screen Ur Barbiturates Screen Carbamazepine Ur Phencyclidine Scrn Ur Amphetamines Screen U Benzodiazepines Scrn Urine Cocaine Screen U Marijuana (THC) Screen COVID-19 ([facility]ESA) COVID-19 Clin Com Influenza Type A (AMANDA) Influenza Type B (AMANDA) Influenza A & B Note TB Test (T-Spot) Com TB Test Nil Control TB Test Panel A TB Test Panel B TB Test Positive Cntrl 11/22/24 11/22/24 11/23/24 16:28 21:06 06:14 WBC RBC Hgb Hct MCV MCH MCHC RDW Plt Count MPV Immature Gran % (Auto) Neut % (Auto) Lymph % (Auto) [place] % (Auto) Eos % (Auto) Baso % (Auto) Lymph # (Auto) [place] # (Auto) Eos # (Auto) Baso # (Auto) Abs Immat Gran (auto) Absolute Neuts (auto) Absolute Nucleated RBC Nucleated RBC % (auto) Smear Tech's Comments Hold Purple Top VBG pH VBG pCO2 VBG pO2 VBG HCO3 VBG O2 Saturation VBG Base Excess Sodium Potassium Chloride Carbon Dioxide Anion Gap BUN Creatinine Estim Creat Clear Calc Estimated GFR POC Glucose 129 H 94 191 H Random Glucose Estimat Average Glucose Hemoglobin A1c % Osmolality Lactic Acid Calcium Magnesium Iron TIBC % Saturation Unsat Iron Binding Total Bilirubin AST ALT Alkaline Phosphatase Total Protein Albumin Triglycerides Cholesterol LDL Cholesterol, Calc HDL Cholesterol Lipase TSH Free T4 Urine Color Urine Appearance Urine pH Ur Specific [place] Urine Protein Urine Glucose (UA) Urine Ketones Urine Blood Urine Nitrite Ur Leukocyte Esterase Urine RBC Urine WBC Ur Squamous Epith Cells Urine Bacteria Hyaline Casts Urine Osmolality Ur Random Sodium Urine Opiates Screen Ur Buprenorphine Scrn Ur Oxycodone Screen Urine Methadone Screen Urine Fentanyl Screen Ur Barbiturates Screen Carbamazepine Ur Phencyclidine Scrn Ur Amphetamines Screen U Benzodiazepines Scrn Urine Cocaine Screen U Marijuana (THC) Screen COVID-19 ([facility]ESA) COVID-19 Clin Com Influenza Type A (AMANDA) Influenza Type B (AMANDA) Influenza A & B Note TB Test (T-Spot) Com TB Test Nil Control TB Test Panel A TB Test Panel B TB Test Positive [facility] 11/23/24 11/24/24 11/25/24 11:22 06:16 06:42 WBC RBC Hgb Hct MCV MCH MCHC RDW Plt Count MPV Immature Gran % (Auto) Neut % (Auto) Lymph % (Auto) [place] % (Auto) Eos % (Auto) Baso % (Auto) Lymph # (Auto) [place] # (Auto) Eos # (Auto) Baso # (Auto) Abs Immat Gran (auto) Absolute Neuts (auto) Absolute Nucleated RBC Nucleated RBC % (auto) Smear Tech's Comments Hold Purple Top VBG pH VBG pCO2 VBG pO2 VBG HCO3 VBG O2 Saturation VBG Base Excess Sodium Potassium Chloride Carbon Dioxide Anion Gap BUN Creatinine Estim Creat Clear Calc Estimated GFR POC Glucose 188 H 184 H 167 H Random Glucose Estimat Average Glucose Hemoglobin A1c % Osmolality Lactic Acid Calcium Magnesium Iron TIBC % Saturation Unsat Iron Binding Total Bilirubin AST ALT Alkaline Phosphatase Total Protein Albumin Triglycerides Cholesterol LDL Cholesterol, Calc HDL Cholesterol Lipase TSH Free T4 Urine Color Urine Appearance Urine pH Ur Specific [place] Urine Protein Urine Glucose (UA) Urine Ketones Urine Blood Urine Nitrite Ur Leukocyte Esterase Urine RBC Urine WBC Ur Squamous Epith Cells Urine Bacteria Hyaline Casts Urine Osmolality Ur Random Sodium Urine Opiates Screen Ur Buprenorphine Scrn Ur Oxycodone Screen Urine Methadone Screen Urine Fentanyl Screen Ur Barbiturates Screen Carbamazepine Ur Phencyclidine Scrn Ur Amphetamines Screen U Benzodiazepines Scrn Urine Cocaine Screen U Marijuana (THC) Screen COVID-19 ([facility]ESA) COVID-19 Clin Com Influenza Type A (AMANDA) Influenza Type B (AMANDA) Influenza A & B Note TB Test (T-Spot) Com TB Test Nil Control TB Test Panel A TB Test Panel B TB Test Positive [facility] 11/26/24 11/27/24 11/28/24 06:23 06:32 06:13 WBC RBC Hgb Hct MCV MCH MCHC RDW Plt Count MPV Immature Gran % (Auto) Neut % (Auto) Lymph % (Auto) [place] % (Auto) Eos % (Auto) Baso % (Auto) Lymph # (Auto) [place] # (Auto) Eos # (Auto) Baso # (Auto) Abs Immat Gran (auto) Absolute Neuts (auto) Absolute Nucleated RBC Nucleated RBC % (auto) Smear Tech's Comments Hold Purple Top VBG pH VBG pCO2 VBG pO2 VBG HCO3 VBG O2 Saturation VBG Base Excess Sodium Potassium Chloride Carbon Dioxide Anion Gap BUN Creatinine Estim Creat Clear Calc Estimated GFR POC Glucose 166 H 167 H 159 H Random Glucose Estimat Average Glucose Hemoglobin A1c % Osmolality Lactic Acid Calcium Magnesium Iron TIBC % Saturation Unsat Iron Binding Total Bilirubin AST ALT Alkaline Phosphatase Total Protein Albumin Triglycerides Cholesterol LDL Cholesterol, Calc HDL Cholesterol Lipase TSH Free T4 Urine Color Urine Appearance Urine pH Ur Specific [place] Urine Protein Urine Glucose (UA) Urine Ketones Urine Blood Urine Nitrite Ur Leukocyte Esterase Urine RBC Urine WBC Ur Squamous Epith Cells Urine Bacteria Hyaline Casts Urine Osmolality Ur Random Sodium Urine Opiates Screen Ur Buprenorphine Scrn Ur Oxycodone Screen Urine Methadone Screen Urine Fentanyl Screen Ur Barbiturates Screen Carbamazepine Ur Phencyclidine Scrn Ur Amphetamines Screen U Benzodiazepines Scrn Urine Cocaine Screen U Marijuana (THC) Screen COVID-19 (TRESA) COVID-19 Clin Com Influenza Type A (AMANDA) Influenza Type B (AMANDA) Influenza A & B Note TB Test (T-Spot) Com TB Test Nil Control TB Test Panel A TB Test Panel B TB Test Positive [facility] 11/29/24 11/30/24 12/01/24 06:16 06:16 06:37 WBC RBC Hgb Hct MCV MCH MCHC RDW Plt Count MPV Immature Gran % (Auto) Neut % (Auto) Lymph % (Auto) [place] % (Auto) Eos % (Auto) Baso % (Auto) Lymph # (Auto) [place] # (Auto) Eos # (Auto) Baso # (Auto) Abs Immat Gran (auto) Absolute Neuts (auto) Absolute Nucleated RBC Nucleated RBC % (auto) Smear Tech's Comments Hold Purple Top VBG pH VBG pCO2 VBG pO2 VBG HCO3 VBG O2 Saturation VBG Base Excess Sodium Potassium Chloride Carbon Dioxide Anion Gap BUN Creatinine Estim Creat Clear Calc Estimated GFR POC Glucose 156 H 136 H 129 H Random Glucose Estimat Average Glucose Hemoglobin A1c % Osmolality Lactic Acid Calcium Magnesium Iron TIBC % Saturation Unsat Iron Binding Total Bilirubin AST ALT Alkaline Phosphatase Total Protein Albumin Triglycerides Cholesterol LDL Cholesterol, Calc HDL Cholesterol Lipase TSH Free T4 Urine Color Urine Appearance Urine pH Ur Specific [place] Urine Protein Urine Glucose (UA) Urine Ketones Urine Blood Urine Nitrite Ur Leukocyte Esterase Urine RBC Urine WBC Ur Squamous Epith Cells Urine Bacteria Hyaline Casts Urine Osmolality Ur Random Sodium Urine Opiates Screen Ur Buprenorphine Scrn Ur Oxycodone Screen Urine Methadone Screen Urine Fentanyl Screen Ur Barbiturates Screen Carbamazepine Ur Phencyclidine Scrn Ur Amphetamines Screen U Benzodiazepines Scrn Urine Cocaine Screen U Marijuana (THC) Screen COVID-19 ([facility]ESA) COVID-19 Clin Com Influenza Type A (AMANDA) Influenza Type B (AMANDA) Influenza A & B Note TB Test (T-Spot) Com TB Test Nil Control TB Test Panel A TB Test Panel B TB Test Positive Cntrl 12/02/24 12/03/24 12/03/24 06:24 06:17 16:25 WBC RBC Hgb Hct MCV MCH MCHC RDW Plt Count MPV Immature Gran % (Auto) Neut % (Auto) Lymph % (Auto) [place] % (Auto) Eos % (Auto) Baso % (Auto) Lymph # (Auto) [place] # (Auto) Eos # (Auto) Baso # (Auto) Abs Immat Gran (auto) Absolute Neuts (auto) Absolute Nucleated RBC Nucleated RBC % (auto) Smear Tech's Comments Hold Purple Top VBG pH VBG pCO2 VBG pO2 VBG HCO3 VBG O2 Saturation VBG Base Excess Sodium Potassium Chloride Carbon Dioxide Anion Gap BUN Creatinine Estim Creat Clear Calc Estimated GFR POC Glucose 163 H 182 H 120 H Random Glucose Estimat Average Glucose Hemoglobin A1c % Osmolality Lactic Acid Calcium Magnesium Iron TIBC % Saturation Unsat Iron Binding Total Bilirubin AST ALT Alkaline Phosphatase Total Protein Albumin Triglycerides Cholesterol LDL Cholesterol, Calc HDL Cholesterol Lipase TSH Free T4 Urine Color Urine Appearance Urine pH Ur Specific [place] Urine Protein Urine Glucose (UA) Urine Ketones Urine Blood Urine Nitrite Ur Leukocyte Esterase Urine RBC Urine WBC Ur Squamous Epith Cells Urine Bacteria Hyaline Casts Urine Osmolality Ur Random Sodium Urine Opiates Screen Ur Buprenorphine Scrn Ur Oxycodone Screen Urine Methadone Screen Urine Fentanyl Screen Ur Barbiturates Screen Carbamazepine Ur Phencyclidine Scrn Ur Amphetamines Screen U Benzodiazepines Scrn Urine Cocaine Screen U Marijuana (THC) Screen COVID-19 (TRESA) COVID-19 Clin Com Influenza Type A (AMANDA) Influenza Type B (AMANDA) Influenza A & B Note TB Test (T-Spot) Com TB Test Nil Control TB Test Panel A TB Test Panel B TB Test Positive [facility] 12/04/24 12/05/24 12/06/24 05:52 06:00 05:54 WBC RBC Hgb Hct MCV MCH MCHC RDW Plt Count MPV Immature Gran % (Auto) Neut % (Auto) Lymph % (Auto) [place] % (Auto) Eos % (Auto) Baso % (Auto) Lymph # (Auto) [place] # (Auto) Eos # (Auto) Baso # (Auto) Abs Immat Gran (auto) Absolute Neuts (auto) Absolute Nucleated RBC Nucleated RBC % (auto) Smear Tech's Comments Hold Purple Top VBG pH VBG pCO2 VBG pO2 VBG HCO3 VBG O2 Saturation VBG Base Excess Sodium Potassium Chloride Carbon Dioxide Anion Gap BUN Creatinine Estim Creat Clear Calc Estimated GFR POC Glucose 161 H 185 H 206 H Random Glucose Estimat Average Glucose Hemoglobin A1c % Osmolality Lactic Acid Calcium Magnesium Iron TIBC % Saturation Unsat Iron Binding Total Bilirubin AST ALT Alkaline Phosphatase Total Protein Albumin Triglycerides Cholesterol LDL Cholesterol, Calc HDL Cholesterol Lipase TSH Free T4 Urine Color Urine Appearance Urine pH Ur Specific [place] Urine Protein Urine Glucose (UA) Urine Ketones Urine Blood Urine Nitrite Ur Leukocyte Esterase Urine RBC Urine WBC Ur Squamous Epith Cells Urine Bacteria Hyaline Casts Urine Osmolality Ur Random Sodium Urine Opiates Screen Ur Buprenorphine Scrn Ur Oxycodone Screen Urine Methadone Screen Urine Fentanyl Screen Ur Barbiturates Screen Carbamazepine Ur Phencyclidine Scrn Ur Amphetamines Screen U Benzodiazepines Scrn Urine Cocaine Screen U Marijuana (THC) Screen COVID-19 (TRESA) COVID-19 Clin Com Influenza Type A (AMANDA) Influenza Type B (AMANDA) Influenza A & B Note TB Test (T-Spot) Com TB Test Nil Control TB Test Panel A TB Test Panel B TB Test Positive [facility] 12/07/24 12/08/24 12/09/24 06:19 06:31 06:26 WBC RBC Hgb Hct MCV MCH MCHC RDW Plt Count MPV Immature Gran % (Auto) Neut % (Auto) Lymph % (Auto) [place] % (Auto) Eos % (Auto) Baso % (Auto) Lymph # (Auto) [place] # (Auto) Eos # (Auto) Baso # (Auto) Abs Immat Gran (auto) Absolute Neuts (auto) Absolute Nucleated RBC Nucleated RBC % (auto) Smear Tech's Comments Hold Purple Top VBG pH VBG pCO2 VBG pO2 VBG HCO3 VBG O2 Saturation VBG Base Excess Sodium Potassium Chloride Carbon Dioxide Anion Gap BUN Creatinine Estim Creat Clear Calc Estimated GFR POC Glucose 194 H 163 H 165 H Random Glucose Estimat Average Glucose Hemoglobin A1c % Osmolality Lactic Acid Calcium Magnesium Iron TIBC % Saturation Unsat Iron Binding Total Bilirubin AST ALT Alkaline Phosphatase Total Protein Albumin Triglycerides Cholesterol LDL Cholesterol, Calc HDL Cholesterol Lipase TSH Free T4 Urine Color Urine Appearance Urine pH Ur Specific [place] Urine Protein Urine Glucose (UA) Urine Ketones Urine Blood Urine Nitrite Ur Leukocyte Esterase Urine RBC Urine WBC Ur Squamous Epith Cells Urine Bacteria Hyaline Casts Urine Osmolality Ur Random Sodium Urine Opiates Screen Ur Buprenorphine Scrn Ur Oxycodone Screen Urine Methadone Screen Urine Fentanyl Screen Ur Barbiturates Screen Carbamazepine Ur Phencyclidine Scrn Ur Amphetamines Screen U Benzodiazepines Scrn Urine Cocaine Screen U Marijuana (THC) Screen COVID-19 (TRESA) COVID-19 Clin Com Influenza Type A (AMANDA) Influenza Type B (AMANDA) Influenza A & B Note TB Test (T-Spot) Com TB Test Nil Control TB Test Panel A TB Test Panel B TB Test Positive [facility] 12/09/24 12/10/24 12/11/24 12:31 06:09 06:15 WBC RBC Hgb Hct MCV MCH MCHC RDW Plt Count MPV Immature Gran % (Auto) Neut % (Auto) Lymph % (Auto) [place] % (Auto) Eos % (Auto) Baso % (Auto) Lymph # (Auto) [place] # (Auto) Eos # (Auto) Baso # (Auto) Abs Immat Gran (auto) Absolute Neuts (auto) Absolute Nucleated RBC Nucleated RBC % (auto) Smear Tech's Comments Hold Purple Top VBG pH VBG pCO2 VBG pO2 VBG HCO3 VBG O2 Saturation VBG Base Excess Sodium Potassium Chloride Carbon Dioxide Anion Gap BUN Creatinine Estim Creat Clear Calc Estimated GFR POC Glucose 167 H 159 H Random Glucose Estimat Average Glucose Hemoglobin A1c % Osmolality Lactic Acid Calcium Magnesium Iron TIBC % Saturation Unsat Iron Binding Total Bilirubin AST ALT Alkaline Phosphatase Total Protein Albumin Triglycerides Cholesterol LDL Cholesterol, Calc HDL Cholesterol Lipase TSH Free T4 Urine Color Urine Appearance Urine pH Ur Specific [place] Urine Protein Urine Glucose (UA) Urine Ketones Urine Blood Urine Nitrite Ur Leukocyte Esterase Urine RBC Urine WBC Ur Squamous Epith Cells Urine Bacteria Hyaline Casts Urine Osmolality Ur Random Sodium Urine Opiates Screen Ur Buprenorphine Scrn Ur Oxycodone Screen Urine Methadone Screen Urine Fentanyl Screen Ur Barbiturates Screen Carbamazepine Ur Phencyclidine Scrn Ur Amphetamines Screen U Benzodiazepines Scrn Urine Cocaine Screen U Marijuana (THC) Screen COVID-19 ([facility]) COVID-19 Clin Com Influenza Type A (AMANDA) Influenza Type B (AMANDA) Influenza A & B Note TB Test (T-Spot) Com Negative TB Test Nil Control Passed TB Test Panel A 1 TB Test Panel B 0 TB Test Positive Cntrl Passed 12/12/24 12/13/24 12/13/24 06:24 06:14 12:13 WBC RBC Hgb Hct MCV MCH MCHC RDW Plt Count MPV Immature Gran % (Auto) Neut % (Auto) Lymph % (Auto) [place] % (Auto) Eos % (Auto) Baso % (Auto) Lymph # (Auto) [place] # (Auto) Eos # (Auto) Baso # (Auto) Abs Immat Gran (auto) Absolute Neuts (auto) Absolute Nucleated RBC Nucleated RBC % (auto) Smear Tech's Comments Hold Purple Top VBG pH VBG pCO2 VBG pO2 VBG HCO3 VBG O2 Saturation VBG Base Excess Sodium 135 Potassium 4.4 Chloride 103 Carbon Dioxide 20 L Anion Gap 16 BUN 32 H Creatinine 1.39 Estim Creat Clear Calc 24.1 Estimated GFR 37 POC Glucose 148 H 151 H Random Glucose 351 H* Estimat Average Glucose Hemoglobin A1c % Osmolality Lactic Acid Calcium 9.3 Magnesium Iron TIBC % Saturation Unsat Iron Binding Total Bilirubin AST ALT Alkaline Phosphatase Total Protein Albumin Triglycerides Cholesterol LDL Cholesterol, Calc HDL Cholesterol Lipase TSH Free T4 Urine Color Urine Appearance Urine pH Ur Specific [place] Urine Protein Urine Glucose (UA) Urine Ketones Urine Blood Urine Nitrite Ur Leukocyte Esterase Urine RBC Urine WBC Ur Squamous Epith Cells Urine Bacteria Hyaline Casts Urine Osmolality Ur Random Sodium Urine Opiates Screen Ur Buprenorphine Scrn Ur Oxycodone Screen Urine Methadone Screen Urine Fentanyl Screen Ur Barbiturates Screen Carbamazepine Ur Phencyclidine Scrn Ur Amphetamines Screen U Benzodiazepines Scrn Urine Cocaine Screen U Marijuana (THC) Screen COVID-19 ([facility]) COVID-19 Clin Com Influenza Type A (AMANDA) Influenza Type B (AMANDA) Influenza A & B Note TB Test (T-Spot) Com TB Test Nil Control TB Test Panel A TB Test Panel B TB Test Positive Cntrl 12/14/24 12/15/24 12/15/24 06:21 06:11 21:16 WBC RBC Hgb Hct MCV MCH MCHC RDW Plt Count MPV Immature Gran % (Auto) Neut % (Auto) Lymph % (Auto) [place] % (Auto) Eos % (Auto) Baso % (Auto) Lymph # (Auto) [place] # (Auto) Eos # (Auto) Baso # (Auto) Abs Immat Gran (auto) Absolute Neuts (auto) Absolute Nucleated RBC Nucleated RBC % (auto) Smear Tech's Comments Hold Purple Top VBG pH VBG pCO2 VBG pO2 VBG HCO3 VBG O2 Saturation VBG Base Excess Sodium Potassium Chloride Carbon Dioxide Anion Gap BUN Creatinine Estim Creat Clear Calc Estimated GFR POC Glucose 150 H 158 H 106 Random Glucose Estimat Average Glucose Hemoglobin A1c % Osmolality Lactic Acid Calcium Magnesium Iron TIBC % Saturation Unsat Iron Binding Total Bilirubin AST ALT Alkaline Phosphatase Total Protein Albumin Triglycerides Cholesterol LDL Cholesterol, Calc HDL Cholesterol Lipase TSH Free T4 Urine Color Urine Appearance Urine pH Ur Specific [place] Urine Protein Urine Glucose (UA) Urine Ketones Urine Blood Urine Nitrite Ur Leukocyte Esterase Urine RBC Urine WBC Ur Squamous Epith Cells Urine Bacteria Hyaline Casts Urine Osmolality Ur Random Sodium Urine Opiates Screen Ur Buprenorphine Scrn Ur Oxycodone Screen Urine Methadone Screen Urine Fentanyl Screen Ur Barbiturates Screen Carbamazepine Ur Phencyclidine Scrn Ur Amphetamines Screen U Benzodiazepines Scrn Urine Cocaine Screen U Marijuana (THC) Screen COVID-19 ([facility]) COVID-19 Clin Com Influenza Type A (AMANDA) Influenza Type B (AMANDA) Influenza A & B Note TB Test (T-Spot) Com TB Test Nil Control TB Test Panel A TB Test Panel B TB Test Positive Cntr 12/16/24 12/16/24 12/16/24 06:45 12:26 15:35 WBC RBC Hgb Hct MCV MCH MCHC RDW Plt Count MPV Immature Gran % (Auto) Neut % (Auto) Lymph % (Auto) [place] % (Auto) Eos % (Auto) Baso % (Auto) Lymph # (Auto) [place] # (Auto) Eos # (Auto) Baso # (Auto) Abs Immat Gran (auto) Absolute Neuts (auto) Absolute Nucleated RBC Nucleated RBC % (auto) Smear Tech's Comments Hold Purple Top VBG pH VBG pCO2 VBG pO2 VBG HCO3 VBG O2 Saturation VBG Base Excess Sodium Potassium Chloride Carbon Dioxide Anion Gap BUN Creatinine Estim Creat Clear Calc Estimated GFR POC Glucose 194 H Random Glucose Estimat Average Glucose Hemoglobin A1c % Osmolality Lactic Acid Calcium Magnesium Iron TIBC % Saturation Unsat Iron Binding Total Bilirubin AST ALT Alkaline Phosphatase Total Protein Albumin Triglycerides Cholesterol LDL Cholesterol, Calc HDL Cholesterol Lipase TSH Free T4 Urine Color Urine Appearance Urine pH Ur Specific [place] Urine Protein Urine Glucose (UA) Urine Ketones Urine Blood Urine Nitrite Ur Leukocyte Esterase Urine RBC Urine WBC Ur Squamous Epith Cells Urine Bacteria Hyaline Casts Urine Osmolality Ur Random Sodium Urine Opiates Screen Ur Buprenorphine Scrn Ur Oxycodone Screen Urine Methadone Screen Urine Fentanyl Screen Ur Barbiturates Screen Carbamazepine Ur Phencyclidine Scrn Ur Amphetamines Screen U Benzodiazepines Scrn Urine Cocaine Screen U Marijuana (THC) Screen COVID-19 ([facility]ES[facility]) Negative COVID-19 Clin Com See Note Influenza Type A (AMANDA) Negative Influenza Type B (AMANDA) Negative Influenza A & B Note See Note TB Test (T-Spot) Com TB Test Nil Control TB Test Panel A TB Test Panel B TB Test Positive Cntrl 12/16/24 12/17/24 12/19/24 20:01 19:13 10:21 WBC RBC Hgb Hct MCV MCH MCHC RDW Plt Count MPV Immature Gran % (Auto) Neut % (Auto) Lymph % (Auto) [place] % (Auto) Eos % (Auto) Baso % (Auto) Lymph # (Auto) [place] # (Auto) Eos # (Auto) Baso # (Auto) Abs Immat Gran (auto) Absolute Neuts (auto) Absolute Nucleated RBC Nucleated RBC % (auto) Smear Tech's Comments Hold Purple Top VBG pH VBG pCO2 VBG pO2 VBG HCO3 VBG O2 Saturation VBG Base Excess Sodium Potassium Chloride Carbon Dioxide Anion Gap BUN Creatinine Estim Creat Clear Calc Estimated GFR POC Glucose 213 H 265 H 408 H* Random Glucose Estimat Average Glucose Hemoglobin A1c % Osmolality Lactic Acid Calcium Magnesium Iron TIBC % Saturation Unsat Iron Binding Total Bilirubin AST ALT Alkaline Phosphatase Total Protein Albumin Triglycerides Cholesterol LDL Cholesterol, Calc HDL Cholesterol Lipase TSH Free T4 Urine Color Urine Appearance Urine pH Ur Specific [place] Urine Protein Urine Glucose (UA) Urine Ketones Urine Blood Urine Nitrite Ur Leukocyte Esterase Urine RBC Urine WBC Ur Squamous Epith Cells Urine Bacteria Hyaline Casts Urine Osmolality Ur Random Sodium Urine Opiates Screen Ur Buprenorphine Scrn Ur Oxycodone Screen Urine Methadone Screen Urine Fentanyl Screen Ur Barbiturates Screen Carbamazepine Ur Phencyclidine Scrn Ur Amphetamines Screen U Benzodiazepines Scrn Urine Cocaine Screen U Marijuana (THC) Screen COVID-19 ([facility]ES[facility]) COVID-19 Clin Com Influenza Type A (AMANDA) Influenza Type B (AMANDA) Influenza A & B Note TB Test (T-Spot) Com TB Test Nil Control TB Test Panel A TB Test Panel B TB Test Positive [facility] 12/19/24 12/19/24 12/20/24 16:02 20:57 06:20 WBC RBC Hgb Hct MCV MCH MCHC RDW Plt Count MPV Immature Gran % (Auto) Neut % (Auto) Lymph % (Auto) [place] % (Auto) Eos % (Auto) Baso % (Auto) Lymph # (Auto) [place] # (Auto) Eos # (Auto) Baso # (Auto) Abs Immat Gran (auto) Absolute Neuts (auto) Absolute Nucleated RBC Nucleated RBC % (auto) Smear Tech's Comments Hold Purple Top VBG pH VBG pCO2 VBG pO2 VBG HCO3 VBG O2 Saturation VBG Base Excess Sodium Potassium Chloride Carbon Dioxide Anion Gap BUN Creatinine Estim Creat Clear Calc Estimated GFR POC Glucose 115 101 181 H Random Glucose Estimat Average Glucose Hemoglobin A1c % Osmolality Lactic Acid Calcium Magnesium Iron TIBC % Saturation Unsat Iron Binding Total Bilirubin AST ALT Alkaline Phosphatase Total Protein Albumin Triglycerides Cholesterol LDL Cholesterol, Calc HDL Cholesterol Lipase TSH Free T4 Urine Color Urine Appearance Urine pH Ur Specific [place] Urine Protein Urine Glucose (UA) Urine Ketones Urine Blood Urine Nitrite Ur Leukocyte Esterase Urine RBC Urine WBC Ur Squamous Epith Cells Urine Bacteria Hyaline Casts Urine Osmolality Ur Random Sodium Urine Opiates Screen Ur Buprenorphine Scrn Ur Oxycodone Screen Urine Methadone Screen Urine Fentanyl Screen Ur Barbiturates Screen Carbamazepine Ur Phencyclidine Scrn Ur Amphetamines Screen U Benzodiazepines Scrn Urine Cocaine Screen U Marijuana (THC) Screen COVID-19 (TRESA) COVID-19 Clin Com Influenza Type A (AMANDA) Influenza Type B (AMANDA) Influenza A & B Note TB Test (T-Spot) Com TB Test Nil Control TB Test Panel A TB Test Panel B TB Test Positive [facility] 12/20/24 12/20/24 12/20/24 08:43 10:41 15:49 WBC RBC Hgb Hct MCV MCH MCHC RDW Plt Count MPV Immature Gran % (Auto) Neut % (Auto) Lymph % (Auto) [place] % (Auto) Eos % (Auto) Baso % (Auto) Lymph # (Auto) [place] # (Auto) Eos # (Auto) Baso # (Auto) Abs Immat Gran (auto) Absolute Neuts (auto) Absolute Nucleated RBC Nucleated RBC % (auto) Smear Tech's Comments Hold Purple Top VBG pH VBG pCO2 VBG pO2 VBG HCO3 VBG O2 Saturation VBG Base Excess Sodium 140 Potassium 5.2 H Chloride 107 Carbon Dioxide 25 Anion Gap 13 BUN 27 H Creatinine 1.08 Estim Creat Clear Calc 28.6 Estimated GFR 49 POC Glucose 223 H 177 H Random Glucose 266 H Estimat Average Glucose Hemoglobin A1c % Osmolality Lactic Acid Calcium 9.0 Magnesium Iron TIBC % Saturation Unsat Iron Binding Total Bilirubin 0.3 AST 66 H ALT 70 H Alkaline Phosphatase 60 Total Protein 6.6 Albumin 3.6 Triglycerides Cholesterol LDL Cholesterol, Calc HDL Cholesterol Lipase TSH Free T4 Urine Color Urine Appearance Urine pH Ur Specific [place] Urine Protein Urine Glucose (UA) Urine Ketones Urine Blood Urine Nitrite Ur Leukocyte Esterase Urine RBC Urine WBC Ur Squamous Epith Cells Urine Bacteria Hyaline Casts Urine Osmolality Ur Random Sodium Urine Opiates Screen Ur Buprenorphine Scrn Ur Oxycodone Screen Urine Methadone Screen Urine Fentanyl Screen Ur Barbiturates Screen Carbamazepine Ur Phencyclidine Scrn Ur Amphetamines Screen U Benzodiazepines Scrn Urine Cocaine Screen U Marijuana (THC) Screen COVID-19 ([facility]ESA) COVID-19 Clin Com Influenza Type A (AMANDA) Influenza Type B (AMANDA) Influenza A & B Note TB Test (T-Spot) Com TB Test Nil Control TB Test Panel A TB Test Panel B TB Test Positive Cntr 12/21/24 12/21/24 12/21/24 06:20 11:49 16:10 WBC RBC Hgb Hct MCV MCH MCHC RDW Plt Count MPV Immature Gran % (Auto) Neut % (Auto) Lymph % (Auto) [place] % (Auto) Eos % (Auto) Baso % (Auto) Lymph # (Auto) [place] # (Auto) Eos # (Auto) Baso # (Auto) Abs Immat Gran (auto) Absolute Neuts (auto) Absolute Nucleated RBC Nucleated RBC % (auto) Smear Tech's Comments Hold Purple Top VBG pH VBG pCO2 VBG pO2 VBG HCO3 VBG O2 Saturation VBG Base Excess Sodium Potassium Chloride Carbon Dioxide Anion Gap BUN Creatinine Estim Creat Clear Calc Estimated GFR POC Glucose 170 H 201 H 141 H Random Glucose Estimat Average Glucose Hemoglobin A1c % Osmolality Lactic Acid Calcium Magnesium Iron TIBC % Saturation Unsat Iron Binding Total Bilirubin AST ALT Alkaline Phosphatase Total Protein Albumin Triglycerides Cholesterol LDL Cholesterol, Calc HDL Cholesterol Lipase TSH Free T4 Urine Color Urine Appearance Urine pH Ur Specific [place] Urine Protein Urine Glucose (UA) Urine Ketones Urine Blood Urine Nitrite Ur Leukocyte Esterase Urine RBC Urine WBC Ur Squamous Epith Cells Urine Bacteria Hyaline Casts Urine Osmolality Ur Random Sodium Urine Opiates Screen Ur Buprenorphine Scrn Ur Oxycodone Screen Urine Methadone Screen Urine Fentanyl Screen Ur Barbiturates Screen Carbamazepine Ur Phencyclidine Scrn Ur Amphetamines Screen U Benzodiazepines Scrn Urine Cocaine Screen U Marijuana (THC) Screen COVID-19 (TRESA) COVID-19 Clin Com Influenza Type A (AMANDA) Influenza Type B (AMANDA) Influenza A & B Note TB Test (T-Spot) Com TB Test Nil Control TB Test Panel A TB Test Panel B TB Test Positive Cntrl 12/21/24 12/22/24 12/22/24 20:59 06:39 11:34 WBC RBC Hgb Hct MCV MCH MCHC RDW Plt Count MPV Immature Gran % (Auto) Neut % (Auto) Lymph % (Auto) [place] % (Auto) Eos % (Auto) Baso % (Auto) Lymph # (Auto) [place] # (Auto) Eos # (Auto) Baso # (Auto) Abs Immat Gran (auto) Absolute Neuts (auto) Absolute Nucleated RBC Nucleated RBC % (auto) Smear Tech's Comments Hold Purple Top VBG pH VBG pCO2 VBG pO2 VBG HCO3 VBG O2 Saturation VBG Base Excess Sodium Potassium Chloride Carbon Dioxide Anion Gap BUN Creatinine Estim Creat Clear Calc Estimated GFR POC Glucose 270 H 217 H 134 H Random Glucose Estimat Average Glucose Hemoglobin A1c % Osmolality Lactic Acid Calcium Magnesium Iron TIBC % Saturation Unsat Iron Binding Total Bilirubin AST ALT Alkaline Phosphatase Total Protein Albumin Triglycerides Cholesterol LDL Cholesterol, Calc HDL Cholesterol Lipase TSH Free T4 Urine Color Urine Appearance Urine pH Ur Specific [place] Urine Protein Urine Glucose (UA) Urine Ketones Urine Blood Urine Nitrite Ur Leukocyte Esterase Urine RBC Urine WBC Ur Squamous Epith Cells Urine Bacteria Hyaline Casts Urine Osmolality Ur Random Sodium Urine Opiates Screen Ur Buprenorphine Scrn Ur Oxycodone Screen Urine Methadone Screen Urine Fentanyl Screen Ur Barbiturates Screen Carbamazepine Ur Phencyclidine Scrn Ur Amphetamines Screen U Benzodiazepines Scrn Urine Cocaine Screen U Marijuana (THC) Screen COVID-19 ([facility]ESA) COVID-19 Clin Com Influenza Type A (AMANDA) Influenza Type B (AMANDA) Influenza A & B Note TB Test (T-Spot) Com TB Test Nil Control TB Test Panel A TB Test Panel B TB Test Positive Cntr 12/22/24 12/22/24 12/23/24 16:32 20:04 06:23 WBC RBC Hgb Hct MCV MCH MCHC RDW Plt Count MPV Immature Gran % (Auto) Neut % (Auto) Lymph % (Auto) [place] % (Auto) Eos % (Auto) Baso % (Auto) Lymph # (Auto) [place] # (Auto) Eos # (Auto) Baso # (Auto) Abs Immat Gran (auto) Absolute Neuts (auto) Absolute Nucleated RBC Nucleated RBC % (auto) Smear Tech's Comments Hold Purple Top VBG pH VBG pCO2 VBG pO2 VBG HCO3 VBG O2 Saturation VBG Base Excess Sodium Potassium Chloride Carbon Dioxide Anion Gap BUN Creatinine Estim Creat Clear Calc Estimated GFR POC Glucose 200 H 76 237 H Random Glucose Estimat Average Glucose Hemoglobin A1c % Osmolality Lactic Acid Calcium Magnesium Iron TIBC % Saturation Unsat Iron Binding Total Bilirubin AST ALT Alkaline Phosphatase Total Protein Albumin Triglycerides Cholesterol LDL Cholesterol, Calc HDL Cholesterol Lipase TSH Free T4 Urine Color Urine Appearance Urine pH Ur Specific [place] Urine Protein Urine Glucose (UA) Urine Ketones Urine Blood Urine Nitrite Ur Leukocyte Esterase Urine RBC Urine WBC Ur Squamous Epith Cells Urine Bacteria Hyaline Casts Urine Osmolality Ur Random Sodium Urine Opiates Screen Ur Buprenorphine Scrn Ur Oxycodone Screen Urine Methadone Screen Urine Fentanyl Screen Ur Barbiturates Screen Carbamazepine Ur Phencyclidine Scrn Ur Amphetamines Screen U Benzodiazepines Scrn Urine Cocaine Screen U Marijuana (THC) Screen COVID-19 ([facility]ESA) COVID-19 Clin Com Influenza Type A (AMANDA) Influenza Type B (AMANDA) Influenza A & B Note TB Test (T-Spot) Com TB Test Nil Control TB Test Panel A TB Test Panel B TB Test Positive [facility] 12/23/24 12/23/24 12/23/24 11:32 16:20 19:35 WBC RBC Hgb Hct MCV MCH MCHC RDW Plt Count MPV Immature Gran % (Auto) Neut % (Auto) Lymph % (Auto) [place] % (Auto) Eos % (Auto) Baso % (Auto) Lymph # (Auto) [place] # (Auto) Eos # (Auto) Baso # (Auto) Abs Immat Gran (auto) Absolute Neuts (auto) Absolute Nucleated RBC Nucleated RBC % (auto) Smear Tech's Comments Hold Purple Top VBG pH VBG pCO2 VBG pO2 VBG HCO3 VBG O2 Saturation VBG Base Excess Sodium Potassium Chloride Carbon Dioxide Anion Gap BUN Creatinine Estim Creat Clear Calc Estimated GFR POC Glucose 114 125 H 134 H Random Glucose Estimat Average Glucose Hemoglobin A1c % Osmolality Lactic Acid Calcium Magnesium Iron TIBC % Saturation Unsat Iron Binding Total Bilirubin AST ALT Alkaline Phosphatase Total Protein Albumin Triglycerides Cholesterol LDL Cholesterol, Calc HDL Cholesterol Lipase TSH Free T4 Urine Color Urine Appearance Urine pH Ur Specific [place] Urine Protein Urine Glucose (UA) Urine Ketones Urine Blood Urine Nitrite Ur Leukocyte Esterase Urine RBC Urine WBC Ur Squamous Epith Cells Urine Bacteria Hyaline Casts Urine Osmolality Ur Random Sodium Urine Opiates Screen Ur Buprenorphine Scrn Ur Oxycodone Screen Urine Methadone Screen Urine Fentanyl Screen Ur Barbiturates Screen Carbamazepine Ur Phencyclidine Scrn Ur Amphetamines Screen U Benzodiazepines Scrn Urine Cocaine Screen U Marijuana (THC) Screen COVID-19 ([facility]ESA) COVID-19 Clin Com Influenza Type A (AMANDA) Influenza Type B (AMANDA) Influenza A & B Note TB Test (T-Spot) Com TB Test Nil Control TB Test Panel A TB Test Panel B TB Test Positive Cntrl 12/24/24 12/24/24 12/24/24 06:14 11:21 16:11 WBC RBC Hgb Hct MCV MCH MCHC RDW Plt Count MPV Immature Gran % (Auto) Neut % (Auto) Lymph % (Auto) [place] % (Auto) Eos % (Auto) Baso % (Auto) Lymph # (Auto) [place] # (Auto) Eos # (Auto) Baso # (Auto) Abs Immat Gran (auto) Absolute Neuts (auto) Absolute Nucleated RBC Nucleated RBC % (auto) Smear Tech's Comments Hold Purple Top VBG pH VBG pCO2 VBG pO2 VBG HCO3 VBG O2 Saturation VBG Base Excess Sodium Potassium Chloride Carbon Dioxide Anion Gap BUN Creatinine Estim Creat Clear Calc Estimated GFR POC Glucose 212 H 168 H 97 Random Glucose Estimat Average Glucose Hemoglobin A1c % Osmolality Lactic Acid Calcium Magnesium Iron TIBC % Saturation Unsat Iron Binding Total Bilirubin AST ALT Alkaline Phosphatase Total Protein Albumin Triglycerides Cholesterol LDL Cholesterol, Calc HDL Cholesterol Lipase TSH Free T4 Urine Color Urine Appearance Urine pH Ur Specific [place] Urine Protein Urine Glucose (UA) Urine Ketones Urine Blood Urine Nitrite Ur Leukocyte Esterase Urine RBC Urine WBC Ur Squamous Epith Cells Urine Bacteria Hyaline Casts Urine Osmolality Ur Random Sodium Urine Opiates Screen Ur Buprenorphine Scrn Ur Oxycodone Screen Urine Methadone Screen Urine Fentanyl Screen Ur Barbiturates Screen Carbamazepine Ur Phencyclidine Scrn Ur Amphetamines Screen U Benzodiazepines Scrn Urine Cocaine Screen U Marijuana (THC) Screen COVID-19 ([facility]ESA) COVID-19 Clin Com Influenza Type A (AMANDA) Influenza Type B (AMANDA) Influenza A & B Note TB Test (T-Spot) Com TB Test Nil Control TB Test Panel A TB Test Panel B TB Test Positive [facility] 12/24/24 12/25/24 12/25/24 20:01 05:45 10:16 WBC RBC Hgb Hct MCV MCH MCHC RDW Plt Count MPV Immature Gran % (Auto) Neut % (Auto) Lymph % (Auto) [place] % (Auto) Eos % (Auto) Baso % (Auto) Lymph # (Auto) [place] # (Auto) Eos # (Auto) Baso # (Auto) Abs Immat Gran (auto) Absolute Neuts (auto) Absolute Nucleated RBC Nucleated RBC % (auto) Smear Tech's Comments Hold Purple Top VBG pH VBG pCO2 VBG pO2 VBG HCO3 VBG O2 Saturation VBG Base Excess Sodium Potassium Chloride Carbon Dioxide Anion Gap BUN Creatinine Estim Creat Clear Calc Estimated GFR POC Glucose 208 H 220 H 224 H Random Glucose Estimat Average Glucose Hemoglobin A1c % Osmolality Lactic Acid Calcium Magnesium Iron TIBC % Saturation Unsat Iron Binding Total Bilirubin AST ALT Alkaline Phosphatase Total Protein Albumin Triglycerides Cholesterol LDL Cholesterol, Calc HDL Cholesterol Lipase TSH Free T4 Urine Color Urine Appearance Urine pH Ur Specific [place] Urine Protein Urine Glucose (UA) Urine Ketones Urine Blood Urine Nitrite Ur Leukocyte Esterase Urine RBC Urine WBC Ur Squamous Epith Cells Urine Bacteria Hyaline Casts Urine Osmolality Ur Random Sodium Urine Opiates Screen Ur Buprenorphine Scrn Ur Oxycodone Screen Urine Methadone Screen Urine Fentanyl Screen Ur Barbiturates Screen Carbamazepine Ur Phencyclidine Scrn Ur Amphetamines Screen U Benzodiazepines Scrn Urine Cocaine Screen U Marijuana (THC) Screen COVID-19 (TRESA) COVID-19 Clin Com Influenza Type A (AMANDA) Influenza Type B (AMANDA) Influenza A & B Note TB Test (T-Spot) Com TB Test Nil Control TB Test Panel A TB Test Panel B TB Test Positive [facility] 12/25/24 12/25/24 12/26/24 16:09 20:08 06:42 WBC RBC Hgb Hct MCV MCH MCHC RDW Plt Count MPV Immature Gran % (Auto) Neut % (Auto) Lymph % (Auto) [place] % (Auto) Eos % (Auto) Baso % (Auto) Lymph # (Auto) [place] # (Auto) Eos # (Auto) Baso # (Auto) Abs Immat Gran (auto) Absolute Neuts (auto) Absolute Nucleated RBC Nucleated RBC % (auto) Smear Tech's Comments Hold Purple Top VBG pH VBG pCO2 VBG pO2 VBG HCO3 VBG O2 Saturation VBG Base Excess Sodium Potassium Chloride Carbon Dioxide Anion Gap BUN Creatinine Estim Creat Clear Calc Estimated GFR POC Glucose 86 281 H 210 H Random Glucose Estimat Average Glucose Hemoglobin A1c % Osmolality Lactic Acid Calcium Magnesium Iron TIBC % Saturation Unsat Iron Binding Total Bilirubin AST ALT Alkaline Phosphatase Total Protein Albumin Triglycerides Cholesterol LDL Cholesterol, Calc HDL Cholesterol Lipase TSH Free T4 Urine Color Urine Appearance Urine pH Ur Specific [place] Urine Protein Urine Glucose (UA) Urine Ketones Urine Blood Urine Nitrite Ur Leukocyte Esterase Urine RBC Urine WBC Ur Squamous Epith Cells Urine Bacteria Hyaline Casts Urine Osmolality Ur Random Sodium Urine Opiates Screen Ur Buprenorphine Scrn Ur Oxycodone Screen Urine Methadone Screen Urine Fentanyl Screen Ur Barbiturates Screen Carbamazepine Ur Phencyclidine Scrn Ur Amphetamines Screen U Benzodiazepines Scrn Urine Cocaine Screen U Marijuana (THC) Screen COVID-19 (TRESA) COVID-19 Clin Com Influenza Type A (AMANDA) Influenza Type B (AMANDA) Influenza A & B Note TB Test (T-Spot) Com TB Test Nil Control TB Test Panel A TB Test Panel B TB Test Positive Cntrl 12/26/24 12/26/24 12/26/24 11:10 14:48 16:13 WBC RBC Hgb Hct MCV MCH MCHC RDW Plt Count MPV Immature Gran % (Auto) Neut % (Auto) Lymph % (Auto) [place] % (Auto) Eos % (Auto) Baso % (Auto) Lymph # (Auto) [place] # (Auto) Eos # (Auto) Baso # (Auto) Abs Immat Gran (auto) Absolute Neuts (auto) Absolute Nucleated RBC Nucleated RBC % (auto) Smear Tech's Comments Hold Purple Top VBG pH VBG pCO2 VBG pO2 VBG HCO3 VBG O2 Saturation VBG Base Excess Sodium Potassium Chloride Carbon Dioxide Anion Gap BUN Creatinine Estim Creat Clear Calc Estimated GFR POC Glucose 284 H 130 H 146 H Random Glucose Estimat Average Glucose Hemoglobin A1c % Osmolality Lactic Acid Calcium Magnesium Iron TIBC % Saturation Unsat Iron Binding Total Bilirubin AST ALT Alkaline Phosphatase Total Protein Albumin Triglycerides Cholesterol LDL Cholesterol, Calc HDL Cholesterol Lipase TSH Free T4 Urine Color Urine Appearance Urine pH Ur Specific [place] Urine Protein Urine Glucose (UA) Urine Ketones Urine Blood Urine Nitrite Ur Leukocyte Esterase Urine RBC Urine WBC Ur Squamous Epith Cells Urine Bacteria Hyaline Casts Urine Osmolality Ur Random Sodium Urine Opiates Screen Ur Buprenorphine Scrn Ur Oxycodone Screen Urine Methadone Screen Urine Fentanyl Screen Ur Barbiturates Screen Carbamazepine Ur Phencyclidine Scrn Ur Amphetamines Screen U Benzodiazepines Scrn Urine Cocaine Screen U Marijuana (THC) Screen COVID-19 (TRESA) COVID-19 Clin Com Influenza Type A (AMANDA) Influenza Type B (AMANDA) Influenza A & B Note TB Test (T-Spot) Com TB Test Nil Control TB Test Panel A TB Test Panel B TB Test Positive Cntrl 12/26/24 12/27/24 12/27/24 20:01 06:05 11:24 WBC RBC Hgb Hct MCV MCH MCHC RDW Plt Count MPV Immature Gran % (Auto) Neut % (Auto) Lymph % (Auto) [place] % (Auto) Eos % (Auto) Baso % (Auto) Lymph # (Auto) [place] # (Auto) Eos # (Auto) Baso # (Auto) Abs Immat Gran (auto) Absolute Neuts (auto) Absolute Nucleated RBC Nucleated RBC % (auto) Smear Tech's Comments Hold Purple Top VBG pH VBG pCO2 VBG pO2 VBG HCO3 VBG O2 Saturation VBG Base Excess Sodium Potassium Chloride Carbon Dioxide Anion Gap BUN Creatinine Estim Creat Clear Calc Estimated GFR POC Glucose 200 H 229 H 393 H* Random Glucose Estimat Average Glucose Hemoglobin A1c % Osmolality Lactic Acid Calcium Magnesium Iron TIBC % Saturation Unsat Iron Binding Total Bilirubin AST ALT Alkaline Phosphatase Total Protein Albumin Triglycerides Cholesterol LDL Cholesterol, Calc HDL Cholesterol Lipase TSH Free T4 Urine Color Urine Appearance Urine pH Ur Specific [place] Urine Protein Urine Glucose (UA) Urine Ketones Urine Blood Urine Nitrite Ur Leukocyte Esterase Urine RBC Urine WBC Ur Squamous Epith Cells Urine Bacteria Hyaline Casts Urine Osmolality Ur Random Sodium Urine Opiates Screen Ur Buprenorphine Scrn Ur Oxycodone Screen Urine Methadone Screen Urine Fentanyl Screen Ur Barbiturates Screen Carbamazepine Ur Phencyclidine Scrn Ur Amphetamines Screen U Benzodiazepines Scrn Urine Cocaine Screen U Marijuana (THC) Screen COVID-19 ([facility]ESA) COVID-19 Clin Com Influenza Type A (AMANDA) Influenza Type B (AMANDA) Influenza A & B Note TB Test (T-Spot) Com TB Test Nil Control TB Test Panel A TB Test Panel B TB Test Positive [facility] 12/27/24 12/27/24 12/27/24 15:38 15:51 16:38 WBC RBC Hgb Hct MCV MCH MCHC RDW Plt Count MPV Immature Gran % (Auto) Neut % (Auto) Lymph % (Auto) [place] % (Auto) Eos % (Auto) Baso % (Auto) Lymph # (Auto) [place] # (Auto) Eos # (Auto) Baso # (Auto) Abs Immat Gran (auto) Absolute Neuts (auto) Absolute Nucleated RBC Nucleated RBC % (auto) Smear Tech's Comments Hold Purple Top VBG pH VBG pCO2 VBG pO2 VBG HCO3 VBG O2 Saturation VBG Base Excess Sodium Potassium Chloride Carbon Dioxide Anion Gap BUN Creatinine Estim Creat Clear Calc Estimated GFR POC Glucose 54 L* 109 199 H Random Glucose Estimat Average Glucose Hemoglobin A1c % Osmolality Lactic Acid Calcium Magnesium Iron TIBC % Saturation Unsat Iron Binding Total Bilirubin AST ALT Alkaline Phosphatase Total Protein Albumin Triglycerides Cholesterol LDL Cholesterol, Calc HDL Cholesterol Lipase TSH Free T4 Urine Color Urine Appearance Urine pH Ur Specific [place] Urine Protein Urine Glucose (UA) Urine Ketones Urine Blood Urine Nitrite Ur Leukocyte Esterase Urine RBC Urine WBC Ur Squamous Epith Cells Urine Bacteria Hyaline Casts Urine Osmolality Ur Random Sodium Urine Opiates Screen Ur Buprenorphine Scrn Ur Oxycodone Screen Urine Methadone Screen Urine Fentanyl Screen Ur Barbiturates Screen Carbamazepine Ur Phencyclidine Scrn Ur Amphetamines Screen U Benzodiazepines Scrn Urine Cocaine Screen U Marijuana (THC) Screen COVID-19 ([facility]ES[facility]) COVID-19 Clin Com Influenza Type A (AMANDA) Influenza Type B (AMANDA) Influenza A & B Note TB Test (T-Spot) Com TB Test Nil Control TB Test Panel A TB Test Panel B TB Test Positive [facility] 12/27/24 12/28/24 12/28/24 20:04 07:13 11:00 WBC RBC Hgb Hct MCV MCH MCHC RDW Plt Count MPV Immature Gran % (Auto) Neut % (Auto) Lymph % (Auto) [place] % (Auto) Eos % (Auto) Baso % (Auto) Lymph # (Auto) [place] # (Auto) Eos # (Auto) Baso # (Auto) Abs Immat Gran (auto) Absolute Neuts (auto) Absolute Nucleated RBC Nucleated RBC % (auto) Smear Tech's Comments Hold Purple Top VBG pH VBG pCO2 VBG pO2 VBG HCO3 VBG O2 Saturation VBG Base Excess Sodium Potassium Chloride Carbon Dioxide Anion Gap BUN Creatinine Estim Creat Clear Calc Estimated GFR POC Glucose 281 H 263 H 195 H Random Glucose Estimat Average Glucose Hemoglobin A1c % Osmolality Lactic Acid Calcium Magnesium Iron TIBC % Saturation Unsat Iron Binding Total Bilirubin AST ALT Alkaline Phosphatase Total Protein Albumin Triglycerides Cholesterol LDL Cholesterol, Calc HDL Cholesterol Lipase TSH Free T4 Urine Color Urine Appearance Urine pH Ur Specific [place] Urine Protein Urine Glucose (UA) Urine Ketones Urine Blood Urine Nitrite Ur Leukocyte Esterase Urine RBC Urine WBC Ur Squamous Epith Cells Urine Bacteria Hyaline Casts Urine Osmolality Ur Random Sodium Urine Opiates Screen Ur Buprenorphine Scrn Ur Oxycodone Screen Urine Methadone Screen Urine Fentanyl Screen Ur Barbiturates Screen Carbamazepine Ur Phencyclidine Scrn Ur Amphetamines Screen U Benzodiazepines Scrn Urine Cocaine Screen U Marijuana (THC) Screen COVID-19 ([facility]) COVID-19 Clin Com Influenza Type A (AMANDA) Influenza Type B (AMANDA) Influenza A & B Note TB Test (T-Spot) Com TB Test Nil Control TB Test Panel A TB Test Panel B TB Test Positive Cntrl 12/28/24 12/28/24 12/29/24 16:12 20:21 06:47 WBC RBC Hgb Hct MCV MCH MCHC RDW Plt Count MPV Immature Gran % (Auto) Neut % (Auto) Lymph % (Auto) [place] % (Auto) Eos % (Auto) Baso % (Auto) Lymph # (Auto) [place] # (Auto) Eos # (Auto) Baso # (Auto) Abs Immat Gran (auto) Absolute Neuts (auto) Absolute Nucleated RBC Nucleated RBC % (auto) Smear Tech's Comments Hold Purple Top VBG pH VBG pCO2 VBG pO2 VBG HCO3 VBG O2 Saturation VBG Base Excess Sodium Potassium Chloride Carbon Dioxide Anion Gap BUN Creatinine Estim Creat Clear Calc Estimated GFR POC Glucose 111 134 H 257 H Random Glucose Estimat Average Glucose Hemoglobin A1c % Osmolality Lactic Acid Calcium Magnesium Iron TIBC % Saturation Unsat Iron Binding Total Bilirubin AST ALT Alkaline Phosphatase Total Protein Albumin Triglycerides Cholesterol LDL Cholesterol, Calc HDL Cholesterol Lipase TSH Free T4 Urine Color Urine Appearance Urine pH Ur Specific [place] Urine Protein Urine Glucose (UA) Urine Ketones Urine Blood Urine Nitrite Ur Leukocyte Esterase Urine RBC Urine WBC Ur Squamous Epith Cells Urine Bacteria Hyaline Casts Urine Osmolality Ur Random Sodium Urine Opiates Screen Ur Buprenorphine Scrn Ur Oxycodone Screen Urine Methadone Screen Urine Fentanyl Screen Ur Barbiturates Screen Carbamazepine Ur Phencyclidine Scrn Ur Amphetamines Screen U Benzodiazepines Scrn Urine Cocaine Screen U Marijuana (THC) Screen COVID-19 ([facility]) COVID-19 Clin Com Influenza Type A (AMANDA) Influenza Type B (AMANDA) Influenza A & B Note TB Test (T-Spot) Com TB Test Nil Control TB Test Panel A TB Test Panel B TB Test Positive [facility] 12/29/24 12/29/24 12/30/24 11:20 16:23 06:14 WBC RBC Hgb Hct MCV MCH MCHC RDW Plt Count MPV Immature Gran % (Auto) Neut % (Auto) Lymph % (Auto) [place] % (Auto) Eos % (Auto) Baso % (Auto) Lymph # (Auto) [place] # (Auto) Eos # (Auto) Baso # (Auto) Abs Immat Gran (auto) Absolute Neuts (auto) Absolute Nucleated RBC Nucleated RBC % (auto) Smear Tech's Comments Hold Purple Top VBG pH VBG pCO2 VBG pO2 VBG HCO3 VBG O2 Saturation VBG Base Excess Sodium Potassium Chloride Carbon Dioxide Anion Gap BUN Creatinine Estim Creat Clear Calc Estimated GFR POC Glucose 149 H 211 H 180 H Random Glucose Estimat Average Glucose Hemoglobin A1c % Osmolality Lactic Acid Calcium Magnesium Iron TIBC % Saturation Unsat Iron Binding Total Bilirubin AST ALT Alkaline Phosphatase Total Protein Albumin Triglycerides Cholesterol LDL Cholesterol, Calc HDL Cholesterol Lipase TSH Free T4 Urine Color Urine Appearance Urine pH Ur Specific [place] Urine Protein Urine Glucose (UA) Urine Ketones Urine Blood Urine Nitrite Ur Leukocyte Esterase Urine RBC Urine WBC Ur Squamous Epith Cells Urine Bacteria Hyaline Casts Urine Osmolality Ur Random Sodium Urine Opiates Screen Ur Buprenorphine Scrn Ur Oxycodone Screen Urine Methadone Screen Urine Fentanyl Screen Ur Barbiturates Screen Carbamazepine Ur Phencyclidine Scrn Ur Amphetamines Screen U Benzodiazepines Scrn Urine Cocaine Screen U Marijuana (THC) Screen COVID-19 ([facility]) COVID-19 Clin Com Influenza Type A (AMANDA) Influenza Type B (AMANDA) Influenza A & B Note TB Test (T-Spot) Com TB Test Nil Control TB Test Panel A TB Test Panel B TB Test Positive [facility] 12/30/24 12/30/24 12/30/24 08:43 11:25 14:17 WBC RBC Hgb Hct MCV MCH MCHC RDW Plt Count MPV Immature Gran % (Auto) Neut % (Auto) Lymph % (Auto) [place] % (Auto) Eos % (Auto) Baso % (Auto) Lymph # (Auto) [place] # (Auto) Eos # (Auto) Baso # (Auto) Abs Immat Gran (auto) Absolute Neuts (auto) Absolute Nucleated RBC Nucleated RBC % (auto) Smear Tech's Comments Hold Purple Top VBG pH VBG pCO2 VBG pO2 VBG HCO3 VBG O2 Saturation VBG Base Excess Sodium Potassium Chloride Carbon Dioxide Anion Gap BUN Creatinine Estim Creat Clear Calc Estimated GFR POC Glucose 267 H 288 H 47 L* Random Glucose Estimat Average Glucose Hemoglobin A1c % Osmolality Lactic Acid Calcium Magnesium Iron TIBC % Saturation Unsat Iron Binding Total Bilirubin AST ALT Alkaline Phosphatase Total Protein Albumin Triglycerides Cholesterol LDL Cholesterol, Calc HDL Cholesterol Lipase TSH Free T4 Urine Color Urine Appearance Urine pH Ur Specific [place] Urine Protein Urine Glucose (UA) Urine Ketones Urine Blood Urine Nitrite Ur Leukocyte Esterase Urine RBC Urine WBC Ur Squamous Epith Cells Urine Bacteria Hyaline Casts Urine Osmolality Ur Random Sodium Urine Opiates Screen Ur Buprenorphine Scrn Ur Oxycodone Screen Urine Methadone Screen Urine Fentanyl Screen Ur Barbiturates Screen Carbamazepine Ur Phencyclidine Scrn Ur Amphetamines Screen U Benzodiazepines Scrn Urine Cocaine Screen U Marijuana (THC) Screen COVID-19 ([facility]ES[facility]) COVID-19 Clin Com Influenza Type A (AMANDA) Influenza Type B (AMANDA) Influenza A & B Note TB Test (T-Spot) Com TB Test Nil Control TB Test Panel A TB Test Panel B TB Test Positive Cnt 12/30/24 12/30/24 12/30/24 14:38 16:28 19:26 WBC RBC Hgb Hct MCV MCH MCHC RDW Plt Count MPV Immature Gran % (Auto) Neut % (Auto) Lymph % (Auto) [place] % (Auto) Eos % (Auto) Baso % (Auto) Lymph # (Auto) [place] # (Auto) Eos # (Auto) Baso # (Auto) Abs Immat Gran (auto) Absolute Neuts (auto) Absolute Nucleated RBC Nucleated RBC % (auto) Smear Tech's Comments Hold Purple Top VBG pH VBG pCO2 VBG pO2 VBG HCO3 VBG O2 Saturation VBG Base Excess Sodium Potassium Chloride Carbon Dioxide Anion Gap BUN Creatinine Estim Creat Clear Calc Estimated GFR POC Glucose 100 140 H 179 H Random Glucose Estimat Average Glucose Hemoglobin A1c % Osmolality Lactic Acid Calcium Magnesium Iron TIBC % Saturation Unsat Iron Binding Total Bilirubin AST ALT Alkaline Phosphatase Total Protein Albumin Triglycerides Cholesterol LDL Cholesterol, Calc HDL Cholesterol Lipase TSH Free T4 Urine Color Urine Appearance Urine pH Ur Specific [place] Urine Protein Urine Glucose (UA) Urine Ketones Urine Blood Urine Nitrite Ur Leukocyte Esterase Urine RBC Urine WBC Ur Squamous Epith Cells Urine Bacteria Hyaline Casts Urine Osmolality Ur Random Sodium Urine Opiates Screen Ur Buprenorphine Scrn Ur Oxycodone Screen Urine Methadone Screen Urine Fentanyl Screen Ur Barbiturates Screen Carbamazepine Ur Phencyclidine Scrn Ur Amphetamines Screen U Benzodiazepines Scrn Urine Cocaine Screen U Marijuana (THC) Screen COVID-19 ([facility]ESA) COVID-19 Clin Com Influenza Type A (AMANDA) Influenza Type B (AMANDA) Influenza A & B Note TB Test (T-Spot) Com TB Test Nil Control TB Test Panel A TB Test Panel B TB Test Positive Cntrl 12/31/24 12/31/24 12/31/24 06:21 11:26 16:07 WBC RBC Hgb Hct MCV MCH MCHC RDW Plt Count MPV Immature Gran % (Auto) Neut % (Auto) Lymph % (Auto) [place] % (Auto) Eos % (Auto) Baso % (Auto) Lymph # (Auto) [place] # (Auto) Eos # (Auto) Baso # (Auto) Abs Immat Gran (auto) Absolute Neuts (auto) Absolute Nucleated RBC Nucleated RBC % (auto) Smear Tech's Comments Hold Purple Top VBG pH VBG pCO2 VBG pO2 VBG HCO3 VBG O2 Saturation VBG Base Excess Sodium Potassium Chloride Carbon Dioxide Anion Gap BUN Creatinine Estim Creat Clear Calc Estimated GFR POC Glucose 236 H 245 H 166 H Random Glucose Estimat Average Glucose Hemoglobin A1c % Osmolality Lactic Acid Calcium Magnesium Iron TIBC % Saturation Unsat Iron Binding Total Bilirubin AST ALT Alkaline Phosphatase Total Protein Albumin Triglycerides Cholesterol LDL Cholesterol, Calc HDL Cholesterol Lipase TSH Free T4 Urine Color Urine Appearance Urine pH Ur Specific [place] Urine Protein Urine Glucose (UA) Urine Ketones Urine Blood Urine Nitrite Ur Leukocyte Esterase Urine RBC Urine WBC Ur Squamous Epith Cells Urine Bacteria Hyaline Casts Urine Osmolality Ur Random Sodium Urine Opiates Screen Ur Buprenorphine Scrn Ur Oxycodone Screen Urine Methadone Screen Urine Fentanyl Screen Ur Barbiturates Screen Carbamazepine Ur Phencyclidine Scrn Ur Amphetamines Screen U Benzodiazepines Scrn Urine Cocaine Screen U Marijuana (THC) Screen COVID-19 ([facility]ES[facility]) COVID-19 Clin Com Influenza Type A (AMANDA) Influenza Type B (AMANDA) Influenza A & B Note TB Test (T-Spot) Com TB Test Nil Control TB Test Panel A TB Test Panel B TB Test Positive Cntrl 12/31/24 01/01/25 01/01/25 20:36 06:10 10:35 WBC RBC Hgb Hct MCV MCH MCHC RDW Plt Count MPV Immature Gran % (Auto) Neut % (Auto) Lymph % (Auto) [place] % (Auto) Eos % (Auto) Baso % (Auto) Lymph # (Auto) [place] # (Auto) Eos # (Auto) Baso # (Auto) Abs Immat Gran (auto) Absolute Neuts (auto) Absolute Nucleated RBC Nucleated RBC % (auto) Smear Tech's Comments Hold Purple Top VBG pH VBG pCO2 VBG pO2 VBG HCO3 VBG O2 Saturation VBG Base Excess Sodium Potassium Chloride Carbon Dioxide Anion Gap BUN Creatinine Estim Creat Clear Calc Estimated GFR POC Glucose 130 H 186 H 263 H Random Glucose Estimat Average Glucose Hemoglobin A1c % Osmolality Lactic Acid Calcium Magnesium Iron TIBC % Saturation Unsat Iron Binding Total Bilirubin AST ALT Alkaline Phosphatase Total Protein Albumin Triglycerides Cholesterol LDL Cholesterol, Calc HDL Cholesterol Lipase TSH Free T4 Urine Color Urine Appearance Urine pH Ur Specific [place] Urine Protein Urine Glucose (UA) Urine Ketones Urine Blood Urine Nitrite Ur Leukocyte Esterase Urine RBC Urine WBC Ur Squamous Epith Cells Urine Bacteria Hyaline Casts Urine Osmolality Ur Random Sodium Urine Opiates Screen Ur Buprenorphine Scrn Ur Oxycodone Screen Urine Methadone Screen Urine Fentanyl Screen Ur Barbiturates Screen Carbamazepine Ur Phencyclidine Scrn Ur Amphetamines Screen U Benzodiazepines Scrn Urine Cocaine Screen U Marijuana (THC) Screen COVID-19 ([facility]ES[facility]) COVID-19 Clin Com Influenza Type A (AMANDA) Influenza Type B (AMANDA) Influenza A & B Note TB Test (T-Spot) Com TB Test Nil Control TB Test Panel A TB Test Panel B TB Test Positive Cntrl Airway Mallampati Class: II TM Dist: >3cm Neck ROM: Full Heart: rrr Lungs: cta Assessment and Plan Assessment Anesthesia Assessment: Anesthesia Plan Discussed and Chart Reviewed Final Anesthetic Review Family History of Problems with Anesthesia: No History of Problems with Anesthesia: No NPO: Yes ASA Class: III Final Preanesthetic Review: No Changes in Pt Med Stat, Meds/Allgs Chart Reviewed and Consent Obtained/Reviewed Patient Risk: Intermediate Procedure Risk: Intermediate Anesthetic Plan Anesthetic Plan: GA Disposition: Standard PACU
[2025-01-01] MEDS: Lactated Ringers 1,000 ML 50 ML IVCONT (13:14)
--- NOTE | 2025-01-01 13:14 | MHC.SHP ---
Pre-Procedural Eval Section A - 24 Hr Update-Section A only Date of Service: 01/01/25 The patient is an INPATIENT: Yes Changes since office visit: Yes Patient answered all questions; No Cold of Flu in the past 2 weeks, No New Medical Problems and No Changes in Medication The patient has been examined within 24 hours of the surgical procedure. The History & Physical has been completed within 30 days and I have reviewed it.: Yes Section B - Complete if H&P > 30 days Chief Complaint: SI with plan to OD on medications, increased anxie Allergies: Allergies Allergy/AdvReac Type Severity Reaction Status Date / Time ampicillin Allergy Rash Verified 10/20/24 19:28 morphine Allergy Rash Verified 10/20/24 19:28 Penicillins Allergy Rash Verified 10/20/24 19:28 pork derived (porcine) Allergy Vomiting Verified 11/10/24 17:49 Plan Diagnosis/Plan: Unchanged I have reviewed the history and physical and performed a pertinent physical examination on my patient. No changes have occurred unless specified. Time Spent With Patient Time: Total time managing care of this patient today ____ minutes.
--- NOTE | 2025-01-01 13:29 | HO.ECTPROC ---
ECT Procedure Note Diagnosis/Treatment Date of Service: 01/01/25 Diagnosis: Major Depressive Disorder Previous ECT Date: 12/30/24 Current Treatment Number: 6 Treatment: Series Interval Clinical Notes: pt doing well she states going to [facility] . no cognitive complaints from ect Time: Total time managing care of this patient today ____ minutes. ECT Settings Device: THYMATRON DGx Program/Pulse Width: 0.50 Energy Percent: 100 Seizure Duration By EEG (in seconds): 14 Medications Administration General Anesthetic: Etomidate (12) Muscle Relaxant: Succinylcholine (80) Ancillary Medications Miscillaneous Medications: Flumazenil (250) Airway Management Airway Management: Bag Mask Ventilation Treatment Recommendations No Changes Recommended: No change
[2025-01-01 16:26] LABS: Glucose, Whole Blood 184 mg/dL (60-115)
[2025-01-01 20:14] LABS: Glucose, Whole Blood 180 mg/dL (60-115)
[2025-01-02 06:47] LABS: Glucose, Whole Blood 194 mg/dL (60-115)
[2025-01-02 08:00] VITALS: BP 129/66; PULSE 91; RESP 14; TEMP 2.5; TEMP 36.5; O2SAT 94
[2025-01-02] MEDS: Fluticasone/Vilanterol 100/25 BLST.W.DEV 1 PUFF INHALE (08:06)
[2025-01-02 08:07] VITALS: BP 129/66
[2025-01-02] MEDS: buPROPion HCl XL 300 MG TAB.ER.24H PO (08:07)
[2025-01-02 08:20] VITALS: BMI 22.8
[2025-01-02 11:33] LABS: Glucose, Whole Blood 259 mg/dL (60-115)
--- NOTE | 2025-01-02 13:26 | HO.PSYCHPN ---
Subjective Subjective Date of Service: 01/02/25 Reason For Visit: SI with plan to OD on medications, increased anxie Interim History: more affectively expressive. pleasant. would like to have only 6 ECTs. no complaints or requests, states she feels OK. per staff, ECT yesterday. remains somatic and dependent. taking lots of PRNs. sleeping and eating well. Mental Status Exam Mental Status Exam Narrative: She is alert, pleasant and cooperative. Speech is normal. good eye contact. Affect is appropriate and contained. anxiety and depression much improved. No acute signs of psychosis. Cognitively impaired. Judgment is impaired Diagnostics Vital Signs (24Hr): Vital Signs - 24 hr 01/01/25 13:31 01/01/25 13:35 01/01/25 13:40 Temperature 99.7 F Pulse Rate 86 75 78 Respiratory Rate 16 16 16 Blood Pressure 182/89 H 173/94 H 161/96 H Pulse Oximetry 99 99 98 Oxygen Delivery Method Nasal Cannula with ETCO2 Nasal Cannula with ETCO2 Nasal Cannula with ETCO2 Oxygen Flow Rate 2 2 2 01/01/25 13:45 01/01/25 14:00 01/01/25 14:10 Temperature 99.5 F 99.5 F Pulse Rate 74 73 72 Respiratory Rate 16 16 16 Blood Pressure 153/81 H 149/81 H 152/67 H Pulse Oximetry 97 95 95 Oxygen Delivery Method Room Air Room Air Room Air Oxygen Flow Rate 01/01/25 14:32 01/01/25 20:00 01/02/25 08:00 Temperature 97.3 F 98.1 F 36.5 F L Pulse Rate 74 87 91 Respiratory Rate 16 18 14 Blood Pressure 162/79 H 137/64 129/66 Pulse Oximetry 98 97 94 Oxygen Delivery Method Room Air Room Air Room Air Oxygen Flow Rate 01/02/25 08:07 01/02/25 08:07 Temperature Pulse Rate Respiratory Rate Blood Pressure 129/66 129/66 Pulse Oximetry Oxygen Delivery Method Oxygen Flow Rate BMI result Body Mass Index 22.8 Labs 11/02/24 20:14 12/20/24 08:43 Labs: Laboratory Results - last 48 hr 12/31/24 12/31/24 01/01/25 16:07 20:36 06:10 POC Glucose 166 H 130 H 186 H 01/01/25 01/01/25 01/01/25 10:35 16:17 20:04 POC Glucose 263 H 184 H 180 H 01/02/25 01/02/25 06:32 11:20 POC Glucose 194 H 259 H Imaging Radiology Impressions: ITS Impressions Hip/Pelvis X-Ray 11/05/24 11:00 IMPRESSION: Unremarkable examination of the left hip. Electronically signed by: Sam Saini MD 11/05/2024 11:13 AM EDT RP KUB X-Ray 11/06/24 09:20 IMPRESSION: Large amount of stool throughout the colon. Electronically signed by: Sam Saini MD 11/06/2024 09:34 AM EDT RP Head CT 11/08/24 14:58 IMPRESSION: Left frontal soft tissue swelling. No acute intracranial abnormality. Electronically signed by: Sam Saini MD 11/08/2024 03:18 PM EDT RP Medications Medications Current Medications Acetaminophen (Acetaminophen 325 Mg Tablet) 650 mg PO Q6H PRN PRN Reason: Headache/Pain, Scale 1-10 Last Admin: 01/01/25 20:40 Dose: 650 mg Al Hydroxide/Mg Hydroxide (Magnesium Hydrox/Alum Hydrox 30 Ml Oral.Susp) 30 ml PO Q6H PRN PRN Reason: Heartburn/Nausea Last Admin: 12/31/24 18:46 Dose: 30 ml Albuterol Sulfate (Albuterol Sulfate (0.083%) 2.5 Mg/3 Ml Vial.Neb) 2.5 mg INHALE ONCE PRN PRN Reason: Shortness of Breath/Wheezing Last Admin: 12/16/24 07:11 Dose: 2.5 mg Albuterol Sulfate (Albuterol Sulfate 90 Mcg 8 Gm Inhaler) 4 puff INHALE Q4H PRN PRN Reason: Shortness Of Breath Or Wheezin Amlodipine Besylate (Amlodipine Besylate 2.5 Mg Tablet) 2.5 mg PO DAILY RICHARD; Protocol Last Admin: 01/02/25 08:07 Dose: 2.5 mg Atorvastatin Calcium (Atorvastatin Calcium 20 Mg Tablet) 20 mg PO DAILY [facility] Last Admin: 01/02/25 08:07 Dose: 20 mg Bisacodyl (Bisacodyl 10 Mg Supp.Rect) 10 mg WI BEDTIME PRN PRN Reason: Constipation Last Admin: 11/04/24 20:37 Dose: 10 mg Bupropion HCl (Bupropion Hcl Xl 300 Mg Tab.Er.24h) 300 mg PO DAILY [facility] Last Admin: 01/02/25 08:07 Dose: 300 mg Buspirone HCl (Buspirone Hcl 10 Mg Tablet) 20 mg PO TID [facility] Last Admin: 01/02/25 08:07 Dose: 20 mg Calcium Carbonate (Calcium Carbonate 750 Mg Tab.Chew) 750 mg PO Q4H PRN PRN Reason: Heartburn Last Admin: 11/30/24 21:34 Dose: 750 mg Clonazepam (Clonazepam Odt 0.125 Mg Tab.Rapdis) 0.125 mg PO BID PRN PRN Reason: severe anxiety Last Admin: 01/01/25 10:00 Dose: 0.125 mg Dicyclomine HCl (Dicyclomine Hcl 10 Mg Capsule) 10 mg PO Q4H PRN PRN Reason: abdominal cramping Last Admin: 12/17/24 13:55 Dose: 10 mg Docusate Sodium (Docusate Sodium 100 Mg Capsule) 100 mg PO BID [facility] Last Admin: 01/02/25 08:08 Dose: 100 mg Duloxetine HCl (Duloxetine Hcl 60 Mg Capsule.Dr) 60 mg PO DAILY [facility] Last Admin: 01/02/25 08:07 Dose: 60 mg Fluticasone/Vilanterol (Fluticasone/Vilanterol 100/25 Blst.W.Dev) 1 puff INHALE RDAILY [facility] Last Admin: 01/02/25 08:06 Dose: 1 puff Glipizide (Glipizide Xl 2.5 Mg Tab.Er.24) 2.5 mg PO DAILY [facility] Last Admin: 01/02/25 08:07 Dose: 2.5 mg Guaifenesin (Guaifenesin La 600 Mg Tab.Er.12h) 1,200 mg PO BID PRN PRN Reason: Cough Last Admin: 12/16/24 14:35 Dose: 1,200 mg Lactated Ringer's (Lr) 1,000 mls @ 50 mls/hr IVCONT .Q20H [facility] Last Admin: 01/02/25 09:24 Dose: Not Given Insulin Human Lispro (Insulin Lispro 100 Unit/Ml 3 Ml Vial) 0 unit SUBCUT TIDAC [facility]; Protocol Last Admin: 01/02/25 11:34 Dose: 6 unit Lisinopril (Lisinopril 2.5 Mg Tablet) 2.5 mg PO DAILY [facility]; Protocol Last Admin: 01/02/25 08:07 Dose: 2.5 mg Magnesium Hydroxide (Milk Of Magnesia 30 Ml Oral.Susp) 30 ml PO DAILY PRN PRN Reason: Constipation Last Admin: 11/04/24 16:49 Dose: 30 ml Mirtazapine (Mirtazapine 30 Mg Tablet) 30 mg PO BEDTIME [facility] Last Admin: 01/01/25 20:41 Dose: 30 mg Naloxone HCl (Naloxone Hcl 0.4 Mg/Ml Vial) 0.04 mg IVPUSH Q5M PRN PRN Reason: Excessive sedation or RR < 8 Omeprazole (Omeprazole 20 Mg Capsule.Dr) 20 mg PO BID@0630,1630 [facility] Last Admin: 01/02/25 06:32 Dose: 20 mg Ondansetron HCl (Ondansetron Odt 4 Mg Tab.Rapdis) 4 mg TRANSLINGU Q4H PRN PRN Reason: Nausea and Vomiting Last Admin: 12/31/24 11:35 Dose: 4 mg Polyethylene Glycol (Polyethylene Glycol 3350 17 Gm Powd.Pack) 17 gm PO BID [facility] Last Admin: 01/02/25 09:24 Dose: Not Given Pramipexole Dihydrochloride (Pramipexole Di-Hcl 0.125 Mg Tablet) 0.125 mg PO DAILY [facility] Last Admin: 01/02/25 08:06 Dose: 0.125 mg Pyridoxine HCl (Pyridoxine Hcl (Vitamin B6) 50 Mg Tablet) 50 mg PO DAILY [facility] Last Admin: 01/02/25 08:06 Dose: 50 mg Ropinirole HCl (Ropinirole Hcl 2 Mg Tablet) 2 mg PO DAILY@1700 [facility] Last Admin: 01/01/25 17:10 Dose: 2 mg Simethicone (Simethicone 80 Mg Tab.Chew) 80 mg PO QIDWMHS [facility] Last Admin: 01/02/25 08:06 Dose: 80 mg Trazodone HCl (Trazodone Hcl 50 Mg Tablet) 50 mg PO BEDTIME MRX1 PRN PRN Reason: Insomnia Last Admin: 01/01/25 20:41 Dose: 50 mg Allergies Allergies Allergy/AdvReac Type Severity Reaction Status Date / Time ampicillin Allergy Rash Verified 10/20/24 19:28 morphine Allergy Rash Verified 10/20/24 19:28 Penicillins Allergy Rash Verified 10/20/24 19:28 pork derived (porcine) Allergy Vomiting Verified 11/10/24 17:49 Assessment & Plan Assessment & Plan (1) MDD (major depressive disorder), recurrent episode, moderate: Status: Acute Code(s): F33.1 - Major depressive disorder, recurrent, moderate (2) 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 Barreto is a 78 year-old woman with hx of MDD who was assessed by N at request of her son who called 911 after pt had reported suicidal ideation with plan to OD. In the ED, pt adamantly denied suicidal ideation but reports feeling increasingly more depressed due to involuntary, ongoing movement of lower extremities. She attributes her depressed mood and increase anxious mood to RLS. She has also been treated as tardive akathisia, note that she was previously prescribed abilify. It is noted that she may have iron deficiency due to normocytic anemia which can exacerbate RLS. It is unclear which medications for hyperkinetic movements of the legs are actually helpful and furthermore it is not easily to differentiate whether it is tardive akathisia or RLS. She has been on psychotropic medications that are known to cause akathisia such as abilify. She reports subjective sense of restlessness. Involuntary movement seems to be throughout the day. We will have to do trial of medications that target akathisia such as propanolol and ativan versus medications such as pramipexol for RLS (note that in RLS there is an initial relief with dopamine agonist but can make it worse over time). In addition, will try iron deficiency as it is an underlying cause and exacerbating factor in RLS. PLAN 11/14 continue tx. will monitor before making substantial changes every day. 11/15 continue tx. pt somatically preoccupied. 11/16: Continue current management and treatment plan. 11/17: continue current management and treatment plan. 11/18 start buspar 10mg po TID for SHEILA. continue all other meds. 11/19 increase buspar 20mg po TID 11/20 appears calmer, less somatically preoccupied. continue current medications. 11/21 sodium stable. continues to present as less dysphoric, calmer. reports of dizziness (VS not hotn nor orthostatic), ?vertigo, will try low dose of meclizine otherwise will consult hospitalist for further management. 8.2- pt more focused on gi issues- and anxiety/forgetfulness- continue to monitor somatic complaints- dc qid poc 11/25 will lowered ropinirole as it may increasing anxiety, noted that buspar was lowered, do not think this medication was causing fogginess as pt appeared much calmer since we added buspar. She was started on low dose clonazepam. 11/26 continue tx. received one time dose xanax, but reported feeling overly sedated (although did not appear sedated) 11/27 somatically p8/: Continue current regimen and plansreoccupied, no change in medications. 11/29 continue tx. 11/30: Continue current regimen and plans 12/01: Continue current plans and regimen 12/02 increase buspar 20mg po TID. 12/03: reports depression not improving, c/o feeling low energy and motivation, saying she needs a strip picker. start wellbutrin XL 150 daily tomorrow for depression. also c/o anxiety-provoking and nocturnally loud peer. schedule klonopin 0.25 QHS for insomnia. otherwise continue current mgmt. awaiting placement. 12/04: slept well last night, started wellbutrin this morning without incident. continue current mgmt. will be discharging to [facility]. 12/05: slept well. c/o anxiety at 3-330 in the afternoon. pt to ask for klonopin PRN at 2-230. trend anxiety, T/C DC of wellbutrin if anxiety seems reliably increased since starting it. dispo next week likely. 12/06: anxious. schedule klonopin 0.25 mg Qdaily at 1430 per pt request. otherwise continue current mgmt. 12/07: anxious and depressed. c/o insomnia. will give wellbutrin a few more days to see if insomnia subsides and mood improves. per staf, stable and uneventful presentation. 12/08: depressed. agreeable to increase wellbutrin to 300 mg as of tomorrow. otherwise continue current mgmt. sleeping well. 12/09: started wellbutrin 300 today. c/o URI Sx, start guaifenesin. otherwise continue current mgmt. 12/10: coughin much eves/NOC per staff. pt c/o not happy, cough, and poor sleep. continue mucinex and mental health Tx plan otherwise. 12/11/24: Patient appeared to slept for 8 hours, was medication compliant but refused the MiraLax. Denies side effects. She is observed watching TV in common area. Reported that she feel anxious and depressed. She is worry about when she is leaving as she is going to stay by herself. I am depressed . Self reports that she did not sleep well last night as roommate waking her up at night telling her that she saw dogs. She reports normal stomach pain. She would hope to see the GI doctor after discharge. She reported that she will be discharged on 12/17 but not sure the name of the facility or where it is located. Denies safety concerns, denies hallucinations. No coughing observed this morning. 12/12: c/o unremitting depression, saying she does not want to live like this. interested in ECT, educated re the procedure. obtain risk strat and EKG, discuss in rounds tomorrow morning. otherwise continue current mgmt. 12/13: continues to push for ECT. seen by hospitalist, no relative contraindications to the procedure. case d/w patient's daughter chantelle as well, who avers that pt has been in this state for a long time, it's only getting worse, and medications have not been helpful. johanna supports this trial on the wishes of her mother and MD's recommendation. ECT ordered, will get pt on the schedule as soon as possible. 12/14: Cough-productive, O2 sats are lower , CXR positive. Seen by hospitalist. Antibiotics initiated, R/O pneumonia 12/15: Pt unable to tolerate doxycycline. Hospitalist will change to Ceftin. 12/16: ECT held today due to januvia and respiratory virus. mood slightly improved. plan for weds ECT. 12/17: COVID and flu NEG. c/o nausea, exacerbation of chronic condition, h/o gastroparesis. holding januvia. start reglan for gastroparesis. continue current mgmt otherwise. NPO past MN for ECT tomorrow. 12/18: awaiting med clearance for ECT. planning for ECT monday. otherwise continue current mgmt. glucose noted to be elevated since holding januvia the past several days. 12/19 continue current medications. pt hopefull will have ECT tomorrow. NPO from midnight. 12/20 continue tx. Had ECT #1 no complications noted or reported. 12/21:Continue ECT. 12/22: Increase Klonopin PRN to BID. Otherwise continue current management and treatment plan. 12/23: continue current management and treatment plan. 12/24 continue tx. ECT tomorrow, NPO after midnight. 12/25 continue tx. 12/26: ECT #3 completed today. pleasant, feeling improved. Sz duration longer than prior but remains suboptimal. will DC gabapentin and decrease PRN klonopin to 0.125 mg per dose. next ECT monday. continue current mgmt otherwise. 12/28 Patient says she is all right and no complaints other than restless leg/akathisia which she says is bothering her. Discussed ECT and patient says she wants to continue getting ECT which she thinks is helpful and is why she wants to remain inpatient. Lead Radiologic Technologist agreed to: -order extra ropinrile 1mg daily prn 12/29Patient says she is so-so and Continues to have akathisia; patient benefitted somewhat from propranolol, which is preferable to increasing ropinirole (BP these mildly hypertensive; regular heart rate). Review of chart and patient was started on metoclopramide for diabetic gastroparesis. Discussed with patient who agrees to lowering metoclopramide; will increase propranolol and DC p.r.n. ropinirole -lower metoclopramide to 3 mg t.i.d. a.c.; (no N/V or constipation) -increase to propranolol 10 mg t.i.d. p.r.n. for restless leg -DC extra p.r.n. ropinirole 12/30: c/o restless legs. notes reviewed on the subject, plan noted. had ECT today, believes she is only having one more. anxiety Sx appear worse than prior, difficult to assess mood under the circumstances. continue current mgmt for now. 12/31: reglan DCed but still c/o RLS. requip Rx noted. ECT tomorrow. i don't feel down. NPO past MN, otherwise continue current mgmt. 01/01: stable, depression/anxiety lessened. awaiting ECT today. c/o RLS, plan to restart gabapentin after ECT course is finished. continue current mgmt otherwise. 01/02: appears more affectively flexible. reports mood OK. no somatic complaints or requests of MD. would like tomorrow's ECT, #6, to be her final of the series. continue current mgmt for now. NPO past MN. Reason for continued inpatient stay Substantial Risk for: inability to function and rapid decompensation Time Spent With Patient Time: Total time managing care of this patient today __25__ minutes.
[2025-01-02 16:24] LABS: Glucose, Whole Blood 103 mg/dL (60-115)
[2025-01-03] VITALS (10 sets, daily range): BP systolic 124–193; BP diastolic 58–99; PULSE 70–86; RESP 16–18; TEMP 36.1–36.6; O2SAT 94–98
--- NOTE | 2025-01-03 07:00 | HO.ANESPROP2 ---
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 (Acute) Hyponatremia (Acute) Fall (Acute) Constipation (Acute) Forehead laceration (Acute) Diabetes (Acute) RLS (restless legs syndrome) (Acute) MDD (major depressive disorder), recurrent episode, moderate (Acute) Gastroparesis (Acute) Anxiety (Acute) Past Medical History Medical History Tension headache Peripheral neuropathy Akathisia Cerebral microvascular disease RLS (restless legs syndrome) Migraines Diabetes Hypertension Anxiety Functional capacity: independent ambulation Family History Family history of problems with anesthesia: No Surgical History History of Problems with Anesthesia: No Social History Social History Household Members: None Housing: House Do you presently have visiting nurse or other home services: Yes Patient Tobacco Use Status: Never used Tobacco Currently Displaying Signs/Symptoms of Drug Intoxication Withdrawal: No Have you been hit, kicked, punched, or otherwise hurt by someone within the past year? If so, by whom?: No Do you feel safe in your current relationship?: No Current Relationship Is there a partner from a previous relationship who is making you feel unsafe now?: No Are you made to feel afraid or neglected: No Spiritual Healthcare Practices: meditation and breathing Advance Directives: No Advance Directives Information Provided: No Do you have thoughts of harming others: None Do you have a plan to hurt others: No Plan Recently lost weight without trying: No Eating poorly because of decreased appetite: No Nutrition Risks: No Nutritional Risk Patient : No : No Poor oral hygiene: No service: No Sexual orientation: Straight/Heterosexual Meds Allergies Allergy/AdvReac Type Severity Reaction Status Date / Time ampicillin Allergy Rash Verified 10/20/24 19:28 morphine Allergy Rash Verified 10/20/24 19:28 Penicillins Allergy Rash Verified 10/20/24 19:28 pork derived (porcine) Allergy Vomiting Verified 11/10/24 17:49 Active Medications: Current Medications Acetaminophen (Acetaminophen 325 Mg Tablet) 650 mg PO Q6H PRN PRN Reason: Headache/Pain, Scale 1-10 Last Admin: 01/01/25 20:40 Dose: 650 mg Al Hydroxide/Mg Hydroxide (Magnesium Hydrox/Alum Hydrox 30 Ml Oral.Susp) 30 ml PO Q6H PRN PRN Reason: Heartburn/Nausea Last Admin: 12/31/24 18:46 Dose: 30 ml Albuterol Sulfate (Albuterol Sulfate (0.083%) 2.5 Mg/3 Ml Vial.Neb) 2.5 mg INHALE ONCE PRN PRN Reason: Shortness of Breath/Wheezing Last Admin: 12/16/24 07:11 Dose: 2.5 mg Albuterol Sulfate (Albuterol Sulfate 90 Mcg 8 Gm Inhaler) 4 puff INHALE Q4H PRN PRN Reason: Shortness Of Breath Or Wheezin Amlodipine Besylate (Amlodipine Besylate 2.5 Mg Tablet) 2.5 mg PO DAILY [facility]; Protocol Last Admin: 01/02/25 08:07 Dose: 2.5 mg Atorvastatin Calcium (Atorvastatin Calcium 20 Mg Tablet) 20 mg PO DAILY [facility] [place] Last Admin: 01/02/25 08:07 Dose: 20 mg Bisacodyl (Bisacodyl 10 Mg Supp.Rect) 10 mg FL BEDTIME PRN PRN Reason: Constipation Last Admin: 11/04/24 20:37 Dose: 10 mg Bupropion HCl (Bupropion Hcl Xl 300 Mg Tab.Er.24h) 300 mg PO DAILY [facility] [place] Last Admin: 01/02/25 08:07 Dose: 300 mg Buspirone HCl (Buspirone Hcl 10 Mg Tablet) 20 mg PO TID [facility] [place] Last Admin: 01/02/25 21:20 Dose: 20 mg Calcium Carbonate (Calcium Carbonate 750 Mg Tab.Chew) 750 mg PO Q4H PRN PRN Reason: Heartburn Last Admin: 11/30/24 21:34 Dose: 750 mg Clonazepam (Clonazepam Odt 0.125 Mg Tab.Rapdis) 0.125 mg PO BID PRN PRN Reason: severe anxiety Last Admin: 01/01/25 10:00 Dose: 0.125 mg Dicyclomine HCl (Dicyclomine Hcl 10 Mg Capsule) 10 mg PO Q4H PRN PRN Reason: abdominal cramping Last Admin: 12/17/24 13:55 Dose: 10 mg Docusate Sodium (Docusate Sodium 100 Mg Capsule) 100 mg PO BID [facility] [place] Last Admin: 01/02/25 21:20 Dose: 100 mg Duloxetine HCl (Duloxetine Hcl 60 Mg Capsule.) 60 mg PO DAILY [facility] [place] Last Admin: 01/02/25 08:07 Dose: 60 mg Fluticasone/Vilanterol (Fluticasone/Vilanterol 100/25 Blst.W.Dev) 1 puff INHALE RDAILY [facility] [place] Last Admin: 01/02/25 08:06 Dose: 1 puff Glipizide (Glipizide Xl 2.5 Mg Tab.Er.24) 2.5 mg PO DAILY [facility] [place] Last Admin: 01/02/25 08:07 Dose: 2.5 mg Guaifenesin (Guaifenesin [place] 600 Mg Tab.Er.12h) 1,200 mg PO BID PRN PRN Reason: Cough Last Admin: 12/16/24 14:35 Dose: 1,200 mg Lactated Ringer's (Lr) 1,000 mls @ 50 mls/hr IVCONT .Q20H [facility] [place] Last Admin: 01/02/25 09:24 Dose: Not Given Lactated Ringer's (Lr) 1,000 mls @ 50 mls/hr IVCONT .Q20H [facility] [place] Insulin Human Lispro (Insulin Lispro 100 Unit/Ml 3 Ml Vial) 0 unit SUBCUT TIDAC [facility] [place]; Protocol Last Admin: 01/02/25 17:07 Dose: Not Given Lisinopril (Lisinopril 2.5 Mg Tablet) 2.5 mg PO DAILY [facility] [place]; Protocol Last Admin: 01/02/25 08:07 Dose: 2.5 mg Magnesium Hydroxide (Milk Of Magnesia 30 Ml Oral.Susp) 30 ml PO DAILY PRN PRN Reason: Constipation Last Admin: 11/04/24 16:49 Dose: 30 ml Mirtazapine (Mirtazapine 30 Mg Tablet) 30 mg PO BEDTIME [facility] [place] Last Admin: 01/02/25 21:19 Dose: 30 mg Naloxone HCl (Naloxone Hcl 0.4 Mg/Ml Vial) 0.04 mg IVPUSH Q5M PRN PRN Reason: Excessive sedation or RR < 8 Omeprazole (Omeprazole 20 Mg Capsule.) 20 mg PO BID@0630,1630 [facility] [place] Last Admin: 01/02/25 16:54 Dose: 20 mg Ondansetron HCl (Ondansetron Odt 4 Mg Tab.Rapdis) 4 mg TRANSLINGU Q4H PRN PRN Reason: Nausea and Vomiting Last Admin: 12/31/24 11:35 Dose: 4 mg Polyethylene Glycol (Polyethylene Glycol 3350 17 Gm Powd.Pack) 17 gm PO BID [facility] [place] Last Admin: 01/02/25 21:20 Dose: Not Given Pramipexole Dihydrochloride (Pramipexole Di-Hcl 0.125 Mg Tablet) 0.125 mg PO DAILY [facility] [place] Last Admin: 01/02/25 08:06 Dose: 0.125 mg Pyridoxine HCl (Pyridoxine Hcl (Vitamin B6) 50 Mg Tablet) 50 mg PO DAILY [facility] [place] Last Admin: 01/02/25 08:06 Dose: 50 mg Ropinirole HCl (Ropinirole Hcl 2 Mg Tablet) 2 mg PO DAILY@1700 [facility] [place] Last Admin: 01/02/25 16:54 Dose: 2 mg Simethicone (Simethicone 80 Mg Tab.Chew) 80 mg PO QIDWMHS [facility] [place] Last Admin: 01/02/25 21:19 Dose: 80 mg Trazodone HCl (Trazodone Hcl 50 Mg Tablet) 50 mg PO BEDTIME MRX1 PRN PRN Reason: Insomnia Last Admin: 01/01/25 20:41 Dose: 50 mg Home Medications ?Medication ?Instructions ?Recorded ?Confirmed ?Last Taken ?Type atorvastatin 20 mg tablet 20 mg PO DAILY 04/01/23 10/21/24 03/31/23 21:00 History ondansetron HCl 4 mg tablet 4 mg PO Q8H PRN nausea 04/01/23 10/21/24 03/31/23 21:00 History pantoprazole 40 mg tablet,delayed 40 mg PO BID@0630,1630 04/01/23 10/21/24 03/31/23 21:00 History release sitagliptin phosphate 100 mg 100 mg PO DAILY 04/01/23 10/21/24 03/31/23 21:00 History tablet (Januvia) albuterol sulfate 90 mcg/actuation 2 puff inhalation Q4-6H PRN 10/21/24 10/21/24 Unknown History aerosol inhaler Shortness Of Breath Or Wheezing amlodipine 2.5 mg tablet 2.5 mg PO DAILY 10/21/24 10/21/24 Unknown History duloxetine 20 mg capsule,delayed 40 mg PO DAILY 10/21/24 10/21/24 Unknown History release fluticasone furoate 100 1 ea inhalation DAILY 10/21/24 10/21/24 Unknown History mcg-vilanterol 25 mcg/dose inhalation powder (Breo Ellipta) gabapentin 100 mg capsule 100 mg PO TID 10/21/24 10/21/24 Unknown History gabapentin 600 mg tablet 600 mg PO BEDTIME 10/21/24 10/21/24 Unknown History glipizide 2.5 mg tablet, extended 2.5 mg PO DAILY 10/21/24 10/21/24 Unknown History release 24 hr lamotrigine 100 mg tablet 100 mg PO DAILY 10/21/24 10/21/24 Unknown History lisinopril 20 mg tablet 20 mg PO DAILY 10/21/24 10/21/24 Unknown History lorazepam 0.5 mg tablet 0.25 mg PO BID 10/21/24 10/21/24 Unknown History mirtazapine 45 mg tablet 45 mg PO BEDTIME 10/21/24 10/21/24 Unknown History olanzapine 2.5 mg tablet 2.5 mg PO BEDTIME 10/21/24 10/21/24 Unknown History pramipexole 0.25 mg tablet 0.25 mg PO BID 10/21/24 10/21/24 Unknown History propranolol 20 mg tablet 20 mg PO DAILY 10/21/24 10/21/24 Unknown History Exam Height,Weight and Vital Signs: Height 4 ft 10 in Weight 49.442 kg Last Vital Signs Temp 97 F 01/03/25 06:33 Pulse 83 01/03/25 06:33 Resp 18 01/03/25 06:33 BP 130/68 01/03/25 06:33 Pulse Ox 97 01/03/25 06:33 O2 Del Method Room Air 01/03/25 06:33 O2 Flow Rate 2 01/01/25 13:40 Pertinent Lab Results Pertinent Lab Results: Laboratory Tests 10/20/24 10/20/24 10/22/24 19:59 21:45 07:23 WBC 7.6 RBC 3.65 L Hgb 10.8 L Hct 31.3 L MCV 85.8 MCH 29.6 MCHC 34.5 RDW 13.6 Plt Count 213 MPV 8.7 L Immature Gran % (Auto) 0.3 Neut % (Auto) 58.4 Lymph % (Auto) 29.8 [place] % (Auto) 9.9 Eos % (Auto) 1.1 Baso % (Auto) 0.5 Lymph # (Auto) 2.3 [place] # (Auto) 0.8 Eos # (Auto) 0.1 Baso # (Auto) 0.0 Abs Immat Gran (auto) 0.02 Absolute Neuts (auto) 4.4 Absolute Nucleated RBC 0.000 Nucleated RBC % (auto) 0.0 Smear Tech's Comments Hold Purple Top VBG pH VBG pCO2 VBG pO2 VBG HCO3 VBG O2 Saturation VBG Base Excess Sodium 140 142 Potassium 4.2 4.6 Chloride 108 108 Carbon Dioxide 23 23 Anion Gap 13 16 BUN 33 H 22 H Creatinine 1.15 1.09 Estim Creat Clear Calc 26.9 30.7 Estimated GFR 46 49 POC Glucose Random Glucose 96 204 H Estimat Average Glucose 160 Hemoglobin A1c % 7.2 H Osmolality Lactic Acid Calcium 9.3 9.6 Magnesium Iron TIBC % Saturation Unsat Iron Binding Total Bilirubin 0.5 AST 21 ALT 25 Alkaline Phosphatase 67 Total Protein 7.4 Albumin 4.9 Triglycerides 102 Cholesterol 148 LDL Cholesterol, Calc 68 HDL Cholesterol 60 Lipase TSH 2.14 Free T4 1.15 Urine Color Yellow Urine Appearance Clear Urine pH 7.0 Ur Specific [place] 1.010 Urine Protein Negative Urine Glucose (UA) Negative Urine Ketones Negative Urine Blood Negative Urine Nitrite Negative Ur Leukocyte Esterase Large (3+) H Urine RBC 0-2 Urine WBC 21-50 H Ur Squamous Epith Cells 0-2 Urine Bacteria Trace Hyaline Casts 0-2 Urine Osmolality Ur Random Sodium Urine Opiates Screen POSITIVE H Ur Buprenorphine Scrn Not Detected Ur Oxycodone Screen Not Detected Urine Methadone Screen Not Detected Urine Fentanyl Screen Not Detected Ur Barbiturates Screen Not Detected Carbamazepine Ur Phencyclidine Scrn Not Detected Ur Amphetamines Screen Not Detected U Benzodiazepines Scrn Not Detected Urine Cocaine Screen Not Detected U Marijuana (THC) Screen Not Detected COVID-19 ([facility]) COVID-19 Clin Com Influenza Type A (AMANDA) Influenza Type B (AMANDA) Influenza A & B Note TB Test (T-Spot) Com TB Test Nil Control TB Test Panel A TB Test Panel B TB Test Positive Cntrl 10/23/24 10/23/24 10/23/24 15:19 15:20 16:31 WBC 6.4 RBC 4.03 L Hgb 11.8 L Hct 34.7 L MCV 86.1 MCH 29.3 MCHC 34.0 RDW 13.6 Plt Count 221 MPV 9.8 Immature Gran % (Auto) 0.3 Neut % (Auto) 64.6 Lymph % (Auto) 23.0 [place] % (Auto) 10.4 Eos % (Auto) 1.2 Baso % (Auto) 0.5 Lymph # (Auto) 1.5 [place] # (Auto) 0.7 Eos # (Auto) 0.1 Baso # (Auto) 0.0 Abs Immat Gran (auto) 0.02 Absolute Neuts (auto) 4.2 Absolute Nucleated RBC 0.000 Nucleated RBC % (auto) 0.0 Smear Tech's Comments VERIFIED Hold Purple Top VBG pH VBG pCO2 VBG pO2 VBG HCO3 VBG O2 Saturation VBG Base Excess Sodium 137 Potassium 4.5 Chloride 104 Carbon Dioxide 24 Anion Gap 14 BUN 26 H Creatinine 1.02 Estim Creat Clear Calc 32.8 Estimated GFR 53 POC Glucose 132 H Random Glucose 158 H Estimat Average Glucose Hemoglobin A1c % Osmolality Lactic Acid Calcium 9.3 Magnesium Iron TIBC % Saturation Unsat Iron Binding Total Bilirubin AST ALT Alkaline Phosphatase Total Protein Albumin Triglycerides Cholesterol LDL Cholesterol, Calc HDL Cholesterol Lipase TSH Free T4 Urine Color Urine Appearance Urine pH Ur Specific [place] Urine Protein Urine Glucose (UA) Urine Ketones Urine Blood Urine Nitrite Ur Leukocyte Esterase Urine RBC Urine WBC Ur Squamous Epith Cells Urine Bacteria Hyaline Casts Urine Osmolality Ur Random Sodium Urine Opiates Screen Ur Buprenorphine Scrn Ur Oxycodone Screen Urine Methadone Screen Urine Fentanyl Screen Ur Barbiturates Screen Carbamazepine Ur Phencyclidine Scrn Ur Amphetamines Screen U Benzodiazepines Scrn Urine Cocaine Screen U Marijuana (THC) Screen COVID-19 ([facility]) COVID-19 Clin Com Influenza Type A (AMANDA) Influenza Type B (AMANDA) Influenza A & B Note TB Test (T-Spot) Com TB Test Nil Control TB Test Panel A TB Test Panel B TB Test Positive Cntrl 10/24/24 10/24/24 10/24/24 06:51 11:08 12:19 WBC RBC Hgb Hct MCV MCH MCHC RDW Plt Count MPV Immature Gran % (Auto) Neut % (Auto) Lymph % (Auto) [place] % (Auto) Eos % (Auto) Baso % (Auto) Lymph # (Auto) [place] # (Auto) Eos # (Auto) Baso # (Auto) Abs Immat Gran (auto) Absolute Neuts (auto) Absolute Nucleated RBC Nucleated RBC % (auto) Smear Tech's Comments Hold Purple Top VBG pH VBG pCO2 VBG pO2 VBG HCO3 VBG O2 Saturation VBG Base Excess Sodium Potassium Chloride Carbon Dioxide Anion Gap BUN Creatinine Estim Creat Clear Calc Estimated GFR POC Glucose 204 H 95 Random Glucose Estimat Average Glucose Hemoglobin A1c % Osmolality Lactic Acid Calcium Magnesium Iron 65 TIBC 216 L % Saturation 30 Unsat Iron Binding 151 Total Bilirubin AST ALT Alkaline Phosphatase Total Protein Albumin Triglycerides Cholesterol LDL Cholesterol, Calc HDL Cholesterol Lipase TSH Free T4 Urine Color Urine Appearance Urine pH Ur Specific [place] Urine Protein Urine Glucose (UA) Urine Ketones Urine Blood Urine Nitrite Ur Leukocyte Esterase Urine RBC Urine WBC Ur Squamous Epith Cells Urine Bacteria Hyaline Casts Urine Osmolality Ur Random Sodium Urine Opiates Screen Ur Buprenorphine Scrn Ur Oxycodone Screen Urine Methadone Screen Urine Fentanyl Screen Ur Barbiturates Screen Carbamazepine Ur Phencyclidine Scrn Ur Amphetamines Screen U Benzodiazepines Scrn Urine Cocaine Screen U Marijuana (THC) Screen COVID-19 ([facility]) COVID-19 Clin Com Influenza Type A (AMANDA) Influenza Type B (AMANDA) Influenza A & B Note TB Test (T-Spot) Com TB Test Nil Control TB Test Panel A TB Test Panel B TB Test Positive Cntrl 10/24/24 10/25/24 10/25/24 16:06 05:55 11:15 WBC RBC Hgb Hct MCV MCH MCHC RDW Plt Count MPV Immature Gran % (Auto) Neut % (Auto) Lymph % (Auto) [place] % (Auto) Eos % (Auto) Baso % (Auto) Lymph # (Auto) [place] # (Auto) Eos # (Auto) Baso # (Auto) Abs Immat Gran (auto) Absolute Neuts (auto) Absolute Nucleated RBC Nucleated RBC % (auto) Smear Tech's Comments Hold Purple Top VBG pH VBG pCO2 VBG pO2 VBG HCO3 VBG O2 Saturation VBG Base Excess Sodium Potassium Chloride Carbon Dioxide Anion Gap BUN Creatinine Estim Creat Clear Calc Estimated GFR POC Glucose 142 H 190 H 177 H Random Glucose Estimat Average Glucose Hemoglobin A1c % Osmolality Lactic Acid Calcium Magnesium Iron TIBC % Saturation Unsat Iron Binding Total Bilirubin AST ALT Alkaline Phosphatase Total Protein Albumin Triglycerides Cholesterol LDL Cholesterol, Calc HDL Cholesterol Lipase TSH Free T4 Urine Color Urine Appearance Urine pH Ur Specific [place] Urine Protein Urine Glucose (UA) Urine Ketones Urine Blood Urine Nitrite Ur Leukocyte Esterase Urine RBC Urine WBC Ur Squamous Epith Cells Urine Bacteria Hyaline Casts Urine Osmolality Ur Random Sodium Urine Opiates Screen Ur Buprenorphine Scrn Ur Oxycodone Screen Urine Methadone Screen Urine Fentanyl Screen Ur Barbiturates Screen Carbamazepine Ur Phencyclidine Scrn Ur Amphetamines Screen U Benzodiazepines Scrn Urine Cocaine Screen U Marijuana (THC) Screen COVID-19 ([facility]) COVID-19 Clin Com Influenza Type A (AMANDA) Influenza Type B (AMANDA) Influenza A & B Note TB Test (T-Spot) Com TB Test Nil Control TB Test Panel A TB Test Panel B TB Test Positive [facility] 10/25/24 10/26/24 10/26/24 16:33 07:05 10:57 WBC RBC Hgb Hct MCV MCH MCHC RDW Plt Count MPV Immature Gran % (Auto) Neut % (Auto) Lymph % (Auto) [place] % (Auto) Eos % (Auto) Baso % (Auto) Lymph # (Auto) [place] # (Auto) Eos # (Auto) Baso # (Auto) Abs Immat Gran (auto) Absolute Neuts (auto) Absolute Nucleated RBC Nucleated RBC % (auto) Smear Tech's Comments Hold Purple Top VBG pH VBG pCO2 VBG pO2 VBG HCO3 VBG O2 Saturation VBG Base Excess Sodium Potassium Chloride Carbon Dioxide Anion Gap BUN Creatinine Estim Creat Clear Calc Estimated GFR POC Glucose 170 H 185 H 189 H Random Glucose Estimat Average Glucose Hemoglobin A1c % Osmolality Lactic Acid Calcium Magnesium Iron TIBC % Saturation Unsat Iron Binding Total Bilirubin AST ALT Alkaline Phosphatase Total Protein Albumin Triglycerides Cholesterol LDL Cholesterol, Calc HDL Cholesterol Lipase TSH Free T4 Urine Color Urine Appearance Urine pH Ur Specific [place] Urine Protein Urine Glucose (UA) Urine Ketones Urine Blood Urine Nitrite Ur Leukocyte Esterase Urine RBC Urine WBC Ur Squamous Epith Cells Urine Bacteria Hyaline Casts Urine Osmolality Ur Random Sodium Urine Opiates Screen Ur Buprenorphine Scrn Ur Oxycodone Screen Urine Methadone Screen Urine Fentanyl Screen Ur Barbiturates Screen Carbamazepine Ur Phencyclidine Scrn Ur Amphetamines Screen U Benzodiazepines Scrn Urine Cocaine Screen U Marijuana (THC) Screen COVID-19 ([facility]) COVID-19 Clin Com Influenza Type A (AMANDA) Influenza Type B (AMANDA) Influenza A & B Note TB Test (T-Spot) Com TB Test Nil Control TB Test Panel A TB Test Panel B TB Test Positive [facility] 10/26/24 10/27/24 10/27/24 16:19 06:45 11:24 WBC RBC Hgb Hct MCV MCH MCHC RDW Plt Count MPV Immature Gran % (Auto) Neut % (Auto) Lymph % (Auto) [place] % (Auto) Eos % (Auto) Baso % (Auto) Lymph # (Auto) [place] # (Auto) Eos # (Auto) Baso # (Auto) Abs Immat Gran (auto) Absolute Neuts (auto) Absolute Nucleated RBC Nucleated RBC % (auto) Smear Tech's Comments Hold Purple Top VBG pH VBG pCO2 VBG pO2 VBG HCO3 VBG O2 Saturation VBG Base Excess Sodium Potassium Chloride Carbon Dioxide Anion Gap BUN Creatinine Estim Creat Clear Calc Estimated GFR POC Glucose 170 H 215 H 117 H Random Glucose Estimat Average Glucose Hemoglobin A1c % Osmolality Lactic Acid Calcium Magnesium Iron TIBC % Saturation Unsat Iron Binding Total Bilirubin AST ALT Alkaline Phosphatase Total Protein Albumin Triglycerides Cholesterol LDL Cholesterol, Calc HDL Cholesterol Lipase TSH Free T4 Urine Color Urine Appearance Urine pH Ur Specific [place] Urine Protein Urine Glucose (UA) Urine Ketones Urine Blood Urine Nitrite Ur Leukocyte Esterase Urine RBC Urine WBC Ur Squamous Epith Cells Urine Bacteria Hyaline Casts Urine Osmolality Ur Random Sodium Urine Opiates Screen Ur Buprenorphine Scrn Ur Oxycodone Screen Urine Methadone Screen Urine Fentanyl Screen Ur Barbiturates Screen Carbamazepine Ur Phencyclidine Scrn Ur Amphetamines Screen U Benzodiazepines Scrn Urine Cocaine Screen U Marijuana (THC) Screen COVID-19 ([facility]) COVID-19 Clin Com Influenza Type A (AMANDA) Influenza Type B (AMANDA) Influenza A & B Note TB Test (T-Spot) Com TB Test Nil Control TB Test Panel A TB Test Panel B TB Test Positive Cnt 10/27/24 10/28/24 10/28/24 16:14 06:32 10:50 WBC RBC Hgb Hct MCV MCH MCHC RDW Plt Count MPV Immature Gran % (Auto) Neut % (Auto) Lymph % (Auto) [place] % (Auto) Eos % (Auto) Baso % (Auto) Lymph # (Auto) [place] # (Auto) Eos # (Auto) Baso # (Auto) Abs Immat Gran (auto) Absolute Neuts (auto) Absolute Nucleated RBC Nucleated RBC % (auto) Smear Tech's Comments Hold Purple Top VBG pH VBG pCO2 VBG pO2 VBG HCO3 VBG O2 Saturation VBG Base Excess Sodium Potassium Chloride Carbon Dioxide Anion Gap BUN Creatinine Estim Creat Clear Calc Estimated GFR POC Glucose 156 H 195 H 288 H Random Glucose Estimat Average Glucose Hemoglobin A1c % Osmolality Lactic Acid Calcium Magnesium Iron TIBC % Saturation Unsat Iron Binding Total Bilirubin AST ALT Alkaline Phosphatase Total Protein Albumin Triglycerides Cholesterol LDL Cholesterol, Calc HDL Cholesterol Lipase TSH Free T4 Urine Color Urine Appearance Urine pH Ur Specific [place] Urine Protein Urine Glucose (UA) Urine Ketones Urine Blood Urine Nitrite Ur Leukocyte Esterase Urine RBC Urine WBC Ur Squamous Epith Cells Urine Bacteria Hyaline Casts Urine Osmolality Ur Random Sodium Urine Opiates Screen Ur Buprenorphine Scrn Ur Oxycodone Screen Urine Methadone Screen Urine Fentanyl Screen Ur Barbiturates Screen Carbamazepine Ur Phencyclidine Scrn Ur Amphetamines Screen U Benzodiazepines Scrn Urine Cocaine Screen U Marijuana (THC) Screen COVID-19 ([facility]) COVID-19 Clin Com Influenza Type A (AMANDA) Influenza Type B (AMANDA) Influenza A & B Note TB Test (T-Spot) Com TB Test Nil Control TB Test Panel A TB Test Panel B TB Test Positive Cntrl 10/28/24 10/28/24 10/29/24 15:54 20:28 06:47 WBC RBC Hgb Hct MCV MCH MCHC RDW Plt Count MPV Immature Gran % (Auto) Neut % (Auto) Lymph % (Auto) [place] % (Auto) Eos % (Auto) Baso % (Auto) Lymph # (Auto) [place] # (Auto) Eos # (Auto) Baso # (Auto) Abs Immat Gran (auto) Absolute Neuts (auto) Absolute Nucleated RBC Nucleated RBC % (auto) Smear Tech's Comments Hold Purple Top VBG pH VBG pCO2 VBG pO2 VBG HCO3 VBG O2 Saturation VBG Base Excess Sodium Potassium Chloride Carbon Dioxide Anion Gap BUN Creatinine Estim Creat Clear Calc Estimated GFR POC Glucose 132 H 210 H 188 H Random Glucose Estimat Average Glucose Hemoglobin A1c % Osmolality Lactic Acid Calcium Magnesium Iron TIBC % Saturation Unsat Iron Binding Total Bilirubin AST ALT Alkaline Phosphatase Total Protein Albumin Triglycerides Cholesterol LDL Cholesterol, Calc HDL Cholesterol Lipase TSH Free T4 Urine Color Urine Appearance Urine pH Ur Specific [place] Urine Protein Urine Glucose (UA) Urine Ketones Urine Blood Urine Nitrite Ur Leukocyte Esterase Urine RBC Urine WBC Ur Squamous Epith Cells Urine Bacteria Hyaline Casts Urine Osmolality Ur Random Sodium Urine Opiates Screen Ur Buprenorphine Scrn Ur Oxycodone Screen Urine Methadone Screen Urine Fentanyl Screen Ur Barbiturates Screen Carbamazepine Ur Phencyclidine Scrn Ur Amphetamines Screen U Benzodiazepines Scrn Urine Cocaine Screen U Marijuana (THC) Screen COVID-19 ([facility]ES[facility]) COVID-19 Clin Com Influenza Type A (AMANDA) Influenza Type B (AMANDA) Influenza A & B Note TB Test (T-Spot) Com TB Test Nil Control TB Test Panel A TB Test Panel B TB Test Positive Cntrl 10/29/24 10/29/24 10/29/24 11:16 15:42 16:24 WBC 11.0 H RBC 3.49 L Hgb 10.4 L Hct 29.9 L MCV 85.7 MCH 29.8 MCHC 34.8 RDW 13.7 Plt Count 271 MPV 8.8 L Immature Gran % (Auto) 0.5 H Neut % (Auto) 71.9 Lymph % (Auto) 14.5 L [place] % (Auto) 11.9 H Eos % (Auto) 0.7 Baso % (Auto) 0.5 Lymph # (Auto) 1.6 [place] # (Auto) 1.3 H Eos # (Auto) 0.1 Baso # (Auto) 0.1 Abs Immat Gran (auto) 0.05 H Absolute Neuts (auto) 7.9 Absolute Nucleated RBC 0.000 Nucleated RBC % (auto) 0.0 Smear Tech's Comments Hold Purple Top VBG pH VBG pCO2 VBG pO2 VBG HCO3 VBG O2 Saturation VBG Base Excess Sodium 133 L Potassium 4.7 Chloride 102 Carbon Dioxide 24 Anion Gap 12 BUN 39 H Creatinine 1.24 Estim Creat Clear Calc 27.3 Estimated GFR 42 POC Glucose 265 H 156 H Random Glucose 180 H Estimat Average Glucose Hemoglobin A1c % Osmolality Lactic Acid Calcium 8.9 Magnesium Iron TIBC % Saturation Unsat Iron Binding Total Bilirubin 0.4 AST 15 ALT 21 Alkaline Phosphatase 67 Total Protein 6.4 L Albumin 4.1 Triglycerides Cholesterol LDL Cholesterol, Calc HDL Cholesterol Lipase TSH Free T4 Urine Color Urine Appearance Urine pH Ur Specific [place] Urine Protein Urine Glucose (UA) Urine Ketones Urine Blood Urine Nitrite Ur Leukocyte Esterase Urine RBC Urine WBC Ur Squamous Epith Cells Urine Bacteria Hyaline Casts Urine Osmolality Ur Random Sodium Urine Opiates Screen Ur Buprenorphine Scrn Ur Oxycodone Screen Urine Methadone Screen Urine Fentanyl Screen Ur Barbiturates Screen Carbamazepine Ur Phencyclidine Scrn Ur Amphetamines Screen U Benzodiazepines Scrn Urine Cocaine Screen U Marijuana (THC) Screen COVID-19 ([facility]ES[facility]) COVID-19 Clin Com Influenza Type A (AMANDA) Influenza Type B (AMANDA) Influenza A & B Note TB Test (T-Spot) Com TB Test Nil Control TB Test Panel A TB Test Panel B TB Test Positive [facility] 10/30/24 10/30/24 10/30/24 06:46 11:13 16:09 WBC RBC Hgb Hct MCV MCH MCHC RDW Plt Count MPV Immature Gran % (Auto) Neut % (Auto) Lymph % (Auto) [place] % (Auto) Eos % (Auto) Baso % (Auto) Lymph # (Auto) [place] # (Auto) Eos # (Auto) Baso # (Auto) Abs Immat Gran (auto) Absolute Neuts (auto) Absolute Nucleated RBC Nucleated RBC % (auto) Smear Tech's Comments Hold Purple Top VBG pH VBG pCO2 VBG pO2 VBG HCO3 VBG O2 Saturation VBG Base Excess Sodium Potassium Chloride Carbon Dioxide Anion Gap BUN Creatinine Estim Creat Clear Calc Estimated GFR POC Glucose 195 H 194 H 143 H Random Glucose Estimat Average Glucose Hemoglobin A1c % Osmolality Lactic Acid Calcium Magnesium Iron TIBC % Saturation Unsat Iron Binding Total Bilirubin AST ALT Alkaline Phosphatase Total Protein Albumin Triglycerides Cholesterol LDL Cholesterol, Calc HDL Cholesterol Lipase TSH Free T4 Urine Color Urine Appearance Urine pH Ur Specific [place] Urine Protein Urine Glucose (UA) Urine Ketones Urine Blood Urine Nitrite Ur Leukocyte Esterase Urine RBC Urine WBC Ur Squamous Epith Cells Urine Bacteria Hyaline Casts Urine Osmolality Ur Random Sodium Urine Opiates Screen Ur Buprenorphine Scrn Ur Oxycodone Screen Urine Methadone Screen Urine Fentanyl Screen Ur Barbiturates Screen Carbamazepine Ur Phencyclidine Scrn Ur Amphetamines Screen U Benzodiazepines Scrn Urine Cocaine Screen U Marijuana (THC) Screen COVID-19 (TRESA) COVID-19 Clin Com Influenza Type A (AMANDA) Influenza Type B (AMANDA) Influenza A & B Note TB Test (T-Spot) Com TB Test Nil Control TB Test Panel A TB Test Panel B TB Test Positive [facility] 10/30/24 10/30/24 10/31/24 17:25 19:55 06:33 WBC 11.2 H RBC 3.63 L Hgb 10.7 L Hct 31.4 L MCV 86.5 MCH 29.5 MCHC 34.1 RDW 13.5 Plt Count 288 MPV 8.9 L Immature Gran % (Auto) 0.5 H Neut % (Auto) 74.7 H Lymph % (Auto) 13.2 L [place] % (Auto) 10.5 Eos % (Auto) 0.7 Baso % (Auto) 0.4 Lymph # (Auto) 1.5 [place] # (Auto) 1.2 Eos # (Auto) 0.1 Baso # (Auto) 0.0 Abs Immat Gran (auto) 0.06 H Absolute Neuts (auto) 8.4 H Absolute Nucleated RBC 0.000 Nucleated RBC % (auto) 0.0 Smear Tech's Comments Hold Purple Top VBG pH VBG pCO2 VBG pO2 VBG HCO3 VBG O2 Saturation VBG Base Excess Sodium 136 Potassium 5.1 Chloride 101 Carbon Dioxide 26 Anion Gap 14 BUN 34 H Creatinine 1.17 Estim Creat Clear Calc 28.9 Estimated GFR 45 POC Glucose 244 H 173 H Random Glucose 225 H Estimat Average Glucose Hemoglobin A1c % Osmolality Lactic Acid Calcium 9.2 Magnesium Iron TIBC % Saturation Unsat Iron Binding Total Bilirubin 0.5 AST 15 ALT 23 Alkaline Phosphatase 64 Total Protein 6.8 Albumin 4.3 Triglycerides Cholesterol LDL Cholesterol, Calc HDL Cholesterol Lipase TSH Free T4 Urine Color Urine Appearance Urine pH Ur Specific [place] Urine Protein Urine Glucose (UA) Urine Ketones Urine Blood Urine Nitrite Ur Leukocyte Esterase Urine RBC Urine WBC Ur Squamous Epith Cells Urine Bacteria Hyaline Casts Urine Osmolality Ur Random Sodium Urine Opiates Screen Ur Buprenorphine Scrn Ur Oxycodone Screen Urine Methadone Screen Urine Fentanyl Screen Ur Barbiturates Screen Carbamazepine Ur Phencyclidine Scrn Ur Amphetamines Screen U Benzodiazepines Scrn Urine Cocaine Screen U Marijuana (THC) Screen COVID-19 (TRESA) COVID-19 Clin Com Influenza Type A (AMANDA) Influenza Type B (AMANDA) Influenza A & B Note TB Test (T-Spot) Com TB Test Nil Control TB Test Panel A TB Test Panel B [facility] 10/31/24 10/31/24 11/01/24 11:26 16:31 06:33 WBC RBC Hgb Hct MCV MCH MCHC RDW Plt Count MPV Immature Gran % (Auto) Neut % (Auto) Lymph % (Auto) [place] % (Auto) Eos % (Auto) Baso % (Auto) Lymph # (Auto) [place] # (Auto) Eos # (Auto) Baso # (Auto) Abs Immat Gran (auto) Absolute Neuts (auto) Absolute Nucleated RBC Nucleated RBC % (auto) Smear Tech's Comments Hold Purple Top VBG pH VBG pCO2 VBG pO2 VBG HCO3 VBG O2 Saturation VBG Base Excess Sodium Potassium Chloride Carbon Dioxide Anion Gap BUN Creatinine Estim Creat Clear Calc Estimated GFR POC Glucose 178 H 169 H 199 H Random Glucose Estimat Average Glucose Hemoglobin A1c % Osmolality Lactic Acid Calcium Magnesium Iron TIBC % Saturation Unsat Iron Binding Total Bilirubin AST ALT Alkaline Phosphatase Total Protein Albumin Triglycerides Cholesterol LDL Cholesterol, Calc HDL Cholesterol Lipase TSH Free T4 Urine Color Urine Appearance Urine pH Ur Specific [place] Urine Protein Urine Glucose (UA) Urine Ketones Urine Blood Urine Nitrite Ur Leukocyte Esterase Urine RBC Urine WBC Ur Squamous Epith Cells Urine Bacteria Hyaline Casts Urine Osmolality Ur Random Sodium Urine Opiates Screen Ur Buprenorphine Scrn Ur Oxycodone Screen Urine Methadone Screen Urine Fentanyl Screen Ur Barbiturates Screen Carbamazepine Ur Phencyclidine Scrn Ur Amphetamines Screen U Benzodiazepines Scrn Urine Cocaine Screen U Marijuana (THC) Screen COVID-19 (TRESA) COVID-19 Clin Com Influenza Type A (AMANDA) Influenza Type B (AMANDA) Influenza A & B Note TB Test (T-Spot) Com TB Test Nil Control TB Test Panel A TB Test Panel B TB Test Positive [facility] 11/01/24 11/01/24 11/01/24 11:05 16:24 19:41 WBC RBC Hgb Hct MCV MCH MCHC RDW Plt Count MPV Immature Gran % (Auto) Neut % (Auto) Lymph % (Auto) [place] % (Auto) Eos % (Auto) Baso % (Auto) Lymph # (Auto) [place] # (Auto) Eos # (Auto) Baso # (Auto) Abs Immat Gran (auto) Absolute Neuts (auto) Absolute Nucleated RBC Nucleated RBC % (auto) Smear Tech's Comments Hold Purple Top VBG pH VBG pCO2 VBG pO2 VBG HCO3 VBG O2 Saturation VBG Base Excess Sodium Potassium Chloride Carbon Dioxide Anion Gap BUN Creatinine Estim Creat Clear Calc Estimated GFR POC Glucose 257 H 124 H 209 H Random Glucose Estimat Average Glucose Hemoglobin A1c % Osmolality Lactic Acid Calcium Magnesium Iron TIBC % Saturation Unsat Iron Binding Total Bilirubin AST ALT Alkaline Phosphatase Total Protein Albumin Triglycerides Cholesterol LDL Cholesterol, Calc HDL Cholesterol Lipase TSH Free T4 Urine Color Urine Appearance Urine pH Ur Specific [place] Urine Protein Urine Glucose (UA) Urine Ketones Urine Blood Urine Nitrite Ur Leukocyte Esterase Urine RBC Urine WBC Ur Squamous Epith Cells Urine Bacteria Hyaline Casts Urine Osmolality Ur Random Sodium Urine Opiates Screen Ur Buprenorphine Scrn Ur Oxycodone Screen Urine Methadone Screen Urine Fentanyl Screen Ur Barbiturates Screen Carbamazepine Ur Phencyclidine Scrn Ur Amphetamines Screen U Benzodiazepines Scrn Urine Cocaine Screen U Marijuana (THC) Screen COVID-19 (TRESA) COVID-19 Clin Com Influenza Type A (AMANDA) Influenza Type B (AMANDA) Influenza A & B Note TB Test (T-Spot) Com TB Test Nil Control TB Test Panel A TB Test Panel B TB Test Positive [facility] 11/02/24 11/02/24 11/02/24 06:34 11:26 11:28 WBC RBC Hgb Hct MCV MCH MCHC RDW Plt Count MPV Immature Gran % (Auto) Neut % (Auto) Lymph % (Auto) [place] % (Auto) Eos % (Auto) Baso % (Auto) Lymph # (Auto) [place] # (Auto) Eos # (Auto) Baso # (Auto) Abs Immat Gran (auto) Absolute Neuts (auto) Absolute Nucleated RBC Nucleated RBC % (auto) Smear Tech's Comments Hold Purple Top VBG pH VBG pCO2 VBG pO2 VBG HCO3 VBG O2 Saturation VBG Base Excess Sodium Potassium Chloride Carbon Dioxide Anion Gap BUN Creatinine Estim Creat Clear Calc Estimated GFR POC Glucose 185 H 445 H* 469 H* Random Glucose Estimat Average Glucose Hemoglobin A1c % Osmolality Lactic Acid Calcium Magnesium Iron TIBC % Saturation Unsat Iron Binding Total Bilirubin AST ALT Alkaline Phosphatase Total Protein Albumin Triglycerides Cholesterol LDL Cholesterol, Calc HDL Cholesterol Lipase TSH Free T4 Urine Color Urine Appearance Urine pH Ur Specific [place] Urine Protein Urine Glucose (UA) Urine Ketones Urine Blood Urine Nitrite Ur Leukocyte Esterase Urine RBC Urine WBC Ur Squamous Epith Cells Urine Bacteria Hyaline Casts Urine Osmolality Ur Random Sodium Urine Opiates Screen Ur Buprenorphine Scrn Ur Oxycodone Screen Urine Methadone Screen Urine Fentanyl Screen Ur Barbiturates Screen Carbamazepine Ur Phencyclidine Scrn Ur Amphetamines Screen U Benzodiazepines Scrn Urine Cocaine Screen U Marijuana (THC) Screen COVID-19 (TRESA) COVID-19 Clin Com Influenza Type A (AMANDA) Influenza Type B (AMANDA) Influenza A & B Note TB Test (T-Spot) Com TB Test Nil Control TB Test Panel A TB Test Panel B TB Test Positive [facility] 11/02/24 11/02/24 11/02/24 13:18 16:31 19:46 WBC RBC Hgb Hct MCV MCH MCHC RDW Plt Count MPV Immature Gran % (Auto) Neut % (Auto) Lymph % (Auto) [place] % (Auto) Eos % (Auto) Baso % (Auto) Lymph # (Auto) [place] # (Auto) Eos # (Auto) Baso # (Auto) Abs Immat Gran (auto) Absolute Neuts (auto) Absolute Nucleated RBC Nucleated RBC % (auto) Smear Tech's Comments Hold Purple Top VBG pH VBG pCO2 VBG pO2 VBG HCO3 VBG O2 Saturation VBG Base Excess Sodium Potassium Chloride Carbon Dioxide Anion Gap BUN Creatinine Estim Creat Clear Calc Estimated GFR POC Glucose 379 H* 206 H 153 H Random Glucose Estimat Average Glucose Hemoglobin A1c % Osmolality Lactic Acid Calcium Magnesium Iron TIBC % Saturation Unsat Iron Binding Total Bilirubin AST ALT Alkaline Phosphatase Total Protein Albumin Triglycerides Cholesterol LDL Cholesterol, Calc HDL Cholesterol Lipase TSH Free T4 Urine Color Urine Appearance Urine pH Ur Specific [place] Urine Protein Urine Glucose (UA) Urine Ketones Urine Blood Urine Nitrite Ur Leukocyte Esterase Urine RBC Urine WBC Ur Squamous Epith Cells Urine Bacteria Hyaline Casts Urine Osmolality Ur Random Sodium Urine Opiates Screen Ur Buprenorphine Scrn Ur Oxycodone Screen Urine Methadone Screen Urine Fentanyl Screen Ur Barbiturates Screen Carbamazepine Ur Phencyclidine Scrn Ur Amphetamines Screen U Benzodiazepines Scrn Urine Cocaine Screen U Marijuana (THC) Screen COVID-19 (TRESA) COVID-19 Clin Com Influenza Type A (AMANDA) Influenza Type B (AMANDA) Influenza A & B Note TB Test (T-Spot) Com TB Test Nil Control TB Test Panel A TB Test Panel B TB Test Positive [facility] 11/02/24 11/02/24 11/02/24 20:13 20:14 20:18 WBC 6.8 RBC 3.44 L Hgb 10.4 L Hct 29.1 L MCV 84.6 MCH 30.2 MCHC 35.7 H RDW 13.2 Plt Count 286 MPV 8.6 L Immature Gran % (Auto) 0.4 Neut % (Auto) 59.4 Lymph % (Auto) 27.6 [place] % (Auto) 11.3 H Eos % (Auto) 1.0 Baso % (Auto) 0.3 Lymph # (Auto) 1.9 [place] # (Auto) 0.8 Eos # (Auto) 0.1 Baso # (Auto) 0.0 Abs Immat Gran (auto) 0.03 Absolute Neuts (auto) 4.1 Absolute Nucleated RBC 0.000 Nucleated RBC % (auto) 0.0 Smear Tech's Comments Hold Purple Top VBG pH 7.44 H VBG pCO2 37 VBG pO2 48 VBG HCO3 26 VBG O2 Saturation 76.0 VBG Base Excess 2.3 Sodium 133 L Potassium 4.7 Chloride 100 Carbon Dioxide 26 Anion Gap 12 BUN 33 H Creatinine 1.86 H Estim Creat Clear Calc 18.0 Estimated GFR 26 POC Glucose Random Glucose 135 H Estimat Average Glucose Hemoglobin A1c % Osmolality Lactic Acid 1.2 Calcium 9.3 Magnesium 2.2 Iron TIBC % Saturation Unsat Iron Binding Total Bilirubin 0.4 AST 16 ALT 25 Alkaline Phosphatase 79 Total Protein 7.1 Albumin 4.4 Triglycerides Cholesterol LDL Cholesterol, Calc HDL Cholesterol Lipase 37 TSH Free T4 Urine Color Urine Appearance Urine pH Ur Specific [place] Urine Protein Urine Glucose (UA) Urine Ketones Urine Blood Urine Nitrite Ur Leukocyte Esterase Urine RBC Urine WBC Ur Squamous Epith Cells Urine Bacteria Hyaline Casts Urine Osmolality Ur Random Sodium Urine Opiates Screen Ur Buprenorphine Scrn Ur Oxycodone Screen Urine Methadone Screen Urine Fentanyl Screen Ur Barbiturates Screen Carbamazepine Ur Phencyclidine Scrn Ur Amphetamines Screen U Benzodiazepines Scrn Urine Cocaine Screen U Marijuana (THC) Screen COVID-19 (TRESA) COVID-19 Clin Com Influenza Type A (AMANDA) Influenza Type B (AMANDA) Influenza A & B Note TB Test (T-Spot) Com TB Test Nil Control TB Test Panel A TB Test Panel B TB Test Positive [facility] 11/02/24 11/02/24 11/03/24 20:20 21:38 06:38 WBC RBC Hgb Hct MCV MCH MCHC RDW Plt Count MPV Immature Gran % (Auto) Neut % (Auto) Lymph % (Auto) [place] % (Auto) Eos % (Auto) Baso % (Auto) Lymph # (Auto) [place] # (Auto) Eos # (Auto) Baso # (Auto) Abs Immat Gran (auto) Absolute Neuts (auto) Absolute Nucleated RBC Nucleated RBC % (auto) Smear Tech's Comments Hold Purple Top VBG pH VBG pCO2 VBG pO2 VBG HCO3 VBG O2 Saturation VBG Base Excess Sodium Potassium Chloride Carbon Dioxide Anion Gap BUN Creatinine Estim Creat Clear Calc Estimated GFR POC Glucose 123 H 164 H Random Glucose Estimat Average Glucose Hemoglobin A1c % Osmolality Lactic Acid Calcium Magnesium Iron TIBC % Saturation Unsat Iron Binding Total Bilirubin AST ALT Alkaline Phosphatase Total Protein Albumin Triglycerides Cholesterol LDL Cholesterol, Calc HDL Cholesterol Lipase TSH Free T4 Urine Color Yellow Urine Appearance Clear Urine pH 6.5 Ur Specific [place] 1.015 Urine Protein Negative Urine Glucose (UA) Negative Urine Ketones Negative Urine Blood Negative Urine Nitrite Negative Ur Leukocyte Esterase Large (3+) H Urine RBC 0-2 Urine WBC 11-20 H Ur Squamous Epith Cells 0-2 Urine Bacteria None Seen Hyaline Casts 0-2 Urine Osmolality Ur Random Sodium Urine Opiates Screen Ur Buprenorphine Scrn Ur Oxycodone Screen Urine Methadone Screen Urine Fentanyl Screen Ur Barbiturates Screen Carbamazepine Ur Phencyclidine Scrn Ur Amphetamines Screen U Benzodiazepines Scrn Urine Cocaine Screen U Marijuana (THC) Screen COVID-19 (TRESA) COVID-19 Clin Com Influenza Type A (AMANDA) Influenza Type B (AMANDA) Influenza A & B Note TB Test (T-Spot) Com TB Test Nil Control TB Test Panel A TB Test Panel B TB Test Positive Cn[facility] 11/03/24 11/03/24 11/04/24 11:23 16:03 06:47 WBC RBC Hgb Hct MCV MCH MCHC RDW Plt Count MPV Immature Gran % (Auto) Neut % (Auto) Lymph % (Auto) [place] % (Auto) Eos % (Auto) Baso % (Auto) Lymph # (Auto) [place] # (Auto) Eos # (Auto) Baso # (Auto) Abs Immat Gran (auto) Absolute Neuts (auto) Absolute Nucleated RBC Nucleated RBC % (auto) Smear Tech's Comments Hold Purple Top VBG pH VBG pCO2 VBG pO2 VBG HCO3 VBG O2 Saturation VBG Base Excess Sodium Potassium Chloride Carbon Dioxide Anion Gap BUN Creatinine Estim Creat Clear Calc Estimated GFR POC Glucose 238 H 185 H 148 H Random Glucose Estimat Average Glucose Hemoglobin A1c % Osmolality Lactic Acid Calcium Magnesium Iron TIBC % Saturation Unsat Iron Binding Total Bilirubin AST ALT Alkaline Phosphatase Total Protein Albumin Triglycerides Cholesterol LDL Cholesterol, Calc HDL Cholesterol Lipase TSH Free T4 Urine Color Urine Appearance Urine pH Ur Specific [place] Urine Protein Urine Glucose (UA) Urine Ketones Urine Blood Urine Nitrite Ur Leukocyte Esterase Urine RBC Urine WBC Ur Squamous Epith Cells Urine Bacteria Hyaline Casts Urine Osmolality Ur Random Sodium Urine Opiates Screen Ur Buprenorphine Scrn Ur Oxycodone Screen Urine Methadone Screen Urine Fentanyl Screen Ur Barbiturates Screen Carbamazepine Ur Phencyclidine Scrn Ur Amphetamines Screen U Benzodiazepines Scrn Urine Cocaine Screen U Marijuana (THC) Screen COVID-19 (TRESA) COVID-19 Clin Com Influenza Type A (AMANDA) Influenza Type B (AMANDA) Influenza A & B Note TB Test (T-Spot) Com TB Test Nil Control TB Test Panel A TB Test Panel B TB Test Positive [facility] 11/04/24 11/04/24 11/04/24 09:52 11:20 16:30 WBC RBC Hgb Hct MCV MCH MCHC RDW Plt Count MPV Immature Gran % (Auto) Neut % (Auto) Lymph % (Auto) [place] % (Auto) Eos % (Auto) Baso % (Auto) Lymph # (Auto) [place] # (Auto) Eos # (Auto) Baso # (Auto) Abs Immat Gran (auto) Absolute Neuts (auto) Absolute Nucleated RBC Nucleated RBC % (auto) Smear Tech's Comments Hold Purple Top VBG pH VBG pCO2 VBG pO2 VBG HCO3 VBG O2 Saturation VBG Base Excess Sodium 134 L Potassium 5.5 H Chloride 102 Carbon Dioxide 22 Anion Gap 16 BUN 35 H Creatinine 1.15 Estim Creat Clear Calc 29.2 Estimated GFR 46 POC Glucose 178 H 139 H Random Glucose 232 H Estimat Average Glucose Hemoglobin A1c % Osmolality Lactic Acid Calcium 9.1 Magnesium Iron TIBC % Saturation Unsat Iron Binding Total Bilirubin 0.3 AST 25 ALT 25 Alkaline Phosphatase 67 Total Protein 6.9 Albumin 4.2 Triglycerides Cholesterol LDL Cholesterol, Calc HDL Cholesterol Lipase TSH Free T4 Urine Color Urine Appearance Urine pH Ur Specific [place] Urine Protein Urine Glucose (UA) Urine Ketones Urine Blood Urine Nitrite Ur Leukocyte Esterase Urine RBC Urine WBC Ur Squamous Epith Cells Urine Bacteria Hyaline Casts Urine Osmolality Ur Random Sodium Urine Opiates Screen Ur Buprenorphine Scrn Ur Oxycodone Screen Urine Methadone Screen Urine Fentanyl Screen Ur Barbiturates Screen Carbamazepine Ur Phencyclidine Scrn Ur Amphetamines Screen U Benzodiazepines Scrn Urine Cocaine Screen U Marijuana (THC) Screen COVID-19 (TRESA) COVID-19 Clin Com Influenza Type A (AMANDA) Influenza Type B (AMANDA) Influenza A & B Note TB Test (T-Spot) Com TB Test Nil Control TB Test Panel A TB Test Panel B TB Test Positive [facility] 11/04/24 11/04/24 11/05/24 16:53 21:12 06:28 WBC RBC Hgb Hct MCV MCH MCHC RDW Plt Count MPV Immature Gran % (Auto) Neut % (Auto) Lymph % (Auto) [place] % (Auto) Eos % (Auto) Baso % (Auto) Lymph # (Auto) [place] # (Auto) Eos # (Auto) Baso # (Auto) Abs Immat Gran (auto) Absolute Neuts (auto) Absolute Nucleated RBC Nucleated RBC % (auto) Smear Tech's Comments Hold Purple Top VBG pH VBG pCO2 VBG pO2 VBG HCO3 VBG O2 Saturation VBG Base Excess Sodium Potassium Chloride Carbon Dioxide Anion Gap BUN Creatinine Estim Creat Clear Calc Estimated GFR POC Glucose 192 H 199 H 155 H Random Glucose Estimat Average Glucose Hemoglobin A1c % Osmolality Lactic Acid Calcium Magnesium Iron TIBC % Saturation Unsat Iron Binding Total Bilirubin AST ALT Alkaline Phosphatase Total Protein Albumin Triglycerides Cholesterol LDL Cholesterol, Calc HDL Cholesterol Lipase TSH Free T4 Urine Color Urine Appearance Urine pH Ur Specific [place] Urine Protein Urine Glucose (UA) Urine Ketones Urine Blood Urine Nitrite Ur Leukocyte Esterase Urine RBC Urine WBC Ur Squamous Epith Cells Urine Bacteria Hyaline Casts Urine Osmolality Ur Random Sodium Urine Opiates Screen Ur Buprenorphine Scrn Ur Oxycodone Screen Urine Methadone Screen Urine Fentanyl Screen Ur Barbiturates Screen Carbamazepine Ur Phencyclidine Scrn Ur Amphetamines Screen U Benzodiazepines Scrn Urine Cocaine Screen U Marijuana (THC) Screen COVID-19 (TRESA) COVID-19 Clin Com Influenza Type A (AMANDA) Influenza Type B (AMADNA) Influenza A & B Note TB Test (T-Spot) Com TB Test Nil Control TB Test Panel A TB Test Panel B TB Test Positive [facility] 11/05/24 11/05/24 11/05/24 11:14 16:10 20:54 WBC RBC Hgb Hct MCV MCH MCHC RDW Plt Count MPV Immature Gran % (Auto) Neut % (Auto) Lymph % (Auto) [place] % (Auto) Eos % (Auto) Baso % (Auto) Lymph # (Auto) [place] # (Auto) Eos # (Auto) Baso # (Auto) Abs Immat Gran (auto) Absolute Neuts (auto) Absolute Nucleated RBC Nucleated RBC % (auto) Smear Tech's Comments Hold Purple Top VBG pH VBG pCO2 VBG pO2 VBG HCO3 VBG O2 Saturation VBG Base Excess Sodium Potassium Chloride Carbon Dioxide Anion Gap BUN Creatinine Estim Creat Clear Calc Estimated GFR POC Glucose 145 H 145 H 205 H Random Glucose Estimat Average Glucose Hemoglobin A1c % Osmolality Lactic Acid Calcium Magnesium Iron TIBC % Saturation Unsat Iron Binding Total Bilirubin AST ALT Alkaline Phosphatase Total Protein Albumin Triglycerides Cholesterol LDL Cholesterol, Calc HDL Cholesterol Lipase TSH Free T4 Urine Color Urine Appearance Urine pH Ur Specific [place] Urine Protein Urine Glucose (UA) Urine Ketones Urine Blood Urine Nitrite Ur Leukocyte Esterase Urine RBC Urine WBC Ur Squamous Epith Cells Urine Bacteria Hyaline Casts Urine Osmolality Ur Random Sodium Urine Opiates Screen Ur Buprenorphine Scrn Ur Oxycodone Screen Urine Methadone Screen Urine Fentanyl Screen Ur Barbiturates Screen Carbamazepine Ur Phencyclidine Scrn Ur Amphetamines Screen U Benzodiazepines Scrn Urine Cocaine Screen U Marijuana (THC) Screen COVID-19 (TRESA) COVID-19 Clin Com Influenza Type A (AMANDA) Influenza Type B (AMANDA) Influenza A & B Note TB Test (T-Spot) Com TB Test Nil Control TB Test Panel A TB Test Panel B TB Test Positive Cn[facility] 11/06/24 11/06/24 11/06/24 06:29 11:28 16:19 WBC RBC Hgb Hct MCV MCH MCHC RDW Plt Count MPV Immature Gran % (Auto) Neut % (Auto) Lymph % (Auto) [place] % (Auto) Eos % (Auto) Baso % (Auto) Lymph # (Auto) [place] # (Auto) Eos # (Auto) Baso # (Auto) Abs Immat Gran (auto) Absolute Neuts (auto) Absolute Nucleated RBC Nucleated RBC % (auto) Smear Tech's Comments Hold Purple Top VBG pH VBG pCO2 VBG pO2 VBG HCO3 VBG O2 Saturation VBG Base Excess Sodium Potassium Chloride Carbon Dioxide Anion Gap BUN Creatinine Estim Creat Clear Calc Estimated GFR POC Glucose 186 H 166 H 168 H Random Glucose Estimat Average Glucose Hemoglobin A1c % Osmolality Lactic Acid Calcium Magnesium Iron TIBC % Saturation Unsat Iron Binding Total Bilirubin AST ALT Alkaline Phosphatase Total Protein Albumin Triglycerides Cholesterol LDL Cholesterol, Calc HDL Cholesterol Lipase TSH Free T4 Urine Color Urine Appearance Urine pH Ur Specific [place] Urine Protein Urine Glucose (UA) Urine Ketones Urine Blood Urine Nitrite Ur Leukocyte Esterase Urine RBC Urine WBC Ur Squamous Epith Cells Urine Bacteria Hyaline Casts Urine Osmolality Ur Random Sodium Urine Opiates Screen Ur Buprenorphine Scrn Ur Oxycodone Screen Urine Methadone Screen Urine Fentanyl Screen Ur Barbiturates Screen Carbamazepine Ur Phencyclidine Scrn Ur Amphetamines Screen U Benzodiazepines Scrn Urine Cocaine Screen U Marijuana (THC) Screen COVID-19 (TRESA) COVID-19 Clin Com Influenza Type A (AMANDA) Influenza Type B (AMANDA) Influenza A & B Note TB Test (T-Spot) Com TB Test Nil Control TB Test Panel A TB Test Panel B TB Test Positive [facility] 11/06/24 11/07/24 11/07/24 21:20 06:20 10:45 WBC RBC Hgb Hct MCV MCH MCHC RDW Plt Count MPV Immature Gran % (Auto) Neut % (Auto) Lymph % (Auto) [place] % (Auto) Eos % (Auto) Baso % (Auto) Lymph # (Auto) [place] # (Auto) Eos # (Auto) Baso # (Auto) Abs Immat Gran (auto) Absolute Neuts (auto) Absolute Nucleated RBC Nucleated RBC % (auto) Smear Tech's Comments Hold Purple Top VBG pH VBG pCO2 VBG pO2 VBG HCO3 VBG O2 Saturation VBG Base Excess Sodium Potassium Chloride Carbon Dioxide Anion Gap BUN Creatinine Estim Creat Clear Calc Estimated GFR POC Glucose 82 125 H 159 H Random Glucose Estimat Average Glucose Hemoglobin A1c % Osmolality Lactic Acid Calcium Magnesium Iron TIBC % Saturation Unsat Iron Binding Total Bilirubin AST ALT Alkaline Phosphatase Total Protein Albumin Triglycerides Cholesterol LDL Cholesterol, Calc HDL Cholesterol Lipase TSH Free T4 Urine Color Urine Appearance Urine pH Ur Specific [place] Urine Protein Urine Glucose (UA) Urine Ketones Urine Blood Urine Nitrite Ur Leukocyte Esterase Urine RBC Urine WBC Ur Squamous Epith Cells Urine Bacteria Hyaline Casts Urine Osmolality Ur Random Sodium Urine Opiates Screen Ur Buprenorphine Scrn Ur Oxycodone Screen Urine Methadone Screen Urine Fentanyl Screen Ur Barbiturates Screen Carbamazepine Ur Phencyclidine Scrn Ur Amphetamines Screen U Benzodiazepines Scrn Urine Cocaine Screen U Marijuana (THC) Screen COVID-19 (TRESA) COVID-19 Clin Com Influenza Type A (AMANDA) Influenza Type B (AMANDA) Influenza A & B Note TB Test (T-Spot) Com TB Test Nil Control TB Test Panel A TB Test Panel B TB Test Positive [facility] 11/07/24 11/07/24 11/08/24 16:17 20:21 06:25 WBC RBC Hgb Hct MCV MCH MCHC RDW Plt Count MPV Immature Gran % (Auto) Neut % (Auto) Lymph % (Auto) [place] % (Auto) Eos % (Auto) Baso % (Auto) Lymph # (Auto) [place] # (Auto) Eos # (Auto) Baso # (Auto) Abs Immat Gran (auto) Absolute Neuts (auto) Absolute Nucleated RBC Nucleated RBC % (auto) Smear Tech's Comments Hold Purple Top VBG pH VBG pCO2 VBG pO2 VBG HCO3 VBG O2 Saturation VBG Base Excess Sodium Potassium Chloride Carbon Dioxide Anion Gap BUN Creatinine Estim Creat Clear Calc Estimated GFR POC Glucose 115 142 H 147 H Random Glucose Estimat Average Glucose Hemoglobin A1c % Osmolality Lactic Acid Calcium Magnesium Iron TIBC % Saturation Unsat Iron Binding Total Bilirubin AST ALT Alkaline Phosphatase Total Protein Albumin Triglycerides Cholesterol LDL Cholesterol, Calc HDL Cholesterol Lipase TSH Free T4 Urine Color Urine Appearance Urine pH Ur Specific [place] Urine Protein Urine Glucose (UA) Urine Ketones Urine Blood Urine Nitrite Ur Leukocyte Esterase Urine RBC Urine WBC Ur Squamous Epith Cells Urine Bacteria Hyaline Casts Urine Osmolality Ur Random Sodium Urine Opiates Screen Ur Buprenorphine Scrn Ur Oxycodone Screen Urine Methadone Screen Urine Fentanyl Screen Ur Barbiturates Screen Carbamazepine Ur Phencyclidine Scrn Ur Amphetamines Screen U Benzodiazepines Scrn Urine Cocaine Screen U Marijuana (THC) Screen COVID-19 ([facility]) COVID-19 Clin Com Influenza Type A (AMANDA) Influenza Type B (AMANDA) Influenza A & B Note TB Test (T-Spot) Com TB Test Nil Control TB Test Panel A TB Test Panel B TB Test Positive [facility] 11/08/24 11/08/24 11/08/24 11:07 16:51 21:23 WBC RBC Hgb Hct MCV MCH MCHC RDW Plt Count MPV Immature Gran % (Auto) Neut % (Auto) Lymph % (Auto) [place] % (Auto) Eos % (Auto) Baso % (Auto) Lymph # (Auto) [place] # (Auto) Eos # (Auto) Baso # (Auto) Abs Immat Gran (auto) Absolute Neuts (auto) Absolute Nucleated RBC Nucleated RBC % (auto) Smear Tech's Comments Hold Purple Top VBG pH VBG pCO2 VBG pO2 VBG HCO3 VBG O2 Saturation VBG Base Excess Sodium Potassium Chloride Carbon Dioxide Anion Gap BUN Creatinine Estim Creat Clear Calc Estimated GFR POC Glucose 245 H 115 255 H Random Glucose Estimat Average Glucose Hemoglobin A1c % Osmolality Lactic Acid Calcium Magnesium Iron TIBC % Saturation Unsat Iron Binding Total Bilirubin AST ALT Alkaline Phosphatase Total Protein Albumin Triglycerides Cholesterol LDL Cholesterol, Calc HDL Cholesterol Lipase TSH Free T4 Urine Color Urine Appearance Urine pH Ur Specific [place] Urine Protein Urine Glucose (UA) Urine Ketones Urine Blood Urine Nitrite Ur Leukocyte Esterase Urine RBC Urine WBC Ur Squamous Epith Cells Urine Bacteria Hyaline Casts Urine Osmolality Ur Random Sodium Urine Opiates Screen Ur Buprenorphine Scrn Ur Oxycodone Screen Urine Methadone Screen Urine Fentanyl Screen Ur Barbiturates Screen Carbamazepine Ur Phencyclidine Scrn Ur Amphetamines Screen U Benzodiazepines Scrn Urine Cocaine Screen U Marijuana (THC) Screen COVID-19 ([facility]) COVID-19 Clin Com Influenza Type A (AMANDA) Influenza Type B (AMANDA) Influenza A & B Note TB Test (T-Spot) Com TB Test Nil Control TB Test Panel A TB Test Panel B TB Test Positive Cntr 11/09/24 11/09/24 11/09/24 06:39 11:02 16:04 WBC RBC Hgb Hct MCV MCH MCHC RDW Plt Count MPV Immature Gran % (Auto) Neut % (Auto) Lymph % (Auto) [place] % (Auto) Eos % (Auto) Baso % (Auto) Lymph # (Auto) [place] # (Auto) Eos # (Auto) Baso # (Auto) Abs Immat Gran (auto) Absolute Neuts (auto) Absolute Nucleated RBC Nucleated RBC % (auto) Smear Tech's Comments Hold Purple Top VBG pH VBG pCO2 VBG pO2 VBG HCO3 VBG O2 Saturation VBG Base Excess Sodium Potassium Chloride Carbon Dioxide Anion Gap BUN Creatinine Estim Creat Clear Calc Estimated GFR POC Glucose 137 H 302 H 77 Random Glucose Estimat Average Glucose Hemoglobin A1c % Osmolality Lactic Acid Calcium Magnesium Iron TIBC % Saturation Unsat Iron Binding Total Bilirubin AST ALT Alkaline Phosphatase Total Protein Albumin Triglycerides Cholesterol LDL Cholesterol, Calc HDL Cholesterol Lipase TSH Free T4 Urine Color Urine Appearance Urine pH Ur Specific [place] Urine Protein Urine Glucose (UA) Urine Ketones Urine Blood Urine Nitrite Ur Leukocyte Esterase Urine RBC Urine WBC Ur Squamous Epith Cells Urine Bacteria Hyaline Casts Urine Osmolality Ur Random Sodium Urine Opiates Screen Ur Buprenorphine Scrn Ur Oxycodone Screen Urine Methadone Screen Urine Fentanyl Screen Ur Barbiturates Screen Carbamazepine Ur Phencyclidine Scrn Ur Amphetamines Screen U Benzodiazepines Scrn Urine Cocaine Screen U Marijuana (THC) Screen COVID-19 ([facility]) COVID-19 Clin Com Influenza Type A (AMANDA) Influenza Type B (AMANDA) Influenza A & B Note TB Test (T-Spot) Com TB Test Nil Control TB Test Panel A TB Test Panel B TB Test Positive Cntr 11/09/24 11/10/24 11/10/24 20:29 06:37 11:29 WBC RBC Hgb Hct MCV MCH MCHC RDW Plt Count MPV Immature Gran % (Auto) Neut % (Auto) Lymph % (Auto) [place] % (Auto) Eos % (Auto) Baso % (Auto) Lymph # (Auto) [place] # (Auto) Eos # (Auto) Baso # (Auto) Abs Immat Gran (auto) Absolute Neuts (auto) Absolute Nucleated RBC Nucleated RBC % (auto) Smear Tech's Comments Hold Purple Top VBG pH VBG pCO2 VBG pO2 VBG HCO3 VBG O2 Saturation VBG Base Excess Sodium Potassium Chloride Carbon Dioxide Anion Gap BUN Creatinine Estim Creat Clear Calc Estimated GFR POC Glucose 242 H 187 H 230 H Random Glucose Estimat Average Glucose Hemoglobin A1c % Osmolality Lactic Acid Calcium Magnesium Iron TIBC % Saturation Unsat Iron Binding Total Bilirubin AST ALT Alkaline Phosphatase Total Protein Albumin Triglycerides Cholesterol LDL Cholesterol, Calc HDL Cholesterol Lipase TSH Free T4 Urine Color Urine Appearance Urine pH Ur Specific [place] Urine Protein Urine Glucose (UA) Urine Ketones Urine Blood Urine Nitrite Ur Leukocyte Esterase Urine RBC Urine WBC Ur Squamous Epith Cells Urine Bacteria Hyaline Casts Urine Osmolality Ur Random Sodium Urine Opiates Screen Ur Buprenorphine Scrn Ur Oxycodone Screen Urine Methadone Screen Urine Fentanyl Screen Ur Barbiturates Screen Carbamazepine Ur Phencyclidine Scrn Ur Amphetamines Screen U Benzodiazepines Scrn Urine Cocaine Screen U Marijuana (THC) Screen COVID-19 ([facility]) COVID-19 Clin Com Influenza Type A (AMANDA) Influenza Type B (AMANDA) Influenza A & B Note TB Test (T-Spot) Com TB Test Nil Control TB Test Panel A TB Test Panel B TB Test Positive Cntr 11/10/24 11/10/24 11/11/24 16:24 20:05 06:32 WBC RBC Hgb Hct MCV MCH MCHC RDW Plt Count MPV Immature Gran % (Auto) Neut % (Auto) Lymph % (Auto) [place] % (Auto) Eos % (Auto) Baso % (Auto) Lymph # (Auto) [place] # (Auto) Eos # (Auto) Baso # (Auto) Abs Immat Gran (auto) Absolute Neuts (auto) Absolute Nucleated RBC Nucleated RBC % (auto) Smear Tech's Comments Hold Purple Top VBG pH VBG pCO2 VBG pO2 VBG HCO3 VBG O2 Saturation VBG Base Excess Sodium Potassium Chloride Carbon Dioxide Anion Gap BUN Creatinine Estim Creat Clear Calc Estimated GFR POC Glucose 105 126 H 159 H Random Glucose Estimat Average Glucose Hemoglobin A1c % Osmolality Lactic Acid Calcium Magnesium Iron TIBC % Saturation Unsat Iron Binding Total Bilirubin AST ALT Alkaline Phosphatase Total Protein Albumin Triglycerides Cholesterol LDL Cholesterol, Calc HDL Cholesterol Lipase TSH Free T4 Urine Color Urine Appearance Urine pH Ur Specific [place] Urine Protein Urine Glucose (UA) Urine Ketones Urine Blood Urine Nitrite Ur Leukocyte Esterase Urine RBC Urine WBC Ur Squamous Epith Cells Urine Bacteria Hyaline Casts Urine Osmolality Ur Random Sodium Urine Opiates Screen Ur Buprenorphine Scrn Ur Oxycodone Screen Urine Methadone Screen Urine Fentanyl Screen Ur Barbiturates Screen Carbamazepine Ur Phencyclidine Scrn Ur Amphetamines Screen U Benzodiazepines Scrn Urine Cocaine Screen U Marijuana (THC) Screen COVID-19 ([facility]) COVID-19 Clin Com Influenza Type A (AMANDA) Influenza Type B (AMANDA) Influenza A & B Note TB Test (T-Spot) Com TB Test Nil Control TB Test Panel A TB Test Panel B TB Test Positive Cntrl 11/11/24 11/11/24 11/11/24 11:17 16:17 20:14 WBC RBC Hgb Hct MCV MCH MCHC RDW Plt Count MPV Immature Gran % (Auto) Neut % (Auto) Lymph % (Auto) [place] % (Auto) Eos % (Auto) Baso % (Auto) Lymph # (Auto) [place] # (Auto) Eos # (Auto) Baso # (Auto) Abs Immat Gran (auto) Absolute Neuts (auto) Absolute Nucleated RBC Nucleated RBC % (auto) Smear Tech's Comments Hold Purple Top VBG pH VBG pCO2 VBG pO2 VBG HCO3 VBG O2 Saturation VBG Base Excess Sodium Potassium Chloride Carbon Dioxide Anion Gap BUN Creatinine Estim Creat Clear Calc Estimated GFR POC Glucose 140 H 130 H 194 H Random Glucose Estimat Average Glucose Hemoglobin A1c % Osmolality Lactic Acid Calcium Magnesium Iron TIBC % Saturation Unsat Iron Binding Total Bilirubin AST ALT Alkaline Phosphatase Total Protein Albumin Triglycerides Cholesterol LDL Cholesterol, Calc HDL Cholesterol Lipase TSH Free T4 Urine Color Urine Appearance Urine pH Ur Specific [place] Urine Protein Urine Glucose (UA) Urine Ketones Urine Blood Urine Nitrite Ur Leukocyte Esterase Urine RBC Urine WBC Ur Squamous Epith Cells Urine Bacteria Hyaline Casts Urine Osmolality Ur Random Sodium Urine Opiates Screen Ur Buprenorphine Scrn Ur Oxycodone Screen Urine Methadone Screen Urine Fentanyl Screen Ur Barbiturates Screen Carbamazepine Ur Phencyclidine Scrn Ur Amphetamines Screen U Benzodiazepines Scrn Urine Cocaine Screen U Marijuana (THC) Screen COVID-19 ([facility]) COVID-19 Clin Com Influenza Type A (AMANDA) Influenza Type B (AMANDA) Influenza A & B Note TB Test (T-Spot) Com TB Test Nil Control TB Test Panel A TB Test Panel B TB Test Positive Cntr 11/12/24 11/12/24 11/12/24 06:32 11:19 16:20 WBC RBC Hgb Hct MCV MCH MCHC RDW Plt Count MPV Immature Gran % (Auto) Neut % (Auto) Lymph % (Auto) [place] % (Auto) Eos % (Auto) Baso % (Auto) Lymph # (Auto) [place] # (Auto) Eos # (Auto) Baso # (Auto) Abs Immat Gran (auto) Absolute Neuts (auto) Absolute Nucleated RBC Nucleated RBC % (auto) Smear Tech's Comments Hold Purple Top VBG pH VBG pCO2 VBG pO2 VBG HCO3 VBG O2 Saturation VBG Base Excess Sodium Potassium Chloride Carbon Dioxide Anion Gap BUN Creatinine Estim Creat Clear Calc Estimated GFR POC Glucose 171 H 121 H 170 H Random Glucose Estimat Average Glucose Hemoglobin A1c % Osmolality Lactic Acid Calcium Magnesium Iron TIBC % Saturation Unsat Iron Binding Total Bilirubin AST ALT Alkaline Phosphatase Total Protein Albumin Triglycerides Cholesterol LDL Cholesterol, Calc HDL Cholesterol Lipase TSH Free T4 Urine Color Urine Appearance Urine pH Ur Specific [place] Urine Protein Urine Glucose (UA) Urine Ketones Urine Blood Urine Nitrite Ur Leukocyte Esterase Urine RBC Urine WBC Ur Squamous Epith Cells Urine Bacteria Hyaline Casts Urine Osmolality Ur Random Sodium Urine Opiates Screen Ur Buprenorphine Scrn Ur Oxycodone Screen Urine Methadone Screen Urine Fentanyl Screen Ur Barbiturates Screen Carbamazepine Ur Phencyclidine Scrn Ur Amphetamines Screen U Benzodiazepines Scrn Urine Cocaine Screen U Marijuana (THC) Screen COVID-19 ([facility]) COVID-19 Clin Com Influenza Type A (AMANDA) Influenza Type B (AMANDA) Influenza A & B Note TB Test (T-Spot) Com TB Test Nil Control TB Test Panel A TB Test Panel B TB Test Positive [facility] 11/13/24 11/13/24 11/13/24 06:41 09:09 11:20 WBC RBC Hgb Hct MCV MCH MCHC RDW Plt Count MPV Immature Gran % (Auto) Neut % (Auto) Lymph % (Auto) [place] % (Auto) Eos % (Auto) Baso % (Auto) Lymph # (Auto) [place] # (Auto) Eos # (Auto) Baso # (Auto) Abs Immat Gran (auto) Absolute Neuts (auto) Absolute Nucleated RBC Nucleated RBC % (auto) Smear Tech's Comments Hold Purple Top VBG pH VBG pCO2 VBG pO2 VBG HCO3 VBG O2 Saturation VBG Base Excess Sodium Potassium Chloride Carbon Dioxide Anion Gap BUN Creatinine Estim Creat Clear Calc Estimated GFR POC Glucose 173 H 181 H Random Glucose Estimat Average Glucose Hemoglobin A1c % Osmolality Lactic Acid Calcium Magnesium Iron TIBC % Saturation Unsat Iron Binding Total Bilirubin AST ALT Alkaline Phosphatase Total Protein Albumin Triglycerides Cholesterol LDL Cholesterol, Calc HDL Cholesterol Lipase TSH Free T4 Urine Color Urine Appearance Urine pH Ur Specific [place] Urine Protein Urine Glucose (UA) Urine Ketones Urine Blood Urine Nitrite Ur Leukocyte Esterase Urine RBC Urine WBC Ur Squamous Epith Cells Urine Bacteria Hyaline Casts Urine Osmolality Ur Random Sodium Urine Opiates Screen Ur Buprenorphine Scrn Ur Oxycodone Screen Urine Methadone Screen Urine Fentanyl Screen Ur Barbiturates Screen Carbamazepine 9.1 Ur Phencyclidine Scrn Ur Amphetamines Screen U Benzodiazepines Scrn Urine Cocaine Screen U Marijuana (THC) Screen COVID-19 ([facility]) COVID-19 Clin Com Influenza Type A (AMANDA) Influenza Type B (AMANDA) Influenza A & B Note TB Test (T-Spot) Com TB Test Nil Control TB Test Panel A TB Test Panel B TB Test Positive Cntrl 11/13/24 11/13/24 11/13/24 11:27 11:30 15:40 WBC RBC Hgb Hct MCV MCH MCHC RDW Plt Count MPV Immature Gran % (Auto) Neut % (Auto) Lymph % (Auto) [place] % (Auto) Eos % (Auto) Baso % (Auto) Lymph # (Auto) [place] # (Auto) Eos # (Auto) Baso # (Auto) Abs Immat Gran (auto) Absolute Neuts (auto) Absolute Nucleated RBC Nucleated RBC % (auto) Smear Tech's Comments Hold Purple Top SEE NOTE VBG pH VBG pCO2 VBG pO2 VBG HCO3 VBG O2 Saturation VBG Base Excess Sodium 127 L Potassium 4.8 Chloride 95 L Carbon Dioxide 24 Anion Gap 13 BUN 21 H Creatinine 0.85 Estim Creat Clear Calc 39.5 Estimated GFR > 60 POC Glucose Random Glucose 191 H Estimat Average Glucose Hemoglobin A1c % Osmolality 271 L Lactic Acid Calcium 9.4 Magnesium Iron TIBC % Saturation Unsat Iron Binding Total Bilirubin 0.5 AST 16 ALT 21 Alkaline Phosphatase 68 Total Protein 7.2 Albumin 4.6 Triglycerides Cholesterol LDL Cholesterol, Calc HDL Cholesterol Lipase TSH Free T4 Urine Color Urine Appearance Urine pH Ur Specific [place] Urine Protein Urine Glucose (UA) Urine Ketones Urine Blood Urine Nitrite Ur Leukocyte Esterase Urine RBC Urine WBC Ur Squamous Epith Cells Urine Bacteria Hyaline Casts Urine Osmolality Ur Random Sodium Urine Opiates Screen Ur Buprenorphine Scrn Ur Oxycodone Screen Urine Methadone Screen Urine Fentanyl Screen Ur Barbiturates Screen Carbamazepine Ur Phencyclidine Scrn Ur Amphetamines Screen U Benzodiazepines Scrn Urine Cocaine Screen U Marijuana (THC) Screen COVID-19 ([facility]) COVID-19 Clin Com Influenza Type A (AMANDA) Influenza Type B (AMANDA) Influenza A & B Note TB Test (T-Spot) Com TB Test Nil Control TB Test Panel A TB Test Panel B TB Test Positive Cntrl 11/13/24 11/13/24 11/13/24 16:06 17:02 20:40 WBC RBC Hgb Hct MCV MCH MCHC RDW Plt Count MPV Immature Gran % (Auto) Neut % (Auto) Lymph % (Auto) [place] % (Auto) Eos % (Auto) Baso % (Auto) Lymph # (Auto) [place] # (Auto) Eos # (Auto) Baso # (Auto) Abs Immat Gran (auto) Absolute Neuts (auto) Absolute Nucleated RBC Nucleated RBC % (auto) Smear Tech's Comments Hold Purple Top VBG pH VBG pCO2 VBG pO2 VBG HCO3 VBG O2 Saturation VBG Base Excess Sodium Potassium Chloride Carbon Dioxide Anion Gap BUN Creatinine Estim Creat Clear Calc Estimated GFR POC Glucose 177 H 179 H Random Glucose Estimat Average Glucose Hemoglobin A1c % Osmolality Lactic Acid Calcium Magnesium Iron TIBC % Saturation Unsat Iron Binding Total Bilirubin AST ALT Alkaline Phosphatase Total Protein Albumin Triglycerides Cholesterol LDL Cholesterol, Calc HDL Cholesterol Lipase TSH Free T4 Urine Color Urine Appearance Urine pH Ur Specific [place] Urine Protein Urine Glucose (UA) Urine Ketones Urine Blood Urine Nitrite Ur Leukocyte Esterase Urine RBC Urine WBC Ur Squamous Epith Cells Urine Bacteria Hyaline Casts Urine Osmolality 485 Ur Random Sodium 41.0 Urine Opiates Screen Ur Buprenorphine Scrn Ur Oxycodone Screen Urine Methadone Screen Urine Fentanyl Screen Ur Barbiturates Screen Carbamazepine Ur Phencyclidine Scrn Ur Amphetamines Screen U Benzodiazepines Scrn Urine Cocaine Screen U Marijuana (THC) Screen COVID-19 ([facility]) COVID-19 Clin Com Influenza Type A (AMANDA) Influenza Type B (AMANDA) Influenza A & B Note TB Test (T-Spot) Com TB Test Nil Control TB Test Panel A TB Test Panel B TB Test Positive Cntrl 11/14/24 11/14/24 11/14/24 06:25 07:19 11:34 WBC RBC Hgb Hct MCV MCH MCHC RDW Plt Count MPV Immature Gran % (Auto) Neut % (Auto) Lymph % (Auto) [place] % (Auto) Eos % (Auto) Baso % (Auto) Lymph # (Auto) [place] # (Auto) Eos # (Auto) Baso # (Auto) Abs Immat Gran (auto) Absolute Neuts (auto) Absolute Nucleated RBC Nucleated RBC % (auto) Smear Tech's Comments Hold Purple Top VBG pH VBG pCO2 VBG pO2 VBG HCO3 VBG O2 Saturation VBG Base Excess Sodium 132 L Potassium 5.0 Chloride 97 Carbon Dioxide 27 Anion Gap 13 BUN 26 H Creatinine 0.93 Estim Creat Clear Calc 36.1 Estimated GFR 59 POC Glucose 170 H 132 H Random Glucose 193 H Estimat Average Glucose Hemoglobin A1c % Osmolality Lactic Acid Calcium 9.5 Magnesium Iron TIBC % Saturation Unsat Iron Binding Total Bilirubin AST ALT Alkaline Phosphatase Total Protein Albumin Triglycerides Cholesterol LDL Cholesterol, Calc HDL Cholesterol Lipase TSH Free T4 Urine Color Urine Appearance Urine pH Ur Specific [place] Urine Protein Urine Glucose (UA) Urine Ketones Urine Blood Urine Nitrite Ur Leukocyte Esterase Urine RBC Urine WBC Ur Squamous Epith Cells Urine Bacteria Hyaline Casts Urine Osmolality Ur Random Sodium Urine Opiates Screen Ur Buprenorphine Scrn Ur Oxycodone Screen Urine Methadone Screen Urine Fentanyl Screen Ur Barbiturates Screen Carbamazepine Ur Phencyclidine Scrn Ur Amphetamines Screen U Benzodiazepines Scrn Urine Cocaine Screen U Marijuana (THC) Screen COVID-19 ([facility]) COVID-19 Clin Com Influenza Type A (AMANDA) Influenza Type B (AMANDA) Influenza A & B Note TB Test (T-Spot) Com TB Test Nil Control TB Test Panel A TB Test Panel B TB Test Positive [facility] 11/14/24 11/14/24 11/15/24 15:59 20:36 06:24 WBC RBC Hgb Hct MCV MCH MCHC RDW Plt Count MPV Immature Gran % (Auto) Neut % (Auto) Lymph % (Auto) [place] % (Auto) Eos % (Auto) Baso % (Auto) Lymph # (Auto) [place] # (Auto) Eos # (Auto) Baso # (Auto) Abs Immat Gran (auto) Absolute Neuts (auto) Absolute Nucleated RBC Nucleated RBC % (auto) Smear Tech's Comments Hold Purple Top VBG pH VBG pCO2 VBG pO2 VBG HCO3 VBG O2 Saturation VBG Base Excess Sodium Potassium Chloride Carbon Dioxide Anion Gap BUN Creatinine Estim Creat Clear Calc Estimated GFR POC Glucose 199 H 98 199 H Random Glucose Estimat Average Glucose Hemoglobin A1c % Osmolality Lactic Acid Calcium Magnesium Iron TIBC % Saturation Unsat Iron Binding Total Bilirubin AST ALT Alkaline Phosphatase Total Protein Albumin Triglycerides Cholesterol LDL Cholesterol, Calc HDL Cholesterol Lipase TSH Free T4 Urine Color Urine Appearance Urine pH Ur Specific [place] Urine Protein Urine Glucose (UA) Urine Ketones Urine Blood Urine Nitrite Ur Leukocyte Esterase Urine RBC Urine WBC Ur Squamous Epith Cells Urine Bacteria Hyaline Casts Urine Osmolality Ur Random Sodium Urine Opiates Screen Ur Buprenorphine Scrn Ur Oxycodone Screen Urine Methadone Screen Urine Fentanyl Screen Ur Barbiturates Screen Carbamazepine Ur Phencyclidine Scrn Ur Amphetamines Screen U Benzodiazepines Scrn Urine Cocaine Screen U Marijuana (THC) Screen COVID-19 ([facility]) COVID-19 Clin Com Influenza Type A (AMANDA) Influenza Type B (AMANDA) Influenza A & B Note TB Test (T-Spot) Com TB Test Nil Control TB Test Panel A TB Test Panel B TB Test Positive Cntrl 11/15/24 11/15/24 11/15/24 11:35 16:20 20:49 WBC RBC Hgb Hct MCV MCH MCHC RDW Plt Count MPV Immature Gran % (Auto) Neut % (Auto) Lymph % (Auto) [place] % (Auto) Eos % (Auto) Baso % (Auto) Lymph # (Auto) [place] # (Auto) Eos # (Auto) Baso # (Auto) Abs Immat Gran (auto) Absolute Neuts (auto) Absolute Nucleated RBC Nucleated RBC % (auto) Smear Tech's Comments Hold Purple Top VBG pH VBG pCO2 VBG pO2 VBG HCO3 VBG O2 Saturation VBG Base Excess Sodium Potassium Chloride Carbon Dioxide Anion Gap BUN Creatinine Estim Creat Clear Calc Estimated GFR POC Glucose 155 H 143 H 138 H Random Glucose Estimat Average Glucose Hemoglobin A1c % Osmolality Lactic Acid Calcium Magnesium Iron TIBC % Saturation Unsat Iron Binding Total Bilirubin AST ALT Alkaline Phosphatase Total Protein Albumin Triglycerides Cholesterol LDL Cholesterol, Calc HDL Cholesterol Lipase TSH Free T4 Urine Color Urine Appearance Urine pH Ur Specific [place] Urine Protein Urine Glucose (UA) Urine Ketones Urine Blood Urine Nitrite Ur Leukocyte Esterase Urine RBC Urine WBC Ur Squamous Epith Cells Urine Bacteria Hyaline Casts Urine Osmolality Ur Random Sodium Urine Opiates Screen Ur Buprenorphine Scrn Ur Oxycodone Screen Urine Methadone Screen Urine Fentanyl Screen Ur Barbiturates Screen Carbamazepine Ur Phencyclidine Scrn Ur Amphetamines Screen U Benzodiazepines Scrn Urine Cocaine Screen U Marijuana (THC) Screen COVID-19 ([facility]) COVID-19 Clin Com Influenza Type A (AMANDA) Influenza Type B (AMANDA) Influenza A & B Note TB Test (T-Spot) Com TB Test Nil Control TB Test Panel A TB Test Panel [facility]16[facility] 11/16/24 11/16/24 06:35 11:24 13:55 WBC RBC Hgb Hct MCV MCH MCHC RDW Plt Count MPV Immature Gran % (Auto) Neut % (Auto) Lymph % (Auto) [place] % (Auto) Eos % (Auto) Baso % (Auto) Lymph # (Auto) [place] # (Auto) Eos # (Auto) Baso # (Auto) Abs Immat Gran (auto) Absolute Neuts (auto) Absolute Nucleated RBC Nucleated RBC % (auto) Smear Tech's Comments Hold Purple Top VBG pH VBG pCO2 VBG pO2 VBG HCO3 VBG O2 Saturation VBG Base Excess Sodium 134 L Potassium 4.7 Chloride 99 Carbon Dioxide 25 Anion Gap 15 BUN 21 H Creatinine 0.87 Estim Creat Clear Calc 38.7 Estimated GFR > 60 POC Glucose 192 H 152 H Random Glucose 58 L* Estimat Average Glucose Hemoglobin A1c % Osmolality Lactic Acid Calcium 9.6 Magnesium Iron TIBC % Saturation Unsat Iron Binding Total Bilirubin AST ALT Alkaline Phosphatase Total Protein Albumin Triglycerides Cholesterol LDL Cholesterol, Calc HDL Cholesterol Lipase TSH Free T4 Urine Color Urine Appearance Urine pH Ur Specific [place] Urine Protein Urine Glucose (UA) Urine Ketones Urine Blood Urine Nitrite Ur Leukocyte Esterase Urine RBC Urine WBC Ur Squamous Epith Cells Urine Bacteria Hyaline Casts Urine Osmolality Ur Random Sodium Urine Opiates Screen Ur Buprenorphine Scrn Ur Oxycodone Screen Urine Methadone Screen Urine Fentanyl Screen Ur Barbiturates Screen Carbamazepine Ur Phencyclidine Scrn Ur Amphetamines Screen U Benzodiazepines Scrn Urine Cocaine Screen U Marijuana (THC) Screen COVID-19 ([facility]) COVID-19 Clin Com Influenza Type A (AMANDA) Influenza Type B (AMANDA) Influenza A & B Note TB Test (T-Spot) Com TB Test Nil Control TB Test Panel A TB Test Panel B TB Test Positive [facility] 11/16/24 11/16/24 11/16/24 14:34 16:22 20:02 WBC RBC Hgb Hct MCV MCH MCHC RDW Plt Count MPV Immature Gran % (Auto) Neut % (Auto) Lymph % (Auto) [place] % (Auto) Eos % (Auto) Baso % (Auto) Lymph # (Auto) [place] # (Auto) Eos # (Auto) Baso # (Auto) Abs Immat Gran (auto) Absolute Neuts (auto) Absolute Nucleated RBC Nucleated RBC % (auto) Smear Tech's Comments Hold Purple Top VBG pH VBG pCO2 VBG pO2 VBG HCO3 VBG O2 Saturation VBG Base Excess Sodium Potassium Chloride Carbon Dioxide Anion Gap BUN Creatinine Estim Creat Clear Calc Estimated GFR POC Glucose 69 126 H 141 H Random Glucose Estimat Average Glucose Hemoglobin A1c % Osmolality Lactic Acid Calcium Magnesium Iron TIBC % Saturation Unsat Iron Binding Total Bilirubin AST ALT Alkaline Phosphatase Total Protein Albumin Triglycerides Cholesterol LDL Cholesterol, Calc HDL Cholesterol Lipase TSH Free T4 Urine Color Urine Appearance Urine pH Ur Specific [place] Urine Protein Urine Glucose (UA) Urine Ketones Urine Blood Urine Nitrite Ur Leukocyte Esterase Urine RBC Urine WBC Ur Squamous Epith Cells Urine Bacteria Hyaline Casts Urine Osmolality Ur Random Sodium Urine Opiates Screen Ur Buprenorphine Scrn Ur Oxycodone Screen Urine Methadone Screen Urine Fentanyl Screen Ur Barbiturates Screen Carbamazepine Ur Phencyclidine Scrn Ur Amphetamines Screen U Benzodiazepines Scrn Urine Cocaine Screen U Marijuana (THC) Screen COVID-19 ([facility]ESA) COVID-19 Clin Com Influenza Type A (AMANDA) Influenza Type B (AMANDA) Influenza A & B Note TB Test (T-Spot) Com TB Test Nil Control TB Test Panel A TB Test Panel B TB Test Positive Cnt 11/17/24 11/17/24 11/17/24 06:32 11:12 14:40 WBC RBC Hgb Hct MCV MCH MCHC RDW Plt Count MPV Immature Gran % (Auto) Neut % (Auto) Lymph % (Auto) [place] % (Auto) Eos % (Auto) Baso % (Auto) Lymph # (Auto) [place] # (Auto) Eos # (Auto) Baso # (Auto) Abs Immat Gran (auto) Absolute Neuts (auto) Absolute Nucleated RBC Nucleated RBC % (auto) Smear Tech's Comments Hold Purple Top VBG pH VBG pCO2 VBG pO2 VBG HCO3 VBG O2 Saturation VBG Base Excess Sodium Potassium Chloride Carbon Dioxide Anion Gap BUN Creatinine Estim Creat Clear Calc Estimated GFR POC Glucose 177 H 184 H 149 H Random Glucose Estimat Average Glucose Hemoglobin A1c % Osmolality Lactic Acid Calcium Magnesium Iron TIBC % Saturation Unsat Iron Binding Total Bilirubin AST ALT Alkaline Phosphatase Total Protein Albumin Triglycerides Cholesterol LDL Cholesterol, Calc HDL Cholesterol Lipase TSH Free T4 Urine Color Urine Appearance Urine pH Ur Specific [place] Urine Protein Urine Glucose (UA) Urine Ketones Urine Blood Urine Nitrite Ur Leukocyte Esterase Urine RBC Urine WBC Ur Squamous Epith Cells Urine Bacteria Hyaline Casts Urine Osmolality Ur Random Sodium Urine Opiates Screen Ur Buprenorphine Scrn Ur Oxycodone Screen Urine Methadone Screen Urine Fentanyl Screen Ur Barbiturates Screen Carbamazepine Ur Phencyclidine Scrn Ur Amphetamines Screen U Benzodiazepines Scrn Urine Cocaine Screen U Marijuana (THC) Screen COVID-19 (TRESA) COVID-19 Clin Com Influenza Type A (AMANDA) Influenza Type B (AMANDA) Influenza A & B Note TB Test (T-Spot) Com TB Test Nil Control TB Test Panel A TB Test Panel B TB Test Positive Cntrl 11/17/24 11/18/24 11/18/24 16:18 06:08 11:15 WBC RBC Hgb Hct MCV MCH MCHC RDW Plt Count MPV Immature Gran % (Auto) Neut % (Auto) Lymph % (Auto) [place] % (Auto) Eos % (Auto) Baso % (Auto) Lymph # (Auto) [place] # (Auto) Eos # (Auto) Baso # (Auto) Abs Immat Gran (auto) Absolute Neuts (auto) Absolute Nucleated RBC Nucleated RBC % (auto) Smear Tech's Comments Hold Purple Top VBG pH VBG pCO2 VBG pO2 VBG HCO3 VBG O2 Saturation VBG Base Excess Sodium Potassium Chloride Carbon Dioxide Anion Gap BUN Creatinine Estim Creat Clear Calc Estimated GFR POC Glucose 119 H 192 H 127 H Random Glucose Estimat Average Glucose Hemoglobin A1c % Osmolality Lactic Acid Calcium Magnesium Iron TIBC % Saturation Unsat Iron Binding Total Bilirubin AST ALT Alkaline Phosphatase Total Protein Albumin Triglycerides Cholesterol LDL Cholesterol, Calc HDL Cholesterol Lipase TSH Free T4 Urine Color Urine Appearance Urine pH Ur Specific [place] Urine Protein Urine Glucose (UA) Urine Ketones Urine Blood Urine Nitrite Ur Leukocyte Esterase Urine RBC Urine WBC Ur Squamous Epith Cells Urine Bacteria Hyaline Casts Urine Osmolality Ur Random Sodium Urine Opiates Screen Ur Buprenorphine Scrn Ur Oxycodone Screen Urine Methadone Screen Urine Fentanyl Screen Ur Barbiturates Screen Carbamazepine Ur Phencyclidine Scrn Ur Amphetamines Screen U Benzodiazepines Scrn Urine Cocaine Screen U Marijuana (THC) Screen COVID-19 (TRESA) COVID-19 Clin Com Influenza Type A (AMANDA) Influenza Type B (AMANDA) Influenza A & B Note TB Test (T-Spot) Com TB Test Nil Control TB Test Panel A TB Test Panel B TB Test Positive Cntrl 11/18/24 11/18/24 11/18/24 13:33 16:18 21:19 WBC RBC Hgb Hct MCV MCH MCHC RDW Plt Count MPV Immature Gran % (Auto) Neut % (Auto) Lymph % (Auto) [place] % (Auto) Eos % (Auto) Baso % (Auto) Lymph # (Auto) [place] # (Auto) Eos # (Auto) Baso # (Auto) Abs Immat Gran (auto) Absolute Neuts (auto) Absolute Nucleated RBC Nucleated RBC % (auto) Smear Tech's Comments Hold Purple Top VBG pH VBG pCO2 VBG pO2 VBG HCO3 VBG O2 Saturation VBG Base Excess Sodium 137 Potassium 4.9 Chloride 105 Carbon Dioxide 25 Anion Gap 12 BUN 27 H Creatinine 1.03 Estim Creat Clear Calc 32.6 Estimated GFR 52 POC Glucose 110 154 H Random Glucose 81 Estimat Average Glucose Hemoglobin A1c % Osmolality Lactic Acid Calcium 9.1 Magnesium Iron TIBC % Saturation Unsat Iron Binding Total Bilirubin 0.3 AST 18 ALT 26 Alkaline Phosphatase 67 Total Protein 7.1 Albumin 4.4 Triglycerides Cholesterol LDL Cholesterol, Calc HDL Cholesterol Lipase TSH Free T4 Urine Color Urine Appearance Urine pH Ur Specific [place] Urine Protein Urine Glucose (UA) Urine Ketones Urine Blood Urine Nitrite Ur Leukocyte Esterase Urine RBC Urine WBC Ur Squamous Epith Cells Urine Bacteria Hyaline Casts Urine Osmolality Ur Random Sodium Urine Opiates Screen Ur Buprenorphine Scrn Ur Oxycodone Screen Urine Methadone Screen Urine Fentanyl Screen Ur Barbiturates Screen Carbamazepine Ur Phencyclidine Scrn Ur Amphetamines Screen U Benzodiazepines Scrn Urine Cocaine Screen U Marijuana (THC) Screen COVID-19 (TREAS) COVID-19 Clin Com Influenza Type A (AMANDA) Influenza Type B (AMANDA) Influenza A & B Note TB Test (T-Spot) Com TB Test Nil Control TB Test Panel A TB Test Panel B TB Test Positive Cntr 11/19/24 11/19/24 11/19/24 06:30 11:23 15:59 WBC RBC Hgb Hct MCV MCH MCHC RDW Plt Count MPV Immature Gran % (Auto) Neut % (Auto) Lymph % (Auto) [place] % (Auto) Eos % (Auto) Baso % (Auto) Lymph # (Auto) [place] # (Auto) Eos # (Auto) Baso # (Auto) Abs Immat Gran (auto) Absolute Neuts (auto) Absolute Nucleated RBC Nucleated RBC % (auto) Smear Tech's Comments Hold Purple Top VBG pH VBG pCO2 VBG pO2 VBG HCO3 VBG O2 Saturation VBG Base Excess Sodium Potassium Chloride Carbon Dioxide Anion Gap BUN Creatinine Estim Creat Clear Calc Estimated GFR POC Glucose 178 H 157 H 110 Random Glucose Estimat Average Glucose Hemoglobin A1c % Osmolality Lactic Acid Calcium Magnesium Iron TIBC % Saturation Unsat Iron Binding Total Bilirubin AST ALT Alkaline Phosphatase Total Protein Albumin Triglycerides Cholesterol LDL Cholesterol, Calc HDL Cholesterol Lipase TSH Free T4 Urine Color Urine Appearance Urine pH Ur Specific [place] Urine Protein Urine Glucose (UA) Urine Ketones Urine Blood Urine Nitrite Ur Leukocyte Esterase Urine RBC Urine WBC Ur Squamous Epith Cells Urine Bacteria Hyaline Casts Urine Osmolality Ur Random Sodium Urine Opiates Screen Ur Buprenorphine Scrn Ur Oxycodone Screen Urine Methadone Screen Urine Fentanyl Screen Ur Barbiturates Screen Carbamazepine Ur Phencyclidine Scrn Ur Amphetamines Screen U Benzodiazepines Scrn Urine Cocaine Screen U Marijuana (THC) Screen COVID-19 ([facility]ESA) COVID-19 Clin Com Influenza Type A (AMANDA) Influenza Type B (AMANDA) Influenza A & B Note TB Test (T-Spot) Com TB Test Nil Control TB Test Panel A TB Test Panel B TB Test Positive Cntrl 11/19/24 11/20/24 11/20/24 19:50 06:36 11:02 WBC RBC Hgb Hct MCV MCH MCHC RDW Plt Count MPV Immature Gran % (Auto) Neut % (Auto) Lymph % (Auto) [place] % (Auto) Eos % (Auto) Baso % (Auto) Lymph # (Auto) [place] # (Auto) Eos # (Auto) Baso # (Auto) Abs Immat Gran (auto) Absolute Neuts (auto) Absolute Nucleated RBC Nucleated RBC % (auto) Smear Tech's Comments Hold Purple Top VBG pH VBG pCO2 VBG pO2 VBG HCO3 VBG O2 Saturation VBG Base Excess Sodium 137 Potassium 4.7 Chloride 102 Carbon Dioxide 27 Anion Gap 13 BUN 23 H Creatinine 0.99 Estim Creat Clear Calc 34.0 Estimated GFR 55 POC Glucose 205 H 165 H Random Glucose 129 H Estimat Average Glucose 154 Hemoglobin A1c % 7.0 H Osmolality Lactic Acid Calcium 9.5 Magnesium Iron TIBC % Saturation Unsat Iron Binding Total Bilirubin AST ALT Alkaline Phosphatase Total Protein Albumin Triglycerides Cholesterol LDL Cholesterol, Calc HDL Cholesterol Lipase TSH Free T4 Urine Color Urine Appearance Urine pH Ur Specific [place] Urine Protein Urine Glucose (UA) Urine Ketones Urine Blood Urine Nitrite Ur Leukocyte Esterase Urine RBC Urine WBC Ur Squamous Epith Cells Urine Bacteria Hyaline Casts Urine Osmolality Ur Random Sodium Urine Opiates Screen Ur Buprenorphine Scrn Ur Oxycodone Screen Urine Methadone Screen Urine Fentanyl Screen Ur Barbiturates Screen Carbamazepine Ur Phencyclidine Scrn Ur Amphetamines Screen U Benzodiazepines Scrn Urine Cocaine Screen U Marijuana (THC) Screen COVID-19 (TRESA) COVID-19 Clin Com Influenza Type A (AMANDA) Influenza Type B (AMANDA) Influenza A & B Note TB Test (T-Spot) Com TB Test Nil Control TB Test Panel A TB Test Panel B TB Test Positive Cntrl 11/20/24 11/20/24 11/20/24 11:33 16:23 20:46 WBC RBC Hgb Hct MCV MCH MCHC RDW Plt Count MPV Immature Gran % (Auto) Neut % (Auto) Lymph % (Auto) [place] % (Auto) Eos % (Auto) Baso % (Auto) Lymph # (Auto) [place] # (Auto) Eos # (Auto) Baso # (Auto) Abs Immat Gran (auto) Absolute Neuts (auto) Absolute Nucleated RBC Nucleated RBC % (auto) Smear Tech's Comments Hold Purple Top VBG pH VBG pCO2 VBG pO2 VBG HCO3 VBG O2 Saturation VBG Base Excess Sodium Potassium Chloride Carbon Dioxide Anion Gap BUN Creatinine Estim Creat Clear Calc Estimated GFR POC Glucose 106 202 H 162 H Random Glucose Estimat Average Glucose Hemoglobin A1c % Osmolality Lactic Acid Calcium Magnesium Iron TIBC % Saturation Unsat Iron Binding Total Bilirubin AST ALT Alkaline Phosphatase Total Protein Albumin Triglycerides Cholesterol LDL Cholesterol, Calc HDL Cholesterol Lipase TSH Free T4 Urine Color Urine Appearance Urine pH Ur Specific [place] Urine Protein Urine Glucose (UA) Urine Ketones Urine Blood Urine Nitrite Ur Leukocyte Esterase Urine RBC Urine WBC Ur Squamous Epith Cells Urine Bacteria Hyaline Casts Urine Osmolality Ur Random Sodium Urine Opiates Screen Ur Buprenorphine Scrn Ur Oxycodone Screen Urine Methadone Screen Urine Fentanyl Screen Ur Barbiturates Screen Carbamazepine Ur Phencyclidine Scrn Ur Amphetamines Screen U Benzodiazepines Scrn Urine Cocaine Screen U Marijuana (THC) Screen COVID-19 (TRESA) COVID-19 Clin Com Influenza Type A (AMANDA) Influenza Type B (AMANDA) Influenza A & B Note TB Test (T-Spot) Com TB Test Nil Control TB Test Panel A TB Test Panel B TB Test Positive [facility] 11/21/24 11/21/24 11/21/24 06:31 11:24 16:25 WBC RBC Hgb Hct MCV MCH MCHC RDW Plt Count MPV Immature Gran % (Auto) Neut % (Auto) Lymph % (Auto) [place] % (Auto) Eos % (Auto) Baso % (Auto) Lymph # (Auto) [place] # (Auto) Eos # (Auto) Baso # (Auto) Abs Immat Gran (auto) Absolute Neuts (auto) Absolute Nucleated RBC Nucleated RBC % (auto) Smear Tech's Comments Hold Purple Top VBG pH VBG pCO2 VBG pO2 VBG HCO3 VBG O2 Saturation VBG Base Excess Sodium Potassium Chloride Carbon Dioxide Anion Gap BUN Creatinine Estim Creat Clear Calc Estimated GFR POC Glucose 189 H 196 H 110 Random Glucose Estimat Average Glucose Hemoglobin A1c % Osmolality Lactic Acid Calcium Magnesium Iron TIBC % Saturation Unsat Iron Binding Total Bilirubin AST ALT Alkaline Phosphatase Total Protein Albumin Triglycerides Cholesterol LDL Cholesterol, Calc HDL Cholesterol Lipase TSH Free T4 Urine Color Urine Appearance Urine pH Ur Specific [place] Urine Protein Urine Glucose (UA) Urine Ketones Urine Blood Urine Nitrite Ur Leukocyte Esterase Urine RBC Urine WBC Ur Squamous Epith Cells Urine Bacteria Hyaline Casts Urine Osmolality Ur Random Sodium Urine Opiates Screen Ur Buprenorphine Scrn Ur Oxycodone Screen Urine Methadone Screen Urine Fentanyl Screen Ur Barbiturates Screen Carbamazepine Ur Phencyclidine Scrn Ur Amphetamines Screen U Benzodiazepines Scrn Urine Cocaine Screen U Marijuana (THC) Screen COVID-19 (TRESA) COVID-19 Clin Com Influenza Type A (AMANDA) Influenza Type B (AMANDA) Influenza A & B Note TB Test (T-Spot) Com TB Test Nil Control TB Test Panel A TB Test Panel B TB Test Positive [facility] 11/21/24 11/22/24 11/22/24 21:16 06:56 11:14 WBC RBC Hgb Hct MCV MCH MCHC RDW Plt Count MPV Immature Gran % (Auto) Neut % (Auto) Lymph % (Auto) [place] % (Auto) Eos % (Auto) Baso % (Auto) Lymph # (Auto) [place] # (Auto) Eos # (Auto) Baso # (Auto) Abs Immat Gran (auto) Absolute Neuts (auto) Absolute Nucleated RBC Nucleated RBC % (auto) Smear Tech's Comments Hold Purple Top VBG pH VBG pCO2 VBG pO2 VBG HCO3 VBG O2 Saturation VBG Base Excess Sodium Potassium Chloride Carbon Dioxide Anion Gap BUN Creatinine Estim Creat Clear Calc Estimated GFR POC Glucose 138 H 195 H 224 H Random Glucose Estimat Average Glucose Hemoglobin A1c % Osmolality Lactic Acid Calcium Magnesium Iron TIBC % Saturation Unsat Iron Binding Total Bilirubin AST ALT Alkaline Phosphatase Total Protein Albumin Triglycerides Cholesterol LDL Cholesterol, Calc HDL Cholesterol Lipase TSH Free T4 Urine Color Urine Appearance Urine pH Ur Specific [place] Urine Protein Urine Glucose (UA) Urine Ketones Urine Blood Urine Nitrite Ur Leukocyte Esterase Urine RBC Urine WBC Ur Squamous Epith Cells Urine Bacteria Hyaline Casts Urine Osmolality Ur Random Sodium Urine Opiates Screen Ur Buprenorphine Scrn Ur Oxycodone Screen Urine Methadone Screen Urine Fentanyl Screen Ur Barbiturates Screen Carbamazepine Ur Phencyclidine Scrn Ur Amphetamines Screen U Benzodiazepines Scrn Urine Cocaine Screen U Marijuana (THC) Screen COVID-19 (TRESA) COVID-19 Clin Com Influenza Type A (AMANDA) Influenza Type B (AMANDA) Influenza A & B Note TB Test (T-Spot) Com TB Test Nil Control TB Test Panel A TB Test Panel B TB Test Positive Cntrl 11/22/24 11/22/24 11/23/24 16:28 21:06 06:14 WBC RBC Hgb Hct MCV MCH MCHC RDW Plt Count MPV Immature Gran % (Auto) Neut % (Auto) Lymph % (Auto) [place] % (Auto) Eos % (Auto) Baso % (Auto) Lymph # (Auto) [place] # (Auto) Eos # (Auto) Baso # (Auto) Abs Immat Gran (auto) Absolute Neuts (auto) Absolute Nucleated RBC Nucleated RBC % (auto) Smear Tech's Comments Hold Purple Top VBG pH VBG pCO2 VBG pO2 VBG HCO3 VBG O2 Saturation VBG Base Excess Sodium Potassium Chloride Carbon Dioxide Anion Gap BUN Creatinine Estim Creat Clear Calc Estimated GFR POC Glucose 129 H 94 191 H Random Glucose Estimat Average Glucose Hemoglobin A1c % Osmolality Lactic Acid Calcium Magnesium Iron TIBC % Saturation Unsat Iron Binding Total Bilirubin AST ALT Alkaline Phosphatase Total Protein Albumin Triglycerides Cholesterol LDL Cholesterol, Calc HDL Cholesterol Lipase TSH Free T4 Urine Color Urine Appearance Urine pH Ur Specific [place] Urine Protein Urine Glucose (UA) Urine Ketones Urine Blood Urine Nitrite Ur Leukocyte Esterase Urine RBC Urine WBC Ur Squamous Epith Cells Urine Bacteria Hyaline Casts Urine Osmolality Ur Random Sodium Urine Opiates Screen Ur Buprenorphine Scrn Ur Oxycodone Screen Urine Methadone Screen Urine Fentanyl Screen Ur Barbiturates Screen Carbamazepine Ur Phencyclidine Scrn Ur Amphetamines Screen U Benzodiazepines Scrn Urine Cocaine Screen U Marijuana (THC) Screen COVID-19 (TRESA) COVID-19 Clin Com Influenza Type A (AMANDA) Influenza Type B (AMANDA) Influenza A & B Note TB Test (T-Spot) Com TB Test Nil Control TB Test Panel A TB Test Panel B TB Test Positive Cntr 11/23/24 11/24/24 11/25/24 11:22 06:16 06:42 WBC RBC Hgb Hct MCV MCH MCHC RDW Plt Count MPV Immature Gran % (Auto) Neut % (Auto) Lymph % (Auto) [place] % (Auto) Eos % (Auto) Baso % (Auto) Lymph # (Auto) [place] # (Auto) Eos # (Auto) Baso # (Auto) Abs Immat Gran (auto) Absolute Neuts (auto) Absolute Nucleated RBC Nucleated RBC % (auto) Smear Tech's Comments Hold Purple Top VBG pH VBG pCO2 VBG pO2 VBG HCO3 VBG O2 Saturation VBG Base Excess Sodium Potassium Chloride Carbon Dioxide Anion Gap BUN Creatinine Estim Creat Clear Calc Estimated GFR POC Glucose 188 H 184 H 167 H Random Glucose Estimat Average Glucose Hemoglobin A1c % Osmolality Lactic Acid Calcium Magnesium Iron TIBC % Saturation Unsat Iron Binding Total Bilirubin AST ALT Alkaline Phosphatase Total Protein Albumin Triglycerides Cholesterol LDL Cholesterol, Calc HDL Cholesterol Lipase TSH Free T4 Urine Color Urine Appearance Urine pH Ur Specific [place] Urine Protein Urine Glucose (UA) Urine Ketones Urine Blood Urine Nitrite Ur Leukocyte Esterase Urine RBC Urine WBC Ur Squamous Epith Cells Urine Bacteria Hyaline Casts Urine Osmolality Ur Random Sodium Urine Opiates Screen Ur Buprenorphine Scrn Ur Oxycodone Screen Urine Methadone Screen Urine Fentanyl Screen Ur Barbiturates Screen Carbamazepine Ur Phencyclidine Scrn Ur Amphetamines Screen U Benzodiazepines Scrn Urine Cocaine Screen U Marijuana (THC) Screen COVID-19 (TRESA) COVID-19 Clin Com Influenza Type A (AMANDA) Influenza Type B (AMANDA) Influenza A & B Note TB Test (T-Spot) Com TB Test Nil Control TB Test Panel A TB Test Panel B TB Test Positive Cnt 11/26/24 11/27/24 11/28/24 06:23 06:32 06:13 WBC RBC Hgb Hct MCV MCH MCHC RDW Plt Count MPV Immature Gran % (Auto) Neut % (Auto) Lymph % (Auto) [place] % (Auto) Eos % (Auto) Baso % (Auto) Lymph # (Auto) [place] # (Auto) Eos # (Auto) Baso # (Auto) Abs Immat Gran (auto) Absolute Neuts (auto) Absolute Nucleated RBC Nucleated RBC % (auto) Smear Tech's Comments Hold Purple Top VBG pH VBG pCO2 VBG pO2 VBG HCO3 VBG O2 Saturation VBG Base Excess Sodium Potassium Chloride Carbon Dioxide Anion Gap BUN Creatinine Estim Creat Clear Calc Estimated GFR POC Glucose 166 H 167 H 159 H Random Glucose Estimat Average Glucose Hemoglobin A1c % Osmolality Lactic Acid Calcium Magnesium Iron TIBC % Saturation Unsat Iron Binding Total Bilirubin AST ALT Alkaline Phosphatase Total Protein Albumin Triglycerides Cholesterol LDL Cholesterol, Calc HDL Cholesterol Lipase TSH Free T4 Urine Color Urine Appearance Urine pH Ur Specific [place] Urine Protein Urine Glucose (UA) Urine Ketones Urine Blood Urine Nitrite Ur Leukocyte Esterase Urine RBC Urine WBC Ur Squamous Epith Cells Urine Bacteria Hyaline Casts Urine Osmolality Ur Random Sodium Urine Opiates Screen Ur Buprenorphine Scrn Ur Oxycodone Screen Urine Methadone Screen Urine Fentanyl Screen Ur Barbiturates Screen Carbamazepine Ur Phencyclidine Scrn Ur Amphetamines Screen U Benzodiazepines Scrn Urine Cocaine Screen U Marijuana (THC) Screen COVID-19 (TRESA) COVID-19 Clin Com Influenza Type A (AMANDA) Influenza Type B (AMANDA) Influenza A & B Note TB Test (T-Spot) Com TB Test Nil Control TB Test Panel A TB Test Panel B TB Test Positive [facility] 11/29/24 11/30/24 12/01/24 06:16 06:16 06:37 WBC RBC Hgb Hct MCV MCH MCHC RDW Plt Count MPV Immature Gran % (Auto) Neut % (Auto) Lymph % (Auto) [place] % (Auto) Eos % (Auto) Baso % (Auto) Lymph # (Auto) [place] # (Auto) Eos # (Auto) Baso # (Auto) Abs Immat Gran (auto) Absolute Neuts (auto) Absolute Nucleated RBC Nucleated RBC % (auto) Smear Tech's Comments Hold Purple Top VBG pH VBG pCO2 VBG pO2 VBG HCO3 VBG O2 Saturation VBG Base Excess Sodium Potassium Chloride Carbon Dioxide Anion Gap BUN Creatinine Estim Creat Clear Calc Estimated GFR POC Glucose 156 H 136 H 129 H Random Glucose Estimat Average Glucose Hemoglobin A1c % Osmolality Lactic Acid Calcium Magnesium Iron TIBC % Saturation Unsat Iron Binding Total Bilirubin AST ALT Alkaline Phosphatase Total Protein Albumin Triglycerides Cholesterol LDL Cholesterol, Calc HDL Cholesterol Lipase TSH Free T4 Urine Color Urine Appearance Urine pH Ur Specific [place] Urine Protein Urine Glucose (UA) Urine Ketones Urine Blood Urine Nitrite Ur Leukocyte Esterase Urine RBC Urine WBC Ur Squamous Epith Cells Urine Bacteria Hyaline Casts Urine Osmolality Ur Random Sodium Urine Opiates Screen Ur Buprenorphine Scrn Ur Oxycodone Screen Urine Methadone Screen Urine Fentanyl Screen Ur Barbiturates Screen Carbamazepine Ur Phencyclidine Scrn Ur Amphetamines Screen U Benzodiazepines Scrn Urine Cocaine Screen U Marijuana (THC) Screen COVID-19 (TRESA) COVID-19 Clin Com Influenza Type A (AMANDA) Influenza Type B (AMANDA) Influenza A & B Note TB Test (T-Spot) Com TB Test Nil Control TB Test Panel A TB Test Panel B TB Test Positive Cntrl 12/02/24 12/03/24 12/03/24 06:24 06:17 16:25 WBC RBC Hgb Hct MCV MCH MCHC RDW Plt Count MPV Immature Gran % (Auto) Neut % (Auto) Lymph % (Auto) [place] % (Auto) Eos % (Auto) Baso % (Auto) Lymph # (Auto) [place] # (Auto) Eos # (Auto) Baso # (Auto) Abs Immat Gran (auto) Absolute Neuts (auto) Absolute Nucleated RBC Nucleated RBC % (auto) Smear Tech's Comments Hold Purple Top VBG pH VBG pCO2 VBG pO2 VBG HCO3 VBG O2 Saturation VBG Base Excess Sodium Potassium Chloride Carbon Dioxide Anion Gap BUN Creatinine Estim Creat Clear Calc Estimated GFR POC Glucose 163 H 182 H 120 H Random Glucose Estimat Average Glucose Hemoglobin A1c % Osmolality Lactic Acid Calcium Magnesium Iron TIBC % Saturation Unsat Iron Binding Total Bilirubin AST ALT Alkaline Phosphatase Total Protein Albumin Triglycerides Cholesterol LDL Cholesterol, Calc HDL Cholesterol Lipase TSH Free T4 Urine Color Urine Appearance Urine pH Ur Specific [place] Urine Protein Urine Glucose (UA) Urine Ketones Urine Blood Urine Nitrite Ur Leukocyte Esterase Urine RBC Urine WBC Ur Squamous Epith Cells Urine Bacteria Hyaline Casts Urine Osmolality Ur Random Sodium Urine Opiates Screen Ur Buprenorphine Scrn Ur Oxycodone Screen Urine Methadone Screen Urine Fentanyl Screen Ur Barbiturates Screen Carbamazepine Ur Phencyclidine Scrn Ur Amphetamines Screen U Benzodiazepines Scrn Urine Cocaine Screen U Marijuana (THC) Screen COVID-19 (TRESA) COVID-19 Clin Com Influenza Type A (AMANDA) Influenza Type B (AMANDA) Influenza A & B Note TB Test (T-Spot) Com TB Test Nil Control TB Test Panel A TB Test Panel B TB Test Positive Cntrl 12/04/24 12/05/24 12/06/24 05:52 06:00 05:54 WBC RBC Hgb Hct MCV MCH MCHC RDW Plt Count MPV Immature Gran % (Auto) Neut % (Auto) Lymph % (Auto) [place] % (Auto) Eos % (Auto) Baso % (Auto) Lymph # (Auto) [place] # (Auto) Eos # (Auto) Baso # (Auto) Abs Immat Gran (auto) Absolute Neuts (auto) Absolute Nucleated RBC Nucleated RBC % (auto) Smear Tech's Comments Hold Purple Top VBG pH VBG pCO2 VBG pO2 VBG HCO3 VBG O2 Saturation VBG Base Excess Sodium Potassium Chloride Carbon Dioxide Anion Gap BUN Creatinine Estim Creat Clear Calc Estimated GFR POC Glucose 161 H 185 H 206 H Random Glucose Estimat Average Glucose Hemoglobin A1c % Osmolality Lactic Acid Calcium Magnesium Iron TIBC % Saturation Unsat Iron Binding Total Bilirubin AST ALT Alkaline Phosphatase Total Protein Albumin Triglycerides Cholesterol LDL Cholesterol, Calc HDL Cholesterol Lipase TSH Free T4 Urine Color Urine Appearance Urine pH Ur Specific [place] Urine Protein Urine Glucose (UA) Urine Ketones Urine Blood Urine Nitrite Ur Leukocyte Esterase Urine RBC Urine WBC Ur Squamous Epith Cells Urine Bacteria Hyaline Casts Urine Osmolality Ur Random Sodium Urine Opiates Screen Ur Buprenorphine Scrn Ur Oxycodone Screen Urine Methadone Screen Urine Fentanyl Screen Ur Barbiturates Screen Carbamazepine Ur Phencyclidine Scrn Ur Amphetamines Screen U Benzodiazepines Scrn Urine Cocaine Screen U Marijuana (THC) Screen COVID-19 (TRESA) COVID-19 Clin Com Influenza Type A (AMANDA) Influenza Type B (AMANDA) Influenza A & B Note TB Test (T-Spot) Com TB Test Nil Control TB Test Panel A TB Test Panel B TB Test Positive Cntr 12/07/24 12/08/24 12/09/24 06:19 06:31 06:26 WBC RBC Hgb Hct MCV MCH MCHC RDW Plt Count MPV Immature Gran % (Auto) Neut % (Auto) Lymph % (Auto) [place] % (Auto) Eos % (Auto) Baso % (Auto) Lymph # (Auto) [place] # (Auto) Eos # (Auto) Baso # (Auto) Abs Immat Gran (auto) Absolute Neuts (auto) Absolute Nucleated RBC Nucleated RBC % (auto) Smear Tech's Comments Hold Purple Top VBG pH VBG pCO2 VBG pO2 VBG HCO3 VBG O2 Saturation VBG Base Excess Sodium Potassium Chloride Carbon Dioxide Anion Gap BUN Creatinine Estim Creat Clear Calc Estimated GFR POC Glucose 194 H 163 H 165 H Random Glucose Estimat Average Glucose Hemoglobin A1c % Osmolality Lactic Acid Calcium Magnesium Iron TIBC % Saturation Unsat Iron Binding Total Bilirubin AST ALT Alkaline Phosphatase Total Protein Albumin Triglycerides Cholesterol LDL Cholesterol, Calc HDL Cholesterol Lipase TSH Free T4 Urine Color Urine Appearance Urine pH Ur Specific [place] Urine Protein Urine Glucose (UA) Urine Ketones Urine Blood Urine Nitrite Ur Leukocyte Esterase Urine RBC Urine WBC Ur Squamous Epith Cells Urine Bacteria Hyaline Casts Urine Osmolality Ur Random Sodium Urine Opiates Screen Ur Buprenorphine Scrn Ur Oxycodone Screen Urine Methadone Screen Urine Fentanyl Screen Ur Barbiturates Screen Carbamazepine Ur Phencyclidine Scrn Ur Amphetamines Screen U Benzodiazepines Scrn Urine Cocaine Screen U Marijuana (THC) Screen COVID-19 (TRESA) COVID-19 Clin Com Influenza Type A (AMANDA) Influenza Type B (AMANDA) Influenza A & B Note TB Test (T-Spot) Com TB Test Nil Control TB Test Panel A TB Test Panel B TB Test Positive Cntrl 12/09/24 12/10/24 12/11/24 12:31 06:09 06:15 WBC RBC Hgb Hct MCV MCH MCHC RDW Plt Count MPV Immature Gran % (Auto) Neut % (Auto) Lymph % (Auto) [place] % (Auto) Eos % (Auto) Baso % (Auto) Lymph # (Auto) [place] # (Auto) Eos # (Auto) Baso # (Auto) Abs Immat Gran (auto) Absolute Neuts (auto) Absolute Nucleated RBC Nucleated RBC % (auto) Smear Tech's Comments Hold Purple Top VBG pH VBG pCO2 VBG pO2 VBG HCO3 VBG O2 Saturation VBG Base Excess Sodium Potassium Chloride Carbon Dioxide Anion Gap BUN Creatinine Estim Creat Clear Calc Estimated GFR POC Glucose 167 H 159 H Random Glucose Estimat Average Glucose Hemoglobin A1c % Osmolality Lactic Acid Calcium Magnesium Iron TIBC % Saturation Unsat Iron Binding Total Bilirubin AST ALT Alkaline Phosphatase Total Protein Albumin Triglycerides Cholesterol LDL Cholesterol, Calc HDL Cholesterol Lipase TSH Free T4 Urine Color Urine Appearance Urine pH Ur Specific [place] Urine Protein Urine Glucose (UA) Urine Ketones Urine Blood Urine Nitrite Ur Leukocyte Esterase Urine RBC Urine WBC Ur Squamous Epith Cells Urine Bacteria Hyaline Casts Urine Osmolality Ur Random Sodium Urine Opiates Screen Ur Buprenorphine Scrn Ur Oxycodone Screen Urine Methadone Screen Urine Fentanyl Screen Ur Barbiturates Screen Carbamazepine Ur Phencyclidine Scrn Ur Amphetamines Screen U Benzodiazepines Scrn Urine Cocaine Screen U Marijuana (THC) Screen COVID-19 ([facility]ESA) COVID-19 Clin Com Influenza Type A (AMANDA) Influenza Type B (AMANDA) Influenza A & B Note TB Test (T-Spot) Com Negative TB Test Nil Control Passed TB Test Panel A 1 TB Test Panel B 0 TB Test Positive Cntrl Passed 12/12/24 12/13/24 12/13/24 06:24 06:14 12:13 WBC RBC Hgb Hct MCV MCH MCHC RDW Plt Count MPV Immature Gran % (Auto) Neut % (Auto) Lymph % (Auto) [place] % (Auto) Eos % (Auto) Baso % (Auto) Lymph # (Auto) [place] # (Auto) Eos # (Auto) Baso # (Auto) Abs Immat Gran (auto) Absolute Neuts (auto) Absolute Nucleated RBC Nucleated RBC % (auto) Smear Tech's Comments Hold Purple Top VBG pH VBG pCO2 VBG pO2 VBG HCO3 VBG O2 Saturation VBG Base Excess Sodium 135 Potassium 4.4 Chloride 103 Carbon Dioxide 20 L Anion Gap 16 BUN 32 H Creatinine 1.39 Estim Creat Clear Calc 24.1 Estimated GFR 37 POC Glucose 148 H 151 H Random Glucose 351 H* Estimat Average Glucose Hemoglobin A1c % Osmolality Lactic Acid Calcium 9.3 Magnesium Iron TIBC % Saturation Unsat Iron Binding Total Bilirubin AST ALT Alkaline Phosphatase Total Protein Albumin Triglycerides Cholesterol LDL Cholesterol, Calc HDL Cholesterol Lipase TSH Free T4 Urine Color Urine Appearance Urine pH Ur Specific [place] Urine Protein Urine Glucose (UA) Urine Ketones Urine Blood Urine Nitrite Ur Leukocyte Esterase Urine RBC Urine WBC Ur Squamous Epith Cells Urine Bacteria Hyaline Casts Urine Osmolality Ur Random Sodium Urine Opiates Screen Ur Buprenorphine Scrn Ur Oxycodone Screen Urine Methadone Screen Urine Fentanyl Screen Ur Barbiturates Screen Carbamazepine Ur Phencyclidine Scrn Ur Amphetamines Screen U Benzodiazepines Scrn Urine Cocaine Screen U Marijuana (THC) Screen COVID-19 ([facility]ESA) COVID-19 Clin Com Influenza Type A (AMANDA) Influenza Type B (AMANDA) Influenza A & B Note TB Test (T-Spot) Com TB Test Nil Control TB Test Panel A TB Test Panel B TB Test Positive [facility] 12/14/24 12/15/24 12/15/24 06:21 06:11 21:16 WBC RBC Hgb Hct MCV MCH MCHC RDW Plt Count MPV Immature Gran % (Auto) Neut % (Auto) Lymph % (Auto) [place] % (Auto) Eos % (Auto) Baso % (Auto) Lymph # (Auto) [place] # (Auto) Eos # (Auto) Baso # (Auto) Abs Immat Gran (auto) Absolute Neuts (auto) Absolute Nucleated RBC Nucleated RBC % (auto) Smear Tech's Comments Hold Purple Top VBG pH VBG pCO2 VBG pO2 VBG HCO3 VBG O2 Saturation VBG Base Excess Sodium Potassium Chloride Carbon Dioxide Anion Gap BUN Creatinine Estim Creat Clear Calc Estimated GFR POC Glucose 150 H 158 H 106 Random Glucose Estimat Average Glucose Hemoglobin A1c % Osmolality Lactic Acid Calcium Magnesium Iron TIBC % Saturation Unsat Iron Binding Total Bilirubin AST ALT Alkaline Phosphatase Total Protein Albumin Triglycerides Cholesterol LDL Cholesterol, Calc HDL Cholesterol Lipase TSH Free T4 Urine Color Urine Appearance Urine pH Ur Specific [place] Urine Protein Urine Glucose (UA) Urine Ketones Urine Blood Urine Nitrite Ur Leukocyte Esterase Urine RBC Urine WBC Ur Squamous Epith Cells Urine Bacteria Hyaline Casts Urine Osmolality Ur Random Sodium Urine Opiates Screen Ur Buprenorphine Scrn Ur Oxycodone Screen Urine Methadone Screen Urine Fentanyl Screen Ur Barbiturates Screen Carbamazepine Ur Phencyclidine Scrn Ur Amphetamines Screen U Benzodiazepines Scrn Urine Cocaine Screen U Marijuana (THC) Screen COVID-19 ([facility]A) COVID-19 Clin Com Influenza Type A (AMANDA) Influenza Type B (AMANDA) Influenza A & B Note TB Test (T-Spot) Com TB Test Nil Control TB Test Panel A TB Test Panel B TB Test Positive [facility] 12/16/24 12/16/24 12/16/24 06:45 12:26 15:35 WBC RBC Hgb Hct MCV MCH MCHC RDW Plt Count MPV Immature Gran % (Auto) Neut % (Auto) Lymph % (Auto) [place] % (Auto) Eos % (Auto) Baso % (Auto) Lymph # (Auto) [place] # (Auto) Eos # (Auto) Baso # (Auto) Abs Immat Gran (auto) Absolute Neuts (auto) Absolute Nucleated RBC Nucleated RBC % (auto) Smear Tech's Comments Hold Purple Top VBG pH VBG pCO2 VBG pO2 VBG HCO3 VBG O2 Saturation VBG Base Excess Sodium Potassium Chloride Carbon Dioxide Anion Gap BUN Creatinine Estim Creat Clear Calc Estimated GFR POC Glucose 194 H Random Glucose Estimat Average Glucose Hemoglobin A1c % Osmolality Lactic Acid Calcium Magnesium Iron TIBC % Saturation Unsat Iron Binding Total Bilirubin AST ALT Alkaline Phosphatase Total Protein Albumin Triglycerides Cholesterol LDL Cholesterol, Calc HDL Cholesterol Lipase TSH Free T4 Urine Color Urine Appearance Urine pH Ur Specific [place] Urine Protein Urine Glucose (UA) Urine Ketones Urine Blood Urine Nitrite Ur Leukocyte Esterase Urine RBC Urine WBC Ur Squamous Epith Cells Urine Bacteria Hyaline Casts Urine Osmolality Ur Random Sodium Urine Opiates Screen Ur Buprenorphine Scrn Ur Oxycodone Screen Urine Methadone Screen Urine Fentanyl Screen Ur Barbiturates Screen Carbamazepine Ur Phencyclidine Scrn Ur Amphetamines Screen U Benzodiazepines Scrn Urine Cocaine Screen U Marijuana (THC) Screen COVID-19 ([facility]ESA) Negative COVID-19 Clin Com See Note Influenza Type A (AMANDA) Negative Influenza Type B (AMANDA) Negative Influenza A & B Note See Note TB Test (T-Spot) Com TB Test Nil Control TB Test Panel A TB Test Panel B TB Test Positive Cntrl 12/16/24 12/17/24 12/19/24 20:01 19:13 10:21 WBC RBC Hgb Hct MCV MCH MCHC RDW Plt Count MPV Immature Gran % (Auto) Neut % (Auto) Lymph % (Auto) [place] % (Auto) Eos % (Auto) Baso % (Auto) Lymph # (Auto) [place] # (Auto) Eos # (Auto) Baso # (Auto) Abs Immat Gran (auto) Absolute Neuts (auto) Absolute Nucleated RBC Nucleated RBC % (auto) Smear Tech's Comments Hold Purple Top VBG pH VBG pCO2 VBG pO2 VBG HCO3 VBG O2 Saturation VBG Base Excess Sodium Potassium Chloride Carbon Dioxide Anion Gap BUN Creatinine Estim Creat Clear Calc Estimated GFR POC Glucose 213 H 265 H 408 H* Random Glucose Estimat Average Glucose Hemoglobin A1c % Osmolality Lactic Acid Calcium Magnesium Iron TIBC % Saturation Unsat Iron Binding Total Bilirubin AST ALT Alkaline Phosphatase Total Protein Albumin Triglycerides Cholesterol LDL Cholesterol, Calc HDL Cholesterol Lipase TSH Free T4 Urine Color Urine Appearance Urine pH Ur Specific [place] Urine Protein Urine Glucose (UA) Urine Ketones Urine Blood Urine Nitrite Ur Leukocyte Esterase Urine RBC Urine WBC Ur Squamous Epith Cells Urine Bacteria Hyaline Casts Urine Osmolality Ur Random Sodium Urine Opiates Screen Ur Buprenorphine Scrn Ur Oxycodone Screen Urine Methadone Screen Urine Fentanyl Screen Ur Barbiturates Screen Carbamazepine Ur Phencyclidine Scrn Ur Amphetamines Screen U Benzodiazepines Scrn Urine Cocaine Screen U Marijuana (THC) Screen COVID-19 ([facility]ESA) COVID-19 Clin Com Influenza Type A (AMANDA) Influenza Type B (AMANDA) Influenza A & B Note TB Test (T-Spot) Com TB Test Nil Control TB Test Panel A TB Test Panel B TB Test Positive Cntrl 12/19/24 12/19/24 12/20/24 16:02 20:57 06:20 WBC RBC Hgb Hct MCV MCH MCHC RDW Plt Count MPV Immature Gran % (Auto) Neut % (Auto) Lymph % (Auto) [place] % (Auto) Eos % (Auto) Baso % (Auto) Lymph # (Auto) [place] # (Auto) Eos # (Auto) Baso # (Auto) Abs Immat Gran (auto) Absolute Neuts (auto) Absolute Nucleated RBC Nucleated RBC % (auto) Smear Tech's Comments Hold Purple Top VBG pH VBG pCO2 VBG pO2 VBG HCO3 VBG O2 Saturation VBG Base Excess Sodium Potassium Chloride Carbon Dioxide Anion Gap BUN Creatinine Estim Creat Clear Calc Estimated GFR POC Glucose 115 101 181 H Random Glucose Estimat Average Glucose Hemoglobin A1c % Osmolality Lactic Acid Calcium Magnesium Iron TIBC % Saturation Unsat Iron Binding Total Bilirubin AST ALT Alkaline Phosphatase Total Protein Albumin Triglycerides Cholesterol LDL Cholesterol, Calc HDL Cholesterol Lipase TSH Free T4 Urine Color Urine Appearance Urine pH Ur Specific [place] Urine Protein Urine Glucose (UA) Urine Ketones Urine Blood Urine Nitrite Ur Leukocyte Esterase Urine RBC Urine WBC Ur Squamous Epith Cells Urine Bacteria Hyaline Casts Urine Osmolality Ur Random Sodium Urine Opiates Screen Ur Buprenorphine Scrn Ur Oxycodone Screen Urine Methadone Screen Urine Fentanyl Screen Ur Barbiturates Screen Carbamazepine Ur Phencyclidine Scrn Ur Amphetamines Screen U Benzodiazepines Scrn Urine Cocaine Screen U Marijuana (THC) Screen COVID-19 ([facility]ESA) COVID-19 Clin Com Influenza Type A (AMANDA) Influenza Type B (AMANDA) Influenza A & B Note TB Test (T-Spot) Com TB Test Nil Control TB Test Panel A TB Test Panel B TB Test Positive Cntr 12/20/24 12/20/24 12/20/24 08:43 10:41 15:49 WBC RBC Hgb Hct MCV MCH MCHC RDW Plt Count MPV Immature Gran % (Auto) Neut % (Auto) Lymph % (Auto) [place] % (Auto) Eos % (Auto) Baso % (Auto) Lymph # (Auto) [place] # (Auto) Eos # (Auto) Baso # (Auto) Abs Immat Gran (auto) Absolute Neuts (auto) Absolute Nucleated RBC Nucleated RBC % (auto) Smear Tech's Comments Hold Purple Top VBG pH VBG pCO2 VBG pO2 VBG HCO3 VBG O2 Saturation VBG Base Excess Sodium 140 Potassium 5.2 H Chloride 107 Carbon Dioxide 25 Anion Gap 13 BUN 27 H Creatinine 1.08 Estim Creat Clear Calc 28.6 Estimated GFR 49 POC Glucose 223 H 177 H Random Glucose 266 H Estimat Average Glucose Hemoglobin A1c % Osmolality Lactic Acid Calcium 9.0 Magnesium Iron TIBC % Saturation Unsat Iron Binding Total Bilirubin 0.3 AST 66 H ALT 70 H Alkaline Phosphatase 60 Total Protein 6.6 Albumin 3.6 Triglycerides Cholesterol LDL Cholesterol, Calc HDL Cholesterol Lipase TSH Free T4 Urine Color Urine Appearance Urine pH Ur Specific [place] Urine Protein Urine Glucose (UA) Urine Ketones Urine Blood Urine Nitrite Ur Leukocyte Esterase Urine RBC Urine WBC Ur Squamous Epith Cells Urine Bacteria Hyaline Casts Urine Osmolality Ur Random Sodium Urine Opiates Screen Ur Buprenorphine Scrn Ur Oxycodone Screen Urine Methadone Screen Urine Fentanyl Screen Ur Barbiturates Screen Carbamazepine Ur Phencyclidine Scrn Ur Amphetamines Screen U Benzodiazepines Scrn Urine Cocaine Screen U Marijuana (THC) Screen COVID-19 ([facility]ESA) COVID-19 Clin Com Influenza Type A (AMANDA) Influenza Type B (AMANDA) Influenza A & B Note TB Test (T-Spot) Com TB Test Nil Control TB Test Panel A TB Test Panel B TB Test Positive Cntrl 12/21/24 12/21/24 12/21/24 06:20 11:49 16:10 WBC RBC Hgb Hct MCV MCH MCHC RDW Plt Count MPV Immature Gran % (Auto) Neut % (Auto) Lymph % (Auto) [place] % (Auto) Eos % (Auto) Baso % (Auto) Lymph # (Auto) [place] # (Auto) Eos # (Auto) Baso # (Auto) Abs Immat Gran (auto) Absolute Neuts (auto) Absolute Nucleated RBC Nucleated RBC % (auto) Smear Tech's Comments Hold Purple Top VBG pH VBG pCO2 VBG pO2 VBG HCO3 VBG O2 Saturation VBG Base Excess Sodium Potassium Chloride Carbon Dioxide Anion Gap BUN Creatinine Estim Creat Clear Calc Estimated GFR POC Glucose 170 H 201 H 141 H Random Glucose Estimat Average Glucose Hemoglobin A1c % Osmolality Lactic Acid Calcium Magnesium Iron TIBC % Saturation Unsat Iron Binding Total Bilirubin AST ALT Alkaline Phosphatase Total Protein Albumin Triglycerides Cholesterol LDL Cholesterol, Calc HDL Cholesterol Lipase TSH Free T4 Urine Color Urine Appearance Urine pH Ur Specific [place] Urine Protein Urine Glucose (UA) Urine Ketones Urine Blood Urine Nitrite Ur Leukocyte Esterase Urine RBC Urine WBC Ur Squamous Epith Cells Urine Bacteria Hyaline Casts Urine Osmolality Ur Random Sodium Urine Opiates Screen Ur Buprenorphine Scrn Ur Oxycodone Screen Urine Methadone Screen Urine Fentanyl Screen Ur Barbiturates Screen Carbamazepine Ur Phencyclidine Scrn Ur Amphetamines Screen U Benzodiazepines Scrn Urine Cocaine Screen U Marijuana (THC) Screen COVID-19 (TRESA) COVID-19 Clin Com Influenza Type A (AMANDA) Influenza Type B (AMANDA) Influenza A & B Note TB Test (T-Spot) Com TB Test Nil Control TB Test Panel A TB Test Panel B TB Test Positive [facility] 12/21/24 12/22/24 12/22/24 20:59 06:39 11:34 WBC RBC Hgb Hct MCV MCH MCHC RDW Plt Count MPV Immature Gran % (Auto) Neut % (Auto) Lymph % (Auto) [place] % (Auto) Eos % (Auto) Baso % (Auto) Lymph # (Auto) [place] # (Auto) Eos # (Auto) Baso # (Auto) Abs Immat Gran (auto) Absolute Neuts (auto) Absolute Nucleated RBC Nucleated RBC % (auto) Smear Tech's Comments Hold Purple Top VBG pH VBG pCO2 VBG pO2 VBG HCO3 VBG O2 Saturation VBG Base Excess Sodium Potassium Chloride Carbon Dioxide Anion Gap BUN Creatinine Estim Creat Clear Calc Estimated GFR POC Glucose 270 H 217 H 134 H Random Glucose Estimat Average Glucose Hemoglobin A1c % Osmolality Lactic Acid Calcium Magnesium Iron TIBC % Saturation Unsat Iron Binding Total Bilirubin AST ALT Alkaline Phosphatase Total Protein Albumin Triglycerides Cholesterol LDL Cholesterol, Calc HDL Cholesterol Lipase TSH Free T4 Urine Color Urine Appearance Urine pH Ur Specific [place] Urine Protein Urine Glucose (UA) Urine Ketones Urine Blood Urine Nitrite Ur Leukocyte Esterase Urine RBC Urine WBC Ur Squamous Epith Cells Urine Bacteria Hyaline Casts Urine Osmolality Ur Random Sodium Urine Opiates Screen Ur Buprenorphine Scrn Ur Oxycodone Screen Urine Methadone Screen Urine Fentanyl Screen Ur Barbiturates Screen Carbamazepine Ur Phencyclidine Scrn Ur Amphetamines Screen U Benzodiazepines Scrn Urine Cocaine Screen U Marijuana (THC) Screen COVID-19 ([facility]ESA) COVID-19 Clin Com Influenza Type A (AMANDA) Influenza Type B (AMANDA) Influenza A & B Note TB Test (T-Spot) Com TB Test Nil Control TB Test Panel A TB Test Panel B TB Test Positive Cntrl 12/22/24 12/22/24 12/23/24 16:32 20:04 06:23 WBC RBC Hgb Hct MCV MCH MCHC RDW Plt Count MPV Immature Gran % (Auto) Neut % (Auto) Lymph % (Auto) [place] % (Auto) Eos % (Auto) Baso % (Auto) Lymph # (Auto) [place] # (Auto) Eos # (Auto) Baso # (Auto) Abs Immat Gran (auto) Absolute Neuts (auto) Absolute Nucleated RBC Nucleated RBC % (auto) Smear Tech's Comments Hold Purple Top VBG pH VBG pCO2 VBG pO2 VBG HCO3 VBG O2 Saturation VBG Base Excess Sodium Potassium Chloride Carbon Dioxide Anion Gap BUN Creatinine Estim Creat Clear Calc Estimated GFR POC Glucose 200 H 76 237 H Random Glucose Estimat Average Glucose Hemoglobin A1c % Osmolality Lactic Acid Calcium Magnesium Iron TIBC % Saturation Unsat Iron Binding Total Bilirubin AST ALT Alkaline Phosphatase Total Protein Albumin Triglycerides Cholesterol LDL Cholesterol, Calc HDL Cholesterol Lipase TSH Free T4 Urine Color Urine Appearance Urine pH Ur Specific [place] Urine Protein Urine Glucose (UA) Urine Ketones Urine Blood Urine Nitrite Ur Leukocyte Esterase Urine RBC Urine WBC Ur Squamous Epith Cells Urine Bacteria Hyaline Casts Urine Osmolality Ur Random Sodium Urine Opiates Screen Ur Buprenorphine Scrn Ur Oxycodone Screen Urine Methadone Screen Urine Fentanyl Screen Ur Barbiturates Screen Carbamazepine Ur Phencyclidine Scrn Ur Amphetamines Screen U Benzodiazepines Scrn Urine Cocaine Screen U Marijuana (THC) Screen COVID-19 (TRESA) COVID-19 Clin Com Influenza Type A (AMANDA) Influenza Type B (AMANDA) Influenza A & B Note TB Test (T-Spot) Com TB Test Nil Control TB Test Panel A TB Test Panel B TB Test Positive Cntr 12/23/24 12/23/24 12/23/24 11:32 16:20 19:35 WBC RBC Hgb Hct MCV MCH MCHC RDW Plt Count MPV Immature Gran % (Auto) Neut % (Auto) Lymph % (Auto) [place] % (Auto) Eos % (Auto) Baso % (Auto) Lymph # (Auto) [place] # (Auto) Eos # (Auto) Baso # (Auto) Abs Immat Gran (auto) Absolute Neuts (auto) Absolute Nucleated RBC Nucleated RBC % (auto) Smear Tech's Comments Hold Purple Top VBG pH VBG pCO2 VBG pO2 VBG HCO3 VBG O2 Saturation VBG Base Excess Sodium Potassium Chloride Carbon Dioxide Anion Gap BUN Creatinine Estim Creat Clear Calc Estimated GFR POC Glucose 114 125 H 134 H Random Glucose Estimat Average Glucose Hemoglobin A1c % Osmolality Lactic Acid Calcium Magnesium Iron TIBC % Saturation Unsat Iron Binding Total Bilirubin AST ALT Alkaline Phosphatase Total Protein Albumin Triglycerides Cholesterol LDL Cholesterol, Calc HDL Cholesterol Lipase TSH Free T4 Urine Color Urine Appearance Urine pH Ur Specific [place] Urine Protein Urine Glucose (UA) Urine Ketones Urine Blood Urine Nitrite Ur Leukocyte Esterase Urine RBC Urine WBC Ur Squamous Epith Cells Urine Bacteria Hyaline Casts Urine Osmolality Ur Random Sodium Urine Opiates Screen Ur Buprenorphine Scrn Ur Oxycodone Screen Urine Methadone Screen Urine Fentanyl Screen Ur Barbiturates Screen Carbamazepine Ur Phencyclidine Scrn Ur Amphetamines Screen U Benzodiazepines Scrn Urine Cocaine Screen U Marijuana (THC) Screen COVID-19 ([facility]ESA) COVID-19 Clin Com Influenza Type A (AMANDA) Influenza Type B (AMANDA) Influenza A & B Note TB Test (T-Spot) Com TB Test Nil Control TB Test Panel A TB Test Panel B TB Test Positive Cntrl 12/24/24 12/24/24 12/24/24 06:14 11:21 16:11 WBC RBC Hgb Hct MCV MCH MCHC RDW Plt Count MPV Immature Gran % (Auto) Neut % (Auto) Lymph % (Auto) [place] % (Auto) Eos % (Auto) Baso % (Auto) Lymph # (Auto) [place] # (Auto) Eos # (Auto) Baso # (Auto) Abs Immat Gran (auto) Absolute Neuts (auto) Absolute Nucleated RBC Nucleated RBC % (auto) Smear Tech's Comments Hold Purple Top VBG pH VBG pCO2 VBG pO2 VBG HCO3 VBG O2 Saturation VBG Base Excess Sodium Potassium Chloride Carbon Dioxide Anion Gap BUN Creatinine Estim Creat Clear Calc Estimated GFR POC Glucose 212 H 168 H 97 Random Glucose Estimat Average Glucose Hemoglobin A1c % Osmolality Lactic Acid Calcium Magnesium Iron TIBC % Saturation Unsat Iron Binding Total Bilirubin AST ALT Alkaline Phosphatase Total Protein Albumin Triglycerides Cholesterol LDL Cholesterol, Calc HDL Cholesterol Lipase TSH Free T4 Urine Color Urine Appearance Urine pH Ur Specific [place] Urine Protein Urine Glucose (UA) Urine Ketones Urine Blood Urine Nitrite Ur Leukocyte Esterase Urine RBC Urine WBC Ur Squamous Epith Cells Urine Bacteria Hyaline Casts Urine Osmolality Ur Random Sodium Urine Opiates Screen Ur Buprenorphine Scrn Ur Oxycodone Screen Urine Methadone Screen Urine Fentanyl Screen Ur Barbiturates Screen Carbamazepine Ur Phencyclidine Scrn Ur Amphetamines Screen U Benzodiazepines Scrn Urine Cocaine Screen U Marijuana (THC) Screen COVID-19 ([facility]ESA) COVID-19 Clin Com Influenza Type A (AMANDA) Influenza Type B (AMANDA) Influenza A & B Note TB Test (T-Spot) Com TB Test Nil Control TB Test Panel A TB Test Panel B TB Test Positive Cntrl 12/24/24 12/25/24 12/25/24 20:01 05:45 10:16 WBC RBC Hgb Hct MCV MCH MCHC RDW Plt Count MPV Immature Gran % (Auto) Neut % (Auto) Lymph % (Auto) [place] % (Auto) Eos % (Auto) Baso % (Auto) Lymph # (Auto) [place] # (Auto) Eos # (Auto) Baso # (Auto) Abs Immat Gran (auto) Absolute Neuts (auto) Absolute Nucleated RBC Nucleated RBC % (auto) Smear Tech's Comments Hold Purple Top VBG pH VBG pCO2 VBG pO2 VBG HCO3 VBG O2 Saturation VBG Base Excess Sodium Potassium Chloride Carbon Dioxide Anion Gap BUN Creatinine Estim Creat Clear Calc Estimated GFR POC Glucose 208 H 220 H 224 H Random Glucose Estimat Average Glucose Hemoglobin A1c % Osmolality Lactic Acid Calcium Magnesium Iron TIBC % Saturation Unsat Iron Binding Total Bilirubin AST ALT Alkaline Phosphatase Total Protein Albumin Triglycerides Cholesterol LDL Cholesterol, Calc HDL Cholesterol Lipase TSH Free T4 Urine Color Urine Appearance Urine pH Ur Specific [place] Urine Protein Urine Glucose (UA) Urine Ketones Urine Blood Urine Nitrite Ur Leukocyte Esterase Urine RBC Urine WBC Ur Squamous Epith Cells Urine Bacteria Hyaline Casts Urine Osmolality Ur Random Sodium Urine Opiates Screen Ur Buprenorphine Scrn Ur Oxycodone Screen Urine Methadone Screen Urine Fentanyl Screen Ur Barbiturates Screen Carbamazepine Ur Phencyclidine Scrn Ur Amphetamines Screen U Benzodiazepines Scrn Urine Cocaine Screen U Marijuana (THC) Screen COVID-19 (TRESA) COVID-19 Clin Com Influenza Type A (AMANDA) Influenza Type B (AMANDA) Influenza A & B Note TB Test (T-Spot) Com TB Test Nil Control TB Test Panel A TB Test Panel B TB Test Positive [facility] 12/25/24 12/25/24 12/26/24 16:09 20:08 06:42 WBC RBC Hgb Hct MCV MCH MCHC RDW Plt Count MPV Immature Gran % (Auto) Neut % (Auto) Lymph % (Auto) [place] % (Auto) Eos % (Auto) Baso % (Auto) Lymph # (Auto) [place] # (Auto) Eos # (Auto) Baso # (Auto) Abs Immat Gran (auto) Absolute Neuts (auto) Absolute Nucleated RBC Nucleated RBC % (auto) Smear Tech's Comments Hold Purple Top VBG pH VBG pCO2 VBG pO2 VBG HCO3 VBG O2 Saturation VBG Base Excess Sodium Potassium Chloride Carbon Dioxide Anion Gap BUN Creatinine Estim Creat Clear Calc Estimated GFR POC Glucose 86 281 H 210 H Random Glucose Estimat Average Glucose Hemoglobin A1c % Osmolality Lactic Acid Calcium Magnesium Iron TIBC % Saturation Unsat Iron Binding Total Bilirubin AST ALT Alkaline Phosphatase Total Protein Albumin Triglycerides Cholesterol LDL Cholesterol, Calc HDL Cholesterol Lipase TSH Free T4 Urine Color Urine Appearance Urine pH Ur Specific [place] Urine Protein Urine Glucose (UA) Urine Ketones Urine Blood Urine Nitrite Ur Leukocyte Esterase Urine RBC Urine WBC Ur Squamous Epith Cells Urine Bacteria Hyaline Casts Urine Osmolality Ur Random Sodium Urine Opiates Screen Ur Buprenorphine Scrn Ur Oxycodone Screen Urine Methadone Screen Urine Fentanyl Screen Ur Barbiturates Screen Carbamazepine Ur Phencyclidine Scrn Ur Amphetamines Screen U Benzodiazepines Scrn Urine Cocaine Screen U Marijuana (THC) Screen COVID-19 (TRESA) COVID-19 Clin Com Influenza Type A (AMANDA) Influenza Type B (AMANDA) Influenza A & B Note TB Test (T-Spot) Com TB Test Nil Control TB Test Panel A TB Test Panel B TB Test Positive [facility] 12/26/24 12/26/24 12/26/24 11:10 14:48 16:13 WBC RBC Hgb Hct MCV MCH MCHC RDW Plt Count MPV Immature Gran % (Auto) Neut % (Auto) Lymph % (Auto) [place] % (Auto) Eos % (Auto) Baso % (Auto) Lymph # (Auto) [place] # (Auto) Eos # (Auto) Baso # (Auto) Abs Immat Gran (auto) Absolute Neuts (auto) Absolute Nucleated RBC Nucleated RBC % (auto) Smear Tech's Comments Hold Purple Top VBG pH VBG pCO2 VBG pO2 VBG HCO3 VBG O2 Saturation VBG Base Excess Sodium Potassium Chloride Carbon Dioxide Anion Gap BUN Creatinine Estim Creat Clear Calc Estimated GFR POC Glucose 284 H 130 H 146 H Random Glucose Estimat Average Glucose Hemoglobin A1c % Osmolality Lactic Acid Calcium Magnesium Iron TIBC % Saturation Unsat Iron Binding Total Bilirubin AST ALT Alkaline Phosphatase Total Protein Albumin Triglycerides Cholesterol LDL Cholesterol, Calc HDL Cholesterol Lipase TSH Free T4 Urine Color Urine Appearance Urine pH Ur Specific [place] Urine Protein Urine Glucose (UA) Urine Ketones Urine Blood Urine Nitrite Ur Leukocyte Esterase Urine RBC Urine WBC Ur Squamous Epith Cells Urine Bacteria Hyaline Casts Urine Osmolality Ur Random Sodium Urine Opiates Screen Ur Buprenorphine Scrn Ur Oxycodone Screen Urine Methadone Screen Urine Fentanyl Screen Ur Barbiturates Screen Carbamazepine Ur Phencyclidine Scrn Ur Amphetamines Screen U Benzodiazepines Scrn Urine Cocaine Screen U Marijuana (THC) Screen COVID-19 (TRESA) COVID-19 Clin Com Influenza Type A (AMANDA) Influenza Type B (AMANDA) Influenza A & B Note TB Test (T-Spot) Com TB Test Nil Control TB Test Panel A TB Test Panel B TB Test Positive Cntr 12/26/24 12/27/24 12/27/24 20:01 06:05 11:24 WBC RBC Hgb Hct MCV MCH MCHC RDW Plt Count MPV Immature Gran % (Auto) Neut % (Auto) Lymph % (Auto) [place] % (Auto) Eos % (Auto) Baso % (Auto) Lymph # (Auto) [place] # (Auto) Eos # (Auto) Baso # (Auto) Abs Immat Gran (auto) Absolute Neuts (auto) Absolute Nucleated RBC Nucleated RBC % (auto) Smear Tech's Comments Hold Purple Top VBG pH VBG pCO2 VBG pO2 VBG HCO3 VBG O2 Saturation VBG Base Excess Sodium Potassium Chloride Carbon Dioxide Anion Gap BUN Creatinine Estim Creat Clear Calc Estimated GFR POC Glucose 200 H 229 H 393 H* Random Glucose Estimat Average Glucose Hemoglobin A1c % Osmolality Lactic Acid Calcium Magnesium Iron TIBC % Saturation Unsat Iron Binding Total Bilirubin AST ALT Alkaline Phosphatase Total Protein Albumin Triglycerides Cholesterol LDL Cholesterol, Calc HDL Cholesterol Lipase TSH Free T4 Urine Color Urine Appearance Urine pH Ur Specific [place] Urine Protein Urine Glucose (UA) Urine Ketones Urine Blood Urine Nitrite Ur Leukocyte Esterase Urine RBC Urine WBC Ur Squamous Epith Cells Urine Bacteria Hyaline Casts Urine Osmolality Ur Random Sodium Urine Opiates Screen Ur Buprenorphine Scrn Ur Oxycodone Screen Urine Methadone Screen Urine Fentanyl Screen Ur Barbiturates Screen Carbamazepine Ur Phencyclidine Scrn Ur Amphetamines Screen U Benzodiazepines Scrn Urine Cocaine Screen U Marijuana (THC) Screen COVID-19 ([facility]) COVID-19 Clin Com Influenza Type A (AMANDA) Influenza Type B (AMANDA) Influenza A & B Note TB Test (T-Spot) Com TB Test Nil Control TB Test Panel A TB Test Panel B TB Test Positive [facility] 12/27/24 12/27/24 12/27/24 15:38 15:51 16:38 WBC RBC Hgb Hct MCV MCH MCHC RDW Plt Count MPV Immature Gran % (Auto) Neut % (Auto) Lymph % (Auto) [place] % (Auto) Eos % (Auto) Baso % (Auto) Lymph # (Auto) [place] # (Auto) Eos # (Auto) Baso # (Auto) Abs Immat Gran (auto) Absolute Neuts (auto) Absolute Nucleated RBC Nucleated RBC % (auto) Smear Tech's Comments Hold Purple Top VBG pH VBG pCO2 VBG pO2 VBG HCO3 VBG O2 Saturation VBG Base Excess Sodium Potassium Chloride Carbon Dioxide Anion Gap BUN Creatinine Estim Creat Clear Calc Estimated GFR POC Glucose 54 L* 109 199 H Random Glucose Estimat Average Glucose Hemoglobin A1c % Osmolality Lactic Acid Calcium Magnesium Iron TIBC % Saturation Unsat Iron Binding Total Bilirubin AST ALT Alkaline Phosphatase Total Protein Albumin Triglycerides Cholesterol LDL Cholesterol, Calc HDL Cholesterol Lipase TSH Free T4 Urine Color Urine Appearance Urine pH Ur Specific [place] Urine Protein Urine Glucose (UA) Urine Ketones Urine Blood Urine Nitrite Ur Leukocyte Esterase Urine RBC Urine WBC Ur Squamous Epith Cells Urine Bacteria Hyaline Casts Urine Osmolality Ur Random Sodium Urine Opiates Screen Ur Buprenorphine Scrn Ur Oxycodone Screen Urine Methadone Screen Urine Fentanyl Screen Ur Barbiturates Screen Carbamazepine Ur Phencyclidine Scrn Ur Amphetamines Screen U Benzodiazepines Scrn Urine Cocaine Screen U Marijuana (THC) Screen COVID-19 ([facility]) COVID-19 Clin Com Influenza Type A (AMANDA) Influenza Type B (AMANDA) Influenza A & B Note TB Test (T-Spot) Com TB Test Nil Control TB Test Panel A TB Test Panel B TB Test Positive [facility] 12/27/24 12/28/24 12/28/24 20:04 07:13 11:00 WBC RBC Hgb Hct MCV MCH MCHC RDW Plt Count MPV Immature Gran % (Auto) Neut % (Auto) Lymph % (Auto) [place] % (Auto) Eos % (Auto) Baso % (Auto) Lymph # (Auto) [place] # (Auto) Eos # (Auto) Baso # (Auto) Abs Immat Gran (auto) Absolute Neuts (auto) Absolute Nucleated RBC Nucleated RBC % (auto) Smear Tech's Comments Hold Purple Top VBG pH VBG pCO2 VBG pO2 VBG HCO3 VBG O2 Saturation VBG Base Excess Sodium Potassium Chloride Carbon Dioxide Anion Gap BUN Creatinine Estim Creat Clear Calc Estimated GFR POC Glucose 281 H 263 H 195 H Random Glucose Estimat Average Glucose Hemoglobin A1c % Osmolality Lactic Acid Calcium Magnesium Iron TIBC % Saturation Unsat Iron Binding Total Bilirubin AST ALT Alkaline Phosphatase Total Protein Albumin Triglycerides Cholesterol LDL Cholesterol, Calc HDL Cholesterol Lipase TSH Free T4 Urine Color Urine Appearance Urine pH Ur Specific [place] Urine Protein Urine Glucose (UA) Urine Ketones Urine Blood Urine Nitrite Ur Leukocyte Esterase Urine RBC Urine WBC Ur Squamous Epith Cells Urine Bacteria Hyaline Casts Urine Osmolality Ur Random Sodium Urine Opiates Screen Ur Buprenorphine Scrn Ur Oxycodone Screen Urine Methadone Screen Urine Fentanyl Screen Ur Barbiturates Screen Carbamazepine Ur Phencyclidine Scrn Ur Amphetamines Screen U Benzodiazepines Scrn Urine Cocaine Screen U Marijuana (THC) Screen COVID-19 ([facility]) COVID-19 Clin Com Influenza Type A (AMANDA) Influenza Type B (AMANDA) Influenza A & B Note TB Test (T-Spot) Com TB Test Nil Control TB Test Panel A TB Test Panel B TB Test Positive [facility] 12/28/24 12/28/24 12/29/24 16:12 20:21 06:47 WBC RBC Hgb Hct MCV MCH MCHC RDW Plt Count MPV Immature Gran % (Auto) Neut % (Auto) Lymph % (Auto) [place] % (Auto) Eos % (Auto) Baso % (Auto) Lymph # (Auto) [place] # (Auto) Eos # (Auto) Baso # (Auto) Abs Immat Gran (auto) Absolute Neuts (auto) Absolute Nucleated RBC Nucleated RBC % (auto) Smear Tech's Comments Hold Purple Top VBG pH VBG pCO2 VBG pO2 VBG HCO3 VBG O2 Saturation VBG Base Excess Sodium Potassium Chloride Carbon Dioxide Anion Gap BUN Creatinine Estim Creat Clear Calc Estimated GFR POC Glucose 111 134 H 257 H Random Glucose Estimat Average Glucose Hemoglobin A1c % Osmolality Lactic Acid Calcium Magnesium Iron TIBC % Saturation Unsat Iron Binding Total Bilirubin AST ALT Alkaline Phosphatase Total Protein Albumin Triglycerides Cholesterol LDL Cholesterol, Calc HDL Cholesterol Lipase TSH Free T4 Urine Color Urine Appearance Urine pH Ur Specific [place] Urine Protein Urine Glucose (UA) Urine Ketones Urine Blood Urine Nitrite Ur Leukocyte Esterase Urine RBC Urine WBC Ur Squamous Epith Cells Urine Bacteria Hyaline Casts Urine Osmolality Ur Random Sodium Urine Opiates Screen Ur Buprenorphine Scrn Ur Oxycodone Screen Urine Methadone Screen Urine Fentanyl Screen Ur Barbiturates Screen Carbamazepine Ur Phencyclidine Scrn Ur Amphetamines Screen U Benzodiazepines Scrn Urine Cocaine Screen U Marijuana (THC) Screen COVID-19 ([facility]) COVID-19 Clin Com Influenza Type A (AMANDA) Influenza Type B (AMANDA) Influenza A & B Note TB Test (T-Spot) Com TB Test Nil Control TB Test Panel A TB Test Panel B TB Test Positive [facility] 12/29/24 12/29/24 12/30/24 11:20 16:23 06:14 WBC RBC Hgb Hct MCV MCH MCHC RDW Plt Count MPV Immature Gran % (Auto) Neut % (Auto) Lymph % (Auto) [place] % (Auto) Eos % (Auto) Baso % (Auto) Lymph # (Auto) [place] # (Auto) Eos # (Auto) Baso # (Auto) Abs Immat Gran (auto) Absolute Neuts (auto) Absolute Nucleated RBC Nucleated RBC % (auto) Smear Tech's Comments Hold Purple Top VBG pH VBG pCO2 VBG pO2 VBG HCO3 VBG O2 Saturation VBG Base Excess Sodium Potassium Chloride Carbon Dioxide Anion Gap BUN Creatinine Estim Creat Clear Calc Estimated GFR POC Glucose 149 H 211 H 180 H Random Glucose Estimat Average Glucose Hemoglobin A1c % Osmolality Lactic Acid Calcium Magnesium Iron TIBC % Saturation Unsat Iron Binding Total Bilirubin AST ALT Alkaline Phosphatase Total Protein Albumin Triglycerides Cholesterol LDL Cholesterol, Calc HDL Cholesterol Lipase TSH Free T4 Urine Color Urine Appearance Urine pH Ur Specific [place] Urine Protein Urine Glucose (UA) Urine Ketones Urine Blood Urine Nitrite Ur Leukocyte Esterase Urine RBC Urine WBC Ur Squamous Epith Cells Urine Bacteria Hyaline Casts Urine Osmolality Ur Random Sodium Urine Opiates Screen Ur Buprenorphine Scrn Ur Oxycodone Screen Urine Methadone Screen Urine Fentanyl Screen Ur Barbiturates Screen Carbamazepine Ur Phencyclidine Scrn Ur Amphetamines Screen U Benzodiazepines Scrn Urine Cocaine Screen U Marijuana (THC) Screen COVID-19 ([facility]) COVID-19 Clin Com Influenza Type A (AMANDA) Influenza Type B (AMANDA) Influenza A & B Note TB Test (T-Spot) Com TB Test Nil Control TB Test Panel A TB Test Panel B TB Test Positive [facility] 12/30/24 12/30/24 12/30/24 08:43 11:25 14:17 WBC RBC Hgb Hct MCV MCH MCHC RDW Plt Count MPV Immature Gran % (Auto) Neut % (Auto) Lymph % (Auto) [place] % (Auto) Eos % (Auto) Baso % (Auto) Lymph # (Auto) [place] # (Auto) Eos # (Auto) Baso # (Auto) Abs Immat Gran (auto) Absolute Neuts (auto) Absolute Nucleated RBC Nucleated RBC % (auto) Smear Tech's Comments Hold Purple Top VBG pH VBG pCO2 VBG pO2 VBG HCO3 VBG O2 Saturation VBG Base Excess Sodium Potassium Chloride Carbon Dioxide Anion Gap BUN Creatinine Estim Creat Clear Calc Estimated GFR POC Glucose 267 H 288 H 47 L* Random Glucose Estimat Average Glucose Hemoglobin A1c % Osmolality Lactic Acid Calcium Magnesium Iron TIBC % Saturation Unsat Iron Binding Total Bilirubin AST ALT Alkaline Phosphatase Total Protein Albumin Triglycerides Cholesterol LDL Cholesterol, Calc HDL Cholesterol Lipase TSH Free T4 Urine Color Urine Appearance Urine pH Ur Specific [place] Urine Protein Urine Glucose (UA) Urine Ketones Urine Blood Urine Nitrite Ur Leukocyte Esterase Urine RBC Urine WBC Ur Squamous Epith Cells Urine Bacteria Hyaline Casts Urine Osmolality Ur Random Sodium Urine Opiates Screen Ur Buprenorphine Scrn Ur Oxycodone Screen Urine Methadone Screen Urine Fentanyl Screen Ur Barbiturates Screen Carbamazepine Ur Phencyclidine Scrn Ur Amphetamines Screen U Benzodiazepines Scrn Urine Cocaine Screen U Marijuana (THC) Screen COVID-19 ([facility]) COVID-19 Clin Com Influenza Type A (AMANDA) Influenza Type B (AMANDA) Influenza A & B Note TB Test (T-Spot) Com TB Test Nil Control TB Test Panel A TB Test Panel B TB Test Positive [facility] 12/30/24 12/30/24 12/30/24 14:38 16:28 19:26 WBC RBC Hgb Hct MCV MCH MCHC RDW Plt Count MPV Immature Gran % (Auto) Neut % (Auto) Lymph % (Auto) [place] % (Auto) Eos % (Auto) Baso % (Auto) Lymph # (Auto) [place] # (Auto) Eos # (Auto) Baso # (Auto) Abs Immat Gran (auto) Absolute Neuts (auto) Absolute Nucleated RBC Nucleated RBC % (auto) Smear Tech's Comments Hold Purple Top VBG pH VBG pCO2 VBG pO2 VBG HCO3 VBG O2 Saturation VBG Base Excess Sodium Potassium Chloride Carbon Dioxide Anion Gap BUN Creatinine Estim Creat Clear Calc Estimated GFR POC Glucose 100 140 H 179 H Random Glucose Estimat Average Glucose Hemoglobin A1c % Osmolality Lactic Acid Calcium Magnesium Iron TIBC % Saturation Unsat Iron Binding Total Bilirubin AST ALT Alkaline Phosphatase Total Protein Albumin Triglycerides Cholesterol LDL Cholesterol, Calc HDL Cholesterol Lipase TSH Free T4 Urine Color Urine Appearance Urine pH Ur Specific [place] Urine Protein Urine Glucose (UA) Urine Ketones Urine Blood Urine Nitrite Ur Leukocyte Esterase Urine RBC Urine WBC Ur Squamous Epith Cells Urine Bacteria Hyaline Casts Urine Osmolality Ur Random Sodium Urine Opiates Screen Ur Buprenorphine Scrn Ur Oxycodone Screen Urine Methadone Screen Urine Fentanyl Screen Ur Barbiturates Screen Carbamazepine Ur Phencyclidine Scrn Ur Amphetamines Screen U Benzodiazepines Scrn Urine Cocaine Screen U Marijuana (THC) Screen COVID-19 ([facility]) COVID-19 Clin Com Influenza Type A (AMANDA) Influenza Type B (AMANDA) Influenza A & B Note TB Test (T-Spot) Com TB Test Nil Control TB Test Panel A TB Test Panel B [facility] 12/31/24 12/31/24 06:21 11:26 16:07 WBC RBC Hgb Hct MCV MCH MCHC RDW Plt Count MPV Immature Gran % (Auto) Neut % (Auto) Lymph % (Auto) [place] % (Auto) Eos % (Auto) Baso % (Auto) Lymph # (Auto) [place] # (Auto) Eos # (Auto) Baso # (Auto) Abs Immat Gran (auto) Absolute Neuts (auto) Absolute Nucleated RBC Nucleated RBC % (auto) Smear Tech's Comments Hold Purple Top VBG pH VBG pCO2 VBG pO2 VBG HCO3 VBG O2 Saturation VBG Base Excess Sodium Potassium Chloride Carbon Dioxide Anion Gap BUN Creatinine Estim Creat Clear Calc Estimated GFR POC Glucose 236 H 245 H 166 H Random Glucose Estimat Average Glucose Hemoglobin A1c % Osmolality Lactic Acid Calcium Magnesium Iron TIBC % Saturation Unsat Iron Binding Total Bilirubin AST ALT Alkaline Phosphatase Total Protein Albumin Triglycerides Cholesterol LDL Cholesterol, Calc HDL Cholesterol Lipase TSH Free T4 Urine Color Urine Appearance Urine pH Ur Specific [place] Urine Protein Urine Glucose (UA) Urine Ketones Urine Blood Urine Nitrite Ur Leukocyte Esterase Urine RBC Urine WBC Ur Squamous Epith Cells Urine Bacteria Hyaline Casts Urine Osmolality Ur Random Sodium Urine Opiates Screen Ur Buprenorphine Scrn Ur Oxycodone Screen Urine Methadone Screen Urine Fentanyl Screen Ur Barbiturates Screen Carbamazepine Ur Phencyclidine Scrn Ur Amphetamines Screen U Benzodiazepines Scrn Urine Cocaine Screen U Marijuana (THC) Screen COVID-19 ([facility]) COVID-19 Clin Com Influenza Type A (AMANDA) Influenza Type B (AMANDA) Influenza A & B Note TB Test (T-Spot) Com TB Test Nil Control TB Test Panel A TB Test Panel B TB Test Positive [facility] 12/31/24 01/01/25 01/01/25 20:36 06:10 10:35 WBC RBC Hgb Hct MCV MCH MCHC RDW Plt Count MPV Immature Gran % (Auto) Neut % (Auto) Lymph % (Auto) [place] % (Auto) Eos % (Auto) Baso % (Auto) Lymph # (Auto) [place] # (Auto) Eos # (Auto) Baso # (Auto) Abs Immat Gran (auto) Absolute Neuts (auto) Absolute Nucleated RBC Nucleated RBC % (auto) Smear Tech's Comments Hold Purple Top VBG pH VBG pCO2 VBG pO2 VBG HCO3 VBG O2 Saturation VBG Base Excess Sodium Potassium Chloride Carbon Dioxide Anion Gap BUN Creatinine Estim Creat Clear Calc Estimated GFR POC Glucose 130 H 186 H 263 H Random Glucose Estimat Average Glucose Hemoglobin A1c % Osmolality Lactic Acid Calcium Magnesium Iron TIBC % Saturation Unsat Iron Binding Total Bilirubin AST ALT Alkaline Phosphatase Total Protein Albumin Triglycerides Cholesterol LDL Cholesterol, Calc HDL Cholesterol Lipase TSH Free T4 Urine Color Urine Appearance Urine pH Ur Specific [place] Urine Protein Urine Glucose (UA) Urine Ketones Urine Blood Urine Nitrite Ur Leukocyte Esterase Urine RBC Urine WBC Ur Squamous Epith Cells Urine Bacteria Hyaline Casts Urine Osmolality Ur Random Sodium Urine Opiates Screen Ur Buprenorphine Scrn Ur Oxycodone Screen Urine Methadone Screen Urine Fentanyl Screen Ur Barbiturates Screen Carbamazepine Ur Phencyclidine Scrn Ur Amphetamines Screen U Benzodiazepines Scrn Urine Cocaine Screen U Marijuana (THC) Screen COVID-19 ([facility]) COVID-19 Clin Com Influenza Type A (AMANDA) Influenza Type B (AMANDA) Influenza A & B Note TB Test (T-Spot) Com TB Test Nil Control TB Test Panel A TB Test Panel B TB Test Positive [facility] 01/01/25 01/01/25 01/02/25 16:17 20:04 06:32 WBC RBC Hgb Hct MCV MCH MCHC RDW Plt Count MPV Immature Gran % (Auto) Neut % (Auto) Lymph % (Auto) [place] % (Auto) Eos % (Auto) Baso % (Auto) Lymph # (Auto) [place] # (Auto) Eos # (Auto) Baso # (Auto) Abs Immat Gran (auto) Absolute Neuts (auto) Absolute Nucleated RBC Nucleated RBC % (auto) Smear Tech's Comments Hold Purple Top VBG pH VBG pCO2 VBG pO2 VBG HCO3 VBG O2 Saturation VBG Base Excess Sodium Potassium Chloride Carbon Dioxide Anion Gap BUN Creatinine Estim Creat Clear Calc Estimated GFR POC Glucose 184 H 180 H 194 H Random Glucose Estimat Average Glucose Hemoglobin A1c % Osmolality Lactic Acid Calcium Magnesium Iron TIBC % Saturation Unsat Iron Binding Total Bilirubin AST ALT Alkaline Phosphatase Total Protein Albumin Triglycerides Cholesterol LDL Cholesterol, Calc HDL Cholesterol Lipase TSH Free T4 Urine Color Urine Appearance Urine pH Ur Specific [place] Urine Protein Urine Glucose (UA) Urine Ketones Urine Blood Urine Nitrite Ur Leukocyte Esterase Urine RBC Urine WBC Ur Squamous Epith Cells Urine Bacteria Hyaline Casts Urine Osmolality Ur Random Sodium Urine Opiates Screen Ur Buprenorphine Scrn Ur Oxycodone Screen Urine Methadone Screen Urine Fentanyl Screen Ur Barbiturates Screen Carbamazepine Ur Phencyclidine Scrn Ur Amphetamines Screen U Benzodiazepines Scrn Urine Cocaine Screen U Marijuana (THC) Screen COVID-19 ([facility]) COVID-19 Clin Com Influenza Type A (AMANDA) Influenza Type B (AMANDA) Influenza A & B Note TB Test (T-Spot) Com TB Test Nil Control TB Test Panel A TB Test Panel B TB Test Positive [facility] 01/02/25 01/02/25 11:20 16:21 WBC RBC Hgb Hct MCV MCH MCHC RDW Plt Count MPV Immature Gran % (Auto) Neut % (Auto) Lymph % (Auto) [place] % (Auto) Eos % (Auto) Baso % (Auto) Lymph # (Auto) [place] # (Auto) Eos # (Auto) Baso # (Auto) Abs Immat Gran (auto) Absolute Neuts (auto) Absolute Nucleated RBC Nucleated RBC % (auto) Smear Tech's Comments Hold Purple Top VBG pH VBG pCO2 VBG pO2 VBG HCO3 VBG O2 Saturation VBG Base Excess Sodium Potassium Chloride Carbon Dioxide Anion Gap BUN Creatinine Estim Creat Clear Calc Estimated GFR POC Glucose 259 H 103 Random Glucose Estimat Average Glucose Hemoglobin A1c % Osmolality Lactic Acid Calcium Magnesium Iron TIBC % Saturation Unsat Iron Binding Total Bilirubin AST ALT Alkaline Phosphatase Total Protein Albumin Triglycerides Cholesterol LDL Cholesterol, Calc HDL Cholesterol Lipase TSH Free T4 Urine Color Urine Appearance Urine pH Ur Specific [place] Urine Protein Urine Glucose (UA) Urine Ketones Urine Blood Urine Nitrite Ur Leukocyte Esterase Urine RBC Urine WBC Ur Squamous Epith Cells Urine Bacteria Hyaline Casts Urine Osmolality Ur Random Sodium Urine Opiates Screen Ur Buprenorphine Scrn Ur Oxycodone Screen Urine Methadone Screen Urine Fentanyl Screen Ur Barbiturates Screen Carbamazepine Ur Phencyclidine Scrn Ur Amphetamines Screen U Benzodiazepines Scrn Urine Cocaine Screen U Marijuana (THC) Screen COVID-19 ([facility]) COVID-19 Clin Com Influenza Type A (AMANDA) Influenza Type B (AMANDA) Influenza A & B Note TB Test (T-Spot) Com TB Test Nil Control TB Test Panel A TB Test Panel B TB Test Positive Cntrl Airway Mallampati Class: II TM Dist: >3cm Neck ROM: Full Lungs: cta Assessment and Plan Assessment Anesthesia Assessment: Anesthesia Plan Discussed and Chart Reviewed Final Anesthetic Review Family History of Problems with Anesthesia: No History of Problems with Anesthesia: No NPO: Yes ASA Class: III Final Preanesthetic Review: No Changes in Pt Med Stat, Meds/Allgs Chart Reviewed, Consent Obtained/Reviewed and Anes Risks/Benef Reviewed Patient Risk: Intermediate Procedure Risk: Intermediate Anesthetic Plan Anesthetic Plan: GA Disposition: Standard PACU
--- NOTE | 2025-01-03 07:19 | MHC.SHP ---
Pre-Procedural Eval Section A - 24 Hr Update-Section A only Date of Service: 01/03/25 The patient is an INPATIENT: Yes Changes since office visit: Yes Patient answered all questions; No Cold of Flu in the past 2 weeks, No New Medical Problems and No Changes in Medication The patient has been examined within 24 hours of the surgical procedure. The History & Physical has been completed within 30 days and I have reviewed it.: Yes Section B - Complete if H&P > 30 days Chief Complaint: SI with plan to OD on medications, increased anxie Allergies: Allergies Allergy/AdvReac Type Severity Reaction Status Date / Time ampicillin Allergy Rash Verified 10/20/24 19:28 morphine Allergy Rash Verified 10/20/24 19:28 Penicillins Allergy Rash Verified 10/20/24 19:28 pork derived (porcine) Allergy Vomiting Verified 11/10/24 17:49 Plan Diagnosis/Plan: Unchanged I have reviewed the history and physical and performed a pertinent physical examination on my patient. No changes have occurred unless specified. Time Spent With Patient Time: Total time managing care of this patient today ____ minutes.
--- NOTE | 2025-01-03 07:19 | HO.ECTPROC ---
ECT Procedure Note Diagnosis/Treatment Date of Service: 01/03/25 Diagnosis: Major Depressive Disorder Previous ECT Date: 01/01/25 Current Treatment Number: 6 Treatment: Series Interval Clinical Notes: pt doing well she states going to [facility] . no cognitive complaints from ect had wish to stop it 6 ECTs but is open to consideration of further treatment if needed Time: Total time managing care of this patient today ____ minutes. ECT Settings Device: THYMATRON DGx Electrode Placement: Rt temporal/ Lt frontal Program/Pulse Width: 0.50 Energy Percent: 100 Seizure Duration By EEG (in seconds): 16 Medications Administration General Anesthetic: Etomidate (12) Muscle Relaxant: Succinylcholine (80) Ancillary Medications Miscillaneous Medications: Flumazenil (250) Airway Management Airway Management: Bag Mask Ventilation Treatment Recommendations Electrode Placement: Bitemporal Program/Pulse Width: 0.50 Pt Tolerated Procedure w/o Issue: Yes
[2025-01-03 09:44] LABS: Glucose, Whole Blood 258 mg/dL (60-115)
[2025-01-03] MEDS: Fluticasone/Vilanterol 100/25 BLST.W.DEV 1 PUFF INHALE (10:23)
[2025-01-03] MEDS: buPROPion HCl XL 300 MG TAB.ER.24H PO (10:24)
[2025-01-03 11:11] LABS: Glucose, Whole Blood 364 mg/dL (60-115)
--- NOTE | 2025-01-03 12:11 | PC.NURSE ---
When pt returned from ECT RN checked pt blood sugar at 0930 as she wanted to eat breakfast and it was 258. RN covered pt with 6 units of insulin lispro before her meal. At 1100 pt was stating she was hungry and asking to have her lunch. RN rechecked pt blood sugar before lunch as it was 364. Provider was notified and advised that if pt was to eat her lunch, she should receive 10 units per sliding scale. Pt ate her lunch and received 10 units of insulin lispro from RN.
--- NOTE | 2025-01-03 13:17 | HO.PM.IMPN ---
Subjective Subjective Date of Service: 01/03/25 Interval History: Patient seen for follow up hyperglycemia. On exam she is alert and calm, she has been going to ECT treatments. She feels well, denies any shortness of breath, dizziness lightheadedness or any other concerning symptoms. Her blood sugars have been between high 100s and 200s. Blood sugar noted to be 364 prior to lunch, she received usual sliding scale. Physical Exam Vital Signs: Vital Signs: Last Vital Signs Temp 97.1 F 01/03/25 09:34 Pulse 75 01/03/25 09:34 Resp 16 01/03/25 09:34 BP 134/78 01/03/25 09:34 Pulse Ox 94 01/03/25 09:34 O2 Del Method Room Air 01/03/25 09:34 O2 Flow Rate 2 01/03/25 07:55 BMI result Body Mass Index 22.8 Objective Data Active Medications Acetaminophen (Acetaminophen 325 Mg Tablet) 650 mg PO Q6H PRN PRN Reason: Headache/Pain, Scale 1-10 Last Admin: 01/01/25 20:40 Dose: 650 mg Documented By: BREE Al Hydroxide/Mg Hydroxide (Magnesium Hydrox/Alum Hydrox 30 Ml Oral.Susp) 30 ml PO Q6H PRN PRN Reason: Heartburn/Nausea Last Admin: 12/31/24 18:46 Dose: 30 ml Documented By: GREGG Albuterol Sulfate (Albuterol Sulfate (0.083%) 2.5 Mg/3 Ml Vial.Neb) 2.5 mg INHALE ONCE PRN PRN Reason: Shortness of Breath/Wheezing Last Admin: 12/16/24 07:11 Dose: 2.5 mg Documented By: CESAR Albuterol Sulfate (Albuterol Sulfate 90 Mcg 8 Gm Inhaler) 4 puff INHALE Q4H PRN PRN Reason: Shortness Of Breath Or Wheezin Amlodipine Besylate (Amlodipine Besylate 2.5 Mg Tablet) 2.5 mg PO DAILY [facility]; Protocol Last Admin: 01/03/25 10:25 Dose: 2.5 mg Documented By: PETE Atorvastatin Calcium (Atorvastatin Calcium 20 Mg Tablet) 20 mg PO DAILY [facility] Last Admin: 01/03/25 10:26 Dose: 20 mg Documented By: PETE Bisacodyl (Bisacodyl 10 Mg Supp.Rect) 10 mg NE BEDTIME PRN PRN Reason: Constipation Last Admin: 11/04/24 20:37 Dose: 10 mg Documented By: BRAULIO Bupropion HCl (Bupropion Hcl Xl 300 Mg Tab.Er.24h) 300 mg PO DAILY [facility] Last Admin: 01/03/25 10:24 Dose: 300 mg Documented By: PETE Buspirone HCl (Buspirone Hcl 10 Mg Tablet) 20 mg PO TID [facility] Last Admin: 01/03/25 10:23 Dose: 20 mg Documented By: PETE Calcium Carbonate (Calcium Carbonate 750 Mg Tab.Chew) 750 mg PO Q4H PRN PRN Reason: Heartburn Last Admin: 11/30/24 21:34 Dose: 750 mg Documented By: BREE Clonazepam (Clonazepam Odt 0.125 Mg Tab.Rapdis) 0.125 mg PO BID PRN PRN Reason: severe anxiety Last Admin: 01/01/25 10:00 Dose: 0.125 mg Documented By: BIRTT Dicyclomine HCl (Dicyclomine Hcl 10 Mg Capsule) 10 mg PO Q4H PRN PRN Reason: abdominal cramping Last Admin: 12/17/24 13:55 Dose: 10 mg Documented By: BEBETO Docusate Sodium (Docusate Sodium 100 Mg Capsule) 100 mg PO BID [facility] Last Admin: 01/03/25 10:26 Dose: 100 mg Documented By: PETE Duloxetine HCl (Duloxetine Hcl 60 Mg Capsule.Dr) 60 mg PO DAILY [facility] Last Admin: 01/03/25 10:24 Dose: 60 mg Documented By: PETE Fluticasone/Vilanterol (Fluticasone/Vilanterol 100/25 Blst.W.Dev) 1 puff INHALE RDAILY [facility] Last Admin: 01/03/25 10:23 Dose: 1 puff Documented By: PETE Glipizide (Glipizide Xl 2.5 Mg Tab.Er.24) 2.5 mg PO DAILY [facility] Last Admin: 01/03/25 10:26 Dose: 2.5 mg Documented By: PETE Guaifenesin (Guaifenesin La 600 Mg Tab.Er.12h) 1,200 mg PO BID PRN PRN Reason: Cough Last Admin: 12/16/24 14:35 Dose: 1,200 mg Documented By: PETE Lactated Ringer's (Lr) 1,000 mls @ 50 mls/hr IVCONT .Q20H [facility] Insulin Human Lispro (Insulin Lispro 100 Unit/Ml 3 Ml Vial) 0 unit SUBCUT TIDAC [facility]; Protocol Last Admin: 01/03/25 11:49 Dose: 10 unit Documented By: PETE Lisinopril (Lisinopril 2.5 Mg Tablet) 2.5 mg PO DAILY [facility]; Protocol Last Admin: 01/03/25 10:25 Dose: 2.5 mg Documented By: PETE Magnesium Hydroxide (Milk Of Magnesia 30 Ml Oral.Susp) 30 ml PO DAILY PRN PRN Reason: Constipation Last Admin: 11/04/24 16:49 Dose: 30 ml Mirtazapine (Mirtazapine 30 Mg Tablet) 30 mg PO BEDTIME [facility] Last Admin: 01/02/25 21:19 Dose: 30 mg Documented By: ASA Naloxone HCl (Naloxone Hcl 0.4 Mg/Ml Vial) 0.04 mg IVPUSH Q5M PRN PRN Reason: Excessive sedation or RR < 8 Naloxone HCl (Naloxone Hcl 0.4 Mg/Ml Vial) 0.04 mg IVPUSH Q5M PRN PRN Reason: Excessive sedation or RR < 8 Omeprazole (Omeprazole 20 Mg Capsule.Dr) 20 mg PO BID@0630,1630 [facility] Last Admin: 01/02/25 16:54 Dose: 20 mg Documented By: BRITT Ondansetron HCl (Ondansetron Odt 4 Mg Tab.Rapdis) 4 mg TRANSLINGU Q4H PRN PRN Reason: Nausea and Vomiting Last Admin: 12/31/24 11:35 Dose: 4 mg Documented By: GREGG Polyethylene Glycol (Polyethylene Glycol 3350 17 Gm Powd.Pack) 17 gm PO BID [facility] Last Admin: 01/03/25 10:23 Dose: 17 gm Documented By: PETE Pramipexole Dihydrochloride (Pramipexole Di-Hcl 0.125 Mg Tablet) 0.125 mg PO DAILY [facility] Last Admin: 01/03/25 10:25 Dose: 0.125 mg Documented By: PETE Pyridoxine HCl (Pyridoxine Hcl (Vitamin B6) 50 Mg Tablet) 50 mg PO DAILY [facility] Last Admin: 01/03/25 10:26 Dose: 50 mg Documented By: PETE Ropinirole HCl (Ropinirole Hcl 2 Mg Tablet) 2 mg PO DAILY@1700 [facility] Last Admin: 01/02/25 16:54 Dose: 2 mg Documented By: BRITT Simethicone (Simethicone 80 Mg Tab.Chew) 80 mg PO QIDWMHS [facility] Last Admin: 01/03/25 11:49 Dose: 80 mg Documented By: PETE Trazodone HCl (Trazodone Hcl 50 Mg Tablet) 50 mg PO BEDTIME MRX1 PRN PRN Reason: Insomnia Last Admin: 01/01/25 20:41 Dose: 50 mg Documented By: BREE Labs 11/02/24 20:14 12/20/24 08:43 Labs: Laboratory Results - last 24 hr 01/02/25 01/03/25 01/03/25 16:21 09:38 11:07 POC Glucose 103 258 H 364 H* Assessment and Plan (1) Forehead laceration: Status: Acute Plan Anxiety with suicidal ideation Plan per Psychiatry Undergoing ECT treatments Type 2 diabetes Continue with glipizide and SS Recent A1c 7.2, acceptable range for her age. We will add sliding scale insulin to improve glucose control, to help with symptoms of gastroparesis Avoid hypoglycemia, sugars 200-300 acceptable. Chronic abdominal plain/gastroparesis, chronic mild gastritis, history of diverticulosis Patient is at [facility], she has had Botox injections in the past last in March 2024 Patient had a recent upper endoscopy negative for H pylori or any abnormalities Continues on duloxetine, may help with chronic pain. Continues with omeprazole twice daily Avoid constipation. Avoid opiates and anticholinergics Restless leg syndrome Patient continues on gabapentin and Mirapex twice daily Hypertension/hyperlipidemia Continue atorvastatin, lisinopril, and amlodipine Blood pressure stable Thank you for allowing me to participate in the care of this patient. Will follow as needed. Please reconsult of any acute concerns or issues arise Quality Stroke Does the patient have a stroke diagnosis?: No VTE Prior VTE?: No VTE Risk Level:: Medical - low VTE Device Contraindication: Treatment Not Indicated VTE Drug Contraindication: Treatment Not Indicated
[2025-01-03 14:39] LABS: Glucose, Whole Blood 62 mg/dL (60-115)
[2025-01-03 15:01] LABS: Glucose, Whole Blood 82 mg/dL (60-115)
[2025-01-03 15:45] LABS: Glucose, Whole Blood 136 mg/dL (60-115)
--- NOTE | 2025-01-03 16:21 | PC.NURSE ---
In the afternoon pt reported feeling lightheaded and dizzy. RN checked pt blood sugar and it was 62 at 1434. Per protocol pt received 4oz of apple juice. Pt blood glucose rechecked at 1457 and was 82. Pt was still feeling dizzy and lightheaded so RN gave pt another 4oz of apple juice. Pt blood glucose rechecked as pt was still feeling lightheaded and it was 136. Pt requested and received an apple sauce.
[2025-01-03 16:22] LABS: Glucose, Whole Blood 111 mg/dL (60-115)
--- NOTE | 2025-01-03 17:11 | HO.PSYCHPN ---
Subjective Subjective Date of Service: 01/03/25 Reason For Visit: SI with plan to OD on medications, increased anxie Subjective Notes: Conditional Voluntary Healthcare Proxy: Yes Interim History: Patient much improved had ECT number 6 today bilateral still has relatively short seizure but has responded well to treatment. Patient will be eventually transitioning to [facility] Mental Status Exam Mental Status Exam Narrative: Patient Appearance: Well Groomed, adequate hygiene Patient Behavior: Appropriate Ability to Follow Directions: Excellent Level of Consciousness: Awake, alert Patient Orientation: Person, Place and Time Memory: grossly intact to recent events Psychomotor: no agitation or slowing Speech: normal rate, tone, volume Mood: ?okay? Affect: appropriate range Thought Process: Goal Oriented Thought Content: denies SI/HI; focused on treatment questions Hallucinations: Denies; does not appear preoccupied Delusions: None evinced Insight: mild impairment Judgement: Fair impulsivity: low Diagnostics Vital Signs (24Hr): Vital Signs - 24 hr 01/03/25 06:33 01/03/25 07:38 01/03/25 07:40 Temperature 97 F 98 F Pulse Rate 83 78 72 Respiratory Rate 18 18 18 Blood Pressure 130/68 193/99 H 165/88 H Pulse Oximetry 97 98 98 Oxygen Delivery Method Room Air Nasal Cannula with ETCO2 Nasal Cannula with ETCO2 Oxygen Flow Rate 2 2 01/03/25 07:45 01/03/25 07:50 01/03/25 07:55 Temperature Pulse Rate 72 72 72 Respiratory Rate 18 18 18 Blood Pressure 176/84 H 152/79 H 147/73 H Pulse Oximetry 98 98 98 Oxygen Delivery Method Nasal Cannula with ETCO2 Nasal Cannula with ETCO2 Nasal Cannula with ETCO2 Oxygen Flow Rate 2 2 2 01/03/25 08:10 01/03/25 08:15 01/03/25 09:34 Temperature 98 F 97.1 F Pulse Rate 71 70 75 Respiratory Rate 18 18 16 Blood Pressure 144/73 H 138/73 134/78 Pulse Oximetry 96 97 94 Oxygen Delivery Method Room Air Room Air Room Air Oxygen Flow Rate BMI result Body Mass Index 22.8 Labs 11/02/24 20:14 12/20/24 08:43 Labs: Laboratory Results - last 48 hr 01/01/25 01/02/25 01/02/25 20:04 06:32 11:20 POC Glucose 180 H 194 H 259 H 01/02/25 01/03/2525 16:21 09:38 11:07 POC Glucose 103 258 H 364 H* 01/03/25 01/03/25 01/03/25 14:34 14:57 15:41 POC Glucose 62 82 136 H 01/03/25 16:19 POC Glucose 111 Imaging Radiology Impressions: ITS Impressions Hip/Pelvis X-Ray 11/05/24 11:00 IMPRESSION: Unremarkable examination of the left hip. Electronically signed by: Sam Saini MD 11/05/2024 11:13 AM EDT RP KUB X-Ray 11/06/24 09:20 IMPRESSION: Large amount of stool throughout the colon. Electronically signed by: Sam Saini MD 11/06/2024 09:34 AM EDT RP Head CT 11/08/24 14:58 IMPRESSION: Left frontal soft tissue swelling. No acute intracranial abnormality. Electronically signed by: Sam Saini MD 11/08/2024 03:18 PM EDT RP Medications Medications Current Medications Acetaminophen (Acetaminophen 325 Mg Tablet) 650 mg PO Q6H PRN PRN Reason: Headache/Pain, Scale 1-10 Last Admin: 01/01/25 20:40 Dose: 650 mg Al Hydroxide/Mg Hydroxide (Magnesium Hydrox/Alum Hydrox 30 Ml Oral.Susp) 30 ml PO Q6H PRN PRN Reason: Heartburn/Nausea Last Admin: 12/31/24 18:46 Dose: 30 ml Albuterol Sulfate (Albuterol Sulfate (0.083%) 2.5 Mg/3 Ml Vial.Neb) 2.5 mg INHALE ONCE PRN PRN Reason: Shortness of Breath/Wheezing Last Admin: 12/16/24 07:11 Dose: 2.5 mg Albuterol Sulfate (Albuterol Sulfate 90 Mcg 8 Gm Inhaler) 4 puff INHALE Q4H PRN PRN Reason: Shortness Of Breath Or Wheezin Amlodipine Besylate (Amlodipine Besylate 2.5 Mg Tablet) 2.5 mg PO DAILY [facility]; Protocol Last Admin: 01/03/25 10:25 Dose: 2.5 mg Atorvastatin Calcium (Atorvastatin Calcium 20 Mg Tablet) 20 mg PO DAILY [facility] Last Admin: 01/03/25 10:26 Dose: 20 mg Bisacodyl (Bisacodyl 10 Mg Supp.Rect) 10 mg OR BEDTIME PRN PRN Reason: Constipation Last Admin: 11/04/24 20:37 Dose: 10 mg Bupropion HCl (Bupropion Hcl Xl 300 Mg Tab.Er.24h) 300 mg PO DAILY [facility] Last Admin: 01/03/25 10:24 Dose: 300 mg Buspirone HCl (Buspirone Hcl 10 Mg Tablet) 20 mg PO TID [facility] Last Admin: 01/03/25 15:09 Dose: 20 mg Calcium Carbonate (Calcium Carbonate 750 Mg Tab.Chew) 750 mg PO Q4H PRN PRN Reason: Heartburn Last Admin: 11/30/24 21:34 Dose: 750 mg Clonazepam (Clonazepam Odt 0.125 Mg Tab.Rapdis) 0.125 mg PO BID PRN PRN Reason: severe anxiety Last Admin: 01/01/25 10:00 Dose: 0.125 mg Dicyclomine HCl (Dicyclomine Hcl 10 Mg Capsule) 10 mg PO Q4H PRN PRN Reason: abdominal cramping Last Admin: 12/17/24 13:55 Dose: 10 mg Docusate Sodium (Docusate Sodium 100 Mg Capsule) 100 mg PO BID [facility] Last Admin: 01/03/25 10:26 Dose: 100 mg Duloxetine HCl (Duloxetine Hcl 60 Mg Capsule.Dr) 60 mg PO DAILY [facility] Last Admin: 01/03/25 10:24 Dose: 60 mg Fluticasone/Vilanterol (Fluticasone/Vilanterol 100/25 Blst.W.Dev) 1 puff INHALE RDAILY [facility] Last Admin: 01/03/25 10:23 Dose: 1 puff Glipizide (Glipizide Xl 2.5 Mg Tab.Er.24) 2.5 mg PO DAILY [facility] Last Admin: 01/03/25 10:26 Dose: 2.5 mg Guaifenesin (Guaifenesin La 600 Mg Tab.Er.12h) 1,200 mg PO BID PRN PRN Reason: Cough Last Admin: 12/16/24 14:35 Dose: 1,200 mg Lactated Ringer's (Lr) 1,000 mls @ 50 mls/hr IVCONT .Q20H [facility] Insulin Human Lispro (Insulin Lispro 100 Unit/Ml 3 Ml Vial) 0 unit SUBCUT TIDAC [facility]; Protocol Last Admin: 01/03/25 16:27 Dose: Not Given Lisinopril (Lisinopril 2.5 Mg Tablet) 2.5 mg PO DAILY [facility]; Protocol Last Admin: 01/03/25 10:25 Dose: 2.5 mg Magnesium Hydroxide (Milk Of Magnesia 30 Ml Oral.Susp) 30 ml PO DAILY PRN PRN Reason: Constipation Last Admin: 11/04/24 16:49 Dose: 30 ml Mirtazapine (Mirtazapine 30 Mg Tablet) 30 mg PO BEDTIME [facility] Last Admin: 01/02/25 21:19 Dose: 30 mg Naloxone HCl (Naloxone Hcl 0.4 Mg/Ml Vial) 0.04 mg IVPUSH Q5M PRN PRN Reason: Excessive sedation or RR < 8 Naloxone HCl (Naloxone Hcl 0.4 Mg/Ml Vial) 0.04 mg IVPUSH Q5M PRN PRN Reason: Excessive sedation or RR < 8 Omeprazole (Omeprazole 20 Mg Capsule.Dr) 20 mg PO BID@0630,1630 [facility] Last Admin: 01/03/25 16:34 Dose: 20 mg Ondansetron HCl (Ondansetron Odt 4 Mg Tab.Rapdis) 4 mg TRANSLINGU Q4H PRN PRN Reason: Nausea and Vomiting Last Admin: 12/31/24 11:35 Dose: 4 mg Polyethylene Glycol (Polyethylene Glycol 3350 17 Gm Powd.Pack) 17 gm PO BID [facility] Last Admin: 01/03/25 10:23 Dose: 17 gm Pramipexole Dihydrochloride (Pramipexole Di-Hcl 0.125 Mg Tablet) 0.125 mg PO DAILY [facility] Last Admin: 01/03/25 10:25 Dose: 0.125 mg Pyridoxine HCl (Pyridoxine Hcl (Vitamin B6) 50 Mg Tablet) 50 mg PO DAILY [facility] Last Admin: 01/03/25 10:26 Dose: 50 mg Ropinirole HCl (Ropinirole Hcl 2 Mg Tablet) 2 mg PO DAILY@1700 [facility] Last Admin: 01/03/25 16:33 Dose: 2 mg Simethicone (Simethicone 80 Mg Tab.Chew) 80 mg PO QIDWMHS [facility] Last Admin: 01/03/25 16:33 Dose: 80 mg Trazodone HCl (Trazodone Hcl 50 Mg Tablet) 50 mg PO BEDTIME MRX1 PRN PRN Reason: Insomnia Last Admin: 01/01/25 20:41 Dose: 50 mg Allergies Allergies Allergy/AdvReac Type Severity Reaction Status Date / Time ampicillin Allergy Rash Verified 10/20/24 19:28 morphine Allergy Rash Verified 10/20/24 19:28 Penicillins Allergy Rash Verified 10/20/24 19:28 pork derived (porcine) Allergy Vomiting Verified 11/10/24 17:49 Assessment & Plan Assessment & Plan (1) Forehead laceration: Status: Acute Code(s): S01.81XA - Laceration without foreign body of other part of head, initial encounter Plan Anxiety with suicidal ideation Plan per Psychiatry Undergoing ECT treatments Type 2 diabetes Continue with glipizide and SS Recent A1c 7.2, acceptable range for her age. We will add sliding scale insulin to improve glucose control, to help with symptoms of gastroparesis Avoid hypoglycemia, sugars 200-300 acceptable. Chronic abdominal plain/gastroparesis, chronic mild gastritis, history of diverticulosis Patient is at [facility], she has had Botox injections in the past last in March 2024 Patient had a recent upper endoscopy negative for H pylori or any abnormalities Continues on duloxetine, may help with chronic pain. Continues with omeprazole twice daily Avoid constipation. Avoid opiates and anticholinergics Restless leg syndrome Patient continues on gabapentin and Mirapex twice daily Hypertension/hyperlipidemia Continue atorvastatin, lisinopril, and amlodipine Blood pressure stable Thank you for allowing me to participate in the care of this patient. Will follow as needed. Please reconsult of any acute concerns or issues arise 01/03/2025 ECT held on 6. Consider restart if needed patient does appear open to this. Continue Wellbutrin and Cymbalta Patient educated on: diagnosis and ECT Informed Consent: further education needed Reason for continued inpatient stay Substantial Risk for: harm to self and inability to function Time Spent With Patient Time: Total time managing care of this patient today __30__ minutes.
[2025-01-03 21:30] LABS: Glucose, Whole Blood 226 mg/dL (60-115)
[2025-01-04 06:43] LABS: Glucose, Whole Blood 229 mg/dL (60-115)
[2025-01-04 08:46] VITALS: BP 152/75; PULSE 94; RESP 14; TEMP 36.4; O2SAT 98
[2025-01-04] MEDS: Fluticasone/Vilanterol 100/25 BLST.W.DEV 1 PUFF INHALE (08:46)
[2025-01-04 08:47] VITALS: BP 152/75
[2025-01-04] MEDS: buPROPion HCl XL 300 MG TAB.ER.24H PO (08:47)
[2025-01-04 11:25] LABS: Glucose, Whole Blood 274 mg/dL (60-115)
--- NOTE | 2025-01-04 14:37 | P.PNPSI_ITS ---
Subjective Subjective Date of Service: 01/04/25 Reason For Visit: SI with plan to OD on medications, increased anxie Subjective Notes: Conditional Voluntary Healthcare Proxy: No Interim History: Presents much calmer than at the last time technical writer and editor saw her two months ago. Tolerating ECT thus far. Reports no anxiety. Reports good sleep. Denies SI/HI/AVH. Medication Compliance: Yes Side effects from medications: No Review of Systems Acute medical concerns: No Mental Status Exam Mental Status Exam Patient Appearance: Well Grooomed Patient Orientation: Person, Place and Time Level of Consciousness: Awake Patient Behavior: Appropriate Mood Description: Calm ( good ) Affect Description: Calm and Relaxed Ability to Follow Directions: Excellent Speech Pattern: Clear Hallucinations: None Delusions: Not Present Thought Process: Goal Oriented Thought Content: negative for Suicidal Ideation or negative for Homicidal Ideation Judgement: Fair Diagnostics Vital Signs (24Hr): Vital Signs - 24 hr 01/03/25 20:00 01/04/25 08:46 01/04/25 08:46 Temperature 97.2 F 97.5 F Pulse Rate 86 94 Respiratory Rate 18 14 Blood Pressure 124/58 L 152/75 H 152/75 H Pulse Oximetry 96 98 Oxygen Delivery Method Room Air Room Air 01/04/25 08:47 Temperature Pulse Rate Respiratory Rate Blood Pressure 152/75 H Pulse Oximetry Oxygen Delivery Method BMI result Body Mass Index 22.8 Labs 11/02/24 20:14 12/20/24 08:43 Labs: Laboratory Results - last 48 hr 01/02/25 01/03/25 01/03/25 16:21 09:38 11:07 POC Glucose 103 258 H 364 H* 01/03/25 01/03/25 01/03/25 14:34 14:57 15:41 POC Glucose 62 82 136 H 01/03/25 01/03/25 01/04/25 16:19 21:13 06:34 POC Glucose 111 226 H 229 H 01/04/25 11:21 POC Glucose 274 H Imaging Radiology Impressions: ITS Impressions Hip/Pelvis X-Ray 11/05/24 11:00 IMPRESSION: Unremarkable examination of the left hip. Electronically signed by: Sam Saini MD 11/05/2024 11:13 AM EDT KUB X-Ray 11/06/24 09:20 IMPRESSION: Large amount of stool throughout the colon. Electronically signed by: Sam Saini MD 11/06/2024 09:34 AM EDT RP Head CT 11/08/24 14:58 IMPRESSION: Left frontal soft tissue swelling. No acute intracranial abnormality. Electronically signed by: Sam Saini MD 11/08/2024 03:18 PM EDT RP Medications Medications Current Medications Acetaminophen (Acetaminophen 325 Mg Tablet) 650 mg PO Q6H PRN PRN Reason: Headache/Pain, Scale 1-10 Last Admin: 01/01/25 20:40 Dose: 650 mg Al Hydroxide/Mg Hydroxide (Magnesium Hydrox/Alum Hydrox 30 Ml Oral.Susp) 30 ml PO Q6H PRN PRN Reason: Heartburn/Nausea Last Admin: 12/31/24 18:46 Dose: 30 ml Albuterol Sulfate (Albuterol Sulfate (0.083%) 2.5 Mg/3 Ml Vial.Neb) 2.5 mg INHALE ONCE PRN PRN Reason: Shortness of Breath/Wheezing Last Admin: 12/16/24 07:11 Dose: 2.5 mg Albuterol Sulfate (Albuterol Sulfate 90 Mcg 8 Gm Inhaler) 4 puff INHALE Q4H PRN PRN Reason: Shortness Of Breath Or Wheezin Amlodipine Besylate (Amlodipine Besylate 2.5 Mg Tablet) 2.5 mg PO DAILY REPLACED BY [facility]; Protocol Last Admin: 01/04/25 08:46 Dose: 2.5 mg Atorvastatin Calcium (Atorvastatin Calcium 20 Mg Tablet) 20 mg PO DAILY REPLACED BY [facility] Last Admin: 01/04/25 08:47 Dose: 20 mg Bisacodyl (Bisacodyl 10 Mg Supp.Rect) 10 mg AL BEDTIME PRN PRN Reason: Constipation Last Admin: 11/04/24 20:37 Dose: 10 mg Bupropion HCl (Bupropion Hcl Xl 300 Mg Tab.Er.24h) 300 mg PO DAILY REPLACED BY [facility] Last Admin: 01/04/25 08:47 Dose: 300 mg Buspirone HCl (Buspirone Hcl 10 Mg Tablet) 20 mg PO TID RICHARD Last Admin: 01/04/25 14:21 Dose: 20 mg Calcium Carbonate (Calcium Carbonate 750 Mg Tab.Chew) 750 mg PO Q4H PRN PRN Reason: Heartburn Last Admin: 11/30/24 21:34 Dose: 750 mg Clonazepam (Clonazepam Odt 0.125 Mg Tab.Rapdis) 0.125 mg PO BID PRN PRN Reason: severe anxiety Last Admin: 01/01/25 10:00 Dose: 0.125 mg Dicyclomine HCl (Dicyclomine Hcl 10 Mg Capsule) 10 mg PO Q4H PRN PRN Reason: abdominal cramping Last Admin: 12/17/24 13:55 Dose: 10 mg Docusate Sodium (Docusate Sodium 100 Mg Capsule) 100 mg PO BID REPLACED BY [facility] Last Admin: 01/04/25 08:47 Dose: 100 mg Duloxetine HCl (Duloxetine Hcl 60 Mg Capsule.Dr) 60 mg PO DAILY REPLACED BY [facility] Last Admin: 01/04/25 08:47 Dose: 60 mg Fluticasone/Vilanterol (Fluticasone/Vilanterol 100/25 Blst.W.Dev) 1 puff INHALE RDAILY REPLACED BY [facility] Last Admin: 01/04/25 08:46 Dose: 1 puff Glipizide (Glipizide Xl 2.5 Mg Tab.Er.24) 2.5 mg PO DAILY REPLACED BY [facility] Last Admin: 01/04/25 08:47 Dose: 2.5 mg Guaifenesin (Guaifenesin La 600 Mg Tab.Er.12h) 1,200 mg PO BID PRN PRN Reason: Cough Last Admin: 12/16/24 14:35 Dose: 1,200 mg Lactated Ringer's (Lr) 1,000 mls @ 50 mls/hr IVCONT .Q20H REPLACED BY [facility] Insulin Human Lispro (Insulin Lispro 100 Unit/Ml 3 Ml Vial) 0 unit SUBCUT TIDAC REPLACED BY [facility]; Protocol Last Admin: 01/04/25 12:05 Dose: 6 unit Lisinopril (Lisinopril 2.5 Mg Tablet) 2.5 mg PO DAILY REPLACED BY [facility]; Protocol Last Admin: 01/04/25 08:47 Dose: 2.5 mg Magnesium Hydroxide (Milk Of Magnesia 30 Ml Oral.Susp) 30 ml PO DAILY PRN PRN Reason: Constipation Last Admin: 11/04/24 16:49 Dose: 30 ml Mirtazapine (Mirtazapine 30 Mg Tablet) 30 mg PO BEDTIME REPLACED BY [facility] Last Admin: 01/03/25 21:17 Dose: 30 mg Naloxone HCl (Naloxone Hcl 0.4 Mg/Ml Vial) 0.04 mg IVPUSH Q5M PRN PRN Reason: Excessive sedation or RR < 8 Naloxone HCl (Naloxone Hcl 0.4 Mg/Ml Vial) 0.04 mg IVPUSH Q5M PRN PRN Reason: Excessive sedation or RR < 8 Omeprazole (Omeprazole 20 Mg Capsule.Dr) 20 mg PO BID@0630,1630 REPLACED BY [facility] Last Admin: 01/04/25 06:35 Dose: 20 mg Ondansetron HCl (Ondansetron Odt 4 Mg Tab.Rapdis) 4 mg TRANSLINGU Q4H PRN PRN Reason: Nausea and Vomiting Last Admin: 12/31/24 11:35 Dose: 4 mg Polyethylene Glycol (Polyethylene Glycol 3350 17 Gm Powd.Pack) 17 gm PO BID REPLACED BY [facility] Last Admin: 01/04/25 12:07 Dose: Not Given Pramipexole Dihydrochloride (Pramipexole Di-Hcl 0.125 Mg Tablet) 0.125 mg PO DAILY REPLACED BY [facility] Last Admin: 01/04/25 08:47 Dose: 0.125 mg Pyridoxine HCl (Pyridoxine Hcl (Vitamin B6) 50 Mg Tablet) 50 mg PO DAILY REPLACED BY [facility] Last Admin: 01/04/25 08:47 Dose: 50 mg Ropinirole HCl (Ropinirole Hcl 2 Mg Tablet) 2 mg PO DAILY@1700 REPLACED BY [facility] Last Admin: 01/03/25 16:33 Dose: 2 mg Simethicone (Simethicone 80 Mg Tab.Chew) 80 mg PO QIDWMHS REPLACED BY [facility] Last Admin: 01/04/25 12:05 Dose: 80 mg Trazodone HCl (Trazodone Hcl 50 Mg Tablet) 50 mg PO BEDTIME MRX1 PRN PRN Reason: Insomnia Last Admin: 01/01/25 20:41 Dose: 50 mg Allergies Allergies Allergy/AdvReac Type Severity Reaction Status Date / Time ampicillin Allergy Rash Verified 10/20/24 19:28 morphine Allergy Rash Verified 10/20/24 19:28 Penicillins Allergy Rash Verified 10/20/24 19:28 pork derived (porcine) Allergy Vomiting Verified 11/10/24 17:49 Assessment & Plan Assessment & Plan (1) Forehead laceration: Status: Acute Code(s): S01.81XA - Laceration without foreign body of other part of head, initial encounter Plan Mrs. Barreto is a 78 year-old woman with hx of MDD who was assessed by N at request of her son who called 911 after pt had reported suicidal ideation with plan to OD. In the ED, pt adamantly denied suicidal ideation but reports feeling increasingly more depressed due to involuntary, ongoing movement of lower extremities. She attributes her depressed mood and increase anxious mood to RLS. She has also been treated as tardive akathisia, note that she was previously prescribed abilify. It is noted that she may have iron deficiency due to normocytic anemia which can exacerbate RLS. It is unclear which medications for hyperkinetic movements of the legs are actually helpful and furthermore it is not easily to differentiate whether it is tardive akathisia or RLS. She has been on psychotropic medications that are known to cause akathisia such as abilify. She reports subjective sense of restlessness. Involuntary movement seems to be throughout the day. We will have to do trial of medications that target akathisia such as propanolol and ativan versus medications such as pramipexol for RLS (note that in RLS there is an initial relief with dopamine agonist but can make it worse over time). In addition, will try iron deficiency as it is an underlying cause and exacerbating factor in RLS. PLAN 11/14 continue tx. will monitor before making substantial changes every day. 11/15 continue tx. pt somatically preoccupied. 11/16: Continue current management and treatment plan. 11/17: continue current management and treatment plan. 11/18 start buspar 10mg po TID for SHEILA. continue all other meds. 11/19 increase buspar 20mg po TID 11/20 appears calmer, less somatically preoccupied. continue current medications. 11/21 sodium stable. continues to present as less dysphoric, calmer. reports of dizziness (VS not hotn nor orthostatic), ?vertigo, will try low dose of meclizine otherwise will consult hospitalist for further management. 8.2- pt more focused on gi issues- and anxiety/forgetfulness- continue to monitor somatic complaints- dc qid poc 11/25 will lowered ropinirole as it may increasing anxiety, noted that buspar was lowered, do not think this medication was causing fogginess as pt appeared much calmer since we added buspar. She was started on low dose clonazepam. 11/26 continue tx. received one time dose xanax, but reported feeling overly sedated (although did not appear sedated) 11/27 somatically p8/: Continue current regimen and plansreoccupied, no change in medications. 11/29 continue tx. 11/30: Continue current regimen and plans 12/01: Continue current plans and regimen 12/02 increase buspar 20mg po TID. 12/03: reports depression not improving, c/o feeling low energy and motivation, saying she needs a picker and packer. start wellbutrin XL 150 daily tomorrow for depression. also c/o anxiety-provoking and nocturnally loud peer. schedule klonopin 0.25 QHS for insomnia. otherwise continue current mgmt. awaiting placement. 12/04: slept well last night, started wellbutrin this morning without incident. continue current mgmt. will be discharging to [facility]. 12/05: slept well. c/o anxiety at 3-330 in the afternoon. pt to ask for klonopin PRN at 2-230. trend anxiety, T/C DC of wellbutrin if anxiety seems reliably increased since starting it. dispo next week likely. 12/06: anxious. schedule klonopin 0.25 mg Qdaily at 1430 per pt request. otherwise continue current mgmt. 12/07: anxious and depressed. c/o insomnia. will give wellbutrin a few more days to see if insomnia subsides and mood improves. per staf, stable and uneventful presentation. 12/08: depressed. agreeable to increase wellbutrin to 300 mg as of tomorrow. otherwise continue current mgmt. sleeping well. 12/09: started wellbutrin 300 today. c/o URI Sx, start guaifenesin. otherwise continue current mgmt. 12/10: coughin much eves/NOC per staff. pt c/o not happy, cough, and poor sleep. continue mucinex and mental health Tx plan otherwise. 12/11/24: Patient appeared to slept for 8 hours, was medication compliant but refused the MiraLax. Denies side effects. She is observed watching TV in common area. Reported that she feel anxious and depressed. She is worry about when she is leaving as she is going to stay by herself. I am depressed . Self reports that she did not sleep well last night as roommate waking her up at night telling her that she saw dogs. She reports normal stomach pain. She would hope to see the GI doctor after discharge. She reported that she will be discharged on 12/17 but not sure the name of the facility or where it is located. Denies safety concerns, denies hallucinations. No coughing observed this morning. 12/12: c/o unremitting depression, saying she does not want to live like this. interested in ECT, educated re the procedure. obtain risk strat and EKG, discuss in rounds tomorrow morning. otherwise continue current mgmt. 12/13: continues to push for ECT. seen by hospitalist, no relative contraindications to the procedure. case d/w patient's daughter chantelle as well, who avers that pt has been in this state for a long time, it's only getting worse, and medications have not been helpful. johanna supports this trial on the wishes of her mother and MD's recommendation. ECT ordered, will get pt on the schedule as soon as possible. 12/14: Cough-productive, O2 sats are lower , CXR positive. Seen by hospitalist. Antibiotics initiated, R/O pneumonia 12/15: Pt unable to tolerate doxycycline. Hospitalist will change to Ceftin. 12/16: ECT held today due to januvia and respiratory virus. mood slightly improved. plan for weds ECT. 12/17: COVID and flu NEG. c/o nausea, exacerbation of chronic condition, h/o gastroparesis. holding januvia. start reglan for gastroparesis. continue current mgmt otherwise. NPO past MN for ECT tomorrow. 12/18: awaiting med clearance for ECT. planning for ECT monday. otherwise continue current mgmt. glucose noted to be elevated since holding januvia the past several days. 12/19 continue current medications. pt hopefull will have ECT tomorrow. NPO from midnight. 12/20 continue tx. Had ECT #1 no complications noted or reported. 12/21:Continue ECT. 12/22: Increase Klonopin PRN to BID. Otherwise continue current management and treatment plan. 12/23: continue current management and treatment plan. 12/24 continue tx. ECT tomorrow, NPO after midnight. 12/25 continue tx. 12/26: ECT #3 completed today. pleasant, feeling improved. Sz duration longer than prior but remains suboptimal. will DC gabapentin and decrease PRN klonopin to 0.125 mg per dose. next ECT monday. continue current mgmt otherwise. 12/28 Patient says she is all right and no complaints other than restless leg/akathisia which she says is bothering her. Discussed ECT and patient says she wants to continue getting ECT which she thinks is helpful and is why she wants to remain inpatient. System Programmer agreed to: -order extra ropinrile 1mg daily prn 12/29Patient says she is so-so and Continues to have akathisia; patient benefitted somewhat from propranolol, which is preferable to increasing ropinirole (BP these mildly hypertensive; regular heart rate). Review of chart and patient was started on metoclopramide for diabetic gastroparesis. Discussed with patient who agrees to lowering metoclopramide; will increase propranolol and DC p.r.n. ropinirole -lower metoclopramide to 3 mg t.i.d. a.c.; (no N/V or constipation) -increase to propranolol 10 mg t.i.d. p.r.n. for restless leg -DC extra p.r.n. ropinirole 12/30: c/o restless legs. notes reviewed on the subject, plan noted. had ECT today, believes she is only having one more. anxiety Sx appear worse than prior, difficult to assess mood under the circumstances. continue current mgmt for now. 12/31: reglan DCed but still c/o RLS. requip Rx noted. ECT tomorrow. i don't feel down. NPO past MN, otherwise continue current mgmt. 01/01: stable, depression/anxiety lessened. awaiting ECT today. c/o RLS, plan to restart gabapentin after ECT course is finished. continue current mgmt otherwise. 01/02: appears more affectively flexible. reports mood OK. no somatic complaints or requests of MD. would like tomorrow's ECT, #6, to be her final of the series. continue current mgmt for now. NPO past MN. 01/04: continue, will explore whether or not to do additional ECT on Monday Patient educated on: diagnosis and ECT Informed Consent: understands Reason for continued inpatient stay Substantial Risk for: rapid decompensation Time Spent With Patient Time: Total time managing care of this patient today __15__ minutes.
[2025-01-04 16:24] LABS: Glucose, Whole Blood 125 mg/dL (60-115)
[2025-01-04 20:00] VITALS: BP 137/78; PULSE 88; RESP 17; TEMP 36.1; O2SAT 99
[2025-01-04 20:55] LABS: Glucose, Whole Blood 214 mg/dL (60-115)
[2025-01-05 06:34] LABS: Glucose, Whole Blood 242 mg/dL (60-115)
[2025-01-05 07:50] VITALS: BP 134/89; PULSE 95; RESP 18; TEMP 36.6; O2SAT 95
[2025-01-05] MEDS: Fluticasone/Vilanterol 100/25 BLST.W.DEV 1 PUFF INHALE (08:05)
[2025-01-05] MEDS: buPROPion HCl XL 300 MG TAB.ER.24H PO (08:06)
--- NOTE | 2025-01-05 10:09 | P.PNPSI_ITS ---
Subjective Subjective Date of Service: 01/05/25 Reason For Visit: SI with plan to OD on medications, increased anxie Subjective Notes: Conditional Voluntary Healthcare Proxy: No Guardianship: No Medical Problems Affecting Mental Status: No Interim History: Patient seen in the sensory room this morning. She was cooperative, calm. Denies SI/HI/AVH. Reports that her mood is better overall. She reports some mild lightheadedness, but is steady on her feet. Plans to go to groups today. There is some controversy about whether or not she is supposed to go for ECT number seven tomorrow. We discussed this and she will be NPO after midnight tonight in case she does have ECT scheduled tomorrow. Medication Compliance: Yes Side effects from medications: No Attending Groups: Yes Review of Systems Acute medical concerns: No Medical Review of Systems: unchanged Review of Systems Review of Systems Yes all other systems are reviewed and are negative Mental Status Exam Mental Status Exam Narrative: Patient Appearance: Well Groomed, adequate hygiene Patient Behavior: Appropriate Ability to Follow Directions: Excellent Level of Consciousness: Awake, alert Patient Orientation: Person, Place and Time Memory: grossly intact to recent events Psychomotor: no agitation or slowing Speech: normal rate, tone, volume Mood: ?okay? Affect: appropriate range Thought Process: Goal Oriented Thought Content: denies SI/HI; focused on treatment questions Hallucinations: Denies; does not appear preoccupied Delusions: None evinced Insight: mild impairment Judgement: Fair impulsivity: low Diagnostics Vital Signs (24Hr): Vital Signs - 24 hr 01/04/25 20:00 01/05/25 07:50 Temperature 97 F 97.8 F Pulse Rate 88 95 Respiratory Rate 17 18 Blood Pressure 137/78 134/89 Pulse Oximetry 99 95 Oxygen Delivery Method Room Air Room Air BMI result Body Mass Index 22.8 Labs 11/02/24 20:14 12/20/24 08:43 Labs: Laboratory Results - last 48 hr 01/03/25 01/03/25 01/03/25 11:07 14:34 14:57 POC Glucose 364 H* 62 82 01/03/25 01/03/25 01/03/25 15:41 16:19 21:13 POC Glucose 136 H 111 226 H 01/04/25 01/04/25 01/04/25 06:34 11:21 16:19 POC Glucose 229 H 274 H 125 H 01/04/25 01/05/25 20:51 06:25 POC Glucose 214 H 242 H Imaging Radiology Impressions: ITS Impressions Hip/Pelvis X-Ray 11/05/24 11:00 IMPRESSION: Unremarkable examination of the left hip. Electronically signed by: Sam Saini MD 11/05/2024 11:13 AM EDT RP KUB X-Ray 11/06/24 09:20 IMPRESSION: Large amount of stool throughout the colon. Electronically signed by: Sam Saini MD 11/06/2024 09:34 AM EDT RP Head CT 11/08/24 14:58 IMPRESSION: Left frontal soft tissue swelling. No acute intracranial abnormality. Electronically signed by: Sam Saini MD 11/08/2024 03:18 PM EDT RP Medications Medications Current Medications Acetaminophen (Acetaminophen 325 Mg Tablet) 650 mg PO Q6H PRN PRN Reason: Headache/Pain, Scale 1-10 Last Admin: 01/01/25 20:40 Dose: 650 mg Al Hydroxide/Mg Hydroxide (Magnesium Hydrox/Alum Hydrox 30 Ml Oral.Susp) 30 ml PO Q6H PRN PRN Reason: Heartburn/Nausea Last Admin: 12/31/24 18:46 Dose: 30 ml Albuterol Sulfate (Albuterol Sulfate (0.083%) 2.5 Mg/3 Ml Vial.Neb) 2.5 mg INHALE ONCE PRN PRN Reason: Shortness of Breath/Wheezing Last Admin: 12/16/24 07:11 Dose: 2.5 mg Albuterol Sulfate (Albuterol Sulfate 90 Mcg 8 Gm Inhaler) 4 puff INHALE Q4H PRN PRN Reason: Shortness Of Breath Or Wheezin Amlodipine Besylate (Amlodipine Besylate 2.5 Mg Tablet) 2.5 mg PO DAILY RICHARD; Protocol Last Admin: 01/05/25 08:06 Dose: 2.5 mg Atorvastatin Calcium (Atorvastatin Calcium 20 Mg Tablet) 20 mg PO DAILY RICHARD Last Admin: 01/05/25 08:06 Dose: 20 mg Bisacodyl (Bisacodyl 10 Mg Supp.Rect) 10 mg [place] BEDTIME PRN PRN Reason: Constipation Last Admin: 11/04/24 20:37 Dose: 10 mg Bupropion HCl (Bupropion Hcl Xl 300 Mg Tab.Er.24h) 300 mg PO DAILY [facility] Last Admin: 01/05/25 08:06 Dose: 300 mg Buspirone HCl (Buspirone Hcl 10 Mg Tablet) 20 mg PO TID [facility] Last Admin: 01/05/25 08:06 Dose: 20 mg Calcium Carbonate (Calcium Carbonate 750 Mg Tab.Chew) 750 mg PO Q4H PRN PRN Reason: Heartburn Last Admin: 11/30/24 21:34 Dose: 750 mg Clonazepam (Clonazepam Odt 0.125 Mg Tab.Rapdis) 0.125 mg PO BID PRN PRN Reason: severe anxiety Last Admin: 01/01/25 10:00 Dose: 0.125 mg Dicyclomine HCl (Dicyclomine Hcl 10 Mg Capsule) 10 mg PO Q4H PRN PRN Reason: abdominal cramping Last Admin: 12/17/24 13:55 Dose: 10 mg Docusate Sodium (Docusate Sodium 100 Mg Capsule) 100 mg PO BID [facility] Last Admin: 01/05/25 08:06 Dose: 100 mg Duloxetine HCl (Duloxetine Hcl 60 Mg Capsule.Dr) 60 mg PO DAILY [facility] Last Admin: 01/05/25 08:06 Dose: 60 mg Fluticasone/Vilanterol (Fluticasone/Vilanterol 100/25 Blst.W.Dev) 1 puff INHALE RDAILY [facility] Last Admin: 01/05/25 08:05 Dose: 1 puff Glipizide (Glipizide Xl 2.5 Mg Tab.Er.24) 2.5 mg PO DAILY [facility] Last Admin: 01/05/25 08:06 Dose: 2.5 mg Guaifenesin (Guaifenesin La 600 Mg Tab.Er.12h) 1,200 mg PO BID PRN PRN Reason: Cough Last Admin: 12/16/24 14:35 Dose: 1,200 mg Lactated Ringer's (Lr) 1,000 mls @ 50 mls/hr IVCONT .Q20H [facility] Insulin Human Lispro (Insulin Lispro 100 Unit/Ml 3 Ml Vial) 0 unit SUBCUT TIDAC [facility]; Protocol Last Admin: 01/05/25 07:46 Dose: 4 unit Lisinopril (Lisinopril 2.5 Mg Tablet) 2.5 mg PO DAILY [facility]; Protocol Last Admin: 01/05/25 08:06 Dose: 2.5 mg Magnesium Hydroxide (Milk Of Magnesia 30 Ml Oral.Susp) 30 ml PO DAILY PRN PRN Reason: Constipation Last Admin: 11/04/24 16:49 Dose: 30 ml Mirtazapine (Mirtazapine 30 Mg Tablet) 30 mg PO BEDTIME [facility] Last Admin: 01/04/25 21:04 Dose: 30 mg Naloxone HCl (Naloxone Hcl 0.4 Mg/Ml Vial) 0.04 mg IVPUSH Q5M PRN PRN Reason: Excessive sedation or RR < 8 Naloxone HCl (Naloxone Hcl 0.4 Mg/Ml Vial) 0.04 mg IVPUSH Q5M PRN PRN Reason: Excessive sedation or RR < 8 Omeprazole (Omeprazole 20 Mg Capsule.Dr) 20 mg PO BID@0630,1630 [facility] Last Admin: 01/05/25 06:25 Dose: 20 mg Ondansetron HCl (Ondansetron Odt 4 Mg Tab.Rapdis) 4 mg TRANSLINGU Q4H PRN PRN Reason: Nausea and Vomiting Last Admin: 01/05/25 09:31 Dose: 4 mg Polyethylene Glycol (Polyethylene Glycol 3350 17 Gm Powd.Pack) 17 gm PO BID [facility] Last Admin: 01/05/25 08:07 Dose: 17 gm Pramipexole Dihydrochloride (Pramipexole Di-Hcl 0.125 Mg Tablet) 0.125 mg PO DAILY [facility] Last Admin: 01/05/25 08:07 Dose: 0.125 mg Pyridoxine HCl (Pyridoxine Hcl (Vitamin B6) 50 Mg Tablet) 50 mg PO DAILY [facility] Last Admin: 01/05/25 08:07 Dose: 50 mg Ropinirole HCl (Ropinirole Hcl 2 Mg Tablet) 2 mg PO DAILY@1700 [facility] Last Admin: 01/04/25 17:14 Dose: 2 mg Simethicone (Simethicone 80 Mg Tab.Chew) 80 mg PO QIDWMHS [facility] Last Admin: 01/05/25 08:06 Dose: 80 mg Trazodone HCl (Trazodone Hcl 50 Mg Tablet) 50 mg PO BEDTIME MRX1 PRN PRN Reason: Insomnia Last Admin: 01/01/25 20:41 Dose: 50 mg Allergies Allergies Allergy/AdvReac Type Severity Reaction Status Date / Time ampicillin Allergy Rash Verified 10/20/24 19:28 morphine Allergy Rash Verified 10/20/24 19:28 Penicillins Allergy Rash Verified 10/20/24 19:28 pork derived (porcine) Allergy Vomiting Verified 11/10/24 17:49 Assessment & Plan Assessment & Plan (1) Forehead laceration: Status: Acute Code(s): S01.81XA - Laceration without foreign body of other part of head, initial encounter Plan Mrs. Barreto is a 78 year-old woman with hx of MDD who was assessed by N at request of her son who called 911 after pt had reported suicidal ideation with plan to OD. In the ED, pt adamantly denied suicidal ideation but reports feeling increasingly more depressed due to involuntary, ongoing movement of lower extremities. She attributes her depressed mood and increase anxious mood to RLS. She has also been treated as tardive akathisia, note that she was previously prescribed abilify. It is noted that she may have iron deficiency due to normocytic anemia which can exacerbate RLS. It is unclear which medications for hyperkinetic movements of the legs are actually helpful and furthermore it is not easily to differentiate whether it is tardive akathisia or RLS. She has been on psychotropic medications that are known to cause akathisia such as abilify. She reports subjective sense of restlessness. Involuntary movement seems to be throughout the day. We will have to do trial of medications that target akathisia such as propanolol and ativan versus medications such as pramipexol for RLS (note that in RLS there is an initial relief with dopamine agonist but can make it worse over time). In addition, will try iron deficiency as it is an underlying cause and exacerbating factor in RLS. PLAN 11/14 continue tx. will monitor before making substantial changes every day. 11/15 continue tx. pt somatically preoccupied. 11/16: Continue current management and treatment plan. 11/17: continue current management and treatment plan. 11/18 start buspar 10mg po TID for SHEILA. continue all other meds. 11/19 increase buspar 20mg po TID 11/20 appears calmer, less somatically preoccupied. continue current medications. 11/21 sodium stable. continues to present as less dysphoric, calmer. reports of dizziness (VS not hotn nor orthostatic), ?vertigo, will try low dose of meclizine otherwise will consult hospitalist for further management. 8.2- pt more focused on gi issues- and anxiety/forgetfulness- continue to monitor somatic complaints- dc qid poc 11/25 will lowered ropinirole as it may increasing anxiety, noted that buspar was lowered, do not think this medication was causing fogginess as pt appeared much calmer since we added buspar. She was started on low dose clonazepam. 11/26 continue tx. received one time dose xanax, but reported feeling overly sedated (although did not appear sedated) 11/27 somatically p8: Continue current regimen and plansreoccupied, no change in medications. 11/29 continue tx. 11/30: Continue current regimen and plans 12/01: Continue current plans and regimen 12/02 increase buspar 20mg po TID. 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 start wellbutrin XL 150 daily tomorrow for depression. also c/o anxiety-provoking and nocturnally loud peer. schedule klonopin 0.25 QHS for insomnia. otherwise continue current mgmt. awaiting placement. 12/04: slept well last night, started wellbutrin this morning without incident. continue current mgmt. will be discharging to [facility]. 12/05: slept well. c/o anxiety at 3-330 in the afternoon. pt to ask for klonopin PRN at 2-230. trend anxiety, T/C DC of wellbutrin if anxiety seems reliably increased since starting it. dispo next week likely. 12/06: anxious. schedule klonopin 0.25 mg Qdaily at 1430 per pt request. otherwise continue current mgmt. 12/07: anxious and depressed. c/o insomnia. will give wellbutrin a few more days to see if insomnia subsides and mood improves. per staf, stable and uneventful presentation. 12/08: depressed. agreeable to increase wellbutrin to 300 mg as of tomorrow. otherwise continue current mgmt. sleeping well. 12/09: started wellbutrin 300 today. c/o URI Sx, start guaifenesin. otherwise continue current mgmt. 12/10: coughin much eves/NOC per staff. pt c/o not happy, cough, and poor sleep. continue mucinex and mental health Tx plan otherwise. 12/11/24: Patient appeared to slept for 8 hours, was medication compliant but refused the MiraLax. Denies side effects. She is observed watching TV in common area. Reported that she feel anxious and depressed. She is worry about when she is leaving as she is going to stay by herself. I am depressed . Self reports that she did not sleep well last night as roommate waking her up at night telling her that she saw dogs. She reports normal stomach pain. She would hope to see the GI doctor after discharge. She reported that she will be discharged on 12/17 but not sure the name of the facility or where it is located. Denies safety concerns, denies hallucinations. No coughing observed this morning. 12/12: c/o unremitting depression, saying she does not want to live like this. interested in ECT, educated re the procedure. obtain risk strat and EKG, discuss in rounds tomorrow morning. otherwise continue current mgmt. 12/13: continues to push for ECT. seen by hospitalist, no relative contraindications to the procedure. case d/w patient's daughter chantelle as well, who avers that pt has been in this state for a long time, it's only getting worse, and medications have not been helpful. johanna supports this trial on the wishes of her mother and MD's recommendation. ECT ordered, will get pt on the schedule as soon as possible. 12/14: Cough-productive, O2 sats are lower , CXR positive. Seen by hospitalist. Antibiotics initiated, R/O pneumonia 12/15: Pt unable to tolerate doxycycline. Hospitalist will change to Ceftin. 12/16: ECT held today due to januvia and respiratory virus. mood slightly improved. plan for mons ECT. 12/17: COVID and flu NEG. c/o nausea, exacerbation of chronic condition, h/o gastroparesis. holding januvia. start reglan for gastroparesis. continue current mgmt otherwise. NPO past MN for ECT tomorrow. 12/18: awaiting med clearance for ECT. planning for ECT monday. otherwise continue current mgmt. glucose noted to be elevated since holding januvia the past several days. 12/19 continue current medications. pt hopefull will have ECT tomorrow. NPO from midnight. 12/20 continue tx. Had ECT #1 no complications noted or reported. 12/21:Continue ECT. 12/22: Increase Klonopin PRN to BID. Otherwise continue current management and treatment plan. 12/23: continue current management and treatment plan. 12/24 continue tx. ECT tomorrow, NPO after midnight. 12/25 continue tx. 12/26: ECT #3 completed today. pleasant, feeling improved. Sz duration longer than prior but remains suboptimal. will DC gabapentin and decrease PRN klonopin to 0.125 mg per dose. next ECT monday. continue current mgmt otherwise. 12/28 Patient says she is all right and no complaints other than restless leg/akathisia which she says is bothering her. Discussed ECT and patient says she wants to continue getting ECT which she thinks is helpful and is why she wants to remain inpatient. Central Office Installer agreed to: -order extra ropinrile 1mg daily prn 12/29Patient says she is so-so and Continues to have akathisia; patient benefitted somewhat from propranolol, which is preferable to increasing ropinirole (BP these mildly hypertensive; regular heart rate). Review of chart and patient was started on metoclopramide for diabetic gastroparesis. Discussed with patient who agrees to lowering metoclopramide; will increase propranolol and DC p.r.n. ropinirole -lower metoclopramide to 3 mg t.i.d. a.c.; (no N/V or constipation) -increase to propranolol 10 mg t.i.d. p.r.n. for restless leg -DC extra p.r.n. ropinirole 12/30: c/o restless legs. notes reviewed on the subject, plan noted. had ECT today, believes she is only having one more. anxiety Sx appear worse than prior, difficult to assess mood under the circumstances. continue current mgmt for now. 12/31: reglan DCed but still c/o RLS. requip Rx noted. ECT tomorrow. i don't feel down. NPO past MN, otherwise continue current mgmt. 01/01: stable, depression/anxiety lessened. awaiting ECT today. c/o RLS, plan to restart gabapentin after ECT course is finished. continue current mgmt otherwise. 01/02: appears more affectively flexible. reports mood OK. no somatic complaints or requests of MD. would like tomorrow's ECT, #6, to be her final of the series. continue current mgmt for now. NPO past MN. 01/04: continue, will explore whether or not to do additional ECT on Friday 01/05: will make NPO after midnight, patient aware - primary team may decide not to proceed with ECT tomorrow Patient educated on: diagnosis and ECT Informed Consent: understands Reason for continued inpatient stay Substantial Risk for: rapid decompensation Time Spent With Patient Time: Total time managing care of this patient today __25__ minutes.
[2025-01-05 11:24] LABS: Glucose, Whole Blood 215 mg/dL (60-115)
[2025-01-05 16:17] LABS: Glucose, Whole Blood 167 mg/dL (60-115)
[2025-01-05 19:57] VITALS: BP 161/78; PULSE 94; RESP 18; TEMP 36.5; O2SAT 98
[2025-01-05 20:15] LABS: Glucose, Whole Blood 137 mg/dL (60-115)
[2025-01-06 07:00] LABS: Glucose, Whole Blood 263 mg/dL (60-115)
[2025-01-06] MEDS: Fluticasone/Vilanterol 100/25 BLST.W.DEV 1 PUFF INHALE (08:07)
[2025-01-06 08:32] VITALS: BP 171/71; PULSE 87; RESP 18; TEMP 36.4; O2SAT 98
[2025-01-06] MEDS: buPROPion HCl XL 300 MG TAB.ER.24H PO (08:36)
[2025-01-06 11:04] LABS: Glucose, Whole Blood 194 mg/dL (60-115)
--- NOTE | 2025-01-06 11:26 | HO.PSYCHPN ---
Subjective Subjective Date of Service: 01/06/25 Reason For Visit: SI with plan to OD on medications, increased anxie Subjective Notes: Conditional Voluntary Healthcare Proxy: Yes Interim History: Patient had been feeling significantly better seems somewhat more down in preoccupied today. Complains of decreased appetite of the past 3 weeks with medications states she needs to force herself to eat. Patient more agreeable to ECT continuing. She did seem to have a significant improvement last week Medication Compliance: Yes Mental Status Exam Mental Status Exam Narrative: She is alert, pleasant and cooperative. Speech is normal. good eye contact. Affect is appropriate and contained. anxiety continues, depression much improved. No acute signs of psychosis. Cognitively impaired. Judgment is impaired impulse control intact no SI patient is preoccupied and anxious Diagnostics Vital Signs (24Hr): Vital Signs - 24 hr 01/05/25 19:57 01/06/25 08:32 Temperature 97.7 F 97.5 F Pulse Rate 94 87 Respiratory Rate 18 18 Blood Pressure 161/78 H 171/71 H Pulse Oximetry 98 98 Oxygen Delivery Method Room Air Room Air BMI result Body Mass Index 22.8 Labs 11/02/24 20:14 12/20/24 08:43 Labs: Laboratory Results - last 48 hr 01/04/25 01/04/25 01/04/25 11:21 16:19 20:51 POC Glucose 274 H 125 H 214 H 01/05/25 01/05/25 01/05/25 06:25 11:20 16:12 POC Glucose 242 H 215 H 167 H 01/05/25 01/06/25 01/06/25 20:09 06:17 11:00 POC Glucose 137 H 263 H 194 H Imaging Radiology Impressions: ITS Impressions Hip/Pelvis X-Ray 11/05/24 11:00 IMPRESSION: Unremarkable examination of the left hip. Electronically signed by: Sam Saini MD 11/05/2024 11:13 AM EDT RP KUB X-Ray 11/06/24 09:20 IMPRESSION: Large amount of stool throughout the colon. Electronically signed by: Sam Saini MD 11/06/2024 09:34 AM EDT RP Head CT 11/08/24 14:58 IMPRESSION: Left frontal soft tissue swelling. No acute intracranial abnormality. Electronically signed by: Sam Saini MD 11/08/2024 03:18 PM EDT RP Medications Medications Current Medications Acetaminophen (Acetaminophen 325 Mg Tablet) 650 mg PO Q6H PRN PRN Reason: Headache/Pain, Scale 1-10 Last Admin: 01/05/25 20:51 Dose: 650 mg Al Hydroxide/Mg Hydroxide (Magnesium Hydrox/Alum Hydrox 30 Ml Oral.Susp) 30 ml PO Q6H PRN PRN Reason: Heartburn/Nausea Last Admin: 12/31/24 18:46 Dose: 30 ml Albuterol Sulfate (Albuterol Sulfate (0.083%) 2.5 Mg/3 Ml Vial.Neb) 2.5 mg INHALE ONCE PRN PRN Reason: Shortness of Breath/Wheezing Last Admin: 12/16/24 07:11 Dose: 2.5 mg Albuterol Sulfate (Albuterol Sulfate 90 Mcg 8 Gm Inhaler) 4 puff INHALE Q4H PRN PRN Reason: Shortness Of Breath Or Wheezin Amlodipine Besylate (Amlodipine Besylate 2.5 Mg Tablet) 2.5 mg PO DAILY [facility]; Protocol Last Admin: 01/06/25 08:36 Dose: 2.5 mg Atorvastatin Calcium (Atorvastatin Calcium 20 Mg Tablet) 20 mg PO DAILY [facility] Last Admin: 01/06/25 08:36 Dose: 20 mg Bisacodyl (Bisacodyl 10 Mg Supp.Rect) 10 mg PA BEDTIME PRN PRN Reason: Constipation Last Admin: 11/04/24 20:37 Dose: 10 mg Bupropion HCl (Bupropion Hcl Xl 300 Mg Tab.Er.24h) 300 mg PO DAILY [facility] Last Admin: 01/06/25 08:36 Dose: 300 mg Buspirone HCl (Buspirone Hcl 10 Mg Tablet) 20 mg PO TID [facility] Last Admin: 01/06/25 08:36 Dose: 20 mg Calcium Carbonate (Calcium Carbonate 750 Mg Tab.Chew) 750 mg PO Q4H PRN PRN Reason: Heartburn Last Admin: 11/30/24 21:34 Dose: 750 mg Clonazepam (Clonazepam Odt 0.125 Mg Tab.Rapdis) 0.125 mg PO BID PRN PRN Reason: severe anxiety Last Admin: 01/01/25 10:00 Dose: 0.125 mg Dicyclomine HCl (Dicyclomine Hcl 10 Mg Capsule) 10 mg PO Q4H PRN PRN Reason: abdominal cramping Last Admin: 12/17/24 13:55 Dose: 10 mg Docusate Sodium (Docusate Sodium 100 Mg Capsule) 100 mg PO BID [facility] Last Admin: 01/06/25 08:36 Dose: 100 mg Duloxetine HCl (Duloxetine Hcl 60 Mg Capsule.) 60 mg PO DAILY [facility] Last Admin: 01/06/25 08:36 Dose: 60 mg Fluticasone/Vilanterol (Fluticasone/Vilanterol 100/ Blst.W.Dev) 1 puff INHALE RDAILY [facility] Last Admin: 01/06/25 08:07 Dose: 1 puff Glipizide (Glipizide Xl 2.5 Mg Tab.Er.24) 2.5 mg PO DAILY [facility] Last Admin: 01/06/25 08:36 Dose: 2.5 mg Guaifenesin (Guaifenesin La 600 Mg Tab.Er.12h) 1,200 mg PO BID PRN PRN Reason: Cough Last Admin: 12/16/24 14:35 Dose: 1,200 mg Insulin Human Lispro (Insulin Lispro 100 Unit/Ml 3 Ml Vial) 0 unit SUBCUT TIDAC [facility]; Protocol Last Admin: 01/06/25 08:02 Dose: 6 unit Lisinopril (Lisinopril 2.5 Mg Tablet) 2.5 mg PO DAILY [facility]; Protocol Last Admin: 01/06/25 08:36 Dose: 2.5 mg Magnesium Hydroxide (Milk Of Magnesia 30 Ml Oral.Susp) 30 ml PO DAILY PRN PRN Reason: Constipation Last Admin: 11/04/24 16:49 Dose: 30 ml Mirtazapine (Mirtazapine 30 Mg Tablet) 30 mg PO BEDTIME [facility] Last Admin: 01/05/25 20:52 Dose: 30 mg Naloxone HCl (Naloxone Hcl 0.4 Mg/Ml Vial) 0.04 mg IVPUSH Q5M PRN PRN Reason: Excessive sedation or RR < 8 Omeprazole (Omeprazole 20 Mg Capsule.) 20 mg PO BID@0630,1630 [facility] Last Admin: 01/06/25 06:20 Dose: 20 mg Ondansetron HCl (Ondansetron Odt 4 Mg Tab.Rapdis) 4 mg TRANSLINGU Q4H PRN PRN Reason: Nausea and Vomiting Last Admin: 01/05/25 09:31 Dose: 4 mg Polyethylene Glycol (Polyethylene Glycol 3350 17 Gm Powd.Pack) 17 gm PO BID [facility] Last Admin: 01/06/25 08:37 Dose: Not Given Pramipexole Dihydrochloride (Pramipexole Di-Hcl 0.125 Mg Tablet) 0.125 mg PO DAILY [facility] Last Admin: 01/06/25 08:36 Dose: 0.125 mg Pyridoxine HCl (Pyridoxine Hcl (Vitamin B6) 50 Mg Tablet) 50 mg PO DAILY [facility] Last Admin: 01/06/25 08:36 Dose: 50 mg Ropinirole HCl (Ropinirole Hcl 2 Mg Tablet) 2 mg PO DAILY@1700 [facility] Last Admin: 01/05/25 16:24 Dose: 2 mg Simethicone (Simethicone 80 Mg Tab.Chew) 80 mg PO QIDWMHS [facility] Last Admin: 01/06/25 08:36 Dose: 80 mg Trazodone HCl (Trazodone Hcl 50 Mg Tablet) 50 mg PO BEDTIME MRX1 PRN PRN Reason: Insomnia Last Admin: 01/01/25 20:41 Dose: 50 mg Allergies Allergies Allergy/AdvReac Type Severity Reaction Status Date / Time ampicillin Allergy Rash Verified 10/20/24 19:28 morphine Allergy Rash Verified 10/20/24 19:28 Penicillins Allergy Rash Verified 10/20/24 19:28 pork derived (porcine) Allergy Vomiting Verified 11/10/24 17:49 Assessment & Plan Assessment & Plan (1) MDD (major depressive disorder), recurrent episode, moderate: Status: Acute Code(s): F33.1 - Major depressive disorder, recurrent, moderate (2) SHEILA (generalized anxiety disorder): Status: Acute Code(s): F41.1 - Generalized anxiety disorder (3) Forehead laceration: Status: Acute Code(s): S01.81XA - Laceration without foreign body of other part of head, initial encounter Plan Anxiety with suicidal ideation Plan per Psychiatry Undergoing ECT treatments Type 2 diabetes Continue with glipizide and SS Recent A1c 7.2, acceptable range for her age. We will add sliding scale insulin to improve glucose control, to help with symptoms of gastroparesis Avoid hypoglycemia, sugars 200-300 acceptable. Chronic abdominal plain/gastroparesis, chronic mild gastritis, history of diverticulosis Patient is at [facility], she has had Botox injections in the past last in March 2024 Patient had a recent upper endoscopy negative for H pylori or any abnormalities Continues on duloxetine, may help with chronic pain. Continues with omeprazole twice daily Avoid constipation. Avoid opiates and anticholinergics Restless leg syndrome Patient continues on gabapentin and Mirapex twice daily Hypertension/hyperlipidemia Continue atorvastatin, lisinopril, and amlodipine Blood pressure stable Thank you for allowing me to participate in the care of this patient. Will follow as needed. Please reconsult of any acute concerns or issues arise 01/03/2025 ECT held on 6. Consider restart if needed patient does appear open to this. Continue Wellbutrin and Cymbalta 01/06/2025 Low Wellbutrin to 150 mg secondary to anxiety and decreased appetite. restart ECT patient agreeable for better control and durability of symptoms Reason for continued inpatient stay Substantial Risk for: inability to function and rapid decompensation Time Spent With Patient Time: Total time managing care of this patient today ____ minutes.
[2025-01-06 16:25] LABS: Glucose, Whole Blood 106 mg/dL (60-115)
[2025-01-06 20:00] VITALS: BP 119/66; PULSE 91; RESP 16; TEMP 36.4; O2SAT 98
[2025-01-06 21:25] LABS: Glucose, Whole Blood 227 mg/dL (60-115)
[2025-01-07 06:30] LABS: Glucose, Whole Blood 223 mg/dL (60-115)
[2025-01-07 08:00] VITALS: BP 147/73; PULSE 97; RESP 16; TEMP 35.6; O2SAT 97
[2025-01-07] MEDS: Fluticasone/Vilanterol 100/25 BLST.W.DEV 1 PUFF INHALE (09:47)
[2025-01-07 11:33] LABS: Glucose, Whole Blood 300 mg/dL (60-115)
--- NOTE | 2025-01-07 14:42 | P.PNPSI_ITS ---
Subjective Subjective Date of Service: 01/07/25 Reason For Visit: SI with plan to OD on medications, increased anxie Interim History: anxious, tense. c/o RLS Sx, asking for increased regimen in the morning. also reports Dr. Min was discussing starting a new medication for her in order to try to improve her appetite. reporting low appetite for about the past week. wants to do 2 more ECTs, weds and fri. Mental Status Exam Mental Status Exam Narrative: She is alert, pleasant and cooperative. Speech is normal. good eye contact. Affect is appropriate and contained. anxiety continues, depression much improved. No acute signs of psychosis. Cognitively impaired. Judgment is impaired Diagnostics Vital Signs (24Hr): Vital Signs - 24 hr 01/06/25 20:00 01/07/25 08:00 Temperature 97.6 F 96.1 F L Pulse Rate 91 97 Respiratory Rate 16 16 Blood Pressure 119/66 147/73 H Pulse Oximetry 98 97 Oxygen Delivery Method Room Air Room Air BMI result Body Mass Index 22.8 Labs 11/02/24 20:14 12/20/24 08:43 Labs: Laboratory Results - last 48 hr 01/05/25 01/05/25 01/06/25 16:12 20:09 06:17 POC Glucose 167 H 137 H 263 H 01/06/25 01/06/25 01/06/25 11:00 16:22 21:22 POC Glucose 194 H 106 227 H 01/07/25 01/07/25 06:25 11:28 POC Glucose 223 H 300 H Imaging Radiology Impressions: ITS Impressions Hip/Pelvis X-Ray 11/05/24 11:00 IMPRESSION: Unremarkable examination of the left hip. Electronically signed by: Sam Saini MD 11/05/2024 11:13 AM EDT RP KUB X-Ray 11/06/24 09:20 IMPRESSION: Large amount of stool throughout the colon. Electronically signed by: Sam Saini MD 11/06/2024 09:34 AM EDT RP Head CT 11/08/24 14:58 IMPRESSION: Left frontal soft tissue swelling. No acute intracranial abnormality. Electronically signed by: Sam Saini MD 11/08/2024 03:18 PM EDT RP Medications Medications Current Medications Acetaminophen (Acetaminophen 325 Mg Tablet) 650 mg PO Q6H PRN PRN Reason: Headache/Pain, Scale 1-10 Last Admin: 01/06/25 20:46 Dose: 650 mg Al Hydroxide/Mg Hydroxide (Magnesium Hydrox/Alum Hydrox 30 Ml Oral.Susp) 30 ml PO Q6H PRN PRN Reason: Heartburn/Nausea Last Admin: 12/31/24 18:46 Dose: 30 ml Albuterol Sulfate (Albuterol Sulfate (0.083%) 2.5 Mg/3 Ml Vial.Neb) 2.5 mg INHALE ONCE PRN PRN Reason: Shortness of Breath/Wheezing Last Admin: 12/16/24 07:11 Dose: 2.5 mg Albuterol Sulfate (Albuterol Sulfate 90 Mcg 8 Gm Inhaler) 4 puff INHALE Q4H PRN PRN Reason: Shortness Of Breath Or Wheezin Amlodipine Besylate (Amlodipine Besylate 2.5 Mg Tablet) 2.5 mg PO DAILY [facility]; Protocol Last Admin: 01/07/25 10:32 Dose: 2.5 mg Atorvastatin Calcium (Atorvastatin Calcium 20 Mg Tablet) 20 mg PO DAILY [facility] Last Admin: 01/07/25 10:31 Dose: 20 mg Bisacodyl (Bisacodyl 10 Mg Supp.Rect) 10 mg AK BEDTIME PRN PRN Reason: Constipation Last Admin: 11/04/24 20:37 Dose: 10 mg Bupropion HCl (Bupropion Hcl Xl 150 Mg Tab.Er.24h) 150 mg PO DAILY [facility] Buspirone HCl (Buspirone Hcl 10 Mg Tablet) 20 mg PO TID [facility] Last Admin: 01/07/25 10:33 Dose: 20 mg Calcium Carbonate (Calcium Carbonate 750 Mg Tab.Chew) 750 mg PO Q4H PRN PRN Reason: Heartburn Last Admin: 11/30/24 21:34 Dose: 750 mg Clonazepam (Clonazepam Odt 0.125 Mg Tab.Rapdis) 0.125 mg PO BID PRN PRN Reason: severe anxiety Last Admin: 01/01/25 10:00 Dose: 0.125 mg Dicyclomine HCl (Dicyclomine Hcl 10 Mg Capsule) 10 mg PO Q4H PRN PRN Reason: abdominal cramping Last Admin: 12/17/24 13:55 Dose: 10 mg Docusate Sodium (Docusate Sodium 100 Mg Capsule) 100 mg PO BID [facility] Last Admin: 01/07/25 10:32 Dose: 100 mg Duloxetine HCl (Duloxetine Hcl 60 Mg Capsule.Dr) 60 mg PO DAILY [facility] Last Admin: 01/07/25 10:34 Dose: 60 mg Fluticasone/Vilanterol (Fluticasone/Vilanterol 100/25 Blst.W.Dev) 1 puff INHALE RDAILY [facility] Last Admin: 01/07/25 09:47 Dose: 1 puff Glipizide (Glipizide Xl 2.5 Mg Tab.Er.24) 2.5 mg PO DAILY [facility] Last Admin: 01/07/25 10:33 Dose: 2.5 mg Guaifenesin (Guaifenesin La 600 Mg Tab.Er.12h) 1,200 mg PO BID PRN PRN Reason: Cough Last Admin: 12/16/24 14:35 Dose: 1,200 mg Insulin Human Lispro (Insulin Lispro 100 Unit/Ml 3 Ml Vial) 0 unit SUBCUT TIDAC [facility]; Protocol Last Admin: 01/07/25 12:09 Dose: 6 unit Lisinopril (Lisinopril 2.5 Mg Tablet) 2.5 mg PO DAILY [facility]; Protocol Last Admin: 01/07/25 10:31 Dose: 2.5 mg Magnesium Hydroxide (Milk Of Magnesia 30 Ml Oral.Susp) 30 ml PO DAILY PRN PRN Reason: Constipation Last Admin: 11/04/24 16:49 Dose: 30 ml Mirtazapine (Mirtazapine 30 Mg Tablet) 30 mg PO BEDTIME [facility] Last Admin: 01/06/25 20:47 Dose: 30 mg Naloxone HCl (Naloxone Hcl 0.4 Mg/Ml Vial) 0.04 mg IVPUSH Q5M PRN PRN Reason: Excessive sedation or RR < 8 Omeprazole (Omeprazole 20 Mg Capsule.Dr) 20 mg PO BID@0630,1630 [facility] Last Admin: 01/07/25 06:23 Dose: 20 mg Ondansetron HCl (Ondansetron Odt 4 Mg Tab.Rapdis) 4 mg TRANSLINGU Q4H PRN PRN Reason: Nausea and Vomiting Last Admin: 01/07/25 09:47 Dose: 4 mg Polyethylene Glycol (Polyethylene Glycol 3350 17 Gm Powd.Pack) 17 gm PO BID [facility] Last Admin: 01/07/25 10:42 Dose: Not Given Pyridoxine HCl (Pyridoxine Hcl (Vitamin B6) 50 Mg Tablet) 50 mg PO DAILY [facility] Last Admin: 01/07/25 10:32 Dose: 50 mg Ropinirole HCl (Ropinirole Hcl 2 Mg Tablet) 2 mg PO DAILY@1700 [facility] Last Admin: 01/06/25 16:16 Dose: 2 mg Ropinirole HCl (Ropinirole Hcl 0.5 Mg Tablet) 0.5 mg PO DAILY [facility] Simethicone (Simethicone 80 Mg Tab.Chew) 80 mg PO QIDWMHS [facility] Last Admin: 01/07/25 12:09 Dose: 80 mg Trazodone HCl (Trazodone Hcl 50 Mg Tablet) 50 mg PO BEDTIME MRX1 PRN PRN Reason: Insomnia Last Admin: 01/06/25 20:47 Dose: 50 mg Allergies Allergies Allergy/AdvReac Type Severity Reaction Status Date / Time ampicillin Allergy Rash Verified 10/20/24 19:28 morphine Allergy Rash Verified 10/20/24 19:28 Penicillins Allergy Rash Verified 10/20/24 19:28 pork derived (porcine) Allergy Vomiting Verified 11/10/24 17:49 Assessment & Plan Assessment & Plan (1) Forehead laceration: Status: Acute Code(s): S01.81XA - Laceration without foreign body of other part of head, initial encounter (2) Anxiety: Status: Acute Code(s): F41.9 - Anxiety disorder, unspecified (3) MDD (major depressive disorder), recurrent episode, moderate: Status: Acute Code(s): F33.1 - Major depressive disorder, recurrent, moderate (4) SHEILA (generalized anxiety disorder): Status: Acute Code(s): F41.1 - Generalized anxiety disorder (5) Diabetes: Status: Acute Code(s): E11.9 - Type 2 diabetes mellitus without complications (6) Gastroparesis: Status: Acute Code(s): K31.84 - Gastroparesis (7) 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 Barreto is a 78 year-old woman with hx of MDD who was assessed by N at request of her son who called 911 after pt had reported suicidal ideation with plan to OD. In the ED, pt adamantly denied suicidal ideation but reports feeling increasingly more depressed due to involuntary, ongoing movement of lower extremities. She attributes her depressed mood and increase anxious mood to RLS. She has also been treated as tardive akathisia, note that she was previously prescribed abilify. It is noted that she may have iron deficiency due to normocytic anemia which can exacerbate RLS. It is unclear which medications for hyperkinetic movements of the legs are actually helpful and furthermore it is not easily to differentiate whether it is tardive akathisia or RLS. She has been on psychotropic medications that are known to cause akathisia such as abilify. She reports subjective sense of restlessness. Involuntary movement seems to be throughout the day. We will have to do trial of medications that target akathisia such as propanolol and ativan versus medications such as pramipexol for RLS (note that in RLS there is an initial relief with dopamine agonist but can make it worse over time). In addition, will try iron deficiency as it is an underlying cause and exacerbating factor in RLS. PLAN 11/14 continue tx. will monitor before making substantial changes every day. 11/15 continue tx. pt somatically preoccupied. 11/16: Continue current management and treatment plan. 11/17: continue current management and treatment plan. 11/18 start buspar 10mg po TID for SHEILA. continue all other meds. 11/19 increase buspar 20mg po TID 11/20 appears calmer, less somatically preoccupied. continue current medications. 11/21 sodium stable. continues to present as less dysphoric, calmer. reports of dizziness (VS not hotn nor orthostatic), ?vertigo, will try low dose of meclizine otherwise will consult hospitalist for further management. 8.2- pt more focused on gi issues- and anxiety/forgetfulness- continue to monitor somatic complaints- dc qid poc 11/25 will lowered ropinirole as it may increasing anxiety, noted that buspar was lowered, do not think this medication was causing fogginess as pt appeared much calmer since we added buspar. She was started on low dose clonazepam. 11/26 continue tx. received one time dose xanax, but reported feeling overly sedated (although did not appear sedated) 11/27 somatically p8/: Continue current regimen and plansreoccupied, no change in medications. 11/29 continue tx. 11/30: Continue current regimen and plans 12/01: Continue current plans and regimen 12/02 increase buspar 20mg po TID. 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 start wellbutrin XL 150 daily tomorrow for depression. also c/o anxiety-provoking and nocturnally loud peer. schedule klonopin 0.25 QHS for insomnia. otherwise continue current mgmt. awaiting placement. 12/04: slept well last night, started wellbutrin this morning without incident. continue current mgmt. will be discharging to [facility]. 12/05: slept well. c/o anxiety at 3-330 in the afternoon. pt to ask for klonopin PRN at 2-230. trend anxiety, T/C DC of wellbutrin if anxiety seems reliably increased since starting it. dispo next week likely. 12/06: anxious. schedule klonopin 0.25 mg Qdaily at 1430 per pt request. otherwise continue current mgmt. 12/07: anxious and depressed. c/o insomnia. will give wellbutrin a few more days to see if insomnia subsides and mood improves. per staf, stable and uneventful presentation. 12/08: depressed. agreeable to increase wellbutrin to 300 mg as of tomorrow. otherwise continue current mgmt. sleeping well. 12/09: started wellbutrin 300 today. c/o URI Sx, start guaifenesin. otherwise continue current mgmt. 12/10: coughin much eves/NOC per staff. pt c/o not happy, cough, and poor sleep. continue mucinex and mental health Tx plan otherwise. 12/11/24: Patient appeared to slept for 8 hours, was medication compliant but refused the MiraLax. Denies side effects. She is observed watching TV in common area. Reported that she feel anxious and depressed. She is worry about when she is leaving as she is going to stay by herself. I am depressed . Self reports that she did not sleep well last night as roommate waking her up at night telling her that she saw dogs. She reports normal stomach pain. She would hope to see the GI doctor after discharge. She reported that she will be discharged on 12/17 but not sure the name of the facility or where it is located. Denies safety concerns, denies hallucinations. No coughing observed this morning. 12/12: c/o unremitting depression, saying she does not want to live like this. interested in ECT, educated re the procedure. obtain risk strat and EKG, discuss in rounds tomorrow morning. otherwise continue current mgmt. 12/13: continues to push for ECT. seen by hospitalist, no relative contraindications to the procedure. case d/w patient's daughter chantelle as well, who avers that pt has been in this state for a long time, it's only getting worse, and medications have not been helpful. johanna supports this trial on the wishes of her mother and MD's recommendation. ECT ordered, will get pt on the schedule as soon as possible. 12/14: Cough-productive, O2 sats are lower , CXR positive. Seen by hospitalist. Antibiotics initiated, R/O pneumonia 12/15: Pt unable to tolerate doxycycline. Hospitalist will change to Ceftin. 12/16: ECT held today due to januvia and respiratory virus. mood slightly improved. plan for weds ECT. 12/17: COVID and flu NEG. c/o nausea, exacerbation of chronic condition, h/o gastroparesis. holding januvia. start reglan for gastroparesis. continue current mgmt otherwise. NPO past MN for ECT tomorrow. 12/18: awaiting med clearance for ECT. planning for ECT monday. otherwise continue current mgmt. glucose noted to be elevated since holding januvia the past several days. 12/19 continue current medications. pt hopefull will have ECT tomorrow. NPO from midnight. 12/20 continue tx. Had ECT #1 no complications noted or reported. 12/21:Continue ECT. 12/22: Increase Klonopin PRN to BID. Otherwise continue current management and treatment plan. 12/23: continue current management and treatment plan. 12/24 continue tx. ECT tomorrow, NPO after midnight. 12/25 continue tx. 12/26: ECT #3 completed today. pleasant, feeling improved. Sz duration longer than prior but remains suboptimal. will DC gabapentin and decrease PRN klonopin to 0.125 mg per dose. next ECT monday. continue current mgmt otherwise. 12/28 Patient says she is all right and no complaints other than restless leg/akathisia which she says is bothering her. Discussed ECT and patient says she wants to continue getting ECT which she thinks is helpful and is why she wants to remain inpatient. Information Technology Consultant agreed to: -order extra ropinrile 1mg daily prn 12/29Patient says she is so-so and Continues to have akathisia; patient benefitted somewhat from propranolol, which is preferable to increasing ropinirole (BP these mildly hypertensive; regular heart rate). Review of chart and patient was started on metoclopramide for diabetic gastroparesis. Discussed with patient who agrees to lowering metoclopramide; will increase propranolol and DC p.r.n. ropinirole -lower metoclopramide to 3 mg t.i.d. a.c.; (no N/V or constipation) -increase to propranolol 10 mg t.i.d. p.r.n. for restless leg -DC extra p.r.n. ropinirole 12/30: c/o restless legs. notes reviewed on the subject, plan noted. had ECT today, believes she is only having one more. anxiety Sx appear worse than prior, difficult to assess mood under the circumstances. continue current mgmt for now. 12/31: reglan DCed but still c/o RLS. requip Rx noted. ECT tomorrow. i don't feel down. NPO past MN, otherwise continue current mgmt. 01/01: stable, depression/anxiety lessened. awaiting ECT today. c/o RLS, plan to restart gabapentin after ECT course is finished. continue current mgmt otherwise. 01/02: appears more affectively flexible. reports mood OK. no somatic complaints or requests of MD. would like tomorrow's ECT, #6, to be her final of the series. continue current mgmt for now. NPO past MN. 01/04: continue, will explore whether or not to do additional ECT on Friday 01/05: will make NPO after midnight, patient aware - primary team may decide not to proceed with ECT tomorrow 01/07: DC pramipexole in the morning, substitute with ropinirole, which pt also taking in substantial amount eves. 2 more ECTs, then planning to discharge 01/14. T/C maintenance ECT. decrease in wellbutrin noted, pt c/o poor appetite. Reason for continued inpatient stay Substantial Risk for: inability to function and rapid decompensation Time Spent With Patient Time: Total time managing care of this patient today _25___ minutes.
[2025-01-07] MEDS: Magnesium Hydrox/Alum Hydrox 30 ML ORAL.SUSP PO ×2 (15:11→20:20)
[2025-01-07 16:11] LABS: Glucose, Whole Blood 151 mg/dL (60-115)
[2025-01-07 20:00] VITALS: BP 136/79; PULSE 82; RESP 17; TEMP 36.2; O2SAT 99
[2025-01-07 20:18] LABS: Glucose, Whole Blood 156 mg/dL (60-115)
[2025-01-08] VITALS (12 sets, daily range): BP systolic 126–191; BP diastolic 63–96; PULSE 76–89; RESP 16–20; TEMP 36.1–36.8; O2SAT 94–100
[2025-01-08 06:09] LABS: Glucose, Whole Blood 184 mg/dL (60-115)
[2025-01-08] MEDS: Lactated Ringers 1,000 ML 50 ML IVCONT (06:45)
--- NOTE | 2025-01-08 06:48 | MHC.SHP ---
Pre-Procedural Eval Section A - 24 Hr Update-Section A only Date of Service: 01/08/25 The patient is an INPATIENT: Yes Changes since office visit: Yes Patient answered all questions; No Cold of Flu in the past 2 weeks, No New Medical Problems and No Changes in Medication The patient has been examined within 24 hours of the surgical procedure. The History & Physical has been completed within 30 days and I have reviewed it.: Yes Section B - Complete if H&P > 30 days Chief Complaint: SI with plan to OD on medications, increased anxie Allergies: Allergies Allergy/AdvReac Type Severity Reaction Status Date / Time ampicillin Allergy Rash Verified 10/20/24 19:28 morphine Allergy Rash Verified 10/20/24 19:28 Penicillins Allergy Rash Verified 10/20/24 19:28 pork derived (porcine) Allergy Vomiting Verified 11/10/24 17:49 Plan Diagnosis/Plan: Unchanged I have reviewed the history and physical and performed a pertinent physical examination on my patient. No changes have occurred unless specified. Time Spent With Patient Time: Total time managing care of this patient today __30__ minutes.
--- NOTE | 2025-01-08 06:56 | P.CONAN_ITS ---
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 (Acute) Hyponatremia (Acute) Fall (Acute) Constipation (Acute) Forehead laceration (Acute) Diabetes (Acute) RLS (restless legs syndrome) (Acute) MDD (major depressive disorder), recurrent episode, moderate (Acute) Gastroparesis (Acute) Anxiety (Acute) Past Medical History Medical History Tension headache Peripheral neuropathy Akathisia Cerebral microvascular disease RLS (restless legs syndrome) Migraines Diabetes Hypertension Anxiety Functional capacity: independent ambulation Family History Family history of problems with anesthesia: No Surgical History History of Problems with Anesthesia: No Social History Social History Household Members: None Housing: House Do you presently have visiting nurse or other home services: Yes Patient Tobacco Use Status: Never used Tobacco Currently Displaying Signs/Symptoms of Drug Intoxication Withdrawal: No Have you been hit, kicked, punched, or otherwise hurt by someone within the past year? If so, by whom?: No Do you feel safe in your current relationship?: No Current Relationship Is there a partner from a previous relationship who is making you feel unsafe now?: No Are you made to feel afraid or neglected: No Spiritual Healthcare Practices: meditation and breathing Advance Directives: No Advance Directives Information Provided: No Do you have thoughts of harming others: None Do you have a plan to hurt others: No Plan Recently lost weight without trying: No Eating poorly because of decreased appetite: No Nutrition Risks: No Nutritional Risk Patient : No : No Poor oral hygiene: No service: No Sexual orientation: Straight/Heterosexual Meds Allergies Allergy/AdvReac Type Severity Reaction Status Date / Time ampicillin Allergy Rash Verified 10/20/24 19:28 morphine Allergy Rash Verified 10/20/24 19:28 Penicillins Allergy Rash Verified 10/20/24 19:28 pork derived (porcine) Allergy Vomiting Verified 11/10/24 17:49 Active Medications: Current Medications Acetaminophen (Acetaminophen 325 Mg Tablet) 650 mg PO Q6H PRN PRN Reason: Headache/Pain, Scale 1-10 Last Admin: 01/07/25 20:19 Dose: 650 mg Al Hydroxide/Mg Hydroxide (Magnesium Hydrox/Alum Hydrox 30 Ml Oral.Susp) 30 ml PO Q6H PRN PRN Reason: Heartburn/Nausea Last Admin: 01/07/25 20:20 Dose: 30 ml Albuterol Sulfate (Albuterol Sulfate (0.083%) 2.5 Mg/3 Ml Vial.Neb) 2.5 mg INHALE ONCE PRN PRN Reason: Shortness of Breath/Wheezing Last Admin: 12/16/24 07:11 Dose: 2.5 mg Albuterol Sulfate (Albuterol Sulfate 90 Mcg 8 Gm Inhaler) 4 puff INHALE Q4H PRN PRN Reason: Shortness Of Breath Or Wheezin Amlodipine Besylate (Amlodipine Besylate 2.5 Mg Tablet) 2.5 mg PO DAILY FORMERLY [facility], [facility]; Protocol Last Admin: 01/07/25 10:32 Dose: 2.5 mg Atorvastatin Calcium (Atorvastatin Calcium 20 Mg Tablet) 20 mg PO DAILY FORMERLY [facility], [facility]–1983 Last Admin: 01/07/25 10:31 Dose: 20 mg Bisacodyl (Bisacodyl 10 Mg Supp.Rect) 10 mg NE BEDTIME PRN PRN Reason: Constipation Last Admin: 11/04/24 20:37 Dose: 10 mg Bupropion HCl (Bupropion Hcl Xl 150 Mg Tab.Er.24h) 150 mg PO DAILY FOR[facility], [facility]–1983 Buspirone HCl (Buspirone Hcl 10 Mg Tablet) 20 mg PO TID FORMERLY [facility], [facility]1983 Last Admin: 01/07/25 20:19 Dose: 20 mg Calcium Carbonate (Calcium Carbonate 750 Mg Tab.Chew) 750 mg PO Q4H PRN PRN Reason: Heartburn Last Admin: 11/30/24 21:34 Dose: 750 mg Clonazepam (Clonazepam Odt 0.125 Mg Tab.Rapdis) 0.125 mg PO BID PRN PRN Reason: severe anxiety Last Admin: 01/01/25 10:00 Dose: 0.125 mg Dicyclomine HCl (Dicyclomine Hcl 10 Mg Capsule) 10 mg PO Q4H PRN PRN Reason: abdominal cramping Last Admin: 12/17/24 13:55 Dose: 10 mg Docusate Sodium (Docusate Sodium 100 Mg Capsule) 100 mg PO BID FOR[facility], [facility]1983 Last Admin: 01/07/25 20:25 Dose: 100 mg Duloxetine HCl (Duloxetine Hcl 60 Mg Capsule.Dr) 60 mg PO DAILY [facility], [facility] Last Admin: 01/07/25 10:34 Dose: 60 mg Fluticasone/Vilanterol (Fluticasone/Vilanterol 100/25 Blst.W.Dev) 1 puff INHALE RDAILY [facility], [facility]–1983 Last Admin: 01/07/25 09:47 Dose: 1 puff Glipizide (Glipizide Xl 2.5 Mg Tab.Er.24) 2.5 mg PO DAILY [facility], [facility] Last Admin: 01/07/25 10:33 Dose: 2.5 mg Guaifenesin (Guaifenesin La 600 Mg Tab.Er.12h) 1,200 mg PO BID PRN PRN Reason: Cough Last Admin: 12/16/24 14:35 Dose: 1,200 mg Insulin Human Lispro (Insulin Lispro 100 Unit/Ml 3 Ml Vial) 0 unit SUBCUT TIDAC FOR[facility]LY [facility], [facility]; Protocol Last Admin: 01/07/25 16:34 Dose: 2 unit Lisinopril (Lisinopril 2.5 Mg Tablet) 2.5 mg PO DAILY [facility], [facility]–1983; Protocol Last Admin: 01/07/25 10:31 Dose: 2.5 mg Magnesium Hydroxide (Milk Of Magnesia 30 Ml Oral.Susp) 30 ml PO DAILY PRN PRN Reason: Constipation Last Admin: 11/04/24 16:49 Dose: 30 ml Mirtazapine (Mirtazapine 30 Mg Tablet) 30 mg PO BEDTIME [facility], [facility] Last Admin: 01/07/25 20:19 Dose: 30 mg Naloxone HCl (Naloxone Hcl 0.4 Mg/Ml Vial) 0.04 mg IVPUSH Q5M PRN PRN Reason: Excessive sedation or RR < 8 Omeprazole (Omeprazole 20 Mg Capsule.) 20 mg PO BID@0630,1630 FOR[facility], [facility]–1983 Last Admin: 01/08/25 05:37 Dose: Not Given Ondansetron HCl (Ondansetron Odt 4 Mg Tab.Rapdis) 4 mg TRANSLINGU Q4H PRN PRN Reason: Nausea and Vomiting Last Admin: 01/07/25 20:19 Dose: 4 mg Polyethylene Glycol (Polyethylene Glycol 3350 17 Gm Powd.Pack) 17 gm PO BID [facility], [facility]1983 Last Admin: 01/07/25 21:09 Dose: Not Given Pyridoxine HCl (Pyridoxine Hcl (Vitamin B6) 50 Mg Tablet) 50 mg PO DAILY [facility], [facility]1983 Last Admin: 01/07/25 10:32 Dose: 50 mg Ropinirole HCl (Ropinirole Hcl 2 Mg Tablet) 2 mg PO DAILY@1700 FOR[facility], [facility]–1983 Last Admin: 01/07/25 16:34 Dose: 2 mg Ropinirole HCl (Ropinirole Hcl 0.5 Mg Tablet) 0.5 mg PO DAILY [facility], [facility] Simethicone (Simethicone 80 Mg Tab.Chew) 80 mg PO QIDWMHS FOR[facility]LY [facility], [facility] Last Admin: 01/07/25 21:10 Dose: Not Given Trazodone HCl (Trazodone Hcl 50 Mg Tablet) 50 mg PO BEDTIME MRX1 PRN PRN Reason: Insomnia Last Admin: 01/06/25 20:47 Dose: 50 mg Home Medications ?Medication ?Instructions ?Recorded ?Confirmed ?Last Taken ?Type atorvastatin 20 mg tablet 20 mg PO DAILY 04/01/2309/2403/31/23 21:00 History ondansetron HCl 4 mg tablet 4 mg PO Q8H PRN nausea 01/1410/21/24 03/31/23 21:00 History pantoprazole 40 mg tablet,delayed 40 mg PO BID@0630,16 30 04/01/23 10/21/24 03/31/23 21:00 History release sitagliptin phosphate 100 mg 100 mg PO DAILY 04/01/23 10/21/24 03/31/23 21:00 History tablet (Januvia) albuterol sulfate 90 mcg/actuation 2 puff inhalation Q 4-6H PRN 10/21/24 10/21/24 Unknown History aerosol inhaler Shortness Of Breath Or Wheez ing amlodipine 2.5 mg tablet 2.5 mg PO DAILY 10/21/24 Unknown History duloxetine 20 mg capsule,delayed 40 mg PO DAILY 10/21/24 Unknown History release fluticasone furoate 100 1 ea inhalation DAILY 10/21/24 Unknown History mcg-vilanterol 25 mcg/dose inhalation powder (Breo Ellipta) gabapentin 100 mg capsule 100 mg PO TID 10/21/2410/21 Unknown History gabapentin 600 mg tablet 600 mg PO BEDTIME 10/21/24 0 10/21/24 Unknown History glipizide 2.5 mg tablet, extended 2.5 mg PO DAILY 09/2410/21/24 Unknown History release 24 hr lamotrigine 100 mg tablet 100 mg PO DAILY 10/21/24 Unknown History lisinopril 20 mg tablet 20 mg PO DAILY 10/21/2409/24 Unknown History lorazepam 0.5 mg tablet 0.25 mg PO BID 10/21/2409/24 Unknown History mirtazapine 45 mg tablet 45 mg PO BEDTIME 10/21/24 Unknown History olanzapine 2.5 mg tablet 2.5 mg PO BEDTIME 10/21/24 0 10/21/24 Unknown History pramipexole 0.25 mg tablet 0.25 mg PO BID 10/21/24 Unknown History propranolol 20 mg tablet 20 mg PO DAILY 10/21/2409/24 Unknown History Exam Height,Weight and Vital Signs: Height 4 ft 10 in Weight 49.442 kg Last Vital Signs Temp 97.7 F 01/08/25 06:36 Pulse 83 01/08/25 06:36 Resp 18 01/08/25 06:36 BP 135/73 01/08/25 06:36 Pulse Ox 94 01/08/25 06:36 O2 Del Method Room Air 01/08/25 06:36 O2 Flow Rate 2 01/03/25 07:55 Pertinent Lab Results Pertinent Lab Results: Laboratory Tests 10/20/24 10/20/24 10/22/24 19:59 21:45 07:23 WBC 7.6 RBC 3.65 L Hgb 10.8 L Hct 31.3 L MCV 85.8 MCH 29.6 MCHC 34.5 RDW 13.6 Plt Count 213 MPV 8.7 L Immature Gran % (Auto) 0.3 Neut % (Auto) 58.4 Lymph % (Auto) 29.8 [place] % (Auto) 9.9 Eos % (Auto) 1.1 Baso % (Auto) 0.5 Lymph # (Auto) 2.3 [place] # (Auto) 0.8 Eos # (Auto) 0.1 Baso # (Auto) 0.0 Abs Immat Gran (auto) 0.02 Absolute Neuts (auto) 4.4 Absolute Nucleated RBC 0.000 Nucleated RBC % (auto) 0.0 Smear Tech's Comments Hold Purple Top VBG pH VBG pCO2 VBG pO2 VBG HCO3 VBG O2 Saturation VBG Base Excess Sodium 140 142 Potassium 4.2 4.6 Chloride 108 108 Carbon Dioxide 23 23 Anion Gap 13 16 BUN 33 H 22 H Creatinine 1.15 1.09 Estim Creat Clear Calc 26.9 30.7 Estimated GFR 46 49 POC Glucose Random Glucose 96 204 H Estimat Average Glucose 160 Hemoglobin A1c % 7.2 H Osmolality Lactic Acid Calcium 9.3 9.6 Magnesium Iron TIBC % Saturation Unsat Iron Binding Total Bilirubin 0.5 AST 21 ALT 25 Alkaline Phosphatase 67 Total Protein 7.4 Albumin 4.9 Triglycerides 102 Cholesterol 148 LDL Cholesterol, Calc 68 HDL Cholesterol 60 Lipase TSH 2.14 Free T4 1.15 Urine Color Yellow Urine Appearance Clear Urine pH 7.0 Ur Specific [place] 1.010 Urine Protein Negative Urine Glucose (UA) Negative Urine Ketones Negative Urine Blood Negative Urine Nitrite Negative Ur Leukocyte Esterase Large (3+) H Urine RBC 0-2 Urine WBC 21-50 H Ur Squamous Epith Cells 0-2 Urine Bacteria Trace Hyaline Casts 0-2 Urine Osmolality Ur Random Sodium Urine Opiates Screen POSITIVE H Ur Buprenorphine Scrn Not Detected Ur Oxycodone Screen Not Detected Urine Methadone Screen Not Detected Urine Fentanyl Screen Not Detected Ur Barbiturates Screen Not Detected Carbamazepine Ur Phencyclidine Scrn Not Detected Ur Amphetamines Screen Not Detected U Benzodiazepines Scrn Not Detected Urine Cocaine Screen Not Detected U Marijuana (THC) Screen Not Detected COVID-19 (TRESA) COVID-19 Clin Com Influenza Type A (AMANDA) Influenza Type B (AMANDA) Influenza A & B Note TB Test (T-Spot) Com TB Test Nil Control TB Test Panel A TB Test Panel B TB Test Positive [facility] 10/23/24 10/23/24 10/23/24 15:19 15:20 16:31 WBC 6.4 RBC 4.03 L Hgb 11.8 L Hct 34.7 L MCV 86.1 MCH 29.3 MCHC 34.0 RDW 13.6 Plt Count 221 MPV 9.8 Immature Gran % (Auto) 0.3 Neut % (Auto) 64.6 Lymph % (Auto) 23.0 [place] % (Auto) 10.4 Eos % (Auto) 1.2 Baso % (Auto) 0.5 Lymph # (Auto) 1.5 [place] # (Auto) 0.7 Eos # (Auto) 0.1 Baso # (Auto) 0.0 Abs Immat Gran (auto) 0.02 Absolute Neuts (auto) 4.2 Absolute Nucleated RBC 0.000 Nucleated RBC % (auto) 0.0 Smear Tech's Comments VERIFIED Hold Purple Top VBG pH VBG pCO2 VBG pO2 VBG HCO3 VBG O2 Saturation VBG Base Excess Sodium 137 Potassium 4.5 Chloride 104 Carbon Dioxide 24 Anion Gap 14 BUN 26 H Creatinine 1.02 Estim Creat Clear Calc 32.8 Estimated GFR 53 POC Glucose 132 H Random Glucose 158 H Estimat Average Glucose Hemoglobin A1c % Osmolality Lactic Acid Calcium 9.3 Magnesium Iron TIBC % Saturation Unsat Iron Binding Total Bilirubin AST ALT Alkaline Phosphatase Total Protein Albumin Triglycerides Cholesterol LDL Cholesterol, Calc HDL Cholesterol Lipase TSH Free T4 Urine Color Urine Appearance Urine pH Ur Specific [place] Urine Protein Urine Glucose (UA) Urine Ketones Urine Blood Urine Nitrite Ur Leukocyte Esterase Urine RBC Urine WBC Ur Squamous Epith Cells Urine Bacteria Hyaline Casts Urine Osmolality Ur Random Sodium Urine Opiates Screen Ur Buprenorphine Scrn Ur Oxycodone Screen Urine Methadone Screen Urine Fentanyl Screen Ur Barbiturates Screen Carbamazepine Ur Phencyclidine Scrn Ur Amphetamines Screen U Benzodiazepines Scrn Urine Cocaine Screen U Marijuana (THC) Screen COVID-19 (TRESA) COVID-19 Clin Com Influenza Type A (AMANDA) Influenza Type B (AMANDA) Influenza A & B Note TB Test (T-Spot) Com TB Test Nil Control TB Test Panel A TB Test Panel B TB Test Positive Cntrl 10/24/24 10/24/24 10/24/24 06:51 11:08 12:19 WBC RBC Hgb Hct MCV MCH MCHC RDW Plt Count MPV Immature Gran % (Auto) Neut % (Auto) Lymph % (Auto) [place] % (Auto) Eos % (Auto) Baso % (Auto) Lymph # (Auto) [place] # (Auto) Eos # (Auto) Baso # (Auto) Abs Immat Gran (auto) Absolute Neuts (auto) Absolute Nucleated RBC Nucleated RBC % (auto) Smear Tech's Comments Hold Purple Top VBG pH VBG pCO2 VBG pO2 VBG HCO3 VBG O2 Saturation VBG Base Excess Sodium Potassium Chloride Carbon Dioxide Anion Gap BUN Creatinine Estim Creat Clear Calc Estimated GFR POC Glucose 204 H 95 Random Glucose Estimat Average Glucose Hemoglobin A1c % Osmolality Lactic Acid Calcium Magnesium Iron 65 TIBC 216 L % Saturation 30 Unsat Iron Binding 151 Total Bilirubin AST ALT Alkaline Phosphatase Total Protein Albumin Triglycerides Cholesterol LDL Cholesterol, Calc HDL Cholesterol Lipase TSH Free T4 Urine Color Urine Appearance Urine pH Ur Specific [place] Urine Protein Urine Glucose (UA) Urine Ketones Urine Blood Urine Nitrite Ur Leukocyte Esterase Urine RBC Urine WBC Ur Squamous Epith Cells Urine Bacteria Hyaline Casts Urine Osmolality Ur Random Sodium Urine Opiates Screen Ur Buprenorphine Scrn Ur Oxycodone Screen Urine Methadone Screen Urine Fentanyl Screen Ur Barbiturates Screen Carbamazepine Ur Phencyclidine Scrn Ur Amphetamines Screen U Benzodiazepines Scrn Urine Cocaine Screen U Marijuana (THC) Screen COVID-19 (TRESA) COVID-19 Clin Com Influenza Type A (AMANDA) Influenza Type B (AMANDA) Influenza A & B Note TB Test (T-Spot) Com TB Test Nil Control TB Test Panel A TB Test Panel B TB Test Positive Cntrl 10/24/24 10/25/24 10/25/24 16:06 05:55 11:15 WBC RBC Hgb Hct MCV MCH MCHC RDW Plt Count MPV Immature Gran % (Auto) Neut % (Auto) Lymph % (Auto) [place] % (Auto) Eos % (Auto) Baso % (Auto) Lymph # (Auto) [place] # (Auto) Eos # (Auto) Baso # (Auto) Abs Immat Gran (auto) Absolute Neuts (auto) Absolute Nucleated RBC Nucleated RBC % (auto) Smear Tech's Comments Hold Purple Top VBG pH VBG pCO2 VBG pO2 VBG HCO3 VBG O2 Saturation VBG Base Excess Sodium Potassium Chloride Carbon Dioxide Anion Gap BUN Creatinine Estim Creat Clear Calc Estimated GFR POC Glucose 142 H 190 H 177 H Random Glucose Estimat Average Glucose Hemoglobin A1c % Osmolality Lactic Acid Calcium Magnesium Iron TIBC % Saturation Unsat Iron Binding Total Bilirubin AST ALT Alkaline Phosphatase Total Protein Albumin Triglycerides Cholesterol LDL Cholesterol, Calc HDL Cholesterol Lipase TSH Free T4 Urine Color Urine Appearance Urine pH Ur Specific [place] Urine Protein Urine Glucose (UA) Urine Ketones Urine Blood Urine Nitrite Ur Leukocyte Esterase Urine RBC Urine WBC Ur Squamous Epith Cells Urine Bacteria Hyaline Casts Urine Osmolality Ur Random Sodium Urine Opiates Screen Ur Buprenorphine Scrn Ur Oxycodone Screen Urine Methadone Screen Urine Fentanyl Screen Ur Barbiturates Screen Carbamazepine Ur Phencyclidine Scrn Ur Amphetamines Screen U Benzodiazepines Scrn Urine Cocaine Screen U Marijuana (THC) Screen COVID-19 (TRESA) COVID-19 Clin Com Influenza Type A (AMANDA) Influenza Type B (AMANDA) Influenza A & B Note TB Test (T-Spot) Com TB Test Nil Control TB Test Panel A TB Test Panel B TB Test Positive [facility] 10/25/24 10/26/24 10/26/24 16:33 07:05 10:57 WBC RBC Hgb Hct MCV MCH MCHC RDW Plt Count MPV Immature Gran % (Auto) Neut % (Auto) Lymph % (Auto) [place] % (Auto) Eos % (Auto) Baso % (Auto) Lymph # (Auto) [place] # (Auto) Eos # (Auto) Baso # (Auto) Abs Immat Gran (auto) Absolute Neuts (auto) Absolute Nucleated RBC Nucleated RBC % (auto) Smear Tech's Comments Hold Purple Top VBG pH VBG pCO2 VBG pO2 VBG HCO3 VBG O2 Saturation VBG Base Excess Sodium Potassium Chloride Carbon Dioxide Anion Gap BUN Creatinine Estim Creat Clear Calc Estimated GFR POC Glucose 170 H 185 H 189 H Random Glucose Estimat Average Glucose Hemoglobin A1c % Osmolality Lactic Acid Calcium Magnesium Iron TIBC % Saturation Unsat Iron Binding Total Bilirubin AST ALT Alkaline Phosphatase Total Protein Albumin Triglycerides Cholesterol LDL Cholesterol, Calc HDL Cholesterol Lipase TSH Free T4 Urine Color Urine Appearance Urine pH Ur Specific [place] Urine Protein Urine Glucose (UA) Urine Ketones Urine Blood Urine Nitrite Ur Leukocyte Esterase Urine RBC Urine WBC Ur Squamous Epith Cells Urine Bacteria Hyaline Casts Urine Osmolality Ur Random Sodium Urine Opiates Screen Ur Buprenorphine Scrn Ur Oxycodone Screen Urine Methadone Screen Urine Fentanyl Screen Ur Barbiturates Screen Carbamazepine Ur Phencyclidine Scrn Ur Amphetamines Screen U Benzodiazepines Scrn Urine Cocaine Screen U Marijuana (THC) Screen COVID-19 (TRESA) COVID-19 Clin Com Influenza Type A (AMANDA) Influenza Type B (AMANDA) Influenza A & B Note TB Test (T-Spot) Com TB Test Nil Control TB Test Panel A TB Test Panel B TB Test Positive [facility] 10/26/24 10/27/24 10/27/24 16:19 06:45 11:24 WBC RBC Hgb Hct MCV MCH MCHC RDW Plt Count MPV Immature Gran % (Auto) Neut % (Auto) Lymph % (Auto) [place] % (Auto) Eos % (Auto) Baso % (Auto) Lymph # (Auto) [place] # (Auto) Eos # (Auto) Baso # (Auto) Abs Immat Gran (auto) Absolute Neuts (auto) Absolute Nucleated RBC Nucleated RBC % (auto) Smear Tech's Comments Hold Purple Top VBG pH VBG pCO2 VBG pO2 VBG HCO3 VBG O2 Saturation VBG Base Excess Sodium Potassium Chloride Carbon Dioxide Anion Gap BUN Creatinine Estim Creat Clear Calc Estimated GFR POC Glucose 170 H 215 H 117 H Random Glucose Estimat Average Glucose Hemoglobin A1c % Osmolality Lactic Acid Calcium Magnesium Iron TIBC % Saturation Unsat Iron Binding Total Bilirubin AST ALT Alkaline Phosphatase Total Protein Albumin Triglycerides Cholesterol LDL Cholesterol, Calc HDL Cholesterol Lipase TSH Free T4 Urine Color Urine Appearance Urine pH Ur Specific [place] Urine Protein Urine Glucose (UA) Urine Ketones Urine Blood Urine Nitrite Ur Leukocyte Esterase Urine RBC Urine WBC Ur Squamous Epith Cells Urine Bacteria Hyaline Casts Urine Osmolality Ur Random Sodium Urine Opiates Screen Ur Buprenorphine Scrn Ur Oxycodone Screen Urine Methadone Screen Urine Fentanyl Screen Ur Barbiturates Screen Carbamazepine Ur Phencyclidine Scrn Ur Amphetamines Screen U Benzodiazepines Scrn Urine Cocaine Screen U Marijuana (THC) Screen COVID-19 (TRESA) COVID-19 Clin Com Influenza Type A (AMANDA) Influenza Type B (AMANDA) Influenza A & B Note TB Test (T-Spot) Com TB Test Nil Control TB Test Panel A TB Test Panel B TB Test Positive Cntrl 10/27/24 10/28/24 10/28/24 16:14 06:32 10:50 WBC RBC Hgb Hct MCV MCH MCHC RDW Plt Count MPV Immature Gran % (Auto) Neut % (Auto) Lymph % (Auto) [place] % (Auto) Eos % (Auto) Baso % (Auto) Lymph # (Auto) [place] # (Auto) Eos # (Auto) Baso # (Auto) Abs Immat Gran (auto) Absolute Neuts (auto) Absolute Nucleated RBC Nucleated RBC % (auto) Smear Tech's Comments Hold Purple Top VBG pH VBG pCO2 VBG pO2 VBG HCO3 VBG O2 Saturation VBG Base Excess Sodium Potassium Chloride Carbon Dioxide Anion Gap BUN Creatinine Estim Creat Clear Calc Estimated GFR POC Glucose 156 H 195 H 288 H Random Glucose Estimat Average Glucose Hemoglobin A1c % Osmolality Lactic Acid Calcium Magnesium Iron TIBC % Saturation Unsat Iron Binding Total Bilirubin AST ALT Alkaline Phosphatase Total Protein Albumin Triglycerides Cholesterol LDL Cholesterol, Calc HDL Cholesterol Lipase TSH Free T4 Urine Color Urine Appearance Urine pH Ur Specific [place] Urine Protein Urine Glucose (UA) Urine Ketones Urine Blood Urine Nitrite Ur Leukocyte Esterase Urine RBC Urine WBC Ur Squamous Epith Cells Urine Bacteria Hyaline Casts Urine Osmolality Ur Random Sodium Urine Opiates Screen Ur Buprenorphine Scrn Ur Oxycodone Screen Urine Methadone Screen Urine Fentanyl Screen Ur Barbiturates Screen Carbamazepine Ur Phencyclidine Scrn Ur Amphetamines Screen U Benzodiazepines Scrn Urine Cocaine Screen U Marijuana (THC) Screen COVID-19 (TRESA) COVID-19 Clin Com Influenza Type A (AMANDA) Influenza Type B (AMANDA) Influenza A & B Note TB Test (T-Spot) Com TB Test Nil Control TB Test Panel A TB Test Panel B TB Test Positive [facility] 10/28/24 10/28/24 10/29/24 15:54 20:28 06:47 WBC RBC Hgb Hct MCV MCH MCHC RDW Plt Count MPV Immature Gran % (Auto) Neut % (Auto) Lymph % (Auto) [place] % (Auto) Eos % (Auto) Baso % (Auto) Lymph # (Auto) [place] # (Auto) Eos # (Auto) Baso # (Auto) Abs Immat Gran (auto) Absolute Neuts (auto) Absolute Nucleated RBC Nucleated RBC % (auto) Smear Tech's Comments Hold Purple Top VBG pH VBG pCO2 VBG pO2 VBG HCO3 VBG O2 Saturation VBG Base Excess Sodium Potassium Chloride Carbon Dioxide Anion Gap BUN Creatinine Estim Creat Clear Calc Estimated GFR POC Glucose 132 H 210 H 188 H Random Glucose Estimat Average Glucose Hemoglobin A1c % Osmolality Lactic Acid Calcium Magnesium Iron TIBC % Saturation Unsat Iron Binding Total Bilirubin AST ALT Alkaline Phosphatase Total Protein Albumin Triglycerides Cholesterol LDL Cholesterol, Calc HDL Cholesterol Lipase TSH Free T4 Urine Color Urine Appearance Urine pH Ur Specific [place] Urine Protein Urine Glucose (UA) Urine Ketones Urine Blood Urine Nitrite Ur Leukocyte Esterase Urine RBC Urine WBC Ur Squamous Epith Cells Urine Bacteria Hyaline Casts Urine Osmolality Ur Random Sodium Urine Opiates Screen Ur Buprenorphine Scrn Ur Oxycodone Screen Urine Methadone Screen Urine Fentanyl Screen Ur Barbiturates Screen Carbamazepine Ur Phencyclidine Scrn Ur Amphetamines Screen U Benzodiazepines Scrn Urine Cocaine Screen U Marijuana (THC) Screen COVID-19 (TRESA) COVID-19 Clin Com Influenza Type A (AMANDA) Influenza Type B (AMANDA) Influenza A & B Note TB Test (T-Spot) Com TB Test Nil Control TB Test Panel A TB Test Panel B TB Test Positive Cnt 10/29/24 10/29/24 10/29/24 11:16 15:42 16:24 WBC 11.0 H RBC 3.49 L Hgb 10.4 L Hct 29.9 L MCV 85.7 MCH 29.8 MCHC 34.8 RDW 13.7 Plt Count 271 MPV 8.8 L Immature Gran % (Auto) 0.5 H Neut % (Auto) 71.9 Lymph % (Auto) 14.5 L [place] % (Auto) 11.9 H Eos % (Auto) 0.7 Baso % (Auto) 0.5 Lymph # (Auto) 1.6 [place] # (Auto) 1.3 H Eos # (Auto) 0.1 Baso # (Auto) 0.1 Abs Immat Gran (auto) 0.05 H Absolute Neuts (auto) 7.9 Absolute Nucleated RBC 0.000 Nucleated RBC % (auto) 0.0 Smear Tech's Comments Hold Purple Top VBG pH VBG pCO2 VBG pO2 VBG HCO3 VBG O2 Saturation VBG Base Excess Sodium 133 L Potassium 4.7 Chloride 102 Carbon Dioxide 24 Anion Gap 12 BUN 39 H Creatinine 1.24 Estim Creat Clear Calc 27.3 Estimated GFR 42 POC Glucose 265 H 156 H Random Glucose 180 H Estimat Average Glucose Hemoglobin A1c % Osmolality Lactic Acid Calcium 8.9 Magnesium Iron TIBC % Saturation Unsat Iron Binding Total Bilirubin 0.4 AST 15 ALT 21 Alkaline Phosphatase 67 Total Protein 6.4 L Albumin 4.1 Triglycerides Cholesterol LDL Cholesterol, Calc HDL Cholesterol Lipase TSH Free T4 Urine Color Urine Appearance Urine pH Ur Specific [place] Urine Protein Urine Glucose (UA) Urine Ketones Urine Blood Urine Nitrite Ur Leukocyte Esterase Urine RBC Urine WBC Ur Squamous Epith Cells Urine Bacteria Hyaline Casts Urine Osmolality Ur Random Sodium Urine Opiates Screen Ur Buprenorphine Scrn Ur Oxycodone Screen Urine Methadone Screen Urine Fentanyl Screen Ur Barbiturates Screen Carbamazepine Ur Phencyclidine Scrn Ur Amphetamines Screen U Benzodiazepines Scrn Urine Cocaine Screen U Marijuana (THC) Screen COVID-19 (TRESA) COVID-19 Clin Com Influenza Type A (AMANDA) Influenza Type B (AMANDA) Influenza A & B Note TB Test (T-Spot) Com TB Test Nil Control TB Test Panel A TB Test Panel B TB Test Positive Cntrl 10/30/24 10/30/24 10/30/24 06:46 11:13 16:09 WBC RBC Hgb Hct MCV MCH MCHC RDW Plt Count MPV Immature Gran % (Auto) Neut % (Auto) Lymph % (Auto) [place] % (Auto) Eos % (Auto) Baso % (Auto) Lymph # (Auto) [place] # (Auto) Eos # (Auto) Baso # (Auto) Abs Immat Gran (auto) Absolute Neuts (auto) Absolute Nucleated RBC Nucleated RBC % (auto) Smear Tech's Comments Hold Purple Top VBG pH VBG pCO2 VBG pO2 VBG HCO3 VBG O2 Saturation VBG Base Excess Sodium Potassium Chloride Carbon Dioxide Anion Gap BUN Creatinine Estim Creat Clear Calc Estimated GFR POC Glucose 195 H 194 H 143 H Random Glucose Estimat Average Glucose Hemoglobin A1c % Osmolality Lactic Acid Calcium Magnesium Iron TIBC % Saturation Unsat Iron Binding Total Bilirubin AST ALT Alkaline Phosphatase Total Protein Albumin Triglycerides Cholesterol LDL Cholesterol, Calc HDL Cholesterol Lipase TSH Free T4 Urine Color Urine Appearance Urine pH Ur Specific [place] Urine Protein Urine Glucose (UA) Urine Ketones Urine Blood Urine Nitrite Ur Leukocyte Esterase Urine RBC Urine WBC Ur Squamous Epith Cells Urine Bacteria Hyaline Casts Urine Osmolality Ur Random Sodium Urine Opiates Screen Ur Buprenorphine Scrn Ur Oxycodone Screen Urine Methadone Screen Urine Fentanyl Screen Ur Barbiturates Screen Carbamazepine Ur Phencyclidine Scrn Ur Amphetamines Screen U Benzodiazepines Scrn Urine Cocaine Screen U Marijuana (THC) Screen COVID-19 ([facility]) COVID-19 Clin Com Influenza Type A (AMANDA) Influenza Type B (AMANDA) Influenza A & B Note TB Test (T-Spot) Com TB Test Nil Control TB Test Panel A TB Test Panel B TB Test Positive [facility] 10/30/24 10/30/24 10/31/24 17:25 19:55 06:33 WBC 11.2 H RBC 3.63 L Hgb 10.7 L Hct 31.4 L MCV 86.5 MCH 29.5 MCHC 34.1 RDW 13.5 Plt Count 288 MPV 8.9 L Immature Gran % (Auto) 0.5 H Neut % (Auto) 74.7 H Lymph % (Auto) 13.2 L [place] % (Auto) 10.5 Eos % (Auto) 0.7 Baso % (Auto) 0.4 Lymph # (Auto) 1.5 [place] # (Auto) 1.2 Eos # (Auto) 0.1 Baso # (Auto) 0.0 Abs Immat Gran (auto) 0.06 H Absolute Neuts (auto) 8.4 H Absolute Nucleated RBC 0.000 Nucleated RBC % (auto) 0.0 Smear Tech's Comments Hold Purple Top VBG pH VBG pCO2 VBG pO2 VBG HCO3 VBG O2 Saturation VBG Base Excess Sodium 136 Potassium 5.1 Chloride 101 Carbon Dioxide 26 Anion Gap 14 BUN 34 H Creatinine 1.17 Estim Creat Clear Calc 28.9 Estimated GFR 45 POC Glucose 244 H 173 H Random Glucose 225 H Estimat Average Glucose Hemoglobin A1c % Osmolality Lactic Acid Calcium 9.2 Magnesium Iron TIBC % Saturation Unsat Iron Binding Total Bilirubin 0.5 AST 15 ALT 23 Alkaline Phosphatase 64 Total Protein 6.8 Albumin 4.3 Triglycerides Cholesterol LDL Cholesterol, Calc HDL Cholesterol Lipase TSH Free T4 Urine Color Urine Appearance Urine pH Ur Specific [place] Urine Protein Urine Glucose (UA) Urine Ketones Urine Blood Urine Nitrite Ur Leukocyte Esterase Urine RBC Urine WBC Ur Squamous Epith Cells Urine Bacteria Hyaline Casts Urine Osmolality Ur Random Sodium Urine Opiates Screen Ur Buprenorphine Scrn Ur Oxycodone Screen Urine Methadone Screen Urine Fentanyl Screen Ur Barbiturates Screen Carbamazepine Ur Phencyclidine Scrn Ur Amphetamines Screen U Benzodiazepines Scrn Urine Cocaine Screen U Marijuana (THC) Screen COVID-19 ([facility]ES[facility]) COVID-19 Clin Com Influenza Type A (AMANDA) Influenza Type B (AMANDA) Influenza A & B Note TB Test (T-Spot) Com TB Test Nil Control TB Test Panel A TB Test Panel B TB Test Positive Cntrl 10/31/24 10/31/24 11/01/24 11:26 16:31 06:33 WBC RBC Hgb Hct MCV MCH MCHC RDW Plt Count MPV Immature Gran % (Auto) Neut % (Auto) Lymph % (Auto) [place] % (Auto) Eos % (Auto) Baso % (Auto) Lymph # (Auto) [place] # (Auto) Eos # (Auto) Baso # (Auto) Abs Immat Gran (auto) Absolute Neuts (auto) Absolute Nucleated RBC Nucleated RBC % (auto) Smear Tech's Comments Hold Purple Top VBG pH VBG pCO2 VBG pO2 VBG HCO3 VBG O2 Saturation VBG Base Excess Sodium Potassium Chloride Carbon Dioxide Anion Gap BUN Creatinine Estim Creat Clear Calc Estimated GFR POC Glucose 178 H 169 H 199 H Random Glucose Estimat Average Glucose Hemoglobin A1c % Osmolality Lactic Acid Calcium Magnesium Iron TIBC % Saturation Unsat Iron Binding Total Bilirubin AST ALT Alkaline Phosphatase Total Protein Albumin Triglycerides Cholesterol LDL Cholesterol, Calc HDL Cholesterol Lipase TSH Free T4 Urine Color Urine Appearance Urine pH Ur Specific [place] Urine Protein Urine Glucose (UA) Urine Ketones Urine Blood Urine Nitrite Ur Leukocyte Esterase Urine RBC Urine WBC Ur Squamous Epith Cells Urine Bacteria Hyaline Casts Urine Osmolality Ur Random Sodium Urine Opiates Screen Ur Buprenorphine Scrn Ur Oxycodone Screen Urine Methadone Screen Urine Fentanyl Screen Ur Barbiturates Screen Carbamazepine Ur Phencyclidine Scrn Ur Amphetamines Screen U Benzodiazepines Scrn Urine Cocaine Screen U Marijuana (THC) Screen COVID-19 ([facility]) COVID-19 Clin Com Influenza Type A (AMANDA) Influenza Type B (AMANDA) Influenza A & B Note TB Test (T-Spot) Com TB Test Nil Control TB Test Panel A TB Test Panel B TB Test Positive [facility] 11/01/24 11/01/24 11/01/24 11:05 16:24 19:41 WBC RBC Hgb Hct MCV MCH MCHC RDW Plt Count MPV Immature Gran % (Auto) Neut % (Auto) Lymph % (Auto) [place] % (Auto) Eos % (Auto) Baso % (Auto) Lymph # (Auto) [place] # (Auto) Eos # (Auto) Baso # (Auto) Abs Immat Gran (auto) Absolute Neuts (auto) Absolute Nucleated RBC Nucleated RBC % (auto) Smear Tech's Comments Hold Purple Top VBG pH VBG pCO2 VBG pO2 VBG HCO3 VBG O2 Saturation VBG Base Excess Sodium Potassium Chloride Carbon Dioxide Anion Gap BUN Creatinine Estim Creat Clear Calc Estimated GFR POC Glucose 257 H 124 H 209 H Random Glucose Estimat Average Glucose Hemoglobin A1c % Osmolality Lactic Acid Calcium Magnesium Iron TIBC % Saturation Unsat Iron Binding Total Bilirubin AST ALT Alkaline Phosphatase Total Protein Albumin Triglycerides Cholesterol LDL Cholesterol, Calc HDL Cholesterol Lipase TSH Free T4 Urine Color Urine Appearance Urine pH Ur Specific [place] Urine Protein Urine Glucose (UA) Urine Ketones Urine Blood Urine Nitrite Ur Leukocyte Esterase Urine RBC Urine WBC Ur Squamous Epith Cells Urine Bacteria Hyaline Casts Urine Osmolality Ur Random Sodium Urine Opiates Screen Ur Buprenorphine Scrn Ur Oxycodone Screen Urine Methadone Screen Urine Fentanyl Screen Ur Barbiturates Screen Carbamazepine Ur Phencyclidine Scrn Ur Amphetamines Screen U Benzodiazepines Scrn Urine Cocaine Screen U Marijuana (THC) Screen COVID-19 ([facility]ES[facility]) COVID-19 Clin Com Influenza Type A (AMANDA) Influenza Type B (AMANDA) Influenza A & B Note TB Test (T-Spot) Com TB Test Nil Control TB Test Panel A TB Test Panel B TB Test Positive [facility] 11/02/24 11/02/24 11/02/24 06:34 11:26 11:28 WBC RBC Hgb Hct MCV MCH MCHC RDW Plt Count MPV Immature Gran % (Auto) Neut % (Auto) Lymph % (Auto) [place] % (Auto) Eos % (Auto) Baso % (Auto) Lymph # (Auto) [place] # (Auto) Eos # (Auto) Baso # (Auto) Abs Immat Gran (auto) Absolute Neuts (auto) Absolute Nucleated RBC Nucleated RBC % (auto) Smear Tech's Comments Hold Purple Top VBG pH VBG pCO2 VBG pO2 VBG HCO3 VBG O2 Saturation VBG Base Excess Sodium Potassium Chloride Carbon Dioxide Anion Gap BUN Creatinine Estim Creat Clear Calc Estimated GFR POC Glucose 185 H 445 H* 469 H* Random Glucose Estimat Average Glucose Hemoglobin A1c % Osmolality Lactic Acid Calcium Magnesium Iron TIBC % Saturation Unsat Iron Binding Total Bilirubin AST ALT Alkaline Phosphatase Total Protein Albumin Triglycerides Cholesterol LDL Cholesterol, Calc HDL Cholesterol Lipase TSH Free T4 Urine Color Urine Appearance Urine pH Ur Specific [place] Urine Protein Urine Glucose (UA) Urine Ketones Urine Blood Urine Nitrite Ur Leukocyte Esterase Urine RBC Urine WBC Ur Squamous Epith Cells Urine Bacteria Hyaline Casts Urine Osmolality Ur Random Sodium Urine Opiates Screen Ur Buprenorphine Scrn Ur Oxycodone Screen Urine Methadone Screen Urine Fentanyl Screen Ur Barbiturates Screen Carbamazepine Ur Phencyclidine Scrn Ur Amphetamines Screen U Benzodiazepines Scrn Urine Cocaine Screen U Marijuana (THC) Screen COVID-19 ([facility]) COVID-19 Clin Com Influenza Type A (AMANDA) Influenza Type B (AMANDA) Influenza A & B Note TB Test (T-Spot) Com TB Test Nil Control TB Test Panel A TB Test Panel B TB Test Positive Cnt 11/02/24 11/02/24 11/02/24 13:18 16:31 19:46 WBC RBC Hgb Hct MCV MCH MCHC RDW Plt Count MPV Immature Gran % (Auto) Neut % (Auto) Lymph % (Auto) [place] % (Auto) Eos % (Auto) Baso % (Auto) Lymph # (Auto) [place] # (Auto) Eos # (Auto) Baso # (Auto) Abs Immat Gran (auto) Absolute Neuts (auto) Absolute Nucleated RBC Nucleated RBC % (auto) Smear Tech's Comments Hold Purple Top VBG pH VBG pCO2 VBG pO2 VBG HCO3 VBG O2 Saturation VBG Base Excess Sodium Potassium Chloride Carbon Dioxide Anion Gap BUN Creatinine Estim Creat Clear Calc Estimated GFR POC Glucose 379 H* 206 H 153 H Random Glucose Estimat Average Glucose Hemoglobin A1c % Osmolality Lactic Acid Calcium Magnesium Iron TIBC % Saturation Unsat Iron Binding Total Bilirubin AST ALT Alkaline Phosphatase Total Protein Albumin Triglycerides Cholesterol LDL Cholesterol, Calc HDL Cholesterol Lipase TSH Free T4 Urine Color Urine Appearance Urine pH Ur Specific [place] Urine Protein Urine Glucose (UA) Urine Ketones Urine Blood Urine Nitrite Ur Leukocyte Esterase Urine RBC Urine WBC Ur Squamous Epith Cells Urine Bacteria Hyaline Casts Urine Osmolality Ur Random Sodium Urine Opiates Screen Ur Buprenorphine Scrn Ur Oxycodone Screen Urine Methadone Screen Urine Fentanyl Screen Ur Barbiturates Screen Carbamazepine Ur Phencyclidine Scrn Ur Amphetamines Screen U Benzodiazepines Scrn Urine Cocaine Screen U Marijuana (THC) Screen COVID-19 ([facility]ES[facility]) COVID-19 Clin Com Influenza Type A (AMANDA) Influenza Type B (AMANDA) Influenza A & B Note TB Test (T-Spot) Com TB Test Nil Control TB Test Panel A TB Test Panel B TB Test Positive Cntrl 11/02/24 11/02/24 11/02/24 20:13 20:14 20:18 WBC 6.8 RBC 3.44 L Hgb 10.4 L Hct 29.1 L MCV 84.6 MCH 30.2 MCHC 35.7 H RDW 13.2 Plt Count 286 MPV 8.6 L Immature Gran % (Auto) 0.4 Neut % (Auto) 59.4 Lymph % (Auto) 27.6 [place] % (Auto) 11.3 H Eos % (Auto) 1.0 Baso % (Auto) 0.3 Lymph # (Auto) 1.9 [place] # (Auto) 0.8 Eos # (Auto) 0.1 Baso # (Auto) 0.0 Abs Immat Gran (auto) 0.03 Absolute Neuts (auto) 4.1 Absolute Nucleated RBC 0.000 Nucleated RBC % (auto) 0.0 Smear Tech's Comments Hold Purple Top VBG pH 7.44 H VBG pCO2 37 VBG pO2 48 VBG HCO3 26 VBG O2 Saturation 76.0 VBG Base Excess 2.3 Sodium 133 L Potassium 4.7 Chloride 100 Carbon Dioxide 26 Anion Gap 12 BUN 33 H Creatinine 1.86 H Estim Creat Clear Calc 18.0 Estimated GFR 26 POC Glucose Random Glucose 135 H Estimat Average Glucose Hemoglobin A1c % Osmolality Lactic Acid 1.2 Calcium 9.3 Magnesium 2.2 Iron TIBC % Saturation Unsat Iron Binding Total Bilirubin 0.4 AST 16 ALT 25 Alkaline Phosphatase 79 Total Protein 7.1 Albumin 4.4 Triglycerides Cholesterol LDL Cholesterol, Calc HDL Cholesterol Lipase 37 TSH Free T4 Urine Color Urine Appearance Urine pH Ur Specific [place] Urine Protein Urine Glucose (UA) Urine Ketones Urine Blood Urine Nitrite Ur Leukocyte Esterase Urine RBC Urine WBC Ur Squamous Epith Cells Urine Bacteria Hyaline Casts Urine Osmolality Ur Random Sodium Urine Opiates Screen Ur Buprenorphine Scrn Ur Oxycodone Screen Urine Methadone Screen Urine Fentanyl Screen Ur Barbiturates Screen Carbamazepine Ur Phencyclidine Scrn Ur Amphetamines Screen U Benzodiazepines Scrn Urine Cocaine Screen U Marijuana (THC) Screen COVID-19 ([facility]) COVID-19 Clin Com Influenza Type A (AMANDA) Influenza Type B (AMANDA) Influenza A & B Note TB Test (T-Spot) Com TB Test Nil Control TB Test Panel A TB Test Panel B TB Test Positive Cntrl 11/02/24 11/02/24 11/03/24 20:20 21:38 06:38 WBC RBC Hgb Hct MCV MCH MCHC RDW Plt Count MPV Immature Gran % (Auto) Neut % (Auto) Lymph % (Auto) [place] % (Auto) Eos % (Auto) Baso % (Auto) Lymph # (Auto) [place] # (Auto) Eos # (Auto) Baso # (Auto) Abs Immat Gran (auto) Absolute Neuts (auto) Absolute Nucleated RBC Nucleated RBC % (auto) Smear Tech's Comments Hold Purple Top VBG pH VBG pCO2 VBG pO2 VBG HCO3 VBG O2 Saturation VBG Base Excess Sodium Potassium Chloride Carbon Dioxide Anion Gap BUN Creatinine Estim Creat Clear Calc Estimated GFR POC Glucose 123 H 164 H Random Glucose Estimat Average Glucose Hemoglobin A1c % Osmolality Lactic Acid Calcium Magnesium Iron TIBC % Saturation Unsat Iron Binding Total Bilirubin AST ALT Alkaline Phosphatase Total Protein Albumin Triglycerides Cholesterol LDL Cholesterol, Calc HDL Cholesterol Lipase TSH Free T4 Urine Color Yellow Urine Appearance Clear Urine pH 6.5 Ur Specific [place] 1.015 Urine Protein Negative Urine Glucose (UA) Negative Urine Ketones Negative Urine Blood Negative Urine Nitrite Negative Ur Leukocyte Esterase Large (3+) H Urine RBC 0-2 Urine WBC 11-20 H Ur Squamous Epith Cells 0-2 Urine Bacteria None Seen Hyaline Casts 0-2 Urine Osmolality Ur Random Sodium Urine Opiates Screen Ur Buprenorphine Scrn Ur Oxycodone Screen Urine Methadone Screen Urine Fentanyl Screen Ur Barbiturates Screen Carbamazepine Ur Phencyclidine Scrn Ur Amphetamines Screen U Benzodiazepines Scrn Urine Cocaine Screen U Marijuana (THC) Screen COVID-19 ([facility]) COVID-19 Clin Com Influenza Type A (AMANDA) Influenza Type B (AMANDA) Influenza A & B Note TB Test (T-Spot) Com TB Test Nil Control TB Test Panel A TB Test Panel B TB Test Positive Cnt 11/03/24 11/03/24 11/04/24 11:23 16:03 06:47 WBC RBC Hgb Hct MCV MCH MCHC RDW Plt Count MPV Immature Gran % (Auto) Neut % (Auto) Lymph % (Auto) [place] % (Auto) Eos % (Auto) Baso % (Auto) Lymph # (Auto) [place] # (Auto) Eos # (Auto) Baso # (Auto) Abs Immat Gran (auto) Absolute Neuts (auto) Absolute Nucleated RBC Nucleated RBC % (auto) Smear Tech's Comments Hold Purple Top VBG pH VBG pCO2 VBG pO2 VBG HCO3 VBG O2 Saturation VBG Base Excess Sodium Potassium Chloride Carbon Dioxide Anion Gap BUN Creatinine Estim Creat Clear Calc Estimated GFR POC Glucose 238 H 185 H 148 H Random Glucose Estimat Average Glucose Hemoglobin A1c % Osmolality Lactic Acid Calcium Magnesium Iron TIBC % Saturation Unsat Iron Binding Total Bilirubin AST ALT Alkaline Phosphatase Total Protein Albumin Triglycerides Cholesterol LDL Cholesterol, Calc HDL Cholesterol Lipase TSH Free T4 Urine Color Urine Appearance Urine pH Ur Specific [place] Urine Protein Urine Glucose (UA) Urine Ketones Urine Blood Urine Nitrite Ur Leukocyte Esterase Urine RBC Urine WBC Ur Squamous Epith Cells Urine Bacteria Hyaline Casts Urine Osmolality Ur Random Sodium Urine Opiates Screen Ur Buprenorphine Scrn Ur Oxycodone Screen Urine Methadone Screen Urine Fentanyl Screen Ur Barbiturates Screen Carbamazepine Ur Phencyclidine Scrn Ur Amphetamines Screen U Benzodiazepines Scrn Urine Cocaine Screen U Marijuana (THC) Screen COVID-19 ([facility]) COVID-19 Clin Com Influenza Type A (AMANDA) Influenza Type B (AMANDA) Influenza A & B Note TB Test (T-Spot) Com TB Test Nil Control TB Test Panel A TB Test Panel B TB Test Positive [facility] 11/04/24 11/04/24 11/04/24 09:52 11:20 16:30 WBC RBC Hgb Hct MCV MCH MCHC RDW Plt Count MPV Immature Gran % (Auto) Neut % (Auto) Lymph % (Auto) [place] % (Auto) Eos % (Auto) Baso % (Auto) Lymph # (Auto) [place] # (Auto) Eos # (Auto) Baso # (Auto) Abs Immat Gran (auto) Absolute Neuts (auto) Absolute Nucleated RBC Nucleated RBC % (auto) Smear Tech's Comments Hold Purple Top VBG pH VBG pCO2 VBG pO2 VBG HCO3 VBG O2 Saturation VBG Base Excess Sodium 134 L Potassium 5.5 H Chloride 102 Carbon Dioxide 22 Anion Gap 16 BUN 35 H Creatinine 1.15 Estim Creat Clear Calc 29.2 Estimated GFR 46 POC Glucose 178 H 139 H Random Glucose 232 H Estimat Average Glucose Hemoglobin A1c % Osmolality Lactic Acid Calcium 9.1 Magnesium Iron TIBC % Saturation Unsat Iron Binding Total Bilirubin 0.3 AST 25 ALT 25 Alkaline Phosphatase 67 Total Protein 6.9 Albumin 4.2 Triglycerides Cholesterol LDL Cholesterol, Calc HDL Cholesterol Lipase TSH Free T4 Urine Color Urine Appearance Urine pH Ur Specific [place] Urine Protein Urine Glucose (UA) Urine Ketones Urine Blood Urine Nitrite Ur Leukocyte Esterase Urine RBC Urine WBC Ur Squamous Epith Cells Urine Bacteria Hyaline Casts Urine Osmolality Ur Random Sodium Urine Opiates Screen Ur Buprenorphine Scrn Ur Oxycodone Screen Urine Methadone Screen Urine Fentanyl Screen Ur Barbiturates Screen Carbamazepine Ur Phencyclidine Scrn Ur Amphetamines Screen U Benzodiazepines Scrn Urine Cocaine Screen U Marijuana (THC) Screen COVID-19 ([facility]ESA) COVID-19 Clin Com Influenza Type A (AMANDA) Influenza Type B (AMANDA) Influenza A & B Note TB Test (T-Spot) Com TB Test Nil Control TB Test Panel A TB Test Panel B TB Test Positive Cntrl 11/04/24 11/04/24 11/05/24 16:53 21:12 06:28 WBC RBC Hgb Hct MCV MCH MCHC RDW Plt Count MPV Immature Gran % (Auto) Neut % (Auto) Lymph % (Auto) [place] % (Auto) Eos % (Auto) Baso % (Auto) Lymph # (Auto) [place] # (Auto) Eos # (Auto) Baso # (Auto) Abs Immat Gran (auto) Absolute Neuts (auto) Absolute Nucleated RBC Nucleated RBC % (auto) Smear Tech's Comments Hold Purple Top VBG pH VBG pCO2 VBG pO2 VBG HCO3 VBG O2 Saturation VBG Base Excess Sodium Potassium Chloride Carbon Dioxide Anion Gap BUN Creatinine Estim Creat Clear Calc Estimated GFR POC Glucose 192 H 199 H 155 H Random Glucose Estimat Average Glucose Hemoglobin A1c % Osmolality Lactic Acid Calcium Magnesium Iron TIBC % Saturation Unsat Iron Binding Total Bilirubin AST ALT Alkaline Phosphatase Total Protein Albumin Triglycerides Cholesterol LDL Cholesterol, Calc HDL Cholesterol Lipase TSH Free T4 Urine Color Urine Appearance Urine pH Ur Specific [place] Urine Protein Urine Glucose (UA) Urine Ketones Urine Blood Urine Nitrite Ur Leukocyte Esterase Urine RBC Urine WBC Ur Squamous Epith Cells Urine Bacteria Hyaline Casts Urine Osmolality Ur Random Sodium Urine Opiates Screen Ur Buprenorphine Scrn Ur Oxycodone Screen Urine Methadone Screen Urine Fentanyl Screen Ur Barbiturates Screen Carbamazepine Ur Phencyclidine Scrn Ur Amphetamines Screen U Benzodiazepines Scrn Urine Cocaine Screen U Marijuana (THC) Screen COVID-19 (TRESA) COVID-19 Clin Com Influenza Type A (AMANDA) Influenza Type B (AMANDA) Influenza A & B Note TB Test (T-Spot) Com TB Test Nil Control TB Test Panel A TB Test Panel B TB Test Positive Cntrl 11/05/24 11/05/24 11/05/24 11:14 16:10 20:54 WBC RBC Hgb Hct MCV MCH MCHC RDW Plt Count MPV Immature Gran % (Auto) Neut % (Auto) Lymph % (Auto) [place] % (Auto) Eos % (Auto) Baso % (Auto) Lymph # (Auto) [place] # (Auto) Eos # (Auto) Baso # (Auto) Abs Immat Gran (auto) Absolute Neuts (auto) Absolute Nucleated RBC Nucleated RBC % (auto) Smear Tech's Comments Hold Purple Top VBG pH VBG pCO2 VBG pO2 VBG HCO3 VBG O2 Saturation VBG Base Excess Sodium Potassium Chloride Carbon Dioxide Anion Gap BUN Creatinine Estim Creat Clear Calc Estimated GFR POC Glucose 145 H 145 H 205 H Random Glucose Estimat Average Glucose Hemoglobin A1c % Osmolality Lactic Acid Calcium Magnesium Iron TIBC % Saturation Unsat Iron Binding Total Bilirubin AST ALT Alkaline Phosphatase Total Protein Albumin Triglycerides Cholesterol LDL Cholesterol, Calc HDL Cholesterol Lipase TSH Free T4 Urine Color Urine Appearance Urine pH Ur Specific [place] Urine Protein Urine Glucose (UA) Urine Ketones Urine Blood Urine Nitrite Ur Leukocyte Esterase Urine RBC Urine WBC Ur Squamous Epith Cells Urine Bacteria Hyaline Casts Urine Osmolality Ur Random Sodium Urine Opiates Screen Ur Buprenorphine Scrn Ur Oxycodone Screen Urine Methadone Screen Urine Fentanyl Screen Ur Barbiturates Screen Carbamazepine Ur Phencyclidine Scrn Ur Amphetamines Screen U Benzodiazepines Scrn Urine Cocaine Screen U Marijuana (THC) Screen COVID-19 (TRESA) COVID-19 Clin Com Influenza Type A (AMANDA) Influenza Type B (AMANDA) Influenza A & B Note TB Test (T-Spot) Com TB Test Nil Control TB Test Panel A TB Test Panel B TB Test Positive [facility] 11/06/24 11/06/24 11/06/24 06:29 11:28 16:19 WBC RBC Hgb Hct MCV MCH MCHC RDW Plt Count MPV Immature Gran % (Auto) Neut % (Auto) Lymph % (Auto) [place] % (Auto) Eos % (Auto) Baso % (Auto) Lymph # (Auto) [place] # (Auto) Eos # (Auto) Baso # (Auto) Abs Immat Gran (auto) Absolute Neuts (auto) Absolute Nucleated RBC Nucleated RBC % (auto) Smear Tech's Comments Hold Purple Top VBG pH VBG pCO2 VBG pO2 VBG HCO3 VBG O2 Saturation VBG Base Excess Sodium Potassium Chloride Carbon Dioxide Anion Gap BUN Creatinine Estim Creat Clear Calc Estimated GFR POC Glucose 186 H 166 H 168 H Random Glucose Estimat Average Glucose Hemoglobin A1c % Osmolality Lactic Acid Calcium Magnesium Iron TIBC % Saturation Unsat Iron Binding Total Bilirubin AST ALT Alkaline Phosphatase Total Protein Albumin Triglycerides Cholesterol LDL Cholesterol, Calc HDL Cholesterol Lipase TSH Free T4 Urine Color Urine Appearance Urine pH Ur Specific [place] Urine Protein Urine Glucose (UA) Urine Ketones Urine Blood Urine Nitrite Ur Leukocyte Esterase Urine RBC Urine WBC Ur Squamous Epith Cells Urine Bacteria Hyaline Casts Urine Osmolality Ur Random Sodium Urine Opiates Screen Ur Buprenorphine Scrn Ur Oxycodone Screen Urine Methadone Screen Urine Fentanyl Screen Ur Barbiturates Screen Carbamazepine Ur Phencyclidine Scrn Ur Amphetamines Screen U Benzodiazepines Scrn Urine Cocaine Screen U Marijuana (THC) Screen COVID-19 ([facility]ESA) COVID-19 Clin Com Influenza Type A (AMANDA) Influenza Type B (AMANDA) Influenza A & B Note TB Test (T-Spot) Com TB Test Nil Control TB Test Panel A TB Test Panel B TB Test Positive [facility] 11/06/24 11/07/24 11/07/24 21:20 06:20 10:45 WBC RBC Hgb Hct MCV MCH MCHC RDW Plt Count MPV Immature Gran % (Auto) Neut % (Auto) Lymph % (Auto) [place] % (Auto) Eos % (Auto) Baso % (Auto) Lymph # (Auto) [place] # (Auto) Eos # (Auto) Baso # (Auto) Abs Immat Gran (auto) Absolute Neuts (auto) Absolute Nucleated RBC Nucleated RBC % (auto) Smear Tech's Comments Hold Purple Top VBG pH VBG pCO2 VBG pO2 VBG HCO3 VBG O2 Saturation VBG Base Excess Sodium Potassium Chloride Carbon Dioxide Anion Gap BUN Creatinine Estim Creat Clear Calc Estimated GFR POC Glucose 82 125 H 159 H Random Glucose Estimat Average Glucose Hemoglobin A1c % Osmolality Lactic Acid Calcium Magnesium Iron TIBC % Saturation Unsat Iron Binding Total Bilirubin AST ALT Alkaline Phosphatase Total Protein Albumin Triglycerides Cholesterol LDL Cholesterol, Calc HDL Cholesterol Lipase TSH Free T4 Urine Color Urine Appearance Urine pH Ur Specific [place] Urine Protein Urine Glucose (UA) Urine Ketones Urine Blood Urine Nitrite Ur Leukocyte Esterase Urine RBC Urine WBC Ur Squamous Epith Cells Urine Bacteria Hyaline Casts Urine Osmolality Ur Random Sodium Urine Opiates Screen Ur Buprenorphine Scrn Ur Oxycodone Screen Urine Methadone Screen Urine Fentanyl Screen Ur Barbiturates Screen Carbamazepine Ur Phencyclidine Scrn Ur Amphetamines Screen U Benzodiazepines Scrn Urine Cocaine Screen U Marijuana (THC) Screen COVID-19 (TRESA) COVID-19 Clin Com Influenza Type A (AMANDA) Influenza Type B (AMANDA) Influenza A & B Note TB Test (T-Spot) Com TB Test Nil Control TB Test Panel A TB Test Panel B TB Test Positive Cntrl 11/07/24 11/07/24 11/08/24 16:17 20:21 06:25 WBC RBC Hgb Hct MCV MCH MCHC RDW Plt Count MPV Immature Gran % (Auto) Neut % (Auto) Lymph % (Auto) [place] % (Auto) Eos % (Auto) Baso % (Auto) Lymph # (Auto) [place] # (Auto) Eos # (Auto) Baso # (Auto) Abs Immat Gran (auto) Absolute Neuts (auto) Absolute Nucleated RBC Nucleated RBC % (auto) Smear Tech's Comments Hold Purple Top VBG pH VBG pCO2 VBG pO2 VBG HCO3 VBG O2 Saturation VBG Base Excess Sodium Potassium Chloride Carbon Dioxide Anion Gap BUN Creatinine Estim Creat Clear Calc Estimated GFR POC Glucose 115 142 H 147 H Random Glucose Estimat Average Glucose Hemoglobin A1c % Osmolality Lactic Acid Calcium Magnesium Iron TIBC % Saturation Unsat Iron Binding Total Bilirubin AST ALT Alkaline Phosphatase Total Protein Albumin Triglycerides Cholesterol LDL Cholesterol, Calc HDL Cholesterol Lipase TSH Free T4 Urine Color Urine Appearance Urine pH Ur Specific [place] Urine Protein Urine Glucose (UA) Urine Ketones Urine Blood Urine Nitrite Ur Leukocyte Esterase Urine RBC Urine WBC Ur Squamous Epith Cells Urine Bacteria Hyaline Casts Urine Osmolality Ur Random Sodium Urine Opiates Screen Ur Buprenorphine Scrn Ur Oxycodone Screen Urine Methadone Screen Urine Fentanyl Screen Ur Barbiturates Screen Carbamazepine Ur Phencyclidine Scrn Ur Amphetamines Screen U Benzodiazepines Scrn Urine Cocaine Screen U Marijuana (THC) Screen COVID-19 ([facility]) COVID-19 Clin Com Influenza Type A (AMANDA) Influenza Type B (AMANDA) Influenza A & B Note TB Test (T-Spot) Com TB Test Nil Control TB Test Panel A TB Test Panel B TB Test Positive Cnt 11/08/24 11/08/24 11/08/24 11:07 16:51 21:23 WBC RBC Hgb Hct MCV MCH MCHC RDW Plt Count MPV Immature Gran % (Auto) Neut % (Auto) Lymph % (Auto) [place] % (Auto) Eos % (Auto) Baso % (Auto) Lymph # (Auto) [place] # (Auto) Eos # (Auto) Baso # (Auto) Abs Immat Gran (auto) Absolute Neuts (auto) Absolute Nucleated RBC Nucleated RBC % (auto) Smear Tech's Comments Hold Purple Top VBG pH VBG pCO2 VBG pO2 VBG HCO3 VBG O2 Saturation VBG Base Excess Sodium Potassium Chloride Carbon Dioxide Anion Gap BUN Creatinine Estim Creat Clear Calc Estimated GFR POC Glucose 245 H 115 255 H Random Glucose Estimat Average Glucose Hemoglobin A1c % Osmolality Lactic Acid Calcium Magnesium Iron TIBC % Saturation Unsat Iron Binding Total Bilirubin AST ALT Alkaline Phosphatase Total Protein Albumin Triglycerides Cholesterol LDL Cholesterol, Calc HDL Cholesterol Lipase TSH Free T4 Urine Color Urine Appearance Urine pH Ur Specific [place] Urine Protein Urine Glucose (UA) Urine Ketones Urine Blood Urine Nitrite Ur Leukocyte Esterase Urine RBC Urine WBC Ur Squamous Epith Cells Urine Bacteria Hyaline Casts Urine Osmolality Ur Random Sodium Urine Opiates Screen Ur Buprenorphine Scrn Ur Oxycodone Screen Urine Methadone Screen Urine Fentanyl Screen Ur Barbiturates Screen Carbamazepine Ur Phencyclidine Scrn Ur Amphetamines Screen U Benzodiazepines Scrn Urine Cocaine Screen U Marijuana (THC) Screen COVID-19 ([facility]) COVID-19 Clin Com Influenza Type A (AMANDA) Influenza Type B (AMANDA) Influenza A & B Note TB Test (T-Spot) Com TB Test Nil Control TB Test Panel A TB Test Panel B TB Test Positive Cnt 11/09/24 11/09/24 11/09/24 06:39 11:02 16:04 WBC RBC Hgb Hct MCV MCH MCHC RDW Plt Count MPV Immature Gran % (Auto) Neut % (Auto) Lymph % (Auto) [place] % (Auto) Eos % (Auto) Baso % (Auto) Lymph # (Auto) [place] # (Auto) Eos # (Auto) Baso # (Auto) Abs Immat Gran (auto) Absolute Neuts (auto) Absolute Nucleated RBC Nucleated RBC % (auto) Smear Tech's Comments Hold Purple Top VBG pH VBG pCO2 VBG pO2 VBG HCO3 VBG O2 Saturation VBG Base Excess Sodium Potassium Chloride Carbon Dioxide Anion Gap BUN Creatinine Estim Creat Clear Calc Estimated GFR POC Glucose 137 H 302 H 77 Random Glucose Estimat Average Glucose Hemoglobin A1c % Osmolality Lactic Acid Calcium Magnesium Iron TIBC % Saturation Unsat Iron Binding Total Bilirubin AST ALT Alkaline Phosphatase Total Protein Albumin Triglycerides Cholesterol LDL Cholesterol, Calc HDL Cholesterol Lipase TSH Free T4 Urine Color Urine Appearance Urine pH Ur Specific [place] Urine Protein Urine Glucose (UA) Urine Ketones Urine Blood Urine Nitrite Ur Leukocyte Esterase Urine RBC Urine WBC Ur Squamous Epith Cells Urine Bacteria Hyaline Casts Urine Osmolality Ur Random Sodium Urine Opiates Screen Ur Buprenorphine Scrn Ur Oxycodone Screen Urine Methadone Screen Urine Fentanyl Screen Ur Barbiturates Screen Carbamazepine Ur Phencyclidine Scrn Ur Amphetamines Screen U Benzodiazepines Scrn Urine Cocaine Screen U Marijuana (THC) Screen COVID-19 ([facility]) COVID-19 Clin Com Influenza Type A (AMANDA) Influenza Type B (AMANDA) Influenza A & B Note TB Test (T-Spot) Com TB Test Nil Control TB Test Panel A TB Test Panel B TB Test Positive [facility] 11/09/24 11/10/24 11/10/24 20:29 06:37 11:29 WBC RBC Hgb Hct MCV MCH MCHC RDW Plt Count MPV Immature Gran % (Auto) Neut % (Auto) Lymph % (Auto) [place] % (Auto) Eos % (Auto) Baso % (Auto) Lymph # (Auto) [place] # (Auto) Eos # (Auto) Baso # (Auto) Abs Immat Gran (auto) Absolute Neuts (auto) Absolute Nucleated RBC Nucleated RBC % (auto) Smear Tech's Comments Hold Purple Top VBG pH VBG pCO2 VBG pO2 VBG HCO3 VBG O2 Saturation VBG Base Excess Sodium Potassium Chloride Carbon Dioxide Anion Gap BUN Creatinine Estim Creat Clear Calc Estimated GFR POC Glucose 242 H 187 H 230 H Random Glucose Estimat Average Glucose Hemoglobin A1c % Osmolality Lactic Acid Calcium Magnesium Iron TIBC % Saturation Unsat Iron Binding Total Bilirubin AST ALT Alkaline Phosphatase Total Protein Albumin Triglycerides Cholesterol LDL Cholesterol, Calc HDL Cholesterol Lipase TSH Free T4 Urine Color Urine Appearance Urine pH Ur Specific [place] Urine Protein Urine Glucose (UA) Urine Ketones Urine Blood Urine Nitrite Ur Leukocyte Esterase Urine RBC Urine WBC Ur Squamous Epith Cells Urine Bacteria Hyaline Casts Urine Osmolality Ur Random Sodium Urine Opiates Screen Ur Buprenorphine Scrn Ur Oxycodone Screen Urine Methadone Screen Urine Fentanyl Screen Ur Barbiturates Screen Carbamazepine Ur Phencyclidine Scrn Ur Amphetamines Screen U Benzodiazepines Scrn Urine Cocaine Screen U Marijuana (THC) Screen COVID-19 ([facility]) COVID-19 Clin Com Influenza Type A (AMANDA) Influenza Type B (AMANDA) Influenza A & B Note TB Test (T-Spot) Com TB Test Nil Control TB Test Panel A TB Test Panel B TB Test Positive Cntrl 11/10/24 11/10/24 11/11/24 16:24 20:05 06:32 WBC RBC Hgb Hct MCV MCH MCHC RDW Plt Count MPV Immature Gran % (Auto) Neut % (Auto) Lymph % (Auto) [place] % (Auto) Eos % (Auto) Baso % (Auto) Lymph # (Auto) [place] # (Auto) Eos # (Auto) Baso # (Auto) Abs Immat Gran (auto) Absolute Neuts (auto) Absolute Nucleated RBC Nucleated RBC % (auto) Smear Tech's Comments Hold Purple Top VBG pH VBG pCO2 VBG pO2 VBG HCO3 VBG O2 Saturation VBG Base Excess Sodium Potassium Chloride Carbon Dioxide Anion Gap BUN Creatinine Estim Creat Clear Calc Estimated GFR POC Glucose 105 126 H 159 H Random Glucose Estimat Average Glucose Hemoglobin A1c % Osmolality Lactic Acid Calcium Magnesium Iron TIBC % Saturation Unsat Iron Binding Total Bilirubin AST ALT Alkaline Phosphatase Total Protein Albumin Triglycerides Cholesterol LDL Cholesterol, Calc HDL Cholesterol Lipase TSH Free T4 Urine Color Urine Appearance Urine pH Ur Specific [place] Urine Protein Urine Glucose (UA) Urine Ketones Urine Blood Urine Nitrite Ur Leukocyte Esterase Urine RBC Urine WBC Ur Squamous Epith Cells Urine Bacteria Hyaline Casts Urine Osmolality Ur Random Sodium Urine Opiates Screen Ur Buprenorphine Scrn Ur Oxycodone Screen Urine Methadone Screen Urine Fentanyl Screen Ur Barbiturates Screen Carbamazepine Ur Phencyclidine Scrn Ur Amphetamines Screen U Benzodiazepines Scrn Urine Cocaine Screen U Marijuana (THC) Screen COVID-19 ([facility]ESA) COVID-19 Clin Com Influenza Type A (AMANDA) Influenza Type B (AMANDA) Influenza A & B Note TB Test (T-Spot) Com TB Test Nil Control TB Test Panel A TB Test Panel B TB Test Positive Cntr 11/11/24 11/11/24 11/11/24 11:17 16:17 20:14 WBC RBC Hgb Hct MCV MCH MCHC RDW Plt Count MPV Immature Gran % (Auto) Neut % (Auto) Lymph % (Auto) [place] % (Auto) Eos % (Auto) Baso % (Auto) Lymph # (Auto) [place] # (Auto) Eos # (Auto) Baso # (Auto) Abs Immat Gran (auto) Absolute Neuts (auto) Absolute Nucleated RBC Nucleated RBC % (auto) Smear Tech's Comments Hold Purple Top VBG pH VBG pCO2 VBG pO2 VBG HCO3 VBG O2 Saturation VBG Base Excess Sodium Potassium Chloride Carbon Dioxide Anion Gap BUN Creatinine Estim Creat Clear Calc Estimated GFR POC Glucose 140 H 130 H 194 H Random Glucose Estimat Average Glucose Hemoglobin A1c % Osmolality Lactic Acid Calcium Magnesium Iron TIBC % Saturation Unsat Iron Binding Total Bilirubin AST ALT Alkaline Phosphatase Total Protein Albumin Triglycerides Cholesterol LDL Cholesterol, Calc HDL Cholesterol Lipase TSH Free T4 Urine Color Urine Appearance Urine pH Ur Specific [place] Urine Protein Urine Glucose (UA) Urine Ketones Urine Blood Urine Nitrite Ur Leukocyte Esterase Urine RBC Urine WBC Ur Squamous Epith Cells Urine Bacteria Hyaline Casts Urine Osmolality Ur Random Sodium Urine Opiates Screen Ur Buprenorphine Scrn Ur Oxycodone Screen Urine Methadone Screen Urine Fentanyl Screen Ur Barbiturates Screen Carbamazepine Ur Phencyclidine Scrn Ur Amphetamines Screen U Benzodiazepines Scrn Urine Cocaine Screen U Marijuana (THC) Screen COVID-19 (TRESA) COVID-19 Clin Com Influenza Type A (AMANDA) Influenza Type B (AMANDA) Influenza A & B Note TB Test (T-Spot) Com TB Test Nil Control TB Test Panel A TB Test Panel B TB Test Positive [facility] 11/12/24 11/12/24 11/12/24 06:32 11:19 16:20 WBC RBC Hgb Hct MCV MCH MCHC RDW Plt Count MPV Immature Gran % (Auto) Neut % (Auto) Lymph % (Auto) [place] % (Auto) Eos % (Auto) Baso % (Auto) Lymph # (Auto) [place] # (Auto) Eos # (Auto) Baso # (Auto) Abs Immat Gran (auto) Absolute Neuts (auto) Absolute Nucleated RBC Nucleated RBC % (auto) Smear Tech's Comments Hold Purple Top VBG pH VBG pCO2 VBG pO2 VBG HCO3 VBG O2 Saturation VBG Base Excess Sodium Potassium Chloride Carbon Dioxide Anion Gap BUN Creatinine Estim Creat Clear Calc Estimated GFR POC Glucose 171 H 121 H 170 H Random Glucose Estimat Average Glucose Hemoglobin A1c % Osmolality Lactic Acid Calcium Magnesium Iron TIBC % Saturation Unsat Iron Binding Total Bilirubin AST ALT Alkaline Phosphatase Total Protein Albumin Triglycerides Cholesterol LDL Cholesterol, Calc HDL Cholesterol Lipase TSH Free T4 Urine Color Urine Appearance Urine pH Ur Specific [place] Urine Protein Urine Glucose (UA) Urine Ketones Urine Blood Urine Nitrite Ur Leukocyte Esterase Urine RBC Urine WBC Ur Squamous Epith Cells Urine Bacteria Hyaline Casts Urine Osmolality Ur Random Sodium Urine Opiates Screen Ur Buprenorphine Scrn Ur Oxycodone Screen Urine Methadone Screen Urine Fentanyl Screen Ur Barbiturates Screen Carbamazepine Ur Phencyclidine Scrn Ur Amphetamines Screen U Benzodiazepines Scrn Urine Cocaine Screen U Marijuana (THC) Screen COVID-19 ([facility]ES[facility]) COVID-19 Clin Com Influenza Type A (AMANDA) Influenza Type B (AMANDA) Influenza A & B Note TB Test (T-Spot) Com TB Test Nil Control TB Test Panel A TB Test Panel B TB Test Positive [facility] 11/13/24 11/13/24 11/13/24 06:41 09:09 11:20 WBC RBC Hgb Hct MCV MCH MCHC RDW Plt Count MPV Immature Gran % (Auto) Neut % (Auto) Lymph % (Auto) [place] % (Auto) Eos % (Auto) Baso % (Auto) Lymph # (Auto) [place] # (Auto) Eos # (Auto) Baso # (Auto) Abs Immat Gran (auto) Absolute Neuts (auto) Absolute Nucleated RBC Nucleated RBC % (auto) Smear Tech's Comments Hold Purple Top VBG pH VBG pCO2 VBG pO2 VBG HCO3 VBG O2 Saturation VBG Base Excess Sodium Potassium Chloride Carbon Dioxide Anion Gap BUN Creatinine Estim Creat Clear Calc Estimated GFR POC Glucose 173 H 181 H Random Glucose Estimat Average Glucose Hemoglobin A1c % Osmolality Lactic Acid Calcium Magnesium Iron TIBC % Saturation Unsat Iron Binding Total Bilirubin AST ALT Alkaline Phosphatase Total Protein Albumin Triglycerides Cholesterol LDL Cholesterol, Calc HDL Cholesterol Lipase TSH Free T4 Urine Color Urine Appearance Urine pH Ur Specific [place] Urine Protein Urine Glucose (UA) Urine Ketones Urine Blood Urine Nitrite Ur Leukocyte Esterase Urine RBC Urine WBC Ur Squamous Epith Cells Urine Bacteria Hyaline Casts Urine Osmolality Ur Random Sodium Urine Opiates Screen Ur Buprenorphine Scrn Ur Oxycodone Screen Urine Methadone Screen Urine Fentanyl Screen Ur Barbiturates Screen Carbamazepine 9.1 Ur Phencyclidine Scrn Ur Amphetamines Screen U Benzodiazepines Scrn Urine Cocaine Screen U Marijuana (THC) Screen COVID-19 ([facility]ESA) COVID-19 Clin Com Influenza Type A (AMANDA) Influenza Type B (AMANDA) Influenza A & B Note TB Test (T-Spot) Com TB Test Nil Control TB Test Panel A TB Test Panel B TB Test Positive Cntrl 11/13/24 11/13/24 11/13/24 11:27 11:30 15:40 WBC RBC Hgb Hct MCV MCH MCHC RDW Plt Count MPV Immature Gran % (Auto) Neut % (Auto) Lymph % (Auto) [place] % (Auto) Eos % (Auto) Baso % (Auto) Lymph # (Auto) [place] # (Auto) Eos # (Auto) Baso # (Auto) Abs Immat Gran (auto) Absolute Neuts (auto) Absolute Nucleated RBC Nucleated RBC % (auto) Smear Tech's Comments Hold Purple Top SEE NOTE VBG pH VBG pCO2 VBG pO2 VBG HCO3 VBG O2 Saturation VBG Base Excess Sodium 127 L Potassium 4.8 Chloride 95 L Carbon Dioxide 24 Anion Gap 13 BUN 21 H Creatinine 0.85 Estim Creat Clear Calc 39.5 Estimated GFR > 60 POC Glucose Random Glucose 191 H Estimat Average Glucose Hemoglobin A1c % Osmolality 271 L Lactic Acid Calcium 9.4 Magnesium Iron TIBC % Saturation Unsat Iron Binding Total Bilirubin 0.5 AST 16 ALT 21 Alkaline Phosphatase 68 Total Protein 7.2 Albumin 4.6 Triglycerides Cholesterol LDL Cholesterol, Calc HDL Cholesterol Lipase TSH Free T4 Urine Color Urine Appearance Urine pH Ur Specific [place] Urine Protein Urine Glucose (UA) Urine Ketones Urine Blood Urine Nitrite Ur Leukocyte Esterase Urine RBC Urine WBC Ur Squamous Epith Cells Urine Bacteria Hyaline Casts Urine Osmolality Ur Random Sodium Urine Opiates Screen Ur Buprenorphine Scrn Ur Oxycodone Screen Urine Methadone Screen Urine Fentanyl Screen Ur Barbiturates Screen Carbamazepine Ur Phencyclidine Scrn Ur Amphetamines Screen U Benzodiazepines Scrn Urine Cocaine Screen U Marijuana (THC) Screen COVID-19 ([facility]) COVID-19 Clin Com Influenza Type A (AMANDA) Influenza Type B (AMANDA) Influenza A & B Note TB Test (T-Spot) Com TB Test Nil Control TB Test Panel A TB Test Panel B TB Test Positive Cnt 11/13/24 11/13/24 11/13/24 16:06 17:02 20:40 WBC RBC Hgb Hct MCV MCH MCHC RDW Plt Count MPV Immature Gran % (Auto) Neut % (Auto) Lymph % (Auto) [place] % (Auto) Eos % (Auto) Baso % (Auto) Lymph # (Auto) [place] # (Auto) Eos # (Auto) Baso # (Auto) Abs Immat Gran (auto) Absolute Neuts (auto) Absolute Nucleated RBC Nucleated RBC % (auto) Smear Tech's Comments Hold Purple Top VBG pH VBG pCO2 VBG pO2 VBG HCO3 VBG O2 Saturation VBG Base Excess Sodium Potassium Chloride Carbon Dioxide Anion Gap BUN Creatinine Estim Creat Clear Calc Estimated GFR POC Glucose 177 H 179 H Random Glucose Estimat Average Glucose Hemoglobin A1c % Osmolality Lactic Acid Calcium Magnesium Iron TIBC % Saturation Unsat Iron Binding Total Bilirubin AST ALT Alkaline Phosphatase Total Protein Albumin Triglycerides Cholesterol LDL Cholesterol, Calc HDL Cholesterol Lipase TSH Free T4 Urine Color Urine Appearance Urine pH Ur Specific [place] Urine Protein Urine Glucose (UA) Urine Ketones Urine Blood Urine Nitrite Ur Leukocyte Esterase Urine RBC Urine WBC Ur Squamous Epith Cells Urine Bacteria Hyaline Casts Urine Osmolality 485 Ur Random Sodium 41.0 Urine Opiates Screen Ur Buprenorphine Scrn Ur Oxycodone Screen Urine Methadone Screen Urine Fentanyl Screen Ur Barbiturates Screen Carbamazepine Ur Phencyclidine Scrn Ur Amphetamines Screen U Benzodiazepines Scrn Urine Cocaine Screen U Marijuana (THC) Screen COVID-19 ([facility]ES[facility]) COVID-19 Clin Com Influenza Type A (AMANDA) Influenza Type B (AMANDA) Influenza A & B Note TB Test (T-Spot) Com TB Test Nil Control TB Test Panel A TB Test Panel B TB Test Positive [facility] 11/14/24 11/14/24 11/14/24 06:25 07:19 11:34 WBC RBC Hgb Hct MCV MCH MCHC RDW Plt Count MPV Immature Gran % (Auto) Neut % (Auto) Lymph % (Auto) [place] % (Auto) Eos % (Auto) Baso % (Auto) Lymph # (Auto) [place] # (Auto) Eos # (Auto) Baso # (Auto) Abs Immat Gran (auto) Absolute Neuts (auto) Absolute Nucleated RBC Nucleated RBC % (auto) Smear Tech's Comments Hold Purple Top VBG pH VBG pCO2 VBG pO2 VBG HCO3 VBG O2 Saturation VBG Base Excess Sodium 132 L Potassium 5.0 Chloride 97 Carbon Dioxide 27 Anion Gap 13 BUN 26 H Creatinine 0.93 Estim Creat Clear Calc 36.1 Estimated GFR 59 POC Glucose 170 H 132 H Random Glucose 193 H Estimat Average Glucose Hemoglobin A1c % Osmolality Lactic Acid Calcium 9.5 Magnesium Iron TIBC % Saturation Unsat Iron Binding Total Bilirubin AST ALT Alkaline Phosphatase Total Protein Albumin Triglycerides Cholesterol LDL Cholesterol, Calc HDL Cholesterol Lipase TSH Free T4 Urine Color Urine Appearance Urine pH Ur Specific [place] Urine Protein Urine Glucose (UA) Urine Ketones Urine Blood Urine Nitrite Ur Leukocyte Esterase Urine RBC Urine WBC Ur Squamous Epith Cells Urine Bacteria Hyaline Casts Urine Osmolality Ur Random Sodium Urine Opiates Screen Ur Buprenorphine Scrn Ur Oxycodone Screen Urine Methadone Screen Urine Fentanyl Screen Ur Barbiturates Screen Carbamazepine Ur Phencyclidine Scrn Ur Amphetamines Screen U Benzodiazepines Scrn Urine Cocaine Screen U Marijuana (THC) Screen COVID-19 (TRESA) COVID-19 Clin Com Influenza Type A (AMANDA) Influenza Type B (AMANDA) Influenza A & B Note TB Test (T-Spot) Com TB Test Nil Control TB Test Panel A TB Test Panel B TB Test Positive [facility] 11/14/24 11/14/24 11/15/24 15:59 20:36 06:24 WBC RBC Hgb Hct MCV MCH MCHC RDW Plt Count MPV Immature Gran % (Auto) Neut % (Auto) Lymph % (Auto) [place] % (Auto) Eos % (Auto) Baso % (Auto) Lymph # (Auto) [place] # (Auto) Eos # (Auto) Baso # (Auto) Abs Immat Gran (auto) Absolute Neuts (auto) Absolute Nucleated RBC Nucleated RBC % (auto) Smear Tech's Comments Hold Purple Top VBG pH VBG pCO2 VBG pO2 VBG HCO3 VBG O2 Saturation VBG Base Excess Sodium Potassium Chloride Carbon Dioxide Anion Gap BUN Creatinine Estim Creat Clear Calc Estimated GFR POC Glucose 199 H 98 199 H Random Glucose Estimat Average Glucose Hemoglobin A1c % Osmolality Lactic Acid Calcium Magnesium Iron TIBC % Saturation Unsat Iron Binding Total Bilirubin AST ALT Alkaline Phosphatase Total Protein Albumin Triglycerides Cholesterol LDL Cholesterol, Calc HDL Cholesterol Lipase TSH Free T4 Urine Color Urine Appearance Urine pH Ur Specific [place] Urine Protein Urine Glucose (UA) Urine Ketones Urine Blood Urine Nitrite Ur Leukocyte Esterase Urine RBC Urine WBC Ur Squamous Epith Cells Urine Bacteria Hyaline Casts Urine Osmolality Ur Random Sodium Urine Opiates Screen Ur Buprenorphine Scrn Ur Oxycodone Screen Urine Methadone Screen Urine Fentanyl Screen Ur Barbiturates Screen Carbamazepine Ur Phencyclidine Scrn Ur Amphetamines Screen U Benzodiazepines Scrn Urine Cocaine Screen U Marijuana (THC) Screen COVID-19 (TRESA) COVID-19 Clin Com Influenza Type A (AMANDA) Influenza Type B (AMANDA) Influenza A & B Note TB Test (T-Spot) Com TB Test Nil Control TB Test Panel A TB Test Panel B TB Test Positive Cntrl 11/15/24 11/15/24 11/15/24 11:35 16:20 20:49 WBC RBC Hgb Hct MCV MCH MCHC RDW Plt Count MPV Immature Gran % (Auto) Neut % (Auto) Lymph % (Auto) [place] % (Auto) Eos % (Auto) Baso % (Auto) Lymph # (Auto) [place] # (Auto) Eos # (Auto) Baso # (Auto) Abs Immat Gran (auto) Absolute Neuts (auto) Absolute Nucleated RBC Nucleated RBC % (auto) Smear Tech's Comments Hold Purple Top VBG pH VBG pCO2 VBG pO2 VBG HCO3 VBG O2 Saturation VBG Base Excess Sodium Potassium Chloride Carbon Dioxide Anion Gap BUN Creatinine Estim Creat Clear Calc Estimated GFR POC Glucose 155 H 143 H 138 H Random Glucose Estimat Average Glucose Hemoglobin A1c % Osmolality Lactic Acid Calcium Magnesium Iron TIBC % Saturation Unsat Iron Binding Total Bilirubin AST ALT Alkaline Phosphatase Total Protein Albumin Triglycerides Cholesterol LDL Cholesterol, Calc HDL Cholesterol Lipase TSH Free T4 Urine Color Urine Appearance Urine pH Ur Specific [place] Urine Protein Urine Glucose (UA) Urine Ketones Urine Blood Urine Nitrite Ur Leukocyte Esterase Urine RBC Urine WBC Ur Squamous Epith Cells Urine Bacteria Hyaline Casts Urine Osmolality Ur Random Sodium Urine Opiates Screen Ur Buprenorphine Scrn Ur Oxycodone Screen Urine Methadone Screen Urine Fentanyl Screen Ur Barbiturates Screen Carbamazepine Ur Phencyclidine Scrn Ur Amphetamines Screen U Benzodiazepines Scrn Urine Cocaine Screen U Marijuana (THC) Screen COVID-19 (TRESA) COVID-19 Clin Com Influenza Type A (AMANDA) Influenza Type B (AMANDA) Influenza A & B Note TB Test (T-Spot) Com TB Test Nil Control TB Test Panel A TB Test Panel B TB Test Positive [facility] 11/16/24 11/16/24 11/16/24 06:35 11:24 13:55 WBC RBC Hgb Hct MCV MCH MCHC RDW Plt Count MPV Immature Gran % (Auto) Neut % (Auto) Lymph % (Auto) [place] % (Auto) Eos % (Auto) Baso % (Auto) Lymph # (Auto) [place] # (Auto) Eos # (Auto) Baso # (Auto) Abs Immat Gran (auto) Absolute Neuts (auto) Absolute Nucleated RBC Nucleated RBC % (auto) Smear Tech's Comments Hold Purple Top VBG pH VBG pCO2 VBG pO2 VBG HCO3 VBG O2 Saturation VBG Base Excess Sodium 134 L Potassium 4.7 Chloride 99 Carbon Dioxide 25 Anion Gap 15 BUN 21 H Creatinine 0.87 Estim Creat Clear Calc 38.7 Estimated GFR > 60 POC Glucose 192 H 152 H Random Glucose 58 L* Estimat Average Glucose Hemoglobin A1c % Osmolality Lactic Acid Calcium 9.6 Magnesium Iron TIBC % Saturation Unsat Iron Binding Total Bilirubin AST ALT Alkaline Phosphatase Total Protein Albumin Triglycerides Cholesterol LDL Cholesterol, Calc HDL Cholesterol Lipase TSH Free T4 Urine Color Urine Appearance Urine pH Ur Specific [place] Urine Protein Urine Glucose (UA) Urine Ketones Urine Blood Urine Nitrite Ur Leukocyte Esterase Urine RBC Urine WBC Ur Squamous Epith Cells Urine Bacteria Hyaline Casts Urine Osmolality Ur Random Sodium Urine Opiates Screen Ur Buprenorphine Scrn Ur Oxycodone Screen Urine Methadone Screen Urine Fentanyl Screen Ur Barbiturates Screen Carbamazepine Ur Phencyclidine Scrn Ur Amphetamines Screen U Benzodiazepines Scrn Urine Cocaine Screen U Marijuana (THC) Screen COVID-19 (TRESA) COVID-19 Clin Com Influenza Type A (AMANDA) Influenza Type B (AMANDA) Influenza A & B Note TB Test (T-Spot) Com TB Test Nil Control TB Test Panel A TB Test Panel B TB Test Positive [facility] 11/16/24 11/16/24 11/16/24 14:34 16:22 20:02 WBC RBC Hgb Hct MCV MCH MCHC RDW Plt Count MPV Immature Gran % (Auto) Neut % (Auto) Lymph % (Auto) [place] % (Auto) Eos % (Auto) Baso % (Auto) Lymph # (Auto) [place] # (Auto) Eos # (Auto) Baso # (Auto) Abs Immat Gran (auto) Absolute Neuts (auto) Absolute Nucleated RBC Nucleated RBC % (auto) Smear Tech's Comments Hold Purple Top VBG pH VBG pCO2 VBG pO2 VBG HCO3 VBG O2 Saturation VBG Base Excess Sodium Potassium Chloride Carbon Dioxide Anion Gap BUN Creatinine Estim Creat Clear Calc Estimated GFR POC Glucose 69 126 H 141 H Random Glucose Estimat Average Glucose Hemoglobin A1c % Osmolality Lactic Acid Calcium Magnesium Iron TIBC % Saturation Unsat Iron Binding Total Bilirubin AST ALT Alkaline Phosphatase Total Protein Albumin Triglycerides Cholesterol LDL Cholesterol, Calc HDL Cholesterol Lipase TSH Free T4 Urine Color Urine Appearance Urine pH Ur Specific [place] Urine Protein Urine Glucose (UA) Urine Ketones Urine Blood Urine Nitrite Ur Leukocyte Esterase Urine RBC Urine WBC Ur Squamous Epith Cells Urine Bacteria Hyaline Casts Urine Osmolality Ur Random Sodium Urine Opiates Screen Ur Buprenorphine Scrn Ur Oxycodone Screen Urine Methadone Screen Urine Fentanyl Screen Ur Barbiturates Screen Carbamazepine Ur Phencyclidine Scrn Ur Amphetamines Screen U Benzodiazepines Scrn Urine Cocaine Screen U Marijuana (THC) Screen COVID-19 (TRESA) COVID-19 Clin Com Influenza Type A (AMANDA) Influenza Type B (AMANDA) Influenza A & B Note TB Test (T-Spot) Com TB Test Nil Control TB Test Panel A TB Test Panel B TB Test Positive Cntrl 11/17/24 11/17/24 11/17/24 06:32 11:12 14:40 WBC RBC Hgb Hct MCV MCH MCHC RDW Plt Count MPV Immature Gran % (Auto) Neut % (Auto) Lymph % (Auto) [place] % (Auto) Eos % (Auto) Baso % (Auto) Lymph # (Auto) [place] # (Auto) Eos # (Auto) Baso # (Auto) Abs Immat Gran (auto) Absolute Neuts (auto) Absolute Nucleated RBC Nucleated RBC % (auto) Smear Tech's Comments Hold Purple Top VBG pH VBG pCO2 VBG pO2 VBG HCO3 VBG O2 Saturation VBG Base Excess Sodium Potassium Chloride Carbon Dioxide Anion Gap BUN Creatinine Estim Creat Clear Calc Estimated GFR POC Glucose 177 H 184 H 149 H Random Glucose Estimat Average Glucose Hemoglobin A1c % Osmolality Lactic Acid Calcium Magnesium Iron TIBC % Saturation Unsat Iron Binding Total Bilirubin AST ALT Alkaline Phosphatase Total Protein Albumin Triglycerides Cholesterol LDL Cholesterol, Calc HDL Cholesterol Lipase TSH Free T4 Urine Color Urine Appearance Urine pH Ur Specific [place] Urine Protein Urine Glucose (UA) Urine Ketones Urine Blood Urine Nitrite Ur Leukocyte Esterase Urine RBC Urine WBC Ur Squamous Epith Cells Urine Bacteria Hyaline Casts Urine Osmolality Ur Random Sodium Urine Opiates Screen Ur Buprenorphine Scrn Ur Oxycodone Screen Urine Methadone Screen Urine Fentanyl Screen Ur Barbiturates Screen Carbamazepine Ur Phencyclidine Scrn Ur Amphetamines Screen U Benzodiazepines Scrn Urine Cocaine Screen U Marijuana (THC) Screen COVID-19 ([facility]ESA) COVID-19 Clin Com Influenza Type A (AMANDA) Influenza Type B (AMANDA) Influenza A & B Note TB Test (T-Spot) Com TB Test Nil Control TB Test Panel A TB Test Panel B TB Test Positive [facility] 11/17/24 11/18/24 11/18/24 16:18 06:08 11:15 WBC RBC Hgb Hct MCV MCH MCHC RDW Plt Count MPV Immature Gran % (Auto) Neut % (Auto) Lymph % (Auto) [place] % (Auto) Eos % (Auto) Baso % (Auto) Lymph # (Auto) [place] # (Auto) Eos # (Auto) Baso # (Auto) Abs Immat Gran (auto) Absolute Neuts (auto) Absolute Nucleated RBC Nucleated RBC % (auto) Smear Tech's Comments Hold Purple Top VBG pH VBG pCO2 VBG pO2 VBG HCO3 VBG O2 Saturation VBG Base Excess Sodium Potassium Chloride Carbon Dioxide Anion Gap BUN Creatinine Estim Creat Clear Calc Estimated GFR POC Glucose 119 H 192 H 127 H Random Glucose Estimat Average Glucose Hemoglobin A1c % Osmolality Lactic Acid Calcium Magnesium Iron TIBC % Saturation Unsat Iron Binding Total Bilirubin AST ALT Alkaline Phosphatase Total Protein Albumin Triglycerides Cholesterol LDL Cholesterol, Calc HDL Cholesterol Lipase TSH Free T4 Urine Color Urine Appearance Urine pH Ur Specific [place] Urine Protein Urine Glucose (UA) Urine Ketones Urine Blood Urine Nitrite Ur Leukocyte Esterase Urine RBC Urine WBC Ur Squamous Epith Cells Urine Bacteria Hyaline Casts Urine Osmolality Ur Random Sodium Urine Opiates Screen Ur Buprenorphine Scrn Ur Oxycodone Screen Urine Methadone Screen Urine Fentanyl Screen Ur Barbiturates Screen Carbamazepine Ur Phencyclidine Scrn Ur Amphetamines Screen U Benzodiazepines Scrn Urine Cocaine Screen U Marijuana (THC) Screen COVID-19 ([facility]ESA) COVID-19 Clin Com Influenza Type A (AMANDA) Influenza Type B (AMANDA) Influenza A & B Note TB Test (T-Spot) Com TB Test Nil Control TB Test Panel A TB Test Panel B TB Test Positive [facility] 11/18/24 11/18/24 11/18/24 13:33 16:18 21:19 WBC RBC Hgb Hct MCV MCH MCHC RDW Plt Count MPV Immature Gran % (Auto) Neut % (Auto) Lymph % (Auto) [place] % (Auto) Eos % (Auto) Baso % (Auto) Lymph # (Auto) [place] # (Auto) Eos # (Auto) Baso # (Auto) Abs Immat Gran (auto) Absolute Neuts (auto) Absolute Nucleated RBC Nucleated RBC % (auto) Smear Tech's Comments Hold Purple Top VBG pH VBG pCO2 VBG pO2 VBG HCO3 VBG O2 Saturation VBG Base Excess Sodium 137 Potassium 4.9 Chloride 105 Carbon Dioxide 25 Anion Gap 12 BUN 27 H Creatinine 1.03 Estim Creat Clear Calc 32.6 Estimated GFR 52 POC Glucose 110 154 H Random Glucose 81 Estimat Average Glucose Hemoglobin A1c % Osmolality Lactic Acid Calcium 9.1 Magnesium Iron TIBC % Saturation Unsat Iron Binding Total Bilirubin 0.3 AST 18 ALT 26 Alkaline Phosphatase 67 Total Protein 7.1 Albumin 4.4 Triglycerides Cholesterol LDL Cholesterol, Calc HDL Cholesterol Lipase TSH Free T4 Urine Color Urine Appearance Urine pH Ur Specific [place] Urine Protein Urine Glucose (UA) Urine Ketones Urine Blood Urine Nitrite Ur Leukocyte Esterase Urine RBC Urine WBC Ur Squamous Epith Cells Urine Bacteria Hyaline Casts Urine Osmolality Ur Random Sodium Urine Opiates Screen Ur Buprenorphine Scrn Ur Oxycodone Screen Urine Methadone Screen Urine Fentanyl Screen Ur Barbiturates Screen Carbamazepine Ur Phencyclidine Scrn Ur Amphetamines Screen U Benzodiazepines Scrn Urine Cocaine Screen U Marijuana (THC) Screen COVID-19 ([facility]ESA) COVID-19 Clin Com Influenza Type A (AMANDA) Influenza Type B (AMANDA) Influenza A & B Note TB Test (T-Spot) Com TB Test Nil Control TB Test Panel A TB Test Panel B TB Test Positive Cntr 11/19/24 11/19/24 11/19/24 06:30 11:23 15:59 WBC RBC Hgb Hct MCV MCH MCHC RDW Plt Count MPV Immature Gran % (Auto) Neut % (Auto) Lymph % (Auto) [place] % (Auto) Eos % (Auto) Baso % (Auto) Lymph # (Auto) [place] # (Auto) Eos # (Auto) Baso # (Auto) Abs Immat Gran (auto) Absolute Neuts (auto) Absolute Nucleated RBC Nucleated RBC % (auto) Smear Tech's Comments Hold Purple Top VBG pH VBG pCO2 VBG pO2 VBG HCO3 VBG O2 Saturation VBG Base Excess Sodium Potassium Chloride Carbon Dioxide Anion Gap BUN Creatinine Estim Creat Clear Calc Estimated GFR POC Glucose 178 H 157 H 110 Random Glucose Estimat Average Glucose Hemoglobin A1c % Osmolality Lactic Acid Calcium Magnesium Iron TIBC % Saturation Unsat Iron Binding Total Bilirubin AST ALT Alkaline Phosphatase Total Protein Albumin Triglycerides Cholesterol LDL Cholesterol, Calc HDL Cholesterol Lipase TSH Free T4 Urine Color Urine Appearance Urine pH Ur Specific [place] Urine Protein Urine Glucose (UA) Urine Ketones Urine Blood Urine Nitrite Ur Leukocyte Esterase Urine RBC Urine WBC Ur Squamous Epith Cells Urine Bacteria Hyaline Casts Urine Osmolality Ur Random Sodium Urine Opiates Screen Ur Buprenorphine Scrn Ur Oxycodone Screen Urine Methadone Screen Urine Fentanyl Screen Ur Barbiturates Screen Carbamazepine Ur Phencyclidine Scrn Ur Amphetamines Screen U Benzodiazepines Scrn Urine Cocaine Screen U Marijuana (THC) Screen COVID-19 ([facility]ESA) COVID-19 Clin Com Influenza Type A (AMANDA) Influenza Type B (AMANDA) Influenza A & B Note TB Test (T-Spot) Com TB Test Nil Control TB Test Panel A TB Test Panel B TB Test Positive Cntrl 11/19/24 11/20/24 11/20/24 19:50 06:36 11:02 WBC RBC Hgb Hct MCV MCH MCHC RDW Plt Count MPV Immature Gran % (Auto) Neut % (Auto) Lymph % (Auto) [place] % (Auto) Eos % (Auto) Baso % (Auto) Lymph # (Auto) [place] # (Auto) Eos # (Auto) Baso # (Auto) Abs Immat Gran (auto) Absolute Neuts (auto) Absolute Nucleated RBC Nucleated RBC % (auto) Smear Tech's Comments Hold Purple Top VBG pH VBG pCO2 VBG pO2 VBG HCO3 VBG O2 Saturation VBG Base Excess Sodium 137 Potassium 4.7 Chloride 102 Carbon Dioxide 27 Anion Gap 13 BUN 23 H Creatinine 0.99 Estim Creat Clear Calc 34.0 Estimated GFR 55 POC Glucose 205 H 165 H Random Glucose 129 H Estimat Average Glucose 154 Hemoglobin A1c % 7.0 H Osmolality Lactic Acid Calcium 9.5 Magnesium Iron TIBC % Saturation Unsat Iron Binding Total Bilirubin AST ALT Alkaline Phosphatase Total Protein Albumin Triglycerides Cholesterol LDL Cholesterol, Calc HDL Cholesterol Lipase TSH Free T4 Urine Color Urine Appearance Urine pH Ur Specific [place] Urine Protein Urine Glucose (UA) Urine Ketones Urine Blood Urine Nitrite Ur Leukocyte Esterase Urine RBC Urine WBC Ur Squamous Epith Cells Urine Bacteria Hyaline Casts Urine Osmolality Ur Random Sodium Urine Opiates Screen Ur Buprenorphine Scrn Ur Oxycodone Screen Urine Methadone Screen Urine Fentanyl Screen Ur Barbiturates Screen Carbamazepine Ur Phencyclidine Scrn Ur Amphetamines Screen U Benzodiazepines Scrn Urine Cocaine Screen U Marijuana (THC) Screen COVID-19 (TRESA) COVID-19 Clin Com Influenza Type A (AMANDA) Influenza Type B (AMANDA) Influenza A & B Note TB Test (T-Spot) Com TB Test Nil Control TB Test Panel A TB Test Panel B [facility] 11/20/[facility] 11/20/24 11/20/24 11:33 16:23 20:46 WBC RBC Hgb Hct MCV MCH MCHC RDW Plt Count MPV Immature Gran % (Auto) Neut % (Auto) Lymph % (Auto) [place] % (Auto) Eos % (Auto) Baso % (Auto) Lymph # (Auto) [place] # (Auto) Eos # (Auto) Baso # (Auto) Abs Immat Gran (auto) Absolute Neuts (auto) Absolute Nucleated RBC Nucleated RBC % (auto) Smear Tech's Comments Hold Purple Top VBG pH VBG pCO2 VBG pO2 VBG HCO3 VBG O2 Saturation VBG Base Excess Sodium Potassium Chloride Carbon Dioxide Anion Gap BUN Creatinine Estim Creat Clear Calc Estimated GFR POC Glucose 106 202 H 162 H Random Glucose Estimat Average Glucose Hemoglobin A1c % Osmolality Lactic Acid Calcium Magnesium Iron TIBC % Saturation Unsat Iron Binding Total Bilirubin AST ALT Alkaline Phosphatase Total Protein Albumin Triglycerides Cholesterol LDL Cholesterol, Calc HDL Cholesterol Lipase TSH Free T4 Urine Color Urine Appearance Urine pH Ur Specific [place] Urine Protein Urine Glucose (UA) Urine Ketones Urine Blood Urine Nitrite Ur Leukocyte Esterase Urine RBC Urine WBC Ur Squamous Epith Cells Urine Bacteria Hyaline Casts Urine Osmolality Ur Random Sodium Urine Opiates Screen Ur Buprenorphine Scrn Ur Oxycodone Screen Urine Methadone Screen Urine Fentanyl Screen Ur Barbiturates Screen Carbamazepine Ur Phencyclidine Scrn Ur Amphetamines Screen U Benzodiazepines Scrn Urine Cocaine Screen U Marijuana (THC) Screen COVID-19 ([facility]ESA) COVID-19 Clin Com Influenza Type A (AMANDA) Influenza Type B (AMANDA) Influenza A & B Note TB Test (T-Spot) Com TB Test Nil Control TB Test Panel A TB Test Panel B TB Test Positive Cntr 11/21/24 11/21/24 11/21/24 06:31 11:24 16:25 WBC RBC Hgb Hct MCV MCH MCHC RDW Plt Count MPV Immature Gran % (Auto) Neut % (Auto) Lymph % (Auto) [place] % (Auto) Eos % (Auto) Baso % (Auto) Lymph # (Auto) [place] # (Auto) Eos # (Auto) Baso # (Auto) Abs Immat Gran (auto) Absolute Neuts (auto) Absolute Nucleated RBC Nucleated RBC % (auto) Smear Tech's Comments Hold Purple Top VBG pH VBG pCO2 VBG pO2 VBG HCO3 VBG O2 Saturation VBG Base Excess Sodium Potassium Chloride Carbon Dioxide Anion Gap BUN Creatinine Estim Creat Clear Calc Estimated GFR POC Glucose 189 H 196 H 110 Random Glucose Estimat Average Glucose Hemoglobin A1c % Osmolality Lactic Acid Calcium Magnesium Iron TIBC % Saturation Unsat Iron Binding Total Bilirubin AST ALT Alkaline Phosphatase Total Protein Albumin Triglycerides Cholesterol LDL Cholesterol, Calc HDL Cholesterol Lipase TSH Free T4 Urine Color Urine Appearance Urine pH Ur Specific [place] Urine Protein Urine Glucose (UA) Urine Ketones Urine Blood Urine Nitrite Ur Leukocyte Esterase Urine RBC Urine WBC Ur Squamous Epith Cells Urine Bacteria Hyaline Casts Urine Osmolality Ur Random Sodium Urine Opiates Screen Ur Buprenorphine Scrn Ur Oxycodone Screen Urine Methadone Screen Urine Fentanyl Screen Ur Barbiturates Screen Carbamazepine Ur Phencyclidine Scrn Ur Amphetamines Screen U Benzodiazepines Scrn Urine Cocaine Screen U Marijuana (THC) Screen COVID-19 ([facility]ES[facility]) COVID-19 Clin Com Influenza Type A (AMANDA) Influenza Type B (AMANDA) Influenza A & B Note TB Test (T-Spot) Com TB Test Nil Control TB Test Panel A TB Test Panel B TB Test Positive Cntrl 11/21/24 11/22/24 11/22/24 21:16 06:56 11:14 WBC RBC Hgb Hct MCV MCH MCHC RDW Plt Count MPV Immature Gran % (Auto) Neut % (Auto) Lymph % (Auto) [place] % (Auto) Eos % (Auto) Baso % (Auto) Lymph # (Auto) [place] # (Auto) Eos # (Auto) Baso # (Auto) Abs Immat Gran (auto) Absolute Neuts (auto) Absolute Nucleated RBC Nucleated RBC % (auto) Smear Tech's Comments Hold Purple Top VBG pH VBG pCO2 VBG pO2 VBG HCO3 VBG O2 Saturation VBG Base Excess Sodium Potassium Chloride Carbon Dioxide Anion Gap BUN Creatinine Estim Creat Clear Calc Estimated GFR POC Glucose 138 H 195 H 224 H Random Glucose Estimat Average Glucose Hemoglobin A1c % Osmolality Lactic Acid Calcium Magnesium Iron TIBC % Saturation Unsat Iron Binding Total Bilirubin AST ALT Alkaline Phosphatase Total Protein Albumin Triglycerides Cholesterol LDL Cholesterol, Calc HDL Cholesterol Lipase TSH Free T4 Urine Color Urine Appearance Urine pH Ur Specific [place] Urine Protein Urine Glucose (UA) Urine Ketones Urine Blood Urine Nitrite Ur Leukocyte Esterase Urine RBC Urine WBC Ur Squamous Epith Cells Urine Bacteria Hyaline Casts Urine Osmolality Ur Random Sodium Urine Opiates Screen Ur Buprenorphine Scrn Ur Oxycodone Screen Urine Methadone Screen Urine Fentanyl Screen Ur Barbiturates Screen Carbamazepine Ur Phencyclidine Scrn Ur Amphetamines Screen U Benzodiazepines Scrn Urine Cocaine Screen U Marijuana (THC) Screen COVID-19 ([facility]ESA) COVID-19 Clin Com Influenza Type A (AMANDA) Influenza Type B (AMANDA) Influenza A & B Note TB Test (T-Spot) Com TB Test Nil Control TB Test Panel A TB Test Panel B TB Test Positive Cntrl 11/22/24 11/22/24 11/23/24 16:28 21:06 06:14 WBC RBC Hgb Hct MCV MCH MCHC RDW Plt Count MPV Immature Gran % (Auto) Neut % (Auto) Lymph % (Auto) [place] % (Auto) Eos % (Auto) Baso % (Auto) Lymph # (Auto) [place] # (Auto) Eos # (Auto) Baso # (Auto) Abs Immat Gran (auto) Absolute Neuts (auto) Absolute Nucleated RBC Nucleated RBC % (auto) Smear Tech's Comments Hold Purple Top VBG pH VBG pCO2 VBG pO2 VBG HCO3 VBG O2 Saturation VBG Base Excess Sodium Potassium Chloride Carbon Dioxide Anion Gap BUN Creatinine Estim Creat Clear Calc Estimated GFR POC Glucose 129 H 94 191 H Random Glucose Estimat Average Glucose Hemoglobin A1c % Osmolality Lactic Acid Calcium Magnesium Iron TIBC % Saturation Unsat Iron Binding Total Bilirubin AST ALT Alkaline Phosphatase Total Protein Albumin Triglycerides Cholesterol LDL Cholesterol, Calc HDL Cholesterol Lipase TSH Free T4 Urine Color Urine Appearance Urine pH Ur Specific [place] Urine Protein Urine Glucose (UA) Urine Ketones Urine Blood Urine Nitrite Ur Leukocyte Esterase Urine RBC Urine WBC Ur Squamous Epith Cells Urine Bacteria Hyaline Casts Urine Osmolality Ur Random Sodium Urine Opiates Screen Ur Buprenorphine Scrn Ur Oxycodone Screen Urine Methadone Screen Urine Fentanyl Screen Ur Barbiturates Screen Carbamazepine Ur Phencyclidine Scrn Ur Amphetamines Screen U Benzodiazepines Scrn Urine Cocaine Screen U Marijuana (THC) Screen COVID-19 ([facility]ES[facility]) COVID-19 Clin Com Influenza Type A (AMANDA) Influenza Type B (AMANDA) Influenza A & B Note TB Test (T-Spot) Com TB Test Nil Control TB Test Panel A TB Test Panel B TB Test Positive [facility] 11/23/24 11/24/24 11/25/24 11:22 06:16 06:42 WBC RBC Hgb Hct MCV MCH MCHC RDW Plt Count MPV Immature Gran % (Auto) Neut % (Auto) Lymph % (Auto) [place] % (Auto) Eos % (Auto) Baso % (Auto) Lymph # (Auto) [place] # (Auto) Eos # (Auto) Baso # (Auto) Abs Immat Gran (auto) Absolute Neuts (auto) Absolute Nucleated RBC Nucleated RBC % (auto) Smear Tech's Comments Hold Purple Top VBG pH VBG pCO2 VBG pO2 VBG HCO3 VBG O2 Saturation VBG Base Excess Sodium Potassium Chloride Carbon Dioxide Anion Gap BUN Creatinine Estim Creat Clear Calc Estimated GFR POC Glucose 188 H 184 H 167 H Random Glucose Estimat Average Glucose Hemoglobin A1c % Osmolality Lactic Acid Calcium Magnesium Iron TIBC % Saturation Unsat Iron Binding Total Bilirubin AST ALT Alkaline Phosphatase Total Protein Albumin Triglycerides Cholesterol LDL Cholesterol, Calc HDL Cholesterol Lipase TSH Free T4 Urine Color Urine Appearance Urine pH Ur Specific [place] Urine Protein Urine Glucose (UA) Urine Ketones Urine Blood Urine Nitrite Ur Leukocyte Esterase Urine RBC Urine WBC Ur Squamous Epith Cells Urine Bacteria Hyaline Casts Urine Osmolality Ur Random Sodium Urine Opiates Screen Ur Buprenorphine Scrn Ur Oxycodone Screen Urine Methadone Screen Urine Fentanyl Screen Ur Barbiturates Screen Carbamazepine Ur Phencyclidine Scrn Ur Amphetamines Screen U Benzodiazepines Scrn Urine Cocaine Screen U Marijuana (THC) Screen COVID-19 (RTESA) COVID-19 Clin Com Influenza Type A (AMANDA) Influenza Type B (AMANDA) Influenza A & B Note TB Test (T-Spot) Com TB Test Nil Control TB Test Panel A TB Test Panel B TB Test Positive [facility] 11/26/24 11/27/24 11/28/24 06:23 06:32 06:13 WBC RBC Hgb Hct MCV MCH MCHC RDW Plt Count MPV Immature Gran % (Auto) Neut % (Auto) Lymph % (Auto) [place] % (Auto) Eos % (Auto) Baso % (Auto) Lymph # (Auto) [place] # (Auto) Eos # (Auto) Baso # (Auto) Abs Immat Gran (auto) Absolute Neuts (auto) Absolute Nucleated RBC Nucleated RBC % (auto) Smear Tech's Comments Hold Purple Top VBG pH VBG pCO2 VBG pO2 VBG HCO3 VBG O2 Saturation VBG Base Excess Sodium Potassium Chloride Carbon Dioxide Anion Gap BUN Creatinine Estim Creat Clear Calc Estimated GFR POC Glucose 166 H 167 H 159 H Random Glucose Estimat Average Glucose Hemoglobin A1c % Osmolality Lactic Acid Calcium Magnesium Iron TIBC % Saturation Unsat Iron Binding Total Bilirubin AST ALT Alkaline Phosphatase Total Protein Albumin Triglycerides Cholesterol LDL Cholesterol, Calc HDL Cholesterol Lipase TSH Free T4 Urine Color Urine Appearance Urine pH Ur Specific [place] Urine Protein Urine Glucose (UA) Urine Ketones Urine Blood Urine Nitrite Ur Leukocyte Esterase Urine RBC Urine WBC Ur Squamous Epith Cells Urine Bacteria Hyaline Casts Urine Osmolality Ur Random Sodium Urine Opiates Screen Ur Buprenorphine Scrn Ur Oxycodone Screen Urine Methadone Screen Urine Fentanyl Screen Ur Barbiturates Screen Carbamazepine Ur Phencyclidine Scrn Ur Amphetamines Screen U Benzodiazepines Scrn Urine Cocaine Screen U Marijuana (THC) Screen COVID-19 (TRESA) COVID-19 Clin Com Influenza Type A (AMANDA) Influenza Type B (AMANDA) Influenza A & B Note TB Test (T-Spot) Com TB Test Nil Control TB Test Panel A TB Test Panel B TB Test Positive Cntrl 11/29/24 11/30/24 12/01/24 06:16 06:16 06:37 WBC RBC Hgb Hct MCV MCH MCHC RDW Plt Count MPV Immature Gran % (Auto) Neut % (Auto) Lymph % (Auto) [place] % (Auto) Eos % (Auto) Baso % (Auto) Lymph # (Auto) [place] # (Auto) Eos # (Auto) Baso # (Auto) Abs Immat Gran (auto) Absolute Neuts (auto) Absolute Nucleated RBC Nucleated RBC % (auto) Smear Tech's Comments Hold Purple Top VBG pH VBG pCO2 VBG pO2 VBG HCO3 VBG O2 Saturation VBG Base Excess Sodium Potassium Chloride Carbon Dioxide Anion Gap BUN Creatinine Estim Creat Clear Calc Estimated GFR POC Glucose 156 H 136 H 129 H Random Glucose Estimat Average Glucose Hemoglobin A1c % Osmolality Lactic Acid Calcium Magnesium Iron TIBC % Saturation Unsat Iron Binding Total Bilirubin AST ALT Alkaline Phosphatase Total Protein Albumin Triglycerides Cholesterol LDL Cholesterol, Calc HDL Cholesterol Lipase TSH Free T4 Urine Color Urine Appearance Urine pH Ur Specific [place] Urine Protein Urine Glucose (UA) Urine Ketones Urine Blood Urine Nitrite Ur Leukocyte Esterase Urine RBC Urine WBC Ur Squamous Epith Cells Urine Bacteria Hyaline Casts Urine Osmolality Ur Random Sodium Urine Opiates Screen Ur Buprenorphine Scrn Ur Oxycodone Screen Urine Methadone Screen Urine Fentanyl Screen Ur Barbiturates Screen Carbamazepine Ur Phencyclidine Scrn Ur Amphetamines Screen U Benzodiazepines Scrn Urine Cocaine Screen U Marijuana (THC) Screen COVID-19 (TRESA) COVID-19 Clin Com Influenza Type A (AMANDA) Influenza Type B (AMANDA) Influenza A & B Note TB Test (T-Spot) Com TB Test Nil Control TB Test Panel A TB Test Panel B TB Test Positive [facility] 12/02/24 12/03/24 12/03/24 06:24 06:17 16:25 WBC RBC Hgb Hct MCV MCH MCHC RDW Plt Count MPV Immature Gran % (Auto) Neut % (Auto) Lymph % (Auto) [place] % (Auto) Eos % (Auto) Baso % (Auto) Lymph # (Auto) [place] # (Auto) Eos # (Auto) Baso # (Auto) Abs Immat Gran (auto) Absolute Neuts (auto) Absolute Nucleated RBC Nucleated RBC % (auto) Smear Tech's Comments Hold Purple Top VBG pH VBG pCO2 VBG pO2 VBG HCO3 VBG O2 Saturation VBG Base Excess Sodium Potassium Chloride Carbon Dioxide Anion Gap BUN Creatinine Estim Creat Clear Calc Estimated GFR POC Glucose 163 H 182 H 120 H Random Glucose Estimat Average Glucose Hemoglobin A1c % Osmolality Lactic Acid Calcium Magnesium Iron TIBC % Saturation Unsat Iron Binding Total Bilirubin AST ALT Alkaline Phosphatase Total Protein Albumin Triglycerides Cholesterol LDL Cholesterol, Calc HDL Cholesterol Lipase TSH Free T4 Urine Color Urine Appearance Urine pH Ur Specific [place] Urine Protein Urine Glucose (UA) Urine Ketones Urine Blood Urine Nitrite Ur Leukocyte Esterase Urine RBC Urine WBC Ur Squamous Epith Cells Urine Bacteria Hyaline Casts Urine Osmolality Ur Random Sodium Urine Opiates Screen Ur Buprenorphine Scrn Ur Oxycodone Screen Urine Methadone Screen Urine Fentanyl Screen Ur Barbiturates Screen Carbamazepine Ur Phencyclidine Scrn Ur Amphetamines Screen U Benzodiazepines Scrn Urine Cocaine Screen U Marijuana (THC) Screen COVID-19 (TRESA) COVID-19 Clin Com Influenza Type A (AMANDA) Influenza Type B (AMANDA) Influenza A & B Note TB Test (T-Spot) Com TB Test Nil Control TB Test Panel A TB Test Panel B TB Test Positive [facility] 12/04/24 12/05/24 12/06/24 05:52 06:00 05:54 WBC RBC Hgb Hct MCV MCH MCHC RDW Plt Count MPV Immature Gran % (Auto) Neut % (Auto) Lymph % (Auto) [place] % (Auto) Eos % (Auto) Baso % (Auto) Lymph # (Auto) [place] # (Auto) Eos # (Auto) Baso # (Auto) Abs Immat Gran (auto) Absolute Neuts (auto) Absolute Nucleated RBC Nucleated RBC % (auto) Smear Tech's Comments Hold Purple Top VBG pH VBG pCO2 VBG pO2 VBG HCO3 VBG O2 Saturation VBG Base Excess Sodium Potassium Chloride Carbon Dioxide Anion Gap BUN Creatinine Estim Creat Clear Calc Estimated GFR POC Glucose 161 H 185 H 206 H Random Glucose Estimat Average Glucose Hemoglobin A1c % Osmolality Lactic Acid Calcium Magnesium Iron TIBC % Saturation Unsat Iron Binding Total Bilirubin AST ALT Alkaline Phosphatase Total Protein Albumin Triglycerides Cholesterol LDL Cholesterol, Calc HDL Cholesterol Lipase TSH Free T4 Urine Color Urine Appearance Urine pH Ur Specific [place] Urine Protein Urine Glucose (UA) Urine Ketones Urine Blood Urine Nitrite Ur Leukocyte Esterase Urine RBC Urine WBC Ur Squamous Epith Cells Urine Bacteria Hyaline Casts Urine Osmolality Ur Random Sodium Urine Opiates Screen Ur Buprenorphine Scrn Ur Oxycodone Screen Urine Methadone Screen Urine Fentanyl Screen Ur Barbiturates Screen Carbamazepine Ur Phencyclidine Scrn Ur Amphetamines Screen U Benzodiazepines Scrn Urine Cocaine Screen U Marijuana (THC) Screen COVID-19 (TRESA) COVID-19 Clin Com Influenza Type A (AMANDA) Influenza Type B (AMANDA) Influenza A & B Note TB Test (T-Spot) Com TB Test Nil Control TB Test Panel A TB Test Panel B TB Test Positive Cntr 12/07/24 12/08/24 12/09/24 06:19 06:31 06:26 WBC RBC Hgb Hct MCV MCH MCHC RDW Plt Count MPV Immature Gran % (Auto) Neut % (Auto) Lymph % (Auto) [place] % (Auto) Eos % (Auto) Baso % (Auto) Lymph # (Auto) [place] # (Auto) Eos # (Auto) Baso # (Auto) Abs Immat Gran (auto) Absolute Neuts (auto) Absolute Nucleated RBC Nucleated RBC % (auto) Smear Tech's Comments Hold Purple Top VBG pH VBG pCO2 VBG pO2 VBG HCO3 VBG O2 Saturation VBG Base Excess Sodium Potassium Chloride Carbon Dioxide Anion Gap BUN Creatinine Estim Creat Clear Calc Estimated GFR POC Glucose 194 H 163 H 165 H Random Glucose Estimat Average Glucose Hemoglobin A1c % Osmolality Lactic Acid Calcium Magnesium Iron TIBC % Saturation Unsat Iron Binding Total Bilirubin AST ALT Alkaline Phosphatase Total Protein Albumin Triglycerides Cholesterol LDL Cholesterol, Calc HDL Cholesterol Lipase TSH Free T4 Urine Color Urine Appearance Urine pH Ur Specific [place] Urine Protein Urine Glucose (UA) Urine Ketones Urine Blood Urine Nitrite Ur Leukocyte Esterase Urine RBC Urine WBC Ur Squamous Epith Cells Urine Bacteria Hyaline Casts Urine Osmolality Ur Random Sodium Urine Opiates Screen Ur Buprenorphine Scrn Ur Oxycodone Screen Urine Methadone Screen Urine Fentanyl Screen Ur Barbiturates Screen Carbamazepine Ur Phencyclidine Scrn Ur Amphetamines Screen U Benzodiazepines Scrn Urine Cocaine Screen U Marijuana (THC) Screen COVID-19 (TRESA) COVID-19 Clin Com Influenza Type A (AMANDA) Influenza Type B (AMANDA) Influenza A & B Note TB Test (T-Spot) Com TB Test Nil Control TB Test Panel A TB Test Panel B TB Test Positive Cntrl 12/09/24 12/10/24 12/11/24 12:31 06:09 06:15 WBC RBC Hgb Hct MCV MCH MCHC RDW Plt Count MPV Immature Gran % (Auto) Neut % (Auto) Lymph % (Auto) [place] % (Auto) Eos % (Auto) Baso % (Auto) Lymph # (Auto) [place] # (Auto) Eos # (Auto) Baso # (Auto) Abs Immat Gran (auto) Absolute Neuts (auto) Absolute Nucleated RBC Nucleated RBC % (auto) Smear Tech's Comments Hold Purple Top VBG pH VBG pCO2 VBG pO2 VBG HCO3 VBG O2 Saturation VBG Base Excess Sodium Potassium Chloride Carbon Dioxide Anion Gap BUN Creatinine Estim Creat Clear Calc Estimated GFR POC Glucose 167 H 159 H Random Glucose Estimat Average Glucose Hemoglobin A1c % Osmolality Lactic Acid Calcium Magnesium Iron TIBC % Saturation Unsat Iron Binding Total Bilirubin AST ALT Alkaline Phosphatase Total Protein Albumin Triglycerides Cholesterol LDL Cholesterol, Calc HDL Cholesterol Lipase TSH Free T4 Urine Color Urine Appearance Urine pH Ur Specific [place] Urine Protein Urine Glucose (UA) Urine Ketones Urine Blood Urine Nitrite Ur Leukocyte Esterase Urine RBC Urine WBC Ur Squamous Epith Cells Urine Bacteria Hyaline Casts Urine Osmolality Ur Random Sodium Urine Opiates Screen Ur Buprenorphine Scrn Ur Oxycodone Screen Urine Methadone Screen Urine Fentanyl Screen Ur Barbiturates Screen Carbamazepine Ur Phencyclidine Scrn Ur Amphetamines Screen U Benzodiazepines Scrn Urine Cocaine Screen U Marijuana (THC) Screen COVID-19 ([facility]) COVID-19 Clin Com Influenza Type A (AMANDA) Influenza Type B (AMANDA) Influenza A & B Note TB Test (T-Spot) Com Negative TB Test Nil Control Passed TB Test Panel A 1 TB Test Panel B 0 TB Test Positive Cntrl Passed 12/12/24 12/13/24 12/13/24 06:24 06:14 12:13 WBC RBC Hgb Hct MCV MCH MCHC RDW Plt Count MPV Immature Gran % (Auto) Neut % (Auto) Lymph % (Auto) [place] % (Auto) Eos % (Auto) Baso % (Auto) Lymph # (Auto) [place] # (Auto) Eos # (Auto) Baso # (Auto) Abs Immat Gran (auto) Absolute Neuts (auto) Absolute Nucleated RBC Nucleated RBC % (auto) Smear Tech's Comments Hold Purple Top VBG pH VBG pCO2 VBG pO2 VBG HCO3 VBG O2 Saturation VBG Base Excess Sodium 135 Potassium 4.4 Chloride 103 Carbon Dioxide 20 L Anion Gap 16 BUN 32 H Creatinine 1.39 Estim Creat Clear Calc 24.1 Estimated GFR 37 POC Glucose 148 H 151 H Random Glucose 351 H* Estimat Average Glucose Hemoglobin A1c % Osmolality Lactic Acid Calcium 9.3 Magnesium Iron TIBC % Saturation Unsat Iron Binding Total Bilirubin AST ALT Alkaline Phosphatase Total Protein Albumin Triglycerides Cholesterol LDL Cholesterol, Calc HDL Cholesterol Lipase TSH Free T4 Urine Color Urine Appearance Urine pH Ur Specific [place] Urine Protein Urine Glucose (UA) Urine Ketones Urine Blood Urine Nitrite Ur Leukocyte Esterase Urine RBC Urine WBC Ur Squamous Epith Cells Urine Bacteria Hyaline Casts Urine Osmolality Ur Random Sodium Urine Opiates Screen Ur Buprenorphine Scrn Ur Oxycodone Screen Urine Methadone Screen Urine Fentanyl Screen Ur Barbiturates Screen Carbamazepine Ur Phencyclidine Scrn Ur Amphetamines Screen U Benzodiazepines Scrn Urine Cocaine Screen U Marijuana (THC) Screen COVID-19 ([facility]) COVID-19 Clin Com Influenza Type A (AMANDA) Influenza Type B (AMANDA) Influenza A & B Note TB Test (T-Spot) Com TB Test Nil Control TB Test Panel A TB Test Panel B TB Test Positive Cntrl 12/14/24 12/15/24 12/15/24 06:21 06:11 21:16 WBC RBC Hgb Hct MCV MCH MCHC RDW Plt Count MPV Immature Gran % (Auto) Neut % (Auto) Lymph % (Auto) [place] % (Auto) Eos % (Auto) Baso % (Auto) Lymph # (Auto) [place] # (Auto) Eos # (Auto) Baso # (Auto) Abs Immat Gran (auto) Absolute Neuts (auto) Absolute Nucleated RBC Nucleated RBC % (auto) Smear Tech's Comments Hold Purple Top VBG pH VBG pCO2 VBG pO2 VBG HCO3 VBG O2 Saturation VBG Base Excess Sodium Potassium Chloride Carbon Dioxide Anion Gap BUN Creatinine Estim Creat Clear Calc Estimated GFR POC Glucose 150 H 158 H 106 Random Glucose Estimat Average Glucose Hemoglobin A1c % Osmolality Lactic Acid Calcium Magnesium Iron TIBC % Saturation Unsat Iron Binding Total Bilirubin AST ALT Alkaline Phosphatase Total Protein Albumin Triglycerides Cholesterol LDL Cholesterol, Calc HDL Cholesterol Lipase TSH Free T4 Urine Color Urine Appearance Urine pH Ur Specific [place] Urine Protein Urine Glucose (UA) Urine Ketones Urine Blood Urine Nitrite Ur Leukocyte Esterase Urine RBC Urine WBC Ur Squamous Epith Cells Urine Bacteria Hyaline Casts Urine Osmolality Ur Random Sodium Urine Opiates Screen Ur Buprenorphine Scrn Ur Oxycodone Screen Urine Methadone Screen Urine Fentanyl Screen Ur Barbiturates Screen Carbamazepine Ur Phencyclidine Scrn Ur Amphetamines Screen U Benzodiazepines Scrn Urine Cocaine Screen U Marijuana (THC) Screen COVID-19 ([facility]) COVID-19 Clin Com Influenza Type A (AMANDA) Influenza Type B (AMANDA) Influenza A & B Note TB Test (T-Spot) Com TB Test Nil Control TB Test Panel A TB Test Panel B TB Test Positive Cntr 12/16/24 12/16/24 12/16/24 06:45 12:26 15:35 WBC RBC Hgb Hct MCV MCH MCHC RDW Plt Count MPV Immature Gran % (Auto) Neut % (Auto) Lymph % (Auto) [place] % (Auto) Eos % (Auto) Baso % (Auto) Lymph # (Auto) [place] # (Auto) Eos # (Auto) Baso # (Auto) Abs Immat Gran (auto) Absolute Neuts (auto) Absolute Nucleated RBC Nucleated RBC % (auto) Smear Tech's Comments Hold Purple Top VBG pH VBG pCO2 VBG pO2 VBG HCO3 VBG O2 Saturation VBG Base Excess Sodium Potassium Chloride Carbon Dioxide Anion Gap BUN Creatinine Estim Creat Clear Calc Estimated GFR POC Glucose 194 H Random Glucose Estimat Average Glucose Hemoglobin A1c % Osmolality Lactic Acid Calcium Magnesium Iron TIBC % Saturation Unsat Iron Binding Total Bilirubin AST ALT Alkaline Phosphatase Total Protein Albumin Triglycerides Cholesterol LDL Cholesterol, Calc HDL Cholesterol Lipase TSH Free T4 Urine Color Urine Appearance Urine pH Ur Specific [place] Urine Protein Urine Glucose (UA) Urine Ketones Urine Blood Urine Nitrite Ur Leukocyte Esterase Urine RBC Urine WBC Ur Squamous Epith Cells Urine Bacteria Hyaline Casts Urine Osmolality Ur Random Sodium Urine Opiates Screen Ur Buprenorphine Scrn Ur Oxycodone Screen Urine Methadone Screen Urine Fentanyl Screen Ur Barbiturates Screen Carbamazepine Ur Phencyclidine Scrn Ur Amphetamines Screen U Benzodiazepines Scrn Urine Cocaine Screen U Marijuana (THC) Screen COVID-19 ([facility]) Negative COVID-19 Clin Com See Note Influenza Type A (AMANDA) Negative Influenza Type B (AMANDA) Negative Influenza A & B Note See Note TB Test (T-Spot) Com TB Test Nil Control TB Test Panel A TB Test Panel B TB Test Positive Cntrl 12/16/24 12/17/24 12/19/24 20:01 19:13 10:21 WBC RBC Hgb Hct MCV MCH MCHC RDW Plt Count MPV Immature Gran % (Auto) Neut % (Auto) Lymph % (Auto) [place] % (Auto) Eos % (Auto) Baso % (Auto) Lymph # (Auto) [place] # (Auto) Eos # (Auto) Baso # (Auto) Abs Immat Gran (auto) Absolute Neuts (auto) Absolute Nucleated RBC Nucleated RBC % (auto) Smear Tech's Comments Hold Purple Top VBG pH VBG pCO2 VBG pO2 VBG HCO3 VBG O2 Saturation VBG Base Excess Sodium Potassium Chloride Carbon Dioxide Anion Gap BUN Creatinine Estim Creat Clear Calc Estimated GFR POC Glucose 213 H 265 H 408 H* Random Glucose Estimat Average Glucose Hemoglobin A1c % Osmolality Lactic Acid Calcium Magnesium Iron TIBC % Saturation Unsat Iron Binding Total Bilirubin AST ALT Alkaline Phosphatase Total Protein Albumin Triglycerides Cholesterol LDL Cholesterol, Calc HDL Cholesterol Lipase TSH Free T4 Urine Color Urine Appearance Urine pH Ur Specific [place] Urine Protein Urine Glucose (UA) Urine Ketones Urine Blood Urine Nitrite Ur Leukocyte Esterase Urine RBC Urine WBC Ur Squamous Epith Cells Urine Bacteria Hyaline Casts Urine Osmolality Ur Random Sodium Urine Opiates Screen Ur Buprenorphine Scrn Ur Oxycodone Screen Urine Methadone Screen Urine Fentanyl Screen Ur Barbiturates Screen Carbamazepine Ur Phencyclidine Scrn Ur Amphetamines Screen U Benzodiazepines Scrn Urine Cocaine Screen U Marijuana (THC) Screen COVID-19 ([facility]) COVID-19 Clin Com Influenza Type A (AMANDA) Influenza Type B (AMANDA) Influenza A & B Note TB Test (T-Spot) Com TB Test Nil Control TB Test Panel A TB Test Panel B TB Test Positive Cntr 12/19/24 12/19/24 12/20/24 16:02 20:57 06:20 WBC RBC Hgb Hct MCV MCH MCHC RDW Plt Count MPV Immature Gran % (Auto) Neut % (Auto) Lymph % (Auto) [place] % (Auto) Eos % (Auto) Baso % (Auto) Lymph # (Auto) [place] # (Auto) Eos # (Auto) Baso # (Auto) Abs Immat Gran (auto) Absolute Neuts (auto) Absolute Nucleated RBC Nucleated RBC % (auto) Smear Tech's Comments Hold Purple Top VBG pH VBG pCO2 VBG pO2 VBG HCO3 VBG O2 Saturation VBG Base Excess Sodium Potassium Chloride Carbon Dioxide Anion Gap BUN Creatinine Estim Creat Clear Calc Estimated GFR POC Glucose 115 101 181 H Random Glucose Estimat Average Glucose Hemoglobin A1c % Osmolality Lactic Acid Calcium Magnesium Iron TIBC % Saturation Unsat Iron Binding Total Bilirubin AST ALT Alkaline Phosphatase Total Protein Albumin Triglycerides Cholesterol LDL Cholesterol, Calc HDL Cholesterol Lipase TSH Free T4 Urine Color Urine Appearance Urine pH Ur Specific [place] Urine Protein Urine Glucose (UA) Urine Ketones Urine Blood Urine Nitrite Ur Leukocyte Esterase Urine RBC Urine WBC Ur Squamous Epith Cells Urine Bacteria Hyaline Casts Urine Osmolality Ur Random Sodium Urine Opiates Screen Ur Buprenorphine Scrn Ur Oxycodone Screen Urine Methadone Screen Urine Fentanyl Screen Ur Barbiturates Screen Carbamazepine Ur Phencyclidine Scrn Ur Amphetamines Screen U Benzodiazepines Scrn Urine Cocaine Screen U Marijuana (THC) Screen COVID-19 ([facility]) COVID-19 Clin Com Influenza Type A (AMANDA) Influenza Type B (AMANDA) Influenza A & B Note TB Test (T-Spot) Com TB Test Nil Control TB Test Panel A TB Test Panel B TB Test Positive [facility] 12/20/24 12/20/24 12/20/24 08:43 10:41 15:49 WBC RBC Hgb Hct MCV MCH MCHC RDW Plt Count MPV Immature Gran % (Auto) Neut % (Auto) Lymph % (Auto) [place] % (Auto) Eos % (Auto) Baso % (Auto) Lymph # (Auto) [place] # (Auto) Eos # (Auto) Baso # (Auto) Abs Immat Gran (auto) Absolute Neuts (auto) Absolute Nucleated RBC Nucleated RBC % (auto) Smear Tech's Comments Hold Purple Top VBG pH VBG pCO2 VBG pO2 VBG HCO3 VBG O2 Saturation VBG Base Excess Sodium 140 Potassium 5.2 H Chloride 107 Carbon Dioxide 25 Anion Gap 13 BUN 27 H Creatinine 1.08 Estim Creat Clear Calc 28.6 Estimated GFR 49 POC Glucose 223 H 177 H Random Glucose 266 H Estimat Average Glucose Hemoglobin A1c % Osmolality Lactic Acid Calcium 9.0 Magnesium Iron TIBC % Saturation Unsat Iron Binding Total Bilirubin 0.3 AST 66 H ALT 70 H Alkaline Phosphatase 60 Total Protein 6.6 Albumin 3.6 Triglycerides Cholesterol LDL Cholesterol, Calc HDL Cholesterol Lipase TSH Free T4 Urine Color Urine Appearance Urine pH Ur Specific [place] Urine Protein Urine Glucose (UA) Urine Ketones Urine Blood Urine Nitrite Ur Leukocyte Esterase Urine RBC Urine WBC Ur Squamous Epith Cells Urine Bacteria Hyaline Casts Urine Osmolality Ur Random Sodium Urine Opiates Screen Ur Buprenorphine Scrn Ur Oxycodone Screen Urine Methadone Screen Urine Fentanyl Screen Ur Barbiturates Screen Carbamazepine Ur Phencyclidine Scrn Ur Amphetamines Screen U Benzodiazepines Scrn Urine Cocaine Screen U Marijuana (THC) Screen COVID-19 ([facility]ESA) COVID-19 Clin Com Influenza Type A (AMANDA) Influenza Type B (AMANDA) Influenza A & B Note TB Test (T-Spot) Com TB Test Nil Control TB Test Panel A TB Test Panel B TB Test Positive Cntr 12/21/24 12/21/24 12/21/24 06:20 11:49 16:10 WBC RBC Hgb Hct MCV MCH MCHC RDW Plt Count MPV Immature Gran % (Auto) Neut % (Auto) Lymph % (Auto) [place] % (Auto) Eos % (Auto) Baso % (Auto) Lymph # (Auto) [place] # (Auto) Eos # (Auto) Baso # (Auto) Abs Immat Gran (auto) Absolute Neuts (auto) Absolute Nucleated RBC Nucleated RBC % (auto) Smear Tech's Comments Hold Purple Top VBG pH VBG pCO2 VBG pO2 VBG HCO3 VBG O2 Saturation VBG Base Excess Sodium Potassium Chloride Carbon Dioxide Anion Gap BUN Creatinine Estim Creat Clear Calc Estimated GFR POC Glucose 170 H 201 H 141 H Random Glucose Estimat Average Glucose Hemoglobin A1c % Osmolality Lactic Acid Calcium Magnesium Iron TIBC % Saturation Unsat Iron Binding Total Bilirubin AST ALT Alkaline Phosphatase Total Protein Albumin Triglycerides Cholesterol LDL Cholesterol, Calc HDL Cholesterol Lipase TSH Free T4 Urine Color Urine Appearance Urine pH Ur Specific [place] Urine Protein Urine Glucose (UA) Urine Ketones Urine Blood Urine Nitrite Ur Leukocyte Esterase Urine RBC Urine WBC Ur Squamous Epith Cells Urine Bacteria Hyaline Casts Urine Osmolality Ur Random Sodium Urine Opiates Screen Ur Buprenorphine Scrn Ur Oxycodone Screen Urine Methadone Screen Urine Fentanyl Screen Ur Barbiturates Screen Carbamazepine Ur Phencyclidine Scrn Ur Amphetamines Screen U Benzodiazepines Scrn Urine Cocaine Screen U Marijuana (THC) Screen COVID-19 (TRESA) COVID-19 Clin Com Influenza Type A (AMANDA) Influenza Type B (AMANDA) Influenza A & B Note TB Test (T-Spot) Com TB Test Nil Control TB Test Panel A TB Test Panel B TB Test Positive Cntrl 12/21/24 12/22/24 12/22/24 20:59 06:39 11:34 WBC RBC Hgb Hct MCV MCH MCHC RDW Plt Count MPV Immature Gran % (Auto) Neut % (Auto) Lymph % (Auto) [place] % (Auto) Eos % (Auto) Baso % (Auto) Lymph # (Auto) [place] # (Auto) Eos # (Auto) Baso # (Auto) Abs Immat Gran (auto) Absolute Neuts (auto) Absolute Nucleated RBC Nucleated RBC % (auto) Smear Tech's Comments Hold Purple Top VBG pH VBG pCO2 VBG pO2 VBG HCO3 VBG O2 Saturation VBG Base Excess Sodium Potassium Chloride Carbon Dioxide Anion Gap BUN Creatinine Estim Creat Clear Calc Estimated GFR POC Glucose 270 H 217 H 134 H Random Glucose Estimat Average Glucose Hemoglobin A1c % Osmolality Lactic Acid Calcium Magnesium Iron TIBC % Saturation Unsat Iron Binding Total Bilirubin AST ALT Alkaline Phosphatase Total Protein Albumin Triglycerides Cholesterol LDL Cholesterol, Calc HDL Cholesterol Lipase TSH Free T4 Urine Color Urine Appearance Urine pH Ur Specific [place] Urine Protein Urine Glucose (UA) Urine Ketones Urine Blood Urine Nitrite Ur Leukocyte Esterase Urine RBC Urine WBC Ur Squamous Epith Cells Urine Bacteria Hyaline Casts Urine Osmolality Ur Random Sodium Urine Opiates Screen Ur Buprenorphine Scrn Ur Oxycodone Screen Urine Methadone Screen Urine Fentanyl Screen Ur Barbiturates Screen Carbamazepine Ur Phencyclidine Scrn Ur Amphetamines Screen U Benzodiazepines Scrn Urine Cocaine Screen U Marijuana (THC) Screen COVID-19 (TRESA) COVID-19 Clin Com Influenza Type A (AMANDA) Influenza Type B (AMANDA) Influenza A & B Note TB Test (T-Spot) Com TB Test Nil Control TB Test Panel A TB Test Panel B TB Test Positive Cntrl 12/22/24 12/22/24 12/23/24 16:32 20:04 06:23 WBC RBC Hgb Hct MCV MCH MCHC RDW Plt Count MPV Immature Gran % (Auto) Neut % (Auto) Lymph % (Auto) [place] % (Auto) Eos % (Auto) Baso % (Auto) Lymph # (Auto) [place] # (Auto) Eos # (Auto) Baso # (Auto) Abs Immat Gran (auto) Absolute Neuts (auto) Absolute Nucleated RBC Nucleated RBC % (auto) Smear Tech's Comments Hold Purple Top VBG pH VBG pCO2 VBG pO2 VBG HCO3 VBG O2 Saturation VBG Base Excess Sodium Potassium Chloride Carbon Dioxide Anion Gap BUN Creatinine Estim Creat Clear Calc Estimated GFR POC Glucose 200 H 76 237 H Random Glucose Estimat Average Glucose Hemoglobin A1c % Osmolality Lactic Acid Calcium Magnesium Iron TIBC % Saturation Unsat Iron Binding Total Bilirubin AST ALT Alkaline Phosphatase Total Protein Albumin Triglycerides Cholesterol LDL Cholesterol, Calc HDL Cholesterol Lipase TSH Free T4 Urine Color Urine Appearance Urine pH Ur Specific [place] Urine Protein Urine Glucose (UA) Urine Ketones Urine Blood Urine Nitrite Ur Leukocyte Esterase Urine RBC Urine WBC Ur Squamous Epith Cells Urine Bacteria Hyaline Casts Urine Osmolality Ur Random Sodium Urine Opiates Screen Ur Buprenorphine Scrn Ur Oxycodone Screen Urine Methadone Screen Urine Fentanyl Screen Ur Barbiturates Screen Carbamazepine Ur Phencyclidine Scrn Ur Amphetamines Screen U Benzodiazepines Scrn Urine Cocaine Screen U Marijuana (THC) Screen COVID-19 (TRESA) COVID-19 Clin Com Influenza Type A (AMANDA) Influenza Type B (AMANDA) Influenza A & B Note TB Test (T-Spot) Com TB Test Nil Control TB Test Panel A TB Test Panel B TB Test Positive [facility] 12/23/24 12/23/24 12/23/24 11:32 16:20 19:35 WBC RBC Hgb Hct MCV MCH MCHC RDW Plt Count MPV Immature Gran % (Auto) Neut % (Auto) Lymph % (Auto) [place] % (Auto) Eos % (Auto) Baso % (Auto) Lymph # (Auto) [place] # (Auto) Eos # (Auto) Baso # (Auto) Abs Immat Gran (auto) Absolute Neuts (auto) Absolute Nucleated RBC Nucleated RBC % (auto) Smear Tech's Comments Hold Purple Top VBG pH VBG pCO2 VBG pO2 VBG HCO3 VBG O2 Saturation VBG Base Excess Sodium Potassium Chloride Carbon Dioxide Anion Gap BUN Creatinine Estim Creat Clear Calc Estimated GFR POC Glucose 114 125 H 134 H Random Glucose Estimat Average Glucose Hemoglobin A1c % Osmolality Lactic Acid Calcium Magnesium Iron TIBC % Saturation Unsat Iron Binding Total Bilirubin AST ALT Alkaline Phosphatase Total Protein Albumin Triglycerides Cholesterol LDL Cholesterol, Calc HDL Cholesterol Lipase TSH Free T4 Urine Color Urine Appearance Urine pH Ur Specific [place] Urine Protein Urine Glucose (UA) Urine Ketones Urine Blood Urine Nitrite Ur Leukocyte Esterase Urine RBC Urine WBC Ur Squamous Epith Cells Urine Bacteria Hyaline Casts Urine Osmolality Ur Random Sodium Urine Opiates Screen Ur Buprenorphine Scrn Ur Oxycodone Screen Urine Methadone Screen Urine Fentanyl Screen Ur Barbiturates Screen Carbamazepine Ur Phencyclidine Scrn Ur Amphetamines Screen U Benzodiazepines Scrn Urine Cocaine Screen U Marijuana (THC) Screen COVID-19 (TRESA) COVID-19 Clin Com Influenza Type A (AMANDA) Influenza Type B (AMANDA) Influenza A & B Note TB Test (T-Spot) Com TB Test Nil Control TB Test Panel A TB Test Panel B TB Test Positive Cntrl 12/24/24 12/24/24 12/24/24 06:14 11:21 16:11 WBC RBC Hgb Hct MCV MCH MCHC RDW Plt Count MPV Immature Gran % (Auto) Neut % (Auto) Lymph % (Auto) [place] % (Auto) Eos % (Auto) Baso % (Auto) Lymph # (Auto) [place] # (Auto) Eos # (Auto) Baso # (Auto) Abs Immat Gran (auto) Absolute Neuts (auto) Absolute Nucleated RBC Nucleated RBC % (auto) Smear Tech's Comments Hold Purple Top VBG pH VBG pCO2 VBG pO2 VBG HCO3 VBG O2 Saturation VBG Base Excess Sodium Potassium Chloride Carbon Dioxide Anion Gap BUN Creatinine Estim Creat Clear Calc Estimated GFR POC Glucose 212 H 168 H 97 Random Glucose Estimat Average Glucose Hemoglobin A1c % Osmolality Lactic Acid Calcium Magnesium Iron TIBC % Saturation Unsat Iron Binding Total Bilirubin AST ALT Alkaline Phosphatase Total Protein Albumin Triglycerides Cholesterol LDL Cholesterol, Calc HDL Cholesterol Lipase TSH Free T4 Urine Color Urine Appearance Urine pH Ur Specific [place] Urine Protein Urine Glucose (UA) Urine Ketones Urine Blood Urine Nitrite Ur Leukocyte Esterase Urine RBC Urine WBC Ur Squamous Epith Cells Urine Bacteria Hyaline Casts Urine Osmolality Ur Random Sodium Urine Opiates Screen Ur Buprenorphine Scrn Ur Oxycodone Screen Urine Methadone Screen Urine Fentanyl Screen Ur Barbiturates Screen Carbamazepine Ur Phencyclidine Scrn Ur Amphetamines Screen U Benzodiazepines Scrn Urine Cocaine Screen U Marijuana (THC) Screen COVID-19 (TRESA) COVID-19 Clin Com Influenza Type A (AMANDA) Influenza Type B (AMANDA) Influenza A & B Note TB Test (T-Spot) Com TB Test Nil Control TB Test Panel A TB Test Panel B TB Test Positive [facility] 12/24/24 12/25/24 12/25/24 20:01 05:45 10:16 WBC RBC Hgb Hct MCV MCH MCHC RDW Plt Count MPV Immature Gran % (Auto) Neut % (Auto) Lymph % (Auto) [place] % (Auto) Eos % (Auto) Baso % (Auto) Lymph # (Auto) [place] # (Auto) Eos # (Auto) Baso # (Auto) Abs Immat Gran (auto) Absolute Neuts (auto) Absolute Nucleated RBC Nucleated RBC % (auto) Smear Tech's Comments Hold Purple Top VBG pH VBG pCO2 VBG pO2 VBG HCO3 VBG O2 Saturation VBG Base Excess Sodium Potassium Chloride Carbon Dioxide Anion Gap BUN Creatinine Estim Creat Clear Calc Estimated GFR POC Glucose 208 H 220 H 224 H Random Glucose Estimat Average Glucose Hemoglobin A1c % Osmolality Lactic Acid Calcium Magnesium Iron TIBC % Saturation Unsat Iron Binding Total Bilirubin AST ALT Alkaline Phosphatase Total Protein Albumin Triglycerides Cholesterol LDL Cholesterol, Calc HDL Cholesterol Lipase TSH Free T4 Urine Color Urine Appearance Urine pH Ur Specific [place] Urine Protein Urine Glucose (UA) Urine Ketones Urine Blood Urine Nitrite Ur Leukocyte Esterase Urine RBC Urine WBC Ur Squamous Epith Cells Urine Bacteria Hyaline Casts Urine Osmolality Ur Random Sodium Urine Opiates Screen Ur Buprenorphine Scrn Ur Oxycodone Screen Urine Methadone Screen Urine Fentanyl Screen Ur Barbiturates Screen Carbamazepine Ur Phencyclidine Scrn Ur Amphetamines Screen U Benzodiazepines Scrn Urine Cocaine Screen U Marijuana (THC) Screen COVID-19 (TRESA) COVID-19 Clin Com Influenza Type A (AMANDA) Influenza Type B (AMANDA) Influenza A & B Note TB Test (T-Spot) Com TB Test Nil Control TB Test Panel A TB Test Panel B TB Test Positive [facility] 12/25/24 12/25/24 12/26/24 16:09 20:08 06:42 WBC RBC Hgb Hct MCV MCH MCHC RDW Plt Count MPV Immature Gran % (Auto) Neut % (Auto) Lymph % (Auto) [place] % (Auto) Eos % (Auto) Baso % (Auto) Lymph # (Auto) [place] # (Auto) Eos # (Auto) Baso # (Auto) Abs Immat Gran (auto) Absolute Neuts (auto) Absolute Nucleated RBC Nucleated RBC % (auto) Smear Tech's Comments Hold Purple Top VBG pH VBG pCO2 VBG pO2 VBG HCO3 VBG O2 Saturation VBG Base Excess Sodium Potassium Chloride Carbon Dioxide Anion Gap BUN Creatinine Estim Creat Clear Calc Estimated GFR POC Glucose 86 281 H 210 H Random Glucose Estimat Average Glucose Hemoglobin A1c % Osmolality Lactic Acid Calcium Magnesium Iron TIBC % Saturation Unsat Iron Binding Total Bilirubin AST ALT Alkaline Phosphatase Total Protein Albumin Triglycerides Cholesterol LDL Cholesterol, Calc HDL Cholesterol Lipase TSH Free T4 Urine Color Urine Appearance Urine pH Ur Specific [place] Urine Protein Urine Glucose (UA) Urine Ketones Urine Blood Urine Nitrite Ur Leukocyte Esterase Urine RBC Urine WBC Ur Squamous Epith Cells Urine Bacteria Hyaline Casts Urine Osmolality Ur Random Sodium Urine Opiates Screen Ur Buprenorphine Scrn Ur Oxycodone Screen Urine Methadone Screen Urine Fentanyl Screen Ur Barbiturates Screen Carbamazepine Ur Phencyclidine Scrn Ur Amphetamines Screen U Benzodiazepines Scrn Urine Cocaine Screen U Marijuana (THC) Screen COVID-19 (TRESA) COVID-19 Clin Com Influenza Type A (AMANDA) Influenza Type B (AMANDA) Influenza A & B Note TB Test (T-Spot) Com TB Test Nil Control TB Test Panel A TB Test Panel B TB Test Positive [facility] 12/26/24 12/26/24 12/26/24 11:10 14:48 16:13 WBC RBC Hgb Hct MCV MCH MCHC RDW Plt Count MPV Immature Gran % (Auto) Neut % (Auto) Lymph % (Auto) [place] % (Auto) Eos % (Auto) Baso % (Auto) Lymph # (Auto) [place] # (Auto) Eos # (Auto) Baso # (Auto) Abs Immat Gran (auto) Absolute Neuts (auto) Absolute Nucleated RBC Nucleated RBC % (auto) Smear Tech's Comments Hold Purple Top VBG pH VBG pCO2 VBG pO2 VBG HCO3 VBG O2 Saturation VBG Base Excess Sodium Potassium Chloride Carbon Dioxide Anion Gap BUN Creatinine Estim Creat Clear Calc Estimated GFR POC Glucose 284 H 130 H 146 H Random Glucose Estimat Average Glucose Hemoglobin A1c % Osmolality Lactic Acid Calcium Magnesium Iron TIBC % Saturation Unsat Iron Binding Total Bilirubin AST ALT Alkaline Phosphatase Total Protein Albumin Triglycerides Cholesterol LDL Cholesterol, Calc HDL Cholesterol Lipase TSH Free T4 Urine Color Urine Appearance Urine pH Ur Specific [place] Urine Protein Urine Glucose (UA) Urine Ketones Urine Blood Urine Nitrite Ur Leukocyte Esterase Urine RBC Urine WBC Ur Squamous Epith Cells Urine Bacteria Hyaline Casts Urine Osmolality Ur Random Sodium Urine Opiates Screen Ur Buprenorphine Scrn Ur Oxycodone Screen Urine Methadone Screen Urine Fentanyl Screen Ur Barbiturates Screen Carbamazepine Ur Phencyclidine Scrn Ur Amphetamines Screen U Benzodiazepines Scrn Urine Cocaine Screen U Marijuana (THC) Screen COVID-19 (TRESA) COVID-19 Clin Com Influenza Type A (AMANDA) Influenza Type B (AMANDA) Influenza A & B Note TB Test (T-Spot) Com TB Test Nil Control TB Test Panel A TB Test Panel B TB Test Positive Cntrl 12/26/24 12/27/24 12/27/24 20:01 06:05 11:24 WBC RBC Hgb Hct MCV MCH MCHC RDW Plt Count MPV Immature Gran % (Auto) Neut % (Auto) Lymph % (Auto) [place] % (Auto) Eos % (Auto) Baso % (Auto) Lymph # (Auto) [place] # (Auto) Eos # (Auto) Baso # (Auto) Abs Immat Gran (auto) Absolute Neuts (auto) Absolute Nucleated RBC Nucleated RBC % (auto) Smear Tech's Comments Hold Purple Top VBG pH VBG pCO2 VBG pO2 VBG HCO3 VBG O2 Saturation VBG Base Excess Sodium Potassium Chloride Carbon Dioxide Anion Gap BUN Creatinine Estim Creat Clear Calc Estimated GFR POC Glucose 200 H 229 H 393 H* Random Glucose Estimat Average Glucose Hemoglobin A1c % Osmolality Lactic Acid Calcium Magnesium Iron TIBC % Saturation Unsat Iron Binding Total Bilirubin AST ALT Alkaline Phosphatase Total Protein Albumin Triglycerides Cholesterol LDL Cholesterol, Calc HDL Cholesterol Lipase TSH Free T4 Urine Color Urine Appearance Urine pH Ur Specific [place] Urine Protein Urine Glucose (UA) Urine Ketones Urine Blood Urine Nitrite Ur Leukocyte Esterase Urine RBC Urine WBC Ur Squamous Epith Cells Urine Bacteria Hyaline Casts Urine Osmolality Ur Random Sodium Urine Opiates Screen Ur Buprenorphine Scrn Ur Oxycodone Screen Urine Methadone Screen Urine Fentanyl Screen Ur Barbiturates Screen Carbamazepine Ur Phencyclidine Scrn Ur Amphetamines Screen U Benzodiazepines Scrn Urine Cocaine Screen U Marijuana (THC) Screen COVID-19 ([facility]ESA) COVID-19 Clin Com Influenza Type A (AMANDA) Influenza Type B (AMANDA) Influenza A & B Note TB Test (T-Spot) Com TB Test Nil Control TB Test Panel A TB Test Panel B TB Test Positive [facility] 12/27/24 12/27/24 12/27/24 15:38 15:51 16:38 WBC RBC Hgb Hct MCV MCH MCHC RDW Plt Count MPV Immature Gran % (Auto) Neut % (Auto) Lymph % (Auto) [place] % (Auto) Eos % (Auto) Baso % (Auto) Lymph # (Auto) [place] # (Auto) Eos # (Auto) Baso # (Auto) Abs Immat Gran (auto) Absolute Neuts (auto) Absolute Nucleated RBC Nucleated RBC % (auto) Smear Tech's Comments Hold Purple Top VBG pH VBG pCO2 VBG pO2 VBG HCO3 VBG O2 Saturation VBG Base Excess Sodium Potassium Chloride Carbon Dioxide Anion Gap BUN Creatinine Estim Creat Clear Calc Estimated GFR POC Glucose 54 L* 109 199 H Random Glucose Estimat Average Glucose Hemoglobin A1c % Osmolality Lactic Acid Calcium Magnesium Iron TIBC % Saturation Unsat Iron Binding Total Bilirubin AST ALT Alkaline Phosphatase Total Protein Albumin Triglycerides Cholesterol LDL Cholesterol, Calc HDL Cholesterol Lipase TSH Free T4 Urine Color Urine Appearance Urine pH Ur Specific [place] Urine Protein Urine Glucose (UA) Urine Ketones Urine Blood Urine Nitrite Ur Leukocyte Esterase Urine RBC Urine WBC Ur Squamous Epith Cells Urine Bacteria Hyaline Casts Urine Osmolality Ur Random Sodium Urine Opiates Screen Ur Buprenorphine Scrn Ur Oxycodone Screen Urine Methadone Screen Urine Fentanyl Screen Ur Barbiturates Screen Carbamazepine Ur Phencyclidine Scrn Ur Amphetamines Screen U Benzodiazepines Scrn Urine Cocaine Screen U Marijuana (THC) Screen COVID-19 (TRESA) COVID-19 Clin Com Influenza Type A (AMANDA) Influenza Type B (AMANDA) Influenza A & B Note TB Test (T-Spot) Com TB Test Nil Control TB Test Panel A TB Test Panel B TB Test Positive [facility] 12/27/24 12/28/24 12/28/24 20:04 07:13 11:00 WBC RBC Hgb Hct MCV MCH MCHC RDW Plt Count MPV Immature Gran % (Auto) Neut % (Auto) Lymph % (Auto) [place] % (Auto) Eos % (Auto) Baso % (Auto) Lymph # (Auto) [place] # (Auto) Eos # (Auto) Baso # (Auto) Abs Immat Gran (auto) Absolute Neuts (auto) Absolute Nucleated RBC Nucleated RBC % (auto) Smear Tech's Comments Hold Purple Top VBG pH VBG pCO2 VBG pO2 VBG HCO3 VBG O2 Saturation VBG Base Excess Sodium Potassium Chloride Carbon Dioxide Anion Gap BUN Creatinine Estim Creat Clear Calc Estimated GFR POC Glucose 281 H 263 H 195 H Random Glucose Estimat Average Glucose Hemoglobin A1c % Osmolality Lactic Acid Calcium Magnesium Iron TIBC % Saturation Unsat Iron Binding Total Bilirubin AST ALT Alkaline Phosphatase Total Protein Albumin Triglycerides Cholesterol LDL Cholesterol, Calc HDL Cholesterol Lipase TSH Free T4 Urine Color Urine Appearance Urine pH Ur Specific [place] Urine Protein Urine Glucose (UA) Urine Ketones Urine Blood Urine Nitrite Ur Leukocyte Esterase Urine RBC Urine WBC Ur Squamous Epith Cells Urine Bacteria Hyaline Casts Urine Osmolality Ur Random Sodium Urine Opiates Screen Ur Buprenorphine Scrn Ur Oxycodone Screen Urine Methadone Screen Urine Fentanyl Screen Ur Barbiturates Screen Carbamazepine Ur Phencyclidine Scrn Ur Amphetamines Screen U Benzodiazepines Scrn Urine Cocaine Screen U Marijuana (THC) Screen COVID-19 ([facility]ESA) COVID-19 Clin Com Influenza Type A (AMANDA) Influenza Type B (AMANDA) Influenza A & B Note TB Test (T-Spot) Com TB Test Nil Control TB Test Panel A TB Test Panel B TB Test Positive [facility] 12/28/24 12/28/24 12/29/24 16:12 20:21 06:47 WBC RBC Hgb Hct MCV MCH MCHC RDW Plt Count MPV Immature Gran % (Auto) Neut % (Auto) Lymph % (Auto) [place] % (Auto) Eos % (Auto) Baso % (Auto) Lymph # (Auto) [place] # (Auto) Eos # (Auto) Baso # (Auto) Abs Immat Gran (auto) Absolute Neuts (auto) Absolute Nucleated RBC Nucleated RBC % (auto) Smear Tech's Comments Hold Purple Top VBG pH VBG pCO2 VBG pO2 VBG HCO3 VBG O2 Saturation VBG Base Excess Sodium Potassium Chloride Carbon Dioxide Anion Gap BUN Creatinine Estim Creat Clear Calc Estimated GFR POC Glucose 111 134 H 257 H Random Glucose Estimat Average Glucose Hemoglobin A1c % Osmolality Lactic Acid Calcium Magnesium Iron TIBC % Saturation Unsat Iron Binding Total Bilirubin AST ALT Alkaline Phosphatase Total Protein Albumin Triglycerides Cholesterol LDL Cholesterol, Calc HDL Cholesterol Lipase TSH Free T4 Urine Color Urine Appearance Urine pH Ur Specific [place] Urine Protein Urine Glucose (UA) Urine Ketones Urine Blood Urine Nitrite Ur Leukocyte Esterase Urine RBC Urine WBC Ur Squamous Epith Cells Urine Bacteria Hyaline Casts Urine Osmolality Ur Random Sodium Urine Opiates Screen Ur Buprenorphine Scrn Ur Oxycodone Screen Urine Methadone Screen Urine Fentanyl Screen Ur Barbiturates Screen Carbamazepine Ur Phencyclidine Scrn Ur Amphetamines Screen U Benzodiazepines Scrn Urine Cocaine Screen U Marijuana (THC) Screen COVID-19 (TRESA) COVID-19 Clin Com Influenza Type A (AMANDA) Influenza Type B (AMANDA) Influenza A & B Note TB Test (T-Spot) Com TB Test Nil Control TB Test Panel A TB Test Panel B TB Test Positive Cnt 12/29/24 12/29/24 12/30/24 11:20 16:23 06:14 WBC RBC Hgb Hct MCV MCH MCHC RDW Plt Count MPV Immature Gran % (Auto) Neut % (Auto) Lymph % (Auto) [place] % (Auto) Eos % (Auto) Baso % (Auto) Lymph # (Auto) [place] # (Auto) Eos # (Auto) Baso # (Auto) Abs Immat Gran (auto) Absolute Neuts (auto) Absolute Nucleated RBC Nucleated RBC % (auto) Smear Tech's Comments Hold Purple Top VBG pH VBG pCO2 VBG pO2 VBG HCO3 VBG O2 Saturation VBG Base Excess Sodium Potassium Chloride Carbon Dioxide Anion Gap BUN Creatinine Estim Creat Clear Calc Estimated GFR POC Glucose 149 H 211 H 180 H Random Glucose Estimat Average Glucose Hemoglobin A1c % Osmolality Lactic Acid Calcium Magnesium Iron TIBC % Saturation Unsat Iron Binding Total Bilirubin AST ALT Alkaline Phosphatase Total Protein Albumin Triglycerides Cholesterol LDL Cholesterol, Calc HDL Cholesterol Lipase TSH Free T4 Urine Color Urine Appearance Urine pH Ur Specific [place] Urine Protein Urine Glucose (UA) Urine Ketones Urine Blood Urine Nitrite Ur Leukocyte Esterase Urine RBC Urine WBC Ur Squamous Epith Cells Urine Bacteria Hyaline Casts Urine Osmolality Ur Random Sodium Urine Opiates Screen Ur Buprenorphine Scrn Ur Oxycodone Screen Urine Methadone Screen Urine Fentanyl Screen Ur Barbiturates Screen Carbamazepine Ur Phencyclidine Scrn Ur Amphetamines Screen U Benzodiazepines Scrn Urine Cocaine Screen U Marijuana (THC) Screen COVID-19 ([facility]ESA) COVID-19 Clin Com Influenza Type A (AMANDA) Influenza Type B (AMANDA) Influenza A & B Note TB Test (T-Spot) Com TB Test Nil Control TB Test Panel A TB Test Panel B TB Test Positive Cnt 12/30/24 12/30/24 12/30/24 08:43 11:25 14:17 WBC RBC Hgb Hct MCV MCH MCHC RDW Plt Count MPV Immature Gran % (Auto) Neut % (Auto) Lymph % (Auto) [place] % (Auto) Eos % (Auto) Baso % (Auto) Lymph # (Auto) [place] # (Auto) Eos # (Auto) Baso # (Auto) Abs Immat Gran (auto) Absolute Neuts (auto) Absolute Nucleated RBC Nucleated RBC % (auto) Smear Tech's Comments Hold Purple Top VBG pH VBG pCO2 VBG pO2 VBG HCO3 VBG O2 Saturation VBG Base Excess Sodium Potassium Chloride Carbon Dioxide Anion Gap BUN Creatinine Estim Creat Clear Calc Estimated GFR POC Glucose 267 H 288 H 47 L* Random Glucose Estimat Average Glucose Hemoglobin A1c % Osmolality Lactic Acid Calcium Magnesium Iron TIBC % Saturation Unsat Iron Binding Total Bilirubin AST ALT Alkaline Phosphatase Total Protein Albumin Triglycerides Cholesterol LDL Cholesterol, Calc HDL Cholesterol Lipase TSH Free T4 Urine Color Urine Appearance Urine pH Ur Specific [place] Urine Protein Urine Glucose (UA) Urine Ketones Urine Blood Urine Nitrite Ur Leukocyte Esterase Urine RBC Urine WBC Ur Squamous Epith Cells Urine Bacteria Hyaline Casts Urine Osmolality Ur Random Sodium Urine Opiates Screen Ur Buprenorphine Scrn Ur Oxycodone Screen Urine Methadone Screen Urine Fentanyl Screen Ur Barbiturates Screen Carbamazepine Ur Phencyclidine Scrn Ur Amphetamines Screen U Benzodiazepines Scrn Urine Cocaine Screen U Marijuana (THC) Screen COVID-19 (TRESA) COVID-19 Clin Com Influenza Type A (AMANDA) Influenza Type B (AMANDA) Influenza A & B Note TB Test (T-Spot) Com TB Test Nil Control TB Test Panel A TB Test Panel B TB Test Positive Cntrl 12/30/24 12/30/24 12/30/24 14:38 16:28 19:26 WBC RBC Hgb Hct MCV MCH MCHC RDW Plt Count MPV Immature Gran % (Auto) Neut % (Auto) Lymph % (Auto) [place] % (Auto) Eos % (Auto) Baso % (Auto) Lymph # (Auto) [place] # (Auto) Eos # (Auto) Baso # (Auto) Abs Immat Gran (auto) Absolute Neuts (auto) Absolute Nucleated RBC Nucleated RBC % (auto) Smear Tech's Comments Hold Purple Top VBG pH VBG pCO2 VBG pO2 VBG HCO3 VBG O2 Saturation VBG Base Excess Sodium Potassium Chloride Carbon Dioxide Anion Gap BUN Creatinine Estim Creat Clear Calc Estimated GFR POC Glucose 100 140 H 179 H Random Glucose Estimat Average Glucose Hemoglobin A1c % Osmolality Lactic Acid Calcium Magnesium Iron TIBC % Saturation Unsat Iron Binding Total Bilirubin AST ALT Alkaline Phosphatase Total Protein Albumin Triglycerides Cholesterol LDL Cholesterol, Calc HDL Cholesterol Lipase TSH Free T4 Urine Color Urine Appearance Urine pH Ur Specific [place] Urine Protein Urine Glucose (UA) Urine Ketones Urine Blood Urine Nitrite Ur Leukocyte Esterase Urine RBC Urine WBC Ur Squamous Epith Cells Urine Bacteria Hyaline Casts Urine Osmolality Ur Random Sodium Urine Opiates Screen Ur Buprenorphine Scrn Ur Oxycodone Screen Urine Methadone Screen Urine Fentanyl Screen Ur Barbiturates Screen Carbamazepine Ur Phencyclidine Scrn Ur Amphetamines Screen U Benzodiazepines Scrn Urine Cocaine Screen U Marijuana (THC) Screen COVID-19 ([facility]ESA) COVID-19 Clin Com Influenza Type A (AMANDA) Influenza Type B (AMANDA) Influenza A & B Note TB Test (T-Spot) Com TB Test Nil Control TB Test Panel A TB Test Panel B TB Test Positive Cntrl 12/31/24 12/31/24 12/31/24 06:21 11:26 16:07 WBC RBC Hgb Hct MCV MCH MCHC RDW Plt Count MPV Immature Gran % (Auto) Neut % (Auto) Lymph % (Auto) [place] % (Auto) Eos % (Auto) Baso % (Auto) Lymph # (Auto) [place] # (Auto) Eos # (Auto) Baso # (Auto) Abs Immat Gran (auto) Absolute Neuts (auto) Absolute Nucleated RBC Nucleated RBC % (auto) Smear Tech's Comments Hold Purple Top VBG pH VBG pCO2 VBG pO2 VBG HCO3 VBG O2 Saturation VBG Base Excess Sodium Potassium Chloride Carbon Dioxide Anion Gap BUN Creatinine Estim Creat Clear Calc Estimated GFR POC Glucose 236 H 245 H 166 H Random Glucose Estimat Average Glucose Hemoglobin A1c % Osmolality Lactic Acid Calcium Magnesium Iron TIBC % Saturation Unsat Iron Binding Total Bilirubin AST ALT Alkaline Phosphatase Total Protein Albumin Triglycerides Cholesterol LDL Cholesterol, Calc HDL Cholesterol Lipase TSH Free T4 Urine Color Urine Appearance Urine pH Ur Specific [place] Urine Protein Urine Glucose (UA) Urine Ketones Urine Blood Urine Nitrite Ur Leukocyte Esterase Urine RBC Urine WBC Ur Squamous Epith Cells Urine Bacteria Hyaline Casts Urine Osmolality Ur Random Sodium Urine Opiates Screen Ur Buprenorphine Scrn Ur Oxycodone Screen Urine Methadone Screen Urine Fentanyl Screen Ur Barbiturates Screen Carbamazepine Ur Phencyclidine Scrn Ur Amphetamines Screen U Benzodiazepines Scrn Urine Cocaine Screen U Marijuana (THC) Screen COVID-19 ([facility]ESA) COVID-19 Clin Com Influenza Type A (AMANDA) Influenza Type B (AMANDA) Influenza A & B Note TB Test (T-Spot) Com TB Test Nil Control TB Test Panel A TB Test Panel B TB Test Positive [facility] 12/31/24 01/01/25 01/01/25 20:36 06:10 10:35 WBC RBC Hgb Hct MCV MCH MCHC RDW Plt Count MPV Immature Gran % (Auto) Neut % (Auto) Lymph % (Auto) [place] % (Auto) Eos % (Auto) Baso % (Auto) Lymph # (Auto) [place] # (Auto) Eos # (Auto) Baso # (Auto) Abs Immat Gran (auto) Absolute Neuts (auto) Absolute Nucleated RBC Nucleated RBC % (auto) Smear Tech's Comments Hold Purple Top VBG pH VBG pCO2 VBG pO2 VBG HCO3 VBG O2 Saturation VBG Base Excess Sodium Potassium Chloride Carbon Dioxide Anion Gap BUN Creatinine Estim Creat Clear Calc Estimated GFR POC Glucose 130 H 186 H 263 H Random Glucose Estimat Average Glucose Hemoglobin A1c % Osmolality Lactic Acid Calcium Magnesium Iron TIBC % Saturation Unsat Iron Binding Total Bilirubin AST ALT Alkaline Phosphatase Total Protein Albumin Triglycerides Cholesterol LDL Cholesterol, Calc HDL Cholesterol Lipase TSH Free T4 Urine Color Urine Appearance Urine pH Ur Specific [place] Urine Protein Urine Glucose (UA) Urine Ketones Urine Blood Urine Nitrite Ur Leukocyte Esterase Urine RBC Urine WBC Ur Squamous Epith Cells Urine Bacteria Hyaline Casts Urine Osmolality Ur Random Sodium Urine Opiates Screen Ur Buprenorphine Scrn Ur Oxycodone Screen Urine Methadone Screen Urine Fentanyl Screen Ur Barbiturates Screen Carbamazepine Ur Phencyclidine Scrn Ur Amphetamines Screen U Benzodiazepines Scrn Urine Cocaine Screen U Marijuana (THC) Screen COVID-19 ([facility]ESA) COVID-19 Clin Com Influenza Type A (AMANDA) Influenza Type B (AMANDA) Influenza A & B Note TB Test (T-Spot) Com TB Test Nil Control TB Test Panel A TB Test Panel B TB Test Positive [facility] 01/01/25 01/01/25 01/02/25 16:17 20:04 06:32 WBC RBC Hgb Hct MCV MCH MCHC RDW Plt Count MPV Immature Gran % (Auto) Neut % (Auto) Lymph % (Auto) [place] % (Auto) Eos % (Auto) Baso % (Auto) Lymph # (Auto) [place] # (Auto) Eos # (Auto) Baso # (Auto) Abs Immat Gran (auto) Absolute Neuts (auto) Absolute Nucleated RBC Nucleated RBC % (auto) Smear Tech's Comments Hold Purple Top VBG pH VBG pCO2 VBG pO2 VBG HCO3 VBG O2 Saturation VBG Base Excess Sodium Potassium Chloride Carbon Dioxide Anion Gap BUN Creatinine Estim Creat Clear Calc Estimated GFR POC Glucose 184 H 180 H 194 H Random Glucose Estimat Average Glucose Hemoglobin A1c % Osmolality Lactic Acid Calcium Magnesium Iron TIBC % Saturation Unsat Iron Binding Total Bilirubin AST ALT Alkaline Phosphatase Total Protein Albumin Triglycerides Cholesterol LDL Cholesterol, Calc HDL Cholesterol Lipase TSH Free T4 Urine Color Urine Appearance Urine pH Ur Specific [place] Urine Protein Urine Glucose (UA) Urine Ketones Urine Blood Urine Nitrite Ur Leukocyte Esterase Urine RBC Urine WBC Ur Squamous Epith Cells Urine Bacteria Hyaline Casts Urine Osmolality Ur Random Sodium Urine Opiates Screen Ur Buprenorphine Scrn Ur Oxycodone Screen Urine Methadone Screen Urine Fentanyl Screen Ur Barbiturates Screen Carbamazepine Ur Phencyclidine Scrn Ur Amphetamines Screen U Benzodiazepines Scrn Urine Cocaine Screen U Marijuana (THC) Screen COVID-19 ([facility]ESA) COVID-19 Clin Com Influenza Type A (AMANDA) Influenza Type B (AMANDA) Influenza A & B Note TB Test (T-Spot) Com TB Test Nil Control TB Test Panel A TB Test Panel B TB Test Positive Cntrl 01/02/25 01/02/25 01/03/25 11:20 16:21 09:38 WBC RBC Hgb Hct MCV MCH MCHC RDW Plt Count MPV Immature Gran % (Auto) Neut % (Auto) Lymph % (Auto) [place] % (Auto) Eos % (Auto) Baso % (Auto) Lymph # (Auto) [place] # (Auto) Eos # (Auto) Baso # (Auto) Abs Immat Gran (auto) Absolute Neuts (auto) Absolute Nucleated RBC Nucleated RBC % (auto) Smear Tech's Comments Hold Purple Top VBG pH VBG pCO2 VBG pO2 VBG HCO3 VBG O2 Saturation VBG Base Excess Sodium Potassium Chloride Carbon Dioxide Anion Gap BUN Creatinine Estim Creat Clear Calc Estimated GFR POC Glucose 259 H 103 258 H Random Glucose Estimat Average Glucose Hemoglobin A1c % Osmolality Lactic Acid Calcium Magnesium Iron TIBC % Saturation Unsat Iron Binding Total Bilirubin AST ALT Alkaline Phosphatase Total Protein Albumin Triglycerides Cholesterol LDL Cholesterol, Calc HDL Cholesterol Lipase TSH Free T4 Urine Color Urine Appearance Urine pH Ur Specific [place] Urine Protein Urine Glucose (UA) Urine Ketones Urine Blood Urine Nitrite Ur Leukocyte Esterase Urine RBC Urine WBC Ur Squamous Epith Cells Urine Bacteria Hyaline Casts Urine Osmolality Ur Random Sodium Urine Opiates Screen Ur Buprenorphine Scrn Ur Oxycodone Screen Urine Methadone Screen Urine Fentanyl Screen Ur Barbiturates Screen Carbamazepine Ur Phencyclidine Scrn Ur Amphetamines Screen U Benzodiazepines Scrn Urine Cocaine Screen U Marijuana (THC) Screen COVID-19 (TRESA) COVID-19 Clin Com Influenza Type A (AMANDA) Influenza Type B (AMANDA) Influenza A & B Note TB Test (T-Spot) Com TB Test Nil Control TB Test Panel A TB Test Panel B TB Test Positive [facility] 01/03/25 01/03/25 01/03/25 11:07 14:34 14:57 WBC RBC Hgb Hct MCV MCH MCHC RDW Plt Count MPV Immature Gran % (Auto) Neut % (Auto) Lymph % (Auto) [place] % (Auto) Eos % (Auto) Baso % (Auto) Lymph # (Auto) [place] # (Auto) Eos # (Auto) Baso # (Auto) Abs Immat Gran (auto) Absolute Neuts (auto) Absolute Nucleated RBC Nucleated RBC % (auto) Smear Tech's Comments Hold Purple Top VBG pH VBG pCO2 VBG pO2 VBG HCO3 VBG O2 Saturation VBG Base Excess Sodium Potassium Chloride Carbon Dioxide Anion Gap BUN Creatinine Estim Creat Clear Calc Estimated GFR POC Glucose 364 H* 62 82 Random Glucose Estimat Average Glucose Hemoglobin A1c % Osmolality Lactic Acid Calcium Magnesium Iron TIBC % Saturation Unsat Iron Binding Total Bilirubin AST ALT Alkaline Phosphatase Total Protein Albumin Triglycerides Cholesterol LDL Cholesterol, Calc HDL Cholesterol Lipase TSH Free T4 Urine Color Urine Appearance Urine pH Ur Specific [place] Urine Protein Urine Glucose (UA) Urine Ketones Urine Blood Urine Nitrite Ur Leukocyte Esterase Urine RBC Urine WBC Ur Squamous Epith Cells Urine Bacteria Hyaline Casts Urine Osmolality Ur Random Sodium Urine Opiates Screen Ur Buprenorphine Scrn Ur Oxycodone Screen Urine Methadone Screen Urine Fentanyl Screen Ur Barbiturates Screen Carbamazepine Ur Phencyclidine Scrn Ur Amphetamines Screen U Benzodiazepines Scrn Urine Cocaine Screen U Marijuana (THC) Screen COVID-19 (TRESA) COVID-19 Clin Com Influenza Type A (AMANDA) Influenza Type B (AMANDA) Influenza A & B Note TB Test (T-Spot) Com TB Test Nil Control TB Test Panel A TB Test Panel B TB Test Positive [facility] 01/03/25 01/03/25 01/03/25 15:41 16:19 21:13 WBC RBC Hgb Hct MCV MCH MCHC RDW Plt Count MPV Immature Gran % (Auto) Neut % (Auto) Lymph % (Auto) [place] % (Auto) Eos % (Auto) Baso % (Auto) Lymph # (Auto) [place] # (Auto) Eos # (Auto) Baso # (Auto) Abs Immat Gran (auto) Absolute Neuts (auto) Absolute Nucleated RBC Nucleated RBC % (auto) Smear Tech's Comments Hold Purple Top VBG pH VBG pCO2 VBG pO2 VBG HCO3 VBG O2 Saturation VBG Base Excess Sodium Potassium Chloride Carbon Dioxide Anion Gap BUN Creatinine Estim Creat Clear Calc Estimated GFR POC Glucose 136 H 111 226 H Random Glucose Estimat Average Glucose Hemoglobin A1c % Osmolality Lactic Acid Calcium Magnesium Iron TIBC % Saturation Unsat Iron Binding Total Bilirubin AST ALT Alkaline Phosphatase Total Protein Albumin Triglycerides Cholesterol LDL Cholesterol, Calc HDL Cholesterol Lipase TSH Free T4 Urine Color Urine Appearance Urine pH Ur Specific [place] Urine Protein Urine Glucose (UA) Urine Ketones Urine Blood Urine Nitrite Ur Leukocyte Esterase Urine RBC Urine WBC Ur Squamous Epith Cells Urine Bacteria Hyaline Casts Urine Osmolality Ur Random Sodium Urine Opiates Screen Ur Buprenorphine Scrn Ur Oxycodone Screen Urine Methadone Screen Urine Fentanyl Screen Ur Barbiturates Screen Carbamazepine Ur Phencyclidine Scrn Ur Amphetamines Screen U Benzodiazepines Scrn Urine Cocaine Screen U Marijuana (THC) Screen COVID-19 (TRESA) COVID-19 Clin Com Influenza Type A (AMANDA) Influenza Type B (AMANDA) Influenza A & B Note TB Test (T-Spot) Com TB Test Nil Control TB Test Panel A TB Test Panel B TB Test Positive Cntr 01/04/25 01/04/25 01/04/25 06:34 11:21 16:19 WBC RBC Hgb Hct MCV MCH MCHC RDW Plt Count MPV Immature Gran % (Auto) Neut % (Auto) Lymph % (Auto) [place] % (Auto) Eos % (Auto) Baso % (Auto) Lymph # (Auto) [place] # (Auto) Eos # (Auto) Baso # (Auto) Abs Immat Gran (auto) Absolute Neuts (auto) Absolute Nucleated RBC Nucleated RBC % (auto) Smear Tech's Comments Hold Purple Top VBG pH VBG pCO2 VBG pO2 VBG HCO3 VBG O2 Saturation VBG Base Excess Sodium Potassium Chloride Carbon Dioxide Anion Gap BUN Creatinine Estim Creat Clear Calc Estimated GFR POC Glucose 229 H 274 H 125 H Random Glucose Estimat Average Glucose Hemoglobin A1c % Osmolality Lactic Acid Calcium Magnesium Iron TIBC % Saturation Unsat Iron Binding Total Bilirubin AST ALT Alkaline Phosphatase Total Protein Albumin Triglycerides Cholesterol LDL Cholesterol, Calc HDL Cholesterol Lipase TSH Free T4 Urine Color Urine Appearance Urine pH Ur Specific [place] Urine Protein Urine Glucose (UA) Urine Ketones Urine Blood Urine Nitrite Ur Leukocyte Esterase Urine RBC Urine WBC Ur Squamous Epith Cells Urine Bacteria Hyaline Casts Urine Osmolality Ur Random Sodium Urine Opiates Screen Ur Buprenorphine Scrn Ur Oxycodone Screen Urine Methadone Screen Urine Fentanyl Screen Ur Barbiturates Screen Carbamazepine Ur Phencyclidine Scrn Ur Amphetamines Screen U Benzodiazepines Scrn Urine Cocaine Screen U Marijuana (THC) Screen COVID-19 (TRESA) COVID-19 Clin Com Influenza Type A (AMANDA) Influenza Type B (AMANDA) Influenza A & B Note TB Test (T-Spot) Com TB Test Nil Control TB Test Panel A TB Test Panel B TB Test Positive Cntrl 01/04/25 01/05/25 01/05/25 20:51 06:25 11:20 WBC RBC Hgb Hct MCV MCH MCHC RDW Plt Count MPV Immature Gran % (Auto) Neut % (Auto) Lymph % (Auto) [place] % (Auto) Eos % (Auto) Baso % (Auto) Lymph # (Auto) [place] # (Auto) Eos # (Auto) Baso # (Auto) Abs Immat Gran (auto) Absolute Neuts (auto) Absolute Nucleated RBC Nucleated RBC % (auto) Smear Tech's Comments Hold Purple Top VBG pH VBG pCO2 VBG pO2 VBG HCO3 VBG O2 Saturation VBG Base Excess Sodium Potassium Chloride Carbon Dioxide Anion Gap BUN Creatinine Estim Creat Clear Calc Estimated GFR POC Glucose 214 H 242 H 215 H Random Glucose Estimat Average Glucose Hemoglobin A1c % Osmolality Lactic Acid Calcium Magnesium Iron TIBC % Saturation Unsat Iron Binding Total Bilirubin AST ALT Alkaline Phosphatase Total Protein Albumin Triglycerides Cholesterol LDL Cholesterol, Calc HDL Cholesterol Lipase TSH Free T4 Urine Color Urine Appearance Urine pH Ur Specific [place] Urine Protein Urine Glucose (UA) Urine Ketones Urine Blood Urine Nitrite Ur Leukocyte Esterase Urine RBC Urine WBC Ur Squamous Epith Cells Urine Bacteria Hyaline Casts Urine Osmolality Ur Random Sodium Urine Opiates Screen Ur Buprenorphine Scrn Ur Oxycodone Screen Urine Methadone Screen Urine Fentanyl Screen Ur Barbiturates Screen Carbamazepine Ur Phencyclidine Scrn Ur Amphetamines Screen U Benzodiazepines Scrn Urine Cocaine Screen U Marijuana (THC) Screen COVID-19 (TRESA) COVID-19 Clin Com Influenza Type A (AMANDA) Influenza Type B (AMANDA) Influenza A & B Note TB Test (T-Spot) Com TB Test Nil Control TB Test Panel A TB Test Panel B TB Test Positive [facility] 01/05/25 01/05/25 01/06/25 16:12 20:09 06:17 WBC RBC Hgb Hct MCV MCH MCHC RDW Plt Count MPV Immature Gran % (Auto) Neut % (Auto) Lymph % (Auto) [place] % (Auto) Eos % (Auto) Baso % (Auto) Lymph # (Auto) [place] # (Auto) Eos # (Auto) Baso # (Auto) Abs Immat Gran (auto) Absolute Neuts (auto) Absolute Nucleated RBC Nucleated RBC % (auto) Smear Tech's Comments Hold Purple Top VBG pH VBG pCO2 VBG pO2 VBG HCO3 VBG O2 Saturation VBG Base Excess Sodium Potassium Chloride Carbon Dioxide Anion Gap BUN Creatinine Estim Creat Clear Calc Estimated GFR POC Glucose 167 H 137 H 263 H Random Glucose Estimat Average Glucose Hemoglobin A1c % Osmolality Lactic Acid Calcium Magnesium Iron TIBC % Saturation Unsat Iron Binding Total Bilirubin AST ALT Alkaline Phosphatase Total Protein Albumin Triglycerides Cholesterol LDL Cholesterol, Calc HDL Cholesterol Lipase TSH Free T4 Urine Color Urine Appearance Urine pH Ur Specific [place] Urine Protein Urine Glucose (UA) Urine Ketones Urine Blood Urine Nitrite Ur Leukocyte Esterase Urine RBC Urine WBC Ur Squamous Epith Cells Urine Bacteria Hyaline Casts Urine Osmolality Ur Random Sodium Urine Opiates Screen Ur Buprenorphine Scrn Ur Oxycodone Screen Urine Methadone Screen Urine Fentanyl Screen Ur Barbiturates Screen Carbamazepine Ur Phencyclidine Scrn Ur Amphetamines Screen U Benzodiazepines Scrn Urine Cocaine Screen U Marijuana (THC) Screen COVID-19 ([facility]) COVID-19 Clin Com Influenza Type A (AMANDA) Influenza Type B (AMANDA) Influenza A & B Note TB Test (T-Spot) Com TB Test Nil Control TB Test Panel A TB Test Panel B TB Test Positive [facility] 01/06/25 01/06/25 01/06/25 11:00 16:22 21:22 WBC RBC Hgb Hct MCV MCH MCHC RDW Plt Count MPV Immature Gran % (Auto) Neut % (Auto) Lymph % (Auto) [place] % (Auto) Eos % (Auto) Baso % (Auto) Lymph # (Auto) [place] # (Auto) Eos # (Auto) Baso # (Auto) Abs Immat Gran (auto) Absolute Neuts (auto) Absolute Nucleated RBC Nucleated RBC % (auto) Smear Tech's Comments Hold Purple Top VBG pH VBG pCO2 VBG pO2 VBG HCO3 VBG O2 Saturation VBG Base Excess Sodium Potassium Chloride Carbon Dioxide Anion Gap BUN Creatinine Estim Creat Clear Calc Estimated GFR POC Glucose 194 H 106 227 H Random Glucose Estimat Average Glucose Hemoglobin A1c % Osmolality Lactic Acid Calcium Magnesium Iron TIBC % Saturation Unsat Iron Binding Total Bilirubin AST ALT Alkaline Phosphatase Total Protein Albumin Triglycerides Cholesterol LDL Cholesterol, Calc HDL Cholesterol Lipase TSH Free T4 Urine Color Urine Appearance Urine pH Ur Specific [place] Urine Protein Urine Glucose (UA) Urine Ketones Urine Blood Urine Nitrite Ur Leukocyte Esterase Urine RBC Urine WBC Ur Squamous Epith Cells Urine Bacteria Hyaline Casts Urine Osmolality Ur Random Sodium Urine Opiates Screen Ur Buprenorphine Scrn Ur Oxycodone Screen Urine Methadone Screen Urine Fentanyl Screen Ur Barbiturates Screen Carbamazepine Ur Phencyclidine Scrn Ur Amphetamines Screen U Benzodiazepines Scrn Urine Cocaine Screen U Marijuana (THC) Screen COVID-19 ([facility]) COVID-19 Clin Com Influenza Type A (AMANDA) Influenza Type B (AMANDA) Influenza A & B Note TB Test (T-Spot) Com TB Test Nil Control TB Test Panel A TB Test Panel B TB Test Positive [facility] 01/07[facility] 01/07/25 01/07/25 06:25 11:28 16:08 WBC RBC Hgb Hct MCV MCH MCHC RDW Plt Count MPV Immature Gran % (Auto) Neut % (Auto) Lymph % (Auto) [place] % (Auto) Eos % (Auto) Baso % (Auto) Lymph # (Auto) [place] # (Auto) Eos # (Auto) Baso # (Auto) Abs Immat Gran (auto) Absolute Neuts (auto) Absolute Nucleated RBC Nucleated RBC % (auto) Smear Tech's Comments Hold Purple Top VBG pH VBG pCO2 VBG pO2 VBG HCO3 VBG O2 Saturation VBG Base Excess Sodium Potassium Chloride Carbon Dioxide Anion Gap BUN Creatinine Estim Creat Clear Calc Estimated GFR POC Glucose 223 H 300 H 151 H Random Glucose Estimat Average Glucose Hemoglobin A1c % Osmolality Lactic Acid Calcium Magnesium Iron TIBC % Saturation Unsat Iron Binding Total Bilirubin AST ALT Alkaline Phosphatase Total Protein Albumin Triglycerides Cholesterol LDL Cholesterol, Calc HDL Cholesterol Lipase TSH Free T4 Urine Color Urine Appearance Urine pH Ur Specific [place] Urine Protein Urine Glucose (UA) Urine Ketones Urine Blood Urine Nitrite Ur Leukocyte Esterase Urine RBC Urine WBC Ur Squamous Epith Cells Urine Bacteria Hyaline Casts Urine Osmolality Ur Random Sodium Urine Opiates Screen Ur Buprenorphine Scrn Ur Oxycodone Screen Urine Methadone Screen Urine Fentanyl Screen Ur Barbiturates Screen Carbamazepine Ur Phencyclidine Scrn Ur Amphetamines Screen U Benzodiazepines Scrn Urine Cocaine Screen U Marijuana (THC) Screen COVID-19 ([facility]) COVID-19 Clin Com Influenza Type A (AMANDA) Influenza Type B (AMANDA) Influenza A & B Note TB Test (T-Spot) Com TB Test Nil Control TB Test Panel A TB Test Panel B TB Test Positive Cntrl 01/07/25 01/08/25 20:14 05:41 WBC RBC Hgb Hct MCV MCH MCHC RDW Plt Count MPV Immature Gran % (Auto) Neut % (Auto) Lymph % (Auto) [place] % (Auto) Eos % (Auto) Baso % (Auto) Lymph # (Auto) [place] # (Auto) Eos # (Auto) Baso # (Auto) Abs Immat Gran (auto) Absolute Neuts (auto) Absolute Nucleated RBC Nucleated RBC % (auto) Smear Tech's Comments Hold Purple Top VBG pH VBG pCO2 VBG pO2 VBG HCO3 VBG O2 Saturation VBG Base Excess Sodium Potassium Chloride Carbon Dioxide Anion Gap BUN Creatinine Estim Creat Clear Calc Estimated GFR POC Glucose 156 H 184 H Random Glucose Estimat Average Glucose Hemoglobin A1c % Osmolality Lactic Acid Calcium Magnesium Iron TIBC % Saturation Unsat Iron Binding Total Bilirubin AST ALT Alkaline Phosphatase Total Protein Albumin Triglycerides Cholesterol LDL Cholesterol, Calc HDL Cholesterol Lipase TSH Free T4 Urine Color Urine Appearance Urine pH Ur Specific [place] Urine Protein Urine Glucose (UA) Urine Ketones Urine Blood Urine Nitrite Ur Leukocyte Esterase Urine RBC Urine WBC Ur Squamous Epith Cells Urine Bacteria Hyaline Casts Urine Osmolality Ur Random Sodium Urine Opiates Screen Ur Buprenorphine Scrn Ur Oxycodone Screen Urine Methadone Screen Urine Fentanyl Screen Ur Barbiturates Screen Carbamazepine Ur Phencyclidine Scrn Ur Amphetamines Screen U Benzodiazepines Scrn Urine Cocaine Screen U Marijuana (THC) Screen COVID-19 ([facility]) COVID-19 Clin Com Influenza Type A (AMANDA) Influenza Type B (AMANDA) Influenza A & B Note TB Test (T-Spot) Com TB Test Nil Control TB Test Panel A TB Test Panel B TB Test Positive Cntrl Airway Mallampati Class: II TM Dist: >3cm Neck ROM: Full Partial: Upper Heart: rrr Lungs: cta Assessment and Plan Assessment Anesthesia Assessment: Anesthesia Plan Discussed and Chart Reviewed Final Anesthetic Review Family History of Problems with Anesthesia: No History of Problems with Anesthesia: No NPO: Yes ASA Class: III Final Preanesthetic Review: No Changes in Pt Med Stat, Meds/Allgs Chart Reviewed and Consent Obtained/Reviewed Patient Risk: Intermediate Procedure Risk: Intermediate Anesthetic Plan Anesthetic Plan: GA Disposition: Standard PACU
--- NOTE | 2025-01-08 07:52 | HO.ECTPROC ---
ECT Procedure Note Diagnosis/Treatment Date of Service: 01/08/25 Diagnosis: Major Depressive Disorder Previous ECT Date: 01/03/25 Current Treatment Number: 7 Treatment: Series Interval Clinical Notes: appears improved from baseline. no changes overnight. Time: Total time managing care of this patient today __35__ minutes. ECT Settings Device: THYMATRON DGx Electrode Placement: Bitemporal Program/Pulse Width: 0.50 Energy Percent: 100 Seizure Duration By EEG (in seconds): 24 Medications Administration General Anesthetic: Etomidate (12) Muscle Relaxant: Succinylcholine (60) Ancillary Medications Miscillaneous Medications: Flumazenil (500 mcg) Airway Management Airway Management: Bag Mask Ventilation Treatment Recommendations No Changes Recommended: No change Notes: no issues Pt Tolerated Procedure w/o Issue: Yes
[2025-01-08] MEDS: buPROPion HCl XL 150 MG TAB.ER.24H PO (09:53)
[2025-01-08] MEDS: Fluticasone/Vilanterol 100/25 BLST.W.DEV 1 PUFF INHALE (10:00)
[2025-01-08 11:03] LABS: Glucose, Whole Blood 295 mg/dL (60-115)
[2025-01-08] MEDS: Magnesium Hydrox/Alum Hydrox 30 ML ORAL.SUSP PO (11:43)
--- NOTE | 2025-01-08 13:20 | HO.PSYCHPN ---
Subjective Subjective Date of Service: 01/08/25 Reason For Visit: SI with plan to OD on medications, increased anxie Interim History: improved mood with ECT. poor appetite continues. wants to continue ECT outpt. per staff, c/o decreased appetite. somatic. social. no SI. showered. slept 8 hours. Mental Status Exam Mental Status Exam Narrative: She is alert, pleasant and cooperative. Speech is normal. good eye contact. Affect is appropriate and contained. anxiety continues, depression much improved. No acute signs of psychosis. Cognitively impaired. Judgment is impaired Diagnostics Vital Signs (24Hr): Vital Signs - 24 hr 01/07/25 20:00 01/08/25 05:46 01/08/25 06:36 Temperature 97.2 F 98.3 F 97.7 F Pulse Rate 82 89 83 Respiratory Rate 17 16 18 Blood Pressure 136/79 126/63 135/73 Pulse Oximetry 99 97 94 Oxygen Delivery Method Room Air Room Air Room Air Oxygen Flow Rate 01/08/25 07:55 01/08/25 08:00 01/08/25 08:05 Temperature 98.3 F 98.3 F Pulse Rate 76 76 84 Respiratory Rate 16 16 16 Blood Pressure 191/96 H 191/96 H 160/89 H Pulse Oximetry 100 100 95 Oxygen Delivery Method Nasal Cannula Nasal Cannula Room Air Oxygen Flow Rate 2 2 01/08/25 08:10 01/08/25 08:15 01/08/25 08:30 Temperature Pulse Rate 83 83 79 Respiratory Rate 16 20 20 Blood Pressure 171/95 H 145/79 H 155/76 H Pulse Oximetry 95 97 97 Oxygen Delivery Method Room Air Room Air Room Air Oxygen Flow Rate 01/08/25 08:45 01/08/25 09:52 01/08/25 09:53 Temperature 97.5 F Pulse Rate 80 Respiratory Rate 18 Blood Pressure 157/71 H 152/76 H 152/76 H Pulse Oximetry 98 Oxygen Delivery Method Room Air Oxygen Flow Rate BMI result Body Mass Index 22.8 Labs 11/02/24 20:14 12/20/24 08:43 Labs: Laboratory Results - last 48 hr 01/06/25 01/06/25 01/07/25 16:22 21:22 06:25 POC Glucose 106 227 H 223 H 01/07/25 01/07/25 01/07/25 11:28 16:08 20:14 POC Glucose 300 H 151 H 156 H 01/08/25 01/08/25 05:41 10:59 POC Glucose 184 H 295 H Imaging Radiology Impressions: ITS Impressions Hip/Pelvis X-Ray 11/05/24 11:00 IMPRESSION: Unremarkable examination of the left hip. Electronically signed by: Sam Saini MD 11/05/2024 11:13 AM EDT RP KUB X-Ray 11/06/24 09:20 IMPRESSION: Large amount of stool throughout the colon. Electronically signed by: Sam Saini MD 11/06/2024 09:34 AM EDT RP Head CT 11/08/24 14:58 IMPRESSION: Left frontal soft tissue swelling. No acute intracranial abnormality. Electronically signed by: Sam Saini MD 11/08/2024 03:18 PM EDT RP Medications Medications Current Medications Acetaminophen (Acetaminophen 325 Mg Tablet) 650 mg PO Q6H PRN PRN Reason: Headache/Pain, Scale 1-10 Last Admin: 01/07/25 20:19 Dose: 650 mg Al Hydroxide/Mg Hydroxide (Magnesium Hydrox/Alum Hydrox 30 Ml Oral.Susp) 30 ml PO Q6H PRN PRN Reason: Heartburn/Nausea Last Admin: 01/08/25 11:43 Dose: 30 ml Albuterol Sulfate (Albuterol Sulfate (0.083%) 2.5 Mg/3 Ml Vial.Neb) 2.5 mg INHALE ONCE PRN PRN Reason: Shortness of Breath/Wheezing Last Admin: 12/16/24 07:11 Dose: 2.5 mg Albuterol Sulfate (Albuterol Sulfate 90 Mcg 8 Gm Inhaler) 4 puff INHALE Q4H PRN PRN Reason: Shortness Of Breath Or Wheezin Amlodipine Besylate (Amlodipine Besylate 2.5 Mg Tablet) 2.5 mg PO DAILY RICHARD; Protocol Last Admin: 01/08/25 09:52 Dose: 2.5 mg Atorvastatin Calcium (Atorvastatin Calcium 20 Mg Tablet) 20 mg PO DAILY [facility] Last Admin: 01/08/25 09:53 Dose: 20 mg Bisacodyl (Bisacodyl 10 Mg Supp.Rect) 10 mg IL BEDTIME PRN PRN Reason: Constipation Last Admin: 11/04/24 20:37 Dose: 10 mg Bupropion HCl (Bupropion Hcl Xl 150 Mg Tab.Er.24h) 150 mg PO DAILY [facility] Last Admin: 01/08/25 09:53 Dose: 150 mg Buspirone HCl (Buspirone Hcl 10 Mg Tablet) 20 mg PO TID [facility] Last Admin: 01/08/25 09:52 Dose: 20 mg Calcium Carbonate (Calcium Carbonate 750 Mg Tab.Chew) 750 mg PO Q4H PRN PRN Reason: Heartburn Last Admin: 11/30/24 21:34 Dose: 750 mg Clonazepam (Clonazepam Odt 0.125 Mg Tab.Rapdis) 0.125 mg PO BID PRN PRN Reason: severe anxiety Last Admin: 01/01/25 10:00 Dose: 0.125 mg Dicyclomine HCl (Dicyclomine Hcl 10 Mg Capsule) 10 mg PO Q4H PRN PRN Reason: abdominal cramping Last Admin: 12/17/24 13:55 Dose: 10 mg Docusate Sodium (Docusate Sodium 100 Mg Capsule) 100 mg PO BID [facility] Last Admin: 01/08/25 09:54 Dose: 100 mg Duloxetine HCl (Duloxetine Hcl 60 Mg Capsule.Dr) 60 mg PO DAILY [facility] Last Admin: 01/08/25 09:53 Dose: 60 mg Fluticasone/Vilanterol (Fluticasone/Vilanterol 100/25 Blst.W.Dev) 1 puff INHALE RDAILY [facility] Last Admin: 01/08/25 10:00 Dose: 1 puff Glipizide (Glipizide Xl 2.5 Mg Tab.Er.24) 2.5 mg PO DAILY [facility] Last Admin: 01/08/25 09:54 Dose: 2.5 mg Guaifenesin (Guaifenesin La 600 Mg Tab.Er.12h) 1,200 mg PO BID PRN PRN Reason: Cough Last Admin: 12/16/24 14:35 Dose: 1,200 mg Lactated Ringer's (Lr) 1,000 mls @ 50 mls/hr IVCONT .Q20H [facility] Last Admin: 01/08/25 06:45 Dose: 50 mls/hr Insulin Human Lispro (Insulin Lispro 100 Unit/Ml 3 Ml Vial) 0 unit SUBCUT TIDAC [facility]; Protocol Last Admin: 01/08/25 11:43 Dose: 1 unit Lisinopril (Lisinopril 2.5 Mg Tablet) 2.5 mg PO DAILY [facility]; Protocol Last Admin: 01/08/25 09:53 Dose: 2.5 mg Magnesium Hydroxide (Milk Of Magnesia 30 Ml Oral.Susp) 30 ml PO DAILY PRN PRN Reason: Constipation Last Admin: 11/04/24 16:49 Dose: 30 ml Mirtazapine (Mirtazapine 30 Mg Tablet) 30 mg PO BEDTIME [facility] Last Admin: 01/07/25 20:19 Dose: 30 mg Naloxone HCl (Naloxone Hcl 0.4 Mg/Ml Vial) 0.04 mg IVPUSH Q5M PRN PRN Reason: Excessive sedation or RR < 8 Naloxone HCl (Naloxone Hcl 0.4 Mg/Ml Vial) 0.04 mg IVPUSH Q5M PRN PRN Reason: Excessive sedation or RR < 8 Omeprazole (Omeprazole 20 Mg Capsule.Dr) 20 mg PO BID@0630,1630 [facility] Last Admin: 01/08/25 05:37 Dose: Not Given Ondansetron HCl (Ondansetron Odt 4 Mg Tab.Rapdis) 4 mg TRANSLINGU Q4H PRN PRN Reason: Nausea and Vomiting Last Admin: 01/07/25 20:19 Dose: 4 mg Polyethylene Glycol (Polyethylene Glycol 3350 17 Gm Powd.Pack) 17 gm PO BID [facility] Last Admin: 01/08/25 10:17 Dose: Not Given Pyridoxine HCl (Pyridoxine Hcl (Vitamin B6) 50 Mg Tablet) 50 mg PO DAILY [facility] Last Admin: 01/08/25 09:53 Dose: 50 mg Ropinirole HCl (Ropinirole Hcl 2 Mg Tablet) 2 mg PO DAILY@1700 [facility] Last Admin: 01/07/25 16:34 Dose: 2 mg Ropinirole HCl (Ropinirole Hcl 0.5 Mg Tablet) 0.5 mg PO DAILY [facility] Last Admin: 01/08/25 09:53 Dose: 0.5 mg Simethicone (Simethicone 80 Mg Tab.Chew) 80 mg PO QIDWMHS [facility] Last Admin: 01/08/25 11:44 Dose: 80 mg Trazodone HCl (Trazodone Hcl 50 Mg Tablet) 50 mg PO BEDTIME MRX1 PRN PRN Reason: Insomnia Last Admin: 01/06/25 20:47 Dose: 50 mg Allergies Allergies Allergy/AdvReac Type Severity Reaction Status Date / Time ampicillin Allergy Rash Verified 10/20/24 19:28 morphine Allergy Rash Verified 10/20/24 19:28 Penicillins Allergy Rash Verified 10/20/24 19:28 pork derived (porcine) Allergy Vomiting Verified 11/10/24 17:49 Assessment & Plan Assessment & Plan (1) MDD (major depressive disorder), recurrent episode, moderate: Status: Acute Code(s): F33.1 - Major depressive disorder, recurrent, moderate (2) SHEILA (generalized anxiety disorder): Status: Acute Code(s): F41.1 - Generalized anxiety disorder (3) Forehead laceration: Status: Acute Code(s): S01.81XA - Laceration without foreign body of other part of head, initial encounter Assessment and Plan: Anxiety with suicidal ideation Plan per Psychiatry Undergoing ECT treatments Type 2 diabetes Continue with glipizide and SS Recent A1c 7.2, acceptable range for her age. We will add sliding scale insulin to improve glucose control, to help with symptoms of gastroparesis Avoid hypoglycemia, sugars 200-300 acceptable. Chronic abdominal plain/gastroparesis, chronic mild gastritis, history of diverticulosis Patient is at [facility], she has had Botox injections in the past last in March 2024 Patient had a recent upper endoscopy negative for H pylori or any abnormalities Continues on duloxetine, may help with chronic pain. Continues with omeprazole twice daily Avoid constipation. Avoid opiates and anticholinergics Restless leg syndrome Patient continues on gabapentin and Mirapex twice daily Hypertension/hyperlipidemia Continue atorvastatin, lisinopril, and amlodipine Blood pressure stable Plan Mrs. Barreto is a 78 year-old woman with hx of MDD who was assessed by N at request of her son who called 911 after pt had reported suicidal ideation with plan to OD. In the ED, pt adamantly denied suicidal ideation but reports feeling increasingly more depressed due to involuntary, ongoing movement of lower extremities. She attributes her depressed mood and increase anxious mood to RLS. She has also been treated as tardive akathisia, note that she was previously prescribed abilify. It is noted that she may have iron deficiency due to normocytic anemia which can exacerbate RLS. It is unclear which medications for hyperkinetic movements of the legs are actually helpful and furthermore it is not easily to differentiate whether it is tardive akathisia or RLS. She has been on psychotropic medications that are known to cause akathisia such as abilify. She reports subjective sense of restlessness. Involuntary movement seems to be throughout the day. We will have to do trial of medications that target akathisia such as propanolol and ativan versus medications such as pramipexol for RLS (note that in RLS there is an initial relief with dopamine agonist but can make it worse over time). In addition, will try iron deficiency as it is an underlying cause and exacerbating factor in RLS. PLAN 11/14 continue tx. will monitor before making substantial changes every day. 11/15 continue tx. pt somatically preoccupied. 11/16: Continue current management and treatment plan. 11/17: continue current management and treatment plan. 11/18 start buspar 10mg po TID for SHEILA. continue all other meds. 11/19 increase buspar 20mg po TID 11/20 appears calmer, less somatically preoccupied. continue current medications. 11/21 sodium stable. continues to present as less dysphoric, calmer. reports of dizziness (VS not hotn nor orthostatic), ?vertigo, will try low dose of meclizine otherwise will consult hospitalist for further management. 8.2- pt more focused on gi issues- and anxiety/forgetfulness- continue to monitor somatic complaints- dc qid poc 11/25 will lowered ropinirole as it may increasing anxiety, noted that buspar was lowered, do not think this medication was causing fogginess as pt appeared much calmer since we added buspar. She was started on low dose clonazepam. 11/26 continue tx. received one time dose xanax, but reported feeling overly sedated (although did not appear sedated) 11/27 somatically p8/: Continue current regimen and plansreoccupied, no change in medications. 11/29 continue tx. 11/30: Continue current regimen and plans 12/01: Continue current plans and regimen 12/02 increase buspar 20mg po TID. 12/03: reports depression not improving, c/o feeling low energy and motivation, saying she needs a pickle sorter. start wellbutrin XL 150 daily tomorrow for depression. also c/o anxiety-provoking and nocturnally loud peer. schedule klonopin 0.25 QHS for insomnia. otherwise continue current mgmt. awaiting placement. 12/04: slept well last night, started wellbutrin this morning without incident. continue current mgmt. will be discharging to [facility]. 12/05: slept well. c/o anxiety at 3-330 in the afternoon. pt to ask for klonopin PRN at 2-230. trend anxiety, T/C DC of wellbutrin if anxiety seems reliably increased since starting it. dispo next week likely. 12/06: anxious. schedule klonopin 0.25 mg Qdaily at 1430 per pt request. otherwise continue current mgmt. 12/07: anxious and depressed. c/o insomnia. will give wellbutrin a few more days to see if insomnia subsides and mood improves. per staf, stable and uneventful presentation. 12/08: depressed. agreeable to increase wellbutrin to 300 mg as of tomorrow. otherwise continue current mgmt. sleeping well. 12/09: started wellbutrin 300 today. c/o URI Sx, start guaifenesin. otherwise continue current mgmt. 12/10: coughin much eves/NOC per staff. pt c/o not happy, cough, and poor sleep. continue mucinex and mental health Tx plan otherwise. 12/11/24: Patient appeared to slept for 8 hours, was medication compliant but refused the MiraLax. Denies side effects. She is observed watching TV in common area. Reported that she feel anxious and depressed. She is worry about when she is leaving as she is going to stay by herself. I am depressed . Self reports that she did not sleep well last night as roommate waking her up at night telling her that she saw dogs. She reports normal stomach pain. She would hope to see the GI doctor after discharge. She reported that she will be discharged on 12/17 but not sure the name of the facility or where it is located. Denies safety concerns, denies hallucinations. No coughing observed this morning. 12/12: c/o unremitting depression, saying she does not want to live like this. interested in ECT, educated re the procedure. obtain risk strat and EKG, discuss in rounds tomorrow morning. otherwise continue current mgmt. 12/13: continues to push for ECT. seen by hospitalist, no relative contraindications to the procedure. case d/w patient's daughter chantelle as well, who avers that pt has been in this state for a long time, it's only getting worse, and medications have not been helpful. johanna supports this trial on the wishes of her mother and MD's recommendation. ECT ordered, will get pt on the schedule as soon as possible. 12/14: Cough-productive, O2 sats are lower , CXR positive. Seen by hospitalist. Antibiotics initiated, R/O pneumonia 12/15: Pt unable to tolerate doxycycline. Hospitalist will change to Ceftin. 12/16: ECT held today due to januvia and respiratory virus. mood slightly improved. plan for ECT. 12/17: COVID and flu NEG. c/o nausea, exacerbation of chronic condition, h/o gastroparesis. holding januvia. start reglan for gastroparesis. continue current mgmt otherwise. NPO past MN for ECT tomorrow. 12/18: awaiting med clearance for ECT. planning for ECT monday. otherwise continue current mgmt. glucose noted to be elevated since holding januvia the past several days. 12/19 continue current medications. pt hopefull will have ECT tomorrow. NPO from midnight. 12/20 continue tx. Had ECT #1 no complications noted or reported. 12/21:Continue ECT. 12/22: Increase Klonopin PRN to BID. Otherwise continue current management and treatment plan. 12/23: continue current management and treatment plan. 12/24 continue tx. ECT tomorrow, NPO after midnight. 12/25 continue tx. 12/26: ECT #3 completed today. pleasant, feeling improved. Sz duration longer than prior but remains suboptimal. will DC gabapentin and decrease PRN klonopin to 0.125 mg per dose. next ECT monday. continue current mgmt otherwise. 12/28 Patient says she is all right and no complaints other than restless leg/akathisia which she says is bothering her. Discussed ECT and patient says she wants to continue getting ECT which she thinks is helpful and is why she wants to remain inpatient. [employer] Scorer agreed to: -order extra ropinrile 1mg daily prn 12/29Patient says she is so-so and Continues to have akathisia; patient benefitted somewhat from propranolol, which is preferable to increasing ropinirole (BP these mildly hypertensive; regular heart rate). Review of chart and patient was started on metoclopramide for diabetic gastroparesis. Discussed with patient who agrees to lowering metoclopramide; will increase propranolol and DC p.r.n. ropinirole -lower metoclopramide to 3 mg t.i.d. a.c.; (no N/V or constipation) -increase to propranolol 10 mg t.i.d. p.r.n. for restless leg -DC extra p.r.n. ropinirole 12/30: c/o restless legs. notes reviewed on the subject, plan noted. had ECT today, believes she is only having one more. anxiety Sx appear worse than prior, difficult to assess mood under the circumstances. continue current mgmt for now. 12/31: reglan DCed but still c/o RLS. requip Rx noted. ECT tomorrow. i don't feel down. NPO past MN, otherwise continue current mgmt. 01/01: stable, depression/anxiety lessened. awaiting ECT today. c/o RLS, plan to restart gabapentin after ECT course is finished. continue current mgmt otherwise. 01/02: appears more affectively flexible. reports mood OK. no somatic complaints or requests of MD. would like tomorrow's ECT, #6, to be her final of the series. continue current mgmt for now. NPO past MN. 01/03/2025 ECT held on 6. Consider restart if needed patient does appear open to this. Continue Wellbutrin and Cymbalta 01/04: continue, will explore whether or not to do additional ECT on Friday 01/05: will make NPO after midnight, patient aware - primary team may decide not to proceed with ECT tomorrow 01/06/2025 Low Wellbutrin to 150 mg secondary to anxiety and decreased appetite. restart ECT patient agreeable for better control and durability of symptoms 01/07: DC pramipexole in the morning, substitute with ropinirole, which pt also taking in substantial amount eves. 2 more ECTs, then planning to discharge 01/14. T/C maintenance ECT. decrease in wellbutrin noted, pt c/o poor appetite. 01/08: ECT today. feeling more disoriented after, return to electrode placement right temporal and left frontal. planning for weekly ECT fridays for the next 5 weeks as of tomorrow. DC wellbutrin for anorexia. case discussed with pt's daughter johanna. continue current mgmt otherwise. Reason for continued inpatient stay Substantial Risk for: inability to function and rapid decompensation Time Spent With Patient Time: Total time managing care of this patient today __35__ minutes.
[2025-01-08 16:00] LABS: Glucose, Whole Blood 226 mg/dL (60-115)
[2025-01-08 20:59] LABS: Glucose, Whole Blood 163 mg/dL (60-115)
[2025-01-09 06:39] LABS: Glucose, Whole Blood 231 mg/dL (60-115)
[2025-01-09 08:00] VITALS: BP 139/94; PULSE 94; RESP 16; TEMP 36.6; O2SAT 98
[2025-01-09] MEDS: Fluticasone/Vilanterol 100/25 BLST.W.DEV 1 PUFF INHALE (08:08)
[2025-01-09 08:11] VITALS: BP 139/94
[2025-01-09] MEDS: buPROPion HCl XL 150 MG TAB.ER.24H PO (08:11)
[2025-01-09 08:30] VITALS: BMI 22.6
[2025-01-09 11:14] LABS: Glucose, Whole Blood 168 mg/dL (60-115)
--- NOTE | 2025-01-09 14:26 | P.PNPSI_ITS ---
Subjective Subjective Date of Service: 01/09/25 Reason For Visit: SI with plan to OD on medications, increased anxie Interim History: mood still improved. ECT tomorrow. no complaints or requests. informed pt MD spoke with her daughter yesterday. Mental Status Exam Mental Status Exam Narrative: She is alert, pleasant and cooperative. Speech is normal. good eye contact. Affect is appropriate and contained. anxiety continues, depression much improved. No acute signs of psychosis. Cognitively impaired. Judgment is impaired Diagnostics Vital Signs (24Hr): Vital Signs - 24 hr 01/08/25 20:00 01/09/25 08:00 01/09/25 08:00 Temperature 97 F 97.9 F 97.9 F Pulse Rate 80 94 94 Respiratory Rate 16 16 16 Blood Pressure 140/83 H 139/94 H 139/94 H Pulse Oximetry 98 98 98 Oxygen Delivery Method Room Air Room Air Room Air 01/09/25 08:11 01/09/25 08:11 Temperature Pulse Rate Respiratory Rate Blood Pressure 139/94 H 139/94 H Pulse Oximetry Oxygen Delivery Method BMI result Body Mass Index 22.6 Labs 11/02/24 20:14 12/20/24 08:43 Labs: Laboratory Results - last 48 hr 01/07/25 01/07/25 01/08/25 16:08 20:14 05:41 POC Glucose 151 H 156 H 184 H 01/08/25 01/08/25 01/08/25 10:59 15:51 20:55 POC Glucose 295 H 226 H 163 H 01/09/25 01/09/25 06:27 11:07 POC Glucose 231 H 168 H Imaging Radiology Impressions: ITS Impressions Hip/Pelvis X-Ray 11/05/24 11:00 IMPRESSION: Unremarkable examination of the left hip. Electronically signed by: Sam Saini MD 11/05/2024 11:13 AM EDT RP KUB X-Ray 11/06/24 09:20 IMPRESSION: Large amount of stool throughout the colon. Electronically signed by: Sam Saini MD 11/06/2024 09:34 AM EDT RP Head CT 11/08/24 14:58 IMPRESSION: Left frontal soft tissue swelling. No acute intracranial abnormality. Electronically signed by: Sam Saini MD 11/08/2024 03:18 PM EDT RP Medications Medications Current Medications Acetaminophen (Acetaminophen 325 Mg Tablet) 650 mg PO Q6H PRN PRN Reason: Headache/Pain, Scale 1-10 Last Admin: 01/07/25 20:19 Dose: 650 mg Al Hydroxide/Mg Hydroxide (Magnesium Hydrox/Alum Hydrox 30 Ml Oral.Susp) 30 ml PO Q6H PRN PRN Reason: Heartburn/Nausea Last Admin: 01/08/25 11:43 Dose: 30 ml Albuterol Sulfate (Albuterol Sulfate (0.083%) 2.5 Mg/3 Ml Vial.Neb) 2.5 mg INHALE ONCE PRN PRN Reason: Shortness of Breath/Wheezing Last Admin: 12/16/24 07:11 Dose: 2.5 mg Albuterol Sulfate (Albuterol Sulfate 90 Mcg 8 Gm Inhaler) 4 puff INHALE Q4H PRN PRN Reason: Shortness Of Breath Or Wheezin Amlodipine Besylate (Amlodipine Besylate 2.5 Mg Tablet) 2.5 mg PO DAILY [facility]; Protocol Last Admin: 01/09/25 08:11 Dose: 2.5 mg Atorvastatin Calcium (Atorvastatin Calcium 20 Mg Tablet) 20 mg PO DAILY [facility] Last Admin: 01/09/25 08:11 Dose: 20 mg Bisacodyl (Bisacodyl 10 Mg Supp.Rect) 10 mg [place] BEDTIME PRN PRN Reason: Constipation Last Admin: 11/04/24 20:37 Dose: 10 mg Bupropion HCl (Bupropion Hcl Xl 150 Mg Tab.Er.24h) 150 mg PO DAILY [facility] Last Admin: 01/09/25 08:11 Dose: 150 mg Buspirone HCl (Buspirone Hcl 10 Mg Tablet) 20 mg PO TID RICHARD Last Admin: 01/09/25 08:11 Dose: 20 mg Calcium Carbonate (Calcium Carbonate 750 Mg Tab.Chew) 750 mg PO Q4H PRN PRN Reason: Heartburn Last Admin: 11/30/24 21:34 Dose: 750 mg Clonazepam (Clonazepam Odt 0.125 Mg Tab.Rapdis) 0.125 mg PO BID PRN On Hold: 01/09/25 14:25 PRN Reason: severe anxiety Last Admin: 01/01/25 10:00 Dose: 0.125 mg Dicyclomine HCl (Dicyclomine Hcl 10 Mg Capsule) 10 mg PO Q4H PRN PRN Reason: abdominal cramping Last Admin: 12/17/24 13:55 Dose: 10 mg Docusate Sodium (Docusate Sodium 100 Mg Capsule) 100 mg PO BID [facility] Last Admin: 01/09/25 08:12 Dose: 100 mg Duloxetine HCl (Duloxetine Hcl 60 Mg Capsule.Dr) 60 mg PO DAILY [facility] Last Admin: 01/09/25 08:12 Dose: 60 mg Fluticasone/Vilanterol (Fluticasone/Vilanterol 100/25 Blst.W.Dev) 1 puff INHALE RDAILY [facility] Last Admin: 01/09/25 08:08 Dose: 1 puff Glipizide (Glipizide Xl 2.5 Mg Tab.Er.24) 2.5 mg PO DAILY [facility] Last Admin: 01/09/25 08:11 Dose: 2.5 mg Guaifenesin (Guaifenesin La 600 Mg Tab.Er.12h) 1,200 mg PO BID PRN PRN Reason: Cough Last Admin: 12/16/24 14:35 Dose: 1,200 mg Lactated Ringer's (Lr) 1,000 mls @ 50 mls/hr IVCONT .Q20H [facility] Last Admin: 01/08/25 06:45 Dose: 50 mls/hr Insulin Human Lispro (Insulin Lispro 100 Unit/Ml 3 Ml Vial) 0 unit SUBCUT TIDAC [facility]; Protocol Last Admin: 01/09/25 11:57 Dose: 2 unit Lisinopril (Lisinopril 2.5 Mg Tablet) 2.5 mg PO DAILY [facility]; Protocol Last Admin: 01/09/25 08:11 Dose: 2.5 mg Magnesium Hydroxide (Milk Of Magnesia 30 Ml Oral.Susp) 30 ml PO DAILY PRN PRN Reason: Constipation Last Admin: 11/04/24 16:49 Dose: 30 ml Mirtazapine (Mirtazapine 30 Mg Tablet) 30 mg PO BEDTIME [facility] Last Admin: 01/08/25 20:55 Dose: 30 mg Naloxone HCl (Naloxone Hcl 0.4 Mg/Ml Vial) 0.04 mg IVPUSH Q5M PRN PRN Reason: Excessive sedation or RR < 8 Naloxone HCl (Naloxone Hcl 0.4 Mg/Ml Vial) 0.04 mg IVPUSH Q5M PRN PRN Reason: Excessive sedation or RR < 8 Omeprazole (Omeprazole 20 Mg Capsule.Dr) 20 mg PO BID@0630,1630 [facility] Last Admin: 01/09/25 06:22 Dose: 20 mg Ondansetron HCl (Ondansetron Odt 4 Mg Tab.Rapdis) 4 mg TRANSLINGU Q4H PRN PRN Reason: Nausea and Vomiting Last Admin: 01/07/25 20:19 Dose: 4 mg Polyethylene Glycol (Polyethylene Glycol 3350 17 Gm Powd.Pack) 17 gm PO BID [facility] Last Admin: 01/09/25 08:13 Dose: Not Given Pyridoxine HCl (Pyridoxine Hcl (Vitamin B6) 50 Mg Tablet) 50 mg PO DAILY [facility] Last Admin: 01/09/25 08:11 Dose: 50 mg Ropinirole HCl (Ropinirole Hcl 2 Mg Tablet) 2 mg PO DAILY@1700 [facility] Last Admin: 01/08/25 16:46 Dose: 2 mg Ropinirole HCl (Ropinirole Hcl 0.5 Mg Tablet) 0.5 mg PO DAILY [facility] Last Admin: 01/09/25 08:11 Dose: 0.5 mg Simethicone (Simethicone 80 Mg Tab.Chew) 80 mg PO QIDWMHS [facility] Last Admin: 01/09/25 11:57 Dose: 80 mg Trazodone HCl (Trazodone Hcl 50 Mg Tablet) 50 mg PO BEDTIME MRX1 PRN PRN Reason: Insomnia Last Admin: 01/06/25 20:47 Dose: 50 mg Allergies Allergies Allergy/AdvReac Type Severity Reaction Status Date / Time ampicillin Allergy Rash Verified 10/20/24 19:28 morphine Allergy Rash Verified 10/20/24 19:28 Penicillins Allergy Rash Verified 10/20/24 19:28 pork derived (porcine) Allergy Vomiting Verified 11/10/24 17:49 Assessment & Plan Assessment & Plan (1) MDD (major depressive disorder), recurrent episode, moderate: Status: Acute Code(s): F33.1 - Major depressive disorder, recurrent, moderate (2) SHEILA (generalized anxiety disorder): Status: Acute Code(s): F41.1 - Generalized anxiety disorder (3) Forehead laceration: Status: Acute Code(s): S01.81XA - Laceration without foreign body of other part of head, initial encounter Assessment and Plan: Anxiety with suicidal ideation Plan per Psychiatry Undergoing ECT treatments Type 2 diabetes Continue with glipizide and SS Recent A1c 7.2, acceptable range for her age. We will add sliding scale insulin to improve glucose control, to help with symptoms of gastroparesis Avoid hypoglycemia, sugars 200-300 acceptable. Chronic abdominal plain/gastroparesis, chronic mild gastritis, history of diverticulosis Patient is at [facility], she has had Botox injections in the past last in March 2024 Patient had a recent upper endoscopy negative for H pylori or any abnormalities Continues on duloxetine, may help with chronic pain. Continues with omeprazole twice daily Avoid constipation. Avoid opiates and anticholinergics Restless leg syndrome Patient continues on gabapentin and Mirapex twice daily Hypertension/hyperlipidemia Continue atorvastatin, lisinopril, and amlodipine Blood pressure stable Plan Mrs. Barreto is a 78 year-old woman with hx of MDD who was assessed by N at request of her son who called 911 after pt had reported suicidal ideation with plan to OD. In the ED, pt adamantly denied suicidal ideation but reports feeling increasingly more depressed due to involuntary, ongoing movement of lower extremities. She attributes her depressed mood and increase anxious mood to RLS. She has also been treated as tardive akathisia, note that she was previously prescribed abilify. It is noted that she may have iron deficiency due to normocytic anemia which can exacerbate RLS. It is unclear which medications for hyperkinetic movements of the legs are actually helpful and furthermore it is not easily to differentiate whether it is tardive akathisia or RLS. She has been on psychotropic medications that are known to cause akathisia such as abilify. She reports subjective sense of restlessness. Involuntary movement seems to be throughout the day. We will have to do trial of medications that target akathisia such as propanolol and ativan versus medications such as pramipexol for RLS (note that in RLS there is an initial relief with dopamine agonist but can make it worse over time). In addition, will try iron deficiency as it is an underlying cause and exacerbating factor in RLS. PLAN 11/14 continue tx. will monitor before making substantial changes every day. 11/15 continue tx. pt somatically preoccupied. 11/16: Continue current management and treatment plan. 11/17: continue current management and treatment plan. 11/18 start buspar 10mg po TID for SHEILA. continue all other meds. 11/19 increase buspar 20mg po TID 11/20 appears calmer, less somatically preoccupied. continue current medications. 11/21 sodium stable. continues to present as less dysphoric, calmer. reports of dizziness (VS not hotn nor orthostatic), ?vertigo, will try low dose of meclizine otherwise will consult hospitalist for further management. 8.2- pt more focused on gi issues- and anxiety/forgetfulness- continue to monitor somatic complaints- dc qid poc 11/25 will lowered ropinirole as it may increasing anxiety, noted that buspar was lowered, do not think this medication was causing fogginess as pt appeared much calmer since we added buspar. She was started on low dose clonazepam. 11/26 continue tx. received one time dose xanax, but reported feeling overly sedated (although did not appear sedated) 11/27 somatically p8: Continue current regimen and plansreoccupied, no change in medications. 11/29 continue tx. 11/30: Continue current regimen and plans 12/01: Continue current plans and regimen 12/02 increase buspar 20mg po TID. 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 start wellbutrin XL 150 daily tomorrow for depression. also c/o anxiety-provoking and nocturnally loud peer. schedule klonopin 0.25 QHS for insomnia. otherwise continue current mgmt. awaiting placement. 12/04: slept well last night, started wellbutrin this morning without incident. continue current mgmt. will be discharging to [facility]. 12/05: slept well. c/o anxiety at 3-330 in the afternoon. pt to ask for klonopin PRN at 2-230. trend anxiety, T/C DC of wellbutrin if anxiety seems reliably increased since starting it. dispo next week likely. 12/06: anxious. schedule klonopin 0.25 mg Qdaily at 1430 per pt request. otherwise continue current mgmt. 12/07: anxious and depressed. c/o insomnia. will give wellbutrin a few more days to see if insomnia subsides and mood improves. per staf, stable and uneventful presentation. 12/08: depressed. agreeable to increase wellbutrin to 300 mg as of tomorrow. otherwise continue current mgmt. sleeping well. 12/09: started wellbutrin 300 today. c/o URI Sx, start guaifenesin. otherwise continue current mgmt. 12/10: coughin much eves/NOC per staff. pt c/o not happy, cough, and poor sleep. continue mucinex and mental health Tx plan otherwise. 12/11/24: Patient appeared to slept for 8 hours, was medication compliant but refused the MiraLax. Denies side effects. She is observed watching TV in common area. Reported that she feel anxious and depressed. She is worry about when she is leaving as she is going to stay by herself. I am depressed . Self reports that she did not sleep well last night as roommate waking her up at night telling her that she saw dogs. She reports normal stomach pain. She would hope to see the GI doctor after discharge. She reported that she will be discharged on 12/17 but not sure the name of the facility or where it is located. Denies safety concerns, denies hallucinations. No coughing observed this morning. 12/12: c/o unremitting depression, saying she does not want to live like this. interested in ECT, educated re the procedure. obtain risk strat and EKG, discuss in rounds tomorrow morning. otherwise continue current mgmt. 12/13: continues to push for ECT. seen by hospitalist, no relative contraindications to the procedure. case d/w patient's daughter chantelle as well, who avers that pt has been in this state for a long time, it's only getting worse, and medications have not been helpful. johanna supports this trial on the wishes of her mother and MD's recommendation. ECT ordered, will get pt on the schedule as soon as possible. 12/14: Cough-productive, O2 sats are lower , CXR positive. Seen by hospitalist. Antibiotics initiated, R/O pneumonia 12/15: Pt unable to tolerate doxycycline. Hospitalist will change to Ceftin. 12/16: ECT held today due to januvia and respiratory virus. mood slightly improved. plan for weds ECT. 12/17: COVID and flu NEG. c/o nausea, exacerbation of chronic condition, h/o gastroparesis. holding januvia. start reglan for gastroparesis. continue current mgmt otherwise. NPO past MN for ECT tomorrow. 12/18: awaiting med clearance for ECT. planning for ECT monday. otherwise continue current mgmt. glucose noted to be elevated since holding januvia the past several days. 12/19 continue current medications. pt hopefull will have ECT tomorrow. NPO from midnight. 12/20 continue tx. Had ECT #1 no complications noted or reported. 12/21:Continue ECT. 12/22: Increase Klonopin PRN to BID. Otherwise continue current management and treatment plan. 12/23: continue current management and treatment plan. 12/24 continue tx. ECT tomorrow, NPO after midnight. 12/25 continue tx. 12/26: ECT #3 completed today. pleasant, feeling improved. Sz duration longer than prior but remains suboptimal. will DC gabapentin and decrease PRN klonopin to 0.125 mg per dose. next ECT monday. continue current mgmt otherwise. 12/28 Patient says she is all right and no complaints other than restless leg/akathisia which she says is bothering her. Discussed ECT and patient says she wants to continue getting ECT which she thinks is helpful and is why she wants to remain inpatient. 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 Review of chart and patient was started on metoclopramide for diabetic gastroparesis. Discussed with patient who agrees to lowering metoclopramide; will increase propranolol and DC p.r.n. ropinirole -lower metoclopramide to 3 mg t.i.d. a.c.; (no N/V or constipation) -increase to propranolol 10 mg t.i.d. p.r.n. for restless leg -DC extra p.r.n. ropinirole 12/30: c/o restless legs. notes reviewed on the subject, plan noted. had ECT today, believes she is only having one more. anxiety Sx appear worse than prior, difficult to assess mood under the circumstances. continue current mgmt for now. 12/31: reglan DCed but still c/o RLS. requip Rx noted. ECT tomorrow. i don't feel down. NPO past MN, otherwise continue current mgmt. 01/01: stable, depression/anxiety lessened. awaiting ECT today. c/o RLS, plan to restart gabapentin after ECT course is finished. continue current mgmt otherwise. 01/02: appears more affectively flexible. reports mood OK. no somatic complaints or requests of MD. would like tomorrow's ECT, #6, to be her final of the series. continue current mgmt for now. NPO past MN. 01/03/2025 ECT held on . Consider restart if needed patient does appear open to this. Continue Wellbutrin and Cymbalta 01/04: continue, will explore whether or not to do additional ECT on Friday 01/05: will make NPO after midnight, patient aware - primary team may decide not to proceed with ECT tomorrow 01/06/2025 Low Wellbutrin to 150 mg secondary to anxiety and decreased appetite. restart ECT patient agreeable for better control and durability of symptoms 01/07: DC pramipexole in the morning, substitute with ropinirole, which pt also taking in substantial amount eves. 2 more ECTs, then planning to discharge 01/14. T/C maintenance ECT. decrease in wellbutrin noted, pt c/o poor appetite. 01/08: ECT today. feeling more disoriented after, return to electrode placement right temporal and left frontal. planning for weekly ECT fridays for the next 5 weeks as of tomorrow. DC wellbutrin for anorexia. case discussed with pt's daughter johanna. continue current mgmt otherwise. 01/09: mood remains improved, clearer-headed today. ready for ECT tomorrow. no complaints or requests. Reason for continued inpatient stay Substantial Risk for: rapid decompensation Time Spent With Patient Time: Total time managing care of this patient today __25__ minutes.
[2025-01-09 16:19] LABS: Glucose, Whole Blood 161 mg/dL (60-115)
[2025-01-09 20:00] VITALS: BP 132/71; PULSE 82; RESP 20; TEMP 36; O2SAT 96
[2025-01-09 20:00] LABS: Glucose, Whole Blood 232 mg/dL (60-115)
[2025-01-10] VITALS (11 sets, daily range): BP systolic 129–182; BP diastolic 68–94; PULSE 73–101; RESP 18–20; TEMP 36.1–36.6; O2SAT 98–100
[2025-01-10 06:31] LABS: Glucose, Whole Blood 207 mg/dL (60-115)
--- NOTE | 2025-01-10 08:46 | P.CONAN_ITS ---
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 (Acute) Hyponatremia (Acute) Fall (Acute) Constipation (Acute) Forehead laceration (Acute) Diabetes (Acute) RLS (restless legs syndrome) (Acute) MDD (major depressive disorder), recurrent episode, moderate (Acute) Gastroparesis (Acute) Anxiety (Acute) Past Medical History Medical History Tension headache Peripheral neuropathy Akathisia Cerebral microvascular disease RLS (restless legs syndrome) Migraines Diabetes Hypertension Anxiety Functional capacity: independent ambulation Family History Family history of problems with anesthesia: No Surgical History History of Problems with Anesthesia: No Social History Social History Household Members: None Housing: House Do you presently have visiting nurse or other home services: Yes Patient Tobacco Use Status: Never used Tobacco service: No Sexual orientation: Straight/Heterosexual Meds Allergies Allergy/AdvReac Type Severity Reaction Status Date / Time ampicillin Allergy Rash Verified 10/20/24 19:28 morphine Allergy Rash Verified 10/20/24 19:28 Penicillins Allergy Rash Verified 10/20/24 19:28 pork derived (porcine) Allergy Vomiting Verified 11/10/24 17:49 Active Medications: Current Medications Acetaminophen (Acetaminophen 325 Mg Tablet) 650 mg PO Q6H PRN PRN Reason: Headache/Pain, Scale 1-10 Last Admin: 01/07/25 20:19 Dose: 650 mg Al Hydroxide/Mg Hydroxide (Magnesium Hydrox/Alum Hydrox 30 Ml Oral.Susp) 30 ml PO Q6H PRN PRN Reason: Heartburn/Nausea Last Admin: 01/08/25 11:43 Dose: 30 ml Albuterol Sulfate (Albuterol Sulfate (0.083%) 2.5 Mg/3 Ml Vial.Neb) 2.5 mg INHALE ONCE PRN PRN Reason: Shortness of Breath/Wheezing Last Admin: 12/16/24 07:11 Dose: 2.5 mg Albuterol Sulfate (Albuterol Sulfate 90 Mcg 8 Gm Inhaler) 4 puff INHALE Q4H PRN PRN Reason: Shortness Of Breath Or Wheezin Amlodipine Besylate (Amlodipine Besylate 2.5 Mg Tablet) 2.5 mg PO DAILY [facility]; Protocol Last Admin: 01/09/25 08:11 Dose: 2.5 mg Atorvastatin Calcium (Atorvastatin Calcium 20 Mg Tablet) 20 mg PO DAILY [facility] Last Admin: 01/09/25 08:11 Dose: 20 mg Bisacodyl (Bisacodyl 10 Mg Supp.Rect) 10 mg MI BEDTIME PRN PRN Reason: Constipation Last Admin: 11/04/24 20:37 Dose: 10 mg Bupropion HCl (Bupropion Hcl Xl 150 Mg Tab.Er.24h) 150 mg PO DAILY [facility] Last Admin: 01/09/25 08:11 Dose: 150 mg Buspirone HCl (Buspirone Hcl 10 Mg Tablet) 20 mg PO TID [facility] Last Admin: 01/09/25 21:05 Dose: 20 mg Calcium Carbonate (Calcium Carbonate 750 Mg Tab.Chew) 750 mg PO Q4H PRN PRN Reason: Heartburn Last Admin: 11/30/24 21:34 Dose: 750 mg Clonazepam (Clonazepam Odt 0.125 Mg Tab.Rapdis) 0.125 mg PO BID PRN On Hold: 01/09/25 14:25 PRN Reason: severe anxiety Last Admin: 01/01/25 10:00 Dose: 0.125 mg Dicyclomine HCl (Dicyclomine Hcl 10 Mg Capsule) 10 mg PO Q4H PRN PRN Reason: abdominal cramping Last Admin: 12/17/24 13:55 Dose: 10 mg Docusate Sodium (Docusate Sodium 100 Mg Capsule) 100 mg PO BID [facility] Last Admin: 01/09/25 21:05 Dose: 100 mg Duloxetine HCl (Duloxetine Hcl 60 Mg Capsule.Dr) 60 mg PO DAILY [facility] Last Admin: 01/09/25 08:12 Dose: 60 mg Fluticasone/Vilanterol (Fluticasone/Vilanterol 100/25 Blst.W.Dev) 1 puff INHALE RDAILY [facility] Last Admin: 01/09/25 08:08 Dose: 1 puff Glipizide (Glipizide Xl 2.5 Mg Tab.Er.24) 2.5 mg PO DAILY [facility] Last Admin: 01/09/25 08:11 Dose: 2.5 mg Guaifenesin (Guaifenesin La 600 Mg Tab.Er.12h) 1,200 mg PO BID PRN PRN Reason: Cough Last Admin: 12/16/24 14:35 Dose: 1,200 mg Lactated Ringer's (Lr) 1,000 mls @ 50 mls/hr IVCONT .Q20H [facility] Insulin Human Lispro (Insulin Lispro 100 Unit/Ml 3 Ml Vial) 0 unit SUBCUT TIDAC [facility]; Protocol Last Admin: 01/09/25 17:13 Dose: 2 unit Lisinopril (Lisinopril 2.5 Mg Tablet) 2.5 mg PO DAILY [facility]; Protocol Last Admin: 01/09/25 08:11 Dose: 2.5 mg Magnesium Hydroxide (Milk Of Magnesia 30 Ml Oral.Susp) 30 ml PO DAILY PRN PRN Reason: Constipation Last Admin: 11/04/24 16:49 Dose: 30 ml Mirtazapine (Mirtazapine 30 Mg Tablet) 30 mg PO BEDTIME [facility] Last Admin: 01/09/25 21:05 Dose: 30 mg Naloxone HCl (Naloxone Hcl 0.4 Mg/Ml Vial) 0.04 mg IVPUSH Q5M PRN PRN Reason: Excessive sedation or RR < 8 Naloxone HCl (Naloxone Hcl 0.4 Mg/Ml Vial) 0.04 mg IVPUSH Q5M PRN PRN Reason: Excessive sedation or RR < 8 Naloxone HCl (Naloxone Hcl 0.4 Mg/Ml Vial) 0.04 mg IVPUSH Q5M PRN PRN Reason: Excessive sedation or RR < 8 Omeprazole (Omeprazole 20 Mg Capsule.Dr) 20 mg PO BID@0630,1630 [facility] Last Admin: 01/09/25 17:13 Dose: 20 mg Ondansetron HCl (Ondansetron Odt 4 Mg Tab.Rapdis) 4 mg TRANSLINGU Q4H PRN PRN Reason: Nausea and Vomiting Last Admin: 01/07/25 20:19 Dose: 4 mg Polyethylene Glycol (Polyethylene Glycol 3350 17 Gm Powd.Pack) 17 gm PO BID [facility] Last Admin: 01/09/25 21:06 Dose: Not Given Pyridoxine HCl (Pyridoxine Hcl (Vitamin B6) 50 Mg Tablet) 50 mg PO DAILY [facility] Last Admin: 01/09/25 08:11 Dose: 50 mg Ropinirole HCl (Ropinirole Hcl 2 Mg Tablet) 2 mg PO DAILY@1700 [facility] Last Admin: 01/09/25 17:13 Dose: 2 mg Ropinirole HCl (Ropinirole Hcl 0.5 Mg Tablet) 0.5 mg PO DAILY [facility] Last Admin: 01/09/25 08:11 Dose: 0.5 mg Simethicone (Simethicone 80 Mg Tab.Chew) 80 mg PO QIDWMHS [facility] Last Admin: 01/09/25 21:05 Dose: 80 mg Trazodone HCl (Trazodone Hcl 50 Mg Tablet) 50 mg PO BEDTIME MRX1 PRN PRN Reason: Insomnia Last Admin: 01/06/25 20:47 Dose: 50 mg Home Medications ?Medication ?Instructions ?Recorded ?Confirmed ?Last Taken ?Type atorvastatin 20 mg tablet 20 mg PO DAILY 04/01/2309/2403/31/23 21:00 History ondansetron HCl 4 mg tablet 4 mg PO Q8H PRN nausea 01/1410/21/24 03/31/23 21:00 History pantoprazole 40 mg tablet,delayed 40 mg PO BID@0630,16 30 04/01/23 10/21/24 03/31/23 21:00 History release sitagliptin phosphate 100 mg 100 mg PO DAILY 04/01/23 10/21/24 03/31/23 21:00 History tablet (Januvia) albuterol sulfate 90 mcg/actuation 2 puff inhalation Q 4-6H PRN 10/21/24 10/21/24 Unknown History aerosol inhaler Shortness Of Breath Or Wheez ing amlodipine 2.5 mg tablet 2.5 mg PO DAILY 10/21/24 Unknown History duloxetine 20 mg capsule,delayed 40 mg PO DAILY 10/21/24 Unknown History release fluticasone furoate 100 1 ea inhalation DAILY 10/21/24 Unknown History mcg-vilanterol 25 mcg/dose inhalation powder (Breo Ellipta) gabapentin 100 mg capsule 100 mg PO TID 10/21/2410/21 Unknown History gabapentin 600 mg tablet 600 mg PO BEDTIME 10/21/24 0 10/21/24 Unknown History glipizide 2.5 mg tablet, extended 2.5 mg PO DAILY 09/2410/21/24 Unknown History release 24 hr lamotrigine 100 mg tablet 100 mg PO DAILY 10/21/24 Unknown History lisinopril 20 mg tablet 20 mg PO DAILY 10/21/2409/24 Unknown History lorazepam 0.5 mg tablet 0.25 mg PO BID 10/21/2409/24 Unknown History mirtazapine 45 mg tablet 45 mg PO BEDTIME 10/21/24 Unknown History olanzapine 2.5 mg tablet 2.5 mg PO BEDTIME 10/21/24 0 10/21/24 Unknown History pramipexole 0.25 mg tablet 0.25 mg PO BID 10/21/24 Unknown History propranolol 20 mg tablet 20 mg PO DAILY 10/21/2409/24 Unknown History Exam Height,Weight and Vital Signs: Height 4 ft 10 in Weight 48.988 kg Last Vital Signs Temp 97.4 F 01/10/25 07:54 Pulse 89 01/10/25 07:54 Resp 20 01/10/25 07:54 BP 134/74 01/10/25 07:54 Pulse Ox 98 01/10/25 07:54 O2 Del Method Room Air 01/10/25 07:54 O2 Flow Rate 2 01/08/25 08:00 Pertinent Lab Results Pertinent Lab Results: Laboratory Tests 10/20/24 10/20/24 10/22/24 19:59 21:45 07:23 WBC 7.6 RBC 3.65 L Hgb 10.8 L Hct 31.3 L MCV 85.8 MCH 29.6 MCHC 34.5 RDW 13.6 Plt Count 213 MPV 8.7 L Immature Gran % (Auto) 0.3 Neut % (Auto) 58.4 Lymph % (Auto) 29.8 Mcdonald % (Auto) 9.9 Eos % (Auto) 1.1 Baso % (Auto) 0.5 Lymph # (Auto) 2.3 Mcdonald # (Auto) 0.8 Eos # (Auto) 0.1 Baso # (Auto) 0.0 Abs Immat Gran (auto) 0.02 Absolute Neuts (auto) 4.4 Absolute Nucleated RBC 0.000 Nucleated RBC % (auto) 0.0 Smear Tech's Comments Hold Purple Top VBG pH VBG pCO2 VBG pO2 VBG HCO3 VBG O2 Saturation VBG Base Excess Sodium 140 142 Potassium 4.2 4.6 Chloride 108 108 Carbon Dioxide 23 23 Anion Gap 13 16 BUN 33 H 22 H Creatinine 1.15 1.09 Estim Creat Clear Calc 26.9 30.7 Estimated GFR 46 49 POC Glucose Random Glucose 96 204 H Estimat Average Glucose 160 Hemoglobin A1c % 7.2 H Osmolality Lactic Acid Calcium 9.3 9.6 Magnesium Iron TIBC % Saturation Unsat Iron Binding Total Bilirubin 0.5 AST 21 ALT 25 Alkaline Phosphatase 67 Total Protein 7.4 Albumin 4.9 Triglycerides 102 Cholesterol 148 LDL Cholesterol, Calc 68 HDL Cholesterol 60 Lipase TSH 2.14 Free T4 1.15 Urine Color Yellow Urine Appearance Clear Urine pH 7.0 Ur Specific Butler 1.010 Urine Protein Negative Urine Glucose (UA) Negative Urine Ketones Negative Urine Blood Negative Urine Nitrite Negative Ur Leukocyte Esterase Large (3+) H Urine RBC 0-2 Urine WBC 21-50 H Ur Squamous Epith Cells 0-2 Urine Bacteria Trace Hyaline Casts 0-2 Urine Osmolality Ur Random Sodium Urine Opiates Screen POSITIVE H Ur Buprenorphine Scrn Not Detected Ur Oxycodone Screen Not Detected Urine Methadone Screen Not Detected Urine Fentanyl Screen Not Detected Ur Barbiturates Screen Not Detected Carbamazepine Ur Phencyclidine Scrn Not Detected Ur Amphetamines Screen Not Detected U Benzodiazepines Scrn Not Detected Urine Cocaine Screen Not Detected U Marijuana (THC) Screen Not Detected COVID-19 ([facility]) COVID-19 Clin Com Influenza Type A (AMANDA) Influenza Type B (AMANDA) Influenza A & B Note TB Test (T-Spot) Com TB Test Nil Control TB Test Panel A TB Test Panel B TB Test Positive [facility] 10/23/24 10/23/24 10/23/24 15:19 15:20 16:31 WBC 6.4 RBC 4.03 L Hgb 11.8 L Hct 34.7 L MCV 86.1 MCH 29.3 MCHC 34.0 RDW 13.6 Plt Count 221 MPV 9.8 Immature Gran % (Auto) 0.3 Neut % (Auto) 64.6 Lymph % (Auto) 23.0 Mcdonald % (Auto) 10.4 Eos % (Auto) 1.2 Baso % (Auto) 0.5 Lymph # (Auto) 1.5 Mcdonald # (Auto) 0.7 Eos # (Auto) 0.1 Baso # (Auto) 0.0 Abs Immat Gran (auto) 0.02 Absolute Neuts (auto) 4.2 Absolute Nucleated RBC 0.000 Nucleated RBC % (auto) 0.0 Smear Tech's Comments VERIFIED Hold Purple Top VBG pH VBG pCO2 VBG pO2 VBG HCO3 VBG O2 Saturation VBG Base Excess Sodium 137 Potassium 4.5 Chloride 104 Carbon Dioxide 24 Anion Gap 14 BUN 26 H Creatinine 1.02 Estim Creat Clear Calc 32.8 Estimated GFR 53 POC Glucose 132 H Random Glucose 158 H Estimat Average Glucose Hemoglobin A1c % Osmolality Lactic Acid Calcium 9.3 Magnesium Iron TIBC % Saturation Unsat Iron Binding Total Bilirubin AST ALT Alkaline Phosphatase Total Protein Albumin Triglycerides Cholesterol LDL Cholesterol, Calc HDL Cholesterol Lipase TSH Free T4 Urine Color Urine Appearance Urine pH Ur Specific Butler Urine Protein Urine Glucose (UA) Urine Ketones Urine Blood Urine Nitrite Ur Leukocyte Esterase Urine RBC Urine WBC Ur Squamous Epith Cells Urine Bacteria Hyaline Casts Urine Osmolality Ur Random Sodium Urine Opiates Screen Ur Buprenorphine Scrn Ur Oxycodone Screen Urine Methadone Screen Urine Fentanyl Screen Ur Barbiturates Screen Carbamazepine Ur Phencyclidine Scrn Ur Amphetamines Screen U Benzodiazepines Scrn Urine Cocaine Screen U Marijuana (THC) Screen COVID-19 ([facility]) COVID-19 Clin Com Influenza Type A (AMANDA) Influenza Type B (AMANDA) Influenza A & B Note TB Test (T-Spot) Com TB Test Nil Control TB Test Panel A TB Test Panel B TB Test Positive Cntrl 10/24/24 10/24/24 10/24/24 06:51 11:08 12:19 WBC RBC Hgb Hct MCV MCH MCHC RDW Plt Count MPV Immature Gran % (Auto) Neut % (Auto) Lymph % (Auto) Mcdonald % (Auto) Eos % (Auto) Baso % (Auto) Lymph # (Auto) Mcdonald # (Auto) Eos # (Auto) Baso # (Auto) Abs Immat Gran (auto) Absolute Neuts (auto) Absolute Nucleated RBC Nucleated RBC % (auto) Smear Tech's Comments Hold Purple Top VBG pH VBG pCO2 VBG pO2 VBG HCO3 VBG O2 Saturation VBG Base Excess Sodium Potassium Chloride Carbon Dioxide Anion Gap BUN Creatinine Estim Creat Clear Calc Estimated GFR POC Glucose 204 H 95 Random Glucose Estimat Average Glucose Hemoglobin A1c % Osmolality Lactic Acid Calcium Magnesium Iron 65 TIBC 216 L % Saturation 30 Unsat Iron Binding 151 Total Bilirubin AST ALT Alkaline Phosphatase Total Protein Albumin Triglycerides Cholesterol LDL Cholesterol, Calc HDL Cholesterol Lipase TSH Free T4 Urine Color Urine Appearance Urine pH Ur Specific Butler Urine Protein Urine Glucose (UA) Urine Ketones Urine Blood Urine Nitrite Ur Leukocyte Esterase Urine RBC Urine WBC Ur Squamous Epith Cells Urine Bacteria Hyaline Casts Urine Osmolality Ur Random Sodium Urine Opiates Screen Ur Buprenorphine Scrn Ur Oxycodone Screen Urine Methadone Screen Urine Fentanyl Screen Ur Barbiturates Screen Carbamazepine Ur Phencyclidine Scrn Ur Amphetamines Screen U Benzodiazepines Scrn Urine Cocaine Screen U Marijuana (THC) Screen COVID-19 ([facility]) COVID-19 Clin Com Influenza Type A (AMANDA) Influenza Type B (AMANDA) Influenza A & B Note TB Test (T-Spot) Com TB Test Nil Control TB Test Panel A TB Test Panel B TB Test Positive Cntrl 10/24/24 10/25/24 10/25/24 16:06 05:55 11:15 WBC RBC Hgb Hct MCV MCH MCHC RDW Plt Count MPV Immature Gran % (Auto) Neut % (Auto) Lymph % (Auto) Mcdonald % (Auto) Eos % (Auto) Baso % (Auto) Lymph # (Auto) Mcdonald # (Auto) Eos # (Auto) Baso # (Auto) Abs Immat Gran (auto) Absolute Neuts (auto) Absolute Nucleated RBC Nucleated RBC % (auto) Smear Tech's Comments Hold Purple Top VBG pH VBG pCO2 VBG pO2 VBG HCO3 VBG O2 Saturation VBG Base Excess Sodium Potassium Chloride Carbon Dioxide Anion Gap BUN Creatinine Estim Creat Clear Calc Estimated GFR POC Glucose 142 H 190 H 177 H Random Glucose Estimat Average Glucose Hemoglobin A1c % Osmolality Lactic Acid Calcium Magnesium Iron TIBC % Saturation Unsat Iron Binding Total Bilirubin AST ALT Alkaline Phosphatase Total Protein Albumin Triglycerides Cholesterol LDL Cholesterol, Calc HDL Cholesterol Lipase TSH Free T4 Urine Color Urine Appearance Urine pH Ur Specific Butler Urine Protein Urine Glucose (UA) Urine Ketones Urine Blood Urine Nitrite Ur Leukocyte Esterase Urine RBC Urine WBC Ur Squamous Epith Cells Urine Bacteria Hyaline Casts Urine Osmolality Ur Random Sodium Urine Opiates Screen Ur Buprenorphine Scrn Ur Oxycodone Screen Urine Methadone Screen Urine Fentanyl Screen Ur Barbiturates Screen Carbamazepine Ur Phencyclidine Scrn Ur Amphetamines Screen U Benzodiazepines Scrn Urine Cocaine Screen U Marijuana (THC) Screen COVID-19 ([facility]) COVID-19 Clin Com Influenza Type A (AMANDA) Influenza Type B (AMANDA) Influenza A & B Note TB Test (T-Spot) Com TB Test Nil Control TB Test Panel A TB Test Panel B TB Test Positive [facility] 10/25/24 10/26/24 10/26/24 16:33 07:05 10:57 WBC RBC Hgb Hct MCV MCH MCHC RDW Plt Count MPV Immature Gran % (Auto) Neut % (Auto) Lymph % (Auto) Mcdonald % (Auto) Eos % (Auto) Baso % (Auto) Lymph # (Auto) Mcdonald # (Auto) Eos # (Auto) Baso # (Auto) Abs Immat Gran (auto) Absolute Neuts (auto) Absolute Nucleated RBC Nucleated RBC % (auto) Smear Tech's Comments Hold Purple Top VBG pH VBG pCO2 VBG pO2 VBG HCO3 VBG O2 Saturation VBG Base Excess Sodium Potassium Chloride Carbon Dioxide Anion Gap BUN Creatinine Estim Creat Clear Calc Estimated GFR POC Glucose 170 H 185 H 189 H Random Glucose Estimat Average Glucose Hemoglobin A1c % Osmolality Lactic Acid Calcium Magnesium Iron TIBC % Saturation Unsat Iron Binding Total Bilirubin AST ALT Alkaline Phosphatase Total Protein Albumin Triglycerides Cholesterol LDL Cholesterol, Calc HDL Cholesterol Lipase TSH Free T4 Urine Color Urine Appearance Urine pH Ur Specific Butler Urine Protein Urine Glucose (UA) Urine Ketones Urine Blood Urine Nitrite Ur Leukocyte Esterase Urine RBC Urine WBC Ur Squamous Epith Cells Urine Bacteria Hyaline Casts Urine Osmolality Ur Random Sodium Urine Opiates Screen Ur Buprenorphine Scrn Ur Oxycodone Screen Urine Methadone Screen Urine Fentanyl Screen Ur Barbiturates Screen Carbamazepine Ur Phencyclidine Scrn Ur Amphetamines Screen U Benzodiazepines Scrn Urine Cocaine Screen U Marijuana (THC) Screen COVID-19 ([facility]) COVID-19 Clin Com Influenza Type A (AMANDA) Influenza Type B (AMANDA) Influenza A & B Note TB Test (T-Spot) Com TB Test Nil Control TB Test Panel A TB Test Panel B TB Test Positive [facility] 10/26/24 10/27/24 10/27/24 16:19 06:45 11:24 WBC RBC Hgb Hct MCV MCH MCHC RDW Plt Count MPV Immature Gran % (Auto) Neut % (Auto) Lymph % (Auto) Mcdonald % (Auto) Eos % (Auto) Baso % (Auto) Lymph # (Auto) Mcdonald # (Auto) Eos # (Auto) Baso # (Auto) Abs Immat Gran (auto) Absolute Neuts (auto) Absolute Nucleated RBC Nucleated RBC % (auto) Smear Tech's Comments Hold Purple Top VBG pH VBG pCO2 VBG pO2 VBG HCO3 VBG O2 Saturation VBG Base Excess Sodium Potassium Chloride Carbon Dioxide Anion Gap BUN Creatinine Estim Creat Clear Calc Estimated GFR POC Glucose 170 H 215 H 117 H Random Glucose Estimat Average Glucose Hemoglobin A1c % Osmolality Lactic Acid Calcium Magnesium Iron TIBC % Saturation Unsat Iron Binding Total Bilirubin AST ALT Alkaline Phosphatase Total Protein Albumin Triglycerides Cholesterol LDL Cholesterol, Calc HDL Cholesterol Lipase TSH Free T4 Urine Color Urine Appearance Urine pH Ur Specific Butler Urine Protein Urine Glucose (UA) Urine Ketones Urine Blood Urine Nitrite Ur Leukocyte Esterase Urine RBC Urine WBC Ur Squamous Epith Cells Urine Bacteria Hyaline Casts Urine Osmolality Ur Random Sodium Urine Opiates Screen Ur Buprenorphine Scrn Ur Oxycodone Screen Urine Methadone Screen Urine Fentanyl Screen Ur Barbiturates Screen Carbamazepine Ur Phencyclidine Scrn Ur Amphetamines Screen U Benzodiazepines Scrn Urine Cocaine Screen U Marijuana (THC) Screen COVID-19 ([facility]) COVID-19 Clin Com Influenza Type A (AMANDA) Influenza Type B (AMANDA) Influenza A & B Note TB Test (T-Spot) Com TB Test Nil Control TB Test Panel A TB Test Panel B TB Test Positive Cntrl 10/27/24 10/28/24 10/28/24 16:14 06:32 10:50 WBC RBC Hgb Hct MCV MCH MCHC RDW Plt Count MPV Immature Gran % (Auto) Neut % (Auto) Lymph % (Auto) Mcdonald % (Auto) Eos % (Auto) Baso % (Auto) Lymph # (Auto) Mcdonald # (Auto) Eos # (Auto) Baso # (Auto) Abs Immat Gran (auto) Absolute Neuts (auto) Absolute Nucleated RBC Nucleated RBC % (auto) Smear Tech's Comments Hold Purple Top VBG pH VBG pCO2 VBG pO2 VBG HCO3 VBG O2 Saturation VBG Base Excess Sodium Potassium Chloride Carbon Dioxide Anion Gap BUN Creatinine Estim Creat Clear Calc Estimated GFR POC Glucose 156 H 195 H 288 H Random Glucose Estimat Average Glucose Hemoglobin A1c % Osmolality Lactic Acid Calcium Magnesium Iron TIBC % Saturation Unsat Iron Binding Total Bilirubin AST ALT Alkaline Phosphatase Total Protein Albumin Triglycerides Cholesterol LDL Cholesterol, Calc HDL Cholesterol Lipase TSH Free T4 Urine Color Urine Appearance Urine pH Ur Specific Butler Urine Protein Urine Glucose (UA) Urine Ketones Urine Blood Urine Nitrite Ur Leukocyte Esterase Urine RBC Urine WBC Ur Squamous Epith Cells Urine Bacteria Hyaline Casts Urine Osmolality Ur Random Sodium Urine Opiates Screen Ur Buprenorphine Scrn Ur Oxycodone Screen Urine Methadone Screen Urine Fentanyl Screen Ur Barbiturates Screen Carbamazepine Ur Phencyclidine Scrn Ur Amphetamines Screen U Benzodiazepines Scrn Urine Cocaine Screen U Marijuana (THC) Screen COVID-19 ([facility]) COVID-19 Clin Com Influenza Type A (AMANDA) Influenza Type B (AMANDA) Influenza A & B Note TB Test (T-Spot) Com TB Test Nil Control TB Test Panel A TB Test Panel B TB Test Positive [facility] 10/28/24 10/28/24 10/29/24 15:54 20:28 06:47 WBC RBC Hgb Hct MCV MCH MCHC RDW Plt Count MPV Immature Gran % (Auto) Neut % (Auto) Lymph % (Auto) Mcdonald % (Auto) Eos % (Auto) Baso % (Auto) Lymph # (Auto) Mcdonald # (Auto) Eos # (Auto) Baso # (Auto) Abs Immat Gran (auto) Absolute Neuts (auto) Absolute Nucleated RBC Nucleated RBC % (auto) Smear Tech's Comments Hold Purple Top VBG pH VBG pCO2 VBG pO2 VBG HCO3 VBG O2 Saturation VBG Base Excess Sodium Potassium Chloride Carbon Dioxide Anion Gap BUN Creatinine Estim Creat Clear Calc Estimated GFR POC Glucose 132 H 210 H 188 H Random Glucose Estimat Average Glucose Hemoglobin A1c % Osmolality Lactic Acid Calcium Magnesium Iron TIBC % Saturation Unsat Iron Binding Total Bilirubin AST ALT Alkaline Phosphatase Total Protein Albumin Triglycerides Cholesterol LDL Cholesterol, Calc HDL Cholesterol Lipase TSH Free T4 Urine Color Urine Appearance Urine pH Ur Specific Butler Urine Protein Urine Glucose (UA) Urine Ketones Urine Blood Urine Nitrite Ur Leukocyte Esterase Urine RBC Urine WBC Ur Squamous Epith Cells Urine Bacteria Hyaline Casts Urine Osmolality Ur Random Sodium Urine Opiates Screen Ur Buprenorphine Scrn Ur Oxycodone Screen Urine Methadone Screen Urine Fentanyl Screen Ur Barbiturates Screen Carbamazepine Ur Phencyclidine Scrn Ur Amphetamines Screen U Benzodiazepines Scrn Urine Cocaine Screen U Marijuana (THC) Screen COVID-19 ([facility]) COVID-19 Clin Com Influenza Type A (AMANDA) Influenza Type B (AMANDA) Influenza A & B Note TB Test (T-Spot) Com TB Test Nil Control TB Test Panel A TB Test Panel B TB Test Positive [facility] 10/29/24 10/29/24 10/29/24 11:16 15:42 16:24 WBC 11.0 H RBC 3.49 L Hgb 10.4 L Hct 29.9 L MCV 85.7 MCH 29.8 MCHC 34.8 RDW 13.7 Plt Count 271 MPV 8.8 L Immature Gran % (Auto) 0.5 H Neut % (Auto) 71.9 Lymph % (Auto) 14.5 L Mcdonald % (Auto) 11.9 H Eos % (Auto) 0.7 Baso % (Auto) 0.5 Lymph # (Auto) 1.6 Mcdonald # (Auto) 1.3 H Eos # (Auto) 0.1 Baso # (Auto) 0.1 Abs Immat Gran (auto) 0.05 H Absolute Neuts (auto) 7.9 Absolute Nucleated RBC 0.000 Nucleated RBC % (auto) 0.0 Smear Tech's Comments Hold Purple Top VBG pH VBG pCO2 VBG pO2 VBG HCO3 VBG O2 Saturation VBG Base Excess Sodium 133 L Potassium 4.7 Chloride 102 Carbon Dioxide 24 Anion Gap 12 BUN 39 H Creatinine 1.24 Estim Creat Clear Calc 27.3 Estimated GFR 42 POC Glucose 265 H 156 H Random Glucose 180 H Estimat Average Glucose Hemoglobin A1c % Osmolality Lactic Acid Calcium 8.9 Magnesium Iron TIBC % Saturation Unsat Iron Binding Total Bilirubin 0.4 AST 15 ALT 21 Alkaline Phosphatase 67 Total Protein 6.4 L Albumin 4.1 Triglycerides Cholesterol LDL Cholesterol, Calc HDL Cholesterol Lipase TSH Free T4 Urine Color Urine Appearance Urine pH Ur Specific Butler Urine Protein Urine Glucose (UA) Urine Ketones Urine Blood Urine Nitrite Ur Leukocyte Esterase Urine RBC Urine WBC Ur Squamous Epith Cells Urine Bacteria Hyaline Casts Urine Osmolality Ur Random Sodium Urine Opiates Screen Ur Buprenorphine Scrn Ur Oxycodone Screen Urine Methadone Screen Urine Fentanyl Screen Ur Barbiturates Screen Carbamazepine Ur Phencyclidine Scrn Ur Amphetamines Screen U Benzodiazepines Scrn Urine Cocaine Screen U Marijuana (THC) Screen COVID-19 ([facility]) COVID-19 Clin Com Influenza Type A (AMANDA) Influenza Type B (AMANDA) Influenza A & B Note TB Test (T-Spot) Com TB Test Nil Control TB Test Panel A TB Test Panel B TB Test Positive Cntrl 10/30/24 10/30/24 10/30/24 06:46 11:13 16:09 WBC RBC Hgb Hct MCV MCH MCHC RDW Plt Count MPV Immature Gran % (Auto) Neut % (Auto) Lymph % (Auto) Mcdonald % (Auto) Eos % (Auto) Baso % (Auto) Lymph # (Auto) Mcdonald # (Auto) Eos # (Auto) Baso # (Auto) Abs Immat Gran (auto) Absolute Neuts (auto) Absolute Nucleated RBC Nucleated RBC % (auto) Smear Tech's Comments Hold Purple Top VBG pH VBG pCO2 VBG pO2 VBG HCO3 VBG O2 Saturation VBG Base Excess Sodium Potassium Chloride Carbon Dioxide Anion Gap BUN Creatinine Estim Creat Clear Calc Estimated GFR POC Glucose 195 H 194 H 143 H Random Glucose Estimat Average Glucose Hemoglobin A1c % Osmolality Lactic Acid Calcium Magnesium Iron TIBC % Saturation Unsat Iron Binding Total Bilirubin AST ALT Alkaline Phosphatase Total Protein Albumin Triglycerides Cholesterol LDL Cholesterol, Calc HDL Cholesterol Lipase TSH Free T4 Urine Color Urine Appearance Urine pH Ur Specific Butler Urine Protein Urine Glucose (UA) Urine Ketones Urine Blood Urine Nitrite Ur Leukocyte Esterase Urine RBC Urine WBC Ur Squamous Epith Cells Urine Bacteria Hyaline Casts Urine Osmolality Ur Random Sodium Urine Opiates Screen Ur Buprenorphine Scrn Ur Oxycodone Screen Urine Methadone Screen Urine Fentanyl Screen Ur Barbiturates Screen Carbamazepine Ur Phencyclidine Scrn Ur Amphetamines Screen U Benzodiazepines Scrn Urine Cocaine Screen U Marijuana (THC) Screen COVID-19 ([facility]) COVID-19 Clin Com Influenza Type A (AMANDA) Influenza Type B (AMANDA) Influenza A & B Note TB Test (T-Spot) Com TB Test Nil Control TB Test Panel A TB Test Panel B TB Test Positive [facility] 10/30/24 10/30/24 10/31/24 17:25 19:55 06:33 WBC 11.2 H RBC 3.63 L Hgb 10.7 L Hct 31.4 L MCV 86.5 MCH 29.5 MCHC 34.1 RDW 13.5 Plt Count 288 MPV 8.9 L Immature Gran % (Auto) 0.5 H Neut % (Auto) 74.7 H Lymph % (Auto) 13.2 L Mcdonald % (Auto) 10.5 Eos % (Auto) 0.7 Baso % (Auto) 0.4 Lymph # (Auto) 1.5 Mcdonald # (Auto) 1.2 Eos # (Auto) 0.1 Baso # (Auto) 0.0 Abs Immat Gran (auto) 0.06 H Absolute Neuts (auto) 8.4 H Absolute Nucleated RBC 0.000 Nucleated RBC % (auto) 0.0 Smear Tech's Comments Hold Purple Top VBG pH VBG pCO2 VBG pO2 VBG HCO3 VBG O2 Saturation VBG Base Excess Sodium 136 Potassium 5.1 Chloride 101 Carbon Dioxide 26 Anion Gap 14 BUN 34 H Creatinine 1.17 Estim Creat Clear Calc 28.9 Estimated GFR 45 POC Glucose 244 H 173 H Random Glucose 225 H Estimat Average Glucose Hemoglobin A1c % Osmolality Lactic Acid Calcium 9.2 Magnesium Iron TIBC % Saturation Unsat Iron Binding Total Bilirubin 0.5 AST 15 ALT 23 Alkaline Phosphatase 64 Total Protein 6.8 Albumin 4.3 Triglycerides Cholesterol LDL Cholesterol, Calc HDL Cholesterol Lipase TSH Free T4 Urine Color Urine Appearance Urine pH Ur Specific Butler Urine Protein Urine Glucose (UA) Urine Ketones Urine Blood Urine Nitrite Ur Leukocyte Esterase Urine RBC Urine WBC Ur Squamous Epith Cells Urine Bacteria Hyaline Casts Urine Osmolality Ur Random Sodium Urine Opiates Screen Ur Buprenorphine Scrn Ur Oxycodone Screen Urine Methadone Screen Urine Fentanyl Screen Ur Barbiturates Screen Carbamazepine Ur Phencyclidine Scrn Ur Amphetamines Screen U Benzodiazepines Scrn Urine Cocaine Screen U Marijuana (THC) Screen COVID-19 ([facility]) COVID-19 Clin Com Influenza Type A (AMANDA) Influenza Type B (AMANDA) Influenza A & B Note TB Test (T-Spot) Com TB Test Nil Control TB Test Panel A TB Test Panel B TB Test Positive Cntrl 10/31/24 10/31/24 11/01/24 11:26 16:31 06:33 WBC RBC Hgb Hct MCV MCH MCHC RDW Plt Count MPV Immature Gran % (Auto) Neut % (Auto) Lymph % (Auto) Mcdonald % (Auto) Eos % (Auto) Baso % (Auto) Lymph # (Auto) Mcdonald # (Auto) Eos # (Auto) Baso # (Auto) Abs Immat Gran (auto) Absolute Neuts (auto) Absolute Nucleated RBC Nucleated RBC % (auto) Smear Tech's Comments Hold Purple Top VBG pH VBG pCO2 VBG pO2 VBG HCO3 VBG O2 Saturation VBG Base Excess Sodium Potassium Chloride Carbon Dioxide Anion Gap BUN Creatinine Estim Creat Clear Calc Estimated GFR POC Glucose 178 H 169 H 199 H Random Glucose Estimat Average Glucose Hemoglobin A1c % Osmolality Lactic Acid Calcium Magnesium Iron TIBC % Saturation Unsat Iron Binding Total Bilirubin AST ALT Alkaline Phosphatase Total Protein Albumin Triglycerides Cholesterol LDL Cholesterol, Calc HDL Cholesterol Lipase TSH Free T4 Urine Color Urine Appearance Urine pH Ur Specific Butler Urine Protein Urine Glucose (UA) Urine Ketones Urine Blood Urine Nitrite Ur Leukocyte Esterase Urine RBC Urine WBC Ur Squamous Epith Cells Urine Bacteria Hyaline Casts Urine Osmolality Ur Random Sodium Urine Opiates Screen Ur Buprenorphine Scrn Ur Oxycodone Screen Urine Methadone Screen Urine Fentanyl Screen Ur Barbiturates Screen Carbamazepine Ur Phencyclidine Scrn Ur Amphetamines Screen U Benzodiazepines Scrn Urine Cocaine Screen U Marijuana (THC) Screen COVID-19 ([facility]) COVID-19 Clin Com Influenza Type A (AMANDA) Influenza Type B (AMANDA) Influenza A & B Note TB Test (T-Spot) Com TB Test Nil Control TB Test Panel A TB Test Panel B TB Test Positive [facility] 11/01/24 11/01/24 11/01/24 11:05 16:24 19:41 WBC RBC Hgb Hct MCV MCH MCHC RDW Plt Count MPV Immature Gran % (Auto) Neut % (Auto) Lymph % (Auto) Mcdonald % (Auto) Eos % (Auto) Baso % (Auto) Lymph # (Auto) Mcdonald # (Auto) Eos # (Auto) Baso # (Auto) Abs Immat Gran (auto) Absolute Neuts (auto) Absolute Nucleated RBC Nucleated RBC % (auto) Smear Tech's Comments Hold Purple Top VBG pH VBG pCO2 VBG pO2 VBG HCO3 VBG O2 Saturation VBG Base Excess Sodium Potassium Chloride Carbon Dioxide Anion Gap BUN Creatinine Estim Creat Clear Calc Estimated GFR POC Glucose 257 H 124 H 209 H Random Glucose Estimat Average Glucose Hemoglobin A1c % Osmolality Lactic Acid Calcium Magnesium Iron TIBC % Saturation Unsat Iron Binding Total Bilirubin AST ALT Alkaline Phosphatase Total Protein Albumin Triglycerides Cholesterol LDL Cholesterol, Calc HDL Cholesterol Lipase TSH Free T4 Urine Color Urine Appearance Urine pH Ur Specific Butler Urine Protein Urine Glucose (UA) Urine Ketones Urine Blood Urine Nitrite Ur Leukocyte Esterase Urine RBC Urine WBC Ur Squamous Epith Cells Urine Bacteria Hyaline Casts Urine Osmolality Ur Random Sodium Urine Opiates Screen Ur Buprenorphine Scrn Ur Oxycodone Screen Urine Methadone Screen Urine Fentanyl Screen Ur Barbiturates Screen Carbamazepine Ur Phencyclidine Scrn Ur Amphetamines Screen U Benzodiazepines Scrn Urine Cocaine Screen U Marijuana (THC) Screen COVID-19 ([facility]) COVID-19 Clin Com Influenza Type A (AMANDA) Influenza Type B (AMANDA) Influenza A & B Note TB Test (T-Spot) Com TB Test Nil Control TB Test Panel A TB Test Panel B TB Test Positive [facility] 11/02/24 11/02/24 11/02/24 06:34 11:26 11:28 WBC RBC Hgb Hct MCV MCH MCHC RDW Plt Count MPV Immature Gran % (Auto) Neut % (Auto) Lymph % (Auto) Mcdonald % (Auto) Eos % (Auto) Baso % (Auto) Lymph # (Auto) Mcdonald # (Auto) Eos # (Auto) Baso # (Auto) Abs Immat Gran (auto) Absolute Neuts (auto) Absolute Nucleated RBC Nucleated RBC % (auto) Smear Tech's Comments Hold Purple Top VBG pH VBG pCO2 VBG pO2 VBG HCO3 VBG O2 Saturation VBG Base Excess Sodium Potassium Chloride Carbon Dioxide Anion Gap BUN Creatinine Estim Creat Clear Calc Estimated GFR POC Glucose 185 H 445 H* 469 H* Random Glucose Estimat Average Glucose Hemoglobin A1c % Osmolality Lactic Acid Calcium Magnesium Iron TIBC % Saturation Unsat Iron Binding Total Bilirubin AST ALT Alkaline Phosphatase Total Protein Albumin Triglycerides Cholesterol LDL Cholesterol, Calc HDL Cholesterol Lipase TSH Free T4 Urine Color Urine Appearance Urine pH Ur Specific Butler Urine Protein Urine Glucose (UA) Urine Ketones Urine Blood Urine Nitrite Ur Leukocyte Esterase Urine RBC Urine WBC Ur Squamous Epith Cells Urine Bacteria Hyaline Casts Urine Osmolality Ur Random Sodium Urine Opiates Screen Ur Buprenorphine Scrn Ur Oxycodone Screen Urine Methadone Screen Urine Fentanyl Screen Ur Barbiturates Screen Carbamazepine Ur Phencyclidine Scrn Ur Amphetamines Screen U Benzodiazepines Scrn Urine Cocaine Screen U Marijuana (THC) Screen COVID-19 ([facility]) COVID-19 Clin Com Influenza Type A (AMANDA) Influenza Type B (AMANDA) Influenza A & B Note TB Test (T-Spot) Com TB Test Nil Control TB Test Panel A TB Test Panel B TB Test Positive Cnt 11/02/24 11/02/24 11/02/24 13:18 16:31 19:46 WBC RBC Hgb Hct MCV MCH MCHC RDW Plt Count MPV Immature Gran % (Auto) Neut % (Auto) Lymph % (Auto) Mcdonald % (Auto) Eos % (Auto) Baso % (Auto) Lymph # (Auto) Mcdonald # (Auto) Eos # (Auto) Baso # (Auto) Abs Immat Gran (auto) Absolute Neuts (auto) Absolute Nucleated RBC Nucleated RBC % (auto) Smear Tech's Comments Hold Purple Top VBG pH VBG pCO2 VBG pO2 VBG HCO3 VBG O2 Saturation VBG Base Excess Sodium Potassium Chloride Carbon Dioxide Anion Gap BUN Creatinine Estim Creat Clear Calc Estimated GFR POC Glucose 379 H* 206 H 153 H Random Glucose Estimat Average Glucose Hemoglobin A1c % Osmolality Lactic Acid Calcium Magnesium Iron TIBC % Saturation Unsat Iron Binding Total Bilirubin AST ALT Alkaline Phosphatase Total Protein Albumin Triglycerides Cholesterol LDL Cholesterol, Calc HDL Cholesterol Lipase TSH Free T4 Urine Color Urine Appearance Urine pH Ur Specific Butler Urine Protein Urine Glucose (UA) Urine Ketones Urine Blood Urine Nitrite Ur Leukocyte Esterase Urine RBC Urine WBC Ur Squamous Epith Cells Urine Bacteria Hyaline Casts Urine Osmolality Ur Random Sodium Urine Opiates Screen Ur Buprenorphine Scrn Ur Oxycodone Screen Urine Methadone Screen Urine Fentanyl Screen Ur Barbiturates Screen Carbamazepine Ur Phencyclidine Scrn Ur Amphetamines Screen U Benzodiazepines Scrn Urine Cocaine Screen U Marijuana (THC) Screen COVID-19 ([facility]) COVID-19 Clin Com Influenza Type A (AMANDA) Influenza Type B (AMANDA) Influenza A & B Note TB Test (T-Spot) Com TB Test Nil Control TB Test Panel A TB Test Panel B TB Test Positive Cntrl 11/02/24 11/02/24 11/02/24 20:13 20:14 20:18 WBC 6.8 RBC 3.44 L Hgb 10.4 L Hct 29.1 L MCV 84.6 MCH 30.2 MCHC 35.7 H RDW 13.2 Plt Count 286 MPV 8.6 L Immature Gran % (Auto) 0.4 Neut % (Auto) 59.4 Lymph % (Auto) 27.6 Mcdonald % (Auto) 11.3 H Eos % (Auto) 1.0 Baso % (Auto) 0.3 Lymph # (Auto) 1.9 Mcdonald # (Auto) 0.8 Eos # (Auto) 0.1 Baso # (Auto) 0.0 Abs Immat Gran (auto) 0.03 Absolute Neuts (auto) 4.1 Absolute Nucleated RBC 0.000 Nucleated RBC % (auto) 0.0 Smear Tech's Comments Hold Purple Top VBG pH 7.44 H VBG pCO2 37 VBG pO2 48 VBG HCO3 26 VBG O2 Saturation 76.0 VBG Base Excess 2.3 Sodium 133 L Potassium 4.7 Chloride 100 Carbon Dioxide 26 Anion Gap 12 BUN 33 H Creatinine 1.86 H Estim Creat Clear Calc 18.0 Estimated GFR 26 POC Glucose Random Glucose 135 H Estimat Average Glucose Hemoglobin A1c % Osmolality Lactic Acid 1.2 Calcium 9.3 Magnesium 2.2 Iron TIBC % Saturation Unsat Iron Binding Total Bilirubin 0.4 AST 16 ALT 25 Alkaline Phosphatase 79 Total Protein 7.1 Albumin 4.4 Triglycerides Cholesterol LDL Cholesterol, Calc HDL Cholesterol Lipase 37 TSH Free T4 Urine Color Urine Appearance Urine pH Ur Specific Butler Urine Protein Urine Glucose (UA) Urine Ketones Urine Blood Urine Nitrite Ur Leukocyte Esterase Urine RBC Urine WBC Ur Squamous Epith Cells Urine Bacteria Hyaline Casts Urine Osmolality Ur Random Sodium Urine Opiates Screen Ur Buprenorphine Scrn Ur Oxycodone Screen Urine Methadone Screen Urine Fentanyl Screen Ur Barbiturates Screen Carbamazepine Ur Phencyclidine Scrn Ur Amphetamines Screen U Benzodiazepines Scrn Urine Cocaine Screen U Marijuana (THC) Screen COVID-19 ([facility]) COVID-19 Clin Com Influenza Type A (AMANDA) Influenza Type B (AMANDA) Influenza A & B Note TB Test (T-Spot) Com TB Test Nil Control TB Test Panel A TB Test Panel B TB Test Positive Cntrl 11/02/24 11/02/24 11/03/24 20:20 21:38 06:38 WBC RBC Hgb Hct MCV MCH MCHC RDW Plt Count MPV Immature Gran % (Auto) Neut % (Auto) Lymph % (Auto) Mcdonald % (Auto) Eos % (Auto) Baso % (Auto) Lymph # (Auto) Mcdonald # (Auto) Eos # (Auto) Baso # (Auto) Abs Immat Gran (auto) Absolute Neuts (auto) Absolute Nucleated RBC Nucleated RBC % (auto) Smear Tech's Comments Hold Purple Top VBG pH VBG pCO2 VBG pO2 VBG HCO3 VBG O2 Saturation VBG Base Excess Sodium Potassium Chloride Carbon Dioxide Anion Gap BUN Creatinine Estim Creat Clear Calc Estimated GFR POC Glucose 123 H 164 H Random Glucose Estimat Average Glucose Hemoglobin A1c % Osmolality Lactic Acid Calcium Magnesium Iron TIBC % Saturation Unsat Iron Binding Total Bilirubin AST ALT Alkaline Phosphatase Total Protein Albumin Triglycerides Cholesterol LDL Cholesterol, Calc HDL Cholesterol Lipase TSH Free T4 Urine Color Yellow Urine Appearance Clear Urine pH 6.5 Ur Specific Butler 1.015 Urine Protein Negative Urine Glucose (UA) Negative Urine Ketones Negative Urine Blood Negative Urine Nitrite Negative Ur Leukocyte Esterase Large (3+) H Urine RBC 0-2 Urine WBC 11-20 H Ur Squamous Epith Cells 0-2 Urine Bacteria None Seen Hyaline Casts 0-2 Urine Osmolality Ur Random Sodium Urine Opiates Screen Ur Buprenorphine Scrn Ur Oxycodone Screen Urine Methadone Screen Urine Fentanyl Screen Ur Barbiturates Screen Carbamazepine Ur Phencyclidine Scrn Ur Amphetamines Screen U Benzodiazepines Scrn Urine Cocaine Screen U Marijuana (THC) Screen COVID-19 ([facility]) COVID-19 Clin Com Influenza Type A (AMANDA) Influenza Type B (AMANDA) Influenza A & B Note TB Test (T-Spot) Com TB Test Nil Control TB Test Panel A TB Test Panel B TB Test Positive [facility] 11/03/24 11/03/24 11/04/24 11:23 16:03 06:47 WBC RBC Hgb Hct MCV MCH MCHC RDW Plt Count MPV Immature Gran % (Auto) Neut % (Auto) Lymph % (Auto) Mcdonald % (Auto) Eos % (Auto) Baso % (Auto) Lymph # (Auto) Mcdonald # (Auto) Eos # (Auto) Baso # (Auto) Abs Immat Gran (auto) Absolute Neuts (auto) Absolute Nucleated RBC Nucleated RBC % (auto) Smear Tech's Comments Hold Purple Top VBG pH VBG pCO2 VBG pO2 VBG HCO3 VBG O2 Saturation VBG Base Excess Sodium Potassium Chloride Carbon Dioxide Anion Gap BUN Creatinine Estim Creat Clear Calc Estimated GFR POC Glucose 238 H 185 H 148 H Random Glucose Estimat Average Glucose Hemoglobin A1c % Osmolality Lactic Acid Calcium Magnesium Iron TIBC % Saturation Unsat Iron Binding Total Bilirubin AST ALT Alkaline Phosphatase Total Protein Albumin Triglycerides Cholesterol LDL Cholesterol, Calc HDL Cholesterol Lipase TSH Free T4 Urine Color Urine Appearance Urine pH Ur Specific Butler Urine Protein Urine Glucose (UA) Urine Ketones Urine Blood Urine Nitrite Ur Leukocyte Esterase Urine RBC Urine WBC Ur Squamous Epith Cells Urine Bacteria Hyaline Casts Urine Osmolality Ur Random Sodium Urine Opiates Screen Ur Buprenorphine Scrn Ur Oxycodone Screen Urine Methadone Screen Urine Fentanyl Screen Ur Barbiturates Screen Carbamazepine Ur Phencyclidine Scrn Ur Amphetamines Screen U Benzodiazepines Scrn Urine Cocaine Screen U Marijuana (THC) Screen COVID-19 ([facility]) COVID-19 Clin Com Influenza Type A (AMANDA) Influenza Type B (AMANDA) Influenza A & B Note TB Test (T-Spot) Com TB Test Nil Control TB Test Panel A TB Test Panel B TB Test Positive [facility] 11/04/24 11/04/24 11/04/24 09:52 11:20 16:30 WBC RBC Hgb Hct MCV MCH MCHC RDW Plt Count MPV Immature Gran % (Auto) Neut % (Auto) Lymph % (Auto) Mcdonald % (Auto) Eos % (Auto) Baso % (Auto) Lymph # (Auto) Mcdonald # (Auto) Eos # (Auto) Baso # (Auto) Abs Immat Gran (auto) Absolute Neuts (auto) Absolute Nucleated RBC Nucleated RBC % (auto) Smear Tech's Comments Hold Purple Top VBG pH VBG pCO2 VBG pO2 VBG HCO3 VBG O2 Saturation VBG Base Excess Sodium 134 L Potassium 5.5 H Chloride 102 Carbon Dioxide 22 Anion Gap 16 BUN 35 H Creatinine 1.15 Estim Creat Clear Calc 29.2 Estimated GFR 46 POC Glucose 178 H 139 H Random Glucose 232 H Estimat Average Glucose Hemoglobin A1c % Osmolality Lactic Acid Calcium 9.1 Magnesium Iron TIBC % Saturation Unsat Iron Binding Total Bilirubin 0.3 AST 25 ALT 25 Alkaline Phosphatase 67 Total Protein 6.9 Albumin 4.2 Triglycerides Cholesterol LDL Cholesterol, Calc HDL Cholesterol Lipase TSH Free T4 Urine Color Urine Appearance Urine pH Ur Specific Butler Urine Protein Urine Glucose (UA) Urine Ketones Urine Blood Urine Nitrite Ur Leukocyte Esterase Urine RBC Urine WBC Ur Squamous Epith Cells Urine Bacteria Hyaline Casts Urine Osmolality Ur Random Sodium Urine Opiates Screen Ur Buprenorphine Scrn Ur Oxycodone Screen Urine Methadone Screen Urine Fentanyl Screen Ur Barbiturates Screen Carbamazepine Ur Phencyclidine Scrn Ur Amphetamines Screen U Benzodiazepines Scrn Urine Cocaine Screen U Marijuana (THC) Screen COVID-19 ([facility]) COVID-19 Clin Com Influenza Type A (AMANDA) Influenza Type B (AMANDA) Influenza A & B Note TB Test (T-Spot) Com TB Test Nil Control TB Test Panel A TB Test Panel B TB Test Positive Cntrl 11/04/24 11/04/24 11/05/24 16:53 21:12 06:28 WBC RBC Hgb Hct MCV MCH MCHC RDW Plt Count MPV Immature Gran % (Auto) Neut % (Auto) Lymph % (Auto) Mcdonald % (Auto) Eos % (Auto) Baso % (Auto) Lymph # (Auto) Mcdonald # (Auto) Eos # (Auto) Baso # (Auto) Abs Immat Gran (auto) Absolute Neuts (auto) Absolute Nucleated RBC Nucleated RBC % (auto) Smear Tech's Comments Hold Purple Top VBG pH VBG pCO2 VBG pO2 VBG HCO3 VBG O2 Saturation VBG Base Excess Sodium Potassium Chloride Carbon Dioxide Anion Gap BUN Creatinine Estim Creat Clear Calc Estimated GFR POC Glucose 192 H 199 H 155 H Random Glucose Estimat Average Glucose Hemoglobin A1c % Osmolality Lactic Acid Calcium Magnesium Iron TIBC % Saturation Unsat Iron Binding Total Bilirubin AST ALT Alkaline Phosphatase Total Protein Albumin Triglycerides Cholesterol LDL Cholesterol, Calc HDL Cholesterol Lipase TSH Free T4 Urine Color Urine Appearance Urine pH Ur Specific Butler Urine Protein Urine Glucose (UA) Urine Ketones Urine Blood Urine Nitrite Ur Leukocyte Esterase Urine RBC Urine WBC Ur Squamous Epith Cells Urine Bacteria Hyaline Casts Urine Osmolality Ur Random Sodium Urine Opiates Screen Ur Buprenorphine Scrn Ur Oxycodone Screen Urine Methadone Screen Urine Fentanyl Screen Ur Barbiturates Screen Carbamazepine Ur Phencyclidine Scrn Ur Amphetamines Screen U Benzodiazepines Scrn Urine Cocaine Screen U Marijuana (THC) Screen COVID-19 ([facility]) COVID-19 Clin Com Influenza Type A (AMANDA) Influenza Type B (AMANDA) Influenza A & B Note TB Test (T-Spot) Com TB Test Nil Control TB Test Panel A TB Test Panel B TB Test Positive Cntrl 11/05/24 11/05/24 11/05/24 11:14 16:10 20:54 WBC RBC Hgb Hct MCV MCH MCHC RDW Plt Count MPV Immature Gran % (Auto) Neut % (Auto) Lymph % (Auto) Mcdonald % (Auto) Eos % (Auto) Baso % (Auto) Lymph # (Auto) Mcdonald # (Auto) Eos # (Auto) Baso # (Auto) Abs Immat Gran (auto) Absolute Neuts (auto) Absolute Nucleated RBC Nucleated RBC % (auto) Smear Tech's Comments Hold Purple Top VBG pH VBG pCO2 VBG pO2 VBG HCO3 VBG O2 Saturation VBG Base Excess Sodium Potassium Chloride Carbon Dioxide Anion Gap BUN Creatinine Estim Creat Clear Calc Estimated GFR POC Glucose 145 H 145 H 205 H Random Glucose Estimat Average Glucose Hemoglobin A1c % Osmolality Lactic Acid Calcium Magnesium Iron TIBC % Saturation Unsat Iron Binding Total Bilirubin AST ALT Alkaline Phosphatase Total Protein Albumin Triglycerides Cholesterol LDL Cholesterol, Calc HDL Cholesterol Lipase TSH Free T4 Urine Color Urine Appearance Urine pH Ur Specific Butler Urine Protein Urine Glucose (UA) Urine Ketones Urine Blood Urine Nitrite Ur Leukocyte Esterase Urine RBC Urine WBC Ur Squamous Epith Cells Urine Bacteria Hyaline Casts Urine Osmolality Ur Random Sodium Urine Opiates Screen Ur Buprenorphine Scrn Ur Oxycodone Screen Urine Methadone Screen Urine Fentanyl Screen Ur Barbiturates Screen Carbamazepine Ur Phencyclidine Scrn Ur Amphetamines Screen U Benzodiazepines Scrn Urine Cocaine Screen U Marijuana (THC) Screen COVID-19 ([facility]) COVID-19 Clin Com Influenza Type A (AMANDA) Influenza Type B (AMANDA) Influenza A & B Note TB Test (T-Spot) Com TB Test Nil Control TB Test Panel A TB Test Panel B TB Test Positive [facility] 11/06/24 11/06/24 11/06/24 06:29 11:28 16:19 WBC RBC Hgb Hct MCV MCH MCHC RDW Plt Count MPV Immature Gran % (Auto) Neut % (Auto) Lymph % (Auto) Mcdonald % (Auto) Eos % (Auto) Baso % (Auto) Lymph # (Auto) Mcdonald # (Auto) Eos # (Auto) Baso # (Auto) Abs Immat Gran (auto) Absolute Neuts (auto) Absolute Nucleated RBC Nucleated RBC % (auto) Smear Tech's Comments Hold Purple Top VBG pH VBG pCO2 VBG pO2 VBG HCO3 VBG O2 Saturation VBG Base Excess Sodium Potassium Chloride Carbon Dioxide Anion Gap BUN Creatinine Estim Creat Clear Calc Estimated GFR POC Glucose 186 H 166 H 168 H Random Glucose Estimat Average Glucose Hemoglobin A1c % Osmolality Lactic Acid Calcium Magnesium Iron TIBC % Saturation Unsat Iron Binding Total Bilirubin AST ALT Alkaline Phosphatase Total Protein Albumin Triglycerides Cholesterol LDL Cholesterol, Calc HDL Cholesterol Lipase TSH Free T4 Urine Color Urine Appearance Urine pH Ur Specific Butler Urine Protein Urine Glucose (UA) Urine Ketones Urine Blood Urine Nitrite Ur Leukocyte Esterase Urine RBC Urine WBC Ur Squamous Epith Cells Urine Bacteria Hyaline Casts Urine Osmolality Ur Random Sodium Urine Opiates Screen Ur Buprenorphine Scrn Ur Oxycodone Screen Urine Methadone Screen Urine Fentanyl Screen Ur Barbiturates Screen Carbamazepine Ur Phencyclidine Scrn Ur Amphetamines Screen U Benzodiazepines Scrn Urine Cocaine Screen U Marijuana (THC) Screen COVID-19 ([facility]) COVID-19 Clin Com Influenza Type A (AMANDA) Influenza Type B (AMANDA) Influenza A & B Note TB Test (T-Spot) Com TB Test Nil Control TB Test Panel A TB Test Panel B TB Test Positive [facility] 11/06/24 11/07/24 11/07/24 21:20 06:20 10:45 WBC RBC Hgb Hct MCV MCH MCHC RDW Plt Count MPV Immature Gran % (Auto) Neut % (Auto) Lymph % (Auto) Mcdonald % (Auto) Eos % (Auto) Baso % (Auto) Lymph # (Auto) Mcdonald # (Auto) Eos # (Auto) Baso # (Auto) Abs Immat Gran (auto) Absolute Neuts (auto) Absolute Nucleated RBC Nucleated RBC % (auto) Smear Tech's Comments Hold Purple Top VBG pH VBG pCO2 VBG pO2 VBG HCO3 VBG O2 Saturation VBG Base Excess Sodium Potassium Chloride Carbon Dioxide Anion Gap BUN Creatinine Estim Creat Clear Calc Estimated GFR POC Glucose 82 125 H 159 H Random Glucose Estimat Average Glucose Hemoglobin A1c % Osmolality Lactic Acid Calcium Magnesium Iron TIBC % Saturation Unsat Iron Binding Total Bilirubin AST ALT Alkaline Phosphatase Total Protein Albumin Triglycerides Cholesterol LDL Cholesterol, Calc HDL Cholesterol Lipase TSH Free T4 Urine Color Urine Appearance Urine pH Ur Specific Butler Urine Protein Urine Glucose (UA) Urine Ketones Urine Blood Urine Nitrite Ur Leukocyte Esterase Urine RBC Urine WBC Ur Squamous Epith Cells Urine Bacteria Hyaline Casts Urine Osmolality Ur Random Sodium Urine Opiates Screen Ur Buprenorphine Scrn Ur Oxycodone Screen Urine Methadone Screen Urine Fentanyl Screen Ur Barbiturates Screen Carbamazepine Ur Phencyclidine Scrn Ur Amphetamines Screen U Benzodiazepines Scrn Urine Cocaine Screen U Marijuana (THC) Screen COVID-19 ([facility]) COVID-19 Clin Com Influenza Type A (AMANDA) Influenza Type B (AMANDA) Influenza A & B Note TB Test (T-Spot) Com TB Test Nil Control TB Test Panel A TB Test Panel B TB Test Positive Cntrl 11/07/24 11/07/24 11/08/24 16:17 20:21 06:25 WBC RBC Hgb Hct MCV MCH MCHC RDW Plt Count MPV Immature Gran % (Auto) Neut % (Auto) Lymph % (Auto) Mcdonald % (Auto) Eos % (Auto) Baso % (Auto) Lymph # (Auto) Mcdonald # (Auto) Eos # (Auto) Baso # (Auto) Abs Immat Gran (auto) Absolute Neuts (auto) Absolute Nucleated RBC Nucleated RBC % (auto) Smear Tech's Comments Hold Purple Top VBG pH VBG pCO2 VBG pO2 VBG HCO3 VBG O2 Saturation VBG Base Excess Sodium Potassium Chloride Carbon Dioxide Anion Gap BUN Creatinine Estim Creat Clear Calc Estimated GFR POC Glucose 115 142 H 147 H Random Glucose Estimat Average Glucose Hemoglobin A1c % Osmolality Lactic Acid Calcium Magnesium Iron TIBC % Saturation Unsat Iron Binding Total Bilirubin AST ALT Alkaline Phosphatase Total Protein Albumin Triglycerides Cholesterol LDL Cholesterol, Calc HDL Cholesterol Lipase TSH Free T4 Urine Color Urine Appearance Urine pH Ur Specific Butler Urine Protein Urine Glucose (UA) Urine Ketones Urine Blood Urine Nitrite Ur Leukocyte Esterase Urine RBC Urine WBC Ur Squamous Epith Cells Urine Bacteria Hyaline Casts Urine Osmolality Ur Random Sodium Urine Opiates Screen Ur Buprenorphine Scrn Ur Oxycodone Screen Urine Methadone Screen Urine Fentanyl Screen Ur Barbiturates Screen Carbamazepine Ur Phencyclidine Scrn Ur Amphetamines Screen U Benzodiazepines Scrn Urine Cocaine Screen U Marijuana (THC) Screen COVID-19 ([facility]ESA) COVID-19 Clin Com Influenza Type A (AMANDA) Influenza Type B (AMANDA) Influenza A & B Note TB Test (T-Spot) Com TB Test Nil Control TB Test Panel A TB Test Panel B TB Test Positive Cntr 11/08/24 11/08/24 11/08/24 11:07 16:51 21:23 WBC RBC Hgb Hct MCV MCH MCHC RDW Plt Count MPV Immature Gran % (Auto) Neut % (Auto) Lymph % (Auto) Mcdonald % (Auto) Eos % (Auto) Baso % (Auto) Lymph # (Auto) Mcdonald # (Auto) Eos # (Auto) Baso # (Auto) Abs Immat Gran (auto) Absolute Neuts (auto) Absolute Nucleated RBC Nucleated RBC % (auto) Smear Tech's Comments Hold Purple Top VBG pH VBG pCO2 VBG pO2 VBG HCO3 VBG O2 Saturation VBG Base Excess Sodium Potassium Chloride Carbon Dioxide Anion Gap BUN Creatinine Estim Creat Clear Calc Estimated GFR POC Glucose 245 H 115 255 H Random Glucose Estimat Average Glucose Hemoglobin A1c % Osmolality Lactic Acid Calcium Magnesium Iron TIBC % Saturation Unsat Iron Binding Total Bilirubin AST ALT Alkaline Phosphatase Total Protein Albumin Triglycerides Cholesterol LDL Cholesterol, Calc HDL Cholesterol Lipase TSH Free T4 Urine Color Urine Appearance Urine pH Ur Specific Butler Urine Protein Urine Glucose (UA) Urine Ketones Urine Blood Urine Nitrite Ur Leukocyte Esterase Urine RBC Urine WBC Ur Squamous Epith Cells Urine Bacteria Hyaline Casts Urine Osmolality Ur Random Sodium Urine Opiates Screen Ur Buprenorphine Scrn Ur Oxycodone Screen Urine Methadone Screen Urine Fentanyl Screen Ur Barbiturates Screen Carbamazepine Ur Phencyclidine Scrn Ur Amphetamines Screen U Benzodiazepines Scrn Urine Cocaine Screen U Marijuana (THC) Screen COVID-19 ([facility]ES[facility]) COVID-19 Clin Com Influenza Type A (AMANDA) Influenza Type B (AMANDA) Influenza A & B Note TB Test (T-Spot) Com TB Test Nil Control TB Test Panel A TB Test Panel B TB Test Positive Cnt 11/09/24 11/09/24 11/09/24 06:39 11:02 16:04 WBC RBC Hgb Hct MCV MCH MCHC RDW Plt Count MPV Immature Gran % (Auto) Neut % (Auto) Lymph % (Auto) Mcdonald % (Auto) Eos % (Auto) Baso % (Auto) Lymph # (Auto) Mcdonald # (Auto) Eos # (Auto) Baso # (Auto) Abs Immat Gran (auto) Absolute Neuts (auto) Absolute Nucleated RBC Nucleated RBC % (auto) Smear Tech's Comments Hold Purple Top VBG pH VBG pCO2 VBG pO2 VBG HCO3 VBG O2 Saturation VBG Base Excess Sodium Potassium Chloride Carbon Dioxide Anion Gap BUN Creatinine Estim Creat Clear Calc Estimated GFR POC Glucose 137 H 302 H 77 Random Glucose Estimat Average Glucose Hemoglobin A1c % Osmolality Lactic Acid Calcium Magnesium Iron TIBC % Saturation Unsat Iron Binding Total Bilirubin AST ALT Alkaline Phosphatase Total Protein Albumin Triglycerides Cholesterol LDL Cholesterol, Calc HDL Cholesterol Lipase TSH Free T4 Urine Color Urine Appearance Urine pH Ur Specific Butler Urine Protein Urine Glucose (UA) Urine Ketones Urine Blood Urine Nitrite Ur Leukocyte Esterase Urine RBC Urine WBC Ur Squamous Epith Cells Urine Bacteria Hyaline Casts Urine Osmolality Ur Random Sodium Urine Opiates Screen Ur Buprenorphine Scrn Ur Oxycodone Screen Urine Methadone Screen Urine Fentanyl Screen Ur Barbiturates Screen Carbamazepine Ur Phencyclidine Scrn Ur Amphetamines Screen U Benzodiazepines Scrn Urine Cocaine Screen U Marijuana (THC) Screen COVID-19 ([facility]ES[facility]) COVID-19 Clin Com Influenza Type A (AMANDA) Influenza Type B (AMANDA) Influenza A & B Note TB Test (T-Spot) Com TB Test Nil Control TB Test Panel A TB Test Panel B TB Test Positive Cntrl 11/09/24 11/10/24 11/10/24 20:29 06:37 11:29 WBC RBC Hgb Hct MCV MCH MCHC RDW Plt Count MPV Immature Gran % (Auto) Neut % (Auto) Lymph % (Auto) Mcdonald % (Auto) Eos % (Auto) Baso % (Auto) Lymph # (Auto) Mcdonald # (Auto) Eos # (Auto) Baso # (Auto) Abs Immat Gran (auto) Absolute Neuts (auto) Absolute Nucleated RBC Nucleated RBC % (auto) Smear Tech's Comments Hold Purple Top VBG pH VBG pCO2 VBG pO2 VBG HCO3 VBG O2 Saturation VBG Base Excess Sodium Potassium Chloride Carbon Dioxide Anion Gap BUN Creatinine Estim Creat Clear Calc Estimated GFR POC Glucose 242 H 187 H 230 H Random Glucose Estimat Average Glucose Hemoglobin A1c % Osmolality Lactic Acid Calcium Magnesium Iron TIBC % Saturation Unsat Iron Binding Total Bilirubin AST ALT Alkaline Phosphatase Total Protein Albumin Triglycerides Cholesterol LDL Cholesterol, Calc HDL Cholesterol Lipase TSH Free T4 Urine Color Urine Appearance Urine pH Ur Specific Butler Urine Protein Urine Glucose (UA) Urine Ketones Urine Blood Urine Nitrite Ur Leukocyte Esterase Urine RBC Urine WBC Ur Squamous Epith Cells Urine Bacteria Hyaline Casts Urine Osmolality Ur Random Sodium Urine Opiates Screen Ur Buprenorphine Scrn Ur Oxycodone Screen Urine Methadone Screen Urine Fentanyl Screen Ur Barbiturates Screen Carbamazepine Ur Phencyclidine Scrn Ur Amphetamines Screen U Benzodiazepines Scrn Urine Cocaine Screen U Marijuana (THC) Screen COVID-19 ([facility]) COVID-19 Clin Com Influenza Type A (AMANDA) Influenza Type B (AMANDA) Influenza A & B Note TB Test (T-Spot) Com TB Test Nil Control TB Test Panel A TB Test Panel B TB Test Positive Cntrl 11/10/24 11/10/24 11/11/24 16:24 20:05 06:32 WBC RBC Hgb Hct MCV MCH MCHC RDW Plt Count MPV Immature Gran % (Auto) Neut % (Auto) Lymph % (Auto) Mcdonald % (Auto) Eos % (Auto) Baso % (Auto) Lymph # (Auto) Mcdonald # (Auto) Eos # (Auto) Baso # (Auto) Abs Immat Gran (auto) Absolute Neuts (auto) Absolute Nucleated RBC Nucleated RBC % (auto) Smear Tech's Comments Hold Purple Top VBG pH VBG pCO2 VBG pO2 VBG HCO3 VBG O2 Saturation VBG Base Excess Sodium Potassium Chloride Carbon Dioxide Anion Gap BUN Creatinine Estim Creat Clear Calc Estimated GFR POC Glucose 105 126 H 159 H Random Glucose Estimat Average Glucose Hemoglobin A1c % Osmolality Lactic Acid Calcium Magnesium Iron TIBC % Saturation Unsat Iron Binding Total Bilirubin AST ALT Alkaline Phosphatase Total Protein Albumin Triglycerides Cholesterol LDL Cholesterol, Calc HDL Cholesterol Lipase TSH Free T4 Urine Color Urine Appearance Urine pH Ur Specific Butler Urine Protein Urine Glucose (UA) Urine Ketones Urine Blood Urine Nitrite Ur Leukocyte Esterase Urine RBC Urine WBC Ur Squamous Epith Cells Urine Bacteria Hyaline Casts Urine Osmolality Ur Random Sodium Urine Opiates Screen Ur Buprenorphine Scrn Ur Oxycodone Screen Urine Methadone Screen Urine Fentanyl Screen Ur Barbiturates Screen Carbamazepine Ur Phencyclidine Scrn Ur Amphetamines Screen U Benzodiazepines Scrn Urine Cocaine Screen U Marijuana (THC) Screen COVID-19 ([facility]ES[facility]) COVID-19 Clin Com Influenza Type A (AMANDA) Influenza Type B (AMANDA) Influenza A & B Note TB Test (T-Spot) Com TB Test Nil Control TB Test Panel A TB Test Panel B TB Test Positive Cntrl 11/11/24 11/11/24 11/11/24 11:17 16:17 20:14 WBC RBC Hgb Hct MCV MCH MCHC RDW Plt Count MPV Immature Gran % (Auto) Neut % (Auto) Lymph % (Auto) Mcdonald % (Auto) Eos % (Auto) Baso % (Auto) Lymph # (Auto) Mcdonald # (Auto) Eos # (Auto) Baso # (Auto) Abs Immat Gran (auto) Absolute Neuts (auto) Absolute Nucleated RBC Nucleated RBC % (auto) Smear Tech's Comments Hold Purple Top VBG pH VBG pCO2 VBG pO2 VBG HCO3 VBG O2 Saturation VBG Base Excess Sodium Potassium Chloride Carbon Dioxide Anion Gap BUN Creatinine Estim Creat Clear Calc Estimated GFR POC Glucose 140 H 130 H 194 H Random Glucose Estimat Average Glucose Hemoglobin A1c % Osmolality Lactic Acid Calcium Magnesium Iron TIBC % Saturation Unsat Iron Binding Total Bilirubin AST ALT Alkaline Phosphatase Total Protein Albumin Triglycerides Cholesterol LDL Cholesterol, Calc HDL Cholesterol Lipase TSH Free T4 Urine Color Urine Appearance Urine pH Ur Specific Butler Urine Protein Urine Glucose (UA) Urine Ketones Urine Blood Urine Nitrite Ur Leukocyte Esterase Urine RBC Urine WBC Ur Squamous Epith Cells Urine Bacteria Hyaline Casts Urine Osmolality Ur Random Sodium Urine Opiates Screen Ur Buprenorphine Scrn Ur Oxycodone Screen Urine Methadone Screen Urine Fentanyl Screen Ur Barbiturates Screen Carbamazepine Ur Phencyclidine Scrn Ur Amphetamines Screen U Benzodiazepines Scrn Urine Cocaine Screen U Marijuana (THC) Screen COVID-19 ([facility]) COVID-19 Clin Com Influenza Type A (AMANDA) Influenza Type B (AMANDA) Influenza A & B Note TB Test (T-Spot) Com TB Test Nil Control TB Test Panel A TB Test Panel B TB Test Positive Cntr 11/12/24 11/12/24 11/12/24 06:32 11:19 16:20 WBC RBC Hgb Hct MCV MCH MCHC RDW Plt Count MPV Immature Gran % (Auto) Neut % (Auto) Lymph % (Auto) Mcdonald % (Auto) Eos % (Auto) Baso % (Auto) Lymph # (Auto) Mcdonald # (Auto) Eos # (Auto) Baso # (Auto) Abs Immat Gran (auto) Absolute Neuts (auto) Absolute Nucleated RBC Nucleated RBC % (auto) Smear Tech's Comments Hold Purple Top VBG pH VBG pCO2 VBG pO2 VBG HCO3 VBG O2 Saturation VBG Base Excess Sodium Potassium Chloride Carbon Dioxide Anion Gap BUN Creatinine Estim Creat Clear Calc Estimated GFR POC Glucose 171 H 121 H 170 H Random Glucose Estimat Average Glucose Hemoglobin A1c % Osmolality Lactic Acid Calcium Magnesium Iron TIBC % Saturation Unsat Iron Binding Total Bilirubin AST ALT Alkaline Phosphatase Total Protein Albumin Triglycerides Cholesterol LDL Cholesterol, Calc HDL Cholesterol Lipase TSH Free T4 Urine Color Urine Appearance Urine pH Ur Specific Butler Urine Protein Urine Glucose (UA) Urine Ketones Urine Blood Urine Nitrite Ur Leukocyte Esterase Urine RBC Urine WBC Ur Squamous Epith Cells Urine Bacteria Hyaline Casts Urine Osmolality Ur Random Sodium Urine Opiates Screen Ur Buprenorphine Scrn Ur Oxycodone Screen Urine Methadone Screen Urine Fentanyl Screen Ur Barbiturates Screen Carbamazepine Ur Phencyclidine Scrn Ur Amphetamines Screen U Benzodiazepines Scrn Urine Cocaine Screen U Marijuana (THC) Screen COVID-19 (TRESA) COVID-19 Clin Com Influenza Type A (AMANDA) Influenza Type B (AMANDA) Influenza A & B Note TB Test (T-Spot) Com TB Test Nil Control TB Test Panel A TB Test Panel B TB Test Positive [facility] 11/13/24 11/13/24 11/13/24 06:41 09:09 11:20 WBC RBC Hgb Hct MCV MCH MCHC RDW Plt Count MPV Immature Gran % (Auto) Neut % (Auto) Lymph % (Auto) Mcdonald % (Auto) Eos % (Auto) Baso % (Auto) Lymph # (Auto) Mcdonald # (Auto) Eos # (Auto) Baso # (Auto) Abs Immat Gran (auto) Absolute Neuts (auto) Absolute Nucleated RBC Nucleated RBC % (auto) Smear Tech's Comments Hold Purple Top VBG pH VBG pCO2 VBG pO2 VBG HCO3 VBG O2 Saturation VBG Base Excess Sodium Potassium Chloride Carbon Dioxide Anion Gap BUN Creatinine Estim Creat Clear Calc Estimated GFR POC Glucose 173 H 181 H Random Glucose Estimat Average Glucose Hemoglobin A1c % Osmolality Lactic Acid Calcium Magnesium Iron TIBC % Saturation Unsat Iron Binding Total Bilirubin AST ALT Alkaline Phosphatase Total Protein Albumin Triglycerides Cholesterol LDL Cholesterol, Calc HDL Cholesterol Lipase TSH Free T4 Urine Color Urine Appearance Urine pH Ur Specific Butler Urine Protein Urine Glucose (UA) Urine Ketones Urine Blood Urine Nitrite Ur Leukocyte Esterase Urine RBC Urine WBC Ur Squamous Epith Cells Urine Bacteria Hyaline Casts Urine Osmolality Ur Random Sodium Urine Opiates Screen Ur Buprenorphine Scrn Ur Oxycodone Screen Urine Methadone Screen Urine Fentanyl Screen Ur Barbiturates Screen Carbamazepine 9.1 Ur Phencyclidine Scrn Ur Amphetamines Screen U Benzodiazepines Scrn Urine Cocaine Screen U Marijuana (THC) Screen COVID-19 (TRESA) COVID-19 Clin Com Influenza Type A (AMANDA) Influenza Type B (AMANDA) Influenza A & B Note TB Test (T-Spot) Com TB Test Nil Control TB Test Panel A TB Test Panel B TB Test Positive Cntrl 11/13/24 11/13/24 11/13/24 11:27 11:30 15:40 WBC RBC Hgb Hct MCV MCH MCHC RDW Plt Count MPV Immature Gran % (Auto) Neut % (Auto) Lymph % (Auto) Mcdonald % (Auto) Eos % (Auto) Baso % (Auto) Lymph # (Auto) Mcdonald # (Auto) Eos # (Auto) Baso # (Auto) Abs Immat Gran (auto) Absolute Neuts (auto) Absolute Nucleated RBC Nucleated RBC % (auto) Smear Tech's Comments Hold Purple Top SEE NOTE VBG pH VBG pCO2 VBG pO2 VBG HCO3 VBG O2 Saturation VBG Base Excess Sodium 127 L Potassium 4.8 Chloride 95 L Carbon Dioxide 24 Anion Gap 13 BUN 21 H Creatinine 0.85 Estim Creat Clear Calc 39.5 Estimated GFR > 60 POC Glucose Random Glucose 191 H Estimat Average Glucose Hemoglobin A1c % Osmolality 271 L Lactic Acid Calcium 9.4 Magnesium Iron TIBC % Saturation Unsat Iron Binding Total Bilirubin 0.5 AST 16 ALT 21 Alkaline Phosphatase 68 Total Protein 7.2 Albumin 4.6 Triglycerides Cholesterol LDL Cholesterol, Calc HDL Cholesterol Lipase TSH Free T4 Urine Color Urine Appearance Urine pH Ur Specific Butler Urine Protein Urine Glucose (UA) Urine Ketones Urine Blood Urine Nitrite Ur Leukocyte Esterase Urine RBC Urine WBC Ur Squamous Epith Cells Urine Bacteria Hyaline Casts Urine Osmolality Ur Random Sodium Urine Opiates Screen Ur Buprenorphine Scrn Ur Oxycodone Screen Urine Methadone Screen Urine Fentanyl Screen Ur Barbiturates Screen Carbamazepine Ur Phencyclidine Scrn Ur Amphetamines Screen U Benzodiazepines Scrn Urine Cocaine Screen U Marijuana (THC) Screen COVID-19 (TRESA) COVID-19 Clin Com Influenza Type A (AMANDA) Influenza Type B (AMANDA) Influenza A & B Note TB Test (T-Spot) Com TB Test Nil Control TB Test Panel A TB Test Panel B TB Test Positive Cnt 11/13/24 11/13/24 11/13/24 16:06 17:02 20:40 WBC RBC Hgb Hct MCV MCH MCHC RDW Plt Count MPV Immature Gran % (Auto) Neut % (Auto) Lymph % (Auto) Mcdonald % (Auto) Eos % (Auto) Baso % (Auto) Lymph # (Auto) Mcdonald # (Auto) Eos # (Auto) Baso # (Auto) Abs Immat Gran (auto) Absolute Neuts (auto) Absolute Nucleated RBC Nucleated RBC % (auto) Smear Tech's Comments Hold Purple Top VBG pH VBG pCO2 VBG pO2 VBG HCO3 VBG O2 Saturation VBG Base Excess Sodium Potassium Chloride Carbon Dioxide Anion Gap BUN Creatinine Estim Creat Clear Calc Estimated GFR POC Glucose 177 H 179 H Random Glucose Estimat Average Glucose Hemoglobin A1c % Osmolality Lactic Acid Calcium Magnesium Iron TIBC % Saturation Unsat Iron Binding Total Bilirubin AST ALT Alkaline Phosphatase Total Protein Albumin Triglycerides Cholesterol LDL Cholesterol, Calc HDL Cholesterol Lipase TSH Free T4 Urine Color Urine Appearance Urine pH Ur Specific Butler Urine Protein Urine Glucose (UA) Urine Ketones Urine Blood Urine Nitrite Ur Leukocyte Esterase Urine RBC Urine WBC Ur Squamous Epith Cells Urine Bacteria Hyaline Casts Urine Osmolality 485 Ur Random Sodium 41.0 Urine Opiates Screen Ur Buprenorphine Scrn Ur Oxycodone Screen Urine Methadone Screen Urine Fentanyl Screen Ur Barbiturates Screen Carbamazepine Ur Phencyclidine Scrn Ur Amphetamines Screen U Benzodiazepines Scrn Urine Cocaine Screen U Marijuana (THC) Screen COVID-19 (TRESA) COVID-19 Clin Com Influenza Type A (AMANDA) Influenza Type B (AMANDA) Influenza A & B Note TB Test (T-Spot) Com TB Test Nil Control TB Test Panel A TB Test Panel B TB Test Positive [facility] 11/14/24 11/14/24 11/14/24 06:25 07:19 11:34 WBC RBC Hgb Hct MCV MCH MCHC RDW Plt Count MPV Immature Gran % (Auto) Neut % (Auto) Lymph % (Auto) Mcdonald % (Auto) Eos % (Auto) Baso % (Auto) Lymph # (Auto) Mcdonald # (Auto) Eos # (Auto) Baso # (Auto) Abs Immat Gran (auto) Absolute Neuts (auto) Absolute Nucleated RBC Nucleated RBC % (auto) Smear Tech's Comments Hold Purple Top VBG pH VBG pCO2 VBG pO2 VBG HCO3 VBG O2 Saturation VBG Base Excess Sodium 132 L Potassium 5.0 Chloride 97 Carbon Dioxide 27 Anion Gap 13 BUN 26 H Creatinine 0.93 Estim Creat Clear Calc 36.1 Estimated GFR 59 POC Glucose 170 H 132 H Random Glucose 193 H Estimat Average Glucose Hemoglobin A1c % Osmolality Lactic Acid Calcium 9.5 Magnesium Iron TIBC % Saturation Unsat Iron Binding Total Bilirubin AST ALT Alkaline Phosphatase Total Protein Albumin Triglycerides Cholesterol LDL Cholesterol, Calc HDL Cholesterol Lipase TSH Free T4 Urine Color Urine Appearance Urine pH Ur Specific Butler Urine Protein Urine Glucose (UA) Urine Ketones Urine Blood Urine Nitrite Ur Leukocyte Esterase Urine RBC Urine WBC Ur Squamous Epith Cells Urine Bacteria Hyaline Casts Urine Osmolality Ur Random Sodium Urine Opiates Screen Ur Buprenorphine Scrn Ur Oxycodone Screen Urine Methadone Screen Urine Fentanyl Screen Ur Barbiturates Screen Carbamazepine Ur Phencyclidine Scrn Ur Amphetamines Screen U Benzodiazepines Scrn Urine Cocaine Screen U Marijuana (THC) Screen COVID-19 (TRESA) COVID-19 Clin Com Influenza Type A (AMANDA) Influenza Type B (AMANDA) Influenza A & B Note TB Test (T-Spot) Com TB Test Nil Control TB Test Panel A TB Test Panel B TB Test Positive [facility] 11/14/24 11/14/24 11/15/24 15:59 20:36 06:24 WBC RBC Hgb Hct MCV MCH MCHC RDW Plt Count MPV Immature Gran % (Auto) Neut % (Auto) Lymph % (Auto) Mcdonald % (Auto) Eos % (Auto) Baso % (Auto) Lymph # (Auto) Mcdonald # (Auto) Eos # (Auto) Baso # (Auto) Abs Immat Gran (auto) Absolute Neuts (auto) Absolute Nucleated RBC Nucleated RBC % (auto) Smear Tech's Comments Hold Purple Top VBG pH VBG pCO2 VBG pO2 VBG HCO3 VBG O2 Saturation VBG Base Excess Sodium Potassium Chloride Carbon Dioxide Anion Gap BUN Creatinine Estim Creat Clear Calc Estimated GFR POC Glucose 199 H 98 199 H Random Glucose Estimat Average Glucose Hemoglobin A1c % Osmolality Lactic Acid Calcium Magnesium Iron TIBC % Saturation Unsat Iron Binding Total Bilirubin AST ALT Alkaline Phosphatase Total Protein Albumin Triglycerides Cholesterol LDL Cholesterol, Calc HDL Cholesterol Lipase TSH Free T4 Urine Color Urine Appearance Urine pH Ur Specific Butler Urine Protein Urine Glucose (UA) Urine Ketones Urine Blood Urine Nitrite Ur Leukocyte Esterase Urine RBC Urine WBC Ur Squamous Epith Cells Urine Bacteria Hyaline Casts Urine Osmolality Ur Random Sodium Urine Opiates Screen Ur Buprenorphine Scrn Ur Oxycodone Screen Urine Methadone Screen Urine Fentanyl Screen Ur Barbiturates Screen Carbamazepine Ur Phencyclidine Scrn Ur Amphetamines Screen U Benzodiazepines Scrn Urine Cocaine Screen U Marijuana (THC) Screen COVID-19 (TRESA) COVID-19 Clin Com Influenza Type A (AMANDA) Influenza Type B (AMANDA) Influenza A & B Note TB Test (T-Spot) Com TB Test Nil Control TB Test Panel A TB Test Panel B TB Test Positive Cntrl 11/15/24 11/15/24 11/15/24 11:35 16:20 20:49 WBC RBC Hgb Hct MCV MCH MCHC RDW Plt Count MPV Immature Gran % (Auto) Neut % (Auto) Lymph % (Auto) Mcdonald % (Auto) Eos % (Auto) Baso % (Auto) Lymph # (Auto) Mcdonald # (Auto) Eos # (Auto) Baso # (Auto) Abs Immat Gran (auto) Absolute Neuts (auto) Absolute Nucleated RBC Nucleated RBC % (auto) Smear Tech's Comments Hold Purple Top VBG pH VBG pCO2 VBG pO2 VBG HCO3 VBG O2 Saturation VBG Base Excess Sodium Potassium Chloride Carbon Dioxide Anion Gap BUN Creatinine Estim Creat Clear Calc Estimated GFR POC Glucose 155 H 143 H 138 H Random Glucose Estimat Average Glucose Hemoglobin A1c % Osmolality Lactic Acid Calcium Magnesium Iron TIBC % Saturation Unsat Iron Binding Total Bilirubin AST ALT Alkaline Phosphatase Total Protein Albumin Triglycerides Cholesterol LDL Cholesterol, Calc HDL Cholesterol Lipase TSH Free T4 Urine Color Urine Appearance Urine pH Ur Specific Butler Urine Protein Urine Glucose (UA) Urine Ketones Urine Blood Urine Nitrite Ur Leukocyte Esterase Urine RBC Urine WBC Ur Squamous Epith Cells Urine Bacteria Hyaline Casts Urine Osmolality Ur Random Sodium Urine Opiates Screen Ur Buprenorphine Scrn Ur Oxycodone Screen Urine Methadone Screen Urine Fentanyl Screen Ur Barbiturates Screen Carbamazepine Ur Phencyclidine Scrn Ur Amphetamines Screen U Benzodiazepines Scrn Urine Cocaine Screen U Marijuana (THC) Screen COVID-19 (TRESA) COVID-19 Clin Com Influenza Type A (AMANDA) Influenza Type B (AMANDA) Influenza A & B Note TB Test (T-Spot) Com TB Test Nil Control TB Test Panel A TB Test Panel B TB Test Positive [facility] 11/16/24 11/16/24 11/16/24 06:35 11:24 13:55 WBC RBC Hgb Hct MCV MCH MCHC RDW Plt Count MPV Immature Gran % (Auto) Neut % (Auto) Lymph % (Auto) Mcdonald % (Auto) Eos % (Auto) Baso % (Auto) Lymph # (Auto) Mcdonald # (Auto) Eos # (Auto) Baso # (Auto) Abs Immat Gran (auto) Absolute Neuts (auto) Absolute Nucleated RBC Nucleated RBC % (auto) Smear Tech's Comments Hold Purple Top VBG pH VBG pCO2 VBG pO2 VBG HCO3 VBG O2 Saturation VBG Base Excess Sodium 134 L Potassium 4.7 Chloride 99 Carbon Dioxide 25 Anion Gap 15 BUN 21 H Creatinine 0.87 Estim Creat Clear Calc 38.7 Estimated GFR > 60 POC Glucose 192 H 152 H Random Glucose 58 L* Estimat Average Glucose Hemoglobin A1c % Osmolality Lactic Acid Calcium 9.6 Magnesium Iron TIBC % Saturation Unsat Iron Binding Total Bilirubin AST ALT Alkaline Phosphatase Total Protein Albumin Triglycerides Cholesterol LDL Cholesterol, Calc HDL Cholesterol Lipase TSH Free T4 Urine Color Urine Appearance Urine pH Ur Specific Butler Urine Protein Urine Glucose (UA) Urine Ketones Urine Blood Urine Nitrite Ur Leukocyte Esterase Urine RBC Urine WBC Ur Squamous Epith Cells Urine Bacteria Hyaline Casts Urine Osmolality Ur Random Sodium Urine Opiates Screen Ur Buprenorphine Scrn Ur Oxycodone Screen Urine Methadone Screen Urine Fentanyl Screen Ur Barbiturates Screen Carbamazepine Ur Phencyclidine Scrn Ur Amphetamines Screen U Benzodiazepines Scrn Urine Cocaine Screen U Marijuana (THC) Screen COVID-19 (TRESA) COVID-19 Clin Com Influenza Type A (AMANDA) Influenza Type B (AMANDA) Influenza A & B Note TB Test (T-Spot) Com TB Test Nil Control TB Test Panel A TB Test Panel B TB Test Positive [facility] 11/16/24 11/16/24 11/16/24 14:34 16:22 20:02 WBC RBC Hgb Hct MCV MCH MCHC RDW Plt Count MPV Immature Gran % (Auto) Neut % (Auto) Lymph % (Auto) Mcdonald % (Auto) Eos % (Auto) Baso % (Auto) Lymph # (Auto) Mcdonald # (Auto) Eos # (Auto) Baso # (Auto) Abs Immat Gran (auto) Absolute Neuts (auto) Absolute Nucleated RBC Nucleated RBC % (auto) Smear Tech's Comments Hold Purple Top VBG pH VBG pCO2 VBG pO2 VBG HCO3 VBG O2 Saturation VBG Base Excess Sodium Potassium Chloride Carbon Dioxide Anion Gap BUN Creatinine Estim Creat Clear Calc Estimated GFR POC Glucose 69 126 H 141 H Random Glucose Estimat Average Glucose Hemoglobin A1c % Osmolality Lactic Acid Calcium Magnesium Iron TIBC % Saturation Unsat Iron Binding Total Bilirubin AST ALT Alkaline Phosphatase Total Protein Albumin Triglycerides Cholesterol LDL Cholesterol, Calc HDL Cholesterol Lipase TSH Free T4 Urine Color Urine Appearance Urine pH Ur Specific Butler Urine Protein Urine Glucose (UA) Urine Ketones Urine Blood Urine Nitrite Ur Leukocyte Esterase Urine RBC Urine WBC Ur Squamous Epith Cells Urine Bacteria Hyaline Casts Urine Osmolality Ur Random Sodium Urine Opiates Screen Ur Buprenorphine Scrn Ur Oxycodone Screen Urine Methadone Screen Urine Fentanyl Screen Ur Barbiturates Screen Carbamazepine Ur Phencyclidine Scrn Ur Amphetamines Screen U Benzodiazepines Scrn Urine Cocaine Screen U Marijuana (THC) Screen COVID-19 (TRESA) COVID-19 Clin Com Influenza Type A (AMANDA) Influenza Type B (AMANDA) Influenza A & B Note TB Test (T-Spot) Com TB Test Nil Control TB Test Panel A TB Test Panel B TB Test Positive [facility] 11/17/24 11/17/24 11/17/24 06:32 11:12 14:40 WBC RBC Hgb Hct MCV MCH MCHC RDW Plt Count MPV Immature Gran % (Auto) Neut % (Auto) Lymph % (Auto) Mcdonald % (Auto) Eos % (Auto) Baso % (Auto) Lymph # (Auto) Mcdonald # (Auto) Eos # (Auto) Baso # (Auto) Abs Immat Gran (auto) Absolute Neuts (auto) Absolute Nucleated RBC Nucleated RBC % (auto) Smear Tech's Comments Hold Purple Top VBG pH VBG pCO2 VBG pO2 VBG HCO3 VBG O2 Saturation VBG Base Excess Sodium Potassium Chloride Carbon Dioxide Anion Gap BUN Creatinine Estim Creat Clear Calc Estimated GFR POC Glucose 177 H 184 H 149 H Random Glucose Estimat Average Glucose Hemoglobin A1c % Osmolality Lactic Acid Calcium Magnesium Iron TIBC % Saturation Unsat Iron Binding Total Bilirubin AST ALT Alkaline Phosphatase Total Protein Albumin Triglycerides Cholesterol LDL Cholesterol, Calc HDL Cholesterol Lipase TSH Free T4 Urine Color Urine Appearance Urine pH Ur Specific Butler Urine Protein Urine Glucose (UA) Urine Ketones Urine Blood Urine Nitrite Ur Leukocyte Esterase Urine RBC Urine WBC Ur Squamous Epith Cells Urine Bacteria Hyaline Casts Urine Osmolality Ur Random Sodium Urine Opiates Screen Ur Buprenorphine Scrn Ur Oxycodone Screen Urine Methadone Screen Urine Fentanyl Screen Ur Barbiturates Screen Carbamazepine Ur Phencyclidine Scrn Ur Amphetamines Screen U Benzodiazepines Scrn Urine Cocaine Screen U Marijuana (THC) Screen COVID-19 (TRESA) COVID-19 Clin Com Influenza Type A (AMANDA) Influenza Type B (AMADNA) Influenza A & B Note TB Test (T-Spot) Com TB Test Nil Control TB Test Panel A TB Test Panel B TB Test Positive Cnt 11/17/24 11/18/24 11/18/24 16:18 06:08 11:15 WBC RBC Hgb Hct MCV MCH MCHC RDW Plt Count MPV Immature Gran % (Auto) Neut % (Auto) Lymph % (Auto) Mcdonald % (Auto) Eos % (Auto) Baso % (Auto) Lymph # (Auto) Mcdonald # (Auto) Eos # (Auto) Baso # (Auto) Abs Immat Gran (auto) Absolute Neuts (auto) Absolute Nucleated RBC Nucleated RBC % (auto) Smear Tech's Comments Hold Purple Top VBG pH VBG pCO2 VBG pO2 VBG HCO3 VBG O2 Saturation VBG Base Excess Sodium Potassium Chloride Carbon Dioxide Anion Gap BUN Creatinine Estim Creat Clear Calc Estimated GFR POC Glucose 119 H 192 H 127 H Random Glucose Estimat Average Glucose Hemoglobin A1c % Osmolality Lactic Acid Calcium Magnesium Iron TIBC % Saturation Unsat Iron Binding Total Bilirubin AST ALT Alkaline Phosphatase Total Protein Albumin Triglycerides Cholesterol LDL Cholesterol, Calc HDL Cholesterol Lipase TSH Free T4 Urine Color Urine Appearance Urine pH Ur Specific Butler Urine Protein Urine Glucose (UA) Urine Ketones Urine Blood Urine Nitrite Ur Leukocyte Esterase Urine RBC Urine WBC Ur Squamous Epith Cells Urine Bacteria Hyaline Casts Urine Osmolality Ur Random Sodium Urine Opiates Screen Ur Buprenorphine Scrn Ur Oxycodone Screen Urine Methadone Screen Urine Fentanyl Screen Ur Barbiturates Screen Carbamazepine Ur Phencyclidine Scrn Ur Amphetamines Screen U Benzodiazepines Scrn Urine Cocaine Screen U Marijuana (THC) Screen COVID-19 ([facility]) COVID-19 Clin Com Influenza Type A (AMANDA) Influenza Type B (AMANDA) Influenza A & B Note TB Test (T-Spot) Com TB Test Nil Control TB Test Panel A TB Test Panel B TB Test Positive [facility] 11/18/24 11/18/24 11/18/24 13:33 16:18 21:19 WBC RBC Hgb Hct MCV MCH MCHC RDW Plt Count MPV Immature Gran % (Auto) Neut % (Auto) Lymph % (Auto) Mcdonald % (Auto) Eos % (Auto) Baso % (Auto) Lymph # (Auto) Mcdonald # (Auto) Eos # (Auto) Baso # (Auto) Abs Immat Gran (auto) Absolute Neuts (auto) Absolute Nucleated RBC Nucleated RBC % (auto) Smear Tech's Comments Hold Purple Top VBG pH VBG pCO2 VBG pO2 VBG HCO3 VBG O2 Saturation VBG Base Excess Sodium 137 Potassium 4.9 Chloride 105 Carbon Dioxide 25 Anion Gap 12 BUN 27 H Creatinine 1.03 Estim Creat Clear Calc 32.6 Estimated GFR 52 POC Glucose 110 154 H Random Glucose 81 Estimat Average Glucose Hemoglobin A1c % Osmolality Lactic Acid Calcium 9.1 Magnesium Iron TIBC % Saturation Unsat Iron Binding Total Bilirubin 0.3 AST 18 ALT 26 Alkaline Phosphatase 67 Total Protein 7.1 Albumin 4.4 Triglycerides Cholesterol LDL Cholesterol, Calc HDL Cholesterol Lipase TSH Free T4 Urine Color Urine Appearance Urine pH Ur Specific Butler Urine Protein Urine Glucose (UA) Urine Ketones Urine Blood Urine Nitrite Ur Leukocyte Esterase Urine RBC Urine WBC Ur Squamous Epith Cells Urine Bacteria Hyaline Casts Urine Osmolality Ur Random Sodium Urine Opiates Screen Ur Buprenorphine Scrn Ur Oxycodone Screen Urine Methadone Screen Urine Fentanyl Screen Ur Barbiturates Screen Carbamazepine Ur Phencyclidine Scrn Ur Amphetamines Screen U Benzodiazepines Scrn Urine Cocaine Screen U Marijuana (THC) Screen COVID-19 ([facility]) COVID-19 Clin Com Influenza Type A (AMANDA) Influenza Type B (AMANDA) Influenza A & B Note TB Test (T-Spot) Com TB Test Nil Control TB Test Panel A TB Test Panel B TB Test Positive Cntr 11/19/24 11/19/24 11/19/24 06:30 11:23 15:59 WBC RBC Hgb Hct MCV MCH MCHC RDW Plt Count MPV Immature Gran % (Auto) Neut % (Auto) Lymph % (Auto) Mcdonald % (Auto) Eos % (Auto) Baso % (Auto) Lymph # (Auto) Mcdonald # (Auto) Eos # (Auto) Baso # (Auto) Abs Immat Gran (auto) Absolute Neuts (auto) Absolute Nucleated RBC Nucleated RBC % (auto) Smear Tech's Comments Hold Purple Top VBG pH VBG pCO2 VBG pO2 VBG HCO3 VBG O2 Saturation VBG Base Excess Sodium Potassium Chloride Carbon Dioxide Anion Gap BUN Creatinine Estim Creat Clear Calc Estimated GFR POC Glucose 178 H 157 H 110 Random Glucose Estimat Average Glucose Hemoglobin A1c % Osmolality Lactic Acid Calcium Magnesium Iron TIBC % Saturation Unsat Iron Binding Total Bilirubin AST ALT Alkaline Phosphatase Total Protein Albumin Triglycerides Cholesterol LDL Cholesterol, Calc HDL Cholesterol Lipase TSH Free T4 Urine Color Urine Appearance Urine pH Ur Specific Butler Urine Protein Urine Glucose (UA) Urine Ketones Urine Blood Urine Nitrite Ur Leukocyte Esterase Urine RBC Urine WBC Ur Squamous Epith Cells Urine Bacteria Hyaline Casts Urine Osmolality Ur Random Sodium Urine Opiates Screen Ur Buprenorphine Scrn Ur Oxycodone Screen Urine Methadone Screen Urine Fentanyl Screen Ur Barbiturates Screen Carbamazepine Ur Phencyclidine Scrn Ur Amphetamines Screen U Benzodiazepines Scrn Urine Cocaine Screen U Marijuana (THC) Screen COVID-19 ([facility]) COVID-19 Clin Com Influenza Type A (AMANDA) Influenza Type B (AMANDA) Influenza A & B Note TB Test (T-Spot) Com TB Test Nil Control TB Test Panel A TB Test Panel B TB Test Positive [facility] 11/19/24 11/20/24 11/20/24 19:50 06:36 11:02 WBC RBC Hgb Hct MCV MCH MCHC RDW Plt Count MPV Immature Gran % (Auto) Neut % (Auto) Lymph % (Auto) Mcdonald % (Auto) Eos % (Auto) Baso % (Auto) Lymph # (Auto) Mcdonald # (Auto) Eos # (Auto) Baso # (Auto) Abs Immat Gran (auto) Absolute Neuts (auto) Absolute Nucleated RBC Nucleated RBC % (auto) Smear Tech's Comments Hold Purple Top VBG pH VBG pCO2 VBG pO2 VBG HCO3 VBG O2 Saturation VBG Base Excess Sodium 137 Potassium 4.7 Chloride 102 Carbon Dioxide 27 Anion Gap 13 BUN 23 H Creatinine 0.99 Estim Creat Clear Calc 34.0 Estimated GFR 55 POC Glucose 205 H 165 H Random Glucose 129 H Estimat Average Glucose 154 Hemoglobin A1c % 7.0 H Osmolality Lactic Acid Calcium 9.5 Magnesium Iron TIBC % Saturation Unsat Iron Binding Total Bilirubin AST ALT Alkaline Phosphatase Total Protein Albumin Triglycerides Cholesterol LDL Cholesterol, Calc HDL Cholesterol Lipase TSH Free T4 Urine Color Urine Appearance Urine pH Ur Specific Butler Urine Protein Urine Glucose (UA) Urine Ketones Urine Blood Urine Nitrite Ur Leukocyte Esterase Urine RBC Urine WBC Ur Squamous Epith Cells Urine Bacteria Hyaline Casts Urine Osmolality Ur Random Sodium Urine Opiates Screen Ur Buprenorphine Scrn Ur Oxycodone Screen Urine Methadone Screen Urine Fentanyl Screen Ur Barbiturates Screen Carbamazepine Ur Phencyclidine Scrn Ur Amphetamines Screen U Benzodiazepines Scrn Urine Cocaine Screen U Marijuana (THC) Screen COVID-19 ([facility]) COVID-19 Clin Com Influenza Type A (AMANDA) Influenza Type B (AMANDA) Influenza A & B Note TB Test (T-Spot) Com TB Test Nil Control TB Test Panel A TB Test Panel B TB Test Positive [facility] 11/20/24 11/20/24 11/20/24 11:33 16:23 20:46 WBC RBC Hgb Hct MCV MCH MCHC RDW Plt Count MPV Immature Gran % (Auto) Neut % (Auto) Lymph % (Auto) Mcdonald % (Auto) Eos % (Auto) Baso % (Auto) Lymph # (Auto) Mcdonald # (Auto) Eos # (Auto) Baso # (Auto) Abs Immat Gran (auto) Absolute Neuts (auto) Absolute Nucleated RBC Nucleated RBC % (auto) Smear Tech's Comments Hold Purple Top VBG pH VBG pCO2 VBG pO2 VBG HCO3 VBG O2 Saturation VBG Base Excess Sodium Potassium Chloride Carbon Dioxide Anion Gap BUN Creatinine Estim Creat Clear Calc Estimated GFR POC Glucose 106 202 H 162 H Random Glucose Estimat Average Glucose Hemoglobin A1c % Osmolality Lactic Acid Calcium Magnesium Iron TIBC % Saturation Unsat Iron Binding Total Bilirubin AST ALT Alkaline Phosphatase Total Protein Albumin Triglycerides Cholesterol LDL Cholesterol, Calc HDL Cholesterol Lipase TSH Free T4 Urine Color Urine Appearance Urine pH Ur Specific Butler Urine Protein Urine Glucose (UA) Urine Ketones Urine Blood Urine Nitrite Ur Leukocyte Esterase Urine RBC Urine WBC Ur Squamous Epith Cells Urine Bacteria Hyaline Casts Urine Osmolality Ur Random Sodium Urine Opiates Screen Ur Buprenorphine Scrn Ur Oxycodone Screen Urine Methadone Screen Urine Fentanyl Screen Ur Barbiturates Screen Carbamazepine Ur Phencyclidine Scrn Ur Amphetamines Screen U Benzodiazepines Scrn Urine Cocaine Screen U Marijuana (THC) Screen COVID-19 ([facility]) COVID-19 Clin Com Influenza Type A (AMANDA) Influenza Type B (AMANDA) Influenza A & B Note TB Test (T-Spot) Com TB Test Nil Control TB Test Panel A TB Test Panel B TB Test Positive [facility] 11/21/24 11/21/24 11/21/24 06:31 11:24 16:25 WBC RBC Hgb Hct MCV MCH MCHC RDW Plt Count MPV Immature Gran % (Auto) Neut % (Auto) Lymph % (Auto) Mcdonald % (Auto) Eos % (Auto) Baso % (Auto) Lymph # (Auto) Mcdonald # (Auto) Eos # (Auto) Baso # (Auto) Abs Immat Gran (auto) Absolute Neuts (auto) Absolute Nucleated RBC Nucleated RBC % (auto) Smear Tech's Comments Hold Purple Top VBG pH VBG pCO2 VBG pO2 VBG HCO3 VBG O2 Saturation VBG Base Excess Sodium Potassium Chloride Carbon Dioxide Anion Gap BUN Creatinine Estim Creat Clear Calc Estimated GFR POC Glucose 189 H 196 H 110 Random Glucose Estimat Average Glucose Hemoglobin A1c % Osmolality Lactic Acid Calcium Magnesium Iron TIBC % Saturation Unsat Iron Binding Total Bilirubin AST ALT Alkaline Phosphatase Total Protein Albumin Triglycerides Cholesterol LDL Cholesterol, Calc HDL Cholesterol Lipase TSH Free T4 Urine Color Urine Appearance Urine pH Ur Specific Butler Urine Protein Urine Glucose (UA) Urine Ketones Urine Blood Urine Nitrite Ur Leukocyte Esterase Urine RBC Urine WBC Ur Squamous Epith Cells Urine Bacteria Hyaline Casts Urine Osmolality Ur Random Sodium Urine Opiates Screen Ur Buprenorphine Scrn Ur Oxycodone Screen Urine Methadone Screen Urine Fentanyl Screen Ur Barbiturates Screen Carbamazepine Ur Phencyclidine Scrn Ur Amphetamines Screen U Benzodiazepines Scrn Urine Cocaine Screen U Marijuana (THC) Screen COVID-19 ([facility]) COVID-19 Clin Com Influenza Type A (AMANDA) Influenza Type B (AMANDA) Influenza A & B Note TB Test (T-Spot) Com TB Test Nil Control TB Test Panel A TB Test Panel B TB Test Positive Cntrl 11/21/24 11/22/24 11/22/24 21:16 06:56 11:14 WBC RBC Hgb Hct MCV MCH MCHC RDW Plt Count MPV Immature Gran % (Auto) Neut % (Auto) Lymph % (Auto) Mcdonald % (Auto) Eos % (Auto) Baso % (Auto) Lymph # (Auto) Mcdonald # (Auto) Eos # (Auto) Baso # (Auto) Abs Immat Gran (auto) Absolute Neuts (auto) Absolute Nucleated RBC Nucleated RBC % (auto) Smear Tech's Comments Hold Purple Top VBG pH VBG pCO2 VBG pO2 VBG HCO3 VBG O2 Saturation VBG Base Excess Sodium Potassium Chloride Carbon Dioxide Anion Gap BUN Creatinine Estim Creat Clear Calc Estimated GFR POC Glucose 138 H 195 H 224 H Random Glucose Estimat Average Glucose Hemoglobin A1c % Osmolality Lactic Acid Calcium Magnesium Iron TIBC % Saturation Unsat Iron Binding Total Bilirubin AST ALT Alkaline Phosphatase Total Protein Albumin Triglycerides Cholesterol LDL Cholesterol, Calc HDL Cholesterol Lipase TSH Free T4 Urine Color Urine Appearance Urine pH Ur Specific Butler Urine Protein Urine Glucose (UA) Urine Ketones Urine Blood Urine Nitrite Ur Leukocyte Esterase Urine RBC Urine WBC Ur Squamous Epith Cells Urine Bacteria Hyaline Casts Urine Osmolality Ur Random Sodium Urine Opiates Screen Ur Buprenorphine Scrn Ur Oxycodone Screen Urine Methadone Screen Urine Fentanyl Screen Ur Barbiturates Screen Carbamazepine Ur Phencyclidine Scrn Ur Amphetamines Screen U Benzodiazepines Scrn Urine Cocaine Screen U Marijuana (THC) Screen COVID-19 ([facility]) COVID-19 Clin Com Influenza Type A (AMANDA) Influenza Type B (AMANDA) Influenza A & B Note TB Test (T-Spot) Com TB Test Nil Control TB Test Panel A TB Test Panel B TB Test Positive Cntrl 11/22/24 11/22/24 11/23/24 16:28 21:06 06:14 WBC RBC Hgb Hct MCV MCH MCHC RDW Plt Count MPV Immature Gran % (Auto) Neut % (Auto) Lymph % (Auto) Mcdonald % (Auto) Eos % (Auto) Baso % (Auto) Lymph # (Auto) Mcdonald # (Auto) Eos # (Auto) Baso # (Auto) Abs Immat Gran (auto) Absolute Neuts (auto) Absolute Nucleated RBC Nucleated RBC % (auto) Smear Tech's Comments Hold Purple Top VBG pH VBG pCO2 VBG pO2 VBG HCO3 VBG O2 Saturation VBG Base Excess Sodium Potassium Chloride Carbon Dioxide Anion Gap BUN Creatinine Estim Creat Clear Calc Estimated GFR POC Glucose 129 H 94 191 H Random Glucose Estimat Average Glucose Hemoglobin A1c % Osmolality Lactic Acid Calcium Magnesium Iron TIBC % Saturation Unsat Iron Binding Total Bilirubin AST ALT Alkaline Phosphatase Total Protein Albumin Triglycerides Cholesterol LDL Cholesterol, Calc HDL Cholesterol Lipase TSH Free T4 Urine Color Urine Appearance Urine pH Ur Specific Butler Urine Protein Urine Glucose (UA) Urine Ketones Urine Blood Urine Nitrite Ur Leukocyte Esterase Urine RBC Urine WBC Ur Squamous Epith Cells Urine Bacteria Hyaline Casts Urine Osmolality Ur Random Sodium Urine Opiates Screen Ur Buprenorphine Scrn Ur Oxycodone Screen Urine Methadone Screen Urine Fentanyl Screen Ur Barbiturates Screen Carbamazepine Ur Phencyclidine Scrn Ur Amphetamines Screen U Benzodiazepines Scrn Urine Cocaine Screen U Marijuana (THC) Screen COVID-19 ([facility]) COVID-19 Clin Com Influenza Type A (AMANDA) Influenza Type B (AMANDA) Influenza A & B Note TB Test (T-Spot) Com TB Test Nil Control TB Test Panel A TB Test Panel B TB Test Positive [facility] 11/23/24 11/24/24 11/25/24 11:22 06:16 06:42 WBC RBC Hgb Hct MCV MCH MCHC RDW Plt Count MPV Immature Gran % (Auto) Neut % (Auto) Lymph % (Auto) Mcdonald % (Auto) Eos % (Auto) Baso % (Auto) Lymph # (Auto) Mcdonald # (Auto) Eos # (Auto) Baso # (Auto) Abs Immat Gran (auto) Absolute Neuts (auto) Absolute Nucleated RBC Nucleated RBC % (auto) Smear Tech's Comments Hold Purple Top VBG pH VBG pCO2 VBG pO2 VBG HCO3 VBG O2 Saturation VBG Base Excess Sodium Potassium Chloride Carbon Dioxide Anion Gap BUN Creatinine Estim Creat Clear Calc Estimated GFR POC Glucose 188 H 184 H 167 H Random Glucose Estimat Average Glucose Hemoglobin A1c % Osmolality Lactic Acid Calcium Magnesium Iron TIBC % Saturation Unsat Iron Binding Total Bilirubin AST ALT Alkaline Phosphatase Total Protein Albumin Triglycerides Cholesterol LDL Cholesterol, Calc HDL Cholesterol Lipase TSH Free T4 Urine Color Urine Appearance Urine pH Ur Specific Butler Urine Protein Urine Glucose (UA) Urine Ketones Urine Blood Urine Nitrite Ur Leukocyte Esterase Urine RBC Urine WBC Ur Squamous Epith Cells Urine Bacteria Hyaline Casts Urine Osmolality Ur Random Sodium Urine Opiates Screen Ur Buprenorphine Scrn Ur Oxycodone Screen Urine Methadone Screen Urine Fentanyl Screen Ur Barbiturates Screen Carbamazepine Ur Phencyclidine Scrn Ur Amphetamines Screen U Benzodiazepines Scrn Urine Cocaine Screen U Marijuana (THC) Screen COVID-19 ([facility]) COVID-19 Clin Com Influenza Type A (AMANDA) Influenza Type B (AMANDA) Influenza A & B Note TB Test (T-Spot) Com TB Test Nil Control TB Test Panel A TB Test Panel B TB Test Positive [facility] 11/26/24 11/27/24 11/28/24 06:23 06:32 06:13 WBC RBC Hgb Hct MCV MCH MCHC RDW Plt Count MPV Immature Gran % (Auto) Neut % (Auto) Lymph % (Auto) Mcdonald % (Auto) Eos % (Auto) Baso % (Auto) Lymph # (Auto) Mcdonald # (Auto) Eos # (Auto) Baso # (Auto) Abs Immat Gran (auto) Absolute Neuts (auto) Absolute Nucleated RBC Nucleated RBC % (auto) Smear Tech's Comments Hold Purple Top VBG pH VBG pCO2 VBG pO2 VBG HCO3 VBG O2 Saturation VBG Base Excess Sodium Potassium Chloride Carbon Dioxide Anion Gap BUN Creatinine Estim Creat Clear Calc Estimated GFR POC Glucose 166 H 167 H 159 H Random Glucose Estimat Average Glucose Hemoglobin A1c % Osmolality Lactic Acid Calcium Magnesium Iron TIBC % Saturation Unsat Iron Binding Total Bilirubin AST ALT Alkaline Phosphatase Total Protein Albumin Triglycerides Cholesterol LDL Cholesterol, Calc HDL Cholesterol Lipase TSH Free T4 Urine Color Urine Appearance Urine pH Ur Specific Butler Urine Protein Urine Glucose (UA) Urine Ketones Urine Blood Urine Nitrite Ur Leukocyte Esterase Urine RBC Urine WBC Ur Squamous Epith Cells Urine Bacteria Hyaline Casts Urine Osmolality Ur Random Sodium Urine Opiates Screen Ur Buprenorphine Scrn Ur Oxycodone Screen Urine Methadone Screen Urine Fentanyl Screen Ur Barbiturates Screen Carbamazepine Ur Phencyclidine Scrn Ur Amphetamines Screen U Benzodiazepines Scrn Urine Cocaine Screen U Marijuana (THC) Screen COVID-19 ([facility]) COVID-19 Clin Com Influenza Type A (AMANDA) Influenza Type B (AMANDA) Influenza A & B Note TB Test (T-Spot) Com TB Test Nil Control TB Test Panel A TB Test Panel B TB Test Positive Cntrl 11/29/24 11/30/24 12/01/24 06:16 06:16 06:37 WBC RBC Hgb Hct MCV MCH MCHC RDW Plt Count MPV Immature Gran % (Auto) Neut % (Auto) Lymph % (Auto) Mcdonald % (Auto) Eos % (Auto) Baso % (Auto) Lymph # (Auto) Mcdonald # (Auto) Eos # (Auto) Baso # (Auto) Abs Immat Gran (auto) Absolute Neuts (auto) Absolute Nucleated RBC Nucleated RBC % (auto) Smear Tech's Comments Hold Purple Top VBG pH VBG pCO2 VBG pO2 VBG HCO3 VBG O2 Saturation VBG Base Excess Sodium Potassium Chloride Carbon Dioxide Anion Gap BUN Creatinine Estim Creat Clear Calc Estimated GFR POC Glucose 156 H 136 H 129 H Random Glucose Estimat Average Glucose Hemoglobin A1c % Osmolality Lactic Acid Calcium Magnesium Iron TIBC % Saturation Unsat Iron Binding Total Bilirubin AST ALT Alkaline Phosphatase Total Protein Albumin Triglycerides Cholesterol LDL Cholesterol, Calc HDL Cholesterol Lipase TSH Free T4 Urine Color Urine Appearance Urine pH Ur Specific Butler Urine Protein Urine Glucose (UA) Urine Ketones Urine Blood Urine Nitrite Ur Leukocyte Esterase Urine RBC Urine WBC Ur Squamous Epith Cells Urine Bacteria Hyaline Casts Urine Osmolality Ur Random Sodium Urine Opiates Screen Ur Buprenorphine Scrn Ur Oxycodone Screen Urine Methadone Screen Urine Fentanyl Screen Ur Barbiturates Screen Carbamazepine Ur Phencyclidine Scrn Ur Amphetamines Screen U Benzodiazepines Scrn Urine Cocaine Screen U Marijuana (THC) Screen COVID-19 ([facility]) COVID-19 Clin Com Influenza Type A (AMANDA) Influenza Type B (AMANDA) Influenza A & B Note TB Test (T-Spot) Com TB Test Nil Control TB Test Panel A TB Test Panel B TB Test Positive Cntr 12/02/24 12/03/24 12/03/24 06:24 06:17 16:25 WBC RBC Hgb Hct MCV MCH MCHC RDW Plt Count MPV Immature Gran % (Auto) Neut % (Auto) Lymph % (Auto) Mcdonald % (Auto) Eos % (Auto) Baso % (Auto) Lymph # (Auto) Mcdonald # (Auto) Eos # (Auto) Baso # (Auto) Abs Immat Gran (auto) Absolute Neuts (auto) Absolute Nucleated RBC Nucleated RBC % (auto) Smear Tech's Comments Hold Purple Top VBG pH VBG pCO2 VBG pO2 VBG HCO3 VBG O2 Saturation VBG Base Excess Sodium Potassium Chloride Carbon Dioxide Anion Gap BUN Creatinine Estim Creat Clear Calc Estimated GFR POC Glucose 163 H 182 H 120 H Random Glucose Estimat Average Glucose Hemoglobin A1c % Osmolality Lactic Acid Calcium Magnesium Iron TIBC % Saturation Unsat Iron Binding Total Bilirubin AST ALT Alkaline Phosphatase Total Protein Albumin Triglycerides Cholesterol LDL Cholesterol, Calc HDL Cholesterol Lipase TSH Free T4 Urine Color Urine Appearance Urine pH Ur Specific Butler Urine Protein Urine Glucose (UA) Urine Ketones Urine Blood Urine Nitrite Ur Leukocyte Esterase Urine RBC Urine WBC Ur Squamous Epith Cells Urine Bacteria Hyaline Casts Urine Osmolality Ur Random Sodium Urine Opiates Screen Ur Buprenorphine Scrn Ur Oxycodone Screen Urine Methadone Screen Urine Fentanyl Screen Ur Barbiturates Screen Carbamazepine Ur Phencyclidine Scrn Ur Amphetamines Screen U Benzodiazepines Scrn Urine Cocaine Screen U Marijuana (THC) Screen COVID-19 ([facility]) COVID-19 Clin Com Influenza Type A (AMANDA) Influenza Type B (AMANDA) Influenza A & B Note TB Test (T-Spot) Com TB Test Nil Control TB Test Panel A TB Test Panel B TB Test Positive Cnt 12/04/24 12/05/24 12/06/24 05:52 06:00 05:54 WBC RBC Hgb Hct MCV MCH MCHC RDW Plt Count MPV Immature Gran % (Auto) Neut % (Auto) Lymph % (Auto) Mcdonald % (Auto) Eos % (Auto) Baso % (Auto) Lymph # (Auto) Mcdonald # (Auto) Eos # (Auto) Baso # (Auto) Abs Immat Gran (auto) Absolute Neuts (auto) Absolute Nucleated RBC Nucleated RBC % (auto) Smear Tech's Comments Hold Purple Top VBG pH VBG pCO2 VBG pO2 VBG HCO3 VBG O2 Saturation VBG Base Excess Sodium Potassium Chloride Carbon Dioxide Anion Gap BUN Creatinine Estim Creat Clear Calc Estimated GFR POC Glucose 161 H 185 H 206 H Random Glucose Estimat Average Glucose Hemoglobin A1c % Osmolality Lactic Acid Calcium Magnesium Iron TIBC % Saturation Unsat Iron Binding Total Bilirubin AST ALT Alkaline Phosphatase Total Protein Albumin Triglycerides Cholesterol LDL Cholesterol, Calc HDL Cholesterol Lipase TSH Free T4 Urine Color Urine Appearance Urine pH Ur Specific Butler Urine Protein Urine Glucose (UA) Urine Ketones Urine Blood Urine Nitrite Ur Leukocyte Esterase Urine RBC Urine WBC Ur Squamous Epith Cells Urine Bacteria Hyaline Casts Urine Osmolality Ur Random Sodium Urine Opiates Screen Ur Buprenorphine Scrn Ur Oxycodone Screen Urine Methadone Screen Urine Fentanyl Screen Ur Barbiturates Screen Carbamazepine Ur Phencyclidine Scrn Ur Amphetamines Screen U Benzodiazepines Scrn Urine Cocaine Screen U Marijuana (THC) Screen COVID-19 ([facility]) COVID-19 Clin Com Influenza Type A (AMANDA) Influenza Type B (AMANDA) Influenza A & B Note TB Test (T-Spot) Com TB Test Nil Control TB Test Panel A TB Test Panel B TB Test Positive Cntrl 12/07/24 12/08/24 12/09/24 06:19 06:31 06:26 WBC RBC Hgb Hct MCV MCH MCHC RDW Plt Count MPV Immature Gran % (Auto) Neut % (Auto) Lymph % (Auto) Mcdonald % (Auto) Eos % (Auto) Baso % (Auto) Lymph # (Auto) Mcdonald # (Auto) Eos # (Auto) Baso # (Auto) Abs Immat Gran (auto) Absolute Neuts (auto) Absolute Nucleated RBC Nucleated RBC % (auto) Smear Tech's Comments Hold Purple Top VBG pH VBG pCO2 VBG pO2 VBG HCO3 VBG O2 Saturation VBG Base Excess Sodium Potassium Chloride Carbon Dioxide Anion Gap BUN Creatinine Estim Creat Clear Calc Estimated GFR POC Glucose 194 H 163 H 165 H Random Glucose Estimat Average Glucose Hemoglobin A1c % Osmolality Lactic Acid Calcium Magnesium Iron TIBC % Saturation Unsat Iron Binding Total Bilirubin AST ALT Alkaline Phosphatase Total Protein Albumin Triglycerides Cholesterol LDL Cholesterol, Calc HDL Cholesterol Lipase TSH Free T4 Urine Color Urine Appearance Urine pH Ur Specific Butler Urine Protein Urine Glucose (UA) Urine Ketones Urine Blood Urine Nitrite Ur Leukocyte Esterase Urine RBC Urine WBC Ur Squamous Epith Cells Urine Bacteria Hyaline Casts Urine Osmolality Ur Random Sodium Urine Opiates Screen Ur Buprenorphine Scrn Ur Oxycodone Screen Urine Methadone Screen Urine Fentanyl Screen Ur Barbiturates Screen Carbamazepine Ur Phencyclidine Scrn Ur Amphetamines Screen U Benzodiazepines Scrn Urine Cocaine Screen U Marijuana (THC) Screen COVID-19 ([facility]ESA) COVID-19 Clin Com Influenza Type A (AMANDA) Influenza Type B (AMANDA) Influenza A & B Note TB Test (T-Spot) Com TB Test Nil Control TB Test Panel A TB Test Panel B TB Test Positive Cntrl 12/09/24 12/10/24 12/11/24 12:31 06:09 06:15 WBC RBC Hgb Hct MCV MCH MCHC RDW Plt Count MPV Immature Gran % (Auto) Neut % (Auto) Lymph % (Auto) Mcdonald % (Auto) Eos % (Auto) Baso % (Auto) Lymph # (Auto) Mcdonald # (Auto) Eos # (Auto) Baso # (Auto) Abs Immat Gran (auto) Absolute Neuts (auto) Absolute Nucleated RBC Nucleated RBC % (auto) Smear Tech's Comments Hold Purple Top VBG pH VBG pCO2 VBG pO2 VBG HCO3 VBG O2 Saturation VBG Base Excess Sodium Potassium Chloride Carbon Dioxide Anion Gap BUN Creatinine Estim Creat Clear Calc Estimated GFR POC Glucose 167 H 159 H Random Glucose Estimat Average Glucose Hemoglobin A1c % Osmolality Lactic Acid Calcium Magnesium Iron TIBC % Saturation Unsat Iron Binding Total Bilirubin AST ALT Alkaline Phosphatase Total Protein Albumin Triglycerides Cholesterol LDL Cholesterol, Calc HDL Cholesterol Lipase TSH Free T4 Urine Color Urine Appearance Urine pH Ur Specific Butler Urine Protein Urine Glucose (UA) Urine Ketones Urine Blood Urine Nitrite Ur Leukocyte Esterase Urine RBC Urine WBC Ur Squamous Epith Cells Urine Bacteria Hyaline Casts Urine Osmolality Ur Random Sodium Urine Opiates Screen Ur Buprenorphine Scrn Ur Oxycodone Screen Urine Methadone Screen Urine Fentanyl Screen Ur Barbiturates Screen Carbamazepine Ur Phencyclidine Scrn Ur Amphetamines Screen U Benzodiazepines Scrn Urine Cocaine Screen U Marijuana (THC) Screen COVID-19 (TRESA) COVID-19 Clin Com Influenza Type A (AMANDA) Influenza Type B (AMANDA) Influenza A & B Note TB Test (T-Spot) Com Negative TB Test Nil Control Passed TB Test Panel A 1 TB Test Panel B 0 TB Test Positive Cntrl Passed 12/12/24 12/13/24 12/13/24 06:24 06:14 12:13 WBC RBC Hgb Hct MCV MCH MCHC RDW Plt Count MPV Immature Gran % (Auto) Neut % (Auto) Lymph % (Auto) Mcdonald % (Auto) Eos % (Auto) Baso % (Auto) Lymph # (Auto) Mcdonald # (Auto) Eos # (Auto) Baso # (Auto) Abs Immat Gran (auto) Absolute Neuts (auto) Absolute Nucleated RBC Nucleated RBC % (auto) Smear Tech's Comments Hold Purple Top VBG pH VBG pCO2 VBG pO2 VBG HCO3 VBG O2 Saturation VBG Base Excess Sodium 135 Potassium 4.4 Chloride 103 Carbon Dioxide 20 L Anion Gap 16 BUN 32 H Creatinine 1.39 Estim Creat Clear Calc 24.1 Estimated GFR 37 POC Glucose 148 H 151 H Random Glucose 351 H* Estimat Average Glucose Hemoglobin A1c % Osmolality Lactic Acid Calcium 9.3 Magnesium Iron TIBC % Saturation Unsat Iron Binding Total Bilirubin AST ALT Alkaline Phosphatase Total Protein Albumin Triglycerides Cholesterol LDL Cholesterol, Calc HDL Cholesterol Lipase TSH Free T4 Urine Color Urine Appearance Urine pH Ur Specific Butler Urine Protein Urine Glucose (UA) Urine Ketones Urine Blood Urine Nitrite Ur Leukocyte Esterase Urine RBC Urine WBC Ur Squamous Epith Cells Urine Bacteria Hyaline Casts Urine Osmolality Ur Random Sodium Urine Opiates Screen Ur Buprenorphine Scrn Ur Oxycodone Screen Urine Methadone Screen Urine Fentanyl Screen Ur Barbiturates Screen Carbamazepine Ur Phencyclidine Scrn Ur Amphetamines Screen U Benzodiazepines Scrn Urine Cocaine Screen U Marijuana (THC) Screen COVID-19 ([facility]) COVID-19 Clin Com Influenza Type A (AMANDA) Influenza Type B (AMANDA) Influenza A & B Note TB Test (T-Spot) Com TB Test Nil Control TB Test Panel A TB Test Panel B TB Test Positive Cntrl 12/14/24 12/15/24 12/15/24 06:21 06:11 21:16 WBC RBC Hgb Hct MCV MCH MCHC RDW Plt Count MPV Immature Gran % (Auto) Neut % (Auto) Lymph % (Auto) Mcdonald % (Auto) Eos % (Auto) Baso % (Auto) Lymph # (Auto) Mcdonald # (Auto) Eos # (Auto) Baso # (Auto) Abs Immat Gran (auto) Absolute Neuts (auto) Absolute Nucleated RBC Nucleated RBC % (auto) Smear Tech's Comments Hold Purple Top VBG pH VBG pCO2 VBG pO2 VBG HCO3 VBG O2 Saturation VBG Base Excess Sodium Potassium Chloride Carbon Dioxide Anion Gap BUN Creatinine Estim Creat Clear Calc Estimated GFR POC Glucose 150 H 158 H 106 Random Glucose Estimat Average Glucose Hemoglobin A1c % Osmolality Lactic Acid Calcium Magnesium Iron TIBC % Saturation Unsat Iron Binding Total Bilirubin AST ALT Alkaline Phosphatase Total Protein Albumin Triglycerides Cholesterol LDL Cholesterol, Calc HDL Cholesterol Lipase TSH Free T4 Urine Color Urine Appearance Urine pH Ur Specific Butler Urine Protein Urine Glucose (UA) Urine Ketones Urine Blood Urine Nitrite Ur Leukocyte Esterase Urine RBC Urine WBC Ur Squamous Epith Cells Urine Bacteria Hyaline Casts Urine Osmolality Ur Random Sodium Urine Opiates Screen Ur Buprenorphine Scrn Ur Oxycodone Screen Urine Methadone Screen Urine Fentanyl Screen Ur Barbiturates Screen Carbamazepine Ur Phencyclidine Scrn Ur Amphetamines Screen U Benzodiazepines Scrn Urine Cocaine Screen U Marijuana (THC) Screen COVID-19 ([facility]) COVID-19 Clin Com Influenza Type A (AMANDA) Influenza Type B (AMANDA) Influenza A & B Note TB Test (T-Spot) Com TB Test Nil Control TB Test Panel A TB Test Panel B TB Test Positive Cntrl 12/16/24 12/16/24 12/16/24 06:45 12:26 15:35 WBC RBC Hgb Hct MCV MCH MCHC RDW Plt Count MPV Immature Gran % (Auto) Neut % (Auto) Lymph % (Auto) Mcdonald % (Auto) Eos % (Auto) Baso % (Auto) Lymph # (Auto) Mcdonald # (Auto) Eos # (Auto) Baso # (Auto) Abs Immat Gran (auto) Absolute Neuts (auto) Absolute Nucleated RBC Nucleated RBC % (auto) Smear Tech's Comments Hold Purple Top VBG pH VBG pCO2 VBG pO2 VBG HCO3 VBG O2 Saturation VBG Base Excess Sodium Potassium Chloride Carbon Dioxide Anion Gap BUN Creatinine Estim Creat Clear Calc Estimated GFR POC Glucose 194 H Random Glucose Estimat Average Glucose Hemoglobin A1c % Osmolality Lactic Acid Calcium Magnesium Iron TIBC % Saturation Unsat Iron Binding Total Bilirubin AST ALT Alkaline Phosphatase Total Protein Albumin Triglycerides Cholesterol LDL Cholesterol, Calc HDL Cholesterol Lipase TSH Free T4 Urine Color Urine Appearance Urine pH Ur Specific Butler Urine Protein Urine Glucose (UA) Urine Ketones Urine Blood Urine Nitrite Ur Leukocyte Esterase Urine RBC Urine WBC Ur Squamous Epith Cells Urine Bacteria Hyaline Casts Urine Osmolality Ur Random Sodium Urine Opiates Screen Ur Buprenorphine Scrn Ur Oxycodone Screen Urine Methadone Screen Urine Fentanyl Screen Ur Barbiturates Screen Carbamazepine Ur Phencyclidine Scrn Ur Amphetamines Screen U Benzodiazepines Scrn Urine Cocaine Screen U Marijuana (THC) Screen COVID-19 ([facility]) Negative COVID-19 Clin Com See Note Influenza Type A (AMANDA) Negative Influenza Type B (AMANDA) Negative Influenza A & B Note See Note TB Test (T-Spot) Com TB Test Nil Control TB Test Panel A TB Test Panel B TB Test Positive Cntrl 12/16/24 12/17/24 12/19/24 20:01 19:13 10:21 WBC RBC Hgb Hct MCV MCH MCHC RDW Plt Count MPV Immature Gran % (Auto) Neut % (Auto) Lymph % (Auto) Mcdonald % (Auto) Eos % (Auto) Baso % (Auto) Lymph # (Auto) Mcdonald # (Auto) Eos # (Auto) Baso # (Auto) Abs Immat Gran (auto) Absolute Neuts (auto) Absolute Nucleated RBC Nucleated RBC % (auto) Smear Tech's Comments Hold Purple Top VBG pH VBG pCO2 VBG pO2 VBG HCO3 VBG O2 Saturation VBG Base Excess Sodium Potassium Chloride Carbon Dioxide Anion Gap BUN Creatinine Estim Creat Clear Calc Estimated GFR POC Glucose 213 H 265 H 408 H* Random Glucose Estimat Average Glucose Hemoglobin A1c % Osmolality Lactic Acid Calcium Magnesium Iron TIBC % Saturation Unsat Iron Binding Total Bilirubin AST ALT Alkaline Phosphatase Total Protein Albumin Triglycerides Cholesterol LDL Cholesterol, Calc HDL Cholesterol Lipase TSH Free T4 Urine Color Urine Appearance Urine pH Ur Specific Butler Urine Protein Urine Glucose (UA) Urine Ketones Urine Blood Urine Nitrite Ur Leukocyte Esterase Urine RBC Urine WBC Ur Squamous Epith Cells Urine Bacteria Hyaline Casts Urine Osmolality Ur Random Sodium Urine Opiates Screen Ur Buprenorphine Scrn Ur Oxycodone Screen Urine Methadone Screen Urine Fentanyl Screen Ur Barbiturates Screen Carbamazepine Ur Phencyclidine Scrn Ur Amphetamines Screen U Benzodiazepines Scrn Urine Cocaine Screen U Marijuana (THC) Screen COVID-19 ([facility]) COVID-19 Clin Com Influenza Type A (AMANDA) Influenza Type B (AMANDA) Influenza A & B Note TB Test (T-Spot) Com TB Test Nil Control TB Test Panel A TB Test Panel B TB Test Positive Cntr 12/19/24 12/19/24 12/20/24 16:02 20:57 06:20 WBC RBC Hgb Hct MCV MCH MCHC RDW Plt Count MPV Immature Gran % (Auto) Neut % (Auto) Lymph % (Auto) Mcdonald % (Auto) Eos % (Auto) Baso % (Auto) Lymph # (Auto) Mcdonald # (Auto) Eos # (Auto) Baso # (Auto) Abs Immat Gran (auto) Absolute Neuts (auto) Absolute Nucleated RBC Nucleated RBC % (auto) Smear Tech's Comments Hold Purple Top VBG pH VBG pCO2 VBG pO2 VBG HCO3 VBG O2 Saturation VBG Base Excess Sodium Potassium Chloride Carbon Dioxide Anion Gap BUN Creatinine Estim Creat Clear Calc Estimated GFR POC Glucose 115 101 181 H Random Glucose Estimat Average Glucose Hemoglobin A1c % Osmolality Lactic Acid Calcium Magnesium Iron TIBC % Saturation Unsat Iron Binding Total Bilirubin AST ALT Alkaline Phosphatase Total Protein Albumin Triglycerides Cholesterol LDL Cholesterol, Calc HDL Cholesterol Lipase TSH Free T4 Urine Color Urine Appearance Urine pH Ur Specific Butler Urine Protein Urine Glucose (UA) Urine Ketones Urine Blood Urine Nitrite Ur Leukocyte Esterase Urine RBC Urine WBC Ur Squamous Epith Cells Urine Bacteria Hyaline Casts Urine Osmolality Ur Random Sodium Urine Opiates Screen Ur Buprenorphine Scrn Ur Oxycodone Screen Urine Methadone Screen Urine Fentanyl Screen Ur Barbiturates Screen Carbamazepine Ur Phencyclidine Scrn Ur Amphetamines Screen U Benzodiazepines Scrn Urine Cocaine Screen U Marijuana (THC) Screen COVID-19 ([facility]) COVID-19 Clin Com Influenza Type A (AMANDA) Influenza Type B (AMANDA) Influenza A & B Note TB Test (T-Spot) Com TB Test Nil Control TB Test Panel A TB Test Panel B TB Test Positive [facility] 12/20/24 12/20/24 12/20/24 08:43 10:41 15:49 WBC RBC Hgb Hct MCV MCH MCHC RDW Plt Count MPV Immature Gran % (Auto) Neut % (Auto) Lymph % (Auto) Mcdonald % (Auto) Eos % (Auto) Baso % (Auto) Lymph # (Auto) Mcdonald # (Auto) Eos # (Auto) Baso # (Auto) Abs Immat Gran (auto) Absolute Neuts (auto) Absolute Nucleated RBC Nucleated RBC % (auto) Smear Tech's Comments Hold Purple Top VBG pH VBG pCO2 VBG pO2 VBG HCO3 VBG O2 Saturation VBG Base Excess Sodium 140 Potassium 5.2 H Chloride 107 Carbon Dioxide 25 Anion Gap 13 BUN 27 H Creatinine 1.08 Estim Creat Clear Calc 28.6 Estimated GFR 49 POC Glucose 223 H 177 H Random Glucose 266 H Estimat Average Glucose Hemoglobin A1c % Osmolality Lactic Acid Calcium 9.0 Magnesium Iron TIBC % Saturation Unsat Iron Binding Total Bilirubin 0.3 AST 66 H ALT 70 H Alkaline Phosphatase 60 Total Protein 6.6 Albumin 3.6 Triglycerides Cholesterol LDL Cholesterol, Calc HDL Cholesterol Lipase TSH Free T4 Urine Color Urine Appearance Urine pH Ur Specific Butler Urine Protein Urine Glucose (UA) Urine Ketones Urine Blood Urine Nitrite Ur Leukocyte Esterase Urine RBC Urine WBC Ur Squamous Epith Cells Urine Bacteria Hyaline Casts Urine Osmolality Ur Random Sodium Urine Opiates Screen Ur Buprenorphine Scrn Ur Oxycodone Screen Urine Methadone Screen Urine Fentanyl Screen Ur Barbiturates Screen Carbamazepine Ur Phencyclidine Scrn Ur Amphetamines Screen U Benzodiazepines Scrn Urine Cocaine Screen U Marijuana (THC) Screen COVID-19 ([facility]) COVID-19 Clin Com Influenza Type A (AMANDA) Influenza Type B (AMANDA) Influenza A & B Note TB Test (T-Spot) Com TB Test Nil Control TB Test Panel A TB Test Panel B TB Test Positive Cntrl 12/21/24 12/21/24 12/21/24 06:20 11:49 16:10 WBC RBC Hgb Hct MCV MCH MCHC RDW Plt Count MPV Immature Gran % (Auto) Neut % (Auto) Lymph % (Auto) Mcdonald % (Auto) Eos % (Auto) Baso % (Auto) Lymph # (Auto) Mcdonald # (Auto) Eos # (Auto) Baso # (Auto) Abs Immat Gran (auto) Absolute Neuts (auto) Absolute Nucleated RBC Nucleated RBC % (auto) Smear Tech's Comments Hold Purple Top VBG pH VBG pCO2 VBG pO2 VBG HCO3 VBG O2 Saturation VBG Base Excess Sodium Potassium Chloride Carbon Dioxide Anion Gap BUN Creatinine Estim Creat Clear Calc Estimated GFR POC Glucose 170 H 201 H 141 H Random Glucose Estimat Average Glucose Hemoglobin A1c % Osmolality Lactic Acid Calcium Magnesium Iron TIBC % Saturation Unsat Iron Binding Total Bilirubin AST ALT Alkaline Phosphatase Total Protein Albumin Triglycerides Cholesterol LDL Cholesterol, Calc HDL Cholesterol Lipase TSH Free T4 Urine Color Urine Appearance Urine pH Ur Specific Butler Urine Protein Urine Glucose (UA) Urine Ketones Urine Blood Urine Nitrite Ur Leukocyte Esterase Urine RBC Urine WBC Ur Squamous Epith Cells Urine Bacteria Hyaline Casts Urine Osmolality Ur Random Sodium Urine Opiates Screen Ur Buprenorphine Scrn Ur Oxycodone Screen Urine Methadone Screen Urine Fentanyl Screen Ur Barbiturates Screen Carbamazepine Ur Phencyclidine Scrn Ur Amphetamines Screen U Benzodiazepines Scrn Urine Cocaine Screen U Marijuana (THC) Screen COVID-19 ([facility]) COVID-19 Clin Com Influenza Type A (AMANDA) Influenza Type B (AMANDA) Influenza A & B Note TB Test (T-Spot) Com TB Test Nil Control TB Test Panel A TB Test Panel B TB Test Positive Cntrl 12/21/24 12/22/24 12/22/24 20:59 06:39 11:34 WBC RBC Hgb Hct MCV MCH MCHC RDW Plt Count MPV Immature Gran % (Auto) Neut % (Auto) Lymph % (Auto) Mcdonald % (Auto) Eos % (Auto) Baso % (Auto) Lymph # (Auto) Mcdonald # (Auto) Eos # (Auto) Baso # (Auto) Abs Immat Gran (auto) Absolute Neuts (auto) Absolute Nucleated RBC Nucleated RBC % (auto) Smear Tech's Comments Hold Purple Top VBG pH VBG pCO2 VBG pO2 VBG HCO3 VBG O2 Saturation VBG Base Excess Sodium Potassium Chloride Carbon Dioxide Anion Gap BUN Creatinine Estim Creat Clear Calc Estimated GFR POC Glucose 270 H 217 H 134 H Random Glucose Estimat Average Glucose Hemoglobin A1c % Osmolality Lactic Acid Calcium Magnesium Iron TIBC % Saturation Unsat Iron Binding Total Bilirubin AST ALT Alkaline Phosphatase Total Protein Albumin Triglycerides Cholesterol LDL Cholesterol, Calc HDL Cholesterol Lipase TSH Free T4 Urine Color Urine Appearance Urine pH Ur Specific Butler Urine Protein Urine Glucose (UA) Urine Ketones Urine Blood Urine Nitrite Ur Leukocyte Esterase Urine RBC Urine WBC Ur Squamous Epith Cells Urine Bacteria Hyaline Casts Urine Osmolality Ur Random Sodium Urine Opiates Screen Ur Buprenorphine Scrn Ur Oxycodone Screen Urine Methadone Screen Urine Fentanyl Screen Ur Barbiturates Screen Carbamazepine Ur Phencyclidine Scrn Ur Amphetamines Screen U Benzodiazepines Scrn Urine Cocaine Screen U Marijuana (THC) Screen COVID-19 ([facility]) COVID-19 Clin Com Influenza Type A (AMANDA) Influenza Type B (AMANDA) Influenza A & B Note TB Test (T-Spot) Com TB Test Nil Control TB Test Panel A TB Test Panel B TB Test Positive Cntrl 12/22/24 12/22/24 12/23/24 16:32 20:04 06:23 WBC RBC Hgb Hct MCV MCH MCHC RDW Plt Count MPV Immature Gran % (Auto) Neut % (Auto) Lymph % (Auto) Mcdonald % (Auto) Eos % (Auto) Baso % (Auto) Lymph # (Auto) Mcdonald # (Auto) Eos # (Auto) Baso # (Auto) Abs Immat Gran (auto) Absolute Neuts (auto) Absolute Nucleated RBC Nucleated RBC % (auto) Smear Tech's Comments Hold Purple Top VBG pH VBG pCO2 VBG pO2 VBG HCO3 VBG O2 Saturation VBG Base Excess Sodium Potassium Chloride Carbon Dioxide Anion Gap BUN Creatinine Estim Creat Clear Calc Estimated GFR POC Glucose 200 H 76 237 H Random Glucose Estimat Average Glucose Hemoglobin A1c % Osmolality Lactic Acid Calcium Magnesium Iron TIBC % Saturation Unsat Iron Binding Total Bilirubin AST ALT Alkaline Phosphatase Total Protein Albumin Triglycerides Cholesterol LDL Cholesterol, Calc HDL Cholesterol Lipase TSH Free T4 Urine Color Urine Appearance Urine pH Ur Specific Butler Urine Protein Urine Glucose (UA) Urine Ketones Urine Blood Urine Nitrite Ur Leukocyte Esterase Urine RBC Urine WBC Ur Squamous Epith Cells Urine Bacteria Hyaline Casts Urine Osmolality Ur Random Sodium Urine Opiates Screen Ur Buprenorphine Scrn Ur Oxycodone Screen Urine Methadone Screen Urine Fentanyl Screen Ur Barbiturates Screen Carbamazepine Ur Phencyclidine Scrn Ur Amphetamines Screen U Benzodiazepines Scrn Urine Cocaine Screen U Marijuana (THC) Screen COVID-19 ([facility]) COVID-19 Clin Com Influenza Type A (AMANDA) Influenza Type B (AMANDA) Influenza A & B Note TB Test (T-Spot) Com TB Test Nil Control TB Test Panel A TB Test Panel B TB Test Positive [facility] 12/23/24 12/23/24 12/23/24 11:32 16:20 19:35 WBC RBC Hgb Hct MCV MCH MCHC RDW Plt Count MPV Immature Gran % (Auto) Neut % (Auto) Lymph % (Auto) Mcdonald % (Auto) Eos % (Auto) Baso % (Auto) Lymph # (Auto) Mcdonald # (Auto) Eos # (Auto) Baso # (Auto) Abs Immat Gran (auto) Absolute Neuts (auto) Absolute Nucleated RBC Nucleated RBC % (auto) Smear Tech's Comments Hold Purple Top VBG pH VBG pCO2 VBG pO2 VBG HCO3 VBG O2 Saturation VBG Base Excess Sodium Potassium Chloride Carbon Dioxide Anion Gap BUN Creatinine Estim Creat Clear Calc Estimated GFR POC Glucose 114 125 H 134 H Random Glucose Estimat Average Glucose Hemoglobin A1c % Osmolality Lactic Acid Calcium Magnesium Iron TIBC % Saturation Unsat Iron Binding Total Bilirubin AST ALT Alkaline Phosphatase Total Protein Albumin Triglycerides Cholesterol LDL Cholesterol, Calc HDL Cholesterol Lipase TSH Free T4 Urine Color Urine Appearance Urine pH Ur Specific Butler Urine Protein Urine Glucose (UA) Urine Ketones Urine Blood Urine Nitrite Ur Leukocyte Esterase Urine RBC Urine WBC Ur Squamous Epith Cells Urine Bacteria Hyaline Casts Urine Osmolality Ur Random Sodium Urine Opiates Screen Ur Buprenorphine Scrn Ur Oxycodone Screen Urine Methadone Screen Urine Fentanyl Screen Ur Barbiturates Screen Carbamazepine Ur Phencyclidine Scrn Ur Amphetamines Screen U Benzodiazepines Scrn Urine Cocaine Screen U Marijuana (THC) Screen COVID-19 ([facility]) COVID-19 Clin Com Influenza Type A (AMANDA) Influenza Type B (AMANDA) Influenza A & B Note TB Test (T-Spot) Com TB Test Nil Control TB Test Panel A TB Test Panel B TB Test Positive Cntrl 12/24/24 12/24/24 12/24/24 06:14 11:21 16:11 WBC RBC Hgb Hct MCV MCH MCHC RDW Plt Count MPV Immature Gran % (Auto) Neut % (Auto) Lymph % (Auto) Mcdonald % (Auto) Eos % (Auto) Baso % (Auto) Lymph # (Auto) Mcdonald # (Auto) Eos # (Auto) Baso # (Auto) Abs Immat Gran (auto) Absolute Neuts (auto) Absolute Nucleated RBC Nucleated RBC % (auto) Smear Tech's Comments Hold Purple Top VBG pH VBG pCO2 VBG pO2 VBG HCO3 VBG O2 Saturation VBG Base Excess Sodium Potassium Chloride Carbon Dioxide Anion Gap BUN Creatinine Estim Creat Clear Calc Estimated GFR POC Glucose 212 H 168 H 97 Random Glucose Estimat Average Glucose Hemoglobin A1c % Osmolality Lactic Acid Calcium Magnesium Iron TIBC % Saturation Unsat Iron Binding Total Bilirubin AST ALT Alkaline Phosphatase Total Protein Albumin Triglycerides Cholesterol LDL Cholesterol, Calc HDL Cholesterol Lipase TSH Free T4 Urine Color Urine Appearance Urine pH Ur Specific Butler Urine Protein Urine Glucose (UA) Urine Ketones Urine Blood Urine Nitrite Ur Leukocyte Esterase Urine RBC Urine WBC Ur Squamous Epith Cells Urine Bacteria Hyaline Casts Urine Osmolality Ur Random Sodium Urine Opiates Screen Ur Buprenorphine Scrn Ur Oxycodone Screen Urine Methadone Screen Urine Fentanyl Screen Ur Barbiturates Screen Carbamazepine Ur Phencyclidine Scrn Ur Amphetamines Screen U Benzodiazepines Scrn Urine Cocaine Screen U Marijuana (THC) Screen COVID-19 ([facility]) COVID-19 Clin Com Influenza Type A (AMANDA) Influenza Type B (AMANDA) Influenza A & B Note TB Test (T-Spot) Com TB Test Nil Control TB Test Panel A TB Test Panel B TB Test Positive [facility] 12/24/24 12/25/24 12/25/24 20:01 05:45 10:16 WBC RBC Hgb Hct MCV MCH MCHC RDW Plt Count MPV Immature Gran % (Auto) Neut % (Auto) Lymph % (Auto) Mcdonald % (Auto) Eos % (Auto) Baso % (Auto) Lymph # (Auto) Mcdonald # (Auto) Eos # (Auto) Baso # (Auto) Abs Immat Gran (auto) Absolute Neuts (auto) Absolute Nucleated RBC Nucleated RBC % (auto) Smear Tech's Comments Hold Purple Top VBG pH VBG pCO2 VBG pO2 VBG HCO3 VBG O2 Saturation VBG Base Excess Sodium Potassium Chloride Carbon Dioxide Anion Gap BUN Creatinine Estim Creat Clear Calc Estimated GFR POC Glucose 208 H 220 H 224 H Random Glucose Estimat Average Glucose Hemoglobin A1c % Osmolality Lactic Acid Calcium Magnesium Iron TIBC % Saturation Unsat Iron Binding Total Bilirubin AST ALT Alkaline Phosphatase Total Protein Albumin Triglycerides Cholesterol LDL Cholesterol, Calc HDL Cholesterol Lipase TSH Free T4 Urine Color Urine Appearance Urine pH Ur Specific Butler Urine Protein Urine Glucose (UA) Urine Ketones Urine Blood Urine Nitrite Ur Leukocyte Esterase Urine RBC Urine WBC Ur Squamous Epith Cells Urine Bacteria Hyaline Casts Urine Osmolality Ur Random Sodium Urine Opiates Screen Ur Buprenorphine Scrn Ur Oxycodone Screen Urine Methadone Screen Urine Fentanyl Screen Ur Barbiturates Screen Carbamazepine Ur Phencyclidine Scrn Ur Amphetamines Screen U Benzodiazepines Scrn Urine Cocaine Screen U Marijuana (THC) Screen COVID-19 ([facility]) COVID-19 Clin Com Influenza Type A (AMANDA) Influenza Type B (AMANDA) Influenza A & B Note TB Test (T-Spot) Com TB Test Nil Control TB Test Panel A TB Test Panel B TB Test Positive [facility] 12/25/24 12/25/24 12/26/24 16:09 20:08 06:42 WBC RBC Hgb Hct MCV MCH MCHC RDW Plt Count MPV Immature Gran % (Auto) Neut % (Auto) Lymph % (Auto) Mcdonald % (Auto) Eos % (Auto) Baso % (Auto) Lymph # (Auto) Mcdonald # (Auto) Eos # (Auto) Baso # (Auto) Abs Immat Gran (auto) Absolute Neuts (auto) Absolute Nucleated RBC Nucleated RBC % (auto) Smear Tech's Comments Hold Purple Top VBG pH VBG pCO2 VBG pO2 VBG HCO3 VBG O2 Saturation VBG Base Excess Sodium Potassium Chloride Carbon Dioxide Anion Gap BUN Creatinine Estim Creat Clear Calc Estimated GFR POC Glucose 86 281 H 210 H Random Glucose Estimat Average Glucose Hemoglobin A1c % Osmolality Lactic Acid Calcium Magnesium Iron TIBC % Saturation Unsat Iron Binding Total Bilirubin AST ALT Alkaline Phosphatase Total Protein Albumin Triglycerides Cholesterol LDL Cholesterol, Calc HDL Cholesterol Lipase TSH Free T4 Urine Color Urine Appearance Urine pH Ur Specific Butler Urine Protein Urine Glucose (UA) Urine Ketones Urine Blood Urine Nitrite Ur Leukocyte Esterase Urine RBC Urine WBC Ur Squamous Epith Cells Urine Bacteria Hyaline Casts Urine Osmolality Ur Random Sodium Urine Opiates Screen Ur Buprenorphine Scrn Ur Oxycodone Screen Urine Methadone Screen Urine Fentanyl Screen Ur Barbiturates Screen Carbamazepine Ur Phencyclidine Scrn Ur Amphetamines Screen U Benzodiazepines Scrn Urine Cocaine Screen U Marijuana (THC) Screen COVID-19 ([facility]ESA) COVID-19 Clin Com Influenza Type A (AMANDA) Influenza Type B (AMANDA) Influenza A & B Note TB Test (T-Spot) Com TB Test Nil Control TB Test Panel A TB Test [facility] 12[facility]26[facility]24 12/26/24 11:10 14:48 16:13 WBC RBC Hgb Hct MCV MCH MCHC RDW Plt Count MPV Immature Gran % (Auto) Neut % (Auto) Lymph % (Auto) Mcdonald % (Auto) Eos % (Auto) Baso % (Auto) Lymph # (Auto) Mcdonald # (Auto) Eos # (Auto) Baso # (Auto) Abs Immat Gran (auto) Absolute Neuts (auto) Absolute Nucleated RBC Nucleated RBC % (auto) Smear Tech's Comments Hold Purple Top VBG pH VBG pCO2 VBG pO2 VBG HCO3 VBG O2 Saturation VBG Base Excess Sodium Potassium Chloride Carbon Dioxide Anion Gap BUN Creatinine Estim Creat Clear Calc Estimated GFR POC Glucose 284 H 130 H 146 H Random Glucose Estimat Average Glucose Hemoglobin A1c % Osmolality Lactic Acid Calcium Magnesium Iron TIBC % Saturation Unsat Iron Binding Total Bilirubin AST ALT Alkaline Phosphatase Total Protein Albumin Triglycerides Cholesterol LDL Cholesterol, Calc HDL Cholesterol Lipase TSH Free T4 Urine Color Urine Appearance Urine pH Ur Specific Butler Urine Protein Urine Glucose (UA) Urine Ketones Urine Blood Urine Nitrite Ur Leukocyte Esterase Urine RBC Urine WBC Ur Squamous Epith Cells Urine Bacteria Hyaline Casts Urine Osmolality Ur Random Sodium Urine Opiates Screen Ur Buprenorphine Scrn Ur Oxycodone Screen Urine Methadone Screen Urine Fentanyl Screen Ur Barbiturates Screen Carbamazepine Ur Phencyclidine Scrn Ur Amphetamines Screen U Benzodiazepines Scrn Urine Cocaine Screen U Marijuana (THC) Screen COVID-19 ([facility]) COVID-19 Clin Com Influenza Type A (AMANDA) Influenza Type B (AMANDA) Influenza A & B Note TB Test (T-Spot) Com TB Test Nil Control TB Test Panel A TB Test Panel B TB Test Positive Cntrl 12/26/24 12/27/24 12/27/24 20:01 06:05 11:24 WBC RBC Hgb Hct MCV MCH MCHC RDW Plt Count MPV Immature Gran % (Auto) Neut % (Auto) Lymph % (Auto) Mcdonald % (Auto) Eos % (Auto) Baso % (Auto) Lymph # (Auto) Mcdonald # (Auto) Eos # (Auto) Baso # (Auto) Abs Immat Gran (auto) Absolute Neuts (auto) Absolute Nucleated RBC Nucleated RBC % (auto) Smear Tech's Comments Hold Purple Top VBG pH VBG pCO2 VBG pO2 VBG HCO3 VBG O2 Saturation VBG Base Excess Sodium Potassium Chloride Carbon Dioxide Anion Gap BUN Creatinine Estim Creat Clear Calc Estimated GFR POC Glucose 200 H 229 H 393 H* Random Glucose Estimat Average Glucose Hemoglobin A1c % Osmolality Lactic Acid Calcium Magnesium Iron TIBC % Saturation Unsat Iron Binding Total Bilirubin AST ALT Alkaline Phosphatase Total Protein Albumin Triglycerides Cholesterol LDL Cholesterol, Calc HDL Cholesterol Lipase TSH Free T4 Urine Color Urine Appearance Urine pH Ur Specific Butler Urine Protein Urine Glucose (UA) Urine Ketones Urine Blood Urine Nitrite Ur Leukocyte Esterase Urine RBC Urine WBC Ur Squamous Epith Cells Urine Bacteria Hyaline Casts Urine Osmolality Ur Random Sodium Urine Opiates Screen Ur Buprenorphine Scrn Ur Oxycodone Screen Urine Methadone Screen Urine Fentanyl Screen Ur Barbiturates Screen Carbamazepine Ur Phencyclidine Scrn Ur Amphetamines Screen U Benzodiazepines Scrn Urine Cocaine Screen U Marijuana (THC) Screen COVID-19 ([facility]ES[facility]) COVID-19 Clin Com Influenza Type A (AMANDA) Influenza Type B (AMANDA) Influenza A & B Note TB Test (T-Spot) Com TB Test Nil Control TB Test Panel A TB Test Panel B TB Test Positive [facility] 12/27/24 12/27/24 12/27/24 15:38 15:51 16:38 WBC RBC Hgb Hct MCV MCH MCHC RDW Plt Count MPV Immature Gran % (Auto) Neut % (Auto) Lymph % (Auto) Mcdonald % (Auto) Eos % (Auto) Baso % (Auto) Lymph # (Auto) Mcdonald # (Auto) Eos # (Auto) Baso # (Auto) Abs Immat Gran (auto) Absolute Neuts (auto) Absolute Nucleated RBC Nucleated RBC % (auto) Smear Tech's Comments Hold Purple Top VBG pH VBG pCO2 VBG pO2 VBG HCO3 VBG O2 Saturation VBG Base Excess Sodium Potassium Chloride Carbon Dioxide Anion Gap BUN Creatinine Estim Creat Clear Calc Estimated GFR POC Glucose 54 L* 109 199 H Random Glucose Estimat Average Glucose Hemoglobin A1c % Osmolality Lactic Acid Calcium Magnesium Iron TIBC % Saturation Unsat Iron Binding Total Bilirubin AST ALT Alkaline Phosphatase Total Protein Albumin Triglycerides Cholesterol LDL Cholesterol, Calc HDL Cholesterol Lipase TSH Free T4 Urine Color Urine Appearance Urine pH Ur Specific Butler Urine Protein Urine Glucose (UA) Urine Ketones Urine Blood Urine Nitrite Ur Leukocyte Esterase Urine RBC Urine WBC Ur Squamous Epith Cells Urine Bacteria Hyaline Casts Urine Osmolality Ur Random Sodium Urine Opiates Screen Ur Buprenorphine Scrn Ur Oxycodone Screen Urine Methadone Screen Urine Fentanyl Screen Ur Barbiturates Screen Carbamazepine Ur Phencyclidine Scrn Ur Amphetamines Screen U Benzodiazepines Scrn Urine Cocaine Screen U Marijuana (THC) Screen COVID-19 ([facility]) COVID-19 Clin Com Influenza Type A (AMANDA) Influenza Type B (AMANDA) Influenza A & B Note TB Test (T-Spot) Com TB Test Nil Control TB Test Panel A TB Test Panel B TB Test Positive [facility] 12/27/24 12/28/24 12/28/24 20:04 07:13 11:00 WBC RBC Hgb Hct MCV MCH MCHC RDW Plt Count MPV Immature Gran % (Auto) Neut % (Auto) Lymph % (Auto) Mcdonald % (Auto) Eos % (Auto) Baso % (Auto) Lymph # (Auto) Mcdonald # (Auto) Eos # (Auto) Baso # (Auto) Abs Immat Gran (auto) Absolute Neuts (auto) Absolute Nucleated RBC Nucleated RBC % (auto) Smear Tech's Comments Hold Purple Top VBG pH VBG pCO2 VBG pO2 VBG HCO3 VBG O2 Saturation VBG Base Excess Sodium Potassium Chloride Carbon Dioxide Anion Gap BUN Creatinine Estim Creat Clear Calc Estimated GFR POC Glucose 281 H 263 H 195 H Random Glucose Estimat Average Glucose Hemoglobin A1c % Osmolality Lactic Acid Calcium Magnesium Iron TIBC % Saturation Unsat Iron Binding Total Bilirubin AST ALT Alkaline Phosphatase Total Protein Albumin Triglycerides Cholesterol LDL Cholesterol, Calc HDL Cholesterol Lipase TSH Free T4 Urine Color Urine Appearance Urine pH Ur Specific Butler Urine Protein Urine Glucose (UA) Urine Ketones Urine Blood Urine Nitrite Ur Leukocyte Esterase Urine RBC Urine WBC Ur Squamous Epith Cells Urine Bacteria Hyaline Casts Urine Osmolality Ur Random Sodium Urine Opiates Screen Ur Buprenorphine Scrn Ur Oxycodone Screen Urine Methadone Screen Urine Fentanyl Screen Ur Barbiturates Screen Carbamazepine Ur Phencyclidine Scrn Ur Amphetamines Screen U Benzodiazepines Scrn Urine Cocaine Screen U Marijuana (THC) Screen COVID-19 ([facility]) COVID-19 Clin Com Influenza Type A (AMANDA) Influenza Type B (AMANDA) Influenza A & B Note TB Test (T-Spot) Com TB Test Nil Control TB Test Panel A TB Test Panel B TB Test Positive [facility] 12/28/24 12/28/24 12/29/24 16:12 20:21 06:47 WBC RBC Hgb Hct MCV MCH MCHC RDW Plt Count MPV Immature Gran % (Auto) Neut % (Auto) Lymph % (Auto) Mcdonald % (Auto) Eos % (Auto) Baso % (Auto) Lymph # (Auto) Mcdonald # (Auto) Eos # (Auto) Baso # (Auto) Abs Immat Gran (auto) Absolute Neuts (auto) Absolute Nucleated RBC Nucleated RBC % (auto) Smear Tech's Comments Hold Purple Top VBG pH VBG pCO2 VBG pO2 VBG HCO3 VBG O2 Saturation VBG Base Excess Sodium Potassium Chloride Carbon Dioxide Anion Gap BUN Creatinine Estim Creat Clear Calc Estimated GFR POC Glucose 111 134 H 257 H Random Glucose Estimat Average Glucose Hemoglobin A1c % Osmolality Lactic Acid Calcium Magnesium Iron TIBC % Saturation Unsat Iron Binding Total Bilirubin AST ALT Alkaline Phosphatase Total Protein Albumin Triglycerides Cholesterol LDL Cholesterol, Calc HDL Cholesterol Lipase TSH Free T4 Urine Color Urine Appearance Urine pH Ur Specific Butler Urine Protein Urine Glucose (UA) Urine Ketones Urine Blood Urine Nitrite Ur Leukocyte Esterase Urine RBC Urine WBC Ur Squamous Epith Cells Urine Bacteria Hyaline Casts Urine Osmolality Ur Random Sodium Urine Opiates Screen Ur Buprenorphine Scrn Ur Oxycodone Screen Urine Methadone Screen Urine Fentanyl Screen Ur Barbiturates Screen Carbamazepine Ur Phencyclidine Scrn Ur Amphetamines Screen U Benzodiazepines Scrn Urine Cocaine Screen U Marijuana (THC) Screen COVID-19 ([facility]) COVID-19 Clin Com Influenza Type A (AMANDA) Influenza Type B (AMANDA) Influenza A & B Note TB Test (T-Spot) Com TB Test Nil Control TB Test Panel A TB Test Panel B TB Test Positive [facility] 12/29/24 12/29/24 12/30/24 11:20 16:23 06:14 WBC RBC Hgb Hct MCV MCH MCHC RDW Plt Count MPV Immature Gran % (Auto) Neut % (Auto) Lymph % (Auto) Mcdonald % (Auto) Eos % (Auto) Baso % (Auto) Lymph # (Auto) Mcdonald # (Auto) Eos # (Auto) Baso # (Auto) Abs Immat Gran (auto) Absolute Neuts (auto) Absolute Nucleated RBC Nucleated RBC % (auto) Smear Tech's Comments Hold Purple Top VBG pH VBG pCO2 VBG pO2 VBG HCO3 VBG O2 Saturation VBG Base Excess Sodium Potassium Chloride Carbon Dioxide Anion Gap BUN Creatinine Estim Creat Clear Calc Estimated GFR POC Glucose 149 H 211 H 180 H Random Glucose Estimat Average Glucose Hemoglobin A1c % Osmolality Lactic Acid Calcium Magnesium Iron TIBC % Saturation Unsat Iron Binding Total Bilirubin AST ALT Alkaline Phosphatase Total Protein Albumin Triglycerides Cholesterol LDL Cholesterol, Calc HDL Cholesterol Lipase TSH Free T4 Urine Color Urine Appearance Urine pH Ur Specific Butler Urine Protein Urine Glucose (UA) Urine Ketones Urine Blood Urine Nitrite Ur Leukocyte Esterase Urine RBC Urine WBC Ur Squamous Epith Cells Urine Bacteria Hyaline Casts Urine Osmolality Ur Random Sodium Urine Opiates Screen Ur Buprenorphine Scrn Ur Oxycodone Screen Urine Methadone Screen Urine Fentanyl Screen Ur Barbiturates Screen Carbamazepine Ur Phencyclidine Scrn Ur Amphetamines Screen U Benzodiazepines Scrn Urine Cocaine Screen U Marijuana (THC) Screen COVID-19 ([facility]) COVID-19 Clin Com Influenza Type A (AMANDA) Influenza Type B (AMANDA) Influenza A & B Note TB Test (T-Spot) Com TB Test Nil Control TB Test Panel A TB Test Panel B TB Test Positive [facility] 12/30/24 12/30/24 12/30/24 08:43 11:25 14:17 WBC RBC Hgb Hct MCV MCH MCHC RDW Plt Count MPV Immature Gran % (Auto) Neut % (Auto) Lymph % (Auto) Mcdonald % (Auto) Eos % (Auto) Baso % (Auto) Lymph # (Auto) Mcdonald # (Auto) Eos # (Auto) Baso # (Auto) Abs Immat Gran (auto) Absolute Neuts (auto) Absolute Nucleated RBC Nucleated RBC % (auto) Smear Tech's Comments Hold Purple Top VBG pH VBG pCO2 VBG pO2 VBG HCO3 VBG O2 Saturation VBG Base Excess Sodium Potassium Chloride Carbon Dioxide Anion Gap BUN Creatinine Estim Creat Clear Calc Estimated GFR POC Glucose 267 H 288 H 47 L* Random Glucose Estimat Average Glucose Hemoglobin A1c % Osmolality Lactic Acid Calcium Magnesium Iron TIBC % Saturation Unsat Iron Binding Total Bilirubin AST ALT Alkaline Phosphatase Total Protein Albumin Triglycerides Cholesterol LDL Cholesterol, Calc HDL Cholesterol Lipase TSH Free T4 Urine Color Urine Appearance Urine pH Ur Specific Butler Urine Protein Urine Glucose (UA) Urine Ketones Urine Blood Urine Nitrite Ur Leukocyte Esterase Urine RBC Urine WBC Ur Squamous Epith Cells Urine Bacteria Hyaline Casts Urine Osmolality Ur Random Sodium Urine Opiates Screen Ur Buprenorphine Scrn Ur Oxycodone Screen Urine Methadone Screen Urine Fentanyl Screen Ur Barbiturates Screen Carbamazepine Ur Phencyclidine Scrn Ur Amphetamines Screen U Benzodiazepines Scrn Urine Cocaine Screen U Marijuana (THC) Screen COVID-19 ([facility]) COVID-19 Clin Com Influenza Type A (AMANDA) Influenza Type B (AMANDA) Influenza A & B Note TB Test (T-Spot) Com TB Test Nil Control TB Test Panel A TB Test Panel B TB Test Positive Cntrl 12/30/24 12/30/24 12/30/24 14:38 16:28 19:26 WBC RBC Hgb Hct MCV MCH MCHC RDW Plt Count MPV Immature Gran % (Auto) Neut % (Auto) Lymph % (Auto) Mcdonald % (Auto) Eos % (Auto) Baso % (Auto) Lymph # (Auto) Mcdonald # (Auto) Eos # (Auto) Baso # (Auto) Abs Immat Gran (auto) Absolute Neuts (auto) Absolute Nucleated RBC Nucleated RBC % (auto) Smear Tech's Comments Hold Purple Top VBG pH VBG pCO2 VBG pO2 VBG HCO3 VBG O2 Saturation VBG Base Excess Sodium Potassium Chloride Carbon Dioxide Anion Gap BUN Creatinine Estim Creat Clear Calc Estimated GFR POC Glucose 100 140 H 179 H Random Glucose Estimat Average Glucose Hemoglobin A1c % Osmolality Lactic Acid Calcium Magnesium Iron TIBC % Saturation Unsat Iron Binding Total Bilirubin AST ALT Alkaline Phosphatase Total Protein Albumin Triglycerides Cholesterol LDL Cholesterol, Calc HDL Cholesterol Lipase TSH Free T4 Urine Color Urine Appearance Urine pH Ur Specific Butler Urine Protein Urine Glucose (UA) Urine Ketones Urine Blood Urine Nitrite Ur Leukocyte Esterase Urine RBC Urine WBC Ur Squamous Epith Cells Urine Bacteria Hyaline Casts Urine Osmolality Ur Random Sodium Urine Opiates Screen Ur Buprenorphine Scrn Ur Oxycodone Screen Urine Methadone Screen Urine Fentanyl Screen Ur Barbiturates Screen Carbamazepine Ur Phencyclidine Scrn Ur Amphetamines Screen U Benzodiazepines Scrn Urine Cocaine Screen U Marijuana (THC) Screen COVID-19 ([facility]) COVID-19 Clin Com Influenza Type A (AMANDA) Influenza Type B (AMANDA) Influenza A & B Note TB Test (T-Spot) Com TB Test Nil Control TB Test Panel A TB Test Panel B TB Test Positive Cntrl 12/31/24 12/31/24 12/31/24 06:21 11:26 16:07 WBC RBC Hgb Hct MCV MCH MCHC RDW Plt Count MPV Immature Gran % (Auto) Neut % (Auto) Lymph % (Auto) Mcdonald % (Auto) Eos % (Auto) Baso % (Auto) Lymph # (Auto) Mcdonald # (Auto) Eos # (Auto) Baso # (Auto) Abs Immat Gran (auto) Absolute Neuts (auto) Absolute Nucleated RBC Nucleated RBC % (auto) Smear Tech's Comments Hold Purple Top VBG pH VBG pCO2 VBG pO2 VBG HCO3 VBG O2 Saturation VBG Base Excess Sodium Potassium Chloride Carbon Dioxide Anion Gap BUN Creatinine Estim Creat Clear Calc Estimated GFR POC Glucose 236 H 245 H 166 H Random Glucose Estimat Average Glucose Hemoglobin A1c % Osmolality Lactic Acid Calcium Magnesium Iron TIBC % Saturation Unsat Iron Binding Total Bilirubin AST ALT Alkaline Phosphatase Total Protein Albumin Triglycerides Cholesterol LDL Cholesterol, Calc HDL Cholesterol Lipase TSH Free T4 Urine Color Urine Appearance Urine pH Ur Specific Butler Urine Protein Urine Glucose (UA) Urine Ketones Urine Blood Urine Nitrite Ur Leukocyte Esterase Urine RBC Urine WBC Ur Squamous Epith Cells Urine Bacteria Hyaline Casts Urine Osmolality Ur Random Sodium Urine Opiates Screen Ur Buprenorphine Scrn Ur Oxycodone Screen Urine Methadone Screen Urine Fentanyl Screen Ur Barbiturates Screen Carbamazepine Ur Phencyclidine Scrn Ur Amphetamines Screen U Benzodiazepines Scrn Urine Cocaine Screen U Marijuana (THC) Screen COVID-19 ([facility]) COVID-19 Clin Com Influenza Type A (AMANDA) Influenza Type B (AMANDA) Influenza A & B Note TB Test (T-Spot) Com TB Test Nil Control TB Test Panel A TB Test Panel B TB Test Positive [facility] 12/31/24 01/01/25 01/01/25 20:36 06:10 10:35 WBC RBC Hgb Hct MCV MCH MCHC RDW Plt Count MPV Immature Gran % (Auto) Neut % (Auto) Lymph % (Auto) Mcdonald % (Auto) Eos % (Auto) Baso % (Auto) Lymph # (Auto) Mcdonald # (Auto) Eos # (Auto) Baso # (Auto) Abs Immat Gran (auto) Absolute Neuts (auto) Absolute Nucleated RBC Nucleated RBC % (auto) Smear Tech's Comments Hold Purple Top VBG pH VBG pCO2 VBG pO2 VBG HCO3 VBG O2 Saturation VBG Base Excess Sodium Potassium Chloride Carbon Dioxide Anion Gap BUN Creatinine Estim Creat Clear Calc Estimated GFR POC Glucose 130 H 186 H 263 H Random Glucose Estimat Average Glucose Hemoglobin A1c % Osmolality Lactic Acid Calcium Magnesium Iron TIBC % Saturation Unsat Iron Binding Total Bilirubin AST ALT Alkaline Phosphatase Total Protein Albumin Triglycerides Cholesterol LDL Cholesterol, Calc HDL Cholesterol Lipase TSH Free T4 Urine Color Urine Appearance Urine pH Ur Specific Butler Urine Protein Urine Glucose (UA) Urine Ketones Urine Blood Urine Nitrite Ur Leukocyte Esterase Urine RBC Urine WBC Ur Squamous Epith Cells Urine Bacteria Hyaline Casts Urine Osmolality Ur Random Sodium Urine Opiates Screen Ur Buprenorphine Scrn Ur Oxycodone Screen Urine Methadone Screen Urine Fentanyl Screen Ur Barbiturates Screen Carbamazepine Ur Phencyclidine Scrn Ur Amphetamines Screen U Benzodiazepines Scrn Urine Cocaine Screen U Marijuana (THC) Screen COVID-19 ([facility]) COVID-19 Clin Com Influenza Type A (AMANDA) Influenza Type B (AMANDA) Influenza A & B Note TB Test (T-Spot) Com TB Test Nil Control TB Test Panel A TB Test Panel B TB Test Positive [facility] 01/01/25 01/01/25 01/02/25 16:17 20:04 06:32 WBC RBC Hgb Hct MCV MCH MCHC RDW Plt Count MPV Immature Gran % (Auto) Neut % (Auto) Lymph % (Auto) Mcdonald % (Auto) Eos % (Auto) Baso % (Auto) Lymph # (Auto) Mcdonald # (Auto) Eos # (Auto) Baso # (Auto) Abs Immat Gran (auto) Absolute Neuts (auto) Absolute Nucleated RBC Nucleated RBC % (auto) Smear Tech's Comments Hold Purple Top VBG pH VBG pCO2 VBG pO2 VBG HCO3 VBG O2 Saturation VBG Base Excess Sodium Potassium Chloride Carbon Dioxide Anion Gap BUN Creatinine Estim Creat Clear Calc Estimated GFR POC Glucose 184 H 180 H 194 H Random Glucose Estimat Average Glucose Hemoglobin A1c % Osmolality Lactic Acid Calcium Magnesium Iron TIBC % Saturation Unsat Iron Binding Total Bilirubin AST ALT Alkaline Phosphatase Total Protein Albumin Triglycerides Cholesterol LDL Cholesterol, Calc HDL Cholesterol Lipase TSH Free T4 Urine Color Urine Appearance Urine pH Ur Specific Butler Urine Protein Urine Glucose (UA) Urine Ketones Urine Blood Urine Nitrite Ur Leukocyte Esterase Urine RBC Urine WBC Ur Squamous Epith Cells Urine Bacteria Hyaline Casts Urine Osmolality Ur Random Sodium Urine Opiates Screen Ur Buprenorphine Scrn Ur Oxycodone Screen Urine Methadone Screen Urine Fentanyl Screen Ur Barbiturates Screen Carbamazepine Ur Phencyclidine Scrn Ur Amphetamines Screen U Benzodiazepines Scrn Urine Cocaine Screen U Marijuana (THC) Screen COVID-19 ([facility]) COVID-19 Clin Com Influenza Type A (AMANDA) Influenza Type B (AMANDA) Influenza A & B Note TB Test (T-Spot) Com TB Test Nil Control TB Test Panel A TB Test Panel B TB Test Positive Cntrl 01/02/25 01/02/25 01/03/25 11:20 16:21 09:38 WBC RBC Hgb Hct MCV MCH MCHC RDW Plt Count MPV Immature Gran % (Auto) Neut % (Auto) Lymph % (Auto) Mcdonald % (Auto) Eos % (Auto) Baso % (Auto) Lymph # (Auto) Mcdonald # (Auto) Eos # (Auto) Baso # (Auto) Abs Immat Gran (auto) Absolute Neuts (auto) Absolute Nucleated RBC Nucleated RBC % (auto) Smear Tech's Comments Hold Purple Top VBG pH VBG pCO2 VBG pO2 VBG HCO3 VBG O2 Saturation VBG Base Excess Sodium Potassium Chloride Carbon Dioxide Anion Gap BUN Creatinine Estim Creat Clear Calc Estimated GFR POC Glucose 259 H 103 258 H Random Glucose Estimat Average Glucose Hemoglobin A1c % Osmolality Lactic Acid Calcium Magnesium Iron TIBC % Saturation Unsat Iron Binding Total Bilirubin AST ALT Alkaline Phosphatase Total Protein Albumin Triglycerides Cholesterol LDL Cholesterol, Calc HDL Cholesterol Lipase TSH Free T4 Urine Color Urine Appearance Urine pH Ur Specific Butler Urine Protein Urine Glucose (UA) Urine Ketones Urine Blood Urine Nitrite Ur Leukocyte Esterase Urine RBC Urine WBC Ur Squamous Epith Cells Urine Bacteria Hyaline Casts Urine Osmolality Ur Random Sodium Urine Opiates Screen Ur Buprenorphine Scrn Ur Oxycodone Screen Urine Methadone Screen Urine Fentanyl Screen Ur Barbiturates Screen Carbamazepine Ur Phencyclidine Scrn Ur Amphetamines Screen U Benzodiazepines Scrn Urine Cocaine Screen U Marijuana (THC) Screen COVID-19 ([facility]ES[facility]) COVID-19 Clin Com Influenza Type A (AMANDA) Influenza Type B (AMANDA) Influenza A & B Note TB Test (T-Spot) Com TB Test Nil Control TB Test Panel A TB Test Panel B TB Test Positive [facility] 01/03/25 01/03/25 01/03/25 11:07 14:34 14:57 WBC RBC Hgb Hct MCV MCH MCHC RDW Plt Count MPV Immature Gran % (Auto) Neut % (Auto) Lymph % (Auto) Mcdonald % (Auto) Eos % (Auto) Baso % (Auto) Lymph # (Auto) Mcdonald # (Auto) Eos # (Auto) Baso # (Auto) Abs Immat Gran (auto) Absolute Neuts (auto) Absolute Nucleated RBC Nucleated RBC % (auto) Smear Tech's Comments Hold Purple Top VBG pH VBG pCO2 VBG pO2 VBG HCO3 VBG O2 Saturation VBG Base Excess Sodium Potassium Chloride Carbon Dioxide Anion Gap BUN Creatinine Estim Creat Clear Calc Estimated GFR POC Glucose 364 H* 62 82 Random Glucose Estimat Average Glucose Hemoglobin A1c % Osmolality Lactic Acid Calcium Magnesium Iron TIBC % Saturation Unsat Iron Binding Total Bilirubin AST ALT Alkaline Phosphatase Total Protein Albumin Triglycerides Cholesterol LDL Cholesterol, Calc HDL Cholesterol Lipase TSH Free T4 Urine Color Urine Appearance Urine pH Ur Specific Butler Urine Protein Urine Glucose (UA) Urine Ketones Urine Blood Urine Nitrite Ur Leukocyte Esterase Urine RBC Urine WBC Ur Squamous Epith Cells Urine Bacteria Hyaline Casts Urine Osmolality Ur Random Sodium Urine Opiates Screen Ur Buprenorphine Scrn Ur Oxycodone Screen Urine Methadone Screen Urine Fentanyl Screen Ur Barbiturates Screen Carbamazepine Ur Phencyclidine Scrn Ur Amphetamines Screen U Benzodiazepines Scrn Urine Cocaine Screen U Marijuana (THC) Screen COVID-19 ([facility]ESA) COVID-19 Clin Com Influenza Type A (AMANDA) Influenza Type B (AMANDA) Influenza A & B Note TB Test (T-Spot) Com TB Test Nil Control TB Test Panel A TB Test Panel B TB Test Positive [facility] 01/03/25 01/03/25 01/03/25 15:41 16:19 21:13 WBC RBC Hgb Hct MCV MCH MCHC RDW Plt Count MPV Immature Gran % (Auto) Neut % (Auto) Lymph % (Auto) Mcdonald % (Auto) Eos % (Auto) Baso % (Auto) Lymph # (Auto) Mcdonald # (Auto) Eos # (Auto) Baso # (Auto) Abs Immat Gran (auto) Absolute Neuts (auto) Absolute Nucleated RBC Nucleated RBC % (auto) Smear Tech's Comments Hold Purple Top VBG pH VBG pCO2 VBG pO2 VBG HCO3 VBG O2 Saturation VBG Base Excess Sodium Potassium Chloride Carbon Dioxide Anion Gap BUN Creatinine Estim Creat Clear Calc Estimated GFR POC Glucose 136 H 111 226 H Random Glucose Estimat Average Glucose Hemoglobin A1c % Osmolality Lactic Acid Calcium Magnesium Iron TIBC % Saturation Unsat Iron Binding Total Bilirubin AST ALT Alkaline Phosphatase Total Protein Albumin Triglycerides Cholesterol LDL Cholesterol, Calc HDL Cholesterol Lipase TSH Free T4 Urine Color Urine Appearance Urine pH Ur Specific Butler Urine Protein Urine Glucose (UA) Urine Ketones Urine Blood Urine Nitrite Ur Leukocyte Esterase Urine RBC Urine WBC Ur Squamous Epith Cells Urine Bacteria Hyaline Casts Urine Osmolality Ur Random Sodium Urine Opiates Screen Ur Buprenorphine Scrn Ur Oxycodone Screen Urine Methadone Screen Urine Fentanyl Screen Ur Barbiturates Screen Carbamazepine Ur Phencyclidine Scrn Ur Amphetamines Screen U Benzodiazepines Scrn Urine Cocaine Screen U Marijuana (THC) Screen COVID-19 ([facility]ES[facility]) COVID-19 Clin Com Influenza Type A (AMANDA) Influenza Type B (AMANDA) Influenza A & B Note TB Test (T-Spot) Com TB Test Nil Control TB Test Panel A TB Test Panel B TB Test Positive Cnt 01/04/25 01/04/25 01/04/25 06:34 11:21 16:19 WBC RBC Hgb Hct MCV MCH MCHC RDW Plt Count MPV Immature Gran % (Auto) Neut % (Auto) Lymph % (Auto) Mcdonald % (Auto) Eos % (Auto) Baso % (Auto) Lymph # (Auto) Mcdonald # (Auto) Eos # (Auto) Baso # (Auto) Abs Immat Gran (auto) Absolute Neuts (auto) Absolute Nucleated RBC Nucleated RBC % (auto) Smear Tech's Comments Hold Purple Top VBG pH VBG pCO2 VBG pO2 VBG HCO3 VBG O2 Saturation VBG Base Excess Sodium Potassium Chloride Carbon Dioxide Anion Gap BUN Creatinine Estim Creat Clear Calc Estimated GFR POC Glucose 229 H 274 H 125 H Random Glucose Estimat Average Glucose Hemoglobin A1c % Osmolality Lactic Acid Calcium Magnesium Iron TIBC % Saturation Unsat Iron Binding Total Bilirubin AST ALT Alkaline Phosphatase Total Protein Albumin Triglycerides Cholesterol LDL Cholesterol, Calc HDL Cholesterol Lipase TSH Free T4 Urine Color Urine Appearance Urine pH Ur Specific Butler Urine Protein Urine Glucose (UA) Urine Ketones Urine Blood Urine Nitrite Ur Leukocyte Esterase Urine RBC Urine WBC Ur Squamous Epith Cells Urine Bacteria Hyaline Casts Urine Osmolality Ur Random Sodium Urine Opiates Screen Ur Buprenorphine Scrn Ur Oxycodone Screen Urine Methadone Screen Urine Fentanyl Screen Ur Barbiturates Screen Carbamazepine Ur Phencyclidine Scrn Ur Amphetamines Screen U Benzodiazepines Scrn Urine Cocaine Screen U Marijuana (THC) Screen COVID-19 ([facility]ES[facility]) COVID-19 Clin Com Influenza Type A (AMANDA) Influenza Type B (AMANDA) Influenza A & B Note TB Test (T-Spot) Com TB Test Nil Control TB Test Panel A TB Test Panel B TB Test Positive Cntrl 01/04/25 01/05/25 01/05/25 20:51 06:25 11:20 WBC RBC Hgb Hct MCV MCH MCHC RDW Plt Count MPV Immature Gran % (Auto) Neut % (Auto) Lymph % (Auto) Mcdonald % (Auto) Eos % (Auto) Baso % (Auto) Lymph # (Auto) Mcdonald # (Auto) Eos # (Auto) Baso # (Auto) Abs Immat Gran (auto) Absolute Neuts (auto) Absolute Nucleated RBC Nucleated RBC % (auto) Smear Tech's Comments Hold Purple Top VBG pH VBG pCO2 VBG pO2 VBG HCO3 VBG O2 Saturation VBG Base Excess Sodium Potassium Chloride Carbon Dioxide Anion Gap BUN Creatinine Estim Creat Clear Calc Estimated GFR POC Glucose 214 H 242 H 215 H Random Glucose Estimat Average Glucose Hemoglobin A1c % Osmolality Lactic Acid Calcium Magnesium Iron TIBC % Saturation Unsat Iron Binding Total Bilirubin AST ALT Alkaline Phosphatase Total Protein Albumin Triglycerides Cholesterol LDL Cholesterol, Calc HDL Cholesterol Lipase TSH Free T4 Urine Color Urine Appearance Urine pH Ur Specific Butler Urine Protein Urine Glucose (UA) Urine Ketones Urine Blood Urine Nitrite Ur Leukocyte Esterase Urine RBC Urine WBC Ur Squamous Epith Cells Urine Bacteria Hyaline Casts Urine Osmolality Ur Random Sodium Urine Opiates Screen Ur Buprenorphine Scrn Ur Oxycodone Screen Urine Methadone Screen Urine Fentanyl Screen Ur Barbiturates Screen Carbamazepine Ur Phencyclidine Scrn Ur Amphetamines Screen U Benzodiazepines Scrn Urine Cocaine Screen U Marijuana (THC) Screen COVID-19 ([facility]ESA) COVID-19 Clin Com Influenza Type A (AMANDA) Influenza Type B (AMANDA) Influenza A & B Note TB Test (T-Spot) Com TB Test Nil Control TB Test Panel A TB Test Panel B TB Test Positive [facility] 01/05/25 01/05/25 01/06/25 16:12 20:09 06:17 WBC RBC Hgb Hct MCV MCH MCHC RDW Plt Count MPV Immature Gran % (Auto) Neut % (Auto) Lymph % (Auto) Mcdonald % (Auto) Eos % (Auto) Baso % (Auto) Lymph # (Auto) Mcdonald # (Auto) Eos # (Auto) Baso # (Auto) Abs Immat Gran (auto) Absolute Neuts (auto) Absolute Nucleated RBC Nucleated RBC % (auto) Smear Tech's Comments Hold Purple Top VBG pH VBG pCO2 VBG pO2 VBG HCO3 VBG O2 Saturation VBG Base Excess Sodium Potassium Chloride Carbon Dioxide Anion Gap BUN Creatinine Estim Creat Clear Calc Estimated GFR POC Glucose 167 H 137 H 263 H Random Glucose Estimat Average Glucose Hemoglobin A1c % Osmolality Lactic Acid Calcium Magnesium Iron TIBC % Saturation Unsat Iron Binding Total Bilirubin AST ALT Alkaline Phosphatase Total Protein Albumin Triglycerides Cholesterol LDL Cholesterol, Calc HDL Cholesterol Lipase TSH Free T4 Urine Color Urine Appearance Urine pH Ur Specific Butler Urine Protein Urine Glucose (UA) Urine Ketones Urine Blood Urine Nitrite Ur Leukocyte Esterase Urine RBC Urine WBC Ur Squamous Epith Cells Urine Bacteria Hyaline Casts Urine Osmolality Ur Random Sodium Urine Opiates Screen Ur Buprenorphine Scrn Ur Oxycodone Screen Urine Methadone Screen Urine Fentanyl Screen Ur Barbiturates Screen Carbamazepine Ur Phencyclidine Scrn Ur Amphetamines Screen U Benzodiazepines Scrn Urine Cocaine Screen U Marijuana (THC) Screen COVID-19 ([facility]ESA) COVID-19 Clin Com Influenza Type A (AMANDA) Influenza Type B (AMANDA) Influenza A & B Note TB Test (T-Spot) Com TB Test Nil Control TB Test Panel A TB Test Panel B TB Test Positive [facility] 01/06/25 01/06/25 01/06/25 11:00 16:22 21:22 WBC RBC Hgb Hct MCV MCH MCHC RDW Plt Count MPV Immature Gran % (Auto) Neut % (Auto) Lymph % (Auto) Mcdonald % (Auto) Eos % (Auto) Baso % (Auto) Lymph # (Auto) Mcdonald # (Auto) Eos # (Auto) Baso # (Auto) Abs Immat Gran (auto) Absolute Neuts (auto) Absolute Nucleated RBC Nucleated RBC % (auto) Smear Tech's Comments Hold Purple Top VBG pH VBG pCO2 VBG pO2 VBG HCO3 VBG O2 Saturation VBG Base Excess Sodium Potassium Chloride Carbon Dioxide Anion Gap BUN Creatinine Estim Creat Clear Calc Estimated GFR POC Glucose 194 H 106 227 H Random Glucose Estimat Average Glucose Hemoglobin A1c % Osmolality Lactic Acid Calcium Magnesium Iron TIBC % Saturation Unsat Iron Binding Total Bilirubin AST ALT Alkaline Phosphatase Total Protein Albumin Triglycerides Cholesterol LDL Cholesterol, Calc HDL Cholesterol Lipase TSH Free T4 Urine Color Urine Appearance Urine pH Ur Specific Butler Urine Protein Urine Glucose (UA) Urine Ketones Urine Blood Urine Nitrite Ur Leukocyte Esterase Urine RBC Urine WBC Ur Squamous Epith Cells Urine Bacteria Hyaline Casts Urine Osmolality Ur Random Sodium Urine Opiates Screen Ur Buprenorphine Scrn Ur Oxycodone Screen Urine Methadone Screen Urine Fentanyl Screen Ur Barbiturates Screen Carbamazepine Ur Phencyclidine Scrn Ur Amphetamines Screen U Benzodiazepines Scrn Urine Cocaine Screen U Marijuana (THC) Screen COVID-19 ([facility]) COVID-19 Clin Com Influenza Type A (AMANDA) Influenza Type B (AMANDA) Influenza A & B Note TB Test (T-Spot) Com TB Test Nil Control TB Test Panel A TB Test Panel B TB Test Positive Cntrl 01/07/25 01/07/25 01/07/25 06:25 11:28 16:08 WBC RBC Hgb Hct MCV MCH MCHC RDW Plt Count MPV Immature Gran % (Auto) Neut % (Auto) Lymph % (Auto) Mcdonald % (Auto) Eos % (Auto) Baso % (Auto) Lymph # (Auto) Mcdonald # (Auto) Eos # (Auto) Baso # (Auto) Abs Immat Gran (auto) Absolute Neuts (auto) Absolute Nucleated RBC Nucleated RBC % (auto) Smear Tech's Comments Hold Purple Top VBG pH VBG pCO2 VBG pO2 VBG HCO3 VBG O2 Saturation VBG Base Excess Sodium Potassium Chloride Carbon Dioxide Anion Gap BUN Creatinine Estim Creat Clear Calc Estimated GFR POC Glucose 223 H 300 H 151 H Random Glucose Estimat Average Glucose Hemoglobin A1c % Osmolality Lactic Acid Calcium Magnesium Iron TIBC % Saturation Unsat Iron Binding Total Bilirubin AST ALT Alkaline Phosphatase Total Protein Albumin Triglycerides Cholesterol LDL Cholesterol, Calc HDL Cholesterol Lipase TSH Free T4 Urine Color Urine Appearance Urine pH Ur Specific Butler Urine Protein Urine Glucose (UA) Urine Ketones Urine Blood Urine Nitrite Ur Leukocyte Esterase Urine RBC Urine WBC Ur Squamous Epith Cells Urine Bacteria Hyaline Casts Urine Osmolality Ur Random Sodium Urine Opiates Screen Ur Buprenorphine Scrn Ur Oxycodone Screen Urine Methadone Screen Urine Fentanyl Screen Ur Barbiturates Screen Carbamazepine Ur Phencyclidine Scrn Ur Amphetamines Screen U Benzodiazepines Scrn Urine Cocaine Screen U Marijuana (THC) Screen COVID-19 ([facility]) COVID-19 Clin Com Influenza Type A (AMANDA) Influenza Type B (AMANDA) Influenza A & B Note TB Test (T-Spot) Com TB Test Nil Control TB Test Panel A TB Test Panel B TB Test Positive [facility] 01/07/25 01/08/25 01/08/25 20:14 05:41 10:59 WBC RBC Hgb Hct MCV MCH MCHC RDW Plt Count MPV Immature Gran % (Auto) Neut % (Auto) Lymph % (Auto) Mcdonald % (Auto) Eos % (Auto) Baso % (Auto) Lymph # (Auto) Mcdonald # (Auto) Eos # (Auto) Baso # (Auto) Abs Immat Gran (auto) Absolute Neuts (auto) Absolute Nucleated RBC Nucleated RBC % (auto) Smear Tech's Comments Hold Purple Top VBG pH VBG pCO2 VBG pO2 VBG HCO3 VBG O2 Saturation VBG Base Excess Sodium Potassium Chloride Carbon Dioxide Anion Gap BUN Creatinine Estim Creat Clear Calc Estimated GFR POC Glucose 156 H 184 H 295 H Random Glucose Estimat Average Glucose Hemoglobin A1c % Osmolality Lactic Acid Calcium Magnesium Iron TIBC % Saturation Unsat Iron Binding Total Bilirubin AST ALT Alkaline Phosphatase Total Protein Albumin Triglycerides Cholesterol LDL Cholesterol, Calc HDL Cholesterol Lipase TSH Free T4 Urine Color Urine Appearance Urine pH Ur Specific Butler Urine Protein Urine Glucose (UA) Urine Ketones Urine Blood Urine Nitrite Ur Leukocyte Esterase Urine RBC Urine WBC Ur Squamous Epith Cells Urine Bacteria Hyaline Casts Urine Osmolality Ur Random Sodium Urine Opiates Screen Ur Buprenorphine Scrn Ur Oxycodone Screen Urine Methadone Screen Urine Fentanyl Screen Ur Barbiturates Screen Carbamazepine Ur Phencyclidine Scrn Ur Amphetamines Screen U Benzodiazepines Scrn Urine Cocaine Screen U Marijuana (THC) Screen COVID-19 ([facility]) COVID-19 Clin Com Influenza Type A (AMANDA) Influenza Type B (AMANDA) Influenza A & B Note TB Test (T-Spot) Com TB Test Nil Control TB Test Panel A TB Test Panel B TB Test Positive [facility] 01/08/25 01/08/2525 15:51 20:55 06:27 WBC RBC Hgb Hct MCV MCH MCHC RDW Plt Count MPV Immature Gran % (Auto) Neut % (Auto) Lymph % (Auto) Mcdonald % (Auto) Eos % (Auto) Baso % (Auto) Lymph # (Auto) Mcdonald # (Auto) Eos # (Auto) Baso # (Auto) Abs Immat Gran (auto) Absolute Neuts (auto) Absolute Nucleated RBC Nucleated RBC % (auto) Smear Tech's Comments Hold Purple Top VBG pH VBG pCO2 VBG pO2 VBG HCO3 VBG O2 Saturation VBG Base Excess Sodium Potassium Chloride Carbon Dioxide Anion Gap BUN Creatinine Estim Creat Clear Calc Estimated GFR POC Glucose 226 H 163 H 231 H Random Glucose Estimat Average Glucose Hemoglobin A1c % Osmolality Lactic Acid Calcium Magnesium Iron TIBC % Saturation Unsat Iron Binding Total Bilirubin AST ALT Alkaline Phosphatase Total Protein Albumin Triglycerides Cholesterol LDL Cholesterol, Calc HDL Cholesterol Lipase TSH Free T4 Urine Color Urine Appearance Urine pH Ur Specific Butler Urine Protein Urine Glucose (UA) Urine Ketones Urine Blood Urine Nitrite Ur Leukocyte Esterase Urine RBC Urine WBC Ur Squamous Epith Cells Urine Bacteria Hyaline Casts Urine Osmolality Ur Random Sodium Urine Opiates Screen Ur Buprenorphine Scrn Ur Oxycodone Screen Urine Methadone Screen Urine Fentanyl Screen Ur Barbiturates Screen Carbamazepine Ur Phencyclidine Scrn Ur Amphetamines Screen U Benzodiazepines Scrn Urine Cocaine Screen U Marijuana (THC) Screen COVID-19 ([facility]) COVID-19 Clin Com Influenza Type A (AMANDA) Influenza Type B (AMANDA) Influenza A & B Note TB Test (T-Spot) Com TB Test Nil Control TB Test Panel A TB Test Panel B TB Test Positive [facility] 01/09/25 01/09/25 01/09/25 11:07 16:03 19:56 WBC RBC Hgb Hct MCV MCH MCHC RDW Plt Count MPV Immature Gran % (Auto) Neut % (Auto) Lymph % (Auto) Mcdonald % (Auto) Eos % (Auto) Baso % (Auto) Lymph # (Auto) Mcdonald # (Auto) Eos # (Auto) Baso # (Auto) Abs Immat Gran (auto) Absolute Neuts (auto) Absolute Nucleated RBC Nucleated RBC % (auto) Smear Tech's Comments Hold Purple Top VBG pH VBG pCO2 VBG pO2 VBG HCO3 VBG O2 Saturation VBG Base Excess Sodium Potassium Chloride Carbon Dioxide Anion Gap BUN Creatinine Estim Creat Clear Calc Estimated GFR POC Glucose 168 H 161 H 232 H Random Glucose Estimat Average Glucose Hemoglobin A1c % Osmolality Lactic Acid Calcium Magnesium Iron TIBC % Saturation Unsat Iron Binding Total Bilirubin AST ALT Alkaline Phosphatase Total Protein Albumin Triglycerides Cholesterol LDL Cholesterol, Calc HDL Cholesterol Lipase TSH Free T4 Urine Color Urine Appearance Urine pH Ur Specific Butler Urine Protein Urine Glucose (UA) Urine Ketones Urine Blood Urine Nitrite Ur Leukocyte Esterase Urine RBC Urine WBC Ur Squamous Epith Cells Urine Bacteria Hyaline Casts Urine Osmolality Ur Random Sodium Urine Opiates Screen Ur Buprenorphine Scrn Ur Oxycodone Screen Urine Methadone Screen Urine Fentanyl Screen Ur Barbiturates Screen Carbamazepine Ur Phencyclidine Scrn Ur Amphetamines Screen U Benzodiazepines Scrn Urine Cocaine Screen U Marijuana (THC) Screen COVID-19 ([facility]) COVID-19 Clin Com Influenza Type A (AMANDA) Influenza Type B (AMANDA) Influenza A & B Note TB Test (T-Spot) Com TB Test Nil Control TB Test Panel A TB Test Panel B TB Test Positive [facility] 01/10/25 06:25 WBC RBC Hgb Hct MCV MCH MCHC RDW Plt Count MPV Immature Gran % (Auto) Neut % (Auto) Lymph % (Auto) Mcdonald % (Auto) Eos % (Auto) Baso % (Auto) Lymph # (Auto) Mcdonald # (Auto) Eos # (Auto) Baso # (Auto) Abs Immat Gran (auto) Absolute Neuts (auto) Absolute Nucleated RBC Nucleated RBC % (auto) Smear Tech's Comments Hold Purple Top VBG pH VBG pCO2 VBG pO2 VBG HCO3 VBG O2 Saturation VBG Base Excess Sodium Potassium Chloride Carbon Dioxide Anion Gap BUN Creatinine Estim Creat Clear Calc Estimated GFR POC Glucose 207 H Random Glucose Estimat Average Glucose Hemoglobin A1c % Osmolality Lactic Acid Calcium Magnesium Iron TIBC % Saturation Unsat Iron Binding Total Bilirubin AST ALT Alkaline Phosphatase Total Protein Albumin Triglycerides Cholesterol LDL Cholesterol, Calc HDL Cholesterol Lipase TSH Free T4 Urine Color Urine Appearance Urine pH Ur Specific Butler Urine Protein Urine Glucose (UA) Urine Ketones Urine Blood Urine Nitrite Ur Leukocyte Esterase Urine RBC Urine WBC Ur Squamous Epith Cells Urine Bacteria Hyaline Casts Urine Osmolality Ur Random Sodium Urine Opiates Screen Ur Buprenorphine Scrn Ur Oxycodone Screen Urine Methadone Screen Urine Fentanyl Screen Ur Barbiturates Screen Carbamazepine Ur Phencyclidine Scrn Ur Amphetamines Screen U Benzodiazepines Scrn Urine Cocaine Screen U Marijuana (THC) Screen COVID-19 ([facility]) COVID-19 Clin Com Influenza Type A (AMANDA) Influenza Type B (AMANDA) Influenza A & B Note TB Test (T-Spot) Com TB Test Nil Control TB Test Panel A TB Test Panel B TB Test Positive Cntrl Airway Mallampati Class: II TM Dist: >3cm Neck ROM: Full Heart: rrr Lungs: cta Assessment and Plan Assessment Anesthesia Assessment: Anesthesia Plan Discussed and Chart Reviewed Final Anesthetic Review Family History of Problems with Anesthesia: No History of Problems with Anesthesia: No NPO: Yes ASA Class: III Final Preanesthetic Review: No Changes in Pt Med Stat, Meds/Allgs Chart Reviewed and Consent Obtained/Reviewed Patient Risk: Intermediate Procedure Risk: Intermediate Anesthetic Plan Anesthetic Plan: GA Disposition: Standard PACU
--- NOTE | 2025-01-10 09:32 | MHC.SHP ---
Pre-Procedural Eval Section A - 24 Hr Update-Section A only Date of Service: 01/10/25 The patient is an INPATIENT: Yes Changes since office visit: Yes Changes in Medication and Yes Patient answered all questions; No Cold of Flu in the past 2 weeks and No New Medical Problems The patient has been examined within 24 hours of the surgical procedure. The History & Physical has been completed within 30 days and I have reviewed it.: Yes Section B - Complete if H&P > 30 days Chief Complaint: SI with plan to OD on medications, increased anxie Allergies: Allergies Allergy/AdvReac Type Severity Reaction Status Date / Time ampicillin Allergy Rash Verified 10/20/24 19:28 morphine Allergy Rash Verified 10/20/24 19:28 Penicillins Allergy Rash Verified 10/20/24 19:28 pork derived (porcine) Allergy Vomiting Verified 11/10/24 17:49 Plan I have reviewed the history and physical and performed a pertinent physical examination on my patient. No changes have occurred unless specified. Time Spent With Patient Time: Total time managing care of this patient today ____ minutes.
--- NOTE | 2025-01-10 09:47 | HO.ECTPROC ---
ECT Procedure Note Diagnosis/Treatment Date of Service: 01/10/25 Diagnosis: Major Depressive Disorder Previous ECT Date: 01/08/25 Current Treatment Number: 8 Treatment: Series Interval Clinical Notes: pt required labetolol pre tx for htn propofol post Time: Total time managing care of this patient today ____ minutes. ECT Settings Device: THYMATRON DGx Seizure Duration By EEG (in seconds): 16 Ancillary Medications Cardiovascular Medications: Labetolol Miscillaneous Medications: Propofol and Flumazenil Airway Management Airway Management: Bag Mask Ventilation Treatment Recommendations Electrode Placement: Bifrontal Program/Pulse Width: 0.50 Pt Tolerated Procedure w/o Issue: Yes
[2025-01-10] MEDS: Fluticasone/Vilanterol 100/25 BLST.W.DEV 1 PUFF INHALE (10:47)
[2025-01-10] MEDS: buPROPion HCl XL 150 MG TAB.ER.24H PO (10:47)
[2025-01-10 10:54] LABS: Glucose, Whole Blood 247 mg/dL (60-115)
--- NOTE | 2025-01-10 11:31 | P.PNPSI_ITS ---
Subjective Subjective Date of Service: 01/10/25 Reason For Visit: SI with plan to OD on medications, increased anxie Subjective Notes: Conditional Voluntary Healthcare Proxy: Yes Interim History: Patient generally feeling better had ECT today without difficulty Medication Compliance: Yes Mental Status Exam Mental Status Exam Narrative: She is alert, pleasant and cooperative. Speech is normal. good eye contact. Affect is appropriate and contained. anxiety continues, depression much improved. No acute signs of psychosis. Diagnostics Vital Signs (24Hr): Vital Signs - 24 hr 01/09/25 20:00 01/10/25 07:54 01/10/25 08:00 Temperature 96.8 F 97.4 F 97.5 F Pulse Rate 82 89 101 H Respiratory Rate 20 20 18 Blood Pressure 132/71 134/74 129/68 Pulse Oximetry 96 98 98 Oxygen Delivery Method Room Air Room Air Room Air Oxygen Flow Rate 01/10/25 09:50 01/10/25 09:55 01/10/25 10:00 Temperature 97.9 F Pulse Rate 83 73 74 Respiratory Rate 20 20 20 Blood Pressure 182/82 H 137/77 137/75 Pulse Oximetry 100 100 100 Oxygen Delivery Method Nasal Cannula with ETCO2 Nasal Cannula with ETCO2 Nasal Cannula with ETCO2 Oxygen Flow Rate 2 2 2 01/10/25 10:05 01/10/25 10:15 01/10/25 10:29 Temperature 98 F Pulse Rate 75 73 79 Respiratory Rate 20 20 20 Blood Pressure 139/80 142/74 H 132/79 Pulse Oximetry 100 100 98 Oxygen Delivery Method Nasal Cannula with ETCO2 Room Air Room Air Oxygen Flow Rate 2 01/10/25 10:48 01/10/25 10:49 Temperature 97 F Pulse Rate 73 Respiratory Rate Blood Pressure 146/94 H 146/94 H Pulse Oximetry 99 Oxygen Delivery Method Room Air Oxygen Flow Rate BMI result Body Mass Index 22.6 Labs 11/02/24 20:14 12/20/24 08:43 Labs: Laboratory Results - last 48 hr 01/08/25 01/08/25 01/09/25 15:51 20:55 06:27 POC Glucose 226 H 163 H 231 H 01/09/25 01/09/25 01/09/25 11:07 16:03 19:56 POC Glucose 168 H 161 H 232 H 01/10/25 01/10/25 06:25 10:47 POC Glucose 207 H 247 H Imaging Radiology Impressions: ITS Impressions Hip/Pelvis X-Ray 11/05/24 11:00 IMPRESSION: Unremarkable examination of the left hip. Electronically signed by: Sam Saini MD 11/05/2024 11:13 AM EDT RP KUB X-Ray 11/06/24 09:20 IMPRESSION: Large amount of stool throughout the colon. Electronically signed by: Sam Saini MD 11/06/2024 09:34 AM EDT RP Head CT 11/08/24 14:58 IMPRESSION: Left frontal soft tissue swelling. No acute intracranial abnormality. Electronically signed by: Sam Saini MD 11/08/2024 03:18 PM EDT RP Medications Medications Current Medications Acetaminophen (Acetaminophen 325 Mg Tablet) 650 mg PO Q6H PRN PRN Reason: Headache/Pain, Scale 1-10 Last Admin: 01/07/25 20:19 Dose: 650 mg Al Hydroxide/Mg Hydroxide (Magnesium Hydrox/Alum Hydrox 30 Ml Oral.Susp) 30 ml PO Q6H PRN PRN Reason: Heartburn/Nausea Last Admin: 01/08/25 11:43 Dose: 30 ml Albuterol Sulfate (Albuterol Sulfate (0.083%) 2.5 Mg/3 Ml Vial.Neb) 2.5 mg INHALE ONCE PRN PRN Reason: Shortness of Breath/Wheezing Last Admin: 12/16/24 07:11 Dose: 2.5 mg Albuterol Sulfate (Albuterol Sulfate 90 Mcg 8 Gm Inhaler) 4 puff INHALE Q4H PRN PRN Reason: Shortness Of Breath Or Wheezin Amlodipine Besylate (Amlodipine Besylate 2.5 Mg Tablet) 2.5 mg PO DAILY RICHARD; Protocol Last Admin: 01/10/25 10:50 Dose: 2.5 mg Atorvastatin Calcium (Atorvastatin Calcium 20 Mg Tablet) 20 mg PO DAILY [facility] Last Admin: 01/10/25 10:47 Dose: 20 mg Bisacodyl (Bisacodyl 10 Mg Supp.Rect) 10 mg KS BEDTIME PRN PRN Reason: Constipation Last Admin: 11/04/24 20:37 Dose: 10 mg Bupropion HCl (Bupropion Hcl Xl 150 Mg Tab.Er.24h) 150 mg PO DAILY RICHARD Last Admin: 01/10/25 10:47 Dose: 150 mg Buspirone HCl (Buspirone Hcl 10 Mg Tablet) 20 mg PO TID [facility] Last Admin: 01/10/25 10:50 Dose: 20 mg Calcium Carbonate (Calcium Carbonate 750 Mg Tab.Chew) 750 mg PO Q4H PRN PRN Reason: Heartburn Last Admin: 11/30/24 21:34 Dose: 750 mg Clonazepam (Clonazepam Odt 0.125 Mg Tab.Rapdis) 0.125 mg PO BID PRN PRN Reason: severe anxiety Last Admin: 01/01/25 10:00 Dose: 0.125 mg Dicyclomine HCl (Dicyclomine Hcl 10 Mg Capsule) 10 mg PO Q4H PRN PRN Reason: abdominal cramping Last Admin: 12/17/24 13:55 Dose: 10 mg Docusate Sodium (Docusate Sodium 100 Mg Capsule) 100 mg PO BID [facility] Last Admin: 01/10/25 10:48 Dose: 100 mg Duloxetine HCl (Duloxetine Hcl 60 Mg Capsule.Dr) 60 mg PO DAILY [facility] Last Admin: 01/10/25 10:48 Dose: 60 mg Fluticasone/Vilanterol (Fluticasone/Vilanterol 100/25 Blst.W.Dev) 1 puff INHALE RDAILY [facility] Last Admin: 01/10/25 10:47 Dose: 1 puff Glipizide (Glipizide Xl 2.5 Mg Tab.Er.24) 2.5 mg PO DAILY [facility] Last Admin: 01/10/25 10:47 Dose: 2.5 mg Guaifenesin (Guaifenesin La 600 Mg Tab.Er.12h) 1,200 mg PO BID PRN PRN Reason: Cough Last Admin: 12/16/24 14:35 Dose: 1,200 mg Lactated Ringer's (Lr) 1,000 mls @ 50 mls/hr IVCONT .Q20H [facility] Last Admin: 01/10/25 09:27 Dose: Not Given Insulin Human Lispro (Insulin Lispro 100 Unit/Ml 3 Ml Vial) 0 unit SUBCUT TIDAC [facility]; Protocol Last Admin: 01/10/25 10:56 Dose: 4 unit Lisinopril (Lisinopril 2.5 Mg Tablet) 2.5 mg PO DAILY [facility]; Protocol Last Admin: 01/10/25 10:48 Dose: 2.5 mg Magnesium Hydroxide (Milk Of Magnesia 30 Ml Oral.Susp) 30 ml PO DAILY PRN PRN Reason: Constipation Last Admin: 11/04/24 16:49 Dose: 30 ml Mirtazapine (Mirtazapine 30 Mg Tablet) 30 mg PO BEDTIME [facility] Last Admin: 01/09/25 21:05 Dose: 30 mg Naloxone HCl (Naloxone Hcl 0.4 Mg/Ml Vial) 0.04 mg IVPUSH Q5M PRN PRN Reason: Excessive sedation or RR < 8 Naloxone HCl (Naloxone Hcl 0.4 Mg/Ml Vial) 0.04 mg IVPUSH Q5M PRN PRN Reason: Excessive sedation or RR < 8 Naloxone HCl (Naloxone Hcl 0.4 Mg/Ml Vial) 0.04 mg IVPUSH Q5M PRN PRN Reason: Excessive sedation or RR < 8 Omeprazole (Omeprazole 20 Mg Capsule.Dr) 20 mg PO BID@0630,1630 [facility] Last Admin: 01/10/25 10:44 Dose: Not Given Ondansetron HCl (Ondansetron Odt 4 Mg Tab.Rapdis) 4 mg TRANSLINGU Q4H PRN PRN Reason: Nausea and Vomiting Last Admin: 01/07/25 20:19 Dose: 4 mg Polyethylene Glycol (Polyethylene Glycol 3350 17 Gm Powd.Pack) 17 gm PO BID [facility] Last Admin: 01/10/25 09:26 Dose: Not Given Pyridoxine HCl (Pyridoxine Hcl (Vitamin B6) 50 Mg Tablet) 50 mg PO DAILY [facility] Last Admin: 01/10/25 10:48 Dose: 50 mg Ropinirole HCl (Ropinirole Hcl 2 Mg Tablet) 2 mg PO DAILY@1700 [facility] Last Admin: 01/09/25 17:13 Dose: 2 mg Ropinirole HCl (Ropinirole Hcl 0.5 Mg Tablet) 0.5 mg PO DAILY [facility] Last Admin: 01/10/25 10:47 Dose: 0.5 mg Simethicone (Simethicone 80 Mg Tab.Chew) 80 mg PO QIDWMHS [facility] Last Admin: 01/10/25 10:56 Dose: 80 mg Trazodone HCl (Trazodone Hcl 50 Mg Tablet) 50 mg PO BEDTIME MRX1 PRN PRN Reason: Insomnia Last Admin: 01/06/25 20:47 Dose: 50 mg Allergies Allergies Allergy/AdvReac Type Severity Reaction Status Date / Time ampicillin Allergy Rash Verified 10/20/24 19:28 morphine Allergy Rash Verified 10/20/24 19:28 Penicillins Allergy Rash Verified 10/20/24 19:28 pork derived (porcine) Allergy Vomiting Verified 11/10/24 17:49 Assessment & Plan Assessment & Plan (1) MDD (major depressive disorder), recurrent episode, moderate: Status: Acute Code(s): F33.1 - Major depressive disorder, recurrent, moderate (2) SHEILA (generalized anxiety disorder): Status: Acute Code(s): F41.1 - Generalized anxiety disorder (3) Forehead laceration: Status: Acute Code(s): S01.81XA - Laceration without foreign body of other part of head, initial encounter Assessment and Plan: Anxiety with suicidal ideation Plan per Psychiatry Undergoing ECT treatments Type 2 diabetes Continue with glipizide and SS Recent A1c 7.2, acceptable range for her age. We will add sliding scale insulin to improve glucose control, to help with symptoms of gastroparesis Avoid hypoglycemia, sugars 200-300 acceptable. Chronic abdominal plain/gastroparesis, chronic mild gastritis, history of diverticulosis Patient is at [facility], she has had Botox injections in the past last in March 2024 Patient had a recent upper endoscopy negative for H pylori or any abnormalities Continues on duloxetine, may help with chronic pain. Continues with omeprazole twice daily Avoid constipation. Avoid opiates and anticholinergics Restless leg syndrome Patient continues on gabapentin and Mirapex twice daily Hypertension/hyperlipidemia Continue atorvastatin, lisinopril, and amlodipine Blood pressure stable Plan Mrs. Barreto is a 78 year-old woman with hx of MDD who was assessed by N at request of her son who called 911 after pt had reported suicidal ideation with plan to OD. In the ED, pt adamantly denied suicidal ideation but reports feeling increasingly more depressed due to involuntary, ongoing movement of lower extremities. She attributes her depressed mood and increase anxious mood to RLS. She has also been treated as tardive akathisia, note that she was previously prescribed abilify. It is noted that she may have iron deficiency due to normocytic anemia which can exacerbate RLS. It is unclear which medications for hyperkinetic movements of the legs are actually helpful and furthermore it is not easily to differentiate whether it is tardive akathisia or RLS. She has been on psychotropic medications that are known to cause akathisia such as abilify. She reports subjective sense of restlessness. Involuntary movement seems to be throughout the day. We will have to do trial of medications that target akathisia such as propanolol and ativan versus medications such as pramipexol for RLS (note that in RLS there is an initial relief with dopamine agonist but can make it worse over time). In addition, will try iron deficiency as it is an underlying cause and exacerbating factor in RLS. PLAN 11/14 continue tx. will monitor before making substantial changes every day. 11/15 continue tx. pt somatically preoccupied. 11/16: Continue current management and treatment plan. 11/17: continue current management and treatment plan. 11/18 start buspar 10mg po TID for SHEILA. continue all other meds. 11/19 increase buspar 20mg po TID 11/20 appears calmer, less somatically preoccupied. continue current medications. 11/21 sodium stable. continues to present as less dysphoric, calmer. reports of dizziness (VS not hotn nor orthostatic), ?vertigo, will try low dose of meclizine otherwise will consult hospitalist for further management. 8.2- pt more focused on gi issues- and anxiety/forgetfulness- continue to monitor somatic complaints- dc qid poc 11/25 will lowered ropinirole as it may increasing anxiety, noted that buspar was lowered, do not think this medication was causing fogginess as pt appeared much calmer since we added buspar. She was started on low dose clonazepam. 11/26 continue tx. received one time dose xanax, but reported feeling overly sedated (although did not appear sedated) 11/27 somatically p8/: Continue current regimen and plansreoccupied, no change in medications. 11/29 continue tx. 11/30: Continue current regimen and plans 12/01: Continue current plans and regimen 12/02 increase buspar 20mg po TID. 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 start wellbutrin XL 150 daily tomorrow for depression. also c/o anxiety-provoking and nocturnally loud peer. schedule klonopin 0.25 QHS for insomnia. otherwise continue current mgmt. awaiting placement. 12/04: slept well last night, started wellbutrin this morning without incident. continue current mgmt. will be discharging to [facility]. 12/05: slept well. c/o anxiety at 3-330 in the afternoon. pt to ask for klonopin PRN at 2-230. trend anxiety, T/C DC of wellbutrin if anxiety seems reliably increased since starting it. dispo next week likely. 12/06: anxious. schedule klonopin 0.25 mg Qdaily at 1430 per pt request. otherwise continue current mgmt. 12/07: anxious and depressed. c/o insomnia. will give wellbutrin a few more days to see if insomnia subsides and mood improves. per staf, stable and uneventful presentation. 12/08: depressed. agreeable to increase wellbutrin to 300 mg as of tomorrow. otherwise continue current mgmt. sleeping well. 12/09: started wellbutrin 300 today. c/o URI Sx, start guaifenesin. otherwise continue current mgmt. 12/10: coughin much eves/NOC per staff. pt c/o not happy, cough, and poor sleep. continue mucinex and mental health Tx plan otherwise. 12/11/24: Patient appeared to slept for 8 hours, was medication compliant but refused the MiraLax. Denies side effects. She is observed watching TV in common area. Reported that she feel anxious and depressed. She is worry about when she is leaving as she is going to stay by herself. I am depressed . Self reports that she did not sleep well last night as roommate waking her up at night telling her that she saw dogs. She reports normal stomach pain. She would hope to see the GI doctor after discharge. She reported that she will be discharged on 12/17 but not sure the name of the facility or where it is located. Denies safety concerns, denies hallucinations. No coughing observed this morning. 12/12: c/o unremitting depression, saying she does not want to live like this. interested in ECT, educated re the procedure. obtain risk strat and EKG, discuss in rounds tomorrow morning. otherwise continue current mgmt. 12/13: continues to push for ECT. seen by hospitalist, no relative contraindications to the procedure. case d/w patient's daughter chantelle as well, who avers that pt has been in this state for a long time, it's only getting worse, and medications have not been helpful. johanna supports this trial on the wishes of her mother and MD's recommendation. ECT ordered, will get pt on the schedule as soon as possible. 12/14: Cough-productive, O2 sats are lower , CXR positive. Seen by hospitalist. Antibiotics initiated, R/O pneumonia 12/15: Pt unable to tolerate doxycycline. Hospitalist will change to Ceftin. 12/16: ECT held today due to januvia and respiratory virus. mood slightly improved. plan for ECT. 12/17: COVID and flu NEG. c/o nausea, exacerbation of chronic condition, h/o gastroparesis. holding januvia. start reglan for gastroparesis. continue current mgmt otherwise. NPO past MN for ECT tomorrow. 12/18: awaiting med clearance for ECT. planning for ECT monday. otherwise continue current mgmt. glucose noted to be elevated since holding januvia the past several days. 12/19 continue current medications. pt hopefull will have ECT tomorrow. NPO from midnight. 12/20 continue tx. Had ECT #1 no complications noted or reported. 12/21:Continue ECT. 12/22: Increase Klonopin PRN to BID. Otherwise continue current management and treatment plan. 12/23: continue current management and treatment plan. 12/24 continue tx. ECT tomorrow, NPO after midnight. 12/25 continue tx. 12/26: ECT #3 completed today. pleasant, feeling improved. Sz duration longer than prior but remains suboptimal. will DC gabapentin and decrease PRN klonopin to 0.125 mg per dose. next ECT monday. continue current mgmt otherwise. 12/28 Patient says she is all right and no complaints other than restless leg/akathisia which she says is bothering her. Discussed ECT and patient says she wants to continue getting ECT which she thinks is helpful and is why she wants to remain inpatient. Machine Printer agreed to: -order extra ropinrile 1mg daily prn 12/29Patient says she is so-so and Continues to have akathisia; patient benefitted somewhat from propranolol, which is preferable to increasing ropinirole (BP these mildly hypertensive; regular heart rate). Review of chart and patient was started on metoclopramide for diabetic gastroparesis. Discussed with patient who agrees to lowering metoclopramide; will increase propranolol and DC p.r.n. ropinirole -lower metoclopramide to 3 mg t.i.d. a.c.; (no N/V or constipation) -increase to propranolol 10 mg t.i.d. p.r.n. for restless leg -DC extra p.r.n. ropinirole 12/30: c/o restless legs. notes reviewed on the subject, plan noted. had ECT today, believes she is only having one more. anxiety Sx appear worse than prior, difficult to assess mood under the circumstances. continue current mgmt for now. 12/31: reglan DCed but still c/o RLS. requip Rx noted. ECT tomorrow. i don't feel down. NPO past MN, otherwise continue current mgmt. 01/01: stable, depression/anxiety lessened. awaiting ECT today. c/o RLS, plan to restart gabapentin after ECT course is finished. continue current mgmt otherwise. 01/02: appears more affectively flexible. reports mood OK. no somatic complaints or requests of MD. would like tomorrow's ECT, #6, to be her final of the series. continue current mgmt for now. NPO past MN. 01/03/2025 ECT held on 6. Consider restart if needed patient does appear open to this. Continue Wellbutrin and Cymbalta 01/04: continue, will explore whether or not to do additional ECT on Friday 01/05: will make NPO after midnight, patient aware - primary team may decide not to proceed with ECT tomorrow 01/06/2025 Low Wellbutrin to 150 mg secondary to anxiety and decreased appetite. restart ECT patient agreeable for better control and durability of symptoms 01/07: DC pramipexole in the morning, substitute with ropinirole, which pt also taking in substantial amount eves. 2 more ECTs, then planning to discharge 01/14. T/C maintenance ECT. decrease in wellbutrin noted, pt c/o poor appetite. 01/08: ECT today. feeling more disoriented after, return to electrode placement right temporal and left frontal. planning for weekly ECT fridays for the next 5 weeks as of tomorrow. DC wellbutrin for anorexia. case discussed with pt's daughter johanna. continue current mgmt otherwise. 01/09: mood remains improved, clearer-headed today. ready for ECT tomorrow. no complaints or requests. 01/10/2025 Mood improved ECT completed evaluate whether or not to do outpatient ECT complicated issue because patient is on Jardiance unable to do sliding scale outpatient Patient educated on: ECT Informed Consent: further education needed Reason for continued inpatient stay Substantial Risk for: inability to function, rapid decompensation and med/psych decompensation Time Spent With Patient Time: Total time managing care of this patient today ____ minutes.
[2025-01-10 16:29] LABS: Glucose, Whole Blood 133 mg/dL (60-115)
[2025-01-10 21:29] LABS: Glucose, Whole Blood 297 mg/dL (60-115)
[2025-01-11 06:50] LABS: Glucose, Whole Blood 271 mg/dL (60-115)
[2025-01-11 08:00] VITALS: BP 144/66; PULSE 67; RESP 16; TEMP 36.1; O2SAT 97
[2025-01-11] MEDS: Magnesium Hydrox/Alum Hydrox 30 ML ORAL.SUSP PO ×2 (08:25→20:16)
[2025-01-11 08:26] VITALS: BP 144/66
[2025-01-11] MEDS: buPROPion HCl XL 150 MG TAB.ER.24H PO (08:26)
[2025-01-11] MEDS: Fluticasone/Vilanterol 100/25 BLST.W.DEV 1 PUFF INHALE (08:32)
[2025-01-11 11:12] LABS: Glucose, Whole Blood 291 mg/dL (60-115)
--- NOTE | 2025-01-11 14:47 | P.PNPSI_ITS ---
Subjective Subjective Date of Service: 01/11/25 Reason For Visit: SI with plan to OD on medications, increased anxie Interim History: Met with patient; discussed with team; chart review pt says she's doing ok; c/o nausea throughout the day, though is able to eat Mental Status Exam Mental Status Exam Narrative: She is alert, pleasant and cooperative. Speech is normal. good eye contact. Affect is appropriate and contained. anxiety continues, depression much improved. No acute signs of psychosis. Diagnostics Vital Signs (24Hr): Vital Signs - 24 hr 01/10/25 20:00 01/11/25 08:00 01/11/25 08:26 Temperature 97.1 F 97 F Pulse Rate 88 67 Respiratory Rate 18 16 Blood Pressure 146/81 H 144/66 H 144/66 H Pulse Oximetry 99 97 Oxygen Delivery Method Room Air Room Air 01/11/25 08:26 Temperature Pulse Rate Respiratory Rate Blood Pressure 144/66 H Pulse Oximetry Oxygen Delivery Method BMI result Body Mass Index 22.6 Labs 11/02/24 20:14 12/20/24 08:43 Labs: Laboratory Results - last 48 hr 01/09/25 01/09/25 01/10/25 16:03 19:56 06:25 POC Glucose 161 H 232 H 207 H 01/10/25 01/10/25 01/10/25 10:47 16:25 21:06 POC Glucose 247 H 133 H 297 H 01/11/25 01/11/25 06:44 11:00 POC Glucose 271 H 291 H Imaging Radiology Impressions: ITS Impressions Hip/Pelvis X-Ray 11/05/24 11:00 IMPRESSION: Unremarkable examination of the left hip. Electronically signed by: Sam Saini MD 11/05/2024 11:13 AM EDT RP KUB X-Ray 11/06/24 09:20 IMPRESSION: Large amount of stool throughout the colon. Electronically signed by: Sam Saini MD 11/06/2024 09:34 AM EDT RP Head CT 11/08/24 14:58 IMPRESSION: Left frontal soft tissue swelling. No acute intracranial abnormality. Electronically signed by: Sam Saini MD 11/08/2024 03:18 PM EDT RP Medications Medications Current Medications Acetaminophen (Acetaminophen 325 Mg Tablet) 650 mg PO Q6H PRN PRN Reason: Headache/Pain, Scale 1-10 Last Admin: 01/10/25 21:07 Dose: 650 mg Al Hydroxide/Mg Hydroxide (Magnesium Hydrox/Alum Hydrox 30 Ml Oral.Susp) 30 ml PO Q6H PRN PRN Reason: Heartburn/Nausea Last Admin: 01/11/25 08:25 Dose: 30 ml Albuterol Sulfate (Albuterol Sulfate 90 Mcg 8 Gm Inhaler) 4 puff INHALE Q4H PRN PRN Reason: Shortness Of Breath Or Wheezin Amlodipine Besylate (Amlodipine Besylate 2.5 Mg Tablet) 2.5 mg PO DAILY [facility]; Protocol Last Admin: 01/11/25 08:26 Dose: 2.5 mg Atorvastatin Calcium (Atorvastatin Calcium 20 Mg Tablet) 20 mg PO DAILY [facility] Last Admin: 01/11/25 12:02 Dose: 20 mg Bisacodyl (Bisacodyl 10 Mg Supp.Rect) 10 mg DC BEDTIME PRN PRN Reason: Constipation Last Admin: 11/04/24 20:37 Dose: 10 mg Bupropion HCl (Bupropion Hcl Xl 150 Mg Tab.Er.24h) 150 mg PO DAILY [facility] Last Admin: 01/11/25 08:26 Dose: 150 mg Buspirone HCl (Buspirone Hcl 10 Mg Tablet) 20 mg PO TID [facility] Last Admin: 01/11/25 08:26 Dose: 20 mg Calcium Carbonate (Calcium Carbonate 750 Mg Tab.Chew) 750 mg PO Q4H PRN PRN Reason: Heartburn Last Admin: 01/11/25 11:28 Dose: 750 mg Clonazepam (Clonazepam Odt 0.125 Mg Tab.Rapdis) 0.125 mg PO BID PRN PRN Reason: severe anxiety Last Admin: 01/01/25 10:00 Dose: 0.125 mg Dicyclomine HCl (Dicyclomine Hcl 10 Mg Capsule) 10 mg PO Q4H PRN PRN Reason: abdominal cramping Last Admin: 01/11/25 11:58 Dose: 10 mg Docusate Sodium (Docusate Sodium 100 Mg Capsule) 100 mg PO BID [facility] Last Admin: 01/11/25 08:26 Dose: 100 mg Duloxetine HCl (Duloxetine Hcl 60 Mg Capsule.Dr) 60 mg PO DAILY [facility] Last Admin: 01/11/25 08:35 Dose: 60 mg Fluticasone/Vilanterol (Fluticasone/Vilanterol 100/25 Blst.W.Dev) 1 puff INHALE RDAILY [facility] Last Admin: 01/11/25 08:32 Dose: 1 puff Glipizide (Glipizide Xl 2.5 Mg Tab.Er.24) 2.5 mg PO DAILY [facility] Last Admin: 01/11/25 08:26 Dose: 2.5 mg Guaifenesin (Guaifenesin La 600 Mg Tab.Er.12h) 1,200 mg PO BID PRN PRN Reason: Cough Last Admin: 12/16/24 14:35 Dose: 1,200 mg Lactated Ringer's (Lr) 1,000 mls @ 50 mls/hr IVCONT .Q20H [facility] Last Admin: 01/11/25 13:34 Dose: Not Given Insulin Human Lispro (Insulin Lispro 100 Unit/Ml 3 Ml Vial) 0 unit SUBCUT TIDAC [facility]; Protocol Last Admin: 01/11/25 11:29 Dose: 6 unit Lisinopril (Lisinopril 2.5 Mg Tablet) 2.5 mg PO DAILY [facility]; Protocol Last Admin: 01/11/25 08:26 Dose: 2.5 mg Magnesium Hydroxide (Milk Of Magnesia 30 Ml Oral.Susp) 30 ml PO DAILY PRN PRN Reason: Constipation Last Admin: 11/04/24 16:49 Dose: 30 ml Mirtazapine (Mirtazapine 30 Mg Tablet) 30 mg PO BEDTIME [facility] Last Admin: 01/10/25 21:07 Dose: 30 mg Naloxone HCl (Naloxone Hcl 0.4 Mg/Ml Vial) 0.04 mg IVPUSH Q5M PRN PRN Reason: Excessive sedation or RR < 8 Naloxone HCl (Naloxone Hcl 0.4 Mg/Ml Vial) 0.04 mg IVPUSH Q5M PRN PRN Reason: Excessive sedation or RR < 8 Naloxone HCl (Naloxone Hcl 0.4 Mg/Ml Vial) 0.04 mg IVPUSH Q5M PRN PRN Reason: Excessive sedation or RR < 8 Omeprazole (Omeprazole 20 Mg Capsule.Dr) 20 mg PO BID@0630,1630 [facility] Last Admin: 01/11/25 06:38 Dose: 20 mg Ondansetron HCl (Ondansetron Odt 4 Mg Tab.Rapdis) 4 mg TRANSLINGU Q4H PRN PRN Reason: Nausea and Vomiting Last Admin: 01/07/25 20:19 Dose: 4 mg Polyethylene Glycol (Polyethylene Glycol 3350 17 Gm Powd.Pack) 17 gm PO BID [facility] Last Admin: 01/11/25 08:35 Dose: Not Given Pyridoxine HCl (Pyridoxine Hcl (Vitamin B6) 50 Mg Tablet) 50 mg PO DAILY [facility] Last Admin: 01/11/25 08:26 Dose: 50 mg Ropinirole HCl (Ropinirole Hcl 2 Mg Tablet) 2 mg PO DAILY@1700 [facility] Last Admin: 01/10/25 16:28 Dose: 2 mg Ropinirole HCl (Ropinirole Hcl 0.5 Mg Tablet) 0.5 mg PO DAILY [facility] Last Admin: 01/11/25 08:26 Dose: 0.5 mg Simethicone (Simethicone 80 Mg Tab.Chew) 80 mg PO QIDWMHS [facility] Last Admin: 01/11/25 08:26 Dose: 80 mg Trazodone HCl (Trazodone Hcl 50 Mg Tablet) 50 mg PO BEDTIME MRX1 PRN PRN Reason: Insomnia Last Admin: 01/10/25 21:07 Dose: 50 mg Allergies Allergies Allergy/AdvReac Type Severity Reaction Status Date / Time ampicillin Allergy Rash Verified 10/20/24 19:28 morphine Allergy Rash Verified 10/20/24 19:28 Penicillins Allergy Rash Verified 10/20/24 19:28 pork derived (porcine) Allergy Vomiting Verified 11/10/24 17:49 Assessment & Plan Assessment & Plan (1) MDD (major depressive disorder), recurrent episode, moderate: Status: Acute Code(s): F33.1 - Major depressive disorder, recurrent, moderate (2) SHEILA (generalized anxiety disorder): Status: Acute Code(s): F41.1 - Generalized anxiety disorder (3) Forehead laceration: Status: Acute Code(s): S01.81XA - Laceration without foreign body of other part of head, initial encounter Assessment and Plan: Anxiety with suicidal ideation Plan per Psychiatry Undergoing ECT treatments Type 2 diabetes Continue with glipizide and SS Recent A1c 7.2, acceptable range for her age. We will add sliding scale insulin to improve glucose control, to help with symptoms of gastroparesis Avoid hypoglycemia, sugars 200-300 acceptable. Chronic abdominal plain/gastroparesis, chronic mild gastritis, history of diverticulosis Patient is at [facility], she has had Botox injections in the past last in March 2024 Patient had a recent upper endoscopy negative for H pylori or any abnormalities Continues on duloxetine, may help with chronic pain. Continues with omeprazole twice daily Avoid constipation. Avoid opiates and anticholinergics Restless leg syndrome Patient continues on gabapentin and Mirapex twice daily Hypertension/hyperlipidemia Continue atorvastatin, lisinopril, and amlodipine Blood pressure stable Plan Mrs. Barreto is a 78 year-old woman with hx of MDD who was assessed by N at request of her son who called 911 after pt had reported suicidal ideation with plan to OD. In the ED, pt adamantly denied suicidal ideation but reports feeling increasingly more depressed due to involuntary, ongoing movement of lower extremities. She attributes her depressed mood and increase anxious mood to RLS. She has also been treated as tardive akathisia, note that she was previously prescribed abilify. It is noted that she may have iron deficiency due to normocytic anemia which can exacerbate RLS. It is unclear which medications for hyperkinetic movements of the legs are actually helpful and furthermore it is not easily to differentiate whether it is tardive akathisia or RLS. She has been on psychotropic medications that are known to cause akathisia such as abilify. She reports subjective sense of restlessness. Involuntary movement seems to be throughout the day. We will have to do trial of medications that target akathisia such as propanolol and ativan versus medications such as pramipexol for RLS (note that in RLS there is an initial relief with dopamine agonist but can make it worse over time). In addition, will try iron deficiency as it is an underlying cause and exacerbating factor in RLS. PLAN 11/14 continue tx. will monitor before making substantial changes every day. 11/15 continue tx. pt somatically preoccupied. 11/16: Continue current management and treatment plan. 11/17: continue current management and treatment plan. 11/18 start buspar 10mg po TID for SHEILA. continue all other meds. 11/19 increase buspar 20mg po TID 11/20 appears calmer, less somatically preoccupied. continue current medications. 11/21 sodium stable. continues to present as less dysphoric, calmer. reports of dizziness (VS not hotn nor orthostatic), ?vertigo, will try low dose of meclizine otherwise will consult hospitalist for further management. 8.2- pt more focused on gi issues- and anxiety/forgetfulness- continue to monitor somatic complaints- dc qid poc 11/25 will lowered ropinirole as it may increasing anxiety, noted that buspar was lowered, do not think this medication was causing fogginess as pt appeared much calmer since we added buspar. She was started on low dose clonazepam. 11/26 continue tx. received one time dose xanax, but reported feeling overly sedated (although did not appear sedated) 11/27 somatically : Continue current regimen and plansreoccupied, no change in medications. 11/29 continue tx. 11/30: Continue current regimen and plans 12/01: Continue current plans and regimen 12/02 increase buspar 20mg po TID. 12/03: reports depression not improving, c/o feeling low energy and motivation, saying she needs a pear picker. start wellbutrin XL 150 daily tomorrow for depression. also c/o anxiety-provoking and nocturnally loud peer. schedule klonopin 0.25 QHS for insomnia. otherwise continue current mgmt. awaiting placement. 12/04: slept well last night, started wellbutrin this morning without incident. continue current mgmt. will be discharging to [facility]. 12/05: slept well. c/o anxiety at 3-330 in the afternoon. pt to ask for klonopin PRN at 2-230. trend anxiety, T/C DC of wellbutrin if anxiety seems reliably increased since starting it. dispo next week likely. 12/06: anxious. schedule klonopin 0.25 mg Qdaily at 1430 per pt request. otherwise continue current mgmt. 12/07: anxious and depressed. c/o insomnia. will give wellbutrin a few more days to see if insomnia subsides and mood improves. per staf, stable and uneventful presentation. 12/08: depressed. agreeable to increase wellbutrin to 300 mg as of tomorrow. otherwise continue current mgmt. sleeping well. 12/09: started wellbutrin 300 today. c/o URI Sx, start guaifenesin. otherwise continue current mgmt. 12/10: coughin much eves/NOC per staff. pt c/o not happy, cough, and poor sleep. continue mucinex and mental health Tx plan otherwise. 12/11/24: Patient appeared to slept for 8 hours, was medication compliant but refused the MiraLax. Denies side effects. She is observed watching TV in common area. Reported that she feel anxious and depressed. She is worry about when she is leaving as she is going to stay by herself. I am depressed . Self reports that she did not sleep well last night as roommate waking her up at night telling her that she saw dogs. She reports normal stomach pain. She would hope to see the GI doctor after discharge. She reported that she will be discharged on 12/17 but not sure the name of the facility or where it is located. Denies safety concerns, denies hallucinations. No coughing observed this morning. 12/12: c/o unremitting depression, saying she does not want to live like this. interested in ECT, educated re the procedure. obtain risk strat and EKG, discuss in rounds tomorrow morning. otherwise continue current mgmt. 12/13: continues to push for ECT. seen by hospitalist, no relative contraindications to the procedure. case d/w patient's daughter chantelle as well, who avers that pt has been in this state for a long time, it's only getting worse, and medications have not been helpful. johanna supports this trial on the wishes of her mother and MD's recommendation. ECT ordered, will get pt on the schedule as soon as possible. 12/14: Cough-productive, O2 sats are lower , CXR positive. Seen by hospitalist. Antibiotics initiated, R/O pneumonia 12/15: Pt unable to tolerate doxycycline. Hospitalist will change to Ceftin. 12/16: ECT held today due to januvia and respiratory virus. mood slightly improved. plan for ECT. 12/17: COVID and flu NEG. c/o nausea, exacerbation of chronic condition, h/o gastroparesis. holding januvia. start reglan for gastroparesis. continue current mgmt otherwise. NPO past MN for ECT tomorrow. 12/18: awaiting med clearance for ECT. planning for ECT monday. otherwise continue current mgmt. glucose noted to be elevated since holding januvia the past several days. 12/19 continue current medications. pt hopefull will have ECT tomorrow. NPO from midnight. 12/20 continue tx. Had ECT #1 no complications noted or reported. 12/21:Continue ECT. 12/22: Increase Klonopin PRN to BID. Otherwise continue current management and treatment plan. 12/23: continue current management and treatment plan. 12/24 continue tx. ECT tomorrow, NPO after midnight. 12/25 continue tx. 12/26: ECT #3 completed today. pleasant, feeling improved. Sz duration longer than prior but remains suboptimal. will DC gabapentin and decrease PRN klonopin to 0.125 mg per dose. next ECT monday. continue current mgmt otherwise. 12/28 Patient says she is all right and no complaints other than restless leg/akathisia which she says is bothering her. Discussed ECT and patient says she wants to continue getting ECT which she thinks is helpful and is why she wants to remain inpatient. Hair Preparer agreed to: -order extra ropinrile 1mg daily prn 12/29Patient says she is so-so and Continues to have akathisia; patient benefitted somewhat from propranolol, which is preferable to increasing ropinirole (BP these mildly hypertensive; regular heart rate). Review of chart and patient was started on metoclopramide for diabetic gastroparesis. Discussed with patient who agrees to lowering metoclopramide; will increase propranolol and DC p.r.n. ropinirole -lower metoclopramide to 3 mg t.i.d. a.c.; (no N/V or constipation) -increase to propranolol 10 mg t.i.d. p.r.n. for restless leg -DC extra p.r.n. ropinirole 12/30: c/o restless legs. notes reviewed on the subject, plan noted. had ECT today, believes she is only having one more. anxiety Sx appear worse than prior, difficult to assess mood under the circumstances. continue current mgmt for now. 12/31: reglan DCed but still c/o RLS. requip Rx noted. ECT tomorrow. i don't feel down. NPO past MN, otherwise continue current mgmt. 01/01: stable, depression/anxiety lessened. awaiting ECT today. c/o RLS, plan to restart gabapentin after ECT course is finished. continue current mgmt otherwise. 01/02: appears more affectively flexible. reports mood OK. no somatic complaints or requests of MD. would like tomorrow's ECT, #6, to be her final of the series. continue current mgmt for now. NPO past MN. 01/03/2025 ECT held on 6. Consider restart if needed patient does appear open to this. Continue Wellbutrin and Cymbalta 01/04: continue, will explore whether or not to do additional ECT on Friday 01/05: will make NPO after midnight, patient aware - primary team may decide not to proceed with ECT tomorrow 01/06/2025 Low Wellbutrin to 150 mg secondary to anxiety and decreased appetite. restart ECT patient agreeable for better control and durability of symptoms 01/07: DC pramipexole in the morning, substitute with ropinirole, which pt also taking in substantial amount eves. 2 more ECTs, then planning to discharge 01/14. T/C maintenance ECT. decrease in wellbutrin noted, pt c/o poor appetite. 01/08: ECT today. feeling more disoriented after, return to electrode placement right temporal and left frontal. planning for weekly ECT fridays for the next 5 weeks as of tomorrow. DC wellbutrin for anorexia. case discussed with pt's daughter johanna. continue current mgmt otherwise. 01/09: mood remains improved, clearer-headed today. ready for ECT tomorrow. no complaints or requests. 01/11 stable; remains with somatic complaints CTP Patient educated on: diagnosis Informed Consent: understands and further education needed Reason for continued inpatient stay Substantial Risk for: rapid decompensation Time Spent With Patient Time: Total time managing care of this patient today ____ minutes.
[2025-01-11 16:12] LABS: Glucose, Whole Blood 100 mg/dL (60-115)
[2025-01-11 20:00] VITALS: BP 125/93; PULSE 92; RESP 16; TEMP 36.2; O2SAT 99
[2025-01-11 20:57] LABS: Glucose, Whole Blood 239 mg/dL (60-115)
[2025-01-12 06:48] LABS: Glucose, Whole Blood 232 mg/dL (60-115)
[2025-01-12 08:00] VITALS: BP 132/68; PULSE 95; RESP 14; TEMP 35.8; O2SAT 99
[2025-01-12] MEDS: buPROPion HCl XL 150 MG TAB.ER.24H PO (08:19)
[2025-01-12] MEDS: Fluticasone/Vilanterol 100/25 BLST.W.DEV 1 PUFF INHALE ×2 (08:20→11:58)
[2025-01-12 11:16] LABS: Glucose, Whole Blood 256 mg/dL (60-115)
[2025-01-12] MEDS: Magnesium Hydrox/Alum Hydrox 30 ML ORAL.SUSP PO (14:57)
[2025-01-12 16:30] LABS: Glucose, Whole Blood 110 mg/dL (60-115)
--- NOTE | 2025-01-12 16:52 | P.PNPSI_ITS ---
Subjective Subjective Date of Service: 01/12/25 Reason For Visit: SI with plan to OD on medications, increased anxie Interim History: Met with patient; discussed with team pleasant friendly on approach; mood overall better; says malcomua off/on. Mental Status Exam Mental Status Exam Narrative: She is alert, pleasant and cooperative. Speech is normal. good eye contact. Affect is appropriate and contained. anxiety continues, depression much improved. No acute signs of psychosis. Diagnostics Vital Signs (24Hr): Vital Signs - 24 hr 01/11/25 20:00 01/12/25 08:00 Temperature 97.1 F 96.5 F L Pulse Rate 92 95 Respiratory Rate 16 14 Blood Pressure 125/93 H 132/68 Pulse Oximetry 99 99 Oxygen Delivery Method Room Air Room Air BMI result Body Mass Index 22.6 Labs 11/02/24 20:14 12/20/24 08:43 Labs: Laboratory Results - last 48 hr 01/10/25 01/11/25 01/11/25 21:06 06:44 11:00 POC Glucose 297 H 271 H 291 H 01/11/25 01/11/25 01/12/25 16:01 20:12 06:42 POC Glucose 100 239 H 232 H 01/12/25 01/12/25 11:04 16:15 POC Glucose 256 H 110 Imaging Radiology Impressions: ITS Impressions Hip/Pelvis X-Ray 11/05/24 11:00 IMPRESSION: Unremarkable examination of the left hip. Electronically signed by: Sam Saini MD 11/05/2024 11:13 AM EDT RP KUB X-Ray 11/06/24 09:20 IMPRESSION: Large amount of stool throughout the colon. Electronically signed by: Sam Saini MD 11/06/2024 09:34 AM EDT RP Head CT 11/08/24 14:58 IMPRESSION: Left frontal soft tissue swelling. No acute intracranial abnormality. Electronically signed by: Sam Saini MD 11/08/2024 03:18 PM EDT RP Medications Medications Current Medications Acetaminophen (Acetaminophen 325 Mg Tablet) 650 mg PO Q6H PRN PRN Reason: Headache/Pain, Scale 1-10 Last Admin: 01/11/25 20:16 Dose: 650 mg Al Hydroxide/Mg Hydroxide (Magnesium Hydrox/Alum Hydrox 30 Ml Oral.Susp) 30 ml PO Q6H PRN PRN Reason: Heartburn/Nausea Last Admin: 01/12/25 14:57 Dose: 30 ml Albuterol Sulfate (Albuterol Sulfate 90 Mcg 8 Gm Inhaler) 4 puff INHALE Q4H PRN PRN Reason: Shortness Of Breath Or Wheezin Amlodipine Besylate (Amlodipine Besylate 2.5 Mg Tablet) 2.5 mg PO DAILY [facility]; Protocol Last Admin: 01/12/25 08:19 Dose: 2.5 mg Atorvastatin Calcium (Atorvastatin Calcium 20 Mg Tablet) 20 mg PO DAILY [facility] Last Admin: 01/12/25 08:21 Dose: 20 mg Bisacodyl (Bisacodyl 10 Mg Supp.Rect) 10 mg AL BEDTIME PRN PRN Reason: Constipation Last Admin: 11/04/24 20:37 Dose: 10 mg Bupropion HCl (Bupropion Hcl Xl 150 Mg Tab.Er.24h) 150 mg PO DAILY [facility] Last Admin: 01/12/25 08:19 Dose: 150 mg Buspirone HCl (Buspirone Hcl 10 Mg Tablet) 20 mg PO TID [facility] Last Admin: 01/12/25 14:55 Dose: 20 mg Calcium Carbonate (Calcium Carbonate 750 Mg Tab.Chew) 750 mg PO Q4H PRN PRN Reason: Heartburn Last Admin: 01/11/25 11:28 Dose: 750 mg Clonazepam (Clonazepam Odt 0.125 Mg Tab.Rapdis) 0.125 mg PO BID PRN PRN Reason: severe anxiety Last Admin: 01/01/25 10:00 Dose: 0.125 mg Dicyclomine HCl (Dicyclomine Hcl 10 Mg Capsule) 10 mg PO Q4H PRN PRN Reason: abdominal cramping Last Admin: 01/12/25 08:19 Dose: 10 mg Docusate Sodium (Docusate Sodium 100 Mg Capsule) 100 mg PO BID [facility] Last Admin: 01/12/25 08:19 Dose: 100 mg Duloxetine HCl (Duloxetine Hcl 60 Mg Capsule.Dr) 60 mg PO DAILY [facility] Last Admin: 01/12/25 08:19 Dose: 60 mg Fluticasone/Vilanterol (Fluticasone/Vilanterol 100/25 Blst.W.Dev) 1 puff INHALE RDAILY [facility] Last Admin: 01/12/25 11:58 Dose: 1 puff Glipizide (Glipizide Xl 2.5 Mg Tab.Er.24) 2.5 mg PO DAILY [facility] Last Admin: 01/12/25 08:19 Dose: 2.5 mg Guaifenesin (Guaifenesin La 600 Mg Tab.Er.12h) 1,200 mg PO BID PRN PRN Reason: Cough Last Admin: 12/16/24 14:35 Dose: 1,200 mg Insulin Human Lispro (Insulin Lispro 100 Unit/Ml 3 Ml Vial) 0 unit SUBCUT TIDAC [facility]; Protocol Last Admin: 01/12/25 16:34 Dose: Not Given Lisinopril (Lisinopril 2.5 Mg Tablet) 2.5 mg PO DAILY [facility]; Protocol Last Admin: 01/12/25 08:19 Dose: 2.5 mg Magnesium Hydroxide (Milk Of Magnesia 30 Ml Oral.Susp) 30 ml PO DAILY PRN PRN Reason: Constipation Last Admin: 11/04/24 16:49 Dose: 30 ml Mirtazapine (Mirtazapine 30 Mg Tablet) 30 mg PO BEDTIME [facility] Last Admin: 01/11/25 20:17 Dose: 30 mg Naloxone HCl (Naloxone Hcl 0.4 Mg/Ml Vial) 0.04 mg IVPUSH Q5M PRN PRN Reason: Excessive sedation or RR < 8 Naloxone HCl (Naloxone Hcl 0.4 Mg/Ml Vial) 0.04 mg IVPUSH Q5M PRN PRN Reason: Excessive sedation or RR < 8 Naloxone HCl (Naloxone Hcl 0.4 Mg/Ml Vial) 0.04 mg IVPUSH Q5M PRN PRN Reason: Excessive sedation or RR < 8 Omeprazole (Omeprazole 20 Mg Capsule.Dr) 20 mg PO BID@0630,1630 [facility] Last Admin: 01/12/25 16:38 Dose: 20 mg Ondansetron HCl (Ondansetron Odt 4 Mg Tab.Rapdis) 4 mg TRANSLINGU Q4H PRN PRN Reason: Nausea and Vomiting Last Admin: 01/07/25 20:19 Dose: 4 mg Polyethylene Glycol (Polyethylene Glycol 3350 17 Gm Powd.Pack) 17 gm PO BID [facility] Last Admin: 01/12/25 11:31 Dose: Not Given Pyridoxine HCl (Pyridoxine Hcl (Vitamin B6) 50 Mg Tablet) 50 mg PO DAILY [facility] Last Admin: 01/12/25 08:19 Dose: 50 mg Ropinirole HCl (Ropinirole Hcl 2 Mg Tablet) 2 mg PO DAILY@1700 [facility] Last Admin: 01/12/25 16:38 Dose: 2 mg Ropinirole HCl (Ropinirole Hcl 0.5 Mg Tablet) 0.5 mg PO DAILY [facility] Last Admin: 01/12/25 08:21 Dose: 0.5 mg Simethicone (Simethicone 80 Mg Tab.Chew) 80 mg PO QIDWMHS [facility] Last Admin: 01/12/25 16:38 Dose: 80 mg Trazodone HCl (Trazodone Hcl 50 Mg Tablet) 50 mg PO BEDTIME MRX1 PRN PRN Reason: Insomnia Last Admin: 01/11/25 20:17 Dose: 50 mg Allergies Allergies Allergy/AdvReac Type Severity Reaction Status Date / Time ampicillin Allergy Rash Verified 10/20/24 19:28 morphine Allergy Rash Verified 10/20/24 19:28 Penicillins Allergy Rash Verified 10/20/24 19:28 pork derived (porcine) Allergy Vomiting Verified 11/10/24 17:49 Assessment & Plan Assessment & Plan (1) MDD (major depressive disorder), recurrent episode, moderate: Status: Acute Code(s): F33.1 - Major depressive disorder, recurrent, moderate (2) SHEILA (generalized anxiety disorder): Status: Acute Code(s): F41.1 - Generalized anxiety disorder (3) Forehead laceration: Status: Acute Code(s): S01.81XA - Laceration without foreign body of other part of head, initial encounter Assessment and Plan: Anxiety with suicidal ideation Plan per Psychiatry Undergoing ECT treatments Type 2 diabetes Continue with glipizide and SS Recent A1c 7.2, acceptable range for her age. We will add sliding scale insulin to improve glucose control, to help with symptoms of gastroparesis Avoid hypoglycemia, sugars 200-300 acceptable. Chronic abdominal plain/gastroparesis, chronic mild gastritis, history of diverticulosis Patient is at [facility], she has had Botox injections in the past last in March 2024 Patient had a recent upper endoscopy negative for H pylori or any abnormalities Continues on duloxetine, may help with chronic pain. Continues with omeprazole twice daily Avoid constipation. Avoid opiates and anticholinergics Restless leg syndrome Patient continues on gabapentin and Mirapex twice daily Hypertension/hyperlipidemia Continue atorvastatin, lisinopril, and amlodipine Blood pressure stable Plan Mrs. Barreto is a 78 year-old woman with hx of MDD who was assessed by N at request of her son who called 911 after pt had reported suicidal ideation with plan to OD. In the ED, pt adamantly denied suicidal ideation but reports feeling increasingly more depressed due to involuntary, ongoing movement of lower extremities. She attributes her depressed mood and increase anxious mood to RLS. She has also been treated as tardive akathisia, note that she was previously prescribed abilify. It is noted that she may have iron deficiency due to normocytic anemia which can exacerbate RLS. It is unclear which medications for hyperkinetic movements of the legs are actually helpful and furthermore it is not easily to differentiate whether it is tardive akathisia or RLS. She has been on psychotropic medications that are known to cause akathisia such as abilify. She reports subjective sense of restlessness. Involuntary movement seems to be throughout the day. We will have to do trial of medications that target akathisia such as propanolol and ativan versus medications such as pramipexol for RLS (note that in RLS there is an initial relief with dopamine agonist but can make it worse over time). In addition, will try iron deficiency as it is an underlying cause and exacerbating factor in RLS. PLAN 11/14 continue tx. will monitor before making substantial changes every day. 11/15 continue tx. pt somatically preoccupied. 11/16: Continue current management and treatment plan. 11/17: continue current management and treatment plan. 11/18 start buspar 10mg po TID for SHEILA. continue all other meds. 11/19 increase buspar 20mg po TID 11/20 appears calmer, less somatically preoccupied. continue current medications. 11/21 sodium stable. continues to present as less dysphoric, calmer. reports of dizziness (VS not hotn nor orthostatic), ?vertigo, will try low dose of meclizine otherwise will consult hospitalist for further management. 8.2- pt more focused on gi issues- and anxiety/forgetfulness- continue to monitor somatic complaints- dc qid poc 11/25 will lowered ropinirole as it may increasing anxiety, noted that buspar was lowered, do not think this medication was causing fogginess as pt appeared much calmer since we added buspar. She was started on low dose clonazepam. 11/26 continue tx. received one time dose xanax, but reported feeling overly sedated (although did not appear sedated) 11/27 somatically p8: Continue current regimen and plansreoccupied, no change in medications. 11/29 continue tx. 11/30: Continue current regimen and plans 12/01: Continue current plans and regimen 12/02 increase buspar 20mg po TID. 12/03: reports depression not improving, c/o feeling low energy and motivation, saying she needs a sweet pickled fruit maker. start wellbutrin XL 150 daily tomorrow for depression. also c/o anxiety-provoking and nocturnally loud peer. schedule klonopin 0.25 QHS for insomnia. otherwise continue current mgmt. awaiting placement. 12/04: slept well last night, started wellbutrin this morning without incident. continue current mgmt. will be discharging to [facility]. 12/05: slept well. c/o anxiety at 3-330 in the afternoon. pt to ask for klonopin PRN at 2-230. trend anxiety, T/C DC of wellbutrin if anxiety seems reliably increased since starting it. dispo next week likely. 12/06: anxious. schedule klonopin 0.25 mg Qdaily at 1430 per pt request. otherwise continue current mgmt. 12/07: anxious and depressed. c/o insomnia. will give wellbutrin a few more days to see if insomnia subsides and mood improves. per staf, stable and uneventful presentation. 12/08: depressed. agreeable to increase wellbutrin to 300 mg as of tomorrow. otherwise continue current mgmt. sleeping well. 12/09: started wellbutrin 300 today. c/o URI Sx, start guaifenesin. otherwise continue current mgmt. 12/10: coughin much eves/NOC per staff. pt c/o not happy, cough, and poor sleep. continue mucinex and mental health Tx plan otherwise. 12/11/24: Patient appeared to slept for 8 hours, was medication compliant but refused the MiraLax. Denies side effects. She is observed watching TV in common area. Reported that she feel anxious and depressed. She is worry about when she is leaving as she is going to stay by herself. I am depressed . Self reports that she did not sleep well last night as roommate waking her up at night telling her that she saw dogs. She reports normal stomach pain. She would hope to see the GI doctor after discharge. She reported that she will be discharged on 12/17 but not sure the name of the facility or where it is located. Denies safety concerns, denies hallucinations. No coughing observed this morning. 12/12: c/o unremitting depression, saying she does not want to live like this. interested in ECT, educated re the procedure. obtain risk strat and EKG, discuss in rounds tomorrow morning. otherwise continue current mgmt. 12/13: continues to push for ECT. seen by hospitalist, no relative contraindications to the procedure. case d/w patient's daughter chantelle as well, who avers that pt has been in this state for a long time, it's only getting worse, and medications have not been helpful. johanna supports this trial on the wishes of her mother and MD's recommendation. ECT ordered, will get pt on the schedule as soon as possible. 12/14: Cough-productive, O2 sats are lower , CXR positive. Seen by hospitalist. Antibiotics initiated, R/O pneumonia 12/15: Pt unable to tolerate doxycycline. Hospitalist will change to Ceftin. 12/16: ECT held today due to januvia and respiratory virus. mood slightly improved. plan for ECT. 12/17: COVID and flu NEG. c/o nausea, exacerbation of chronic condition, h/o gastroparesis. holding januvia. start reglan for gastroparesis. continue current mgmt otherwise. NPO past MN for ECT tomorrow. 12/18: awaiting med clearance for ECT. planning for ECT monday. otherwise continue current mgmt. glucose noted to be elevated since holding januvia the past several days. 12/19 continue current medications. pt hopefull will have ECT tomorrow. NPO from midnight. 12/20 continue tx. Had ECT #1 no complications noted or reported. 12/21:Continue ECT. 12/22: Increase Klonopin PRN to BID. Otherwise continue current management and treatment plan. 12/23: continue current management and treatment plan. 12/24 continue tx. ECT tomorrow, NPO after midnight. 12/25 continue tx. 12/26: ECT #3 completed today. pleasant, feeling improved. Sz duration longer than prior but remains suboptimal. will DC gabapentin and decrease PRN klonopin to 0.125 mg per dose. next ECT monday. continue current mgmt otherwise. 12/28 Patient says she is all right and no complaints other than restless leg/akathisia which she says is bothering her. Discussed ECT and patient says she wants to continue getting ECT which she thinks is helpful and is why she wants to remain inpatient. Station Cashier agreed to: -order extra ropinrile 1mg daily prn 12/29Patient says she is so-so and Continues to have akathisia; patient benefitted somewhat from propranolol, which is preferable to increasing ropinirole (BP these mildly hypertensive; regular heart rate). Review of chart and patient was started on metoclopramide for diabetic gastroparesis. Discussed with patient who agrees to lowering metoclopramide; will increase propranolol and DC p.r.n. ropinirole -lower metoclopramide to 3 mg t.i.d. a.c.; (no N/V or constipation) -increase to propranolol 10 mg t.i.d. p.r.n. for restless leg -DC extra p.r.n. ropinirole 12/30: c/o restless legs. notes reviewed on the subject, plan noted. had ECT today, believes she is only having one more. anxiety Sx appear worse than prior, difficult to assess mood under the circumstances. continue current mgmt for now. 12/31: reglan DCed but still c/o RLS. requip Rx noted. ECT tomorrow. i don't feel down. NPO past MN, otherwise continue current mgmt. 01/01: stable, depression/anxiety lessened. awaiting ECT today. c/o RLS, plan to restart gabapentin after ECT course is finished. continue current mgmt otherwise. 01/02: appears more affectively flexible. reports mood OK. no somatic complaints or requests of MD. would like tomorrow's ECT, #6, to be her final of the series. continue current mgmt for now. NPO past MN. 01/03/2025 ECT held on 6. Consider restart if needed patient does appear open to this. Continue Wellbutrin and Cymbalta 01/04: continue, will explore whether or not to do additional ECT on Friday 01/05: will make NPO after midnight, patient aware - primary team may decide not to proceed with ECT tomorrow 01/06/2025 Low Wellbutrin to 150 mg secondary to anxiety and decreased appetite. restart ECT patient agreeable for better control and durability of symptoms 01/07: DC pramipexole in the morning, substitute with ropinirole, which pt also taking in substantial amount eves. 2 more ECTs, then planning to discharge 01/14. T/C maintenance ECT. decrease in wellbutrin noted, pt c/o poor appetite. 01/08: ECT today. feeling more disoriented after, return to electrode placement right temporal and left frontal. planning for weekly ECT fridays for the next 5 weeks as of tomorrow. DC wellbutrin for anorexia. case discussed with pt's daughter johanna. continue current mgmt otherwise. 01/09: mood remains improved, clearer-headed today. ready for ECT tomorrow. no complaints or requests. 01/11 stable; remains with somatic complaints 01/12CTP Patient educated on: diagnosis Informed Consent: understands Reason for continued inpatient stay Substantial Risk for: rapid decompensation Time Spent With Patient Time: Total time managing care of this patient today ____ minutes.
[2025-01-12 20:00] VITALS: BP 143/65; PULSE 98; RESP 18; TEMP 36.4; O2SAT 97
[2025-01-12 20:17] LABS: Glucose, Whole Blood 290 mg/dL (60-115)
[2025-01-13 06:56] LABS: Glucose, Whole Blood 242 mg/dL (60-115)
[2025-01-13 08:00] VITALS: BP 159/79; PULSE 99; RESP 16; TEMP 36.5; O2SAT 98
[2025-01-13] MEDS: buPROPion HCl XL 150 MG TAB.ER.24H PO (08:33)
[2025-01-13 08:34] VITALS: BP 159/79
[2025-01-13 08:35] VITALS: BP 179/79
[2025-01-13] MEDS: clonazePAM ODT 0.125 MG TAB.RAPDIS PO (10:28)
[2025-01-13 11:31] LABS: Glucose, Whole Blood 196 mg/dL (60-115)
--- NOTE | 2025-01-13 13:57 | PM.PSYDC ---
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 at imminent risk of harm to self or others Patient Instructions: Anxiety (ED) Discharge Date/Time: 01/14/25 10:51
[2025-01-13 16:36] LABS: Glucose, Whole Blood 89 mg/dL (60-115)
[2025-01-13 20:00] VITALS: BP 126/77; PULSE 94; RESP 18; TEMP 36.1; O2SAT 98
[2025-01-13] MEDS: Magnesium Hydrox/Alum Hydrox 30 ML ORAL.SUSP PO (20:22)
[2025-01-13 20:44] LABS: Glucose, Whole Blood 267 mg/dL (60-115)
[2025-01-14 08:25] VITALS: BP 147/61; PULSE 97; RESP 18; TEMP 36.4; O2SAT 96
[2025-01-14] MEDS: Fluticasone/Vilanterol 100/25 BLST.W.DEV 1 PUFF INHALE (08:57)
[2025-01-14] MEDS: buPROPion HCl XL 150 MG TAB.ER.24H PO (08:59)
[2025-01-14] MEDS: clonazePAM ODT 0.125 MG TAB.RAPDIS PO (09:32)
[2025-01-14] MEDS: Magnesium Hydrox/Alum Hydrox 30 ML ORAL.SUSP PO (10:08)
== END 2025-01-14 10:51 | DRG 885 ==
LOC: HO.ED 23:38 → HO.PGERI 10-21 16:42
PROVIDERS: Clinical Nurse Specialist Psychiatric/Mental Health, Adult; Nurse Practitioner Family; Physician Assistant Medical; Psychiatry & Neurology Psychiatry; Social Worker; Admitting Provider Nurse Practitioner Psychiatric/Mental Health; Emergency Provider Emergency Medicine; Visit Provider Psychiatry & Neurology Psychiatry
PROC: GZB4ZZZ Other Electroconvulsive Therapy (ICD-10-PCS; CPT 90870; principal; 2024-12-20 07:30)
DX: F33.1 Major depressive disorder, recurrent, moderate (principal); J18.9 Pneumonia, unspecified organism; R45.851 Suicidal ideations; J98.11 Atelectasis; N39.0 Urinary tract infection, site not specified; F01.A18 Vascular dementia, mild, with other behavioral disturbance; E11.42 Type 2 diabetes mellitus with diabetic polyneuropathy; F41.1 Generalized anxiety disorder; G25.81 Restless legs syndrome; E11.43 Type 2 diabetes mellitus with diabetic autonomic (poly)neuropathy; K31.84 Gastroparesis; I10 Essential (primary) hypertension; E78.5 Hyperlipidemia, unspecified; K59.00 Constipation, unspecified; D25.9 Leiomyoma of uterus, unspecified; S01.81XA Laceration without foreign body of other part of head, initial encounter; W19.XXXA Unspecified fall, initial encounter; Z91.81 History of falling; Y92.238 Other place in hospital as the place of occurrence of the external cause; Z20.822 Contact with and (suspected) exposure to COVID-19; Z86.19 Personal history of other infectious and parasitic diseases; Z87.891 Personal history of nicotine dependence; Z79.51 Long term (current) use of inhaled steroids; Z79.84 Long term (current) use of oral hypoglycemic drugs; Z79.899 Other long term (current) drug therapy
CPT/HCPCS: 36415; 70450; 71046; 72125; 73502; 74018; 74176; 80048; 80053; 80061; 80156; 80307; 81001; 82803; 82947; 83036; 83540; 83605; 83690; 83735; 83930; 83935; 84300; 84439; 84443; 85025; 86481; 87086; 87502; 87635; 90870; 93005; 94799; 97161; 97162; 99285; 99499; J0330; J1596; J1805; J1920; J2250; J2405; J2704; J7120; S9485

== ENCOUNTER → 2024-10-21 11:27 | Outpatient (BNV) | payer OTHER, SELFPAY | PROVIDERS: Emergency Provider Emergency Medicine; Visit Provider Internal Medicine Cardiovascular Disease | DX: Z13.6 Encounter for screening for cardiovascular disorders (principal) | CPT/HCPCS: 93010 ==

== ENCOUNTER 2024-10-21 16:32 | Outpatient (BNV) | payer OTHER, SELFPAY | END 2024-12-12 13:35 | PROVIDERS: Admitting Provider Nurse Practitioner Psychiatric/Mental Health; Emergency Provider Emergency Medicine; Visit Provider Internal Medicine Cardiovascular Disease | DX: Z13.6 Encounter for screening for cardiovascular disorders (principal) | CPT/HCPCS: 93010 ==

== ENCOUNTER 2024-10-21 16:32 | Outpatient (BNV) | payer OTHER, SELFPAY | END 2024-11-02 20:04 | PROVIDERS: Admitting Provider Nurse Practitioner Psychiatric/Mental Health; Emergency Provider Emergency Medicine; Visit Provider Radiology Diagnostic Radiology | DX: K56.41 Fecal impaction (principal); J90 Pleural effusion, not elsewhere classified; D25.9 Leiomyoma of uterus, unspecified | CPT/HCPCS: 74176 ==

== ENCOUNTER 2024-10-21 16:32 | Outpatient (BNV) | payer OTHER, SELFPAY | END 2024-11-05 11:00 | PROVIDERS: Admitting Provider Nurse Practitioner Psychiatric/Mental Health; Emergency Provider Emergency Medicine; Visit Provider Radiology Diagnostic Radiology | DX: M25.552 Pain in left hip (principal); W19.XXXA Unspecified fall, initial encounter | CPT/HCPCS: 73502 ==

== ENCOUNTER 2024-10-21 16:32 | Outpatient (BNV) | payer OTHER, SELFPAY | END 2024-11-06 09:20 | PROVIDERS: Admitting Provider Nurse Practitioner Psychiatric/Mental Health; Emergency Provider Emergency Medicine; Visit Provider Radiology Diagnostic Radiology | DX: K59.00 Constipation, unspecified (principal) | CPT/HCPCS: 74018 ==

== ENCOUNTER 2024-10-21 16:32 | Outpatient (BNV) | payer OTHER, SELFPAY | END 2024-11-08 14:58 | PROVIDERS: Admitting Provider Nurse Practitioner Psychiatric/Mental Health; Emergency Provider Emergency Medicine; Visit Provider Radiology Diagnostic Radiology | DX: R22.0 Localized swelling, mass and lump, head (principal) | CPT/HCPCS: 70450 ==

== ENCOUNTER 2024-10-21 16:32 | Outpatient (BNV) | payer OTHER, SELFPAY | END 2024-11-04 16:58 | PROVIDERS: Admitting Provider Nurse Practitioner Psychiatric/Mental Health; Emergency Provider Emergency Medicine; Visit Provider Radiology Diagnostic Radiology | DX: S09.90XA Unspecified injury of head, initial encounter (principal); W19.XXXA Unspecified fall, initial encounter | CPT/HCPCS: 70450; 72125 ==

== ENCOUNTER 2024-10-21 16:32 | Outpatient (BNV) | payer OTHER, SELFPAY | END 2024-12-14 08:56 | PROVIDERS: Admitting Provider Nurse Practitioner Psychiatric/Mental Health; Emergency Provider Emergency Medicine; Visit Provider Radiology Diagnostic Radiology | DX: R05.9 Cough, unspecified (principal); R09.89 Other specified symptoms and signs involving the circulatory and respiratory systems; J69.8 Pneumonitis due to inhalation of other solids and liquids | CPT/HCPCS: 71046 ==

== ENCOUNTER → 2024-10-21 16:32 | Outpatient (BNV) | payer OTHER, SELFPAY | PROVIDERS: Admitting Provider Nurse Practitioner Psychiatric/Mental Health; Emergency Provider Emergency Medicine; Visit Provider Nurse Practitioner Family | DX: E87.1 Hypo-osmolality and hyponatremia (principal) | CPT/HCPCS: 99221 ==

== ENCOUNTER → 2024-10-21 16:32 | Outpatient (BNV) | payer OTHER, SELFPAY | PROVIDERS: Admitting Provider Nurse Practitioner Psychiatric/Mental Health; Emergency Provider Emergency Medicine; Visit Provider Nurse Practitioner Psychiatric/Mental Health | DX: F33.1 Major depressive disorder, recurrent, moderate (principal); F41.9 Anxiety disorder, unspecified; G25.81 Restless legs syndrome; K31.84 Gastroparesis | CPT/HCPCS: 90792; 99232 ==

== ENCOUNTER → 2024-10-21 16:32 | Outpatient (BNV) | payer OTHER, SELFPAY | PROVIDERS: Admitting Provider Nurse Practitioner Psychiatric/Mental Health; Emergency Provider Emergency Medicine; Visit Provider Psychiatry & Neurology Psychiatry | DX: F33.2 Major depressive disorder, recurrent severe without psychotic features (principal) | CPT/HCPCS: 90870 ==

== ENCOUNTER → 2024-10-21 16:32 | Outpatient (BNV) | payer OTHER, SELFPAY | PROVIDERS: Admitting Provider Nurse Practitioner Psychiatric/Mental Health; Emergency Provider Emergency Medicine; Visit Provider Nurse Practitioner Family | DX: K31.84 Gastroparesis (principal) | CPT/HCPCS: 99222; 99499 ==

== ENCOUNTER 2025-01-15 21:46 | Emergency (ER) | payer OTHER, SELFPAY ==
--- NOTE | 2025-01-15 | ECG_ITS ---
Test Reason : DIZZINESS Blood Pressure : */* mmHG Vent. Rate : 89 BPM Atrial Rate : 89 BPM P-R Int : 114 ms QRS Dur : 64 ms QT Int : 356 ms P-R-T Axes : 49 42 78 degrees QTcB Int : 433 ms Normal sinus rhythm Normal ECG When compared with ECG of 12-Dec-2024 13:35, No significant change was found Referred By: Generic ED Physician Electronically Signed By: Lucho Montes
[2025-01-15 21:57] VITALS: BP 136/72; BP 182/100; PULSE 95; PULSE 98; RESP 15; TEMP 36.7; O2SAT 98; O2SAT 99
[2025-01-15 22:00] VITALS: BP 136/72; PULSE 92; RESP 18; O2SAT 98; BMI 28.1
[2025-01-15 22:18] LABS: Glucose, Whole Blood 159 mg/dL (60-115)
[2025-01-15 22:24] LABS: MANUAL DIFF FLAG NO
[2025-01-15 22:26] LABS: Hematocrit 29.1 % (37.0-47.0); Hemoglobin 10.3 g/dl (12.0-16.0); Imm Gran Abs Auto 0.02 X10*3/uL (0.00-0.03); Imm Gran Pct Auto 0.3 % (0.0-0.4); Lymphocytes Absolute Auto 2.0 X10*3/uL (1.2-4.9); Mean Corpuscular HGB Conc 35.4 g/dl (31.0-35.0); Mean Corpuscular Hemoglobin 29.9 pg (27.0-33.0); Mean Corpuscular Volume 84.6 fL (80.0-98.0); NRBC Abs Auto 0.000 X10*3/uL (0.0-0.012); NRBC Pct Auto 0.0 /100WBC (0.0-0.2); Platelet Count 216 X10*3/uL (160-400); Red Blood Count 3.44 X10*6/uL (4.20-5.50); White Blood Count 7.7 X10*3/uL (4.8-10.8)
[2025-01-15 22:38] LABS: Anion Gap 12 (12-20); Blood Urea Nitrogen 27 mg/dL (9-16); Calcium 9.2 mg/dL (8.4-10.2); Carbon Dioxide 22 mmol/L (22-29); Chloride 108 mmol/L (96-108); Creatinine Clr Calc Pharmacy 20.6; Estimated Glomerular Filt Rate 29; Magnesium 2.1 mg/dL (1.6-2.6); Potassium 4.0 mmol/L (3.3-5.1); Sodium 138 mmol/L (135-145)
--- OUTSIDE RECORDS SUMMARY | 2025-01-15 22:41 | XMS_ITS | Clinical Summary ---
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 Name Role Phone Unavailable Primary Care Provider [...] Description 02/04/2025 10:20 AM EDT Office Visit [facility] [address] [place] [phone] Yash Garcias, [facility] [address] [place] [address] Health Maintenance Due Date Last Done Comments Hepatitis C Screening 1945 Medicare Annual Wellness Visit 12/24/1965 Imm-Zoster, Recombinant (2 of 3) 07/19/2010 05/24/19 11 Bone Density Screening 12/24/2012 Falls Prevention 12/24/2012 Imm-RSV (adult) (1 - 1-dose 75+ series) 12/24/2022 Dental BW 12/12/2023 12/09/2022 Alcohol and Drug Screen 04/24/2024 Depression Annual Screen 04/24/2024 Oem-[id number] ( season) 2024 021 Imm-Influenza (#1) 2024 [...] Most Recently Relevant to Health Maintenance Insurance [facility]
--- OUTSIDE RECORDS SUMMARY | 2025-01-15 22:41 | XMS_ITS | Clinical Summary ---
Author Organization [facility] Address [address] [place] [address] Phone Care Team Providers Care Dial Lathe Operator Name Role Phone Jose Kang MD Primary Care Provider Un available Allergies Active Allergy Reactions Criticality Noted Date Comments Ampicillin Rash Medium 02/25/2020 Aspirin GI intolerance Medium 12/16/2020 High dose, stomach ache Morphine Sulfate Nausea And Vomiting Medium 05/12/2011 Penicillins Rash Medium 05/12/2011 Medications blood-glucose meter misc Use to test blood sugar twice daily 4 Active Lacto 41/B.animalis,b ifid/FOS (ULTIMATE PROBIOTIC-10 ORAL) Take 1 Tablet by mouth daily. 4 Active acetaminophen (TYLENOL) 325 mg tablet Take 2 Tablets by mouth every 6 hours as needed. Active fluticasone propionate (FLONASE) 50 mcg/actuation nasal spray 1 Clint by Nasal route daily. 4 Active sertraline [...] test blood sugar twice daily. One touch delTrippin In brand. 200 each 1 5 Active melatonin [...] each 3 5 Active blood sugar diagnostic (Food Quality Sensor InternationalTouch Verio test strips) test strip USE TO [...] unspecified laterality 025 Diarrhea 06/04/2024 Diabetic gastroparesis ([facility] V24, [facility] V28 ) 08/22/2022 Assessment & Plan (10/17/2024 7:33 PM EDT): Will get gastroenterology on board. Advised her to use pantoprazole for now for acid reflux. Will check her A1c for diabetes. Orders: Hemoglobin A1c; Future Microalbumin creatinine urine ratio; Future Ambulatory referral to Gastroenterology; Future Obstructive sleep apnea 04/26/2021 Overview (02/01/2024): [facility] Home sleep test 04/21/2021; weight [...] 2 diabetes mellitus wit h renal manifestations ([facility] V24, [facility] V28) 04/11/2019 Asthma-COPD overlap syndrome ([facility] V24, [facility] V28) 03/01/2018 Chronic obstructive pulmonar y disease ([facility] V24, [facility] V28) 03/01/2018 Pulmonary nodules 03/01/2018 Lung bullae ([facility] V24, [facility] V28) 8 Type II or unspecified type diabetes mellitus with ophthalmic manifestations, uncontrolled(250.52) ([facility] V24, [facility] V28) 08/22/2017 CKD (chronic kidney disease) stage 3, GFR 30-59 ml/min ([facility] V24, [facility] V28) 05/30/2017 Cataract 07/19/2016 Overview (02/01/2024): bilat Type 2 diabetes mellitus wit h cataract ([facility] V24, [facility] V28) 07/19/2016 Asthma 07/28/2015 Depression 07/28/2015 [...] Team Description 01/07/2025 [facility] [address] [place] [address] [place] [phone] Jose Kang MD 12/10/2024 Telephone Internal Medicine - [address] [phone] Jose Kang MD 11/28/2024 Billing Patient Not Present Internal Medicine - [address] [phone] Jose Kang MD Age-related cognitive decline (Primary Dx); Generalized anxiety disorder; Gastroparesis; Anxiety disorder, unspecified type; Insomnia due to other mental disorder; Major depressive disorder, recurrent, moderate (CMS/HCC V24, CMS/HCC V28) 11/22/2024 Telephone Internal Medicine - [address] [phone] Jose Kang MD 10/31/2024 Telephone Gastroenterology - [place] [facility] [address] [facility] [address] [place] [id number] Nay Chilel PA 10/18/2024 7:07 PM EDT - 10/19/2024 12:35 AM EDT Emergency [facility] Emergency [address] [place] [address] Ananth Syed MD Epigastric pain (Primary Dx) Discharge Disposition: Home or Self Care 10/17/2024 2:45 PM EDT Office Visit Internal Medicine - [facility] [address] [place] [phone] Jose Kang MD Dizziness (Primary Dx); RLS (restless legs syndrome); Akathisia; Diabetic gastroparesis ([facility] V24, [facility] V28); Hypertension, unspecified type from Last 3 Months Immunizations Name Administration Dates Next Due Diptheria & Tetanus, 6wks to less than 7yo 12/09/2005 Influenza trivalent, 0.5mL ( Fluzone High-dose) 65yo and older 01/26/2023,01/21/2021,01/22/2020,01/17 Influenza, Unspecified 01/05/2022,01/27/2017 PPD Test 02/21/2018,01/31/2018 [employer] SARS-CoV-2 COVID-19, mRNA, LNP-S, preservative free 01/23/2021 [...] Type 2 diabetes mellitus wit h cataract ([facility] V24, [facility] V28) 07/19/2016 DX:Type 2 diabetes mellitus with cataract (HCC) Lung nodule DX:Lung nodule Type 2 diabetes mellitus wit h renal manifestations ([facility] V24, [facility] V28) 08/22/2017 DX:Type 2 diabetes mellitus with renal manifestations (HCC) CKD (chronic kidney disease) stage 3, GFR 30-59 ml/min ([facility] V24, [facility] V28) 05/30/2017 DX:CKD (chronic kidney disea se) stage 3, GFR 30-59 ml/min ([facility]) DM (diabetes mellitus), type 2, uncontrolled w/ophthalmic complication 08/22/2017 DX:DM (diabetes mellitus), type 2, uncontrolled w/ophthalmic complication Gastroparesis DIABETIC GP COPD (chronic obstructive pu lmonary disease) ([facility] V24, [facility] V28) JARETT on CPAP Family History Medical History Relation Name Comments Other: murdered Brother 1 Lex age 46 in [place] Other: sepsis Brother 2 He 67 s/p [...] care for your loved ones. For example, children's service worker or elderly care for an older adult? [...] AM EDT Office Visit Internal Medicine - [address] [phone] Smiley Faustin NP [address] [place] [id number] Health Maintenance Due Date Last Done Comments [...] screening mammogram for malignant neoplasm of breast HM URINE ALBUMIN CREATININE RATIO Routine 07/27/2023 HM COLONOSCOPY Routine 01/18/2023 DXA BONE DENSITY STUDY 1+ SITS AXIAL SKEL Routine 12/29/2022 2:41 PM EDT Encounter for screening for osteoporosis HEPATITIS C SCREENING Routine 04/05/2016 from Last 3 Months or Most Recently Relevant to Health Maintenance Results * ECG-Annotated (10/19/2024) us Provider Onbase MD ECG ORDERABLES Final Result * Troponin I high sensitivity (10/18/2024 9:32 PM EDT) Only the most recent of2 resultswithin the time period is included. High Sensitivity Troponin I 4 <=54 ng/L LAB CHEMISTRY METHOD 10/18/2024 10:13 PM EDT [facility] Blood Venous blood specimen / Unknown Venipuncture / Unknown 10/18/2024 9:32 PM EDT 10/18/2024 9:46 PM EDT Narrative [facility] - 10/18/2024 10:13 PM EDT High levels of biotin in samples may falsely decrease hsTroponin values. Use caution when interpreting hsTroponin results in patients taking biotin who exhibit renal impairment (eGFR <60) or in patients taking more than 20 mg/day of biotin. Ananth Syed MD LAB BLOOD ORDERABLES Final Result [facility] [address] [place] [address], [place] [phone] * CT Abdomen Pelvis w Contrast (10/18/2024 [...] by: Maryan Zamora MD on 10/18/2024 20:52:33 Ananth Syed MD IM CT PROCEDURES Final Res ult * Lactate, with reflex (10/18/2024 8:23 PM EDT) LACTIC ACID 0.8 0.4 - 2.0 mmol/L LAB CHEMISTRY METHOD 10/18/2024 9:28 PM EDT [facility] Blood Venous blood specimen / Unknown Venipuncture / Unknown 10/18/2024 8:23 PM EDT 10/18/2024 8:57 PM EDT us Ananth Syed MD LAB BLOOD ORDERABLES Final Result [facility] [address] [place] [address], [place] [phone] * (ABNORMAL) Urinalysis with reflex microscopic and culture (10/18/2024 8:02 PM EDT) Pathologist [facility] Specific [place] Urine 1.009 1.003 - 1.030 LAB URINALYSIS - AUTOMATED METHOD [facility] pH, Urine 7.5 5.0 - 8.0 pH LAB URINALYSIS - AUTOMATED METHOD 10/18/2024 8:19 PM [facility] Leukocytes, Urine Small(A) Negative LAB URINALYSIS - AUTOMATED METHOD 10/18/2024 8:19 PM [facility] Nitrite, Urine Negative Negative LAB URINALYSIS - AUTOMATED METHOD 10/18/2024 8:19 PM [facility] Protein, Urine Negative <=Trace mg/dL LAB URINALYSIS - AUTOMATED METHOD 10/18/2024 8:19 PM [facility] Glucose, Urine Negative Negative mg/dL LAB URINALYSIS - AUTOMATED METHOD 10/18/2024 8:19 PM [facility] Ketones, Urine Negative Negative mg/dL LAB URINALYSIS - AUTOMATED METHOD 10/18/2024 8:19 PM [facility] Urobilinogen, Urine 0.2 0.2 - 1.0 mg/dL LAB URINALYSIS - AUTOMATED METHOD 10/18/2024 8:19 PM [facility] Bilirubin, Urine Negative Negative LAB URINALYSIS - AUTOMATED METHOD 10/18/2024 8:19 PM [facility] Blood, Urine Negative Negative LAB URINALYSIS - AUTOMATED METHOD 10/18/2024 8:19 PM EDT [facility] RBC, Urine 0.3 0 - 4 /HPF LAB URINALYSIS - AUTOMATED METHOD 10/18/2024 8:19 PM EDT [facility] WBC, Urine 3.0 0 - 4 /HPF LAB URINALYSIS - AUTOMATED METHOD 10/18/2024 8:19 PM EDT [facility] Squamous Epithelial, Urine 8 0 - 60 /LPF LAB URINALYSIS - AUTOMATED METHOD 10/18/2024 8:19 PM EDT [facility] Bacteria, Urine Negative Negative /HPF LAB URINALYSIS - AUTOMATED METHOD 10/18/2024 8:19 PM EDT [facility] Hyaline Casts, Urine 0.0 0 - 3 /LPF LAB URINALYSIS - AUTOMATED METHOD 10/18/2024 8:19 PM EDT [facility] Urine Urine specimen obtained by clean catch procedure / Unknown Non-blood Collection / Unknown 10/18/2024 8:02 PM EDT 10/18/2024 8:08 PM EDT us Ananth Syed MD LAB URINE ORDERABLES Final Result [facility] [address] [place] [address], * Sawant urine culture tube (10/18/2024 8:02 PM EDT) Extra Tube Hold for add-ons. 10/18/2024 10:02 PM EDT [facility] Comment:Auto resulted. Urine Urine specimen obtained by clean catch procedure / Unknown Non-blood Collection / Unknown 10/18/2024 8:02 PM EDT 10/18/2024 8:08 PM EDT us Ananth Syed MD LAB URINE ORDERABLES Final Result Performing Organization Address City/[facility]/ZIP Co de Phone Number [facility] [address] [place] [address], [place] [phone] * Culture urine (10/18/2024 8:02 PM EDT) Pathologist [facility] Culture, Urine 50,000-99,000 CFU/mL Mixed urogenital karon, no uropathogens present. Suggest repeat specimen if clinically indicated. 10/19/2024 12:50 PM EDT [facility] Urine Urine specimen obtained by clean catch procedure / Unknown Non-blood Collection / Unknown 10/18/2024 8:02 PM EDT 10/18/2024 8:19 PM EDT us Ananth Syed MD LAB MICROBIOLOGY - GENERAL ORDERABLES Final Result Performing Organization Address [facility]/ZIP Co de Phone Number [facility] [address] [place] [address], [place] [phone] * CBC auto differential (10/18/2024 7:28 PM EDT) [facility] WBC 6.2 4.8 - 10.8 K/mcL LAB HEMETOLOGY METHOD 10/18/2024 7:49 PM EDT [facility] RBC 4.10 3.80 - 4.80 M/mcL LAB HEMETOLOGY METHOD 10/18/2024 7:49 PM EDT [facility] Hemoglobin 11.9 11.5 - 16.0 g/dL LAB HEMETOLOGY METHOD 10/18/2024 7:49 PM EDT [facility] Hematocrit 35.6 35.0 - 47.0 % LAB HEMETOLOGY METHOD 10/18/2024 7:49 PM EDT [facility] MCV 87.5 79.0 - 98.0 FL LAB HEMETOLOGY METHOD 10/18/2024 7:49 PM EDT [facility] MCH 29.2 27.0 - 32.0 pcg LAB HEMETOLOGY METHOD 10/18/2024 7:49 PM EDT [facility] MCHC 33.4 32.0 - 37.0 g/dL LAB HEMETOLOGY METHOD 10/18/2024 7:49 PM [facility] RDW 13.4 11.0 - 15.0 % LAB HEMETOLOGY METHOD 10/18/2024 7:49 PM EDT [facility] Platelets 245 130 - 400 K/mcL LAB HEMETOLOGY METHOD 10/18/2024 7:49 PM [facility] MPV 9.2 7.0 - 11.0 FL LAB HEMETOLOGY METHOD 10/18/2024 7:49 PM [facility] NRBC 0.0 <1.0 % LAB HEMETOLOGY METHOD 10/18/2024 7:49 PM [facility] NRBC Absolute 0.00 <0.10 K/mcL LAB HEMETOLOGY METHOD 10/18/2024 7:49 PM [facility] Neutrophils Relative 55.8 % LAB HEMETOLOGY METHOD 10/18/2024 7:49 PM [facility] Lymphocytes Relative 28.5 % LAB HEMETOLOGY METHOD 10/18/2024 7:49 PM [facility] Monocytes Relative 12.9 % LAB HEMETOLOGY METHOD 10/18/2024 7:49 PM [facility] Eosinophils Relative 1.9 % LAB HEMETOLOGY METHOD 10/18/2024 7:49 PM [facility] Basophils Relative 0.6 % LAB HEMETOLOGY METHOD 10/18/2024 7:49 PM [facility] Immature Granulocytes Relative 0.3 % LAB HEMETOLOGY METHOD 10/18/2024 7:49 PM [facility] Neutrophils Absolute 3.47 1.50 - 7.00 K/mcL LAB HEMETOLOGY METHOD 10/18/2024 7:49 PM EDT [facility] Lymphocytes Absolute 1.77 1.00 - 5.00 K/mcL LAB HEMETOLOGY METHOD 10/18/2024 7:49 PM EDT [facility] Monocytes Absolute 0.80 0.20 - 1.00 K/mcL LAB HEMETOLOGY METHOD 10/18/2024 7:49 PM EDT [facility] Eosinophils Absolute 0.12 0.00 - 0.50 K/[facility] LAB HEMETOLOGY METHOD 10/18/2024 7:49 PM EDT [facility] Basophils Absolute 0.04 0.00 - 0.20 K/mcL LAB HEMETOLOGY METHOD 10/18/2024 7:49 PM EDT [facility] Immature Granulocytes Absolute 0.02 0.00 - 0.03 K/[facility] LAB HEMETOLOGY METHOD 10/18/2024 7:49 PM EDT [facility] Blood Venous blood specimen / Unknown Venipuncture / Unknown 10/18/2024 7:28 PM EDT 10/18/2024 7:41 PM EDT Ananth Syed MD LAB BLOOD ORDERABLES Final Result [facility] [address] [place] [address], * Lipase (10/18/2024 7:28 PM EDT) Lipase 38 13 - 75 unit/L LAB CHEMISTRY METHOD 10/18/2024 8:06 PM EDT [facility] Blood Venous blood specimen / Unknown Venipuncture / Unknown 10/18/2024 7:28 PM EDT 10/18/2024 7:41 PM EDT us Ananth Syed MD LAB BLOOD ORDERABLES Final Result [facility] [address] [place] [address], * (ABNORMAL) Comprehensive metabolic panel (10/18/2024 7:28 PM EDT) Sodium 137 133 - 145 mmol/L LAB CHEMISTRY METHOD [facility] Potassium 4.5 3.5 - 5.5 mmol/L LAB CHEMISTRY METHOD 10/18/2024 8:08 PM [facility] Chloride 103 96 - 110 mmol/L LAB CHEMISTRY METHOD 10/18/2024 8:08 PM [facility] CO2 25 21 - 32 mmol/L LAB CHEMISTRY METHOD 10/18/2024 8:08 PM [facility] Anion Gap 9 3 - 11 LAB CHEMISTRY METHOD 10/18/2024 8:08 PM [facility] Glucose 100 70 - 100 mg/dL LAB CHEMISTRY METHOD 10/18/2024 8:08 PM [facility] BUN 23 5 - 25 mg/dL LAB CHEMISTRY METHOD 10/18/2024 8:08 PM [facility] Creatinine 1.08 0.50 - 1.10 mg/dL LAB CHEMISTRY METHOD 10/18/2024 8:08 PM [facility] eGFR 53(L) >=60 mL/min/1. 73m2 LAB CHEMISTRY METHOD 10/18/2024 8:08 PM [facility] Comment:Calculation based on the Chronic Kidney Disease Epidemiology Collaboration (CKD-EPI) equation refit without adjustment for race. BUN/Creatinine Ratio 21.3 LAB CHEMISTRY METHOD 10/18/2024 8:08 PM [facility] Calcium 9.8 8.5 - 10.5 mg/dL LAB CHEMISTRY METHOD 10/18/2024 8:08 PM EDT [facility] AST (SGOT) 16 10 - 42 unit/L LAB CHEMISTRY METHOD 10/18/2024 8:08 PM EDT [facility] ALT (SGPT) 36 10 - 60 unit/L LAB CHEMISTRY METHOD 10/18/2024 8:08 PM EDT [facility] Alkaline Phosphatase 80 42 - 121 unit/L LAB CHEMISTRY METHOD 10/18/2024 8:08 PM EDT [facility] Total Protein 7.3 6.0 - 8.0 g/dL LAB CHEMISTRY METHOD 10/18/2024 8:08 PM EDT [facility] Albumin 4.1 3.2 - 5.0 g/dL LAB CHEMISTRY METHOD 10/18/2024 8:08 PM [facility] Total Bilirubin 0.5 0.0 - 1.4 mg/dL LAB CHEMISTRY METHOD 10/18/2024 8:08 PM EDT [facility] Blood Venous blood specimen / Unknown Venipuncture / Unknown 10/18/2024 7:28 PM EDT 10/18/2024 7:41 PM EDT Ananth Syed MD LAB BLOOD ORDERABLES Final Result [facility] [address] [place] [address], * Hemoglobin A1c (01/26/2024) Hemoglobin A1C 6.5 <=6.5 % Blood Venous blood specimen / Unknown Historical Provider LAB BLOOD ORDERABLES Piedad l Result * Lipid panel (01/26/2024) LDL/HDL Ratio 3 0 - 4 Triglycerides 106 0 - 150 mg/dL Cholesterol 121 0 - 200 mg/dL HDL 49 >=40 mg/dL LDL Cholesterol 51 0 - 100 mg/dL Blood Venous blood specimen / Unknown us Historical Provider LAB BLOOD ORDERABLES Piedad walls Result * SCREENING MAMMOGRAPHY BI 2-VIEW BREAST [...] esult * Urine Albumin Creatinine Ratio (07/27/2023) Pathologist [facility] Urine Albumin Creatinine Ratio Abstracted Historical Provider HEALTH MAINTENANCE Final Result * Colonoscopy (01/18/2023) Pathologist [facility] Colonoscopy No Interpretation , Abstracted Anatomical Region Laterality Modality Other Historical Provider [facility] Final Result * DXA BONE DENSITY STUDY [...] (World Health Organization Fracture Risk Assessment) The [facility] Department of Internal Medicine recommends using [...] alternative screening schedule based on cresencio Dickson., [facility] May 12, 2011 for patients with osteopenia [...] years. (World HealthOrganization Fracture Risk Assessment) The [facility] Department of Internal Medicine recommendsusing National [...] FRAX. Optional alternative screening schedule based on camilla Dickson al., [facility] for patients with osteopenia (based on hip BMD T-score) is as follows: * advanced osteopenia (T scores -2.00 to -2.49), BMD testing every year * moderate osteopenia (T scores -1.50 to -1.99), BMD testing every 5years mild osteopenia or normal BMD (T scores -1.50 and higher), BMD testingevery 15 years Jose Kang MD IMG DXA PROCEDURES Final Result * Hepatitis C Screening (04/05/2016) [facility] Hepatitis C Screening Abstracted Historical Provider HEALTH MAINTENANCE Final Result from Last 3 Months or Most Recently Relevant to Health Maintenance Insurance [facility] MEDICARE Member Subscriber Plan / Payer (Ef fective 2023-Present) Name:Bailee Barreto Relation to Subscriber:Self Name:Bailee Barreto Payer ID:[id number] Group ID:[id number] Type:Not on file Address: [place] [address] [address] [id number] Advance Directives Documents on File Type Date Recorded Patient Decorator Street And Building Expl anation Health Care Decision (hx) 06/13/2023 [...] (hx) 06/13/2023 AD HALEY DIRECTIVE Care Teams Dial Lathe Operator Relationship Specialty Start Date End Date Jose Kang MD PCP - General Internal Medicine 02/13/20
--- OUTSIDE RECORDS SUMMARY | 2025-01-15 22:41 | XMS_ITS | Encounter Summary ---
Author Organization [facility] Address [address] [place] [address] Encounters * CPT with Medical [facility] at [facility] on 2025-01-16 Member calling in due to overall feeling of unwellness. Member is supposed to have procedure done tomorrow and has one of her diabetes medications on hold due to this. Member states her BS is elevated. Member had a visiting nurse there earlier today and was told her BP was elevated but did not giveher the exact reading. Member also with c/o feeling dizzy and nauseous. { reasonForRequest : dizziness, weakness, nausea, vomiting , patientReports : , denies :[], chiefComplaints : Diabetes Related, Weakness, Dizziness, Nausea / Vomiting, High Blood Pressure , pmh : Severe PersistentMental Illness (SPMI), Hypertension, COPD/Asthma, Diabetes Mellitus Type 2 , allergies&quo t;: Morphine, Aspirin, Penicillins, Ampicillin , otherAllergies :null, pain Assessment : , visitOutcome : , additionalComments :"HPI reviewed } Encountered patient conscious, alert and ambulatory. Patient states she has been feeling unwell for most of the day and attributes the symptoms to her physician stopping her Jenuvia in anticipation of a procedure patient will be undergoing on 01/17/25. Patient states that about approximately a half hour prior to contact, she began experiencing blurry vision and a headache the back of my head feels very heavy, like a pressure, it's so tight right now. FSBS 214 mg/DL. Stroke assessment yields no pronator drift, no slurred speech, no unilateral weakness and no facial droop; patient expresses feeling 'unsteady' on her feet despite exhibiting a non-ataxic gait. 18g IV established in right wrist. Skin warm, dry and of appropriate color for ethnicity. Head and neck, free of trauma and edema. -JVD. Breath sounds present, clear and equal bilaterally. Abdomen is soft, non-tender and non-distended. Extremities free of trauma and edema. [facility] contacted: states patient should be seen emergently at a local stroke center for evaluation. 911 was arranged by this documentation writer, on patients behalf. Patient care relinquished to [facility] ALS crew with verbal report given, transport destination [facility]. IV_(FLUIDS_AND/OR_MEDICATION), MEDICATION_IM, ORAL_MEDICATION, EKG, POC_BLOODWORK, GLUCOSE, URINE_DIPSTICK, WOUND_CARE, ORTHOSTATIC_VITAL_SIGNS, PO_MEDICATION Written by Medical [facility] on 2025-01-16
--- OUTSIDE RECORDS SUMMARY | 2025-01-15 22:41 | XMS_ITS | Continuity of Care Document ---
Author Name inst[facility], Medical Address [address] [place] [id number] Organization Unknown Address [address] [place] [address] Medications No known medications Problems No known problems
--- NOTE | 2025-01-15 22:58 | PC.NURSE ---
this rn assumed care of pt, pt resting in stretcher offers no complaints at this time, awaiting ed doc.
[2025-01-15 23:21] LABS: Troponin-I High Sensitivity 11.4 ng/L (<3.5-17.0)
--- NOTE | 2025-01-15 23:33 | ED_ITS ---
HPI - General Adult General Chief complaint: General Medical Stated complaint: Htn, headache, nausea Time Seen by Provider: 01/15/25 23:25 Source: patient Mode of arrival: ambulatory Limitations: no limitations History of Present Illness ED Provider: Dr. Lester HPI narrative: This is a 79-year-old female no medical history presented hospital today for intermittent vertiginous symptoms. Patient stated that she has been feeling very nauseous and dizzy. She describes as the room is spinning. Is worse with movement. She does not have these symptoms when she is lying flat and still. She is complaining of some headache as well. No sign of weakness in her upper or lower extremities. No sensation changes. No history of vertigo in the past. Related Data Previous Rx's ?Medication ?Instructions ?Recorded Breo Ellipta 100 mcg-25 mcg/dose 1 ea inhalation DAILY 30 days #1 01/10/25 powder for inhalation (fluticasone inhaler furoate-vilanterol) acetaminophen 325 mg tablet 650 mg (2 x 325 mg) PO Q6H PRN 01/10/25 Headache/Pain, Scale 1-10 30 days #90 tabs albuterol sulfate 90 mcg/actuation 2 puff inhalation Q 4-6H PRN 01/10/25 aerosol inhaler Shortness Of Breath Or Wheez ing 30 days #1 inhaler aluminum-magnesium hydroxide 200 30 ml PO Q6H PRN Hear tburn/Nausea 01/10/25 mg-200 mg/5 mL oral suspension 30 days #100 mL (MAG-AL) amlodipine 2.5 mg tablet 2.5 mg PO DAILY 30 days #30 tabs 01/10/25 atorvastatin 20 mg tablet 20 mg PO DAILY 30 days #30 t abs 01/10/25 buspirone 10 mg tablet 20 mg (2 x 10 mg) PO TID 30 days 01/10/25 #180 tabs clonazepam 0.125 mg disintegrating 0.125 mg PO BID PRN severe anxiety 01/10/25 tablet 30 days #60 tabs docusate sodium 100 mg capsule 100 mg PO BID 30 days # 60 caps 01/10/25 duloxetine 60 mg capsule,delayed 60 mg PO DAILY 30 day s #30 caps 01/10/25 release glipizide 2.5 mg tablet, extended 2.5 mg PO DAILY 30 d ays #30 tabs 01/10/25 release 24 hr lisinopril 2.5 mg tablet 2.5 mg PO DAILY 30 days #30 tabs 01/10/25 mirtazapine 30 mg tablet 30 mg PO BEDTIME 30 days #30 tabs 01/10/25 omeprazole 20 mg capsule,delayed 20 mg PO BID@0630,163 0 30 days #60 01/10/25 release caps ondansetron 4 mg disintegrating 4 mg translingual Q4H PRN Nausea 01/10/25 tablet And Vomiting 30 days #60 tab s polyethylene glycol 3350 17 17 g PO BID 30 days #238 g thelma 01/10/25 gram/dose oral powder pyridoxine (vitamin B6) 50 mg 50 mg PO DAILY 30 days # 30 tabs 01/10/25 tablet ropinirole 0.5 mg tablet 0.5 mg PO DAILY 30 days #30 tabs 01/10/25 ropinirole 2 mg tablet 2 mg PO DAILY@1700 30 days # 30 tabs 01/10/25 simethicone 80 mg chewable tablet 80 mg PO QIDWMHS 30 days #120 tabs 01/10/25 dicyclomine 10 mg capsule 10 mg PO DAILY PRN abdominal 01/13/25 cramping 30 days #30 caps sitagliptin phosphate 100 mg 100 mg PO DAILY 30 days # 30 tabs 01/13/25 tablet (Januvia) cephalexin 500 mg capsule 500 mg PO Q8H 7 days #21 cap s 01/16/25 Allergies Allergy/AdvReac Type Severity Reaction Status Date / Time ampicillin Allergy Rash Verified 01/15/25 22:03 morphine Allergy Rash Verified 01/15/25 22:03 Penicillins Allergy Rash Verified 01/15/25 22:03 pork derived (porcine) Allergy Vomiting Verified 01/15/25 22:03 Review of Systems 2 Review of Systems: Pertinent review of systems as mentioned in HPI. All other system otherwise negative. [facility] Past Medical History [facility] Narrative: Medical history as mentioned in HPI Medical History Tension headache Peripheral neuropathy Akathisia Cerebral microvascular disease RLS (restless legs syndrome) Migraines Diabetes Hypertension Anxiety Social History Social History Household Members: None Housing: House Do you presently have visiting nurse or other home services: Yes Patient Tobacco Use Status: Never used Tobacco Smoked in Last 30 Days: No Use of substances other than those prescribed or required for medical reasons: No Advance Directives: No Advance Directives Information Provided: No Do you have a plan to hurt others: No Plan service: No Sexual orientation: Straight/Heterosexual Physical Exam ED Exam Exam: General: Pleasant, no distress, interacting appropriately Head: Normacephalic, atraumatic ENT: oral mucosa moist, neck supple, no tracheal deviation Cardiovascular: regular rate, regular rhythm, no murmurs, rubbing, gallops Respiratory: CTAB, no wheeze, rales, rhonchi Gastrointestinal: Soft, non distended, non tender, non guarding Extremities: No limb pain or swelling, no calf tenderness Neurological: Awake and alert, no facial droop noted, no focal neurological deficit on exam no sign of ataxia Skin: Warm and dry Psychiatric: Appropriate mood and thoughts Vital Signs: Vital Signs - 24 hr 01/15/25 21:57 01/15/25 22:00 01/16/25 00:05 Temperature 98.1 F 98.0 F Pulse Rate 95 92 82 Respiratory Rate 15 18 20 Blood Pressure 136/72 136/72 150/75 H Pulse Oximetry 99 98 99 Oxygen Delivery Method Room Air Room Air Room Air 01/16/25 01:31 01/16/25 01:32 01/16/25 01:33 Temperature Pulse Rate 88 80 83 Respiratory Rate Blood Pressure 159/82 H 150/80 H 141/78 H Pulse Oximetry Oxygen Delivery Method BMI result Body Mass Index 28.1 Medications Administered Discontinued Medications Generic Name Dose Route Start Last Admin Trade Name Davidq PRN Reason Stop Dose Admin Acetaminophen 975 mg 01/16/25 01:26 01/16/25 01:37 Acetaminophen 325 Mg Tablet PO 01/16/25 01:27 975 mg ONCE ONE Administration Cephalexin HCl 500 mg 01/16/25 03:05 01/16/25 03:32 Cephalexin 500 Mg Capsule PO 01/16/25 03:06 500 mg ONCE ONE Administration Sodium Chloride 1,000 mls @ 999 mls/hr 01/15/25 23:45 01/16/25 01:05 Ns IV 01/16/25 00:45 Infused .Q1H1M RICHARD Infusion Lactated Ringer's 1,000 mls @ 999 mls/hr 01/16/25 01:30 01/16/25 03:06 Lr IV 01/16/25 02:30 Infused .Q1H1M RICHARD Infusion Meclizine HCl 25 mg 01/15/25 23:48 01/16/25 00:04 Meclizine Hcl 25 Mg Tablet PO 01/15/25 23:49 25 mg ONCE ONE Administration Meclizine HCl 25 mg 01/16/25 01:26 01/16/25 01:37 Meclizine Hcl 25 Mg Tablet PO 01/16/25 01:27 25 mg ONCE ONE Administration Medical Decision Making Medical Decision Making [facility] Narrative: This is a 79-year-old female presented hospital today for evaluation of vertiginous symptoms intermittently. Worsened with movement. I suspect this is BPPV. We will plan to give patient a bolus IV fluid and meclizine. I did attempt to evaluate the patient's ears. Unable to visualize the TM membrane due to ear wax. We will follow up on her lab work as well. I have low suspicion for stroke or intracranial bleed. On review patient does have some anemia hemoglobin of 10.3, patient's chemistry did show slight elevation creatinine 1.69. We will plan to obtain a UA to assess her urine for any signs of UTI. Troponin negative at 11.4. I reassess patient. The patient was attempted to ambulate. However upon standing up patient became dizzy. The patient was sat back down and stretcher. UA was obtained she does have large leuk esterase. Currently pending bacteria on microscopy at this time. We will plan to give patient additional IV fluid and meclizine. Review patient's lab work. No sign of leukocytosis. On further assessment the patient states she is feeling better at this time. Patient stated her dizziness has improved. Patient's UA did show signs of a UTI. We will plan to start patient on Keflex here. Plan to discharge patient with a course of Keflex as well. Patient will be discharged back to her SNF. Differential Diagnosis Differential Diagnoses: The differential diagnosis associated with the presentation includes UTI, BPPV, dehydration, orthostasis Lab Data [facility] Lab Attestation statement: I reviewed the patient's lab results. 01/15/25 22:20 01/15/25 22:20 Labs: Lab Results 09/24/25 09/24/25 09/25/25 Range/Units 21:59 22:20 01:32 WBC 7.7 (4.8-10.8) X10*3/uL RBC 3.44 L (4.20-5.50) X10*6/uL Hgb 10.3 L (12.0-16.0) g/dl Hct 29.1 L (37.0-47.0) % MCV 84.6 (80.0-98.0) fL MCH 29.9 (27.0-33.0) pg MCHC 35.4 H (31.0-35.0) g/dl RDW 13.9 (11.0-16.0) % Plt Count 216 (160-400) X10*3/uL MPV 8.5 L (9.4-12.3) fL Immature Gran % (Auto) 0.3 (0.0-0.4) % Neut % (Auto) 59.8 (45-73) % Lymph % (Auto) 25.8 (20-40) % [place] % (Auto) 11.9 H (2-11) % Eos % (Auto) 1.9 (0-4) % Baso % (Auto) 0.3 (0-2) % Lymph # (Auto) 2.0 (1.2-4.9) X10*3/uL [place] # (Auto) 0.9 (0.1-1.2) X10*3/uL Eos # (Auto) 0.2 (0.0-0.4) X10*3/uL Baso # (Auto) 0.0 (0.0-0.2) X10*3/uL Abs Immat Gran (auto) 0.02 (0.00-0.03) X10*3/uL Absolute Neuts (auto) 4.6 (2.0-8.3) x10*3/uL Absolute Nucleated RBC 0.000 (0.0-0.012) X10*3/uL Nucleated RBC % (auto) 0.0 (0.0-0.2) /100WBC Sodium 138 (135-145) mmol/L Potassium 4.0 D (3.3-5.1) mmol/L Chloride 108 (96-108) mmol/L Carbon Dioxide 22 (22-29) mmol/L Anion Gap 12 (12-20) BUN 27 H (9-16) mg/dL Creatinine 1.69 H (0.5-1.4) mg/dL Estim Creat Clear Calc 20.6 Estimated GFR 29 POC Glucose 159 H (60-115) mg/dL Random Glucose 170 H (60-115) mg/dL Calcium 9.2 (8.4-10.2) mg/dL Magnesium 2.1 (1.6-2.6) mg/dL Troponin I High Sens 11.4 (<3.5-17.0) ng/L Urine Color Yellow Urine Appearance Clear Urine pH 7.0 (5.0-9.0) Ur Specific [place] 1.010 (1.005-1.025) Urine Protein Negative (Neg-Trace) mg/dL Urine Glucose (UA) Negative (Negative) mg/dL Urine Ketones Negative (Negative) mg/dL Urine Blood Negative (Negative) Urine Nitrite Negative (Negative) Ur Leukocyte Esterase Large (3+) H (Negative) Urine RBC 0-2 (0-2) /HPF Urine WBC >50 H (0-5) /HPF Ur Squamous Epith Cells 0-2 (0-2) /HPF Urine Bacteria 4+ (None Seen) Hyaline Casts 0-2 (0-2) /LPF Prescription Management I considered prescription management with: Antibiotic Discharge Plan Discharge Clinical Impression: Dizziness, Acute UTI Patient Disposition: Home, Self-Care Instructions: Urinary Tract Infection in Older Adults (ED) Prescriptions: New cephalexin 500 mg capsule 500 mg PO Q8H 7 Days Qty: 21 0RF No Action acetaminophen 325 mg Tablet 650 mg PO Q6H PRN (Reason: Headache/Pain, Scale 1-10) 30 Days Qty: 90 0RF ropinirole 2 mg Tablet 2 mg PO DAILY@1700 30 Days Qty: 30 0RF mirtazapine 30 mg Tablet 30 mg PO BEDTIME 30 Days Qty: 30 0RF ropinirole 0.5 mg Tablet 0.5 mg PO DAILY 30 Days Qty: 30 0RF buspirone 10 mg Tablet 20 mg PO TID 30 Days Qty: 180 0RF docusate sodium 100 mg Capsule 100 mg PO BID 30 Days Qty: 60 0RF lisinopril 2.5 mg Tablet 2.5 mg PO DAILY 30 Days Qty: 30 0RF Protocol: Hold for SBP< HOLD for SBP < : 90 clonazepam 0.125 mg Tablet,Disintegrating 0.125 mg PO BID PRN (Reason: severe anxiety) 30 Days Qty: 60 0RF duloxetine 60 mg Capsule,Delayed Release(Dr/Ec) 60 mg PO DAILY 30 Days Qty: 30 0RF omeprazole 20 mg Capsule,Delayed Release(Dr/Ec) 20 mg PO BID@0630,1630 30 Days Qty: 60 0RF ondansetron 4 mg Tablet,Disintegrating 4 mg translingual Q4H PRN (Reason: Nausea And Vomiting) 30 Days Qty: 60 0RF MAG-AL 200-200 mg/5 mL Suspension 30 ml PO Q6H PRN (Reason: Heartburn/Nausea) 30 Days Qty: 100 0RF polyethylene glycol 3350 17 gram/dose powder 17 g PO BID 30 Days Qty: 238 0RF glipizide 2.5 mg Tablet Extended Release 24hr 2.5 mg PO DAILY 30 Days Qty: 30 0RF pyridoxine (vitamin B6) 50 mg Tablet 50 mg PO DAILY 30 Days Qty: 30 0RF simethicone 80 mg Tablet,Chewable 80 mg PO QIDWMHS 30 Days Qty: 120 0RF atorvastatin 20 mg tablet 20 mg PO DAILY 30 Days Qty: 30 1RF amlodipine 2.5 mg tablet 2.5 mg PO DAILY 30 Days Qty: 30 1RF albuterol sulfate 90 mcg/actuation Hfa Aerosol Inhaler 2 puff INHALATION Q4-6H PRN (Reason: Shortness Of Breath Or Wheezing) 30 Days Qty: 1 1RF fluticasone furoate-vilanterol [Breo Ellipta] 100-25 mcg/dose blister with device 1 ea inhalation DAILY 30 Days Qty: 1 1RF dicyclomine 10 mg Capsule 10 mg PO DAILY PRN (Reason: abdominal cramping) 30 Days Qty: 30 0RF Januvia 100 mg tablet 100 mg PO DAILY 30 Days Qty: 30 0RF Print Language: Kenyan
[2025-01-16 00:05] VITALS: BP 150/75; PULSE 82; RESP 20; TEMP 36.7; O2SAT 99
--- NOTE | 2025-01-16 00:07 | PC.NURSE ---
pt medicated per jun, tolerated whole well with water
[2025-01-16 01:31] VITALS: BP 159/82; PULSE 88
[2025-01-16 01:32] VITALS: BP 150/80; PULSE 80
[2025-01-16 01:33] VITALS: BP 141/78; PULSE 83
[2025-01-16] MEDS: Lactated Ringers 1,000 ML 999 ML IV (01:38)
[2025-01-16 01:40] LABS: Appearance Urine Clear; Glucose Urine UA Negative (Negative); PH 7.0 (5.0-9.0); Specific Gravity - Urine 1.010 (1.005-1.025); UMIC TRIGGER UA YES
--- NOTE | 2025-01-16 01:45 | PC.NURSE ---
attempted to ambulate pt to bathroom for urine sample, on standing pt reported dizziness. MD Lester aware. pt given commode with stand by assist, urine sample obtained. Ortho Vitals completed at this time and given to provider. pt medicated per jun.
--- NOTE | 2025-01-16 03:06 | PC.NURSE ---
pt assisted to bedside commode at this time, states she no longer feels dizzy and that she would like to go home. MD Trevon brand
--- NOTE | 2025-01-16 03:22 | PC.NURSE ---
attempted to reach facility at [phone] which is occupational therapy teacher number in pt chart. no answer x4, unable to give report on pt.
[2025-01-16 03:54] VITALS: BP 164/74; PULSE 76; RESP 15; TEMP 36.7; O2SAT 95
== END 2025-01-16 04:00 | disposition home or self-care (01) ==
PROVIDERS: Emergency Provider Student in an Organized Health Care Education/Training Program
DX: N39.0 Urinary tract infection, site not specified (principal); R42 Dizziness and giddiness; I10 Essential (primary) hypertension; R11.0 Nausea; R51.9 Headache, unspecified; Z79.899 Other long term (current) drug therapy
CPT/HCPCS: 36415; 80048; 81001; 82947; 83735; 84484; 85025; 93005; 96360; 96361; 99284; 99285; J7120

== ENCOUNTER → 2025-01-15 22:12 | Outpatient (BNV) | payer OTHER, SELFPAY | PROVIDERS: Emergency Provider Student in an Organized Health Care Education/Training Program; Visit Provider Internal Medicine Cardiovascular Disease | DX: R42 Dizziness and giddiness (principal) | CPT/HCPCS: 93010 ==

== ENCOUNTER 2025-01-17 05:36 | Day surgery (SDC) | payer OTHER, SELFPAY ==
--- OUTSIDE RECORDS SUMMARY | 2025-01-14 12:12 | XMS_ITS | Clinical Summary ---
Author Organization [facility] Address [address] [place] [address] Care Team Providers Care Chief Sales Officer Name Role Phone Unavailable Primary Care Provider [...] medications Active Problems No known active problems Social History Tobacco Use Types Packs/Day Years [...] Description 02/04/2025 10:20 AM EDT Office Visit [facility] [address] [place] [id number] Yash Garcias, [facility] [address] [place] [address] Health Maintenance Due Date Last Done Comments Hepatitis C Screening 1945 Medicare Annual Wellness Visit 12/24/1965 Imm-Zoster, Recombinant (2 of 3) 07/19/2010 05/24/19 11 Bone Density Screening 12/24/2012 Falls Prevention 12/24/2012 Imm-RSV (adult) (1 - 1-dose 75+ series) 12/24/2022 Dental BW 12/12/2023 12/09/2022 Alcohol and Drug Screen 04/24/2024 Depression Annual Screen 04/24/2024 [id number] ( season) 2024 021 Imm-Influenza (#1) 2024 01/26/2023, 0 01/05/2022, 01/21/2021, Additional history exists Tobacco Screening 08/02/2025 08/02/2024 Dental Examination 08/04/2025 08/02/2024, 12/09/2022 Dental Perio Charting 08/04/2025 08/02/2024 Dental Prophy 08/04/2025 08/02/2024, 12/09/2022 Hypertension Screening (#1) 09/03/2025 Imm-DTaP/Tdap/Td (4 - Td or Tdap) 10/20/2027 10/19/2017, 04/25/2015, 07/17/2007 Dental FMX/Pano 12/12/2027 12/09/2022 Imm-Pneumococcal 50+ Completed 01/17/2019, 03/12/2015, 01/30/2009, Additional history exists Procedures Procedure Name Priority Date/Time Associated Diagnosis Comments COMP PERIODONTAL EVALUATION - NEW/EST PATIENT Routine 08/02/2024 10:00 AM EDT Bruxism (teeth grinding) 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 PROPHYLAXIS - ADULT Routine 08/02/2024 1 0:00 AM EDT Bruxism (teeth grinding) 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 PERIODIC ORAL EVALUATION ESTABLISHED PATIENT Routine 08/02/2024 10:00 AM EDT Bruxism (teeth grinding) 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 INTRAORAL - COMP SERIES OF RADIOGRAPHIC IMAGES Routine 12/09/2022 3:40 PM EDT Encounter for dental examination from Last 3 Months or Most Recently Relevant to Health Maintenance Insurance [facility]
--- OUTSIDE RECORDS SUMMARY | 2025-01-14 12:12 | XMS_ITS | Continuity of Care Document ---
Author Name Elpidio Medina Address [address] [place] [id number] Organization Unknown Address [address] [place] [address] Medications No known medications Problems No known problems
--- OUTSIDE RECORDS SUMMARY | 2025-01-14 12:12 | XMS_ITS | Continuity of Care Document ---
Author Name Elpidio Medina Address [address] [place] [id number] Organization Unknown Address [address] [place] [address] Medications No known medications Problems No known problems
--- OUTSIDE RECORDS SUMMARY | 2025-01-14 12:12 | XMS_ITS | Encounter Summary ---
Author Organization [facility] Address [address] [place] [address] Encounters * CPT with Elpidio Medina at [facility] on 2024-10-09 { reasonForRequest : Patient took a Pill, at 530 and now she feels Restless. Pill was for her nerves, and now Doesn't feel good. First time taking this pill. , patientReports": , denies :[], chiefComplaints : Weakness , pmh& quot;: Severe Persistent Mental Illness (SPMI), Hypertension, COPD/Asthma, Diabetes Mellitus Type 2 , allergies : Morphine, Aspirin, Penicillins , otherAllergies&quo t;:null, painAssessment : , visitOutcome : , additionalComments : 78 y.o female \n\nPt took Mirapex for restless leg . this is the first time she has taken it. \nShe is feeling nausea, she took with food. \nShe feels restless and feels she ishaving a reaction to the med. \nShe denies any trouble swallowing or breathing but feels she has increased salivation. \nShe has no rash or hives. But having neck pain . \n\nI provided information onthe mobile health provider response time and advised the patient and/or caregiver to monitor reported signs and symptoms. I discussed the warning signs of when to seek emergency care. } Pt seen for primary complain of nausea & dizziness. Upon arrival met trujillo x 4 ambulatory Pt. Pt ambulating under her own power. Pt reports she believes she is having a reaction to a new medication(Mirapex) as she started feeling nauseous approx 30 min after taking the medication. Pt reports shehas had ongoing dizziness and unsteady gait since yesterday, Pt unable to be more specific on time frame. Pt reports generally feeling unwell, presents with tremors which she reports are new for her starting either yesterday or today, Pt again unable to be more specific to timeline. Pt denies any complaints of headache or CP. Pt found to be hypertensive, VS as noted. Pt has no neuro deficits. Dueto Pt complaint and hypertension [facility] immediately contacted and advised of Pt complaint, presentation and exam findings. [facility] request Pt be sent to ED. EMS called via 911. Blood sugar 85. Further ALS care attempted but Pt refuses due to being insistent on other tasks prior to EMS arrival. Pt accompanied as she ambulates around her home, multiple attempts to get Pt to be seated to allow for further assessment and care unsuccessful. Pt care turned over to [facility] for transport to [facility]. Call closed. ORAL_MEDICATION, WOUND_CARE Written by Elpidio Medina on 2024-10-09
--- OUTSIDE RECORDS SUMMARY | 2025-01-14 12:12 | XMS_ITS | Encounter Summary ---
Author Organization [facility] Address [address] [place] [address] Encounters * CPT with Elpidio Medina at [facility] (by [email or web address]) on 2024-10-14 { reasonForRequest : Pt experiencing dizziness , patientReports :"Sudden onset -unilateral weakness/gait disturbance; Head pain with nausea vomiting; Dizziness withpositional change , denies :[ Worst Headache of life , New onset of vision loss , Fall with head strike and altered LOC , New onset of Slurred speechor difficulty finding words , Sudden Mental status changes , Head pain with fever chills and neck pain , Seizure activity , Sensitive to light ], chi efComplaints : Dizziness , pmh : Severe Persistent Mental Illness (SPMI), Hypertension, COPD/Asthma, Diabetes Mellitus Type 2 , allergies : Morphine, Aspirin, Penicillins , otherAllergies :null, painAssessment : ,& quot;visitOutcome : , additionalComments : 78 y.o female complains of Dizziness - Started earlier today \n\nPt reports feeling unwell dizziness with an unsteady gait - \ I feel like my head is in a fog\ . Pt was seen by [facility] on 10/08 for same - Pt reports symptoms are not improving - \ My head feel tight - Headache - 01/01 - Nausea \n\nDenies chest pain - Denies SOB and fever\n\nPt is requested a follow up requested\n\nEmergency treatment declined\n\nPer patient and medic, took a medication for her restless leg syndrome because she???s been having dizziness and unsteady on her feet since yesterday. With medic has persistent blood pressure readings over 200 systolic. Has a nurse that comes in the morning, but unclear if it was abnormal this morning. POC glucose with medic: 86.\n\nWith medic, can walk steady with medic, but patient reports ? ??unsteadiness.?? Seems anxious with medic. Having trouble sitting still. Denies chest pain. Denies headache. Has been taking hypertension medication as scheduled. Blood pressure remain hypertensivewith medic. I do think she needs ER evaluation for HTN emergency vs urgency evaluation. Vs TIA vs CVA work up. Will need CT head imaging and blood pressure control and monitoring.\n\nI provided information on the mobile health provider response time and advised the patient and/or caregiver to monitor reported signs and symptoms. I discussed the warning signs of when to seek emergency care. } This 78-year-old female with a history including but not limited to anxiety/depression, HTN, COPD, DM type II, HLD requested a visit today to address anxiety -related symptoms since this morning. Patient describes feeling jittery and unsteady on her feet. I saw this patient on 08/25/24 for similar sym ptoms. At the time she has PRN Lorazepam and we recommended she take 0.25 mg and follow-up with herpsychiatrist. I spoke to the patient's daughter via phone and the psychiatrist had all of her medications locked up including the Lorazepam because she was taking too much too often. Patient denies any chest pain, shortness of breath, fevers, nausea, vomiting, diarrhea. Patient presents awake and alert, visibly anxious, in no acute distress and speaking full sentences. Her vital signs are reasonably stable and she is afebrile. Nonfocal neurological exam. Normal gait. Lungs are clear throughout auscultation. Abdomen is soft, nontender, nondistended. No lower extremity edema. Patient is requesting ambulance transport to [facility] for Ativan. Patient's daughter states this is a regular occurrence, [facility] treats her with Ativan and sends her home. 911 was initiated for ambulance transport to [facility] emergency department and SBAR was given to MADHU WRIGHT. IV_(FLUIDS_AND/OR_MEDICATION), POC_BLOODWORK, ORTHOSTATIC_VITAL_SIGNS, PO_MEDICATION Written by Elpidio Medina on 2024-10-14
--- OUTSIDE RECORDS SUMMARY | 2025-01-14 12:12 | XMS_ITS | Clinical Summary ---
Author Organization 175 [facility] Address [address] [place] [address] Phone Care Team Providers Care Parts Puller Name Role Phone Jose Kang MD Primary Care Provider [phone] Allergies Active Allergy Reactions Criticality Noted Date Comments Ampicillin Rash Medium 02/25/2020 Aspirin GI intolerance Medium 12/16/2020 High dose, stomach ache Morphine Sulfate Nausea And Vomiting Medium 05/12/2011 Penicillins Rash Medium 05/12/2011 Medications blood-glucose meter [facility] Use to test blood sugar twice daily 4 Active Lacto 41/B.animalis,b ifid/FOS (ULTIMATE PROBIOTIC-10 ORAL) Take 1 Tablet by mouth daily. 4 Active acetaminophen (TYLENOL) 325 mg tablet Take 2 Tablets by mouth every 6 hours as needed. Active fluticasone propionate (FLONASE) 50 mcg/actuation nasal spray 1 [place] by Nasal route daily. 4 Active sertraline (ZOLOFT) 100 mg tablet Take 1 Tablet by mouth daily. 4 Active zoledronic acid (RECLAST) 5 mg/100 mL piggyback 3 Active mirtazapine (REMERON) 15 mg tabletIndicatio ns:Depression, unspecified depression type Take 2 tablets (30 mg total) by mouth at bedtime. 60 each 2 4 Active albuterol HFA (PROAIR HFA ; PROVENTIL HFA ; VENTOLIN HFA) 90 mcg/actuation inhaler Inhale 2 Puffs into the lungs every 6 hours as needed for Cough or Wheezing. 6.7 g 1 5 Active atorvastatin (LIPITOR) 20 mg tablet Take 1 tablet (20 mg total) by mouth 1 (one) time each day. 90 tablet 1 5 Active SITagliptin phosphate (Januvia) 100 mg tablet Take 1 tablet (100 mg total) by mouth 1 (one) time each day. 90 tablet 1 5 Active lisinopriL (PRINIVIL,ZESTR IL) 20 mg tablet Take 1 tablet (20 mg total) by mouth 1 (one) time each day. 90 tablet 1 5 Active polyethylene glycol (MIRALAX) 17 gram packet Take 17 g by mouth 1 (one) time each day if needed for constipation (Only use it when constipated for 2 days. Not daily unless needed.) for up to 20 doses. 51 g 5 Active lancets lancets Use to test blood sugar twice daily. One touch [id number] brand. 200 each 1 5 Active melatonin 5 mg tablet TAKE 1 TABLET BY MOUTH EVERY NIGHT AT BEDTIME NEEDED FOR INSOMNIA 28 tablet 5 5 Active fluticasone furoate-vilante roL (Breo Ellipta) 100-25 mcg/dose inhaler Inhale 1 Puff into the lungs daily. 1 each 3 5 Active glipiZIDE (GLUCOTROL XL) 2.5 mg 24 hr tablet Take 1 tablet (2.5 mg total) by mouth 1 (one) time each day. Do not crush, chew, or split. 180 tablet 5 Active senna-docusate (PERICOLACE) 8.6-50 mg per tablet Take 1 tablet by mouth 1 (one) time each day. 90 tablet 1 5 Active LORazepam (ATIVAN) 0.5 mg tablet Take 1 tablet (0.5 mg total) by mouth if needed. 5 Active lamoTRIgine (LaMICtal) 100 mg tablet Take 1 tablet (100 mg total) by mouth 1 (one) time each day. 5 Active DULoxetine (CYMBALTA) [address] capsule Take 1 capsule (60 mg total) by mouth 1 (one) time each day. 5 Active gabapentin (NEURONTIN) 100 mg capsuleIndicati ons:Restless leg syndrome Take 1 capsule (100 mg total) by mouth 3 (three) times a day. 90 each 3 5 Active blood sugar diagnostic ([employer] Verio test strips) test strip USE TO TEST BLOOD SUGAR TWICE A DAY 100 each 1 5 Active gabapentin (NEURONTIN) 600 mg tablet Take 1 tablet (600 mg total) by mouth at bedtime. In addition to the 100mg TID dose. 90 tablet 5 Active pantoprazole (PROTONIX) 40 mg EC tablet Take 1 tablet (40 mg total) by mouth 2 (two) times a day. Do not crush, chew, or split. 60 each 3 5 09/26/19 26 Active butalbital-acet aminophen-caffe ine (ESGIC) 50-325-40 mg per capsule Take 1 capsule by mouth every 4 (four) hours if needed. Max Daily Amount: 6 capsules Active amLODIPine (NORVASC) 2.5 mg tablet Take 1 tablet (2.5 mg total) by mouth 1 (one) time each day. 30 each 5 5 04/15/20 25 Active ondansetron (ZOFRAN) 4 mg tablet Take 1 tablet (4 mg total) by mouth 3 (three) times a day if needed for nausea or vomiting. 16 tablet 5 Active Active Problems Problem Noted Date Diagnosed Date Knee instability, unspecified laterality 025 Diarrhea 06/04/2024 Diabetic gastroparesis ([facility] V24, [facility] V28 ) 08/22/2022 Assessment & Plan (10/17/2024 7:33 PM EDT): Will get gastroenterology on board. Advised her to use pantoprazole for now for acid reflux. Will check her A1c for diabetes. Orders: Hemoglobin A1c; Future Microalbumin creatinine urine ratio; Future Ambulatory referral to Gastroenterology; Future Obstructive sleep apnea 04/26/2021 Overview (02/01/2024): [facility] Home sleep test 04/21/2021; weight 128 pounds; BMI 25. AHI 5; AHI 5. 2 obstructive apneas and 35 hypopneas. Average oxygen saturation 92% with oxygen abe 86%. Obstructive sleep apnea-mild with mostly hypopneas and without nocturnal hypoxemia based on 2020 home sleep test. Localized primary osteoarthr itis of carpometacarpal (CMC) joint of right wrist 10/17/2020 Neck mass 10/17/2020 Overview (02/01/2024): 09/2020-neck ultrasound ordered, referred to general surgery Previously, she underwent an ultrasound of her neck on 11/06/2020 which showed a possible hypoechoic mass. She subsequently underwent CT neck on 12/03/2020 which showed no focal mass lesions in the supraclavicular region. Type 2 diabetes mellitus wit h renal manifestations ([facility] V24, [facility] V28) 04/11/2019 Asthma-COPD overlap syndrome ([facility] V24, [facility] V28) 03/01/2018 Chronic obstructive pulmonar y disease ([facility] V24, [facility] V28) 03/01/2018 Pulmonary nodules 03/01/2018 Lung bullae ([facility] V24, [facility] V28) 8 Type II or unspecified type diabetes mellitus with ophthalmic manifestations, uncontrolled(250.52) ([facility] V24, [facility] V28) 08/22/2017 CKD (chronic kidney disease) stage 3, GFR 30-59 ml/min ([facility] V24, [facility] V28) 05/30/2017 Cataract 07/19/2016 Overview (02/01/2024): bilat Type 2 diabetes mellitus wit h cataract ([facility] V24, [facility] V28) 07/19/2016 Asthma 07/28/2015 Depression 07/28/2015 HTN (hypertension) 07/28/2015 Assessment & Plan (10/17/2024 7:33 PM EDT): Her blood pressure is not under control. I am going to start amlodipine 2.5 mg daily. Side effects of medication discussed. Continue lisinopril 20 mg daily. Hyperlipidemia 07/28/2015 Osteopenia 07/28/2015 RLS (restless legs syndrome) 07/28/2015 Assessment & Plan (10/17/2024 7:33 PM EDT): In regards to her restless leg syndrome, akathisia; she has not been taking the pramipexole. I explained to the patient she needs to discuss with the neurologist first whether she should be on both pramipexole and propranolol or only one of the other. I have advised her not to take the propranolol until she sees a neurologist to confirm. I have told her that she has to make sure her specialists are kept in the loop on what medications she is taking. Encounters Date Type Department Care Team Description 01/07/2025 Telephone [facility] [address] [place] [phone] Jose Kang MD 12/10/2024 Telephone Internal Medicine - [address] [phone] Jose Kang MD 11/28/2024 Billing Patient Not Present Internal Medicine - [address] [phone] Jose Kang MD Age-related cognitive decline (Primary Dx); Generalized anxiety disorder; Gastroparesis; Anxiety disorder, unspecified type; Insomnia due to other mental disorder; Major depressive disorder, recurrent, moderate (CMS/HCC V24, CMS/HCC V28) 11/22/2024 Telephone Internal Medicine - [address] [place] [address] Jose Kang MD 10/31/2024 Telephone Gastroenterology - [facility] [address] [place] [address] Nay Chilel PA 10/18/2024 7:07 PM EDT - 10/19/2024 12:35 AM EDT Emergency [facility] [address] [place] [address] Ananth Syed MD Epigastric pain (Primary Dx) Discharge Disposition: Home or Self Care 10/17/2024 2:45 PM EDT Office Visit Internal Medicine - [facility] [address] [place] [phone] Jose Kang MD Dizziness (Primary Dx); RLS (restless legs syndrome); Akathisia; Diabetic gastroparesis ([facility]/H[facility] V24, [facility] V28); Hypertension, unspecified type 10/14/2024 Telephone Gastroenterology - [facility] 175 [facility] [address] [place] [address] Nay Chilel PA 10/13/2024 9:24 PM EDT - 10/14/2024 4:50 AM EDT Emergency [facility] [address] [place] [address] Discharge Disposition: Left Against Medical Advice from Last 3 Months Immunizations Name Administration Dates Next Due Diptheria & Tetanus, 6wks to less than 7yo 12/09/2005 Influenza trivalent, 0.5mL ( Fluzone High-dose) 65yo and older 01/26/2023,01/21/2021,01/22/2020,01/17 Influenza, Unspecified 01/05/2022,01/27/2017 PPD Test 02/21/2018,01/31/2018 Impulsonic SARS-CoV-2 COVID-19, mRNA, LNP-S, preservative free 01/23/2021 Pneumococcal conjugate 13 va lent (Prevnar 13, PCV13) 2mo and older 03/12/2015 Pneumococcal polysaccharide 23 valent (Pneumovax 23) 2yo and older 01/17/2019 Rabies Vaccine, For Intramus cular Injection Retired Code 08/07/2007,07/24/2007,07/20/2007,07/16 Td Tetanus diptheria (Tdvax) 7yo and older 10/19/2017 Tdap Tetanus diptheria acell ular pertussis (Boostrix; Adacel) 7yo and older 04/25/2015,07/17/2007 Zoster Live 05/24/2010 Zoster recombinant (Shingrix ) 19yo and older 11/05/2019,07/17/2019 Surgical History Surgery Date Site/Laterality Comments COLONOSCOPY 05/16/2012 PROCEDURE: HISTORICAL COLONOSCOPY COLONOSCOPY 03/23/2018 PROCEDURE: HISTORICAL COLONOSCOPY; COMMENT: 5 mm ascending colon polyp. Path: Tubular adenoma. EYE SURGERY CATARACTS APPENDECTOMY ESOPHAGOGASTRODUODENOSCOPY WITH BOTOX INJECTION LAPAROSCOPIC TUBAL LIGATION Medical History Medical History Date Comments Depression 07/28/2015 DX:Depression RLS (restless legs syndrome) 07/28/2015 DX: RLS (restless legs syndrome) Asthma 07/28/2015 DX:Asthma Hyperlipidemia 07/28/2015 DX:Hyperlipidemi a HTN (hypertension) 07/28/2015 DX:HTN (hyper tension) History of hepatitis C 07/28/2015 DX:Histor y of hepatitis C; COMMENT: Completed treatment with Harvoni 09/2014 / no viral load detected 04/06/15 Osteopenia 07/28/2015 DX:Osteopenia Cataract 07/19/2016 DX:Cataract Type 2 diabetes mellitus wit h cataract ([facility]/HCC V24, CMS/HCC V28) 07/19/2016 DX:Type 2 diabetes mellitus with cataract (HCC) Lung nodule DX:Lung nodule Type 2 diabetes mellitus wit h renal manifestations (CMS/HCC V24, CMS/HCC V28) 08/22/2017 DX:Type 2 diabetes mellitus with renal manifestations (HCC) CKD (chronic kidney disease) stage 3, GFR 30-59 ml/min (CMS/HCC V24, CMS/HCC V28) 05/30/2017 DX:CKD (chronic kidney disea se) stage 3, GFR 30-59 ml/min (HCC) DM (diabetes mellitus), type 2, uncontrolled w/ophthalmic complication 08/22/2017 DX:DM (diabetes mellitus), type 2, uncontrolled w/ophthalmic complication Gastroparesis DIABETIC GP COPD (chronic obstructive pu lmonary disease) (CMS/HCC V24, CMS/HCC V28) JARETT on CPAP Family History Medical History Relation Name Comments Other: murdered Brother 1 Lex age 46 in [place] Other: sepsis Brother 2 He 67 s/p throat surgery; diabetic No Known Problems Daughter Hypertension Father DM, age 56 Glaucoma Mother HTN, DM Pancreatic cancer Mother age 7 5 No Known Problems Son Relation Name Status Comments Aunt m 60 x2 Alive Brother 1 Lex Brother 2 He Daughter Alive Father Mother Son Alive Social History Tobacco Use Types Packs/Day Years Used Date Smoking Tobacco: Former Cigarettes 0.5 30 S tarted: 1970 Smokeless Tobacco: Never Tobacco Cessation:Counseling Given: Not Answered Alcohol Use Standard Drinks/Week Comments No 0 (1 standard drink = 0.6 oz pur e alcohol) Housing Instability Answer Date Recorde d Are you worried that in the next 2 months you may not have stable housing? No 06/28/2024 Food Access & Nutrition Answer Date Rec orded Do you have access to a vari ety of food including fruits and vegetables? Yes 06/28/2024 Health Literacy Answer Date Recorded How often do you need to hav e someone help you when you read instructions, pamphlets, or other written material from your doctor or pharmacy? Never 06/28/2024 Caregiver: How often do you need to have someone help you when you read instructions, pamphlets, or other written material from your doctor or pharmacy? Not on file 06/28/2024 Financial Risk Answer Date Recorded How hard is it for you to pa y for the very basics like food, housing, medical care, and air conditioning / heating? Not very hard 06/28/2024 Transportation Answer Date Recorded Has the lack of transportati on kept you from meetings, work, or from getting things needed for daily living? No Has the lack of transportati on kept you from medical appointments or from getting medications? No 06/28/2024 Social Isolation Answer Date Recorded How often do you feel lonely or isolated from th ose around you? Never 06/28/2024 Food Risk Answer Date Recorded Within the past 12 months we worried whether our food would run out before we got money to buy more. Never true 06/28/2024 Within the past 12 months th e food we bought just didn't last and we didn't have money to get more. Never true 06/28/2024 Dependent Care Answer Date Recorded Do you need help finding or paying for care for your loved ones. For example, early childhood lead teacher or elderly care for an older adult? No 06/28/2024 Education Answer Date Recorded Do you think completing more education or training, like finishing a GED, going to college, or learning a trade, would be helpful for you? No 06/28/2024 Employment and Income Answer Date Recor ded During the last four weeks, have you been actively looking for work? No 06/28/2024 Living Situation Answer Date Recorded What is your living situation? 0 06/28/2024 Interpersonal Safety Answer Date Record ed Physical Abuse 10/07/2024 Verbal Abuse 10/07/2024 Comments No Sex and Gender Information Value Date Recorded Sex Assigned at Female 10/07/2024 9:02 AM EDT Legal Sex Female 4:33 AM EST Gender Identity Female 10/07/2024 9:02 AM EDT Sexual Orientation Not on file Obstetrics History Last Filed Vital Signs Vital Sign Reading Time Taken Comments Blood Pressure 169/96 10/18/2024 10:46 PM EDT Pulse 88 10/18/2024 10:46 PM EDT Temperature 36.5 C (97.7 F) 10/18/2024 10:46 PM EDT Respiratory Rate 20 10/18/2024 10:46 PM EDT Oxygen Saturation 96% 10/18/2024 10:46 PM EDT Inhaled Oxygen Concentration - - Weight 49.4 kg (109 lb) 10/18/2024 7:33 PM EDT Height 152.4 cm (5') 10/18/2024 7:33 PM EDT Body Mass Index 21.29 10/18/2024 7:33 PM EDT Plan of Treatment Upcoming Encounters Date Type Department Care Team (Late st Contact Info) Description 01/20/2025 10:30 AM EDT [facility] [address] [place], [place] [phone] Smiley Faustin NP [address] [place] [id number] Health Maintenance Due Date Last Done Comments Diabetes: Annual Foot Exam 12/24/1955 Diabetes: Annual Retina Eye Exam 12/24/1955 RSV Immunization Adult Patients (1 - 1-dose 75+ series) 12/24/2022 Depression Screening 04/24/2024 Diabetes: Annual Urine Albumin-Creatinine Ratio (uACR) 07/26/2024 07/27/2023 Diabetes: Blood Sugar Control Test (HGBA1C) 07/26/2024 01/26/2024, 01/26/2024, 09/12/2023 COVID-19 Vaccine ( season) 2024 02/05/2022, 01/23/2021, 06/15/2020, Additional history exists Influenza Vaccine (#1) 2024 , 01/26/2023, 02/01/2022, Additional history exists Medicare Annual Wellness Visit 06/28/2025 06/28/2024 Social Influencers of Health Screening 06/28/2025 06/28/2024 Falls Risk Assessment 10/07/2025 10/07/2024 Diabetes: Annual GFR (Glomerular Filtration Rate) 10/18/2025 10/18/2024, 10/13/2024, 10/08/2024, Additional history exists Hypertension/CHF/CAD Annual BMP Blood Test 10/18/2025 10/18/2024, 10/13/2024, 10/08/2024, Additional history exists DTaP,Tdap,and Td Vaccines (5 - Td or Tdap) 10/20/2027 10/19/2017, 04/25/2015, 07/17/2007, Additional history exists Cholesterol Screening (Lipid Panel) 01/25/2029 01/26/2024, 01/26/2024 Osteoporosis Screening (Bone Density Screening) 12/29/2032 12/29/2022, 07/23/2020, 06/21/2017 Colorectal Cancer Screening: Colonoscopy 01/18/2033 01/18/2023 Hepatitis C Screening Completed 04/05/2016 Pneumococcal Vaccine: 50+ Years Completed 01/17/2019, 03/12/2015, 01/30/2009, Additional history exists Zoster Vaccines Completed 11/05/2019, 06/23, 05/24/2010 Breast Cancer Screening Discontinued 08/11/19, 08/08/2022, 07/30/2021, Additional history exists HIB Vaccines Aged Out No longer eligi ble based on patient's age to complete this topic HPV Vaccines Aged Out No longer eligi ble based on patient's age to complete this topic Hepatitis A Vaccines Aged Out No long er eligible based on patient's age to complete this topic Hepatitis B Vaccines Aged Out No long er eligible based on patient's age to complete this topic IPV Vaccines Aged Out No longer eligi ble based on patient's age to complete this topic MMR Vaccines Aged Out No longer eligi ble based on patient's age to complete this topic Meningococcal ACWY Vaccine Aged Out N o longer eligible based on patient's age to complete this topic Meningococcal B Vaccine Aged Out No l onger eligible based on patient's age to complete this topic RSV Immunization Patients Under 20 months Aged Out No longer eligible based on patient's age to complete this topic Varicella Vaccines Aged Out No longer eligible based on patient's age to complete this topic Procedures Procedure Name Priority Date/Time Associated Diagnosis Comments ECG ANNOTATED 10/19/2024 TROPONIN I HIGH SENSITIVITY STAT 10/18/2024 9:[address] ABDOMEN PELVIS W CONTRAST STAT 10/18/2024 8:31 PM EDT LACTATE, WITH REFLEX STAT 10/18/2024 8:23 PM EDT SAWANT URINE CULTURE TUBE STAT 10/18/2024 8:02 PM EDT URINALYSIS WITH REFLEX MICROSCOPIC AND CULTURE STAT 10/18/2024 8:02 PM EDT URINALYSIS WITH REFLEX MICROSCOPIC AND CULTURE STAT 10/18/2024 8:02 PM EDT CULTURE URINE STAT 10/18/2024 8:02 PM EDT TROPONIN I HIGH SENSITIVITY STAT 10/18/2024 7:42 PM EDT CBC WITH AUTO DIFFERENTIAL STAT 10/18/2024 7:28 PM EDT LIPASE STAT 10/18/2024 7:28 PM EDT COMPREHENSIVE METABOLIC PANEL STAT 10/18/2024 7:28 PM EDT CBC AND DIFFERENTIAL STAT 10/18/2024 7:28 PM EDT HEMOGLOBIN A1C Routine 01/26/2024 LIPID PANEL Routine 01/26/2024 SCREENING MAMMOGRAPHY BI 2-VIEW BREAST INC CAD Routine 08/11/2023 1:51 PM EDT Encounter for screening mammogram for malignant neoplasm of breast URINE ALBUMIN CREATININE RATIO Routine 07/27/2023 COLONOSCOPY Routine 01/18/2023 DXA BONE DENSITY STUDY 1+ SITS AXIAL SKEL Routine 12/29/2022 2:41 PM EDT Encounter for screening for osteoporosis HEPATITIS C SCREENING Routine 04/05/2016 from Last 3 Months or Most Recently Relevant to Health Maintenance Results * ECG-Annotated (10/19/2024) us Provider Onbase ECG ORDERABLES Final Result * Troponin I high sensitivity (10/18/2024 9:32 PM EDT) Only the most recent of2 resultswithin the time period is included. High Sensitivity Troponin I 4 <=54 ng/L LAB CHEMISTRY METHOD 10/18/2024 10:13 PM EDT [facility] Blood Venous blood specimen / Unknown Venipuncture / Unknown 10/18/2024 9:32 PM EDT 10/18/2024 9:46 PM EDT Narrative [facility] - 10/18/2024 10:13 PM EDT High levels of biotin in samples may falsely decrease hsTroponin values. Use caution when interpreting hsTroponin results in patients taking biotin who exhibit renal impairment (eGFR <60) or in patients taking more than 20 mg/day of biotin. Ananth Syed MD LAB BLOOD ORDERABLES Final Result [facility] [address] [place] [address], * CT Abdomen Pelvis w Contrast (10/18/2024 8:31 PM EDT) Anatomical Region Laterality Modality Body Computed Tomogra phy 10/18/2024 8:52 PM EDT Impressions 10/18/2024 8:52 PM EDT Impression: No acute findings. This document has been electronically signed by: Maryan Zamora MD on 10/18/2024 20:52:33 Narrative 10/18/2024 8:52 PM EDT INDICATION: Abdominal pain, acute, nonlocalized CT abdomen and pelvis with contrast Comparison: None available Findings: No consolidation at the lung bases. 2.1 cm thin-walled pulmonary cyst in the lingula. No gallstones visible on CT. No gallbladder wall thickening or pericholecystic fluid. Unremarkable bladder. Hepatic steatosis. Subcentimeter low attenuating lesions in the spleen and kidneys which are too small to characterize. Retroverted uterus. Calcified degenerated fibroid. The other solid organs are unremarkable. Duodenal diverticula. No bowel wall thickening or dilation. Status post appendectomy. Colonic diverticulosis. No aneurysm. Mild calcified atherosclerotic disease. No lymphadenopathy. No ascites. No acute osseous abnormality. Procedure Note Maryan Greene MD - 10/18/2024 INDICATION: Abdominal pain, acute, nonlocalized CT abdomen and pelvis with contrast Comparison: None available Findings: No consolidation at the lung bases. 2.1 cm thin-walled pulmonary cyst in the lingula. No gallstones visible on CT. No gallbladder wall thickening or pericholecystic fluid. Unremarkable bladder. Hepatic steatosis. Subcentimeter low attenuating lesions in the spleen and kidneys whichare too small to characterize. Retroverted uterus. Calcified degenerated fibroid. The other solid organs are unremarkable. Duodenal diverticula. No bowel wall thickening or dilation. Status post appendectomy. Colonic diverticulosis. No aneurysm. Mild calcified atherosclerotic disease. No lymphadenopathy. No ascites. No acute osseous abnormality. IMPRESSION: Impression: No acute findings. This document has been electronically signed by: Maryan Zamora MD on 10/18/2024 20:52:33 us Ananth Syed MD IMG CT PROCEDURES Final Res ult * Lactate, with reflex (10/18/2024 8:23 PM EDT) [facility] LACTIC ACID 0.8 0.4 - 2.0 mmol/L LAB CHEMISTRY METHOD 10/18/2024 9:28 PM EDT [facility] Blood Venous blood specimen / Unknown Venipuncture / Unknown 10/18/2024 8:23 PM EDT 10/18/2024 8:57 PM EDT us Ananth Syed MD LAB BLOOD ORDERABLES Final Result [facility] [address] [place] [address], [place] [phone] * (ABNORMAL) Urinalysis with reflex microscopic and culture (10/18/2024 8:02 PM EDT) [facility] Specific [place] Urine 1.009 1.003 - 1.030 LAB URINALYSIS - AUTOMATED METHOD 10/18/2024 8:19 PM [facility] pH, Urine 7.5 5.0 - 8.0 pH LAB URINALYSIS - AUTOMATED METHOD 10/18/2024 8:19 PM [facility] Leukocytes, Urine Small(A) Negative LAB URINALYSIS - AUTOMATED METHOD 10/18/2024 8:19 PM [facility] Nitrite, Urine Negative Negative LAB URINALYSIS - AUTOMATED METHOD 10/18/2024 8:19 PM [facility] Protein, Urine Negative <=Trace mg/dL LAB URINALYSIS - AUTOMATED METHOD 10/18/2024 8:19 PM [facility] Glucose, Urine Negative Negative mg/dL LAB URINALYSIS - AUTOMATED METHOD 10/18/2024 8:19 PM [facility] Ketones, Urine Negative Negative mg/dL LAB URINALYSIS - AUTOMATED METHOD 10/18/2024 8:19 PM EDT [facility] Urobilinogen, Urine 0.2 0.2 - 1.0 mg/dL LAB URINALYSIS - AUTOMATED METHOD 10/18/2024 8:19 PM [facility] Bilirubin, Urine Negative Negative LAB URINALYSIS - AUTOMATED METHOD 10/18/2024 8:19 PM T [facility] Blood, Urine Negative Negative LAB URINALYSIS - AUTOMATED METHOD 10/18/2024 8:19 PM [facility] RBC, Urine 0.3 0 - 4 /HPF LAB URINALYSIS - AUTOMATED METHOD 10/18/2024 8:19 PM [facility] WBC, Urine 3.0 0 - 4 /HPF LAB URINALYSIS - AUTOMATED METHOD 10/18/2024 8:19 PM [facility] Squamous Epithelial, Urine 8 0 - 60 /LPF LAB URINALYSIS - AUTOMATED METHOD 10/18/2024 8:19 PM [facility] Bacteria, Urine Negative Negative /HPF LAB URINALYSIS - AUTOMATED METHOD 10/18/2024 8:19 PM [facility] Hyaline Casts, Urine 0.0 0 - 3 /LPF LAB URINALYSIS - AUTOMATED METHOD 10/18/2024 8:19 PM [facility] Urine Urine specimen obtained by clean catch procedure / Unknown Non-blood Collection / Unknown 10/18/2024 8:02 PM EDT 10/18/2024 8:08 PM EDT us Ananth Syed MD LAB URINE ORDERABLES Final Result [facility] [address] [place] [address], * Sawant urine culture tube (10/18/2024 8:02 PM EDT) Pathologist [facility] Extra Tube Hold for add-ons. 10/18/2024 10:02 PM EDT [facility] Comment:Auto resulted. Urine Urine specimen obtained by clean catch procedure / Unknown Non-blood Collection / Unknown 10/18/2024 8:02 PM EDT 10/18/2024 8:08 PM EDT us Ananth Syed MD LAB URINE ORDERABLES Final Result [facility] [address] [place] [address], [place] [phone] * Culture urine (10/18/2024 8:02 PM EDT) [facility] Culture, Urine 50,000-99,000 CFU/mL Mixed urogenital karon, no uropathogens present. Suggest repeat specimen if clinically indicated. 10/19/2024 12:50 PM EDT [facility] Urine Urine specimen obtained by clean catch procedure / Unknown Non-blood Collection / Unknown 10/18/2024 8:02 PM EDT 10/18/2024 8:19 PM EDT us Ananth Syed MD LAB MICROBIOLOGY - GENERAL ORDERABLES Final Result [facility] [address] [place] [address], [place] [phone] * CBC auto differential (10/18/2024 7:28 PM EDT) Pathologist [facility] WBC 6.2 4.8 - 10.8 K/[facility] LAB HEMETOLOGY METHOD 10/18/2024 7:49 PM EDT [facility] RBC 4.10 3.80 - 4.80 M/[facility] LAB HEMETOLOGY METHOD 10/18/2024 7:49 PM EDT [facility] Hemoglobin 11.9 11.5 - 16.0 g/dL LAB HEMETOLOGY METHOD 10/18/2024 7:49 PM EDT [facility] Hematocrit 35.6 35.0 - 47.0 % LAB HEMETOLOGY METHOD 10/18/2024 7:49 PM EDT [facility] MCV 87.5 79.0 - 98.0 FL LAB HEMETOLOGY METHOD 10/18/2024 7:49 PM EDT [facility] MCH 29.2 27.0 - 32.0 pcg LAB HEMETOLOGY METHOD 10/18/2024 7:49 PM EDT [facility] MCHC 33.4 32.0 - 37.0 g/dL LAB HEMETOLOGY METHOD 10/18/2024 7:[facility] RDW 13.4 11.0 - 15.0 % LAB HEMETOLOGY METHOD 10/18/2024 7:49 [facility] Platelets 245 130 - 400 K/mcL LAB HEMETOLOGY METHOD 10/18/2024 7:49 [facility] MPV 9.2 7.0 - 11.0 FL LAB HEMETOLOGY METHOD 10/18/2024 7:49 [facility] NRBC 0.0 <1.0 % LAB HEMETOLOGY METHOD 10/18/2024 7:49 PM EDT [facility] NRBC Absolute 0.00 <0.10 K/mcL LAB HEMETOLOGY METHOD 10/18/2024 7:49 PM EDT [facility] Neutrophils Relative 55.8 % LAB HEMETOLOGY METHOD 10/18/2024 7:49 [facility] Lymphocytes Relative 28.5 % LAB HEMETOLOGY METHOD 10/18/2024 7:49 [facility] Monocytes Relative 12.9 % LAB HEMETOLOGY METHOD 10/18/2024 7:49 PM EDT [facility] Eosinophils Relative 1.9 % LAB HEMETOLOGY METHOD 10/18/2024 7:49 PM EDT [facility] Basophils Relative 0.6 % LAB HEMETOLOGY METHOD 10/18/2024 7:49 PM EDT [facility] Immature Granulocytes Relative 0.3 % LAB HEMETOLOGY METHOD 10/18/2024 7:49 PM EDT [facility] Neutrophils Absolute 3.47 1.50 - 7.00 K/mcL LAB HEMETOLOGY METHOD 10/18/2024 7:49 PM EDT [facility] Lymphocytes Absolute 1.77 1.00 - 5.00 K/mcL LAB HEMETOLOGY METHOD 10/18/2024 7:49 PM EDT [facility] Monocytes Absolute 0.80 0.20 - 1.00 K/mcL LAB HEMETOLOGY METHOD 10/18/2024 7:49 PM EDT [facility] Eosinophils Absolute 0.12 0.00 - 0.50 K/mcL LAB HEMETOLOGY METHOD 10/18/2024 7:49 PM EDT [facility] Basophils Absolute 0.04 0.00 - 0.20 K/mcL LAB HEMETOLOGY METHOD 10/18/2024 7:49 PM EDT [facility] Immature Granulocytes Absolute 0.02 0.00 - 0.03 K/mcL LAB HEMETOLOGY METHOD 10/18/2024 7:49 PM EDT [facility] Blood Venous blood specimen / Unknown Venipuncture / Unknown 10/18/2024 7:28 PM EDT 10/18/2024 7:41 PM EDT us Ananth Syed MD LAB BLOOD ORDERABLES Final Result [facility] [address] [place] [address], * Lipase (10/18/2024 7:28 PM EDT) Lipase 38 13 - 75 unit/L LAB CHEMISTRY METHOD 10/18/2024 8:06 PM [facility] Blood Venous blood specimen / Unknown Venipuncture / Unknown 10/18/2024 7:28 PM EDT 10/18/2024 7:41 PM EDT Ananth Syed MD LAB BLOOD ORDERABLES Final Result [facility] [address] [place] [address], * (ABNORMAL) Comprehensive metabolic panel (10/18/2024 7:28 PM EDT) Pathologist [facility] Sodium 137 133 - 145 mmol/L LAB CHEMISTRY METHOD 10/18/2024 8:08 PM [facility] Potassium 4.5 3.5 - 5.5 mmol/L LAB CHEMISTRY METHOD 10/18/2024 8:08 PM [facility] Chloride 103 96 - 110 mmol/L LAB CHEMISTRY METHOD 10/18/2024 8:08 PM [facility] CO2 25 21 - 32 mmol/L LAB CHEMISTRY METHOD 10/18/2024 8:08 PM [facility] Anion Gap 9 3 - 11 LAB CHEMISTRY METHOD 10/18/2024 8:08 PM [facility] Glucose 100 70 - 100 mg/dL LAB CHEMISTRY METHOD 10/18/2024 8:08 PM [facility] BUN 23 5 - 25 mg/dL LAB CHEMISTRY METHOD 10/18/2024 8:08 PM [facility] Creatinine 1.08 0.50 - 1.10 mg/dL LAB CHEMISTRY METHOD 10/18/2024 8:08 PM [facility] eGFR 53(L) >=60 mL/min/1. 73m2 LAB CHEMISTRY METHOD 10/18/2024 8:08 PM [facility] Comment:Calculation based on the Chronic Kidney Disease Epidemiology Collaboration (CKD-EPI) equation refit without adjustment for race. BUN/Creatinine Ratio 21.3 LAB CHEMISTRY METHOD 10/18/2024 8:08 PM [facility] Calcium 9.8 8.5 - 10.5 mg/dL LAB CHEMISTRY METHOD 10/18/2024 8:08 PM [facility] AST (SGOT) 16 10 - 42 unit/L LAB CHEMISTRY METHOD 10/18/2024 8:08 PM [facility] ALT (SGPT) 36 10 - 60 unit/L LAB CHEMISTRY METHOD 10/18/2024 8:08 PM [facility] Alkaline Phosphatase 80 42 - 121 unit/L LAB CHEMISTRY METHOD 10/18/2024 8:08 PM [facility] Total Protein 7.3 6.0 - 8.0 g/dL LAB CHEMISTRY METHOD 10/18/2024 8:08 PM [facility] Albumin 4.1 3.2 - 5.0 g/dL LAB CHEMISTRY METHOD 10/18/2024 8:08 PM [facility] Total Bilirubin 0.5 0.0 - 1.4 mg/dL LAB CHEMISTRY METHOD 10/18/2024 8:08 PM [facility] Blood Venous blood specimen / Unknown Venipuncture / Unknown 10/18/2024 7:28 PM EDT 10/18/2024 7:41 PM EDT us Ananth Syed MD LAB BLOOD ORDERABLES Final Result [facility] [address] [place] [address], * Hemoglobin A1c (01/26/2024) Hemoglobin A1C 6.5 <=6.5 % Blood Venous blood specimen / Unknown Historical Provider LAB BLOOD ORDERABLES Piedad l Result * Lipid panel (01/26/2024) LDL/HDL Ratio 3 0 - 4 Triglycerides 106 0 - 150 mg/dL Cholesterol 121 0 - 200 mg/dL HDL 49 >=40 mg/dL LDL Cholesterol 51 0 - 100 mg/dL Blood Venous blood specimen / Unknown Historical Provider LAB BLOOD ORDERABLES Piedad l Result * SCREENING MAMMOGRAPHY BI 2-VIEW BREAST INC CAD (08/11/2023 1:51 PM EDT) Anatomical Region Laterality Modality Radiographic Gracie ging 08/08/2022 10:5 6 AM EDT Narrative 08/14/2023 11:08 AM EDT This is a summary report. The complete report is available in the patient's medical record. If you cannot access the medical record, please contact the sending organization for a detailed fax or copy. BILATERAL 3D DIGITAL SCREENING MAMMOGRAM History: Routine screening. No current breast complaints. Comparison: Multiple priors dating back to 10/01/2018 Technique: Bilateral full-field digital 3D mammography was performed using standard CC and MLO projections CAD was used to evaluate this mammogram. Findings: Density: Scattered breast parenchyma-B RIGHT: No suspicious masses, groups of microcalcification or areas of architectural distortion identified. Stable typically benign parenchymal asymmetries LEFT: No suspicious masses, groups of microcalcifications or areas of architectural distortion identified. Stable typically benign parenchymal asymmetries IMPRESSION: : 1. No mammographic evidence of malignancy. BI-RADS Category 2 benign findings Recommendation: Routine annual screening mammography is recommended Procedure Note Flo Mendiola MD - 12/11/2023 This is a summary report. The complete report is available in thepatient's medical record. If you cannot access the medical record, pleasecontact the sending organization for a detailed fax or copy. BILATERAL 3D DIGITAL SCREENING MAMMOGRAM History: Routine screening. No current breast complaints. Comparison: Multiple priors dating back to 10/01/2018 Technique: Bilateral full-field digital 3D mammography was performed usingstandard CC and MLO projections CAD was used to evaluate this mammogram. Findings: Density: Scattered breast parenchyma-B RIGHT: No suspicious masses, groups of microcalcification or areas ofarchitectural distortion identified. Stable typically benign parenchymalasymmetries LEFT: No suspicious masses, groups of microcalcifications or areas ofarchitectural distortion identified. Stable typically benign parenchymalasymmetries IMPRESSION: : 1. No mammographic evidence of malignancy. BI-RADS Category 2 benign findings Recommendation: Routine annual screening mammography is recommended Jose Kang MD IMG XR PROCEDURES Final R esult * Urine Albumin Creatinine Ratio (07/27/2023) Urine Albumin Creatinine Ratio Abstracted [facility] Provider [place] [facility] Final Result * Colonoscopy (01/18/2023) Colonoscopy No Interpretation , Abstracted Anatomical Region Laterality Modality Other [facility] Provider [facility] Final Result * DXA BONE DENSITY STUDY 1+ SITS AXIAL SKEL (12/29/2022 2:41 PM EDT) Anatomical Region Laterality Modality Bone Densitometr y 09/22/2022 3:10 PM EDT Narrative 12/29/2022 7:03 PM EDT BONE DENSITY SCAN (DEXA): FINDINGS: Lumbar Spine T-score is -0.1. (SD relative to 20-29 y/o adult) Z-score is 2.3. (SD relative to age matched peers) This is considered normal by WHO criteria. Left Hip T-score is -2.2. Z-score is -0.1. This is considered osteopenia by WHO criteria. Comparison exam(s): 07/23/2020. Unable goal to calculate change in bone mineral density due to dissimilar scan methods. IMPRESSION: IMPRESSION: Osteopenia by WHO criteria. This patient has a 22% risk of major osteoporotic fracture and a 6.8% risk of hip fracture over the next 10 years. (World Health Organization Fracture Risk Assessment) [facility] Department of Internal Medicine recommends using National Osteoporosis Foundation (NOF) guidelines in treatment decisions related to osteoporosis. NOF guidelines suggest considering treatment for postmenopausal women and men aged 50 or older presenting with the following: History of hip or vertebral fracture. T-score = -2.5 (DXA) at the femoral neck, total hip, or spine, after appropriate evaluation to exclude secondary causes. Low bone mass (T-score between -1.0 and -2.5 at the femoral neck or spine) AND a 10-year probability of a hip fracture = 3% OR a 10-year probability of a major osteoporosis-related fracture = 20% based on the [place]-adapted WHO algorithm Please note that all treatment decisions require clinical judgment and consideration of individual patient factors, including patient preferences, co-morbidities, previous drug use, risk factors not captured in the FRAX model (e.g., frailty, falls, vitamin D deficiency, increased bone turnover, interval significant decline in bone density) and possible under- or over-estimation of fracture risk by FRAX. Optional alternative screening schedule based on cresencio Dickson., [facility] May 12, 2011 for patients with osteopenia (based on hip BMD T-score) is as follows: * advanced osteopenia (T scores -2.00 to -2.49), BMD testing every year * moderate osteopenia (T scores -1.50 to -1.99), BMD testing every 5 years mild osteopenia or normal BMD (T scores -1.50 and higher), BMD testing every 15 years Procedure Note Flor Marte MD - 05/30/2023 BONE DENSITY SCAN (DEXA): FINDINGS: Lumbar Spine T-score is -0.1. (SD relative to 20-29 y/o adult) Z-score is 2.3. (SD relative to age matched peers) This is considered normal by WHO criteria. Left Hip T-score is -2.2. Z-score is -0.1. This is considered osteopenia by WHO criteria. Comparison exam(s): 07/23/2020. Unable goal to calculate change in bonemineral density due to dissimilar scan methods. IMPRESSION: IMPRESSION: Osteopenia by WHO criteria. This patient has a 22% risk of majorosteoporotic fracture and a 6.8% risk of hip fracture over the next 10 years. (World HealthOrganization Fracture Risk Assessment) [facility] Department of Internal Medicine recommendsusing National Osteoporosis Foundation (NOF) guidelines in treatment decisions related toosteoporosis. NOF guidelines suggest considering treatment for postmenopausal women and menaged 50 or older presenting with the following: History of hip or vertebral fracture. T-score = -2.5 (DXA) at the femoral neck, total hip, or spine, afterappropriate evaluation to exclude secondary causes. Low bone mass (T-score between -1.0 and -2.5 at the femoral neck or spine)AND a 10-year probability of a hip fracture = 3% OR a 10-year probability of a majorosteoporosis-related fracture = 20% based on the [place]-adapted WHO algorithm Please note that all treatment decisions require clinical judgment andconsideration of individual patient factors, including patient preferences, co- morbidities,previous drug use, risk factors not captured in the FRAX model (e.g., frailty, falls, vitaminD deficiency, increased bone turnover, interval significant decline in bone density) andpossible under- or over-estimation of fracture risk by FRAX. Optional alternative screening schedule based [facility] for patients with osteopenia (based on hip BMD T-score) is as follows: * advanced osteopenia (T scores -2.00 to -2.49), BMD testing every year * moderate osteopenia (T scores -1.50 to -1.99), BMD testing every 5years mild osteopenia or normal BMD (T scores -1.50 and higher), BMD testingevery 15 years Jose Kang MD [facility] DXA PROCEDURES Final Result * Hepatitis C Screening (04/05/2016) [facility] Hepatitis C Screening Abstracted Historical Provider HEALTH MAINTENANCE Final Result from Last 3 Months or Most Recently Relevant to Health Maintenance Insurance [facility] MEDIC[facility] Member Subscriber Plan / Payer (Ef fective 2023-Present) Name:Bailee Barreto Relation to Subscriber:Self Name:Bailee Barreto Payer ID:[id number] Group ID:[id number] Type:Not on file Address: [place] [address] [address] [id number] Advance Directives Documents on File Type Date Recorded 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 Health Care Decision (hx) 06/13/2023 AD HALEY DIRECTIVE Health Care Decision (hx) 06/13/2023 AD HALEY DIRECTIVE Health Care Decision (hx) 06/13/2023 AD HALEY DIRECTIVE Health Care Decision (hx) 06/13/2023 AD HALEY DIRECTIVE Health Care Decision (hx) 06/13/2023 AD HALEY DIRECTIVE Health Care Decision (hx) 06/13/2023 AD HALEY DIRECTIVE Health Care Decision (hx) 06/13/2023 AD HALEY DIRECTIVE Health Care Decision (hx) 06/13/2023 AD HALEY DIRECTIVE Care Teams Parts Puller Relationship Specialty Start Date End Date Jose Kang MD [address] [place] [id number] PCP - General Internal Medicine 02/13/20
[2025-01-17] VITALS (8 sets, daily range): BP systolic 160–184; BP diastolic 84–92; PULSE 77–92; RESP 18–28; TEMP 36.6–37.3; O2SAT 99–100; BMI 21.6
[2025-01-17 06:18] LABS: Glucose, Whole Blood 219 mg/dL (60-115)
[2025-01-17] MEDS: Lactated Ringers 1,000 ML 50 ML IVCONT (06:45)
--- NOTE | 2025-01-17 06:56 | PC.NURSE ---
Dr. Reynolds aware that patient states that she feels weak/dizzy. Initially felt as if she was hypoglycemic - POC 219. ER notes from 2 days ago reviewed, patient has UTI and has started on antibiotic. Dr. Reynolds stated that she will speak with Dr. Min for a decision.
--- NOTE | 2025-01-17 07:28 | MHC.SHP ---
Pre-Procedural Eval Section A - 24 Hr Update-Section A only Date of Service: 01/17/25 Section B - Complete if H&P > 30 days Chief Complaint: depression Details of Present Illness: recurrent depression some inc anxiety recent uti Allergies: Allergies Allergy/AdvReac Type Severity Reaction Status Date / Time ampicillin Allergy Rash Verified 01/17/25 06:25 morphine Allergy Rash Verified 01/17/25 06:25 Penicillins Allergy Rash Verified 01/17/25 06:25 pork derived (porcine) Allergy Vomiting Verified 01/17/25 06:25 Review of Systems Sugical H&P ROS: Yes, Specify: Neurological (some ? vertigo), Psychiatric (anxiety), Gastrointestinal (occ nausea) and Genitourinary (pos ) Exam Surgical H&P Exam: Normal: Heart, Normal: Lungs and Normal: Neurological Exam Comment: in c anxiety since move Plan Diagnosis/Plan: Change (er note reviewed ) I have reviewed the history and physical and performed a pertinent physical examination on my patient. No changes have occurred unless specified. Time Spent With Patient Time: Total time managing care of this patient today ____ minutes.
--- NOTE | 2025-01-17 07:51 | HO.ECTPROC ---
ECT Procedure Note Diagnosis/Treatment Date of Service: 01/17/25 Diagnosis: Major Depressive Disorder Previous ECT Date: 01/10/25 Current Treatment Number: 9 Treatment: Series Interval Clinical Notes: pt required labetolol pre tx for htn propofol post Time: Total time managing care of this patient today ____ minutes. ECT Settings Device: THYMATRON DGx Electrode Placement: Bifrontal Program/Pulse Width: 0.50 Energy Percent: 100 Seizure Duration By EEG (in seconds): 16 Medications Administration General Anesthetic: Etomidate (12) Muscle Relaxant: Succinylcholine (60) Ancillary Medications Cardiovascular Medications: Labetolol Miscillaneous Medications: Propofol Airway Management Airway Management: Bag Mask Ventilation Treatment Recommendations Electrode Placement: Bifrontal Program/Pulse Width: 0.50 Notes: Some transient hypertension. Patient preop was complaining of anxiety and some stomach upset which appears to be more chronic. She had recently been treated for UTI. Patient appeared to be having some anxiety and transitioning to her new living situation at assisted living. She felt that she was having per ECT anxiety decision was made to continue treatment which she did tolerate without difficulty. Has scheduled ECT in 1 week Pt Tolerated Procedure w/o Issue: Yes
--- NOTE | 2025-01-17 07:52 | P.CONAN_ITS ---
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 (Acute) Hyponatremia (Acute) Fall (Acute) Constipation (Acute) Forehead laceration (Acute) MDD (major depressive disorder), recurrent episode, moderate (Acute) Gastroparesis (Acute) Diabetes (Acute) RLS (restless legs syndrome) (Acute) Anxiety (Acute) Past Medical History Medical History (Updated 01/17/25 @ 06:25 by Reina Franks RN) History of electroconvulsive therapy Tension headache Peripheral neuropathy Akathisia Cerebral microvascular disease RLS (restless legs syndrome) Migraines Diabetes Hypertension Anxiety Family History Family history of problems with anesthesia: No Surgical History History of Problems with Anesthesia: No Social History Social History Household Members: None Housing: House Are you a primary student career development specialist to a significant other at home: No Do you presently have visiting nurse or other home services: No Patient Tobacco Use Status: Former Tobacco user Have you been hit, kicked, punched, or otherwise hurt by someone within the past year? If so, by whom?: No Are you DNR?: No Advance Directives: No Advance Directives Information Provided: Yes Poor oral hygiene: No service: No Sexual orientation: Straight/Heterosexual Meds Allergies Allergy/AdvReac Type Severity Reaction Status Date / Time ampicillin Allergy Rash Verified 01/17/25 06:25 morphine Allergy Rash Verified 01/17/25 06:25 Penicillins Allergy Rash Verified 01/17/25 06:25 pork derived (porcine) Allergy Vomiting Verified 01/17/25 06:25 Active Medications: Current Medications Lactated Ringer's (Lr) 1,000 mls @ 50 mls/hr IVCONT .Q20H RICHARD Last Admin: 01/17/25 06:45 Dose: 50 mls/hr Naloxone HCl (Naloxone Hcl 0.4 Mg/Ml Vial) 0.04 mg IVPUSH Q5M PRN PRN Reason: Excessive sedation or RR < 8 Exam Height,Weight and Vital Signs: Height 4 ft 11 in Weight 48.6 kg Last Vital Signs Temp 97.9 F 01/17/25 06:24 Pulse 89 01/17/25 06:24 Resp 18 01/17/25 06:24 BP 160/84 H 01/17/25 06:24 Pulse Ox 100 01/17/25 06:24 O2 Del Method Room Air 01/17/25 06:24 Pertinent Lab Results Pertinent Lab Results: Laboratory Tests 01/17/25 06:00 POC Glucose 219 H Airway Mallampati Class: II TM Dist: >3cm Neck ROM: Full Heart: rrr Lungs: cta Assessment and Plan Assessment Anesthesia Assessment: Anesthesia Plan Discussed and Chart Reviewed Final Anesthetic Review Family History of Problems with Anesthesia: No History of Problems with Anesthesia: No NPO: Yes ASA Class: III Final Preanesthetic Review: No Changes in Pt Med Stat, Meds/Allgs Chart Reviewed and Consent Obtained/Reviewed Patient Risk: Intermediate Procedure Risk: Intermediate Anesthetic Plan Anesthetic Plan: GA Disposition: Standard PACU
--- NOTE | 2025-01-17 07:58 | PC.NURSE ---
dr. salazar and dr. saleem discussed patient complaints. dr. saleem assessed patient and stated okay to proceed today. feels symptoms are anxiety driven per dr. saleem. patient in agreeance to have procedure today.
== END 2025-01-17 10:04 | disposition home or self-care (01) ==
PROVIDERS: Visit Provider Psychiatry & Neurology Psychiatry
PROC: (CPT 90870; principal; 2025-01-17 07:30)
DX: F33.1 Major depressive disorder, recurrent, moderate (principal); I10 Essential (primary) hypertension; F41.1 Generalized anxiety disorder; E78.5 Hyperlipidemia, unspecified; K31.84 Gastroparesis; E11.9 Type 2 diabetes mellitus without complications; Z79.899 Other long term (current) drug therapy; Z79.84 Long term (current) use of oral hypoglycemic drugs
CPT/HCPCS: 82947; 90870; J0330; J1920; J2405; J2704

== ENCOUNTER → 2025-01-17 05:36 | Outpatient (BNV) | payer OTHER, SELFPAY | PROVIDERS: Visit Provider Psychiatry & Neurology Psychiatry | DX: F33.2 Major depressive disorder, recurrent severe without psychotic features (principal) | CPT/HCPCS: 90870 ==

== ENCOUNTER 2025-01-24 05:41 | Day surgery (SDC) | payer OTHER, SELFPAY ==
[2025-01-24] VITALS (7 sets, daily range): BP systolic 139–160; BP diastolic 68–76; PULSE 70–77; RESP 16–18; TEMP 36.4–36.7; O2SAT 96–100; BMI 21.6
[2025-01-24 06:20] LABS: Glucose, Whole Blood 167 mg/dL (60-115)
[2025-01-24] MEDS: Lactated Ringers 1,000 ML 50 ML IVCONT (06:44)
--- NOTE | 2025-01-24 06:47 | HO.ANESPROP2 ---
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 (Acute) MDD (major depressive disorder), recurrent episode, moderate (Acute) Gastroparesis (Acute) Diabetes (Acute) RLS (restless legs syndrome) (Acute) Past Medical History Medical History History of electroconvulsive therapy Fall Constipation Tension headache Peripheral neuropathy Akathisia Cerebral microvascular disease RLS (restless legs syndrome) Migraines Diabetes Hypertension Anxiety Family History Family history of problems with anesthesia: No Surgical History History of Problems with Anesthesia: No Social History Social History Household Members: None Housing: House Are you a primary medicare contact specialist to a significant other at home: No Do you presently have visiting nurse or other home services: No Patient Tobacco Use Status: Former Tobacco user Have you been hit, kicked, punched, or otherwise hurt by someone within the past year? If so, by whom?: No Are you DNR?: No Advance Directives: No Advance Directives Information Provided: Yes Poor oral hygiene: No service: No Sexual orientation: Straight/Heterosexual Meds Allergies Allergy/AdvReac Type Severity Reaction Status Date / Time ampicillin Allergy Rash Verified 01/24/25 06:18 morphine Allergy Rash Verified 01/24/25 06:18 Penicillins Allergy Rash Verified 01/24/25 06:18 pork derived (porcine) Allergy Vomiting Verified 01/24/25 06:18 Active Medications: Current Medications Lactated Ringer's (Lr) 1,000 mls @ 50 mls/hr IVCONT .Q20H RICHARD Last Admin: 01/24/25 06:44 Dose: 50 mls/hr Exam Height,Weight and Vital Signs: Height 4 ft 11 in Weight 48.534 kg Last Vital Signs Temp 97.9 F 01/24/25 06:17 Pulse 76 01/24/25 06:17 Resp 18 01/24/25 06:17 BP 144/68 H 01/24/25 06:17 Pulse Ox 99 01/24/25 06:17 O2 Del Method Room Air 01/24/25 06:17 Pertinent Lab Results Pertinent Lab Results: Laboratory Tests 01/24/25 06:09 POC Glucose 167 H Airway Mallampati Class: II TM Dist: >3cm Neck ROM: Full Heart: rrr Lungs: cta Assessment and Plan Assessment Anesthesia Assessment: Anesthesia Plan Discussed and Chart Reviewed Final Anesthetic Review Family History of Problems with Anesthesia: No History of Problems with Anesthesia: No NPO: Yes ASA Class: III Final Preanesthetic Review: No Changes in Pt Med Stat, Meds/Allgs Chart Reviewed and Consent Obtained/Reviewed Patient Risk: Intermediate Procedure Risk: Intermediate Anesthetic Plan Anesthetic Plan: GA Disposition: Standard PACU
--- NOTE | 2025-01-24 07:09 | MHC.SHP ---
Pre-Procedural Eval Section A - 24 Hr Update-Section A only Date of Service: 01/24/25 Section B - Complete if H&P > 30 days Chief Complaint: depression Details of Present Illness: recurrent depression feeling better no physical concerns Allergies: Allergies Allergy/AdvReac Type Severity Reaction Status Date / Time ampicillin Allergy Rash Verified 01/24/25 06:18 morphine Allergy Rash Verified 01/24/25 06:18 Penicillins Allergy Rash Verified 01/24/25 06:18 pork derived (porcine) Allergy Vomiting Verified 01/24/25 06:18 Review of Systems Sugical H&P ROS: Yes, Specify: Neurological (mci), Psychiatric (some depressiojn), Gastrointestinal (occ nausea) and Genitourinary (pos ) Exam Surgical H&P Exam: Normal: Heart, Normal: Lungs and Normal: Neurological Exam Comment: in c anxiety since move Plan Diagnosis/Plan: Unchanged (er note reviewed ) I have reviewed the history and physical and performed a pertinent physical examination on my patient. No changes have occurred unless specified. Time Spent With Patient Time: Total time managing care of this patient today ____ minutes.
--- NOTE | 2025-01-24 07:29 | HO.ECTPROC ---
ECT Procedure Note Diagnosis/Treatment Date of Service: 01/24/25 Diagnosis: Major Depressive Disorder Previous ECT Date: 01/10/25 Current Treatment Number: 9 Treatment: Series Interval Clinical Notes: pt required labetolol pre tx for htn propofol post pt feeling better generally tolerating ect Time: Total time managing care of this patient today ____ minutes. ECT Settings Device: THYMATRON DGx Electrode Placement: Bifrontal Program/Pulse Width: 0.50 Energy Percent: 100 Seizure Duration By EEG (in seconds): 26 Medications Administration General Anesthetic: Etomidate (12) Muscle Relaxant: Succinylcholine (60) Ancillary Medications Cardiovascular Medications: Labetolol Miscillaneous Medications: Propofol Airway Management Airway Management: Bag Mask Ventilation Treatment Recommendations Electrode Placement: Bifrontal Program/Pulse Width: 0.50 Pt Tolerated Procedure w/o Issue: Yes
== END 2025-01-24 08:39 | disposition home or self-care (01) ==
PROVIDERS: Visit Provider Psychiatry & Neurology Psychiatry
PROC: (CPT 90870; principal; 2025-01-24 07:30)
DX: F33.1 Major depressive disorder, recurrent, moderate (principal); I10 Essential (primary) hypertension; E11.9 Type 2 diabetes mellitus without complications; Z88.0 Allergy status to penicillin; Z88.5 Allergy status to narcotic agent
CPT/HCPCS: 82947; 90870; J0330; J1920; J2704

== ENCOUNTER → 2025-01-24 05:41 | Outpatient (BNV) | payer OTHER, SELFPAY | PROVIDERS: Visit Provider Psychiatry & Neurology Psychiatry | DX: F33.2 Major depressive disorder, recurrent severe without psychotic features (principal) | CPT/HCPCS: 90870 ==

== ENCOUNTER 2025-01-31 05:36 | Day surgery (SDC) | payer OTHER, SELFPAY ==
[2025-01-31] VITALS (8 sets, daily range): BP systolic 120–147; BP diastolic 64–77; PULSE 74–82; RESP 16–20; TEMP 36.2–36.6; O2SAT 98–100; BMI 21.6
[2025-01-31] MEDS: Lactated Ringers 1,000 ML 50 ML IVCONT (06:30)
--- NOTE | 2025-01-31 06:42 | HO.ANESPROP2 ---
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 (Acute) MDD (major depressive disorder), recurrent episode, moderate (Acute) Gastroparesis (Acute) Diabetes (Acute) RLS (restless legs syndrome) (Acute) Past Medical History Medical History History of electroconvulsive therapy Fall Constipation Tension headache Peripheral neuropathy Akathisia Cerebral microvascular disease RLS (restless legs syndrome) Migraines Diabetes Hypertension Anxiety Family History Family history of problems with anesthesia: No Surgical History History of Problems with Anesthesia: No Social History Social History Household Members: None Housing: House Are you a primary care transition mgr to a significant other at home: No Do you presently have visiting nurse or other home services: No Patient Tobacco Use Status: Former Tobacco user Advance Directives: No Advance Directives Information Provided: Yes service: No Sexual orientation: Straight/Heterosexual Meds Allergies Allergy/AdvReac Type Severity Reaction Status Date / Time ampicillin Allergy Rash Verified 01/24/25 06:18 morphine Allergy Rash Verified 01/24/25 06:18 Penicillins Allergy Rash Verified 01/24/25 06:18 pork derived (porcine) Allergy Vomiting Verified 01/24/25 06:18 Exam Height,Weight and Vital Signs: Height 4 ft 11 in Weight 48.534 kg Last Vital Signs Temp 97.2 F 01/31/25 06:35 Pulse 82 01/31/25 06:35 Resp 16 01/31/25 06:35 BP 142/77 H 01/31/25 06:35 Pulse Ox 99 01/31/25 06:35 O2 Del Method Room Air 01/31/25 06:35 Airway Mallampati Class: II TM Dist: >3cm Neck ROM: Full Heart: rrr Lungs: cta Assessment and Plan Assessment Anesthesia Assessment: Anesthesia Plan Discussed and Chart Reviewed Final Anesthetic Review Family History of Problems with Anesthesia: No History of Problems with Anesthesia: No NPO: Yes ASA Class: III Final Preanesthetic Review: No Changes in Pt Med Stat, Meds/Allgs Chart Reviewed and Consent Obtained/Reviewed Patient Risk: Intermediate Procedure Risk: Intermediate Anesthetic Plan Anesthetic Plan: GA Disposition: Standard PACU
--- NOTE | 2025-01-31 07:15 | MHC.SHP ---
Pre-Procedural Eval Section A - 24 Hr Update-Section A only Date of Service: 01/31/25 The patient is an INPATIENT: No Changes since office visit: No Cold of Flu in the past 2 weeks, No New Medical Problems, No Changes in Medication and No Patient answered all questions The patient has been examined within 24 hours of the surgical procedure. The History & Physical has been completed within 30 days and I have reviewed it.: Yes Section B - Complete if H&P > 30 days Chief Complaint: depression Details of Present Illness: patient reports that she is very anxious Allergies: Allergies Allergy/AdvReac Type Severity Reaction Status Date / Time ampicillin Allergy Rash Verified 01/24/25 06:18 morphine Allergy Rash Verified 01/24/25 06:18 Penicillins Allergy Rash Verified 01/24/25 06:18 pork derived (porcine) Allergy Vomiting Verified 01/24/25 06:18 Review of Systems Sugical H&P ROS: Negative: Cardiovascular and Respiratory and Yes, Specify: Psychiatric (anxiety) Exam Surgical H&P Exam: Normal: Heart (RRR; no murmurs), Normal: Lungs (CTA b/l) and Normal: Neurological (CN2-12 grossly intact) Plan Diagnosis/Plan: Unchanged I have reviewed the history and physical and performed a pertinent physical examination on my patient. No changes have occurred unless specified. Time Spent With Patient Time: Total time managing care of this patient today ____ minutes.
--- NOTE | 2025-01-31 07:17 | HO.ECTPROC ---
ECT Procedure Note Diagnosis/Treatment Date of Service: 02/05/25 Diagnosis: Major Depressive Disorder Previous ECT Date: 01/24/25 Current Treatment Number: 10 Treatment: Series Interval Clinical Notes: pt reports continued anxiety; remains somatically focused Time: Total time managing care of this patient today ____ minutes. ECT Settings Device: THYMATRON DGx Electrode Placement: Bifrontal Program/Pulse Width: 0.50 Energy Percent: 100 Medications Administration General Anesthetic: Etomidate (12) and Other (labetolol 5mg for htn pre-ect) Muscle Relaxant: Succinylcholine (60) Ancillary Medications Miscillaneous Medications: Propofol (30 +30) and Midazolam (2) Airway Management Airway Management: Bag Mask Ventilation Treatment Recommendations No Changes Recommended: No change Electrode Placement: Bifrontal Program/Pulse Width: 0.50 Energy Percent: 100 Notes: to end seizure pt got Propofol 30mg; however, remained difficult to tell if seizure fully resolved so ended up getting a second dose of Propofol 30mg May/may not need Midazolam post ECt next session Pt Tolerated Procedure w/o Issue: Yes
== END 2025-01-31 09:26 | disposition home or self-care (01) ==
PROVIDERS: Visit Provider Psychiatry & Neurology Psychiatry
PROC: (CPT 90870; principal; 2025-01-31 07:30)
DX: F33.9 Major depressive disorder, recurrent, unspecified (principal); F41.1 Generalized anxiety disorder; I10 Essential (primary) hypertension; E78.5 Hyperlipidemia, unspecified; E11.9 Type 2 diabetes mellitus without complications; Z79.51 Long term (current) use of inhaled steroids; Z79.899 Other long term (current) drug therapy; Z88.0 Allergy status to penicillin; Z88.5 Allergy status to narcotic agent
CPT/HCPCS: 90870; J0330; J1920; J2250; J2704

== ENCOUNTER → 2025-01-31 05:36 | Outpatient (BNV) | payer OTHER, SELFPAY | PROVIDERS: Visit Provider Psychiatry & Neurology Psychiatry | DX: F33.2 Major depressive disorder, recurrent severe without psychotic features (principal) | CPT/HCPCS: 90870 ==

== ENCOUNTER 2025-02-14 05:34 | Day surgery (SDC) | payer OTHER, SELFPAY ==
--- OUTSIDE RECORDS SUMMARY | 2025-02-04 10:20 | XMS_ITS | Encounter Summary ---
Author Organization [facility] Address [address] [place] [address] Care Team Providers Care Home Care Giver Name Role Phone Unavailable Primary Care Provider Unavailabl e Encounter Details Date Type Department Care Team (Late st Contact Info) Description 02/04/2025 10:20 AM EDT Office Visit [facility] [address] [place] [phone] [facility] [address] [place] [address] Social History Tobacco Use Types Packs/Day Years Used Date Smoking Tobacco: Former Cigarettes Passive Smoke Exposure: Never Smokeless Tobacco: Never Social Connections Answer Date Recorded Connectedness 0 [...] on file Sexual Orientation Not on file documented as of this encounter Progress Notes * Yash Garcias [facility] - 02/04/2025 11:21 AM EDT Prophy, 4 bwx, Exam - Adult Subjective Baileeroslyn Barreto, 79 year old female, presents alone for Recall exam. Hide Worker: No No chief complaint on file. Objective RMHx: Yes Vitals: There were no vitals filed for this visit. Assessment EOE/IOE/Oral Cancer Screen: WNL OH: Good Fluoride exposure: toothpaste Home Care: Toothbrush 1 x per day, Floss 1 x per day Plaque: Generalized Slight Calculus: Localized Slight Bone Loss: Generalized Moderate PSR: No Periodontal Screening OHI & Nutrition counseling provided, discussed: Gingivitis Occlusion: N/A. Class I R & L. Overbite WNL. Overjet WNL. TMJ: WNL Caries Risk Assessment: Auto calculated Risk Score : moderate risk Dx: K08.531 Fractured dental scientology with loss of material (primary encounter diagnosis) Dx Details (Clinical Decision Making): Plan Comp filling for #6,7,9 Informed Consent/PARQ (Procedure, Alternatives, Risks, Questions): Discussed exam findings and treatment needs, questions answered. Patient confirms informed consent using PARQ, verbalizes understanding of exam findings and treatment plan. Dental procedures in this visit D9450 - CASE PRESENTATION SUBS DTL & EXTENSIVE TX PLN (Completed) Service provider: Yash Garcias RDH Billing provider: Yas Curtis DDS [id number] - ORAL CANCER SCREENING (Completed) Service provider: Yash Garcias RDH Billing provider: Yas Curtis DDS D1330 - ORAL HYGIENE INSTRUCTIONS (Completed) Service provider: Yash Garcias RDH Billing provider: Yas Curtis DDS D1310 - NUTRITIONAL COUNSELING CONTROL OF DENTAL DISEASE (Completed) Service provider: Yash Garcias RDH Billing provider: Yas Curtis DDS D0602 - CARIES RISK ASSESSMENT & DOC FINDING MOD RISK (Completed) Service provider: Yash Garcias RDH Billing provider: Yas Curtis DDS D0120 - PERIODIC ORAL EVALUATION ESTABLISHED PATIENT (Completed) Service provider: Yash Garcias RDH Billing provider: Yas Curtis DDS D0274 - BITEWINGS - FOUR RADIOGRAPHIC IMAGES (Completed) Service provider: Yash Garcias RDH Billing provider: Yas Curtis DDS D1110 - PROPHYLAXIS - ADULT (Completed) Service provider: Yash Garcias RDH Billing provider: Yas Curtis DDS [id number] - DENTAL CASE MANAGEMENT - MOTIVATIONAL INTV (Completed) Service provider: Yash Garcias RDH Billing provider: Yas Curtis DDS Referrals: No orders of the following type(s) were placed in this encounter: Referral. Rx: No orders of the defined types were placed in this encounter. Behavior: Excellent Prophy completed via ultrasonic, handscale saudi arabian and floss [place]: Treatment - Restorative Yash Garcias RDH documented in this encounter Miscellaneous Notes * Patient Instructions - Yash Garcias RDH - 02/04/2025 11:10 AM EDT If you are not able to keep your appointment please call 24-48 hours before your appointment to cancel or reschedule. documented in this encounter Plan of Treatment Upcoming Encounters Date Type Department Care Team (Late st Contact Info) Description 03/11/2025 9:40 AM EST Office Visit [address] [phone] Yas Curtis DDS [address] [place] [address] 08/06/2025 10:20 AM EDT Office Visit [facility] [address] [place] [phone] Y[address] [place] [address] Scheduled Orders Name Type Priority Associated Diagnoses Order Schedule 6 F(V) 6 F(V) RESIN-BASED COMPOSITE ONE SURFACE ANTERIOR Dental Procedures Routine 1 Occurrences starting 02/04/2025 7 F(V) 7 F(V) RESIN-BASED COMPOSITE ONE SURFACE ANTERIOR Dental Procedures Routine 1 Occurrences starting 02/04/2025 9 F(V) 9 F(V) RESIN-BASED COMPOSITE ONE SURFACE ANTERIOR Dental Procedures Routine 1 Occurrences starting 02/04/2025 documented as of this encounter Procedures Procedure Name Priority Date/Time Associated Diagnosis Comments ORAL CANCER SCREENING Routine 02/04/2025 10:20 AM EDT Fractured dental scientology with loss of material DENTAL CASE MANAGEMENT - MOTIVATIONAL INTV Routine 02/04/2025 10:20 AM EDT Fractured dental scientology with loss of material CARIES RISK ASSESSMENT & DOC FINDING MOD RISK Routine 02/04/2025 10:20 AM EDT Fractured dental scientology with loss of material CASE PRESENTATION SUBS DTL & EXTENSIVE TX PLN Routine 02/04/2025 10:20 AM EDT Fractured dental scientology with loss of material ORAL HYGIENE INSTRUCTIONS Routine 02/04/2025 10:20 AM EDT Fractured dental scientology with loss of material NUTRITIONAL COUNSELING CONTROL OF DENTAL DISEASE Routine 02/04/2025 10:20 AM EDT Fractured dental scientology with loss of material PROPHYLAXIS - ADULT Routine 02/04/2025 1 0:20 AM EDT Fractured dental scientology with loss of material BITEWINGS - FOUR RADIOGRAPHIC IMAGES Routine 02/04/2025 10:20 AM EDT Fractured dental scientology with loss of material PERIODIC ORAL EVALUATION ESTABLISHED PATIENT Routine 02/04/2025 10:20 AM EDT Fractured dental scientology with loss of material documented in this encounter Visit Diagnoses Diagnosis Fractured dental scientology with loss of material- Primary Fractured dental restorative material with loss of material documented in this encounter
--- OUTSIDE RECORDS SUMMARY | 2025-02-07 16:07 | XMS_ITS | Continuity of Care Document ---
Author Name [facility], Medical Address [address] [place] [address] Organization Unknown Address [address] [place] [address] Medications No known medications Problems No known problems
--- OUTSIDE RECORDS SUMMARY | 2025-02-07 16:07 | XMS_ITS | Clinical Summary ---
Author Organization [facility] Address [address] [place] [address] Care Team Providers Care Design Director Name Role Phone Unavailable Primary Care Provider [...] Encounters Date Type Department Care Team Description 02/04/2025 10:20 AM EDT Office Visit [facility] [address] [place] [phone] Yash Garcias RDH from Last 3 Months Social History Tobacco [...] Description 03/11/2025 9:40 AM EST Office Visit [facility] [address] [place] [phone] Yas Curtis, DDS [address] [place] [address] 08/06/2025 10:20 AM EDT Office Visit [facility] [address] [place] [phone] Yash Garcias, [facility] [address] [place] [address] Health Maintenance Due Date Last Done Comments Hepatitis C Screening 1945 Medicare Annual Wellness Visit 12/24/1965 Bone Density Screening 12/24/2012 Falls Prevention 12/24/2012 Imm-RSV (adult) (1 - 1-dose 75+ series) 12/24/2022 Alcohol and Drug Screen 04/24/2024 Depression Annual Screen 04/24/2024 [id number] ( season) 2024 021 Imm-Influenza (#1) 2024 01/26/2023, 0 01/05/2022, 01/21/2021, Additional history exists Tobacco Screening 08/02/2025 08/02/2024 Dental Perio Charting 08/04/2025 08/02/2024 Hypertension Screening (#1) 09/03/2025 Dental BW 02/06/2026 02/04/2025, 12/09/2022 Dental Examination 02/06/2026 02/04/2025, 0 08/02/2024, 12/09/2022 Dental Prophy 02/06/2026 02/04/2025, 04/04/2024, 12/09/2022 Imm-DTaP/Tdap/Td (4 - Td or Tdap) 10/20/2027 10/19/2017, 04/25/2015, 07/17/2007 Dental FMX/Pano 12/12/2027 12/09/2022 Imm-Pneumococcal 50+ Completed 01/17/2019, 03/12/2015, 01/30/2009, Additional history exists Imm-Zoster, Recombinant Completed 11/05/19, 07/17/2019, 05/24/2010 Procedures Procedure Name Priority Date/Time Associated Diagnosis Comments DENTAL CASE MANAGEMENT - MOTIVATIONAL INTV Routine 02/04/2025 10:20 AM EDT Fractured dental congregation with loss of material PROPHYLAXIS - ADULT Routine 02/04/2025 1 0:20 AM EDT Fractured dental congregation with loss of material BITEWINGS - FOUR RADIOGRAPHIC IMAGES Routine 02/04/2025 10:20 AM EDT Fractured dental congregation with loss of material PERIODIC ORAL EVALUATION ESTABLISHED PATIENT Routine 02/04/2025 10:20 AM EDT Fractured dental congregation with loss of material CARIES RISK ASSESSMENT & DOC FINDING MOD RISK Routine 02/04/2025 10:20 AM EDT Fractured dental congregation with loss of material NUTRITIONAL COUNSELING CONTROL OF DENTAL DISEASE Routine 02/04/2025 10:20 AM EDT Fractured dental congregation with loss of material ORAL HYGIENE INSTRUCTIONS Routine 02/04/2025 10:20 AM EDT Fractured dental congregation with loss of material ORAL CANCER SCREENING Routine 02/04/2025 10:20 AM EDT Fractured dental congregation with loss of material CASE PRESENTATION SUBS DTL & EXTENSIVE TX PLN Routine 02/04/2025 10:20 AM EDT Fractured dental congregation with loss of material COMP PERIODONTAL EVALUATION - NEW/EST PATIENT Routine 08/02/2024 10:00 AM EDT Bruxism (teeth grinding) 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
--- OUTSIDE RECORDS SUMMARY | 2025-02-07 16:07 | XMS_ITS | Encounter Summary ---
Author Organization [facility] Address [address] [place] [address] Care Team Providers Care Lime Kiln Worker Helper Name Role Phone Chuyita Knowles MD Primary Care Provider [phone] Reason for Visit * Reason Onset Date Comments Pre-op Exam 01/24/2025 For ECT maint Encounter Details Date Type Department Care Team (Late st Contact Info) Description 01/24/2025 Telephone Internal Medicine - [facility] [address] [place], [place] [phone] Chuyita Knowles MD [address] [place], [place] Social History Tobacco Use Types Packs/Day Years Used Date Smoking Tobacco: Former Cigarettes 0.5 30 S tarted: 1970 Smokeless Tobacco: Never Alcohol Use Standard Drinks/Week Comments No 0 [...] care for your loved ones. For example, child guidance counselor or elderly care for an older adult? [...] Date Recorded What is your living situation? Unrecognized valu e 06/28/2024 Interpersonal Safety Answer Date Record ed Physical Abuse Unrecognized value 10/07/2024 Verbal Abuse Unrecognized value 10/07/2024 Comments No Sex and Gender Information Value Date Recorded Sex Assigned at Female 10/07/2024 9:02 AM EDT Legal Sex Female 4:33 AM EST Gender Identity Female 10/07/2024 9:02 AM EDT Sexual Orientation Not on file documented as of this encounter Functional Status * Are you deaf or do you have serious difficulty hearing? Answer Date of Assessment Author No 10/09/2024 3:01 AM EDT Deshawn Lopez RN * Are you blind or do you have serious difficulty seeing, even when wearing glasses? Answer Date of Assessment Author No 10/09/2024 3:01 AM EDT Deshawn Lopez RN * Do you have serious difficulty walking or climbing stairs? Answer Date of Assessment Author No 10/09/2024 3:01 AM EDT Deshawn Lopez RN * Do you have serious difficulty dressing or bathing? Answer Date of Assessment Author No 10/09/2024 3:01 AM EDT Deshawn Lopez RN * Because of a physical, mental, or emotional condition, do you have serious difficulty doing errandsalone such as visiting the doctor? Answer Date of Assessment Author No 10/09/2024 3:01 AM EDT Deshawn Lopez RN documented as of this encounter Mental Status * Because of a physical, mental, or emotional condition, do you have serious difficulty concentrating, remembering, or making decisions? (5 years old or older) Answer Entry Date Author No 10/09/2024 3:01 AM EDT Deshawn Lopez RN documented in this encounter Progress Notes * Olga Bills - 01/24/2025 12:20 PM EDT Paperwork placed in forms bin for review * Abdullahi Harrington - 01/24/2025 9:30 AM EDT Patient requires Preoperative Assessment: Date of surgery: 02-25-25 What surgery is patient having (gall bladder, cataract, appendix, etc...)?: ECT maint / currently aweekly treatment under anesthesia Surgeon's name: Dr Israel Min Office phone number of surgeon: [phone] Fax # for surgeons office: [phone] (Required) Where is surgery being performed? [facility] Diagnosis/problem for surgery: Treatment resistant depression Is an EKG required for the pre-op workup? Yes, CBC, Chem Profile / Michelle is faxing info to [phone] PCP: Chuyita Knowles MD Did you verify that the insurance below is correct? yes Patients insurance: Payor: [facility] MEDICARE / Plan: [employer] ONE CARE / Product Type:*No Product type* / documented in this encounter Plan of Treatment Upcoming Encounters Date Type Department Care Team (Late st Contact Info) Description 02/19/2025 9:30 AM EDT Consult Internal Medicine - [facility] [address] [facility] [place] [phone] Chuyita Knowles MD [address] [place], [place] [address] documented as of this encounter Visit Diagnoses Not on filedocumented in this encounter Care Teams Lime Kiln Worker Helper Relationship Specialty Start Date End Date Chuyita Knowles MD [address] [place], [place] [address] PCP - General Internal Medicine 01/22/25 documented as of this encounter
--- OUTSIDE RECORDS SUMMARY | 2025-02-07 16:07 | XMS_ITS | Encounter Summary ---
Author Organization [facility] Address [address] [place] [address] Care Team Providers Care Boxing Machine Operator Name Role Phone Chuyita Knowles MD Primary Care Provider [phone] Encounter Details Date Type Department Care Team (Late st Contact Info) Description 01/23/2025 Results Follow-Up Internal Medicine - [facility] [address] [place] [phone] Andrew Chinchilla, JUAN C [address] [place] [id number] Social History Tobacco Use Types Packs/Day Years [...] care for your loved ones. For example, exceptional children teacher or elderly care for an older [...] Entry Date Author No 10/09/2024 3:01 AM BENJAMÍNT Deshawn Lopez RN documented in this encounter Plan of Treatment Upcoming Encounters Date Type Department Care Team (Late st Contact Info) Description 02/19/2025 9:30 AM EDT Consult Internal Medicine - [facility] [address] [place], [place] [phone] Chuyita Knowles MD [address] [place], [place] documented as of this encounter Visit Diagnoses Not on filedocumented in this encounter Care Teams Boxing Machine Operator Relationship Specialty Start Date End Date Chuyita Knowles MD [address] [place], [place] PCP - General Internal Medicine 01/22/25 documented as of this encounter
--- OUTSIDE RECORDS SUMMARY | 2025-02-07 16:07 | XMS_ITS | Encounter Summary ---
Author Organization [facility] Address [address] [place] [address] Encounters * CPT with Medical [facility] at [place] on 2025-01-21 { reasonForRequest : GH reporting tension headache at the back of the head with somedizziness>restless of leg>Anxiousness , patientReports : Dizziness with positional change , denies :[ Worst Headache of life , New onset of vision loss , Sudden onset -unilateral weakness/gait disturbance , Fall with head strike and altered LOC ,"New onset of Slurred speech or difficulty finding words , Sudden Mental status changes", Head pain with fever chills and neck pain , Seizure activity , Headpain not relieved by medication greater than 8 hours , Head pain greater than 8 hours -unrelated to falls or injury , Head pain with nausea vomiting , Sensitive to light& quot;], chiefComplaints : Headache, Dizziness , pmh : Severe Persistent Mental Illness (SPMI), Hypertension, COPD/Asthma, Diabetes Mellitus Type 2 , allerg ies : Morphine, Aspirin, Penicillins, Ampicillin , otherAllergies :null,&qu ot;painAssessment : , visitOutcome : , additionalComments": 79 y.o female complains of Headache, Dizziness\nseen by us on 01/15\nPatient lives in assisted living and new to facility. \npatient was sent to [facility] to r/o htn crisis vs stroke.\[facility] hospital discharged UTI. currently on antibiotic\npatient symptoms started yesterday with a tension \ tight\ headache and some dizziness.\ndenies any nausea or vomiting and hasbeen able to tolerate PO. \npatient has been experiencing restless legs and not sleeping\nfacility clling to make referral and would samanta her to be seen for reassessment. \nI provided information on the mobile health provider response time and advised the patient and/or caregiver to monitor reportedsigns and symptoms. I discussed the warning signs of when to seek emergency care. } Barriers to Care: none GEN: Well appearing, in no distress or discomfort, alert and cooperative. HEENT: No abnormalities noted CV: RRR LUNGS: Clear equal Bilaterally ABD: N/A : N/A SKIN: Warm, well perfused. No skin rashes or abnormal lesions reported. MSK: No deformities. Tension and discomfort with firm palpation noted to the right trapezius at theoccipital origin. EXT: No clubbing, cyanosis, no edema NEURO: No focal deficits. Patient and daughter noted that she had increased anxiety today triggered by the cancellation of her primary care appointment and it's rescheduling to monday. When the patient has increased anxiety, she notes that she has right side tension headache, vertiginous like dizziness with ambulation, and an increase in her restless leg symptoms. Per patient and daughter the frequency of these symptoms have been increasing over the past few months. Patient notes no change in symptomology of increased anxiety with this visit. ROS negative other than listed above. Patients dated that she took 650Mg of Tylenol 3 hours ago with some efficacy. Patient noted her anxiety symptoms increased slightly upon this advertising copywriter's arrival. [facility] contacted and no further interventions required at time of visit patient to continue current care plan and follow-up with primary care and psychiatry (Appointment tomorrow). No red flags observed, patient educated on self soothing techniques and when to seek urgent/emergent care for new or worsening symptoms. IV_(FLUIDS_AND/OR_MEDICATION), MEDICATION_IM, EKG, POC_BLOODWORK, POC_FLU_STREP, COVID_TEST, ORTHOSTATIC_VITAL_SIGNS, PO_MEDICATION Written by Medical [facility] on 2025-01-21
--- OUTSIDE RECORDS SUMMARY | 2025-02-07 16:07 | XMS_ITS | Clinical Summary ---
Author Organization 175 [facility] Address [address] [place] [address] Phone Care Team Providers Care Club Room Attendant Name Role Phone Chuyita Knowles MD Primary Care Provider [phone] Allergies Active Allergy Reactions Criticality Noted Date Comments Ampicillin Rash Medium 02/25/2020 Aspirin GI intolerance Medium 12/16/2020 High dose, stomach ache Morphine Sulfate Nausea And Vomiting Medium 05/12/2011 Penicillins Rash Medium 05/12/2011 Medications blood-glucose meter misc Use to test blood sugar twice daily 09/04/19 24 Active Lacto 41/B.animalis, bifid/FOS (ULTIMATE PROBIOTIC-10 ORAL) Take 1 Tablet by mouth daily. 10/05/19 24 Active acetaminophen (TYLENOL) 325 mg tablet Take 2 Tablets by mouth every 6 hours as needed. Active fluticasone propionate (FLONASE) 50 mcg/actuation nasal spray 1 [place] by Nasal route daily. 07/26/19 24 Active zoledronic acid (RECLAST) 5 mg/100 mL piggyback 03/22/20 23 Active mirtazapine (REMERON) 15 mg tabletIndicati ons:Depression , unspecified depression type Take 2 tablets (30 mg total) by mouth at bedtime. 60 each 2 04/16/20 24 Active albuterol HFA (PROAIR HFA ; PROVENTIL HFA ; VENTOLIN HFA) 90 mcg/actuation inhaler Inhale 2 Puffs into the lungs every 6 hours as needed for Cough or Wheezing. 6.7 g 1 05/08/19 25 Active atorvastatin (LIPITOR) 20 mg tablet Take 1 tablet (20 mg total) by mouth 1 (one) time each day. 90 tablet 1 05/29/19 25 Active SITagliptin phosphate (Januvia) 100 mg tablet Take 1 tablet (100 mg total) by mouth 1 (one) time each day. 90 tablet 1 05/29/19 25 Active lisinopriL (PRINIVIL,ZEST RIL) 20 mg tablet Take 1 tablet (20 mg total) by mouth 1 (one) time each day. 90 tablet 1 05/29/19 25 Active polyethylene glycol (MIRALAX) 17 gram packet Take 17 g by mouth 1 (one) time each day if needed for constipation (Only use it when constipated for 2 days. Not daily unless needed.) for up to 20 doses. 51 g 06/04/19 25 Active lancets lancets Use to test blood sugar twice daily. One touch delica brand. 200 each 1 06/21/19 25 Active melatonin 5 mg tablet TAKE 1 TABLET BY MOUTH EVERY NIGHT AT BEDTIME NEEDED FOR INSOMNIA 28 tablet 5 07/24/19 25 Active fluticasone furoate-vilant Suzy (Breo Ellipta) 100-25 mcg/dose inhaler Inhale 1 Puff into the lungs daily. 1 each 3 07/24/19 25 Active glipiZIDE (GLUCOTROL XL) 2.5 mg 24 hr tablet Take 1 tablet (2.5 mg total) by mouth 1 (one) time each day. Do not crush, chew, or split. 180 tablet 08/20/19 25 Active senna-docusate (PERICOLACE) 8.6-50 mg per tablet Take 1 tablet by mouth 1 (one) time each day. 90 tablet 1 08/21/19 25 Active DULoxetine (CYMBALTA) [address] capsule Take 1 capsule (60 mg total) by mouth 1 (one) time each day. 08/15/19 25 Active gabapentin (NEURONTIN) 100 mg capsuleIndicat ions:Restless leg syndrome Take 1 capsule (100 mg total) by mouth 3 (three) times a day. 90 each 3 09/13/19 25 Active blood sugar diagnostic ([employer] Ver[employer] test strips) test strip USE TO TEST BLOOD SUGAR TWICE A DAY 100 each 1 09/18/19 25 Active gabapentin (NEURONTIN) 600 mg tablet Take 1 tablet (600 mg total) by mouth at bedtime. In addition to the 100mg TID dose. 90 tablet 09/25/19 25 Active pantoprazole (PROTONIX) 40 mg EC tablet Take 1 tablet (40 mg total) by mouth 2 (two) times a day. Do not crush, chew, or split. 60 each 3 09/26/19 25 2025 Active butalbital-victoriano taminophen-caf feine (ESGIC) 50-325-40 mg per capsule Take 1 capsule by mouth every 4 (four) hours if needed. Max Daily Amount: 6 capsules Active amLODIPine (NORVASC) 2.5 mg tablet Take 1 tablet (2.5 mg total) by mouth 1 (one) time each day. 30 each 5 10/18/19 25 2024 Active ondansetron (ZOFRAN) 4 mg tablet Take 1 tablet (4 mg total) by mouth 3 (three) times a day if needed for nausea or vomiting. 16 tablet 10/19/19 25 Active clonazePAM (KlonoPIN) 0.5 mg tabletIndicati ons:Anxiety Take 1 tablet (0.5 mg total) by mouth 2 (two) times a day if needed for anxiety for up to 15 days. Max Daily Amount: 1 mg 30 each 01/23/20 25 Active sertraline (ZOLOFT) 100 mg tablet Take 1 Tablet by mouth daily. 11/07/19 24 2024 Discontinued LORazepam (ATIVAN) 0.5 mg tablet Take 1 tablet (0.5 mg total) by mouth if needed. 07/23/19 25 2024 Discontinued(A lternate therapy) lamoTRIgine (LaMICtal) 100 mg tablet Take 1 tablet (100 mg total) by mouth 1 (one) time each day. 08/15/19 25 2024 Discontinued Active Problems Problem Noted Date Diagnosed Date Knee instability, unspecified laterality 025 Diarrhea 06/04/2024 Diabetic gastroparesis ([facility] V24, [facility] V28 ) 08/22/2022 Assessment & Plan (10/17/2024 7:33 PM EDT): Will get gastroenterology on board. Advised her to use pantoprazole for now for acid reflux. Will check her A1c for diabetes. Orders: Hemoglobin A1c; Future Microalbumin creatinine urine ratio; Future Ambulatory referral to Gastroenterology; Future Obstructive sleep apnea 04/26/2021 Overview (02/01/2024): [facility] Home sleep test 04/21/2021; weight [...] 2 diabetes mellitus wit h renal manifestations ([facility] V24, [facility] V28) 04/11/2019 Asthma-COPD overlap syndrome ([facility] V24, [facility]/ CC V28) 03/01/2018 Chronic obstructive pulmonar y disease ([facility] V24, [facility] V28) 03/01/2018 Pulmonary nodules 03/01/2018 Lung bullae ([facility] V24, [facility] V28) 8 Type II or unspecified type diabetes mellitus with ophthalmic manifestations, uncontrolled(250.52) ([facility] V24, [facility] V28) 08/22/2017 CKD (chronic kidney disease) stage 3, GFR 30-59 ml/min ([facility] V24, [facility] V28) 05/30/2017 Cataract 07/19/2016 Overview (02/01/2024): bilat Type 2 diabetes mellitus wit h cataract ([facility] V24, [facility] V28) 07/19/2016 Asthma 07/28/2015 Depression 07/28/2015 HTN [...] Encounters Date Type Department Care Team Description 01/24/2025 [facility] [address] [place] [address] [place], [place] [address] Chuyita Knowles MD 01/23/2025 Results Follow-Up Internal Medicine - [address] [place] [address] Andrew Chinchilla NP 01/22/2025 10:00 AM EDT [facility] [address] [place] [address] [place] [address] Andrew Chinchilla NP Iron deficiency anemia, unspecified iron deficiency anemia type (Primary Dx); Worsening renal function; Vertigo; Type 2 diabetes mellitus with cataract ([facility] V24, [facility] V28); Hyperlipidemia, unspecified hyperlipidemia type 01/22/2025 Telephone Internal Medicine - [address] [place] [address] Chuyita Knowles MD 01/22/2025 [facility] [address] [address] Andrew Chinchilla NP 01/07/[address] [address] Jose Kang MD 12/10/[address] [address] Jose Kang MD 11/28/2024 Billing Patient Not Present Internal [address] [address] Jose Kang MD Age-related cognitive decline (Primary Dx); Generalized anxiety disorder; Gastroparesis; Anxiety disorder, unspecified type; Insomnia due to other mental disorder; Major depressive disorder, recurrent, moderate (CMS/HCC V24, CMS/HCC V28) 11/22/2024 [facility] [address] [address] Jose Kang MD from Last 3 Months Immunizations Immunization Administration Dates Next Due Diptheria & Tetanus, 6wks to less than 7yo 12/09/2005 Influenza trivalent, 0.5mL ( Fluzone High-dose) 65yo and older 01/26/2023,01/21/2021,01/22/2020,01/17 Influenza, Unspecified 01/05/2022,01/27/2017 PPD Test 02/21/2018,01/31/2018 Pfizer SARS-CoV-2 COVID-19, mRNA, LNP-S, preservative free 01/23/2021 [...] Type 2 diabetes mellitus wit h cataract ([facility]/HCC V24, [facility]/HCC V28) 07/19/2016 DX:Type 2 diabetes mellitus with cataract (HCC) Lung nodule DX:Lung nodule Type 2 diabetes mellitus wit h renal manifestations ([facility]/HCC V24, [facility]/HCC V28) 08/22/2017 DX:Type 2 diabetes mellitus with renal manifestations (HCC) CKD (chronic kidney disease) stage 3, GFR 30-59 ml/min (CMS/HCC V24, CMS/HCC V28) 05/30/2017 DX:CKD (chronic kidney disea se) stage 3, GFR 30-59 ml/min (HCC) DM (diabetes mellitus), type 2, uncontrolled w/ophthalmic complication 08/22/2017 DX:DM (diabetes mellitus), type 2, uncontrolled w/ophthalmic complication Gastroparesis DIABETIC GP COPD (chronic obstructive pu lmonary disease) ([facility]/HCC V24, [facility]/HCC V28) JARETT on CPAP Family History Medical [...] care for your loved ones. For example, registered nurse maternal child or elderly care for an older adult? [...] Sign Reading Time Taken Comments Blood Pressure 134/74 01/22/2025 10:50 AM EDT Pulse 84 01/22/2025 10:50 AM EDT Temperature 36.5 C (97.7 F) 10/18/2024 10:46 PM EDT Respiratory Rate 20 10/18/2024 10:46 PM EDT Oxygen Saturation 98% 01/22/2025 10:22 AM EDT Inhaled Oxygen Concentration - - Weight 48.5 kg (107 lb) 01/22/2025 10:22 AM EDT Height 152.4 cm (5') 01/22/2025 10:22 AM EDT Body Mass Index 20.9 01/22/2025 10:22 AM EDT Plan of Treatment Upcoming Encounters Date Type Department Care Team (Late st Contact Info) Description 02/19/2025 9:30 AM EDT Consult Internal Medicine - [facility] [place] [phone] Chuyita Knowles MD [address] [facility] [place] Health Maintenance Due Date Last Done Comments Diabetes: Annual Foot Exam 12/24/1955 Diabetes: Annual Retina Eye Exam 12/24/1955 RSV Immunization Adult Patients (1 - 1-dose 75+ series) 12/24/2022 Depression Screening 04/24/2024 Diabetes: Annual Urine Albumin-Creatinine Ratio (uACR) 07/26/2024 07/27/2023 COVID-19 Vaccine ( season) 2024 02/05/2022, 01/23/2021, 06/15/2020, Additional history exists Influenza Vaccine (#1) 2024 , 01/26/2023, 02/01/2022, Additional history exists Medicare Annual Wellness Visit 06/28/2025 06/28/2024 Social Influencers of Health Screening 06/28/2025 06/28/2024 Diabetes: Blood Sugar Control Test (HGBA1C) 07/23/2025 01/22/2025, 01/26/2024, 01/26/2024, Additional history exists Falls Risk Assessment 10/07/2025 10/07/2024 Diabetes: Annual GFR (Glomerular Filtration Rate) 01/22/2026 01/22/2025, 10/18/2024, 10/13/2024, Additional history exists Hypertension/CHF/CAD Annual BMP Blood Test 01/22/2026 01/22/2025, 10/18/2024, 10/13/2024, Additional history exists DTaP,Tdap,and Td Vaccines (5 - Td or Tdap) 10/20/2027 10/19/2017, 04/25/2015, 07/17/2007, Additional history exists Cholesterol Screening (Lipid Panel) 01/22/2030 01/22/2025, 01/26/2024, 01/26/2024 Osteoporosis Screening (Bone Density Screening) [...] Procedure Name Priority Date/Time Associated Diagnosis Comments CBC WITH AUTO DIFFERENTIAL Routine 01/22/2025 11:01 AM EDT Iron deficiency anemia, unspecified iron deficiency anemia type BASIC METABOLIC PANEL Routine 01/22/2025 11:01 AM EDT Worsening renal function CBC AND DIFFERENTIAL Routine 01/22/2025 11:01 AM EDT Iron deficiency anemia, unspecified iron deficiency anemia type IRON AND TIBC Routine 01/22/2025 11:01 AM EDT Iron deficiency anemia, unspecified iron deficiency anemia type FOLATE Routine 01/22/2025 11:01 AM EDT Iron deficiency anemia, unspecified iron deficiency anemia type HEMOGLOBIN A1C Routine 01/22/2025 11:01 AM EDT Type 2 diabetes mellitus with cataract ([facility] V24, [facility] V28) LIPID PANEL WITH REFLEX TO DIRECT LDL Routine 01/22/2025 11:01 AM EDT Hyperlipidemia, unspecified hyperlipidemia type SCREENING MAMMOGRAPHY BI 2-VIEW BREAST INC CAD [...] Recently Relevant to Health Maintenance Results * Lipid panel with reflex to direct LDL (01/22/2025 11:01 AM EDT) Cholesterol 127 0 - 200 mg/dL LAB CHEMISTRY METHOD [facility] Triglycerides 84 0 - 150 mg/dL LAB CHEMISTRY METHOD 01/22/2025 3:41 PM [facility] HDL 69 >=40 mg/dL LAB CHEMISTRY METHOD 01/22/2025 3:41 PM [facility] LDL Calculated 41 0 - 100 mg/dL LAB CHEMISTRY METHOD 01/22/2025 3:41 PM [facility] Comment:Estimated LDL Calcul ated using equation: Total cholesterol - HDL cholesterol - (Triglycerides/5) VLDL Cholesterol Ramses 16.8 mg/dL LAB CHEMISTRY METHOD 01/22/2025 3:41 PM [facility] Non HDL Chol. (LDL+VLDL) 58 <145 mg/dL LAB CHEMISTRY METHOD 01/22/2025 3:41 PM [facility] Chol/HDL Ratio 1.8 0.0 - 4.4 LAB CHEMISTRY METHOD 01/22/2025 3:41 PM [facility] Blood Venous blood specimen / Unknown Venipuncture / Unknown 01/22/2025 11:01 AM EDT 01/22/2025 11:01 AM EDT us Andrew Chinchilla CHIEF ARCHITECT LAB BLOOD ORDERABLES Final Res ult [facility] [address] [place] [address], * (ABNORMAL) CBC auto differential (01/22/2025 11:01 AM EDT) WBC 8.8 4.8 - 10.8 K/mcL LAB HEMETOLOGY METHOD 01/22/2025 2:41 PM EDT [facility] RBC 4.00 3.80 - 4.80 M/mcL LAB HEMETOLOGY METHOD 01/22/2025 2:41 PM EDT [facility] Hemoglobin 11.6 11.5 - 16.0 g/dL LAB HEMETOLOGY METHOD 01/22/2025 2:41 PM EDT [facility] Hematocrit 35.6 35.0 - 47.0 % LAB HEMETOLOGY METHOD 01/22/2025 2:41 PM EDT [facility] MCV 89.2 79.0 - 98.0 FL LAB HEMETOLOGY METHOD 01/22/2025 2:41 PM EDT [facility] MCH 29.1 27.0 - 32.0 pcg LAB HEMETOLOGY METHOD 01/22/2025 2:41 PM EDT [facility] MCHC 32.6 32.0 - 37.0 g/dL LAB HEMETOLOGY METHOD 01/22/2025 2:41 PM EDT [facility] RDW 14.3 11.0 - 15.0 % LAB HEMETOLOGY METHOD 01/22/2025 2:41 PM EDT [facility] Platelets 293 130 - 400 K/mcL LAB HEMETOLOGY METHOD 01/22/2025 2:41 PM EDT [facility] MPV 9.2 7.0 - 11.0 FL LAB HEMETOLOGY METHOD 01/22/2025 2:41 PM EDT [facility] NRBC 0.0 <1.0 % LAB HEMETOLOGY METHOD 01/22/2025 2:41 PM [facility] NRBC Absolute 0.00 <0.10 K/mcL LAB HEMETOLOGY METHOD 01/22/2025 2:41 PM [facility] Neutrophils Relative 68.2 % LAB HEMETOLOGY METHOD 01/22/2025 2:41 PM [facility] Lymphocytes Relative 18.8 % LAB HEMETOLOGY METHOD 01/22/2025 2:41 PM [facility] Monocytes Relative 11.2 % LAB HEMETOLOGY METHOD 01/22/2025 2:41 PM [facility] Eosinophils Relative 0.8 % LAB HEMETOLOGY METHOD 01/22/2025 2:41 PM [facility] Basophils Relative 0.5 % LAB HEMETOLOGY METHOD 01/22/2025 2:41 PM [facility] Immature Granulocytes Relative 0.5 % LAB HEMETOLOGY METHOD 01/22/2025 2:41 PM [facility] Neutrophils Absolute 6.02 1.50 - 7.00 K/mcL LAB HEMETOLOGY METHOD 01/22/2025 2:41 PM [facility] Lymphocytes Absolute 1.66 1.00 - 5.00 K/mcL LAB HEMETOLOGY METHOD 01/22/2025 2:41 PM [facility] Monocytes Absolute 0.99 0.20 - 1.00 K/mcL LAB HEMETOLOGY METHOD 01/22/2025 2:41 PM [facility] Eosinophils Absolute 0.07 0.00 - 0.50 K/mcL LAB HEMETOLOGY METHOD 01/22/2025 2:41 PM [facility] Basophils Absolute 0.04 0.00 - 0.20 K/mcL LAB HEMETOLOGY METHOD 01/22/2025 2:41 PM EDT [facility] Immature Granulocytes Absolute 0.04(H) 0.00 - 0.03 K/[facility] LAB HEMETOLOGY METHOD 01/22/2025 2:41 PM EDT [facility] Blood Venous blood specimen / Unknown Venipuncture / Unknown 01/22/2025 11:01 AM EDT 01/22/2025 11:01 AM EDT Andrew Chinchilla CHIEF ARCHITECT LAB BLOOD ORDERABLES Final Res ult [facility] [address] [place] [address], [place] [phone] * Iron and TIBC (01/22/2025 11:01 AM EDT) Iron 56 40 - 150 mcg/dL LAB CHEMISTRY METHOD 01/22/2025 3:41 PM EDT [facility] TIBC 280 250 - 450 mcg/dL LAB CHEMISTRY METHOD 01/22/2025 3:41 PM EDT [facility] Iron Saturation 20 15 - 50 % LAB CHEMISTRY METHOD 01/22/2025 3:41 PM EDT [facility] Blood Venous blood specimen / Unknown Venipuncture / Unknown 01/22/2025 11:01 AM EDT 01/22/2025 11:01 AM EDT Andrew Chinchilla NP LAB BLOOD ORDERABLES Final Res ult [facility] [address] [place] [address], [place] [phone] * (ABNORMAL) Hemoglobin A1c (01/22/2025 11:01 AM EDT) Hemoglobin A1C 7.3(H) <6.5 % LAB CHEMISTRY METHOD 01/22/2025 10:09 PM EDT [facility] Mean Bld Glu Estim. 163 mg/dL LAB CHEMISTRY METHOD 01/22/2025 10:09 PM EDT [facility] Blood Venous blood specimen / Unknown Venipuncture / Unknown 01/22/2025 11:01 AM EDT 01/22/2025 11:01 AM EDT Andrew Chinchilla NP LAB BLOOD ORDERABLES Final Res ult Performing Organization Address City/[facility]/ZIP Co de Phone Number [facility] [address] [place] [address], [place] [phone] * (ABNORMAL) Folate (01/22/2025 11:01 AM EDT) Folate 17.2(H) 2.8 - 17.0 ng/ml LAB CHEMISTRY METHOD 01/22/2025 3:51 PM EDT [facility] Blood Venous blood specimen / Unknown Venipuncture / Unknown 01/22/2025 11:01 AM EDT 01/22/2025 11:01 AM EDT us Andrew Chinchilla NP LAB BLOOD ORDERABLES Final Res ult Performing Organization Address [facility]/ZIP Co de Phone Number [facility] [address] [place] [address], [place] [phone] * (ABNORMAL) Basic metabolic panel (01/22/2025 11:01 AM EDT) Sodium 140 133 - 145 mmol/L LAB CHEMISTRY METHOD 01/22/2025 3:41 PM EDT [facility] Potassium 5.0 3.5 - 5.5 mmol/L LAB CHEMISTRY METHOD 01/22/2025 3:41 PM EDT [facility] Chloride 109 96 - 110 mmol/L LAB CHEMISTRY METHOD 01/22/2025 3:41 PM EDT [facility] CO2 25 21 - 32 mmol/L LAB CHEMISTRY METHOD 01/22/2025 3:41 PM EDT [facility] Anion Gap 6 3 - 11 LAB CHEMISTRY METHOD 01/22/2025 3:41 PM T [facility] Glucose 102(H) 70 - 100 mg/dL LAB CHEMISTRY METHOD 01/22/2025 3:41 PM EDT [facility] BUN 21 5 - 25 mg/dL LAB CHEMISTRY METHOD 01/22/2025 3:41 PM EDT [facility] Creatinine 0.99 0.50 - 1.10 mg/dL LAB CHEMISTRY METHOD 01/22/2025 3:41 PM EDT [facility] eGFR 59(L) >=60 mL/min/1. 73m2 LAB CHEMISTRY METHOD 01/22/2025 3:41 PM EDT [facility] Comment:Calculation based on the Chronic Kidney Disease Epidemiology Collaboration (CKD-EPI) equation refit without adjustment for race. BUN/Creatinine Ratio 21.2 LAB CHEMISTRY METHOD 01/22/2025 3:41 PM EDT [facility] Calcium 9.7 8.5 - 10.5 mg/dL LAB CHEMISTRY METHOD 01/22/2025 3:41 PM EDT [facility] Blood Venous blood specimen / Unknown Venipuncture / Unknown 01/22/2025 11:01 AM EDT 01/22/2025 11:01 AM EDT us Andrew Chinchilla NP LAB BLOOD ORDERABLES Final Res ult [facility] [address] [place] [address], * SCREENING MAMMOGRAPHY BI 2-VIEW BREAST INC [...] Ratio (07/27/2023) Urine Albumin Creatinine Ratio Abstracted Historical Provider [facility] MAINTENANCE Final Result * Colonoscopy (01/18/2023) HM Colonoscopy No Interpretation , Abstracted Anatomical Region Laterality Modality Other us Historical Provider HEALTH MAINTENANCE Final Result * DXA BONE DENSITY STUDY [...] (World Health Organization Fracture Risk Assessment) [facility] Department of Internal Medicine recommends using [...] alternative screening schedule based on cresencio Dickson., [facility] May 12, 2011 for patients [...] years. (World HealthOrganization Fracture Risk Assessment) [facility] Department of Internal Medicine recommendsusing [...] screening schedule based on camilla Dickson al., NEJMJanuary 2011 for patients with osteopenia (based on hip BMD T-score) is as follows: * advanced osteopenia (T scores -2.00 to -2.49), BMD testing every year * moderate osteopenia (T scores -1.50 to -1.99), BMD testing every 5years mild osteopenia or normal BMD (T scores -1.50 and higher), BMD testingevery 15 years us Jose Kang MD IMG DXA PROCEDURES Final Result * Hepatitis C Screening (04/05/2016) [facility] Hepatitis C Screening Abstracted us Historical Provider HEALTH MAINTENANCE Final Result from Last 3 Months or Most Recently Relevant to Health Maintenance Insurance [facility] MEDICARE Member Subscriber Plan / Payer (Ef fective 2023-Present) Name:Bailee Barreto Relation to Subscriber:Self Name:Bailee Barreto Payer ID:[id number] Group ID:[id number] Type:Not on file Address: [facility] [address] [phone] Advance Directives Documents on File Type Date Recorded 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 Care Teams Club Room Attendant Relationship Specialty Start Date End Date Chuyita Knowles MD [address] [facility] [place] [phone] PCP - General Internal Medicine 01/22/25
[2025-02-14] VITALS (7 sets, daily range): BP systolic 121–163; BP diastolic 66–77; PULSE 72–84; RESP 13–20; TEMP 36.4–36.6; O2SAT 95–100; BMI 22.0
--- NOTE | 2025-02-14 06:45 | HO.ANESPROP2 ---
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 (Acute) MDD (major depressive disorder), recurrent episode, moderate (Acute) Gastroparesis (Acute) Diabetes (Acute) RLS (restless legs syndrome) (Acute) Past Medical History Medical History History of electroconvulsive therapy Fall Constipation Tension headache Peripheral neuropathy Akathisia Cerebral microvascular disease RLS (restless legs syndrome) Migraines Diabetes Hypertension Anxiety Family History Family history of problems with anesthesia: No Surgical History History of Problems with Anesthesia: No Social History Social History Household Members: None Housing: House Are you a primary senior care assistant to a significant other at home: No Do you presently have visiting nurse or other home services: No Patient Tobacco Use Status: Former Tobacco user Advance Directives: No Advance Directives Information Provided: Yes service: No Sexual orientation: Straight/Heterosexual Meds Allergies Allergy/AdvReac Type Severity Reaction Status Date / Time ampicillin Allergy Rash Verified 01/24/25 06:18 morphine Allergy Rash Verified 01/24/25 06:18 Penicillins Allergy Rash Verified 01/24/25 06:18 pork derived (porcine) Allergy Vomiting Verified 01/24/25 06:18 Exam Height,Weight and Vital Signs: Height 4 ft 11 in Weight 49.5 kg Last Vital Signs Temp 97.6 F 02/14/25 06:34 Pulse 74 02/14/25 06:34 Resp 20 02/14/25 06:34 BP 121/66 02/14/25 06:34 Pulse Ox 100 02/14/25 06:34 O2 Del Method Room Air 02/14/25 06:34 Airway Mallampati Class: II TM Dist: >3cm Neck ROM: Full Heart: rrr Lungs: cta Assessment and Plan Assessment Anesthesia Assessment: Anesthesia Plan Discussed and Chart Reviewed Final Anesthetic Review Family History of Problems with Anesthesia: No History of Problems with Anesthesia: No NPO: Yes ASA Class: III Final Preanesthetic Review: No Changes in Pt Med Stat, Meds/Allgs Chart Reviewed and Consent Obtained/Reviewed Patient Risk: Intermediate Procedure Risk: Intermediate Anesthetic Plan Anesthetic Plan: GA Disposition: Standard PACU
[2025-02-14] MEDS: Lactated Ringers 1,000 ML 50 ML IVCONT (06:48)
--- NOTE | 2025-02-14 07:08 | MHC.SHP ---
Pre-Procedural Eval Section A - 24 Hr Update-Section A only Date of Service: 02/14/25 The patient is an INPATIENT: No Changes since office visit: No Cold of Flu in the past 2 weeks, No New Medical Problems, No Changes in Medication and No Patient answered all questions Section B - Complete if H&P > 30 days Chief Complaint: depression Details of Present Illness: depression has improved. here for mECT Relevant Family History (Specify if Yes): No Relevant Social History: None Present Medications: see Short Stay Collaborative assessment Medical History: No relevant PMH History of Previous Operations: No relevant previous surgery Allergies: Allergies Allergy/AdvReac Type Severity Reaction Status Date / Time ampicillin Allergy Rash Verified 01/24/25 06:18 morphine Allergy Rash Verified 01/24/25 06:18 Penicillins Allergy Rash Verified 01/24/25 06:18 pork derived (porcine) Allergy Vomiting Verified 01/24/25 06:18 Review of Systems Sugical H&P ROS: Negative: Constitution, Cardiovascular, Respiratory, Neurological, Psychiatric, Hem-Onc, Allergic/Immunologic, Gastrointestinal, Genitourinary, Musculoskeletal, Integumentary, Endocrine and Eyes/Ears/Nose/Throat Exam Surgical H&P Exam: Normal: HEENT, Normal: Heart, Normal: Lungs, Normal: Extremities, Normal: Abdomen, Normal: Skin and Normal: Neurological Plan Diagnosis/Plan: Unchanged I have reviewed the history and physical and performed a pertinent physical examination on my patient. No changes have occurred unless specified. Time Spent With Patient Time: Total time managing care of this patient today _30___ minutes.
--- NOTE | 2025-02-14 07:15 | HO.ECTPROC ---
ECT Procedure Note Diagnosis/Treatment Date of Service: 02/14/25 Diagnosis: Major Depressive Disorder Previous ECT Date: 01/31/25 Current Treatment Number: 11 Interval Clinical Notes: Pt reports that she's feeling much better- less anxious. Denies SI. Bright affect. Denies any issues with last tx A/O x 3 Time: Total time managing care of this patient today __30__ minutes. ECT Settings Device: THYMATRON DGx Electrode Placement: Bifrontal Program/Pulse Width: 0.50 Energy Percent: 100 Seizure Duration By EEG (in seconds): 36 By Motor Observation (in seconds): 60 Medications Administration General Anesthetic: Etomidate (12 mg) Muscle Relaxant: Succinylcholine (60 mg) Ancillary Medications Cardiovascular Medications: Labetolol (5 mg- pre-treatment for HTN) Miscillaneous Medications: Propofol (30 mg) Airway Management Airway Management: Bag Mask Ventilation Treatment Recommendations No Changes Recommended: No change Pt Tolerated Procedure w/o Issue: Yes
== END 2025-02-14 08:40 | disposition home or self-care (01) ==
PROVIDERS: Visit Provider Psychiatry & Neurology Psychiatry
PROC: (CPT 90870; principal; 2025-02-14 07:30)
DX: F33.1 Major depressive disorder, recurrent, moderate (principal); F41.1 Generalized anxiety disorder; I10 Essential (primary) hypertension; E78.5 Hyperlipidemia, unspecified; E11.9 Type 2 diabetes mellitus without complications; Z79.51 Long term (current) use of inhaled steroids; Z79.899 Other long term (current) drug therapy; Z88.0 Allergy status to penicillin; Z88.5 Allergy status to narcotic agent
CPT/HCPCS: 90870; J0330; J1920; J2250; J2704

== ENCOUNTER → 2025-02-14 05:34 | Outpatient (BNV) | payer OTHER, SELFPAY | PROVIDERS: Visit Provider Psychiatry & Neurology Psychiatry | DX: F33.2 Major depressive disorder, recurrent severe without psychotic features (principal) | CPT/HCPCS: 90870 ==

== ENCOUNTER 2025-03-07 06:18 | Day surgery (SDC) | payer OTHER, SELFPAY ==
--- OUTSIDE RECORDS SUMMARY | 2025-03-06 11:11 | XMS_ITS | Encounter Summary ---
Author Organization [facility] Address [address] [place] [address] Care Team Providers Care [employer] Worker Name Role Phone Chuyita Knowles MD Primary Care Provider [phone] Encounter Details Date Type Department Care Team (Late st Contact Info) Description 01/23/2025 Results Follow-Up Internal Medicine - [facility] [address] [place] [address] Andrew Chinchilla, JUAN C [address] [place] [id number] Social History Tobacco Use Types Packs/Day Years [...] for your loved ones. 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 [...] of Assessment Author No 10/09/2024 3:01 AM Deshawn Clark RN * Do you have serious difficulty dressing or bathing? Answer Date of Assessment Author No 10/09/2024 3:01 AM Deshawn Clark RN * Because of a physical, mental, [...] Entry Date Author No 10/09/2024 3:01 AM Deshawn Clark RN documented in this encounter Plan of Treatment Upcoming Encounters Date Type Department Care Team (Late st Contact Info) Description 05/22/2025 10:00 AM EST Office Visit Internal Medicine - [address] [phone] Ramona Da Silva NP [address] [place] [address] 09/08/2025 10:00 AM EDT Office Visit Internal Medicine - [address] [phone] Chuyita Knowles MD [address] [place] [address] documented as of this encounter Visit Diagnoses Not on filedocumented in this encounter Care Teams [employer] Worker Relationship Specialty Start Date End Date Chuyita Knowles MD [address] [place] [address] PCP - General Internal Medicine 01/22/25 documented as of this encounter
--- OUTSIDE RECORDS SUMMARY | 2025-03-06 11:11 | XMS_ITS | Data Portability ---
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 No SOB or CP. No F/C, abd pain, urinary sxs. No alcohol, cannabis, nicotine, or other drug use. Current psychiatrist retired but was trying to taper me off lorazepam PRN . No recent increase in stressors or life circumstances. No SI or HI. VS reflect hypertension and tachycardia. SpO2 97% on RA. CV exam wnl. Lungs CTAB, no w/r/r. Hx, VS, exam not c/w cardiac or respiratory source of sxs. No s/sxs infection. Pt with likely increased anxiety. Unable to determine how often pt taking lorazepam, but given psychiatry wanted to taper and pt has not taken any in 3 days, she may be experiencing a component of benzodiazepine withdrawal. Pt was instructed to take her normal PRN dose (0.25mg) now. Her next psych appt in scheduled with a new psychiatrist on 09/17. Will message care partners to help facilitate sooner appt, if possible. [email or web address] Not available 08/25/2024 16:40:53 10/08/2024 10/08/2024 Ms. Barreto is a 78 yo F with Severe Persistent Mental Illness (SPMI), Hypertension, COPD/Asthma, Diabetes Mellitus Type 2 who is calling today about dizziness. Per patient and medic, took a medication for her restless leg syndrome because she s been having dizziness and unsteady on her feet since yesterday. With medic has persistent blood pressure readings over 200 systolic. Has a nurse that comes in the morning, but unclear if it was abnormal this morning. POC glucose with medic: 86. With medic, can walk steady with medic, but patient reports u nsteadiness. Seems anxious with medic. Having trouble sitting still. Denies chest pain. Denies headache. Has been taking hypertension medication as scheduled. Blood pressure remain hypertensive with medic. I do think she needs ER evaluation for HTN emergency vs urgency evaluation. Vs TIA vs CVA work up. Will need CT head imaging and blood pressure control and monitoring. Plan: -send to ER for HTN emergency and possible stroke eval. NIH 0 at this time, but dizziness is worrisome. Signed out to Tracy CISNEROS at 8:27pm at [facility]. I provided real -time medical direction via phone for this encounter, and was available for additional phone based assistance as needed. I have reviewed and agree with the Assessment and Plan as documented by the Aviation Project Engineer. We discussed the diagnostic uncertainty of home visits and the risk associated with this. In this case the patient and I felt transfer to the ER was safest for disposition and continued care as their needs exceeded what could safely be supported in the home setting. Not available 10/08/2024 20:44:18 10/13/2024 10/13/2024 As noted, we mikayla e called to see this patient regarding concerns of anxiety. Evaluation in the field was performed by my assembly worker colleague, as noted above, I provided real-time direction and supervision for this visit. The evaluation revealed 78y F with severe anxiety on benzodiapezepines with lock nox adminstration due to recurrent history of use at higher dose than prescribed. Patientr equesting transport to ED for ativan. Medic attempted to work w patient to make alternate plan to avoid ED presentation. He connected w daughter who provided additional hsitory and context, together attempted to develop plan. Ultimately, patient chose to proceed to ED. Impression: anxiety Plan: ED Primary care, consider short interval f/u and referral for additional services as able [facility] 10/13/2024 21:31:28 01/15/2025 01/15/2025 Ms. Barreto is a 79 yo F with Severe Persistent Mental Illness (SPMI), Hypertension, COPD/Asthma, Diabetes Mellitus Type 2 who called today with malaise and fatigue. Per patient and medic, now endorsing dizziness and vision changes within the last 20 minutes just prior to arrival of medic. Glucose 214 with medic. No ataxia with gait. Blood pressure in the 180s. While this could be HTN urgency or emergency, cannot r/o PRES vs ICH vs stroke. Activating urgent transport to closest stroke receiving. Patient was just discharged for behavioral health from the hospital. Transferred to [facility] for [facility] care. I provided real -time medical direction via phone for this encounter, and was available for additional phone based assistance as needed. I have reviewed and agree with the Assessment and Plan as documented by the Aviation Project Engineer. We discussed the diagnostic uncertainty of home visits and the risk associated with this. In this case the patient and I felt transfer to the ER was safest for disposition and continued care as their needs exceeded what could safely be supported in the home setting. Not available 01/15/2025 21:06:04 Plan of Treatment Reminders Order Date Submit Date Provider Last Modified By Organization Details Last Modified Time Details Appointments None recorded . Lab glucose, fingerst ick, blood 025 01/16/20 [facility], [address] [place] [address], [phone] 5 07:59:26 BMP, serum or plasma 025 10/09/19 [facility], [address] [place] [address], [phone] 5 21:36:55 Referral None recorded . Procedures None recorded . Surgeries None recorded . Imaging None recorded . Medication Orders None recorded . Patient TargetsNo targets recorded. Patient InstructionsNo instructions recorded. Reason for Referral None Reported. Results Created Date Observation Date Name Description Value Unit Range Abnormal Flag Note LastModifiedBy Organization Detail LastModifiedTime Result Notes None recorded. Medical Equipment None Reported. Allergies Allergen ID Allergen Name Allergen Category Reaction Reaction Severity Criticality Documentation Date Start Date Code Code System Note Provider Name and Address Organization Details Recorded Time 31908 ampicilli n medicatio n Not available Not available Not available 10/13/2024 733 RxNorm Not Available [facility] 5 21:37:53 5402 morphine medicatio n Not available Not available Not available 11/04/2023 7052 RxNorm Not Available [facility] 4 04:57:35 5403 aspirin medicatio n Not available Not available Not available 11/04/2023 1191 RxNorm Not Available [facility] 4 04:57:35 5404 Product containin g penicilli n (product) medicatio n Not available Not available Not available 11/04/2023 19569 8001 SNOMED Not Available [facility] 4 04:57:35 Medications Name Sig Start Date Stop Date Status Note LastModified by Organization Details LastModified Time butalbital-a cetaminophen -caffeine 50 mg-325 mg-40 mg capsule TAKE 1 CAPSULE BY MOUTH EVERY 4 HOURS NEEDED FOR HEADACHE active Not Available Not Available No t Available clonidine HCl 0.1 mg tablet TAKE 1 TABLET BY MOUTH UP TO TWICE DAILY NEEDED FOR ANXIETY active Not Available Not Available Not Available prednisone 10 mg tablet TAKE 4 TABLETS BY MOUTH ONCE DAILY FOR 2 DAYS, TAKE 3 TABS ONCE DAILY FOR 2 DAYS, TAKE 2 TABS ONCE DAILY FOR 2 DAYS, THEN TAKE 1 TAB ONCE DAILY FOR 2 DAYS active Not Available Not Available N ot Available gabapentin 600 mg tablet active Not Available Not Available Not Available atorvastatin 20 mg tablet TAKE 1 TABLET BY MOUTH ONCE DAILY active Not Available Not Available No t Available metocloprami de 5 mg/mL injection solution Take 10 mg by injection route. 2023 active Not Available Not Available Not Avai lable tizanidine 2 mg tablet TAKE 1 TABLET BY MOUTH TWICE DAILY FOR UP TO 10 DAYS NEEDED FOR MUSCLE SPASMS active Not Available Not Available No t Available cetirizine 10 mg tablet TAKE 1 TABLET BY MOUTH AT BEDTIME FOR 30 DAYS active Not Available Not Available No t Available azithromycin 250 mg tablet active Not Available Not Available Not Available senna 8.6 mg tablet active Not Available Not Available Not Available glipizide ER 10 mg tablet, extended release 24 hr TAKE 1 TABLET BY MOUTH ONCE DAILY WITH LUNCH active Not Available Not Available No t Available lisinopril 20 mg tablet active Not Available Not Available Not Available ondansetron HCl 4 mg tablet TAKE 1 TABLET BY MOUTH EVERY 8 HOURS NEEDED FOR NAUSEA active Not Available Not Available No t Available gabapentin 400 mg capsule active Not Available Not Available Not Available sertraline 100 mg tablet TAKE 1 TABLET BY MOUTH ONCE DAILY IN ADDITION TO 50MG TABLET FOR TOTAL DOSE OF 150MG active Not Available Not Available No t Available glipizide ER 5 mg tablet, extended release 24 hr TAKE 1 TABLET BY MOUTH DAILY AT LUNCH active Not Available Not Available No t Available amlodipine 5 mg tablet TAKE 1 TABLET BY MOUTH ONCE DAILY active Not Available Not Available No t Available prochlorpera zine maleate 10 mg tablet active Not Available Not Available Not Available tramadol 50 mg tablet active Not Available Not Available No t Available pantoprazole 20 mg tablet,delay ed release TAKE 1 TABLET BY MOUTH TWICE DAILY BEFORE MEAL(S) active Not Available Not Available No t Available propranolol 10 mg tablet TAKE 1 TABLET BY MOUTH 3 TIMES A DAY NEEDED FOR ANXIETY OR RESTLESSNES S active Not Available Not Available No t Available metocloprami de 5 mg tablet TAKE 1 TABLET BY MOUTH FOUR TIMES DAILY FOR 10 DAYS active Not Available Not Available Not Available ropinirole 0.25 mg tablet TAKE 1 TABLET BY MOUTH AT BEDTIME active Not Available Not Available No t Available dicyclomine 20 mg tablet TAKE 1 TABLET BY MOUTH EVERY 6 HOURS FOR 15 DAYS active Not Available Not Available No t Available meclizine 25 mg tablet active Not Available Not Available No t Available prochlorpera zine 25 mg rectal suppository active Not Available Not Available Not Available amlodipine 10 mg tablet TAKE 1 TABLET BY MOUTH DAILY active Not Available Not Available Not Available glipizide ER 2.5 mg tablet, extended release 24 hr active Not Available Not Available Not Available mirtazapine 30 mg tablet active Not Available Not Available Not Available esomeprazole magnesium 40 mg capsule,tulio yed release active Not Available Not Available Not Available docusate sodium 100 mg capsule active Not Available Not Available N ot Available gabapentin 300 mg capsule TAKE 1 CAPSULE BY MOUTH TWICE DAILY active Not Available Not Available No t Available sertraline 25 mg tablet TAKE 1 TABLET BY MOUTH ONCE DAILY IN ADDITION TO 100MG FOR A TOTAL DOSE OF 125MG active Not Available Not Available No t Available omeprazole 20 mg capsule,tulio yed release active Not Available Not Available Not Available mirtazapine 45 mg tablet active Not Available Not Available Not Available hydroxyzine HCl 25 mg tablet TAKE 1 TABLET BY MOUTH THREE TIMES DAILY NEEDED FOR ANXIETY active Not Available Not Available Not Available lisinopril 5 mg tablet TAKE 1 TABLET BY MOUTH ONCE DAILY active Not Available Not Available No t Available mirtazapine 15 mg tablet active Not Available Not Available Not Available sodium chloride 0.9 % intravenous solution Inject 1000 mL by intravenous route. 2023 active Not Available Not Available Not Avai lable polyethylene glycol 3350 17 gram/dose oral powder active Not Available Not Available Not Available albuterol sulfate HFA 90 mcg/actuatio n aerosol inhaler active Not Available Not Available Not Available hydroxyzine HCl 10 mg tablet active Not Available Not Available Not Available sertraline 50 mg tablet TAKE 1 TABLET BY MOUTH DAILY active Not Available Not Available Not Available metocloprami de 10 mg tablet Take 1 tablet 3 times a day by oral route. active Not Available Not Available No t Available simethicone 80 mg chewable tablet active Not Available Not Available Not Available mirtazapine 7.5 mg tablet TAKE 1 TABLET BY MOUTH EVERYDAY AT BEDTIME active Not Available Not Available No t Available aripiprazole 2 mg tablet active Not Available Not Available Not Available Januvia 100 mg tablet TAKE 1 TABLET BY MOUTH ONCE DAILY active Not Available Not Available No t Available diclofenac 1 % topical gel APPLY FILM TOPICALLY TO THE AFFECTED AREA TWICE DAILY NEEDED FOR MUSCLE PAIN active Not Available Not Available Not Available melatonin 5 mg tablet active Not Available Not Available No t Available sodium,potas sium,mag sulfates 17.5 gram-3.13 gram-1.6 gram oral soln TAKE 177 ML BY MOUTH SEE ADMIN INSTRUCTION S FOR 2 DOSES active Not Available Not Available No t Available OneTouch Verio test strips USE 1 STRIP TO CHECK GLUCOSE ONCE DAILY DIRECTED active Not Available Not Available Not Available Breo Ellipta 100 mcg-25 mcg/dose powder for inhalation INHALE 1 PUFF BY MOUTH ONCE DAILY active Not Available Not Available No t Available OneTouch Verio Flex Meter active Not Available Not Available Not Available OneTouch Delica Plus Lancet 30 gauge active Not Available Not Available Not Available Vitals Date Recorded Body temperature Oxygen saturation Oxygen saturation in Arterial blood by Pulse oximetry Respiratory rate Heart rate Systolic And Diastolic Provider Name and Address Organization Details Last Updated DateTime 5 97.1 [degF] 97 % 97 % 20 /min 100 /min 162/94 mm[Hg] Not Available [facility] 5 15:24:52 Date Recorded Body temperature Oxygen saturation Oxygen saturation in Arterial blood by Pulse oximetry Respiratory rate Heart rate Systolic And Diastolic Provider Name and Address Organization Details Last Updated DateTime 5 98.2 [degF] 99 % 99 % 18 /min 72 /min 218/105 mm[Hg] Not Available [employer] 20:03:38 Date Recorded Oxygen saturation Oxygen saturation in Arterial blood by Pulse oximetry Body temperature Respiratory rate Heart rate Systolic And Diastolic Systolic And Diastolic Provider Name and Address Organization Details Last Updated DateTime 5 97 % 97 % 97.7 [degF] 18 /min 87 /min 161/70 mm[Hg] 167/61 mm[Hg] Not Available [employer] 21:19:33 Date Recorded Heart rate Oxygen saturation Oxygen saturation in Arterial blood by Pulse oximetry Body temperature Respiratory rate Systolic And Diastolic Provider Name and Address Organization Details Last Updated DateTime 5 94 /min 100 % 100 % 98 [degF] 18 /min 182/100 mm[Hg] Not Available [employer] 21:03:06 Date Recorded Respiratory rate Oxygen saturation Oxygen saturation in Arterial blood by Pulse oximetry Heart rate Body temperature Systolic And Diastolic Provider Name and Address Organization Details Last Updated DateTime 5 18 /min 98 % 98 % 78 /min 98 [degF] 144/68 mm[Hg] Not Available [employer] 20:09:30 Social History None recorded. Functional Status None recorded. Mental Status None recorded. Family History Nothing Reported. Medical History No medical history recorded. Gynecological HistoryNo gynecological history recorded. Obstetrics History GPAL:G 0 P 0 0 0 0 Past Encounters Encounter ID Performer Location Encounter Start Date Encounter Closed Date Diagnosis/Indication Diagnosis SNOMED-CT Code Diagnosis ICD10 Code Diagnosis IMO Codes Diagnosis Note [id number] Supa Hernandez MD [facility] [address] [place] [phone] 10/05/2023 10:09:27 10/09/2023 22:22:23 Abdominal pain 08879865 R10.9 [id number] Dawood Baldwin MD [facility] [address] [place] [phone] 10/18/2023 19:15:28 10/18/2023 20:21:17 Disorder due to type 2 diabetes mellitus [id number] E11.8 This 77-year-ol d female with type 2 diabetes had hypoglycem ia earlier today but now her glucose is mid-range. Recently her diet was changed. She will continue her usual treatments and follow-up with her PCP. The patient agreed with this plan. [id number] JENNY PALMER MD [facility] [address] [place] [phone] 11/04/2023 16:38:34 11/05/2023 22:16:26 Nausea and vomiting [id number] R11.2 Evaluation in the field was performed by my assembly worker colleague, as noted above, I provided real-time direction and supervisio n for this visit. The evaluation revealed a 77-year-ol d female with a history of type 2 diabetes mellitus and gastropare sis, experienci ng ongoing issues with nausea, vomiting, and weight loss due to severe gastropare sis. She reports frequent ED visits, during which she received Carafate and MAALOX, but with not much improvemen t. Zofran no longer helps with nausea. Denies fever, chills, CP, SOB, diarrheaTh e patient is only on oral hypoglycem ic medication s: Januvia 100 mg daily and Glipizide. She reports that she has been taking both medication s for a very long time but has been experienci ng symptomati c episodes of hypoglycem ia. She was seen at a walk-in clinic, where the dose of Glipizide was decreased from 10 mg to 5 mg daily. The patient reports that she takes Glipizide after lunch. Her blood glucose levels usually range between 60-150, but there have been a few episodes where her fasting blood glucose was in the low to mid-40s.Th e patient reports weight loss due to poor oral intake from nausea. Her goal weight is 116 lbs, but her current weight is 106 lbs. She is 4'10 tall. The patient has a follow-up with her PCP on 11/06 and a follow-up with GI in a few weeks. VS : BP 130/70, HR 83, RR 16. SpO2 98 %, T 98.0BMP showed Na 138, K 4.5, Cl 108, Bicarb 20, BUN 43, Creat 1.2, Gluc 176ECG with no ST-T changes. QTC 393 Allergies reviewed: Morphine, Aspirin, Penicillin Impression :Nausea and vomiting due to gastropare sis Plan:NS 1 L IV [id number] 10 mg IV x1Rx for Reglan 5 mg QID sent to her pharmacyPt advised to discontinu e Zofran since it is not helping and can prolong QTc when taken together with ReglanAdvi sed to eat small portions throughout the dayGiven symptomati c hypoglycem ia episodes and the fact that her BG is well controlled (60-150 per her daily log, correspond ing to an Hgb A1c of 7, which is well controlled for her age), pt was advised to decrease the dose of Glipizide to 2.5 mg until seen by PCP on 11/06Pt may benefit from Glucerna TID given ongoing weight loss Primary care, considerGl ucerna TID given ongoing weight loss. Please consider extending the Rx for Reglan Pt was prescribed 10 day course only . Dispositio n: We discussed the diagnostic uncertaint y of home visits and the risk associated with this. In this case, the patient and I felt this to be an acceptable and reasonable amount of risk given the benefit of avoiding an ED visit. We discussed the need to seek care urgently/e mergently in the setting of any new or worsening serious symptoms, particular ly weakness, dizziness, CP, SOB, inability to tolerate PO intake due to nausea and vomiting or any other concerns. [id number] Deja Laguerre MD [facility] [address] [place] [phone] 11/08/2023 15:32:44 11/08/2023 22:24:02 Gastroparesis syndrome [id number] K31.84 77 year old female with gastropare sis, being evaluated for persistent nausea and loose stools today. Patient reports no fever/chil ls, no vomiting, but has been with a chronicall y reduced appetite and is losing weight. Prescribed a trial of reglan 5 mg QID and tramadol without effect. Has a GI who has mentioned the idea of a GI pacemaker to assist with her symptoms. Exam notable for normal vital signs, soft mildly tender abdomen, EKG normal with QTc 407. Presentati on consistent with acute on chronic nausea and abdominal discomfort , with likely gastropare sis suboptimal ly controlled on reglan 5 mg QID. Patient is safe to remain at home, with a trial of increasing the dose to 10 mg TID and FU outpatient teams for further evaluation . I have reviewed and agree with the assessment and plan as documented by the assembly worker. I provided real-time medical direction for this encounter and was immediatel y available to provide additional phone-base d assistance as needed. We discussed the diagnostic uncertaint y of home visits and associated risks. We discussed the need to seek care urgently/e mergently in the setting of any new or worsening symptoms. [id number] Amelie Restrepo MD [facility] [phone] 11/13/2023 06:46:08 11/13/2023 12:40:12 Dizziness [id number] R42 Azotemia 249613803 R79.8 9 [id number] Deja Laguerre MD [facility] - [address] [phone] 11/15/2023 18:06:52 11/15/2023 21:16:53 Anxiety 76277629 F41.9 77 year old with anxiety, being evaluated for acute episode of anxiety. Patient reports sudden onset of anxiety related to one of her medication s, however after speaking with her psychiatri st she is feeling much better now. Exam notable for normal vital signs. Presentati on consistent with acute on chronic anxiety, now improved after contacting her psychiatri st. Has some coping strategies , no safety concerns noted, continue home medication s and outpatient follow up as indicated. I have reviewed and agree with the assessment and plan as documented by the assembly worker. I provided real-time medical direction for this encounter and was immediatel y available to provide additional phone-base d assistance as needed. We discussed the diagnostic uncertaint y of home visits and associated risks. We discussed the need to seek care urgently/e mergently in the setting of any new or worsening symptoms. [id number] Horacio Redding MD [facility] [address] [place] [phone] 11/18/2023 10:53:19 11/20/2023 10:59:01 Pain in lower limb [id number] M79.606 Bilateral leg pain recently worked in ED with basic labs (no imaging) and presumptiv carmencita related to dehdration at this time. Pain persists. No radiation down legs nor symptoms of neuropathy . Feels more like muscle cramps. Advised to f/u with PCP for further labs in next week including Magnesium and also for possible therapy for restless leg syndrome. No s/s of cellulitis or fluid overload at this time. Discussed red flag signs for which to seek higher level of care. [id number] Deisy Jimenez MD [address] [phone] 06/06/2024 21:11:42 06/07/2024 15:21:52 Localized eruption of skin [id number] R21 [id number] DAVIN RODRÍGUEZ MD [address] [phone] 08/25/2024 15:24:40 08/25/2024 16:41:08 [id number] ZEN HARVEY MD [address] [phone] 10/08/2024 20:03:36 10/08/2024 22:32:12 Dizziness [id number] R42 [id number] Aminata Earl MD [place] [phone] 10/13/2024 21:19:26 10/14/2024 15:15:34 Anxiety 98255720 F41.9 [id number] ZEN HARVEY MD [address] [address] 01/15/2025 21:02:58 01/16/2025 13:39:16 Neurological symptom [id number] R29.90 [id number] Keysha Gonzales MD [address] [phone] 01/20/2025 20:09:27 01/20/2025 21:31:48 Headache disorder [id number] G44.89 [id number] As noted, we were called to see this patient regarding concerns of headache. Evaluation in the field was performed by my assembly worker colleague, as noted above, I provided real-time direction and supervisio n for this visit. The evaluation revealed 79 yo woman with anxiety and tension headache. Medic discussed symptoms with patient and her daughter by phone who both confirm that she has chronic anxiety that manifests as right sided tension headache as well as vertigo symptoms. She has planned follow up for these issues, though recently had an appointmen t moved which may have resulted in her current anxiety and symptoms. She has no recent trauma or falls. She took tylenol 650 about 3 hours ago with some improvemen t in her symptoms. She is alert and oriented, has intact neuro exam. Has had changes to medical appointmen ts causing anxiety. Impression :chronic tension headache without concern for stroke or neurologic event Plan:Todd nue self soothing techniques , consider additional tylenol later tonight Dispositio n: We discussed the diagnostic uncertaint y of home visits and the risk associated with this. In this case, the patient and I felt this to be an acceptable and reasonable amount of risk given the benefit of avoiding an ED visit. We discussed the need to seek care urgently/e mergently in the setting of any new or worsening serious symptoms, particular ly changes to consciousn ess, chest pain, dyspnea. Health Concerns Section Related Observation LastModified by Organization Detai ls LastModified Time None Recorded Concern Status LastModified by Organization Details LastModified Time None Recorded Advance Directives Directive None Recorded Payers Insurance Date Sequence Insurance Name Policy Number Policy Fuentes Covered Member ID Fuentes Member ID Guarantor Name 01/17/2025 1 [facility] - DOS ON OR AFTER 2022 - DUAL ELIGIBLE - GROUP HOME OPTIONS AND ONE CARE (MEDICARE REPLACEMENT/ADV ANTAGE - HMO) Bailee Estevan [id number] Bailee Barreto Notes Date Note Type Note Provider Name and Address Organization Details Recorded Time 08/25/2024 text/html CRC Nurse Triage Notes (Adolfo Dillon): Reason For Request: SOB/shaking/dizzy Denies: Increased work of breathing/labored with or without fever Unable to speak in full sentences without distress Discoloration of skin -cyanosis Needs to sleep sitting up, can t catch breath Shortness of breath in setting of confusion Chief Complaints: Breathing Problems, Dizziness PMH: Severe Persistent Mental Illness (SPMI), Hypertension, COPD/Asthma, Diabetes Mellitus Type 2 PMH Reviewed at 08/25/2024 - : Allergies Reviewed at 08/25/2024 - : Comments: 78 y.o female complains of Breathing Problems, Dizziness Pt calling reporting my breathing is heavy and I am dizzy . Pt reports this started yesterday, but she reports she feels today is worse. Pt reports dizziness is more of a lightheaded sensation. Pt speaking in full, complete sentences at time of visit. Pt states she was thinking of using her pump , clarified what pt means by this and pt clarifies it is her inhaler. Encouraged pt to use her inhaler while we are on the phone together while waiting for visit. I provided information on the mobile health provider response time and advised the patient and/or caregiver to monitor reported signs and symptoms. I discussed the warning signs of when to seek emergency care -Usman Dillon RN Aviation Project Engineer Organization Information for Jared Joe Business Legal Name: [facility] Address: [address] [place] [address], [place] [id number], Clinical Support Manager: Abdoul James MD [place] No.: [id number] Aviation Project Engineer POC Test Results from Jared Joe JUANA EKG (15:21:14) EKG test performed. Attachments uploaded as part of this test result can be found under Documents section. Rapid COVID antigen (15:21:15) COVID: - Rapid influenza antigen (15:21:16) Flu: - ..................... ..................... ..................... ..................... ..................... ..................... ............... Aviation Project Engineer Note From Gilbertovivian Jared: This 78-year-old female with a history including but not limited to anxiety/depression, HTN, COPD, DM type II, HLD requested a visit today to address three days of worsening anxiety related symptoms. Patient states when she seated she feels like her respiratory rate goes up and she feels j ittery in her extremities and her stomach. She also describes a lightheadedness feeling, says it's not dizziness. Patient states she has PRN Lorazepam 0.5 mg that she breaks in half. Patient states she doesn't take it every day and thinks she took one a few days ago. Patient denies any chest pain, headaches, dizziness, fevers, nausea, vomiting, diarrhea. Patient denies any new stressors. Patient is very anxious about the way she is currently feeling. Patient states she has an appointment with the new psychiatrist on 09/17/24, previous psychiatrist retired. Patient presents awake and alert, visibly anxious, speaking full sentences. She is mildly hypertensive and mildly tachycardic, afebrile. Nonfocal neurological exam. Normal gait. Lungs are clear throughout auscultation. Abdomen is soft, nontender, nondistended. No lower extremity edema. Unremarkable EKG is uploaded. Rapid COVID and flu testing are both negative. We discussed the diagnostic uncertainty of home visits and the risk associated with this. In this case, the patient and I felt this to be an acceptable and reasonable amount of risk given the benefit of avoiding an ED visit. I recommend she take her Lorazepam 0.25 mg now and monitor her symptoms closely. I advised her that [facility] will reach out to our nursing team and/or patient care coordinator to discuss a follow-up plan with the new psychiatrist. Instructed her to present to the emergency department for any new or worsening severe symptoms such as chest pain, severe shortness of breath, uncontrollable nausea/vomiting, focal weakness, altered mental status. The patient was given the opportunity to ask questions and is agreeable to this plan. ..................... ..................... ..................... ..................... ..................... ..................... ............... [facility] Consulted: Davin Rodríguez ..................... ..................... ..................... ..................... ..................... ..................... ............... Disposition: Fulfilled DAVIN RODRÍGUEZ MD [address] [place] [address],[address], [place], [address], [facility] 08/25/2024 16:41:06 10/08/2024 text/html ROS as noted in the HPI CRC Nurse Triage Notes (Halley Das): Reason For Request: Patient took a Pill, at 530 and now she feels Restless. Pill was for her nerves, and now Doesn't feel good. First time taking this pill. Chief Complaints: Weakness PMH: Severe Persistent Mental Illness (SPMI), Hypertension, COPD/Asthma, Diabetes Mellitus Type 2 PMH Reviewed at 10/08/2024 - : Allergies Reviewed at 10/08/2024 - : Comments: 78 y.o female Pt took Mirapex for restless leg . this is the first time she has taken it. She is feeling nausea, she took with food. She feels restless and feels she is having a reaction to the med. She denies any trouble swallowing or breathing but feels she has increased salivation. She has no rash or hives. But having neck pain . I provided information on the mobile health provider response time and advised the patient and/or caregiver to monitor reported signs and symptoms. I discussed the warning signs of when to seek emergency care. Aviation Project Engineer Organization Information for Reinier Levin Legal Name: [facility]. Address: [address] [place] [id number], Clinical Support Manager: Paco Cortes MD SAPPHIRE No.: [id number] Aviation Project Engineer POC Test Results from Reinier Levin Blood Glucose Measurement (20:18:53) Blood Glucose: 85 mg/dL ..................... ..................... ..................... ..................... ..................... ..................... ............... Aviation Project Engineer Note From Reinier Levin: Pt seen for primary complain of nausea & dizziness. Upon arrival met trujillo x 4 ambulatory Pt. Pt ambulating under her own power. Pt reports she believes she is having a reaction to a new medication (Mirapex) as she started feeling nauseous approx 30 min after taking the medication. Pt reports she has had ongoing dizziness and unsteady gait since [...] as noted. Pt has no neuro deficits. Due to Pt complaint and hypertension [facility] immediately contacted and advised of Pt complaint, presentation and exam findings. [facility] request Pt be sent to ED. EMS called via 911. Blood sugar 85. Further ALS care attempted but Pt refuses due to being insistent on other tasks prior to EMS arrival. Pt accompanied as she ambulates around her home, multiple attempts to get Pt to be seated to allow for further assessment and care unsuccessful. Pt care turned over to [facility] for transport to [facility]. Call closed. [facility] Lab Orders: BMP, serum or plasma: Not Performed Comment: Pt sent to ED via EMS ..................... ..................... ..................... ..................... ..................... ..................... ............... [facility] Consulted: Zen Harvey ..................... ..................... ..................... ..................... ..................... ..................... ............... Disposition: Fulfilled ZEN HARVEY MD [address] [place] [address],[address], [place], [address], [facility] 10/08/2024 20:45:58 10/13/2024 text/html CRC Nurse Triage Notes (Hans Hollingsworth): Reason For Request: Pt experiencing dizziness Patient Reports: Sudden onset -unilateral weakness/gait disturbance; Head pain with nausea vomiting; Dizziness with positional changeDenies: Worst Headache of life New onset of vision loss Fall with head strike and altered LOC New onset of Slurred speech or difficulty finding words Sudden Mental status changes Head pain with fever chills and neck pain Seizure activity Sensitive to light Chief Complaints: DizzinessPMH: Severe Persistent Mental Illness (SPMI), Hypertension, COPD/Asthma, Diabetes Mellitus Type 2PMH Reviewed at 10/13/2024 - 18:03Allergies Reviewed at 10/13/2024 - 18:03Comments: 78 y.o female complains of Dizziness - Started earlier today Pt reports feeling unwell dizziness with an unsteady gait - I feel like my head is in a fog . [facility] - Pt reports symptoms are not improving - My head feel tight - Headache - / - Nausea Denies chest pain - Denies SOB and fever Pt is requested a follow up requested Emergency treatment declined Per patient and medic, took a medication for her restless leg syndrome because she s been having dizziness and unsteady on her feet since yesterday. With medic has persistent blood pressure readings over 200 systolic. Has a nurse that comes in the morning, but unclear if it was abnormal this morning. POC glucose with medic: 86. With medic, can walk steady with medic, but patient reports u nsteadiness. Seems anxious with medic. Having trouble sitting still. Denies chest pain. Denies headache. Has been taking hypertension medication as scheduled. Blood pressure remain hypertensive with medic. I do think she needs ER evaluation for HTN emergency vs urgency evaluation. Vs TIA vs CVA work up. Will need CT head imaging and blood pressure control and monitoring. I provided information on the mobile health provider response time and advised the patient and/or caregiver to monitor reported signs and symptoms. I discussed the warning signs of when to seek emergency care. ..................... ..................... ..................... ..................... ..................... ..................... ............... Aviation Project Engineer Note From Jared Joe: This 78-year-old female with a history including but not limited to anxiety/depression, HTN, COPD, DM type II, HLD requested a visit today to address anxiety -related symptoms since this morning. Patient describes feeling jittery and unsteady on her feet. I saw this patient on 08/25/24 for similar symptoms. At the time she has PRN Lorazepam and we recommended she take 0.25 mg and follow-up with her psychiatrist. I spoke to the patient's daughter via [...] edema. Patient is requesting ambulance transport to [facility] for Ativan. Patient's daughter states this is a regular occurrence, isaiah treats her with Ativan and sends her home. 911 was initiated for ambulance transport to [facility] emergency department and SBAR was given to MADHU WRIGHT. ..................... ..................... ..................... ..................... ..................... ..................... ............... [facility] Consulted: Aminata Earl ..................... ..................... ..................... ..................... ..................... ..................... ............... Disposition: Fulfilled Aminata Earl MD [address] [place] [address],[address], [place], [phone], [facility] 10/13/2024 21:44:33 01/15/2025 text/html ROS as noted in the HPI HPI: Member calling in due to overall feeling of unwellness. Member is supposed to have procedure done tomorrow and has one of her diabetes medications on hold due to this. Member states her BS is elevated. Member had a visiting nurse there earlier today and was told her BP was elevated but did not give her the exact reading. Member also with c/o feeling dizzy and nauseous. ..................... ..................... ..................... ..................... ..................... ..................... ............... CRC Nurse Triage Notes (Maryan Chaney): Reason For Request: dizziness, weakness, nausea, vomiting Chief Complaints: Diabetes Related, Weakness, Dizziness, Nausea / Vomiting, High Blood Pressure PMH: Severe Persistent Mental Illness (SPMI), Hypertension, COPD/Asthma, Diabetes Mellitus Type 2 PMH Reviewed at 01/15/2025 - 19:18 Allergies Reviewed at 01/15/2025 - 19:18 Comments: HPI reviewed ..................... ..................... ..................... ..................... ..................... ..................... ............... Aviation Project Engineer Note From Cameron Tobin: Encountered patient conscious, alert and ambulatory. Patient [...] non-distended. Extremities free of trauma and edema. [facility] contacted: states patient should be seen emergently at a local stroke center for evaluation. 911 was arranged by this junior underwriter, on patients behalf. Patient care relinquished to [facility] ALS crew with verbal report given, transport destination [facility]. [facility] Lab Orders: glucose, fingerstick, blood: Performed Comment: 214 ..................... ..................... ..................... ..................... ..................... ..................... ............... [facility] Consulted: Zen Harvey ..................... ..................... ..................... ..................... ..................... ..................... ............... Disposition: Fulfilled ZEN HARVEY MD [address] [facility], [place], [phone], [place] [facility] [facility] [employer] 01/15/2025 22:20:55 01/20/2025 text/html CRC Nurse Triage Notes (Maryan Chaney): Reason For Request: GH reporting tension headache at the back of the head with some dizziness>restless of leg> Anxiousness Patient Reports: Dizziness with positional change Denies: Worst Headache of life New onset of vision loss Sudden onset -unilateral weakness/gait disturbance Fall with head strike and altered LOC New onset of Slurred speech or difficulty finding words Sudden Mental status changes Head pain with fever chills and neck pain Seizure activity Head pain not relieved by medication greater than 8 hours Head pain greater than 8 hours -unrelated to falls or injury Head pain with nausea vomiting Sensitive to light Chief Complaints: Headache, Dizziness PMH: Severe Persistent Mental Illness (SPMI), Hypertension, COPD/Asthma, Diabetes Mellitus Type 2 PMH Reviewed at 01/20/2025:25 Allergies Reviewed at 01/20/2025:25 Comments: 79 y.o female complains of Headache, Dizziness seen by us on 01/15 Patient lives in assisted living and new to facility. patient was sent to [facility] to r/o htn crisis vs stroke. [facility] discharged UTI. currently on antibiotic patient symptoms started yesterday with a tension tight headache and some dizziness. denies any nausea or vomiting and has been able to tolerate PO. patient has been experiencing restless legs and not sleeping facility clling to make referral and would samanta her to be seen for reassessment. I provided information on the mobile health provider response time and advised the patient and/or caregiver to monitor reported signs and symptoms. I discussed the warning signs of when to seek emergency care. ..................... ..................... ..................... ..................... ..................... ..................... ............... Aviation Project Engineer Note From Chay Mckeon: Barriers to Care: none GEN: Well appearing, in no distress or discomfort, alert and cooperative. HEENT: No abnormalities noted CV: RRR LUNGS: Clear equal Bilaterally ABD: N/A : N/A SKIN: Warm, well perfused. No skin rashes or abnormal lesions reported. MSK: No deformities. Tension and discomfort with firm palpation noted to the right trapezius at the occipital origin. EXT: No clubbing, cyanosis, no edema [...] her anxiety symptoms increased slightly upon this junior underwriter's arrival. [facility] contacted and no further interventions required at time of visit patient to continue current care plan and follow-up with primary care and psychiatry (Appointment tomorrow). No red flags observed, patient educated on self soothing techniques and when to seek urgent/emergent care for new or worsening symptoms. ..................... ..................... ..................... ..................... ..................... ..................... ............... [facility] Consulted: Keysha Gonzales ..................... ..................... ..................... ..................... ..................... ..................... ............... Disposition: Fulfilled Keysha Gonzales MD [address] [place] [address],[address] [facility], [place], [phone], JEMAL LINTON 01/20/2025 21:07:05 OBGyn Episode No OBEpisode recorded.
--- OUTSIDE RECORDS SUMMARY | 2025-03-06 11:11 | XMS_ITS | Clinical Summary ---
Author Organization [facility] Address [address] [place] [address] Phone Care Team Providers Care Account Support Manager Name Role Phone Chuyita Knowles MD Primary Care Provider [phone] Allergies Active Allergy Reactions Criticality Noted Date Comments Ampicillin Rash Medium 02/25/2020 Aspirin GI intolerance Medium 12/16/2020 High dose, stomach ache Morphine Sulfate Nausea And Vomiting Medium 05/12/2011 Penicillins Rash Medium 05/12/2011 Medications blood-glucose meter misc Use to test blood sugar twice daily 09/04/19 24 Active Lacto 41/B.animalis,b ifid/FOS (ULTIMATE PROBIOTIC-10 ORAL) Take 1 Tablet by mouth daily. 10/05/19 24 Active fluticasone propionate (FLONASE) 50 mcg/actuation nasal spray 1 [place] by Nasal route daily. 07/26/19 24 Active zoledronic acid (RECLAST) 5 mg/100 mL piggyback 03/22/20 23 Active mirtazapine (REMERON) 15 mg tabletIndicatio ns:Depression, [...] 28 tablet 5 07/24/19 25 Active fluticasone furoate-vilante roL (Breo Ellipta) 100-25 [...] 08/15/19 25 Active gabapentin (NEURONTIN) 100 mg capsuleIndicati ons:Restless leg syndrome Take 1 capsule (100 mg total) by mouth 3 (three) times a day. 90 each 3 09/13/19 25 Active blood sugar diagnostic (OneTouch Verio test strips) test strip USE TO [...] or split. 60 each 3 09/26/19 25 026 Active butalbital-acet aminophen-caffe ine (ESGIC) 50-325-40 mg per capsule Take 1 capsule by mouth every 4 (four) hours if needed. Max Daily Amount: 6 capsules Active amLODIPine (NORVASC) 2.5 mg tablet Take 1 tablet (2.5 mg total) by mouth 1 (one) time each day. 30 each 5 10/18/19 25 025 Active ondansetron (ZOFRAN) 4 mg tablet Take 1 tablet (4 mg total) by mouth 3 (three) times a day if needed for nausea or vomiting. 16 tablet 10/19/19 25 Active clonazePAM (KlonoPIN) 0.5 mg tabletIndicatio ns:Anxiety Take 1 tablet (0.5 mg total) by mouth 2 (two) times a day if needed for anxiety for up to 15 days. Max Daily Amount: 1 mg 30 each 01/23/20 25 Active lisinopriL (PRINIVIL,ZESTR IL) 20 mg tablet Take 1 tablet (20 mg total) by mouth 1 (one) time each day. 90 tablet 1 02/12/20 25 Active acetaminophen (TYLENOL) 325 mg tablet Take 2 tablets (650 mg total) by mouth every 6 (six) hours if needed for mild pain. 30 tablet 2 02/12/20 25 Active pyridoxine (B-6) 250 mg tablet Take 1 tablet (250 mg total) by mouth 1 (one) time each day. 90 tablet 02/12/20 25 Active omeprazole (PriLOSEC) [address] capsule Take 1 capsule (20 mg total) by mouth 1 (one) time each day. 90 capsule 02/12/20 25 Active simethicone (MYLICON) 80 mg chewable tablet Chew 1 tablet (80 mg total) every 6 (six) hours if needed for flatulence. 360 tablet 02/12/20 25 Active dicyclomine (BENTYL) 10 mg capsule Take 1 capsule (10 mg total) by mouth 4 (four) times a day (before meals and nightly). 120 capsule 10/21/20 25 Active rOPINIRole (REQUIP) 0.5 mg tabletIndicatio ns:restless leg syndrome Take 1 tablet (0.5 mg total) by mouth 1 (one) time each day in the morning. 90 each 1 02/20/20 25 Active rOPINIRole (REQUIP) 2 mg tabletIndicatio ns:restless leg syndrome Take 1 tablet (2 mg total) by mouth 1 (one) time each day. At 5 pm each 02/20/20 Active acetaminophen (TYLENOL) 325 mg tablet Take 2 Tablets by mouth every 6 hours as needed. Discontin ued(Reord er) lisinopriL (PRINIVIL,ZESTR IL) 20 mg tablet Take 1 tablet (20 mg total) by mouth 1 (one) time each day. 90 tablet 1 05/29/19 025 Discontin ued(Reord er) dicyclomine (BENTYL) 10 mg capsule Take 1 capsule (10 mg total) by mouth 4 (four) times a day (before meals and nightly). 01/14/20 025 Discontin ued(Reord er) omeprazole (PriLOSEC) [address] capsule Take 1 capsule (20 mg total) by mouth 1 (one) time each day. 01/11/20 025 Discontin ued(Reord er) rOPINIRole (REQUIP) 0.5 mg tablet Take 1 tablet (0.5 mg total) by mouth 1 (one) time each day. 01/11/20 025 Discontin ued(Reord er) rOPINIRole (REQUIP) 2 mg tablet Take 1 tablet (2 mg total) by mouth at bedtime. 01/11/20 025 Discontin ued(Reord er) simethicone (MYLICON) 80 mg chewable tablet Discontin ued(Reord er) rOPINIRole (REQUIP) 0.5 mg tabletIndicatio ns:restless leg syndrome Take 1 tablet (0.5 mg total) by mouth 1 (one) time each day in the morning. 30 tablet 02/14/20 025 Discontin ued(Reord er) rOPINIRole (REQUIP) 2 mg tabletIndicatio ns:restless leg syndrome Take 1 tablet (2 mg total) by mouth 1 (one) time each day. At 5 pm 30 tablet 02/14/20 25 025 Discontin ued(Reord er) Active Problems Problem Noted Date Diagnosed Date Knee instability, unspecified laterality 025 Diarrhea 06/04/2024 Diabetic gastroparesis ([facility] V24, [facility] V28 ) 08/22/2022 Assessment & Plan (10/17/2024 7:33 PM EDT): Will get gastroenterology on board. Advised her to use pantoprazole for now for acid reflux. Will check her A1c for diabetes. Orders: Hemoglobin A1c; Future Microalbumin creatinine urine ratio; Future Ambulatory referral to Gastroenterology; Future Obstructive sleep apnea 04/26/2021 Overview (02/01/2024): [facility] Home sleep test 04/21/2021; weight 128 pounds; [...] 2 diabetes mellitus wit h renal manifestations ([facility]/HCC V24, CMS/[facility] V28) 04/11/2019 Asthma-COPD overlap syndrome (CMS/HCC V24, CMS/H CC V28) 03/01/2018 Chronic obstructive pulmonar y disease (CMS/HCC V24, CMS/HCC V28) 03/01/2018 Pulmonary nodules 03/01/2018 Lung bullae ([facility] V24, [facility] V28) 8 Type II or unspecified type diabetes mellitus with ophthalmic manifestations, uncontrolled(250.52) ([facility] V24, [facility] V28) 08/22/2017 CKD (chronic kidney disease) stage 3, GFR 30-59 ml/min ([facility] V24, [facility] V28) 05/30/2017 Cataract 07/19/2016 Overview (02/01/2024): bilat Type 2 diabetes mellitus wit h cataract ([facility] V24, [facility] V28) 07/19/2016 Asthma 07/28/2015 Depression 07/28/2015 HTN [...] Encounters Date Type Department Care Team Description 02/19/2025 9:30 AM EDT Consult Internal Medicine - [facility] [address] [place] [address] Chuyita Knowles MD Type 2 diabetes mellitus with cataract ([facility] V24, [facility] V28) (Primary Dx); Hyperlipidemia, unspecified hyperlipidemia type; Hypertension, unspecified type; Moderate episode of recurrent major depressive disorder ([facility] V24, [facility] V28); Anxiety 02/13/2025 Telephone Internal Medicine - [address] [phone] Chuyita Knowles MD 02/10/2025 [facility] [address] [phone] Chuyita Knowles MD 01/24/2025 Telephone Internal [address] [phone] Chuyita Knowles MD 01/23/2025 Results Follow-Up Internal [address] [phone] Andrew Chinchilla NP 01/22/2025 10:00 AM EDT Office Visit Internal [address] [phone] Andrew Chinchilla NP Iron deficiency anemia, unspecified iron deficiency anemia type (Primary Dx); Worsening renal function; Vertigo; Type 2 diabetes mellitus with cataract ([facility] V24, [facility] V28); Hyperlipidemia, unspecified hyperlipidemia type 01/22/2025 [facility] [address] [phone] Chuyita Knowles MD 01/22/2025 Telephone Internal [address] [phone] Anderw Chinchilla NP 01/07/2025 Telephone Internal Medicine [address] [phone] Jose Kang MD 12/10/2024 [facility] [address] [phone] Jose Kang MD from Last 3 Months [...] Type 2 diabetes mellitus wit h cataract (CMS/HCC V24, CMS/HCC V28) 07/19/2016 DX:Type 2 diabetes mellitus with cataract (HCC) Lung nodule DX:Lung nodule Type 2 diabetes mellitus wit h renal manifestations ([facility] V24, [facility] V28) 08/22/2017 DX:Type 2 diabetes mellitus with renal manifestations (HCC) CKD (chronic kidney disease) stage 3, GFR 30-59 ml/min ([facility] V24, [facility] V28) 05/30/2017 DX:CKD (chronic kidney disea se) stage 3, GFR 30-59 ml/min ([facility]) DM (diabetes mellitus), type 2, uncontrolled w/ophthalmic complication 08/22/2017 DX:DM (diabetes mellitus), type 2, uncontrolled w/ophthalmic complication Gastroparesis DIABETIC GP COPD (chronic obstructive pu lmonary disease) ([facility] V24, [facility] V28) JARETT on CPAP Family History Medical [...] for your loved ones. For example, child welfare manager or elderly care for an older adult? [...] Sign Reading Time Taken Comments Blood Pressure 138/84 02/19/2025 9:25 AM EDT aut o Pulse 82 02/19/2025 9:25 AM EDT Temperature 36.5 C (97.7 F) 10/18/2024 10:46 PM EDT Respiratory Rate 20 10/18/2024 10:46 PM EDT Oxygen Saturation 98% 01/22/2025 10:22 AM EDT Inhaled Oxygen Concentration - - Weight 51 kg (112 lb 6.4 oz) 02/19/2025 9:25 AM EDT Height 152.4 cm (5') 02/19/2025 9:25 AM EDT Body Mass Index 21.95 02/19/2025 9:25 AM EDT Plan of Treatment Upcoming Encounters Date Type Department Care Team (Late st Contact Info) Description 05/22/2025 10:00 AM EST Office Visit Internal Medicine - [address] [phone] Ramona Da Silva NP [address] [place] [address] 09/08/2025 10:00 AM EDT Office Visit Internal Medicine - [address] [phone] Chuyita Knowles MD [address] [place] [phone] Health Maintenance Due Date Last Done Comments [...] 11/05/2019, 06/23, 05/24/2010 Breast Cancer Screening Discontinued 08/11/19 24, 08/08/2022, 07/30/2021, Additional history exists HIB Vaccines [...] EDT Type 2 diabetes mellitus with cataract ([facility] V24, [facility] V28) LIPID PANEL WITH REFLEX TO DIRECT [...] to direct LDL (01/22/2025 11:01 AM EDT) [facility] Cholesterol 127 0 - 200 mg/dL LAB CHEMISTRY METHOD 01/22/2025 3:41 PM EDT [facility] Triglycerides 84 0 - 150 mg/dL LAB CHEMISTRY METHOD 01/22/2025 3:41 PM EDT [facility] HDL 69 >=40 mg/dL LAB CHEMISTRY METHOD 01/22/2025 3:41 PM EDT [facility] LDL Calculated 41 0 - 100 mg/dL LAB CHEMISTRY METHOD 01/22/2025 3:41 PM EDT [facility] Comment:Estimated LDL Calcul ated using equation: Total cholesterol - HDL cholesterol - (Triglycerides/5) VLDL Cholesterol Ramses 16.8 mg/dL LAB CHEMISTRY METHOD 01/22/2025 3:41 PM EDT [facility] Non HDL Chol. (LDL+VLDL) 58 <145 mg/dL LAB CHEMISTRY METHOD 01/22/2025 3:41 PM EDT [facility] Chol/HDL Ratio 1.8 0.0 - 4.4 LAB CHEMISTRY METHOD 01/22/2025 3:41 PM EDT [facility] Blood Venous blood specimen / Unknown Venipuncture / Unknown 01/22/2025 11:01 AM EDT 01/22/2025 11:01 AM EDT us Andrew Chinchilla NP LAB BLOOD ORDERABLES Final Res ult [facility] [address] [place] [address], * (ABNORMAL) CBC auto differential (01/22/2025 11:01 AM EDT) WBC 8.8 4.8 - 10.8 K/mcL LAB HEMETOLOGY METHOD 01/22/2025 2:41 PM EDT [facility] RBC 4.00 3.80 - 4.80 M/mcL LAB HEMETOLOGY METHOD 01/22/2025 2:41 PM EDT [facility] Hemoglobin 11.6 11.5 - 16.0 g/dL LAB HEMETOLOGY METHOD 01/22/2025 2:41 PM EDT [facility] Hematocrit 35.6 35.0 - 47.0 % LAB HEMETOLOGY METHOD 01/22/2025 2:41 PM EDT [facility] MCV 89.2 79.0 - 98.0 FL LAB HEMETOLOGY METHOD [facility]/22[facility]25 [facility] MCH 29.1 27.0 - 32.0 pcg LAB HEMETOLOGY METHOD 01/22/2025 2:41 PM EDT [facility] MCHC 32.6 32.0 - 37.0 g/dL LAB HEMETOLOGY METHOD 01/22/2025 2:41 PM [facility] RDW 14.3 11.0 - 15.0 % LAB HEMETOLOGY METHOD 01/22/2025 2:[facility] Platelets 293 130 - 400 K/mcL LAB HEMETOLOGY METHOD 01/22/2025 2:41 [facility] MPV 9.2 7.0 - 11.0 FL LAB HEMETOLOGY METHOD 01/22/2025 2:41 [facility] NRBC 0.0 <1.0 % LAB HEMETOLOGY METHOD 01/22/2025 2:41 [facility] NRBC Absolute 0.00 <0.10 K/mcL LAB HEMETOLOGY METHOD 01/22/2025 2:41 PM EDT [facility] Neutrophils Relative 68.2 % LAB HEMETOLOGY METHOD 01/22/2025 2:41 PM EDT [facility] Lymphocytes Relative 18.8 % LAB HEMETOLOGY METHOD 01/22/2025 2:41 [facility] Monocytes Relative 11.2 % LAB HEMETOLOGY METHOD 01/22/2025 2:41 PM [facility] Eosinophils Relative 0.8 % LAB HEMETOLOGY METHOD 01/22/2025 2:41 PM EDT [facility] Basophils Relative 0.5 % LAB HEMETOLOGY METHOD 01/22/2025 2:41 PM EDT [facility] Immature Granulocytes Relative 0.5 % LAB HEMETOLOGY METHOD 01/22/2025 2:41 PM EDT [facility] Neutrophils Absolute 6.02 1.50 - 7.00 K/mcL LAB HEMETOLOGY METHOD 01/22/2025 2:41 PM EDT [facility] Lymphocytes Absolute 1.66 1.00 - 5.00 K/mcL LAB HEMETOLOGY METHOD 01/22/2025 2:41 PM EDT [facility] Monocytes Absolute 0.99 0.20 - 1.00 K/mcL LAB HEMETOLOGY METHOD 01/22/2025 2:41 PM EDT [facility] Eosinophils Absolute 0.07 0.00 - 0.50 K/mcL LAB HEMETOLOGY METHOD 01/22/2025 2:41 PM EDT [facility] Basophils Absolute 0.04 0.00 - 0.20 K/mcL LAB HEMETOLOGY METHOD 01/22/2025 2:41 PM EDT [facility] Immature Granulocytes Absolute 0.04(H) 0.00 - 0.03 K/mcL LAB HEMETOLOGY METHOD 01/22/2025 2:41 PM EDT [facility] Blood Venous blood specimen / Unknown Venipuncture / Unknown 01/22/2025 11:01 AM EDT 01/22/2025 11:01 AM EDT us Andrew Chinchilla NP LAB BLOOD ORDERABLES Final Res ult [facility] [address] [place] [address], * Iron and TIBC (01/22/2025 11:01 AM EDT) Iron 56 40 - 150 mcg/dL LAB CHEMISTRY METHOD 01/22/2025 3:41 PM EDT [facility] TIBC 280 250 - 450 mcg/dL LAB CHEMISTRY METHOD 01/22/2025 3:41 PM EDT [facility] Iron Saturation 20 15 - 50 % LAB CHEMISTRY METHOD 01/22/2025 3:41 PM EDT [facility] Blood Venous blood specimen / Unknown Venipuncture / Unknown 01/22/2025 11:01 AM EDT 01/22/2025 11:01 AM EDT us Andrew Chinchilla NP LAB BLOOD ORDERABLES Final Res ult Performing Organization Address [facility]/ZIP Co de Phone Number [facility] [address] [place] [address], [place] [phone] * (ABNORMAL) Hemoglobin A1c (01/22/2025 11:01 AM EDT) [facility] Hemoglobin A1C 7.3(H) <6.5 % LAB CHEMISTRY METHOD 01/22/2025 10:09 PM EDT [facility] Mean Bld Glu Estim. 163 mg/dL LAB CHEMISTRY METHOD 01/22/2025 10:09 PM EDT [facility] Blood Venous blood specimen / Unknown Venipuncture / Unknown 01/22/2025 11:01 AM EDT 01/22/2025 11:01 AM EDT us Andrew Chinchilla NP LAB BLOOD ORDERABLES Final Res ult [facility] [address] [place] [address], [place] [phone] * (ABNORMAL) Folate (01/22/2025 11:01 AM EDT) Folate 17.2(H) 2.8 - 17.0 ng/ml LAB CHEMISTRY METHOD 01/22/2025 3:51 PM [facility] Blood Venous blood specimen / Unknown Venipuncture / Unknown 01/22/2025 11:01 AM EDT 01/22/2025 11:01 AM EDT us Andrew Chinchilla PATIENT ACCESS LAB BLOOD ORDERABLES Final Res ult [facility] [address] [place] [address], * (ABNORMAL) Basic metabolic panel (01/22/2025 11:01 AM EDT) Sodium 140 133 - 145 mmol/L LAB CHEMISTRY METHOD 01/22/2025 3:41 PM [facility] Potassium 5.0 3.5 - 5.5 mmol/L LAB CHEMISTRY METHOD 01/22/2025 3:41 PM [facility] Chloride 109 96 - 110 mmol/L LAB CHEMISTRY METHOD 01/22/2025 3:41 PM [facility] CO2 25 21 - 32 mmol/L LAB CHEMISTRY METHOD 01/22/2025 3:41 PM [facility] Anion Gap 6 3 - 11 LAB CHEMISTRY METHOD 01/22/2025 3:41 PM [facility] Glucose 102(H) 70 - 100 mg/dL LAB CHEMISTRY METHOD 01/22/2025 3:41 PM [facility] BUN 21 5 - 25 mg/dL LAB CHEMISTRY METHOD 01/22/2025 3:41 PM [facility] Creatinine 0.99 0.50 - 1.10 mg/dL LAB CHEMISTRY METHOD 01/22/2025 3:41 PM [facility] eGFR 59(L) >=60 mL/min/1. 73m2 LAB CHEMISTRY METHOD 01/22/2025 3:41 PM [facility] Comment:Calculation based on the Chronic Kidney Disease Epidemiology Collaboration (CKD-EPI) equation refit without adjustment for race. BUN/Creatinine Ratio 21.2 LAB CHEMISTRY METHOD 01/22/2025 3:41 PM EDT [facility] Calcium 9.7 8.5 - 10.5 mg/dL LAB CHEMISTRY METHOD 01/22/2025 3:41 PM EDT [facility] Blood Venous blood specimen / Unknown Venipuncture / Unknown 01/22/2025 11:01 AM EDT 01/22/2025 11:01 AM EDT us Andrew Chinchilla NP LAB BLOOD ORDERABLES Final Res ult [facility] [address] [place] [address], [place] [phone] * SCREENING MAMMOGRAPHY BI 2-VIEW BREAST INC [...] * Urine Albumin Creatinine Ratio (07/27/2023) Pathologist [facility] Urine Albumin Creatinine Ratio Abstracted Historical Provider [facility] MAINTENANCE Final Result * Colonoscopy (01/18/2023) Pathologist [facility] Colonoscopy No Interpretation , Abstracted Anatomical Region Laterality Modality Other [facility] Provider [facility] Final Result * DXA BONE DENSITY STUDY [...] (World Health Organization Fracture Risk Assessment) [facility] Department of Internal Medicine recommends using [...] alternative screening schedule based on cresencio Dickson., [facility] May 12, 2011 for patients [...] years. (World HealthOrganization Fracture Risk Assessment) [facility] Department of Internal Medicine recommendsusing National [...] alternative screening schedule based on cresencio Dickson., NEJMJanuary 2011 for patients with osteopenia (based on hip BMD T-score) is as follows: * advanced osteopenia (T scores -2.00 to -2.49), BMD testing every year * moderate osteopenia (T scores -1.50 to -1.99), BMD testing every 5years mild osteopenia or normal BMD (T scores -1.50 and higher), BMD testingevery 15 years Jose Kang MD [facility] DXA PROCEDURES Final Result * Hepatitis C Screening (04/05/2016) [facility] Hepatitis C Screening Abstracted Historical Provider HEALTH MAINTENANCE Final Result from Last 3 Months or Most Recently Relevant to Health Maintenance Insurance [facility] MEDICARE Member Subscriber Plan / Payer (Ef fective 2023-Present) Name:Bailee Barreto Relation to Subscriber:Self Name:Bailee Barreto Payer ID:[id number] Group ID:[id number] Type:Not on file Address: [place] [address] [address] [id number] Advance Directives Documents on File Type Date Recorded Patient Inspector Experimental Assembly Expl anation Health Care Decision (hx) 06/13/2023 [...] (hx) 06/13/2023 AD HALEY DIRECTIVE Care Teams Account Support Manager Relationship Specialty Start Date End Date Chuyita Knowles MD [address] [place], [place] PCP - General Internal Medicine 01/22/25
--- OUTSIDE RECORDS SUMMARY | 2025-03-06 11:11 | XMS_ITS | Clinical Summary ---
Author Organization [facility] Address [address] [place] [address] Care Team Providers Care Tow Bar Driver Name Role Phone Unavailable Primary Care Provider [...] Description 02/04/2025 10:20 AM EDT Office Visit [facility] [address] [place] [phone] Yash Garcias RDH from Last 3 Months [...] Description 03/11/2025 9:40 AM EST Office Visit [facility] [address] [place] [phone] Yas Curtis, DDS [address] [place] [address] 08/06/2025 10:20 AM EDT Office Visit [facility] [address] [place] [phone] Yash Garcias, [facility] [address] [place] [address] Health Maintenance Due Date Last Done Comments Hepatitis C Screening 1945 Medicare Annual Wellness Visit 12/24/1965 Bone Density Screening 12/24/2012 Falls Prevention 12/24/2012 Imm-RSV (adult) (1 - 1-dose 75+ series) 12/24/2022 Alcohol and Drug Screen 04/24/2024 Depression Annual Screen 04/24/2024 [id number] ( season) 2024 021 Imm-Influenza (#1) 2024 [...] Routine 02/04/2025 10:20 AM EDT Fractured dental jehovah's witness with loss of material PROPHYLAXIS - ADULT Routine 02/04/2025 1 0:20 AM EDT Fractured dental jehovah's witness with loss of material BITEWINGS - FOUR RADIOGRAPHIC IMAGES Routine 02/04/2025 10:20 AM EDT Fractured dental jehovah's witness with loss of material PERIODIC ORAL EVALUATION ESTABLISHED PATIENT Routine 02/04/2025 10:20 AM EDT Fractured dental jehovah's witness with loss of material CARIES RISK ASSESSMENT & DOC FINDING MOD RISK Routine 02/04/2025 10:20 AM EDT Fractured dental jehovah's witness with loss of material NUTRITIONAL COUNSELING CONTROL OF DENTAL DISEASE Routine 02/04/2025 10:20 AM EDT Fractured dental jehovah's witness with loss of material ORAL HYGIENE INSTRUCTIONS Routine 02/04/2025 10:20 AM EDT Fractured dental jehovah's witness with loss of material ORAL CANCER SCREENING Routine 02/04/2025 10:20 AM EDT Fractured dental jehovah's witness with loss of material CASE PRESENTATION SUBS DTL & EXTENSIVE TX PLN Routine 02/04/2025 10:20 AM EDT Fractured dental jehovah's witness with loss of material COMP PERIODONTAL EVALUATION - NEW/EST PATIENT Routine 08/02/2024 10:00 AM EDT Bruxism (teeth grinding) 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 INTRAORAL - COMP SERIES OF RADIOGRAPHIC IMAGES Routine 12/09/2022 3:40 PM EDT Encounter for dental examination from Last 3 Months or Most Recently Relevant to Health Maintenance Insurance [facility]
[2025-03-07] VITALS (8 sets, daily range): BP systolic 139–174; BP diastolic 71–90; PULSE 73–85; RESP 12–25; TEMP 36.2–36.9; O2SAT 97–100; BMI 22.6
[2025-03-07 07:11] LABS: Glucose, Whole Blood 92 mg/dL (60-115)
--- NOTE | 2025-03-07 07:24 | HO.ANESPROP2 ---
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 (Acute) MDD (major depressive disorder), recurrent episode, moderate (Acute) Gastroparesis (Acute) Diabetes (Acute) RLS (restless legs syndrome) (Acute) Past Medical History Medical History History of electroconvulsive therapy Fall Constipation Tension headache Peripheral neuropathy Akathisia Cerebral microvascular disease RLS (restless legs syndrome) Migraines Diabetes Hypertension Anxiety Functional capacity: independent ambulation Family History Family history of problems with anesthesia: No Surgical History History of Problems with Anesthesia: No Social History Social History Household Members: None Housing: House Are you a primary family day carer to a significant other at home: No Do you presently have visiting nurse or other home services: No Patient Tobacco Use Status: Former Tobacco user Are you DNR?: No Advance Directives: No Advance Directives Information Provided: Yes service: No Sexual orientation: Straight/Heterosexual Meds Allergies Allergy/AdvReac Type Severity Reaction Status Date / Time ampicillin Allergy Rash Verified 01/24/25 06:18 morphine Allergy Rash Verified 01/24/25 06:18 Penicillins Allergy Rash Verified 01/24/25 06:18 pork derived (porcine) Allergy Vomiting Verified 01/24/25 06:18 Exam Exam Date and Time: 03/07/25 Height,Weight and Vital Signs: Height 4 ft 11 in Weight 50.802 kg Last Vital Signs Temp 97.8 F 03/07/25 06:52 Pulse 73 03/07/25 06:52 Resp 23 H 03/07/25 06:52 BP 139/71 03/07/25 06:52 Pulse Ox 97 03/07/25 06:52 O2 Del Method Room Air 03/07/25 06:52 Pertinent Lab Results Pertinent Lab Results: Laboratory Tests 03/07/25 07:08 POC Glucose 92 Airway TM Dist: >3cm Neck ROM: Full Loose/Missing/Broken Teeth: No Heart: normal Lungs: normal Other: normal Assessment and Plan Final Anesthetic Review Family History of Problems with Anesthesia: No History of Problems with Anesthesia: No NPO: Yes ASA Class: III Final Preanesthetic Review: No Changes in Pt Med Stat, Meds/Allgs Chart Reviewed, Consent Obtained/Reviewed and Anes Risks/Benef Reviewed Patient Risk: Intermediate Procedure Risk: Intermediate Anesthetic Plan Anesthetic Plan: GA Disposition: Standard PACU
--- NOTE | 2025-03-07 07:27 | P.HPSUR_ITS ---
Pre-Procedural Eval Section A - 24 Hr Update-Section A only Date of Service: 03/07/25 The patient is an INPATIENT: No Changes since office visit: No Cold of Flu in the past 2 weeks, No New Medical Problems, No Changes in Medication and No Patient answered all questions The patient has been examined within 24 hours of the surgical procedure. The History & Physical has been completed within 30 days and I have reviewed it.: No Section B - Complete if H&P > 30 days Chief Complaint: depression Details of Present Illness: depressed, anxious Relevant Family History (Specify if Yes): No Relevant Social History: None Present Medications: see Short Stay Collaborative assessment Medical History: No relevant PMH History of Previous Operations: No relevant previous surgery Allergies: Allergies Allergy/AdvReac Type Severity Reaction Status Date / Time ampicillin Allergy Rash Verified 01/24/25 06:18 morphine Allergy Rash Verified 01/24/25 06:18 Penicillins Allergy Rash Verified 01/24/25 06:18 pork derived (porcine) Allergy Vomiting Verified 01/24/25 06:18 Review of Systems Sugical H&P ROS: Negative: Constitution, Cardiovascular, Respiratory, Neurologic al, Hem-Onc, Allergic/Immunologic, Gastrointestinal, Genitourinary, Musculoskeletal, Integumentary, Endocrine and Eyes/Ears/Nose/Throat and Yes, Specify: Psychiatric (depressed and naxious) Exam Surgical H&P Exam: Normal: HEENT, Normal: Heart, Normal: Lungs, Normal: Extremities, Normal: Abdomen, Normal: Skin and Normal: Neurological Plan Diagnosis/Plan: Unchanged I have reviewed the history and physical and performed a pertinent physical examination on my patient. No changes have occurred unless specified. Time Spent With Patient Time: Total time managing care of this patient today ____ minutes.
--- NOTE | 2025-03-07 09:05 | HO.ECTPROC ---
ECT Procedure Note Diagnosis/Treatment Date of Service: 03/07/25 Diagnosis: Major Depressive Disorder Previous ECT Date: 02/14/25 Current Treatment Number: 12 Treatment: Maintenance Interval Clinical Notes: Pt reports overall improvement in her mood with ECT but endorses some depression and significant anxiety. She denies SI. She denies any issues with last tx. A/O x 3. Affect fairly bright, well groomed (make-up, manicured nails). Will schedule next tx for 3 wks and t/w will reach out to pt's outpatient psychiatrist to determine if she should return sooner. Time: Total time managing care of this patient today ____ minutes. ECT Settings Device: THYMATRON DGx Electrode Placement: Bifrontal Program/Pulse Width: 0.50 Energy Percent: 100 Seizure Duration By EEG (in seconds): 26 By Motor Observation (in seconds): 26 Medications Administration General Anesthetic: Etomidate (16 (per anesthesiology note- pt received 16 mg at last tx, t/w wrote 12 mg in error)) Muscle Relaxant: Succinylcholine (60 mg) Ancillary Medications Cardiovascular Medications: Labetolol (5 mg ) Miscillaneous Medications: Propofol (30 mg) Airway Management Airway Management: Bag Mask Ventilation Treatment Recommendations No Changes Recommended: No change Pt Tolerated Procedure w/o Issue: Yes
== END 2025-03-07 09:36 | disposition home or self-care (01) ==
PROVIDERS: Visit Provider Psychiatry & Neurology Psychiatry
PROC: (CPT 90870; principal; 2025-03-07 08:00)
DX: F33.2 Major depressive disorder, recurrent severe without psychotic features (principal); F41.9 Anxiety disorder, unspecified; I10 Essential (primary) hypertension; E78.5 Hyperlipidemia, unspecified; E11.9 Type 2 diabetes mellitus without complications; Z79.51 Long term (current) use of inhaled steroids; Z79.899 Other long term (current) drug therapy; Z88.0 Allergy status to penicillin; Z88.5 Allergy status to narcotic agent
CPT/HCPCS: 82947; 90870; J0330; J1920; J2704

== ENCOUNTER → 2025-03-07 06:18 | Outpatient (BNV) | payer OTHER, SELFPAY | PROVIDERS: Visit Provider Psychiatry & Neurology Psychiatry | DX: F33.2 Major depressive disorder, recurrent severe without psychotic features (principal) | CPT/HCPCS: 90870 ==

== ENCOUNTER 2025-03-31 05:54 | Day surgery (SDC) | payer OTHER, SELFPAY ==
--- OUTSIDE RECORDS SUMMARY | 2025-03-11 00:23 | XMS_ITS | Data Portability ---
Author Organization [facility], 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 [email or web address] Not available 08/25/2024 16:40:53 10/08/2024 10/08/2024 Ms. [...] out to Tracy CISNEROS at 8:27pm at [facility]. I provided real -time medical direction via phone for this encounter, and was available for additional phone based assistance as needed. I have reviewed and agree with the Assessment and Plan as documented by the Farm[employer]. We discussed the diagnostic uncertainty of home [...] in the field was performed by my health and wellness coach colleague, as noted above, I provided real-time [...] for additional services as able [facility] 10/13/2024 21:31:28 01/15/2025 01/15/2025 [...] behavioral health from the hospital. Transferred to [facility] for continued care. I provided real -time medical direction via phone for this encounter, and was available for additional phone based assistance as needed. I have reviewed and agree with the Assessment and Plan as documented by the Farmworkers. We discussed the diagnostic uncertainty of home [...] Lab glucose, fingerst ick, blood 025 01/16/20 [facility], [address] [place] [address], [phone] 5 07:59:26 BMP, serum or plasma 025 10/09/19 [facility], [address] [place] [address], [phone] 5 21:36:55 Referral None recorded . Procedures [...] Name and Address Organization Details Recorded Time 95192 ampicilli n medicatio n Not available Not available Not available 10/13/2024 733 RxNorm Not Available [facility] - production 5 21:37:53 5402 morphine medicatio n Not available Not available Not available 11/04/2023 7052 RxNorm Not Available [facility] 4 04:57:35 5403 aspirin medicatio n Not available Not available Not available 11/04/2023 1191 RxNorm Not Available [facility] 4 04:57:35 5404 Product containin g penicilli n (product) medicatio n Not available Not available Not available 11/04/2023 45089 8001 SNOMED Not Available [facility] 4 04:57:35 Medications Name Sig Start Date [...] /min 72 /min 218/105 mm[Hg] Not Available [employer] 20:03:38 Date Recorded Oxygen saturation Oxygen saturation in Arterial blood by Pulse oximetry Body temperature Respiratory rate Heart rate Systolic And Diastolic Systolic And Diastolic Provider Name and Address Organization Details Last Updated DateTime 5 97 % 97 % 97.7 [degF] 18 /min 87 /min 161/70 mm[Hg] 167/61 mm[Hg] Not Available [employer] 21:19:33 Date Recorded Heart rate Oxygen saturation Oxygen saturation in Arterial blood by Pulse oximetry Body temperature Respiratory rate Systolic And Diastolic Provider Name and Address Organization Details Last Updated DateTime 5 94 /min 100 % 100 % 98 [degF] 18 /min 182/100 mm[Hg] Not Available [employer] 21:03:06 Date Recorded Respiratory rate Oxygen saturation Oxygen saturation in Arterial blood by Pulse oximetry Heart rate Body temperature Systolic And Diastolic Provider Name and Address Organization Details Last Updated DateTime 5 18 /min 98 % 98 % 78 /min 98 [degF] 144/68 mm[Hg] Not Available [employer] 20:09:30 Social History None recorded. Functional Status None recorded. Mental Status None recorded. Family History Nothing Reported. Medical History No medical history recorded. Gynecological HistoryNo gynecological history recorded. Obstetrics History GPAL:G 0 P 0 0 0 0 Past Encounters Encounter ID Performer Location Encounter Start Date Encounter Closed Date Diagnosis/Indication Diagnosis SNOMED-CT Code Diagnosis ICD10 Code Diagnosis IMO Codes Diagnosis Note [id number] Supa Hernandez MD [facility] [address] [place] [id number] 10/05/2023 10:09:27 10/09/2023 22:22:23 Abdominal pain 49447835 R10.9 [id number] Dawood Baldwin MD [facility] [address] [place] [phone] 10/18/2023 19:15:28 10/18/2023 20:21:17 Disorder due to type 2 diabetes mellitus 102704413 E11.8 This 77-year-ol d female with type 2 diabetes had hypoglycem ia earlier today but now her glucose is mid-range. Recently her diet was changed. She will continue her usual treatments and follow-up with her PCP. The patient agreed with this plan. [id number] JENNY PALMER MD [facility] [address] [place] [phone] 11/04/2023 16:38:34 11/05/2023 22:16:26 Nausea and vomiting [id number] R11.2 Evaluation in the field was performed by my health and wellness coach colleague, as noted above, I provided real-time [...] to gastropare sis Plan:NS 1 L IV [id number] 10 mg IV x1Rx for Reglan 5 [...] nausea and vomiting or any other concerns. [id number] Deja Laguerre MD [facility] [address] [place] [phone] 11/08/2023 15:32:44 11/08/2023 22:24:02 Gastroparesis syndrome [id number] K31.84 77 year old female with gastropare [...] assessment and plan as documented by the health and wellness coach. I provided real-time medical direction for this encounter and was immediatel y available to provide additional phone-base d assistance as needed. We discussed the diagnostic uncertaint y of home visits and associated risks. We discussed the need to seek care urgently/e mergently in the setting of any new or worsening symptoms. [id number] Amelie Restrepo MD [facility] - [address] [phone] 11/13/2023 06:46:08 11/13/2023 12:40:12 Dizziness 284729129 R42 Azotemia 199512855 R79.8 9 [id number] Deja Laguerre MD [facility] - [address] [address] 11/15/2023 18:06:52 11/15/2023 21:16:53 Anxiety 85221669 F41.9 77 year old with anxiety, being [...] assessment and plan as documented by the health and wellness coach. I provided real-time medical direction for this encounter and was immediatel y available to provide additional phone-base d assistance as needed. We discussed the diagnostic uncertaint y of home visits and associated risks. We discussed the need to seek care urgently/e mergently in the setting of any new or worsening symptoms. [id number] Horacio Redding MD [facility] [address] [place] [id number] 11/18/2023 10:53:19 11/20/2023 10:59:01 Pain in lower limb 04305812 M79.606 Bilateral leg pain recently worked in [...] which to seek higher level of care. [id number] Deisy Jimenez MD [address] [phone] 06/06/2024 21:11:42 06/07/2024 15:21:52 Localized eruption of skin [id number] R21 [id number] DAVIN RODRÍGUEZ MD [address] [phone] 08/25/2024 15:24:40 08/25/2024 16:41:08 [id number] ZEN HARVEY MD [address] [phone] 10/08/2024 20:03:36 10/08/2024 22:32:12 Dizziness [id number] R42 [id number] Aminata Earl MD [place] [phone] [id number] 10/13/2024 21:19:26 10/14/2024 15:15:34 Anxiety 78962267 F41.9 [id number] ZEN HARVEY MD [address] [phone] 01/15/2025 21:02:58 01/16/2025 13:39:16 Neurological symptom 075368925 R29.90 [id number] Keysha Gonzales MD [address] [phone] 01/20/2025 20:09:27 01/20/2025 21:31:48 Headache disorder 052279899 G44.89 [id number] As noted, we were called to see this patient regarding concerns of headache. Evaluation in the field was performed by my health and wellness coach colleague, as noted above, I provided real-time [...] Fuentes Member ID Guarantor Name 01/17/2025 1 [facility] - DOS ON OR AFTER 2022 - DUAL ELIGIBLE - [facility] [employer] AND ONE [employer] (MEDICARE REPLACEMENT/ADV ANTAGE - HMO) Bailee Estevan [id number] Bailee Barreto Notes Date Note Type Note [...] to seek emergency care -Usman Dillon RN [employer] Organization Information for Jared Joe Business Legal Name: [facility] Address: [address] [place] [address], [place] [address], Metal Cleaner: Abdoul James MD [place] No.: [id number] [employer] POC Test Results from Jared Joe JUANA EKG (15:21:14) EKG test performed. Attachments uploaded as part of this test result can be found under Documents section. Rapid COVID antigen (15:21:15) COVID: - Rapid influenza antigen (15:21:16) Flu: - ..................... ..................... ..................... ..................... ..................... ..................... ............... [employer] Note From Gilbertovivian Jared: This 78-year-old female [...] reach out to our nursing team and/or career development coordinator to discuss a follow-up plan with the new psychiatrist. Instructed her to present to the emergency department for any new or worsening severe symptoms such as chest pain, severe shortness of breath, uncontrollable nausea/vomiting, focal weakness, altered mental status. The patient was given the opportunity to ask questions and is agreeable to this plan. ..................... ..................... ..................... ..................... ..................... ..................... ............... [facility] Consulted: Davin Rodríguez ..................... ..................... ..................... ..................... ..................... ..................... ............... Disposition: Fulfilled DAVIN RODRÍGUEZ MD [address] [place] [address],[address], [place], [phone], [employer] 08/25/2024 16:41:06 10/08/2024 text/html ROS as noted [...] signs of when to seek emergency care. [employer] Organization Information for Reinier Levin Legal Name: [facility] [employer]. Address: [address] [place] [address], Metal Cleaner: Paco Cortes MD SAPPHIRE No.: [id number] [employer] POC Test Results from Reinier Levin Blood Glucose Measurement (20:18:53) Blood Glucose: 85 mg/dL ..................... ..................... ..................... ..................... ..................... ..................... ............... [employer] Note From Reinier Levin: Pt seen for [...] deficits. Due to Pt complaint and hypertension [facility] immediately contacted and advised of Pt complaint, presentation and exam findings. [facility] request Pt be sent to ED. EMS called via 911. Blood sugar 85. Further ALS care attempted but Pt refuses due to being insistent on other tasks prior to EMS arrival. Pt accompanied as she ambulates around her home, multiple attempts to get Pt to be seated to allow for further assessment and care unsuccessful. Pt care turned over to [facility] for transport to [facility]. Call closed. [facility] Lab Orders: BMP, serum or plasma: Not Performed Comment: Pt sent to ED via EMS ..................... ..................... ..................... ..................... ..................... ..................... ............... [facility] Consulted: Zen Harvey ..................... ..................... ..................... ..................... ..................... ..................... ............... Disposition: Fulfilled ZEN HARVEY MD [address] [place] [address],[address], [place], [phone], [facility] [employer] [facility] 10/08/2024 20:45:58 10/13/2024 text/html CRC Nurse [...] a fog . [facility] - Pt [...] ..................... ..................... ..................... ..................... ..................... ..................... ............... [employer] Note From Jared Joe: This 78-year-old female [...] edema. Patient is requesting ambulance transport to [facility] for Ativan. Patient's daughter states this is a regular occurrence, isaiah treats her with Ativan and sends her home. 911 was initiated for ambulance transport to [facility] emergency department and SBAR was given to MADHU WRIGHT. ..................... ..................... ..................... ..................... ..................... ..................... ............... [facility] Consulted: Aminata Earl ..................... ..................... ..................... ..................... ..................... ..................... ............... Disposition: Fulfilled Aminata Earl MD [address] [place] [address],[address], [place], [phone], [employer] 10/13/2024 21:44:33 01/15/2025 text/html ROS as noted [...] ..................... ..................... ..................... ..................... ..................... ..................... ............... [employer] Note From Cameron Tobin: Encountered patient conscious, [...] non-distended. Extremities free of trauma and edema. [facility] contacted: states patient should be seen emergently at a local stroke center for evaluation. 911 was arranged by this telegraphic typewriter repairer, on patients behalf. Patient care relinquished to [facility] ALS crew with verbal report given, transport destination [facility]. [facility] Lab Orders: glucose, fingerstick, blood: Performed Comment: 214 ..................... ..................... ..................... ..................... ..................... ..................... ............... [facility] Consulted: Zen Harvey ..................... ..................... ..................... ..................... ..................... ..................... ............... Disposition: Fulfilled ZEN HARVEY MD [address] [facility],[address], [place], [phone], [employer] [employer] 01/15/2025 22:20:55 01/20/2025 text/html CRC Nurse Triage [...] new to facility. patient was sent to [facility] to r/o htn crisis vs stroke. [facility] discharged UTI. currently on antibiotic patient symptoms [...] ..................... ..................... ..................... ..................... ..................... ..................... ............... [employer] Note From Chay Mckeon: Barriers to Care: [...] her anxiety symptoms increased slightly upon this telegraphic typewriter repairer's arrival. [facility] contacted and no further interventions required at time of visit patient to continue current care plan and follow-up with primary care and psychiatry (Appointment tomorrow). No red flags observed, patient educated on self soothing techniques and when to seek urgent/emergent care for new or worsening symptoms. ..................... ..................... ..................... ..................... ..................... ..................... ............... [facility] Consulted: Keysha Gonzales ..................... ..................... ..................... ..................... ..................... ..................... ............... Disposition: Fulfilled Keysha Gonzales MD [address] [place] [address],[address] [facility], [place], [phone], JEMAL LINTON 01/20/2025 21:07:05 OBGyn Episode No OBEpisode recorded.
[2025-03-31] VITALS (9 sets, daily range): BP systolic 144–175; BP diastolic 74–89; PULSE 65–87; RESP 16–19; TEMP 36.3–36.4; O2SAT 98–100; BMI 23.4
--- NOTE | 2025-03-31 06:42 | HO.ANESPROP2 ---
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 (Acute) MDD (major depressive disorder), recurrent episode, moderate (Acute) Gastroparesis (Acute) Diabetes (Acute) RLS (restless legs syndrome) (Acute) Past Medical History Medical History History of electroconvulsive therapy Fall Constipation Tension headache Peripheral neuropathy Akathisia Cerebral microvascular disease RLS (restless legs syndrome) Migraines Diabetes Hypertension Anxiety Functional capacity: independent ambulation Family History Family history of problems with anesthesia: No Surgical History History of Problems with Anesthesia: No Social History Social History Household Members: None Housing: House Are you a primary healthcare science specialist to a significant other at home: No Do you presently have visiting nurse or other home services: No Patient Tobacco Use Status: Former Tobacco user Advance Directives: No Advance Directives Information Provided: Yes service: No Sexual orientation: Straight/Heterosexual Meds Allergies Allergy/AdvReac Type Severity Reaction Status Date / Time ampicillin Allergy Rash Verified 01/24/25 06:18 morphine Allergy Rash Verified 01/24/25 06:18 Penicillins Allergy Rash Verified 01/24/25 06:18 pork derived (porcine) Allergy Vomiting Verified 01/24/25 06:18 Exam Exam Date and Time: 03/07/25 Height,Weight and Vital Signs: Height 4 ft 10 in Weight 112 lb Last Vital Signs Temp 97.4 F 03/31/25 06:30 Pulse 69 03/31/25 06:30 Resp 16 03/31/25 06:30 BP 144/74 H 03/31/25 06:30 Pulse Ox 99 03/31/25 06:30 O2 Del Method Room Air 03/31/25 06:30 Pertinent Lab Results Pertinent Lab Results: Laboratory Tests 03/07/25 07:08 POC Glucose 92 Airway TM Dist: >3cm Neck ROM: Full Loose/Missing/Broken Teeth: No Heart: normal Lungs: normal Other: normal Assessment and Plan Final Anesthetic Review Family History of Problems with Anesthesia: No History of Problems with Anesthesia: No NPO: Yes ASA Class: III Final Preanesthetic Review: No Changes in Pt Med Stat, Meds/Allgs Chart Reviewed, Consent Obtained/Reviewed and Anes Risks/Benef Reviewed Patient Risk: Intermediate Procedure Risk: Intermediate Anesthetic Plan Anesthetic Plan: GA Disposition: Standard PACU
[2025-03-31 06:55] LABS: Glucose, Whole Blood 137 mg/dL (60-115)
--- NOTE | 2025-03-31 07:04 | P.HPSUR_ITS ---
Pre-Procedural Eval Section A - 24 Hr Update-Section A only Date of Service: 03/31/25 The patient is an INPATIENT: No Changes since office visit: No Cold of Flu in the past 2 weeks, No New Medical Problems, No Changes in Medication and No Patient answered all questions The patient has been examined within 24 hours of the surgical procedure. The History & Physical has been completed within 30 days and I have reviewed it.: No Section B - Complete if H&P > 30 days Chief Complaint: depression Details of Present Illness: depressed, anxious Relevant Family History (Specify if Yes): No Relevant Social History: None Present Medications: see Short Stay Collaborative assessment Medical History: No relevant PMH History of Previous Operations: No relevant previous surgery Allergies: Allergies Allergy/AdvReac Type Severity Reaction Status Date / Time ampicillin Allergy Rash Verified 01/24/25 06:18 morphine Allergy Rash Verified 01/24/25 06:18 Penicillins Allergy Rash Verified 01/24/25 06:18 pork derived (porcine) Allergy Vomiting Verified 01/24/25 06:18 Review of Systems Sugical H&P ROS: Negative: Constitution, Cardiovascular, Respiratory, Neurologic al, Hem-Onc, Allergic/Immunologic, Gastrointestinal, Genitourinary, Musculoskeletal, Integumentary, Endocrine and Eyes/Ears/Nose/Throat and Yes, Specify: Psychiatric (depressed and anxious) Exam Surgical H&P Exam: Normal: HEENT, Normal: Heart, Normal: Lungs, Normal: Extremities, Normal: Abdomen, Normal: Skin and Normal: Neurological Plan Diagnosis/Plan: Unchanged I have reviewed the history and physical and performed a pertinent physical examination on my patient. No changes have occurred unless specified. Time Spent With Patient Time: Total time managing care of this patient today ____ minutes.
--- NOTE | 2025-03-31 07:08 | HO.ECTPROC ---
ECT Procedure Note Diagnosis/Treatment Date of Service: 03/31/25 Diagnosis: Major Depressive Disorder Previous ECT Date: 02/14/25 Current Treatment Number: 13 Treatment: Maintenance Interval Clinical Notes: Pt reports overall improvement in her mood with ECT but endorses some depression and significant anxiety. She denies SI. Looking to move feom asstd living Time: Total time managing care of this patient today 30____ minutes. ECT Settings Device: THYMATRON DGx Electrode Placement: Bifrontal Program/Pulse Width: 0.50 Energy Percent: 100 Seizure Duration By EEG (in seconds): 31 Medications Administration General Anesthetic: Etomidate (16) Muscle Relaxant: Succinylcholine (60 mg) Ancillary Medications Cardiovascular Medications: Labetolol (5 mg ) Miscillaneous Medications: Propofol (30 mg) Airway Management Airway Management: Bag Mask Ventilation Treatment Recommendations No Changes Recommended: No change Notes: f/u ect 2 1/2 wks try to collaborate with outpt psych Pt Tolerated Procedure w/o Issue: Yes
== END 2025-03-31 09:26 | disposition home or self-care (01) ==
PROVIDERS: Visit Provider Psychiatry & Neurology Psychiatry
PROC: (CPT 90870; principal; 2025-03-31 07:30)
DX: F33.2 Major depressive disorder, recurrent severe without psychotic features (principal); F41.9 Anxiety disorder, unspecified; I12.9 Hypertensive chronic kidney disease with stage 1 through stage 4 chronic kidney disease, or unspecified chronic kidney disease; E11.22 Type 2 diabetes mellitus with diabetic chronic kidney disease; N18.30 Chronic kidney disease, stage 3 unspecified; E11.43 Type 2 diabetes mellitus with diabetic autonomic (poly)neuropathy; K31.84 Gastroparesis; E11.39 Type 2 diabetes mellitus with other diabetic ophthalmic complication; G25.81 Restless legs syndrome; J44.9 Chronic obstructive pulmonary disease, unspecified; E78.5 Hyperlipidemia, unspecified; R91.8 Other nonspecific abnormal finding of lung field; Z79.51 Long term (current) use of inhaled steroids; Z79.899 Other long term (current) drug therapy; Z79.84 Long term (current) use of oral hypoglycemic drugs; Z88.0 Allergy status to penicillin; Z88.1 Allergy status to other antibiotic agents; Z88.5 Allergy status to narcotic agent; Z88.6 Allergy status to analgesic agent; Z87.891 Personal history of nicotine dependence
CPT/HCPCS: 82947; 90870; J0330; J1920; J2704

== ENCOUNTER → 2025-03-31 05:54 | Outpatient (BNV) | payer OTHER, SELFPAY | PROVIDERS: Visit Provider Psychiatry & Neurology Psychiatry | DX: F33.2 Major depressive disorder, recurrent severe without psychotic features (principal) | CPT/HCPCS: 90870 ==

== ENCOUNTER 2025-04-18 05:37 | Day surgery (SDC) | payer OTHER, SELFPAY ==
[2025-04-18] VITALS (7 sets, daily range): BP systolic 155–173; BP diastolic 80–95; PULSE 73–81; RESP 16; TEMP 36.3–36.5; O2SAT 98–100; BMI 22.6
--- NOTE | 2025-04-18 06:51 | P.CONAN_ITS ---
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 (Acute) MDD (major depressive disorder), recurrent episode, moderate (Acute) Gastroparesis (Acute) Diabetes (Acute) RLS (restless legs syndrome) (Acute) Past Medical History Medical History History of electroconvulsive therapy Fall Constipation Tension headache Peripheral neuropathy Akathisia Cerebral microvascular disease RLS (restless legs syndrome) Migraines Diabetes Hypertension Anxiety Functional capacity: independent ambulation Family History Family history of problems with anesthesia: No Surgical History History of Problems with Anesthesia: No Social History Social History Household Members: None Housing: House Are you a primary field care manager to a significant other at home: No Do you presently have visiting nurse or other home services: No Patient Tobacco Use Status: Former Tobacco user Advance Directives: No Advance Directives Information Provided: Yes service: No Sexual orientation: Straight/Heterosexual Meds Allergies Allergy/AdvReac Type Severity Reaction Status Date / Time ampicillin Allergy Rash Verified 01/24/25 06:18 morphine Allergy Rash Verified 01/24/25 06:18 Penicillins Allergy Rash Verified 01/24/25 06:18 pork derived (porcine) Allergy Vomiting Verified 01/24/25 06:18 Exam Height,Weight and Vital Signs: Height 4 ft 11 in Weight 50.802 kg Airway Mallampati Class: II TM Dist: >3cm Heart: ok Lungs: ok Other: ok Assessment and Plan Assessment Anesthesia Assessment: Anesthesia Plan Discussed and Chart Reviewed Final Anesthetic Review Family History of Problems with Anesthesia: No History of Problems with Anesthesia: No NPO: Yes ASA Class: III Final Preanesthetic Review: No Changes in Pt Med Stat, Meds/Allgs Chart Reviewed, Consent Obtained/Reviewed and Anes Risks/Benef Reviewed Patient Risk: Intermediate Anesthetic Plan Anesthetic Plan: GA Disposition: Standard PACU
--- NOTE | 2025-04-18 07:08 | MHC.SHP ---
Pre-Procedural Eval Section A - 24 Hr Update-Section A only Date of Service: 04/18/25 The patient is an INPATIENT: No Changes since office visit: No Cold of Flu in the past 2 weeks, No New Medical Problems, No Changes in Medication and No Patient answered all questions The patient has been examined within 24 hours of the surgical procedure. The History & Physical has been completed within 30 days and I have reviewed it.: No Section B - Complete if H&P > 30 days Chief Complaint: depression Details of Present Illness: feeling better generally no change medical status Relevant Family History (Specify if Yes): No Relevant Social History: None Present Medications: see Short Stay Collaborative assessment Medical History: No relevant PMH History of Previous Operations: No relevant previous surgery Allergies: Allergies Allergy/AdvReac Type Severity Reaction Status Date / Time ampicillin Allergy Rash Verified 01/24/25 06:18 morphine Allergy Rash Verified 01/24/25 06:18 Penicillins Allergy Rash Verified 01/24/25 06:18 pork derived (porcine) Allergy Vomiting Verified 01/24/25 06:18 Review of Systems Sugical H&P ROS: Negative: Constitution, Cardiovascular, Respiratory, Neurological, Hem-Onc, Allergic/Immunologic, Gastrointestinal, Genitourinary, Musculoskeletal, Integumentary, Endocrine and Eyes/Ears/Nose/Throat and Yes, Specify: Psychiatric (depressed and anxious) Exam Surgical H&P Exam: Normal: HEENT, Normal: Heart, Normal: Lungs, Normal: Extremities, Normal: Abdomen, Normal: Skin and Normal: Neurological Plan Diagnosis/Plan: Unchanged I have reviewed the history and physical and performed a pertinent physical examination on my patient. No changes have occurred unless specified. Time Spent With Patient Time: Total time managing care of this patient today ____ minutes.
--- NOTE | 2025-04-18 07:23 | HO.ECTPROC ---
ECT Procedure Note Diagnosis/Treatment Date of Service: 04/18/25 Diagnosis: Major Depressive Disorder Previous ECT Date: 03/31/25 Current Treatment Number: 14 Treatment: Maintenance Interval Clinical Notes: Pt reports overall improvement in her mood with ECT but endorses some depression and significant anxiety. She denies SI. Time: Total time managing care of this patient today ____ minutes. ECT Settings Device: THYMATRON DGx Electrode Placement: Bifrontal Program/Pulse Width: 0.50 Energy Percent: 100 Seizure Duration By EEG (in seconds): 24 Medications Administration General Anesthetic: Etomidate (14) Muscle Relaxant: Succinylcholine (60 mg) Ancillary Medications Cardiovascular Medications: Labetolol (5 mg ) Miscillaneous Medications: Propofol (30 mg) Airway Management Airway Management: Bag Mask Ventilation Treatment Recommendations No Changes Recommended: No change Notes: f/u ect 2 1/2 wks try to collaborate with outpt psych Pt Tolerated Procedure w/o Issue: Yes
== END 2025-04-18 09:11 | disposition home or self-care (01) ==
PROVIDERS: Visit Provider Psychiatry & Neurology Psychiatry
PROC: (CPT 90870; principal; 2025-04-18 07:30)
DX: F33.2 Major depressive disorder, recurrent severe without psychotic features (principal); F41.9 Anxiety disorder, unspecified; I12.9 Hypertensive chronic kidney disease with stage 1 through stage 4 chronic kidney disease, or unspecified chronic kidney disease; E11.22 Type 2 diabetes mellitus with diabetic chronic kidney disease; N18.30 Chronic kidney disease, stage 3 unspecified; E11.43 Type 2 diabetes mellitus with diabetic autonomic (poly)neuropathy; E11.39 Type 2 diabetes mellitus with other diabetic ophthalmic complication; G25.81 Restless legs syndrome; K31.84 Gastroparesis; J44.9 Chronic obstructive pulmonary disease, unspecified; E78.5 Hyperlipidemia, unspecified; R91.8 Other nonspecific abnormal finding of lung field; Z79.51 Long term (current) use of inhaled steroids; Z79.84 Long term (current) use of oral hypoglycemic drugs; Z79.899 Other long term (current) drug therapy; Z88.0 Allergy status to penicillin; Z88.1 Allergy status to other antibiotic agents; Z88.5 Allergy status to narcotic agent; Z87.81 Personal history of (healed) traumatic fracture
CPT/HCPCS: 90870; J0330; J1920; J2704

== ENCOUNTER → 2025-04-18 05:37 | Outpatient (BNV) | payer OTHER, SELFPAY | PROVIDERS: Visit Provider Psychiatry & Neurology Psychiatry | DX: F33.1 Major depressive disorder, recurrent, moderate (principal) | CPT/HCPCS: 90870 ==